=== PATIENT | female | born 1960 | race Caucasian/White ===

== ENCOUNTER 2023-02-28 18:31 | Outpatient (RCR) | payer BC, MEDICARE, SELFPAY | END 2023-03-24 23:59 | disposition home or self-care (01) | LOC: MM 18:31 | PROVIDERS: PCP Internal Medicine; Visit Provider Internal Medicine | DX: Z51.81 Encounter for therapeutic drug level monitoring (principal); Z79.01 Long term (current) use of anticoagulants | CPT/HCPCS: 85610; G0463 ==

== ENCOUNTER 2023-03-29 10:26 | Outpatient (RCR) | payer BC, MEDICARE, SELFPAY | END 2023-04-24 17:12 | disposition home or self-care (01) | LOC: MM 10:26 | PROVIDERS: PCP Internal Medicine; Visit Provider Internal Medicine | DX: Z51.81 Encounter for therapeutic drug level monitoring (principal); Z79.01 Long term (current) use of anticoagulants | CPT/HCPCS: 85610; G0463 ==

== ENCOUNTER 2023-04-25 09:53 | Outpatient (RCR) | payer BC, MEDICARE, SELFPAY | END 2023-05-25 17:45 | disposition home or self-care (01) | LOC: MM 09:53 | PROVIDERS: PCP Internal Medicine; Visit Provider Internal Medicine | DX: Z51.81 Encounter for therapeutic drug level monitoring (principal); Z79.01 Long term (current) use of anticoagulants | CPT/HCPCS: 85610; G0463 ==

== ENCOUNTER 2023-05-26 10:40 | Outpatient (RCR) | payer BC, MEDICARE, SELFPAY | END 2023-06-23 17:05 | disposition home or self-care (01) | LOC: MM 10:40 | PROVIDERS: PCP Internal Medicine; Visit Provider Internal Medicine | DX: Z51.81 Encounter for therapeutic drug level monitoring (principal); Z79.01 Long term (current) use of anticoagulants | CPT/HCPCS: 85610; G0463 ==

== ENCOUNTER 2023-06-16 19:31 | Emergency (ER) | payer BC, MEDICARE, SELFPAY ==
[2023-06-16 19:36] VITALS: BP 139/98; PULSE 91; RESP 16; TEMP 36.4; O2SAT 100; BMI 26.9
--- NOTE | 2023-06-16 19:44 | ED.EPISTAXI1 ---
HPI - Epistaxis General Chief Complaint: Epistaxis Stated Complaint: NOSEBLEED <2 HRS ON BLOOD THINNER Time Seen by Provider: 06/16/23 19:37 Source: patient Mode of arrival: walk-in History of Present Illness HPI Narrative: patient takes coumadin. Past history of nose bleeds. complains of runny nose from allergies and sneezing. Nose started bleeding about 2 hours ago. Started right nostril now coming through both. She has also swallowed blood and then vomited. No abdominal pain or headache Location: Yes right nares Related Data Home Medications Medication Instructions Recorded Confirmed acyclovir 400 mg tablet 400 mg PO .qhs 06/16/23 06/16/23 amitriptyline 100 mg tablet 100 mg PO .qhs 06/16/23 06/16/23 aripiprazole 10 mg tablet 10 mg PO .qhs 06/16/23 06/16/23 atorvastatin 10 mg tablet 10 mg PO QDAY 06/16/23 06/16/23 biotin 10,000 mcg-keratin 100 mg 1 tab PO QDAY 06/16/23 06/16/23 tablet (Biotin Plus Keratin) vuduruybkc-weylljlqefabo-ghxlzioe 1 cap PO Q6H PRN pain 06/16/23 06/16/23 50 mg-300 mg-40 mg capsule cholecalciferol (vitamin D3) 50 50 mcg PO DAILY 06/16/23 06/16/23 mcg (2,000 unit) capsule (Vitamin D3) coenzyme Q10 100 mg capsule (Co 100 mg PO BID 06/16/23 06/16/23 Q-10) cyanocobalamin (vitamin B-12) 1,000 mcg IM .monthly 06/16/23 06/16/23 1,000 mcg/mL injection solution cyclobenzaprine 10 mg tablet 10 mg PO Q12H PRN muscle spasm 06/16/23 06/16/23 fluticasone propionate 220 2 puff inhalation Q12H 06/16/23 06/16/23 mcg/actuation HFA aerosol inhaler (Flovent HFA) folic acid 400 mcg tablet 400 mcg PO DAILY 06/16/23 06/16/23 fremanezumab-vfrm 225 mg/1.5 mL 225 mg subcut .monthly 06/16/23 06/16/23 subcutaneous auto-injector (Ajovy) hydrochlorothiazide 12.5 mg tablet 12.5 mg PO QDAY 06/16/23 06/16/23 hydrocodone 5 mg-acetaminophen 325 1 tab PO Q12H PRN pain 06/16/23 06/16/23 mg tablet hydroxyzine HCl 25 mg tablet 25 mg PO .qhs 06/16/23 06/16/23 levothyroxine 125 mcg tablet 125 mcg PO .every morning 06/16/23 06/16/23 linaclotide 72 mcg capsule 72 mcg PO QDAY 06/16/23 06/16/23 (Linzess) lisinopril 5 mg tablet 5 mg PO QDAY 06/16/23 06/16/23 magnesium 200 mg tablet 400 mg PO DAILY 06/16/23 06/16/23 melatonin 10 mg capsule 10 mg PO DAILY 06/16/23 06/16/23 montelukast 10 mg tablet 10 mg PO QDAY 06/16/23 06/16/23 omeprazole 40 mg capsule,delayed 40 mg PO BID 06/16/23 06/16/23 release phentermine 37.5 mg tablet 37.5 mg PO QDAY 06/16/23 06/16/23 potassium chloride 10 mEq 20 meq PO BID 06/16/23 06/16/23 tablet,extended release(part/cryst) prasterone (dhea) 25 mg capsule 25 mg PO BID 06/16/23 06/16/23 (DHEA) pseudoephedrine HCl 30 mg tablet 30 mg PO QDAY 06/16/23 06/16/23 vilazodone 40 mg tablet 40 mg PO QDAY 06/16/23 06/16/23 vit C 250 mg-vit E 90 mg-zinc 40 1 tab PO BID 06/16/23 06/16/23 mg-copper 1 fr-srfvww-pbctve capsule (PreserVision AREDS-2) warfarin 1 mg tablet 1 mg PO .qtuesday 06/16/23 06/16/23 warfarin 2 mg tablet 2 mg PO QDAY 06/16/23 06/16/23 zinc 50 mg capsule 50 mg PO DAILY 06/16/23 06/16/23 Allergies Allergy/AdvReac Type Severity Reaction Status Date / Time Penicillins AdvReac Severe Anaphylaxis Verified 06/16/23 19:45 acetaminophen [From Percocet] AdvReac Intermediate Vomiting Verified 06/16/23 19:45 cephalexin [From Keflex] AdvReac Intermediate Hives Verified 06/16/23 19:45 doxycycline AdvReac Intermediate Hives Verified 06/16/23 19:45 iodine AdvReac Intermediate Hives Verified 06/16/23 19:45 morphine AdvReac Intermediate Vomiting Verified 06/16/23 19:45 oxycodone [From Percocet] AdvReac Intermediate Vomiting Verified 06/16/23 19:45 ciprofloxacin [From Cipro] AdvReac Mild Hives Verified 06/16/23 19:45 novicane AdvReac Intermediate Migraine Uncoded 06/16/23 19:45 Review of Systems ROS Status of ROS 10 or more systems reviewed and unremarkable except as noted in history and below [facility] PFS Social History Smoking status: Former smoker Exam Constitutional Vital Signs, click to edit/add: Last Vital Signs Temp 97.6 F 06/16/23 19:36 Pulse 88 06/16/23 21:25 Resp 16 06/16/23 21:25 BP 139/78 06/16/23 21:25 Pulse Ox 100 06/16/23 21:25 O2 Del Method Room Air 06/16/23 21:25 Common normals: no apparent distress, average body habitus, oriented x3, no limitations, healthy appearing and alert HENMT Other: nasal pincher in place Eye Common normals: EOMs intact bilaterally and conjunctivae normal Respiratory Common normals: normal respiratory effort, no retractions, no use of accessory muscles and clear to auscultation bilaterally Cardio Common normals: regular rate, regular rhythm, S1 normal heart sound and S2 normal heart sound Extremity Common normals: normal to inspection and full ROM Neuro Common normals: oriented x3, CN's II-XII intact bilaterally, moves all extremities, no focal motor deficits and no sensory deficits noted Psych Appearance: grossly normal Course Vital Signs Vital signs: Vital Signs Temperature 97.6 F 06/16/23 19:36 Pulse Rate 91 H 06/16/23 19:36 Respiratory Rate 16 06/16/23 19:36 Blood Pressure 139/98 H 06/16/23 19:36 Pulse Oximetry 100 06/16/23 19:36 Oxygen Delivery Method Room Air 06/16/23 19:36 Temperature 97.6 F 06/16/23 19:36 Pulse Rate 88 06/16/23 21:25 Respiratory Rate 16 06/16/23 21:25 Blood Pressure 139/78 06/16/23 21:25 Pulse Oximetry 100 06/16/23 21:25 Oxygen Delivery Method Room Air 06/16/23 21:25 MDM - Epistaxis MDM Narrative Medical decision making narrative: patient presents with acute nose bleed. Rhino rocket placed. Bleeding controlled. Labs demonstrated therapeutic INR of 2.36. She was also found to be hyponatremic. She does take HCTZ. Advised to have her sodium level rechecked early next week by her PCP Lab Data Labs: Lab Results 06/16/23 Range/Units 19:55 WBC 7.1 (4.0-11.0) 10^3/uL RBC 3.53 L (4.20-5.40) 10^6/uL Hgb 9.9 L (12.0-16.0) g/dL Hct 31.2 L (36.0-48.0) % MCV 88.4 (81.0-99.0) fL MCH 28.0 (26.7-34.0) pg MCHC 31.7 (29.9-35.2) g/dL RDW 13.4 (11.0-15.0) % Plt Count 378 (150-450) 10^3/uL MPV 8.7 L (9.5-13.5) fL Neut % (Auto) 74.9 (43.0-75.0) % Lymph % (Auto) 12.1 L (20.5-60.0) % [place] % (Auto) 9.2 (1.7-12.0) % Eos % (Auto) 2.1 (0.9-7.0) % Baso % (Auto) 1.3 (0.2-2.0) % Neut # (Auto) 5.3 (1.4-6.5) 10^3/uL Lymph # (Auto) 0.9 L (1.2-3.8) 10^3/uL [place] # (Auto) 0.7 (0.3-0.8) 10^3/uL Eos # (Auto) 0.2 (0.0-0.7) 10^3/uL Baso # (Auto) 0.1 (0.0-0.1) 10^3/uL Abs Immat Gran (auto) 0.03 (0.00-0.03) 10^3/uL Imm/Tot Granulo (auto) 0.4 (0.0-0.5) % PT 23.8 H (9.0-11.6) sec INR 2.36 Sodium 125 L (136-145) mmol/L Potassium 3.3 L (3.5-5.1) mmol/L Chloride 91 L (98-107) mmol/L Carbon Dioxide 29.6 (21.0-32.0) mmol/L Anion Gap 7.7 BUN 9.0 (7.0-18.0) mg/dL Creatinine 0.76 (0.55-1.02) mg/dL Est GFR ( Amer) >60 (>=60) Est GFR (Non-Af Amer) >60 (>=60) BUN/Creatinine Ratio 11.8 Glucose 95 (74-106) mg/dL Calcium 8.4 L (8.5-10.1) mg/dL Discharge Plan Discharge Chief Complaint: Epistaxis Clinical Impression: Epistaxis, Hyponatremia Patient Disposition: Home, Self-Care Prescriptions / Home Meds: No Action warfarin 2 mg tablet 2 mg PO QDAY Rx Instructions: 2mg everyday, 3mg every Monday warfarin 1 mg tablet 1 mg PO .qt Rx Instructions: Pt takes 1mg with 2mg for total of 3mg every Monday acyclovir 400 mg tablet 400 mg PO .qhs amitriptyline 100 mg tablet 100 mg PO .qhs aripiprazole 10 mg tablet 10 mg PO .qhs atorvastatin 10 mg tablet 10 mg PO QDAY uddwqimgwz-wrkaambuoqukj-oulw 50-300-40 mg capsule 1 cap PO Q6H PRN (Reason: pain) cyanocobalamin (vitamin B-12) 1,000 mcg/mL solution 1,000 mcg IM .monthly cyclobenzaprine 10 mg tablet 10 mg PO Q12H PRN (Reason: muscle spasm) fluticasone propionate [Flovent HFA] 220 mcg/actuation HFA aerosol inhaler 2 puff INHALATION Q12H Ajovy Autoinjector 225 mg/1.5 mL auto-injector 225 mg SUBCUT .monthly hydrochlorothiazide 12.5 mg tablet 12.5 mg PO QDAY hydrocodone-acetaminophen 5-325 mg tablet 1 tab PO Q12H PRN (Reason: pain) hydroxyzine HCl 25 mg tablet 25 mg PO .qhs levothyroxine 125 mcg tablet 125 mcg PO .every morning Linzess 72 mcg capsule 72 mcg PO QDAY Patient Comments: on empty stomach before a meal lisinopril 5 mg tablet 5 mg PO QDAY montelukast 10 mg tablet 10 mg PO QDAY omeprazole 40 mg capsule,delayed release(DR/EC) 40 mg PO BID phentermine 37.5 mg tablet 37.5 mg PO QDAY potassium chloride 10 mEq tablet,ER particles/crystals 20 meq PO BID vilazodone 40 mg tablet 40 mg PO QDAY Biotin Plus Keratin 10,000-100 mcg-mg tablet 1 tab PO QDAY Patient Comments: with supper folic acid 400 mcg tablet 400 mcg PO DAILY cholecalciferol (vitamin D3) [Vitamin D3] 50 mcg (2,000 unit) capsule 50 mcg PO DAILY melatonin 10 mg capsule 10 mg PO DAILY magnesium 200 mg tablet 400 mg PO DAILY PreserVision AREDS-2 250-90-40-1 mg capsule 1 tab PO BID coenzyme Q10 [Co Q-10] 100 mg capsule 100 mg PO BID prasterone (dhea) [DHEA] 25 mg capsule 25 mg PO BID zinc 50 mg capsule 50 mg PO DAILY pseudoephedrine HCl 30 mg tablet 30 mg PO QDAY Instructions: Nosebleed (ED), Hyponatremia (ED) Additional Instructions: have packing removed in 2 days. have your sodium level rechecked early next week Stand Alone Forms: Portal Instructions Referrals: Shaikh John MD [Primary Care Provider] - 1 week Procedures ED Procedure Instructions Procedures Procedures: nose bleed. nasal packing with Rhinorocket placed right nostril. Successful on first attempt. Patient monitored in the department for one hour after procedure and bleeding controlled. Discharged home. Advised to have packing removed in a couple of days as she is on coumadin
[2023-06-16 20:05] LABS: Basophils Absolute Auto 0.1 10^3/uL (0.0-0.1); Basophils Percent Auto 1.3 % (0.2-2.0); Eosinophils Absolute Auto 0.2 10^3/uL (0.0-0.7); Eosinophils Percent Auto 2.1 % (0.9-7.0); Hematocrit 31.2 % (36.0-48.0); Hemoglobin 9.9 g/dL (12.0-16.0); Immature Granulocytes Abs Auto 0.03 10^3/uL (0.00-0.03); Immature Granulocytes Pct Auto 0.4 % (0.0-0.5); Lymphocytes Absolute Auto 0.9 10^3/uL (1.2-3.8); Lymphocytes Percent Auto 12.1 % (20.5-60.0); Mean Corpuscular HGB Conc 31.7 g/dL (29.9-35.2); Mean Corpuscular Volume 88.4 fL (81.0-99.0); Mean Platelet Volume 8.7 fL (9.5-13.5); Monocytes Absolute Auto 0.7 10^3/uL (0.3-0.8); Monocytes Percent Auto 9.2 % (1.7-12.0); Neutrophils Absolute Auto 5.3 10^3/uL (1.4-6.5); Neutrophils Percent Auto 74.9 % (43.0-75.0); Platelet Count 378 10^3/uL (150-450); Red Blood Count 3.53 10^6/uL (4.20-5.40); Red Cell Distribution Width 13.4 % (11.0-15.0); White Blood Count 7.1 10^3/uL (4.0-11.0)
[2023-06-16 20:11] LABS: Anion Gap 7.7; BUN Creatinine Ratio 11.8; Calcium 8.4 mg/dL (8.5-10.1); Carbon Dioxide 29.6 mmol/L (21.0-32.0); Chloride 91 mmol/L (98-107); Estimated GFR (African America >60 (>=60); Estimated GFR (Non-African Ame >60 (>=60); Glucose 95 mg/dL (74-106); Potassium 3.3 mmol/L (3.5-5.1); Sodium 125 mmol/L (136-145)
[2023-06-16 21:02] LABS: INR 2.36; Prothrombin Time 23.8 sec (9.0-11.6)
--- NOTE | 2023-06-16 21:22 | PC.NURSE ---
Nose clamp removed and a 5.5 cm anterior Rapid Rhino nasal pack inserted by Dr Michelle. Pt tolerated procedure.
[2023-06-16 21:25] VITALS: BP 139/78; PULSE 88; RESP 16; O2SAT 100
[2023-06-16] MEDS: SULFAMETHOXAZOLE/TRIMETHOPRIM 800-160 MG TABLET 2 TAB PO (22:34)
[2023-06-16] MEDS: SULFAMETHOXAZOLE/TRIMETHOPRIM 800-160 MG TABLET 1 TAB PO (22:34)
== END 2023-06-16 22:36 | disposition home or self-care (01) ==
PROVIDERS: Emergency Provider Internal Medicine; PCP Internal Medicine
DX: R04.0 Epistaxis (principal); E87.1 Hypo-osmolality and hyponatremia; Z79.899 Other long term (current) drug therapy; Z79.01 Long term (current) use of anticoagulants; Z79.890 Hormone replacement therapy; Z87.891 Personal history of nicotine dependence
CPT/HCPCS: 30901; 36415; 80048; 85025; 85610; 99283

== ENCOUNTER 2023-06-18 11:05 | Emergency (ER) | payer BC, MEDICARE, SELFPAY ==
[2023-06-18 11:10] VITALS: BP 129/80; PULSE 127; RESP 16; TEMP 36.4; O2SAT 98; BMI 26.9
--- NOTE | 2023-06-18 11:18 | ED.GENADUL1 ---
HPI - General Adult General Chief complaint: Epistaxis Stated complaint: OTHER Time Seen by Provider: 06/18/23 11:15 Source: patient Mode of arrival: walk-in Limitations: no limitations History of Present Illness HPI narrative: 63-year-old female presented to have her right nasal packing removed. She was here a few days ago for nosebleed and was told to come back today to have it removed. She's had no problems. She does feel pressure but she's had no bleeding. No fever. Related Data Home Medications Medication Instructions Recorded Confirmed acyclovir 400 mg tablet 400 mg PO .qhs 06/16/23 06/16/23 amitriptyline 100 mg tablet 100 mg PO .qhs 06/16/23 06/16/23 aripiprazole 10 mg tablet 10 mg PO .qhs 06/16/23 06/16/23 atorvastatin 10 mg tablet 10 mg PO QDAY 06/16/23 06/16/23 biotin 10,000 mcg-keratin 100 mg 1 tab PO QDAY 06/16/23 06/16/23 tablet (Biotin Plus Keratin) qpjkfsbgmr-kgahlcvdmrvxj-jrqozlxa 1 cap PO Q6H PRN pain 06/16/23 06/16/23 50 mg-300 mg-40 mg capsule cholecalciferol (vitamin D3) 50 50 mcg PO DAILY 06/16/23 06/16/23 mcg (2,000 unit) capsule (Vitamin D3) coenzyme Q10 100 mg capsule (Co 100 mg PO BID 06/16/23 06/16/23 Q-10) cyanocobalamin (vitamin B-12) 1,000 mcg IM .monthly 06/16/23 06/16/23 1,000 mcg/mL injection solution cyclobenzaprine 10 mg tablet 10 mg PO Q12H PRN muscle spasm 06/16/23 06/16/23 fluticasone propionate 220 2 puff inhalation Q12H 06/16/23 06/16/23 mcg/actuation HFA aerosol inhaler (Flovent HFA) folic acid 400 mcg tablet 400 mcg PO DAILY 06/16/23 06/16/23 fremanezumab-vfrm 225 mg/1.5 mL 225 mg subcut .monthly 06/16/23 06/16/23 subcutaneous auto-injector (Ajovy) hydrochlorothiazide 12.5 mg tablet 12.5 mg PO QDAY 06/16/23 06/16/23 hydrocodone 5 mg-acetaminophen 325 1 tab PO Q12H PRN pain 06/16/23 06/16/23 mg tablet hydroxyzine HCl 25 mg tablet 25 mg PO .qhs 06/16/23 06/16/23 levothyroxine 125 mcg tablet 125 mcg PO .every morning 06/16/23 06/16/23 linaclotide 72 mcg capsule 72 mcg PO QDAY 06/16/23 06/16/23 (Linzess) lisinopril 5 mg tablet 5 mg PO QDAY 06/16/23 06/16/23 magnesium 200 mg tablet 400 mg PO DAILY 06/16/23 06/16/23 melatonin 10 mg capsule 10 mg PO DAILY 06/16/23 06/16/23 montelukast 10 mg tablet 10 mg PO QDAY 06/16/23 06/16/23 omeprazole 40 mg capsule,delayed 40 mg PO BID 06/16/23 06/16/23 release phentermine 37.5 mg tablet 37.5 mg PO QDAY 06/16/23 06/16/23 potassium chloride 10 mEq 20 meq PO BID 06/16/23 06/16/23 tablet,extended release(part/cryst) prasterone (dhea) 25 mg capsule 25 mg PO BID 06/16/23 06/16/23 (DHEA) pseudoephedrine HCl 30 mg tablet 30 mg PO QDAY 06/16/23 06/16/23 vilazodone 40 mg tablet 40 mg PO QDAY 06/16/23 06/16/23 vit C 250 mg-vit E 90 mg-zinc 40 1 tab PO BID 06/16/23 06/16/23 mg-copper 1 hu-hgffcs-dojvsk capsule (PreserVision AREDS-2) warfarin 1 mg tablet 1 mg PO .qtuesday 06/16/23 06/16/23 warfarin 2 mg tablet 2 mg PO QDAY 06/16/23 06/16/23 zinc 50 mg capsule 50 mg PO DAILY 06/16/23 06/16/23 Allergies Allergy/AdvReac Type Severity Reaction Status Date / Time Penicillins AdvReac Severe Anaphylaxis Verified 06/16/23 19:45 acetaminophen [From Percocet] AdvReac Intermediate Vomiting Verified 06/16/23 19:45 cephalexin [From Keflex] AdvReac Intermediate Hives Verified 06/16/23 19:45 doxycycline AdvReac Intermediate Hives Verified 06/16/23 19:45 iodine AdvReac Intermediate Hives Verified 06/16/23 19:45 morphine AdvReac Intermediate Vomiting Verified 06/16/23 19:45 oxycodone [From Percocet] AdvReac Intermediate Vomiting Verified 06/16/23 19:45 ciprofloxacin [From Cipro] AdvReac Mild Hives Verified 06/16/23 19:45 novicane AdvReac Intermediate Migraine Uncoded 06/16/23 19:45 Review of Systems ROS Narrative A ten point review of systems is negative except as noted above. PFSH PFSH Social History Smoking status: Former smoker Exam Narrative Exam Narrative: Nurses note and vital signs reviewed and patient is not hypoxic. General: The patient appears well and in no apparent distress. Patient is resting comfortably on cart. Skin: Warm, dry, no pallor noted. There is no rash noted. Head: Normocephalic, atraumatic Eye: Normal conjunctiva, no drainage Ears, Nose, Mouth, and Throat: oral mucosa is moist. inflatable nasal packing present in the right nare Cardiovascular: Regular Rate and Rhythm Respiratory: Patient is in no distress, no accessory muscle use Back: non-tender GI: nontender Musculoskeletal: The patient has no evidence of calf tenderness, no pitting edema, symmetrical pulses noted bilaterally Neurological: A&O, normal speech Psychiatric: Cooperative Constitutional Vital Signs, click to edit/add: Last Vital Signs Temp 97.5 F L 06/18/23 11:10 Pulse 127 H 06/18/23 11:10 Resp 16 06/18/23 11:10 BP 129/80 06/18/23 11:10 Pulse Ox 98 06/18/23 11:10 O2 Del Method Room Air 06/18/23 11:10 Course Vital Signs Vital signs: Vital Signs Temperature 97.5 F L 06/18/23 11:10 Pulse Rate 127 H 06/18/23 11:10 Respiratory Rate 16 06/18/23 11:10 Blood Pressure 129/80 06/18/23 11:10 Pulse Oximetry 98 06/18/23 11:10 Oxygen Delivery Method Room Air 06/18/23 11:10 Temperature 97.5 F L 06/18/23 11:10 Pulse Rate 127 H 09/24/23 11:10 Respiratory Rate 16 06/18/23 11:10 Blood Pressure 129/80 06/18/23 11:10 Pulse Oximetry 98 06/18/23 11:10 Oxygen Delivery Method Room Air 06/18/23 11:10 Medical Decision Making MDM Narrative Medical decision making narrative: I've removed the nasal packing and she's had no further bleeding and is released home. Differential Diagnosis Differential Diagnosis: packing removal Medical Records Medical records reviewed: Yes I reviewed the patient's medical records Discharge Plan Discharge Chief Complaint: Epistaxis Clinical Impression: Encounter for removal of nasal packing Patient Disposition: Home, Self-Care Time of Disposition Decision: :27 Condition: Good Mode of Transportation: Private Vehicle Prescriptions / Home Meds: No Action warfarin 2 mg tablet 2 mg PO QDAY Rx Instructions: 2mg everyday, 3mg every Monday warfarin 1 mg tablet 1 mg PO .qt Rx Instructions: Pt takes 1mg with 2mg for total of 3mg every Monday acyclovir 400 mg tablet 400 mg PO .qhs amitriptyline 100 mg tablet 100 mg PO .qhs aripiprazole 10 mg tablet 10 mg PO .qhs atorvastatin 10 mg tablet 10 mg PO QDAY hofqsgfqmx-wogdydwxifzgk-jlsn 50-300-40 mg capsule 1 cap PO Q6H PRN (Reason: pain) cyanocobalamin (vitamin B-12) 1,000 mcg/mL solution 1,000 mcg IM .monthly cyclobenzaprine 10 mg tablet 10 mg PO Q12H PRN (Reason: muscle spasm) fluticasone propionate [Flovent HFA] 220 mcg/actuation HFA aerosol inhaler 2 puff INHALATION Q12H Ajovy Autoinjector 225 mg/1.5 mL auto-injector 225 mg SUBCUT .monthly hydrochlorothiazide 12.5 mg tablet 12.5 mg PO QDAY hydrocodone-acetaminophen 5-325 mg tablet 1 tab PO Q12H PRN (Reason: pain) hydroxyzine HCl 25 mg tablet 25 mg PO .qhs levothyroxine 125 mcg tablet 125 mcg PO .every morning Linzess 72 mcg capsule 72 mcg PO QDAY Patient Comments: on empty stomach before a meal lisinopril 5 mg tablet 5 mg PO QDAY montelukast 10 mg tablet 10 mg PO QDAY omeprazole 40 mg capsule,delayed release(DR/EC) 40 mg PO BID phentermine 37.5 mg tablet 37.5 mg PO QDAY potassium chloride 10 mEq tablet,ER particles/crystals 20 meq PO BID vilazodone 40 mg tablet 40 mg PO QDAY Biotin Plus Keratin 10,000-100 mcg-mg tablet 1 tab PO QDAY Patient Comments: with supper folic acid 400 mcg tablet 400 mcg PO DAILY cholecalciferol (vitamin D3) [Vitamin D3] 50 mcg (2,000 unit) capsule 50 mcg PO DAILY melatonin 10 mg capsule 10 mg PO DAILY magnesium 200 mg tablet 400 mg PO DAILY PreserVision AREDS-2 250-90-40-1 mg capsule 1 tab PO BID coenzyme Q10 [Co Q-10] 100 mg capsule 100 mg PO BID prasterone (dhea) [DHEA] 25 mg capsule 25 mg PO BID zinc 50 mg capsule 50 mg PO DAILY pseudoephedrine HCl 30 mg tablet 30 mg PO QDAY Instructions: Nosebleed (ED) Stand Alone Forms: Portal Instructions Referrals: Shaikh John MD [Primary Care Provider] - 1 week
[2023-06-18 11:46] VITALS: BP 139/78; PULSE 98; RESP 16; TEMP 36.8; O2SAT 98
== END 2023-06-18 11:47 | disposition home or self-care (01) ==
PROVIDERS: Emergency Provider Emergency Medicine; PCP Internal Medicine
DX: Z46.89 Encounter for fitting and adjustment of other specified devices (principal); Z79.899 Other long term (current) drug therapy; Z79.01 Long term (current) use of anticoagulants; Z87.891 Personal history of nicotine dependence
CPT/HCPCS: 99282

== ENCOUNTER 2023-06-26 03:41 | Outpatient (RCR) | payer BC, MEDICARE, SELFPAY | END 2023-07-25 17:47 | disposition home or self-care (01) | LOC: MM 03:41 | PROVIDERS: PCP Internal Medicine; Visit Provider Internal Medicine | DX: Z51.81 Encounter for therapeutic drug level monitoring (principal); Z79.01 Long term (current) use of anticoagulants | CPT/HCPCS: 85610; G0463 ==

== ENCOUNTER 2023-07-10 12:16 | Outpatient (OUT) | payer BC, MEDICARE, SELFPAY ==
--- NOTE | 2023-07-10 13:30 | PM.CN ---
Consult Note: HPI Data of Consult Patient: known to practice within the last 3 years Consult date: 07/10/23 Requesting Physician: Meet Harp MD Primary Care Provider: [place] DO Consult Narrative Reason for consult: midback pain Narrative: 63yof who presents for assessment. Worsening midback pain that radiates laterally. Previously underwent a thoracic trigger point injection, which provided no relief. No advanced imaging available for review. Continues in chiropractic therapy and provider directed home exercise program for >6 weeks, with limited benefit. Denies adverse med side effects. Utilizes norco and flexeril, with some relief. cc:: CC: Meet Harp MD Review of Systems ROS Status of ROS 10 or more systems reviewed and unremarkable except as noted in history and below PFSH PFSH Social History Smoking status: Former smoker Meds Home Medications and Allergies Home Medications Medication Instructions Recorded Confirmed Type acyclovir 400 mg tablet 400 mg PO .qhs 06/16/23 06/16/23 History amitriptyline 100 mg tablet 100 mg PO .qhs 06/16/23 06/16/23 History aripiprazole 10 mg tablet 10 mg PO .qhs 06/16/23 06/16/23 History atorvastatin 10 mg tablet 10 mg PO QDAY 06/16/23 06/16/23 History biotin 10,000 mcg-keratin 100 mg 1 tab PO QDAY 06/16/23 06/16/23 History tablet (Biotin Plus Keratin) grmhhicmjb-kdaqankwmdefz-dqenpjda 1 cap PO Q6H PRN pain 06/16/23 06/16/23 History 50 mg-300 mg-40 mg capsule cholecalciferol (vitamin D3) 50 50 mcg PO DAILY 06/16/23 06/16/23 History mcg (2,000 unit) capsule (Vitamin D3) coenzyme Q10 100 mg capsule (Co 100 mg PO BID 06/16/23 06/16/23 History Q-10) cyanocobalamin (vitamin B-12) 1,000 mcg IM .monthly 06/16/23 06/16/23 History 1,000 mcg/mL injection solution cyclobenzaprine 10 mg tablet 10 mg PO Q12H PRN muscle spasm 06/16/23 06/16/23 History fluticasone propionate 220 2 puff inhalation Q12H 06/16/23 06/16/23 History mcg/actuation HFA aerosol inhaler (Flovent HFA) folic acid 400 mcg tablet 400 mcg PO DAILY 06/16/23 06/16/23 History fremanezumab-vfrm 225 mg/1.5 mL 225 mg subcut .monthly 06/16/23 06/16/23 History subcutaneous auto-injector (Ajovy) hydrochlorothiazide 12.5 mg tablet 12.5 mg PO QDAY 06/16/23 06/16/23 History hydrocodone 5 mg-acetaminophen 325 1 tab PO Q12H PRN pain 06/16/23 06/16/23 History mg tablet hydroxyzine HCl 25 mg tablet 25 mg PO .qhs 06/16/23 06/16/23 History levothyroxine 125 mcg tablet 125 mcg PO .every morning 06/16/23 06/16/23 History linaclotide 72 mcg capsule 72 mcg PO QDAY 06/16/23 06/16/23 History (Linzess) lisinopril 5 mg tablet 5 mg PO QDAY 06/16/23 06/16/23 History magnesium 200 mg tablet 400 mg PO DAILY 06/16/23 06/16/23 History melatonin 10 mg capsule 10 mg PO DAILY 06/16/23 06/16/23 History montelukast 10 mg tablet 10 mg PO QDAY 06/16/23 06/16/23 History omeprazole 40 mg capsule,delayed 40 mg PO BID 06/16/23 06/16/23 History release phentermine 37.5 mg tablet 37.5 mg PO QDAY 06/16/23 06/16/23 History potassium chloride 10 mEq 20 meq PO BID 06/16/23 06/16/23 History tablet,extended release(part/cryst) prasterone (dhea) 25 mg capsule 25 mg PO BID 06/16/23 06/16/23 History (DHEA) pseudoephedrine HCl 30 mg tablet 30 mg PO QDAY 06/16/23 06/16/23 History vilazodone 40 mg tablet 40 mg PO QDAY 06/16/23 06/16/23 History vit C 250 mg-vit E 90 mg-zinc 40 1 tab PO BID 06/16/23 06/16/23 History mg-copper 1 qd-jlrqbg-cwduei capsule (PreserVision AREDS-2) warfarin 1 mg tablet 1 mg PO .qtuesday 06/16/23 06/16/23 History warfarin 2 mg tablet 2 mg PO QDAY 06/16/23 06/16/23 History zinc 50 mg capsule 50 mg PO DAILY 06/16/23 06/16/23 History Allergies Allergy/AdvReac Type Severity Reaction Status Date / Time Penicillins AdvReac Severe Anaphylaxis Verified 06/16/23 19:45 acetaminophen [From Percocet] AdvReac Intermediate Vomiting Verified 06/16/23 19:45 cephalexin [From Keflex] AdvReac Intermediate Hives Verified 06/16/23 19:45 doxycycline AdvReac Intermediate Hives Verified 06/16/23 19:45 iodine AdvReac Intermediate Hives Verified 06/16/23 19:45 morphine AdvReac Intermediate Vomiting Verified 06/16/23 19:45 oxycodone [From Percocet] AdvReac Intermediate Vomiting Verified 06/16/23 19:45 ciprofloxacin [From Cipro] AdvReac Mild Hives Verified 06/16/23 19:45 novicane AdvReac Intermediate Migraine Uncoded 06/16/23 19:45 Exam Narrative Exam Narrative: Psych-alert and oriented x 3. Attentive and appropriate, constitutionally normal, displays normal mood and affect per situation. There are no obvious deficits in memory, reasoning, or intellect.? Skin-no obvious rashes, bruising, erythema noted to the patient's area of pain.? Extremities- extremities are warm with minimal edema and palpable pulses. Thoracic-tenderness to palpation noted in the thoracic spine and paraspinal musculature. Pain is elicited with flexion, extension, and lateral rotation of the lumbar spine. Range of motion is diminished with these motions. Facet loading maneuvers are positive.? Sensory-no notable sensory deficits to touch or pinprick in all dermatomal distributions with the exception to decreased sensation to the bilateral T5, 6, 7 dermatomal distribution Coordination remains intact.? Gait remains non-antalgic. Assessment and Plan Assessment and Plan (1) Disc displacement, thoracic: (2) Thoracic stenosis: Plan 63yof who presents for assessment. Worsening radiating midback pain. Suspect spinal pathology, given her symptoms and failure to respond to trigger point injection. Given worsening symptoms and failure to respond to >6 weeks of conservative management, will have her undergo thoracic MRI without contrast. She is in agreement. Medications were reviewed, no changes made. Follow up after imaging.
== END 2023-07-10 12:17 | disposition home or self-care (01) ==
LOC: PM 12:16
PROVIDERS: PCP Family Medicine; Visit Provider Anesthesiology
DX: M51.24 Other intervertebral disc displacement, thoracic region (principal); M48.04 Spinal stenosis, thoracic region
CPT/HCPCS: G0463

== ENCOUNTER 2023-07-18 12:25 | Outpatient (OUT) | payer BC, MEDICARE, SELFPAY ==
--- NOTE | 2023-07-18 12:31 | MR_ITS ---
The [place] [id number] Patient Name: MADAN PERRY MRN: [id number] date: 1960 Sex: F Assigned Patient Location: [facility] Current Patient Location: [facility] Accession/Order Number: [id number] Exam Date: 07/18/2023 12:50 Report Date: 07/18/2023 14:24 At the request of: SERAFIN EVERETT Procedure: MR thoracic spine wo con MR thoracic spine wo con, 07/18/2023 12:50 PM EDT INDICATION: Thoracic Disc Displacement, Thoracic Stenosis COMPARISON: There is no appropriate prior study for comparison. TECHNIQUE: Multiplanar, multisequential MRI images of thoracic spine were obtained without contrast. FINDINGS: There is normal physiologic thoracic kyphosis. The vertebral heights are preserved. The conus medullaris is at the level of L1. No signal abnormality within the spinal cord is noted. At the level of T3-T4, T4-T5 and T5-T6 and T6-T7, there is disc bulge. No neuroforaminal narrowing and no canal stenosis. At the level of T10-T11, T11-T12 , there is disc bulge. Mild bilateral neuroforaminal narrowing and no canal stenosis. MR/MR thoracic spine wo con IMPRESSION: Mild degenerative changes of thoracic spine. Electronically authenticated by: LEONARD MARMOLEJO Date: 07/18/2023 14:24
== END 2023-07-18 12:26 | disposition home or self-care (01) ==
LOC: RAD 12:26
PROVIDERS: PCP Family Medicine; Visit Provider Anesthesiology
DX: M51.24 Other intervertebral disc displacement, thoracic region (principal); M48.04 Spinal stenosis, thoracic region
CPT/HCPCS: 72146

== ENCOUNTER 2023-07-24 11:19 | Outpatient (OUT) | payer BC, MEDICARE, SELFPAY ==
--- NOTE | 2023-07-24 12:51 | P.CN_ITS ---
Consult Note: HPI Data of Consult Patient: known to practice within the last 3 years Consult date: 07/24/23 Requesting Physician: Meet Harp MD Primary Care Provider: LAVERNE LAKE, DO Consult Narrative Reason for consult: midback pain Narrative: 63yof who presents for assessment. persistent mid back pain that radiates laterally. mri reviewed, which shows multiple levels of disc bulging and stenosis, worst at t10-11 and t11-12. continues in provider directed home exercise program >6 weeks, with limited benefit. continues norco and flexeril. denies adverse med side effects. cc:: CC: Meet Harp MD Review of Systems ROS Status of ROS 10 or more systems reviewed and unremarkable except as noted in history and below PFSH PFS Medical History Colitis ?K52.9 - Noninfective gastroenteritis and colitis, unspecified (ICD-10) DVT (deep venous thrombosis) ?I82.409 - Acute embolism and thrombosis of unspecified deep veins of unspecified lower extremity (ICD-10) Surgical History Delivery by section H/O colonoscopy ?Z98.890 - Other specified postprocedural states (ICD-10) History of appendectomy ?Z90.49 - Acquired absence of other specified parts of digestive tract (ICD- 10) History of bladder suspension procedure ?Z98.890 - Other specified postprocedural states (ICD-10) ?Z87.448 - Personal history of other diseases of urinary system (ICD-10) History of carpal tunnel release ?Z98.890 - Other specified postprocedural states (ICD-10) History of decompression of ulnar nerve ?Z98.890 - Other specified postprocedural states (ICD-10) History of esophagogastroduodenoscopy (EGD) ?Z98.890 - Other specified postprocedural states (ICD-10) History of hernia repair ?Z98.890 - Other specified postprocedural states (ICD-10) ?Z87.19 - Personal history of other diseases of the digestive system (ICD-10) History of hysterectomy ?Z90.710 - Acquired absence of both cervix and uterus (ICD-10) History of laparoscopy ?Z98.890 - Other specified postprocedural states (ICD-10) Hx of cholecystectomy ?Z90.49 - Acquired absence of other specified parts of digestive tract (ICD-10) Social History Smoking status: Former smoker Meds Home Medications and Allergies Home Medications Medication Instructions Recorded Confirmed Type acyclovir 400 mg tablet 400 mg PO DAILY 06/16/23 07/17/23 History amitriptyline 100 mg tablet 100 mg PO BEDTIME 06/16/23 07/17/23 History aripiprazole 10 mg tablet 10 mg PO BEDTIME 06/16/23 07/17/23 History atorvastatin 10 mg tablet 10 mg PO QDAY 06/16/23 07/17/23 History biotin 10,000 mcg-keratin 100 mg 1 tab PO QDAY 06/16/23 07/17/23 History tablet (Biotin Plus Keratin) vkusjogrdw-tawrdfishcqeh-hbhlfutk 1 cap PO Q6H PRN pain 06/16/23 07/17/23 History 50 mg-300 mg-40 mg capsule cholecalciferol (vitamin D3) 50 50 mcg PO DAILY 06/16/23 07/17/23 History mcg (2,000 unit) capsule (Vitamin D3) coenzyme Q10 100 mg capsule (Co 100 mg PO BID 06/16/23 07/17/23 History Q-10) cyanocobalamin (vitamin B-12) 1,000 mcg IM .monthly 06/16/23 07/17/23 History 1,000 mcg/mL injection solution cyclobenzaprine 10 mg tablet 10 mg PO Q12H PRN muscle spasm 06/16/23 07/17/23 History fluticasone propionate 220 2 puff inhalation Q12H 06/16/23 07/17/23 History mcg/actuation HFA aerosol inhaler (Flovent HFA) folic acid 400 mcg tablet 400 mcg PO DAILY 06/16/23 07/17/23 History fremanezumab-vfrm 225 mg/1.5 mL 225 mg subcut .monthly 06/16/23 07/17/23 History subcutaneous auto-injector (Ajovy) hydrochlorothiazide 12.5 mg tablet 12.5 mg PO QDAY 06/16/23 07/17/23 History hydrocodone 5 mg-acetaminophen 325 1 tab PO Q12H PRN pain 06/16/23 07/17/23 History mg tablet hydroxyzine HCl 25 mg tablet 25 mg PO BEDTIME 06/16/23 07/17/23 History levothyroxine 125 mcg tablet 125 mcg PO .every morning 06/16/23 07/17/23 History linaclotide 72 mcg capsule 72 mcg PO QDAY 06/16/23 07/17/23 History (Linzess) lisinopril 5 mg tablet 5 mg PO QDAY 06/16/23 07/17/23 History magnesium 200 mg tablet 400 mg PO DAILY 06/16/23 07/17/23 History melatonin 10 mg capsule 10 mg PO DAILY 06/16/23 07/17/23 History montelukast 10 mg tablet 10 mg PO QDAY 06/16/23 07/17/23 History omeprazole 40 mg capsule,delayed 40 mg PO BID 06/16/23 07/17/23 History release phentermine 37.5 mg tablet 37.5 mg PO QDAY 06/16/23 07/17/23 History potassium chloride 10 mEq 20 meq PO BID 06/16/23 07/17/23 History tablet,extended release(part/cryst) prasterone (dhea) 25 mg capsule 25 mg PO BID 06/16/23 07/17/23 History (DHEA) pseudoephedrine HCl 30 mg tablet 30 mg PO QDAY 06/16/23 07/17/23 History vilazodone 40 mg tablet 40 mg PO QDAY 06/16/23 07/17/23 History vit C 250 mg-vit E 90 mg-zinc 40 1 tab PO BID 06/16/23 07/17/23 History mg-copper 1 oy-uysiwh-yhwsku capsule (PreserVision AREDS-2) warfarin 1 mg tablet 1 mg PO .qtuesday 06/16/23 07/17/23 History warfarin 2 mg tablet 2 mg PO QDAY 06/16/23 07/17/23 History zinc 50 mg capsule 50 mg PO DAILY 06/16/23 07/17/23 History alprazolam 0.25 mg tablet 0.25 mg PO DAILY PRN anxiety 07/17/23 07/17/23 History aspirin 81 mg tablet,delayed 81 mg PO DAILY 07/17/23 07/17/23 History release (Adult Aspirin Regimen) hydrocortisone 2.5 % topical cream 1 applic topical BID PRN allergic 07/17/23 07/17/23 History reaction meclizine 12.5 mg tablet 12.5 mg PO BID PRN dizziness 07/17/23 07/17/23 History ondansetron HCl 4 mg tablet 4 mg PO Q12H PRN nausea and 07/17/23 07/17/23 History vomiting Allergies Allergy/AdvReac Type Severity Reaction Status Date / Time Penicillins AdvReac Severe Anaphylaxis Verified 06/16/23 19:45 cephalexin [From Keflex] AdvReac Intermediate Hives Verified 06/16/23 19:45 doxycycline AdvReac Intermediate Hives Verified 06/16/23 19:45 iodine AdvReac Intermediate Hives Verified 06/16/23 19:45 morphine AdvReac Intermediate Vomiting Verified 06/16/23 19:45 oxycodone [From Percocet] AdvReac Intermediate Vomiting Verified 06/16/23 19:45 ciprofloxacin [From Cipro] AdvReac Mild Hives Verified 06/16/23 19:45 novicane AdvReac Intermediate Migraine Uncoded 06/16/23 19:45 Exam Narrative Exam Narrative: Psych-alert and oriented x 3.? Attentive and appropriate, constitutionally normal, displays normal mood and affect per situation.? There are no obvious deficits in memory, reasoning, or intellect.? Skin-no obvious rashes, bruising, or erythema noted to the patient's area of pain.? Extremities-upper extremities are warm with minimal edema and palpable pulses. Thoracic - tenderness to palpation noted in the thoracic spine and paraspinal musculature.? Pain is elicited with flexion, extension, and lateral rotation of the cervical spine.? Range of motion is diminished due to pain. Facet loading maneuvers are positi ve.? Strength-unremarkable and within normal limits Sensory-no notable sensory deficits in the bilateral upper extremities to touch or pinprick with the exception to decreased sensation to the bilateral T9, 10, 11 dermatomal distribution.? Coordination remains intact.? Gait remains non-antalgic. Assessment and Plan Assessment and Plan (1) Thoracic stenosis: (2) Disc displacement, thoracic: (3) Thoracic radiculopathy: Plan 63yof who presents for assessment. failed physical and medical modalities, as noted. imaging reviewed, as noted. given symptoms and imaging findings, prudent to attempt bilateral t10-11 tfesi under fluoroscopic guidance. depending on response, may benefit from bilateral t11-12 tfesi. she is in agreement. medications reviewed, no changes. follow up after procedure.
== END 2023-07-24 11:20 | disposition home or self-care (01) ==
LOC: PM 11:20
PROVIDERS: PCP Family Medicine; Visit Provider Anesthesiology
DX: M48.04 Spinal stenosis, thoracic region (principal); M51.14 Intervertebral disc disorders with radiculopathy, thoracic region
CPT/HCPCS: G0463

== ENCOUNTER 2023-07-26 00:32 | Outpatient (RCR) | payer BC, MEDICARE, SELFPAY | END 2023-08-24 16:53 | disposition home or self-care (01) | LOC: MM 00:32 | PROVIDERS: PCP Family Medicine; Visit Provider Internal Medicine | DX: Z51.81 Encounter for therapeutic drug level monitoring (principal); Z79.01 Long term (current) use of anticoagulants | CPT/HCPCS: 85610; G0463 ==

== ENCOUNTER 2023-07-31 09:22 | Day surgery (SDC) | payer BC, MEDICARE, SELFPAY ==
[2023-07-31 10:10] VITALS: BP 111/78; PULSE 97; RESP 16; TEMP 36.6; O2SAT 97
[2023-07-31 10:40] VITALS: BP 124/65; PULSE 88; RESP 18; O2SAT 93
[2023-07-31] MEDS: 0.9 % SODIUM CHLORIDE 10 ML INJ (10:41)
[2023-07-31] MEDS: DEXAMETHASONE SOD PHOS 10 MG/ML VIAL INJ (10:41)
[2023-07-31] MEDS: LIDOCAINE HCL 2% PF 100 MG/5 ML VIAL 3 ML INJ (10:41)
[2023-07-31] MEDS: IOHEXOL 240 MG/ML - 10 ML VIAL 12 MG INJ (10:41)
[2023-07-31] MEDS: BUPIVACAINE HCL 0.25% PF 25 MG/10 ML VIAL INJ (10:41)
--- NOTE | 2023-07-31 10:42 | W.PM.PROCNOT ---
Date of procedure: 07/31/23 Pre-op diagnosis: M54.14 Post-op diagnosis: same as pre-op Procedure: Procedure: Bilateral T10-11 transforaminal epidural steroid injection Medications: Bupivacaine 0.5% 2cc, dexamethasone 10mg The patient was seen and examined in the preoperative holding area.? Informed consent was obtained and placed on the chart.? Patient was brought to the medical procedure unit and placed in the prone position where a timeout was completed verifying the correct patient, procedure site, position, and planned special equipment using sterile aseptic technique.? Under direct fluoroscopic visualization a 25-gauge Quincke tipped spinal needle was advanced at level left T10-11 to the designated neural foramen where contrast dye was injected to show adequate spread.? There was no evidence of vascular or adverse uptake.? Epidural spread was appreciated.? The above-mentioned injectate was then placed in a 1.5 mL aliquot preceded by negative aspiration.? The needle was removed. The same procedure, at the same level, was completed on the opposite side. ? Patient was taken to the postprocedural recovery area and monitored for an appropriate length of time before found suitable for discharge in the accompaniment of a responsible adult. Anesthesia: Local Surgeon: Meet Harp Pathology: none sent Condition: stable Disposition: no change
[2023-07-31 10:43] VITALS: BP 124/65; PULSE 86; RESP 18; O2SAT 94
== END 2023-07-31 10:47 | disposition home or self-care (01) ==
PROVIDERS: PCP Family Medicine; Visit Provider Anesthesiology
DX: M54.14 Radiculopathy, thoracic region (principal)
CPT/HCPCS: 64479; J1100; Q9966

== ENCOUNTER 2023-08-21 06:30 | Day surgery (SDC) | payer BC, MEDICARE, SELFPAY ==
[2023-08-21 06:55] LABS: INR 1.96
[2023-08-21 07:06] VITALS: BP 130/85; PULSE 101; RESP 16; TEMP 36.2; O2SAT 99
[2023-08-21 07:35] VITALS: BP 136/77; PULSE 90; RESP 18; O2SAT 94
--- NOTE | 2023-08-21 07:37 | W.PM.PROCNOT ---
Date of procedure: 08/21/23 Pre-op diagnosis: M54.14 Post-op diagnosis: same as pre-op Procedure: Procedure: Bilateral T11-12 transforaminal epidural steroid injection Medications: Bupivacaine 0.5% 2cc, dexamethasone 10mg The patient was seen and examined in the preoperative holding area.? Informed consent was obtained and placed on the chart.? Patient was brought to the medical procedure unit and placed in the prone position where a timeout was completed verifying the correct patient, procedure site, position, and planned special equipment using sterile aseptic technique.? Under direct fluoroscopic visualization a 25-gauge Quincke tipped spinal needle was advanced at level left T11-12 to the designated neural foramen where contrast dye was injected to show adequate spread.? There was no evidence of vascular or adverse uptake.? Epidural spread was appreciated.? The above-mentioned injectate was then placed in a 1.5 mL aliquot preceded by negative aspiration.? The needle was removed. The same procedure, at the same level, was completed on the opposite side. ? Patient was taken to the postprocedural recovery area and monitored for an appropriate length of time before found suitable for discharge in the accompaniment of a responsible adult. Anesthesia: Local Surgeon: Meet Harp Pathology: none sent Condition: stable Disposition: no change
[2023-08-21 07:39] VITALS: BP 125/75; PULSE 72; RESP 18; O2SAT 94
[2023-08-21] MEDS: 0.9 % SODIUM CHLORIDE 10 ML INJ (07:42)
[2023-08-21] MEDS: DEXAMETHASONE SOD PHOS 10 MG/ML VIAL INJ (07:43)
[2023-08-21] MEDS: BUPIVACAINE HCL 0.25% PF 25 MG/10 ML VIAL INJ (07:43)
[2023-08-21] MEDS: LIDOCAINE HCL 2% PF 100 MG/5 ML VIAL 3 ML INJ (07:43)
[2023-08-21] MEDS: IOHEXOL 240 MG/ML - 10 ML VIAL 72 MG INJ (07:43)
[2023-08-21 08:19] VITALS: BP 92/64; PULSE 79; RESP 16; O2SAT 94
--- NOTE | 2023-08-21 08:19 | PC.NURSE ---
After getting dressed pt sat down on the stretcher and began not responding to verbal commands. Pt was assisted to lying down and vitals were obtained. Pt then began opening her eyes and stating she just didnt feel well. Pt was given water and continued to rest until she felt able to sit in wheelchair. Pt was then observed and given juice and crackers. After 15 minutes pt stated she felt well enough to go home. Pt was taken to her car in a wheelchair
== END 2023-08-21 07:57 | disposition home or self-care (01) ==
PROVIDERS: PCP Family Medicine; Visit Provider Anesthesiology
DX: M54.14 Radiculopathy, thoracic region (principal); Z79.01 Long term (current) use of anticoagulants
CPT/HCPCS: 36415; 64479; 85610; J1100; Q9966

== ENCOUNTER 2023-08-25 09:39 | Outpatient (RCR) | payer BC, MEDICARE, SELFPAY | END 2023-09-22 15:21 | disposition home or self-care (01) | LOC: MM 09:39 | PROVIDERS: PCP Family Medicine; Visit Provider Internal Medicine | DX: Z51.81 Encounter for therapeutic drug level monitoring (principal); Z79.01 Long term (current) use of anticoagulants | CPT/HCPCS: 85610; G0463 ==

== ENCOUNTER 2023-08-31 08:18 | Outpatient (OUT) | payer BC, MEDICARE, SELFPAY ==
--- NOTE | 2023-08-31 08:31 | PM.CN ---
Consult Note: HPI Data of Consult Patient: known to practice within the last 3 years Consult date: 07/24/23 Requesting Physician: Etta Moya NP Primary Care Provider: LAVERNE LAKE, DO Consult Narrative Reason for consult: midback pain Narrative: 63yof who presents for assessment. persistent mid back pain. mri reviewed previously with Dr Harp, which shows multiple levels of disc bulging and stenosis, worst at t10-11 and t11-12. continues in provider directed home exercise program >6 weeks, with limited benefit. continues norco and flexeril. denies adverse med side effects. Recent bilateral T10/11 and T11/12 TFESIs provided >50% relief for a few hours after the procedure, but no sustained relief. Patient would like to discuss alternative options at this point in time. REMEDIOS 42% with moderate to severe pain, pain with ADLs, pain interfering with sleep and social life. cc:: CC: Etta Moya NP Review of Systems ROS Status of ROS 10 or more systems reviewed and unremarkable except as noted in history and below Musculoskeletal Reports: back pain PFSH PFSH Medical History Presence of vena cava filter ?Z95.828 - Presence of other vascular implants and grafts (ICD-10) Hypertension ?I10 - Essential (primary) hypertension (ICD-10) Osteoarthritis ?M19.90 - Unspecified osteoarthritis, unspecified site (ICD-10) Hypothyroid ?E03.9 - Hypothyroidism, unspecified (ICD-10) Stage 3 chronic kidney disease ?N18.30 - Chronic kidney disease, stage 3 unspecified (ICD-10) Colitis ?K52.9 - Noninfective gastroenteritis and colitis, unspecified (ICD-10) DVT (deep venous thrombosis) ?I82.409 - Acute embolism and thrombosis of unspecified deep veins of unspecified lower extremity (ICD-10) Surgical History History of carpal tunnel release ?Z98.890 - Other specified postprocedural states (ICD-10) History of bladder suspension procedure ?Z98.890 - Other specified postprocedural states (ICD-10) ?Z87.448 - Personal history of other diseases of urinary system (ICD-10) History of hernia repair ?Z98.890 - Other specified postprocedural states (ICD-10) ?Z87.19 - Personal history of other diseases of the digestive system (ICD-10) Hx of cholecystectomy ?Z90.49 - Acquired absence of other specified parts of digestive tract (ICD-10) H/O colonoscopy ?Z98.890 - Other specified postprocedural states (ICD-10) History of esophagogastroduodenoscopy (EGD) ?Z98.890 - Other specified postprocedural states (ICD-10) History of decompression of ulnar nerve ?Z98.890 - Other specified postprocedural states (ICD-10) History of appendectomy ?Z90.49 - Acquired absence of other specified parts of digestive tract (ICD-10) History of hysterectomy ?Z90.710 - Acquired absence of both cervix and uterus (ICD-10) Delivery by section History of laparoscopy ?Z98.890 - Other specified postprocedural states (ICD-10) Social History Smoking status: Former smoker Meds Home Medications and Allergies Home Medications Medication Instructions Recorded Confirmed Type acyclovir 400 mg tablet 400 mg PO DAILY 06/16/23 08/21/23 History amitriptyline 100 mg tablet 100 mg PO BEDTIME 06/16/23 08/21/23 History aripiprazole 10 mg tablet 10 mg PO BEDTIME 06/16/23 08/21/23 History atorvastatin 10 mg tablet 10 mg PO QDAY 06/16/23 08/21/23 History biotin 10,000 mcg-keratin 100 mg 1 tab PO QDAY 06/16/23 08/21/23 History tablet (Biotin Plus Keratin) utrqtosaws-ilznioskggzbn-zvjqjcla 1 cap PO Q6H PRN pain 06/16/23 08/21/23 History 50 mg-300 mg-40 mg capsule cholecalciferol (vitamin D3) 50 50 mcg PO DAILY 06/16/23 08/21/23 History mcg (2,000 unit) capsule (Vitamin D3) coenzyme Q10 100 mg capsule (Co 100 mg PO BID 06/16/23 08/21/23 History Q-10) cyanocobalamin (vitamin B-12) 1,000 mcg IM .monthly 06/16/23 08/21/23 History 1,000 mcg/mL injection solution cyclobenzaprine 10 mg tablet 10 mg PO Q12H PRN muscle spasm 06/16/23 08/21/23 History fluticasone propionate 220 2 puff inhalation Q12H 06/16/23 08/21/23 History mcg/actuation HFA aerosol inhaler (Flovent HFA) folic acid 400 mcg tablet 400 mcg PO DAILY 06/16/23 08/21/23 History fremanezumab-vfrm 225 mg/1.5 mL 225 mg subcut .monthly 06/16/23 08/21/23 History subcutaneous auto-injector (Ajovy) hydrochlorothiazide 12.5 mg tablet 12.5 mg PO QDAY 06/16/23 08/21/23 History hydrocodone 5 mg-acetaminophen 325 1 tab PO Q12H PRN pain 06/16/23 08/21/23 History mg tablet hydroxyzine HCl 25 mg tablet 25 mg PO BEDTIME 06/16/23 08/21/23 History levothyroxine 125 mcg tablet 125 mcg PO .every morning 06/16/23 08/21/23 History linaclotide 72 mcg capsule 72 mcg PO QDAY 06/16/23 08/21/23 History (Linzess) lisinopril 5 mg tablet 5 mg PO QDAY 06/16/23 08/21/23 History magnesium 200 mg tablet 400 mg PO DAILY 06/16/23 08/21/23 History melatonin 10 mg capsule 10 mg PO DAILY 06/16/23 08/21/23 History montelukast 10 mg tablet 10 mg PO QDAY 06/16/23 08/21/23 History omeprazole 40 mg capsule,delayed 40 mg PO BID 06/16/23 08/21/23 History release phentermine 37.5 mg tablet 37.5 mg PO QDAY 06/16/23 08/21/23 History potassium chloride 10 mEq 20 meq PO BID 06/16/23 08/21/23 History tablet,extended release(part/cryst) prasterone (dhea) 25 mg capsule 25 mg PO BID 06/16/23 08/21/23 History (DHEA) pseudoephedrine HCl 30 mg tablet 30 mg PO QDAY 06/16/23 08/21/23 History vilazodone 40 mg tablet 40 mg PO QDAY 06/16/23 07/31/23 History vit C 250 mg-vit E 90 mg-zinc 40 1 tab PO BID 06/16/23 08/21/23 History mg-copper 1 xj-hvrewh-rxhqnh capsule (PreserVision AREDS-2) warfarin 1 mg tablet 1 mg PO .qtuesday 06/16/23 08/21/23 History warfarin 2 mg tablet 2 mg PO QDAY 06/16/23 08/21/23 History zinc 50 mg capsule 50 mg PO DAILY 06/16/23 08/21/23 History alprazolam 0.25 mg tablet 0.25 mg PO DAILY PRN anxiety 07/17/23 08/21/23 History aspirin 81 mg tablet,delayed 81 mg PO DAILY 07/17/23 08/21/23 History release (Adult Aspirin Regimen) hydrocortisone 2.5 % topical cream 1 applic topical BID PRN allergic 07/17/23 08/21/23 History reaction meclizine 12.5 mg tablet 12.5 mg PO BID PRN dizziness 07/17/23 08/21/23 History ondansetron HCl 4 mg tablet 4 mg PO Q12H PRN nausea and 07/17/23 08/21/23 History vomiting Allergies Allergy/AdvReac Type Severity Reaction Status Date / Time Penicillins AdvReac Severe Anaphylaxis Verified 08/21/23 06:59 cephalexin [From Keflex] AdvReac Intermediate Hives Verified 08/21/23 06:59 doxycycline AdvReac Intermediate Hives Verified 08/21/23 06:59 iodine AdvReac Intermediate Hives Verified 08/21/23 06:59 morphine AdvReac Intermediate Vomiting Verified 08/21/23 06:59 oxycodone [From Percocet] AdvReac Intermediate Vomiting Verified 08/21/23 06:59 ciprofloxacin [From Cipro] AdvReac Mild Hives Verified 08/21/23 06:59 novicane AdvReac Intermediate Migraine Uncoded 08/21/23 06:59 Exam Narrative Exam Narrative: Psych-alert and oriented x 3.? Attentive and appropriate, constitutionally normal, displays normal mood and affect per situation.? There are no obvious deficits in memory, reasoning, or intellect.? Skin-no obvious rashes, bruising, or erythema noted to the patient's area of pain.? Extremities-upper extremities are warm with minimal edema and palpable pulses. Thoracic - tenderness to palpation noted in the thoracic spine and paraspinal musculature.? Pain is elicited with flexion, extension, and lateral rotation of the cervical spine.? Range of motion is diminished due to pain. Facet loading maneuvers are positive.? Strength-unremarkable and within normal limits Sensory-no notable sensory deficits in the bilateral upper extremities to touch or pinprick Coordination remains intact.? Gait remains non-antalgic. Back & Pelvis Thoracic spine/upper back: ROM limited and pain with ROM Other: positive facet loading, axial upper back pain without radiculopathy Assessment and Plan Assessment and Plan (1) Thoracic spondylosis: (2) Thoracic back pain: (3) Spasm of thoracic back muscle: (4) Warfarin anticoagulation: (5) Chronic, continuous use of opioids: Assessment and Plan: I feel these medications are improving the patient's quality of life and allow them to tolerate activities of daily living as well as participate in recreational activity.? The patient does not report intolerable side effects. The patient is NOT opioid naive and non-pharmacologic and non-opioid treatment has failed to significantly relieve the patient's pain and improve functionality. The patient has a diagnosis that is related to a somatic or visceral pain etiology. ? ?? I reviewed with the patient the potential risks and side effects with the use of? opioid medications including but not limited to respiratory depression,? sedation, and even . I verified the patient has access to naloxone should? these effects occur. I advised the patient to avoid the use of any other? sedation substances including alcohol, THC, and benzodiazepines while? taking opioid medications due to the risk of compounding side effects and? detrimental outcomes. I reviewed the [employer], pain treatment agreement, urine? drug screen, and opioid start talking forms. The patient was advised to let? their family know they had Naloxone in case they would need to administer? the medication.? ?? A drug screen was completed within the last year, and no aberrancies were noted regarding their use of controlled substances. The patient understands they are subject to the terms and conditions of the pain contract that they have signed. ? ?? I have checked an [place] report on this patient today and there are no aberrancies noted in the prescribing history.? Plan bilateral T10-11 T11-12 MBB x2 working towards thermal RFA continue current medications narcan previously discussed and prescribed TENS unit for upper back muscle spasms and pain f/u 1 week after each injection
== END 2023-08-31 08:19 | disposition home or self-care (01) ==
LOC: PM 08:19
PROVIDERS: PCP Family Medicine; Visit Provider Nurse Practitioner
DX: M47.814 Spondylosis without myelopathy or radiculopathy, thoracic region (principal); M54.6 Pain in thoracic spine; M62.830 Muscle spasm of back; Z79.01 Long term (current) use of anticoagulants; Z79.891 Long term (current) use of opiate analgesic
CPT/HCPCS: G0463

== ENCOUNTER 2023-09-12 14:16 | Outpatient (OUT) | payer BC, MEDICARE, SELFPAY ==
--- NOTE | 2023-09-12 14:28 | XR_ITS ---
The [address] [address] Patient Name: MADAN PERRY MRN: [id number] date: 1960 Sex: F Assigned Patient Location: [facility] Current Patient Location: Accession/Order Number: [id number] Exam Date: 09/12/2023 14:30 Report Date: 09/13/2023 08:56 At the request of: ANDRI GIEDRAITIS Procedure: XR lumbar spine 6V w bending PROCEDURE: XR lumbar spine 6V w bending DATE: 09/12/2023 1:30 PM [employer] COMPARISONS: None. CLINICAL INDICATION: 63 years Female Lumbar Spondylosis FINDINGS: There is no evidence of fractures or other acute osseous abnormalities. There is mild to moderate multilevel intervertebral disc space degenerative changes There is moderate diffusely scattered facet degenerative changes especially of the mid and lower lumbar spine. There is 3 to 4 mm of anterior subluxation of L4 on L5 on flexion views. This is not as well-visualized on neutral views and extension views. There may be a small amount of dynamic subluxation at this level. An inferior vena caval filter is identified. XR/XR lumbar spine 6V w bending IMPRESSION: These radiographic views of the lumbar spine show mild to moderate degenerative spondylosis. There may be minimal dynamic subluxation at L4-L5. This is subtle. No definite acute findings. Electronically authenticated by: BERNARDINO SAVAGE Date: 09/13/2023 08:56
== END 2023-09-12 14:17 | disposition home or self-care (01) ==
LOC: RAD 14:18
PROVIDERS: PCP Family Medicine; Visit Provider Anesthesiology
DX: M47.816 Spondylosis without myelopathy or radiculopathy, lumbar region (principal)
CPT/HCPCS: 72114

== ENCOUNTER 2023-09-25 02:38 | Outpatient (RCR) | payer BC, MEDICARE, SELFPAY | END 2023-10-25 17:05 | disposition home or self-care (01) | LOC: MM 02:38 | PROVIDERS: PCP Family Medicine; Visit Provider Internal Medicine | DX: Z51.81 Encounter for therapeutic drug level monitoring (principal); Z79.01 Long term (current) use of anticoagulants | CPT/HCPCS: 85610; G0463 ==

== ENCOUNTER 2023-09-30 23:03 | Emergency (ER) | payer BC, MEDICARE, SELFPAY ==
[2023-09-30 23:10] VITALS: BP 147/76; PULSE 101; RESP 16; TEMP 36.4; O2SAT 97; BMI 29.2
--- OUTSIDE RECORDS SUMMARY | 2023-09-30 23:12 | XMS_ITS | CCD ---
Author Name Unknown Address [address] [place] [address] Organization [facility] Care Team Providers Care Rn Icu Name Role Phone Adilia Mederos Unavailable HannaLilian bernstein Unavailable Yesy Covarrubias OT Unavailable Aliza Aguilar MD Unavailable LAKE, DR TANK Aguillon Primary Care Unavailable LAKE, DR TANK Aguillon Consulting Unavailable LAKE, DR TANK Aguillon Attending Unavailable LAKE, DR TANK Aguillon Admitting Unavailable LAKE, DR TANK Aguillon Primary Care Unavailable LAKE, DR TANK Aguillon Consulting Unavailable LAKE, DR TANK Aguillon Attending Unavailable LAKE, DR TANK Aguillon Admitting Unavailable ZIEBER, DR RODRI Salvador Consulting Unavailable LAKE, DR TANK Aguillon Primary Care Unavailable RAMIREZ ., DR ORLY Bran Admitting Unavailable PANDYA .RAHUL Consulting Unavailable RAMIREZ ., DR ORLY Bran Attending Unavailable LAKE, DR TANK Aguillon Primary Care Unavailable ABBAS, DR RASMUSSEN Admitting Unavailable ABBAS, DR RASMUSSEN Consulting Unavailable ABBAS, DR RASMUSSEN Attending Unavailable NEFCY, PETER Consulting Unavailable LAKE, DR TANK Aguillon Consulting Unavailable LAKE, DR TANK Aguillon Attending Unavailable LAKE, DR TANK Aguillon Admitting Unavailable LAKE, DR TANK Aguillon Primary Care Unavailable FAWWAAbdifatah, DUARTE H Admitting Unavailable LAKE, DR TANK Aguillon Primary Care Unavailable FAWCHERELLE, H Attending Unavailable LAKE, DR TANK Aguillon Attending Unavailable LAKE, DR TANK Aguillon Primary Care Unavailable LAKE, DR TANK Aguillon Admitting Unavailable FAWWAAbdifatah, H Admitting Unavailable FASHAIKH MCGUIRE H Attending Unavailable LAKE, DR TANK Aguillon Primary Care Unavailable FAWCHERELLE, DUARTE H Attending Unavailable LAKE, DR TANK Aguillon Primary Care Unavailable FAWWAD, DUARTE H Admitting Unavailable FAWWAD, DUARTE H Attending Unavailable LAKE, DR TANK Aguillon Primary Care Unavailable FAWWAD, DUARTE H Admitting Unavailable FAWWAD, DUARTE H Attending Unavailable LAKE, DR TANK Aguillon Primary Care Unavailable FAWWAD, DUARTE H Admitting Unavailable FAWWAD, DUARTE H Admitting Unavailable FAWWAD, DUARTE H Attending Unavailable LAKE, DR TANK Aguillon Primary Care Unavailable FAWWAD, DUARTE H Admitting Unavailable FAWWAD, DUARTE H Attending Unavailable LAKE, DR TANK Aguillon Primary Care Unavailable FAWWAD, DUARTE H Attending Unavailable LAKE, DR TANK Aguillon Primary Care Unavailable FAWWAD, DUARTE H Admitting Unavailable FAWWAD, DUARTE H Attending Unavailable LAKE, DR TANK Aguillon Primary Care Unavailable FAWWAD, DUARTE H Admitting Unavailable LAKE, DR TANK Aguillon Attending Unavailable LAKE, DR TANK Aguillon Primary Care Unavailable LAKE, DR TANK Aguillon Admitting Unavailable WEST, DR MARTINEZ Almazan Consulting Unavailable LAKE, DR TANK Aguillon Consulting Unavailable FAWWAD, DUARTE H Admitting Unavailable FAWWAD, DUARTE H Attending Unavailable LAKE, DR TANK Aguillon Primary Care Unavailable LAKE, DR TANK Aguillon Primary Care Unavailable ABBAS, DR RASMUSSEN Admitting Unavailable ABBAS, DR RASMUSSEN Attending Unavailable LAKE, DR TANK Aguillon Primary Care Unavailable ABBAS, DR RASMUSSEN Admitting Unavailable ABBAS, DR RASMUSSEN Consulting Unavailable ABBAS, DR RASMUSSEN Attending Unavailable FAWWAD, DUARTE H Admitting Unavailable FAWWAD, DUARTE H Attending Unavailable LAKE, DR TANK Aguillon Primary Care Unavailable Marci MASON, Yesy Unavailable Aliza Aguilar MD. Unavailable LakeDO Fu A Primary Care Provider Aliza Aguilar Attending Provider Aliza Aguilar Admitting Unavailable Aliza Aguilar Attending Unavailable LakeTank A Primary Care Unavailable PROVIDER, UNKNOWN Admitting Unavailable PROVIDER, UNKNOWN Attending Unavailable PROVIDER, UNKNOWN Attending Unavailable PROVIDER, UNKNOWN Admitting Unavailable ALIZA AGUILAR Referring Unavailable PROVIDER, UNKNOWN Admitting Unavailable PROVIDER, UNKNOWN Attending Unavailable Giedraitis , Meet Shipley Attending Unavailable Giedraitis , Meet Shipley Attending Unavailable Giedraitis , Meet Shipley Attending Unavailable Gieditis , Meet Shipley Attending Unavailable Allergies Allergy Classification Reported Allergen(s) Allergy Type Date of Onset Reaction(s) Facility (3 sources) Acetaminophen / oxyCODONE Drug Allergy stomach upset [employer] [facility] Other (3 sources) Adhesive Tape Propensity to adverse reactions rash [facility] Other (2 sources) Cephalexin Drug Allergy anaphylaxis [facility] Other (9 sources) Erythromycin; Translations: [ERYTHROMYCIN] Drug Allergy 02-01-20 08 [facility] Iodine; Translations: [iodine] Drug Allergy 01-31-20 13 rash [facility] (3 sources) Latex Propensity to adverse reactions rash [facility] Other (3 sources) Penicillin G Benzathine Drug allergy anaphylaxis [facility] Other (3 sources) Procaine Drug Allergy headaches [facility] Other (2 sources) Cephalexin; Translations: [Keflex] Drug Allergy 01-31-20 13 anaphylaxis [facility] (1 source) Novocain Drug allergy Unknown [facility] Other (6 sources) Acetaminophen; Translations: [ACETAMINOPHEN] Drug Allergy 02-01-20 08 Vomiting [facility] (6 sources) Acetaminophen / oxyCODONE; Translations: [OXYCODONE-ACETA MINOPHEN] Drug Allergy 12-22-19 06 Vomiting [facility] (7 sources) Acetaminophen / oxyCODONE; Translations: [Percocet] Drug Allergy 06-09-20 16 Vomiting [facility] (6 sources) Acetaminophen / Propoxyphene; Translations: [BALACET] Drug Allergy 12-22-19 06 Other [facility] Work Phone: (6 sources) acetaminophen / propoxyphene; Translations: [PROPOXYPHENE N-APAP] Drug Allergy 02-01-20 08 Other [facility] (6 sources) Ciprofloxacin; Translations: [CIPROFLOXACIN] Drug Allergy 12-22-19 06 Other, Rash [facility] (6 sources) Doxycycline; Translations: [DOXYCYCLINE] Drug Allergy 01-24-20 Itching [facility] (6 sources) Penicillin G; Translations: [PENICILLIN G POTASSIUM] Drug Allergy 02-01-20 08 Anaphylactic Shock [facility] (6 sources) Penicillins; Translations: [PENICILLINS] Propensity to adverse reactions to drug 09-03-20 13 [facility] ([facility] Quinolones (Antibiotic); Translations: [QUINOLONES] Propensity to adverse reactions to drug 03-31-20 08 Respiratory Problems [facility] Work Phone: (6 sources) Sulfonamides (Antibiotic); Translations: [SULFA ANTIBIOTICS] Propensity to adverse reactions to drug 02-01-20 08 [facility] ([facility]) Bandage Tape; Translations: [BANDAGE TAPE] Propensity to adverse reactions 09-03-20 13 Rash [facility] (6 sources) Erythromycin Base; Translations: [ERYTHROMYCIN BASE] Propensity to adverse reactions to drug 01-24-20 Other [facility] (6 sources) Iodides; Translations: [IODIDES] Propensity to adverse reactions to drug 10-31-19 14 Hives [facility] (6 sources) Other (Review Comments!); Translations: [OTHER (REVIEW COMMENTS!)] Propensity to adverse reactions to drug 07-22-20 19 Agitation [facility] Work Phone: (1 source) Ciprofloxacin Drug Allergy [facility] (1 source) Iodine (And Iodine Containting Drugs) Drug allergy (disorder) 01-31-[address] [facility] (1 source) Latex Drug allergy (disorder) 01-31-[address] [facility] (1 source) Morphine Drug Allergy 06-09-[address] [facility] (1 source) Penicillins Drug allergy (disorder) 01-31-[address] [facility] (1 source) Sulfonamides (Antibiotic) Drug allergy (disorder) 01-31-[address] [facility] (1 source) Darvocet-N 100 Drug allergy (disorder) 01-31-[address] [facility] (1 source) E.E.S. Drug allergy (disorder) 01-31-[address] [facility] Medications Current Medications Medication Drug Class(es) Dates Sig (Normalized) Sig (Original) acetaminophen 300 mg / butalbital 50 mg / caffeine 40 mg oral capsule (11 sources) Barbiturate, Central Nervous System Stimulant, Methylxanthine Sshqexdshh-EITN-Tp ffeine 50-300-40 MG CAPS Take by mouth daily as needed. 0 Active take 1 capsule by mo uth every four hours Wwedtrvuzl-CWJF-Uexsznzq 50-325-40 MG 1 capsule as needed Orally every 4 hrs Not-Taking Fioricet Active acetaminophen 325 mg / HYDROcodone bitartrate 5 mg oral tablet (10 sources) Opioid Agonist take 1 tablet by mouth once hydrocodone-acetaminophen (NORCO) 5-325 mg per tablet Take 1 Tablet by mouth. 0 Active HYDROcodone-Acet aminophen 7.5-300 MG Orally Not-Taking [place] Active acyclovir 400 mg oral tablet (8 sources) Herpesvirus Nucleoside Analog DNA Polymerase Inhibitor, Herpes Simplex Virus Nucleoside Analog DNA Polymerase Inhibitor, Herpes Zoster Virus Nucleoside Analog DNA Polymerase Inhibitor take 1 tablet by mouth once daily acyclovir (ZOVIRAX) 400 MG tablet Take 400 mg by mouth daily. 0 Active take 1 tablet by lisa th every twelve hours Acyclovir 400 MG 1 tablet Orally Twice a day for 10 day(s) Active Aimovig (3 sources) Aimovig Active ALPRAZolam 0.5 mg oral tablet (8 sources) Benzodiazepine take 1 tablet by mouth twice daily as needed ALPRAZolam (XANAX) 0.5 MG tablet Take 0.5 mg by mouth 2 times daily as needed. 0 Active ALPRAZolam Not-T aking Amitriptyline (3 sources) Tricyclic Antidepressant Amitriptyline HCl Active atorvastatin 10 mg oral tablet (4 sources) HMG-CoA Reductase Inhibitor take 1 tablet by mouth once daily atorvastatin (LIPITOR) 10 MG tablet Take 10 mg by mouth daily. 0 Active Calcium (1 source) Phosphate Binder, Calcium Calcium Active Cequa (3 sources) Cequa Active citalopram 20 mg oral tablet (8 sources) Serotonin Reuptake Inhibitor take 1 tablet by mouth once daily citalopram (CELEXA) 20 MG tablet Indications: Brachial neuritis or radiculitis Take 20 mg by mouth daily. 0 Active CeleXA Active cyclobenzaprine (3 sources) Muscle Relaxant Cyclobenzaprine HCl Active Cyclobenzaprine HCl Not-Taking fexofenadine (5 sources) Histamine-1 Receptor Antagonist Fexofenadine HCl (DI ORAL) Take by mouth daily. 0 Active 120 actuat fluticasone propionate 0.044 mg/actuat metered dose inhaler (7 sources) Corticosteroid take 2 puff(s) by mouth twice daily fluticasone (FLOVENT HFA) 44 MCG/ACT inhaler Inhale 2 Puffs by mouth 2 times daily. 0 Active Flovent Diskus A ctive hydroCHLOROthiazide 12.5 mg oral capsule (7 sources) Thiazide Diuretic take 1 capsule by mouth once daily hydrochlorothiazide (MICROZIDE) 12.5 MG capsule Take 12.5 mg by mouth daily. 0 Active take 1 tablet by lisa every twenty-four hours hydroCHLOROthiazide 25 MG 1 tablet Orall y Once a day for 30 day(s) Not-Taking hydrOXYzine (3 sources) Antihistamine hydrOXYzine HCl Active Lactobacillus acidophilus (1 source) Acidophilus Acti ve levocetirizine (1 source) Histamine-1 Receptor Antagonist Xyzal Active levothyroxine sodium 0.1 mg oral tablet (8 sources) l-Thyroxine levothyroxine (S YNTHROID) 100 MCG tablet Indications: Brachial neuritis or radiculitis Take 125 mcg by mouth daily. 0 Active take 1 tablet by mouth once laura y levothyroxine (SYNTHROID) 100 MCG tablet Indications: Brachial neuritis or radiculitis Take 100 mcg by mouth daily. 0 Active Synthroid Active linaclotide 0.072 mg oral capsule (7 sources) Guanylate Cyclase-C Agonist take 1 capsule by mouth once daily linaclotide (Linzess) 72 MCG CAPS capsule Take 72 mcg by mouth daily. 0 Active Linzess Active Lisinopril (6 sources) Angiotensin Converting Enzyme Inhibitor LISINOPRIL ORAL Take by mouth. 0 Active Lisinopril Activ e methylPREDNISolone 4 mg oral tablet (3 sources) Corticosteroid Start: 05-09-2022 methylPREDNISo lone 4 MG as directed Orally Once a day for 6 days Apr, Active Start: 06-22-2021 methylPREDNISo lone 4 MG as directed Orally Once a day for 6 days May, Active montelukast 10 mg oral tablet (8 sources) Leukotriene Receptor Antagonist take 1 tablet by mouth once daily montelukast (SINGULAIR) 10 MG tablet Indications: Brachial neuritis or radiculitis Take 10 mg by mouth daily. 0 Active Montelukast Sodi um Active omeprazole 20 mg delayed release oral capsule (8 sources) Proton Pump Inhibitor take 1 capsule by mouth once daily omeprazole (PRILOSEC) 20 MG capsule Take 20 mg by mouth daily. 0 Active 12 hr orphenadrine citrate 100 mg extended release oral tablet (8 sources) Muscle Relaxant Orphenadrine Cit rate CR 100 MG TB12 Take by mouth 2 times daily. 0 Active take 1 tablet by lisa th every twelve hours at bedtime Orphenadrine Citrate 100 MG 1 tablet at bedtime Orally every 12 hrs Active Phentermine (2 sources) Sympathomimetic Amine Anorectic Phentermine HCl Active Potassium Chloride (8 sources) Potassium Chlori de (KLOR-CON ORAL) Indications: Brachial neuritis or radiculitis Take by mouth 3 times daily. 0 Active Klor-Con M20 Act annamaria topiramate 50 mg oral tablet (7 sources) take 1 tablet by lisa th at bedtime topiramate (TOPAMAX) 50 MG tablet Take 50 mg by mouth at bedtime. 0 Active End: 06-16-2023 Topiramate ER (TROKENDI XR) 100 MG CP24 Take 150 mg by mouth. 0 06/16/2023 Discontinued 1 ml triamcinolone acetonide 40 mg/ml injection (1 source) Corticosteroid Start: 08-25-2023 End: 08-26-2023 triamcinolone acetonide (KENALOG-40) 40 MG/ML injection vilazodone hydrochloride 40 mg oral tablet (7 sources) take 1 tablet by mouth once daily Vilazodone HCl 40 MG TABS Take 40 mg by mouth daily. 0 Active Viibryd Active vitamin b12 1 mg oral tablet (6 sources) Vitamin B12 cyanocobalamin 1 000 MCG tablet Take 1,000 mcg by mouth every 28 days. 0 Active Cyanocobalamin A ctive Vitamin D3 (1 source) Vitamin D3 Activ e Warfarin (8 sources) Vitamin K Antagonist Warfarin So dium (COUMADIN ORAL) Indications: Brachial neuritis or radiculitis Take by mouth daily. Followed in coumadin clinic [place], [place] 0 Active take 1 tablet by mouth two times weekly Warfarin Sodium 3 MG 1 tablet Orally Two times a Week for 30 day(s) Active Completed/Discontinued Medications Medication Drug Class(es) Dates Sig (Normalized) Sig (Original) Di-D 24 Hour (3 sources) Di-D 24 Sukhjinder r Not-Taking eszopiclone 3 mg oral tablet (3 sources) take 1 tablet by mouth every twenty-four hours Lunesta 3 MG 1 tablet immediately before bedtime Orally Once a day Not-Taking HYDROcodone / Ibuprofen (3 sources) Opioid Agonist, Nonsteroidal Anti-inflammatory Drug HYDROcodone-Ibupr ofen Not-Taking Levothyroxine Sodium unknown (3 sources) take 1 tablet by mouth once daily in the morning naloxone hydrochloride 40 mg/ml nasal spray (4 sources) Opioid Antagonist Start: 07-22-2019 End: 06-16-2023 naloxone 4 mg/0.1 mL nasal liquid Instill 1 [place] into one nostril (alternate sides) as needed. 1 spray as a single dose in one nostril. May repeat 1 spray every 2-3min in alternating nostrils until medical assistance is available. 1 Each 3 04/06/2020 06/16/2023 Discontinued nitrofurantoin, macrocrystals 25 mg / nitrofurantoin, monohydrate 75 mg oral capsule (3 sources) Nitrofuran Antibacterial Start: 12-18-2018 take 1 capsule by mouth every twelve hours Macrobid 100 MG 1 capsule with food Orally every 12 hrs for 5 days Nov, Not-Taking phenazopyridine hydrochloride 200 mg oral tablet (3 sources) Start: 12-18-2018 take 1 tablet by mouth every eight hours Pyridium 200 MG 1 tablet after meals Orally Three times a day for 2 day(s) Nov, Not-Taking promethazine hydrochloride 25 mg oral tablet (3 sources) Phenothiazine Phenergan 25mg 25mg as dircted by mouth Not-Taking suvorexant 20 mg oral tablet (2 sources) Orexin Receptor Antagonist End: 06-16-2023 take 1 tablet by mouth at bedtime Suvorexant (BELSOMRA) 20 MG TABS Take by mouth at bedtime. 0 06/16/2023 Discontinued Problems Active Problems Problem Classification Problem Date Documented Da te Episodic/Chronic Osteoarthritis (16 sources) Degenerative joint disease of thumb; Translations: [Primary osteoarthritis, unspecified hand] Onset: 02-01-2008 07-25-2018 Chronic Other aftercare (5 sources) Encounter for therapeutic drug level monitoring; Translations: [ENC THERAPEUTC DRUG LEVL MONITORING] Onset: 01-21-2023 Episodic Other aftercare (1 source) half-way (current) use of anticoagulants; Translations: [PHONE ENGINEER CURRNT USE ANTICOAGULANTS] Onset: 02-22-2023 Episodic Other connective tissue disease (1 source) Other specified soft tissue disorders; Translations: [OTHER SPEC SOFT TISSUE DISORDERS] Onset: 02-11-2023 Episodic Other connective tissue disease (2 sources) Pain of left hand; Translations: [Pain in left hand] 06-16-2023 Episodic Other connective tissue disease (1 source) Pain in left hand; Translations: [Pain in left hand] Onset: 06-16-2023 Episodic Other diseases of veins and lymphatics (1 source) Venous insufficiency (chronic) (peripheral); Translations: [VENOUS INSUFF CHRONIC PERIPHERAL] Onset: 02-11-2023 Episodic Other gastrointestinal disorders (1 source) Incontinence of feces; Translations: [Full incontinence of feces] Episodic Other nervous system disorders (1 source) Other specified mononeuropathies; Translations: [Other specified mononeuropathies] Onset: 07-20-2023 Chronic Other screening for suspected conditions (not mental disorders or infectious disease) (4 sources) Encounter for screening mammogram for malignant neoplasm of breast; Translations: [ENC SCR MAMMO MALIG NEOPLASM BREAST] Onset: 12-19-2022 Episodic Peripheral and visceral atherosclerosis (4 sources) Peripheral vascular disease, unspecified; Translations: [PERIPHERAL VASCULAR DISEASE UNS] Onset: 02-07-2023 Chronic Phlebitis; thrombophlebitis and thromboembolism (1 source) Chronic embolism and thrombosis of unspecified deep veins of unspecified lower extremity; Translations: [CHR EMB THROMB UNS DP VN UNS LW EXT] Onset: 06-27-2022 Chronic Phlebitis; thrombophlebitis and thromboembolism (5 sources) Acute embolism and thrombosis of unspecified deep veins of unspecified lower extremity; Translations: [AC EMBO THROMB UNS DP VN UNS LW EXT] Onset: 12-26-2022 Episodic Residual codes; unclassified (1 source) Asymptomatic menopausal state; Translations: [ASYMPTOMATIC MENOPAUSAL STATE] Onset: 12-21-2022 Episodic Residual codes; unclassified (1 source) Family history of malignant neoplasm of breast; Translations: [FAMILY HX MALIG NEOPLASM OF BREAST] Onset: 12-21-2022 Episodic Residual codes; unclassified (1 source) Family history of malignant neoplasm of trachea, bronchus and lung; Translations: [FAM HX MALIG NEOPLSM TRACH BRON LNG] Onset: 12-21-2022 Episodic Residual codes; unclassified (1 source) Family history of other malignant neoplasms of lymphoid, hematopoietic and related tissues; Translations: [FAM HX OTH MAL JO ANN LYMPH HEMATPOETC] Onset: 12-21-2022 Episodic Residual codes; unclassified (1 source) Family history of malignant neoplasm of ovary; Translations: [FAM HX MALIGNANT NEOPLASM OVARY] Onset: 12-21-2022 Episodic Rheumatoid arthritis and related disease (5 sources) Bilateral rheumatoid arthritis of hands; Translations: [Rheumatoid arthritis, unspecified] Onset: 04-06-2020 04-06-2020 Chronic Thyroid disorders (1 source) Hypothyroidism, unspecified; Translations: [HYPOTHYROIDISM UNSPECIFIED] Onset: 03-24-2022 Chronic Past or Other Problems Problem Classification Problem Date Documented Da te Episodic/Chronic Fluid and electrolyte disorders (4 sources) Hypokalemia; Translations: [HYPOKALEMIA] Onset: 03-22-2022 Episodic Other aftercare (5 sources) Patient encounter status; Translations: [Encounter for other specified aftercare] Onset: 07-27-2018 07-27-2018 Episodic Other connective tissue disease (1 source) Plantar fascial fibromatosis Onset: 05-09-2022 Resolved: 05-09-2022 Episodic Other connective tissue disease (5 sources) Swelling of hand; Translations: [Other specified soft tissue disorders] Onset: 07-27-2018 07-27-2018 Episodic Other connective tissue disease (5 sources) Pain in right hand; Translations: [Pain in right hand] Onset: 07-27-2018 07-27-2018 Episodic Other connective tissue disease (4 sources) Pain in right foot; Translations: [PAIN IN RIGHT FOOT] Onset: 05-04-2022 Episodic Other non-traumatic joint disorders (1 source) Effusion, left elbow; Translations: [Swelling of left elbow M25.422] Onset: 07-21-2021 Resolved: 07-21-2021 Episodic Other non-traumatic joint disorders (4 sources) Pain in left shoulder; Translations: [PAIN IN LEFT SHOULDER] Onset: 06-20-2022 Episodic Other upper respiratory infections (2 sources) Upper respiratory infection; Translations: [Upper respiratory infection] Episodic Poisoning by nonmedicinal substances (1 source) Toxic effect of venom of bees, undetermined, initial encounter; Translations: [Bee sting, undetermined intent, initial encounter T63.444A] Onset: 06-22-2021 Resolved: 06-22-2021 Episodic Spondylosis; intervertebral disc disorders; other back problems (5 sources) Brachial neuritis; Translations: [Radiculopathy, cervical region] Onset: 06-09-2005 07-25-2018 Episodic Results Test Name Value Interpretation Reference Range Facility BASIC MET PANEL W/GFRon 12-0 Calcium [Mass/Vol] 9.2 mg/dL Normal (8.6 - 10.6) [facility] Comment on above: Order Comment: FACIL ITY: [facility] [id number] Performed By: #### C HEM-B #### [facility] [address] [facility], [address] Chloride [Moles/Vol] 99 mmol/L Normal (98 - 107) [facility] Comment on above: Order Comment: FACIL ITY: [facility] [id number] Performed By: #### C HEM-B #### [facility] [address] [facility], [address] CO2 [Moles/Vol] 27 mmol/L Normal (22 - 30) [facility] Comment on above: Order Comment: FACIL ITY: [facility] [id number] Performed By: #### C HEM-B #### [facility] [address] [facility], [address] Creatinine [Mass/Vol] 0.74 mg/dL Normal (0.52 - 1.04) [facility] Comment on above: Order Comment: FACIL ITY: [facility] [id number] Performed By: #### C HEM-B #### [facility] [address] [place], [address] GFR- AMER 95.6 ML/M1.7 Normal (60.0 - 140.1) [facility] above: Order Comment: FACIL ITY: [facility] [id number] Performed By: #### C HEM-B #### [facility] [address] [place], [address] GFR-NON AFRIC-AMER 79.0 ML/M1.7 Normal (60.0 - 115.8) [facility] Comment on above: Order Comment: FACIL ITY: [facility] [id number] Performed By: #### C HEM-B #### [facility] [address] [place], [address] Glucose [Mass/Vol] 100 mg/dL Normal (74 - 106) [facility] Comment on above: Order Comment: FACIL ITY: [facility] [id number] Performed By: #### C HEM-B #### [facility] [address] [place], [address] Potassium [Moles/Vol] 4.6 mmol/L Normal (3.5 - 5.1) [facility] Comment on above: Order Comment: FACIL ITY: [facility] [id number] Performed By: #### C HEM-B #### [facility] [address] [place], [address] Sodium [Moles/Vol] 136 mmol/L Low (137 - 145) [facility] Comment on above: Order Comment: FACIL ITY: [facility] [id number] Performed By: #### C HEM-B #### [facility] [address] [place], [address] Urea nitrogen [Mass/Vol] 11 mg/dL Normal (7 - 17) [facility] Comment on above: Order Comment: FACIL ITY: [facility] [id number] Performed By: #### C HEM-B #### [facility] [address] [place], [address] Progress Noteson 08-25-2023 Distributed Generation Project Manager Authentication Interface Message Text CC: Left hand and wrist pain Follow up after MRI done at [facility]. Normal [employer] Distributed [employer] Project Manager Authentication Interface Message Text Patient Office Note or Post OP Note Name:Madan Perry Date: 08/25/2023 CC: left wrist pain at [facility] area No chief complaint on file. EXAM: cyst present IMAGING: MR and xrays- diffuse arthritis, multiple joint arthritic change, DISI subluxation pattern, Thumb MCP hyperextension, (NA) MDM, PLAN and ORDERS: Self administered therapy and instruction provided by RN. Upper Extremity THERAPY REFERRAL: (NA) FOLLOW-UP :6 weeks Future Imaging Future Injection done cyst ulnar side PLAN/SUMMARY Severe degenerative change, treating with COUMADIN. Less pain, well localized ulnar side of wrist. Resolving all the radiographic and mechanical problem requires more risk than does conservative treatment. Minor injection done, may see ECU rupture or more lunate pressure in the area. Symptoms do not justify wrist fusion arthroplasty or wrist exploration. No resident or teaching care was involved in care of this patient. Aliza Aguilar MD Injection Procedure.[facility] 08/25/2023 [id number] Madan Perry The patient requested an injection of Lidocaine (1%, 2cc) and Kenalog (40mg, 1cc).Total volume was 3 cc. Alternative treatments were explained. The anticipated side effects including local pain, unexpected allergic reaction, interference with hormonal or regulatory mechanism for blood sugar and skin side effects such as skin depigmentation were explained and accepted. Patient consented to the injection. After local cleaning and sterilization of the puncture area, the needle was inserted to the anatomic tissue for injection. Anesthetic effect, pain relief, confirmed the placement of the corticosteroid in the target tissue with the expected effect. No complications were noted in term of reaction to drug or procedure. Skin re-sterilized with alcohol and a dressing applied. Normal [facility] [employer] [facility] MR wrist LT wo conon 023 MR wrist LT wo con [facility] Main [place] [address] [place] [address] MRI Report Signed Patient: Madan Perry MR#: [id number] : 1960 Acct:[id number] Age/Sex: 63 / F ADM Date: 07/20/23 Loc: [facility] Room: Type: [facility] Attending Dr: Aliza Aguilar Copies to: Aliza Aguilar Ordering Provider: Aliza Aguilar Date of Service: 07/20/23 MR/MR hand LT wo con: MEDIAN NERVE COMPRESSION ([id number]) MR/MR wrist LT wo con: MEDIAN NERVE COMPRESSION ([id number]) XR/XR pre/post mri xray: MEDIAN NERVE COMPRESSION MRI left ankle without contrast TECHNIQUE: The left fingertip numbness. The left thumb pain. Assess Left wrist ganglion cyst. There is radial displacement at the right first metacarpal phalangeal articulation. This may correspond with a trapezium resection. Ulnar collateral ligament laxity. No significant bone marrow edema at this level. Flexor hallucis longus tendon intact. The extensor hallucis longus tendon not well seen. First interphalangeal joint space intact. The extensor hoods of the second to fourth digits intact. The flexor tendons of the second to fourth digits intact. Collateral ligaments intact. No acute bone marrow edematous changes. Abutment of the first metacarpal with the scaphoid. This may correspond with failure of the trapezium resection and repair. Correlate with prior imaging and prior surgery. Unremarkable muscle signal. No subcutaneous abnormality. No significant joint effusion. MR/MR hand LT wo con IMPRESSION: No acute bony findings. Radial subluxation of the first metacarpophalangeal region which may correspond with resection changes of the trapezium/ulnar collateral ligament laxity. Abutment of the first metacarpal with scaphoid. This may correspond with the failure of the trapezium resection. Correlate with surgical history and prior imaging. No worrisome tendinopathy. No bony lesion. No ganglion cyst. MRI left wrist without contrast Technique routine HISTORY: Thumb pain in the left. Left wrist ganglion cyst. No carpal tunnel abnormality identified. Flexor tendons are unremarkable. Median nerve unremarkable. The carpal tunnel. No inflammatory changes. Bone marrow changes of the lunate identified. DISI deformity of the lunate noted. Heterogeneous changes of the scaphoid and proximal capitate. The trapezium is absent . Dorsal scapholunate dissociation. Dorsal proximal displacement of the capitate. A tiny fluid is present in the distal radioulnar joint. The disc proper appears intact. Chronic ligamentous disruption of the volar radial ulnar ligament. Intact dorsal ulnar radial ligament. Meniscus homologue unremarkable. Extensor carpi ulnaris in adequate position. Fluid surrounds the extensor carpi ulnaris which may suggest tenosynovitis. Overlying subcutaneous edematous change. No distinct ganglion cyst. IMPRESSION: No definitive ganglion cyst. Lunate DISI deformity which may be chronic. Suspected subtle scapholunate dissociation and proximal displacement of the capitate. Findings may represent TFC tear. Abutment of the first metacarpal with the scaphoid. This may represent failure of the trapezium resection. Correlate with prior imaging and surgical history. 4 views left wrist/hand Resection of the trapezium articulation of the first metacarpal and scaphoid. Degeneration involving the trapezoid and scaphoid. The DISI deformity of the lumen is not demonstrated. Potential partial collapse normal demonstrated. Subtle scapholunate dissociation present. IMPRESSION: Trapezium resection with its articulation. Scaphoid and trapezoid degenerative change. DISI deformity of the lunate with capitate collapse. Impression dictated by: Jose Dial M.D.07/21/2023 7:38 PM Dictation Location: [place] [address] Transcribed By: [facility] 07/21/231937 Dictated By: Jose Dial DO 07/20/23 1525 Signed By: 07/21/231937 [facility] Telephone Encounteron 2022 [employer] Manager Authentication Interface Message Text Spoke with patient and scheduled. Normal [facility] [employer] [facility] Telephone Encounteron 2022 [employer] Project Manager Authentication Interface Message Text Pt called as she states that she was able to schedule an MRI finally and that is set for 07/20/23 currently, and she would like to schedule a f/u appt with the provider after that to discuss the results. The soonest appt that I had with provider was in August and pt states that they want to do the surgery before that, so she would need something sooner. Contact pt @[phone] Normal [facility] [employer] [facility] Addendum Noteon 06-16-2023 [employer] Manager Authentication Interface Message Text Addended by: ALIZA AGUILAR on: 06/16/2023 11:34 AM Modules accepted: Orders Normal [facility] [employer] [facility] Progress Noteson 06-16-2023 [employer] Project Manager Authentication Interface Message Text Patient Office Note or Post OP Note Name:Madan Perry Date: 06/16/2023 CC: left hand pain swelling at volar wrist., loose hyperextended thumb my Chief Complaint Patient presents with Hand/finger symptoms EXAM: mcp hyper extension ; swollen volar tendons, positive tinels median distribution and ulnar distribution, negative tinels at elbow, IMAGING: DISI pattern, (NA) MDM, PLAN and ORDERS: Self administered therapy and instruction provided by RN. Upper Extremity THERAPY REFERRAL: (NA) FOLLOW-UP :6 weeks Future Imaging mr Future Injection n PLAN/SUMMARY Imaging, plan procedure. No resident or teaching care was involved in care of this patient. Aliza Aguilar MD Normal [facility] [employer] [facility] [employer] Project Manager Authentication Interface Message Text CC: Left hand pain Pain Left wrist and hand; tingling to middle and ring fingers. Pt states ganglion which was removed has returned and is painful. CMC joint painful. 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 Normal [facility] XR HAND LEFT 3 VIEWSon 06-16 XR HAND LEFT 3 VIEWS EXAMINATION: XR HAND LEFT 3 VIEWSPRO/LT 06/16/2023 11:02 AM CLINICAL HISTORY: left hand pain ASSOCIATED DIAGNOSIS: Left hand pain ORDERING PROVIDER: ALIZA AGUILAR TECHNOLOGISTS NOTE: C/O hand pain and stiffness. 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 * Mild osteoarthritis of multiple interphalangeal joints. * Abduction of the left 1st metacarpal and extension at the 1st metacarpophalangeal joint. * No left hand fracture or dislocation. * No radiopaque foreign body. I have reviewed this study and interpretation with the resident and agree with the findings. Left hand MACRO: None Normal [facility] XR Hand - left 3 Viewson EXAMINATION: XR HAND LEFT 3 VIEWSPRO/LT 06/16/2023 11:02 AM CLINICAL HISTORY: left hand pain ASSOCIATED DIAGNOSIS: Left hand pain ORDERING PROVIDER: ALIZA AGUILAR TECHNTERESA NOTE: C/O hand pain and stiffness. 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 * Mild osteoarthritis of multiple interphalangeal joints. * Abduction of the left 1st metacarpal and extension at the 1st metacarpophalangeal joint. * No left hand fracture or dislocation. * No radiopaque foreign body. I have reviewed this study and interpretation with the resident and agree with the findings. Left hand MACRO: None RADIOLOGY Alberto Llanes, DO - 06/16/2023 EXAMINATION: XR HAND LEFT 3 VIEWSPRO/LT 06/16/2023 11:02 AM CLINICAL HISTORY: left hand pain ASSOCIATED DIAGNOSIS: Left hand pain ORDERING PROVIDER: ALIZA AGUILAR TECHNTERESA NOTE: C/O hand pain and stiffness. 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 * Mild osteoarthritis of multiple interphalangeal joints. * Abduction of the left 1st metacarpal and extension at the 1st metacarpophalangeal joint. * No left hand fracture or dislocation. * No radiopaque foreign body. I have reviewed this study and interpretation with the resident and agree with the findings. Left hand MACRO: None [facility] Radiology Study observation (narrative) [facility] XR Hand - left 3 ViewsOrdere d By: Alberto Llanes on 06-16-2023 [facility] [place] [employer] [employer] Work Phone: US DARNELL DOP LEG BILon 023 US DARNELL DOP LEG TANIA EXAM: US DARNELL DOP LEG TANIA HISTORY: Peripheral vascular disease (disorder) . Swelling of the lower extremities for the past month. COMPARISON: Venous Doppler on the right 07/21/2021 TECHNIQUE: Multiple sonographic images of the deep veins of both lower extremities were obtained, supplemented with Doppler. FINDINGS: The deep veins of both lower extremities are fairly well-visualized the groin to the mid calf. No filling defect is identified on either side to indicate a thrombus. There is normal compression augmentation of flow bilaterally. IMPRESSION: There is no direct or indirect evidence of deep vein thrombosis in the lower extremities at this time. Similar findings were noted on the right on 07/21/2021. Electronically authenticated by: LOUIS SEWELL Date: 2023-01-27 17:[address] [facility] CBC AUTO DIFFon 01-12-2023 BASO # 0.1 103/ul Normal 0.0-0.1 [facility] Comment on above: Performed By: #### C BC #### [facility] [address] [place] [address] Dr. Rocio Hernandez Basophils/100 WBC (Bld) 1.0 % Normal 0.2-2.0 [facility] Comment on above: Performed By: #### C BC #### [facility] [address] [place] [address] Dr. Rocio Hernandez EO # 0.2 103/ul Normal 0.0-0.7 [facility] Comment on above: Performed By: #### C BC #### [facility] [address] [place] [address] Dr. Rocio Hernandez Eosinophils/100 WBC (Bld) 2.9 % Normal 0.9-7.0 [facility] Comment on above: Performed By: #### C BC #### [facility] [address] [place] [address] Dr. Rocio Hernandez Erythrocyte distribution width (RBC) [Ratio] 14.1 % Normal 11.0-15.0 [facility] Comment on above: Performed By: #### C BC #### [facility] [address] [place] [address] Dr. Rocio Hernandez Hematocrit (Bld) [Volume fraction] 41.2 % Normal 36.0-48.0 [facility] Comment on above: Performed By: #### C BC #### [facility] [address] [place] [address] Dr. Rocio Hernandez Hemoglobin (Bld) [Mass/Vol] 13.6 g/dL Normal 12.0-16.0 [facility] Comment on above: Performed By: #### C BC #### [facility] [address] [place] [address] Dr. Rocio Hernandez IG # 0.01 10e3/ul Normal 0.00-0.03 [facility] Comment on above: Performed By: #### C BC #### [facility] [address] [place] [address] Dr. Rocio Hernandez IG % 0.2 % Normal 0.0-0.5 [facility] Comment on above: Performed By: #### C BC #### [facility] [address] [place] [address] Dr. Rocio Hernandez LYMPH # 1.3 103/ul Normal 1.2-3.8 [facility] Comment on above: Performed By: #### C BC #### [facility] [address] [place] [address] Dr. Rocio Hernandez Lymphocytes/100 WBC (Bld) 21.9 % Normal 20.5-60.0 [facility] Comment on above: Performed By: #### C BC #### [facility] [address] [place] [address] Dr. Rocio Hernandez MANUAL DIFF REQ NO Normal [facility] Comment on above: Performed By: #### C BC #### [facility] [address] [place] [address] Dr. Rocio Hernandez MCH (RBC) [Entitic mass] 28.4 pg Normal 26.7-34.0 [facility] Comment on above: Performed By: #### C BC #### [facility] [address] [place] [address] Dr. Rocio Hernandez MCHC (RBC) [Mass/Vol] 33.0 g/dL Normal 29.9-35.2 [facility] Comment on above: Performed By: #### C BC #### [facility] [address] [place] [address] Dr. Rocio Hernandez MCV (RBC) [Entitic vol] 86.0 fL Normal 81.0-99.0 [facility] Comment on above: Performed By: #### C BC #### [facility] [address] [place] [address] [address] Rocio Hernandez MONO # 0.6 103/ul Normal 0.3-0.8 [facility] Comment on above: Performed By: #### C BC #### [facility] [address] [place] [address] [address] Rocio Hernandez Monocytes/100 WBC (Bld) 10.3 % Normal 1.7-12.0 [facility] Comment on above: Performed By: #### C BC #### [facility] [address] [place] [address] Dr. Rocio Hernandez NEUT # 3.8 103/ul Normal 1.4-6.5 [facility] Comment on above: Performed By: #### C BC #### [facility] [address] [place] [address] Dr. Rocio Hernandez Neutrophils/100 WBC (Bld) 63.7 % Normal 43.0-75.0 [facility] Comment on above: Performed By: #### C BC #### [facility] [address] [place] [address] Dr. Rocio Hernandez Platelet mean volume (Bld) [Entitic vol] 9.0 fL Critically low 9.5-13.5 [facility] Comment on above: Performed By: #### C BC #### [facility] [address] [place] [address] Dr. Rocio Hernandez PLT 360 103/ul Normal 150-[address] [facility] Comment on above: Performed By: #### C BC #### [facility] [address] [place] [address] Dr. Rocio Hernandez RBC 4.79 106/ul Normal 4.20-5.[address] [facility] Comment on above: Performed By: #### C BC #### [facility] [address] [place] [address] Dr. Rocio Hernandez WBC 5.9 103/ul Normal 4.0-11.[address] [facility] Comment on above: Performed By: #### C BC #### [facility] [address] [place] [address] [address] Rocio Hernandez FREE T3on 01-12-2023 FREE T3 2.31 pg/mlL Normal 2.18-3.98 [facility] Comment on above: Performed By: #### T SH, CMP, LIPID, FT3 ####[facility] [address] [place] [address]DrClem Hernandez FREE T4on 01-12-2023 Free T4 [Mass/Vol] 1.21 ng/dL Normal 0.76-1.46 [facility] Comment on above: Performed By: #### B 12FOL, FT4 #### [facility] [address] [place] [address] [address] Rocio Hernandez GLYCOHEMOGLOBIN A1Con 2022 ADA RECOMMENDATION SEE BELOW Normal [facility] Comment on above: Result Comment: ADA RECOMMENDED LIMIT 4.0 - 6.0 ADA THERAPEUTIC TARGET < 7.0 ACTION SUGGESTED > 7.0 Performed By: #### A 1C ####[facility] [address] [place] [address]DrClem Hernandez Glucose [Mass/Vol] 123 mg/dL Normal [facility] Comment on above: Performed By: #### A 1C ####[facility] [address] [place] [address]DrClem Hernandez HbA1c (Bld) [Mass fraction] 5.9 % Normal 4.5-6.2 [facility] Comment on above: Performed By: #### A 1C ####[facility] [address] [place] [address]Dr. Rocio Hernandez LIPID PROFILEon 01-12-2023 CHOL-HDL RATIO NORM SEE BELOW Normal [facility] Comment on above: Result Comment: 3.3 - 4.4 LOW RISK 4.4 - 7.1 AVERAGE RISK 7.1 - 11.0 MODERATE RISK >11.0 HIGH RISK Performed By: #### T SH, CMP, LIPID, FT3 #### [facility] [address] [place] [address] [address] Rocio Hernandez Cholesterol [Mass/Vol] 203 mg/dL Critically high <=[address] [facility] Comment on above: Performed By: #### T SH, CMP, LIPID, FT3 #### [facility] [address] [place] [address] [address] Rocio Hernandez Cholesterol in HDL [Mass/Vol] 89 mg/dL Critically high 40-60 [facility] Comment on above: Performed By: #### T SH, CMP, LIPID, FT3 #### [facility] [address] [place] [address] [address] Rocio Hernandez Cholesterol in LDL [Mass/Vol] 87.8 mg/dL Normal [facility] Comment on above: Performed By: #### T SH, CMP, LIPID, FT3 #### [facility] [address] [place] [address] [address] Rocio Hernandez Cholesterol.total/C holesterol in HDL [Mass ratio] 2.3 {ratio} Normal [facility] Comment on above: Performed By: #### T SH, CMP, LIPID, FT3 #### [facility] [address] [place] [address] [address] Rocio Hernandez HDL NORMAL > or = 60 mg/dl - LO W CARDIOVASCULAR RISK <40 mg/dl - HIGH CARDIOVASCULAR RISK Normal [facility] Comment on above: Performed By: #### T SH, CMP, LIPID, FT3 #### [facility] [address] [place] [address] [address] Rocio Hernandez LDL CALC NORMAL SEE BELOW Normal [facility] Comment on above: Result Comment: <100 mg/dl OPTIMAL 100 - 129 mg/dl NEAR OR ABOVE OPTIMAL 130 - 159 mg/dl BORDERLINE HIGH 160 - 189 mg/dl HIGH >190 mg/dl VERY HIGH Performed By: #### T SH, CMP, LIPID, FT3 #### [facility] [address] [place] [address] [address] Rocio Hernandez Triglyceride [Mass/Vol] 131 mg/dL Normal <=[address] [facility] Comment on above: Performed By: #### T SH, CMP, LIPID, FT3 #### [facility] [address] [place] [address] [address] Rocio Hernandez VLDL CALC 26.2 mg/dL Normal [facility] Comment on above: Performed By: #### T SH, CMP, LIPID, FT3 #### [facility] [address] [place] [address] [address] Rocio Hernandez MICROALB CREAT RATIO RANDOMo n 01-12-2023 mALB <1.3 Normal <=30.0 [facility] Comment on above: Performed By: #### M CRR ####[facility] [address] [place] [id number] Hernandez MALB CR RATIO 13.6 mg/g Normal 0.0-29.[address] [facility] Comment on above: Performed By: #### M CRR ####[facility] [address] [place] [id number]. Rocio Hernandez MALB CR RATIO RANGE SEE BELOW Normal [facility] Comment on above: Result Comment: NO M ICROALBUMINURIA 0-29 MG/G CLINICAL MICROALBUMINURIA 30-300 MG/G MACROALBUMINURIA >300 MG/G Performed By: #### M CRR ####[facility] [address] [place] [id number]. Rocio Hernandez URINE CREAT 95.84 mg/dL Normal 20.00-300.00 [facility] Comment on above: Performed By: #### M CRR ####[facility] [address] [place] [id number]. Rocio Hernandez PROF 14(COMP METB)on 023 Albumin [Mass/Vol] 3.8 g/dL Normal 3.4-5.0 [facility] Comment on above: Performed By: #### T SH, CMP, LIPID, FT3 #### [facility] [address] [place] [address] [address] Rocio Hernandez Albumin/Globulin [Mass ratio] 0.9 {ratio} Normal [facility] Comment on above: Performed By: #### T SH, CMP, LIPID, FT3 #### [facility] [address] [place] [address] [address] Rocio Hernandez ALP [Catalytic activity/Vol] 111 U/L Normal 46-116 [facility] Comment on above: Performed By: #### T SH, CMP, LIPID, FT3 #### [facility] [address] [place] [address] [address] Rocio Hernandez ALT [Catalytic activity/Vol] 42 U/L Normal 14-59 [facility] Comment on above: Performed By: #### T SH, CMP, LIPID, FT3 #### [facility] [address] [place] [address] [address] Rocio Hernandez Anion gap [Moles/Vol] 10.8 mmol/L Normal [facility] Comment on above: Performed By: #### T SH, CMP, LIPID, FT3 #### [facility] [address] [place] [address] Dr. Rocio Hernandez AST [Catalytic activity/Vol] 24 U/L Normal 15-37 [facility] Comment on above: Performed By: #### T SH, CMP, LIPID, FT3 #### [facility] [address] [place] [address] Dr. Rocio Hernandez Bilirubin [Mass/Vol] 0.4 mg/dL Normal 0.2-1.0 [facility] Comment on above: Performed By: #### T SH, CMP, LIPID, FT3 #### [facility] [address] [place] [address] Dr. Rocio Hernandez Calcium [Mass/Vol] 9.6 mg/dL Normal 8.5-10.1 [facility] Comment on above: Performed By: #### T SH, CMP, LIPID, FT3 #### [facility] [address] [place] [address] Dr. Rocio Hernandez Chloride [Moles/Vol] 93 mmol/L Critically low 98-[address] [facility] Comment on above: Performed By: #### T SH, CMP, LIPID, FT3 #### [facility] [address] [place] [address] Dr. Rocio Hernandez CO2 [Moles/Vol] 31.2 mmol/L Normal 21.0-32.0 [facility] Comment on above: Performed By: #### T SH, CMP, LIPID, FT3 #### [facility] [address] [place] [address] [address] Rocio Hernandez Creatinine [Mass/Vol] 1.02 mg/dL Normal 0.55-1.02 [facility] Comment on above: Performed By: #### T SH, CMP, LIPID, FT3 #### [facility] [address] [place] [address] [address] Rocio Hernandez EGFR-AF YEMENI >60 Normal >=60 [facility] Comment on above: Performed By: #### T SH, CMP, LIPID, FT3 #### [facility] [address] [place] [address] [address] Rocio Hernandez EGFR-NON AF YEMENI 55 mL/min/1.73m2 Critically low >=60 [facility] Comment on above: Performed By: #### T SH, CMP, LIPID, FT3 #### [facility] [address] [place] [address] Dr. Rocio Hernandez Globulin (S) [Mass/Vol] 4.4 g/dL Normal [facility] Comment on above: Performed By: #### T SH, CMP, LIPID, FT3 #### [facility] [address] [place] [address] [address] Rocio Hernandez Glucose [Mass/Vol] 102 mg/dL Normal 74-106 [facility] Comment on above: Performed By: #### T SH, CMP, LIPID, FT3 #### [facility] [address] [place] [address] [address] Rocio Hernandez Potassium [Moles/Vol] 4.0 mmol/L Normal 3.5-5.1 [facility] Comment on above: Performed By: #### T SH, CMP, LIPID, FT3 #### [facility] [address] [place] [address] [address] Rocio Hernandez Protein [Mass/Vol] 8.2 g/dL Normal 6.4-8.2 [facility] Comment on above: Performed By: #### T SH, CMP, LIPID, FT3 #### [facility] [address] [place] [address] [address] Rocio Hernandez Sodium [Moles/Vol] 131 mmol/L Critically low 136-145 [facility] Comment on above: Performed By: #### T SH, CMP, LIPID, FT3 #### [facility] [address] [address] [address] Rocio Hernandez Urea nitrogen [Mass/Vol] 6.0 mg/dL Critically low 7.0-18.0 [facility] Comment on above: Performed By: #### T SH, CMP, LIPID, FT3 #### [facility] [address] [address] [address] Rocio Hernandez Urea nitrogen/Creatinine [Mass ratio] 5.9 mg/mg Normal [facility] Comment on above: Performed By: #### T SH, CMP, LIPID, FT3 #### [facility] [address] [place] [address] Dr. Rocio Hernandez TSHon 01-12-2023 TSH 5.647 uIU/mL Critically high 0.358-3.740 [facility] Comment on above: Performed By: #### T SH, CMP, LIPID, FT3 #### [facility] [address] [place] [address] Dr. Rocio Hernandez VIT B12 AND FOLATEon 023 Cobalamin (Vitamin B12) [Mass/Vol] 1189.0 pg/mL Critically high 193.0-986.0 [facility] Comment on above: Performed By: #### B 12FOL, FT4 #### [facility] [address] [place] [address] Dr. Rocio Hernandez FOLATE 27.30 ng/mL Normal 8.60-58.90 [facility] Comment on above: Performed By: #### B 12FOL, FT4 #### [facility] [address] [place] [address] Dr. Rocio Hernandez MG MAMM SCREEN 3D TANIA CADon 12-19-2022 MG MAMM SCREEN 3D TANIA CAD Patient: MADAN PERRY Exam Date: 12/19/2022 : 1960 Gender:F Ordering : DR [place] D.O. Admission #: [id number] Family : Order #: [id number] CLICK HERE TO VIEW EXAM RADIOLOGY REPORT PROCEDURE: MAMMOGRAM SCREENING 3D BILATERAL CAD COMPARISON: MG MAMM SCREEN 3D TANIA CAD, 12/16/2021. MG MAMM SCREEN TANIA W CAD, 11/17/2020. MG MAMM SCREEN TANIA W CAD, 10/08/2019. DIGITIZED_MAMMO, 05/04/2009. INDICATIONS: Screening mammography Calculator Name NCI Breast Cancer Risk Assessment Tool 5 Year Breast Cancer Risk 2.90% Lifetime Breast Cancer Risk 12.10% Personal Breast Cancer No Personal Ovarian Cancer No Treatments None Family Cancers Mother with breast cancer at age 54; Mother with lung cancer at age 72; Brother with non hodgkins lymphoma cancer at age 20; Grandfather-maternal with lymphoma cancer at age 48; Sister with ovarian cancer at age 55. LOCATION: [facility] BREAST COMPOSITION: Scattered areas fibroglandular density. FINDINGS: DIAGNOSTIC CATEGORY 2--BENIGN FINDING: RIGHT BREAST: No significant suspicious finding. Stable, chronic small lymph node within upper inner quadrant. No significant change has occurred. LEFT BREAST: No significant suspicious finding. Stable, chronic small lymph node within the upper inner quadrant. No significant change has occurred. RECOMMENDATIONS: ROUTINE MAMMOGRAM AND CLINICAL EVALUATION IN 12 MONTHS. PLEASE NOTE: A NORMAL MAMMOGRAM DOES NOT EXCLUDE THE POSSIBILITY OF BREAST CANCER. A CLINICALLY SUSPICIOUS PALPABLE LUMP SHOULD BE BIOPSIED. Dictated by: Rodri Flores M.D. on 12/19/2022 at 11:15 Approved by: Rodri Flores M.D. on 12/19/2022 at 11:[address] [facility] XR DEXA BONE DENSITYon 12-19 XR DEXA BONE DENSITY EXAMINATION: XR DEXA BONE DENSITY, 12/19/2022 8:45 AM EDT HISTORY: Menopause present COMPARISON: DEXA bone densitometry 09/11/2020 TECHNIQUE: Dual-energy X-ray absorptiometry (DEXA) bone density study performed for the axial skeleton. FINDINGS: SPINE ANALYSIS: Average bone mineral density is 1.367 g/cm2. T-score (standard deviation relative to young adult mean): 1.6 . +1.1% change since prior study. HIP ANALYSIS: Lowest bone mineral density is within the right femoral neck, 0.898 g/cm2. T-score (standard deviation relative to young adult mean): -1.0 . +1.5% change since prior study IMPRESSION: [employer] Classification: Normal - Low Fracture Risk Electronically authenticated by: RODRI FLORES Date: 2022-12-19 10:01 Normal [facility] FREE T3on 03-22-2022 FREE T3 2.43 pg/mlL Normal 2.18-3.[address] [facility] Comment on above: Performed By: #### B MP, FT3, TSH ####[facility] [address] [address]Dr. Rocio Hernandez FREE T4on 03-22-2022 Free T4 [Mass/Vol] 1.43 ng/dL Normal 0.76-1.46 [facility] Comment on above: Performed By: #### F T4 ####[facility] [address] [place], [place] [address]Dr. Rocio Hernandez PROF CHEM 8 (BAS METB)on Anion gap [Moles/Vol] 10.2 mmol/L Normal [facility] Comment on above: Performed By: #### B MP, FT3, TSH ####[facility] [address] [address]Dr. Rocio Hernandez Calcium [Mass/Vol] 8.8 mg/dL Normal 8.5-10.1 [facility] Comment on above: Performed By: #### B MP, FT3, TSH ####[facility] [address] [address]Dr. Rocio Hernandez Chloride [Moles/Vol] 104 mmol/L Normal 98-[address] [facility] Comment on above: Performed By: #### B MP, FT3, TSH ####[facility] [address] [address]Dr. Rocio Hernandez CO2 [Moles/Vol] 31.7 mmol/L Normal 21.0-32.0 [facility] Comment on above: Performed By: #### B MP, FT3, TSH ####[facility] [address] [address]Dr. Rocio Hernandez Creatinine [Mass/Vol] 0.96 mg/dL Normal 0.55-1.[address] [facility] Comment on above: Performed By: #### B MP, FT3, TSH ####[facility] [address] [address]Dr. Rocio Hernandez EGFR-AF YEMENI >60 Normal >=60 [facility] Comment on above: Performed By: #### B MP, FT3, TSH ####[facility] [address] [address]Dr. Rocio Hernandez EGFR-NON AF YEMENI 59 mL/min/1.73m2 Critically low >=60 [facility] Comment on above: Performed By: #### B MP, FT3, TSH ####[facility] [address] [address]Dr. Rocio Hernandez Glucose [Mass/Vol] 110 mg/dL Critically high 74-106 [facility] Comment on above: Performed By: #### B MP, FT3, TSH ####[facility] [address] [address]Dr. Rocio Hernandez Potassium [Moles/Vol] 2.9 mmol/L Critically low 3.5-5.1 [facility] Comment on above: Result Comment: TEST REPEATED CRITICAL VALUE VERIFIED Performed By: #### B MP, FT3, TSH ####[facility] [address] [place], [place] [address]Dr. Rocio Hernandez Sodium [Moles/Vol] 141 mmol/L Normal 136-145 [facility] Comment on above: Performed By: #### B MP, FT3, TSH ####[facility] [address] [address]Dr. Rocio Hernandez Urea nitrogen [Mass/Vol] 12.0 mg/dL Normal 7.0-18.0 [facility] Comment on above: Performed By: #### B MP, FT3, TSH ####[facility] [address] [place], [place] [address]Dr. Rocio Hernandez Urea nitrogen/Creatinine [Mass ratio] 12.5 mg/mg Normal [facility] Comment on above: Performed By: #### B MP, FT3, TSH ####[facility] [address] [place], [place] [address]Od. Rocio Hernandez TSHon 03-22-2022 TSH 0.137 uIU/mL Critically low 0.358-3.740 [facility] Comment on above: Performed By: #### B MP, FT3, TSH ####[facility] [address] [place], [place] [address]Rh. Rocio Hernandez Patient Letter FTMCon 2020 Patient Letter FT (Inserted Image. Wilda ble to display) May 26, 2021 MADAN PERRY [address] [place] [address] MADAN PERRY 1960 Dear Madan, This is a SECOND ATTEMPT to remind you that you are due for an appointment with [facility]. Please contact our office at [phone] to schedule an appointment at your earliest convenience. Thank you, [facility] Reminderson 05-26-2021 Reminders - From: Jane Onofre To: [facility] - Reminders/Recalls; Sent: 01/18/2021 12:33:31 EDT Show up: 04/25/2021 12:33:00 EDT Subject: Ambulatory Reminder Due Date/Time: 06/09/2021 12:33:00 EDT Reminder/Recall sara peace 5 year colon 06/09/2021 first recall letter second rcall letter Normal [facility] Patient Letter FTon 2020 Patient Letter FT (Inserted Image. Iwlda ble to display) May 05, 2021 MADAN PERRY [address] [place] [address] MADAN PERRY 1960 Dear Madan, This is a reminder that you are due for an appointment with [facility]. Please contact our office at [phone] to schedule an appointment at your earliest convenience. Thank you, [facility] Vital Signs Date Time Vital Sign Value Performing Clinician Facility 05-09-2022 16:35-0400 Body height 161.29 cm Adilia Mederos Other [facility] Other 05-09-2022 16:35-0400 Body mass index (BMI) [Ratio] 25.63 kg/m2 Adilia Mederos Other [facility] Other 05-09-2022 16:35-0400 Body temperature 97.8 [degF] Adilia Mederos Other [facility] Other 05-09-2022 16:35-0400 Body weight 66.68 kg Adilia Mederos Other [facility] Other 05-09-2022 16:35-0400 Diastolic blood pressure 79 mm[Hg] Adilia Mederos Other [facility] Other 05-09-2022 16:35-0400 Respiratory rate 18 /min Adilia Mederos Other [facility] Other 05-09-2022 16:35-0400 SaO2% (BldA) [Mass fraction] 98 % Adilia Mederos Other [facility] Other 05-09-2022 16:35-0400 Systolic blood pressure 136 mm[Hg] Adilia Mederos Other [facility] Other 07-21-2021 16:05-0400 Body height 161.29 cm Lilian Ferreira Other [facility] Other 07-21-2021 16:05-0400 Body mass index (BMI) [Ratio] 26.5 kg/m2 Lilian Ferreira Other [facility] Other 07-21-2021 16:05-0400 Body temperature 96.2 [degF] Lilian Ferreira Other [facility] Other 07-21-2021 16:05-0400 Body weight 68.95 kg Lilian Ferreira Other [facility] Other 07-21-2021 16:05-0400 Diastolic blood pressure 95 mm[Hg] Lilian Ferreira Other [facility] Other 07-21-2021 16:05-0400 Respiratory rate 18 /min Lilian Ferreira Other [facility] Other 07-21-2021 16:05-0400 SaO2% (BldA) [Mass fraction] 99 % Lilian Ferreira Other [facility] Other 07-21-2021 16:05-0400 Systolic blood pressure 132 mm[Hg] Lilian Ferreira Other [facility] Other 06-22-2021 14:20-0400 Body height 161.29 cm Adilia Mederos Other [facility] Other 06-22-2021 14:20-0400 Body mass index (BMI) [Ratio] 25.98 kg/m2 Adilia Cardenasault Other [facility] Other 06-22-2021 14:20-0400 Body temperature 96.4 [degF] Adilia Rosa M Other [facility] Other 06-22-2021 14:20-0400 Body weight 67.59 kg Adilia Rosa M Other [facility] Other 06-22-2021 14:20-0400 Diastolic blood pressure Adilia Mederos Other [facility] Other 06-22-2021 14:20-0400 Respiratory rate 18 /min Adilia Mederos Other [facility] Other 06-22-2021 14:20-0400 SaO2% (BldA) [Mass fraction] 98 % Adilia Mederos Other [facility] Other 06-22-2021 14:20-0400 Systolic blood pressure 111 mm[Hg] Adilia Mederos Other [facility] Other Encounters Encounter Date Encounter Type Care Provider Facility Start: 08-25-2023 End: 08-25-2023 ambulatory ALIZA AGUILAR Facility:[facility] Start: 08-25-2023 End: 08-25-2023 Office outpatient visit 15 minutes Aliza Aguilar MD Work Phone: [address] [facility] Comment on above: Hand arthritis (Prim maurisio Dx) Start: 08-21-2023 End: 08-22-2023 ambulatory [facility] Start: 08-19-2023 Letter encounter Yesy Covarrubias OT Work Phone: [facility] Start: 07-31-2023 End: 08-01-2023 ambulatory [facility] Start: 07-24-2023 End: 07-25-2023 ambulatory [facility] Start: 07-20-2023 End: 07-20-2023 ambulatory Aliza Aguilar Facility:[facility] Start: 07-20-2023 End: 07-20-2023 ambulatory DO [place] Work Phone: [facility] Work Phone: Start: 07-20-2023 End: 07-20-2023 Patient encounter procedure DO [place] Work Phone: [facility] [address] Work Phone: Start: 07-10-2023 End: 07-11-2023 ambulatory Meet Harp MD Facility:[facility] Start: 06-16-2023 End: 06-17-2023 ambulatory UNKNOWN PROVIDER [facility] Start: 06-16-2023 End: 06-16-2023 Office outpatient visit 25 minutes Aliza Aguilar MD Work Phone: [address] [facility] Comment on above: Left hand pain (Prim maurisio Dx) Start: 06-16-2023 End: 06-16-2023 [facility] Work Phone: [address] [facility] Comment on above: Left hand pain Start: 02-07-2023 End: 02-08-[address] [place] Facility:[facility] Start: 01-27-2023 End: 01-28-[address] [place] Facility:[facility] Start: 01-23-2023 End: 02-22-2023 ambulatory SHAIKH Eduardo ROSS Facility:[facility] Start: 01-16-2023 Encounter for genera l adult medical examination without abnormal findings DR [place] [facility] Start: 01-12-2023 End: 01-13-[address] [place] Facility:[facility] Start: 01-12-2023 End: 01-13-2023 Encounter for general adult medical examination without abnormal findings DR [place] Facility:[facility] Start: 12-26-2022 End: 01-20-2023 ambulatory SHAIKH Eduardo ROSS Facility:[facility] Start: 12-19-2022 End: 12-20-[address] [place] Facility:[facility] Start: 11-23-2022 End: 12-23-2022 ambulatory DUARTE H FAWWAD Facility:[facility] Start: 10-26-2022 End: 11-23-2022 ambulatory DUARTE H FAWWAD Facility:[facility] Start: 09-26-2022 End: 10-26-2022 ambulatory DUARTE H FAWWAD Facility:[facility] Start: 08-25-2022 End: 09-25-2022 ambulatory DUARTE H FAWWAD Facility:[facility] Start: 07-26-2022 End: 08-24-2022 ambulatory DUARTE H FAWWAD Facility:[facility] Start: 06-26-2022 End: 07-25-2022 ambulatory DUARTE H FAWWAD Facility:[facility] Start: 06-20-2022 End: 06-21-[address] [place] Facility:[facility] Start: 05-26-2022 End: 06-25-2022 ambulatory DUARTE H FAWWAD Facility:[facility] Start: 05-13-2022 Letter encounter Yesy Covarrubias OT Work Phone: [facility] Start: 05-09-2022 End: 05-09-2022 ambulatory Adilia Mederos Other [facility] Other Start: 05-09-2022 Office outpatient vi sit 15 minutes Adilia Mederos [facility] Start: 05-04-2022 End: 05-05-[address] [place] Facility:[facility] Start: 04-25-2022 End: 05-25-2022 ambulatory DUARTE H FAWWAD Facility:[facility] Start: 03-25-2022 End: 04-22-2022 ambulatory DUARTE H FAWWAD Facility:[facility] Start: 03-23-[address] [place] Fac ility:[facility] Start: 03-22-2022 End: 03-23-[address] [place] Facility:[facility] Start: 07-21-2021 Patient encounter procedure Lilian Hanna [facility] Start: 06-22-2021 Office outpatient vi sit 15 minutes Adilia Mederos [facility] Procedures Date Procedure Procedure Detail Performing Clinician Start: 08-25-2023 Injection 1 tendon sheath/ligament aponeurosis Aliza Aguilar MD Work Phone: Start: 06-16-2023 Radex hand minimum 3 views Aliza Aguilar MD Work Phone: Plan of Treatment Date Care Activity Detail Author Start: 06-04-2028 Tetanus vaccination Tetanus (T d or Tdap) [facility] Start: 01-13-2028 Cholesterol [Mass/volume] in Serum or Plasma [facility]olesterol [facility] Start: 08-25-2023 End: 08-25-2023 Patient encounter procedure 08/25/2023 11:30 AM EST Office Visit [address] [facility] [address] [place], [place] [id number] Aliza Aguilar MD [address] [place] [id number] [facility] Start: 07-20-2023 XR pre/post mri xray XR pre/post mri xray [facility] Start: 07-20-2023 [facility] Start: 07-20-2023 MR Wrist - left WO contrast [facility] Start: 07-20-2023 MRI of left wrist MR wrist LT wo con [facility] Start: 07-20-2023 MR Hand - left WO contrast [facility] Start: 07-20-2023 MRI of left hand MR hand LT wo con [facility] Start: 06-25-2023 Influenza vaccination Influenza Vacc ine (#1) [facility] Start: 06-16-2023 End: 06-16-2024 MR Wrist - left WO contrast MR WRIST LEFT W/O Imaging Routine Left hand pain Expected: 06/16/2023, Expires: 06/16/2024 [facility] [employer] Work Phone: Comment on above: Expected: 06/16/2023 , Expires: 06/16/2024 Start: 05-26-2023 COVID-19 Vaccine () COVID-19 Vaccine () [facility] Start: 05-26-2023 Influenza vaccination Influenza Vacc ine (#1) [facility] Start: 06-25-2022 Influenza vaccination Influenza Vacc ine (#1) [facility] Start: 06-08-2022 COVID-19 Vaccine (4 - Booster for Pfizer series) COVID-19 Vaccine (4 - Booster for Pfizer series) [facility] Start: 2019 RSV vaccine (optiona l 60+ years) RSV vaccine (optional 60+ years) [facility] Start: 09-25-2014 Annual wellness visit Annual W ellness Visit (G0438) [facility] Start: 2009 Measurement of occul t blood in single stool specimen FIT [facility] Start: 2009 Screening for malign ant neoplasm of breast Mammography [facility] Start: 2009 Screening for malign ant neoplasm of colon CRC Screening [facility] Start: 02-11-2004 Cholesterol [Mass/volume] in Serum or Plasma Cholesterol [facility] Start: 02-11-2004 Screening for malign ant neoplasm of colon [facility] Start: 1999 Screening for malign ant neoplasm of breast Mammography [facility] Start: 02-11-1980 Screening for malign ant neoplasm of cervix Pap Smear [facility] Start: 1977 Hepatitis C screening Hepatitis C An tibody [facility] Start: 1974 HIV screening HIV Test [facility] Start: 1959 COVID-19 Vaccine ( formulation) COVID-19 Vaccine ( formulation) [facility] Start: 1960 Screening for malign ant neoplasm of colon Colonoscopy [facility] Immunizations Immunization Date Immunization Notes Care Provider Fa cility 08-11-2023 influenza, injectabl e, quadrivalent, preservative free Aliza Aguilar MD Work Phone: [facility] 08-11-2023 Respiratory syncytia l virus (RSV), vaccine, bivalent, protein subunit RSV prefusion F, diluent reconstituted, 0.5 mL, preservative free (MMZ=117) Aliza Aguilar MD Work Phone: [facility] 06-18-2022 influenza, injectabl e, quadrivalent, preservative free Aliza Aguilar MD Work Phone: [facility] 06-18-2022 influenza virus vacc ine, unspecified formulation Aliza Aguilar MD Work Phone: [facility] 02-05-2022 Pfizer Monovalent (1 2+ yrs) SARS-COV-2 (COVID-19) vaccine, mRNA, spike protein, LNP, pres. free, 30 mcg/0.3mL dose, betito-sucrose (JXA=892) Aliza Aguilar MD Work Phone: [facility] 08-11-2021 influenza, injectabl e, quadrivalent, preservative free Yesy Marci OT Work Phone: [facility] 08-11-2021 influenza virus vacc ine, unspecified formulation Yesy Marci OT Work Phone: [facility] 07-24-2020 zoster vaccine recombinant K athryn Marci OT Work Phone: [facility] 07-11-2020 Influenza, injectabl e, Madin Zakia Canine Kidney, preservative free, quadrivalent Yesy Marci OT Work Phone: [facility] 04-18-2020 zoster vaccine recombinant K athryn Marci OT Work Phone: [facility] 08-28-2019 Influenza, injectabl e, Madin Zakia Canine Kidney, preservative free, quadrivalent Yesy Marci OT Work Phone: [facility] 07-01-2019 influenza, high dose seasonal, preservative-free Yesy Marci OT Work Phone: [facility] 06-25-2019 pneumococcal polysac charide vaccine, 23 valent Yesy Marci OT Work Phone: [facility] 07-06-2018 influenza, injectabl e, quadrivalent, contains preservative Yesy Marci OT Work Phone: [facility] 06-04-2018 tetanus toxoid, redu karen diphtheria toxoid, and acellular pertussis vaccine, adsorbed Yesy Marci OT Work Phone: [facility] 08-19-2017 influenza, injectabl e, quadrivalent, preservative free Yesy Marci OT Work Phone: [facility] 08-09-2017 influenza, injectabl e, quadrivalent, contains preservative Yesy Marci OT Work Phone: [facility] 08-01-2016 influenza, injectabl e, quadrivalent, preservative free Yesy Marci OT Work Phone: [facility] 07-11-2015 influenza, injectabl e, madin zakia canine kidney, preservative free Yesy Marci OT Work Phone: [facility] 07-11-2015 pneumococcal conjuga te vaccine, 13 valent Yesy Marci OT Work Phone: [facility] 08-13-2009 novel influenza-H1N1 -09, preservative-free, injectable Yesy Marci OT Work Phone: [facility] 07-17-2009 influenza virus vacc ine, unspecified formulation Yesy Marci OT Work Phone: [facility] 08-15-2008 influenza virus vacc ine, unspecified formulation Yesy Marci OT Work Phone: [facility] Payers Date Payer Category Payer Self-pay [id number] 2018 Unknown [id number] 2013 Medicare [id number] [id number] [id number] 1960 [facility] [id number] 2.16.840.1.289112.19 1960 Medicare [id number] 2.16.840.1.481800.19 1959 Unknown [id number] 2.16.840.1.044519.3.579.2.593 1960 Unknown [id number] 2.16.840.1.992595.3.579.2.593 1959 Unknown [id number] 2.16.840.1.114458.3.579.2.593 1959 Unknown [id number] 2.16.840.1.870723.3.579.2.593 1959 Unknown [id number] 2.16.840.1.913268.3.579.2.593 1959 Unknown [id number] 2.16.840.1.053765.3.579.2.593 1959 Unknown [id number] 2.16.840.1.497685.3.579.2.59 1959 Unknown [id number] 2.16.840.1.965449.3.579.2.59 1959 Unknown [id number] 2.16.840.1.280661.3.579.2.59 1959 Unknown [id number] 2.16.840.1.135696.3.579.2.59 1959 Unknown [id number] 2.16.840.1.128713.3.579.2.593 1959 Unknown [id number] 2.16.840.1.995754.3.579.2.593 1959 Unknown [id number] 2.16.840.1.833304.3.579.2.593 1959 Unknown [id number] 2.16.840.1.799269.3.579.2.593 1959 Unknown [id number] 2.16.840.1.393139.3.579.2.593 1959 Unknown [id number] 2.16.840.1.382555.3.579.2.593 1959 Unknown [id number] 2.16.840.1.281345.3.579.2.593 1959 Unknown [id number] 2.16.840.1.121586.3.579.2.593 1959 Unknown [id number] 2.16.840.1.924187.3.579.2.593 1959 Unknown [id number] 2.16.840.1.261501.3.579.2.593 1959 Unknown [id number] 2.16.840.1.467099.3.579.2.732 1959 Unknown [id number] 2.16.840.1.969185.3.579.2.732 1959 Unknown [id number] 2.16.840.1.404459.3.579.2.732 1959 Unknown [id number] 2.16.840.1.051677.3.579.2.196 1959 Unknown [id number] 2.16.840.1.832317.3.579.2.196 1959 Unknown [id number] 2.16.840.1.130101.3.579.2.196 1959 Unknown [id number] 2.16.840.1.031536.3.579.2.196 Medicare Medicare Nonpatient [id number] Unknown [id number] 2.16.840.1.412453.3.579.2.531 Social History Date Type Detail Facility Unknown if ever smoked [facility] Other Sex Assigned At [facility] Start: 05-31-2019 Tobacco smoking stat [facility] Ex-smoker [facility] History of tobacco use Current smoker [facility] Start: 05-31-2019 Tobacco use and exposure Smokeless tobacco non-user [facility] Start: 04-07-2020 Alcohol intake Lifetime non-d han (finding) [facility] Start: 07-09-2019 History SDOH Alcohol Frequency 1 [facility] Start: 1960 Sex Assigned At Not on file [facility] Start: 1960 Sex Assigned At Female [facility] Medical Equipment Procedure Code Equipment Code Equipment Origin al Text Equipment Identifier [place] 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 Patient Office Note or Post OP Note Name:Madan Perry Date: 08/25/2023 CC: left wrist pain at [facility] ECU area No chief complaint on file. EXAM: cyst present IMAGING: MR and xrays- diffuse arthritis, multiple joint arthritic change, DISI subluxation pattern, Thumb MCP hyperextension, (NA) MDM, PLAN and ORDERS: Self administered therapy and instruction provided by RN. Upper Extremity THERAPY REFERRAL: (NA) FOLLOW-UP :6 weeks Future Imaging Future Injection done cyst ulnar side PLAN/SUMMARY Severe degenerative change, treating with COUMADIN. Less pain, well localized ulnar side of wrist. Resolving all the radiographic and mechanical problem requires more risk than does conservative treatment. Minor injection done, may see ECU rupture or more lunate pressure in the area. Symptoms do not justify wrist fusion arthroplasty or wrist exploration. No resident or teaching care was involved in care of this patient. Aliza Aguilar MD Injection Procedure.ecu region 08/25/2023 [id number] Madan Menchacadaisy The patient requested an injection of Lidocaine (1%, 2cc) and Kenalog (40mg, 1cc).Total volume was 3 cc. Alternative treatments were explained. The anticipated side effects including local pain, unexpected allergic reaction, interference with hormonal or regulatory mechanism for blood sugar and skin side effects such as skin depigmentation were explained and accepted. Patient consented to the injection. After local cleaning and sterilization of the puncture area, the needle was inserted to the anatomic tissue for injection. Anesthetic effect, pain relief, confirmed the placement of the corticosteroid in the target tissue with the expected effect. No complications were noted in term of reaction to drug or procedure. Skin re-sterilized with alcohol and a dressing applied. documented in this encounter [facility] 06-16-2023 Note Addended by: ALIZA AGUILAR on: 06/16/2023 11:34 AM Modules accepted: Orders [facility] 06-16-2023 Miscellaneous Notes Addended by: ALIZA AGUILAR on: 06/16/2023 11:34 AM Modules accepted: Orders documented in this encounter [facility] 06-16-2023 History of Presen t illness Narrative Patient Office Note or Post OP Note Name:Madan Rodriguezmelitondaisy Date: 06/16/2023 CC: left hand pain swelling at volar wrist., loose hyperextended thumb my Chief Complaint Patient presents with Hand/finger symptoms EXAM: mcp hyper extension ; swollen volar tendons, positive tinels median distribution and ulnar distribution, negative tinels at elbow, IMAGING: DISI pattern, (NA) MDM, PLAN and ORDERS: Self administered therapy and instruction provided by RN. Upper Extremity THERAPY REFERRAL: (NA) FOLLOW-UP :6 weeks Future Imaging mr Future Injection n PLAN/SUMMARY Imaging, plan procedure. No resident or teaching care was involved in care of this patient. Aliza Aguilar MD CC: Left hand pain Pain Left wrist and hand; tingling to middle and ring fingers. Pt states ganglion which was removed has returned and is painful. CMC joint painful. 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 documented in this encounter [facility] 05-09-2022 Evaluation note Encounter Date Diagnosis Assessment Notes Apr, Plantar fasciitis, right (ICD-10 - M72.2) Use RICE therapy as discussed: Rest, Ice Compression, Elevate. Apply ice to affected area 3-4 times daily (Do not place ice source directly on skin, must cover with towel-like material). Take medication as directed. Rest and elevate sore extremity as much as possible. Do not take OTC medication pain relievers if prescription of medication given in office today. Contact office if no improvement of symptoms and we will help you get into a specialist. KTape applied in office and discussed results of Xray that was ordered outpatient by PCP [facility] 08-10-2022 NotePROCEDURE: XR FOOT RT MIN 3 VIEWS COMPARISON: None. HISTORY: Pain in right foot FINDINGS: BONES:No fracture, acute abnormality, or significant arthropathy. Mild enthesopathic spurring of the calcaneus at the Achilles insertion SOFT TISSUES:Negative. No visible soft tissue swelling. EFFUSION:None visible. OTHER: Negative. IMPRESSION: No acute abnormality Electronically authenticated by: MARTINEZ HARVEY Date: 2022-05-04 16:22[facility]10-27-2021 Evaluation note* Encounter Date Diagnosis Assessment Notes Treatment Notes Treatment Clinical Notes Jun, Swelling of left elbow (ICD-10 - M25.422) Jun, Other Patient refe rred to the ER due to swelling, ecchymosis, pain of her left elbow with no known injury. It is felt the patient needs blood work to evaluate [facility] Other 09-28-2021 Evaluation note* Encounter Date Diagnosis Assessment Notes Treatment Notes Treatment Clinical Notes May, Bee sting, undetermined intent, initial encounter (ICD-10 - T63.444A) May continue Xyzal and Benadryl as directed. [facility] Other Evaluation note* Diagnosis Left hand pain- Primary Pain in limb Left hand pain Pain in limb [facility] Left [facility] pain Pain in limb [facility] Work Phone: Evaluation note* Diagnosis Hand arthritis- Primary Unspecified arthropathy, hand [facility] - Reported* Type Description Date Medical History colitis Medical History migraines Medical History blood clots (has trapease implan t) Medical History hernias Surgical History csection Surgical History tubes tied Surgical History appendectomy Surgical History partial hysterectomy Surgical History left elbow ulnar nerve decompre ssion Surgical History both ovaries removed Surgical History cholecystectomy Surgical History bladder suspension Surgical History left hand thumb joint removed Surgical History right hand arthritis cleaned ou t Surgical History right finger 2 and 3 ligaments Surgical History right thumb was done a second t roseann Hospitalization History see above [facility] Other Summary Purpose Family History No Family History Records FoundNo Family History Records FoundNo Family History Records FoundNo Family History Records FoundNo Family History Records FoundNo Family History Records Found Advance Directives No Advanced Directives Records Found Advance Directive Response Recorded Date/ Time Advance Directives No February 15 8 10:24am Reason for Referral Specialty Diagnoses / Procedures Referred By Randi cardona Referred To Contact Radiology Diagnoses Left hand pain Aliza Aguilar MD [address] [place] [address] Referral ID Status Reason Start Date Expiration Date Visits Requested Visits Authorized [id number] Authorized Patient Preference 06/16/2023 06/16/2024 3 3 Comments Near home, [place], [place] Specialty Diagnoses / Procedures Referred By Randi cardona Referred To Contact Radiology Diagnoses Left hand pain Procedures MR WRIST LEFT W/O Aliza Aguilar MD [address] [place] [address] [address] Referral ID Status Reason Start Date Expiration Date V isits Requested Visits Authorized [id number] Authorized 06/16/2023 06/15/2024 1 1 Specialty Diagnoses / Procedures Referred By Contac t Referred To Contact Radiology Diagnoses Left hand pain Procedures XR HAND LEFT 3 VIEWS [facility] [address] [place] [id number] [facility] [address] [place] [id number] Referral ID Status Reason Start Date Expiration Date Visits Re quested Visits Authorized [id number] Closed 06/16/2023 06/15/2024 1 1 Chief Complaint and Reason for Visit Chief Complaint median nerve karel krista Additional Source Comments INFORMATION SOURCE (unrecogn ized section and content) DATE CREATED AUTHOR 05/27/2021 [facility] DATE CREATED AUTHOR AUTHOR'S ORGANIZ ATION 03/03/2023 [facility] DATE CREATED AUTHOR AUTHOR'S ORGANIZ ATION 07/30/[address] [facility] DATE CREATED AUTHOR AUTHOR'S ORGANIZ ATION 08[facility]28/2023 [facility] DATE CREATED AUTHOR AUTHOR'S ORGANIZ ATION 09/03/2023 [facility] DATE CREATED AUTHOR AUTHOR'S ORGANIZ ATION 09/10/2023 [facility] REASON FOR VISIT (unrecogniz ed section and content) Reason Comments Hand/finger symptoms Specialty Diagnoses / Procedures Referred By Contac t Referred To Contact Radiology Diagnoses Left hand pain Procedures XR HAND LEFT 3 VIEWS [facility] [address] [place] [id number] [facility] [address] [place] [address] Referral ID Status Reason Start Date Expiration Date Visits Re quested Visits Authorized [id number] Closed 06/16/2023 06/15/2024 1 1 Reason Comments Hand/finger symptoms Care Teams (unrecognized sec tion and content) Rn Icu Relationship Specialty Start Date End Date Yesy Covarrubias, OT [address] [facility] [address] [place], [place] [id number] Occupational Therapist Occupational Therapy 06/30/20 Aliza Aguilar MD [address] [place], [place] Physician Orthopaedic Hand Service 06/30/20 Rn Icu Relationship Specialty Start Date End Date Yesy Covarrubias, OT [address] [facility] [place] [address] Occupational Therapist Occupational Therapy 06/30/20 Aliza Aguilar MD [address] [place] [address] Physician Orthopaedic Hand Service 06/30/20 Rn Icu Relationship Specialty Start Date End Date Yesy Covarrubias, OT [address] [facility] [place] [address] Occupational Therapist Occupational Therapy 06/30/20 Aliza Aguilar MD [address] [place] [address] Physician Orthopaedic Hand Service 06/30/20 Team Status: Active Member Role Status Dates [place] , DO Primary Care Provider Active Team Status: Inactive Member Role Status Dates [place] , DO Primary Care Provider Active Aliza Aguilar Attending Provider Active Rn Icu Relationship Specialty Start Date End Date Yesy Covarrubias, OT [address] [facility] [place] [place] [address] Occupational Therapist Occupational Therapy 06/30/20 Aliza Aguilar MD [address] [place] [address] Physician Orthopaedic Hand Service 06/30/20 Rn Icu Relationship Specialty Start Date End Date Yesy Covarrubias, OT [address] [facility] [place] [address] Occupational Therapist Occupational Therapy 06/30/20 Aliza Aguilar MD [address] [place] [address] Physician Orthopaedic Hand Service 06/30/20 Goals (unrecognized section and content) Goals may be documented in a n alternate section FOR RECORDS PERTAINING TO PATIENTS WHO ARE OR HAVE BEEN ENROLLED IN A CHEMICAL DEPENDENCY/SUBSTANCEABUSE PROGRAM, SOME INFORMATION MAY BE OMITTED. This clinical summary was aggregated from multiple sources. Caution should be exercised in using it in the provision of clinical care. This summary normalizes information from multiple sources, and as a consequence, information in this document may materially change the coding, format and clinical context of patient data. In addition, data may be omitted in some cases. CLINICAL DECISIONS SHOULD BE BASED ON THE PRIMARY CLINICAL RECORDS. [facility]. provides no warranty or guarantee of the accuracy or completeness of information in this document.
[2023-10-01 00:15] LABS: INR 2.98; Prothrombin Time 29.7 sec (9.0-11.6)
--- NOTE | 2023-10-01 00:42 | ED_ITS ---
HPI - Epistaxis General Chief Complaint: Epistaxis Stated Complaint: nose bleed Time Seen by Provider: 09/30/23 23:04 Source: patient Mode of arrival: walk-in Limitations: no limitations History of Present Illness HPI Narrative: 63-year-old female presents for nosebleed. It was coming from the right side and it started this time tonight. She is on Coumadin. No injury. No other bleeding such as from her gums. Related Data Home Medications Medication Instructions Recorded Confirmed acyclovir 400 mg tablet 400 mg PO DAILY 06/16/23 09/30/23 amitriptyline 100 mg tablet 100 mg PO BEDTIME 06/16/23 09/30/23 aripiprazole 10 mg tablet 10 mg PO BEDTIME 06/16/23 09/30/23 atorvastatin 10 mg tablet 10 mg PO QDAY 06/16/23 09/30/23 biotin 10,000 mcg-keratin 100 mg 1 tab PO QDAY 06/16/23 09/30/23 tablet (Biotin Plus Keratin) hxtoiljmec-iopbhgavnemep-ltulaauu 1 cap PO Q6H PRN pain 06/16/23 09/30/23 50 mg-300 mg-40 mg capsule cholecalciferol (vitamin D3) 50 50 mcg PO DAILY 06/16/23 09/30/23 mcg (2,000 unit) capsule (Vitamin D3) coenzyme Q10 100 mg capsule (Co 100 mg PO BID 06/16/23 09/30/23 Q-10) cyanocobalamin (vitamin B-12) 1,000 mcg IM .monthly 06/16/23 09/30/23 1,000 mcg/mL injection solution cyclobenzaprine 10 mg tablet 10 mg PO Q12H PRN muscle spasm 06/16/23 08/21/23 fluticasone propionate 220 2 puff inhalation Q12H 06/16/23 09/30/23 mcg/actuation HFA aerosol inhaler (Flovent HFA) folic acid 400 mcg tablet 400 mcg PO DAILY 06/16/23 09/30/23 fremanezumab-vfrm 225 mg/1.5 mL 225 mg subcut .monthly 06/16/23 09/30/23 subcutaneous auto-injector (Ajovy) hydrochlorothiazide 12.5 mg tablet 12.5 mg PO QDAY 06/16/23 09/30/23 hydrocodone 5 mg-acetaminophen 325 1 tab PO Q12H PRN pain 06/16/23 09/30/23 mg tablet hydroxyzine HCl 25 mg tablet 25 mg PO BEDTIME 06/16/23 09/30/23 levothyroxine 125 mcg tablet 125 mcg PO .every morning 06/16/23 09/30/23 linaclotide 72 mcg capsule 145 mcg PO QDAY 06/16/23 09/30/23 (Linzess) lisinopril 5 mg tablet 5 mg PO QDAY 06/16/23 09/30/23 magnesium 200 mg tablet 400 mg PO DAILY 06/16/23 09/30/23 melatonin 10 mg capsule 10 mg PO DAILY 06/16/23 09/30/23 montelukast 10 mg tablet 10 mg PO QDAY 06/16/23 09/30/23 omeprazole 40 mg capsule,delayed 40 mg PO BID 06/16/23 09/30/23 release phentermine 37.5 mg tablet 37.5 mg PO QDAY 06/16/23 09/30/23 potassium chloride 10 mEq 20 meq PO BID 06/16/23 09/30/23 tablet,extended release(part/cryst) prasterone (dhea) 25 mg capsule 25 mg PO BID 06/16/23 09/30/23 (DHEA) pseudoephedrine HCl 30 mg tablet 30 mg PO QDAY 06/16/23 08/21/23 vilazodone 40 mg tablet 40 mg PO QDAY 06/16/23 09/30/23 vit C 250 mg-vit E 90 mg-zinc 40 1 tab PO BID 06/16/23 09/30/23 mg-copper 1 nu-tpmaxn-mvzzza capsule (PreserVision AREDS-2) warfarin 1 mg tablet 1 mg PO .qtuesday 06/16/23 09/30/23 warfarin 2 mg tablet 2 mg PO QDAY 06/16/23 08/21/23 zinc 50 mg capsule 50 mg PO DAILY 06/16/23 09/30/23 alprazolam 0.25 mg tablet 0.25 mg PO DAILY PRN anxiety 07/17/23 09/30/23 aspirin 81 mg tablet,delayed 81 mg PO DAILY 07/17/23 09/30/23 release (Adult Aspirin Regimen) hydrocortisone 2.5 % topical cream 1 applic topical BID PRN allergic 07/17/23 09/30/23 reaction meclizine 12.5 mg tablet 12.5 mg PO BID PRN dizziness 07/17/23 09/30/23 ondansetron HCl 4 mg tablet 4 mg PO Q12H PRN nausea and 07/17/23 09/30/23 vomiting baclofen 10 mg tablet 10 mg PO Q12H PRN muscle spasm 09/30/23 09/30/23 pseudoephedrine HCl 30 mg tablet 30 mg PO DAILY 09/30/23 09/30/23 (Sudafed) Previous Rx's Medication Instructions Recorded sulfamethoxazole 800 1 tab PO BID 3 days #6 tabs 10/01/23 mg-trimethoprim 160 mg tablet (Bactrim DS) Allergies Allergy/AdvReac Type Severity Reaction Status Date / Time erythromycin base AdvReac Severe Verified 09/30/23 23:46 Penicillins AdvReac Severe Anaphylaxis Verified 09/30/23 23:15 cephalexin [From Keflex] AdvReac Intermediate Hives Verified 09/30/23 23:15 doxycycline AdvReac Intermediate Hives Verified 09/30/23 23:15 iodine AdvReac Intermediate Hives Verified 09/30/23 23:15 morphine AdvReac Intermediate Vomiting Verified 09/30/23 23:15 oxycodone [From Percocet] AdvReac Intermediate Vomiting Verified 09/30/23 23:15 ciprofloxacin [From Cipro] AdvReac Mild Hives Verified 09/30/23 23:15 novicane AdvReac Intermediate Migraine Uncoded 09/30/23 23:15 Review of Systems ROS Narrative A ten point review of systems is negative except as noted above. [facility] Medical History Presence of vena cava filter ?Z95.828 - Presence of other vascular implants and grafts (ICD-10) Hypertension ?I10 - Essential (primary) hypertension (ICD-10) Osteoarthritis ?M19.90 - Unspecified osteoarthritis, unspecified site (ICD-10) Hypothyroid ?E03.9 - Hypothyroidism, unspecified (ICD-10) Stage 3 chronic kidney disease ?N18.30 - Chronic kidney disease, stage 3 unspecified (ICD-10) Colitis ?K52.9 - Noninfective gastroenteritis and colitis, unspecified (ICD-10) DVT (deep venous thrombosis) ?I82.409 - Acute embolism and thrombosis of unspecified deep veins of unspecified lower extremity (ICD-10) Surgical History History of carpal tunnel release ?Z98.890 - Other specified postprocedural states (ICD-10) History of bladder suspension procedure ?Z98.890 - Other specified postprocedural states (ICD-10) ?Z87.448 - Personal history of other diseases of urinary system (ICD-10) History of hernia repair ?Z98.890 - Other specified postprocedural states (ICD-10) ?Z87.19 - Personal history of other diseases of the digestive system (ICD-10) Hx of cholecystectomy ?Z90.49 - Acquired absence of other specified parts of digestive tract (ICD- 10) H/O colonoscopy ?Z98.890 - Other specified postprocedural states (ICD-10) History of esophagogastroduodenoscopy (EGD) ?Z98.890 - Other specified postprocedural states (ICD-10) History of decompression of ulnar nerve ?Z98.890 - Other specified postprocedural states (ICD-10) History of appendectomy ?Z90.49 - Acquired absence of other specified parts of digestive tract (ICD- 10) History of hysterectomy ?Z90.710 - Acquired absence of both cervix and uterus (ICD-10) Delivery by section History of laparoscopy ?Z98.890 - Other specified postprocedural states (ICD-10) Social History Smoking status: Former smoker Exam Narrative Exam Narrative: Nurses note and vital signs reviewed and patient is not hypoxic. General: The patient appears well and in no apparent distress. Patient is resting comfortably on cart. Skin: Warm, dry, no pallor noted. There is no rash noted. Head: Normocephalic, atraumatic Eye: Normal conjunctiva, no drainage Ears, Nose, Mouth, and Throat: oral mucosa is moist. nasal clamp in place. Cardiovascular: not tachycardic Respiratory: Patient is in no distress, no accessory muscle use, lungs are clear to auscultation, no wheezing, rales or rhonchi Back: non-tender GI: nontender Musculoskeletal: The patient has no evidence of calf tenderness, no pitting edema, symmetrical pulses noted bilaterally Neurological: A&O, normal speech Psychiatric: Cooperative Constitutional Vital Signs, click to edit/add: Last Vital Signs Temp 97.6 F 09/30/23 23:10 Pulse 101 H 09/30/23 23:10 Resp 16 09/30/23 23:10 BP 147/76 H 09/30/23 23:10 Pulse Ox 97 09/30/23 23:10 O2 Del Method Room Air 09/30/23 23:10 Course Vital Signs Vital signs: Vital Signs Temperature 97.6 F 09/30/23 23:10 Pulse Rate 101 H 09/30/23 23:10 Respiratory Rate 16 09/30/23 23:10 Blood Pressure 147/76 H 09/30/23 23:10 Pulse Oximetry 97 09/30/23 23:10 Oxygen Delivery Method Room Air 09/30/23 23:10 Temperature 97.6 F 09/30/23 23:10 Pulse Rate 101 H 09/30/23 23:10 Respiratory Rate 16 09/30/23 23:10 Blood Pressure 147/76 H 09/30/23 23:10 Pulse Oximetry 97 09/30/23 23:10 Oxygen Delivery Method Room Air 09/30/23 23:10 MDM - Epistaxis MDM Narrative Medical decision making narrative: packing to be removed in three days. She is placed on a short course of prophylactic Bactrim. Findings are discussed with the patient and her . she is going to hold her Coumadin next dose and call the Coumadin clinic. Differential Diagnosis Differential diagnosis: Likely anterior epistaxis and posterior epistaxis Lab Data Attestation: I reviewed the patient's lab results. Labs: Lab Results 09/30/23 Range/Units 23:55 PT 29.7 H (9.0-11.6) sec INR 2.98 Discharge Plan Discharge Chief Complaint: Epistaxis Clinical Impression: Epistaxis Patient Disposition: Home, Self-Care Time of Disposition Decision: 00:40 Condition: Good Mode of Transportation: Private Vehicle Prescriptions / Home Meds: New sulfamethoxazole-trimethoprim [Bactrim DS] 800-160 mg tablet 1 tab PO BID 3 Days Qty: 6 0RF No Action warfarin 2 mg tablet 2 mg PO QDAY Rx Instructions: 2mg everyday, 3mg every Monday warfarin 1 mg tablet 1 mg PO .qtuesday Rx Instructions: Pt takes 1mg with 2mg for total of 3mg every Monday acyclovir 400 mg tablet 400 mg PO DAILY amitriptyline 100 mg tablet 100 mg PO BEDTIME aripiprazole 10 mg tablet 10 mg PO BEDTIME atorvastatin 10 mg tablet 10 mg PO QDAY hkxmgjggmh-ywdzvygotbith-uykr 50-300-40 mg capsule 1 cap PO Q6H PRN (Reason: pain) cyanocobalamin (vitamin B-12) 1,000 mcg/mL solution 1,000 mcg IM .monthly cyclobenzaprine 10 mg tablet 10 mg PO Q12H PRN (Reason: muscle spasm) fluticasone propionate [Flovent HFA] 220 mcg/actuation HFA aerosol inhaler 2 puff INHALATION Q12H Ajovy Autoinjector 225 mg/1.5 mL auto-injector 225 mg SUBCUT .monthly hydrochlorothiazide 12.5 mg tablet 12.5 mg PO QDAY hydrocodone-acetaminophen 5-325 mg tablet 1 tab PO Q12H PRN (Reason: pain) hydroxyzine HCl 25 mg tablet 25 mg PO BEDTIME levothyroxine 125 mcg tablet 125 mcg PO .every morning Linzess 72 mcg capsule 145 mcg PO QDAY Patient Comments: on empty stomach before a meal lisinopril 5 mg tablet 5 mg PO QDAY montelukast 10 mg tablet 10 mg PO QDAY omeprazole 40 mg capsule,delayed release(DR/EC) 40 mg PO BID phentermine 37.5 mg tablet 37.5 mg PO QDAY potassium chloride 10 mEq tablet,ER particles/crystals 20 meq PO BID vilazodone 40 mg tablet 40 mg PO QDAY Biotin Plus Keratin 10,000-100 mcg-mg tablet 1 tab PO QDAY Patient Comments: with supper folic acid 400 mcg tablet 400 mcg PO DAILY cholecalciferol (vitamin D3) [Vitamin D3] 50 mcg (2,000 unit) capsule 50 mcg PO DAILY melatonin 10 mg capsule 10 mg PO DAILY magnesium 200 mg tablet 400 mg PO DAILY PreserVision AREDS-2 250-90-40-1 mg capsule 1 tab PO BID coenzyme Q10 [Co Q-10] 100 mg capsule 100 mg PO BID prasterone (dhea) [DHEA] 25 mg capsule 25 mg PO BID zinc 50 mg capsule 50 mg PO DAILY pseudoephedrine HCl 30 mg tablet 30 mg PO QDAY baclofen 10 mg tablet 10 mg PO Q12H PRN (Reason: muscle spasm) pseudoephedrine HCl [Sudafed] 30 mg tablet 30 mg PO DAILY alprazolam 0.25 mg tablet 0.25 mg PO DAILY PRN (Reason: anxiety) aspirin [Adult Aspirin Regimen] 81 mg tablet,delayed release (DR/EC) 81 mg PO DAILY ondansetron HCl 4 mg tablet 4 mg PO Q12H PRN (Reason: nausea and vomiting) meclizine 12.5 mg tablet 12.5 mg PO BID PRN (Reason: dizziness) hydrocortisone 2.5 % cream 1 applic TOPICAL BID PRN (Reason: allergic reaction) Instructions: Nosebleed (ED) Additional Instructions: packing to be removed in three days Stand Alone Forms: Portal Instructions Referrals: [place] DO [Primary Care Provider] - 1 week Procedures ED Procedure Instructions Procedures Procedures: the following procedure was performed by me. 5.5 cm anterior packing applied to the right nares and inflated. Initially she had some further bleeding so it was removed and a new one was placed and she had no further bleeding.
[2023-10-01 00:47] VITALS: BP 144/102; PULSE 98; RESP 18; O2SAT 100
== END 2023-10-01 00:50 | disposition home or self-care (01) ==
PROVIDERS: Emergency Provider Emergency Medicine; PCP Family Medicine
DX: R04.0 Epistaxis (principal); M19.90 Unspecified osteoarthritis, unspecified site; E03.9 Hypothyroidism, unspecified; I12.9 Hypertensive chronic kidney disease with stage 1 through stage 4 chronic kidney disease, or unspecified chronic kidney disease; N18.30 Chronic kidney disease, stage 3 unspecified; Z98.890 Other specified postprocedural states; Z90.49 Acquired absence of other specified parts of digestive tract; Z90.710 Acquired absence of both cervix and uterus; Z87.891 Personal history of nicotine dependence; Z79.01 Long term (current) use of anticoagulants; Z79.899 Other long term (current) drug therapy; Z86.718 Personal history of other venous thrombosis and embolism; Z79.890 Hormone replacement therapy; Z79.82 Long term (current) use of aspirin; Z95.828 Presence of other vascular implants and grafts
CPT/HCPCS: 30901; 36415; 85610; 99283

== ENCOUNTER 2023-10-03 10:40 | Emergency (ER) | payer BC, MEDICARE, SELFPAY ==
[2023-10-03 10:46] VITALS: BP 100/70; PULSE 120; RESP 22; TEMP 36.4; O2SAT 99; BMI 29.3
--- OUTSIDE RECORDS SUMMARY | 2023-10-03 10:54 | XMS_ITS | CCD ---
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 Unavailable [phone] A Primary Care Provider Aliza [...] Acetaminophen / oxyCODONE Drug Allergy stomach upset [employer] [facility] Other (3 sources) Adhesive Tape Propensity to adverse reactions rash [facility] [employer] Other (2 sources) Cephalexin Drug Allergy anaphylaxis [facility] [employer] Other (9 sources) Erythromycin; Translations: [ERYTHROMYCIN] Drug Allergy 02-01-20 08 Other [facility] (4 sources) Iodine; Translations: [iodine] Drug Allergy 01-31-20 13 rash [facility] Repository (3 sources) Latex Propensity to adverse reactions rash [facility] [employer] Other (3 sources) Penicillin G Benzathine Drug allergy anaphylaxis [facility] [employer] Other (3 sources) Procaine Drug Allergy headaches [facility] [employer] Other (2 sources) Cephalexin; Translations: [Keflex] Drug Allergy 01-31-20 13 anaphylaxis [facility] (1 source) Novocain Drug allergy Unknown [facility] [employer] Other (6 sources) Acetaminophen; Translations: [ACETAMINOPHEN] Drug [...] reactions to drug 09-03-20 13 [facility]actic [facility] (6 sources) Quinolones (Antibiotic); Translations: [QUINOLONES] Propensity to adverse reactions to drug 03-31-20 08 Respiratory Problems [facility] Work Phone: (6 sources) Sulfonamides (Antibiotic); Translations: [SULFA ANTIBIOTICS] Propensity to adverse reactions to drug 02-01-20 08 Rash [facility] (6 sources) Bandage Tape; Translations: [...] Phone: (1 source) Ciprofloxacin Drug Allergy [facility] (1 source) Iodine (And Iodine Containting Drugs) Drug allergy (disorder) 01-31-20 13 [facility] (1 source) Latex Drug allergy (disorder) 01-31-20 13 [facility] (1 source) Morphine Drug Allergy 06-09-20 16 [facility] (1 source) Penicillins Drug allergy (disorder) 01-31-20 13 [facility] (1 source) Sulfonamides (Antibiotic) Drug allergy (disorder) 01-31-20 13 [facility] (1 source) Darvocet-N 100 Drug allergy (disorder) 01-31-20 13 [facility] (1 source) E.E.S. Drug allergy (disorder) 01-31-20 13 [facility] Medications Current Medications Medication Drug Class(es) Dates Sig (Normalized) Sig (Original) acetaminophen 300 mg / butalbital 50 mg / caffeine 40 mg oral capsule (11 sources) Barbiturate, Central Nervous System Stimulant, Methylxanthine Qvupqtdwqw-VYXJ-Kw ffeine 50-300-40 MG CAPS Take by mouth daily as needed. 0 Active take 1 capsule by mo uth every four hours Agfhewofuy-XETR-Cywylvwn 50-325-40 MG 1 capsule as needed Orally every 4 hrs Not-Taking Fioricet Active acetaminophen 325 mg / HYDROcodone bitartrate 5 mg oral tablet (10 sources) Opioid Agonist take 1 tablet by mouth once hydrocodone-acetaminophen (NORCO) 5-325 mg per tablet Take 1 Tablet by mouth. 0 Active HYDROcodone-Acet aminophen 7.5-300 MG Orally Not-Taking [place] Active acyclovir 400 mg oral tablet (8 [...] by mouth daily. Followed in coumadin clinic [place], [place] 0 Active take 1 tablet by [...] 4 mg/0.1 mL nasal liquid Instill 1 [place] into one nostril (alternate sides) as needed. 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 [facility], [address] Chloride [Moles/Vol] 99 mmol/L Normal (98 - 107) [facility] Comment on above: Order Comment: FACIL ITY: [facility] [id number] Performed By: #### C HEM-B #### [facility] [address] [facility], [address] CO2 [Moles/Vol] 27 mmol/L Normal (22 - 30) [facility] Comment on above: Order Comment: FACIL ITY: [facility] [id number] Performed By: #### C HEM-B #### [facility] [address] [facility], [address] Creatinine [Mass/Vol] 0.74 mg/dL Normal (0.52 - 1.04) [facility] Comment on above: Order Comment: FACIL ITY: [facility] [id number] Performed By: #### C HEM-B #### [facility] [address] [place], [address] GFR- AMER 95.6 ML/M1.7 Normal (60.0 - 140.1) [facility] Comment on above: Order Comment: FACIL ITY: [facility] [id number] Performed By: #### C HEM-B #### [facility] [address] [place], [address] GFR-NON AFRIC-AMER 79.0 ML/M1.7 Normal (60.0 - 115.8) [facility] Comment on above: Order Comment: FACIL ITY: [facility] [id number] Performed By: #### C HEM-B #### [facility] [address] [place], [address] Glucose [Mass/Vol] 100 mg/dL Normal (74 - 106) [facility] Comment on above: Order Comment: FACIL ITY: [facility] [id number] Performed By: #### C HEM-B #### [facility] [address] [place], [address] Potassium [Moles/Vol] 4.6 mmol/L Normal (3.5 - 5.1) [facility] Comment on above: Order Comment: FACIL ITY: [facility] [id number] Performed By: #### C HEM-B #### [facility] [address] [place], [address] Sodium [Moles/Vol] 136 mmol/L Low (137 - 145) [facility] Comment on above: Order Comment: FACIL ITY: [facility] [id number] Performed By: #### C HEM-B #### [facility] [address] [place], [address] Urea nitrogen [Mass/Vol] 11 mg/dL Normal (7 - 17) [facility] Comment on above: Order Comment: FACIL ITY: [facility] [id number] Performed By: #### C HEM-B #### [facility] [address] 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 Normal [facility] Special Needs Bus Driver Authentication Interface Message Text Patient Office Note or Post OP Note Name:Madan Perry Date: 08/25/2023 CC: left wrist pain at [facility] area No chief complaint on file. EXAM: [...] of this patient. Aliza Aguilar MD Injection Procedure.[facility] 08/25/2023 [id number] Madan Perry The patient requested an injection [...] alcohol and a dressing applied. Normal [facility] MR wrist LT wo conon 023 MR wrist LT wo con [facility] [place] [address] [place] [address] MRI Report Signed Patient: Madan Perry MR#: [id number] : 1960 Acct:[id number] Age/Sex: 63 / F ADM Date: 07/20/23 Loc: [facility] Room: Type: [facility] Attending Dr: Aliza Aguilar Copies to: Aliza Aguilar Ordering Provider: Aliza Aguilar Date of Service: 07/20/23 MR/MR hand LT wo con: MEDIAN NERVE COMPRESSION ([id number]) MR/MR wrist LT wo con: MEDIAN NERVE COMPRESSION ([id number]) XR/XR pre/post mri xray: MEDIAN NERVE COMPRESSION [...] Jose Dial M.D.07/21/2023 7:38 PM Dictation Location: [place] [address] Transcribed By: [facility] 07/21/231937 Dictated By: Jose Dial DO 07/20/23 1525 Signed By: 07/21/231937 [facility] Telephone Encounteron 2022 Special Needs Bus Driver Authentication Interface Message Text Spoke with patient and scheduled. Normal [facility] Telephone Encounteron 2022 Special Needs Bus Driver Authentication Interface Message Text Pt called as [...] she would need something sooner. Contact pt @[phone] Normal [facility] Addendum Noteon 06-16-2023 Special Needs Bus Driver Authentication Interface Message Text Addended by: ALIZA AGUILAR on: 06/16/2023 11:34 AM Modules accepted: Orders Normal [facility] Progress Noteson 06-16-2023 Special Needs Bus Driver Authentication Interface Message Text Patient Office Note [...] this patient. Aliza Aguilar MD Normal [facility] Special Needs Bus Driver Authentication Interface Message Text CC: Left hand pain Pain Left wrist and hand; tingling to middle and ring fingers. Pt states ganglion which was removed has returned and is painful. CMC joint painful. 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 Normal [facility] XR HAND LEFT 3 VIEWSon 06-16 [...] findings. Left hand MACRO: None Normal [facility] XR Hand - left 3 Viewson [...] with the findings. Left hand MACRO: None [facility] Radiology Study observation (narrative) [facility] XR Hand - left 3 ViewsOrdere d By: Alberto Llanes on 06-16-2023 [facility]: US DARNELL DOP LEG BILon [...] [place] Date: 2023-01-27 17:22 Normal [facility] CBC AUTO DIFFon 01-12-2023 BASO # 0.1 103/ul Normal 0.0-0.1 [facility] Comment on above: Performed By: #### C BC #### [facility] [address] [place] [address] Dr. Rocio Hernandez Basophils/100 WBC (Bld) 1.0 % Normal 0.2-2.0 [facility] Comment on above: Performed By: #### C BC #### [facility] [address] [place] [address] Dr. Rocio Hernandez EO # 0.2 103/ul Normal 0.0-0.7 [facility] Comment on above: Performed By: #### C BC #### [facility] [address] [place] [address] Dr. Rocio Hernandez Eosinophils/100 WBC (Bld) 2.9 % Normal 0.9-7.0 [facility] Comment on above: Performed By: #### C BC #### [facility] [address] [place] [address] Dr. Rocio Hernandez Erythrocyte distribution width (RBC) [Ratio] 14.1 % Normal 11.0-15.0 [facility] Comment on above: Performed By: #### C BC #### [facility] [address] [place] [address] Dr. Rocio Hernandez Hematocrit (Bld) [Volume fraction] 41.2 % Normal 36.0-48.0 [facility] Comment on above: Performed By: #### C BC #### [facility] [address] [place] [address] Dr. Rocio Hernandez Hemoglobin (Bld) [Mass/Vol] 13.6 g/dL Normal 12.0-16.0 [facility] Comment on above: Performed By: #### C BC #### [facility] [address] [place] [address] Dr. Rocio Hernandez IG # 0.01 10e3/ul Normal 0.00-0.03 [facility] Comment on above: Performed By: #### C BC #### [facility] [address] [place] [address] Dr. Rocio Hernandez IG % 0.2 % Normal 0.0-0.5 [facility] Comment on above: Performed By: #### C BC #### [facility] [address] [place] [address] Dr. Rocio Hernandez LYMPH # 1.3 103/ul Normal 1.2-3.8 [facility] Comment on above: Performed By: #### C BC #### [facility] [address] [place] [address] Dr. Rocio Hernandez Lymphocytes/100 WBC (Bld) 21.9 % Normal 20.5-60.0 [facility] Comment on above: Performed By: #### C BC #### [facility] [address] [place] [address] Dr. Rocio Hernandez MANUAL DIFF REQ NO Normal [facility] Comment on above: Performed By: #### C BC #### [facility] [address] [place] [address] Dr. Rocio Hernandez MCH (RBC) [Entitic mass] 28.4 pg Normal 26.7-34.0 [facility] Comment on above: Performed By: #### C BC #### [facility] [address] [place] [address] Dr. Rocio Hernandez MCHC (RBC) [Mass/Vol] 33.0 g/dL Normal 29.9-35.2 [facility] Comment on above: Performed By: #### C BC #### [facility] [address] [place] [address] Dr. Rocio Hernandez MCV (RBC) [Entitic vol] 86.0 fL Normal 81.0-99.0 [facility] Comment on above: Performed By: #### C BC #### [facility] [address] [place] [address] [address] Rocio Hernandez MONO # 0.6 103/ul Normal 0.3-0.8 [facility] Comment on above: Performed By: #### C BC #### [facility] [address] [place] [address] [address] Rocio Hernandez Monocytes/100 WBC (Bld) 10.3 % Normal 1.7-12.0 [facility] Comment on above: Performed By: #### C BC #### [facility] [address] [place] [address] Dr. Rocio Hernandez NEUT # 3.8 103/ul Normal 1.4-6.5 [facility] Comment on above: Performed By: #### C BC #### [facility] [address] [place] [address] Dr. Rocio Hernandez Neutrophils/100 WBC (Bld) 63.7 % Normal 43.0-75.0 [facility] Comment on above: Performed By: #### C BC #### [facility] [address] [place] [address] Dr. Rocio Hernandez Platelet mean volume (Bld) [Entitic vol] 9.0 fL Critically low 9.5-13.5 [facility] Comment on above: Performed By: #### C BC #### [facility] [address] [place] [address] Dr. Rocio Hernandez PLT 360 103/ul Normal 150-450 [facility] Comment on above: Performed By: #### C BC #### [facility] [address] [place] [address] Dr. Rocio Hernandez RBC 4.79 106/ul Normal 4.20-5.40 [facility] Comment on above: Performed By: #### C BC #### [facility] [address] [place] [address] Dr. Rocio Hernandez WBC 5.9 103/ul Normal 4.0-11.0 [facility] Comment on above: Performed By: #### C BC #### [facility] [address] [place] [address] [address] Rocio Hernandez FREE T3on 01-12-2023 FREE T3 2.31 pg/mlL Normal 2.18-3.98 [facility] Comment on above: Performed By: #### T SH, CMP, LIPID, FT3 ####[facility] [address] [place] [address]DrClem Hernandez FREE T4on 01-12-2023 Free T4 [Mass/Vol] 1.21 ng/dL Normal 0.76-1.46 [facility] Comment on above: Performed By: #### B 12FOL, FT4 #### [facility] [address] [address] [address] Rocio Hernandez GLYCOHEMOGLOBIN A1Con 2022 ADA RECOMMENDATION SEE BELOW Normal [facility] Comment on above: Result Comment: ADA RECOMMENDED LIMIT 4.0 - 6.0 ADA THERAPEUTIC TARGET < 7.0 ACTION SUGGESTED > 7.0 Performed By: #### A 1C ####[facility] [address] [place] [address]DrClem Hernandez Glucose [Mass/Vol] 123 mg/dL Normal [facility] Comment on above: Performed By: #### A 1C ####[facility] [address] [place] [address]DrClem Hernandez HbA1c (Bld) [Mass fraction] 5.9 % Normal 4.5-6.2 [facility] Comment on above: Performed By: #### A 1C ####[facility] [address] [place] [address]Dr. Rocio Hernandez LIPID PROFILEon 01-12-2023 CHOL-HDL RATIO NORM SEE BELOW Normal [facility] Comment on above: Result Comment: 3.3 - 4.4 LOW RISK 4.4 - 7.1 AVERAGE RISK 7.1 - 11.0 MODERATE RISK >11.0 HIGH RISK Performed By: #### T SH, CMP, LIPID, FT3 #### [facility] [address] [place] [address] [address] Rocio Hernandez Cholesterol [Mass/Vol] 203 mg/dL Critically high <=200 [facility] Comment on above: Performed By: #### T SH, CMP, LIPID, FT3 #### [facility] [address] [place] [address] [address] Rocio Hernandez Cholesterol in HDL [Mass/Vol] 89 mg/dL Critically high 40-60 [facility] Comment on above: Performed By: #### T SH, CMP, LIPID, FT3 #### [facility] [address] [place] [address] [address] Rocio Hernandez Cholesterol in LDL [Mass/Vol] 87.8 mg/dL Normal [facility] Comment on above: Performed By: #### T SH, CMP, LIPID, FT3 #### [facility] [address] [place] [address] [address] Rocio Hernandez Cholesterol.total/C holesterol in HDL [Mass ratio] 2.3 {ratio} Normal [facility] Comment on above: Performed By: #### T SH, CMP, LIPID, FT3 #### [facility] [address] [address] [address] Rocio Hernandez HDL NORMAL > or = 60 mg/dl - LO W CARDIOVASCULAR RISK <40 mg/dl - HIGH CARDIOVASCULAR RISK Normal [facility] Comment on above: Performed By: #### T SH, CMP, LIPID, FT3 #### [facility] [address] [address] [address] Rocio Hernandez LDL CALC NORMAL SEE BELOW Normal [facility] Comment on above: Result Comment: <100 mg/dl OPTIMAL 100 - 129 mg/dl NEAR OR ABOVE OPTIMAL 130 - 159 mg/dl BORDERLINE HIGH 160 - 189 mg/dl HIGH >190 mg/dl VERY HIGH Performed By: #### T SH, CMP, LIPID, FT3 #### [facility] [address] [address] [address] Rocio Hernandez Triglyceride [Mass/Vol] 131 mg/dL Normal <=150 [facility] Comment on above: Performed By: #### T SH, CMP, LIPID, FT3 #### [facility] [address] [address] [address] Rocio Hernandez VLDL CALC 26.2 mg/dL Normal [facility] Comment on above: Performed By: #### T SH, CMP, LIPID, FT3 #### [facility] [address] [address] [address] Rocio Hernandez MICROALB CREAT RATIO RANDOMo n 01-12-2023 mALB <1.3 Normal <=30.0 [facility] Comment on above: Performed By: #### M CRR ####[facility] [address] [place] [id number] Hernandez MALB CR RATIO 13.6 mg/g Normal 0.0-29.9 [facility] Comment on above: Performed By: #### M CRR ####[facility] [address] [place] [id number]. Rocio Hernandez MALB CR RATIO RANGE SEE BELOW Normal [facility] Comment on above: Result Comment: NO M ICROALBUMINURIA 0-29 MG/G CLINICAL MICROALBUMINURIA 30-300 MG/G MACROALBUMINURIA >300 MG/G Performed By: #### M CRR ####[facility] [address] [place] [id number]. Rocio Hernandez URINE CREAT 95.84 mg/dL Normal 20.00-300.00 [facility] Comment on above: Performed By: #### M CRR ####[facility] [address] [place] [id number]. Rocio Hernandez PROF 14(COMP METB)on 023 Albumin [Mass/Vol] 3.8 g/dL Normal 3.4-5.0 [facility] Comment on above: Performed By: #### T SH, CMP, LIPID, FT3 #### [facility] [address] [address] [address] Rocio Hernandez Albumin/Globulin [Mass ratio] 0.9 {ratio} Normal [facility] Comment on above: Performed By: #### T SH, CMP, LIPID, FT3 #### [facility] [address] [address] [address] Rocio Hernandez ALP [Catalytic activity/Vol] 111 U/L Normal 46-116 [facility] Comment on above: Performed By: #### T SH, CMP, LIPID, FT3 #### [facility] [address] [address] [address] Rocio Hernandez ALT [Catalytic activity/Vol] 42 U/L Normal 14-59 [facility] Comment on above: Performed By: #### T SH, CMP, LIPID, FT3 #### [facility] [address] [address] [address] Rocio Hernandez Anion gap [Moles/Vol] 10.8 mmol/L Normal [facility] Comment on above: Performed By: #### T SH, CMP, LIPID, FT3 #### [facility] [address] [place] [address] Dr. Rocio Hernandez AST [Catalytic activity/Vol] 24 U/L Normal 15-37 [facility] Comment on above: Performed By: #### T SH, CMP, LIPID, FT3 #### [facility] [address] [place] [address] Dr. Rocio Hernandez Bilirubin [Mass/Vol] 0.4 mg/dL Normal 0.2-1.0 [facility] Comment on above: Performed By: #### T SH, CMP, LIPID, FT3 #### [facility] [address] [place] [address] Dr. Rocio Hernandez Calcium [Mass/Vol] 9.6 mg/dL Normal 8.5-10.1 [facility] Comment on above: Performed By: #### T SH, CMP, LIPID, FT3 #### [facility] [address] [place] [address] Dr. Rocio Hernandez Chloride [Moles/Vol] 93 mmol/L Critically low 98-107 [facility] Comment on above: Performed By: #### T SH, CMP, LIPID, FT3 #### [facility] [address] [place] [address] Dr. Rocio Hernandez CO2 [Moles/Vol] 31.2 mmol/L Normal 21.0-32.0 [facility] Comment on above: Performed By: #### T SH, CMP, LIPID, FT3 #### [facility] [address] [address] [address] Rocio Hernandez Creatinine [Mass/Vol] 1.02 mg/dL Normal 0.55-1.02 [facility] Comment on above: Performed By: #### T SH, CMP, LIPID, FT3 #### [facility] [address] [address] [address] Rocio Hernandez EGFR-AF IRANIAN >60 Normal >=60 [facility] Comment on above: Performed By: #### T SH, CMP, LIPID, FT3 #### [facility] [address] [address] [address] Rocio Hernandez EGFR-NON AF IRANIAN 55 mL/min/1.73m2 Critically low >=60 [facility] Comment on above: Performed By: #### T SH, CMP, LIPID, FT3 #### [facility] [address] [place] [address] Dr. Rocio Hernandez Globulin (S) [Mass/Vol] 4.4 g/dL Normal [facility] Comment on above: Performed By: #### T SH, CMP, LIPID, FT3 #### [facility] [address] [address] [address] Rocio Hernandez Glucose [Mass/Vol] 102 mg/dL Normal 74-106 [facility] Comment on above: Performed By: #### T SH, CMP, LIPID, FT3 #### [facility] [address] [address] [address] Rocio Hernandez Potassium [Moles/Vol] 4.0 mmol/L Normal 3.5-5.1 [facility] Comment on above: Performed By: #### T SH, CMP, LIPID, FT3 #### [facility] [address] [address] [address] Rocio Hernandez Protein [Mass/Vol] 8.2 g/dL Normal 6.4-8.2 [facility] Comment on above: Performed By: #### T SH, CMP, LIPID, FT3 #### [facility] [address] [address] [address] Rocio Hernandez Sodium [Moles/Vol] 131 mmol/L Critically low 136-145 [facility] Comment on above: Performed By: #### T SH, CMP, LIPID, FT3 #### [facility] [address] [address] [address] Rocio Hernandez Urea nitrogen [Mass/Vol] 6.0 mg/dL Critically low 7.0-18.0 [facility] Comment on above: Performed By: #### T SH, CMP, LIPID, FT3 #### [facility] [address] [address] [address] Rocio Hernandez Urea nitrogen/Creatinine [Mass ratio] 5.9 mg/mg Normal [facility] Comment on above: Performed By: #### T SH, CMP, LIPID, FT3 #### [facility] [address] [place] [address] Dr. Rocio Hernandez TSHon 01-12-2023 TSH 5.647 uIU/mL Critically high 0.358-3.740 [facility] Comment on above: Performed By: #### T SH, CMP, LIPID, FT3 #### [facility] [address] [place] [address] Dr. Rocio Hernandez VIT B12 AND FOLATEon 023 Cobalamin (Vitamin B12) [Mass/Vol] 1189.0 pg/mL Critically high 193.0-986.0 [facility] Comment on above: Performed By: #### B 12FOL, FT4 #### [facility] [address] [place] [address] Dr. Rocio Hernandez FOLATE 27.30 ng/mL Normal 8.60-58.90 [facility] Comment on above: Performed By: #### B 12FOL, FT4 #### [facility] [address] [place] [address] Dr. Rocio Hernandez MG MAMM SCREEN 3D TANIA CADon 12-19-2022 MG MAMM SCREEN 3D TANIA CAD Patient: MADAN PERRY Exam Date: 12/19/2022 : 1960 Gender:F Ordering : DR T[place] D.O. Admission #: [id number] Family : Order #: [id number] CLICK HERE TO VIEW EXAM RADIOLOGY REPORT [...] ovarian cancer at age 54. LOCATION: [facility] BREAST COMPOSITION: Scattered areas fibroglandular density. [...] M.D. on 12/19/2022 at 11:19 Normal [facility] XR DEXA BONE DENSITYon 12-19 XR [...] by: RODRI FLORES Date: 2022-12-19 10:01 Normal [facility] FREE T3on 03-22-2022 FREE T3 2.43 pg/mlL Normal 2.18-3.98 [facility] Comment on above: Performed By: #### B MP, FT3, TSH ####[facility] [address] [address]Dr. Rocio Hernandez FREE T4on 03-22-2022 Free T4 [Mass/Vol] 1.43 ng/dL Normal 0.76-1.46 [facility] Comment on above: Performed By: #### F T4 ####[facility] [address] [place], [place] [address]Dr. Rocio Hernandez PROF CHEM 8 (BAS METB)on Anion gap [Moles/Vol] 10.2 mmol/L Normal [facility] Comment on above: Performed By: #### B MP, FT3, TSH ####[facility] [address] [address]Dr. Rocio Hernandez Calcium [Mass/Vol] 8.8 mg/dL Normal 8.5-10.1 [facility] Comment on above: Performed By: #### B MP, FT3, TSH ####[facility] [address] [address]Dr. Rocio Hernandez Chloride [Moles/Vol] 104 mmol/L Normal 98-107 [facility] Comment on above: Performed By: #### B MP, FT3, TSH ####[facility] [address] [address]Dr. Rocio Hernandez CO2 [Moles/Vol] 31.7 mmol/L Normal 21.0-32.0 [facility] Comment on above: Performed By: #### B MP, FT3, TSH ####[facility] [address] [address]Dr. Rocio Hernandez Creatinine [Mass/Vol] 0.96 mg/dL Normal 0.55-1.02 [facility] Comment on above: Performed By: #### B MP, FT3, TSH ####[facility] [address] [address]Dr. Rocio Hernandez EGFR-AF IRANIAN >60 Normal >=60 [facility] Comment on above: Performed By: #### B MP, FT3, TSH ####[facility] [address] [address]Dr. Rocio Hernandez EGFR-NON AF IRANIAN 59 mL/min/1.73m2 Critically low >=60 [facility] Comment on above: Performed By: #### B MP, FT3, TSH ####[facility] [address] [address]Dr. Rocio Hernandez Glucose [Mass/Vol] 110 mg/dL Critically high 74-106 T [facility] Comment on above: Performed By: #### B MP, FT3, TSH ####[facility] [address] [address]Dr. Rocio Hernandez Potassium [Moles/Vol] 2.9 mmol/L Critically low 3.5-5.1 [facility] Comment on above: Result Comment: TEST REPEATED CRITICAL VALUE VERIFIED Performed By: #### B MP, FT3, TSH ####[facility] [address] [place], [place] [address]Dr. Rocio Hernandez Sodium [Moles/Vol] 141 mmol/L Normal 136-145 [facility] Comment on above: Performed By: #### B MP, FT3, TSH ####[facility] [address] [address]Dr. Rocio Hernandez Urea nitrogen [Mass/Vol] 12.0 mg/dL Normal 7.0-18.0 [facility] Comment on above: Performed By: #### B MP, FT3, TSH ####[facility] [address] [place], [place] [address]Dr. Rocio Hernandez Urea nitrogen/Creatinine [Mass ratio] 12.5 mg/mg Normal [facility] Comment on above: Performed By: #### B MP, FT3, TSH ####[facility] [address] [place], [place] [address]Hd. Rocio Hernandez TSHon 03-22-2022 TSH 0.137 uIU/mL Critically low 0.358-3.740 [facility] Comment on above: Performed By: #### B MP, FT3, TSH ####[facility] [address] [place], [place] [address]Mo. Rocio Hernandez Patient Letter FTMCon 2020 Patient Letter FT (Inserted Image. Wilda ble to display) May 26, 2021 MADAN PERRY [address] [place] [address] MADAN PERRY 1960 Dear Madan, This is a SECOND ATTEMPT to remind you that you are due for an appointment with [facility]. Please contact our office at [phone] to schedule an appointment at your earliest convenience. Thank you, [facility] Reminderson 05-26-2021 Reminders - From: Jane Onofre To: [facility] - Reminders/Recalls; Sent: 01/18/2021 12:33:31 EDT Show up: 04/25/2021 12:33:00 EDT Subject: Ambulatory Reminder Due Date/Time: 06/09/2021 12:33:00 EDT Reminder/Recall sara peace 5 year colon 06/09/2021 first recall letter second rcall letter Normal [facility] Patient Letter FTon 2020 Patient Letter FT (Inserted Image. Wilda ble to display) May 05, 2021 MADAN PERRY [address] [place] [address] MADAN PERRY 1960 Dear Madan, This is a reminder that you are due for an appointment with [facility]. Please contact our office at [phone] to schedule an appointment at your earliest convenience. Thank you, [facility] Vital Signs Date Time Vital Sign Value Performing Clinician Facility 05-09-2022 16:35-0400 Body height 161.29 cm Adilia Mederos Other [facility] Other 05-09-2022 16:35-0400 Body mass index (BMI) [Ratio] 25.63 kg/m2 Adilia Mederos Other [facility] Other 05-09-2022 16:35-0400 Body temperature 97.8 [degF] Adilia Mederos Other [facility] Other 05-09-2022 16:35-0400 Body weight 66.68 kg Adilia Mederos Other [facility] Other 05-09-2022 16:35-0400 Diastolic blood pressure 79 mm[Hg] Adilia Mederos Other [facility] Other 05-09-2022 16:35-0400 Respiratory rate 18 /min Adilia Mederos Other [facility] Other 05-09-2022 16:35-0400 SaO2% (BldA) [Mass fraction] 98 % Adilia Mederos Other [facility] Other 05-09-2022 16:35-0400 Systolic blood pressure 136 mm[Hg] Adilia Mederos Other [facility] Other 07-21-2021 16:05-0400 Body height 161.29 cm Lilian Ferreira Other [facility] Other 07-21-2021 16:05-0400 Body mass index (BMI) [Ratio] 26.5 kg/m2 Lilian Ferreira Other [facility] Other 07-21-2021 16:05-0400 Body temperature 96.2 [degF] Lilian Ferreira Other [facility] Other 07-21-2021 16:05-0400 Body weight 68.95 kg Lilian Ferreira Other [facility] Other 07-21-2021 16:05-0400 Diastolic blood pressure 95 mm[Hg] Lilian Ferreira Other [facility] Other 07-21-2021 16:05-0400 Respiratory rate 18 /min Lilian Ferreira Other [facility] Other 07-21-2021 16:05-0400 SaO2% (BldA) [Mass fraction] 99 % Lilian Ferreira Other [facility] Other 07-21-2021 16:05-0400 Systolic blood pressure 132 mm[Hg] Lilian Ferreira Other [facility] Other 06-22-2021 14:20-0400 Body height 161.29 cm Adilia Mederos Other [facility] Other 06-22-2021 14:20-0400 Body mass index (BMI) [Ratio] 25.98 kg/m2 Adilia Cardenasault Other [facility] Other 06-22-2021 14:20-0400 Body temperature 96.4 [degF] Adilia Rosa M Other [facility] Other 06-22-2021 14:20-0400 Body weight 67.59 kg Adilia Rosa M Other [facility] Other 06-22-2021 14:20-0400 Diastolic blood pressure Adilia Mederos Other [facility] Other 06-22-2021 14:20-0400 Respiratory rate 18 /min Adilia Mederos Other [facility] Other 06-22-2021 14:20-0400 SaO2% (BldA) [Mass fraction] 98 % Adilia Mederos Other [facility] Other 06-22-2021 14:20-0400 Systolic blood pressure 111 mm[Hg] Adilia Mederos Other [facility] Other Encounters Encounter Date Encounter Type Care Provider Facility Start: 08-25-2023 End: 08-25-2023 ambulatory ALIZA AGUILAR Facility:[facility] Start: 08-25-2023 End: 08-25-2023 Office outpatient visit 15 minutes Aliza Aguilar MD Work Phone: [address] [facility] Comment on above: Hand arthritis (Prim maurisio Dx) Start: 08-21-2023 End: 08-22-2023 ambulatory [facility] Start: 08-19-2023 Letter encounter Yesy Covarrubias OT Work Phone: [facility] Start: 07-31-2023 End: 08-01-2023 ambulatory [facility] Start: 07-24-2023 End: 07-25-2023 ambulatory [facility] Start: 07-20-2023 End: 07-20-2023 ambulatory Aliza Aguilar Facility:[facility] Start: 07-20-2023 End: 07-20-2023 ambulatory DO Tank aLke Work Phone: [facility] Work Phone: Start: 07-20-2023 End: 07-20-2023 Patient encounter procedure DO [place] Work Phone: [facility] [address] Work Phone: Start: 07-10-2023 End: 07-11-2023 ambulatory Meet Harp MD Facility:[facility] Start: 06-16-2023 End: 06-17-2023 ambulatory UNKNOWN PROVIDER [facility] Start: 06-16-2023 End: 06-16-2023 Office outpatient visit 25 minutes Aliza Aguilar MD Work Phone: [address] [facility] Comment on above: Left hand pain (Prim maurisio Dx) Start: 06-16-2023 End: 06-16-2023 [facility] 1 Work Phone: [address] [facility] Comment on above: Left hand pain Start: 02-07-2023 End: 02-08-[address] [place] Facility:[facility] Start: 01-27-2023 End: 01-28-[address] [place] Facility:[facility] Start: 01-23-2023 End: 02-22-2023 ambulatory SHAIKH Eduardo ROSS Facility:[facility] Start: 01-16-2023 Encounter for genera l adult medical examination without abnormal findings DR [place] [facility] Start: 01-12-2023 End: 01-13-[address] [...] 05-09-2022 End: 05-09-2022 ambulatory Adilia Mederos Other [facility] Other Start: 05-09-2022 Office outpatient vi sit [...] vaccination Tetanus (T d or Tdap) [facility] Start: 01-13-2028 Cholesterol [Mass/volume] in Serum or Plasma [facility] Start: 08-25-2023 End: 08-25-2023 Patient encounter procedure 08/25/2023 11:30 AM EST Office Visit [address] [facility] [address] [place], [place] [id number] Aliza Aguilar MD [address] [place] [id number] [address] [facility] Start: 07-20-2023 XR pre/post mri xray XR pre/post mri xray [facility] Start: 07-20-2023 [facility] Start: 07-20-2023 MR Wrist - left WO contrast [facility] Start: 07-20-2023 MRI of left wrist MR wrist LT wo con [facility] Start: 07-20-2023 MR Hand - left WO contrast [facility] Start: 07-20-2023 MRI of left hand MR hand LT wo con [facility] Start: 06-25-2023 Influenza vaccination Influenza Vacc ine (#1) [facility] Start: 06-16-2023 End: 06-16-2024 MR Wrist - left WO contrast MR WRIST LEFT W/O Imaging Routine Left hand pain Expected: 06/16/2023, Expires: 06/16/2024 [facility] [employer] Work Phone: Comment on above: Expected: [...] Hepatitis C screening Hepatitis C An tibody [facility] Start: [facility] HIV screening HIV Test [facility] Start: 1960 COVID-19 Vaccine ( formulation) COVID-19 Vaccine ( formulation) [facility] Start: 1960 Screening for malign ant neoplasm of colon Colonoscopy [facility] Immunizations Immunization Date Immunization Notes Care Provider Fa cility 08-11-2023 influenza, injectabl e, quadrivalent, preservative free Aliza Aguilar MD Work Phone: [facility] 08-11-2023 Respiratory syncytia l virus (RSV), vaccine, bivalent, protein subunit RSV prefusion F, diluent reconstituted, 0.5 mL, preservative free (LWU=881) Aliza Aguilar MD Work Phone: [facility] 06-18-2022 influenza, injectabl e, quadrivalent, preservative free Aliza Aguilar MD Work Phone: [facility] 06-18-2022 influenza virus vacc ine, unspecified formulation Aliza Aguilar MD Work Phone: [facility] 02-05-2022 Pfizer Monovalent (1 2+ yrs) SARS-COV-2 (COVID-19) vaccine, mRNA, spike protein, LNP, pres. free, 30 mcg/0.3mL dose, betito-sucrose (WZO=953) Aliza Aguilar MD Work Phone: [facility] 08-11-2021 influenza, injectabl e, quadrivalent, preservative free Yesy Marci OT Work Phone: [facility] 08-11-2021 influenza virus vacc ine, unspecified formulation Yesy Marci OT Work Phone: [facility] 07-24-2020 zoster vaccine recombinant K athryn Marci OT Work Phone: [facility] 07-11-2020 Influenza, injectabl e, Madin Zakia Canine Kidney, preservative free, quadrivalent Yesy Marci OT Work Phone: [facility] 04-18-2020 zoster vaccine recombinant K athryn Marci OT Work Phone: [facility] 08-28-2019 Influenza, injectabl e, Madin Zakia Canine Kidney, preservative free, quadrivalent Yesy Marci OT Work Phone: [facility] 07-01-2019 influenza, high dose seasonal, preservative-free Yesy Marci OT Work Phone: [facility] 06-25-2019 pneumococcal polysac charide vaccine, 23 valent Yesy Marci OT Work Phone: [facility] 07-06-2018 influenza, injectabl e, quadrivalent, contains preservative Yesy Marci OT Work Phone: [facility] 06-04-2018 tetanus toxoid, redu karen diphtheria toxoid, and acellular pertussis vaccine, adsorbed Yesy Marci OT Work Phone: [facility] 08-19-2017 influenza, injectabl e, quadrivalent, preservative free Yesy Marci OT Work Phone: [facility] 08-09-2017 influenza, injectabl e, quadrivalent, contains preservative Yesy Marci OT Work Phone: [facility] 08-01-2016 influenza, injectabl e, quadrivalent, preservative free Yesy Marci OT Work Phone: [facility] 07-11-2015 influenza, injectabl e, madin zakia canine kidney, preservative free Yesy Marci OT Work Phone: [facility] 07-11-2015 pneumococcal conjuga te vaccine, 13 valent Yesy Marci OT Work Phone: [facility] 08-13-2009 novel influenza-H1N1 -09, preservative-free, injectable Yesy Marci OT Work Phone: [facility] 07-17-2009 influenza virus vacc ine, unspecified formulation Yesy Marci OT Work Phone: [facility] 08-15-2008 influenza virus vacc ine, unspecified formulation Yesy Marci OT Work Phone: [facility] Payers Date Payer Category Payer Self-pay [id number] 2018 Unknown [id number] 2013 Medicare [id number] 1.13.56.2.7.3.67 [id number] 1960 [facility] [id number] 2.16.840.1.632002.19 1960 Medicare [id number] 2.16.840.1.322161.19 1959 Unknown [id number] 2.16.840.1.677388.3.579.2.593 1959 Unknown [id number] 2.16.840.1.605605.3.579.2.593 1959 Unknown [id number] 2.16.840.1.379549.3.579.2.593 1959 Unknown [id number] 2.16.840.1.529302.3.579.2.593 1959 Unknown [id number] 2.16.840.1.740690.3.579.2.593 1959 Unknown [id number] 2.16.840.1.473356.3.579.2.593 1959 Unknown [id number] 2.16.840.1.180713.3.579.2.59 1959 Unknown [id number] 2.16.840.1.394450.3.579.2.59 1959 Unknown [id number] 2.16.840.1.408514.3.579.2.59 1959 Unknown [id number] 2.16.840.1.772107.3.579.2.59 1959 Unknown [id number] 2.16.840.1.162727.3.579.2.593 1959 Unknown [id number] 2.16.840.1.414684.3.579.2.593 1959 Unknown [id number] 2.16.840.1.485740.3.579.2.593 1959 Unknown [id number] 2.16.840.1.947004.3.579.2.593 1959 Unknown [id number] 2.16.840.1.018042.3.579.2.593 1959 Unknown [id number] 2.16.840.1.331880.3.579.2.593 1959 Unknown [id number] 2.16.840.1.682282.3.579.2.593 1959 Unknown [id number] 2.16.840.1.822439.3.579.2.593 1959 Unknown [id number] 2.16.840.1.356416.3.579.2.593 1959 Unknown [id number] 2.16.840.1.058435.3.579.2.593 1959 Unknown [id number] 2.16.840.1.094428.3.579.2.732 1959 Unknown [id number] 2.16.840.1.632066.3.579.2.732 1959 Unknown [id number] 2.16.840.1.618414.3.579.2.732 1959 Unknown [id number] 2.16.840.1.978622.3.579.2.196 1959 Unknown [id number] 2.16.840.1.792490.3.579.2.196 1959 Unknown [id number] 2.16.840.1.009158.3.579.2.196 1959 Unknown [id number] 2.16.840.1.093893.3.579.2.196 Medicare Medicare Nonpatient [id number] Unknown [id number] 2.16.840.1.102225.3.579.2.531 Social History Date Type Detail Facility Unknown if ever smoked [facility] Other Sex Assigned At [facility] Other Start: 05-31-2019 Tobacco smoking stat [facility] Ex-smoker [facility] History of tobacco use Current smoker [facility] Start: 05-31-2019 Tobacco use and exposure Smokeless tobacco non-user [facility] Start: 04-07-2020 Alcohol intake Lifetime non-d han (finding) [facility] Start: 07-09-2019 History SDOH Alcohol Frequency 1 [facility] Start: 1960 Sex Assigned At Not on file [facility] Start: 1960 Sex Assigned At Female F [facility] Medical Equipment Procedure Code Equipment Code Equipment Origin al Text Equipment Identifier Dates Gonzales 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 Patient Office Note or Post OP Note Name:Madan Perry Date: 08/25/2023 CC: left wrist pain at [facility] [place] area No chief complaint on file. [...] Aliza Aguilar MD Injection Procedure.ecu region 08/25/2023 [id number] Madan Menchacadaisy The patient requested an injection [...] a dressing applied. documented in this encounter [facility] 06-16-2023 Note Addended by: ALIZA AGUILAR on: 06/16/2023 11:34 AM Modules accepted: Orders [facility] 06-16-2023 Miscellaneous Notes Addended by: ALIZA AGUILAR on: 06/16/2023 11:34 AM Modules accepted: Orders documented in this encounter [facility] 06-16-2023 History of Presen t illness Narrative [...] continues on coumadin. documented in this encounter [facility] 05-09-2022 Evaluation note Encounter Date Diagnosis Assessment [...] Xray that was ordered outpatient by PCP [facility] Other 08-10-2022 NotePROCEDURE: XR FOOT RT MIN 3 VIEWS COMPARISON: None. HISTORY: Pain in right foot FINDINGS: BONES:No fracture, acute abnormality, or significant arthropathy. Mild enthesopathic spurring of the calcaneus at the Achilles insertion SOFT TISSUES:Negative. No visible soft tissue swelling. EFFUSION:None visible. OTHER: Negative. IMPRESSION: No acute abnormality Electronically authenticated by: MARTINEZ HARVEY Date: 2022-05-04 16:22[facility]10-27-2021 Evaluation note* Encounter Date Diagnosis Assessment Notes Treatment Notes Treatment Clinical Notes Jun, Swelling of left elbow (ICD-10 - M25.422) Jun, Other Patient refe rred to the ER due to swelling, ecchymosis, pain of her left elbow with no known injury. It is felt the patient needs blood work to evaluate [facility] Other 09-28-2021 Evaluation note* Encounter Date Diagnosis Assessment Notes Treatment Notes Treatment Clinical Notes May, Bee sting, undetermined intent, initial encounter (ICD-10 - T63.444A) May continue Xyzal and Benadryl as directed. [facility] Other Evaluation note* Diagnosis Left hand pain- Primary Pain in limb Left hand pain Pain in limb [facility] Left [facility] pain Pain in limb [facility]: Evaluation note* Diagnosis [...] second t roseann Hospitalization History see above [facility] Other Summary Purpose Family History No Family [...] Diagnoses Left hand pain Aliza Aguilar MD [address] [place] [address] Referral ID Status Reason Start Date Expiration Date Visits Requested Visits Authorized [id number] Authorized Patient Preference 06/16/2023 06/16/2024 3 3 Comments Near home, [place], [place] Specialty Diagnoses / Procedures Referred By Randi cardona Referred To Contact Radiology Diagnoses Left hand pain Procedures MR WRIST LEFT W/O Aliza Aguilar MD [address] [place] [address] [address] Referral ID Status Reason Start Date Expiration Date V isits Requested Visits Authorized [id number] Authorized 06/16/2023 06/15/2024 1 1 Specialty Diagnoses / Procedures Referred By Contac t Referred To Contact Radiology Diagnoses Left hand pain Procedures XR HAND LEFT 3 VIEWS [facility] [address] [place] [id number] [facility] RADIOLOG[facility] [address] [facility] [address] [place] [id number] Referral ID Status Reason Start Date Expiration Date Visits Re quested Visits Authorized [id number] Closed 06/16/2023 06/15/2024 1 1 Chief Complaint and Reason for Visit Chief Complaint median nerve karel krista Additional Source Comments INFORMATION SOURCE (unrecogn ized section and content) DATE CREATED AUTHOR 05/27/2021 Antonio I AM AT [facility] DATE CREATED AUTHOR AUTHOR'S ORGANIZ ATION 03/03/2023 [facility] DATE CREATED AUTHOR AUTHOR'S ORGANIZ ATION 07/30/2023 [facility] DATE CREATED AUTHOR AUTHOR'S ORGANIZ ATION 08/28/2023 [facility] DATE CREATED AUTHOR AUTHOR'S ORGANIZ ATION 09/03/2023 [facility] DATE CREATED AUTHOR AUTHOR'S ORGANIZ ATION 09/10/2023 [facility] REASON FOR VISIT (unrecogniz ed section and content) Reason Comments Hand/finger symptoms Specialty Diagnoses / Procedures Referred By Contac t Referred To Contact Radiology Diagnoses Left hand pain Procedures XR HAND LEFT 3 VIEWS [facility] [address] [place] [id number] [facility] RADIOLOGY [address] [place] [address] Referral ID Status Reason Start Date Expiration Date Visits Re quested Visits Authorized [id number] Closed 06/16/2023 06/15/2024 1 1 Reason Comments Hand/finger symptoms Care Teams (unrecognized sec tion and content) 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 Start Date End Date Yesy Covarrubias, OT [address] [place], [place] [id number] Occupational Therapist Occupational Therapy 06/30/20 Aliza Aguilar MD [address] [place], [place] Physician Orthopaedic Hand Service 06/30/20 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 Start Date End Date Yesy Covarrubias, OT [address] [place] [address] Occupational Therapist Occupational Therapy 06/30/20 Aliza Aguilar MD [address] [place] [address] Physician Orthopaedic Hand Service 06/30/20 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 Start Date End Date Yesy Covarrubias, OT [address] [place] [address] Occupational Therapist Occupational Therapy 06/30/20 Aliza Aguilar MD [address] [place] [address] Physician Orthopaedic Hand Service 06/30/20 Team Status: Active Member Role Status Dates [place] , DO Primary Care Provider Active Team Status: Inactive Member Role Status Dates [place] , DO Primary Care Provider Active Aliza Aguilar Attending Provider Active 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 Start Date End Date Yesy Covarrubias, OT [address] [facility] [address] Occupational Therapist Occupational Therapy 06/30/20 Aliza Aguilar MD [address] [place] [address] Physician Orthopaedic Hand Service 06/30/20 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 [email or web address]. provides no warranty or guarantee of the accuracy or completeness of information in this document.
--- NOTE | 2023-10-03 11:15 | ED_ITS ---
HPI - General Adult General Chief complaint: Epistaxis Stated complaint: NOSE ISSUE Time Seen by Provider: 10/03/23 10:46 Source: patient Mode of arrival: walk-in History of Present Illness HPI narrative: 63-year-old female presents for nasal packing removal. She was seen here a few nights ago and had packing placed in her right nostril. She's had no problems since. She held her Coumadin the next day and is going to follow up with [facility]. Related Data Home Medications Medication Instructions Recorded Confirmed acyclovir 400 mg tablet 400 mg PO DAILY 06/16/23 09/30/23 amitriptyline 100 mg tablet 100 mg PO BEDTIME 06/16/23 09/30/23 aripiprazole 10 mg tablet 10 mg PO BEDTIME 06/16/23 09/30/23 atorvastatin 10 mg tablet 10 mg PO QDAY 06/16/23 09/30/23 biotin 10,000 mcg-keratin 100 mg 1 tab PO QDAY 06/16/23 09/30/23 tablet (Biotin Plus Keratin) nqhlrcbobn-cterwtqsnmgkd-jnbirzav 1 cap PO Q6H PRN pain 06/16/23 09/30/23 50 mg-300 mg-40 mg capsule cholecalciferol (vitamin D3) 50 50 mcg PO DAILY 06/16/23 09/30/23 mcg (2,000 unit) capsule (Vitamin D3) coenzyme Q10 100 mg capsule (Co 100 mg PO BID 06/16/23 09/30/23 Q-10) cyanocobalamin (vitamin B-12) 1,000 mcg IM .monthly 06/16/23 09/30/23 1,000 mcg/mL injection solution cyclobenzaprine 10 mg tablet 10 mg PO Q12H PRN muscle spasm 06/16/23 08/21/23 fluticasone propionate 220 2 puff inhalation Q12H 06/16/23 09/30/23 mcg/actuation HFA aerosol inhaler (Flovent HFA) folic acid 400 mcg tablet 400 mcg PO DAILY 06/16/23 09/30/23 fremanezumab-vfrm 225 mg/1.5 mL 225 mg subcut .monthly 06/16/23 09/30/23 subcutaneous auto-injector (Ajovy) hydrochlorothiazide 12.5 mg tablet 12.5 mg PO QDAY 06/16/23 09/30/23 hydrocodone 5 mg-acetaminophen 325 1 tab PO Q12H PRN pain 06/16/23 09/30/23 mg tablet hydroxyzine HCl 25 mg tablet 25 mg PO BEDTIME 06/16/23 09/30/23 levothyroxine 125 mcg tablet 125 mcg PO .every morning 06/16/23 09/30/23 linaclotide 72 mcg capsule 145 mcg PO QDAY 06/16/23 09/30/23 (Linzess) lisinopril 5 mg tablet 5 mg PO QDAY 06/16/23 09/30/23 magnesium 200 mg tablet 400 mg PO DAILY 06/16/23 09/30/23 melatonin 10 mg capsule 10 mg PO DAILY 06/16/23 09/30/23 montelukast 10 mg tablet 10 mg PO QDAY 06/16/23 09/30/23 omeprazole 40 mg capsule,delayed 40 mg PO BID 06/16/23 09/30/23 release phentermine 37.5 mg tablet 37.5 mg PO QDAY 06/16/23 09/30/23 potassium chloride 10 mEq 20 meq PO BID 06/16/23 09/30/23 tablet,extended release(part/cryst) prasterone (dhea) 25 mg capsule 25 mg PO BID 06/16/23 09/30/23 (DHEA) pseudoephedrine HCl 30 mg tablet 30 mg PO QDAY 06/16/23 08/21/23 vilazodone 40 mg tablet 40 mg PO QDAY 06/16/23 09/30/23 vit C 250 mg-vit E 90 mg-zinc 40 1 tab PO BID 06/16/23 09/30/23 mg-copper 1 jo-gkufws-jwjtvb capsule (PreserVision AREDS-2) warfarin 1 mg tablet 1 mg PO .qtuesday 06/16/23 09/30/23 warfarin 2 mg tablet 2 mg PO QDAY 06/16/23 08/21/23 zinc 50 mg capsule 50 mg PO DAILY 06/16/23 09/30/23 alprazolam 0.25 mg tablet 0.25 mg PO DAILY PRN anxiety 07/17/23 09/30/23 aspirin 81 mg tablet,delayed 81 mg PO DAILY 07/17/23 09/30/23 release (Adult Aspirin Regimen) hydrocortisone 2.5 % topical cream 1 applic topical BID PRN allergic 07/17/23 09/30/23 reaction meclizine 12.5 mg tablet 12.5 mg PO BID PRN dizziness 07/17/23 09/30/23 ondansetron HCl 4 mg tablet 4 mg PO Q12H PRN nausea and 07/17/23 09/30/23 vomiting baclofen 10 mg tablet 10 mg PO Q12H PRN muscle spasm 09/30/23 09/30/23 pseudoephedrine HCl 30 mg tablet 30 mg PO DAILY 09/30/23 09/30/23 (Sudafed) Previous Rx's Medication Instructions Recorded sulfamethoxazole 800 1 tab PO BID 3 days #6 tabs 10/01/23 mg-trimethoprim 160 mg tablet (Bactrim DS) Allergies Allergy/AdvReac Type Severity Reaction Status Date / Time erythromycin base AdvReac Severe Verified 09/30/23 23:46 Penicillins AdvReac Severe Anaphylaxis Verified 09/30/23 23:15 cephalexin [From Keflex] AdvReac Intermediate Hives Verified 09/30/23 23:15 doxycycline AdvReac Intermediate Hives Verified 09/30/23 23:15 iodine AdvReac Intermediate Hives Verified 09/30/23 23:15 morphine AdvReac Intermediate Vomiting Verified 09/30/23 23:15 oxycodone [From Percocet] AdvReac Intermediate Vomiting Verified 09/30/23 23:15 ciprofloxacin [From Cipro] AdvReac Mild Hives Verified 09/30/23 23:15 novicane AdvReac Intermediate Migraine Uncoded 09/30/23 23:15 Review of Systems ROS Narrative A ten point review of systems is negative except as noted above. [facility] Medical History Presence of vena cava filter ?Z95.828 - Presence of other vascular implants and grafts (ICD-10) Hypertension ?I10 - Essential (primary) hypertension (ICD-10) Osteoarthritis ?M19.90 - Unspecified osteoarthritis, unspecified site (ICD-10) Hypothyroid ?E03.9 - Hypothyroidism, unspecified (ICD-10) Stage 3 chronic kidney disease ?N18.30 - Chronic kidney disease, stage 3 unspecified (ICD-10) Colitis ?K52.9 - Noninfective gastroenteritis and colitis, unspecified (ICD-10) DVT (deep venous thrombosis) ?I82.409 - Acute embolism and thrombosis of unspecified deep veins of unspecified lower extremity (ICD-10) Surgical History History of carpal tunnel release ?Z98.890 - Other specified postprocedural states (ICD-10) History of bladder suspension procedure ?Z98.890 - Other specified postprocedural states (ICD-10) ?Z87.448 - Personal history of other diseases of urinary system (ICD-10) History of hernia repair ?Z98.890 - Other specified postprocedural states (ICD-10) ?Z87.19 - Personal history of other diseases of the digestive system (ICD-10) Hx of cholecystectomy ?Z90.49 - Acquired absence of other specified parts of digestive tract (ICD- 10) H/O colonoscopy ?Z98.890 - Other specified postprocedural states (ICD-10) History of esophagogastroduodenoscopy (EGD) ?Z98.890 - Other specified postprocedural states (ICD-10) History of decompression of ulnar nerve ?Z98.890 - Other specified postprocedural states (ICD-10) History of appendectomy ?Z90.49 - Acquired absence of other specified parts of digestive tract (ICD- 10) History of hysterectomy ?Z90.710 - Acquired absence of both cervix and uterus (ICD-10) Delivery by section History of laparoscopy ?Z98.890 - Other specified postprocedural states (ICD-10) Social History Smoking status: Former smoker Exam Narrative Exam Narrative: Nurses note and vital signs reviewed and patient is not hypoxic. General: The patient appears well and in no apparent distress. Patient is resting comfortably on cart. Skin: Warm, dry, no pallor noted. There is no rash noted. Head: Normocephalic, atraumatic Eye: Normal conjunctiva, no drainage Ears, Nose, Mouth, and Throat: oral mucosa is moist. packing is in place in the right nares. No epistaxis Cardiovascular: Regular Rate and Rhythm Respiratory: Patient is in no distress, no accessory muscle use Back: non-tender GI: soft and nontender Musculoskeletal: The patient has no evidence of calf tenderness, no pitting edema, symmetrical pulses noted bilaterally Neurological: A&O, normal speech Psychiatric: Cooperative Constitutional Vital Signs, click to edit/add: Last Vital Signs Temp 97.5 F L 10/03/23 10:46 Pulse 120 H 10/03/23 10:46 Resp 22 10/03/23 10:46 BP 100/70 10/03/23 10:46 Pulse Ox 99 10/03/23 10:46 O2 Del Method Room Air 10/03/23 10:46 Course Vital Signs Vital signs: Vital Signs Temperature 97.5 F L 10/03/23 10:46 Pulse Rate 120 H 10/03/23 10:46 Respiratory Rate 22 10/03/23 10:46 Blood Pressure 100/70 10/03/23 10:46 Pulse Oximetry 99 10/03/23 10:46 Oxygen Delivery Method Room Air 10/03/23 10:46 Temperature 97.5 F L 10/03/23 10:46 Pulse Rate 120 H 10/03/23 10:46 Respiratory Rate 22 10/03/23 10:46 Blood Pressure 100/70 10/03/23 10:46 Pulse Oximetry 99 10/03/23 10:46 Oxygen Delivery Method Room Air 10/03/23 10:46 Medical Decision Making [facility] Narrative Medical decision making narrative: the packing has been removed and she is discharged. Differential Diagnosis Differential Diagnosis: epistaxis, packing removal Discharge Plan Discharge Chief Complaint: Epistaxis Clinical Impression: Encounter for removal of nasal packing Patient Disposition: Home, Self-Care Time of Disposition Decision: 11:14 Condition: Good Mode of Transportation: Private Vehicle Prescriptions / Home Meds: No Action warfarin 2 mg tablet 2 mg PO QDAY Rx Instructions: 2mg everyday, 3mg every Monday warfarin 1 mg tablet 1 mg PO .qt Rx Instructions: Pt takes 1mg with 2mg for total of 3mg every Monday acyclovir 400 mg tablet 400 mg PO DAILY amitriptyline 100 mg tablet 100 mg PO BEDTIME aripiprazole 10 mg tablet 10 mg PO BEDTIME atorvastatin 10 mg tablet 10 mg PO QDAY lmkrkgtzxx-vkoytrflatmmz-lvza 50-300-40 mg capsule 1 cap PO Q6H PRN (Reason: pain) cyanocobalamin (vitamin B-12) 1,000 mcg/mL solution 1,000 mcg IM .monthly cyclobenzaprine 10 mg tablet 10 mg PO Q12H PRN (Reason: muscle spasm) fluticasone propionate [Flovent HFA] 220 mcg/actuation HFA aerosol inhaler 2 puff INHALATION Q12H Ajovy Autoinjector 225 mg/1.5 mL auto-injector 225 mg SUBCUT .monthly hydrochlorothiazide 12.5 mg tablet 12.5 mg PO QDAY hydrocodone-acetaminophen 5-325 mg tablet 1 tab PO Q12H PRN (Reason: pain) hydroxyzine HCl 25 mg tablet 25 mg PO BEDTIME levothyroxine 125 mcg tablet 125 mcg PO .every morning Linzess 72 mcg capsule 145 mcg PO QDAY Patient Comments: on empty stomach before a meal lisinopril 5 mg tablet 5 mg PO QDAY montelukast 10 mg tablet 10 mg PO QDAY omeprazole 40 mg capsule,delayed release(DR/EC) 40 mg PO BID phentermine 37.5 mg tablet 37.5 mg PO QDAY potassium chloride 10 mEq tablet,ER particles/crystals 20 meq PO BID vilazodone 40 mg tablet 40 mg PO QDAY Biotin Plus Keratin 10,000-100 mcg-mg tablet 1 tab PO QDAY Patient Comments: with supper folic acid 400 mcg tablet 400 mcg PO DAILY cholecalciferol (vitamin D3) [Vitamin D3] 50 mcg (2,000 unit) capsule 50 mcg PO DAILY melatonin 10 mg capsule 10 mg PO DAILY magnesium 200 mg tablet 400 mg PO DAILY PreserVision AREDS-2 250-90-40-1 mg capsule 1 tab PO BID coenzyme Q10 [Co Q-10] 100 mg capsule 100 mg PO BID prasterone (dhea) [DHEA] 25 mg capsule 25 mg PO BID zinc 50 mg capsule 50 mg PO DAILY pseudoephedrine HCl 30 mg tablet 30 mg PO QDAY baclofen 10 mg tablet 10 mg PO Q12H PRN (Reason: muscle spasm) pseudoephedrine HCl [Sudafed] 30 mg tablet 30 mg PO DAILY sulfamethoxazole-trimethoprim [Bactrim DS] 800-160 mg tablet 1 tab PO BID 3 Days Qty: 6 0RF alprazolam 0.25 mg tablet 0.25 mg PO DAILY PRN (Reason: anxiety) aspirin [Adult Aspirin Regimen] 81 mg tablet,delayed release (DR/EC) 81 mg PO DAILY ondansetron HCl 4 mg tablet 4 mg PO Q12H PRN (Reason: nausea and vomiting) meclizine 12.5 mg tablet 12.5 mg PO BID PRN (Reason: dizziness) hydrocortisone 2.5 % cream 1 applic TOPICAL BID PRN (Reason: allergic reaction) Instructions: Nosebleed (ED) Stand Alone Forms: Portal Instructions Referrals: [place] DO [Primary Care Provider] - 1 week Procedures ED Procedure Instructions Procedures Procedures: I've removed her nasal packing and she had no subsequent bleeding.
[2023-10-03 11:19] VITALS: BP 147/77; PULSE 88; RESP 18; O2SAT 99
== END 2023-10-03 11:21 | disposition home or self-care (01) ==
PROVIDERS: Emergency Provider Emergency Medicine; PCP Family Medicine
DX: Z48.00 Encounter for change or removal of nonsurgical wound dressing (principal); Z79.01 Long term (current) use of anticoagulants; Z79.899 Other long term (current) drug therapy; Z79.890 Hormone replacement therapy; Z95.828 Presence of other vascular implants and grafts; I10 Essential (primary) hypertension; M19.90 Unspecified osteoarthritis, unspecified site; E03.9 Hypothyroidism, unspecified; I12.9 Hypertensive chronic kidney disease with stage 1 through stage 4 chronic kidney disease, or unspecified chronic kidney disease; N18.30 Chronic kidney disease, stage 3 unspecified; Z86.718 Personal history of other venous thrombosis and embolism; Z98.890 Other specified postprocedural states; Z90.49 Acquired absence of other specified parts of digestive tract; Z90.710 Acquired absence of both cervix and uterus; Z87.891 Personal history of nicotine dependence
CPT/HCPCS: 99281

== ENCOUNTER 2023-10-09 08:27 | Day surgery (SDC) | payer BC, MEDICARE, SELFPAY ==
--- OUTSIDE RECORDS SUMMARY | 2023-10-09 08:32 | XMS_ITS | CCD ---
Author Name Unknown Address [address] [place] [address] Organization [facility] Care Team Providers Care Supervisor Jewelry Department Name Role Phone Adilia Mederos Unavailable HannaLilian bernstein Unavailable Yesy Covarrubias OT Unavailable Aliza Aguilar MD Unavailable [phone], [address] TANK Aguillon Primary Care [...] MASON, Yesy Unavailable Aliza Aguilar MD. Unavailable [phone] A Primary Care Provider Aliza Aguilar Attending Provider [phone] Aliza Aguilar Admitting Unavailable Aliza Aguilar Attending [...] Acetaminophen / oxyCODONE Drug Allergy stomach upset [facility] Other (3 sources) Adhesive Tape Propensity to adverse reactions rash [facility] Other (2 sources) Cephalexin Drug Allergy anaphylaxis [facility] Other (9 sources) Erythromycin; Translations: [ERYTHROMYCIN] Drug Allergy 02-01-20 08 Other [facility] (4 sources) Iodine; Translations: [iodine] Drug Allergy 01-31-20 13 rash [facility] (3 sources) Latex Propensity to adverse reactions rash [facility] Other (3 sources) Penicillin G Benzathine Drug allergy anaphylaxis [facility] Other (3 sources) Procaine Drug Allergy headaches [facility] Other (2 sources) Cephalexin; Translations: [Keflex] Drug Allergy 01-31-20 13 anaphylaxis [facility] (1 source) Novocain Drug allergy Unknown [facility] Other (6 sources) Acetaminophen; Translations: [ACETAMINOPHEN] Drug [...] reactions to drug 09-03-20 13 [facility] (6 sources) Quinolones (Antibiotic); Translations: [QUINOLONES] Propensity to adverse reactions to drug 03-31-20 08 Respiratory Problems [facility] Work Phone: (6 sources) Sulfonamides (Antibiotic); Translations: [SULFA ANTIBIOTICS] Propensity to adverse reactions to drug 02-01-20 08 Rash [facility] (6 sources) Bandage Tape; Translations: [BANDAGE [...] Phone: (1 source) Ciprofloxacin Drug Allergy [facility] Repository (1 source) Iodine (And Iodine Containting Drugs) Drug allergy (disorder) 01-31-20 13 [facility] Repository (1 source) Latex Drug allergy (disorder) 01-31-20 13 [facility] Rep[facility] (1 source) Morphine Drug Allergy 06-09-20 16 [facility] Rep[facility] (1 source) Penicillins Drug allergy (disorder) 01-31-20 13 [facility] Rep[facility] (1 source) Sulfonamides (Antibiotic) Drug allergy (disorder) 01-31-20 13 [facility] Repository (1 source) Darvocet-N 100 Drug allergy (disorder) 01-31-20 13 [facility] Rep[facility] (1 source) E.E.S. Drug allergy (disorder) 01-31-20 13 [facility] Repository Medications Current Medications Medication Drug Class(es) Dates Sig (Normalized) Sig (Original) acetaminophen 300 mg / butalbital 50 mg / caffeine 40 mg oral capsule (11 sources) Barbiturate, Central Nervous System Stimulant, Methylxanthine Xzukkmzxqo-ONRA-Jm ffeine 50-300-40 MG CAPS Take by mouth daily as needed. 0 Active take 1 capsule by mo uth every four hours Wrthzoqirs-FWVG-Yykhggsd 50-325-40 MG 1 capsule as needed Orally every 4 hrs Not-Taking Fioricet Active acetaminophen 325 mg / HYDROcodone bitartrate 5 mg oral tablet (10 sources) Opioid Agonist take 1 tablet by mouth once hydrocodone-acetaminophen (NORCO) 5-325 mg per tablet Take 1 Tablet by mouth. 0 Active HYDROcodone-Acet aminophen 7.5-300 MG Orally Not-Taking [place] Active acyclovir 400 mg oral tablet (8 [...] by mouth daily. Followed in coumadin clinic [place], [place] 0 Active take 1 tablet by [...] 4 mg/0.1 mL nasal liquid Instill 1 Isom into one nostril (alternate sides) as needed. [...] Onset: 01-21-2023 Episodic Other aftercare (1 source) [facility] (current) use of anticoagulants; Translations: [[facility] CURRNT USE ANTICOAGULANTS] Onset: 02-22-2023 Episodic Other [...] [Mass/Vol] 9.2 mg/dL Normal (8.6 - 10.6) [facility] Comment on above: Order Comment: FACIL ITY: [facility] [id number] Performed By: #### C HEM-B #### [facility] [address] [facility], [address] Chloride [Moles/Vol] 99 mmol/L Normal (98 - 107) [facility] Comment on above: Order Comment: FACIL ITY: [facility] [id number] Performed By: #### C HEM-B #### [facility] [address] [facility], [address] CO2 [Moles/Vol] 27 mmol/L Normal (22 - 30) [facility] Comment on above: Order Comment: FACIL ITY: [facility] [id number] Performed By: #### C HEM-B #### [facility] [address] [facility], [address] Creatinine [Mass/Vol] 0.74 mg/dL Normal (0.52 - 1.04) [facility] Comment on above: Order Comment: FACIL ITY: [facility] [id number] Performed By: #### C HEM-B #### [facility] [address] [place], [address] GFR- AMER 95.6 ML/M1.7 Normal (60.0 - 140.1) [facility] Comment on above: Order Comment: FACIL ITY: [facility] [id number] Performed By: #### C HEM-B #### [facility] [address] [place], [address] GFR-NON AFRIC-AMER 79.0 ML/M1.7 Normal (60.0 - 115.8) [facility] Comment on above: Order Comment: FACIL ITY: [facility] [id number] Performed By: #### C HEM-B #### [facility] [address] [place], [address] Glucose [Mass/Vol] 100 mg/dL Normal (74 - 106) [facility] Comment on above: Order Comment: FACIL ITY: [facility] [id number] Performed By: #### C HEM-B #### [facility] [address] [place], [address] Potassium [Moles/Vol] 4.6 mmol/L Normal (3.5 - 5.1) [facility] Comment on above: Order Comment: FACIL ITY: [facility] [id number] Performed By: #### C HEM-B #### [facility] [address] [place], [address] Sodium [Moles/Vol] 136 mmol/L Low (137 - 145) [facility] Comment on above: Order Comment: FACIL ITY: [facility] [id number] Performed By: #### C HEM-B #### [facility] [address] [place], [address] Urea nitrogen [Mass/Vol] 11 mg/dL Normal (7 - 17) [facility] Comment on above: Order Comment: FACIL ITY: [facility] [id number] Performed By: #### C HEM-B #### [facility] [address] [place], [address] Progress Noteson 08-25-2023 [employer] Authentication Interface Message Text CC: Left hand and wrist pain Follow up after MRI done at [facility]. Normal [facility] [employer] Authentication Interface Message Text Patient Office Note or Post OP Note Name:Madan Perry Date: 08/25/2023 CC: left wrist pain at [facility] area No chief complaint on file. EXAM: [...] of this patient. Aliza Aguilar MD Injection Procedure.[facility] 08/25/2023 [id number] Madan Perry The patient requested an injection [...] alcohol and a dressing applied. Normal [facility] MR wrist LT wo conon 023 MR wrist LT wo con [facility] Main [place] [address] [place] [address] MRI Report Signed Patient: Madan Perry MR#: [id number] : 1960 Acct:[id number] Age/Sex: 63 / F ADM Date: 07/20/23 [facility] Room: Type: [facility] Attending Dr: Aliza Aguilar Copies to: Aliza Aguilar Ordering Provider: Aliza Aguilar Date of Service: 07/20/23 MR/MR hand LT wo con: MEDIAN NERVE COMPRESSION ([id number]) MR/MR wrist LT wo con: MEDIAN NERVE COMPRESSION ([id number]) XR/XR pre/post mri xray: MEDIAN NERVE COMPRESSION [...] Jose Dial M.D.07/21/2023 7:38 PM Dictation Location: [place] [address] Transcribed By: [facility] 07/21/231937 Dictated By: Jose Dial DO 07/20/23 1525 Signed By: 07/21/231937 [facility] Telephone Encounteron 2022 [employer] Authentication Interface Message Text Spoke with patient and scheduled. Normal [facility] Telephone Encounteron 2022 [employer] Authentication Interface Message Text Pt called as [...] she would need something sooner. Contact pt @[phone] Normal [facility] Addendum Noteon 06-16-2023 [employer] Authentication Interface Message Text Addended by: ALIZA AGUILAR on: 06/16/2023 11:34 AM Modules accepted: Orders Normal [facility] Progress Noteson 06-16-2023 [employer] Authentication Interface Message Text Patient Office Note [...] this patient. Aliza Aguilar MD Normal [facility] [employer] Authentication Interface Message Text CC: Left hand pain Pain Left wrist and hand; tingling to middle and ring fingers. Pt states ganglion which was removed has returned and is painful. CMC joint painful. 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 Normal [facility] XR HAND LEFT 3 VIEWSon 06-16 [...] findings. Left hand MACRO: None Normal [facility] XR Hand - left 3 Viewson [...] findings. Left hand MACRO: None [facility] Radiology Study observation (narrative) [facility] XR Hand - left 3 ViewsOrdere d By: Alberto Llanes on 06-16-2023 [facility] Work Phone: US DARNELL DOP LEG BILon [...] [place] Date: 2023-01-27 17:22 Normal [facility] CBC AUTO DIFFon 01-12-2023 BASO # 0.1 103/ul Normal 0.0-0.1 [facility] Comment on above: Performed By: #### C BC #### [facility] [address] [place] [address] Dr. Rocio Hernandez Basophils/100 WBC (Bld) 1.0 % Normal 0.2-2.0 [facility] Comment on above: Performed By: #### C BC #### [facility] [address] [place] [address] Dr. Rocio Hernandez EO # 0.2 103/ul Normal 0.0-0.7 [facility] Comment on above: Performed By: #### C BC #### [facility] [address] [place] [address] Dr. Rocio Hernandez Eosinophils/100 WBC (Bld) 2.9 % Normal 0.9-7.0 [facility] Comment on above: Performed By: #### C BC #### [facility] [address] [place] [address] Dr. Rocio Hernandez Erythrocyte distribution width (RBC) [Ratio] 14.1 % Normal 11.0-15.0 [facility] Comment on above: Performed By: #### C BC #### [facility] [address] [place] [address] Dr. Rocio Hernandez Hematocrit (Bld) [Volume fraction] 41.2 % Normal 36.0-48.0 [facility] Comment on above: Performed By: #### C BC #### [facility] [address] [place] [address] Dr. Rocio Hernandez Hemoglobin (Bld) [Mass/Vol] 13.6 g/dL Normal 12.0-16.0 [facility] Comment on above: Performed By: #### C BC #### [facility] [address] [place] [address] Dr. Rocio Hernandez IG # 0.01 10e3/ul Normal 0.00-0.03 [facility] Comment on above: Performed By: #### C BC #### [facility] [address] [place] [address] Dr. Rocio Hernandez IG % 0.2 % Normal 0.0-0.5 [facility] Comment on above: Performed By: #### C BC #### [facility] [address] [place] [address] Dr. Rocio Hernandez LYMPH # 1.3 103/ul Normal 1.2-3.8 [facility] Comment on above: Performed By: #### C BC #### [facility] [address] [place] [address] Dr. Rocio Hernandez Lymphocytes/100 WBC (Bld) 21.9 % Normal 20.5-60.0 [facility] Comment on above: Performed By: #### C BC #### [facility] [address] [place] [address] Dr. Rocio Hernandez MANUAL DIFF REQ NO Normal [facility] Comment on above: Performed By: #### C BC #### [facility] [address] [place] [address] Dr. Rocio Hernandez MCH (RBC) [Entitic mass] 28.4 pg Normal 26.7-34.0 [facility] Comment on above: Performed By: #### C BC #### [facility] [address] [place] [address] Dr. Rocio Hernandez MCHC (RBC) [Mass/Vol] 33.0 g/dL Normal 29.9-35.2 [facility] Comment on above: Performed By: #### C BC #### [facility] [address] [place] [address] Dr. Rocio Hernandez MCV (RBC) [Entitic vol] 86.0 fL Normal 81.0-99.0 [facility] Comment on above: Performed By: #### C BC #### [facility] [address] [place] [address] [address] Rocio Hernandez MONO # 0.6 103/ul Normal 0.3-0.8 [facility] Comment on above: Performed By: #### C BC #### [facility] [address] [place] [address] [address] Rocio Hernandez Monocytes/100 WBC (Bld) 10.3 % Normal 1.7-12.0 [facility] Comment on above: Performed By: #### C BC #### [facility] [address] [place] [address] Dr. Rocio Hernandez NEUT # 3.8 103/ul Normal 1.4-6.5 [facility] Comment on above: Performed By: #### C BC #### [facility] [address] [place] [address] Dr. Rocio Hernandez Neutrophils/100 WBC (Bld) 63.7 % Normal 43.0-75.0 [facility] Comment on above: Performed By: #### C BC #### [facility] [address] [place] [address] Dr. Rocio Hernandez Platelet mean volume (Bld) [Entitic vol] 9.0 fL Critically low 9.5-13.5 [facility] Comment on above: Performed By: #### C BC #### [facility] [address] [place] [address] Dr. Rocio Hernandez PLT 360 103/ul Normal 150-450 [facility] Comment on above: Performed By: #### C BC #### [facility] [address] [place] [address] Dr. Rocio Hernandez RBC 4.79 106/ul Normal 4.20-5.40 [facility] Comment on above: Performed By: #### C BC #### [facility] [address] [place] [address] Dr. Rocio Hernandez WBC 5.9 103/ul Normal 4.0-11.0 [facility] Comment on above: Performed By: #### C BC #### [facility] [address] [place] [address] [address] Rocio Hernandez FREE T3on 01-12-2023 FREE T3 2.31 pg/mlL Normal 2.18-3.98 [facility] Comment on above: Performed By: #### T SH, CMP, LIPID, FT3 ####[facility] [id number] [place] [address]DrClem Hernandez FREE T4on 01-12-2023 Free T4 [Mass/Vol] 1.21 ng/dL Normal 0.76-1.46 [facility] Comment on above: Performed By: #### B 12FOL, FT4 #### [facility] [address] [place] [address] [address] Rocio Hernandez GLYCOHEMOGLOBIN A1Con 2022 ADA RECOMMENDATION SEE BELOW Normal The [facility] Comment on above: Result Comment: ADA RECOMMENDED LIMIT 4.0 - 6.0 ADA THERAPEUTIC TARGET < 7.0 ACTION SUGGESTED > 7.0 Performed By: #### A 1C ####[facility] [address] [place] [address]DrClem Hernandez Glucose [Mass/Vol] 123 mg/dL Normal [facility] Comment on above: Performed By: #### A 1C ####[facility] [address] [place] [address]DrClem Hernandez HbA1c (Bld) [Mass fraction] 5.9 % Normal 4.5-6.2 [facility] Comment on above: Performed By: #### A 1C ####[facility] [address] [place] [address]Dr. Rocio Hernandez LIPID PROFILEon 01-12-2023 CHOL-HDL RATIO NORM SEE BELOW Normal [facility] Comment on above: Result Comment: 3.3 - 4.4 LOW RISK 4.4 - 7.1 AVERAGE RISK 7.1 - 11.0 MODERATE RISK >11.0 HIGH RISK Performed By: #### T SH, CMP, LIPID, FT3 #### [facility] [address] [place] [address] [address] Rocio Hernandez Cholesterol [Mass/Vol] 203 mg/dL Critically high <=200 [facility] Comment on above: Performed By: #### T SH, CMP, LIPID, FT3 #### [facility] [address] [place] [address] [address] Rocio Hernandez Cholesterol in HDL [Mass/Vol] 89 mg/dL Critically high 40-60 [facility] Comment on above: Performed By: #### T SH, CMP, LIPID, FT3 #### [facility] [address] [place] [address] [address] Rocio Hernandez Cholesterol in LDL [Mass/Vol] 87.8 mg/dL Normal [facility] Comment on above: Performed By: #### T SH, CMP, LIPID, FT3 #### [facility] [address] [place] [address] [address] Rocio Hernandez Cholesterol.total/C holesterol in HDL [Mass ratio] 2.3 {ratio} Normal [facility] Comment on above: Performed By: #### T SH, CMP, LIPID, FT3 #### [facility] [address] [place] [address] [address] Rocio Hernandez HDL NORMAL > or = 60 mg/dl - LO W CARDIOVASCULAR RISK <40 mg/dl - HIGH CARDIOVASCULAR RISK Normal [facility] Comment on above: Performed By: #### T SH, CMP, LIPID, FT3 #### [facility] [address] [place] [address] [address] Rocio Hernandez LDL CALC NORMAL SEE BELOW Normal [facility] Comment on above: Result Comment: <100 mg/dl OPTIMAL 100 - 129 mg/dl NEAR OR ABOVE OPTIMAL 130 - 159 mg/dl BORDERLINE HIGH 160 - 189 mg/dl HIGH >190 mg/dl VERY HIGH Performed By: #### T SH, CMP, LIPID, FT3 #### [facility] [address] [place] [address] [address] Rocio Hernandez Triglyceride [Mass/Vol] 131 mg/dL Normal <=150 [facility] Comment on above: Performed By: #### T SH, CMP, LIPID, FT3 #### [facility] [address] [place] [address] [address] Rocio Hernandez VLDL CALC 26.2 mg/dL Normal [facility] Comment on above: Performed By: #### T SH, CMP, LIPID, FT3 #### [facility] [address] [place] [address] [address] Rocio Hernandez MICROALB CREAT RATIO RANDOMo n 01-12-2023 mALB <1.3 Normal <=30.0 [facility] Comment on above: Performed By: #### M CRR ####[facility] [address] [place] [id number] Hernandez MALB CR RATIO 13.6 mg/g Normal 0.0-29.9 [facility] Comment on above: Performed By: #### M CRR ####[facility] [address] [place] [id number]. Rocio Hernandez MALB CR RATIO RANGE SEE BELOW Normal [facility] Comment on above: Result Comment: NO M ICROALBUMINURIA 0-29 MG/G CLINICAL MICROALBUMINURIA 30-300 MG/G MACROALBUMINURIA >300 MG/G Performed By: #### M CRR ####[facility] [address] [place] [id number]. Rocio Hernandez URINE CREAT 95.84 mg/dL Normal 20.00-300.00 [facility] Comment on above: Performed By: #### M CRR ####[facility] [address] [place] [id number]. Rocio Hernandez PROF 14(COMP METB)on 023 Albumin [Mass/Vol] 3.8 g/dL Normal 3.4-5.0 [facility] Comment on above: Performed By: #### T SH, CMP, LIPID, FT3 #### [facility] [address] [place] [address] [address] Rocio Hernandez Albumin/Globulin [Mass ratio] 0.9 {ratio} Normal [facility] Comment on above: Performed By: #### T SH, CMP, LIPID, FT3 #### [facility] [address] [address] [address] Rocio Hernandez ALP [Catalytic activity/Vol] 111 U/L Normal 46-116 [facility] Comment on above: Performed By: #### T SH, CMP, LIPID, FT3 #### [facility] [address] [place] [address] [address] Rocio Hernandez ALT [Catalytic activity/Vol] 42 U/L Normal 14-59 [facility] Comment on above: Performed By: #### T SH, CMP, LIPID, FT3 #### [facility] [address] [place] [address] [address] Rocio Hernandez Anion gap [Moles/Vol] 10.8 mmol/L Normal [facility] Comment on above: Performed By: #### T SH, CMP, LIPID, FT3 #### [facility] [address] [place] [address] Dr. Rocio Hernandez AST [Catalytic activity/Vol] 24 U/L Normal 15-37 [facility] Comment on above: Performed By: #### T SH, CMP, LIPID, FT3 #### [facility] [address] [place] [address] Dr. Rocio Hernandez Bilirubin [Mass/Vol] 0.4 mg/dL Normal 0.2-1.0 [facility] Comment on above: Performed By: #### T SH, CMP, LIPID, FT3 #### [facility] [address] [place] [address] Dr. Rocio Hernandez Calcium [Mass/Vol] 9.6 mg/dL Normal 8.5-10.1 [facility] Comment on above: Performed By: #### T SH, CMP, LIPID, FT3 #### [facility] [address] [place] [address] Dr. Rocio Hernandez Chloride [Moles/Vol] 93 mmol/L Critically low 98-107 [facility] Comment on above: Performed By: #### T SH, CMP, LIPID, FT3 #### [facility] [address] [place] [address] Dr. Rocio Hernandez CO2 [Moles/Vol] 31.2 mmol/L Normal 21.0-32.0 [facility] Comment on above: Performed By: #### T SH, CMP, LIPID, FT3 #### [facility] [address] [address] [address] Rocio Hernandez Creatinine [Mass/Vol] 1.02 mg/dL Normal 0.55-1.02 [facility] Comment on above: Performed By: #### T SH, CMP, LIPID, FT3 #### [facility] [address] [address] [address] Rocio Hernandez EGFR-AF TURKMEN >60 Normal >=60 [facility] Comment on above: Performed By: #### T SH, CMP, LIPID, FT3 #### [facility] [address] [address] [address] Rocio Hernandez EGFR-NON AF TURKMEN 55 mL/min/1.73m2 Critically low >=60 [facility] Comment on above: Performed By: #### T SH, CMP, LIPID, FT3 #### [facility] [address] [place] [address] Dr. Rocio Hernandez Globulin (S) [Mass/Vol] 4.4 g/dL Normal [facility] Comment on above: Performed By: #### T SH, CMP, LIPID, FT3 #### [facility] [address] [address] [address] Rocio Hernandez Glucose [Mass/Vol] 102 mg/dL Normal 74-106 [facility] Comment on above: Performed By: #### T SH, CMP, LIPID, FT3 #### [facility] [address] [address] [address] Rocio Hernandez Potassium [Moles/Vol] 4.0 mmol/L Normal 3.5-5.1 [facility] Comment on above: Performed By: #### T SH, CMP, LIPID, FT3 #### [facility] [address] [address] [address] Rocio Hernandez Protein [Mass/Vol] 8.2 g/dL Normal 6.4-8.[address] [facility] Comment on above: Performed By: #### T SH, CMP, LIPID, FT3 #### [facility] [address] [address] [address] Rocio Hernandez Sodium [Moles/Vol] 131 mmol/L Critically low 136-[address] [facility] Comment on above: Performed By: #### T SH, CMP, LIPID, FT3 #### [facility] [address] [address] [address] Rocio Hernandez Urea nitrogen [Mass/Vol] 6.0 mg/dL Critically low 7.0-18.0 [facility] Comment on above: Performed By: #### T SH, CMP, LIPID, FT3 #### [facility] [address] [address] [address] Rocio Hernandez Urea nitrogen/Creatinine [Mass ratio] 5.9 mg/mg Normal [facility] Comment on above: Performed By: #### T SH, CMP, LIPID, FT3 #### [facility] [address] [place] [address] Dr. Rocio Hernandez TSHon 01-12-2023 TSH 5.647 uIU/mL Critically high 0.358-3.740 [facility] Comment on above: Performed By: #### T SH, CMP, LIPID, FT3 #### [facility] [address] [place] [address] Dr. Rocio Hernandez VIT B12 AND FOLATEon 023 Cobalamin (Vitamin B12) [Mass/Vol] 1189.0 pg/mL Critically high 193.0-986.0 [facility] Comment on above: Performed By: #### B 12FOL, FT4 #### [facility] [address] [place] [address] Dr. Rocio Hernandez FOLATE 27.30 ng/mL Normal 8.60-58.90 [facility] Comment on above: Performed By: #### B 12FOL, FT4 #### [facility] [address] [place] [address] Dr. Rocio Hernandez MG MAMM SCREEN 3D TANIA CADon 12-19-2022 MG MAMM SCREEN 3D TANIA CAD Patient: MADAN PERRY Exam Date: 12/19/2022 : 1960 Gender:F Ordering : DR [place] D.O. Admission #: [id number] Family : Order #: [id number] CLICK HERE TO VIEW EXAM RADIOLOGY REPORT [...] ovarian cancer at age 54. LOCATION: [facility] BREAST COMPOSITION: Scattered areas fibroglandular density. [...] M.D. on 12/19/2022 at 11:19 Normal [facility] XR DEXA BONE DENSITYon 12-19 XR [...] by: RODRI FLORES Date: 2022-12-19 10:01 Normal [facility] FREE T3on 03-22-2022 FREE T3 2.43 pg/mlL Normal 2.18-3.98 [facility] Comment on above: Performed By: #### B MP, FT3, TSH ####[facility] [address] [address]Dr. Rocio Hernandez FREE T4on 03-22-2022 Free T4 [Mass/Vol] 1.43 ng/dL Normal 0.76-1.[address] [facility] Comment on above: Performed By: #### F T4 ####[facility] [address] [place], [place] [address]Dr. Rocio Hernandez PROF CHEM 8 (BAS METB)on Anion gap [Moles/Vol] 10.2 mmol/L Normal [facility] Comment on above: Performed By: #### B MP, FT3, TSH ####[facility] [address] [address]Dr. Rocio Hernandez Calcium [Mass/Vol] 8.8 mg/dL Normal 8.5-10.[address] [facility] Comment on above: Performed By: #### B MP, FT3, TSH ####[facility] [address] [address]Dr. Rocio Hernandez Chloride [Moles/Vol] 104 mmol/L Normal 98-107 [facility] Comment on above: Performed By: #### B MP, FT3, TSH ####[facility] [address] [address]Dr. Rocio Hernandez CO2 [Moles/Vol] 31.7 mmol/L Normal 21.0-32.0 [facility] Comment on above: Performed By: #### B MP, FT3, TSH ####[facility] [address] [address]Dr. Rocio Hernandez Creatinine [Mass/Vol] 0.96 mg/dL Normal 0.55-1.02 [facility] Comment on above: Performed By: #### B MP, FT3, TSH ####[facility] [address] [address]Dr. Rocio Hernandez EGFR-AF TURKMEN >60 Normal >=60 [facility] Comment on above: Performed By: #### B MP, FT3, TSH ####[facility] [address] [address]Dr. Rocio Hernandez EGFR-NON AF TURKMEN 59 mL/min/1.73m2 Critically low >=60 [facility] Comment on above: Performed By: #### B MP, FT3, TSH ####[facility] [address] [address]Dr. Rocio Hernandez Glucose [Mass/Vol] 110 mg/dL Critically high 74-106 [facility] Comment on above: Performed By: #### B MP, FT3, TSH ####[facility] [address] [address]Dr. Rocio Hernandez Potassium [Moles/Vol] 2.9 mmol/L Critically low 3.5-5.1 [facility] Comment on above: Result Comment: TEST REPEATED CRITICAL VALUE VERIFIED Performed By: #### B MP, FT3, TSH ####[facility] [address] [place], [place] [address]Dr. Rocio Hernandez Sodium [Moles/Vol] 141 mmol/L Normal 136-145 [facility] Comment on above: Performed By: #### B MP, FT3, TSH ####[facility] [address] [address]Dr. Rocio Hernandez Urea nitrogen [Mass/Vol] 12.0 mg/dL Normal 7.0-18.0 [facility] Comment on above: Performed By: #### B MP, FT3, TSH ####[facility] [address] [place], [place] [address]Dr. Rocio Hernandez Urea nitrogen/Creatinine [Mass ratio] 12.5 mg/mg Normal [facility] Comment on above: Performed By: #### B MP, FT3, TSH ####[facility] [address] [place], [place] [address]Pi. Rocio Hernandez TSHon 03-22-2022 TSH 0.137 uIU/mL Critically low 0.358-3.740 [facility] Comment on above: Performed By: #### B MP, FT3, TSH ####[facility] [address] [place], [place] [address]Fp. Rocio Hernandez Patient Letter FTMCon 2020 Patient Letter FT (Inserted Image. Wilda ble to display) May 26, 2021 MADAN PERRY [address] [place] [address] MADAN PERRY 1960 Dear Madan, This is a SECOND ATTEMPT to remind you that you are due for an appointment with [facility]. Please contact our office at [phone] to schedule an appointment at your earliest convenience. Thank you, [facility] Reminderson 05-26-2021 Reminders - From: Jane Onofre To: [facility] - Reminders/Recalls; Sent: 01/18/2021 12:33:31 EDT Show up: 04/25/2021 12:33:00 EDT Subject: Ambulatory Reminder Due Date/Time: 06/09/2021 12:33:00 EDT Reminder/Recall sara peace 5 year colon 06/09/2021 first recall letter second rcall letter Normal [facility] Patient Letter FTon 2020 Patient Letter FT (Inserted Image. Wilda ble to display) May 05, 2021 MADAN PERRY [address] [place] [address] MADAN PERRY 1960 Dear Madan, This is a reminder that you are due for an appointment with [facility]. Please contact our office at [phone] to schedule an appointment at your earliest convenience. Thank you, [facility] Vital Signs Date Time Vital Sign Value Performing Clinician Facility 05-09-2022 16:35-0400 Body height 161.29 cm Adilia Mederos Other [email or web address] Other 05-09-2022 16:35-0400 Body mass index (BMI) [Ratio] 25.63 kg/m2 Adilia Mederos Other [email or web address] Other 05-09-2022 16:35-0400 Body temperature 97.8 [degF] Adilia Mederos Other [email or web address] Other 05-09-2022 16:35-0400 Body weight 66.68 kg Adilia Mederos Other [email or web address] Other 05-09-2022 16:35-0400 Diastolic blood pressure 79 mm[Hg] Adilia Mederos Other [email or web address] Other 05-09-2022 16:35-0400 Respiratory rate 18 /min Adilia Mederos Other [email or web address] Other 05-09-2022 16:35-0400 SaO2% (BldA) [Mass fraction] 98 % Adilia Mederos Other [email or web address] Other 05-09-2022 16:35-0400 Systolic blood pressure 136 mm[Hg] Adilia Mederos Other [email or web address] Other 07-21-2021 16:05-0400 Body height 161.29 cm Lilian Ferreira Other [email or web address] Other 07-21-2021 16:05-0400 Body mass index (BMI) [Ratio] 26.5 kg/m2 Lilian Ferreira Other [email or web address] Other 07-21-2021 16:05-0400 Body temperature 96.2 [degF] Lilian Ferreira Other [email or web address] Other 07-21-2021 16:05-0400 Body weight 68.95 kg Lilian Ferreira Other [email or web address] Other 07-21-2021 16:05-0400 Diastolic blood pressure 95 mm[Hg] Lilian Ferreira Other [email or web address] Other 07-21-2021 16:05-0400 Respiratory rate 18 /min Lilian Ferreira Other [email or web address] Other 07-21-2021 16:05-0400 SaO2% (BldA) [Mass fraction] 99 % Lilian Ferreira Other [email or web address] Other 07-21-2021 16:05-0400 Systolic blood pressure 132 mm[Hg] Lilian Ferreira Other [email or web address] Other 06-22-2021 14:20-0400 Body height 161.29 cm Adilia Mederos Other [email or web address] Other 06-22-2021 14:20-0400 Body mass index (BMI) [Ratio] 25.98 kg/m2 Adilia Cardenasault Other [email or web address] Other 06-22-2021 14:20-0400 Body temperature 96.4 [degF] Adilia Rosa M Other [email or web address] Other 06-22-2021 14:20-0400 Body weight 67.59 kg Adilia Rosa M Other [email or web address] Other 06-22-2021 14:20-0400 Diastolic blood pressure Adilia Mederos Other [email or web address] Other 06-22-2021 14:20-0400 Respiratory rate 18 /min Adilia Mederos Other [email or web address] Other 06-22-2021 14:20-0400 SaO2% (BldA) [Mass fraction] 98 % Adilia Mederos Other [email or web address] Other 06-22-2021 14:20-0400 Systolic blood pressure 111 mm[Hg] Adilia Mederos Other [email or web address] Other Encounters Encounter Date Encounter Type Care Provider Facility Start: 08-25-2023 End: 08-25-2023 ambulatory ALIZA AGUILAR Facility:[facility] Start: 08-25-2023 End: 08-25-2023 Office outpatient visit 15 minutes Aliza Aguilar MD Work Phone: [address] [facility] Comment on above: Hand arthritis (Prim maurisio Dx) Start: 08-21-2023 End: 08-22-2023 [facility]ulatory [facility] Start: 08-19-2023 Letter encounter Yesy Covarrubias OT Work Phone: [facility] Start: 07-31-2023 End: 08-01-2023 [facility]ulatory [facility] Start: 07-24-2023 End: 07-25-2023 ambulatory [facility] Start: 07-20-2023 End: 07-20-2023 ambulatory Aliza Aguilar Facility:[facility] Start: 07-20-2023 End: 07-20-2023 ambulatory DO [place] Work Phone: [facility] Work Phone: Start: 07-20-2023 End: 07-20-2023 Patient encounter procedure DO [place] Work Phone: [facility] [address] Work Phone: Start: 07-10-2023 End: 07-11-2023 ambulatory Meet Harp MD Facility:[facility] Start: 06-16-2023 End: 06-17-2023 ambulatory UNKNOWN PROVIDER [facility] Start: 06-16-2023 End: 06-16-2023 Office outpatient visit 25 minutes Aliza Aguilar MD Work Phone: [address] [facility] Comment on above: Left hand pain (Prim maurisio Dx) Start: 06-16-2023 End: 06-16-2023 [facility] Work Phone: [address] [facility] Comment on above: Left hand pain Start: 02-07-2023 End: 02-08-[address] [place] Facility:[facility] Start: 01-27-2023 End: 01-28-[address] [place] Facility:[facility] Start: 01-23-2023 End: 02-22-2023 ambulatory SHAIKH Eduardo ROSS Facility:[facility] Start: 01-16-2023 Encounter for genera l adult medical examination without abnormal findings DR [place] [facility] Start: 01-12-2023 End: 01-13-[address] [...] 05-09-2022 End: 05-09-2022 ambulatory Adilia Mederos Other [email or web address] Other Start: 05-09-2022 Office outpatient vi sit [...] vaccination Tetanus (T d or Tdap) [facility] Start: 01-13-2028 Cholesterol [Mass/volume] in Serum or Plasma Cholesterol [facility] Start: 08-25-2023 End: 08-25-2023 Patient encounter procedure 08/25/2023 11:30 AM EST Office Visit [address] [facility] [address] [place], [place] [id number] Aliza Aguilar MD [address] [place] [id number] [facility] Start: 07-20-2023 XR pre/post mri xray XR pre/post mri xray [facility] Start: 07-20-2023 [facility] Start: 07-20-2023 MR Wrist - left WO contrast [facility] Start: 07-20-2023 MRI of left wrist MR wrist LT wo con [facility] Start: 07-20-2023 MR Hand - left WO contrast [facility] Start: 07-20-2023 MRI of left hand MR hand LT wo con [facility] Start: 06-25-2023 Influenza vaccination Influenza Vacc ine (#1) [facility] Start: 06-16-2023 End: 06-16-2024 MR Wrist - left WO contrast MR WRIST LEFT W/O Imaging Routine Left hand pain Expected: 06/16/2023, Expires: 06/16/2024 [facility] [employer] Work Phone: Comment on above: Expected: [...] Hepatitis C screening Hepatitis C An tibody [facility] Start: 1974 HIV screening HIV Test [facility] Start: 1960 COVID-19 Vaccine ( formulation) COVID-19 Vaccine ( formulation) [facility] Start: 1960 Screening for malign ant neoplasm of colon Colonoscopy [facility] Immunizations Immunization Date Immunization Notes Care Provider Fa cility 08-11-2023 influenza, injectabl e, quadrivalent, preservative free Aliza Aguilar MD Work Phone: [facility] 08-11-2023 Respiratory syncytia l virus (RSV), vaccine, bivalent, protein subunit RSV prefusion F, diluent reconstituted, 0.5 mL, preservative free (PFD=797) Aliza Aguilar MD Work Phone: [facility] 06-18-2022 influenza, injectabl e, quadrivalent, preservative free Aliza Aguilar MD Work Phone: [facility] 06-18-2022 influenza virus vacc ine, unspecified formulation Aliza Aguilar MD Work Phone: [facility] 02-05-2022 Pfizer Monovalent (1 2+ yrs) SARS-COV-2 (COVID-19) vaccine, mRNA, spike protein, LNP, pres. free, 30 mcg/0.3mL dose, betito-sucrose (RKR=534) Aliza Aguilar MD Work Phone: [facility] 08-11-2021 influenza, injectabl e, quadrivalent, preservative free Yesy Marci OT Work Phone: [facility] 08-11-2021 influenza virus vacc ine, unspecified formulation Yesy Marci OT Work Phone: [facility] 07-24-2020 zoster vaccine recombinant K athryn Marci OT Work Phone: [facility] 07-11-2020 Influenza, injectabl e, Madin [place] Canine Kidney, preservative free, quadrivalent Yesy Marci OT Work Phone: [facility] 04-18-2020 zoster vaccine recombinant K athryn Marci OT Work Phone: [facility] 08-28-2019 Influenza, injectabl e, Madin [place] Canine Kidney, preservative free, quadrivalent Yesy Marci OT Work Phone: [facility] 07-01-2019 influenza, high dose seasonal, preservative-free Yesy Marci OT Work Phone: [facility] 06-25-2019 pneumococcal polysac charide vaccine, 23 valent Yesy Marci OT Work Phone: [facility] 07-06-2018 influenza, injectabl e, quadrivalent, contains preservative Yesy Marci OT Work Phone: [facility] 06-04-2018 tetanus toxoid, redu karen diphtheria toxoid, and acellular pertussis vaccine, adsorbed Yesy Marci OT Work Phone: [facility] 08-19-2017 influenza, injectabl e, quadrivalent, preservative free Yesy Marci OT Work Phone: [facility] 08-09-2017 influenza, injectabl e, quadrivalent, contains preservative Yesy Marci OT Work Phone: [facility] 08-01-2016 influenza, injectabl e, quadrivalent, preservative free Yesy Marci OT Work Phone: [facility] 07-11-2015 influenza, injectabl e, madin zakia canine kidney, preservative free Yesy Marci OT Work Phone: [facility] 07-11-2015 pneumococcal conjuga te vaccine, 13 valent Yesy Marci OT Work Phone: [facility] 08-13-2009 novel influenza-H1N1 -09, preservative-free, injectable Yesy Marci OT Work Phone: [facility] 07-17-2009 influenza virus vacc ine, unspecified formulation Yesy Marci OT Work Phone: [facility] 08-15-2008 influenza virus vacc ine, unspecified formulation Yesy Marci OT Work Phone: [facility] Payers Date Payer Category Payer Self-pay [id number] 2018 Unknown [id number] 2013 Medicare [id number] [id number] [id number] 1960 [facility] [id number] 2.16.840.1.288255.19 1960 Medicare [id number] 2.16.840.1.358963.19 1959 Unknown [id number] 2.16.840.1.978032.3.579.2.593 1959 Unknown [id number] 2.16.840.1.133559.3.579.2.593 1959 Unknown [id number] 2.16.840.1.716106.3.579.2.593 1959 Unknown [id number] 2.16.840.1.267970.3.579.2.593 1959 Unknown [id number] 2.16.840.1.334257.3.579.2.593 1959 Unknown [id number] 2.16.840.1.970011.3.579.2.593 1959 Unknown [id number] 2.16.840.1.289012.3.579.2.59 1959 Unknown [id number] 2.16.840.1.713292.3.579.2.59 1959 Unknown [id number] 2.16.840.1.723498.3.579.2.59 1959 Unknown [id number] 2.16.840.1.807719.3.579.2.59 1959 Unknown [id number] 2.16.840.1.412126.3.579.2.593 1959 Unknown [id number] 2.16.840.1.486659.3.579.2.593 1959 Unknown [id number] 2.16.840.1.480902.3.579.2.593 1959 Unknown [id number] 2.16.840.1.433303.3.579.2.593 1959 Unknown [id number] 2.16.840.1.851600.3.579.2.593 1959 Unknown [id number] 2.16.840.1.872958.3.579.2.593 1959 Unknown [id number] 2.16.840.1.861230.3.579.2.593 1959 Unknown [id number] 2.16.840.1.338355.3.579.2.593 1959 Unknown [id number] 2.16.840.1.383347.3.579.2.593 1959 Unknown [id number] 2.16.840.1.242500.3.579.2.593 1959 Unknown [id number] 2.16.840.1.663128.3.579.2.732 1959 Unknown [id number] 2.16.840.1.309147.3.579.2.732 1959 Unknown [id number] 2.16.840.1.464707.3.579.2.732 1959 Unknown [id number] 2.16.840.1.303582.3.579.2.196 1959 Unknown [id number] 2.16.840.1.806379.3.579.2.196 1959 Unknown [id number] 2.16.840.1.957524.3.579.2.196 1959 Unknown [id number] 2.16.840.1.874781.3.579.2.196 Medicare Medicare Nonpatient [id number] Unknown [id number] 2.16.840.1.760289.3.579.2.531 Social History Date Type Detail Facility Unknown if ever smoked [email or web address] Other Sex Assigned At [email or web address] Other Start: 05-31-2019 Tobacco smoking stat [facility] Ex-smoker [facility] History of tobacco use Current smoker [facility] Start: 05-31-2019 Tobacco use and exposure Smokeless tobacco non-user [facility] Start: 04-07-2020 Alcohol intake Lifetime non-d han (finding) [facility] Start: 07-09-2019 History SDOH Alcohol Frequency 1 [facility] Start: 1960 Sex Assigned At Not on file [facility] Start: 1960 Sex Assigned At Female F [facility] Medical Equipment Procedure Code Equipment Code Equipment Origin al Text Equipment Identifier Dates [place] 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 Patient Office Note or Post OP Note Name:Madan Perry Date: 08/25/2023 CC: left wrist pain at [facility] area No chief complaint on [...] Aliza Aguilar MD Injection Procedure.ecu region 08/25/2023 [id number] Madan Menchacadaisy The patient requested an injection [...] applied. documented in this encounter [facility] 06-16-2023 Note Addended by: ALIZA AGUILAR on: 06/16/2023 11:34 AM Modules accepted: Orders [facility] 06-16-2023 Miscellaneous Notes Addended by: ALIZA AGUILAR on: 06/16/2023 11:34 AM Modules accepted: Orders documented in this encounter [facility] 06-16-2023 History of Presen t illness [...] coumadin. documented in this encounter [facility] 05-09-2022 Evaluation note Encounter Date Diagnosis [...] Xray that was ordered outpatient by PCP [email or web address] Other 08-10-2022 NotePROCEDURE: XR FOOT RT MIN 3 VIEWS COMPARISON: None. HISTORY: Pain in right foot FINDINGS: BONES:No fracture, acute abnormality, or significant arthropathy. Mild enthesopathic spurring of the calcaneus at the Achilles insertion SOFT TISSUES:Negative. No visible soft tissue swelling. EFFUSION:None visible. OTHER: Negative. IMPRESSION: No acute abnormality Electronically authenticated by: MARTINEZ HARVEY Date: 2022-05-04 16:22[facility]10-27-2021 Evaluation note* Encounter Date Diagnosis Assessment Notes Treatment Notes Treatment Clinical Notes Jun, Swelling of left elbow (ICD-10 - M25.422) Jun, Other Patient refe rred to the ER due to swelling, ecchymosis, pain of her left elbow with no known injury. It is felt the patient needs blood work to evaluate [email or web address] Other 09-28-2021 Evaluation note* Encounter Date Diagnosis Assessment Notes Treatment Notes Treatment Clinical Notes May, Bee sting, undetermined intent, initial encounter (ICD-10 - T63.444A) May continue Xyzal and Benadryl as directed. [email or web address] Other Evaluation note* Diagnosis Left hand pain- Primary Pain in limb Left hand pain Pain in limb [facility] Left [facility] pain Pain in limb [facility] Work Phone: Evaluation note* Diagnosis Hand [...] second t roseann Hospitalization History see above [email or web address] Other Summary Purpose Family History No Family [...] Diagnoses Left hand pain Aliza Aguilar MD [address] [place] [address] Referral ID Status Reason Start Date Expiration Date Visits Requested Visits Authorized [id number] Authorized Patient Preference 06/16/2023 06/16/2024 3 3 Comments [place] home, [place], [place] Specialty Diagnoses / Procedures Referred By Randi cardona Referred To Contact Radiology Diagnoses Left hand pain Procedures MR WRIST LEFT W/O Aliza Aguilar MD [address] [place] [address] [address] Referral ID Status Reason Start Date Expiration Date V isits Requested Visits Authorized [id number] Authorized 06/16/2023 06/15/2024 1 1 Specialty Diagnoses / Procedures Referred By Contac t Referred To Contact Radiology Diagnoses Left hand pain Procedures XR HAND LEFT 3 VIEWS [facility] [address] [place] [address] [facility] [address] [place] [id number] Referral ID Status Reason Start Date Expiration Date Visits Re quested Visits Authorized [id number] Closed 06/16/2023 06/15/2024 1 1 Chief Complaint and Reason for Visit Chief Complaint median nerve karel krista Additional Source Comments INFORMATION SOURCE (unrecogn ized section and content) DATE CREATED AUTHOR 05/27/2021 Antonio [employer] [facility] [facility] DATE CREATED AUTHOR AUTHOR'S ORGANIZ ATION 03/03/2023 [facility] DATE CREATED AUTHOR AUTHOR'S ORGANIZ ATION 07/30/2023 [facility] DATE CREATED AUTHOR AUTHOR'S ORGANIZ ATION [facility]/28/2023 [facility] DATE CREATED AUTHOR AUTHOR'S ORGANIZ ATION 09/03/2023 [facility] DATE CREATED AUTHOR AUTHOR'S ORGANIZ ATION 09/10/2023 [facility] REASON FOR VISIT (unrecogniz ed section and content) Reason Comments Hand/finger symptoms Specialty Diagnoses / Procedures Referred By Contac t Referred To Contact Radiology Diagnoses Left hand pain Procedures XR HAND LEFT 3 VIEWS [facility] [address] [place] [id number] [facility] DIAGNOSTIC RADIOLOGY [address] [place] [address] Referral ID Status Reason Start Date Expiration Date Visits Re quested Visits Authorized [id number] Closed 06/16/2023 06/15/2024 1 1 Reason Comments Hand/finger symptoms Care Teams (unrecognized sec tion and content) Supervisor Jewelry Department Relationship Specialty Start Date End Date Yesy Covarrubias, OT [address] [place], [place] [id number] Occupational Therapist Occupational Therapy 06/30/20 Aliza Aguilar MD [address] [place], [place] Physician Orthopaedic Hand Service 06/30/20 Supervisor Jewelry Department Relationship Specialty Start Date End Date Yesy Covarrubias, OT [address] [facility] [place] [address] Occupational Therapist Occupational Therapy 06/30/20 Aliza Aguilar MD [address] [place] [address] Physician Orthopaedic Hand Service 06/30/20 Supervisor Jewelry Department Relationship Specialty Start Date End Date Yesy Covarrubias, OT [address] [facility] [place] [address] Occupational Therapist Occupational Therapy 06/30/20 Aliza Aguilar MD [address] [place] [address] Physician Orthopaedic Hand Service 06/30/20 Team Status: Active Member Role Status Dates [place] , DO Primary Care Provider Active Team Status: Inactive Member Role Status Dates [place] , DO Primary Care Provider Active Aliza Aguilar Attending Provider Active Supervisor Jewelry Department Relationship Specialty Start Date End Date Yesy Covarrubias, OT [address] [facility] [place] [address] Occupational Therapist Occupational Therapy 06/30/20 Aliza Aguilar MD [address] [place] [address] Physician Orthopaedic Hand Service 06/30/20 Supervisor Jewelry Department Relationship Specialty Start Date End Date Yesy Covarrubias, OT [address] [facility] [place] [address] Occupational Therapist Occupational Therapy 06/30/20 Aliza Aguilar MD [address] [place] [address] Physician Orthopaedic Hand Service 06/30/20 Goals (unrecognized [...] BE BASED ON THE PRIMARY CLINICAL RECORDS. [facility]. provides no warranty or guarantee of the accuracy or completeness of information in this document.
[2023-10-09 09:00] LABS: INR 1.62; Prothrombin Time 16.7 sec (9.0-11.6)
[2023-10-09 09:13] VITALS: BP 122/79; PULSE 105; RESP 16; TEMP 36.3; O2SAT 98
[2023-10-09 10:15] VITALS: BP 124/73; BP 134/76; PULSE 94; PULSE 95; RESP 18; O2SAT 100
--- NOTE | 2023-10-09 10:15 | W.PM.PROCNOT ---
Date of procedure: 10/09/23 Pre-op diagnosis: Lumbar spondylosis Post-op diagnosis: same as pre-op Procedure: Procedure: Bilateral L1-2, L2-3 medial branch block Medications: Bupivacaine 0.25% 6cc The patient was seen and examined in the preoperative holding area.? An informed consent was obtained and placed on the chart.? The patient was brought to the medical procedure unit and placed in the prone position.? A timeout was completed verifying correct patient, procedure site, positioning, plan, and special equipment.? Using aseptic technique, the needle was placed at left L1. Under direct fluoroscopic visualization a Quincke-tipped spinal needle was advanced to the junction of the superior articulating process with the transverse process at the designated medial branch segment.? Preceded by negative aspiration, the above-mentioned injectate was placed in 1 mL aliquots.? The procedure was repeated at left L2, 3.? The needle was removed and insertion site was covered. The same procedure, at the same levels, was completed on the right side. The patient was taken to the postprocedural recovery area and monitored for an appropriate length of time before found suitable for discharge in the company of a responsible adult. Anesthesia: Local Surgeon: Meet Harp Pathology: none sent Condition: stable Disposition: no change
[2023-10-09] MEDS: BUPIVACAINE HCL 0.25% PF 25 MG/10 ML VIAL 8 ML INJ (10:16)
[2023-10-09] MEDS: LIDOCAINE HCL 2% PF 100 MG/5 ML VIAL 1 ML INJ (10:16)
== END 2023-10-09 10:18 | disposition home or self-care (01) ==
PROVIDERS: PCP Family Medicine; Visit Provider Anesthesiology
DX: M47.816 Spondylosis without myelopathy or radiculopathy, lumbar region (principal)
CPT/HCPCS: 36415; 64493; 64494; 85610; J0665

== ENCOUNTER 2023-10-19 13:18 | Outpatient (OUT) | payer BC, MEDICARE, SELFPAY ==
--- OUTSIDE RECORDS SUMMARY | 2023-10-19 13:22 | XMS_ITS | CCD ---
Author Name Unknown Address [address] [place] [address] Organization [facility] Care Team Providers Care Defensive Fire Control Systems Operator Name Role Phone Adilia Mederos Unavailable HannaLilian Unavailable Yesy Covarrubias OT Unavailable Aliza Aguilar [...] LAKE, DR TANK Aguillon Primary Care Unavailable CLWSHAIKH Eduardo VILLARREAL Admitting Unavailable LAKE, DR TANK Aguillon Primary Care Unavailable SHAIKH Eduardo ROSS Attending Unavailable LAKE, DR TANK Aguillon Attending Unavailable LAKE, DR TANK Aguillon Primary Care Unavailable LAKE, DR TANK Aguillon Admitting Unavailable SHAIKH Eduardo ROSS Admitting Unavailable SHAIKH Eduardo ROSS Attending Unavailable LAKE, DR TANK Aguillon Primary [...] DR TANK Aguillon Primary Care Unavailable Marci CUEVAS, Yesy Unavailable Aliza Aguilar MD. Unavailable [phone] DO [place] Primary Care Provider Aliza Aguilar Attending Provider Aliza Aguilar Admitting Unavailable Aliza Aguilar Attending Unavailable [place] [facility] Unavailable PROVIDER, UNKNOWN Admitting Unavailable PROVIDER, UNKNOWN Attending Unavailable PROVIDER, UNKNOWN Attending Unavailable PROVIDER, UNKNOWN Admitting Unavailable ALIZA AGUILAR Referring Unavailable PROVIDER, UNKNOWN Admitting Unavailable PROVIDER, UNKNOWN Attending Unavailable Giedraitis , Andsilvana Shipley Attending Unavailable Giedraitis MD, Andrius Shipley Attending Unavailable Giedraitis MD, Andrius Quinten Attending Unavailable Giedraitis MD, Andrius Quinten Attending Unavailable Giedraitis MD, Andrius Quinten Attending Unavailable Allergies Allergy Classification Reported Allergen(s) Allergy Type Date of Onset Reaction(s) Facility (3 sources) Acetaminophen / oxyCODONE Drug Allergy stomach upset [facility] Other (3 sources) Adhesive Tape Propensity to adverse reactions rash [facility] Other (2 sources) Cephalexin Drug Allergy anaphylaxis [facility] Other (9 sources) Erythromycin; Translations: [ERYTHROMYCIN] Drug Allergy 02-01-20 08 Other [facility] (4 sources) Iodine; Translations: [iodine] Drug Allergy 01-31-20 13 rash [facility] (3 sources) Latex Propensity to adverse reactions rash [facility] [employer] Other (3 sources) Penicillin G Benzathine Drug allergy anaphylaxis [facility] Other (3 sources) Procaine Drug Allergy headaches [facility] Other (2 sources) Cephalexin; Translations: [Keflex] Drug Allergy 01-31-[address] [facility] Repository (1 source) Novocain Drug allergy Unknown [facility] [employer] Other (6 sources) Acetaminophen; Translations: [ACETAMINOPHEN] Drug [...] [CIPROFLOXACIN] Drug Allergy 12-22-19 06 Other, Rash [facility] (6 sources) Doxycycline; Translations: [DOXYCYCLINE] Drug Allergy 01-24-20 Itching [facility] (6 sources) Penicillin G; Translations: [PENICILLIN G POTASSIUM] Drug Allergy 02-01-20 08 Anaphylactic Shock [facility] (6 sources) Penicillins; Translations: [PENICILLINS] Propensity to adverse reactions to drug 09-03-20 13 Anaphylactic Shock [facility] (6 sources) Quinolones (Antibiotic); Translations: [QUINOLONES] Propensity to adverse reactions to drug 03-31-20 08 Respiratory Problems [facility] Work Phone: (6 sources) Sulfonamides (Antibiotic); Translations: [SULFA ANTIBIOTICS] Propensity to adverse reactions to drug 02-01-20 08 Rash [facility] (6 sources) Bandage Tape; Translations: [BANDAGE TAPE] Propensity to adverse reactions 09-03-20 13 Rash [facility] (6 sources) Erythromycin Base; Translations: [ERYTHROMYCIN BASE] Propensity to adverse reactions to drug 01-24-20 20 Other [facility] (6 sources) Iodides; Translations: [IODIDES] Propensity to adverse reactions to drug 10-31-19 14 Hives [facility] (6 sources) Other (Review Comments!); Translations: [OTHER [...] sources) Barbiturate, Central Nervous System Stimulant, Methylxanthine Owskivbdis-WHAI-Bh ffeine 50-300-40 MG CAPS Take by mouth daily as needed. 0 Active take 1 capsule by mo uth every four hours Oidkmdtnul-SQAY-Uqwhtojk 50-325-40 MG 1 capsule as needed Orally every 4 hrs Not-Taking Fioricet Active acetaminophen 325 mg / HYDROcodone bitartrate 5 mg oral tablet (10 sources) Opioid Agonist take 1 tablet by mouth once hydrocodone-acetaminophen (NORCO) 5-325 mg per tablet Take 1 Tablet by mouth. 0 Active HYDROcodone-Acet aminophen 7.5-300 MG Orally Not-Taking [place] Active acyclovir 400 mg oral tablet (8 sources) Herpesvirus Nucleoside Analog DNA Polymerase Inhibitor, Herpes Simplex Virus Nucleoside Analog DNA Polymerase Inhibitor, Herpes Zoster Virus Nucleoside Analog DNA Polymerase Inhibitor take 1 tablet by mouth once daily acyclovir (ZOVIRAX) 400 MG tablet Take 400 mg by mouth daily. 0 Active take 1 tablet by lisa every twelve hours Acyclovir 400 MG 1 [...] by mouth daily. Followed in coumadin clinic [place], [place] 0 Active take 1 tablet by [...] 4 mg/0.1 mL nasal liquid Instill 1 [place] into one nostril (alternate sides) as needed. 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 [facility], [address] Chloride [Moles/Vol] 99 mmol/L Normal (98 - 107) [facility] Comment on above: Order Comment: FACIL ITY: [facility] [id number] Performed By: #### C HEM-B #### [facility] [address] [facility], [address] CO2 [Moles/Vol] 27 mmol/L Normal (22 - 30) [facility] Comment on above: Order Comment: FACIL ITY: [facility] [id number] Performed By: #### C HEM-B #### [facility] [address] [facility], [address] Creatinine [Mass/Vol] 0.74 mg/dL Normal (0.52 - 1.04) [facility] Comment on above: Order Comment: FACIL ITY: [facility] [id number] Performed By: #### C HEM-B #### [facility] [address] [place], [address] GFR- AMER 95.6 ML/M1.7 Normal (60.0 - 140.1) [facility] Comment on above: Order Comment: FACIL ITY: [facility] [id number] Performed By: #### C HEM-B #### [facility] [address] [place], [address] GFR-NON AFRIC-AMER 79.0 ML/M1.7 Normal (60.0 - 115.8) [facility] Comment on above: Order Comment: FACIL ITY: [facility] [id number] Performed By: #### C HEM-B #### [facility] [address] [place], [address] Glucose [Mass/Vol] 100 mg/dL Normal (74 - 106) [facility] Comment on above: Order Comment: FACIL ITY: [facility] [id number] Performed By: #### C HEM-B #### [facility] [address] [place], [address] Potassium [Moles/Vol] 4.6 mmol/L Normal (3.5 - 5.1) [facility] Comment on above: Order Comment: FACIL ITY: [facility] [id number] Performed By: #### C HEM-B #### [facility] [address] [place], [address] Sodium [Moles/Vol] 136 mmol/L Low (137 - 145) [facility] Comment on above: Order Comment: FACIL ITY: [facility] [id number] Performed By: #### C HEM-B #### [facility] [address] [facility], [address] Urea nitrogen [Mass/Vol] 11 mg/dL Normal (7 - 17) [facility] Comment on above: Order Comment: FACIL ITY: [facility] [id number] Performed By: #### C HEM-B #### [facility] [address] [facility], [address] Progress Noteson 08-25-2023 Pretzel Cooker Authentication Interface Message Text CC: Left hand and wrist pain Follow up after MRI done at [facility]. Normal [facility] Pretzel Cooker Authentication Interface Message Text Patient Office Note or Post OP Note Name:Madan Perry Date: 08/25/2023 CC: left wrist pain at [facility] area No chief complaint on file. [...] this patient. Aliza Aguilar MD Injection Procedure.[facility] 08/25/2023 [id number] Madan Stanley Michaelmelitondaisy The patient requested an injection of Lidocaine [...] alcohol and a dressing applied. Normal [facility] MR wrist LT wo conon 023 MR wrist LT wo con [facility] Main [address] [address] MRI Report Signed Patient: Madan Perry MR#: [id number] : 1960 Acct:[id number] Age/Sex: 63 / F ADM Date: 07/20/23 Loc: [facility] Room: Type: [facility] CLI Attending Dr: Aliza Aguilar Copies to: Aliza Aguilar Ordering Provider: Aliza Aguilar Date of Service: 07/20/23 MR/MR hand LT wo con: MEDIAN NERVE COMPRESSION ([id number]) MR/MR wrist LT wo con: MEDIAN NERVE COMPRESSION ([id number]) XR/XR pre/post mri xray: MEDIAN NERVE COMPRESSION [...] Jose Dial M.D.07/21/2023 7:38 PM Dictation Location: [place] [address] Transcribed By: [facility] 07/21/231937 Dictated By: Jose Dial DO 07/20/23 1525 Signed By: 07/21/231937 [facility] Telephone Encounteron 2022 Pretzel [employer]er Authentication Interface Message Text Spoke with patient and scheduled. Normal [facility] Telephone Encounteron 2022 Pretzel [employer]er Authentication Interface Message Text Pt called as [...] she would need something sooner. Contact pt @[phone] Normal [facility] Addendum Noteon 06-16-2023 Pretzel Cooker Authentication Interface Message Text Addended by: ALIZA AGUILAR on: 06/16/2023 11:34 AM Modules accepted: Orders Normal [facility] Progress Noteson 06-16-2023 Pretzel Cooker Authentication Interface Message Text Patient Office Note [...] this patient. Aliza Aguilar MD Normal [facility] Pretzel Cooker Authentication Interface Message Text CC: Left hand pain Pain Left wrist and hand; tingling to middle and ring fingers. Pt states ganglion which was removed has returned and is painful. CMC joint painful. 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 Normal [facility] XR HAND LEFT 3 VIEWSon 06-16 [...] findings. Left hand MACRO: None Normal [facility] XR Hand - left 3 Viewson [...] with the findings. Left hand MACRO: None [facility] Radiology Study observation (narrative) [facility] Hand - left 3 ViewsOrdere d By: Alberto Llanes on 06-16-2023 [facility] Work Phone: US DARNELL DOP LEG BILon [...] 01-12-2023 BASO # 0.1 103/ul Normal 0.0-0.[address] [facility] Comment on above: Performed By: #### C BC #### [facility] [address] [place] [address] Dr. Rocio Hernandez Basophils/100 WBC (Bld) 1.0 % Normal 0.2-2.[address] [facility] Comment on above: Performed By: #### C BC #### [facility] [address] [place] [address] Dr. Rocio Hernandez EO # 0.2 103/ul Normal 0.0-0.[address] [facility] Comment on above: Performed By: #### C BC #### [facility] [address] [place] [address] Dr. Rocio Hernandez Eosinophils/100 WBC (Bld) 2.9 % Normal 0.9-7.[address] [facility] Comment on above: Performed By: #### C BC #### [facility] [address] [place] [address] Dr. Rocio Hernandez Erythrocyte distribution width (RBC) [Ratio] 14.1 % Normal 11.0-15.[address] [facility] Comment on above: Performed By: #### C BC #### [facility] [address] [place] [address] Dr. Rocio Hernandez Hematocrit (Bld) [Volume fraction] 41.2 % Normal 36.0-48.0 [facility] Comment on above: Performed By: #### C BC #### [facility] [address] [place] [address] Dr. Rocio Hernandez Hemoglobin (Bld) [Mass/Vol] 13.6 g/dL Normal 12.0-16.[address] [facility] Comment on above: Performed By: #### C BC #### [facility] [address] [place] [address] Dr. Rocio Hernandez IG # 0.01 10e3/ul Normal 0.00-0.[address] [facility] Comment on above: Performed By: #### C BC #### [facility] [address] [place] [address] Dr. Rocio Hernandez IG % 0.2 % Normal 0.0-0.5 [facility] Comment on above: Performed By: #### C BC #### [facility] [address] [place] [address] Dr. Rocio Hernandez LYMPH # 1.3 103/ul Normal 1.2-3.[address] [facility] Comment on above: Performed By: #### C BC #### [facility] [address] [place] [address] Dr. Rocio Hernandez Lymphocytes/100 WBC (Bld) 21.9 % Normal 20.5-60.[address] [facility] Comment on above: Performed By: #### C BC #### [facility] [address] [place] [address] Dr. Rocio Hernandez MANUAL DIFF REQ NO Normal [facility] Comment on above: Performed By: #### C BC #### [facility] [address] [place] [address] Dr. Rocio Hernandez MCH (RBC) [Entitic mass] 28.4 pg Normal 26.7-34.[address] [facility] Comment on above: Performed By: #### C BC #### [facility] [address] [place] [address] Dr. Rocio Hernandez MCHC (RBC) [Mass/Vol] 33.0 g/dL Normal 29.9-35.[address] [facility] Comment on above: Performed By: #### C BC #### [facility] [address] [place] [address] Dr. Rocio Hernandez MCV (RBC) [Entitic vol] 86.0 fL Normal 81.0-99.[address] [facility] Comment on above: Performed By: #### C BC #### [facility] [address] [place] [address] Dr. Rocio Hernandez MONO # 0.6 103/ul Normal 0.3-0.[address] [facility] Comment on above: Performed By: #### C BC #### [facility] [address] [place] [address] Dr. Rocio Hernandez Monocytes/100 WBC (Bld) 10.3 % Normal 1.7-12.[address] [facility] Comment on above: Performed By: #### C BC #### [facility] [address] [place] [address] Dr. Rocio Hernandez NEUT # 3.8 103/ul Normal 1.4-6.5 [facility] Comment on above: Performed By: #### C BC #### [facility] [address] [place] [address] Dr. Rocio Hernandez Neutrophils/100 WBC (Bld) 63.7 % Normal 43.0-75.[address] [facility] Comment on above: Performed By: #### C BC #### [facility] [address] [place] [address] Dr. Rocio Hernandez Platelet mean volume (Bld) [Entitic vol] 9.0 fL Critically low 9.5-13.[address] [facility] Comment on above: Performed By: #### C BC #### [facility] [address] [place] [address] Dr. Rocio Hernandez PLT 360 103/ul Normal 150-[address] [facility] Comment on above: Performed By: #### C BC #### [facility] [address] [place] [address] Dr. Rocio Hernandez RBC 4.79 106/ul Normal 4.20-5.[address] [facility] Comment on above: Performed By: #### C BC #### [facility] [address] [place] [address] Dr. Rocio Hernandez WBC 5.9 103/ul Normal 4.0-11.0 [facility] Comment on above: Performed By: #### C BC #### [facility] [address] [place] [address] [address] Rocio Hernandez FREE T3on 01-12-2023 FREE T3 2.31 pg/mlL Normal 2.18-3.98 [facility] Comment on above: Performed By: #### T SH, CMP, LIPID, FT3 ####[facility] [id number] [place] [address]DrClem Hernandez FREE T4on 01-12-2023 Free T4 [Mass/Vol] 1.21 ng/dL Normal 0.76-1.46 [facility] Comment on above: Performed By: #### B 12FOL, FT4 #### [facility] [address] [place] [address] [address] Rocio Hernandez GLYCOHEMOGLOBIN A1Con 2022 ADA RECOMMENDATION SEE BELOW Normal [facility] Comment on above: Result Comment: ADA RECOMMENDED LIMIT 4.0 - 6.0 ADA THERAPEUTIC TARGET < 7.0 ACTION SUGGESTED > 7.0 Performed By: #### A 1C ####[facility] [address] [place] [address]DrClem Hernandez Glucose [Mass/Vol] 123 mg/dL Normal [facility] Comment on above: Performed By: #### A 1C ####[facility] [id number] [place] [id number] Hernandez HbA1c (Bld) [Mass fraction] 5.9 % Normal 4.5-6.2 [facility] Comment on above: Performed By: #### A 1C ####[facility] [address] [place] [address]DrClem Hernandez LIPID PROFILEon 01-12-2023 CHOL-HDL RATIO NORM SEE BELOW Normal [facility] Comment on above: Result Comment: 3.3 - 4.4 LOW RISK 4.4 - 7.1 AVERAGE RISK 7.1 - 11.0 MODERATE RISK >11.0 HIGH RISK Performed By: #### T SH, CMP, LIPID, FT3 #### [facility] [address] [place] [address] [address] Rocio Hernandez Cholesterol [Mass/Vol] 203 mg/dL Critically high <=200 [facility] Comment on above: Performed By: #### T SH, CMP, LIPID, FT3 #### [facility] [address] [place] [address] [address] Rocio Hernandez Cholesterol in HDL [Mass/Vol] 89 mg/dL Critically high 40-[address] [facility] Comment on above: Performed By: #### T SH, CMP, LIPID, FT3 #### [facility] [address] [place] [address] [address] Rocio Hernandez Cholesterol in LDL [Mass/Vol] 87.8 mg/dL Normal [facility] Comment on above: Performed By: #### T SH, CMP, LIPID, FT3 #### [facility] [address] [place] [address] [address] Rocio Hernandez Cholesterol.total/C holesterol in HDL [Mass ratio] 2.3 {ratio} Normal [facility] Comment on above: Performed By: #### T SH, CMP, LIPID, FT3 #### [facility] [address] [place] [address] Dr. Rocio Hernandez HDL NORMAL > or = 60 mg/dl - LO W CARDIOVASCULAR RISK <40 mg/dl - HIGH CARDIOVASCULAR RISK Normal [facility] Comment on above: Performed By: #### T SH, CMP, LIPID, FT3 #### [facility] [address] [place] [address] [address] Rocio Hernandez LDL CALC NORMAL SEE BELOW Normal [facility] Comment on above: Result Comment: <100 mg/dl OPTIMAL 100 - 129 mg/dl NEAR OR ABOVE OPTIMAL 130 - 159 mg/dl BORDERLINE HIGH 160 - 189 mg/dl HIGH >190 mg/dl VERY HIGH Performed By: #### T SH, CMP, LIPID, FT3 #### [facility] [address] [place] [address] [address] Rocio Hernandez Triglyceride [Mass/Vol] 131 mg/dL Normal <=[address] [facility] Comment on above: Performed By: #### T SH, CMP, LIPID, FT3 #### [facility] [address] [place] [address] [address] Rocio Hernandez VLDL CALC 26.2 mg/dL Normal [facility] Comment on above: Performed By: #### T SH, CMP, LIPID, FT3 #### [facility] [address] [place] [address] [address] Rocio Hernandez MICROALB CREAT RATIO RANDOMo n 01-12-2023 mALB <1.3 Normal <=30.0 [facility] Comment on above: Performed By: #### M CRR ####[facility] [address] [place] [id number]. Rocio Hernandez MALB CR RATIO 13.6 mg/g Normal 0.0-29.9 [facility] Comment on above: Performed By: #### M CRR ####[facility] [id number] [place] [address]Dr. Rocio Hernandez MALB CR RATIO RANGE SEE BELOW Normal [facility] Comment on above: Result Comment: NO M ICROALBUMINURIA 0-29 MG/G CLINICAL MICROALBUMINURIA 30-300 MG/G MACROALBUMINURIA >300 MG/G Performed By: #### M CRR ####[facility] [address] [place] [id number]. Rocio Hernandez URINE CREAT 95.84 mg/dL Normal 20.00-300.00 [facility] Comment on above: Performed By: #### M CRR ####[facility] [id number] [place] [id number]. Rocio Hernandez PROF 14(COMP METB)on 023 Albumin [Mass/Vol] 3.8 g/dL Normal 3.4-5.0 [facility] Comment on above: Performed By: #### T SH, CMP, LIPID, FT3 #### [facility] [address] [place] [address] [address] Rocio Hernandez Albumin/Globulin [Mass ratio] 0.9 {ratio} Normal [facility] Comment on above: Performed By: #### T SH, CMP, LIPID, FT3 #### [facility] [address] [place] [address] [address] Rocio Hernandez ALP [Catalytic activity/Vol] 111 U/L Normal 46-116 [facility] Comment on above: Performed By: #### T SH, CMP, LIPID, FT3 #### [facility] [address] [place] [address] [address] Rocio Hernandez ALT [Catalytic activity/Vol] 42 U/L Normal 14-59 [facility] Comment on above: Performed By: #### T SH, CMP, LIPID, FT3 #### [facility] [address] [place] [address] [address] Rocio Hernandez Anion gap [Moles/Vol] 10.8 mmol/L Normal [facility] Comment on above: Performed By: #### T SH, CMP, LIPID, FT3 #### [facility] [address] [place] [address] Dr. Rocio Hernandez AST [Catalytic activity/Vol] 24 U/L Normal 15-37 [facility] Comment on above: Performed By: #### T SH, CMP, LIPID, FT3 #### [facility] [address] [place] [address] Dr. Rocio Hernandez Bilirubin [Mass/Vol] 0.4 mg/dL Normal 0.2-1.0 [facility] Comment on above: Performed By: #### T SH, CMP, LIPID, FT3 #### [facility] [address] [place] [address] [address] Rocio Hernandez Calcium [Mass/Vol] 9.6 mg/dL Normal 8.5-10.1 [facility] Comment on above: Performed By: #### T SH, CMP, LIPID, FT3 #### [facility] [address] [place] [address] [address] Rocio Hernandez Chloride [Moles/Vol] 93 mmol/L Critically low 98-107 [facility] Comment on above: Performed By: #### T SH, CMP, LIPID, FT3 #### [facility] [address] [place] [address] [address] Rocio Hernandez CO2 [Moles/Vol] 31.2 mmol/L Normal 21.0-32.0 [facility] Comment on above: Performed By: #### T SH, CMP, LIPID, FT3 #### [facility] [address] [place] [address] [address] Rocio Hernandez Creatinine [Mass/Vol] 1.02 mg/dL Normal 0.55-1.02 [facility] Comment on above: Performed By: #### T SH, CMP, LIPID, FT3 #### [facility] [address] [place] [address] Dr. Rocio Hernandez EGFR-AF TRISTANIAN >60 Normal >=60 [facility] Comment on above: Performed By: #### T SH, CMP, LIPID, FT3 #### [facility] [address] [place] [address] Dr. Rocio Hernandez EGFR-NON AF TRISTANIAN 55 mL/min/1.73m2 Critically low >=[address] [facility] Comment on above: Performed By: #### T SH, CMP, LIPID, FT3 #### [facility] [address] [place] [address] Dr. Rocio Hernandez Globulin (S) [Mass/Vol] 4.4 g/dL Normal [facility] Comment on above: Performed By: #### T SH, CMP, LIPID, FT3 #### [facility] [address] [place] [address] Dr. Rocio Hernandez Glucose [Mass/Vol] 102 mg/dL Normal 74-106 [facility] Comment on above: Performed By: #### T SH, CMP, LIPID, FT3 #### [facility] [address] [place] [address] Dr. Rocio Hernnadez Potassium [Moles/Vol] 4.0 mmol/L Normal 3.5-5.[address] [facility] Comment on above: Performed By: #### T SH, CMP, LIPID, FT3 #### [facility] [address] [place] [address] Dr. Rocio Hernnadez Protein [Mass/Vol] 8.2 g/dL Normal 6.4-8.2 The [facility] Comment on above: Performed By: #### T SH, CMP, LIPID, FT3 #### [facility] [address] [address] [address] Rocio Hernandez Sodium [Moles/Vol] 131 mmol/L Critically low 136-145 [facility] Comment on above: Performed By: #### T SH, CMP, LIPID, FT3 #### [facility] [address] [place] [address] Dr. Rocio Hernandez Urea nitrogen [Mass/Vol] 6.0 mg/dL Critically low 7.0-18.0 [facility] Comment on above: Performed By: #### T SH, CMP, LIPID, FT3 #### [facility] [address] [address] [address] Rocio Hernandez Urea nitrogen/Creatinine [Mass ratio] 5.9 mg/mg Normal [facility] Comment on above: Performed By: #### T SH, CMP, LIPID, FT3 #### [facility] [address] [place] [address] Dr. Rocio Hernandez TSHon 01-12-2023 TSH 5.647 uIU/mL Critically high 0.358-3.740 [facility] Comment on above: Performed By: #### T SH, CMP, LIPID, FT3 #### [facility] [address] [place] [address] Dr. Rocio Hernandez VIT B12 AND FOLATEon 023 Cobalamin (Vitamin B12) [Mass/Vol] 1189.0 pg/mL Critically high 193.0-986.0 [facility] Comment on above: Performed By: #### B 12FOL, FT4 #### [facility] [address] [place] [address] Dr. Rocio Hernandez FOLATE 27.30 ng/mL Normal 8.60-58.90 [facility] Comment on above: Performed By: #### B 12FOL, FT4 #### [facility] [address] [place] [address] Dr. Rocio Hernandez MG MAMM SCREEN 3D TANIA CADon 12-19-2022 MG MAMM SCREEN 3D TANIA CAD Patient: MADAN PERRY Exam Date: 12/19/2022 : 1960 Gender:F Ordering : DR [place] D.O. Admission #: [id number] Family : Order #: [id number] CLICK HERE TO VIEW EXAM RADIOLOGY REPORT [...] by: RODRI FLORES Date: 2022-12-19 10:01 Normal [facility] FREE T3on 03-22-2022 FREE T3 2.43 pg/mlL Normal 2.18-3.[address] [facility] Comment on above: Performed By: #### B MP, FT3, TSH ####[facility] [address] [address]Dr. Rocio Hernandez FREE T4on 03-22-2022 Free T4 [Mass/Vol] 1.43 ng/dL Normal 0.76-1.46 [facility] Comment on above: Performed By: #### F T4 ####[facility] [address] [address]Dr. Rocio Hernandez PROF CHEM 8 (BAS METB)on Anion gap [Moles/Vol] 10.2 mmol/L Normal [facility] Comment on above: Performed By: #### B MP, FT3, TSH ####[facility] [address] [address]Dr. Rocio Hernandez Calcium [Mass/Vol] 8.8 mg/dL Normal 8.5-10.1 [facility] Comment on above: Performed By: #### B MP, FT3, TSH ####[facility] [address] [address]Dr. Rocio Hernandez Chloride [Moles/Vol] 104 mmol/L Normal 98-[address] [facility] Comment on above: Performed By: #### B MP, FT3, TSH ####[facility] [address] [address]Dr. Rocio Hernandez CO2 [Moles/Vol] 31.7 mmol/L Normal 21.0-32.0 The [facility] Comment on above: Performed By: #### B MP, FT3, TSH ####[facility] [address] [address]Dr. Rocio Hernandez Creatinine [Mass/Vol] 0.96 mg/dL Normal 0.55-1.02 [facility] Comment on above: Performed By: #### B MP, FT3, TSH ####[facility] [address] [address]Dr. Kerendereck Hernandez EGFR-AF TRISTANIAN >60 Normal >=60 The [facility] Comment on above: Performed By: #### B MP, FT3, TSH ####[facility] [address] [address]Dr. Kerendereck David EGFR-NON AF TRISTANIAN 59 mL/min/1.73m2 Critically low >=60 [facility] Comment on above: Performed By: #### B MP, FT3, TSH ####[facility] [address] [address]Dr. Rocio Hernandez Glucose [Mass/Vol] 110 mg/dL Critically high 74-106 T [facility] Comment on above: Performed By: #### B MP, FT3, TSH ####[facility] [address] [address]Dr. Rocio Hernandez Potassium [Moles/Vol] 2.9 mmol/L Critically low 3.5-5.1 [facility] Comment on above: Result Comment: TEST REPEATED CRITICAL VALUE VERIFIED Performed By: #### B MP, FT3, TSH ####[facility] [address] [address]Dr. Rocio Hernandez Sodium [Moles/Vol] 141 mmol/L Normal 136-145 [facility] Comment on above: Performed By: #### B MP, FT3, TSH ####[facility] [address] [address]Dr. Rocio Hernandez Urea nitrogen [Mass/Vol] 12.0 mg/dL Normal 7.0-18.0 [facility] Comment on above: Performed By: #### B MP, FT3, TSH ####[facility] [address] [address]Dr. Rocio Hernandez Urea nitrogen/Creatinine [Mass ratio] 12.5 mg/mg Normal [facility] Comment on above: Performed By: #### B MP, FT3, TSH ####[facility] [address] [place], [place] [address]Sd. Rocio Hernandez TSHon 03-22-2022 TSH 0.137 uIU/mL Critically low 0.358-3.740 [facility] Comment on above: Performed By: #### B MP, FT3, TSH ####[facility] [address] [place], [place] [address]Xv. Rocio Hernandez Patient Letter FTMCon 2020 Patient Letter FT (Inserted Image. Wilda ble to display) May 26, 2021 MADAN PERRY [address] [facility] [address] [place] [address] MADAN PERRY 1960 Dear Madan, This is a SECOND ATTEMPT to remind you that you are due for an appointment with [facility]. Please contact our office at [phone] to schedule an appointment at your earliest convenience. Thank you, [facility] Reminderson 05-26-2021 Reminders - From: Jane Onofre To: GINA - Reminders/Recalls; Sent: 01/18/2021 12:33:31 EDT Show up: 04/25/2021 12:33:00 EDT Subject: Ambulatory Reminder Due Date/Time: 06/09/2021 12:33:00 EDT Reminder/Recall sara peace 5 year colon 06/09/2021 first recall letter second rcall letter [facility] Patient Letter FTMCon 2020 Patient Letter FT (Inserted Image. Wilda ble to display) May 05, 2021 MADAN PERRY [address] [facility] [address] [place] [address] MADAN PERRY 1960 Dear Madan, This is a reminder that you are due for an appointment with [facility]. Please contact our office at [phone] to schedule an appointment at your earliest convenience. Thank you, [facility] Vital Signs Date Time Vital Sign Value Performing Clinician Facility 05-09-2022 16:35-0400 Body height 161.29 cm Adilia Mederos Other [facility] Other 05-09-2022 16:35-0400 Body mass index (BMI) [Ratio] 25.63 kg/m2 Adilia Mederos Other [facility] Other 05-09-2022 16:35-0400 Body temperature 97.8 [degF] Adilia Mederos Other [facility] Other 05-09-2022 16:35-0400 Body weight 66.68 kg Adilia Mederos Other [facility] Other 05-09-2022 16:35-0400 Diastolic blood pressure 79 mm[Hg] Adilia Cardenasault Other [facility] Other 05-09-2022 16:35-0400 Respiratory rate 18 /min Adilia Mederos Other [facility] Other 05-09-2022 16:35-0400 SaO2% (BldA) [Mass fraction] 98 % Adilia Mederos Other [facility] Other 05-09-2022 16:35-0400 Systolic blood pressure 136 mm[Hg] Adilia Cardenasault Other [facility] Other 07-21-2021 16:05-0400 Body height 161.29 cm Lilian Ferreira Other [facility] Other 07-21-2021 16:05-0400 Body mass index (BMI) [Ratio] 26.5 kg/m2 Lilian Ferreira Other [facility] Other 07-21-2021 16:05-0400 Body temperature 96.2 [degF] Lilian Ferreira Other [facility] Other 07-21-2021 16:05-0400 Body weight 68.95 kg Lilian Ferreira Other [facility] Other 07-21-2021 16:05-0400 Diastolic blood pressure 95 mm[Hg] Lilian Ferreira Other [facility] Other 07-21-2021 16:05-0400 Respiratory rate 18 /min Lilian Ferreira Other [facility] Other 07-21-2021 16:05-0400 SaO2% (BldA) [Mass fraction] 99 % Lilian Ferreira Other [facility] Other 07-21-2021 16:05-0400 Systolic blood pressure 132 mm[Hg] Lilian Ferreira Other [facility] Other 06-22-2021 14:20-0400 Body height 161.29 cm Adilia Cardenasault Other [facility] Other 06-22-2021 14:20-0400 Body mass index (BMI) [Ratio] 25.98 kg/m2 Adilia Rosa M Other [facility] Other 06-22-2021 14:20-0400 Body temperature 96.4 [degF] Adilia Rosa M Other [facility] Other 06-22-2021 14:20-0400 Body weight 67.59 kg Adilia Mederos Other [facility] Other 06-22-2021 14:20-0400 Diastolic blood pressure Adilia Mederos Other [facility] Other 06-22-2021 14:20-0400 Respiratory rate 18 /min Adilia Mederos Other [facility] Other 06-22-2021 14:20-0400 SaO2% (BldA) [Mass fraction] 98 % Adilia Mederos Other [facility] Other 06-22-2021 14:20-0400 Systolic blood pressure 111 mm[Hg] Adilia Mederos Other [facility] Other Encounters Encounter Date Encounter Type Care Provider Facility Start: 10-09-2023 End: 10-10-2023 ambulatory Meet Harp MD Facility: [facility] Start: 08-25-2023 End: 08-25-2023 ambulatory ALIZA AGUILAR Facility:[facility] Start: 08-25-2023 End: 08-25-2023 Office outpatient visit 15 minutes Aliza Aguilar MD Work Phone: [address] [facility] Comment on above: Hand arthritis (Prim maurisio Dx) Start: 08-21-2023 End: 08-22-2023 ambulatory Meet Harp MD Facility: [facility] Start: 08-19-2023 Letter encounter Yesy Covarrubias OT Work Phone: [facility] Start: 07-31-2023 End: 08-01-2023 ambulatory Meet Harp MD Facility: [facility] Start: 07-24-2023 End: 07-25-2023 ambulatory Meet Harp MD Facility: [facility] Start: 07-20-2023 End: 07-20-2023 ambulatory Aliza Aguilar Facility:[facility] Start: 07-20-2023 End: 07-20-2023 ambulatory DO [place] Work Phone: [facility] Work Phone: Start: 07-20-2023 End: 07-20-2023 Patient encounter procedure DO [place] Work Phone: [facility] [address] Work Phone: Start: 07-10-2023 End: 07-11-2023 ambulatory Meet Harp MD [place] Start: 06-16-2023 End: 06-17-2023 ambulatory [facility]ER [facility] Start: 06-16-2023 End: 06-16-2023 Office outpatient visit 25 minutes Aliza Aguilar MD Work Phone: [address] [facility] Comment on above: Left hand pain (Prim maurisio Dx) Start: 06-16-2023 End: 06-16-2023 Subsequent hospital visit by physician [facility]150[facility] Op Op X-Ray 1 Work Phone: [address] [facility] Comment on above: Left hand pain Start: 02-07-2023 End: 02-08-[address] [place] Facility:[facility] Start: 01-27-2023 End: 01-28-[address] [place] Facility:[facility] Start: 01-23-2023 End: 02-22-2023 ambulatory SHAIKH Eduardo ROSS Facility:[facility] Start: 01-16-2023 Encounter for genera l adult medical examination without abnormal findings DR [place] [facility] Start: 01-12-2023 End: 01-13-[address] [place] Facility:[facility] Start: 01-12-2023 End: 01-13-2023 Encounter for general adult medical examination without abnormal findings DR [place] Facility:[facility] Start: 12-26-2022 End: 01-20-2023 ambulatory DUARTE H FAWWAD Facility:[facility] Start: 12-19-2022 End: 12-20-[address] [...] 05-09-2022 End: 05-09-2022 ambulatory Adilia Mederos Other [facility] Other Start: 05-09-2022 Office outpatient vi sit 15 minutes Adilia Mederos [facility] Start: 05-04-2022 End: 05-05-[address] [place] Facility:[facility] Start: 04-25-2022 End: 05-25-2022 ambulatory DUARTE H FADavidWAAbdifatah Facility:[facility] Start: 03-25-2022 End: 04-22-2022 ambulatory DUARTE H FAWWAD Facility:[facility] Start: 03-23-[address] [place] Fac ility:[facility] Start: 03-22-2022 End: 03-23-[address] [place] Facility:[facility] Start: 07-21-2021 Patient encounter procedure Lilian Ferreira [facility] Start: 06-22-2021 Office outpatient vi sit 15 minutes Adilialeonid Mederos [facility] Procedures Date Procedure Procedure Detail Performing Clinician Start: 08-25-2023 Injection 1 tendon sheath/ligament aponeurosis Aliza Aguilar MD Work Phone: Start: 06-16-2023 Radex hand minimum 3 views Aliza Aguilar MD Work Phone: Plan of Treatment Date Care Activity Detail Author Start: 06-04-2028 Tetanus vaccination Tetanus (T d or Tdap) Booster [facility] Start: 01-13-2028 Cholesterol [Mass/volume] in Serum or Plasma Cholesterol [facility] Start: 08-25-2023 End: 08-25-2023 Patient encounter procedure 08/25/2023 11:30 AM EST Office Visit [address] [facility] [address] [place] [address] Aliza Aguilar MD [address] [place] [phone] [facility] Start: 07-20-2023 XR pre/post mri xray XR pre/post mri xray [facility] Start: 07-20-2023 [facility] Start: 07-20-2023 MR Wrist - left WO contrast [facility] Start: 07-20-2023 MRI of left wrist MR wrist LT wo con [facility] Start: 07-20-2023 MR Hand - left WO contrast [facility] Start: 07-20-2023 MRI of left hand MR hand LT wo con [facility] Start: 06-25-2023 Influenza vaccination Influenza Vacc ine (#1) [facility] Start: 06-16-2023 End: 06-16-2024 MR Wrist - left WO contrast MR WRIST LEFT W/O Imaging Routine Left hand pain Expected: 06/16/2023, Expires: 06/16/2024 [employer] Work Phone: Comment on above: Expected: 06/16/2023 , Expires: 06/16/2024 Start: 05-26-2023 COVID-19 Vaccine ( season) COVID-19 Vaccine ( season) [facility] Start: 05-26-2023 Influenza vaccination Influenza Vacc ine (#1) [facility] Start: 06-25-2022 Influenza vaccination Influenza Vacc ine (#1) [facility] Start: 06-08-2022 COVID-19 Vaccine (4 - Booster for Pfizer series) COVID-19 Vaccine (4 - Booster for Pfizer series) [facility] Start: 2019 RSV vaccine (optiona l 60+ years) RSV vaccine (optional 60+ years) [facility] Start: 09-25-2014 Annual wellness visit Annual [facility] Start: 2009 Measurement of occul t blood in single stool specimen FIT [facility] Start: 2009 Screening for malign ant neoplasm of breast Mammography [facility] Start: 2009 Screening for malign ant neoplasm of colon CRC Screening [facility] Start: 02-11-2004 Cholesterol [Mass/volume] in Serum or Plasma [facility]olesterol [facility] Start: 02-11-2004 Screening for malign ant neoplasm of colon [facility] Start: 1999 Screening for malign ant neoplasm of breast Mammography [facility] Start: 02-11-1980 Screening for malign ant neoplasm of cervix Pap Smear [facility] Start: 1977 Hepatitis C screening Hepatitis C An tibody [facility] Start: 1974 HIV screening HIV Test [facility] Start: 1959 COVID-19 Vaccine ( formulation) COVID-19 Vaccine ( formulation) [facility] Start: 1960 Screening for malign ant neoplasm of colon Colonoscopy [facility] Immunizations Immunization Date Immunization Notes Care Provider Fa [facility] 08-11-2023 influenza, injectabl e, quadrivalent, preservative free Aliza Aguilar MD Work Phone: [facility] 08-11-2023 Respiratory syncytia l virus (RSV), vaccine, bivalent, protein subunit RSV prefusion F, diluent reconstituted, 0.5 mL, preservative free (FLI=577) Aliza Aguilar MD Work Phone: [facility] 06-18-2022 influenza, injectabl e, quadrivalent, preservative free Aliza Aguilar MD Work Phone: [facility] 06-18-2022 influenza virus vacc ine, unspecified formulation Aliza Aguilar MD Work Phone: [facility] 02-05-2022 Pfizer Monovalent (1 2+ yrs) SARS-COV-2 (COVID-19) vaccine, mRNA, spike protein, LNP, pres. free, 30 mcg/0.3mL dose, betito-sucrose (BTC=167) Aliza Aguilar MD Work Phone: [facility] 08-11-2021 influenza, injectabl e, quadrivalent, preservative free Yesy Marci OT Work Phone: [facility] 08-11-2021 influenza virus vacc ine, unspecified formulation Yesy Marci OT Work Phone: [facility] 07-24-2020 zoster vaccine recombinant K athryn Marci OT Work Phone: [facility] 07-11-2020 Influenza, injectabl e, Madin Crawford Canine Kidney, preservative free, quadrivalent Yesy Marci OT Work Phone: [facility] 04-18-2020 zoster vaccine recombinant K athryn Marci OT Work Phone: [facility] 08-28-2019 Influenza, injectabl e, Madin Zakia Canine Kidney, preservative free, quadrivalent Yesy Marci OT Work Phone: [facility] 07-01-2019 influenza, high dose seasonal, preservative-free Yesy Marci OT Work Phone: [facility] 06-25-2019 pneumococcal polysac charide vaccine, 23 valent Yesy Marci OT Work Phone: [facility] 07-06-2018 influenza, injectabl e, quadrivalent, contains preservative Yesy Marci OT Work Phone: [facility] 06-04-2018 tetanus toxoid, redu karen diphtheria toxoid, and acellular pertussis vaccine, adsorbed Yesy Marci OT Work Phone: [facility] 08-19-2017 influenza, injectabl e, quadrivalent, preservative free Yesy Marci OT Work Phone: [facility] 08-09-2017 influenza, injectabl e, quadrivalent, contains preservative Yesy Marci OT Work Phone: [facility] 08-01-2016 influenza, injectabl e, quadrivalent, preservative free Yesy Marci OT Work Phone: [facility] 07-11-2015 influenza, injectabl e, madin zakia canine kidney, preservative free Yesy Marci OT Work Phone: [facility] 07-11-2015 pneumococcal conjuga te vaccine, 13 valent Yesy Marci OT Work Phone: [facility] 08-13-2009 novel influenza-H1N1 -09, preservative-free, injectable Yesy Marci OT Work Phone: [facility] 07-17-2009 influenza virus vacc ine, unspecified formulation Yesy Marci OT Work Phone: [facility] 08-15-2008 influenza virus vacc ine, unspecified formulation Yesy Marci OT Work Phone: [facility] Payers Date Payer Category Payer Self-pay [id number] 2018 Unknown [id number] 2013 Medicare [id number] [id number] [id number] 1959 [facility] [id number] [id number] 1959 Medicare [id number] 2.16.840.1.376471.19 1959 Unknown [id number] 2.16.840.1.550404.3.579.2.593 1959 Unknown [id number] 2.16.840.1.431373.3.579.2.593 1959 Unknown [id number] 2.16.840.1.041869.3.579.2.593 1959 Unknown [id number] 2.16.840.1.759221.3.579.2.593 1959 Unknown [id number] 2.16.840.1.801757.3.579.2.59 1959 Unknown [id number] 2.16.840.1.704899.3.579.2.59 1959 Unknown [id number] 2.16.840.1.082188.3.579.2.59 1959 Unknown [id number] 2.16.840.1.211188.3.579.2.593 1959 Unknown [id number] 2.16.840.1.012685.3.579.2.593 1959 Unknown [id number] 2.16.840.1.450144.3.579.2.593 1959 Unknown [id number] 2.16.840.1.807735.3.579.2.593 1959 Unknown [id number] 2.16.840.1.502192.3.579.2.593 1959 Unknown [id number] 2.16.840.1.921655.3.579.2.593 1959 Unknown [id number] 2.16.840.1.291137.3.579.2.593 1959 Unknown [id number] 2.16.840.1.163354.3.579.2.593 1959 Unknown [id number] 2.16.840.1.411987.3.579.2.593 1959 Unknown [id number] 2.16.840.1.092109.3.579.2.593 1959 Unknown [id number] 2.16.840.1.162695.3.579.2.593 1959 Unknown [id number] 2.16.840.1.283585.3.579.2.593 1959 Unknown [id number] 2.16.840.1.393366.3.579.2.593 1959 Unknown [id number] 2.16.840.1.748620.3.579.2.732 1959 Unknown [id number] 2.16840.1.481563.3.579.2.732 1959 Unknown [id number] 2.16840.1.588081.3.579.2.732 1959 Unknown [id number] 2.840.1.506059.3.579.2.196 1959 Unknown [id number] 2.16840.1.645195.3.579.2.196 1959 Unknown [id number] 2.16840.1.911910.3.579.2.196 1959 Unknown [id number] 2.16840.1.144203.3.579.2.196 1959 Unknown [id number] 2.16840.1.987848.3.579.2.196 Medicare Medicare Nonpatient [id number] Unknown [id number] 2.16.840.1.532201.3.579.2.531 Social History Date Type Detail Facility Unknown if ever smoked [facility] [employer] Other Sex Assigned At [facility] [employer] Other Start: 05-31-2019 Tobacco smoking stat [facility]oker [facility] use [facility] Start: 05-31-2019 Tobacco use and exposure Smokeless tobacco non-user [facility] Start: 04-07-2020 Alcohol intake Lifetime non-d han (finding) [facility] Start: 07-09-2019 History SDOH Alcohol Frequency 1 [facility] Start: 1960 Sex Assigned At Not on file [facility] Start: 1960 Sex Assigned At Female [facility] Medical Equipment Procedure Code Equipment Code Equipment Origin al Text Equipment Identifier Dates [place] Suture Mi [employer] Ea1 [id number] - [id number] Start: 07-22-2019 Clinical Notes 06-22-2021 to 08-25-2023 Milady Carrasco RN - 08/25/2023 11:33 AM Aliza Mendoza MD - 08/25/2023 11:28 AM ESTAddendum Note - Aliza Aguilar MD - 06/16/2023 11:34 AM EDTAliza Aguilar MD - 06/16/2023 11:20 AM EDT Note Date & Type Note Facility 08-25-2023 History of Presen t illness Narrative CC: Left hand and wrist pain Follow up after MRI done at [facility]. Patient Office Note or Post OP Note Name:Madan Perry Date: 08/25/2023 CC: left wrist pain at [facility] area No chief complaint on file. [...] this patient. Aliza Aguilar MD Injection Procedure.[facility] 08/25/2023 [id number] Madan Perry The patient requested an injection [...] a dressing applied. documented in this encounter [facility] 06-16-2023 Note Addended by: ALIZA AGUILAR on: 06/16/2023 11:34 AM Modules accepted: Orders [facility] 06-16-2023 Miscellaneous Notes Addended by: ALIZA AGUILAR on: 06/16/2023 11:34 AM Modules accepted: Orders documented in this encounter [facility] 06-16-2023 History of Presen t illness Narrative [...] continues on coumadin. documented in this encounter [facility] 05-09-2022 Evaluation note Encounter Date Diagnosis Assessment [...] Xray that was ordered outpatient by PCP [facility] [facility] Other 08-10-2022 NotePROCEDURE: XR FOOT RT MIN 3 VIEWS COMPARISON: None. HISTORY: Pain in right foot FINDINGS: BONES:No fracture, acute abnormality, or significant arthropathy. Mild enthesopathic spurring of the calcaneus at the Achilles insertion SOFT TISSUES:Negative. No visible soft tissue swelling. EFFUSION:None visible. OTHER: Negative. IMPRESSION: No acute abnormality Electronically authenticated by: MARTINEZ HARVEY Date: 2022-05-04 16:22[facility]10-27-2021 Evaluation note* Encounter Date Diagnosis Assessment Notes Treatment Notes Treatment Clinical Notes Jun, Swelling of left elbow (ICD-10 - M25.422) Jun, Other Patient refe rred to the ER due to swelling, ecchymosis, pain of her left elbow with no known injury. It is felt the patient needs blood work to evaluate [employer] [facility] Other 09-28-2021 Evaluation note* Encounter Date Diagnosis Assessment Notes Treatment Notes Treatment Clinical Notes May, Bee sting, undetermined intent, initial encounter (ICD-10 - T63.444A) May continue Xyzal and Benadryl as directed. [employer] [facility] Other Evaluation note* Diagnosis Left hand pain- Primary Pain in limb Left hand pain Pain in limb [facility] Left [facility] pain Pain in limb [facility] Work [facility]: Evaluation note* Diagnosis Hand arthritis- [...] second t roseann Hospitalization History see above [employer] Other Summary Purpose Family History No Family [...] Diagnoses Left hand pain Aliza Aguilar MD [facility] [address] [place] [address] Referral ID Status Reason Start Date Expiration Date Visits Requested Visits Authorized [id number] Authorized Patient Preference 06/16/2023 06/16/2024 3 3 Comments Near home, [place], [place] Specialty Diagnoses / Procedures Referred By Contac t Referred To Contact Radiology Diagnoses Left hand pain Procedures MR WRIST LEFT W/O Aliza Aguilar MD [address], [place] [facility] MRI [address] [place] [address] Referral ID Status Reason Start Date Expiration Date V isits Requested Visits Authorized [id number] Authorized 06/16/2023 06/15/2024 1 1 Specialty Diagnoses / Procedures Referred By Contac t Referred To Contact Radiology Diagnoses Left hand pain Procedures XR HAND LEFT 3 VIEWS [facility] [address] [place], [place] [id number] [facility] DIAGNOSTIC RADIOLOGY [address] [place] [address] [place] [address] Referral ID Status Reason Start Date Expiration Date Visits Re quested Visits Authorized [id number] Closed 06/16/2023 06/15/2024 1 1 Chief Complaint and Reason for Visit Chief Complaint median nerve karel krista Additional Source Comments INFORMATION SOURCE (unrecogn ized section and content) DATE CREATED AUTHOR 05/27/2021 [facility] DATE CREATED AUTHOR AUTHOR'S ORGANIZ ATION 03/03/2023 [facility] DATE CREATED AUTHOR AUTHOR'S ORGANIZ ATION 07/30/2023 [facility] DATE CREATED AUTHOR AUTHOR'S ORGANIZ ATION 08/28/2023 [facility] DATE CREATED AUTHOR AUTHOR'S ORGANIZ ATION 09/03/2023 [facility] DATE CREATED AUTHOR AUTHOR'S ORGANIZ ATION 10/18/2023 [facility] REASON FOR VISIT (unrecogniz ed section and content) Reason Comments Hand/finger symptoms Specialty Diagnoses / Procedures Referred By Contac t Referred To Contact Radiology Diagnoses Left hand pain Procedures XR HAND LEFT 3 VIEWS [facility] [address] [place], [place] [id number] [facility] DIAGNOSTIC RADIOLOGY [address] [facility] [place] [address] Referral ID Status Reason Start Date Expiration Date Visits Re quested Visits Authorized [id number] Closed 06/16/2023 06/15/2024 1 1 Reason Comments Hand/finger symptoms Care Teams (unrecognized sec tion and content) [employer] Operator Relationship Specialty Start Date End Date Yesy Covarrubias OT [address] [facility] [place] [address] Occupational Therapist Occupational Therapy 06/30/20 Aliza Aguilar MD [address] [place] [address] Physician Orthopaedic Hand Service 06/30/20 [employer] Operator Relationship Specialty Start Date End Date Yesy Covarrubias OT [address] [facility] [place] [address] Occupational Therapist Occupational Therapy 06/30/20 Aliza Aguilar MD [address] [place] [address] Physician Orthopaedic Hand Service 06/30/20 [employer]ensive [employer] Control Systems Operator Relationship Specialty Start Date End Date Yesy Covarrubias OT [address] [place] [address] Occupational Therapist Occupational Therapy 06/30/20 Aliza Aguilar MD [address] [place] [address] Physician Orthopaedic Hand Service 06/30/20 Team Status: Active Member Role Status Dates [place] DO Primary Care Provider Active Team Status: Inactive Member Role Status Dates [place] DO Primary Care Provider Active Aliza Aguilar Attending Provider Active [employer] Operator Relationship Specialty Start Date End Date Yesy Covarrubias OT [address] [facility] [place] [address] Occupational Therapist Occupational Therapy 06/30/20 Aliza Aguilar MD [address] [place] [address] Physician Orthopaedic Hand Service 06/30/20 [employer] Operator Relationship Specialty Start Date End Date Yesy Covarrubias OT [address] [place] [address] Occupational Therapist Occupational Therapy 06/30/20 Aliza Aguilar MD [address] [facility] [place] [address] Physician Orthopaedic Hand Service 06/30/20 Goals (unrecognized [...] BE BASED ON THE PRIMARY CLINICAL RECORDS. [employer] provides no warranty or guarantee of the accuracy or completeness of information in this document.
--- NOTE | 2023-10-19 13:51 | P.CN_ITS ---
Consult Note: HPI Data of Consult Patient: known to practice within the last 3 years Consult date: 07/24/23 Requesting Physician: Etta Moya NP Primary Care Provider: [place], DO Consult Narrative Reason for consult: midback pain Narrative: 63yof who presents for assessment. persistent mid back pain. mri reviewed previously with Dr Harp, which shows multiple levels of disc bulging and stenosis, worst at t10-11 and t11-12. continues in provider directed home exercise program >6 weeks, with limited benefit. continues norco and flexeril. denies adverse med side effects. Recent bilateral T10/11 and T11/12 TFESIs provided >50% relief for a few hours after the procedure, but no sustained relief. Recently underwent bilateral L1-2 L2-3 facet medial branch block #1 with 80% improvement in pain for 1-2 hours after procedure. REMEDIOS 44% with moderate to severe pain, pain with ADLs, pain interfering with sleep and social life. cc:: CC: Etta Moya NP Review of Systems ROS Narrative A ten point review of systems is negative except as noted above. Status of ROS 10 or more systems reviewed and unremark able except as noted in history and below Musculoskeletal Reports: back pain PFSH PFSH Medical History Presence of vena cava filter ?Z95.828 - Presence of other vascular implants and grafts (ICD-10) Hypertension ?I10 - Essential (primary) hypertension (ICD-10) Osteoarthritis ?M19.90 - Unspecified osteoarthritis, unspecified site (ICD-10) Hypothyroid ?E03.9 - Hypothyroidism, unspecified (ICD-10) Stage 3 chronic kidney disease ?N18.30 - Chronic kidney disease, stage 3 unspecified (ICD-10) Colitis ?K52.9 - Noninfective gastroenteritis and colitis, unspecified (ICD-10) DVT (deep venous thrombosis) ?I82.409 - Acute embolism and thrombosis of unspecified deep veins of unspecified lower extremity (ICD-10) Surgical History History of carpal tunnel release ?Z98.890 - Other specified postprocedural states (ICD-10) History of bladder suspension procedure ?Z98.890 - Other specified postprocedural states (ICD-10) ?Z87.448 - Personal history of other diseases of urinary system (ICD-10) History of hernia repair ?Z98.890 - Other specified postprocedural states (ICD-10) ?Z87.19 - Personal history of other diseases of the digestive system (ICD-10) Hx of cholecystectomy ?Z90.49 - Acquired absence of other specified parts of digestive tract (ICD- 10) H/O colonoscopy ?Z98.890 - Other specified postprocedural states (ICD-10) History of esophagogastroduodenoscopy (EGD) ?Z98.890 - Other specified postprocedural states (ICD-10) History of decompression of ulnar nerve ?Z98.890 - Other specified postprocedural states (ICD-10) History of appendectomy ?Z90.49 - Acquired absence of other specified parts of digestive tract (ICD- 10) History of hysterectomy ?Z90.710 - Acquired absence of both cervix and uterus (ICD-10) Delivery by section History of laparoscopy ?Z98.890 - Other specified postprocedural states (ICD-10) Social History Smoking status: Former smoker Meds Home Medications and Allergies Home Medications Medication Instructions Recorded Confirmed Type acyclovir 400 mg tablet 400 mg PO DAILY 06/16/23 10/09/23 History amitriptyline 100 mg tablet 100 mg PO BEDTIME 06/16/23 10/09/23 History aripiprazole 10 mg tablet 10 mg PO BEDTIME 06/16/23 10/09/23 History atorvastatin 10 mg tablet 10 mg PO QDAY 06/16/23 10/09/23 History biotin 10,000 mcg-keratin 100 mg 1 tab PO QDAY 06/16/23 10/09/23 History tablet (Biotin Plus Keratin) ivhiehnptf-rdaazchdqxnvw-ucxiksvm 1 cap PO Q6H PRN pain 06/16/23 10/09/23 History 50 mg-300 mg-40 mg capsule cholecalciferol (vitamin D3) 50 50 mcg PO DAILY 06/16/23 10/09/23 History mcg (2,000 unit) capsule (Vitamin D3) coenzyme Q10 100 mg capsule (Co 100 mg PO BID 09/22/23 01/15/24 History Q-10) cyanocobalamin (vitamin B-12) 1,000 mcg IM .monthly 06/16/23 10/09/23 History 1,000 mcg/mL injection solution cyclobenzaprine 10 mg tablet 10 mg PO Q12H PRN muscle spasm 06/16/23 10/09/23 History fluticasone propionate 220 2 puff inhalation Q12H 06/16/23 10/09/23 History mcg/actuation HFA aerosol inhaler (Flovent HFA) folic acid 400 mcg tablet 400 mcg PO DAILY 06/16/23 10/09/23 History fremanezumab-vfrm 225 mg/1.5 mL 225 mg subcut .monthly 06/16/23 10/09/23 History subcutaneous auto-injector (Ajovy) hydrochlorothiazide 12.5 mg tablet 12.5 mg PO QDAY 06/16/23 10/09/23 History hydrocodone 5 mg-acetaminophen 325 1 tab PO Q12H PRN pain 06/16/23 10/09/23 History mg tablet hydroxyzine HCl 25 mg tablet 25 mg PO BEDTIME 06/16/23 10/09/23 History levothyroxine 125 mcg tablet 125 mcg PO .every morning 06/16/23 10/09/23 History linaclotide 72 mcg capsule 145 mcg PO QDAY 06/16/23 10/09/23 History (Linzess) lisinopril 5 mg tablet 5 mg PO QDAY 06/16/23 10/09/23 History magnesium 200 mg tablet 400 mg PO DAILY 06/16/23 10/09/23 History melatonin 10 mg capsule 10 mg PO DAILY 06/16/23 10/09/23 History montelukast 10 mg tablet 10 mg PO QDAY 06/16/23 10/09/23 History omeprazole 40 mg capsule,delayed 40 mg PO BID 06/16/23 10/09/23 History release phentermine 37.5 mg tablet 37.5 mg PO QDAY 06/16/23 10/09/23 History potassium chloride 10 mEq 20 meq PO BID 06/16/23 10/09/23 History tablet,extended release(part/cryst) prasterone (dhea) 25 mg capsule 25 mg PO BID 06/16/23 10/09/23 History (DHEA) pseudoephedrine HCl 30 mg tablet 30 mg PO QDAY 06/16/23 10/09/23 History vilazodone 40 mg tablet 40 mg PO QDAY 06/16/23 10/09/23 History vit C 250 mg-vit E 90 mg-zinc 40 1 tab PO BID 06/16/23 10/09/23 History mg-copper 1 pw-xsstwo-bcnhwp capsule (PreserVision AREDS-2) warfarin 1 mg tablet 1 mg PO .qtuesday 06/16/23 10/09/23 History warfarin 2 mg tablet 2 mg PO QDAY 06/16/23 10/09/23 History zinc 50 mg capsule 50 mg PO DAILY 06/16/23 10/09/23 History alprazolam 0.25 mg tablet 0.25 mg PO DAILY PRN anxiety 07/17/23 10/09/23 History aspirin 81 mg tablet,delayed 81 mg PO DAILY 07/17/23 10/09/23 History release (Adult Aspirin Regimen) hydrocortisone 2.5 % topical cream 1 applic topical BID PRN allergic 07/17/23 10/09/23 History reaction meclizine 12.5 mg tablet 12.5 mg PO BID PRN dizziness 07/17/23 10/09/23 History ondansetron HCl 4 mg tablet 4 mg PO Q12H PRN nausea and 07/17/23 10/09/23 History vomiting baclofen 10 mg tablet 10 mg PO Q12H PRN muscle spasm 09/30/23 10/09/23 History pseudoephedrine HCl 30 mg tablet 30 mg PO DAILY 09/30/23 09/30/23 History (Sudafed) Allergies Allergy/AdvReac Type Severity Reaction Status Date / Time erythromycin base AdvReac Severe Verified 10/09/23 09:10 Penicillins AdvReac Severe Anaphylaxis Verified 10/09/23 09:10 cephalexin [From Keflex] AdvReac Intermediate Hives Verified 10/09/23 09:10 doxycycline AdvReac Intermediate Hives Verified 10/09/23 09:10 iodine AdvReac Intermediate Hives Verified 10/09/23 09:10 morphine AdvReac Intermediate Vomiting Verified 10/09/23 09:10 oxycodone [From Percocet] AdvReac Intermediate Vomiting Verified 10/09/23 09:10 ciprofloxacin [From Cipro] AdvReac Mild Hives Verified 10/09/23 09:10 novicane AdvReac Intermediate Migraine Uncoded 10/09/23 09:10 Exam Narrative Exam Narrative: Psych-alert and oriented x 3.? Attentive and appropriate, constitutionally normal, displays normal mood and affect per situation.? There are no obvious deficits in memory, reasoning, or intellect.? Skin-no obvious rashes, bruising, or erythema noted to the patient's area of pain.? Extremities-upper extremities are warm with minimal edema and palpable pulses. Thoracic - tenderness to palpation noted in the thoracic spine and paraspinal musculature.? Pain is elicited with flexion, extension, and lateral rotation of the cervical spine.? Range of motion is diminished due to pain. Facet loading maneuvers are positive.? Strength-unremarkable and within normal limits Sensory-no notable sensory deficits in the bilateral upper extremities to touch or pinprick Coordination remains intact.? Gait remains non-antalgic. Constitutional Documenting provider has reviewed patient's vital signs: yes Common normals: no apparent distress, oriented x3, healthy appearing, alert and well nourished General appearance: cooperative HENMT Common normals: normocephalic, hearing grossly normal bilaterally and moist oral mucous membranes Head and scalp: normocephalic Eye Common normals: PERRL Pupil: PERRL Neck & C-Spine Common normals: full ROM General: normal visual inspection Chest Common normals: inspection of chest normal Respiratory Common normals: normal respiratory effort, no retractions and no use of accessory muscles Back & Pelvis Thoracic spine/upper back: ROM limited and pain with ROM Lumbar spine/lower back: ROM limited, pain with ROM and straight leg raise negative bilaterally Other: positive facet loading, axial upper back and lower back pain without radiculopathy Extremity Common normals: normal to inspection and full ROM Neuro Common normals: oriented x3, CN's II-XII intact bilaterally, moves all extremities, no focal motor deficits, no sensory deficits noted, deep tendon reflexes 2+ bilaterally and gait normal Sensorium/orientation: alert Motor exam: strength 5/5 throughout and no movement abnormalities noted Psych Common normals: mental status grossly normal, thought process normal, cooperative, affect normal, speech normal and activity/motor behavior normal Speech: normal speech Thought process: normal thought process Results Additional Findings Additional findings: I have checked an OARRS report on this patient today and there are no aberra ncies noted in the prescribing history.?? A drug screen was completed and reviewed within the last year, and if there has not been a drug screen completed we ordered one today to monitor higher risk, state monitored pain medication use. As part of providing excellent, safe, comprehensive care, the following was completed at our patient's visit: 1. A medication reconciliation and review to ensure accurate knowledge of current/active medications, including asking our patients to inform us about any hhjk-rnh-vfecumv medications or herbal remedies/nutritional supplements/alternative remedies. 2. A review to specifically ensure our patients have had annual screening for: elevated body mass index (BMI), tobacco use, screening for depression, and screening for unhealthy alcohol use. When screening is concerning, patients are provided with education and the specific recommendation to discuss the concerning health issue and treatment options with their primary care provider. Assessment and Plan Assessment and Plan (1) Lumbar spondylosis: (2) Thoracic back pain: (3) Thoracic spondylosis: (4) Thoracic stenosis: (5) Disc displacement, thoracic: Plan proceed with bilateral L1-2 L2-3 facet medial branch block # 2 under fluoroscopy working towards thermal RFA continue current medication regimen, tolerating well without side effects continue TENS continue HEP as tolerated f/u 1 week after
== END 2023-10-19 13:19 | disposition home or self-care (01) ==
LOC: PM 13:19
PROVIDERS: PCP Family Medicine; Visit Provider Nurse Practitioner
DX: M47.816 Spondylosis without myelopathy or radiculopathy, lumbar region (principal); M47.814 Spondylosis without myelopathy or radiculopathy, thoracic region; M51.24 Other intervertebral disc displacement, thoracic region; M48.04 Spinal stenosis, thoracic region
CPT/HCPCS: G0463

== ENCOUNTER 2023-10-26 00:52 | Outpatient (RCR) | payer BC, MEDICARE, SELFPAY | END 2023-11-23 17:37 | disposition home or self-care (01) | LOC: MM 00:52 | PROVIDERS: PCP Family Medicine; Visit Provider Internal Medicine | DX: Z51.81 Encounter for therapeutic drug level monitoring (principal); Z79.01 Long term (current) use of anticoagulants; I82.409 Acute embolism and thrombosis of unspecified deep veins of unspecified lower extremity | CPT/HCPCS: 85610; G0463 ==

== ENCOUNTER 2023-11-06 06:47 | Day surgery (SDC) | payer BC, MEDICARE, SELFPAY ==
--- OUTSIDE RECORDS SUMMARY | 2023-11-06 06:50 | XMS_ITS | CCD ---
Author Name Unknown Address [address] [place] [address] Organization [facility] Care Team Providers Care Section Laborer Name Role Phone Adilia Mederos Unavailable HannaLilian [...] TANK Aguillon Primary Care Unavailable LAKE, DR ATNK Aguillon Primary Care Unavailable ABBAS, DR RASMUSSEN Admitting Unavailable ABBAS, DR RASMUSSEN Attending Unavailable LAKE, DR TANK Aguillon Primary Care Unavailable ABBAS, DR RASMUSSEN Admitting Unavailable ABBAS, DR RASMUSSEN Consulting Unavailable ABBAS, DR RASMUSSEN Attending Unavailable FAWWAD, DUARTE H Admitting Unavailable FAWWAD, DUARTE H Attending Unavailable LAKE, DR TANK Aguillon Primary Care Unavailable Marci CUEVAS, Yesy Unavailable Aliza Aguilar MD. Unavailable [phone] DO [place] Primary Care Provider [phone] Aliza Aguilar Attending Provider [phone] Aliza Aguilar Admitting Unavailable Aliza Aguilar [...] Acetaminophen / oxyCODONE Drug Allergy stomach upset [facility] Other (3 sources) Adhesive Tape Propensity to adverse reactions rash [facility] Other (2 sources) Cephalexin Drug Allergy anaphylaxis [facility] Other (9 sources) Erythromycin; Translations: [ERYTHROMYCIN] Drug Allergy 02-01-20 08 Other [facility] (4 sources) Iodine; Translations: [iodine] Drug Allergy 01-31-20 13 rash [facility] (3 sources) Latex Propensity to adverse reactions rash [facility] Other (3 sources) Penicillin G Benzathine Drug allergy anaphylaxis [facility] Other (3 sources) Procaine Drug Allergy headaches [facility] Other (2 sources) Cephalexin; Translations: [Keflex] Drug Allergy 01-31-20 [address] [facility] Repository (1 source) Novocain Drug allergy Unknown [facility] Other (6 sources) Acetaminophen; Translations: [ACETAMINOPHEN] Drug [...] [CIPROFLOXACIN] Drug Allergy 12-22-19 06 Other, Rash [facility] (6 sources) Doxycycline; Translations: [DOXYCYCLINE] Drug Allergy 01-24-20 Itching [facility] (6 sources) Penicillin G; Translations: [PENICILLIN G POTASSIUM] Drug Allergy 02-01-20 08 Anaphylactic Shock [facility] (6 sources) Penicillins; Translations: [PENICILLINS] Propensity to adverse reactions to drug 09-03-20 13 Anaphylactic Shock [facility] (6 sources) Quinolones (Antibiotic); Translations: [QUINOLONES] Propensity to adverse reactions to drug 03-31-20 08 Respiratory Problems [facility] Work Phone: (6 sources) Sulfonamides (Antibiotic); Translations: [SULFA ANTIBIOTICS] Propensity to adverse reactions to drug 02-01-20 08 Rash [facility] (6 sources) Bandage Tape; Translations: [BANDAGE TAPE] Propensity to adverse reactions 09-03-20 13 Rash [facility] (6 sources) Erythromycin Base; Translations: [ERYTHROMYCIN BASE] Propensity to adverse reactions to drug 01-24-20 20 Other [facility] (6 sources) Iodides; Translations: [IODIDES] Propensity to adverse reactions to drug 10-31-19 14 Hives [facility] (6 sources) Other (Review Comments!); Translations: [OTHER (REVIEW COMMENTS!)] Propensity to adverse reactions to drug 07-22-20 19 Agitation [facility] Work Phone: (1 source) Ciprofloxacin Drug Allergy [facility] Repository (1 source) Iodine (And Iodine Containting Drugs) Drug allergy (disorder) 01-31-[address] [facility] Repository (1 source) Latex Drug allergy (disorder) 01-31-[address] [facility] Repository (1 source) Morphine Drug Allergy 06-09-[address] [facility] Repository (1 source) Penicillins Drug allergy (disorder) 01-31-[address] [facility] Repository (1 source) Sulfonamides (Antibiotic) Drug allergy (disorder) 01-31-[address] [facility] Repository (1 source) Darvocet-N 100 Drug allergy (disorder) 01-31-[address] [facility] Rep[facility] (1 source) E.E.S. Drug allergy (disorder) 01-31-[address] [facility] Repository Medications Current Medications Medication Drug Class(es) Dates Sig (Normalized) Sig (Original) acetaminophen 300 mg / butalbital 50 mg / caffeine 40 mg oral capsule (11 sources) Barbiturate, Central Nervous System Stimulant, Methylxanthine Lhplmnjdcs-SIOS-Ej ffeine 50-300-40 MG CAPS Take by mouth daily as needed. 0 Active take 1 capsule by mo uth every four hours Behtmyttmc-PAZM-Qmworvem 50-325-40 MG 1 capsule as needed Orally every 4 hrs Not-Taking Fioricet Active acetaminophen 325 mg / HYDROcodone bitartrate 5 mg oral tablet (10 sources) Opioid Agonist take 1 tablet by mouth once hydrocodone-acetaminophen (NORCO) 5-325 mg per tablet Take 1 Tablet by mouth. 0 Active HYDROcodone-Acet aminophen 7.5-300 MG Orally Not-Taking [place] Active acyclovir 400 mg oral tablet (8 [...] by mouth daily. Followed in coumadin clinic [place], [place] 0 Active take 1 tablet by [...] 4 mg/0.1 mL nasal liquid Instill 1 [place] into one nostril (alternate sides) as needed. [...] Onset: 01-21-2023 Episodic Other aftercare (1 source) long-term (current) use of anticoagulants; Translations: [M[employer]SEM[employer]ER CURRNT USE ANTICOAGULANTS] Onset: 02-22-2023 Episodic Other [...] 9.2 mg/dL Normal (8.6 - 10.6) [facility] Comment on above: Order Comment: FACIL ITY: [facility] [id number] Performed By: #### C HEM-B #### [facility] [address] [facility], [address] Chloride [Moles/Vol] 99 mmol/L Normal (98 - 107) [facility] Comment on above: Order Comment: FACIL ITY: [facility] [id number] Performed By: #### C HEM-B #### [facility] [address] [facility], [address] CO2 [Moles/Vol] 27 mmol/L Normal (22 - 30) [facility] Comment on above: Order Comment: FACIL ITY: [facility] [id number] Performed By: #### C HEM-B #### [facility] [address] [facility], [address] Creatinine [Mass/Vol] 0.74 mg/dL Normal (0.52 - 1.04) [facility] Comment on above: Order Comment: FACIL ITY: [facility] [id number] Performed By: #### C HEM-B #### [facility] [address] [place], [address] GFR- AMER 95.6 ML/M1.7 Normal (60.0 - 140.1) [facility] Comment on above: Order Comment: FACIL ITY: [facility] [id number] Performed By: #### C HEM-B #### [facility] [address] [place], [address] GFR-NON AFRIC-AMER 79.0 ML/M1.7 Normal (60.0 - 115.8) [facility] Comment on above: Order Comment: FACIL ITY: [facility] [id number] Performed By: #### C HEM-B #### [facility] [address] [place], [address] Glucose [Mass/Vol] 100 mg/dL Normal (74 - 106) [facility] Comment on above: Order Comment: FACIL ITY: [facility] [id number] Performed By: #### C HEM-B #### [facility] [address] [place], [address] Potassium [Moles/Vol] 4.6 mmol/L Normal (3.5 - 5.1) [facility] Comment on above: Order Comment: FACIL ITY: [facility] [id number] Performed By: #### C HEM-B #### [facility] [address] [place], [address] Sodium [Moles/Vol] 136 mmol/L Low (137 - 145) [facility] Comment on above: Order Comment: FACIL ITY: [facility] [id number] Performed By: #### C HEM-B #### [facility] [address] [facility], [address] Urea nitrogen [Mass/Vol] 11 mg/dL Normal (7 - 17) [facility] Comment on above: Order Comment: FACIL ITY: [facility] [id number] Performed By: #### C HEM-B #### [facility] [address] [facility], [address] Progress Noteson 08-25-2023 [employer] Authentication Interface Message Text CC: Left hand and wrist pain Follow up after MRI done at [facility]. Normal [facility] [employer] Authentication Interface Message Text Patient Office Note or Post OP Note Name:Madan Perry Date: 08/25/2023 CC: [facility] area No chief complaint on file. [...] of this patient. Aliza Aguilar MD Injection Procedure.[facility] 08/25/2023 [id number] Madan Stanley Michaelmelitondaisy The patient requested an [...] alcohol and a dressing applied. Normal [facility] MR wrist LT wo conon 023 MR wrist LT wo con [facility] Main [address] [address] MRI Report Signed Patient: Madan Perry MR#: [id number] : 1960 Acct:[id number] Age/Sex: 63 / F ADM Date: 07/20/23 Loc: [facility] Room: Type: [facility] CLI Attending Dr: Aliza Aguilar Copies to: Aliza Aguilar Ordering Provider: Aliza Aguilar Date of Service: 07/20/23 MR/MR hand LT wo con: MEDIAN NERVE COMPRESSION ([id number]) MR/MR wrist LT wo con: MEDIAN NERVE COMPRESSION ([id number]) XR/XR pre/post mri xray: MEDIAN NERVE COMPRESSION [...] Jose Dial M.D.07/21/2023 7:38 PM Dictation Location: [place] [address] Transcribed By: [facility] 07/21/231937 Dictated By: Jose Dial DO 07/20/23 1525 Signed By: 07/21/231937 [facility] Telephone Encounteron 2022 [employer] Authentication Interface Message Text Spoke with patient and scheduled. Normal [facility] Telephone Encounteron 2022 [employer] Authentication Interface Message Text Pt called [...] she would need something sooner. Contact pt @[phone] Normal [facility] Addendum Noteon 06-16-2023 [employer] Authentication Interface Message Text Addended by: ALIZA AGUILAR on: 06/16/2023 11:34 AM Modules accepted: Orders Normal [facility] Progress Noteson 06-16-2023 [employer] Authentication Interface Message Text Patient Office [...] this patient. Aliza Aguilar MD Normal [facility] [employer] Authentication Interface Message Text CC: Left hand pain Pain Left wrist and hand; tingling to middle and ring fingers. Pt states ganglion which was removed has returned and is painful. CMC joint painful. 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 Normal [facility] XR HAND LEFT 3 VIEWSon 06-16 [...] findings. Left hand MACRO: None Normal [facility] XR Hand - left 3 Viewson [...] with the findings. Left hand MACRO: None [facility] Radiology Study observation (narrative) [facility] XR Hand - left 3 ViewsOrdere d By: Alberto Llanes on 06-16-2023 [facility] Work Phone: US DARNELL DOP LEG BILon [...] [place] Date: 2023-01-27 17:22 Normal [address] [facility] CBC AUTO DIFFon 01-12-2023 BASO # 0.1 103/ul Normal 0.0-0.[address] [facility] Comment on above: Performed By: #### C BC #### [facility] [address] [place] [address] Dr. Rocio Hernandez Basophils/100 WBC (Bld) 1.0 % Normal 0.2-2.[address] [facility] Comment on above: Performed By: #### C BC #### [facility] [address] [place] [address] Dr. Rocio Hernandez EO # 0.2 103/ul Normal 0.0-0.[address] [facility] Comment on above: Performed By: #### C BC #### [facility] [address] [place] [address] Dr. Rocio Hernandez Eosinophils/100 WBC (Bld) 2.9 % Normal 0.9-7.[address] [facility] Comment on above: Performed By: #### C BC #### [facility] [address] [place] [address] Dr. Rocio Hernandez Erythrocyte distribution width (RBC) [Ratio] 14.1 % Normal 11.0-15.[address] [facility] Comment on above: Performed By: #### C BC #### [facility] [address] [place] [address] Dr. Rocio Hernandez Hematocrit (Bld) [Volume fraction] 41.2 % Normal 36.0-48.0 [facility] Comment on above: Performed By: #### C BC #### [facility] [address] [place] [address] Dr. Rocio Hernandez Hemoglobin (Bld) [Mass/Vol] 13.6 g/dL Normal 12.0-16.[address] [facility] Comment on above: Performed By: #### C BC #### [facility] [address] [place] [address] Dr. Rocio Hernandez IG # 0.01 10e3/ul Normal 0.00-0.[address] [facility] Comment on above: Performed By: #### C BC #### [facility] [address] [place] [address] Dr. Rocio Hernandez IG % 0.2 % Normal 0.0-0.5 [facility] Comment on above: Performed By: #### C BC #### [facility] [address] [place] [address] Dr. Rocio Hernandez LYMPH # 1.3 103/ul Normal 1.2-3.[address] [facility] Comment on above: Performed By: #### C BC #### [facility] [address] [place] [address] Dr. Rocio Hernandez Lymphocytes/100 WBC (Bld) 21.9 % Normal 20.5-60.[address] [facility] Comment on above: Performed By: #### C BC #### [facility] [address] [place] [address] Dr. Rocio Hernandez MANUAL DIFF REQ NO Normal The [facility] Comment on above: Performed By: #### C BC #### [facility] [address] [place] [address] Dr. Rocio Hernandez MCH (RBC) [Entitic mass] 28.4 pg Normal 26.7-34.[address] [facility] Comment on above: Performed By: #### C BC #### [facility] [address] [place] [address] Dr. Rocio Hernandez MCHC (RBC) [Mass/Vol] 33.0 g/dL Normal 29.9-35.[address] [facility] Comment on above: Performed By: #### C BC #### [facility] [address] [place] [address] Dr. Rocio Hernandez MCV (RBC) [Entitic vol] 86.0 fL Normal 81.0-99.[address] [facility] Comment on above: Performed By: #### C BC #### [facility] [address] [place] [address] Dr. Rocio Hernandez MONO # 0.6 103/ul Normal 0.3-0.[address] [facility] Comment on above: Performed By: #### C BC #### [facility] [address] [place] [address] Dr. Rocio Hernandez Monocytes/100 WBC (Bld) 10.3 % Normal 1.7-12.[address] [facility] Comment on above: Performed By: #### C BC #### [facility] [address] [place] [address] Dr. Rocio Hernandez NEUT # 3.8 103/ul Normal 1.4-6.5 [facility] Comment on above: Performed By: #### C BC #### [facility] [address] [place] [address] Dr. Rocio Hernandez Neutrophils/100 WBC (Bld) 63.7 % Normal 43.0-75.[address] [facility] Comment on above: Performed By: #### C BC #### [facility] [address] [place] [address] Dr. Rocio Hernandez Platelet mean volume (Bld) [Entitic vol] 9.0 fL Critically low 9.5-13.[address] [facility] Comment on above: Performed By: #### C BC #### [facility] [address] [place] [address] Dr. Rocio Hernandez PLT 360 103/ul Normal 150-[address] [facility] Comment on above: Performed By: #### C BC #### [facility] [address] [place] [address] Dr. Rocio Hernandez RBC 4.79 106/ul Normal 4.20-5.[address] [facility] Comment on above: Performed By: #### C BC #### [facility] [address] [place] [address] Dr. Rocio Hernandez WBC 5.9 103/ul Normal 4.0-11.0 [facility] Comment on above: Performed By: #### C BC #### [facility] [address] [place] [address] [address] Rocio Hernandez FREE T3on 01-12-2023 FREE T3 2.31 pg/mlL Normal 2.18-3.98 [facility] Comment on above: Performed By: #### T SH, CMP, LIPID, FT3 ####[facility] [id number] [place] [address]DrClem Hernandez FREE T4on 01-12-2023 Free T4 [Mass/Vol] 1.21 ng/dL Normal 0.76-1.46 [facility] Comment on above: Performed By: #### B 12FOL, FT4 #### [facility] [address] [place] [address] [address] Rocio Hernandez GLYCOHEMOGLOBIN A1Con 2022 ADA RECOMMENDATION SEE BELOW Normal The [facility] Comment on above: Result Comment: ADA RECOMMENDED LIMIT 4.0 - 6.0 ADA THERAPEUTIC TARGET < 7.0 ACTION SUGGESTED > 7.0 Performed By: #### A 1C ####[facility] [id number] [place] [address]DrClem Hernandez Glucose [Mass/Vol] 123 mg/dL Normal [facility] Comment on above: Performed By: #### A 1C ####[facility] [address] [place] [id number] Hernandez HbA1c (Bld) [Mass fraction] 5.9 % Normal 4.5-6.2 [facility] Comment on above: Performed By: #### A 1C ####[facility] [address] [place] [address]DrClem Hernandez LIPID PROFILEon 01-12-2023 CHOL-HDL RATIO NORM SEE BELOW Normal The [facility] Comment on above: Result Comment: 3.3 - 4.4 LOW RISK 4.4 - 7.1 AVERAGE RISK 7.1 - 11.0 MODERATE RISK >11.0 HIGH RISK Performed By: #### T SH, CMP, LIPID, FT3 #### [facility] [address] [place] [address] [address] Rocio Hernandez Cholesterol [Mass/Vol] 203 mg/dL Critically high <=200 [facility] Comment on above: Performed By: #### T SH, CMP, LIPID, FT3 #### [facility] [address] [place] [address] [address] Rocio Hernandez Cholesterol in HDL [Mass/Vol] 89 mg/dL Critically high 40-[address] [facility] Comment on above: Performed By: #### T SH, CMP, LIPID, FT3 #### [facility] [address] [place] [address] [address] Rocio Hernandez Cholesterol in LDL [Mass/Vol] 87.8 mg/dL Normal [facility] Comment on above: Performed By: #### T SH, CMP, LIPID, FT3 #### [facility] [address] [place] [address] [address] Rocio Hernandez Cholesterol.total/C holesterol in HDL [Mass ratio] 2.3 {ratio} Normal [facility] Comment on above: Performed By: #### T SH, CMP, LIPID, FT3 #### [facility] [address] [place] [address] Dr. Rocio Hernandez HDL NORMAL > or = 60 mg/dl - LO W CARDIOVASCULAR RISK <40 mg/dl - HIGH CARDIOVASCULAR RISK Normal [facility] Comment on above: Performed By: #### T SH, CMP, LIPID, FT3 #### [facility] [address] [place] [address] [address] Rocio Hernandez LDL CALC NORMAL SEE BELOW Normal [facility] Comment on above: Result Comment: <100 mg/dl OPTIMAL 100 - 129 mg/dl NEAR OR ABOVE OPTIMAL 130 - 159 mg/dl BORDERLINE HIGH 160 - 189 mg/dl HIGH >190 mg/dl VERY HIGH Performed By: #### T SH, CMP, LIPID, FT3 #### [facility] [address] [place] [address] [address] Rocio Hernandez Triglyceride [Mass/Vol] 131 mg/dL Normal <=[address] [facility] Comment on above: Performed By: #### T SH, CMP, LIPID, FT3 #### [facility] [address] [place] [address] [address] Rocio Hernandez VLDL CALC 26.2 mg/dL Normal [facility] Comment on above: Performed By: #### T SH, CMP, LIPID, FT3 #### [facility] [address] [place] [address] [address] Rocio Hernandez MICROALB CREAT RATIO RANDOMo n 01-12-2023 mALB <1.3 Normal <=30.0 [facility] Comment on above: Performed By: #### M CRR ####[facility] [address] [place] [id number]. Rocio Hernandez MALB CR RATIO 13.6 mg/g Normal 0.0-29.9 [facility] Comment on above: Performed By: #### M CRR ####[facility] [address] [place] [address]Dr. Rocio Hernandez MALB CR RATIO RANGE SEE BELOW Normal [facility] Comment on above: Result Comment: NO M ICROALBUMINURIA 0-29 MG/G CLINICAL MICROALBUMINURIA 30-300 MG/G MACROALBUMINURIA >300 MG/G Performed By: #### M CRR ####[facility] [id number] [place] [id number]. Rocio Hernandez URINE CREAT 95.84 mg/dL Normal 20.00-300.00 [facility] Comment on above: Performed By: #### M CRR ####[facility] [address] [place] [id number]. Rocio Hernandez PROF 14(COMP METB)on 023 Albumin [Mass/Vol] 3.8 g/dL Normal 3.4-5.0 [facility] Comment on above: Performed By: #### T SH, CMP, LIPID, FT3 #### [facility] [address] [place] [address] [address] Rocio Hernandez Albumin/Globulin [Mass ratio] 0.9 {ratio} Normal [facility] Comment on above: Performed By: #### T SH, CMP, LIPID, FT3 #### [facility] [address] [place] [address] [address] Rocio Hernandez ALP [Catalytic activity/Vol] 111 U/L Normal 46-116 [facility] Comment on above: Performed By: #### T SH, CMP, LIPID, FT3 #### [facility] [address] [place] [address] [address] Rocio Hernandez ALT [Catalytic activity/Vol] 42 U/L Normal 14-59 [facility] Comment on above: Performed By: #### T SH, CMP, LIPID, FT3 #### [facility] [address] [place] [address] [address] Rocio Hernandez Anion gap [Moles/Vol] 10.8 mmol/L Normal [facility] Comment on above: Performed By: #### T SH, CMP, LIPID, FT3 #### [facility] [address] [place] [address] Dr. Rocio Hernandez AST [Catalytic activity/Vol] 24 U/L Normal 15-37 [facility] Comment on above: Performed By: #### T SH, CMP, LIPID, FT3 #### [facility] [address] [place] [address] Dr. Rocio Hernandez Bilirubin [Mass/Vol] 0.4 mg/dL Normal 0.2-1.0 [facility] Comment on above: Performed By: #### T SH, CMP, LIPID, FT3 #### [facility] [address] [place] [address] [address] Rocio Hernandez Calcium [Mass/Vol] 9.6 mg/dL Normal 8.5-10.1 [facility] Comment on above: Performed By: #### T SH, CMP, LIPID, FT3 #### [facility] [address] [place] [address] [address] Rocio Hernandez Chloride [Moles/Vol] 93 mmol/L Critically low 98-107 [facility] Comment on above: Performed By: #### T SH, CMP, LIPID, FT3 #### [facility] [address] [address] [address] Rocio Hernandez CO2 [Moles/Vol] 31.2 mmol/L Normal 21.0-32.0 [facility] Comment on above: Performed By: #### T SH, CMP, LIPID, FT3 #### [facility] [address] [address] [address] Rocio Hernandez Creatinine [Mass/Vol] 1.02 mg/dL Normal 0.55-1.02 [facility] Comment on above: Performed By: #### T SH, CMP, LIPID, FT3 #### [facility] [address] [place] [address] Dr. Rocio Hernandez EGFR-AF SWAZI >60 Normal >=60 [facility] Comment on above: Performed By: #### T SH, CMP, LIPID, FT3 #### [facility] [address] [place] [address] Dr. Rocio Hernandez EGFR-NON AF SWAZI 55 mL/min/1.73m2 Critically low >=[address] [facility] Comment on above: Performed By: #### T SH, CMP, LIPID, FT3 #### [facility] [address] [place] [address] Dr. Rocio Hernandez Globulin (S) [Mass/Vol] 4.4 g/dL Normal [facility] Comment on above: Performed By: #### T SH, CMP, LIPID, FT3 #### [facility] [address] [place] [address] Dr. Rocio Hernandez Glucose [Mass/Vol] 102 mg/dL Normal 74-106 [facility] Comment on above: Performed By: #### T SH, CMP, LIPID, FT3 #### [facility] [address] [place] [address] Dr. Rocio Hernandez Potassium [Moles/Vol] 4.0 mmol/L Normal 3.5-5.[address] [facility] Comment on above: Performed By: #### T SH, CMP, LIPID, FT3 #### [facility] [address] [place] [address] Dr. Rocio Hernandez Protein [Mass/Vol] 8.2 g/dL Normal 6.4-8.2 [facility] Comment on above: Performed By: #### T SH, CMP, LIPID, FT3 #### [facility] [address] [address] [address] Rocio Hernandez Sodium [Moles/Vol] 131 mmol/L Critically low 136-145 [facility] Comment on above: Performed By: #### T SH, CMP, LIPID, FT3 #### [facility] [address] [place] [address] Dr. Rocio Hernandez Urea nitrogen [Mass/Vol] 6.0 mg/dL Critically low 7.0-18.0 [facility] Comment on above: Performed By: #### T SH, CMP, LIPID, FT3 #### [facility] [address] [address] [address] Rocio Hernandez Urea nitrogen/Creatinine [Mass ratio] 5.9 mg/mg Normal [facility] Comment on above: Performed By: #### T SH, CMP, LIPID, FT3 #### [facility] [address] [place] [address] Dr. Rocio Hernandez TSHon 01-12-2023 TSH 5.647 uIU/mL Critically high 0.358-3.740 [facility] Comment on above: Performed By: #### T SH, CMP, LIPID, FT3 #### [facility] [address] [place] [address] Dr. Rocio Hernandez VIT B12 AND FOLATEon 023 Cobalamin (Vitamin B12) [Mass/Vol] 1189.0 pg/mL Critically high 193.0-986.0 [facility] Comment on above: Performed By: #### B 12FOL, FT4 #### [facility] [address] [place] [address] Dr. Rocio Hernandez FOLATE 27.30 ng/mL Normal 8.60-58.90 [facility] Comment on above: Performed By: #### B 12FOL, FT4 #### [facility] [address] [place] [address] Dr. Rocio Hernandez MG MAMM SCREEN 3D TANIA CADon 12-19-2022 MG MAMM SCREEN 3D TANIA CAD Patient: MADAN PERRY Exam Date: 12/19/2022 : 1960 Gender:F Ordering : DR [place] D.O. Admission #: [id number] Family : Order #: [id number] CLICK HERE TO VIEW EXAM RADIOLOGY REPORT [...] ovarian cancer at age 54. LOCATION: The [facility] BREAST COMPOSITION: Scattered areas fibroglandular density. [...] M.D. on 12/19/2022 at 11:19 Normal [address] [facility] XR DEXA BONE DENSITYon 12-19 XR [...] by: RODRI FLORES Date: 2022-12-19 10:01 Normal [facility] FREE T3on 03-22-2022 FREE T3 2.43 pg/mlL Normal 2.18-3.[address] [facility] Comment on above: Performed By: #### B MP, FT3, TSH ####[facility] [address] [address]Dr. Rocio Hernandez FREE T4on 03-22-2022 Free T4 [Mass/Vol] 1.43 ng/dL Normal 0.76-1.46 [facility] Comment on above: Performed By: #### F T4 ####[facility] [address] [address]Dr. Rocio Hernandez PROF CHEM 8 (BAS METB)on Anion gap [Moles/Vol] 10.2 mmol/L Normal [facility] Comment on above: Performed By: #### B MP, FT3, TSH ####[facility] [address] [address]Dr. Rocio Hernandez Calcium [Mass/Vol] 8.8 mg/dL Normal 8.5-10.1 [facility] Comment on above: Performed By: #### B MP, FT3, TSH ####[facility] [address] [address]Dr. Rocio Hernandez Chloride [Moles/Vol] 104 mmol/L Normal 98-[address] [facility] Comment on above: Performed By: #### B MP, FT3, TSH ####[facility] [address] [address]Dr. Rocio Hernandez CO2 [Moles/Vol] 31.7 mmol/L Normal 21.0-32.0 [facility] Comment on above: Performed By: #### B MP, FT3, TSH ####[facility] [address] [address]Dr. Rocio Hernandez Creatinine [Mass/Vol] 0.96 mg/dL Normal 0.55-1.02 [facility] Comment on above: Performed By: #### B MP, FT3, TSH ####[facility] [address] [address]Dr. Kerendereck Hernandez EGFR-AF SWAZI >60 Normal >=60 [facility] Comment on above: Performed By: #### B MP, FT3, TSH ####[facility] [address] [address]Dr. Kerendereck David EGFR-NON AF SWAZI 59 mL/min/1.73m2 Critically low >=60 [facility] Comment on above: Performed By: #### B MP, FT3, TSH ####[facility] [address] [address]Dr. Rocio Hernandez Glucose [Mass/Vol] 110 mg/dL Critically high 74-106 T [facility] Comment on above: Performed By: #### B MP, FT3, TSH ####[facility] [address] [address]Dr. Rocio Hernandez Potassium [Moles/Vol] 2.9 mmol/L Critically low 3.5-5.1 [facility] Comment on above: Result Comment: TEST REPEATED CRITICAL VALUE VERIFIED Performed By: #### B MP, FT3, TSH ####[facility] [address] [address]Dr. Rocio Hernandez Sodium [Moles/Vol] 141 mmol/L Normal 136-145 [facility] Comment on above: Performed By: #### B MP, FT3, TSH ####[facility] [address] [address]Dr. Rocio Hernandez Urea nitrogen [Mass/Vol] 12.0 mg/dL Normal 7.0-18.0 [facility] Comment on above: Performed By: #### B MP, FT3, TSH ####[facility] [address] [address]Dr. Rocio Hernandez Urea nitrogen/Creatinine [Mass ratio] 12.5 mg/mg Normal [facility] Comment on above: Performed By: #### B MP, FT3, TSH ####[facility] [address] [place], [place] [address]Ij. Rocio Hernandez TSHon 03-22-2022 TSH 0.137 uIU/mL Critically low 0.358-3.740 [facility] Comment on above: Performed By: #### B MP, FT3, TSH ####[facility] [address] [place], [place] [address]Ec. Rocio Hernandez Patient Letter FTMCon 2020 Patient Letter FT (Inserted Image. Wilda ble to display) May 26, [address] [facility] [address] [place] [address] MADAN PERRY 1960 Dear Madan, This is a SECOND ATTEMPT to remind you that you are due for an appointment with [facility]. Please contact our office at [phone] to schedule an appointment at your earliest convenience. Thank you, [facility] Reminderson 05-26-2021 Reminders - From: Jane Onofre To: GINA - Reminders/Recalls; Sent: 01/18/2021 12:33:31 EDT Show up: 04/25/2021 12:33:00 EDT Subject: Ambulatory Reminder Due Date/Time: 06/09/2021 12:33:00 EDT Reminder/Recall sara peace 5 year colon 06/09/2021 first recall letter second rcall letter [facility] Patient Letter FTMCon 2020 Patient Letter FT (Inserted Image. Wilda ble to display) May 05, [address] [facility] [address] [place] [address] MADAN PERRY 1960 Dear Madan, This is a reminder that you are due for an appointment with [facility]. Please contact our office at [phone] to schedule an appointment at your earliest convenience. Thank you, [facility] Vital Signs Date Time Vital Sign Value Performing Clinician Facility 05-09-2022 16:35-0400 Body height 161.29 cm Adilia Mederos Other [facility] Other 05-09-2022 16:35-0400 Body mass index (BMI) [Ratio] 25.63 kg/m2 Adilia Mederos Other [facility] Other 05-09-2022 16:35-0400 Body temperature 97.8 [degF] Adilia Mederos Other [facility] Other 05-09-2022 16:35-0400 Body weight 66.68 kg Adilia Mederos Other [facility] Other 05-09-2022 16:35-0400 Diastolic blood pressure 79 mm[Hg] Adilia Cardenasault Other [facility] Other 05-09-2022 16:35-0400 Respiratory rate 18 /min Adilia Mederos Other [facility] Other 05-09-2022 16:35-0400 SaO2% (BldA) [Mass fraction] 98 % Adilia Mederos Other [facility] Other 05-09-2022 16:35-0400 Systolic blood pressure 136 mm[Hg] Adilia Cardenasault Other [facility] Other 07-21-2021 16:05-0400 Body height 161.29 cm Lilian Ferreria Other [facility] Other 07-21-2021 16:05-0400 Body mass index (BMI) [Ratio] 26.5 kg/m2 Lilian Ferreira Other [facility] Other 07-21-2021 16:05-0400 Body temperature 96.2 [degF] Lilian Ferreira Other [facility] Other 07-21-2021 16:05-0400 Body weight 68.95 kg Lilian Ferreira Other [facility] Other 07-21-2021 16:05-0400 Diastolic blood pressure 95 mm[Hg] Lilian Ferreira Other [facility] Other 07-21-2021 16:05-0400 Respiratory rate 18 /min Lilian Ferreira Other [facility] Other 07-21-2021 16:05-0400 SaO2% (BldA) [Mass fraction] 99 % Lilian Ferreira Other [facility] Other 07-21-2021 16:05-0400 Systolic blood pressure 132 mm[Hg] Lilian Ferreira Other [facility] Other 06-22-2021 14:20-0400 Body height 161.29 cm Adilia Cardenasault Other [facility] Other 06-22-2021 14:20-0400 Body mass index (BMI) [Ratio] 25.98 kg/m2 Adilia Rosa M Other [facility] Other 06-22-2021 14:20-0400 Body temperature 96.4 [degF] Adilia Rosa M Other [facility] Other 06-22-2021 14:20-0400 Body weight 67.59 kg Adilia Mederos Other [facility] Other 06-22-2021 14:20-0400 Diastolic blood pressure Adilia Mederos Other [facility] Other 06-22-2021 14:20-0400 Respiratory rate 18 /min Adilia Mederos Other [facility] Other 06-22-2021 14:20-0400 SaO2% (BldA) [Mass fraction] 98 % Adilia Mederos Other [facility] Other 06-22-2021 14:20-0400 Systolic blood pressure 111 mm[Hg] Adilia Mederos Other [facility] Other Encounters Encounter Date Encounter Type Care Provider Facility Start: 10-09-2023 End: 10-10-2023 ambulatory Meet Harp MD Facility: [facility] Start: 08-25-2023 End: 08-25-2023 ambulatory ALIZA AGUILAR Facility:[facility] Start: 08-25-2023 End: 08-25-2023 Office outpatient visit 15 minutes Aliza Aguilar MD Work Phone: [address] [facility] Comment on above: Hand arthritis (Prim maurisio Dx) Start: 08-21-2023 End: 08-22-2023 ambulatory Meet Harp MD Facility: [facility] Start: 08-19-2023 Letter encounter Yesy Covarrubias OT Work Phone: [facility] Start: 07-31-2023 End: 08-01-2023 ambulatory Meet Harp MD Facility: [facility] Start: 07-24-2023 End: 07-25-2023 ambulatory Meet Harp MD Facility: [facility] Start: 07-20-2023 End: 07-20-2023 ambulatory Aliza Aguilar Facility:[facility] Start: 07-20-2023 End: 07-20-2023 ambulatory DO [place] Work Phone: [facility] Work Phone: Start: 07-20-2023 End: 07-20-2023 Patient encounter procedure DO [place] Work Phone: [facility] [address] Work Phone: Start: 07-10-2023 End: 07-11-2023 ambulatory [facility] Start: 06-16-2023 End: 06-17-2023 ambulatory UNKNOWN PROVIDER [facility] Start: 06-16-2023 End: 06-16-2023 Office outpatient visit 25 minutes Aliza Aguilar MD Work Phone: [address] [facility] Comment on above: Left hand pain (Prim maurisio Dx) Start: 06-16-2023 End: 06-16-2023 Subsequent hospital visit by physician W150th Op Op X-Ray 1 Work Phone: [address] [facility] Comment on above: Left hand pain Start: 02-07-2023 End: 02-08-[address] [place] Facility:[facility] Start: 01-27-2023 End: 01-28-[address] [place] Facility:[facility] Start: 01-23-2023 End: 02-22-2023 ambulatory SHAIKH Eduardo ROSS Facility:[facility] Start: 01-16-2023 Encounter for genera l adult medical examination without abnormal findings DR [place] [facility] Start: 01-12-2023 End: 01-13-[address] [...] 05-09-2022 End: 05-09-2022 ambulatory Adilia Mederos Other [facility] Other Start: 05-09-2022 Office outpatient vi sit [...] vaccination Tetanus (T d or Tdap) Booster [facility] Start: 01-13-2028 Cholesterol [Mass/volume] in Serum or Plasma Cholesterol [facility] Start: 08-25-2023 End: 08-25-2023 Patient encounter procedure 08/25/2023 11:30 AM EST Office Visit [address] [facility] [address] [place] [address] Aliza Aguilar MD [address] [place] [id number] [facility] Start: 07-20-2023 XR pre/post mri xray XR pre/post mri xray [facility] Start: 07-20-2023 [facility] Start: 07-20-2023 MR Wrist - left WO contrast [facility] Start: 07-20-2023 MRI of left wrist MR wrist LT wo con [facility] Start: 07-20-2023 MR Hand - left WO contrast [facility] Start: 07-20-2023 MRI of left hand MR hand LT wo con [facility] Start: 06-25-2023 Influenza vaccination Influenza Vacc ine (#1) [facility] Start: 06-16-2023 End: 06-16-2024 MR Wrist - left WO contrast MR WRIST LEFT W/O Imaging Routine Left hand pain Expected: 06/16/2023, Expires: 06/16/2024 [facility] [employer] [facility] Work Phone: Comment on above: Expected: [...] wellness visit Annual W ellness Visit ([id number]) [facility] Start: 2009 Measurement of occul t blood in single stool specimen FIT [facility] Start: 2009 Screening for malign ant neoplasm of breast Mammography [facility] Start: 2009 Screening for malign ant neoplasm of colon CRC Screening [facility] Start: 02-11-2004 Cholesterol [Mass/volume] in Serum or Plasma Cholesterol [facility] Start: 02-11-2004 Screening for malign ant neoplasm of colon [facility] Start: 1999 Screening for malign ant neoplasm of breast Mammography [facility] Start: 02-11-1980 Screening for malign ant neoplasm of cervix Pap Smear [facility] Start: 1977 Hepatitis C screening Hepatitis C An tibody [facility] Start: 1974 HIV screening HIV Test [facility] Start: 1960 COVID-19 Vaccine ( formulation) COVID-19 [facility] ( [facility] Start: 1960 Screening for malign ant neoplasm of colon Colonoscopy [facility] Immunizations Immunization Date Immunization Notes Care Provider Fa [facility] 08-11-2023 influenza, injectabl e, quadrivalent, preservative free Aliza Aguilar MD Work Phone: [facility] 08-11-2023 Respiratory syncytia l virus (RSV), vaccine, bivalent, protein subunit RSV prefusion F, diluent reconstituted, 0.5 mL, preservative free (XPM=477) Aliza Aguilar MD Work Phone: [facility] 06-18-2022 influenza, injectabl e, quadrivalent, preservative free Aliza Aguilar MD Work Phone: [facility] 06-18-2022 influenza virus vacc ine, unspecified formulation Aliza Aguilar MD Work Phone: [facility] 02-05-2022 Pfizer Monovalent (1 2+ yrs) SARS-COV-2 (COVID-19) vaccine, mRNA, spike protein, LNP, pres. free, 30 mcg/0.3mL dose, betito-sucrose (KOJ=817) Aliza Aguilar MD Work Phone: [facility] 08-11-2021 influenza, injectabl e, quadrivalent, preservative free Yesy Marci OT Work Phone: [facility] 08-11-2021 influenza virus vacc ine, unspecified formulation Yesy Marci OT Work Phone: [facility] 07-24-2020 zoster vaccine recombinant K athryn Marci OT Work Phone: [facility] 07-11-2020 Influenza, injectabl e, Madin Zakia Canine Kidney, preservative free, quadrivalent Yesy Marci OT Work Phone: [facility] 04-18-2020 zoster vaccine recombinant K athryn Marci OT Work Phone: [facility] 08-28-2019 Influenza, injectabl e, Madin Alma Canine Kidney, preservative free, quadrivalent Yesy Marci OT Work Phone: [facility] 07-01-2019 influenza, high dose seasonal, preservative-free Yesy Marci OT Work Phone: [facility] 06-25-2019 pneumococcal polysac charide vaccine, 23 valent Yesy Marci OT Work Phone: [facility] 07-06-2018 influenza, injectabl e, quadrivalent, contains preservative Yesy Marci OT Work Phone: [facility] 06-04-2018 tetanus toxoid, redu karen diphtheria toxoid, and acellular pertussis vaccine, adsorbed Yesy Marci OT Work Phone: [facility] 08-19-2017 influenza, injectabl e, quadrivalent, preservative free Yesy Marci OT Work Phone: [facility] 08-09-2017 influenza, injectabl e, quadrivalent, contains preservative Yesy Marci OT Work Phone: [facility] 08-01-2016 influenza, injectabl e, quadrivalent, preservative free Yesy Marci OT Work Phone: [facility] 07-11-2015 influenza, injectabl e, madin zakia canine kidney, preservative free Yesy Marci OT Work Phone: [facility] 07-11-2015 pneumococcal conjuga te vaccine, 13 valent Yesy Marci OT Work Phone: [facility] 08-13-2009 novel influenza-H1N1 -09, preservative-free, injectable Yesy Marci OT Work Phone: [facility] 07-17-2009 influenza virus vacc ine, unspecified formulation Yesy Marci OT Work Phone: [facility] 08-15-2008 influenza virus vacc ine, unspecified formulation Yesy Marci OT Work Phone: [facility] Payers Date Payer Category Payer Self-pay [id number] 2018 Unknown [id number] 2013 Medicare [id number] [id number] [id number] 1960 [facility] [id number] [id number] 1960 Medicare [id number] 2.16.840.1.290135.19 1959 Unknown [id number] 2.16.840.1.422600.3.579.2.593 1959 Unknown [id number] 2.16.840.1.981280.3.579.2.593 1959 Unknown [id number] 2.16.840.1.430395.3.579.2.593 1959 Unknown [id number] 2.16.840.1.021338.3.579.2.593 1959 Unknown [id number] 2.16.840.1.932711.3.579.2.59 1959 Unknown [id number] 2.16.840.1.344301.3.579.2.59 1959 Unknown [id number] 2.16.840.1.360040.3.579.2.59 1959 Unknown [id number] 2.16.840.1.905943.3.579.2.593 1959 Unknown [id number] 2.16.840.1.653988.3.579.2.593 1959 Unknown [id number] 2.16.840.1.887188.3.579.2.593 1959 Unknown [id number] 2.16.840.1.993114.3.579.2.593 1959 Unknown [id number] 2.16.840.1.845526.3.579.2.593 1959 Unknown [id number] 2.16.840.1.176686.3.579.2.593 1959 Unknown [id number] 2.16.840.1.912107.3.579.2.593 1959 Unknown [id number] 2.16.840.1.517043.3.579.2.593 1959 Unknown [id number] 2.16.840.1.926612.3.579.2.593 1959 Unknown [id number] 2.16.840.1.439149.3.579.2.593 1959 Unknown [id number] 2.16.840.1.929850.3.579.2.593 1959 Unknown [id number] 2.16.840.1.321302.3.579.2.593 1959 Unknown [id number] 2.16.840.1.534624.3.579.2.593 1959 Unknown [id number] 2.16.840.1.069177.3.579.2.732 1959 Unknown [id number] 2.16840.1.570736.3.579.2.732 1959 Unknown [id number] 2.16840.1.947813.3.579.2.732 1959 Unknown [id number] 2.840.1.825305.3.579.2.196 1959 Unknown [id number] 2.16840.1.940745.3.579.2.196 1959 Unknown [id number] 2.16840.1.891924.3.579.2.196 1959 Unknown [id number] 2.16840.1.317149.3.579.2.196 1959 Unknown [id number] 2.16840.1.741090.3.579.2.196 Medicare Medicare Nonpatient [id number] Unknown [id number] 2.16.840.1.355897.3.579.2.531 Social History Date Type Detail Facility Unknown if ever smoked [facility] Other Sex Assigned At [facility] Other Start: 05-31-2019 Tobacco smoking stat [facility] Ex-smoker [facility] History of tobacco use Current smoker [facility] Start: 05-31-2019 Tobacco use and exposure Smokeless tobacco non-user [facility] Start: 04-07-2020 Alcohol intake Lifetime non-d han (finding) [facility] Start: 07-09-2019 History SDOH Alcohol Frequency 1 [facility] Start: 1960 Sex [facility]igned At Not [facility] file [facility] Start: 1960 Sex Assigned At Female [facility] Medical Equipment Procedure Code Equipment Code Equipment Origin al Text Equipment Identifier 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 Patient Office Note or Post OP Note Name:Madan Perry Date: 08/25/2023 CC: [facility] No chief complaint on file. [...] of this patient. Aliza Aguilar MD Injection Procedure.[facility] 08/25/2023 [id number] Madan Perry The patient requested an injection [...] a dressing applied. documented in this encounter [facility] 06-16-2023 Note Addended by: ALIZA AGUILAR on: 06/16/2023 11:34 AM Modules accepted: Orders [facility] 06-16-2023 Miscellaneous Notes Addended by: ALIZA AGUILAR on: 06/16/2023 11:34 AM Modules accepted: Orders documented in this encounter [facility] 06-16-2023 History of Presen t illness [...] continues on coumadin. documented in this encounter [facility] 05-09-2022 Evaluation note Encounter Date Diagnosis [...] Xray that was ordered outpatient by PCP [facility] Other 08-10-2022 NotePROCEDURE: XR FOOT RT MIN 3 VIEWS COMPARISON: None. HISTORY: Pain in right foot FINDINGS: BONES:No fracture, acute abnormality, or significant arthropathy. Mild enthesopathic spurring of the calcaneus at the Achilles insertion SOFT TISSUES:Negative. No visible soft tissue swelling. EFFUSION:None visible. OTHER: Negative. IMPRESSION: No acute abnormality Electronically authenticated by: MARTINEZ HARVEY Date: 2022-05-04 16:22[facility]10-27-2021 Evaluation note* Encounter Date Diagnosis Assessment Notes Treatment Notes Treatment Clinical Notes Jun, Swelling of left elbow (ICD-10 - M25.422) Jun, Other Patient refe rred to the ER due to swelling, ecchymosis, pain of her left elbow with no known injury. It is felt the patient needs blood work to evaluate [facility] Other 09-28-2021 Evaluation note* Encounter Date Diagnosis Assessment Notes Treatment Notes Treatment Clinical Notes May, Bee sting, undetermined intent, initial encounter (ICD-10 - T63.444A) May continue Xyzal and Benadryl as directed. [facility] Other Evaluation note* Diagnosis Left hand pain- Primary Pain in limb Left hand pain Pain in limb [facility] Diagnosis Left hand pain Pain in limb [facility] Phone: Evaluation note* Diagnosis Hand [...] second t roseann Hospitalization History see above [facility] Other Summary Purpose Family History No Family [...] Diagnoses Left hand pain Aliza Aguilar MD [facility] [place] [address] Referral ID Status Reason Start Date Expiration Date Visits Requested Visits Authorized [id number] Authorized Patient Preference 06/16/2023 06/16/2024 3 3 Comments Near home, [place], [place] Specialty Diagnoses / Procedures Referred By Contac t Referred To Contact Radiology Diagnoses Left hand pain Procedures MR WRIST LEFT W/O Aliza Aguilar MD [address] [place], [place] [facility] MRI [address] [place] [address] Referral ID Status Reason Start Date Expiration Date V isits Requested Visits Authorized [id number] Authorized 06/16/2023 06/15/2024 1 1 Specialty Diagnoses / Procedures Referred By Contac t Referred To Contact Radiology Diagnoses Left hand pain Procedures XR HAND LEFT 3 VIEWS [facility] [address] [place], [place] [id number] [facility] DIAGNOSTIC RADIOLOGY [address] [place] [address] [place] [address] Referral ID Status Reason Start Date Expiration Date Visits Re quested Visits Authorized [id number] Closed 06/16/2023 06/15/2024 1 1 Chief Complaint and Reason for Visit Chief Complaint median nerve karel krista Additional Source Comments INFORMATION SOURCE (unrecogn ized section and content) DATE CREATED AUTHOR 05/27/2021 [facility] DATE CREATED AUTHOR AUTHOR'S ORGANIZ ATION 03/03/2023 [facility] DATE CREATED AUTHOR AUTHOR'S ORGANIZ ATION 07/30/2023 [facility] DATE CREATED AUTHOR AUTHOR'S ORGANIZ ATION 08/28/2023 [facility] [employer] [facility] DATE CREATED AUTHOR AUTHOR'S ORGANIZ ATION 09/03/2023 [facility] DATE CREATED AUTHOR AUTHOR'S ORGANIZ ATION 10/18/2023 [facility] REASON FOR VISIT (unrecogniz ed section and content) Reason Comments Hand/finger symptoms Specialty Diagnoses / Procedures Referred By Contac t Referred To Contact Radiology Diagnoses Left hand pain Procedures XR HAND LEFT 3 VIEWS [facility] [address] [place], [place] [id number] [facility] DIAGNOSTIC RADIOLOGY [address] [address] Referral ID Status Reason Start Date Expiration Date Visits Re quested Visits Authorized [id number] Closed 06/16/2023 06/15/2024 1 1 Reason Comments Hand/finger symptoms Care Teams (unrecognized sec tion and content) Section 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 Start Date End Date Yesy Covarrubias OT [address] [place] [place] [address] Occupational Therapist Occupational Therapy 06/30/20 Aliza Aguilar MD [address] [place] [address] Physician Orthopaedic Hand Service 06/30/20 Section 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 Start Date End Date Yesy Covarrubias OT [address] [place] [address] Occupational Therapist Occupational Therapy 06/30/20 Aliza Aguilar MD [address] [place] [address] Physician Orthopaedic Hand Service 06/30/20 Section 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 Start Date End Date Yesy Covarrubias OT [address] [place] [address] Occupational Therapist Occupational Therapy 06/30/20 Aliza Aguilar MD [address] [place] [address] Physician Orthopaedic Hand Service 06/30/20 Team Status: Active Member Role Status Dates [place] DO Primary Care Provider Active Team Status: Inactive Member Role Status Dates [place] DO Primary Care Provider Active Aliza Aguilar Attending Provider Active Section 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 Start Date End Date Yesy Covarrubias OT [address] [place] [address] Occupational Therapist Occupational Therapy 06/30/20 Aliza Aguilar MD [address] [place] [address] Physician Orthopaedic Hand Service 06/30/20 Section 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 Start Date End Date Yesy Covarrubias OT [address] [facility] [place] [address] Occupational Therapist Occupational Therapy 06/30/20 Aliza Aguilar MD [address] [place] [address] Physician Orthopaedic Hand Service 06/30/20 Goals (unrecognized [...] BE BASED ON THE PRIMARY CLINICAL RECORDS. [employer] provides no warranty or guarantee of the accuracy or completeness of information in this document.
[2023-11-06 07:13] LABS: INR 2.31; Prothrombin Time 23.4 sec (9.0-11.6)
[2023-11-06 07:21] VITALS: BP 112/71; PULSE 96; RESP 18; TEMP 36.6; O2SAT 100
[2023-11-06] MEDS: BUPIVACAINE HCL 0.25% PF 25 MG/10 ML VIAL INJ (07:59)
[2023-11-06 08:00] VITALS: BP 126/65; PULSE 99; RESP 18; O2SAT 95
[2023-11-06] MEDS: LIDOCAINE HCL 2% PF 100 MG/5 ML VIAL INJ (08:00)
[2023-11-06 08:02] VITALS: BP 126/63; PULSE 100; RESP 18; O2SAT 95
--- NOTE | 2023-11-06 08:02 | W.PM.PROCNOT ---
Date of procedure: 11/06/23 Pre-op diagnosis: Lumbar spondylosis Post-op diagnosis: same as pre-op Procedure: Procedure: Bilateral L1-2, L2-3 medial branch block Medications: Bupivacaine 0.25% 6cc The patient was seen and examined in the preoperative holding area.? An informed consent was obtained and placed on the chart.? The patient was brought to the medical procedure unit and placed in the prone position.? A timeout was completed verifying correct patient, procedure site, positioning, plan, and special equipment.? Using aseptic technique, the needle was placed at left L1. Under direct fluoroscopic visualization a Quincke-tipped spinal needle was advanced to the junction of the superior articulating process with the transverse process at the designated medial branch segment.? Preceded by negative aspiration, the above-mentioned injectate was placed in 1 mL aliquots.? The procedure was repeated at left L2, 3.? The needle was removed and insertion site was covered. The same procedure, at the same levels, was completed on the right side. The patient was taken to the postprocedural recovery area and monitored for an appropriate length of time before found suitable for discharge in the company of a responsible adult. Anesthesia: Local Surgeon: Meet Harp Pathology: none sent Condition: stable Disposition: no change
== END 2023-11-06 08:07 | disposition home or self-care (01) ==
PROVIDERS: PCP Family Medicine; Visit Provider Anesthesiology
DX: M47.816 Spondylosis without myelopathy or radiculopathy, lumbar region (principal)
CPT/HCPCS: 36415; 64493; 64494; 85610; J0665

== ENCOUNTER 2023-11-16 10:45 | Outpatient (OUT) | payer BC, MEDICARE, SELFPAY ==
--- OUTSIDE RECORDS SUMMARY | 2023-11-16 10:49 | XMS_ITS | CCD ---
Author Name Unknown Address [address] [place] [address] Organization [facility] Care Team Providers Care Upper Cutter Machine Name Role Phone Adilia Mederos Unavailable HannaLilian Unavailable Yesy Covarrubias OT Unavailable Aliza Aguilar MD Unavailable [phone], [address] [place] [facility] [...] CUEVAS, Yesy Unavailable Aliza Aguilar MD. Unavailable DO [place] [facility] Provider Aliza Aguilar Attending Provider Aliza Aguilar Admitting Unavailable Aliza Aguilar Attending Unavailable [place] [facility] Unavailable PROVIDER, UNKNOWN Admitting Unavailable PROVIDER, UNKNOWN Attending Unavailable PROVIDER, UNKNOWN Attending Unavailable PROVIDER, UNKNOWN Admitting Unavailable ALIZA AGUILAR Referring Unavailable PROVIDER, UNKNOWN Admitting Unavailable PROVIDER, UNKNOWN Attending Unavailable Giedraitis MD, Andrius Shipley Attending Unavailable Giedraitis MD, Andrius Quinten Attending Unavailable Giedraitis MD, Andrius Norahytbrianna Attending Unavailable Giedraitis MD, Andrius Quinten Attending Unavailable Giedraitis MD, Andrius Vytautjoanne Attending Unavailable Giedraitis MD, Andrius Vytautas Attending Unavailable Allergies Allergy Classification Reported Allergen(s) Allergy Type Date of Onset Reaction(s) Facility (3 sources) Acetaminophen / oxyCODONE Drug Allergy stomach upset [facility] Other (3 sources) Adhesive Tape Propensity to adverse reactions rash [facility] Other (2 sources) Cephalexin Drug Allergy anaphylaxis [facility] Other (9 sources) Erythromycin; Translations: [ERYTHROMYCIN] Drug Allergy 02-01-20 08 Other [facility] (4 sources) Iodine; Translations: [iodine] Drug Allergy 01-31-20 13 rash [facility] (3 sources) Latex Propensity to adverse reactions rash [facility] Other (3 sources) Penicillin G Benzathine Drug allergy anaphylaxis [facility] Other (3 sources) Procaine Drug Allergy headaches [facility] Other (2 sources) Cephalexin; Translations: [Keflex] Drug Allergy 01-31-20 13 anaphylaxis [facility] (1 source) Novocain Drug allergy Unknown [facility] Other (6 sources) Acetaminophen; Translations: [ACETAMINOPHEN] Drug [...] reactions to drug 09-03-20 13 [facility]actic Shock [facility] (6 sources) Quinolones (Antibiotic); Translations: [QUINOLONES] Propensity to adverse reactions to drug 03-31-20 08 Respiratory Problems [facility] Work Phone: (6 sources) Sulfonamides (Antibiotic); Translations: [SULFA ANTIBIOTICS] Propensity to adverse reactions to drug 02-01-20 08 Rash [facility] (6 sources) Bandage Tape; Translations: [BANDAGE TAPE] Propensity to adverse reactions 09-03-20 13 Rash [facility] (6 sources) Erythromycin Base; Translations: [ERYTHROMYCIN BASE] Propensity to adverse reactions to drug 01-24-20 Other [facility] ([facility] sources) Iodides; Translations: [IODIDES] [...] sources) Barbiturate, Central Nervous System Stimulant, Methylxanthine Kwefhujfor-ERLF-Jp ffeine 50-300-40 MG CAPS Take by mouth daily as needed. 0 Active take 1 capsule by mo [facility] every four hours Fxdhhdjqwl-YSCI-Yykncagb 50-325-40 MG 1 capsule as needed Orally every 4 hrs Not-Taking Fioricet Active acetaminophen 325 mg / HYDROcodone bitartrate 5 mg oral tablet (10 sources) Opioid Agonist take 1 tablet by mouth once hydrocodone-acetaminophen (NORCO) 5-325 mg per tablet Take 1 Tablet by mouth. 0 Active HYDROcodone-Acet aminophen 7.5-300 MG Orally Not-Taking Bridgeton Active acyclovir 400 mg oral tablet (8 [...] take 1 tablet by lisa th every twenty-four hours hydroCHLOROthiazide 25 MG 1 [...] by mouth daily. Followed in coumadin clinic [place], [place] 0 Active take 1 tablet by [...] 4 mg/0.1 mL nasal liquid Instill 1 [place] into one nostril (alternate sides) as needed. 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 [facility], [address] Chloride [Moles/Vol] 99 mmol/L Normal (98 - 107) [facility] Comment on above: Order Comment: FACIL ITY: [facility] [id number] Performed By: #### C HEM-B #### [facility] [address] [facility], [address] CO2 [Moles/Vol] 27 mmol/L Normal (22 - 30) [facility] Comment on above: Order Comment: FACIL ITY: [facility] [id number] Performed By: #### C HEM-B #### [facility] [address] [place], [address] Creatinine [Mass/Vol] 0.74 mg/dL Normal (0.52 - 1.04) [facility] Comment on above: Order Comment: FACIL ITY: [facility] [id number] Performed By: #### C HEM-B #### [facility] [address] [place], [address] GFR- AMER 95.6 ML/M1.7 Normal (60.0 - 140.1) [facility] Comment on above: Order Comment: FACIL ITY: [facility] [id number] Performed By: #### C HEM-B #### [facility] [address] [place], [address] GFR-NON AFRIC-AMER 79.0 ML/M1.7 Normal (60.0 - 115.8) [facility] Comment on above: Order Comment: [facility] [id number] Performed By: #### C HEM-B #### [facility] [address] [facility], [address] Glucose [Mass/Vol] 100 mg/dL Normal (74 - 106) [facility] Comment on above: Order Comment: FACIL ITY: [facility] [id number] Performed By: #### C HEM-B #### [facility] [address] [place], [address] Potassium [Moles/Vol] 4.6 mmol/L Normal (3.5 - 5.1) [facility] Comment on above: Order Comment: FACIL ITY: [facility] [id number] Performed By: #### C HEM-B #### [facility] [address] [place], [address] Sodium [Moles/Vol] 136 mmol/L Low (137 - 145) [facility] Comment on above: Order Comment: FACIL ITY: [facility] [id number] Performed By: #### C HEM-B #### [facility] [address] [facility], [address] Urea nitrogen [Mass/Vol] 11 mg/dL Normal (7 - 17) [facility] Comment on above: Order Comment: FACIL ITY: [facility] [id number] Performed By: #### C HEM-B #### [facility] [address] [facility], [address] Progress Noteson 08-25-2023 Crystalizer Operator Authentication Interface Message Text CC: Left hand and wrist pain Follow up after MRI done at [facility]. Normal [facility] [employer] Crystalizer Operator Authentication Interface Message Text Patient Office Note or Post OP Note Name:Madan Perry Date: 08/25/2023 CC: left wrist pain at [facility] area No chief complaint on file. [...] of this patient. Aliza Aguilar MD Injection Procedure.[facility] 08/25/2023 [id number] Madan Stanley Dionna The patient requested an injection of Lidocaine [...] alcohol and a dressing applied. Normal [facility] MR wrist LT wo conon 023 MR wrist LT wo con [facility] Main Mission [address] [place] [id number] MRI Report Signed Patient: Madan Perry MR#: [id number] : 1960 Acct:[id number] Age/Sex: 63 / F ADM Date: 07/20/23 Loc: [facility] Room: Type: [facility] Attending Dr: Aliza Aguilar Copies to: Aliza Aguilar Ordering Provider: Aliza Aguilar Date of Service: 07/20/23 MR/MR hand LT wo con: MEDIAN NERVE COMPRESSION ([id number]) MR/MR wrist LT wo con: MEDIAN NERVE COMPRESSION ([id number]) XR/XR pre/post mri xray: MEDIAN NERVE COMPRESSION [...] Jose Dial M.D.07/21/2023 7:38 PM Dictation Location: [place] [address] Transcribed By: [facility] 07/21/231937 Dictated By: Jose Dial DO 07/20/23 1525 Signed By: 07/21/231937 [facility] Telephone Encounteron 2022 Crystalizer Operator Authentication Interface Message Text Spoke with patient and scheduled. Normal [facility] [employer] [facility] [employer] [facility] Telephone Encounteron 2022 Crystalizer Operator Authentication Interface Message Text Pt called as [...] she would need something sooner. Contact pt @[phone] Normal [facility] [employer] [facility] [employer] [facility] Addendum Noteon 06-16-2023 Crystalizer Operator Authentication Interface Message Text Addended by: ALIZA AGUILAR on: 06/16/2023 11:34 AM Modules accepted: Orders Normal [facility] Progress Noteson 06-16-2023 Crystalizer Operator Authentication Interface Message Text Patient Office Note [...] this patient. Aliza Aguilar MD Normal [facility] [employer] [facility] Crystalizer Operator Authentication Interface Message Text CC: Left hand pain Pain Left wrist and hand; tingling to middle and ring fingers. Pt states ganglion which was removed has returned and is painful. CMC joint painful. 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 Normal [facility] [employer] [facility] XR HAND LEFT 3 VIEWSon 06-16 [...] findings. Left hand MACRO: None Normal [facility] X[facility] Hand - left 3 Viewson [...] with the findings. Left hand MACRO: None [facility] Radiology Study observation (narrative) [facility] XR Hand - left 3 ViewsOrdere d By: Alberto Llanes on 06-16-2023 [facility] Work Phone: US DARNELL DOP LEG BILon [...] BASO # 0.1 103/ul Normal 0.0-0.1 [facility] Comment on above: Performed By: #### C BC #### [facility] [address] [place] [address] Dr. Rocio Hernandez Basophils/100 WBC (Bld) 1.0 % Normal 0.2-2.0 [facility] Comment on above: Performed By: #### C BC #### [facility] [address] [place] [address] Dr. Rocio Hernandez EO # 0.2 103/ul Normal 0.0-0.7 [facility] Comment on above: Performed By: #### C BC #### [facility] [address] [place] [address] Dr. Rocio Hernandez Eosinophils/100 WBC (Bld) 2.9 % Normal 0.9-7.0 [facility] Comment on above: Performed By: #### C BC #### [facility] [address] [place] [address] Dr. Rocio Hernandez Erythrocyte distribution width (RBC) [Ratio] 14.1 % Normal 11.0-15.0 [facility] Comment on above: Performed By: #### C BC #### [facility] [address] [place] [address] Dr. Rocio Hernandez Hematocrit (Bld) [Volume fraction] 41.2 % Normal 36.0-48.0 [facility] Comment on above: Performed By: #### C BC #### [facility] [address] [place] [address] Dr. Rocio Hernandez Hemoglobin (Bld) [Mass/Vol] 13.6 g/dL Normal 12.0-16.0 [facility] Comment on above: Performed By: #### C BC #### [facility] [address] [place] [address] Dr. Rocio Hernandez IG # 0.01 10e3/ul Normal 0.00-0.03 [facility] Comment on above: Performed By: #### C BC #### [facility] [address] [place] [address] Dr. Rocio Hernandez IG % 0.2 % Normal 0.0-0.5 [facility] Comment on above: Performed By: #### C BC #### [facility] [address] [place] [address] Dr. Rocio Hernandez LYMPH # 1.3 103/ul Normal 1.2-3.8 [facility] Comment on above: Performed By: #### C BC #### [facility] [address] [place] [address] Dr. Rocio Hernandez Lymphocytes/100 WBC (Bld) 21.9 % Normal 20.5-60.0 [facility] Comment on above: Performed By: #### C BC #### [facility] [address] [place] [address] Dr. Rocio Hernandez MANUAL DIFF REQ NO Normal [facility] Comment on above: Performed By: #### C BC #### [facility] [address] [place] [address] Dr. Rocio Hernandez MCH (RBC) [Entitic mass] 28.4 pg Normal 26.7-34.0 [facility] Comment on above: Performed By: #### C BC #### [facility] [address] [place] [address] Dr. Rocio Hernandez MCHC (RBC) [Mass/Vol] 33.0 g/dL Normal 29.9-35.2 [facility] Comment on above: Performed By: #### C BC #### [facility] [address] [place] [address] Dr. Rocio Hernandez MCV (RBC) [Entitic vol] 86.0 fL Normal 81.0-99.0 [facility] Comment on above: Performed By: #### C BC #### [facility] [address] [place] [address] Dr. Rocio Hernandez MONO # 0.6 103/ul Normal 0.3-0.8 [facility] Comment on above: Performed By: #### C BC #### [facility] [address] [place] [address] Dr. Rocio Hernandez Monocytes/100 WBC (Bld) 10.3 % Normal 1.7-12.0 [facility] Comment on above: Performed By: #### C BC #### [facility] [address] [place] [address] Dr. Rocio Hernandez NEUT # 3.8 103/ul Normal 1.4-6.5 [facility] Comment on above: Performed By: #### C BC #### [facility] [address] [place] [address] Dr. Rocio Hernandez Neutrophils/100 WBC (Bld) 63.7 % Normal 43.0-75.0 [facility] Comment on above: Performed By: #### C BC #### [facility] [address] [place] [address] Dr. Rocio Hernandez Platelet mean volume (Bld) [Entitic vol] 9.0 fL Critically low 9.5-13.5 [facility] Comment on above: Performed By: #### C BC #### [facility] [address] [place] [address] Dr. Rocio Hernandez PLT 360 103/ul Normal 150-450 [facility] Comment on above: Performed By: #### C BC #### [facility] [address] [place] [address] Dr. Rocio Hernandez RBC 4.79 106/ul Normal 4.20-5.40 [facility] Comment on above: Performed By: #### C BC #### [facility] [address] [place] [address] Dr. Rocio Hernandez WBC 5.9 103/ul Normal 4.0-11.0 [facility] Comment on above: Performed By: #### C BC #### [facility] [address] [place] [address] [address] Rocio Hernandez FREE T3on 01-12-2023 FREE T3 2.31 pg/mlL Normal 2.18-3.98 [facility] Comment on above: Performed By: #### T SH, CMP, LIPID, FT3 ####[facility] [address] [place] [address]Dr. Rocio Hernandez FREE T4on 01-12-2023 Free T4 [Mass/Vol] 1.21 ng/dL Normal 0.76-1.46 [facility] Comment on above: Performed By: #### B 12FOL, FT4 #### [facility] [address] [place] [address] [address] Rocio Hernandez GLYCOHEMOGLOBIN A1Con 2022 ADA RECOMMENDATION SEE BELOW Normal [facility] Comment on above: Result Comment: ADA RECOMMENDED LIMIT 4.0 - 6.0 ADA THERAPEUTIC TARGET < 7.0 ACTION SUGGESTED > 7.0 Performed By: #### A 1C ####[facility] [address] [place] [address]Dr. Rocio Hernandez Glucose [Mass/Vol] 123 mg/dL Normal [facility] Comment on above: Performed By: #### A 1C ####[facility] [address] [place] [id number] Hernandez HbA1c (Bld) [Mass fraction] 5.9 % Normal 4.5-6.2 [facility] Comment on above: Performed By: #### A 1C ####[facility] [address] [place] [address]Dr. Rocio Hernandez LIPID PROFILEon 01-12-2023 CHOL-HDL RATIO NORM SEE BELOW Normal [facility] Comment on above: Result Comment: 3.3 - 4.4 LOW RISK 4.4 - 7.1 AVERAGE RISK 7.1 - 11.0 MODERATE RISK >11.0 HIGH RISK Performed By: #### T SH, CMP, LIPID, FT3 #### [facility] [address] [place] [address] [address] Rocio Hernandez Cholesterol [Mass/Vol] 203 mg/dL Critically high <=200 [facility] Comment on above: Performed By: #### T SH, CMP, LIPID, FT3 #### [facility] [address] [place] [address] [address] Rocio Hernandez Cholesterol in HDL [Mass/Vol] 89 mg/dL Critically high 40-60 [facility] Comment on above: Performed By: #### T SH, CMP, LIPID, FT3 #### [facility] [address] [place] [address] [address] Rocio Hernandez Cholesterol in LDL [Mass/Vol] 87.8 mg/dL Normal [facility] Comment on above: Performed By: #### T SH, CMP, LIPID, FT3 #### [facility] [address] [place] [address] [address] Rocio Hernandez Cholesterol.total/C holesterol in HDL [Mass ratio] 2.3 {ratio} Normal [facility] Comment on above: Performed By: #### T SH, CMP, LIPID, FT3 #### [facility] [address] [place] [address] [address] Rocio Hernandez HDL NORMAL > or = 60 mg/dl - LO W CARDIOVASCULAR RISK <40 mg/dl - HIGH CARDIOVASCULAR RISK Normal [facility] Comment on above: Performed By: #### T SH, CMP, LIPID, FT3 #### [facility] [address] [place] [address] [address] Rocio Hernandez LDL CALC NORMAL SEE BELOW Normal [facility] Comment on above: Result Comment: <100 mg/dl OPTIMAL 100 - 129 mg/dl NEAR OR ABOVE OPTIMAL 130 - 159 mg/dl BORDERLINE HIGH 160 - 189 mg/dl HIGH >190 mg/dl VERY HIGH Performed By: #### T SH, CMP, LIPID, FT3 #### [facility] [address] [place] [address] [address] Rocio Hernandez Triglyceride [Mass/Vol] 131 mg/dL Normal <=150 [facility] Comment on above: Performed By: #### T SH, CMP, LIPID, FT3 #### [facility] [address] [place] [address] [address] Rocio Hernandez VLDL CALC 26.2 mg/dL Normal [facility] Comment on above: Performed By: #### T SH, CMP, LIPID, FT3 #### [facility] [address] [place] [address] [address] Rocio Hernandez MICROALB CREAT RATIO RANDOMo n 01-12-2023 mALB <1.3 Normal <=30.0 [facility] Comment on above: Performed By: #### M CRR ####[facility] [address] [place] [id number] Hernandez MALB CR RATIO 13.6 mg/g Normal 0.0-29.9 [facility] Comment on above: Performed By: #### M CRR ####[facility] [address] [place] [id number]. Rocio Hernandez MALB CR RATIO RANGE SEE BELOW Normal [facility] Comment on above: Result Comment: NO M ICROALBUMINURIA 0-29 MG/G CLINICAL MICROALBUMINURIA 30-300 MG/G MACROALBUMINURIA >300 MG/G Performed By: #### M CRR ####[facility] [address] [place] [id number]. Rocio Hernandez URINE CREAT 95.84 mg/dL Normal 20.00-300.00 [facility] Comment on above: Performed By: #### M CRR ####[facility] [address] [place] [id number]. Rocio Hernandez PROF 14(COMP METB)on 023 Albumin [Mass/Vol] 3.8 g/dL Normal 3.4-5.0 [facility] Comment on above: Performed By: #### T SH, CMP, LIPID, FT3 #### [facility] [address] [place] [address] [address] Rocio Hernandez Albumin/Globulin [Mass ratio] 0.9 {ratio} Normal [facility] Comment on above: Performed By: #### T SH, CMP, LIPID, FT3 #### [facility] [address] [place] [address] [address] Rocio Hernandez ALP [Catalytic activity/Vol] 111 U/L Normal 46-116 [facility] Comment on above: Performed By: #### T SH, CMP, LIPID, FT3 #### [facility] [address] [place] [address] [address] Rocio Hernandez ALT [Catalytic activity/Vol] 42 U/L Normal 14-59 [facility] Comment on above: Performed By: #### T SH, CMP, LIPID, FT3 #### [facility] [address] [place] [address] [address] Rocio Hernandez Anion gap [Moles/Vol] 10.8 mmol/L Normal [facility] Comment on above: Performed By: #### T SH, CMP, LIPID, FT3 #### [facility] [address] [place] [address] Dr. Rocio Hernandez AST [Catalytic activity/Vol] 24 U/L Normal 15-37 [facility] Comment on above: Performed By: #### T SH, CMP, LIPID, FT3 #### [facility] [address] [place] [address] [address] Rocio Hernandez Bilirubin [Mass/Vol] 0.4 mg/dL Normal 0.2-1.0 [facility] Comment on above: Performed By: #### T SH, CMP, LIPID, FT3 #### [facility] [address] [place] [address] [address] Rocio Hernandez Calcium [Mass/Vol] 9.6 mg/dL Normal 8.5-10.1 [facility] Comment on above: Performed By: #### T SH, CMP, LIPID, FT3 #### [facility] [address] [place] [address] [address] Rocio Hernandez Chloride [Moles/Vol] 93 mmol/L Critically low 98-107 [facility] Comment on above: Performed By: #### T SH, CMP, LIPID, FT3 #### [facility] [address] [place] [address] [address] Rocio Hernandez CO2 [Moles/Vol] 31.2 mmol/L Normal 21.0-32.0 [facility] Comment on above: Performed By: #### T SH, CMP, LIPID, FT3 #### [facility] [address] [place] [address] Dr. Rocio Hernandez Creatinine [Mass/Vol] 1.02 mg/dL Normal 0.55-1.02 [facility] Comment on above: Performed By: #### T SH, CMP, LIPID, FT3 #### [facility] [address] [place] [address] Dr. Rocio Hernandez EGFR-AF IRAQI >60 Normal >=60 [facility] Comment on above: Performed By: #### T SH, CMP, LIPID, FT3 #### [facility] [address] [place] [address] Dr. Rocio Hernandez EGFR-NON AF IRAQI 55 mL/min/1.73m2 Critically low >=60 [facility] Comment on above: Performed By: #### T SH, CMP, LIPID, FT3 #### [facility] [address] [place] [address] Dr. Rocio Hernandez Globulin (S) [Mass/Vol] 4.4 g/dL Normal [facility] Comment on above: Performed By: #### T SH, CMP, LIPID, FT3 #### [facility] [address] [place] [address] Dr. Rocio Hernandez Glucose [Mass/Vol] 102 mg/dL Normal 74-106 [facility] Comment on above: Performed By: #### T SH, CMP, LIPID, FT3 #### [facility] [address] [place] [address] Dr. Rocio Hernandez Potassium [Moles/Vol] 4.0 mmol/L Normal 3.5-5.1 The [facility] Comment on above: Performed By: #### T SH, CMP, LIPID, FT3 #### [facility] [address] [place] [address] Dr. Rocio Hernandez Protein [Mass/Vol] 8.2 g/dL Normal 6.4-8.2 [facility] Comment on above: Performed By: #### T SH, CMP, LIPID, FT3 #### [facility] [address] [place] [address] Dr. Rocio Hernandez Sodium [Moles/Vol] 131 mmol/L Critically low 136-145 [facility] Comment on above: Performed By: #### T SH, CMP, LIPID, FT3 #### [facility] [address] [place] [address] Dr. Rocio Hernandez Urea nitrogen [Mass/Vol] 6.0 mg/dL Critically low 7.0-18.0 [facility] Comment on above: Performed By: #### T SH, CMP, LIPID, FT3 #### [facility] [address] [place] [address] Dr. Rocio Hernandez Urea nitrogen/Creatinine [Mass ratio] 5.9 mg/mg Normal [facility] Comment on above: Performed By: #### T SH, CMP, LIPID, FT3 #### [facility] [address] [place] [address] Dr. Rocio Hernandez TSHon 01-12-2023 TSH 5.647 uIU/mL Critically high 0.358-3.740 [facility] Comment on above: Performed By: #### T SH, CMP, LIPID, FT3 #### [facility] [address] [place] [address] Dr. Rocio Hernandez VIT B12 AND FOLATEon 023 Cobalamin (Vitamin B12) [Mass/Vol] 1189.0 pg/mL Critically high 193.0-986.0 [facility] Comment on above: Performed By: #### B 12FOL, FT4 #### [facility] [address] [place] [address] Dr. Rocio Hernandez FOLATE 27.30 ng/mL Normal 8.60-58.90 [facility] Comment on above: Performed By: #### B 12FOL, FT4 #### [facility] [address] [place] [address] Dr. Rocio Hernandez MG MAMM SCREEN 3D TANIA CADon 12-19-2022 MG MAMM SCREEN 3D TANIA CAD Patient: MADAN PERRY Exam Date: 12/19/2022 : 1960 Gender:F Ordering : DR [place] D.O. Admission #: [id number] Family : Order #: [id number] CLICK HERE TO VIEW EXAM RADIOLOGY REPORT [...] by: RODRI FLORES Date: 2022-12-19 10:01 Normal [facility] FREE T3on 03-22-2022 FREE T3 2.43 pg/mlL Normal 2.18-3.98 [facility] Comment on above: Performed By: #### B MP, FT3, TSH ####[facility] [address] [place] [address]Dr. Rocio Hernandez FREE T4on 03-22-2022 Free T4 [Mass/Vol] 1.43 ng/dL Normal 0.76-1.46 [facility] Comment on above: Performed By: #### F T4 ####[facility] [address] [place] [address]Dr. Rocio Hernandez PROF CHEM 8 (BAS METB)on Anion gap [Moles/Vol] 10.2 mmol/L Normal [facility] Comment on above: Performed By: #### B MP, FT3, TSH ####[facility] [address] [place] [address]Dr. Rocio Hernandez Calcium [Mass/Vol] 8.8 mg/dL Normal 8.5-10.1 [facility] Comment on above: Performed By: #### B MP, FT3, TSH ####[facility] [address] [place] [address]Dr. Rocio Hernandez Chloride [Moles/Vol] 104 mmol/L Normal 98-107 [facility] Comment on above: Performed By: #### B MP, FT3, TSH ####[facility] [address] [place] [address]Dr. Rocio Hernandez CO2 [Moles/Vol] 31.7 mmol/L Normal 21.0-32.0 [facility] Comment on above: Performed By: #### B MP, FT3, TSH ####[facility] [address] [place] [address]Dr. Rocio Hernandez Creatinine [Mass/Vol] 0.96 mg/dL Normal 0.55-1.02 [facility] Comment on above: Performed By: #### B MP, FT3, TSH ####[facility] [address] [place] [address]Dr. Rocio Hernandez EGFR-AF IRAQI >60 Normal >=60 [facility] Comment on above: Performed By: #### B MP, FT3, TSH ####[facility] [address] [place] [address]Dr. Rocio Hernandez EGFR-NON AF IRAQI 59 mL/min/1.73m2 Critically low >=60 [facility] Comment on above: Performed By: #### B MP, FT3, TSH ####[facility] [address] [place] [address]Dr. Rocio Hernandez Glucose [Mass/Vol] 110 mg/dL Critically high 74-106 [facility] Comment on above: Performed By: #### B MP, FT3, TSH ####[facility] [address] [place] [address]Dr. Rocio Hernandez Potassium [Moles/Vol] 2.9 mmol/L Critically low 3.5-5.1 [facility] Comment on above: Result Comment: TEST REPEATED CRITICAL VALUE VERIFIED Performed By: #### B MP, FT3, TSH ####[facility] [address] [place] [address]Dr. Rocio Hernandez Sodium [Moles/Vol] 141 mmol/L Normal 136-145 [facility] Comment on above: Performed By: #### B MP, FT3, TSH ####[facility] [address] [place] [address]Dr. Rocio Hernandez Urea nitrogen [Mass/Vol] 12.0 mg/dL Normal 7.0-18.0 [facility] Comment on above: Performed By: #### B MP, FT3, TSH ####[facility] [address] [place] [address]Dr. Rocio Hernandez Urea nitrogen/Creatinine [Mass ratio] 12.5 mg/mg Normal [facility] Comment on above: Performed By: #### B MP, FT3, TSH ####[facility] [address] [place], [place] [address]Hm. Rocio Hernandez TSHon 03-22-2022 TSH 0.137 uIU/mL Critically low 0.358-3.740 [facility] Comment on above: Performed By: #### B MP, FT3, TSH ####[facility] [address] [place], [place] [address]Lb. Rocio Hernandez Patient Letter FTMCon 2020 Patient Letter FT (Inserted Image. Wilda ble to display) May 26, 2021 MADAN PERRY [id number] [place] [address] MADAN PERRY 1960 Dear Madan, This is a SECOND ATTEMPT to remind you that you are due for an appointment with [facility]. Please contact our office at [phone] to schedule an appointment at your earliest convenience. Thank you, [facility] Reminderson 05-26-2021 Reminders - From: Jane Onofre To: GINA - Reminders/Recalls; Sent: 01/18/2021 12:33:31 EDT Show up: 04/25/2021 12:33:00 EDT Subject: Ambulatory Reminder Due Date/Time: 06/09/2021 12:33:00 EDT Reminder/Recall sara peace 5 year colon 06/09/2021 first recall letter second rcall letter Normal [facility] Patient Letter FTMCon 2020 Patient Letter FT (Inserted Image. Wilda ble to display) May 05, 2021 MADAN PERRY [id number] [place] [address] MADAN PERRY 1960 Dear Madan, This is a reminder that you are due for an appointment with [facility]. Please contact our office at [phone] to schedule an appointment at your earliest convenience. Thank you, [facility] Vital Signs Date Time Vital Sign Value Performing Clinician Facility 05-09-2022 16:35-0400 Body height 161.29 cm Adilia Cardenasault Other [facility] Other 05-09-2022 16:35-0400 Body mass index (BMI) [Ratio] 25.63 kg/m2 Adilia Rosa M Other [facility] Other 05-09-2022 16:35-0400 Body temperature 97.8 [degF] Adilia Rosa M Other [facility] Other 05-09-2022 16:35-0400 Body weight 66.68 kg Adilia Rosa M Other [facility] Other 05-09-2022 16:35-0400 Diastolic blood pressure 79 mm[Hg] Adilia Rosa M Other [facility] Other 05-09-2022 16:35-0400 Respiratory rate 18 /min Adilia Rosa M Other [facility] Other 05-09-2022 16:35-0400 SaO2% (BldA) [Mass fraction] 98 % Adilia Rosa M Other [facility] Other 05-09-2022 16:35-0400 Systolic blood pressure 136 mm[Hg] Adilia Rosa M Other [facility] Other 07-21-2021 16:05-0400 Body height 161.29 cm Lilian Ferreira Other [facility] Other 07-21-2021 16:05-0400 Body mass index (BMI) [Ratio] 26.5 kg/m2 Lilian Ferreira Other [facility] Other 07-21-2021 16:05-0400 Body temperature 96.2 [degF] Lilian Ferreira Other [facility] Other 07-21-2021 16:05-0400 Body weight 68.95 kg Lilian Ferreira Other [facility] Other 07-21-2021 16:05-0400 Diastolic blood pressure 95 mm[Hg] Lilian Ferreira Other [facility] Other 07-21-2021 16:05-0400 Respiratory rate 18 /min Lilian Ferreira Other [facility] Other 07-21-2021 16:05-0400 SaO2% (BldA) [Mass fraction] 99 % Lilian Ferreira Other [facility] Other 07-21-2021 16:05-0400 Systolic blood pressure 132 mm[Hg] Lilian Ferreira Other [facility] Other 06-22-2021 14:20-0400 Body height 161.29 cm Adilia Cardenasault Other [facility] Other 06-22-2021 14:20-0400 Body mass index (BMI) [Ratio] 25.98 kg/m2 Adilia Rosa M Other [facility] Other 06-22-2021 14:20-0400 Body temperature 96.4 [degF] Adilia Rosa M Other [facility] Other 06-22-2021 14:20-0400 Body weight 67.59 kg Adilia Mederos Other [facility] Other 06-22-2021 14:20-0400 Diastolic blood pressure Adilia Mederos Other [facility] Other 06-22-2021 14:20-0400 Respiratory rate 18 /min Adilia Mederos Other [facility] Other 06-22-2021 14:20-0400 SaO2% (BldA) [Mass fraction] 98 % Adilia Mederos Other [facility] Other 06-22-2021 14:20-0400 Systolic blood pressure 111 mm[Hg] Adilia Mederos Other [facility] Other Encounters Encounter Date Encounter Type Care Provider Facility Start: 11-06-2023 End: 11-07-2023 ambulatory [facility] Start: 10-09-2023 End: 10-10-2023 ambulatory Meet [facility] MD [facility] Start: 08-25-2023 End: 08-25-2023 ambulatory ALIZA AGUILAR Facility:[facility] Start: 08-25-2023 End: 08-25-2023 Office outpatient visit 15 minutes Aliza Aguilar MD Work Phone: [facility] Comment on above: Hand arthritis (Prim maurisio Dx) Start: 08-21-2023 End: 08-22-2023 [facility] Start: 08-19-2023 Letter encounter Yesy Covarrubias OT Work Phone: [facility] Start: 07-31-2023 End: 08-01-2023 ambulatory [facility] MD [facility] Start: 07-24-2023 End: 07-25-2023 ambulatory Meet Harp MD Facility:[facility] Start: 07-20-2023 End: 07-20-2023 ambulatory Aliza Aguilar Facility:[facility] Start: 07-20-2023 End: 07-20-2023 ambulatory DO [place] Work Phone: [facility] Work Phone: Start: 07-20-2023 End: 07-20-2023 Patient encounter procedure DO [place] Work Phone: [facility] [address] Work Phone: Start: 07-10-2023 End: 07-11-2023 ambulatory Meet Harp MD Facility:[facility] Start: 06-16-2023 End: 06-17-2023 ambulatory UNKNOWN PROVIDER Facility:[facility] Start: 06-16-2023 End: 06-16-2023 Office outpatient visit 25 minutes Aliza Aguilar MD Work Phone: [address] [facility] Comment on above: Left hand pain (Prim maurisio Dx) Start: 06-16-2023 End: 06-16-2023 Subsequent hospital visit by physician [address] Op Op X-Ray 1 Work Phone: [address] [facility] Comment on above: Left hand pain Start: 02-07-2023 End: 02-08-[address] [place] Facility:[facility] Start: 01-27-2023 End: 01-28-[address] [place] Facility:[facility] Start: 01-23-2023 End: 02-22-2023 ambulatory SHAIKH Eduardo ROSS Facility:[facility] Start: 01-16-2023 Encounter for genera l adult medical examination without abnormal findings DR [place] [facility] Start: 01-12-2023 End: 01-13-2023 ambulatory [...] 05-09-2022 End: 05-09-2022 ambulatory Adilia Mederos Other [facility] Other Start: 05-09-2022 Office outpatient vi sit [...] encounter procedure Lilian Ferreira [facility] Start: 06-22-2021 Office outpatient vi sit 15 minutes Adilia Rosa M [facility] Procedures Date Procedure Procedure Detail Performing Clinician Start: 08-25-2023 Injection 1 tendon sheath/ligament aponeurosis Aliza Aguilar MD Work Phone: Start: 06-16-2023 Radex hand minimum 3 views Aliza Aguilar MD Work Phone: Plan of Treatment Date Care Activity Detail Author Start: 06-04-2028 Tetanus vaccination Tetanus (T d or Tdap) Booster [facility] Start: 01-13-2028 Cholesterol [Mass/volume] in Serum or Plasma [facility] Start: 08-25-2023 End: 08-25-2023 Patient encounter procedure 08/25/2023 11:30 AM EST Office Visit [address] [facility] [address] [place] [address] Aliza Aguilar MD [address] [place], [place] [id number] [facility] Start: 07-20-2023 XR pre/post mri xray XR pre/post mri xray [facility] Start: 07-20-2023 [facility] Start: 07-20-2023 MR Wrist - left WO contrast [facility] Start: 07-20-2023 MRI of left wrist MR wrist LT wo con [facility] Start: 07-20-2023 MR Hand - left WO contrast [facility] Start: 07-20-2023 MRI of left hand MR hand LT wo con [facility] Start: 06-25-2023 Influenza vaccination Influenza Vacc ine (#1) [facility] Start: 06-16-2023 End: 09-22-2024 MR Wrist - left WO contrast MR WRIST LEFT W/O Imaging Routine Left hand pain Expected: 06/16/2023, Expires: 06/16/2024 THE [employer] Work Phone: Comment on above: Expected: 06/16/2023 , Expires: 06/16/2024 Start: 05-26-2023 COVID-19 Vaccine ( season) COVID-19 Vaccine () [facility] Start: 05-26-2023 Influenza [...] [facility] Start: 1974 HIV screening HIV Test [facility] Start: 1960 COVID-19 Vaccine ( formulation) [facility] Start: 1960 Screening for malign ant neoplasm of colon Colonoscopy [facility] Immunizations Immunization Date Immunization Notes Care Provider Fa cility 08-11-2023 influenza, injectabl e, quadrivalent, preservative free Aliza Aguilar MD Work Phone: [facility] 08-11-2023 Respiratory syncytia l virus (RSV), vaccine, bivalent, protein subunit RSV prefusion F, diluent reconstituted, 0.5 mL, preservative free (FPB=016) Aliza Aguilar MD Work Phone: [facility] 06-18-2022 influenza, injectabl e, quadrivalent, preservative free Aliza Aguilar MD Work Phone: [facility] 06-18-2022 influenza virus vacc ine, unspecified formulation Aliza Aguilar MD Work Phone: [facility] 02-05-2022 Pfizer Monovalent (1 2+ yrs) SARS-COV-2 (COVID-19) vaccine, mRNA, spike protein, LNP, pres. free, 30 mcg/0.3mL dose, betito-sucrose (ZJK=209) Aliza Aguilar MD Work Phone: [facility] 08-11-2021 influenza, injectabl e, quadrivalent, preservative free Yesy Covarrubias OT Work Phone: [facility] 08-11-2021 influenza virus vacc ine, unspecified formulation Yesy Marci OT Work Phone: [facility] 07-24-2020 zoster vaccine recombinant K dengryn Marci OT Work Phone: [facility] 07-11-2020 Influenza, injectabl e, Madin Zakia Canine Kidney, preservative free, quadrivalent Yesy Marci OT Work Phone: [facility] 04-18-2020 zoster vaccine recombinant K athryn Marci OT Work Phone: [facility] 08-28-2019 Influenza, injectabl e, Madin Nodaway Canine Kidney, preservative free, quadrivalent Yesy Marci OT Work Phone: [facility] 07-01-2019 influenza, high dose seasonal, preservative-free Yesy Marci OT Work Phone: [facility] 06-25-2019 pneumococcal polysac charide vaccine, 23 valent Yesy Marci OT Work Phone: [facility] 07-06-2018 influenza, injectabl e, quadrivalent, contains preservative Yesy Marci OT Work Phone: [facility] 06-04-2018 tetanus toxoid, redu karen diphtheria toxoid, and acellular pertussis vaccine, adsorbed Yesy Marci OT Work Phone: [facility] 08-19-2017 influenza, injectabl e, quadrivalent, preservative free Yesy Marci OT Work Phone: [facility] 08-09-2017 influenza, injectabl e, quadrivalent, contains preservative Yesy Marci OT Work Phone: [facility] 08-01-2016 influenza, injectabl e, quadrivalent, preservative free Yesy Marci OT Work Phone: [facility] 07-11-2015 influenza, injectabl e, madin zakia canine kidney, preservative free Yesy Marci OT Work Phone: [facility] 07-11-2015 pneumococcal conjuga te vaccine, 13 valent Yesy Marci OT Work Phone: [facility] 08-13-2009 novel influenza-H1N1 -09, preservative-free, injectable Yesy Marci OT Work Phone: [facility] 07-17-2009 influenza virus vacc ine, unspecified formulation Yesy Marci OT Work Phone: [facility] 08-15-2008 influenza virus vacc ine, unspecified formulation Yesy Marci OT Work Phone: [facility] Payers Date Payer Category Payer Self-pay [id number] 2018 Unknown [id number] 2013 Medicare [id number] 1.13.56.2.7.3.67 [id number] 1959 Blue Cross Blue Shield [id number] 2.16.840.1.540576.19 1960 Medicare [id number] 2.16.840.1.105871.19 1959 Unknown [id number] 2.16.840.1.128169.3.579.2.593 1959 Unknown [id number] 2.16.840.1.182182.3.579.2.593 1959 Unknown [id number] 2.16.840.1.291433.3.579.2.593 1959 Unknown [id number] 2.16.840.1.219963.3.579.2.593 1959 Unknown [id number] 2.16.840.1.158641.3.579.2.593 1959 Unknown [id number] 2.16.840.1.200685.3.579.2.593 1959 Unknown [id number] 2.16.840.1.367760.3.579.2.593 1959 Unknown [id number] 2.16.840.1.599378.3.579.2.593 1959 Unknown [id number] 2.16.840.1.065390.3.579.2.593 1959 Unknown [id number] 2.16.840.1.240431.3.579.2.593 1959 Unknown [id number] 2.16.840.1.135311.3.579.2.593 1959 Unknown [id number] 2.16.840.1.681318.3.579.2.593 1959 Unknown [id number] 2.16.840.1.546182.3.579.2.593 1959 Unknown [id number] 2.16.840.1.115787.3.579.2.593 1959 Unknown [id number] 2.16.840.1.246683.3.579.2.593 1959 Unknown [id number] 2.16.840.1.725087.3.579.2.593 1959 Unknown [id number] 2.16.840.1.121987.3.579.2.593 1959 Unknown [id number] 2.16.840.1.071448.3.579.2.593 1959 Unknown [id number] 2.16.840.1.108744.3.579.2.593 1959 Unknown [id number] 2.16.840.1.339629.3.579.2.593 1959 Unknown [id number] 2.16.840.1.907330.3.579.2.732 1959 Unknown [id number] 2.16.840.1.750872.3.579.2.732 1959 Unknown [id number] 2.16.840.1.059062.3.579.2.732 1959 Unknown [id number] 2.16.840.1.360176.3.579.2.196 1959 Unknown [id number] 2.16.840.1.157923.3.579.2.196 1959 Unknown [id number] 2.16.840.1.382239.3.579.2.196 1959 Unknown [id number] 2.16.840.1.380450.3.579.2.196 1959 Unknown [id number] 2.16.840.1.145321.3.579.2.196 1959 Unknown [id number] 2.16.840.1.721740.3.579.2.196 Medicare Medicare Nonpatient [id number] Unknown [id number] 2.16.840.1.080627.3.579.2.531 Social History Date Type Detail Facility Unknown if ever smoked [facility] Other Sex Assigned At [facility] Other Start: 05-31-2019 Tobacco smoking stat 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 Patient Office Note or Post OP Note Name:Madan M Dionna Date: 08/25/2023 CC: left wrist pain at [facility] area No chief complaint on [...] of this patient. Aliza Aguilar MD Injection Procedure.[facility] 08/25/2023 [id number] Madan Perry The patient requested an injection [...] a dressing applied. documented in this encounter [facility] 06-16-2023 Note Addended by: ALIZA AGUILAR on: 06/16/2023 11:34 AM Modules accepted: Orders [facility] 06-16-2023 Miscellaneous Notes Addended by: ALIZA AGUILAR on: 06/16/2023 11:34 AM Modules accepted: Orders documented in this encounter [facility] 06-16-2023 History of Presen t illness [...] involved in care of this patient. Aliza Aguliar MD CC: Left hand pain Pain Left wrist and hand; tingling to middle and ring fingers. Pt states ganglion which was removed has returned and is painful. CMC joint painful. 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 documented in this encounter [facility] 05-09-2022 Evaluation note Encounter Date Diagnosis [...] Xray that was ordered outpatient by PCP [facility] Other 08-10-2022 NotePROCEDURE: XR FOOT RT MIN 3 VIEWS COMPARISON: None. HISTORY: Pain in right foot FINDINGS: BONES:No fracture, acute abnormality, or significant arthropathy. Mild enthesopathic spurring of the calcaneus at the Achilles insertion SOFT TISSUES:Negative. No visible soft tissue swelling. EFFUSION:None visible. OTHER: Negative. IMPRESSION: No acute abnormality Electronically authenticated by: MARTINEZ HARVEY Date: 2022-05-04 16:22[facility]10-27-2021 Evaluation note* Encounter Date Diagnosis Assessment Notes Treatment Notes Treatment Clinical Notes Jun, Swelling of left elbow (ICD-10 - M25.422) Jun, Other Patient refe rred to the ER due to swelling, ecchymosis, pain of her left elbow with no known injury. It is felt the patient needs blood work to evaluate [facility] Other 09-28-2021 Evaluation note* Encounter Date Diagnosis Assessment Notes Treatment Notes Treatment Clinical Notes May, Bee sting, undetermined intent, initial encounter (ICD-10 - T63.444A) May continue Xyzal and Benadryl as directed. [facility] Other Evaluation note* Diagnosis Left hand pain- Primary Pain in limb Left hand pain Pain in limb [facility] Diagnosis Left hand pain Pain in limb [facility]: Evaluation note* Diagnosis [...] second t roseann Hospitalization History see above [facility] Other Summary Purpose Family History No Family History Records FoundNo Family History Records FoundNo Family History Records FoundNo Family History Records FoundNo Family History Records FoundNo Family History Records Found Advance Directives No Advanced Directives Records Found Advance Directive Response Recorded Date/ Time Advance Directives No May 24th, 201 8 10:24am Reason for Referral Specialty Diagnoses / Procedures Referred By Contac t Referred To Contact Radiology Diagnoses Left hand pain Aliza Aguilar MD [address] [place] [address] Referral ID Status Reason Start Date Expiration Date Visits Requested Visits Authorized [id number] Authorized Patient Preference 06/16/2023 06/16/2024 3 3 Comments [place] home, [place], [place] Specialty Diagnoses / Procedures Referred By Contac t Referred To Contact Radiology Diagnoses Left hand pain Procedures MR WRIST LEFT W/O Aliza Aguilar MD [address] [place] [address] [address] [place] [address] Referral ID Status Reason Start Date Expiration Date V isits Requested Visits Authorized [id number] Authorized 06/16/2023 06/15/2024 1 1 Specialty Diagnoses / Procedures Referred By Contac t Referred To Contact Radiology Diagnoses Left hand pain Procedures XR HAND LEFT 3 VIEWS [facility] [address] [address] [facility] [address] [place] [address] Referral ID Status Reason Start Date Expiration Date Visits Re quested Visits Authorized [id number] Closed 06/16/2023 06/15/2024 1 1 Chief Complaint and Reason for Visit Chief Complaint median nerve karel krista Additional Source Comments INFORMATION SOURCE (unrecogn ized section and content) DATE CREATED AUTHOR 05/27/[address] [facility] DATE CREATED AUTHOR AUTHOR'S ORGANIZ ATION 03/03/2023 [facility] DATE CREATED AUTHOR AUTHOR'S ORGANIZ ATION 07/30/2023 [facility] DATE CREATED AUTHOR AUTHOR'S ORGANIZ ATION 08/28/2023 [facility] DATE CREATED AUTHOR AUTHOR'S ORGANIZ ATION 09/03/2023 [facility] DATE CREATED AUTHOR AUTHOR'S ORGANIZ ATION 11/12/2023 [facility] REASON FOR VISIT (unrecogniz ed section and content) Reason Comments Hand/finger symptoms Specialty Diagnoses / Procedures Referred By Contac t Referred To Contact Radiology Diagnoses Left hand pain Procedures XR HAND LEFT 3 VIEWS [facility] [address] [place] [address] [facility] [address] [place] [address] [place] [address] Referral ID Status Reason Start Date Expiration Date Visits Re quested Visits Authorized [id number] Closed 06/16/2023 06/15/2024 1 1 Reason Comments Hand/finger symptoms Care Teams (unrecognized sec tion and content) Upper Cutter Machine Relationship Specialty Start Date End Date Yesy Covarrubias, OT [address] [place] [address] [place] [address] Occupational Therapist Occupational Therapy 06/30/20 Aliza Aguilar MD [address] [place] [address] Physician Orthopaedic Hand Service 06/30/20 Upper Cutter Machine Relationship Specialty Start Date End Date Yesy Covarrubias OT [address] [place] [address] [place] [address] Occupational Therapist Occupational Therapy 06/30/20 Aliza Aguilar MD [address] [place] [address] Physician Orthopaedic Hand Service 06/30/20 Upper Cutter Machine Relationship Specialty Start Date End Date Yesy Covarrubias OT [address] [place] [address] Occupational Therapist Occupational Therapy 06/30/20 Aliza Aguilar MD [address] [place] [place] [address] Physician Orthopaedic Hand Service 06/30/20 Team Status: Active Member Role Status Dates [place] , DO Primary Care Provider Active Team Status: Inactive Member Role Status Dates [place] , DO Primary Care Provider Active Aliza Aguilar Attending Provider Active Upper Cutter Machine Relationship Specialty Start Date End Date Yesy Covarrubias OT [address] [place] [address] [place] [address] Occupational Therapist Occupational Therapy 06/30/20 Aliza Aguilar MD [address] [place], [place] Physician Orthopaedic Hand Service 06/30/20 Upper Cutter Machine Relationship Specialty Start Date End Date Yesy Covarrubias, OT [address] [place] [address] Occupational Therapist Occupational Therapy 06/30/20 Aliza Aguilar MD [address] [place], [place] Physician Orthopaedic Hand Service 06/30/20 Goals (unrecognized [...] BE BASED ON THE PRIMARY CLINICAL RECORDS. [facility] [employer] [facility]. provides no warranty or guarantee of the accuracy or completeness of information in this document.
--- NOTE | 2023-11-16 11:20 | P.CN_ITS ---
Consult Note: HPI Data of Consult Patient: known to practice within the last 3 years Consult date: 07/24/23 Requesting Physician: Etta Moya NP Primary Care Provider: [place], DO Consult Narrative Reason for consult: midback pain Narrative: 63yof who presents for assessment. persistent mid and low back pain. mri reviewed previously with Dr Harp, which shows multiple levels of disc bulging and stenosis, worst at t10-11 and t11-12. continues in provider directed home exercise program >6 weeks, with limited benefit. continues norco and flexeril. denies adverse med side effects. Recently underwent bilateral L1-2 L2- 3 facet medial branch block #2 with 80% improvement in pain for 1-2 hours after procedure. REMEDIOS 40% with moderate to severe pain, pain with ADLs, pain interfering with sleep and social life. Pain today 10/10 sharp aching pain without numbness tingling or weakness of BLE cc:: CC: Etta Moya NP Review of Systems ROS Narrative A ten point review of systems is negative except as noted above. Status of ROS 10 or more systems reviewed and unremark able except as noted in history and below Musculoskeletal Reports: back pain PFSH PFSH Medical History Presence of vena cava filter ?Z95.828 - Presence of other vascular implants and grafts (ICD-10) Hypertension ?I10 - Essential (primary) hypertension (ICD-10) Osteoarthritis ?M19.90 - Unspecified osteoarthritis, unspecified site (ICD-10) Hypothyroid ?E03.9 - Hypothyroidism, unspecified (ICD-10) Stage 3 chronic kidney disease ?N18.30 - Chronic kidney disease, stage 3 unspecified (ICD-10) Colitis ?K52.9 - Noninfective gastroenteritis and colitis, unspecified (ICD-10) DVT (deep venous thrombosis) ?I82.409 - Acute embolism and thrombosis of unspecified deep veins of unspecified lower extremity (ICD-10) Surgical History History of carpal tunnel release ?Z98.890 - Other specified postprocedural states (ICD-10) History of bladder suspension procedure ?Z98.890 - Other specified postprocedural states (ICD-10) ?Z87.448 - Personal history of other diseases of urinary system (ICD-10) History of hernia repair ?Z98.890 - Other specified postprocedural states (ICD-10) ?Z87.19 - Personal history of other diseases of the digestive system (ICD-10) Hx of cholecystectomy ?Z90.49 - Acquired absence of other specified parts of digestive tract (ICD- 10) H/O colonoscopy ?Z98.890 - Other specified postprocedural states (ICD-10) History of esophagogastroduodenoscopy (EGD) ?Z98.890 - Other specified postprocedural states (ICD-10) History of decompression of ulnar nerve ?Z98.890 - Other specified postprocedural states (ICD-10) History of appendectomy ?Z90.49 - Acquired absence of other specified parts of digestive tract (ICD- 10) History of hysterectomy ?Z90.710 - Acquired absence of both cervix and uterus (ICD-10) Delivery by section History of laparoscopy ?Z98.890 - Other specified postprocedural states (ICD-10) Social History Smoking status: Former smoker Meds Home Medications and Allergies Home Medications Medication Instructions Recorded Confirmed Type acyclovir 400 mg tablet 400 mg PO DAILY 06/16/23 11/06/23 History amitriptyline 100 mg tablet 100 mg PO BEDTIME 06/16/23 11/06/23 History aripiprazole 10 mg tablet 10 mg PO BEDTIME 06/16/23 11/06/23 History atorvastatin 10 mg tablet 10 mg PO QDAY 06/16/23 11/06/23 History biotin 10,000 mcg-keratin 100 mg 1 tab PO QDAY 06/16/23 11/06/23 History tablet (Biotin Plus Keratin) xhqhietsaj-kidogmhsgevsi-pcafshur 1 cap PO Q6H PRN pain 06/16/23 11/06/23 History 50 mg-300 mg-40 mg capsule cholecalciferol (vitamin D3) 50 50 mcg PO DAILY 06/16/23 11/06/23 History mcg (2,000 unit) capsule (Vitamin D3) coenzyme Q10 100 mg capsule (Co 100 mg PO BID 06/16/23 11/06/23 History Q-10) cyanocobalamin (vitamin B-12) 1,000 mcg IM .monthly 06/16/23 10/09/23 History 1,000 mcg/mL injection solution cyclobenzaprine 10 mg tablet 10 mg PO Q12H PRN muscle spasm 06/16/23 11/06/23 History fluticasone propionate 220 2 puff inhalation Q12H 06/16/23 11/06/23 History mcg/actuation HFA aerosol inhaler (Flovent HFA) folic acid 400 mcg tablet 400 mcg PO DAILY 06/16/23 11/06/23 History fremanezumab-vfrm 225 mg/1.5 mL 225 mg subcut .monthly 06/16/23 11/06/23 History subcutaneous auto-injector (Ajovy) hydrochlorothiazide 12.5 mg tablet 12.5 mg PO QDAY 06/16/23 11/06/23 History hydrocodone 5 mg-acetaminophen 325 1 tab PO Q12H PRN pain 06/16/23 11/06/23 History mg tablet hydroxyzine HCl 25 mg tablet 25 mg PO BEDTIME 06/16/23 11/06/23 History levothyroxine 125 mcg tablet 125 mcg PO .every morning 06/16/23 11/06/23 History linaclotide 72 mcg capsule 145 mcg PO QDAY 06/16/23 11/06/23 History (Linzess) lisinopril 5 mg tablet 5 mg PO QDAY 06/16/23 11/06/23 History magnesium 200 mg tablet 400 mg PO DAILY 06/16/23 11/06/23 History melatonin 10 mg capsule 10 mg PO DAILY 06/16/23 11/06/23 History montelukast 10 mg tablet 10 mg PO QDAY 06/16/23 11/06/23 History omeprazole 40 mg capsule,delayed 40 mg PO BID 06/16/23 11/06/23 History release potassium chloride 10 mEq 20 meq PO BID 06/16/23 11/06/23 History tablet,extended release(part/cryst) prasterone (dhea) 25 mg capsule 25 mg PO BID 06/16/23 11/06/23 History (DHEA) vilazodone 40 mg tablet 40 mg PO QDAY 06/16/23 11/06/23 History vit C 250 mg-vit E 90 mg-zinc 40 1 tab PO BID 06/16/23 11/06/23 History mg-copper 1 qx-hqfpox-zhvmwg capsule (PreserVision AREDS-2) warfarin 1 mg tablet 1 mg PO .qtuesday 06/16/23 11/06/23 History warfarin 2 mg tablet 2 mg PO QDAY 06/16/23 11/06/23 History zinc 50 mg capsule 50 mg PO DAILY 06/16/23 11/06/23 History alprazolam 0.25 mg tablet 0.25 mg PO DAILY PRN anxiety 07/17/23 11/06/23 History aspirin 81 mg tablet,delayed 81 mg PO DAILY 07/17/23 11/06/23 History release (Adult Aspirin Regimen) hydrocortisone 2.5 % topical cream 1 applic topical BID PRN allergic 07/17/23 11/06/23 History reaction meclizine 12.5 mg tablet 12.5 mg PO BID PRN dizziness 07/17/23 11/06/23 History ondansetron HCl 4 mg tablet 4 mg PO Q12H PRN nausea and 07/17/23 11/06/23 History vomiting baclofen 10 mg tablet 10 mg PO Q12H PRN muscle spasm 09/30/23 11/06/23 History pseudoephedrine HCl 30 mg tablet 30 mg PO DAILY 09/30/23 11/06/23 History (Sudafed) Allergies Allergy/AdvReac Type Severity Reaction Status Date / Time erythromycin base AdvReac Severe Verified 11/06/23 07:14 Penicillins AdvReac Severe Anaphylaxis Verified 11/06/23 07:14 cephalexin [From Keflex] AdvReac Intermediate Hives Verified 11/06/23 07:14 doxycycline AdvReac Intermediate Hives Verified 11/06/23 07:14 iodine AdvReac Intermediate Hives Verified 11/06/23 07:14 morphine AdvReac Intermediate Vomiting Verified 11/06/23 07:14 oxycodone [From Percocet] AdvReac Intermediate Vomiting Verified 11/06/23 07:14 ciprofloxacin [From Cipro] AdvReac Mild Hives Verified 11/06/23 07:14 novicane AdvReac Intermediate Migraine Uncoded 11/06/23 07:14 Exam Narrative Exam Narrative: Psych-alert and oriented x 3.? Attentive and appropriate, constitutionally normal, displays normal mood and affect per situation.? There are no obvious deficits in memory, reasoning, or intellect.? Skin-no obvious rashes, bruising, or erythema noted to the patient's area of pain.? Extremities-upper extremities are warm with minimal edema and palpable pulses. Thoracic - tenderness to palpation noted in the thoracic spine and paraspinal musculature.? Pain is elicited with flexion, extension, and lateral rotation of the cervical spine.? Range of motion is diminished due to pain. Facet loading maneuvers are positive.? Strength-unremarkable and within normal limits Sensory-no notable sensory deficits in the bilateral upper extremities to touch or pinprick Coordination remains intact.? Gait remains non-antalgic. Constitutional Documenting provider has reviewed patient's vital signs: yes Common normals: no apparent distress, oriented x3, healthy appearing, alert and well nourished General appearance: cooperative HENMT Common normals: normocephalic, hearing grossly normal bilaterally and moist oral mucous membranes Head and scalp: normocephalic Eye Common normals: PERRL Pupil: PERRL Neck & C-Spine Common normals: full ROM General: normal visual inspection Chest Common normals: inspection of chest normal Respiratory Common normals: normal respiratory effort, no retractions and no use of accesso ry muscles Back & Pelvis Thoracic spine/upper back: ROM limited and pain with ROM Lumbar spine/lower back: ROM limited, pain with ROM and straight leg raise negative bilaterally Other: positive facet loading, axial upper back and lower back pain without radiculopathy Extremity Common normals: normal to inspection and full ROM Neuro Common normals: oriented x3, CN's II-XII intact bilaterally, moves all extremities, no focal motor deficits, no sensory deficits noted and deep tendon reflexes 2+ bilaterally Sensorium/orientation: alert Motor exam: strength 5/5 throughout and no movement abnormalities noted Psych Common normals: mental status grossly normal, thought process normal, cooperative, affect normal, speech normal and activity/motor behavior normal Speech: normal speech Thought process: normal thought process Results Additional Findings Additional findings: I have checked an [facility]AR[facility] report on this patient today and there are no kelsie rrancies noted in the prescribing history.?? A drug screen was completed and reviewed within the last year, and if there has not been a drug screen completed we ordered one today to monitor higher risk, state monitored pain medication use. As part of providing excellent, safe, comprehensive care, the following was completed at our patient's visit: 1. A medication reconciliation and review to ensure accurate knowledge of current/active medications, including asking our patients to inform us about any sqyk-uft-mjvtduc medications or herbal remedies/nutritional supplements/alternative remedies. 2. A review to specifically ensure our patients have had annual screening for: elevated body mass index (BMI), tobacco use, screening for depression, and screening for unhealthy alcohol use. When screening is concerning, patients are provided with education and the specific recommendation to discuss the concerning health issue and treatment options with their primary care provider. Assessment and Plan Assessment and Plan (1) Lumbar spondylosis: (2) Thoracic back pain: (3) Thoracic spondylosis: (4) Thoracic stenosis: (5) Disc displacement, thoracic: Plan proceed with bilateral L1-2 L2-3 facet medial branch thermal RFA under fluoroscopy , risks vs benefits discussed continue current medication regimen, tolerating well without side effects continue TENS continue HEP as tolerated f/u 1 month after
== END 2023-11-16 10:46 | disposition home or self-care (01) ==
LOC: PM 10:45
PROVIDERS: PCP Family Medicine; Visit Provider Nurse Practitioner
DX: M47.816 Spondylosis without myelopathy or radiculopathy, lumbar region (principal); M54.6 Pain in thoracic spine; M47.814 Spondylosis without myelopathy or radiculopathy, thoracic region; M48.04 Spinal stenosis, thoracic region; M51.24 Other intervertebral disc displacement, thoracic region
CPT/HCPCS: G0463

== ENCOUNTER 2023-11-24 03:43 | Outpatient (RCR) | payer BC, MEDICARE, SELFPAY | END 2023-12-22 14:19 | disposition home or self-care (01) | LOC: MM 03:43 | PROVIDERS: PCP Family Medicine; Visit Provider Internal Medicine | DX: Z51.81 Encounter for therapeutic drug level monitoring (principal); Z79.01 Long term (current) use of anticoagulants | CPT/HCPCS: 85610; G0463 ==

== ENCOUNTER 2023-12-04 07:39 | Day surgery (SDC) | payer BC, MEDICARE, SELFPAY ==
--- OUTSIDE RECORDS SUMMARY | 2023-12-04 07:43 | XMS_ITS | CCD ---
Author Name Unknown Address [address] [place] [address] Organization [facility] Care Team Providers Care Piece Hand Name Role Phone Adilia Mederos Unavailable HannaLilian [...] CUEVAS, Yesy Unavailable Aliza Aguilar MD. Unavailable [phone] DO [place] Primary Care Provider [phone] Aliza Aguilar Attending Provider [phone] Aliza Aguilar Admitting Unavailable Aliza Aguilar [...] Acetaminophen / oxyCODONE Drug Allergy stomach upset [facility] [place] Other (3 sources) Adhesive Tape Propensity to adverse reactions rash [facility] [place] Other (2 sources) Cephalexin Drug Allergy anaphylaxis [facility] [place] Other (9 sources) Erythromycin; Translations: [ERYTHROMYCIN] Drug Allergy 02-01-20 08 Other [facility] (4 sources) Iodine; Translations: [iodine] Drug Allergy 01-31-20 13 rash [facility] (3 sources) Latex Propensity to adverse reactions rash [facility] [place] Other (3 sources) Penicillin G Benzathine Drug allergy anaphylaxis [facility] [place] Other (3 sources) Procaine Drug Allergy headaches [facility] [place] Other (2 sources) Cephalexin; Translations: [Keflex] Drug Allergy 01-31-20 13 anaphylaxis [facility] (1 source) Novocain Drug allergy Unknown [facility] [place] Other (6 sources) Acetaminophen; Translations: [ACETAMINOPHEN] Drug [...] reactions to drug 09-03-20 13 [facility]actic Shock [facility] (6 sources) Quinolones (Antibiotic); Translations: [QUINOLONES] Propensity to adverse reactions to drug 03-31-20 08 Respiratory Problems [facility] Work Phone: (6 sources) Sulfonamides (Antibiotic); Translations: [SULFA ANTIBIOTICS] Propensity to adverse reactions to drug 02-01-20 08 Rash [facility] (6 sources) Bandage Tape; Translations: [BANDAGE TAPE] Propensity to adverse reactions 09-03-20 13 Rash [facility] (6 sources) Erythromycin Base; Translations: [ERYTHROMYCIN BASE] Propensity to adverse reactions to drug 01-24-20 Other [facility] (6 sources) Iodides; Translations: [IODIDES] Propensity to adverse reactions to drug 10-31-19 14 Hives [facility] (6 sources) Other (Review Comments!); Translations: [OTHER (REVIEW COMMENTS!)] Propensity to adverse reactions to drug 07-22-20 19 Agitation [facility] Work Phone: (1 source) Ciprofloxacin Drug Allergy [facility] (1 source) Iodine (And Iodine Containting Drugs) Drug allergy (disorder) 01-31-20 13 [facility] (1 source) Latex Drug allergy (disorder) 01-31-20 13 [facility] (1 source) Morphine Drug Allergy 06-09-20 16 [facility] (1 source) Penicillins Drug allergy (disorder) 01-31-20 13 [facility] (1 source) Sulfonamides (Antibiotic) Drug allergy (disorder) 01-31-20 13 [facility] (1 source) Darvocet-N 100 Drug allergy (disorder) 01-31-20 13 [facility] (1 source) E.E.S. Drug allergy (disorder) 01-31-20 13 [facility] Medications Current Medications Medication Drug Class(es) Dates Sig (Normalized) Sig (Original) acetaminophen 300 mg / butalbital 50 mg / caffeine 40 mg oral capsule (11 sources) Barbiturate, Central Nervous System Stimulant, Methylxanthine Qaopdfiovm-LUYB-Lo ffeine 50-300-40 MG CAPS Take by mouth daily as needed. 0 Active take 1 capsule by mo [facility] every four hours Ijjpvbdyas-BJDU-Jejfygkh 50-325-40 MG 1 capsule as needed Orally every 4 hrs Not-Taking Fioricet Active acetaminophen 325 mg / HYDROcodone bitartrate 5 mg oral tablet (10 sources) Opioid Agonist take 1 tablet by mouth once hydrocodone-acetaminophen (NORCO) 5-325 mg per tablet Take 1 Tablet by mouth. 0 Active HYDROcodone-Acet aminophen 7.5-300 MG Orally Not-Taking Belle Active acyclovir 400 mg oral tablet (8 [...] by mouth daily. Followed in coumadin clinic [place], [place] 0 Active take 1 tablet by [...] 4 mg/0.1 mL nasal liquid Instill 1 [place] into one nostril (alternate sides) as needed. 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 [id number] Performed By: #### C HEM-B #### [facility] [address] [facility], [address] Chloride [Moles/Vol] 99 mmol/L Normal (98 - 107) [facility] Comment on above: Order Comment: FACIL ITY: [facility] [id number] Performed By: #### C HEM-B #### [facility] [address] [facility], [address] CO2 [Moles/Vol] 27 mmol/L Normal (22 - 30) [facility] Comment on above: Order Comment: FACIL ITY: [facility] [id number] Performed By: #### C HEM-B #### [facility] [address] [place], [address] Creatinine [Mass/Vol] 0.74 mg/dL Normal (0.52 - 1.04) [facility] on above: Order Comment: FACIL ITY: [facility] [id number] Performed By: #### C HEM-B #### [facility] [address] [place], [address] GFR- AMER 95.6 ML/M1.7 Normal (60.0 - 140.1) [facility] Comment on above: Order Comment: FACIL ITY: [facility] [id number] Performed By: #### C HEM-B #### [facility] [address] [place], [address] GFR-NON AFRIC-AMER 79.0 ML/M1.7 Normal (60.0 - 115.8) [facility] Comment on above: Order Comment: [facility] [id number] Performed By: #### C HEM-B #### [facility] [address] [facility], [address] Glucose [Mass/Vol] 100 mg/dL Normal (74 - 106) [facility] Comment on above: Order Comment: FACIL ITY: [facility] [id number] Performed By: #### C HEM-B #### [facility] [address] [place], [address] Potassium [Moles/Vol] 4.6 mmol/L Normal (3.5 - 5.1) [facility] Comment on above: Order Comment: FACIL ITY: [facility] [id number] Performed By: #### C HEM-B #### [facility] [address] [place], [address] Sodium [Moles/Vol] 136 mmol/L Low (137 - 145) [facility] Comment on above: Order Comment: FACIL ITY: [facility] [id number] Performed By: #### C HEM-B #### [facility] [address] [facility], [address] Urea nitrogen [Mass/Vol] 11 mg/dL Normal (7 - 17) [facility] Comment on above: Order Comment: FACIL ITY: [facility] [id number] Performed By: #### C HEM-B #### [facility] [address] [facility], [address] Progress Noteson 08-25-2023 [employer] Authentication Interface Message Text CC: Left hand and wrist pain Follow up after MRI done at [facility]. Normal [facility] [employer] Authentication Interface Message Text Patient Office Note or Post OP Note Name:Madan Perry Date: 08/25/2023 CC: left wrist pain at [facility] area No chief complaint on file. EXAM: [...] MD Injection Procedure.[facility] 08/25/2023 [id number] Madan Stanley Dionna The patient requested an [...] conon 023 MR wrist LT wo con [facility] Main [place] [address] [place] [id number] MRI Report Signed Patient: Madan Perry MR#: [id number] : 1960 Acct:[id number] Age/Sex: 63 / F ADM Date: 07/20/23 Loc: [facility] Room: Type: [facility] Attending Dr: Aliza Aguilar Copies to: Aliza Aguilar Ordering Provider: Aliza Aguilar Date of Service: 07/20/23 MR/MR hand LT wo con: MEDIAN NERVE COMPRESSION ([id number]) MR/MR wrist LT wo con: MEDIAN NERVE COMPRESSION ([id number]) XR/XR pre/post mri xray: MEDIAN NERVE COMPRESSION [...] Jose Dial M.D.07/21/2023 7:38 PM Dictation Location: [place] [address] Transcribed By: [facility] 07/21/231937 Dictated By: Jose Dial DO 07/20/23 1525 Signed By: 07/21/231937 [facility] Telephone Encounteron 2022 [employer] Authentication Interface Message Text Spoke with patient and scheduled. Normal [facility] Telephone Encounteron 2022 [employer] Principal Authentication Interface Message Text Pt called as [...] she would need something sooner. Contact pt @[phone] Normal [facility] Addendum Noteon 06-16-2023 [employer] Principal Authentication Interface Message Text Addended by: ALIZA AGUILAR on: 06/16/2023 11:34 AM Modules accepted: Orders Normal [facility] Progress Noteson 06-16-2023 [employer] Principal Authentication Interface Message Text Patient Office Note [...] this patient. Aliza Aguilar MD Normal [facility] [employer] Authentication Interface Message Text CC: Left hand pain Pain Left wrist and hand; tingling to middle and ring fingers. Pt states ganglion which was removed has returned and is painful. CMC joint painful. 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 Normal [facility] XR HAND LEFT 3 VIEWSon 06-16 [...] findings. Left hand MACRO: None Normal [facility] XR Hand - left 3 [...] with the findings. Left hand MACRO: None [facility] Radiology Study observation (narrative) [facility] XR Hand - left 3 ViewsOrdere d By: Alberto Llanes on 06-16-2023 [facility] Work [facility]: US DARNELL DOP LEG BILon [...] Date: 2023-01-27 17:22 Normal [facility] CBC AUTO DIFFon 01-12-2023 BASO # 0.1 103/ul Normal 0.0-0.1 [facility] Comment on above: Performed By: #### C BC #### [facility] [address] [place] [address] Dr. Rocio Hernandez Basophils/100 WBC (Bld) 1.0 % Normal 0.2-2.0 [facility] Comment on above: Performed By: #### C BC #### [facility] [address] [place] [address] Dr. Rocio Hernandez EO # 0.2 103/ul Normal 0.0-0.7 [facility] Comment on above: Performed By: #### C BC #### [facility] [address] [place] [address] Dr. Rocio Hernandez Eosinophils/100 WBC (Bld) 2.9 % Normal 0.9-7.0 [facility] Comment on above: Performed By: #### C BC #### [facility] [address] [place] [address] Dr. Rocio Hernandez Erythrocyte distribution width (RBC) [Ratio] 14.1 % Normal 11.0-15.0 [facility] Comment on above: Performed By: #### C BC #### [facility] [address] [place] [address] Dr. Rocio Hernandez Hematocrit (Bld) [Volume fraction] 41.2 % Normal 36.0-48.0 [facility] Comment on above: Performed By: #### C BC #### [facility] [address] [place] [address] Dr. Rocio Hernandez Hemoglobin (Bld) [Mass/Vol] 13.6 g/dL Normal 12.0-16.0 [facility] Comment on above: Performed By: #### C BC #### [facility] [address] [place] [address] Dr. Rocio Hernandez IG # 0.01 10e3/ul Normal 0.00-0.03 [facility] Comment on above: Performed By: #### C BC #### [facility] [address] [place] [address] Dr. Rocio Hernandez IG % 0.2 % Normal 0.0-0.5 [facility] Comment on above: Performed By: #### C BC #### [facility] [address] [place] [address] Dr. Rocio Hernandez LYMPH # 1.3 103/ul Normal 1.2-3.8 [facility] Comment on above: Performed By: #### C BC #### [facility] [address] [place] [address] Dr. Rocio Hernandez Lymphocytes/100 WBC (Bld) 21.9 % Normal 20.5-60.0 [facility] Comment on above: Performed By: #### C BC #### [facility] [address] [place] [address] Dr. Rocio Hernandez MANUAL DIFF REQ NO Normal [facility] Comment on above: Performed By: #### C BC #### [facility] [address] [place] [address] Dr. Rocio Hernandez MCH (RBC) [Entitic mass] 28.4 pg Normal 26.7-34.0 [facility] Comment on above: Performed By: #### C BC #### [facility] [address] [place] [address] Dr. Rocio Hernandez MCHC (RBC) [Mass/Vol] 33.0 g/dL Normal 29.9-35.2 [facility] Comment on above: Performed By: #### C BC #### [facility] [address] [place] [address] Dr. Rocio Hernandez MCV (RBC) [Entitic vol] 86.0 fL Normal 81.0-99.0 [facility] Comment on above: Performed By: #### C BC #### [facility] [address] [place] [address] Dr. Rocio Hernandez MONO # 0.6 103/ul Normal 0.3-0.8 [facility] Comment on above: Performed By: #### C BC #### [facility] [address] [place] [address] Dr. Rocio Hernandez Monocytes/100 WBC (Bld) 10.3 % Normal 1.7-12.0 [facility] Comment on above: Performed By: #### C BC #### [facility] [address] [place] [address] Dr. Rocio Hernandez NEUT # 3.8 103/ul Normal 1.4-6.5 [facility] Comment on above: Performed By: #### C BC #### [facility] [address] [place] [address] Dr. Rocio Hernandez Neutrophils/100 WBC (Bld) 63.7 % Normal 43.0-75.0 [facility] Comment on above: Performed By: #### C BC #### [facility] [address] [place] [address] Dr. Rocio Hernandez Platelet mean volume (Bld) [Entitic vol] 9.0 fL Critically low 9.5-13.5 [facility] Comment on above: Performed By: #### C BC #### [facility] [address] [place] [address] Dr. Rocio Hernandez PLT 360 103/ul Normal 150-450 [facility] Comment on above: Performed By: #### C BC #### [facility] [address] [place] [address] Dr. Rocio Hernandez RBC 4.79 106/ul Normal 4.20-5.40 [facility] Comment on above: Performed By: #### C BC #### [facility] [address] [place] [address] Dr. Rocio Hernandez WBC 5.9 103/ul Normal 4.0-11.0 [facility] Comment on above: Performed By: #### C BC #### [facility] [address] [place] [address] [address] Rocio Hernandez FREE T3on 01-12-2023 FREE T3 2.31 pg/mlL Normal 2.18-3.98 [facility] Comment on above: Performed By: #### T SH, CMP, LIPID, FT3 ####[facility] [address] [place] [address]Dr. Rocio Hernandez FREE T4on 01-12-2023 Free T4 [Mass/Vol] 1.21 ng/dL Normal 0.76-1.46 [facility] Comment on above: Performed By: #### B 12FOL, FT4 #### [facility] [address] [place] [address] [address] Rocio Hernandez GLYCOHEMOGLOBIN A1Con 2022 ADA RECOMMENDATION SEE BELOW Normal [facility] Comment on above: Result Comment: ADA RECOMMENDED LIMIT 4.0 - 6.0 ADA THERAPEUTIC TARGET < 7.0 ACTION SUGGESTED > 7.0 Performed By: #### A 1C ####[facility] [address] [place] [address]Dr. Rocio Hernandez Glucose [Mass/Vol] 123 mg/dL Normal [facility] Comment on above: Performed By: #### A 1C ####[facility] [address] [place] [id number] Hernandez HbA1c (Bld) [Mass fraction] 5.9 % Normal 4.5-6.2 [facility] Comment on above: Performed By: #### A 1C ####[facility] [address] [place] [address]Dr. Rocio Hernandez LIPID PROFILEon 01-12-2023 CHOL-HDL RATIO NORM SEE BELOW Normal [facility] Comment on above: Result Comment: 3.3 - 4.4 LOW RISK 4.4 - 7.1 AVERAGE RISK 7.1 - 11.0 MODERATE RISK >11.0 HIGH RISK Performed By: #### T SH, CMP, LIPID, FT3 #### [facility] [address] [place] [address] [address] Rocio Hernandez Cholesterol [Mass/Vol] 203 mg/dL Critically high <=200 [facility] Comment on above: Performed By: #### T SH, CMP, LIPID, FT3 #### [facility] [address] [place] [address] [address] Rocio Hernandez Cholesterol in HDL [Mass/Vol] 89 mg/dL Critically high 40-60 [facility] Comment on above: Performed By: #### T SH, CMP, LIPID, FT3 #### [facility] [address] [place] [address] [address] Rocio Hernandez Cholesterol in LDL [Mass/Vol] 87.8 mg/dL Normal [facility] Comment on above: Performed By: #### T SH, CMP, LIPID, FT3 #### [facility] [address] [place] [address] [address] Rocio Hernandez Cholesterol.total/C holesterol in HDL [Mass ratio] 2.3 {ratio} Normal [facility] Comment on above: Performed By: #### T SH, CMP, LIPID, FT3 #### [facility] [address] [place] [address] [address] Rocio Hernandez HDL NORMAL > or = 60 mg/dl - LO W CARDIOVASCULAR RISK <40 mg/dl - HIGH CARDIOVASCULAR RISK Normal [facility] Comment on above: Performed By: #### T SH, CMP, LIPID, FT3 #### [facility] [address] [place] [address] [address] Rocio Hernandez LDL CALC NORMAL SEE BELOW Normal [facility] Comment on above: Result Comment: <100 mg/dl OPTIMAL 100 - 129 mg/dl NEAR OR ABOVE OPTIMAL 130 - 159 mg/dl BORDERLINE HIGH 160 - 189 mg/dl HIGH >190 mg/dl VERY HIGH Performed By: #### T SH, CMP, LIPID, FT3 #### [facility] [address] [place] [address] [address] Rocio Hernandez Triglyceride [Mass/Vol] 131 mg/dL Normal <=150 [facility] Comment on above: Performed By: #### T SH, CMP, LIPID, FT3 #### [facility] [address] [place] [address] [address] Rocio Hernandez VLDL CALC 26.2 mg/dL Normal [facility] Comment on above: Performed By: #### T SH, CMP, LIPID, FT3 #### [facility] [address] [place] [address] [address] Rocio Hernandez MICROALB CREAT RATIO RANDOMo n 01-12-2023 mALB <1.3 Normal <=30.0 [facility] Comment on above: Performed By: #### M CRR ####[facility] [address] [place] [id number] Hernandez MALB CR RATIO 13.6 mg/g Normal 0.0-29.9 [facility] Comment on above: Performed By: #### M CRR ####[facility] [address] [place] [id number]. Rocio Hernandez MALB CR RATIO RANGE SEE BELOW Normal [facility] Comment on above: Result Comment: NO M ICROALBUMINURIA 0-29 MG/G CLINICAL MICROALBUMINURIA 30-300 MG/G MACROALBUMINURIA >300 MG/G Performed By: #### M CRR ####[facility] [address] [place] [id number]. Rocio Hernandez URINE CREAT 95.84 mg/dL Normal 20.00-300.00 [facility] Comment on above: Performed By: #### M CRR ####[facility] [address] [place] [id number]. Rocio Hernandez PROF 14(COMP METB)on 023 Albumin [Mass/Vol] 3.8 g/dL Normal 3.4-5.0 [facility] Comment on above: Performed By: #### T SH, CMP, LIPID, FT3 #### [facility] [address] [place] [address] [address] Rocio Hernandez Albumin/Globulin [Mass ratio] 0.9 {ratio} Normal [facility] Comment on above: Performed By: #### T SH, CMP, LIPID, FT3 #### [facility] [address] [place] [address] [address] Rocio Hernandez ALP [Catalytic activity/Vol] 111 U/L Normal 46-116 [facility] Comment on above: Performed By: #### T SH, CMP, LIPID, FT3 #### [facility] [address] [place] [address] [address] Rocio Hernandez ALT [Catalytic activity/Vol] 42 U/L Normal 14-59 [facility] Comment on above: Performed By: #### T SH, CMP, LIPID, FT3 #### [facility] [address] [place] [address] [address] Rocio Hernandez Anion gap [Moles/Vol] 10.8 mmol/L Normal [facility] Comment on above: Performed By: #### T SH, CMP, LIPID, FT3 #### [facility] [address] [place] [address] Dr. Rocio Hernandez AST [Catalytic activity/Vol] 24 U/L Normal 15-37 [facility] Comment on above: Performed By: #### T SH, CMP, LIPID, FT3 #### [facility] [address] [place] [address] [address] Rocio Hernandez Bilirubin [Mass/Vol] 0.4 mg/dL Normal 0.2-1.0 [facility] Comment on above: Performed By: #### T SH, CMP, LIPID, FT3 #### [facility] [address] [address] [address] Rocio Hernandez Calcium [Mass/Vol] 9.6 mg/dL Normal 8.5-10.1 [facility] Comment on above: Performed By: #### T SH, CMP, LIPID, FT3 #### [facility] [address] [address] [address] Rocio Hernandez Chloride [Moles/Vol] 93 mmol/L Critically low 98-107 [facility] Comment on above: Performed By: #### T SH, CMP, LIPID, FT3 #### [facility] [address] [place] [address] [address] Rocio Hernandez CO2 [Moles/Vol] 31.2 mmol/L Normal 21.0-32.0 [facility] Comment on above: Performed By: #### T SH, CMP, LIPID, FT3 #### [facility] [address] [place] [address] Dr. Rocio Hernandez Creatinine [Mass/Vol] 1.02 mg/dL Normal 0.55-1.02 [facility] Comment on above: Performed By: #### T SH, CMP, LIPID, FT3 #### [facility] [address] [place] [address] Dr. Rocio Hernandez EGFR-AF ARGENTINE >60 Normal >=60 [facility] Comment on above: Performed By: #### T SH, CMP, LIPID, FT3 #### [facility] [address] [place] [address] Dr. Rocio Hernandez EGFR-NON AF ARGENTINE 55 mL/min/1.73m2 Critically low >=60 [facility] Comment on above: Performed By: #### T SH, CMP, LIPID, FT3 #### [facility] [address] [place] [address] Dr. Rocio Hernandez Globulin (S) [Mass/Vol] 4.4 g/dL Normal [facility] Comment on above: Performed By: #### T SH, CMP, LIPID, FT3 #### [facility] [address] [place] [address] Dr. Rocio Hernandez Glucose [Mass/Vol] 102 mg/dL Normal 74-106 [facility] Comment on above: Performed By: #### T SH, CMP, LIPID, FT3 #### [facility] [address] [place] [address] Dr. Rocio Hernandez Potassium [Moles/Vol] 4.0 mmol/L Normal 3.5-5.1 [facility] Comment on above: Performed By: #### T SH, CMP, LIPID, FT3 #### [facility] [address] [place] [address] Dr. Rocio Hernandez Protein [Mass/Vol] 8.2 g/dL Normal 6.4-8.2 [facility] Comment on above: Performed By: #### T SH, CMP, LIPID, FT3 #### [facility] [address] [place] [address] Dr. Rocio Hernandez Sodium [Moles/Vol] 131 mmol/L Critically low 136-145 [facility] Comment on above: Performed By: #### T SH, CMP, LIPID, FT3 #### [facility] [address] [place] [address] Dr. Rocio Hernandez Urea nitrogen [Mass/Vol] 6.0 mg/dL Critically low 7.0-18.0 [facility] Comment on above: Performed By: #### T SH, CMP, LIPID, FT3 #### [facility] [address] [place] [address] Dr. Rocio Hernandez Urea nitrogen/Creatinine [Mass ratio] 5.9 mg/mg Normal [facility] Comment on above: Performed By: #### T SH, CMP, LIPID, FT3 #### [facility] [address] [place] [address] Dr. Rocio Hernandez TSHon 01-12-2023 TSH 5.647 uIU/mL Critically high 0.358-3.740 [facility] Comment on above: Performed By: #### T SH, CMP, LIPID, FT3 #### [facility] [address] [place] [address] Dr. Rocio Hernandez VIT B12 AND FOLATEon 023 Cobalamin (Vitamin B12) [Mass/Vol] 1189.0 pg/mL Critically high 193.0-986.0 [facility] Comment on above: Performed By: #### B 12FOL, FT4 #### [facility] [address] [place] [address] Dr. Rocio Hernandez FOLATE 27.30 ng/mL Normal 8.60-58.90 [facility] Comment on above: Performed By: #### B 12FOL, FT4 #### [facility] [address] [place] [address] Dr. Rocio Hernandez MG MAMM SCREEN 3D TANIA CADon 12-19-2022 MG MAMM SCREEN 3D TANIA CAD Patient: MADAN PERRY Exam Date: 12/19/2022 : 1960 Gender:F Ordering : DR [place] D.O. Admission #: [id number] Family : Order #: [id number] CLICK HERE TO VIEW EXAM RADIOLOGY REPORT [...] at age 54. LOCATION: [facility] BREAST COMPOSITION: Scattered areas fibroglandular density. [...] 12/19/2022 at 11:19 Normal [facility] XR DEXA BONE DENSITYon 12-19 XR [...] by: RODRI FLORES Date: 2022-12-19 10:01 Normal [facility] FREE T3on 03-22-2022 FREE T3 2.43 pg/mlL Normal 2.18-3.98 [facility] Comment on above: Performed By: #### B MP, FT3, TSH ####[facility] [address] [place] [address]Dr. Rocio Hernandez FREE T4on 03-22-2022 Free T4 [Mass/Vol] 1.43 ng/dL Normal 0.76-1.46 [facility] Comment on above: Performed By: #### F T4 ####[facility] [address] [place] [address]Dr. Rocio Hernandez PROF CHEM 8 (BAS METB)on Anion gap [Moles/Vol] 10.2 mmol/L Normal [facility] Comment on above: Performed By: #### B MP, FT3, TSH ####[facility] [address] [place] [address]Dr. Rocio Hernandez Calcium [Mass/Vol] 8.8 mg/dL Normal 8.5-10.1 [facility] Comment on above: Performed By: #### B MP, FT3, TSH ####[facility] [address] [place] [address]Dr. Rocio Hernandez Chloride [Moles/Vol] 104 mmol/L Normal 98-107 [facility] Comment on above: Performed By: #### B MP, FT3, TSH ####[facility] [address] [place] [address]Dr. Rocio Hernandez CO2 [Moles/Vol] 31.7 mmol/L Normal 21.0-32.0 [facility] Comment on above: Performed By: #### B MP, FT3, TSH ####[facility] [address] [place] [address]Dr. Rcoio Hernandez Creatinine [Mass/Vol] 0.96 mg/dL Normal 0.55-1.02 [facility] Comment on above: Performed By: #### B MP, FT3, TSH ####[facility] [address] [place] [address]Dr. Rocio Hernandez EGFR-AF ARGENTINE >60 Normal >=60 [facility] Comment on above: Performed By: #### B MP, FT3, TSH ####[facility] [address] [place] [address]Dr. Rocio Hernandez EGFR-NON AF ARGENTINE 59 mL/min/1.73m2 Critically low >=60 [facility] Comment on above: Performed By: #### B MP, FT3, TSH ####[facility] [address] [place] [address]Dr. Rocio Hernandez Glucose [Mass/Vol] 110 mg/dL Critically high 74-106 [facility] Comment on above: Performed By: #### B MP, FT3, TSH ####[facility] [address] [place] [address]Dr. Rocio Hernandez Potassium [Moles/Vol] 2.9 mmol/L Critically low 3.5-5.1 [facility] Comment on above: Result Comment: TEST REPEATED CRITICAL VALUE VERIFIED Performed By: #### B MP, FT3, TSH ####[facility] [address] [place] [address]Dr. Rocio Hernandez Sodium [Moles/Vol] 141 mmol/L Normal 136-145 [facility] Comment on above: Performed By: #### B MP, FT3, TSH ####[facility] [address] [place] [address]Dr. Rocio Hernandez Urea nitrogen [Mass/Vol] 12.0 mg/dL Normal 7.0-18.0 [facility] Comment on above: Performed By: #### B MP, FT3, TSH ####[facility] [address] [place] [address]Dr. Rocio Hernandez Urea nitrogen/Creatinine [Mass ratio] 12.5 mg/mg Normal [facility] Comment on above: Performed By: #### B MP, FT3, TSH ####[facility] [address] [place], [place] [address]Io. Rocio Hernandez TSHon 03-22-2022 TSH 0.137 uIU/mL Critically low 0.358-3.[address] [facility] Comment on above: Performed By: #### B MP, FT3, TSH ####[facility] [address] [place], [place] [address]No. Rocio Hernandez Patient Letter FTMCon 2020 Patient Letter FT (Inserted Image. Wilda ble to display) May 26, 2021 MADAN PERYR [address] [place] [address] MADAN PERRY 1960 Dear Madan, This is a SECOND ATTEMPT to remind you that you are due for an appointment with [facility]. Please contact our office at [phone] to schedule an appointment at your earliest convenience. Thank you, [facility] Reminderson 05-26-2021 Reminders - From: Jane Onofre To: GINA - Reminders/Recalls; Sent: 01/18/2021 12:33:31 EDT Show up: 04/25/2021 12:33:00 EDT Subject: Ambulatory Reminder Due Date/Time: 06/09/2021 12:33:00 EDT Reminder/Recall sara peace 5 year colon 06/09/2021 first recall letter second rcall letter Normal [facility] Patient Letter FTMCon 2020 Patient Letter FT (Inserted Image. Widla ble to display) May 05, 2021 MADAN PERRY [address] [place] [address] MADAN PERRY 1960 Dear Madan, This is a reminder that you are due for an appointment with [facility]. Please contact our office at [phone] to schedule an appointment at your earliest convenience. Thank you, [facility] Vital Signs Date Time Vital Sign Value Performing Clinician Facility 05-09-2022 16:35-0400 Body height 161.29 cm Adilia Cardenasault Other [facility] Other 05-09-2022 16:35-0400 Body mass index (BMI) [Ratio] 25.63 kg/m2 Adilia Rosa M Other [facility] Other 05-09-2022 16:35-0400 Body temperature 97.8 [degF] Adilia Rosa M Other [facility] Other 05-09-2022 16:35-0400 Body weight 66.68 kg Adilia Rosa M Other [facility] Other 05-09-2022 16:35-0400 Diastolic blood pressure 79 mm[Hg] Adilia Rosa M Other [facility] Other 05-09-2022 16:35-0400 Respiratory rate 18 /min Adilia Rosa M Other [facility] Other 05-09-2022 16:35-0400 SaO2% (BldA) [Mass fraction] 98 % Adilia Rosa M Other [facility] Other 05-09-2022 16:35-0400 Systolic blood pressure 136 mm[Hg] Adilia Rosa M Other [facility] Other 07-21-2021 16:05-0400 Body height 161.29 cm Lilian Ferreira Other [facility] Other 07-21-2021 16:05-0400 Body mass index (BMI) [Ratio] 26.5 kg/m2 Lilian Ferreira Other [facility] Other 07-21-2021 16:05-0400 Body temperature 96.2 [degF] Lilian Ferreira Other [facility] Other 07-21-2021 16:05-0400 Body weight 68.95 kg Lilian Ferreira Other [facility] Other 07-21-2021 16:05-0400 Diastolic blood pressure 95 mm[Hg] Lilian Ferreira Other [facility] Other 07-21-2021 16:05-0400 Respiratory rate 18 /min Lilian Ferreira Other [facility] Other 07-21-2021 16:05-0400 SaO2% (BldA) [Mass fraction] 99 % Lilian Ferreira Other [facility] Other 07-21-2021 16:05-0400 Systolic blood pressure 132 mm[Hg] Lilian Ferreira Other [facility] Other 06-22-2021 14:20-0400 Body height 161.29 cm Adilia Cardenasault Other [facility] Other 06-22-2021 14:20-0400 Body mass index (BMI) [Ratio] 25.98 kg/m2 Adilia Rosa M Other [facility] Other 06-22-2021 14:20-0400 Body temperature 96.4 [degF] Adilia Rosa M Other [facility] Other 06-22-2021 14:20-0400 Body weight 67.59 kg Adilia Mederos Other [facility] Other 06-22-2021 14:20-0400 Diastolic blood pressure Adilia Mederos Other [facility] Other 06-22-2021 14:20-0400 Respiratory rate 18 /min Adilia Mederos Other [facility] Other 06-22-2021 14:20-0400 SaO2% (BldA) [Mass fraction] 98 % Adilia Mederos Other [facility] Other 06-22-2021 14:20-0400 Systolic blood pressure 111 mm[Hg] Adilia Mederos Other [facility] Other Encounters Encounter Date Encounter Type Care Provider Facility Start: 11-06-2023 End: 11-07-2023 ambulatory Meet Harp MD Facility:[facility] Start: 10-09-2023 End: 10-10-2023 ambulatory Meet Harp MD Facility:[facility] Start: 08-25-2023 End: 08-25-2023 ambulatory ALIZA AGUILAR Facility:[facility] Start: 08-25-2023 End: 08-25-2023 Office outpatient visit 15 minutes Aliza Aguilar MD Work Phone: [facility] Comment on above: Hand arthritis (Prim maurisio Dx) Start: 08-21-2023 End: 08-22-2023 ambulatory [facility] Start: 08-19-2023 Letter encounter Yesy Covarrubias OT Work Phone: [facility] Start: 07-31-2023 End: 08-01-2023 ambulatory Meet Harp MD Facility:[facility] Start: 07-24-2023 End: 07-25-2023 ambulatory Meet Harp MD Facility:[facility] Start: 07-20-2023 End: 07-20-2023 ambulatory Aliza Aguilar Facility:[facility] Start: 07-20-2023 End: 07-20-2023 ambulatory DO [place] Work Phone: [facility] Work Phone: Start: 07-20-2023 End: 07-20-2023 Patient encounter procedure DO [place] Work Phone: [facility] [address] Work Phone: Start: 07-10-2023 End: 07-11-2023 ambulatory Meet Harp MD Facility:[facility] Start: 06-16-2023 End: 06-17-2023 ambulatory UNKNOWN PROVIDER Facility:[facility] Start: 06-16-2023 End: 06-16-2023 Office outpatient visit 25 minutes Aliza Aguilar MD Work Phone: [address] [facility] Comment on above: Left hand pain (Prim amurisio Dx) Start: 06-16-2023 End: 06-16-2023 Subsequent hospital visit by physician [facility] Op X-Ray 1 Work Phone: [address] [facility] Comment on above: Left hand pain Start: 02-07-2023 End: 02-08-[address] [place] Facility:[facility] Start: 01-27-2023 End: 01-28-[address] [place] Facility:[facility] Start: 01-23-2023 End: 02-22-2023 ambulatory SHAIKH Eduardo ROSS Facility:[facility] Start: 01-16-2023 Encounter for genera l adult medical examination without abnormal findings DR [place] [facility] Start: 01-12-2023 End: 01-13-[address] [...] 05-09-2022 End: 05-09-2022 ambulatory Adilia Mederos Other [facility] Other Start: 05-09-2022 Office outpatient vi sit [...] vaccination Tetanus (T d or Tdap) Booster [facility] Start: 01-13-2028 Cholesterol [Mass/volume] in Serum or Plasma [facility] Start: 08-25-2023 End: 08-25-2023 Patient encounter procedure 08/25/2023 11:30 AM EST Office Visit [address] [facility] [address] [place] [address] Aliza Aguilar MD [address] [place], [place] [id number] [facility] Start: 07-20-2023 XR pre/post mri xray XR pre/post mri xray [facility] Start: 07-20-2023 [facility] Start: 07-20-2023 MR Wrist - left WO contrast [facility] Start: 07-20-2023 MRI of left wrist MR wrist LT wo con [facility] Start: 07-20-2023 MR Hand - left WO contrast [facility] Start: 07-20-2023 MRI of left hand MR hand LT wo con F [facility] Start: 06-25-2023 Influenza vaccination Influenza Vacc ine (#1) [facility] Start: 06-16-2023 End: 09-22-2024 MR Wrist - left WO contrast MR WRIST LEFT W/O Imaging Routine Left hand pain Expected: 06/16/2023, Expires: 06/16/2024 [employer] Work Phone: Comment on above: Expected: [...] [facility] Start: 1974 HIV screening HIV Test [facility] Start: 1960 COVID-19 Vaccine ( formulation) COVID-[facility] ( [facility] Start: 1960 Screening for malign ant neoplasm of colon Colonoscopy [facility] Immunizations Immunization Date Immunization Notes Care Provider Fa cility 08-11-2023 influenza, injectabl e, quadrivalent, preservative free Aliza Aguilar MD Work Phone: [facility] 08-11-2023 Respiratory syncytia l virus (RSV), vaccine, bivalent, protein subunit RSV prefusion F, diluent reconstituted, 0.5 mL, preservative free (VMU=349) Aliza Aguilar MD Work Phone: [facility] 06-18-2022 influenza, injectabl e, quadrivalent, preservative free Aliza Aguilar MD Work Phone: [facility] 06-18-2022 influenza virus vacc ine, unspecified formulation Aliza Aguilar MD Work Phone: [facility] 02-05-2022 Pfizer Monovalent (1 2+ yrs) SARS-COV-2 (COVID-19) vaccine, mRNA, spike protein, LNP, pres. free, 30 mcg/0.3mL dose, betito-sucrose (GML=720) Aliza Aguilar MD Work Phone: [facility] 08-11-2021 influenza, injectabl e, quadrivalent, preservative free Yesy Covarrubias OT Work Phone: [facility] 08-11-2021 influenza virus vacc ine, unspecified formulation Yesy Marci OT Work Phone: [facility] 07-24-2020 zoster vaccine recombinant K dengryn Marci OT Work Phone: [facility] 07-11-2020 Influenza, injectabl e, Madin Martin Canine Kidney, preservative free, quadrivalent Yesy Marci OT Work Phone: [facility] 04-18-2020 zoster vaccine recombinant K athryn Marci OT Work Phone: [facility] 08-28-2019 Influenza, injectabl e, Madin Zakia Canine Kidney, preservative free, quadrivalent Yesy Marci OT Work Phone: [facility] 07-01-2019 influenza, high dose seasonal, preservative-free Yesy Marci OT Work Phone: [facility] 06-25-2019 pneumococcal polysac charide vaccine, 23 valent Yesy Marci OT Work Phone: [facility] 07-06-2018 influenza, injectabl e, quadrivalent, contains preservative Yesy Marci OT Work Phone: [facility] 06-04-2018 tetanus toxoid, redu karen diphtheria toxoid, and acellular pertussis vaccine, adsorbed Yesy Marci OT Work Phone: [facility] 08-19-2017 influenza, injectabl e, quadrivalent, preservative free Yesy Marci OT Work Phone: [facility] 08-09-2017 influenza, injectabl e, quadrivalent, contains preservative Yesy Marci OT Work Phone: [facility] 08-01-2016 influenza, injectabl e, quadrivalent, preservative free Yesy Marci OT Work Phone: [facility] 07-11-2015 influenza, injectabl e, madin zakia canine kidney, preservative free Yesy Marci OT Work Phone: [facility] 07-11-2015 pneumococcal conjuga te vaccine, 13 valent Yesy Marci OT Work Phone: [facility] 08-13-2009 novel influenza-H1N1 -09, preservative-free, injectable Yesy Marci OT Work Phone: [facility] 07-17-2009 influenza virus vacc ine, unspecified formulation Yesy Marci OT Work Phone: [facility] 08-15-2008 influenza virus vacc ine, unspecified formulation Yesy Marci OT Work Phone: [facility] Payers Date Payer Category Payer Self-pay [id number] 2018 Unknown [id number] 2013 Medicare [id number] 1.13.56.2.7.3.67 [id number] 1959 Blue Cross Blue Shield [id number] 2.16.840.1.908200.19 1960 Medicare [id number] 2.16.840.1.711702.19 1959 Unknown [id number] 2.16.840.1.356009.3.579.2.593 1959 Unknown [id number] 2.16.840.1.505841.3.579.2.593 1959 Unknown [id number] 2.16.840.1.560903.3.579.2.593 1959 Unknown [id number] 2.16.840.1.709160.3.579.2.593 1959 Unknown [id number] 2.16.840.1.232357.3.579.2.593 1959 Unknown [id number] 2.16.840.1.004973.3.579.2.593 1959 Unknown [id number] 2.16.840.1.874612.3.579.2.593 1959 Unknown [id number] 2.16.840.1.449838.3.579.2.593 1959 Unknown [id number] 2.16.840.1.046213.3.579.2.593 1959 Unknown [id number] 2.16.840.1.980221.3.579.2.593 1959 Unknown [id number] 2.16.840.1.326943.3.579.2.593 1959 Unknown [id number] 2.16.840.1.907397.3.579.2.593 1959 Unknown [id number] 2.16.840.1.918264.3.579.2.593 1959 Unknown [id number] 2.16.840.1.276008.3.579.2.593 1959 Unknown [id number] 2.16.840.1.565316.3.579.2.593 1959 Unknown [id number] 2.16.840.1.612621.3.579.2.593 1959 Unknown [id number] 2.16.840.1.823179.3.579.2.593 1959 Unknown [id number] 2.16.840.1.322808.3.579.2.593 1959 Unknown [id number] 2.16.840.1.966457.3.579.2.593 1959 Unknown [id number] 2.16.840.1.366290.3.579.2.593 1959 Unknown [id number] 2.16.840.1.645139.3.579.2.732 1959 Unknown [id number] 2.16.840.1.243497.3.579.2.732 1959 Unknown [id number] 2.16.840.1.409942.3.579.2.732 1959 Unknown [id number] 2.16.840.1.638356.3.579.2.196 1959 Unknown [id number] 2.16.840.1.643576.3.579.2.196 1959 Unknown [id number] 2.16.840.1.396434.3.579.2.196 1959 Unknown [id number] 2.16.840.1.387609.3.579.2.196 1959 Unknown [id number] 2.16.840.1.628909.3.579.2.196 1959 Unknown [id number] 2.16.840.1.036773.3.579.2.196 Medicare Medicare Nonpatient [id number] Unknown [id number] 2.16.840.1.496750.3.579.2.531 Social History Date Type Detail Facility Unknown if ever smoked [facility] Other Sex Assigned At [facility] Other Start: 05-31-2019 Tobacco smoking stat [facility] Ex-smoker [facility] History of tobacco use [facility] Start: 05-31-2019 Tobacco use and exposure Smokeless tobacco non-user [facility] Start: 04-07-2020 Alcohol intake Lifetime non-d han (finding) [facility] Start: 07-09-2019 History SDOH Alcohol Frequency 1 [facility] Start: 1960 Sex Assigned At Not on file [facility] Start: 1960 Sex Assigned At Female F 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 documented in this encounter [facility] 06-16-2023 Note Addended by: ALIZA AGUILAR on: 06/16/2023 11:34 AM Modules accepted: Orders [facility] 06-16-2023 Miscellaneous Notes Addended by: ALIZA AGUILAR on: 06/16/2023 11:34 AM Modules accepted: Orders documented in this encounter [facility] 06-16-2023 History of Presen t illness [...] continues on coumadin. documented in this encounter [facility] 05-09-2022 Evaluation note Encounter Date Diagnosis [...] Xray that was ordered outpatient by PCP [facility] Other 08-10-2022 NotePROCEDURE: XR FOOT RT MIN 3 VIEWS COMPARISON: None. HISTORY: Pain in right foot FINDINGS: BONES:No fracture, acute abnormality, or significant arthropathy. Mild enthesopathic spurring of the calcaneus at the Achilles insertion SOFT TISSUES:Negative. No visible soft tissue swelling. EFFUSION:None visible. OTHER: Negative. IMPRESSION: No acute abnormality Electronically authenticated by: MARTINEZ HARVEY Date: 2022-05-04 16:22[facility]10-27-2021 Evaluation note* Encounter Date Diagnosis Assessment Notes Treatment Notes Treatment Clinical Notes Jun, Swelling of left elbow (ICD-10 - M25.422) Jun, Other Patient refe rred to the ER due to swelling, ecchymosis, pain of her left elbow with no known injury. It is felt the patient needs blood work to evaluate [facility] Other 09-28-2021 Evaluation note* Encounter Date Diagnosis Assessment Notes Treatment Notes Treatment Clinical Notes May, Bee sting, undetermined intent, initial encounter (ICD-10 - T63.444A) May continue Xyzal and Benadryl as directed. [facility] Other Evaluation note* Diagnosis Left hand pain- Primary Pain in limb Left hand pain Pain in limb [facility] Diagnosis Left hand pain Pain in limb [facility]: Evaluation note* Diagnosis [...] second t roseann Hospitalization History see above [facility] Other Summary Purpose Family History No Family [...] Diagnoses Left hand pain Aliza Aguilar MD [address] [place] [address] Referral ID Status Reason Start Date Expiration Date Visits Requested Visits Authorized [id number] Authorized Patient Preference 06/16/2023 06/16/2024 3 3 Comments Near home, [place], [place] Specialty Diagnoses / Procedures Referred By Contac t Referred To Contact Radiology Diagnoses Left hand pain Procedures MR WRIST LEFT W/O Aliza Aguilar MD [address] [place] [address] [address] MRI [address] [place] [address] Referral ID Status Reason Start Date Expiration Date V isits Requested Visits Authorized [id number] Authorized 06/16/2023 06/15/2024 1 1 Specialty Diagnoses / Procedures Referred By Contac t Referred To Contact Radiology Diagnoses Left hand pain Procedures XR HAND LEFT 3 VIEWS [facility] [address] [address] [facility] RADIOLOG[facility] [address] [place] [address] Referral ID Status Reason Start Date Expiration Date Visits Re quested Visits Authorized [id number] Closed 06/16/2023 06/15/2024 1 1 Chief Complaint and Reason for Visit Chief Complaint median nerve karel krista Additional Source Comments INFORMATION SOURCE (unrecogn ized section and content) DATE CREATED AUTHOR 05/27/2021 Antonio Jose [facility] DATE CREATED AUTHOR AUTHOR'S ORGANIZ ATION 03/03/[address] [facility] DATE CREATED AUTHOR AUTHOR'S ORGANIZ ATION 07/30/2023 [facility] DATE CREATED AUTHOR AUTHOR'S ORGANIZ ATION 08/28/2023 [facility] DATE CREATED AUTHOR AUTHOR'S ORGANIZ ATION 09/03/2023 [facility] DATE CREATED AUTHOR AUTHOR'S ORGANIZ ATION 11/30/2023 [facility] REASON FOR VISIT (unrecogniz ed section and content) Reason Comments Hand/finger symptoms Specialty Diagnoses / Procedures Referred By Contac t Referred To Contact Radiology Diagnoses Left hand pain Procedures XR HAND LEFT 3 VIEWS [facility] [address] [place] [address] [facility] DI[facility]STIC RADIOLOGY [address] [place] [address] [place] [address] Referral ID Status Reason Start Date Expiration Date Visits Re quested Visits Authorized [id number] Closed 06/16/2023 06/15/2024 1 1 Reason Comments Hand/finger symptoms Care Teams (unrecognized sec tion and content) Piece Hand Relationship Specialty Start Date End Date Yesy Covarrubias, OT [address] [place] [address] [place] [address] Occupational Therapist Occupational Therapy 06/30/20 Aliza Aguilar MD [address] [place] [address] Physician Orthopaedic Hand Service 06/30/20 Piece Hand Relationship Specialty Start Date End Date Yesy Covarrubias OT [address] [place] [address] [place] [address] Occupational Therapist Occupational Therapy 06/30/20 Aliza Aguilar MD [address] [place] [address] Physician Orthopaedic Hand Service 06/30/20 Piece Hand Relationship Specialty Start Date End Date Yesy Covarrubias OT [address] [place] [address] [place], [place] Occupational Therapist Occupational Therapy 06/30/20 Aliza Aguilar MD [address] [place] [address] Physician Orthopaedic Hand Service 06/30/20 Team Status: Active Member Role Status Dates [place] , DO Primary Care Provider Active Team Status: Inactive Member Role Status Dates [place] , DO Primary Care Provider Active Aliza Aguilar Attending Provider Active Piece Hand Relationship Specialty Start Date End Date Yesy Covarrubias OT 55 [place] [address] [place] [address] Occupational Therapist Occupational Therapy 06/30/20 Aliza Aguilar MD [address] [place], [place] Physician Orthopaedic Hand Service 06/30/20 Piece Hand Relationship Specialty Start Date End Date Yesy Covarrubias, [address] [place] [address] Occupational Therapist Occupational Therapy 06/30/20 Aliza Aguilar MD [address], [place] Physician Orthopaedic Hand Service 06/30/20 Goals [...] BE BASED ON THE PRIMARY CLINICAL RECORDS. [facility] [employer] [facility]. provides no warranty or guarantee of the accuracy or completeness of information in this document.
[2023-12-04 08:02] LABS: INR 1.67; Prothrombin Time 17.2 sec (9.0-11.6)
[2023-12-04 08:11] VITALS: BP 108/71; PULSE 91; RESP 16; TEMP 36.2; O2SAT 99
[2023-12-04 08:59] VITALS: BP 126/59; PULSE 93; RESP 18; O2SAT 97
[2023-12-04] MEDS: BUPIVACAINE HCL 0.25% PF 25 MG/10 ML VIAL INJ (09:08)
[2023-12-04] MEDS: LIDOCAINE HCL 2% 400 MG/20 ML MDV 15 ML INJ (09:08)
[2023-12-04] MEDS: TRIAMCINOLONE ACETONIDE 40 MG/ML VIAL INJ (09:09)
[2023-12-04 09:11] VITALS: BP 83/49; PULSE 72; RESP 18; O2SAT 92
--- NOTE | 2023-12-04 09:14 | P.ON_ITS ---
Date of procedure: 12/04/23 Pre-op diagnosis: Lumbar spondylosis Post-op diagnosis: same as pre-op Procedure: Procedure: Bilateral L1-2, L2-3 radiofrequency ablation Medications: Bupivacaine 0.25% 6cc, lidocaine 2% 5cc, kenalog 80mg The patient was seen and examined in the preoperative holding area.? The site was marked.? Written informed consent was obtained and placed on the chart.? The patient was brought to the medical procedure unit and placed in the prone position.? A timeout was completed verifying correct patient, procedure, positioning, and special requirements.? The skin overlying the target points, the designated medial branch, were prepped and draped in the usual sterile fashion.? The target point was achieved with a 20-gauge 15 cm with a 10 mm curved active tip radiofrequency cannula under direct fluoroscopic visualization.? The needle was inserted at level L4 on the right side. Needle tip position was confirmed with lateral fluoroscopic position.? Motor stimulation was carried out at 2 Hz up to 5 volts with the absence of extremity activity.? This was repeated at level L5, S1 on right side.?? Sensory stimulation was carried out.? Concordant pain was realized at the above- mentioned sites.? Then radiofrequency lesioning was carried out times 90 seconds at 80 degrees times 2 lesions at each level.? The radiofrequency probe was removed prior to cannula removal.? The above-mentioned injectate was placed in 1 mL increments.? The needle was removed. The same procedure, with the same steps, was then completed on the left side at the same levels. Insertion sites were covered.? The patient was taken to the postoperative recovery area and monitored for an appropriate length of time before being found suitable for discharge in the company of a responsible adult. Surgeon: Meet Harp Pathology: none sent Condition: stable Disposition: no change
--- NOTE | 2023-12-04 09:19 | PC.NURSE ---
105/69 BP recheck in postop due to hypotensive in room. Pt reports dizziness is resolving.
== END 2023-12-04 09:20 | disposition home or self-care (01) ==
PROVIDERS: PCP Family Medicine; Visit Provider Anesthesiology
DX: M47.816 Spondylosis without myelopathy or radiculopathy, lumbar region (principal); Z79.01 Long term (current) use of anticoagulants
CPT/HCPCS: 36415; 64635; 64636; 85610

== ENCOUNTER 2023-12-25 03:29 | Outpatient (RCR) | payer BC, MEDICARE, SELFPAY | END 2024-01-23 18:16 | disposition home or self-care (01) | LOC: MM 03:29 | PROVIDERS: PCP Family Medicine; Visit Provider Internal Medicine | DX: Z51.81 Encounter for therapeutic drug level monitoring (principal); Z79.01 Long term (current) use of anticoagulants | CPT/HCPCS: 85610; G0463 ==

== ENCOUNTER 2023-12-27 10:00 | Outpatient (OUT) | payer BC, MEDICARE, SELFPAY ==
--- NOTE | 2023-12-27 10:09 | P.CN_ITS ---
Consult Note: HPI Data of Consult Patient: known to practice within the last 3 years Consult date: 07/24/23 Requesting Physician: Etta Moya NP Primary Care Provider: [place], Consult Narrative Reason for consult: midback pain Narrative: 63yof who presents for assessment. persistent mid and low back pain. mri reviewed previously with Dr Harp, which shows multiple levels of disc bulging and stenosis, worst at t10-11 and t11-12. continues in provider directed home exercise program >6 weeks, with limited benefit. continues norco and flexeril. denies adverse med side effects. Recently underwent bilateral L1-2 L2- 3 facet RFA with significant improvement on right side, no improvement on left side. Failed to benefit from thoracic TFESIs in the past. Pain today 10/10 sharp aching pain without numbness tingling or weakness of BLE. cc:: CC: tEta Moya NP Review of Systems ROS Narrative A ten point review of systems is negative except as noted above. Status of ROS 10 or more systems reviewed and unremark able except as noted in history and below Musculoskeletal Reports: back pain PFSH PFSH Medical History Presence of vena cava filter ?Z95.828 - Presence of other vascular implants and grafts (ICD-10) Hypertension ?I10 - Essential (primary) hypertension (ICD-10) Osteoarthritis ?M19.90 - Unspecified osteoarthritis, unspecified site (ICD-10) Hypothyroid ?E03.9 - Hypothyroidism, unspecified (ICD-10) Stage 3 chronic kidney disease ?N18.30 - Chronic kidney disease, stage 3 unspecified (ICD-10) Colitis ?K52.9 - Noninfective gastroenteritis and colitis, unspecified (ICD-10) DVT (deep venous thrombosis) ?I82.409 - Acute embolism and thrombosis of unspecified deep veins of un specified lower extremity (ICD-10) Surgical History History of carpal tunnel release ?Z98.890 - Other specified postprocedural states (ICD-10) History of bladder suspension procedure ?Z98.890 - Other specified postprocedural states (ICD-10) ?Z87.448 - Personal history of other diseases of urinary system (ICD-10) History of hernia repair ?Z98.890 - Other specified postprocedural states (ICD-10) ?Z87.19 - Personal history of other diseases of the digestive system (ICD-10) Hx of cholecystectomy ?Z90.49 - Acquired absence of other specified parts of digestive tract (ICD- 10) H/O colonoscopy ?Z98.890 - Other specified postprocedural states (ICD-10) History of esophagogastroduodenoscopy (EGD) ?Z98.890 - Other specified postprocedural states (ICD-10) History of decompression of ulnar nerve ?Z98.890 - Other specified postprocedural states (ICD-10) History of appendectomy ?Z90.49 - Acquired absence of other specified parts of digestive tract (ICD- 10) History of hysterectomy ?Z90.710 - Acquired absence of both cervix and uterus (ICD-10) Delivery by section History of laparoscopy ?Z98.890 - Other specified postprocedural states (ICD-10) Social History Smoking status: Former smoker Meds Home Medications and Allergies Home Medications ?Medication ?Instructions ?Recorded ?Confirmed ?Type acyclovir 400 mg tablet 400 mg PO DAILY 06/16/23 12/04/23 History amitriptyline 100 mg tablet 100 mg PO BEDTIME 06/16/23 12/04/23 History aripiprazole 10 mg tablet 10 mg PO BEDTIME 06/16/23 12/04/23 History atorvastatin 10 mg tablet 10 mg PO QDAY 06/16/23 12/04/23 History biotin 10,000 mcg-keratin 100 mg 1 tab PO QDAY 06/16/23 12/04/23 History tablet (Biotin Plus Keratin) zwmjxcushm-fybmchwvlzpjh-pyqyqgjt 1 cap PO Q6H PRN pain 06/16/23 12/04/23 History 50 mg-300 mg-40 mg capsule cholecalciferol (vitamin D3) 50 50 mcg PO DAILY 06/16/23 12/04/23 History mcg (2,000 unit) capsule (Vitamin D3) coenzyme Q10 100 mg capsule (Co 100 mg PO BID 06/16/23 12/04/23 History Q-10) cyanocobalamin (vitamin B-12) 1,000 mcg IM .monthly 06/16/23 12/04/23 History 1,000 mcg/mL injection solution cyclobenzaprine 10 mg tablet 10 mg PO Q12H PRN muscle spasm 06/16/23 12/04/23 History fluticasone propionate 220 2 puff inhalation Q12H 06/16/23 12/04/23 History mcg/actuation HFA aerosol inhaler (Flovent HFA) folic acid 400 mcg tablet 400 mcg PO DAILY 06/16/23 12/04/23 History fremanezumab-vfrm 225 mg/1.5 mL 225 mg subcut .monthly 06/16/23 12/04/23 History subcutaneous auto-injector (Ajovy) hydrochlorothiazide 12.5 mg tablet 12.5 mg PO QDAY 06/16/23 12/04/23 History hydrocodone 5 mg-acetaminophen 325 1 tab PO Q12H PRN pain 06/16/23 12/04/23 History mg tablet hydroxyzine HCl 25 mg tablet 25 mg PO BEDTIME 06/16/23 12/04/23 History levothyroxine 125 mcg tablet 125 mcg PO .every morning 06/16/23 12/04/23 History linaclotide 72 mcg capsule 145 mcg PO QDAY 06/16/23 12/04/23 History (Linzess) lisinopril 5 mg tablet 5 mg PO QDAY 06/16/23 12/04/23 History magnesium 200 mg tablet 400 mg PO DAILY 06/16/23 12/04/23 History melatonin 10 mg capsule 10 mg PO DAILY 06/16/23 12/04/23 History montelukast 10 mg tablet 10 mg PO QDAY 06/16/23 12/04/23 History omeprazole 40 mg capsule,delayed 40 mg PO BID 06/16/23 12/04/23 History release potassium chloride 10 mEq 20 meq PO BID 06/16/23 12/04/23 History tablet,extended release(part/cryst) prasterone (dhea) 25 mg capsule 25 mg PO BID 06/16/23 12/04/23 History (DHEA) vilazodone 40 mg tablet 40 mg PO QDAY 06/16/23 12/04/23 History vit C 250 mg-vit E 90 mg-zinc 40 1 tab PO BID 06/16/23 12/04/23 History mg-copper 1 dx-yghzrv-rptepd capsule (PreserVision AREDS-2) warfarin 1 mg tablet 1 mg PO .qtuesday 06/16/23 12/04/23 History warfarin 2 mg tablet 2 mg PO QDAY 06/16/23 12/04/23 History zinc 50 mg capsule 50 mg PO DAILY 06/16/23 12/04/23 History aspirin 81 mg tablet,delayed 81 mg PO DAILY 07/17/23 12/04/23 History release (Adult Aspirin Regimen) hydrocortisone 2.5 % topical cream 1 applic topical BID PRN allergic 07/17/23 12/04/23 History reaction meclizine 12.5 mg tablet 12.5 mg PO BID PRN dizziness 07/17/23 12/04/23 History ondansetron HCl 4 mg tablet 4 mg PO Q12H PRN nausea and 07/17/23 12/04/23 History vomiting pseudoephedrine HCl 30 mg tablet 30 mg PO DAILY 09/30/23 12/04/23 History (Sudafed) Allergies Allergy/AdvReac Type Severity Reaction Status Date / Time erythromycin base AdvReac Severe Verified 12/04/23 08:15 Penicillins AdvReac Severe Anaphylaxis Verified 12/04/23 08:15 cephalexin [From Keflex] AdvReac Intermediate Hives Verified 12/04/23 08:15 doxycycline AdvReac Intermediate Hives Verified 12/04/23 08:15 iodine AdvReac Intermediate Hives Verified 12/04/23 08:15 morphine AdvReac Intermediate Vomiting Verified 12/04/23 08:15 oxycodone [From Percocet] AdvReac Intermediate Vomiting Verified 12/04/23 08:15 ciprofloxacin [From Cipro] AdvReac Mild Hives Verified 12/04/23 08:15 novicane AdvReac Intermediate Migraine Uncoded 12/04/23 08:15 Exam Narrative Exam Narrative: Psych-alert and oriented x 3.? Attentive and appropriate, constitutionally normal, displays normal mood and affect per situation.? There are no obvious deficits in memory, reasoning, or intellect.? Skin-no obvious rashes, bruising, or erythema noted to the patient's area of pain.? Extremities-upper extremities are warm with minimal edema and palpable pulses. Thoracic - tenderness to palpation noted in the thoracic spine and paraspinal musculature.?left greater than right Pain is elicited with flexion, extension, and lateral rotation of the cervical spine.? Range of motion is diminished due to pain. Facet loading maneuvers are positive.? Strength-unremarkable and within normal limits Sensory-no notable sensory deficits in the bilateral upper extremities to touch or pinprick Coordination remains intact.? Gait remains non-antalgic. Constitutional Documenting provider has reviewed patient's vital signs: yes Common normals: no apparent distress, oriented x3, healthy appearing, alert and well nourished General appearance: cooperative HENMT Common normals: normocephalic, hearing grossly normal bilaterally and moist oral mucous membranes Head and scalp: normocephalic Eye Common normals: PERRL Pupil: PERRL Neck & C-Spine Common normals: full ROM General: normal visual inspection Chest Common normals: inspection of chest normal Respiratory Common normals: normal respiratory effort, no retractions and no use of accessory muscles Back & Pelvis Thoracic spine/upper back: ROM limited, pain with ROM, paraspinal muscle tenderness and paraspinal muscle spasm Lumbar spine/lower back: ROM limited, pain with ROM, paraspinal muscle tenderness, paraspinal muscle spasm and straight leg raise negative bilaterally Extremity Common normals: normal to inspection and full ROM Neuro Common normals: oriented x3, CN's II-XII intact bilaterally, moves all extremities, no focal motor deficits, no sensory deficits noted and deep tendon reflexes 2+ bilaterally Sensorium/orientation: alert Motor exam: strength 5/5 throughout and no movement abnormalities noted Psych Common normals: mental status grossly normal, thought process normal, cooperative, affect normal, speech normal and activity/motor behavior normal Speech: normal speech Thought process: normal thought process Results Additional Findings Additional findings: If on a controlled substance or opioids, I have checked an [place] report on this patient and there are no aberrancies noted in the prescribing history.??If on a controlled substance or opioid a drug screen was completed and reviewed within the last year, and if there has not been a drug screen completed we ordered one today to monitor higher risk, state monitored pain medication use. As part of providing excellent, safe, comprehensive care, the following was completed at our patient's visit: 1. A medication reconciliation and review to ensure accurate knowledge of current/active medications, including asking our patients to inform us about any [id number] medications or herbal remedies/nutritional supplements/alternative remedies. 2. A review to specifically ensure our patients have had annual screening for screening for depression, screening for tobacco use, and screening for unhealthy alcohol use. For concerning screenings had a discussion with the patient, provided patient education, and recommended follow-up with primary care provider when appropriate. If patient noted with a risk of falling, they received education on strength, gait, and balance training to prevent future risk of falling. Assessment and Plan Assessment and Plan (1) Lumbar spondylosis: (2) Thoracic back pain: (3) Thoracic spondylosis: (4) Thoracic stenosis: (5) Disc displacement, thoracic: Plan left paralumbar/parathoracic TPI injections x3 [address] Harp education provided on spinal cord stimulator trial, unfortunately with combined thoracic and lumbar pain with mixed etiology and insurance not covering thoracic facet blocks/RFAs and pts previous unresponsiveness to thoracic TFESIs I believe this is the next best recommendation. Patient would like to think about this. continue current medication regimen, tolerating well without side effects continue lidocaine patches continue TENS continue HEP as tolerated f/u with Dr Harp
--- OUTSIDE RECORDS SUMMARY | 2023-12-27 10:19 | XMS_ITS | CCD ---
Author Organization [facility] Care Team Providers Care Real Estate Valuer Name Role Phone Adilia Mederos Unavailable Lilian Ferreira Unavailable Yesy Covarurbias OT Unavailable Aliza Aguilar MD Unavailable [phone] [place], DR TANK Aguillon Primary Care Unavailable [...] Unavailable ABBAS, DR RASMUSSEN Attending Unavailable NEFCY, LOUIS Consulting Unavailable LAKE, DR TANK Aguillon Consulting Unavailable LAKE, DR TANK Aguillon Attending Unavailable LAKE, DR TANK Aguillon Admitting Unavailable LAKE, DR TANK Aguillon Primary Care Unavailable FAWWAD, DUARTE H Admitting Unavailable LAKE, DR TANK Aguillon Primary Care Unavailable FAWWAD, DUARTE H Attending Unavailable LAKE, DR TANK Aguillon Attending Unavailable LAKE, DR TANK Aguillon Primary Care Unavailable LAKE, DR TANK Aguillon Admitting Unavailable FAWWAD, DUARTE H Admitting Unavailable [...] DR TANK Aguillon Primary Care Unavailable Marci OT, Yesy Unavailable Aliza Aguilar MD. Unavailable DO [place] Primary Care Provider [phone] Aliza Aguilar Attending Provider Aliza Aguilar Admitting Unavailable Aliza Aguilar Attending Unavailable [place] [facility] Unavailable PROVIDER, UNKNOWN Admitting Unavailable PROVIDER, UNKNOWN Attending Unavailable PROVIDER, UNKNOWN Attending Unavailable PROVIDER, UNKNOWN Admitting Unavailable ALIZA AGUILAR Referring Unavailable PROVIDER, UNKNOWN Admitting Unavailable PROVIDER, UNKNOWN Attending Unavailable Giedraitis , Andsilvana Shipley Attending Unavailable Giedraitis MD, Andsilvana Shipley Attending Unavailable Giedraitis MD, Andrius Shipley Attending Unavailable Giedraitis MD, Andrius Shipley Attending Unavailable Giedraitis MD, Andrius Shipley Attending Unavailable Giedraitis MD, Andrius Shipley Attending Unavailable Giedraitis , Andrius Shipley Attending Unavailable Allergies Allergy Classification Reported Allergen(s) Allergy Type Date of Onset Reaction(s) Facility (3 sources) Acetaminophen / oxyCODONE Drug Allergy stomach upset [facility] Other (3 sources) Adhesive Tape Propensity to adverse reactions rash [facility] Other (2 sources) Cephalexin Drug Allergy anaphylaxis [facility] Other (9 sources) Erythromycin; Translations: [ERYTHROMYCIN] Drug Allergy 02-01-20 08 Other [facility] (4 sources) Iodine; Translations: [iodine] Drug Allergy 01-31-20 13 rash [facility] (3 sources) Latex Propensity to adverse reactions rash [facility] Other (3 sources) Penicillin G Benzathine Drug allergy anaphylaxis [facility] Other (3 sources) Procaine Drug Allergy headaches [facility] Other (2 sources) Cephalexin; Translations: [Keflex] Drug Allergy 01-31-20 13 anaphylaxis [facility] (1 source) Novocain Drug allergy Unknown [facility] Other (6 sources) Acetaminophen; Translations: [ACETAMINOPHEN] Drug [...] [CIPROFLOXACIN] Drug Allergy 12-22-19 06 Other, Rash [facility] (6 sources) Doxycycline; Translations: [DOXYCYCLINE] Drug Allergy 01-24-20 Itching [facility] (6 sources) Penicillin G; Translations: [PENICILLIN G POTASSIUM] Drug Allergy 02-01-20 08 Anaphylactic Shock [facility] (6 sources) Penicillins; Translations: [PENICILLINS] Propensity to adverse reactions to drug 09-03-20 13 [facility] Quinolones (Antibiotic); Translations: [QUINOLONES] Propensity to adverse reactions to drug 03-31-20 08 Respiratory Problems [facility] Work Phone: (6 sources) Sulfonamides (Antibiotic); Translations: [SULFA ANTIBIOTICS] Propensity to adverse reactions to drug 02-01-20 08 Rash [facility] ([facility] sources) Bandage Tape; Translations: [BANDAGE TAPE] Propensity to adverse reactions 09-03-20 13 Rash [facility] ([facility] sources) Erythromycin Base; Translations: [ERYTHROMYCIN BASE] Propensity to adverse reactions to drug 01-24-20 20 Other [facility] (6 sources) Iodides; Translations: [IODIDES] Propensity to adverse reactions to drug 10-31-19 14 Hives [facility] (6 sources) Other (Review Comments!); Translations: [OTHER (REVIEW COMMENTS!)] Propensity to adverse reactions to drug 07-22-20 19 Agitation [facility] Work Phone: (1 source) Ciprofloxacin Drug Allergy [facility] (1 source) Iodine (And Iodine Containting Drugs) Drug allergy (disorder) 01-31-20 13 [facility] (1 source) Latex Drug allergy (disorder) 01-31-20 13 [facility] (1 source) Morphine Drug Allergy 06-09-20 16 [facility] (1 source) Penicillins Drug allergy (disorder) 01-31-20 13 [facility] (1 source) Sulfonamides (Antibiotic) Drug allergy (disorder) 01-31-20 13 [facility] (1 source) Darvocet-N 100 Drug allergy (disorder) 01-31-20 13 [facility] (1 source) E.E.S. Drug allergy (disorder) 01-31-20 13 [facility] Medications Current Medications Medication Drug Class(es) Dates Sig (Normalized) Sig (Original) acetaminophen 300 mg / butalbital 50 mg / caffeine 40 mg oral capsule (11 sources) Barbiturate, Central Nervous System Stimulant, Methylxanthine Cweabqyogu-HHKH-Kz ffeine 50-300-40 MG CAPS Take by mouth daily as needed. 0 Active take 1 capsule by mo [facility] every four hours Hfhxxtrqws-RWPP-Degjtptl 50-325-40 MG 1 capsule as needed Orally every 4 hrs Not-Taking Fioricet Active acetaminophen 325 mg / HYDROcodone bitartrate 5 mg oral tablet (10 sources) Opioid Agonist take 1 tablet by mouth once hydrocodone-acetaminophen (NORCO) 5-325 mg per tablet Take 1 Tablet by mouth. 0 Active HYDROcodone-Acet aminophen 7.5-300 MG Orally Not-Taking [place] Active acyclovir 400 mg oral tablet (8 [...] by mouth daily. Followed in coumadin clinic [place], [place] 0 Active take 1 tablet by [...] 4 mg/0.1 mL nasal liquid Instill 1 [place] into one nostril (alternate sides) as needed. 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 - .) [facility] Comment on above: Order Comment: MS CC FACILITY: [facility] [id number] Result Comment: HUA N CATCH MID-STREAM URINE > 10,000 BUT < 100,000 CFU/ML RESEMBLES A CONTAMINATED URINE COLLECTION Performed By: #### C -UR #### [facility] [address] [facility], [address] BASIC MET PANEL W/GFRon 12-0 Calcium [Mass/Vol] 9.2 mg/dL Normal (8.6 - 10.6) [facility] Comment on above: Order Comment: FACIL ITY: [facility] [id number] Performed By: #### C HEM-B #### [facility] [address] [facility], [address] Chloride [Moles/Vol] 99 mmol/L Normal (98 - 107) [facility] Comment on above: Order Comment: FACIL ITY: [facility] [id number] Performed By: #### C HEM-B #### [facility] [address] [place], [address] CO2 [Moles/Vol] 27 mmol/L Normal (22 - 30) [facility] Comment on above: Order Comment: FACIL ITY: [facility] [id number] Performed By: #### C HEM-B #### [facility] [address] [place], [address] Creatinine [Mass/Vol] 0.74 mg/dL Normal (0.52 - 1.04) [facility] Comment on above: Order Comment: FACIL ITY: [facility] [id number] Performed By: #### C HEM-B #### [facility] [address] [place], [address] GFR- AMER 95.6 ML/M1.7 Normal (60.0 - 140.1) [facility] Comment on above: Order Comment: FACIL ITY: [facility] [id number] Performed By: #### C HEM-B #### [facility] [address] [place], [address] GFR-NON AFRIC-AMER 79.0 ML/M1.7 Normal (60.0 - 115.8) [facility] Comment on above: Order Comment: FACIL ITY: [facility] [id number] Performed By: #### C HEM-B #### [facility] [address] [place], [address] Glucose [Mass/Vol] 100 mg/dL Normal (74 - 106) [facility] Comment on above: Order Comment: FACIL ITY: [facility] [id number] Performed By: #### C HEM-B #### [facility] [address] [place], [address] Potassium [Moles/Vol] 4.6 mmol/L Normal (3.5 - 5.1) [facility] Comment on above: Order Comment: FACIL ITY: [facility] [id number] Performed By: #### C HEM-B #### [facility] [address] [facility], [address] Sodium [Moles/Vol] 136 mmol/L Low (137 - 145) [facility] Comment on above: Order Comment: FACIL ITY: [facility] [id number] Performed By: #### C HEM-B #### [facility] [address] [facility], [address] Urea nitrogen [Mass/Vol] 11 mg/dL Normal (7 - 17) [facility] Comment on above: Order Comment: FACIL ITY: [facility] [id number] Performed By: #### C HEM-B #### [facility] [address] [facility], [address] Progress Noteson 08-25-2023 Finishing Department Supervisor Authentication Interface Message Text CC: Left hand and wrist pain [facility] Normal [facility] Finishing Department Supervisor Authentication Interface Message Text Patient Office Note or Post OP Note Name:Madan Perry Date: 08/25/2023 CC: left wrist pain at [facility] area No chief complaint on [...] of this patient. Aliza Aguilar MD Injection Procedure.[facility] 08/25/2023 [id number] Madan Perry The patient requested an injection [...] alcohol and a dressing applied. Normal [facility] MR wrist LT wo conon 023 MR wrist LT wo con [facility] [place] [address] MRI Report Signed Patient: Madan Perry MR#: [id number] : 1960 Acct:[id number] Age/Sex: 63 / F ADM Date: 07/20/23 Loc: [facility] Room: Type: [facility] Attending Dr: Aliza Aguilar Copies to: Aliza Aguilar Ordering Provider: Aliza Aguilar Date of Service: 07/20/23 MR/MR hand LT wo con: MEDIAN NERVE COMPRESSION ([id number]) MR/MR wrist LT wo con: MEDIAN NERVE COMPRESSION ([id number]) XR/XR pre/post mri xray: MEDIAN NERVE COMPRESSION [...] Jose Dial M.D.07/21/2023 7:38 PM Dictation Location: [place] [address] Transcribed By: [facility] 07/21/231937 Dictated By: Jose Dial DO 07/20/23 1525 Signed By: 07/21/23 1938 Normal [facility] Telephone Encounteron 2022 Finishing Department Supervisor Authentication Interface Message Text Spoke with patient and scheduled. Normal [facility] Telephone Encounteron 2022 Finishing Department Supervisor Authentication Interface Message Text Pt called as [...] she would need something sooner. Contact pt [phone] Normal [facility] Addendum Noteon 06-16-2023 Finishing Department Supervisor Authentication Interface Message Text Addended by: ALIZA AGUILRA on: 06/16/2023 11:34 AM Modules accepted: Orders Normal [facility] Progress Noteson 06-16-2023 Finishing Department Supervisor Authentication Interface Message Text Patient Office Note [...] this patient. Aliza Aguilar MD Normal [facility] Finishing Department Supervisor Authentication Interface Message Text CC: Left hand pain Pain Left wrist and hand; tingling to middle and ring fingers. Pt states ganglion which was removed has returned and is painful. CMC joint painful. 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 Normal [facility] XR HAND LEFT 3 VIEWSon 06-16 [...] findings. Left hand MACRO: None Normal [facility] XR Hand - left 3 Viewson [...] with the findings. Left hand MACRO: None [facility] Radiology Study observation (narrative) [facility] X[facility] Hand - left 3 ViewsOrdere d By: Alberto Llanes on 06-16-2023 [facility] Work Phone: US DARNELL DOP LEG BILon [...] L[place]IS SEWELL Date: 2023-01-27 17:22 Normal [facility] CBC AUTO DIFFon 01-12-2023 BASO # 0.1 103/ul Normal 0.0-0.1 [facility] Comment on above: Performed By: #### C BC #### [facility] [address] [place] [address] Dr. Rocio Hernandez Basophils/100 WBC (Bld) 1.0 % Normal 0.2-2.0 [facility] Comment on above: Performed By: #### C BC #### [facility] [address] [place] [address] Dr. Rocio Hernandez EO # 0.2 103/ul Normal 0.0-0.7 [facility] Comment on above: Performed By: #### C BC #### [facility] [address] [place] [address] Dr. Rocio Hernandez Eosinophils/100 WBC (Bld) 2.9 % Normal 0.9-7.0 [facility] Comment on above: Performed By: #### C BC #### [facility] [address] [place] [address] Dr. Rocio Hernandez Erythrocyte distribution width (RBC) [Ratio] 14.1 % Normal 11.0-15.0 [facility] Comment on above: Performed By: #### C BC #### [facility] [address] [place] [address] Dr. Rocio Hernandez Hematocrit (Bld) [Volume fraction] 41.2 % Normal 36.0-48.0 [facility] Comment on above: Performed By: #### C BC #### [facility] [address] [place] [address] Dr. Rocio Hernandez Hemoglobin (Bld) [Mass/Vol] 13.6 g/dL Normal 12.0-16.0 [facility] Comment on above: Performed By: #### C BC #### [facility] [address] [place] [address] Dr. Rocio Hernandez IG # 0.01 10e3/ul Normal 0.00-0.03 [facility] Comment on above: Performed By: #### C BC #### [facility] [address] [place] [address] Dr. Rocio Hernandez IG % 0.2 % Normal 0.0-0.5 [facility] Comment on above: Performed By: #### C BC #### [facility] [address] [place] [address] Dr. Rocio Hernandez LYMPH # 1.3 103/ul Normal 1.2-3.8 [facility] Comment on above: Performed By: #### C BC #### [facility] [address] [place] [address] Dr. Rocio Hernandez Lymphocytes/100 WBC (Bld) 21.9 % Normal 20.5-60.0 [facility] Comment on above: Performed By: #### C BC #### [facility] [address] [place] [address] Dr. Rocio Hernandez MANUAL DIFF REQ NO Normal [facility] Comment on above: Performed By: #### C BC #### [facility] [address] [place] [address] Dr. Rocio Hernandez MCH (RBC) [Entitic mass] 28.4 pg Normal 26.7-34.0 [facility] Comment on above: Performed By: #### C BC #### [facility] [address] [place] [address] Dr. Rocio Hernandez MCHC (RBC) [Mass/Vol] 33.0 g/dL Normal 29.9-35.2 [facility] Comment on above: Performed By: #### C BC #### [facility] [address] [place] [address] Dr. Rocio Hernandez MCV (RBC) [Entitic vol] 86.0 fL Normal 81.0-99.0 [facility] Comment on above: Performed By: #### C BC #### [facility] [address] [place] [address] Dr. Rocio Hernandez MONO # 0.6 103/ul Normal 0.3-0.8 [facility] Comment on above: Performed By: #### C BC #### [facility] [address] [place] [address] Dr. Rocio Hernandez Monocytes/100 WBC (Bld) 10.3 % Normal 1.7-12.0 [facility] Comment on above: Performed By: #### C BC #### [facility] [address] [place] [address] Dr. Rocio Hernandez NEUT # 3.8 103/ul Normal 1.4-6.5 [facility] Comment on above: Performed By: #### C BC #### [facility] [address] [place] [address] Dr. Rocio Hernandez Neutrophils/100 WBC (Bld) 63.7 % Normal 43.0-75.0 [facility] Comment on above: Performed By: #### C BC #### [facility] [address] [place] [address] Dr. Rocio Hernandez Platelet mean volume (Bld) [Entitic vol] 9.0 fL Critically low 9.5-13.5 [facility] Comment on above: Performed By: #### C BC #### [facility] [address] [place] [address] Dr. Rocio Hernandez PLT 360 103/ul Normal 150-450 [facility] Comment on above: Performed By: #### C BC #### [facility] [address] [address] [address] Rocio Hernandez RBC 4.79 106/ul Normal 4.20-5.40 [facility] Comment on above: Performed By: #### C BC #### [facility] [address] [address] [address] Rocio Hernandez WBC 5.9 103/ul Normal 4.0-11.0 [facility] Comment on above: Performed By: #### C BC #### [facility] [address] [address] [address] Rocio Hernandez FREE T3on 01-12-2023 FREE T3 2.31 pg/mlL Normal 2.18-3.98 [facility] Comment on above: Performed By: #### T SH, CMP, LIPID, FT3 ####[facility] [id number] [place] [address]Dr. Rocio Hernandez FREE T4on 01-12-2023 Free T4 [Mass/Vol] 1.21 ng/dL Normal 0.76-1.46 [facility] Comment on above: Performed By: #### B 12FOL, FT4 #### [facility] [address] [address] [address] Rocio Hernandez GLYCOHEMOGLOBIN A1Con 2022 ADA RECOMMENDATION SEE BELOW Normal [facility] Comment on above: Result Comment: ADA RECOMMENDED LIMIT 4.0 - 6.0 ADA THERAPEUTIC TARGET < 7.0 ACTION SUGGESTED > 7.0 Performed By: #### A 1C ####[facility] [address] [place] [address]Dr. Rocio Hernandez Glucose [Mass/Vol] 123 mg/dL Normal [facility] Comment on above: Performed By: #### A 1C ####[facility] [address] [place] [address]DrClem Hernandez HbA1c (Bld) [Mass fraction] 5.9 % Normal 4.5-6.2 [facility] Comment on above: Performed By: #### A 1C ####[facility] [address] [place], [place] [address]CyDr. Rocio Hernandez LIPID PROFILEon 01-12-2023 CHOL-HDL RATIO NORM SEE BELOW Normal [facility] Comment on above: Result Comment: 3.3 - 4.4 LOW RISK 4.4 - 7.1 AVERAGE RISK 7.1 - 11.0 MODERATE RISK >11.0 HIGH RISK Performed By: #### T SH, CMP, LIPID, FT3 #### [facility] [address] [address] [address] Rocio Hernandez Cholesterol [Mass/Vol] 203 mg/dL Critically high <=200 [facility] Comment on above: Performed By: #### T SH, CMP, LIPID, FT3 #### [facility] [address] [address] [address] Rocio Hernandez Cholesterol in HDL [Mass/Vol] 89 mg/dL Critically high 40-60 [facility] Comment on above: Performed By: #### T SH, CMP, LIPID, FT3 #### [facility] [address] [address] [address] Rocio Hernandez Cholesterol in LDL [Mass/Vol] 87.8 mg/dL Normal [facility] Comment on above: Performed By: #### T SH, CMP, LIPID, FT3 #### [facility] [address] [address] [address] Rocio Hernandez Cholesterol.total/C holesterol in HDL [Mass ratio] 2.3 {ratio} Normal [facility] Comment on above: Performed By: #### T SH, CMP, LIPID, FT3 #### [facility] [address] [address] [address] Rocio Hernandez HDL NORMAL > or = 60 mg/dl - LO W CARDIOVASCULAR RISK <40 mg/dl - HIGH CARDIOVASCULAR RISK Normal [facility] Comment on above: Performed By: #### T SH, CMP, LIPID, FT3 #### [facility] [address] [address] [address] Rocio Hernandez LDL CALC NORMAL SEE BELOW Normal [facility] Comment on above: Result Comment: <100 mg/dl OPTIMAL 100 - 129 mg/dl NEAR OR ABOVE OPTIMAL 130 - 159 mg/dl BORDERLINE HIGH 160 - 189 mg/dl HIGH >190 mg/dl VERY HIGH Performed By: #### T SH, CMP, LIPID, FT3 #### [facility] [address] [address] [address] Rocio Hernandez Triglyceride [Mass/Vol] 131 mg/dL Normal <=150 [facility] Comment on above: Performed By: #### T SH, CMP, LIPID, FT3 #### [facility] [address] [address] [address] Rocio Hernandez VLDL CALC 26.2 mg/dL Normal [facility] Comment on above: Performed By: #### T SH, CMP, LIPID, FT3 #### [facility] [address] [address] [address] Rocio Hernandez MICROALB CREAT RATIO RANDOMo n 01-12-2023 mALB <1.3 Normal <=30.0 [facility] Comment on above: Performed By: #### M CRR ####[facility] [address] [place], [place] [address]DjClem Hernandez MALB CR RATIO 13.6 mg/g Normal 0.0-29.9 [facility] Comment on above: Performed By: #### M CRR ####[facility] [address] [place], [place] [address]UpClem Hernandez MALB CR RATIO RANGE SEE BELOW Normal [facility] Comment on above: Result Comment: NO M ICROALBUMINURIA 0-29 MG/G CLINICAL MICROALBUMINURIA 30-300 MG/G MACROALBUMINURIA >300 MG/G Performed By: #### M CRR ####[facility] [address] [place], [place] [address]YzDr. Rocio Hernandez URINE CREAT 95.84 mg/dL Normal 20.00-300.00 [facility] Comment on above: Performed By: #### M CRR ####[facility] [address] [place], [place] [address]GvClem Hernandez PROF 14(COMP METB)on 023 Albumin [Mass/Vol] 3.8 g/dL Normal 3.4-5.0 [facility] Comment on above: Performed By: #### T SH, CMP, LIPID, FT3 #### [facility] [address] [place] [address] Dr. Rocio Hernandez Albumin/Globulin [Mass ratio] 0.9 {ratio} Normal [facility] Comment on above: Performed By: #### T SH, CMP, LIPID, FT3 #### [facility] [address] [place] [address] Dr. Rocio Hernandez ALP [Catalytic activity/Vol] 111 U/L Normal 46-116 [facility] Comment on above: Performed By: #### T SH, CMP, LIPID, FT3 #### [facility] [address] [place] [address] Dr. Rocio Hernandez ALT [Catalytic activity/Vol] 42 U/L Normal 14-59 [facility] Comment on above: Performed By: #### T SH, CMP, LIPID, FT3 #### [facility] [address] [place] [address] Dr. Rocio Hernandez Anion gap [Moles/Vol] 10.8 mmol/L Normal [facility] Comment on above: Performed By: #### T SH, CMP, LIPID, FT3 #### [facility] [address] [place] [address] Dr. Rocio Hernandez AST [Catalytic activity/Vol] 24 U/L Normal 15-37 [facility] Comment on above: Performed By: #### T SH, CMP, LIPID, FT3 #### [facility] [address] [place] [address] Dr. Rocio Hernandez Bilirubin [Mass/Vol] 0.4 mg/dL Normal 0.2-1.0 [facility] Comment on above: Performed By: #### T SH, CMP, LIPID, FT3 #### [facility] [address] [place] [address] Dr. Rocio Hernandez Calcium [Mass/Vol] 9.6 mg/dL Normal 8.5-10.1 [facility] Comment on above: Performed By: #### T SH, CMP, LIPID, FT3 #### [facility] [address] [address] [address] Rocio Hernandez Chloride [Moles/Vol] 93 mmol/L Critically low 98-107 [facility] Comment on above: Performed By: #### T SH, CMP, LIPID, FT3 #### [facility] [address] [address] [address] Rocio Hernandez CO2 [Moles/Vol] 31.2 mmol/L Normal 21.0-32.0 [facility] Comment on above: Performed By: #### T SH, CMP, LIPID, FT3 #### [facility] [address] [address] [address] Rocio Hernandez Creatinine [Mass/Vol] 1.02 mg/dL Normal 0.55-1.02 [facility] Comment on above: Performed By: #### T SH, CMP, LIPID, FT3 #### [facility] [address] [place] [address] Dr. Rocio Hernandez EGFR-AF CROATIAN >60 Normal >=60 [facility] Comment on above: Performed By: #### T SH, CMP, LIPID, FT3 #### [facility] [address] [address] [address] Rocio Hrenandez EGFR-NON AF CROATIAN 55 mL/min/1.73m2 Critically low >=60 [facility] Comment on above: Performed By: #### T SH, CMP, LIPID, FT3 #### [facility] [address] [place] [address] Dr. Rocio Hernandez Globulin (S) [Mass/Vol] 4.4 g/dL Normal [facility] Comment on above: Performed By: #### T SH, CMP, LIPID, FT3 #### [facility] [address] [place] [address] Dr. Rocio Hernandez Glucose [Mass/Vol] 102 mg/dL Normal 74-106 [facility] Comment on above: Performed By: #### T SH, CMP, LIPID, FT3 #### [facility] [address] [address] [address] Rocio Hernandez Potassium [Moles/Vol] 4.0 mmol/L Normal 3.5-5.1 [facility] Comment on above: Performed By: #### T SH, CMP, LIPID, FT3 #### [facility] [address] [place] [address] Dr. Rocio Hernandez Protein [Mass/Vol] 8.2 g/dL Normal 6.4-8.2 [facility] Comment on above: Performed By: #### T SH, CMP, LIPID, FT3 #### [facility] [address] [place] [address] Dr. Rocio Hernandez Sodium [Moles/Vol] 131 mmol/L Critically low 136-145 [facility] Comment on above: Performed By: #### T SH, CMP, LIPID, FT3 #### [facility] [address] [place] [address] Dr. Rocio Hernandez Urea nitrogen [Mass/Vol] 6.0 mg/dL Critically low 7.0-18.0 [facility] Comment on above: Performed By: #### T SH, CMP, LIPID, FT3 #### [facility] [address] [place] [address] Dr. Rocio Hernandez Urea nitrogen/Creatinine [Mass ratio] 5.9 mg/mg Normal [facility] Comment on above: Performed By: #### T SH, CMP, LIPID, FT3 #### [facility] [address] [place] [address] Dr. Rocio Hernandez TSHon 01-12-2023 TSH 5.647 uIU/mL Critically high 0.358-3.740 [facility] Comment on above: Performed By: #### T SH, CMP, LIPID, FT3 #### [facility] [address] [place] [address] Dr. Rocio Hernandez VIT B12 AND FOLATEon 023 Cobalamin (Vitamin B12) [Mass/Vol] 1189.0 pg/mL Critically high 193.0-986.0 [facility] Comment on above: Performed By: #### B 12FOL, FT4 #### [facility] [address] [place] [address] Dr. Rocio Hernandez FOLATE 27.30 ng/mL Normal 8.60-58.90 [facility] Comment on above: Performed By: #### B 12FOL, FT4 #### [facility] [address] [address] [address] Rocio Hernandez MG MAMM SCREEN 3D TANIA CADon 12-19-2022 MG MAMM SCREEN 3D TANIA CAD Patient: MADAN PERRY Exam Date: 12/19/2022 : 1960 Gender:F Ordering : DR [place] D.O. Admission #: [id number] Family : Order #: [id number] CLICK HERE TO VIEW EXAM RADIOLOGY REPORT [...] ovarian cancer at age 54. LOCATION: [facility] BREAST COMPOSITION: Scattered areas fibroglandular density. [...] M.D. on 12/19/2022 at 11:19 Normal [facility] XR DEXA BONE DENSITYon 03-27 -2023 XR DEXA BONE DENSITY EXAMINATION: XR DEXA [...] by: RODRI FLORES Date: 2022-12-19 10:01 Normal [facility] FREE T3on 03-22-2022 FREE T3 2.43 pg/mlL Normal 2.18-3.98 [facility] Comment on above: Performed By: #### B MP, FT3, TSH ####[facility] [address] [address]Dr. Rocio Hernandez FREE T4on 03-22-2022 Free T4 [Mass/Vol] 1.43 ng/dL Normal 0.76-1.46 [facility] Comment on above: Performed By: #### F T4 ####[facility] [address] [address]Dr. Rocio Hernandez PROF CHEM 8 (BAS METB)on Anion gap [Moles/Vol] 10.2 mmol/L Normal [facility] Comment on above: Performed By: #### B MP, FT3, TSH ####[facility] [address] [address]Dr. Rocio Hernandez Calcium [Mass/Vol] 8.8 mg/dL Normal 8.5-10.1 [facility] Comment on above: Performed By: #### B MP, FT3, TSH ####[facility] [address] [address]Dr. Rocio Hernandez Chloride [Moles/Vol] 104 mmol/L Normal 98-107 [facility] Comment on above: Performed By: #### B MP, FT3, TSH ####[facility] [address] [address]Dr. Rocio Hernandez CO2 [Moles/Vol] 31.7 mmol/L Normal 21.0-32.0 [facility] Comment on above: Performed By: #### B MP, FT3, TSH ####[facility] [address] [place], [place] [address]Dr. Rocio Hernandez Creatinine [Mass/Vol] 0.96 mg/dL Normal 0.55-1.02 [facility] Comment on above: Performed By: #### B MP, FT3, TSH ####[facility] [address] [address]Dr. Rocio Hernandez EGFR-AF CROATIAN >60 Normal >=60 [facility] Comment on above: Performed By: #### B MP, FT3, TSH ####[facility] [address] [place], [place] [address]Dr. Rocio Hernandez EGFR-NON AF CROATIAN 59 mL/min/1.73m2 Critically low >=60 [facility] Comment on above: Performed By: #### B MP, FT3, TSH ####[facility] [address] [address]Dr. Rocio Hernandez Glucose [Mass/Vol] 110 mg/dL Critically high 74-106 [facility] Comment on above: Performed By: #### B MP, FT3, TSH ####[facility] [address] [address]Dr. Rocio Hernandez Potassium [Moles/Vol] 2.9 mmol/L Critically low 3.5-5.1 [facility] Comment on above: Result Comment: TEST REPEATED CRITICAL VALUE VERIFIED Performed By: #### B MP, FT3, TSH ####[facility] [address] [address]Dr. Kerendereck Hernandez Sodium [Moles/Vol] 141 mmol/L Normal 136-145 [facility] Comment on above: Performed By: #### B MP, FT3, TSH ####[facility] [address] [place], [place] [address]Os. Rocio Hernandez Urea nitrogen [Mass/Vol] 12.0 mg/dL Normal 7.0-18.0 [facility] Comment on above: Performed By: #### B MP, FT3, TSH ####[facility] [address] [place], [place] [address]Bn. Rocio Hernandez Urea nitrogen/Creatinine [Mass ratio] 12.5 mg/mg Normal [facility] Comment on above: Performed By: #### B MP, FT3, TSH ####[facility] [address] [place], [place] [address]Gl. Rocio Hernandez TSHon 03-22-2022 TSH 0.137 uIU/mL Critically low 0.358-3.740 [facility] [place] [facility] Comment on above: Performed By: #### B MP, FT3, TSH ####[facility] [address] [id number]. Rocio Hernandez Patient Letter FTon 2020 Patient Letter [facility] (Inserted Image. Wilda ble to display) May 26, 2021 MADAN PERRY [address] [place] [address] MADAN PERRY 1960 Dear Madan, This is a SECOND ATTEMPT to remind you that you are due for an appointment with [facility]. Please contact our office at [phone] to schedule an appointment at your earliest convenience. Thank you, [facility] Normal [facility] Reminderson 05-26-2021 Reminders - From: Jane Onofre To: [facility] - Reminders/Recalls; Sent: 01/18/2021 12:33:31 EDT Show up: 04/25/2021 12:33:00 EDT Subject: Ambulatory Reminder Due Date/Time: 06/09/2021 12:33:00 EDT Reminder/Recall sara peace 5 year colon 06/09/2021 first recall letter second rcall letter Normal [facility] Patient Letter FTon 2020 Patient Letter [facility] (Inserted Image. Wilda ble to display) May 05, 2021 MADAN PERRY [address] [place] [address] MADAN PERRY 1960 Dear Madan, This is a reminder that you are due for an appointment with [facility]. Please contact our office at [phone] to schedule an appointment at your earliest convenience. Thank you, [facility] Normal [facility] Vital Signs Date Time Vital Sign Value Performing Clinician Facility 05-09-2022 16:35-0400 Body height 161.29 cm Adilia Rosa M Other [facility] Other 05-09-2022 16:35-0400 Body mass index (BMI) [Ratio] 25.63 kg/m2 Adilia Mederos Other [facility] Other 05-09-2022 16:35-0400 Body temperature 97.8 [degF] Adilia Rosa M Other [facility] Other 05-09-2022 16:35-0400 Body weight 66.68 kg Adilia Rosa M Other [facility] Other 05-09-2022 16:35-0400 Diastolic blood pressure 79 mm[Hg] Adilia Mederos Other [facility] Other 05-09-2022 16:35-0400 Respiratory rate 18 /min Adilia Mederos Other [facility] Other 05-09-2022 16:35-0400 SaO2% (BldA) [Mass fraction] 98 % Adilia Mederos Other [facility] Other 05-09-2022 16:35-0400 Systolic blood pressure 136 mm[Hg] Adilia Rosa M Other [facility] Other 07-21-2021 16:05-0400 Body height 161.29 cm Lilian Ferreira Other [facility] Other 07-21-2021 16:05-0400 Body mass index (BMI) [Ratio] 26.5 kg/m2 Lilian Ferreira Other [facility] Other 07-21-2021 16:05-0400 Body temperature 96.2 [degF] Lilian Ferreira Other [facility] Other 07-21-2021 16:05-0400 Body weight 68.95 kg Lilian Ferreira Other [facility] Other 07-21-2021 16:05-0400 Diastolic blood pressure 95 mm[Hg] Lilian Ferreira Other [facility] Other 07-21-2021 16:05-0400 Respiratory rate 18 /min Lilian Ferreira Other [facility] Other 07-21-2021 16:05-0400 SaO2% (BldA) [Mass fraction] 99 % Lilian Ferreira Other [facility] Other 07-21-2021 16:05-0400 Systolic blood pressure 132 mm[Hg] Lilian Clarkmond Other [facility] Other 06-22-2021 14:20-0400 Body height 161.29 cm Adilia Rosa M Other [facility] Other 06-22-2021 14:20-0400 Body mass index (BMI) [Ratio] 25.98 kg/m2 Adilia Mederos Other [facility] Other 06-22-2021 14:20-0400 Body temperature 96.4 [degF] Adilia Mederos Other [facility] Other 06-22-2021 14:20-0400 Body weight 67.59 kg Adilia Mederos Other [facility] Other 06-22-2021 14:20-0400 Diastolic blood pressure Adilia Mederos Other [facility] Other 06-22-2021 14:20-0400 Respiratory rate 18 /min Adilia Mederos Other [facility] Other 06-22-2021 14:20-0400 SaO2% (BldA) [Mass fraction] 98 % Adilia Mederos Other [facility] Other 06-22-2021 14:20-0400 Systolic blood pressure 111 mm[Hg] Adilia Mederos Other [facility] Other Encounters Encounter Date Encounter Type Care Provider Facility Start: 12-04-2023 End: 12-05-2023 ambulatory Meet Harp MD Facility: [facility] Start: 11-06-2023 End: 11-07-2023 ambulatory Meet Harp MD Facility: [facility] Start: 10-09-2023 End: 10-10-2023 ambulatory Meet Harp MD Facility: [facility] Start: 08-25-2023 End: 08-25-2023 ambulatory ALIZA AGUILAR Facility:[facility] Start: 08-25-2023 End: 08-25-2023 Office outpatient visit 15 minutes Aliza Aguilar MD Work Phone: [address] [facility] Comment on above: Hand arthritis (Prim maurisio Dx) Start: 08-21-2023 End: 08-22-2023 ambulatory Meet Harp MD Facility:[facility] Start: 08-19-2023 Letter encounter Yesy Covarrubias OT Work Phone: [facility] Start: 07-31-2023 End: 08-01-2023 ambulatory Meet Harp MD Facility:[facility] Start: 07-24-2023 End: 07-25-2023 ambulatory Meet Harp MD Facility:[facility] Start: 07-20-2023 End: 07-20-2023 ambulatory Aliza Aguilar Facility:[facility] Start: 07-20-2023 End: 07-20-2023 ambulatory DO [place] Work Phone: [facility] Work Phone: Start: 07-20-2023 End: 07-20-2023 Patient encounter procedure DO [place] Work Phone: [facility] [address] Work Phone: Start: 07-10-2023 End: 07-11-2023 ambulatory [facility] Start: 06-16-2023 End: 06-17-2023 ambulatory UNKNOWN PROVIDER Facility:[facility] Start: 06-16-2023 End: 06-16-2023 Office outpatient visit 25 minutes Aliza Aguilar MD Work Phone: [address] [facility] Comment on above: Left hand pain (Prim maurisio Dx) Start: 06-16-2023 End: 06-16-2023 [facility] 1 Work Phone: [address] [facility] Comment on above: Left hand pain Start: 02-07-2023 End: 02-08-[address] [place] Facility:[facility] Start: 01-27-2023 End: 01-28-[address] [place] Facility:[facility] Start: 01-23-2023 End: 02-22-2023 ambulatory DUARTE H FAWWAD Facility:[facility] Start: 01-16-2023 Encounter for genera l adult medical examination without abnormal findings DR [place] [facility] Start: 01-12-2023 End: 01-13-[address] [...] Letter encounter Yesy Covarrubias OT Work Phone: [facility] Start: 05-09-2022 End: 05-09-2022 ambulatory Adilia Mederos Other [place] [facility] Other Start: 05-09-2022 Office outpatient vi sit 15 minutes Adilia Mederos [facility] Start: 05-04-2022 End: 05-05-[address] [place] Facility:[facility] Start: 04-25-2022 End: 05-25-2022 ambulatory SHAIKH Eduardo ROSS Facility:[facility] Start: 03-25-2022 End: 04-22-2022 ambulatory SHAIKH Eduardo ROSS Facility:[facility] Start: 03-23-[address] [place] Fac ility:[facility] Start: 03-22-2022 End: 03-23-[address] [place] Facility:[facility] Start: 07-21-2021 Patient encounter procedure Lilian Ferreira [facility] Start: 06-22-2021 Office outpatient vi sit 15 minutes Adilia Mederos [facility] Procedures Date Procedure Procedure Detail Performing Clinician Start: 08-25-2023 Injection 1 tendon sheath/ligament aponeurosis Aliza Aguilar MD Work Phone: Start: 06-16-2023 Radex hand minimum 3 views Aliza Aguilar MD Work Phone: Plan of Treatment Date Care Activity Detail Author Start: 06-04-2028 Tetanus vaccination Tetanus (T d or Tdap) Booster [facility] Start: 01-13-2028 Cholesterol [Mass/volume] in Serum or Plasma Cholesterol [facility] Start: 08-25-2023 End: 08-25-2023 Patient encounter procedure 08/25/2023 11:30 AM EST Office Visit [facility] [address] [facility] [address] [place] [address] Aliza Aguilar MD [address] [place] [address] [facility] [address] [facility] Start: 07-20-2023 XR pre/post mri xray XR pre/post mri xray [facility] Start: 07-20-2023 [facility] Start: 07-20-2023 MR Wrist - left WO contrast [facility] Start: 07-20-2023 MRI of left wrist MR wrist LT wo con [facility] Start: 07-20-2023 MR Hand - left WO contrast [facility] Start: 07-20-2023 MRI of left hand MR hand LT wo con F [facility] Start: 06-25-2023 Influenza vaccination Influenza Vacc ine (#1) [facility] Start: 06-16-2023 End: 06-16-2024 MR Wrist - left WO contrast MR WRIST LEFT W/O Imaging Routine Left hand pain Expected: 06/16/2023, Expires: 06/16/[address] [facility] Work Phone: Comment on above: Expected: [...] malign ant neoplasm of cervix Pap Smear [facility] Start: 1977 Hepatitis C screening Hepatitis C An tibody [facility] Start: 1974 HIV screening HIV Test [facility] Start: 1960 COVID-19 Vaccine ( formulation) COVID-19 Vaccine ( formulation) [facility] Start: 1960 Screening for malign ant neoplasm of colon Colonoscopy [facility] Immunizations Immunization Date Immunization Notes Care Provider Fa [facility] 08-11-2023 influenza, injectabl e, quadrivalent, preservative free Aliza Aguilar MD Work Phone: [facility] 08-11-2023 Respiratory syncytia l virus (RSV), vaccine, bivalent, protein subunit RSV prefusion F, diluent reconstituted, 0.5 mL, preservative free (ESL=333) Aliza Aguilar MD Work Phone: [facility] 06-18-2022 influenza, injectabl e, quadrivalent, preservative free Aliza Aguilar MD Work Phone: [facility] 06-18-2022 influenza virus vacc ine, unspecified formulation Aliza Aguilar MD Work Phone: [facility] 02-05-2022 Pfizer Monovalent (1 2+ yrs) SARS-COV-2 (COVID-19) vaccine, mRNA, spike protein, LNP, pres. free, 30 mcg/0.3mL dose, betito-sucrose (NFR=756) Aliza Aguilar MD Work Phone: [facility] 08-11-2021 influenza, injectabl e, quadrivalent, preservative free Yesy Covarrubias OT Work Phone: [facility] 08-11-2021 influenza virus vacc ine, unspecified formulation Yesy Covarrubias OT Work Phone: [facility] 07-24-2020 zoster vaccine recombinant K camacho Covarrubias OT Work Phone: [facility] 07-11-2020 Influenza, injectabl e, Madin Zakia Canine Kidney, preservative free, quadrivalent Yesy Covarrubias OT Work Phone: [facility] 04-18-2020 zoster vaccine recombinant K sakshin Marci OT Work Phone: [facility] 08-28-2019 Influenza, injectabl e, Madin [place] Canine Kidney, preservative free, quadrivalent Yesy Marci OT Work Phone: [facility] 07-01-2019 influenza, high dose seasonal, preservative-free Yesy Marci OT Work Phone: [facility] 06-25-2019 pneumococcal polysac charide vaccine, 23 valent Yesy Marci OT Work Phone: [facility] 07-06-2018 influenza, injectabl e, quadrivalent, contains preservative Yesy Marci OT Work Phone: [facility] 06-04-2018 tetanus toxoid, redu karen diphtheria toxoid, and acellular pertussis vaccine, adsorbed Yesy Marci OT Work Phone: [facility] 08-19-2017 influenza, injectabl e, quadrivalent, preservative free Yesy Marci OT Work Phone: [facility] 08-09-2017 influenza, injectabl e, quadrivalent, contains preservative Yesy Marci OT Work Phone: [facility] 08-01-2016 influenza, injectabl e, quadrivalent, preservative free Yesy Marci OT Work Phone: [facility] 07-11-2015 influenza, injectabl e, madin zakia canine kidney, preservative free Yesy Marci OT Work Phone: [facility] 07-11-2015 pneumococcal conjuga te vaccine, 13 valent Yesy Marci OT Work Phone: [facility] 08-13-2009 novel influenza-H1N1 -09, preservative-free, injectable Yesy Marci OT Work Phone: [facility] 07-17-2009 influenza virus vacc ine, unspecified formulation Yesy Marci OT Work Phone: [facility] 08-15-2008 influenza virus vacc ine, unspecified formulation Yesy Covarrubias OT Work Phone: [facility] Payers Date Payer Category Payer Self-pay [id number] 2018 Unknown [id number] 2013 Medicare [id number] [id number] [id number] 1959 [facility] Blue [facility] [id number] [id number] 1960 Medicare [id number] 2.16.840.1.709077.19 1959 Unknown [id number] 2.16.840.1.586820.3.579.2.593 1959 Unknown [id number] 2.16.840.1.950674.3.579.2.59 1959 Unknown [id number] 2.16.840.1.032340.3.579.2.593 1959 Unknown [id number] 2.16.840.1.045101.3.579.2.593 1959 Unknown [id number] 2.16.840.1.185747.3.579.2.593 1959 Unknown [id number] 2.16.840.1.067695.3.579.2.593 1959 Unknown [id number] 2.16.840.1.224322.3.579.2.593 1959 Unknown [id number] 2.16.840.1.092564.3.579.2.593 1959 Unknown [id number] 2.16.840.1.834779.3.579.2.593 1959 Unknown [id number] 2.16.840.1.151989.3.579.2.593 1959 Unknown [id number] 2.16.840.1.789312.3.579.2.593 1959 Unknown [id number] 2.16.840.1.233622.3.579.2.593 1959 Unknown [id number] 2.16.840.1.878779.3.579.2.593 1959 Unknown [id number] 2.16.840.1.640107.3.579.2.593 1959 Unknown [id number] 2.16.840.1.082671.3.579.2.593 1959 Unknown [id number] 2.16.840.1.601872.3.579.2.593 1959 Unknown [id number] 2.16.840.1.914438.3.579.2.593 1959 Unknown [id number] 2.16.840.1.076749.3.579.2.593 1959 Unknown [id number] 2.16.840.1.337453.3.579.2.593 1959 Unknown [id number] 2.16.840.1.635147.3.579.2.593 1959 Unknown [id number] 2.16.840.1.214084.3.579.2.732 1959 Unknown [id number] 2.16.840.1.663240.3.579.2.732 1959 Unknown [id number] 2.16.840.1.913593.3.579.2.732 1959 Unknown [id number] 2.16.840.1.236006.3.579.2.196 1959 Unknown [id number] 2.16.840.1.231870.3.579.2.196 1959 Unknown [id number] 2.16.840.1.614126.3.579.2.196 1959 Unknown [id number] 2.16.840.1.912281.3.579.2.196 1959 Unknown [id number] 2.16.840.1.739748.3.579.2.196 1959 Unknown [id number] 2.16.840.1.193350.3.579.2.196 1959 Unknown [id number] 2.16.840.1.406843.3.579.2.196 Medicare Medicare Nonpatient [id number] Unknown [id number] 2.16.840.1.214980.3.579.2.531 Social History Date Type Detail Facility Unknown if ever smoked [facility] Other Sex Assigned At [facility] Other Start: 05-31-2019 Tobacco smoking stat [facility] Ex-smoker [facility] tobacco use 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 Patient Office Note or Post OP Note Name:Madan Perry Date: 08/25/2023 CC: left wrist pain at [facility] area No chief complaint on [...] of this patient. Aliza Aguilar MD Injection Procedure.[facility] 08/25/2023 [id number] Madan M Dionna The patient requested an injection of [...] a dressing applied. documented in this encounter [facility] 06-16-2023 Note Addended by: ALIZA AGUILAR on: 06/16/2023 11:34 AM Modules accepted: Orders [facility] 06-16-2023 Miscellaneous Notes Addended by: ALIZA AGUILAR on: 06/16/2023 11:34 AM Modules accepted: Orders documented in this encounter [facility] 06-16-2023 History of Presen t illness [...] continues on coumadin. documented in this encounter [facility] 05-09-2022 Evaluation note Encounter Date Diagnosis [...] Xray that was ordered outpatient by PCP [facility] Other 08-10-2022 NotePROCEDURE: XR FOOT RT MIN 3 VIEWS COMPARISON: None. HISTORY: Pain in right foot FINDINGS: BONES:No fracture, acute abnormality, or significant arthropathy. Mild enthesopathic spurring of the calcaneus at the Achilles insertion SOFT TISSUES:Negative. No visible soft tissue swelling. EFFUSION:None visible. OTHER: Negative. IMPRESSION: No acute abnormality Electronically authenticated by: MARTINEZ HARVEY Date: 2022-05-04 16:22[facility]10-27-2021 Evaluation note* Encounter Date Diagnosis Assessment Notes Treatment Notes Treatment Clinical Notes Jun, Swelling of left elbow (ICD-10 - M25.422) Jun, Other Patient refe rred to the ER due to swelling, ecchymosis, pain of her left elbow with no known injury. It is felt the patient needs blood work to evaluate [facility] Other 09-28-2021 Evaluation note* Encounter Date Diagnosis Assessment Notes Treatment Notes Treatment Clinical Notes May, Bee sting, undetermined intent, initial encounter (ICD-10 - T63.444A) May continue Xyzal and Benadryl as directed. [facility] Other Evaluation note* Diagnosis Left hand pain- Primary Pain in limb Left hand pain Pain in limb [facility] Left [facility] pain Pain in limb [facility]: Evaluation note* Diagnosis Hand [...] second t roseann Hospitalization History see above [facility] Other Summary Purpose Family History No Family History Records FoundNo Family History Records FoundNo Family History Records FoundNo Family History Records FoundNo Family History Records FoundNo Family History Records Found Advance Directives No Advanced Directives Records Found Advance Directive Response Recorded Date/ Time Advance Directives No February 15 10:24am Reason for Referral Specialty Diagnoses / Procedures Referred By Randi cardona Referred To Contact Radiology Diagnoses Left hand pain Aliza Aguilar MD [address] [place] [address] Referral ID Status Reason Start Date Expiration Date Visits Requested Visits Authorized [id number] Authorized Patient Preference 06/16/2023 06/16/2024 3 3 Comments Near home, [place], [place] Specialty Diagnoses / Procedures Referred By Randi cardona Referred To Contact Radiology Diagnoses Left hand pain Procedures MR WRIST LEFT W/O Aliza Aguilar MD [address] [place] [address] [facility] [address] [place] [address] Referral ID Status Reason Start Date Expiration Date V isits Requested Visits Authorized [id number] Authorized 06/16/2023 06/15/2024 1 1 Specialty Diagnoses / Procedures Referred By Randi cardona Referred To Contact Radiology Diagnoses Left hand pain Procedures XR HAND LEFT 3 VIEWS [facility] [address] [place] [address] [facility] DIAGNOSTIC RADIOLOGY [address] [place] [address] Referral ID Status Reason Start Date Expiration Date Visits Re quested Visits Authorized [id number] Closed 06/16/2023 06/15/2024 1 1 Chief Complaint and Reason for Visit Chief Complaint median nerve karel krista Additional Source Comments INFORMATION SOURCE (unrecogn ized section and content) DATE CREATED AUTHOR 05/27/2021 Paco Garcia [facility] DATE CREATED AUTHOR AUTHOR'S ORGANIZ ATION 03/03/2023 [facility] DATE CREATED AUTHOR AUTHOR'S ORGANIZ ATION 07/30/2023 [facility] DATE CREATED AUTHOR AUTHOR'S ORGANIZ ATION 08/28/2023 [facility] DATE CREATED AUTHOR AUTHOR'S ORGANIZ ATION 12/12/2023 [facility] DATE CREATED AUTHOR AUTHOR'S ORGANIZ ATION 12/23/2023 [facility] REASON FOR VISIT (unrecogniz ed section and content) Reason Comments Hand/finger symptoms Specialty Diagnoses / Procedures Referred By Randi cardona Referred To Contact Radiology Diagnoses Left hand pain Procedures XR HAND LEFT 3 VIEWS [facility] [address] [place], [place] [id number] [facility]IOLOG[facility] [address] [place] [address] [place] [address] Referral ID Status Reason Start Date Expiration Date Visits Re quested Visits Authorized [id number] Closed 06/16/2023 06/15/2024 1 1 Reason Comments Hand/finger symptoms Care Teams (unrecognized sec tion and content) 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 Estate 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 Relationship Specialty Start Date End Date Yesy Covarrubias OT [address] [place] [address] [place] [address] Occupational Therapist Occupational Therapy 06/30/20 Aliza Aguilar MD [address] [place] [address] Physician Orthopaedic Hand Service 06/30/20 Real Estate Valuer Relationship Specialty Start Date End Date Yesy Covarrubias OT [address] [facility] [place] [address] Occupational Therapist Occupational Therapy 06/30/20 Aliza Aguilar MD [address] [place] [address] Physician Orthopaedic Hand Service 06/30/20 Real Estate Valuer Relationship Specialty Start Date End Date Yesy Covarrubias OT [address] [facility] [place] [address] Occupational Therapist Occupational Therapy 06/30/20 Aliza Aguilar MD [address] [place] [address] Physician Orthopaedic Hand Service 06/30/20 Team Status: Active Member Role Status Dates [place] , DO Primary Care Provider Active Team Status: Inactive Member Role Status Dates [place] , DO Primary Care Provider Active Aliza Aguilar Attending Provider Active Real Estate Valuer Relationship Specialty Start Date End Date Yesy Covarrubias, OT [address] [facility] [address] [place] Occupational Therapist Occupational Therapy 06/30/20 Aliza Aguilar MD [address] [place] [address] Physician Orthopaedic Hand Service 06/30/20 Real Estate Valuer Relationship Specialty Start Date End Date Yesy Covarrubias, OT [address] [place] [address] Occupational Therapist Occupational Therapy 06/30/20 Aliza Aguilar MD [address] [place] [address] Physician Orthopaedic Hand Service 06/30/20 Goals (unrecognized [...] BE BASED ON THE PRIMARY CLINICAL RECORDS. [employer] [facility]. provides no warranty or guarantee of the accuracy or completeness of information in this document.
== END 2023-12-27 10:01 | disposition home or self-care (01) ==
LOC: PM 10:00
PROVIDERS: PCP Family Medicine; Visit Provider Nurse Practitioner
DX: M47.816 Spondylosis without myelopathy or radiculopathy, lumbar region (principal); M47.814 Spondylosis without myelopathy or radiculopathy, thoracic region; M48.04 Spinal stenosis, thoracic region; M51.24 Other intervertebral disc displacement, thoracic region
CPT/HCPCS: G0463

== ENCOUNTER 2024-01-15 12:51 | Outpatient (OUT) | payer BC, MEDICARE, SELFPAY ==
--- NOTE | 2024-01-15 13:23 | P.CN_ITS ---
Consult Note: HPI Data of Consult Patient: known to practice within the last 3 years Consult date: 01/15/24 Requesting Physician: Meet Harp MD Primary Care Provider: LAVERNE LAKE, DO Consult Narrative Reason for consult: thoracic back pain, left Narrative: 63yof who presents for in office injection. Notes persistence of left sided midback pain. Notes frequent muscle spasms in this area. Would like to proceed with trigger point injections of left thoracic region. cc:: CC: Meet Harp MD Review of Systems ROS Status of ROS 10 or more systems reviewed and unremark able except as noted in history and below PFSH PFSH Medical History Presence of vena cava filter ?Z95.828 - Presence of other vascular implants and grafts (ICD-10) Hypertension ?I10 - Essential (primary) hypertension (ICD-10) Osteoarthritis ?M19.90 - Unspecified osteoarthritis, unspecified site (ICD-10) Hypothyroid ?E03.9 - Hypothyroidism, unspecified (ICD-10) Stage 3 chronic kidney disease ?N18.30 - Chronic kidney disease, stage 3 unspecified (ICD-10) Colitis ?K52.9 - Noninfective gastroenteritis and colitis, unspecified (ICD-10) DVT (deep venous thrombosis) ?I82.409 - Acute embolism and thrombosis of unspecified deep veins of unspecified lower extremity (ICD-10) Surgical History History of carpal tunnel release ?Z98.890 - Other specified postprocedural states (ICD-10) History of bladder suspension procedure ?Z98.890 - Other specified postprocedural states (ICD-10) ?Z87.448 - Personal history of other diseases of urinary system (ICD-10) History of hernia repair ?Z98.890 - Other specified postprocedural states (ICD-10) ?Z87.19 - Personal history of other diseases of the digestive system (ICD-10) Hx of cholecystectomy ?Z90.49 - Acquired absence of other specified parts of digestive tract (ICD- 10) H/O colonoscopy ?Z98.890 - Other specified postprocedural states (ICD-10) History of esophagogastroduodenoscopy (EGD) ?Z98.890 - Other specified postprocedural states (ICD-10) History of decompression of ulnar nerve ?Z98.890 - Other specified postprocedural states (ICD-10) History of appendectomy ?Z90.49 - Acquired absence of other specified parts of digestive tract (ICD- 10) History of hysterectomy ?Z90.710 - Acquired absence of both cervix and uterus (ICD-10) Delivery by section History of laparoscopy ?Z98.890 - Other specified postprocedural states (ICD-10) Social History Smoking status: Former smoker Meds Home Medications and Allergies Home Medications ?Medication ?Instructions ?Recorded ?Confirmed ?Type acyclovir 400 mg tablet 400 mg PO DAILY 06/16/23 12/04/23 History amitriptyline 100 mg tablet 100 mg PO BEDTIME 06/16/23 12/04/23 History aripiprazole 10 mg tablet 10 mg PO BEDTIME 06/16/23 12/04/23 History atorvastatin 10 mg tablet 10 mg PO QDAY 06/16/23 12/04/23 History biotin 10,000 mcg-keratin 100 mg 1 tab PO QDAY 06/16/23 12/04/23 History tablet (Biotin Plus Keratin) smgzowrhkf-cfvrprjagastb-bigmizoa 1 cap PO Q6H PRN pain 06/16/23 12/04/23 History 50 mg-300 mg-40 mg capsule cholecalciferol (vitamin D3) 50 50 mcg PO DAILY 06/16/23 12/04/23 History mcg (2,000 unit) capsule (Vitamin D3) coenzyme Q10 100 mg capsule (Co 100 mg PO BID 06/16/23 12/04/23 History Q-10) cyanocobalamin (vitamin B-12) 1,000 mcg IM .monthly 06/16/23 12/04/23 History 1,000 mcg/mL injection solution cyclobenzaprine 10 mg tablet 10 mg PO Q12H PRN muscle spasm 06/16/23 12/04/23 History fluticasone propionate 220 2 puff inhalation Q12H 06/16/23 12/04/23 History mcg/actuation HFA aerosol inhaler (Flovent HFA) folic acid 400 mcg tablet 400 mcg PO DAILY 06/16/23 12/04/23 History fremanezumab-vfrm 225 mg/1.5 mL 225 mg subcut .monthly 06/16/23 12/04/23 History subcutaneous auto-injector (Ajovy) hydrochlorothiazide 12.5 mg tablet 12.5 mg PO QDAY 06/16/23 12/04/23 History hydrocodone 5 mg-acetaminophen 325 1 tab PO Q12H PRN pain 06/16/23 12/04/23 History mg tablet hydroxyzine HCl 25 mg tablet 25 mg PO BEDTIME 06/16/23 12/04/23 History levothyroxine 125 mcg tablet 125 mcg PO .every morning 06/16/23 12/04/23 History linaclotide 72 mcg capsule 145 mcg PO QDAY 06/16/23 12/04/23 History (Linzess) lisinopril 5 mg tablet 5 mg PO QDAY 06/16/23 12/04/23 History magnesium 200 mg tablet 400 mg PO DAILY 06/16/23 12/04/23 History melatonin 10 mg capsule 10 mg PO DAILY 06/16/23 12/04/23 History montelukast 10 mg tablet 10 mg PO QDAY 06/16/23 12/04/23 History omeprazole 40 mg capsule,delayed 40 mg PO BID 06/16/23 12/04/23 History release potassium chloride 10 mEq 20 meq PO BID 06/16/23 12/04/23 History tablet,extended release(part/cryst) prasterone (dhea) 25 mg capsule 25 mg PO BID 06/16/23 12/04/23 History (DHEA) vilazodone 40 mg tablet 40 mg PO QDAY 06/16/23 12/04/23 History vit C 250 mg-vit E 90 mg-zinc 40 1 tab PO BID 06/16/23 12/04/23 History mg-copper 1 bs-zhourz-mojfov capsule (PreserVision AREDS-2) warfarin 1 mg tablet 1 mg PO .qtuesday 06/16/23 12/04/23 History warfarin 2 mg tablet 2 mg PO QDAY 06/16/23 12/04/23 History zinc 50 mg capsule 50 mg PO DAILY 06/16/23 12/04/23 History aspirin 81 mg tablet,delayed 81 mg PO DAILY 07/17/23 12/04/23 History release (Adult Aspirin Regimen) hydrocortisone 2.5 % topical cream 1 applic topical BID PRN allergic 07/17/23 12/04/23 History reaction meclizine 12.5 mg tablet 12.5 mg PO BID PRN dizziness 07/17/23 12/04/23 History ondansetron HCl 4 mg tablet 4 mg PO Q12H PRN nausea and 07/17/23 12/04/23 History vomiting pseudoephedrine HCl 30 mg tablet 30 mg PO DAILY 09/30/23 12/04/23 History (Sudafed) Allergies Allergy/AdvReac Type Severity Reaction Status Date / Time erythromycin base AdvReac Severe Verified 12/04/23 08:15 Penicillins AdvReac Severe Anaphylaxis Verified 12/04/23 08:15 cephalexin [From Keflex] AdvReac Intermediate Hives Verified 12/04/23 08:15 doxycycline AdvReac Intermediate Hives Verified 12/04/23 08:15 iodine AdvReac Intermediate Hives Verified 12/04/23 08:15 morphine AdvReac Intermediate Vomiting Verified 12/04/23 08:15 oxycodone [From Percocet] AdvReac Intermediate Vomiting Verified 12/04/23 08:15 ciprofloxacin [From Cipro] AdvReac Mild Hives Verified 12/04/23 08:15 novicane AdvReac Intermediate Migraine Uncoded 12/04/23 08:15 Exam Narrative Exam Narrative: Psych-alert and oriented x 3. Attentive and appropriate, constitutionally normal, displays normal mood and affect per situation.? There are no obvious deficits in memory, reasoning, or intellect.? Skin-no obvious rashes, bruising, erythema noted to the patient's area of pain. Extremities- extremities are warm with minimal edema and palpable pulses. Thoracic - tenderness to palpation noted in the left thoracic spine and paraspinal musculature.?Multiple trigger points expressed on palpation. Range of motion is slightly diminished with these motions due to pain. Coordination remains intact.? Gait remains non-antalgic. Assessment and Plan Assessment and Plan (1) Thoracic back pain: Qualifiers: Chronicity: chronic Back pain laterality: left Qualified Code(s): M54.6 - Pain in thoracic spine; G89.29 - Other chronic pain (2) Spasm of thoracic back muscle: (3) Thoracic spondylosis: (4) Thoracic radiculopathy: (5) Disc displacement, thoracic: Plan 63yof who presents for in office injection. Continues to have left sided midback pain. Would like to proceed with previously discussed trigger point injections. Procedure: Left paraspinal trigger point injection - latissimus dorsi, serratus anterior, rhomboid major Medications: Bupivacaine 0.25% 4cc, kenalog 40mg Diagnosis: Thoracic myofascial pain syndrome I explained the details of the procedure to the patient including the risks, benefits, and alternatives.? We had an informed discussion.? The patient verbalized understanding and signed the consent form.? All questions were answered appropriately.? A time-out was performed.? After obtaining a comfortable seated position, the skin overlying the area of pain was prepped with alcohol 3 times. The needle was inserted in a sterile manner through the subcutaneous tissue at the areas of the trigger points. 1cc of the above medication was gently injected without any resistance after negative aspiration for blood or other bodily fluids.? This was completed in five total sites. The needle was removed and pressure was applied at the injection site to decrease the incidence of ecchymosis and hematoma formation.? A sterile bandage was applied.
== END 2024-01-15 12:52 | disposition home or self-care (01) ==
LOC: PM 12:51
PROVIDERS: PCP Family Medicine; Visit Provider Anesthesiology
DX: G89.29 Other chronic pain (principal); M62.838 Other muscle spasm; M47.814 Spondylosis without myelopathy or radiculopathy, thoracic region; M54.14 Radiculopathy, thoracic region; M51.24 Other intervertebral disc displacement, thoracic region
CPT/HCPCS: 20553

== ENCOUNTER 2024-01-24 04:44 | Outpatient (RCR) | payer BC, MEDICARE, SELFPAY | END 2024-02-23 12:07 | disposition home or self-care (01) | LOC: MM 04:44 | PROVIDERS: PCP Family Medicine; Visit Provider Internal Medicine | DX: Z51.81 Encounter for therapeutic drug level monitoring (principal); Z79.01 Long term (current) use of anticoagulants | CPT/HCPCS: 85610; G0463 ==

== ENCOUNTER 2024-01-29 12:34 | Outpatient (OUT) | payer BC, MEDICARE, SELFPAY ==
--- NOTE | 2024-01-29 12:37 | MM_ITS ---
Patient Name: MADAN PERRY MR#: [id number] : 1960 Exam Date: 01/29/2024 Ordering Doctor: DR LAVERNE LAKE D.O. RADIOLOGY REPORT PROCEDURE: MM TOMOSYNTHESIS SCREENING BI COMPARISON: MG MAMM SCREEN 3D TANIA CAD, 12/16/2021. MG MAMM SCREEN 3D TANIA CAD, 12/19/2022. INDICATIONS: screening Calculator Name NCI Breast Cancer Risk Assessment Tool 5 Year Breast Cancer Risk 3.00% Lifetime Breast Cancer Risk 11.80% Personal Breast Cancer No Personal Ovarian Cancer No Treatments None Family Cancers Mother with breast cancer at age 54; Mother with lung cancer at age 72; Brother with non hodgkins lymphoma cancer at age 20; Grandfather-maternal with lymphoma cancer at age ~48; Sister with ovarian cancer at age 55. LOCATION: The [facility] BREAST COMPOSITION: There are scattered areas of fibroglandular density. FINDINGS: DIAGNOSTIC CATEGORY 2--BENIGN FINDING. NO CHANGE FROM COMPARISON. Scattered benign-appearing calcifications are present. Scattered benign-appearing lymph nodes are present. RIGHT BREAST: No significant suspicious finding. LEFT BREAST: No significant suspicious finding. RECOMMENDATIONS: ROUTINE MAMMOGRAM AND CLINICAL EVALUATION IN 12 MONTHS. PLEASE NOTE: A NORMAL MAMMOGRAM DOES NOT EXCLUDE THE POSSIBILITY OF BREAST CANCER. A CLINICALLY SUSPICIOUS PALPABLE LUMP SHOULD BE BIOPSIED. Dictated by: Mu Robertson MD on 01/29/2024 at 13:59 Approved by: Mu Robertson MD on 01/29/2024 at 14:04
== END 2024-01-29 12:35 | disposition home or self-care (01) ==
LOC: MAMMO 12:34
PROVIDERS: PCP Family Medicine; Visit Provider Family Medicine
DX: Z12.31 Encounter for screening mammogram for malignant neoplasm of breast (principal); Z80.3 Family history of malignant neoplasm of breast; Z80.1 Family history of malignant neoplasm of trachea, bronchus and lung; Z80.7 Family history of other malignant neoplasms of lymphoid, hematopoietic and related tissues; Z80.41 Family history of malignant neoplasm of ovary
CPT/HCPCS: 77063; 77067

== ENCOUNTER 2024-01-31 13:51 | Outpatient (OUT) | payer BC, MEDICARE, SELFPAY ==
--- NOTE | 2024-01-31 14:11 | P.CN_ITS ---
Consult Note: HPI Data of Consult Patient: known to practice within the last 3 years Consult date: 07/24/23 Requesting Physician: Etta Moya NP Primary Care Provider: [place], DO Consult Narrative Reason for consult: midback pain Narrative: 63yof who presents for assessment. persistent mid and low back pain. mri reviewed previously with Dr Harp, which shows multiple levels of disc bulging and stenosis, worst at t10-11 and t11-12. continues in provider directed home exercise program >6 weeks, with limited benefit. continues norco and flexeril. denies adverse med side effects. Continues to have moderate to severe left thoracic pain, sharp increasing with all activity and improved with lying down. Denies radicular pain. Noted moderate relief for 3 days after prior TPI, would like to discuss repeating. cc:: CC: Etta Moya NP Review of Systems ROS Status of ROS 10 or more systems reviewed and unremark able except as noted in history and below Musculoskeletal Reports: back pain PFSH PFSH Medical History Presence of vena cava filter ?Z95.828 - Presence of other vascular implants and grafts (ICD-10) Hypertension ?I10 - Essential (primary) hypertension (ICD-10) Osteoarthritis ?M19.90 - Unspecified osteoarthritis, unspecified site (ICD-10) Hypothyroid ?E03.9 - Hypothyroidism, unspecified (ICD-10) Stage 3 chronic kidney disease ?N18.30 - Chronic kidney disease, stage 3 unspecified (ICD-10) Colitis ?K52.9 - Noninfective gastroenteritis and colitis, unspecified (ICD-10) DVT (deep venous thrombosis) ?I82.409 - Acute embolism and thrombosis of unspecified deep veins of unspecified lower extremity (ICD-10) Surgical History History of carpal tunnel release ?Z98.890 - Other specified postprocedural states (ICD-10) History of bladder suspension procedure ?Z98.890 - Other specified postprocedural states (ICD-10) ?Z87.448 - Personal history of other diseases of urinary system (ICD-10) History of hernia repair ?Z98.890 - Other specified postprocedural states (ICD-10) ?Z87.19 - Personal history of other diseases of the digestive system (ICD-10) Hx of cholecystectomy ?Z90.49 - Acquired absence of other specified parts of digestive tract (ICD- 10) H/O colonoscopy ?Z98.890 - Other specified postprocedural states (ICD-10) History of esophagogastroduodenoscopy (EGD) ?Z98.890 - Other specified postprocedural states (ICD-10) History of decompression of ulnar nerve ?Z98.890 - Other specified postprocedural states (ICD-10) History of appendectomy ?Z90.49 - Acquired absence of other specified parts of digestive tract (ICD- 10) History of hysterectomy ?Z90.710 - Acquired absence of both cervix and uterus (ICD-10) Delivery by section History of laparoscopy ?Z98.890 - Other specified postprocedural states (ICD-10) Social History Smoking status: Former smoker Meds Home Medications and Allergies Home Medications ?Medication ?Instructions ?Recorded ?Confirmed ?Type acyclovir 400 mg tablet 400 mg PO DAILY 06/16/23 12/04/23 History amitriptyline 100 mg tablet 100 mg PO BEDTIME 06/16/23 12/04/23 History aripiprazole 10 mg tablet 10 mg PO BEDTIME 06/16/23 12/04/23 History atorvastatin 10 mg tablet 10 mg PO QDAY 06/16/23 12/04/23 History biotin 10,000 mcg-keratin 100 mg 1 tab PO QDAY 06/16/23 12/04/23 History tablet (Biotin Plus Keratin) sznhoaanol-zyyeedkgiqtli-jgrulfwr 1 cap PO Q6H PRN pain 06/16/23 12/04/23 History 50 mg-300 mg-40 mg capsule cholecalciferol (vitamin D3) 50 50 mcg PO DAILY 06/16/23 12/04/23 History mcg (2,000 unit) capsule (Vitamin D3) coenzyme Q10 100 mg capsule (Co 100 mg PO BID 06/16/23 12/04/23 History Q-10) cyanocobalamin (vitamin B-12) 1,000 mcg IM .monthly 06/16/23 12/04/23 History 1,000 mcg/mL injection solution cyclobenzaprine 10 mg tablet 10 mg PO Q12H PRN muscle spasm 06/16/23 12/04/23 History fluticasone propionate 220 2 puff inhalation Q12H 06/16/23 12/04/23 History mcg/actuation HFA aerosol inhaler (Flovent HFA) folic acid 400 mcg tablet 400 mcg PO DAILY 06/16/23 12/04/23 History fremanezumab-vfrm 225 mg/1.5 mL 225 mg subcut .monthly 06/16/23 12/04/23 History subcutaneous auto-injector (Ajovy) hydrochlorothiazide 12.5 mg tablet 12.5 mg PO QDAY 06/16/23 12/04/23 History hydrocodone 5 mg-acetaminophen 325 1 tab PO Q12H PRN pain 06/16/23 12/04/23 History mg tablet hydroxyzine HCl 25 mg tablet 25 mg PO BEDTIME 06/16/23 12/04/23 History levothyroxine 125 mcg tablet 125 mcg PO .every morning 06/16/23 12/04/23 History linaclotide 72 mcg capsule 145 mcg PO QDAY 06/16/23 12/04/23 History (Linzess) lisinopril 5 mg tablet 5 mg PO QDAY 06/16/23 12/04/23 History magnesium 200 mg tablet 400 mg PO DAILY 06/16/23 12/04/23 History melatonin 10 mg capsule 10 mg PO DAILY 06/16/23 12/04/23 History montelukast 10 mg tablet 10 mg PO QDAY 06/16/23 12/04/23 History omeprazole 40 mg capsule,delayed 40 mg PO BID 06/16/23 12/04/23 History release potassium chloride 10 mEq 20 meq PO BID 06/16/23 12/04/23 History tablet,extended release(part/cryst) prasterone (dhea) 25 mg capsule 25 mg PO BID 06/16/23 12/04/23 History (DHEA) vilazodone 40 mg tablet 40 mg PO QDAY 06/16/23 12/04/23 History vit C 250 mg-vit E 90 mg-zinc 40 1 tab PO BID 06/16/23 12/04/23 History mg-copper 1 no-grxxfo-fxsbfq capsule (PreserVision AREDS-2) warfarin 1 mg tablet 1 mg PO .qtuesday 06/16/23 12/04/23 History warfarin 2 mg tablet 2 mg PO QDAY 06/16/23 12/04/23 History zinc 50 mg capsule 50 mg PO DAILY 06/16/23 12/04/23 History aspirin 81 mg tablet,delayed 81 mg PO DAILY 07/17/23 12/04/23 History release (Adult Aspirin Regimen) hydrocortisone 2.5 % topical cream 1 applic topical BID PRN allergic 07/17/23 12/04/23 History reaction meclizine 12.5 mg tablet 12.5 mg PO BID PRN dizziness 07/17/23 12/04/23 History ondansetron HCl 4 mg tablet 4 mg PO Q12H PRN nausea and 07/17/23 12/04/23 History vomiting pseudoephedrine HCl 30 mg tablet 30 mg PO DAILY 09/30/23 12/04/23 History (Sudafed) Allergies Allergy/AdvReac Type Severity Reaction Status Date / Time erythromycin base AdvReac Severe Verified 12/04/23 08:15 Penicillins AdvReac Severe Anaphylaxis Verified 12/04/23 08:15 cephalexin [From Keflex] AdvReac Intermediate Hives Verified 12/04/23 08:15 doxycycline AdvReac Intermediate Hives Verified 12/04/23 08:15 iodine AdvReac Intermediate Hives Verified 12/04/23 08:15 morphine AdvReac Intermediate Vomiting Verified 12/04/23 08:15 oxycodone [From Percocet] AdvReac Intermediate Vomiting Verified 12/04/23 08:15 ciprofloxacin [From Cipro] AdvReac Mild Hives Verified 12/04/23 08:15 novicane AdvReac Intermediate Migraine Uncoded 12/04/23 08:15 Exam Narrative Exam Narrative: Psych-alert and oriented x 3. Attentive and appropriate, constitutionally normal, displays normal mood and affect per situation.? There are no obvious deficits in memory, reasoning, or intellect.? Skin-no obvious rashes, bruising, erythema noted to the patient's area of pain. Extremities- extremities are warm with minimal edema and palpable pulses. Thoracic - tenderness to palpation noted in the left thoracic spine and paraspinal musculature.?Multiple trigger points expressed on palpation. Range of motion is slightly diminished with these motions due to pain. Coordination remains intact.? Gait remains non-antalgic. Constitutional Documenting provider has reviewed patient's vital signs: yes Common normals: no apparent distress, oriented x3, healthy appearing, alert and well nourished General appearance: cooperative HENMT Common normals: normocephalic, hearing grossly normal bilaterally and moist oral mucous membranes Head and scalp: normocephalic Eye Common normals: PERRL Pupil: PERRL Neck & C-Spine Common normals: full ROM General: normal visual inspection Chest Common normals: inspection of chest normal Respiratory Common normals: normal respiratory effort, no retractions and no use of accessory muscles Neuro Common normals: oriented x3, CN's II-XII intact bilaterally, moves all extremities, no focal motor deficits, no sensory deficits noted and deep tendon reflexes 2+ bilaterally Sensorium/orientation: alert Motor exam: strength 5/5 throughout and no movement abnormalities noted Psych Common normals: mental status grossly normal, thought process normal, cooperative, affect normal, speech normal and activity/motor behavior normal Speech: normal speech Thought process: normal thought process Results Additional Findings Additional findings: If on a controlled substance or opioids, I have checked an [place] report on this patient and there are no aberrancies noted in the prescribing history.??If on a controlled substance or opioid a drug screen was completed and reviewed within the last year, and if there has not been a drug screen completed we ordered one today to monitor higher risk, state monitored pain medication use. As part of providing excellent, safe, comprehensive care, the following was completed at our patient's visit: 1. A medication reconciliation and review to ensure accurate knowledge of current/active medications, including asking our patients to inform us about any [id number] medications or herbal remedies/nutritional supplements/alternative remedies. 2. A review to specifically ensure our patients have had annual screening for screening for depression, screening for tobacco use, and screening for unhealthy alcohol use. For concerning screenings had a discussion with the patient, provided patient education, and recommended follow-up with primary care provider when appropriate. If patient noted with a risk of falling, they received education on strength, gait, and balance training to prevent future risk of falling. Assessment and Plan Assessment and Plan (1) Thoracic back pain: Qualifiers: Chronicity: chronic Back pain laterality: left Qualified Code(s): M54.6 - Pain in thoracic spine; G89.29 - Other chronic pain (2) Thoracic spondylosis: (3) Thoracic stenosis: (4) Disc displacement, thoracic: (5) Myofascial pain syndrome: Plan Procedure: Left parathoracic trigger point injection - latissimus dorsi, serratus anterior, rhomboid major Medications: Bupivacaine 0.25% 4cc, kenalog 40mg Diagnosis: Thoracic myofascial pain syndrome I explained the details of the procedure to the patient including the risks, benefits, and alternatives.? We had an informed discussion.? The patient verbalized understanding and signed the consent form.? All questions were answered appropriately.? A time-out was performed.? After obtaining a comfortable seated position, the skin overlying the area of pain was prepped with alcohol 3 times. The needle was inserted in a sterile manner through the subcutaneous tissue at the areas of the trigger points. 1cc of the above medication was gently injected without any resistance after negative aspiration for blood or other bodily fluids.? This was completed in three total sites. The needle was removed and pressure was applied at the injection site to decrease the incidence of ecchymosis and hematoma formation.? A sterile bandage was applied. Patient noted significant immediate improvement without complications referral to Dr Weber sports medicine for evaluation of chronic thoracic pain, with significant improvement with TPIs I would like his opinion on further management. Prior thoracic MRI appears non surgical, patient had mild benefit to thoracic ESIs and thoracic facet blocks were denied by insurance company. consider spinal cord stimulator trial in the future continue medications through PCP f/u after vacation if TPI needed
== END 2024-01-31 13:52 | disposition home or self-care (01) ==
LOC: PM 13:51
PROVIDERS: PCP Family Medicine; Visit Provider Nurse Practitioner
DX: G89.29 Other chronic pain (principal); M47.814 Spondylosis without myelopathy or radiculopathy, thoracic region; M48.04 Spinal stenosis, thoracic region; M51.24 Other intervertebral disc displacement, thoracic region; M79.18 Myalgia, other site
CPT/HCPCS: 20552

== ENCOUNTER 2024-02-26 03:14 | Outpatient (RCR) | payer BC, MEDICARE, SELFPAY | END 2024-03-22 10:31 | disposition home or self-care (01) | LOC: MM 03:14 | PROVIDERS: PCP Family Medicine; Visit Provider Internal Medicine | DX: Z51.81 Encounter for therapeutic drug level monitoring (principal); Z79.01 Long term (current) use of anticoagulants | CPT/HCPCS: 85610; G0463 ==

== ENCOUNTER 2024-02-26 07:12 | Outpatient (OUT) | payer BC, MEDICARE, SELFPAY ==
--- OUTSIDE RECORDS SUMMARY | 2024-02-26 07:14 | XMS_ITS | CCD ---
Author Organization [facility] Care Team Providers Care Director Global Sales Name Role Phone Adilia Mederos Unavailable Lilian Ferreira Unavailable Yesy Covarrubias OT Unavailable Aliza Aguilar MD Unavailable [phone] [place], DR TANK Aguillon Primary Care [...] DR TANK Aguillon Admitting Unavailable LAKE, DR ATNK Agulilon Primary Care Unavailable FAWWAD, DUARTE H Admitting Unavailable LAKE, DR TANK Aguillon Primary Care Unavailable FAWWAAbdifatah, DUARTE H Attending Unavailable LAKE, DR TANK Aguillon Attending Unavailable LAKE, DR TANK Aguillon Primary Care Unavailable LAKE, DR TANK Aguillon Admitting Unavailable FAWWAD, DUARTE H Admitting Unavailable FAWWAAbdifatah, DUARTE H Attending Unavailable LAKE, DR TANK Aguillon Primary Care Unavailable FAWWAAbdifatah, H Attending Unavailable LAKE, DR TANK Aguillon [...] OT, Yesy Unavailable Aliza Aguilar MD. Unavailable [phone] Lake[place] Fu A Primary Care Provider Aliza Aguilar Attending Provider Aliza Aguilar Admitting Unavailable Aliza Aguilar Attending Unavailable Lake[facility] Primary Care Unavailable PROVIDER, UNKNOWN Admitting Unavailable PROVIDER, UNKNOWN Attending Unavailable PROVIDER, UNKNOWN Attending Unavailable PROVIDER, UNKNOWN Admitting Unavailable ALIZA AGUILAR Referring Unavailable PROVIDER, UNKNOWN Admitting Unavailable PROVIDER, UNKNOWN Attending Unavailable Giedraitis MD, Andrius Quinten Attending Unavailable Giedraitis MD, Andrius Vytautas Attending Unavailable Giedraitis MD, Andrius Vytautas Attending Unavailable Giedraitis MD, Andrius Vytautas Attending Unavailable Giedraitis MD, Andrius Vytautas Attending Unavailable Giedraitis MD, Andrius Vytautas Attending Unavailable Giedraitis MD, Andrius Vytautas Attending Unavailable Giedraitis MD, Andrius Vytautas Attending Unavailable EBONIE SIMPSON Attending Unavailable TANK [place] Referring Unavailable TANK [place] Primary Care Unavailable Allergies Allergy Classification Reported Allergen(s) Allergy Type Date of Onset Reaction(s) Facility (3 sources) Acetaminophen / oxyCODONE Drug Allergy stomach upset [facility] Other (3 sources) Adhesive Tape Propensity to adverse reactions rash [facility] Other (3 sources) Cephalexin; Translations: [CEPHALEXIN] Drug Allergy 12-22-19 06 anaphylaxis [facility] (10 sources) Erythromycin; Translations: [ERYTHROMYCIN] Drug Allergy 12-22-19 06 [facility] Iodine; Translations: [iodine] Drug Allergy 01-31-20 13 rash [facility] Repository (4 sources) Latex; Translations: [LATEX] Propensity to adverse reactions 12-22-19 06 rash [facility] (3 sources) Penicillin G Benzathine Drug allergy anaphylaxis [facility] Other (3 sources) Procaine Drug Allergy headaches [facility] Other (2 sources) Cephalexin; Translations: [Keflex] Drug Allergy 01-31-20 13 anaphylaxis [facility] Repository (1 source) Novocain Drug allergy Unknown [facility] [facility] Other (6 sources) Acetaminophen; Translations: [ACETAMINOPHEN] Drug Allergy 02-01-20 08 Vomiting [facility] (7 sources) Acetaminophen / oxyCODONE; Translations: [OXYCODONE-ACETA MINOPHEN] [...] Drug Allergy 12-22-19 06 Other, Rash [facility] (7 sources) Doxycycline; Translations: [DOXYCYCLINE] Drug Allergy 01-24-20 Itching [facility] (6 sources) Penicillin G; Translations: [PENICILLIN G POTASSIUM] Drug Allergy 02-01-20 [facility] (7 sources) Penicillins; Translations: [PENICILLINS] Propensity to adverse reactions to drug 12-22-19 [facility] (7 sources) Quinolones (Antibiotic); Translations: [QUINOLONES] Propensity to adverse reactions to drug 12-22-19 06 Respiratory Problems [facility] Work Phone: (6 sources) Sulfonamides (Antibiotic); Translations: [SULFA ANTIBIOTICS] Propensity to adverse reactions to drug 02-01-20 08 Rash [facility] (6 sources) Bandage Tape; Translations: [BANDAGE TAPE] Propensity to adverse reactions 09-03-20 13 Rash [facility] (7 sources) Erythromycin Base; Translations: [ERYTHROMYCIN BASE] Propensity to adverse reactions to drug 01-24-20 Other [facility] (7 sources) Iodides; Translations: [IODIDES] Propensity to adverse reactions to drug 10-31-19 14 Hives [facility] (6 sources) Other (Review Comments!); Translations: [OTHER (REVIEW COMMENTS!)] Propensity to adverse reactions to drug 07-22-20 19 Agitation [facility] Work Phone: (1 source) Ciprofloxacin Drug Allergy [facility] Repository (1 source) Iodine (And Iodine Containting Drugs) Drug allergy (disorder) 01-31-20 13 [facility] (1 source) Latex Drug allergy (disorder) 01-31-20 13 [facility] (2 sources) Morphine; Translations: [MORPHINE] Drug Allergy 10-21-19 14 [facility] (1 source) Penicillins Drug allergy (disorder) 01-31-20 13 [facility] (1 source) Sulfonamides (Antibiotic) Drug allergy (disorder) 01-31-20 13 [facility] (1 source) Darvocet-N 100 Drug allergy (disorder) 01-31-20 13 [facility] (1 source) E.E.S. Drug allergy (disorder) 01-31-20 13 [facility] (1 source) Adhesive agent; Translations: [ADHESIVE] Propensity to adverse reactions to drug (disorder) 09-03-20 13 [facility] (1 source) Sulfonamides (Antibiotic); Translations: [SULFA (SULFONAMIDE ANTIBIOTICS)] Propensity to adverse reactions to drug (disorder) 12-22-19 06 [facility] (1 source) IODINATED CONTRAST MEDIA; Translations: [IODINATED CONTRAST MEDIA] Propensity to adverse reactions to drug (disorder) 12-22-19 06 [facility] (1 source) ADHESIVE TAPE-SILICONES; Translations: [ADHESIVE TAPE-SILICONES] Propensity to adverse reactions to drug (disorder) 09-03-20 13 [facility] Rep[facility] Medications Current Medications Medication Drug Class(es) Dates Sig (Normalized) Sig (Original) acetaminophen 300 mg / butalbital 50 mg / caffeine 40 mg oral capsule (11 sources) Barbiturate, Central Nervous System Stimulant, Methylxanthine Owxwlwnrfc-EFPO-Wr ffeine 50-300-40 MG CAPS Take by mouth daily as needed. 0 Active take [address] [facility] every four hours Pqccyptaee-SCQZ-Xaqpbbdz 50-325-40 MG 1 capsule as needed Orally every 4 hrs Not-Taking Fioricet Active acetaminophen 325 mg / HYDROcodone bitartrate 5 mg oral tablet (10 sources) Opioid Agonist take 1 tablet by mouth once hydrocodone-acetaminophen (NORCO) 5-325 mg per tablet Take 1 Tablet by mouth. 0 Active HYDROcodone-Acet aminophen 7.5-300 MG Orally Not-Taking Unity Active acyclovir 400 mg oral tablet (8 [...] 1 tablet by lisa every twelve hours at bedtime Orphenadrine Citrate [...] by mouth daily. Followed in coumadin clinic [place], [place] 0 Active take 1 tablet by [...] 4 mg/0.1 mL nasal liquid Instill 1 [place] into one nostril (alternate sides) as needed. 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 - .) [facility] Comment on above: Order Comment: MS CC FACILITY: [facility] [id number] Result Comment: HUA N CATCH MID-STREAM URINE > 10,000 BUT < 100,000 CFU/ML RESEMBLES A CONTAMINATED URINE COLLECTION Performed By: #### C -UR #### [facility] [address] [facility], [address] BASIC MET PANEL W/GFRon 12-0 -2022 Calcium [Mass/Vol] 9.2 mg/dL Normal (8.6 - 10.6) [facility] Comment on above: Order Comment: FACIL ITY: [facility] [id number] Performed By: #### C HEM-B #### [facility] [address] [facility], [address] Chloride [Moles/Vol] 99 mmol/L Normal (98 - 107) [facility] Comment on above: Order Comment: FACIL ITY: [facility] [id number] Performed By: #### C HEM-B #### [facility] [address] [facility], [address] CO2 [Moles/Vol] 27 mmol/L Normal (22 - 30) [facility] Comment on above: Order Comment: FACIL ITY: [facility] [id number] Performed By: #### C HEM-B #### [facility] [address] [facility], [address] Creatinine [Mass/Vol] 0.74 mg/dL Normal (0.52 - 1.04) [facility] Comment on above: Order Comment: FACIL ITY: [facility] [id number] Performed By: #### C HEM-B #### [facility] [address] [facility], [address] GFR- AMER 95.6 ML/M1.7 Normal (60.0 - 140.1) [facility] Comment on above: Order Comment: FACIL ITY: [facility] [id number] Performed By: #### C HEM-B #### [facility] [address] [place], [address] GFR-NON AFRIC-AMER 79.0 ML/M1.7 Normal (60.0 - 115.8) [facility] Comment on above: Order Comment: FACIL ITY: [facility] [id number] Performed By: #### C HEM-B #### [facility] [address] [place], [address] Glucose [Mass/Vol] 100 mg/dL Normal (74 - 106) [facility] Comment on above: Order Comment: FACIL ITY: [facility] [id number] Performed By: #### C HEM-B #### [facility] [address] [place], [address] Potassium [Moles/Vol] 4.6 mmol/L Normal (3.5 - 5.1) [facility] Comment on above: Order Comment: FACIL ITY: [facility] [id number] Performed By: #### C HEM-B #### [facility] [address] [place], [address] Sodium [Moles/Vol] 136 mmol/L Low (137 - 145) [facility] on above: Order Comment: FACIL ITY: [facility] [id number] Performed By: #### C HEM-B #### [facility] [address] [place], [address] Urea nitrogen [Mass/Vol] 11 mg/dL Normal (7 - 17) [facility] Comment on above: Order Comment: FACIL ITY: [facility] [id number] Performed By: #### C HEM-B #### [facility] [address] [place], [address] Progress Noteson 08-25-2023 Cable Operator Authentication Interface Message Text CC: Left hand and wrist pain Follow up after MRI done at [facility]. Normal [facility] Cable Operator Authentication Interface Message Text Patient Office Note or Post OP Note Name:Madan Perry Date: 08/25/2023 CC: left wrist pain at [facility] area No chief complaint on file. EXAM: [...] of this patient. Aliza Aguilar MD Injection Procedure.formerly [facility] 08/25/2023 [id number] Madan Perry The patient requested an injection [...] alcohol and a dressing applied. Normal [facility] MR wrist LT wo holly 023 MR wrist LT wo con [facility] Main [address] [address] MRI Report Signed Patient: Madan Perry MR#: [id number] : 1960 Acct:[id number] Age/Sex: 63 / F ADM Date: 07/20/23 [facility] Type: [facility] Attending Dr: Aliza Aguilar Copies to: Aliza Aguilar Ordering Provider: Aliza Aguilar Date of Service: 07/20/23 MR/MR hand LT wo con: MEDIAN NERVE COMPRESSION ([id number]) MR/MR wrist LT wo con: MEDIAN NERVE COMPRESSION ([id number]) XR/XR pre/post mri xray: MEDIAN NERVE COMPRESSION [...] Jose Dial M.D.07/21/2023 7:38 PM Dictation Location: [facility] Transcribed By: [facility] 07/21/231937 Dictated By: Jose Dial DO 07/20/23 1525 Signed By: 07/21/231937 Normal [facility] Telephone Encounteron 2022 Cable Operator Authentication Interface Message Text Spoke with patient and scheduled. Normal [facility] Telephone Encounteron 2022 Cable Operator Authentication Interface Message Text Pt called [...] she would need something sooner. Contact pt @[phone] Normal [facility] Addendum Noteon 06-16-2023 Cable Operator Authentication Interface Message Text Addended by: ALIZA AGUILAR on: 06/16/2023 11:34 AM Modules accepted: Orders Normal [facility] Progress Noteson 06-16-2023 Cable Operator Authentication Interface Message Text Patient Office [...] this patient. Aliza Aguilar MD Normal [facility] Cable Operator Authentication Interface Message Text CC: Left hand pain Pain Left wrist and hand; tingling to middle and ring fingers. Pt states ganglion which was removed has returned and is painful. CMC joint painful. 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 Normal [facility] XR HAND LEFT 3 VIEWSon 06-16 XR HAND LEFT 3 VIEWS EXAMINATION: XR HAND LEFT 3 VIEWSPRO/LT 06/16/2023 11:02 AM CLINICAL HISTORY: left hand pain ASSOCIATED DIAGNOSIS: Left hand pain ORDERING PROVIDER: ALIZA MOCTEZUMA NOTE: C/O hand pain and stiffness. COMPARISON: [...] findings. Left hand MACRO: None Normal [facility] XR Hand - left 3 Viewson EXAMINATION: XR HAND LEFT 3 VIEWSPRO/LT 06/16/2023 11:02 AM CLINICAL HISTORY: left hand pain ASSOCIATED DIAGNOSIS: Left hand pain ORDERING PROVIDER: ALIZA MOCTEZUMA NOTE: C/O hand pain and stiffness. COMPARISON: [...] with the findings. Left hand MACRO: None [facility] Radiology Study observation (narrative) [facility] XR Hand - left 3 ViewsOrdere d By: Alberto Llanes on 06-16-2023 [facility] Work Phone: US DARNELL DOP LEG [...] by: LOUIS SEWELL Date: 2023-01-27 17:22 Normal [facility] CBC AUTO DIFFon 01-12-2023 BASO # 0.1 103/ul Normal 0.0-0.1 [facility] Comment on above: Performed By: #### C BC #### [facility] [address] [place] [address] Dr. Rocio Hernandez Basophils/100 WBC (Bld) 1.0 % Normal 0.2-2.0 [facility] Comment on above: Performed By: #### C BC #### [facility] [address] [place] [address] Dr. Rocio Hernandez EO # 0.2 103/ul Normal 0.0-0.7 [facility] Comment on above: Performed By: #### C BC #### [facility] [address] [place] [address] Dr. Rocio Hernandez Eosinophils/100 WBC (Bld) 2.9 % Normal 0.9-7.0 [facility] Comment on above: Performed By: #### C BC #### [facility] [address] [place] [address] Dr. Rocio Hernandez Erythrocyte distribution width (RBC) [Ratio] 14.1 % Normal 11.0-15.0 [facility] Comment on above: Performed By: #### C BC #### [facility] [address] [place] [address] Dr. Rocio Hernandez Hematocrit (Bld) [Volume fraction] 41.2 % Normal 36.0-48.0 [facility] Comment on above: Performed By: #### C BC #### [facility] [address] [place] [address] Dr. Rocio Hernandez Hemoglobin (Bld) [Mass/Vol] 13.6 g/dL Normal 12.0-16.0 [facility] Comment on above: Performed By: #### C BC #### [facility] [address] [place] [address] Dr. Rocio Hernandez IG # 0.01 10e3/ul Normal 0.00-0.03 [facility] Comment on above: Performed By: #### C BC #### [facility] [address] [place] [address] Dr. Rocio Hernandez IG % 0.2 % Normal 0.0-0.5 [facility] Comment on above: Performed By: #### C BC #### [facility] [address] [place] [address] Dr. Rocio Hernandez LYMPH # 1.3 103/ul Normal 1.2-3.8 [facility] Comment on above: Performed By: #### C BC #### [facility] [address] [place] [address] Dr. Rocio Hernandez Lymphocytes/100 WBC (Bld) 21.9 % Normal 20.5-60.0 [facility] Comment on above: Performed By: #### C BC #### [facility] [address] [place] [address] Dr. Rocio Hernandez MANUAL DIFF REQ NO Normal [facility] Comment on above: Performed By: #### C BC #### [facility] [address] [place] [address] Dr. Rocio Hernandez MCH (RBC) [Entitic mass] 28.4 pg Normal 26.7-34.0 [facility] Comment on above: Performed By: #### C BC #### [facility] [address] [place] [address] Dr. Rocio Hernandez MCHC (RBC) [Mass/Vol] 33.0 g/dL Normal 29.9-35.2 [facility] Comment on above: Performed By: #### C BC #### [facility] [address] [place] [address] Dr. Rocio Hernandez MCV (RBC) [Entitic vol] 86.0 fL Normal 81.0-99.0 [facility] Comment on above: Performed By: #### C BC #### [facility] [address] [place] [address] Dr. Rocio Hernandez MONO # 0.6 103/ul Normal 0.3-0.8 [facility] Comment on above: Performed By: #### C BC #### [facility] [address] [place] [address] Dr. Rocio Hernandez Monocytes/100 WBC (Bld) 10.3 % Normal 1.7-12.0 [facility] Comment on above: Performed By: #### C BC #### [facility] [address] [address] [address] Rocio Hernandez NEUT # 3.8 103/ul Normal 1.4-6.5 [facility] Comment on above: Performed By: #### C BC #### [facility] [address] [address] [address] Rocio Hernandez Neutrophils/100 WBC (Bld) 63.7 % Normal 43.0-75.0 [facility] Comment on above: Performed By: #### C BC #### [facility] [address] [place] [address] Dr. Rocio Hernandez Platelet mean volume (Bld) [Entitic vol] 9.0 fL Critically low 9.5-13.5 [facility] Comment on above: Performed By: #### C BC #### [facility] [address] [place] [address] Dr. Rocio Hernandez PLT 360 103/ul Normal 150-450 [facility] Comment on above: Performed By: #### C BC #### [facility] [address] [place] [address] Dr. Rocio Hernandez RBC 4.79 106/ul Normal 4.20-5.40 [facility] Comment on above: Performed By: #### C BC #### [facility] [address] [place] [address] Dr. Rocio Hernandez WBC 5.9 103/ul Normal 4.0-11.0 [facility] Comment on above: Performed By: #### C BC #### [facility] [address] [address] [address] Rocio Hernandez FREE T3on 01-12-2023 FREE T3 2.31 pg/mlL Normal 2.18-3.98 [facility] Comment on above: Performed By: #### T SH, CMP, LIPID, FT3 ####[facility] [address] [address]Dr[address] Rocio Hernandez FREE T4on 01-12-2023 Free T4 [Mass/Vol] 1.21 ng/dL Normal 0.76-1.46 [facility] Comment on above: Performed By: #### B 12FOL, FT4 #### [facility] [address] [address] [address] Rocio Hernandez GLYCOHEMOGLOBIN A1Con 2022 ADA RECOMMENDATION SEE BELOW Normal [facility] Comment on above: Result Comment: ADA RECOMMENDED LIMIT 4.0 - 6.0 ADA THERAPEUTIC TARGET < 7.0 ACTION SUGGESTED > 7.0 Performed By: #### A 1C ####[facility] [address] [address]Dr. Rocio Hernandez Glucose [Mass/Vol] 123 mg/dL Normal [facility] Comment on above: Performed By: #### A 1C ####[facility] [address] [address]DrClem Hernandez HbA1c (Bld) [Mass fraction] 5.9 % Normal 4.5-6.2 [facility] Comment on above: Performed By: #### A 1C ####[facility] [address] [address]Dr. Rocio Hernandez LIPID PROFILEon 01-12-2023 CHOL-HDL RATIO NORM SEE BELOW Normal [facility] [place] Comment on above: Result Comment: 3.3 - 4.4 LOW RISK 4.4 - 7.1 AVERAGE RISK 7.1 - 11.0 MODERATE RISK >11.0 HIGH RISK Performed By: #### T SH, CMP, LIPID, FT3 #### [facility] [address] [address] [address] Rocio Hernandez Cholesterol [Mass/Vol] 203 mg/dL Critically high <=200 [facility] Comment on above: Performed By: #### T SH, CMP, LIPID, FT3 #### [facility] [address] [address] [address] oRcio Hernandez Cholesterol in HDL [Mass/Vol] 89 mg/dL Critically high 40-60 [facility] Comment on above: Performed By: #### T SH, CMP, LIPID, FT3 #### [facility] [address] [address] [address] Rocio Hernandez Cholesterol in LDL [Mass/Vol] 87.8 mg/dL Normal [facility] Comment on above: Performed By: #### T SH, CMP, LIPID, FT3 #### [facility] [address] [address] [address] Rocio Hernandez Cholesterol.total/C holesterol in HDL [Mass ratio] 2.3 {ratio} Normal [facility] Comment on above: Performed By: #### T SH, CMP, LIPID, FT3 #### [facility] [address] [address] [address] Rocio Hernandez HDL NORMAL > or = 60 mg/dl - LO W CARDIOVASCULAR RISK <40 mg/dl - HIGH CARDIOVASCULAR RISK Normal [facility] Comment on above: Performed By: #### T SH, CMP, LIPID, FT3 #### [facility] [address] [address] [address] Rocio Hernandez LDL CALC NORMAL SEE BELOW Normal [facility] Comment on above: Result Comment: <100 mg/dl OPTIMAL 100 - 129 mg/dl NEAR OR ABOVE OPTIMAL 130 - 159 mg/dl BORDERLINE HIGH 160 - 189 mg/dl HIGH >190 mg/dl VERY HIGH Performed By: #### T SH, CMP, LIPID, FT3 #### [facility] [address] [address] [address] Rocio Hernandez Triglyceride [Mass/Vol] 131 mg/dL Normal <=150 [facility] Comment on above: Performed By: #### T SH, CMP, LIPID, FT3 #### [facility] [address] [address] [address] Rocio Hernandez VLDL CALC 26.2 mg/dL Normal [facility] Comment on above: Performed By: #### T SH, CMP, LIPID, FT3 #### [facility] [address] [address] [address] Rocio Hernandez MICROALB CREAT RATIO RANDOMo n 01-12-2023 mALB <1.3 Normal <=30.0 [facility] Comment on above: Performed By: #### M CRR ####[facility] [address] [place], [place] [address]Cw. Rocio Hernandez MALB CR RATIO 13.6 mg/g Normal 0.0-29.9 [facility] Comment on above: Performed By: #### M CRR ####[facility] [address] [place], [place] [address]Ea. Rocio Hernandez MALB CR RATIO RANGE SEE BELOW Normal [facility] Comment on above: Result Comment: NO M ICROALBUMINURIA 0-29 MG/G CLINICAL MICROALBUMINURIA 30-300 MG/G MACROALBUMINURIA >300 MG/G Performed By: #### M CRR ####[facility] [address] [id number] Hernandez URINE CREAT 95.84 mg/dL Normal 20.00-300.00 [facility] Comment on above: Performed By: #### M CRR ####[facility] [address] [id number] Hernandez PROF 14(COMP METB)on 023 Albumin [Mass/Vol] 3.8 g/dL Normal 3.4-5.0 [facility] Comment on above: Performed By: #### T SH, CMP, LIPID, FT3 #### [facility] [facility] [address] [address] [address] Rocio Hernandez Albumin/Globulin [Mass ratio] 0.9 {ratio} Normal [facility] Comment on above: Performed By: #### T SH, CMP, LIPID, FT3 #### [facility] [address] [address] [address] Rocio Hernandez ALP [Catalytic activity/Vol] 111 U/L Normal 46-116 [facility] Comment on above: Performed By: #### T SH, CMP, LIPID, FT3 #### [facility] [address] [address] [address] Rocio Hernandez ALT [Catalytic activity/Vol] 42 U/L Normal 14-59 [facility] Comment on above: Performed By: #### T SH, CMP, LIPID, FT3 #### [facility] [address] [address] [address] Rocio Hernandez Anion gap [Moles/Vol] 10.8 mmol/L Normal [facility] Comment on above: Performed By: #### T SH, CMP, LIPID, FT3 #### [facility] [address] [address] [address] Rocio Hernandez AST [Catalytic activity/Vol] 24 U/L Normal 15-37 [facility] Comment on above: Performed By: #### T SH, CMP, LIPID, FT3 #### [facility] [address] [address] [address] Rocio Hernandez Bilirubin [Mass/Vol] 0.4 mg/dL Normal 0.2-1.0 [facility] Comment on above: Performed By: #### T SH, CMP, LIPID, FT3 #### [facility] [address] [address] [address] Rocio Hernandez Calcium [Mass/Vol] 9.6 mg/dL Normal 8.5-10.1 [facility] Comment on above: Performed By: #### T SH, CMP, LIPID, FT3 #### [facility] [address] [address] [address] Rocio Hernandez Chloride [Moles/Vol] 93 mmol/L Critically low 98-107 [facility] Comment on above: Performed By: #### T SH, CMP, LIPID, FT3 #### [facility] [address] [address] [address] Rocio Hernandez CO2 [Moles/Vol] 31.2 mmol/L Normal 21.0-32.0 [facility] Comment on above: Performed By: #### T SH, CMP, LIPID, FT3 #### [facility] [address] [address] [address] Rocio Hernandez Creatinine [Mass/Vol] 1.02 mg/dL Normal 0.55-1.02 [facility] Comment on above: Performed By: #### T SH, CMP, LIPID, FT3 #### [facility] [address] [address] [address] Rocio Hernandez EGFR-AF TUVALUAN >60 Normal >=60 [facility] Comment on above: Performed By: #### T SH, CMP, LIPID, FT3 #### [facility] [address] [address] [address] Rocio Hernandez EGFR-NON AF TUVALUAN 55 mL/min/1.73m2 Critically low >=60 [facility] Comment on above: Performed By: #### T SH, CMP, LIPID, FT3 #### [facility] [address] [place] [address] Dr. Rocio Hernandez Globulin (S) [Mass/Vol] 4.4 g/dL Normal [facility] Comment on above: Performed By: #### T SH, CMP, LIPID, FT3 #### [facility] [address] [place] [address] Dr. Rocio Hernandez Glucose [Mass/Vol] 102 mg/dL Normal 74-106 [facility] Comment on above: Performed By: #### T SH, CMP, LIPID, FT3 #### [facility] [address] [place] [address] Dr. Rocio Hernandez Potassium [Moles/Vol] 4.0 mmol/L Normal 3.5-5.1 [facility] Comment on above: Performed By: #### T SH, CMP, LIPID, FT3 #### [facility] [address] [place] [address] Dr. Rocio Hernandez Protein [Mass/Vol] 8.2 g/dL Normal 6.4-8.2 [facility] Comment on above: Performed By: #### T SH, CMP, LIPID, FT3 #### [facility] [address] [place] [address] Dr. Rocio Hernandez Sodium [Moles/Vol] 131 mmol/L Critically low 136-145 [facility] Comment on above: Performed By: #### T SH, CMP, LIPID, FT3 #### [facility] [address] [place] [address] Dr. Rocio Hernandez Urea nitrogen [Mass/Vol] 6.0 mg/dL Critically low 7.0-18.0 [facility] Comment on above: Performed By: #### T SH, CMP, LIPID, FT3 #### [facility] [address] [address] [address] Rocio Hernandez Urea nitrogen/Creatinine [Mass ratio] 5.9 mg/mg Normal [facility] Comment on above: Performed By: #### T SH, CMP, LIPID, FT3 #### [facility] [address] [address] [address] Rocio Hernandez TSHon 01-12-2023 TSH 5.647 uIU/mL Critically high 0.358-3.740 [facility] Comment on above: Performed By: #### T SH, CMP, LIPID, FT3 #### [facility] [address] [address] [address] Rocio Hernandez VIT B12 AND FOLATEon 023 Cobalamin (Vitamin B12) [Mass/Vol] 1189.0 pg/mL Critically high 193.0-986.0 [facility] Comment on above: Performed By: #### B 12FOL, FT4 #### [facility] [address] [place] [address] Dr. Rocio Hernandez FOLATE 27.30 ng/mL Normal 8.60-58.90 [facility] Comment on above: Performed By: #### B 12FOL, FT4 #### [facility] [address] [place] [address] Dr. Rocio Hernandez MG MAMM SCREEN 3D TANIA CADon 12-19-2022 MG MAMM SCREEN 3D TANIA CAD Patient: MADAN PERRY Exam Date: 12/19/2022 : 1960 Gender:F Ordering : DR [place] D.O. Admission #: [id number] Family : Order #: [id number] CLICK HERE TO VIEW EXAM RADIOLOGY REPORT [...] ovarian cancer at age 54. LOCATION: [facility] BREAST COMPOSITION: Scattered areas fibroglandular density. [...] Flores M.D. on 12/19/2022 at 11:19 Normal [facility] XR DEXA BONE DENSITYon 12-19 XR [...] by: RODRI FLORES Date: 2022-12-19 10:01 Normal [facility] FREE T3on 03-22-2022 FREE T3 2.43 pg/mlL Normal 2.18-3.98 [facility] Comment on above: Performed By: #### B MP, FT3, TSH ####[facility] [address] [address] Rocio Hernandez FREE T4on 03-22-2022 Free T4 [Mass/Vol] 1.43 ng/dL Normal 0.76-1.46 [facility] Comment on above: Performed By: #### F T4 ####[facility] [address] [address]. Rocio Hernandez PROF CHEM 8 (BAS METB)on Anion gap [Moles/Vol] 10.2 mmol/L Normal [facility] Comment on above: Performed By: #### B MP, FT3, TSH ####[facility] [address] [address]Dr. Rocio Hernandez Calcium [Mass/Vol] 8.8 mg/dL Normal 8.5-10.1 [facility] Comment on above: Performed By: #### B MP, FT3, TSH ####[facility] [address] [place], [place] [address]Dr. Rocio Hernandez Chloride [Moles/Vol] 104 mmol/L Normal 98-107 [facility] Comment on above: Performed By: #### B MP, FT3, TSH ####[facility] [address] [place], [place] [address]Dr. Rocio Hernandez CO2 [Moles/Vol] 31.7 mmol/L Normal 21.0-32.0 [facility] Comment on above: Performed By: #### B MP, FT3, TSH ####[facility] [address] [place], [place] [address]Dr. Rocio Hernandez Creatinine [Mass/Vol] 0.96 mg/dL Normal 0.55-1.02 [facility] Comment on above: Performed By: #### B MP, FT3, TSH ####[facility] [address] [place], [place] [address]Dr. Rocio Hernandez EGFR-AF TUVALUAN >60 Normal >=60 [facility] Comment on above: Performed By: #### B MP, FT3, TSH ####[facility] [address] [place], [place] [address]Dr. Rocio Hernandez EGFR-NON AF TUVALUAN 59 mL/min/1.73m2 Critically low >=60 [facility] Comment on above: Performed By: #### B MP, FT3, TSH ####[facility] [address] [address]. Rocio Hernandez Glucose [Mass/Vol] 110 mg/dL Critically high 74-106 T [facility] Comment on above: Performed By: #### B MP, FT3, TSH ####[facility] [address] [address]. Rocio Hernandez Potassium [Moles/Vol] 2.9 mmol/L Critically low 3.5-5.1 [facility] Comment on above: Result Comment: TEST REPEATED CRITICAL VALUE VERIFIED Performed By: #### B MP, FT3, TSH ####[facility] [address] [address]. Rocio Hernandez Sodium [Moles/Vol] 141 mmol/L Normal 136-145 [facility] Comment on above: Performed By: #### B MP, FT3, TSH ####[facility] [address] [address]. Rocio Hernnadez Urea nitrogen [Mass/Vol] 12.0 mg/dL Normal 7.0-18.0 [facility] Comment on above: Performed By: #### B MP, FT3, TSH ####[facility] [address] [address]. Rocio Hernandez Urea nitrogen/Creatinine [Mass ratio] 12.5 mg/mg Normal [facility] Comment on above: Performed By: #### B MP, FT3, TSH ####[facility] [address] [address]. Rocio Hernandez TSHon 03-22-2022 TSH 0.137 uIU/mL Critically low 0.358-3.740 [facility] Comment on above: Performed By: #### B MP, FT3, TSH ####[facility] [address] [address] Rocio Hernandez Patient Letter FTMCon 2020 [place] [facility] [place]Inserted Image. Wilda ble to display) May 26, 2021 MADAN PERRY [address] [place] [address] MADAN PERRY 1960 Dear Madna, This is a SECOND ATTEMPT to remind you that you are due for an appointment with [facility]. Please contact our office at [phone] to schedule an appointment at your earliest convenience. Thank you, [facility] Reminderson 05-26-2021 Reminders - From: Jane Onofre To: GINA - Reminders/Recalls; Sent: 01/18/2021 12:33:31 EDT Show up: 04/25/2021 12:33:00 EDT Subject: Ambulatory Reminder Due Date/Time: 06/09/2021 12:33:00 EDT Reminder/Recall sara peace 5 year colon 06/09/2021 first recall letter second rcall letter [place] [facility] [place] [facility] [place] (Inserted Image. Wilda ble to display) May 05, 2021 MADAN PERRY [address] [place] [address] MADAN PERRY 1960 Dear Madan, This is a reminder that you are due for an appointment with [facility]. Please contact our office at [phone] to schedule an appointment at your earliest convenience. Thank you, [facility] Vital Signs Date Time Vital Sign Value Performing Clinician Facility 05-09-2022 16:35-0400 Body height 161.29 cm Adilia Mederos Other [facility] Other 05-09-2022 16:35-0400 Body mass index (BMI) [Ratio] 25.63 kg/m2 Adilia Mederos Other [facility] Other 05-09-2022 16:35-0400 Body temperature 97.8 [degF] Adilia Mederos Other [facility] Other 05-09-2022 16:35-0400 Body weight 66.68 kg Adilia Mederos Other [facility] Other 05-09-2022 16:35-0400 Diastolic blood pressure 79 mm[Hg] Adilia Mederos Other [facility] Other 05-09-2022 16:35-0400 Respiratory rate 18 /min Adilia Mederos Other [facility] Other 05-09-2022 16:35-0400 SaO2% (BldA) [Mass fraction] 98 % Adilia Mederos Other [facility] Other 05-09-2022 16:35-0400 Systolic blood pressure 136 mm[Hg] Adilia Mederos Other [facility] Other 07-21-2021 16:05-0400 Body height 161.29 cm Lilian Clarkmond Other [facility] Other 07-21-2021 16:05-0400 Body mass index (BMI) [Ratio] 26.5 kg/m2 Lilian Hanna Other [facility] Other 07-21-2021 16:05-0400 Body temperature 96.2 [degF] Lilian Hanna Other [facility] Other 07-21-2021 16:05-0400 Body weight 68.95 kg Lilian Hanna Other [facility] Other 07-21-2021 16:05-0400 Diastolic blood pressure 95 mm[Hg] Lilian Ferreira Other [facility] Other 07-21-2021 16:05-0400 Respiratory rate 18 /min Lilian Ferreira Other [facility] Other 07-21-2021 16:05-0400 SaO2% (BldA) [Mass fraction] 99 % Lilian Ferreira Other [facility] Other 07-21-2021 16:05-0400 Systolic blood pressure 132 mm[Hg] Lilian Ferreira Other [facility] Other 06-22-2021 14:20-0400 Body height 161.29 cm Adilia Cardenasault Other [facility] Other 06-22-2021 14:20-0400 Body mass index (BMI) [Ratio] 25.98 kg/m2 Adilia Cardenasault Other [facility] Other 06-22-2021 14:20-0400 Body temperature 96.4 [degF] Adilia Cardenasault Other [facility] Other 06-22-2021 14:20-0400 Body weight 67.59 kg Adilia Cardenasault Other [facility] Other 06-22-2021 14:20-0400 Diastolic blood pressure Adilia Cardenasault Other [facility] Other 06-22-2021 14:20-0400 Respiratory rate 18 /min Adilia Rosa M Other [facility] Other 06-22-2021 14:20-0400 SaO2% (BldA) [Mass fraction] 98 % Adilia Mederos Other [facility] Other 06-22-2021 14:20-0400 Systolic blood pressure 111 mm[Hg] Adilia Mederos Other [facility] Other Encounters Encounter Date Encounter Type Care Provider Facility Start: 02-20-2024 End: 02-20-2024 ambulatory [facility] Start: 01-15-2024 End: 01-16-2024 [facility] Start: 12-04-2023 End: 12-05-2023 [facility] Start: 11-06-2023 End: 11-07-2023 ambulatory Meet Harp MD Facility: [facility] Start: 10-09-2023 End: 10-10-2023 [facility]ulatory [facility] Start: 08-25-2023 End: 08-25-2023 ambulatory ALIZA AGUILAR Facility:[facility] Start: 08-25-2023 End: 08-25-2023 Office outpatient visit 15 minutes Aliza Aguilar MD Work Phone: [facility] Comment on above: Hand arthritis (Prim maurisio Dx) Start: 08-21-2023 End: 08-22-2023 ambulatory Meet Harp MD Facility: [facility] Start: 08-19-2023 Letter encounter Yesy Covarrubias OT Work Phone: [facility] Start: 07-31-2023 End: 08-01-2023 ambulatory Meet Harp MD Facility: [facility] Start: 07-24-2023 End: 07-25-2023 ambulatory Meet Harp MD Facility: [facility] Start: 07-20-2023 End: 07-20-2023 ambulatory Aliza Aguilar Facility:[facility] Start: 07-20-2023 End: 07-20-2023 ambulatory DO [place] Work Phone: [facility] Work Phone: Start: 07-20-2023 End: 07-20-2023 Patient encounter procedure DO [place] Work Phone: [facility] [address] Work Phone: Start: 07-10-2023 End: 07-11-2023 ambulatory Meet Harp MD Facility:[facility] Start: 06-16-2023 End: 06-17-2023 ambulatory UNKNOWN PROVIDER [facility] Start: 06-16-2023 End: 06-16-2023 Office outpatient visit 25 minutes Aliza Aguilar MD Work Phone: [address] [facility] Comment on above: Left hand pain (Prim maurisio Dx) Start: 06-16-2023 End: 06-16-2023 Subsequent hospital visit by physician [address] Op Op X-Ray 1 Work Phone: [facility] Comment on above: Left hand pain Start: 02-07-2023 End: 02-08-[address] [place] Facility:[facility] Start: 01-27-2023 End: 01-28-[address] [place] Facility:[facility] Start: 01-23-2023 End: 02-22-2023 ambulatory SHAIKH Eduardo ROSS Facility:[facility] Start: 01-16-2023 Encounter for genera l adult medical examination without abnormal findings DR [place] [facility] Start: 01-12-2023 End: 01-13-[address] [...] Letter encounter Yesy Covarrubias OT [facility] Start: 05-09-2022 End: 05-09-2022 ambulatory Adilia Mederos Other [facility] Other Start: 05-09-2022 Office outpatient vi sit 15 minutes Adilia Mederos [facility] Start: 05-04-2022 End: 05-05-[address] [place] Facility:[facility] Start: 04-25-2022 End: 05-25-2022 ambulatory DUARTE H FAWWAAbdifatah Facility:[facility] Start: 03-25-2022 End: 04-22-2022 ambulatory DUARTE H FAWWAD Facility:[facility] Start: 03-23-[address] [place] Fac ility:[facility] Start: 03-22-2022 End: 03-23-[address] [place] Facility: Start: 07-21-2021 Patient encounter procedure Lilian Ferreira [facility] Start: 06-22-2021 Office outpatient vi sit 15 minutes Adilialeonid Mederos [facility] Procedures Date Procedure Procedure Detail Performing Clinician Start: 08-25-2023 Injection 1 tendon sheath/ligament aponeurosis Aliza Aguilar MD Work Phone: Start: 06-16-2023 Radex hand minimum 3 views Aliza Aguilar MD Work Phone: Plan of Treatment Date Care Activity Detail Author Start: 06-04-2028 Tetanus vaccination Tetanus (T d or Tdap) Booster [facility] Start: 01-13-2028 Cholesterol [Mass/volume] in Serum or Plasma [facility] Start: 08-25-2023 End: 08-25-2023 Patient encounter procedure 08/25/2023 11:30 AM EST Office Visit [address] [facility] [address] [place] [address] Aliza Aguilar MD [address] [place] [id number] [facility] Start: 07-20-2023 XR pre/post mri xray XR pre/post mri xray [facility] Start: 07-20-2023 [facility] Start: 07-20-2023 MR Wrist - left WO contrast [facility] Start: 07-20-2023 MRI of left wrist MR wrist LT wo con [facility] Start: 07-20-2023 MR Hand - left WO contrast [facility] Start: 07-20-2023 MRI of left hand MR hand LT wo con [facility] Start: 06-25-2023 Influenza vaccination Influenza Vacc ine (#1) [facility] Start: 06-16-2023 End: 06-16-2024 MR Wrist - left WO contrast MR WRIST LEFT W/O Imaging Routine Left hand pain Expected: 06/16/2023, Expires: 06/16/2024 [facility] [employer] Work Phone: Comment on above: Expected: [...] wellness visit Annual W ellness Visit (G0438) [facility] Start: 2009 Measurement of occul t [...] for malign ant neoplasm of breast [facility]ammography [facility] Start: 02-11-1980 Screening for malign ant neoplasm of cervix Pap Smear [facility] Start: 1977 Hepatitis C screening [facility]atitis C [facility] Start: 1974 HIV screening HIV Test [facility] Start: 1960 COVID-19 Vaccine ( formulation) COVID-19 Vaccine ( formulation) [facility] Start: 1960 Screening for malign ant neoplasm of colon Colonoscopy [facility] Immunizations Immunization Date Immunization Notes Care Provider Fa cili 08-11-2023 influenza, injectabl e, quadrivalent, preservative free Aliza Aguilar MD Work Phone: [facility] 08-11-2023 Respiratory syncytia l virus (RSV), vaccine, bivalent, protein subunit RSV prefusion F, diluent reconstituted, 0.5 mL, preservative free (PBP=065) Aliza Aguilar MD Work Phone: [facility] 06-18-2022 influenza, injectabl e, quadrivalent, preservative free Aliza Aguilar MD Work Phone: [facility] 06-18-2022 influenza virus vacc ine, unspecified formulation Aliza Aguilar MD Work Phone: [facility] 02-05-2022 Pfizer Monovalent (1 2+ yrs) SARS-COV-2 (COVID-19) vaccine, mRNA, spike protein, LNP, pres. free, 30 mcg/0.3mL dose, betito-sucrose (WKO=797) Aliza Aguilar MD Work Phone: [facility] 08-11-2021 influenza, injectabl e, quadrivalent, preservative free Yesy Marci OT Work Phone: [facility] 08-11-2021 influenza virus vacc ine, unspecified formulation Yesy Marci OT Work Phone: [facility] 07-24-2020 zoster vaccine recombinant K athryn Marci OT Work Phone: [facility] 07-11-2020 Influenza, injectabl e, Madin Zakia Canine Kidney, preservative free, quadrivalent Yesy Marci OT Work Phone: [facility] 04-18-2020 zoster vaccine recombinant K athryn Marci OT Work Phone: [facility] 08-28-2019 Influenza, injectabl e, Madin Charlotte Canine Kidney, preservative free, quadrivalent Yesy Marci OT Work Phone: [facility] 07-01-2019 influenza, high dose seasonal, preservative-free Yesy Marci OT Work Phone: [facility] 06-25-2019 pneumococcal polysac charide vaccine, 23 valent Yesy Marci OT Work Phone: [facility] 07-06-2018 influenza, injectabl e, quadrivalent, contains preservative Yesy Marci OT Work Phone: [facility] 06-04-2018 tetanus toxoid, redu karen diphtheria toxoid, and acellular pertussis vaccine, adsorbed Yesy Marci OT Work Phone: [facility] 08-19-2017 influenza, injectabl e, quadrivalent, preservative free Yesy Marci OT Work Phone: [facility] 08-09-2017 influenza, injectabl e, quadrivalent, contains preservative Yesy Marci OT Work Phone: [facility] 08-01-2016 influenza, injectabl e, quadrivalent, preservative free Yesy Marci OT Work Phone: [facility] 07-11-2015 influenza, injectabl e, madin zakia canine kidney, preservative free Yesy Marci OT Work Phone: [facility] 07-11-2015 pneumococcal conjuga te vaccine, 13 valent Yesy Marci OT Work Phone: [facility] 08-13-2009 novel influenza-H1N1 -09, preservative-free, injectable Yesy Marci OT Work Phone: [facility] 07-17-2009 influenza virus vacc ine, unspecified formulation Yesy Marci OT Work Phone: [facility] 08-15-2008 influenza virus vacc ine, unspecified formulation Yesy Marci OT Work Phone: [facility] Payers Date Payer Category Payer Self-pay [id number] 2018 Unknown [id number] 2013 Medicare [id number] [id number] 1960 [facility] [id number] 2.16.840.1.480272.19 1960 Medicare [id number] 2.16.840.1.382239.19 1959 Unknown [id number] 2.16.840.1.125887.3.579.2.593 1959 Unknown [id number] 2.16.840.1.619782.3.579.2.593 1959 Unknown [id number] 2.16.840.1.642941.3.579.2.593 1959 Unknown [id number] 2.16.840.1.447525.3.579.2.593 1959 Unknown [id number] 2.16.840.1.362265.3.579.2.593 1959 Unknown [id number] 2.16.840.1.854027.3.579.2.59 1959 Unknown [id number] 2.16.840.1.767990.3.579.2.593 1959 Unknown [id number] 2.16.840.1.684611.3.579.2.593 1959 Unknown [id number] 2.16.840.1.608166.3.579.2.593 1959 Unknown [id number] 2.16.840.1.158427.3.579.2.59 1959 Unknown [id number] 2.16.840.1.301165.3.579.2.593 1959 Unknown [id number] 2.16.840.1.904481.3.579.2.593 1959 Unknown [id number] 2.16.840.1.126194.3.579.2.593 1959 Unknown [id number] 2.16.840.1.101808.3.579.2.59 1959 Unknown [id number] 2.16.840.1.914793.3.579.2.593 1959 Unknown [id number] 2.16.840.1.523026.3.579.2.593 1959 Unknown [id number] 2.16.840.1.277221.3.579.2.593 1959 Unknown [id number] 2.16.840.1.783718.3.579.2.593 1959 Unknown [id number] 2.16.840.1.727379.3.579.2.593 1959 Unknown [id number] 2.16.840.1.813119.3.579.2.593 1959 Unknown [id number] 2.16.840.1.318244.3.579.2.732 1959 Unknown [id number] 2.16.840.1.801301.3.579.2.732 1959 Unknown [id number] 2.16.840.1.661557.3.579.2.732 1959 Unknown [id number] 2.16.840.1.132747.3.579.2.196 1959 Unknown [id number] 2.16.840.1.884274.3.579.2.196 1959 Unknown [id number] 2.16.840.1.755768.3.579.2.196 1959 Unknown [id number] 2.16.840.1.622328.3.579.2.196 1959 Unknown [id number] 2.16.840.1.730965.3.579.2.196 1959 Unknown [id number] 2.16.840.1.436413.3.579.2.196 1959 Unknown [id number] 2.16.840.1.396904.3.579.2.196 1959 Unknown [id number] 2.16.840.1.435884.3.579.2.196 1959 Unknown [id number] 2.16.840.1.794581.3.579.2.1286 Medicare Medicare Nonpatient [id number] Unknown [id number] 2.16.840.1.607466.3.579.2.531 Social History Date Type Detail Facility Unknown if ever smoked [facility] Other Sex Assigned At [facility] Other Start: 05-31-2019 Tobacco smoking stat [facility] Ex-smoker [facility] History of tobacco use [facility] Start: [facility]2019 Tobacco use and exposure Smokeless tobacco non-user [facility] Start: 04-07-2020 Alcohol intake Lifetime non-d han (finding) [facility] Start: 07-09-2019 History SDOH Alcohol Frequency 1 [facility] Start: 1960 Sex Assigned At Not on file [facility] Start: 1960 Sex Assigned At Female [facility] Medical Equipment Procedure Code Equipment Code Equipment Origin al Text Equipment Identifier Dates [place] Suture Mi crop ranch hand [employer]cre[employer] Ea1 [id number] - [id number] Start: 07-22-2019 Clinical Notes 06-22-2021 to 08-25-2023 Milady Carrasco RN - 08/25/2023 11:33 AM Aliza Mendoza MD - 08/25/2023 11:28 AM ESTAddendum Note - lAiza Aguilar MD - 06/16/2023 11:34 AM Aliza Leavitt MD - 06/16/2023 11:20 AM EDT Note Date & Type Note Facility 08-25-2023 History of Presen t illness Narrative CC: Left hand and wrist pain Follow up after MRI done at [facility]. Patient Office Note or Post OP Note Name:Madan Perry Date: 08/25/2023 [facility] No chief complaint on file. EXAM: [...] of this patient. Aliza Aguilar MD Injection Procedure.formerly [facility] 08/25/2023 [id number] Madan Perry The patient requested an injection [...] a dressing applied. documented in this encounter [facility] 06-16-2023 Note Addended by: ALIZA AGUILAR on: 06/16/2023 11:34 AM Modules accepted: Orders [facility] 06-16-2023 Miscellaneous Notes Addended by: ALIZA AGUILAR on: 06/16/2023 11:34 AM Modules accepted: Orders documented in this encounter [facility] 06-16-2023 History of Presen t illness [...] continues on coumadin. documented in this encounter [facility] 05-09-2022 Evaluation note Encounter Date Diagnosis [...] Xray that was ordered outpatient by PCP [facility] Other 08-10-2022 NotePROCEDURE: XR FOOT RT MIN 3 VIEWS COMPARISON: None. HISTORY: Pain in right foot FINDINGS: BONES:No fracture, acute abnormality, or significant arthropathy. Mild enthesopathic spurring of the calcaneus at the Achilles insertion SOFT TISSUES:Negative. No visible soft tissue swelling. EFFUSION:None visible. OTHER: Negative. IMPRESSION: No acute abnormality Electronically authenticated by: MARTINEZ HARVEY Date: 2022-05-04 16:22[facility]10-27-2021 Evaluation note* Encounter Date Diagnosis Assessment Notes Treatment Notes Treatment Clinical Notes Jun, Swelling of left elbow (ICD-10 - M25.422) Jun, Other Patient refe rred to the ER due to swelling, ecchymosis, pain of her left elbow with no known injury. It is felt the patient needs blood work to evaluate [facility] Other 09-28-2021 Evaluation note* Encounter Date Diagnosis Assessment Notes Treatment Notes Treatment Clinical Notes May, Bee sting, undetermined intent, initial encounter (ICD-10 - T63.444A) May continue Xyzal and Benadryl as directed. [facility] Other Evaluation note* Diagnosis Left hand pain- Primary Pain in limb Left hand pain Pain in limb [facility] Diagnosis Left hand pain Pain in limb [facility] Phone: Evaluation note* Diagnosis [...] second t roseann Hospitalization History see above [facility] Other Summary Purpose Family History No Family [...] Diagnoses Left hand pain Aliza Aguilar MD [address] [place] [address] Referral ID Status Reason Start Date Expiration Date Visits Requested Visits Authorized [id number] Authorized Patient Preference 06/16/2023 06/16/2024 3 3 Comments Near home, [place], [place] Specialty Diagnoses / Procedures Referred By Contac t Referred To Contact Radiology Diagnoses Left hand pain Procedures MR WRIST LEFT W/O Aliza Agiular MD [address] [place] [address] [facility] MRI [address] [place] [address] Referral ID Status Reason Start Date Expiration Date V isits Requested Visits Authorized [id number] Authorized 06/16/2023 06/15/2024 1 1 Specialty Diagnoses / Procedures Referred By Contac t Referred To Contact Radiology Diagnoses Left hand pain Procedures XR HAND LEFT 3 VIEWS [facility] [address] [address] [facility] DIAGNOSTIC RADIOLOGY [address] [place] [address] [place] [address] Referral ID Status Reason Start Date Expiration Date Visits Re quested Visits Authorized [id number] Closed 06/16/2023 06/15/2024 1 1 Chief Complaint and Reason for Visit Chief Complaint median nerve karel krista Additional Source Comments INFORMATION SOURCE (unrecogn ized section and content) DATE CREATED AUTHOR 05/27/2021 [facility] DATE CREATED AUTHOR AUTHOR'S ORGANIZ ATION 03/03/2023 [facility] DATE CREATED AUTHOR AUTHOR'S ORGANIZ ATION 07/30/2023 [facility] DATE CREATED AUTHOR AUTHOR'S ORGANIZ ATION 08/28/2023 [facility] DATE CREATED AUTHOR AUTHOR'S ORGANIZ ATION 12/23/2023 [facility] DATE CREATED AUTHOR AUTHOR'S ORGANIZ ATION 02/01/2024 [facility] DATE CREATED AUTHOR AUTHOR'S ORGANIZ ATION 02/20/2024 [facility] REASON FOR VISIT (unrecogniz ed section and content) Reason Comments Hand/finger symptoms Specialty Diagnoses / Procedures Referred By Contac t Referred To Contact Radiology Diagnoses Left hand pain Procedures XR HAND LEFT 3 VIEWS [facility] [address] [place] [address] [facility] DIAGNOSTIC RADIOLOGY [address] [place] [address] [place] [address] Referral ID Status Reason Start Date Expiration Date Visits Re quested Visits Authorized [id number] Closed 06/16/2023 06/15/2024 1 1 Reason Comments Hand/finger symptoms Care Teams (unrecognized sec tion and content) Director Global Sales Relationship Specialty Start Date End Date Yesy Covarrubias OT [address] [place] [address] [place] [address] Occupational Therapist Occupational Therapy 06/30/20 Aliza Aguilar MD [address] [place] [address] Physician Orthopaedic Hand Service 06/30/20 Director Global Sales Relationship Specialty Start Date End Date Yesy Covarrubias OT [address] [place] [address] [place] [address] Occupational Therapist Occupational Therapy 06/30/20 Aliza Aguilar MD [address] [place] [address] Physician Orthopaedic Hand Service 06/30/20 Director Global Sales Relationship Specialty Start Date End Date Yesy Covarrubias OT [address] [place] [address] [place] Occupational Therapist Occupational Therapy 06/30/20 Aliza Aguilar MD [address] [place] [address] Physician Orthopaedic Hand Service 06/30/20 Team Status: Active Member Role Status Dates [place] , DO Primary Care Provider Active Team Status: Inactive Member Role Status Dates [place] , DO Primary Care Provider Active Aliza Aguilar Attending Provider Active Director Global Sales Relationship Specialty Start Date End Date Yesy Covarrubias, OT [address] [facility] [place] [address] Occupational Therapist Occupational Therapy 06/30/20 Aliza Aguilar MD [address] [place] [address] Physician Orthopaedic Hand Service 06/30/20 Director Global Sales Relationship Specialty Start Date End Date Yesy Covarrubias, OT [address] [facility] [place] [address] Occupational Therapist Occupational Therapy 06/30/20 Aliza Aguilar MD [address] [place] [address] Physician Orthopaedic Hand Service 06/30/20 Goals (unrecognized [...] BE BASED ON THE PRIMARY CLINICAL RECORDS. [facility] [employer] [facility]. provides no warranty or guarantee of the accuracy or completeness of information in this document.
== END 2024-02-26 07:13 | disposition home or self-care (01) ==
LOC: PST 07:12
PROVIDERS: PCP Family Medicine; Visit Provider Surgery
DX: Z01.818 Encounter for other preprocedural examination (principal); R13.10 Dysphagia, unspecified

== ENCOUNTER 2024-02-28 07:18 | Day surgery (SDC) | payer BC, MEDICARE, SELFPAY ==
--- OUTSIDE RECORDS SUMMARY | 2024-02-28 07:21 | XMS_ITS | CCD ---
Author Organization [facility] Care Team Providers Care Vice President Of Software Development Name Role Phone Adilia Mederos Unavailable Lilian Ferreira Unavailable Yesy Covarrubias OT Unavailable Aliza Aguilar MD Unavailable [phone], [address] TANK [facility] Primary [facility] [...] OT, Yesy Unavailable Aliza Aguilar MD. Unavailable LakeDO [...] Acetaminophen / oxyCODONE Drug Allergy stomach upset [facility] Other (3 sources) Adhesive Tape Propensity to adverse reactions rash [facility] Other (3 sources) Cephalexin; Translations: [CEPHALEXIN] Drug Allergy 12-22-19 06 anaphylaxis [facility] Repository (10 sources) Erythromycin; Translations: [ERYTHROMYCIN] Drug Allergy 12-22-19 06 [facility] ([facility] sources) Iodine; Translations: [iodine] Drug Allergy 01-31-[address] [facility] Repository (4 sources) Latex; Translations: [LATEX] Propensity to adverse reactions 12-22-19 06 rash [facility] Repository (3 sources) Penicillin G Benzathine Drug allergy anaphylaxis [facility] Other (3 sources) Procaine Drug Allergy headaches [facility] Other (2 sources) Cephalexin; Translations: [Keflex] Drug Allergy 01-31-20 13 anaphylaxis [facility] Repository (1 source) Novocain Drug allergy Unknown [facility] Other (6 sources) Acetaminophen; Translations: [ACETAMINOPHEN] Drug [...] G POTASSIUM] Drug Allergy 02-01-20 [facility] (7 sources) Penicillins; Translations: [PENICILLINS] Propensity to adverse reactions to drug 12-22-19 [facility] (7 sources) Quinolones (Antibiotic); Translations: [QUINOLONES] Propensity to adverse reactions to drug 12-22-19 06 Respiratory Problems [facility] Work Phone: (6 sources) Sulfonamides (Antibiotic); Translations: [SULFA ANTIBIOTICS] Propensity to adverse reactions to drug 02-01-20 08 Rash [facility] (6 sources) Bandage Tape; Translations: [BANDAGE TAPE] Propensity to adverse reactions 09-03-20 13 Rash [facility] (7 sources) Erythromycin Base; Translations: [ERYTHROMYCIN BASE] Propensity to adverse reactions to drug 01-24-20 Other [facility] (7 sources) Iodides; Translations: [IODIDES] Propensity to adverse reactions to drug 10-31-19 14 Hives [facility] (6 sources) Other (Review Comments!); Translations: [OTHER (REVIEW COMMENTS!)] Propensity to adverse reactions to drug 07-22-20 19 Agitation [facility] Work Phone: (1 source) Ciprofloxacin Drug Allergy [facility] Repository (1 source) Iodine (And Iodine Containting Drugs) Drug allergy (disorder) 01-31-20 13 [facility] Repository (1 source) Latex Drug allergy (disorder) 01-31-20 13 [facility] Repository (2 sources) Morphine; Translations: [MORPHINE] Drug Allergy 10-21-19 14 [facility] Repository (1 source) Penicillins Drug allergy (disorder) 01-31-20 13 [facility] Repository (1 source) Sulfonamides (Antibiotic) Drug allergy (disorder) 01-31-20 13 [facility] Repository (1 source) Darvocet-N 100 Drug allergy (disorder) 01-31-20 13 [facility] Repository (1 source) E.E.S. Drug allergy (disorder) 01-31-20 13 [facility] Repository (1 source) Adhesive agent; Translations: [ADHESIVE] [...] sources) Barbiturate, Central Nervous System Stimulant, Methylxanthine Vapcdfqvbs-MYUU-Mr ffeine 50-300-40 MG CAPS Take by mouth daily as needed. 0 Active take 1 capsule by [facility] every four hours Qwnbxjcfaq-ARKC-Lawlgpjt 50-325-40 MG 1 capsule as needed Orally every 4 hrs Not-Taking Fioricet Active acetaminophen 325 mg / HYDROcodone bitartrate 5 mg oral tablet (10 sources) Opioid Agonist take 1 tablet by mouth once hydrocodone-acetaminophen (NORCO) 5-325 mg per tablet Take 1 Tablet by mouth. 0 Active HYDROcodone-Acet aminophen 7.5-300 MG Orally Not-Taking [place] Active acyclovir 400 mg oral tablet (8 [...] by mouth daily. Followed in coumadin clinic [place], [place] 0 Active take 1 tablet by [...] 4 mg/0.1 mL nasal liquid Instill 1 [place] into one nostril (alternate sides) as needed. 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 [facility], [address] BASIC MET PANEL W/GFRon 12-0 -2022 Calcium [Mass/Vol] 9.2 mg/dL Normal (8.6 - 10.6) [facility] Comment on above: Order Comment: FACIL ITY: [facility] [id number] Performed By: #### C HEM-B #### [facility] [address] [facility], [address] Chloride [Moles/Vol] 99 mmol/L Normal (98 - 107) [facility] Comment on above: Order Comment: FACIL ITY: [facility] [id number] Performed By: #### C HEM-B #### [facility] [address] [facility], [address] CO2 [Moles/Vol] 27 mmol/L Normal (22 - 30) [facility] Comment on above: Order Comment: FACIL ITY: [facility] [id number] Performed By: #### C HEM-B #### [facility] [address] [facility], [address] Creatinine [Mass/Vol] 0.74 mg/dL Normal (0.52 - 1.04) [facility] Comment on above: Order Comment: FACIL ITY: [facility] [id number] Performed By: #### C HEM-B #### [facility] [address] [facility], [address] GFR- AMER 95.6 ML/M1.7 Normal (60.0 - 140.1) [facility] Comment on above: Order Comment: [facility] [id number] Performed By: #### C HEM-B #### [facility] [address] [place], [address] GFR-NON AFRIC-AMER 79.0 ML/M1.7 Normal (60.0 - 115.8) [facility] Comment on above: Order Comment: FACIL ITY: [facility] [id number] Performed By: #### C HEM-B #### [facility] [address] [place], [address] Glucose [Mass/Vol] 100 mg/dL Normal (74 - 106) [facility] Comment on above: Order Comment: FACIL ITY: [facility] [id number] Performed By: #### C HEM-B #### [facility] [address] [place], [address] Potassium [Moles/Vol] 4.6 mmol/L Normal (3.5 - 5.1) [facility] Comment on above: Order Comment: FACIL ITY: [facility] [id number] Performed By: #### C HEM-B #### [facility] [address] [place], [address] Sodium [Moles/Vol] 136 mmol/L Low (137 - 145) [facility] Comment on above: Order Comment: FACIL ITY: [facility] [id number] Performed By: #### C HEM-B #### [facility] [address] [place], [address] Urea nitrogen [Mass/Vol] 11 mg/dL Normal (7 - 17) [facility] Comment on above: Order Comment: FACIL ITY: [facility] [id number] Performed By: #### C HEM-B #### [facility] [address] [place], [address] Progress Noteson 08-25-2023 Numerical Control Operator Authentication Interface Message Text CC: Left hand and wrist pain [facility] Normal [facility] Numerical Control Operator Authentication Interface Message Text Patient Office Note or Post OP Note Name:Madan Perry Date: 08/25/2023 CC: left wrist pain at [facility] area No chief complaint on file. [...] this patient. Aliza Aguilar MD Injection Procedure.formerly [facility] 08/25/2023 [id number] Madan Perry The patient requested an injection [...] alcohol and a dressing applied. Normal [facility] MR wrist LT wo holly 023 MR wrist LT wo con [facility] Main [address] [address] MRI Report Signed Patient: Madan Perry MR#: [id number] : 1960 Acct:[id number] Age/Sex: 63 / F ADM Date: 07/20/23 [facility] Attending Dr: Aliza Aguilar Copies to: Aliza Aguilar Ordering Provider: Aliza Aguilar Date of Service: 07/20/23 MR/MR hand LT wo con: MEDIAN NERVE COMPRESSION ([id number]) MR/MR wrist LT wo con: MEDIAN NERVE COMPRESSION ([id number]) XR/XR pre/post mri xray: MEDIAN NERVE COMPRESSION [...] Jose Dial M.D.07/21/2023 7:38 PM Dictation Location: [facility] Transcribed By: [facility] 07/21/231937 Dictated By: Jose Dial DO 07/20/23 1525 Signed By: 07/21/231937 Normal [facility] Telephone Encounteron 2022 Numerical Control Operator Authentication Interface Message Text Spoke with patient and scheduled. Normal [facility] Telephone Encounteron 2022 Numerical Control Operator Authentication Interface Message Text Pt called [...] she would need something sooner. Contact pt @[phone] Normal [facility] Addendum Noteon 06-16-2023 Numerical Control Operator Authentication Interface Message Text Addended by: ALIZA AGUILAR on: 06/16/2023 11:34 AM Modules accepted: Orders Normal [facility] Progress Noteson 06-16-2023 Numerical Control Operator Authentication Interface Message Text Patient Office [...] this patient. Aliza Aguilar MD Normal [facility] Numerical Control Operator Authentication Interface Message Text CC: Left hand pain Pain Left wrist and hand; tingling to middle and ring fingers. Pt states ganglion which was removed has returned and is painful. CMC joint painful. 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 Normal [facility] XR HAND LEFT 3 VIEWSon 06-16 [...] findings. Left hand MACRO: None Normal [facility] XR Hand - left 3 Viewson [...] with the findings. Left hand MACRO: None [facility] Radiology Study observation (narrative) [facility] XR Hand - left 3 ViewsOrdere d By: Alberto Llanes on 06-16-2023 [facility] Work Phone: US DARNELL DOP LEG BILon [...] by: LOUIS SEWELL Date: 2023-01-27 17:[address] [facility] CBC AUTO DIFFon 01-12-2023 BASO # 0.1 103/ul Normal 0.0-0.1 [facility] Comment on above: Performed By: #### C BC #### [facility] [address] [place] [address] Dr. Rocio Hernandez Basophils/100 WBC (Bld) 1.0 % Normal 0.2-2.0 [facility] Comment on above: Performed By: #### C BC #### [facility] [address] [place] [address] Dr. Rocio Hernandez EO # 0.2 103/ul Normal 0.0-0.7 [facility] Comment on above: Performed By: #### C BC #### [facility] [address] [place] [address] Dr. Rocio Hernandez Eosinophils/100 WBC (Bld) 2.9 % Normal 0.9-7.0 [facility] Comment on above: Performed By: #### C BC #### [facility] [address] [place] [address] Dr. Rocio Hernandez Erythrocyte distribution width (RBC) [Ratio] 14.1 % Normal 11.0-15.0 [facility] Comment on above: Performed By: #### C BC #### [facility] [address] [place] [address] Dr. Rocio Hernandez Hematocrit (Bld) [Volume fraction] 41.2 % Normal 36.0-48.0 [facility] Comment on above: Performed By: #### C BC #### [facility] [address] [place] [address] Dr. Rocio Hernandez Hemoglobin (Bld) [Mass/Vol] 13.6 g/dL Normal 12.0-16.0 [facility] Comment on above: Performed By: #### C BC #### [facility] [address] [place] [address] Dr. Rocio Hernandez IG # 0.01 10e3/ul Normal 0.00-0.03 [facility] Comment on above: Performed By: #### C BC #### [facility] [address] [place] [address] Dr. Rocio Hernandez IG % 0.2 % Normal 0.0-0.5 [facility] Comment on above: Performed By: #### C BC #### [facility] [address] [place] [address] Dr. Rocio Hernandez LYMPH # 1.3 103/ul Normal 1.2-3.8 [facility] Comment on above: Performed By: #### C BC #### [facility] [address] [place] [address] Dr. Rocio Hernandez Lymphocytes/100 WBC (Bld) 21.9 % Normal 20.5-60.0 [facility] Comment on above: Performed By: #### C BC #### [facility] [address] [place] [address] Dr. Rocio Hernandez MANUAL DIFF REQ NO Normal [facility] Comment on above: Performed By: #### C BC #### [facility] [address] [place] [address] Dr. Rocio Hernandez MCH (RBC) [Entitic mass] 28.4 pg Normal 26.7-34.0 [facility] Comment on above: Performed By: #### C BC #### [facility] [address] [place] [address] Dr. Rocio Hernandez MCHC (RBC) [Mass/Vol] 33.0 g/dL Normal 29.9-35.2 [facility] Comment on above: Performed By: #### C BC #### [facility] [address] [place] [address] Dr. Rocio Hernandez MCV (RBC) [Entitic vol] 86.0 fL Normal 81.0-99.0 [facility] Comment on above: Performed By: #### C BC #### [facility] [address] [place] [address] Dr. Rocio Hernandez MONO # 0.6 103/ul Normal 0.3-0.8 [facility] Comment on above: Performed By: #### C BC #### [facility] [address] [place] [address] Dr. Rocio Hernandez Monocytes/100 WBC (Bld) 10.3 % Normal 1.7-12.0 [facility] Comment on above: Performed By: #### C BC #### [facility] [address] [address] [address] Rocio Hernandez NEUT # 3.8 103/ul Normal 1.4-6.5 [facility] Comment on above: Performed By: #### C BC #### [facility] [address] [address] [address] Rocio Hernandez Neutrophils/100 WBC (Bld) 63.7 % Normal 43.0-75.0 [facility] Comment on above: Performed By: #### C BC #### [facility] [address] [place] [address] Dr. Rocio Hernandez Platelet mean volume (Bld) [Entitic vol] 9.0 fL Critically low 9.5-13.5 [facility] Comment on above: Performed By: #### C BC #### [facility] [address] [place] [address] Dr. Rocio Hernandez PLT 360 103/ul Normal 150-450 [facility] Comment on above: Performed By: #### C BC #### [facility] [address] [place] [address] Dr. Rocio Hernandez RBC 4.79 106/ul Normal 4.20-5.40 [facility] Comment on above: Performed By: #### C BC #### [facility] [address] [place] [address] Dr. Rocio Hernandez WBC 5.9 103/ul Normal 4.0-11.0 [facility] Comment on above: Performed By: #### C BC #### [facility] [address] [address] [address] Rocio Hernandez FREE T3on 01-12-2023 FREE T3 2.31 pg/mlL Normal 2.18-3.98 [facility] Comment on above: Performed By: #### T SH, CMP, LIPID, FT3 ####[facility] [id number] [address]Dr. Rocio Hernandez FREE T4on 01-12-2023 Free T4 [Mass/Vol] 1.21 ng/dL Normal 0.76-1.46 [facility] Comment on above: Performed By: #### B 12FOL, FT4 #### [facility] [address] [address] [address] Rocio Hernandez GLYCOHEMOGLOBIN A1Con 2022 ADA RECOMMENDATION SEE BELOW Normal [facility] Comment on above: Result Comment: ADA RECOMMENDED LIMIT 4.0 - 6.0 ADA THERAPEUTIC TARGET < 7.0 ACTION SUGGESTED > 7.0 Performed By: #### A 1C ####[facility] [address] [address]Dr. Rocio Hernandez Glucose [Mass/Vol] 123 mg/dL Normal [facility] Comment on above: Performed By: #### A 1C ####[facility] [address] [address]DrClem Hernandez HbA1c (Bld) [Mass fraction] 5.9 % Normal 4.5-6.2 [facility] Comment on above: Performed By: #### A 1C ####[facility] [address] [address]Dr. Rocio Hernandez LIPID PROFILEon 01-12-2023 CHOL-HDL RATIO NORM SEE BELOW Normal [facility] Comment on above: Result Comment: 3.3 - 4.4 LOW RISK 4.4 - 7.1 AVERAGE RISK 7.1 - 11.0 MODERATE RISK >11.0 HIGH RISK Performed By: #### T SH, CMP, LIPID, FT3 #### [facility] [address] [address] [address] Rocio Hernandez Cholesterol [Mass/Vol] 203 mg/dL Critically high <=200 [facility] Comment on above: Performed By: #### T SH, CMP, LIPID, FT3 #### [facility] [address] [address] [address] Rocio Hernandez Cholesterol in HDL [Mass/Vol] 89 mg/dL Critically high 40-60 [facility] Comment on above: Performed By: #### T SH, CMP, LIPID, FT3 #### [facility] [address] [address] [address] Rocio Hernandez Cholesterol in LDL [Mass/Vol] 87.8 mg/dL Normal [facility] Comment on above: Performed By: #### T SH, CMP, LIPID, FT3 #### [facility] [address] [address] [address] Rocio Hernandez Cholesterol.total/C holesterol in HDL [Mass ratio] 2.3 {ratio} Normal [facility] Comment on above: Performed By: #### T SH, CMP, LIPID, FT3 #### [facility] [address] [address] [address] Rocio Hernandez HDL NORMAL > or = 60 mg/dl - LO W CARDIOVASCULAR RISK <40 mg/dl - HIGH CARDIOVASCULAR RISK Normal [facility] Comment on above: Performed By: #### T SH, CMP, LIPID, FT3 #### [facility] [address] [address] [address] Rocio Hernandez LDL CALC NORMAL SEE BELOW Normal [facility] Comment on above: Result Comment: <100 mg/dl OPTIMAL 100 - 129 mg/dl NEAR OR ABOVE OPTIMAL 130 - 159 mg/dl BORDERLINE HIGH 160 - 189 mg/dl HIGH >190 mg/dl VERY HIGH Performed By: #### T SH, CMP, LIPID, FT3 #### [facility] [address] [address] [address] Rocio Hernandez Triglyceride [Mass/Vol] 131 mg/dL Normal <=150 [facility] Comment on above: Performed By: #### T SH, CMP, LIPID, FT3 #### [facility] [address] [address] [address] Rocio Hernandez VLDL CALC 26.2 mg/dL Normal [facility] Comment on above: Performed By: #### T SH, CMP, LIPID, FT3 #### [facility] [address] [address] [address] Rocio Hernandez MICROALB CREAT RATIO RANDOMo n 01-12-2023 mALB <1.3 Normal <=30.0 [facility] Comment on above: Performed By: #### M CRR ####[facility] [address] [place], [place] [address]Zb. Rocio Hernandez MALB CR RATIO 13.6 mg/g Normal 0.0-29.9 [facility] Comment on above: Performed By: #### M CRR ####[facility] [address] [place], [place] [address]Hv. Rocio Hernandez MALB CR RATIO RANGE SEE BELOW Normal [facility] Comment on above: Result Comment: NO M ICROALBUMINURIA 0-29 MG/G CLINICAL MICROALBUMINURIA 30-300 MG/G MACROALBUMINURIA >300 MG/G Performed By: #### M CRR ####[facility] [address] [address]DrClem Hernandez URINE CREAT 95.84 mg/dL Normal 20.00-300.00 [facility] Comment on above: Performed By: #### M CRR ####[facility] [address] [address]DrClem Hernandez PROF 14(COMP METB)on 023 Albumin [Mass/Vol] 3.8 g/dL Normal 3.4-5.0 [facility] Comment on above: Performed By: #### T SH, CMP, LIPID, FT3 #### [facility] [address] [address] [address] Rocio Hernandez Albumin/Globulin [Mass ratio] 0.9 {ratio} Normal [facility] Comment on above: Performed By: #### T SH, CMP, LIPID, FT3 #### [facility] [address] [address] [address] Rocio Hernandez ALP [Catalytic activity/Vol] 111 U/L Normal 46-116 [facility] Comment on above: Performed By: #### T SH, CMP, LIPID, FT3 #### [facility] [address] [address] [address] Rocio Hernandez ALT [Catalytic activity/Vol] 42 U/L Normal 14-59 [facility] Comment on above: Performed By: #### T SH, CMP, LIPID, FT3 #### [facility] [address] [address] [address] Rocio Hernandez Anion gap [Moles/Vol] 10.8 mmol/L Normal [facility] Comment on above: Performed By: #### T SH, CMP, LIPID, FT3 #### [facility] [address] [address] [address] Rocio Hernandez AST [Catalytic activity/Vol] 24 U/L Normal 15-37 [facility] Comment on above: Performed By: #### T SH, CMP, LIPID, FT3 #### [facility] [address] [address] [address] Rocio Hernandez Bilirubin [Mass/Vol] 0.4 mg/dL Normal 0.2-1.0 [facility] Comment on above: Performed By: #### T SH, CMP, LIPID, FT3 #### [facility] [address] [address] [address] Rocio Hernandez Calcium [Mass/Vol] 9.6 mg/dL Normal 8.5-10.1 [facility] Comment on above: Performed By: #### T SH, CMP, LIPID, FT3 #### [facility] [address] [address] [address] Rocio Hernandez Chloride [Moles/Vol] 93 mmol/L Critically low 98-107 [facility] Comment on above: Performed By: #### T SH, CMP, LIPID, FT3 #### [facility] [address] [address] [address] Rocio Hernandez CO2 [Moles/Vol] 31.2 mmol/L Normal 21.0-32.0 [facility] Comment on above: Performed By: #### T SH, CMP, LIPID, FT3 #### [facility] [address] [address] [address] Rocio Hernandez Creatinine [Mass/Vol] 1.02 mg/dL Normal 0.55-1.02 [facility] Comment on above: Performed By: #### T SH, CMP, LIPID, FT3 #### [facility] [address] [address] [address] Rocio Hernandez EGFR-AF LAO >60 Normal >=60 [facility] Comment on above: Performed By: #### T SH, CMP, LIPID, FT3 #### [facility] [address] [address] [address] Rocio Hernandez EGFR-NON AF LAO 55 mL/min/1.73m2 Critically low >=60 [facility] Comment on above: Performed By: #### T SH, CMP, LIPID, FT3 #### [facility] [address] [place] [address] Dr. Rocio Hernandez Globulin (S) [Mass/Vol] 4.4 g/dL Normal [facility] Comment on above: Performed By: #### T SH, CMP, LIPID, FT3 #### [facility] [address] [place] [address] Dr. Rocio Hernandez Glucose [Mass/Vol] 102 mg/dL Normal 74-106 [facility] Comment on above: Performed By: #### T SH, CMP, LIPID, FT3 #### [facility] [address] [place] [address] Dr. Rocio Hernandez Potassium [Moles/Vol] 4.0 mmol/L Normal 3.5-5.1 [facility] Comment on above: Performed By: #### T SH, CMP, LIPID, FT3 #### [facility] [address] [place] [address] Dr. Rocio Hernandez Protein [Mass/Vol] 8.2 g/dL Normal 6.4-8.2 [facility] Comment on above: Performed By: #### T SH, CMP, LIPID, FT3 #### [facility] [address] [place] [address] Dr. Rocio Hernandez Sodium [Moles/Vol] 131 mmol/L Critically low 136-145 Th [facility] Comment on above: Performed By: #### T SH, CMP, LIPID, FT3 #### [facility] [address] [place] [address] Dr. Rocio Hernandez Urea nitrogen [Mass/Vol] 6.0 mg/dL Critically low 7.0-18.0 [facility] Comment on above: Performed By: #### T SH, CMP, LIPID, FT3 #### [facility] [address] [address] [address] Rocio Hernandez Urea nitrogen/Creatinine [Mass ratio] 5.9 mg/mg Normal [facility] Comment on above: Performed By: #### T SH, CMP, LIPID, FT3 #### [facility] [address] [address] [address] Rocio Hernandez TSHon 01-12-2023 TSH 5.647 uIU/mL Critically high 0.358-3.740 [facility] Comment on above: Performed By: #### T SH, CMP, LIPID, FT3 #### [facility] [address] [address] [address] Rocio Hernandez VIT B12 AND FOLATEon 023 Cobalamin (Vitamin B12) [Mass/Vol] 1189.0 pg/mL Critically high 193.0-986.0 [facility] Comment on above: Performed By: #### B 12FOL, FT4 #### [facility] [address] [place] [address] Dr. Rocio Hernandez FOLATE 27.30 ng/mL Normal 8.60-58.90 [facility] Comment on above: Performed By: #### B 12FOL, FT4 #### [facility] [address] [place] [address] Dr. Rocio Hernandez MG MAMM SCREEN 3D TANIA CADon 12-19-2022 MG MAMM SCREEN 3D TANIA CAD Patient: MADAN PERRY Exam Date: 12/19/2022 : 1960 Gender:F Ordering : DR [place] D.O. Admission #: [id number] Family : Order #: [id number] CLICK HERE TO VIEW EXAM RADIOLOGY REPORT [...] ovarian cancer at age 54. LOCATION: [facility] BREAST COMPOSITION: Scattered areas fibroglandular density. FINDINGS: [...] Flores M.D. on 12/19/2022 at 11:[address] [facility] XR DEXA BONE DENSITYon 12-19 XR [...] by: RODRI FLORES Date: 2022-12-19 10:[address] [facility] FREE T3on 03-22-2022 FREE T3 2.43 pg/mlL Normal 2.18-3.98 [facility] Comment on above: Performed By: #### B MP, FT3, TSH ####[facility] [address] [address]Dr. Rocio Hernandez FREE T4on 03-22-2022 Free T4 [Mass/Vol] 1.43 ng/dL Normal 0.76-1.46 [facility] Comment on above: Performed By: #### F T4 ####[facility] [address] [address]Dr. Rocio Hernandez PROF CHEM 8 (BAS METB)on Anion gap [Moles/Vol] 10.2 mmol/L Normal [facility] Comment on above: Performed By: #### B MP, FT3, TSH ####[facility] [address] [address]Dr. Rocio Hernandez Calcium [Mass/Vol] 8.8 mg/dL Normal 8.5-10.1 [facility] Comment on above: Performed By: #### B MP, FT3, TSH ####[facility] [address] [place], [place] [address]Dr. Rocio Hernandez Chloride [Moles/Vol] 104 mmol/L Normal 98-107 [facility] Comment on above: Performed By: #### B MP, FT3, TSH ####[facility] [address] [place], [place] [address]Dr. Rocio Hernandez CO2 [Moles/Vol] 31.7 mmol/L Normal 21.0-32.0 [facility] Comment on above: Performed By: #### B MP, FT3, TSH ####[facility] [address] [place], [place] [address]Dr. Rocio Hernandez Creatinine [Mass/Vol] 0.96 mg/dL Normal 0.55-1.02 [facility] Comment on above: Performed By: #### B MP, FT3, TSH ####[facility] [address] [place], [place] [address]Dr. Rocio Hernandez EGFR-AF LAO >60 Normal >=60 [facility] Comment on above: Performed By: #### B MP, FT3, TSH ####[facility] [address] [place], [place] [address]Dr. Rocio Hernandez EGFR-NON AF LAO 59 mL/min/1.73m2 Critically low >=60 [facility] Comment on above: Performed By: #### B MP, FT3, TSH ####[facility] [address] [address]. Rocio Hernandez Glucose [Mass/Vol] 110 mg/dL Critically high 74-106 T [facility] Comment on above: Performed By: #### B MP, FT3, TSH ####[facility] [address] [address]Dr. Rocio Hernandez Potassium [Moles/Vol] 2.9 mmol/L Critically low 3.5-5.1 [facility] Comment on above: Result Comment: TEST REPEATED CRITICAL VALUE VERIFIED Performed By: #### B MP, FT3, TSH ####[facility] [address] [address]Dr. Rocio Hernandez Sodium [Moles/Vol] 141 mmol/L Normal 136-145 [facility] Comment on above: Performed By: #### B MP, FT3, TSH ####[facility] [address] [address]Dr. Rocio Hernandez Urea nitrogen [Mass/Vol] 12.0 mg/dL Normal 7.0-18.0 [facility] Comment on above: Performed By: #### B MP, FT3, TSH ####[facility] [address] [address]Dr. Rocio Hernandez Urea nitrogen/Creatinine [Mass ratio] 12.5 mg/mg Normal [facility] Comment on above: Performed By: #### B MP, FT3, TSH ####[facility] [address] [address]Dr. Rocio Hernandez TSHon 03-22-2022 TSH 0.137 uIU/mL Critically low 0.358-3.740 [facility] Comment on above: Performed By: #### B MP, FT3, TSH ####[facility] [address] [address]Dr. Rocio Hernandez Patient Letter FTMCon 2020 Patient Letter [facility] (Inserted Image. Wilda ble to display) May 26, 2021 MADAN PERRY [address] [place] [address] MADAN PERRY 1960 Dear Madan, This is a SECOND ATTEMPT to remind you that you are due for an appointment with [facility]. Please contact our office at [phone] to schedule an appointment at your earliest convenience. Thank you, [facility] Reminderson 05-26-2021 Reminders - From: Jane Onofre To: GINA - Reminders/Recalls; Sent: 01/18/2021 12:33:31 EDT Show up: 04/25/2021 12:33:00 EDT Subject: Ambulatory Reminder Due Date/Time: 06/09/2021 12:33:00 EDT Reminder/Recall sara peace 5 year colon 06/09/2021 first recall letter second rcall letter [facility] [place] [facility] (Inserted Image. Wilda ble to display) May 05, 2021 MADAN PERRY [address] [place] [address] MADAN PERRY 1960 Dear Madan, This is a reminder that you are due for an appointment with [facility]. Please contact our office at [phone] to schedule an appointment at your earliest convenience. Thank you, [facility] Vital Signs Date Time Vital Sign Value Performing Clinician Facility 05-09-2022 16:35-0400 Body height 161.29 cm Adilia Mederos Other [facility] Other 05-09-2022 16:35-0400 Body mass index (BMI) [Ratio] 25.63 kg/m2 Adilia Mederos Other [facility] Other 05-09-2022 16:35-0400 Body temperature 97.8 [degF] Adilia Mederos Other [facility] Other 05-09-2022 16:35-0400 Body weight 66.68 kg Adilia Mederos Other [facility] Other 05-09-2022 16:35-0400 Diastolic blood pressure 79 mm[Hg] Adilia Mederos Other [facility] Other 05-09-2022 16:35-0400 Respiratory rate 18 /min Adilia Mederos Other [facility] Other 05-09-2022 16:35-0400 SaO2% (BldA) [Mass fraction] 98 % dAilia Mederos Other [facility] Other 05-09-2022 16:35-0400 Systolic blood pressure 136 mm[Hg] Adilia Mederos Other [facility] Other 07-21-2021 16:05-0400 Body height 161.29 cm Lilian Clarkmond Other [facility] Other 07-21-2021 16:05-0400 Body mass index (BMI) [Ratio] 26.5 kg/m2 Lilian Hanna Other [facility] Other 07-21-2021 16:05-0400 Body temperature 96.2 [degF] Lliian Hanna Other [facility] Other 07-21-2021 16:05-0400 Body weight 68.95 kg Lilian Hanna Other [facility] Other 07-21-2021 16:05-0400 Diastolic blood pressure 95 mm[Hg] Lilian Ferreira Other [facility] Other 07-21-2021 16:05-0400 Respiratory rate 18 /min Lilian Ferreira Other [facility] Other 07-21-2021 16:05-0400 SaO2% (BldA) [Mass fraction] 99 % Lilian Ferreira Other [facility] Other 07-21-2021 16:05-0400 Systolic blood pressure 132 mm[Hg] Lilian Ferreira Other [facility] Other 06-22-2021 14:20-0400 Body height 161.29 cm Adilia Cardenasault Other [facility] Other 06-22-2021 14:20-0400 Body mass index (BMI) [Ratio] 25.98 kg/m2 Adilia Cardenasault Other [facility] Other 06-22-2021 14:20-0400 Body temperature 96.4 [degF] Adilia Cardenasault Other [facility] Other 06-22-2021 14:20-0400 Body weight 67.59 kg Adilia Cardenasault Other [facility] Other 06-22-2021 14:20-0400 Diastolic blood pressure Adilia Cardenasault Other [facility] Other 06-22-2021 14:20-0400 Respiratory rate 18 /min Adilia Rosa M Other [facility] Other 06-22-2021 14:20-0400 SaO2% (BldA) [Mass fraction] 98 % Adilia Mederos Other [facility] Other 06-22-2021 14:20-0400 Systolic blood pressure 111 mm[Hg] Adilia Mederos Other [facility] Other Encounters Encounter Date Encounter Type Care Provider Facility Start: 02-20-2024 End: 02-20-2024 ambulatory [facility] Start: 01-15-2024 End: 01-16-2024 ambulatory [facility] Harp [facility] Start: 12-04-2023 End: 12-05-2023 [facility] Start: 11-06-2023 End: 11-07-2023 ambulatory Meet Harp MD Facility: [facility] Start: 10-09-2023 End: 10-10-2023 [facility]ulatory [facility] Start: 08-25-2023 End: 08-25-2023 ambulatory ALIZA AGUILAR Facility:[facility] Start: 08-25-2023 End: 08-25-2023 Office outpatient visit 15 minutes Aliza Aguilar MD Work Phone: [facility] Comment on above: Hand arthritis (Prim maurisio Dx) Start: 08-21-2023 End: 08-22-2023 ambulatory Meet Harp MD Facility: [facility] Start: 08-19-2023 Letter encounter Yesy Covarrubias OT Work Phone: [facility] Start: 07-31-2023 End: 08-01-2023 ambulatory Meet Harp MD Facility: [facility] Start: 07-24-2023 End: 07-25-2023 ambulatory Meet Harp MD Facility: [facility] Start: 07-20-2023 End: 07-20-2023 ambulatory Aliza Aguilar Facility:[facility] Start: 07-20-2023 End: 07-20-2023 ambulatory DO [place] Work Phone: [facility] Work Phone: Start: 07-20-2023 End: 07-20-2023 Patient encounter procedure DO [place] Work Phone: [facility] [address] Work Phone: Start: 07-10-2023 End: 07-11-2023 ambulatory Meet Harp MD Facility:[facility] Start: 06-16-2023 End: 06-17-2023 ambulatory UNKNOWN PROVIDER [facility] Start: 06-16-2023 End: 06-16-2023 Office outpatient visit 25 minutes Aliza Aguilar MD Work Phone: [address] [facility] Comment on above: Left hand pain (Prim maurisio Dx) Start: 06-16-2023 End: 06-16-2023 Subsequent hospital visit by physician [id number] Op Op X-Ray 1 Work Phone: [facility] Comment on above: Left hand pain Start: 02-07-2023 End: 02-08-[address] [place] Facility:[facility] Start: 01-27-2023 End: 01-28-[address] [place] Facility:[facility] Start: 01-23-2023 End: 02-22-2023 ambulatory SHAIKH Eduardo ROSS Facility:[facility] Start: 01-16-2023 Encounter for genera l adult medical examination without abnormal findings DR [place] [facility] Start: 01-12-2023 End: 01-13-[address] TANK [...] Letter encounter Yesy Covarrubias OT [facility] Start: 05-09-2022 End: 05-09-2022 ambulatory Adilia Mederos Other [facility] Other Start: 05-09-2022 Office outpatient vi sit [...] outpatient vi sit 15 minutes Adilialeonid Mederos [facility] Procedures Date Procedure Procedure Detail Performing Clinician Start: 08-25-2023 Injection 1 tendon sheath/ligament aponeurosis Aliza Aguilar MD Work Phone: Start: 06-16-2023 Radex hand minimum 3 views Aliza Aguilar MD Work Phone: Plan of Treatment Date Care Activity Detail Author Start: 06-04-2028 Tetanus vaccination Tetanus (T d or Tdap) Booster [facility] Start: 01-13-2028 Cholesterol [Mass/volume] in Serum or Plasma [facility] Start: 08-25-2023 End: 08-25-2023 Patient encounter procedure 08/25/2023 11:30 AM EST Office Visit [address] [facility] [address] [place] [address] Aliza Aguilar MD [address] [place] [phone] [facility] Start: 07-20-2023 XR pre/post mri xray XR pre/post mri xray [facility] Start: 07-20-2023 [facility] Start: 07-20-2023 MR Wrist - left WO contrast [facility] Start: 07-20-2023 MRI of left wrist MR wrist LT wo con [facility] Start: 07-20-2023 MR Hand - left WO contrast [facility] Start: 07-20-2023 MRI of left hand MR hand LT wo con F [facility] Start: 06-25-2023 Influenza vaccination Influenza Vacc ine (#1) [facility] Start: 06-16-2023 End: 06-16-2024 MR Wrist - left WO contrast MR WRIST LEFT W/O Imaging Routine Left hand pain Expected: 06/16/2023, Expires: 06/16/2024 [employer] Work Phone: Comment on above: Expected: [...] wellness visit Annual W ellness Visit ([id number]) [facility] Start: 2009 Measurement of occul t [...] for malign ant neoplasm of breast Mammography [facility] Start: 02-11-1980 Screening for malign ant neoplasm of cervix Pap Smear [facility] Start: 1977 Hepatitis C screening [facility] Start: 1974 HIV screening HIV Test [facility] Start: 1960 COVID-19 Vaccine ( formulation) COVID-19 Vaccine ( formulation) [facility] Start: 1960 Screening for malign ant neoplasm of colon Colonoscopy [facility] Immunizations Immunization Date Immunization Notes Care Provider Fa cili 08-11-2023 influenza, injectabl e, quadrivalent, preservative free Aliza Aguilar MD Work Phone: [facility] 08-11-2023 Respiratory syncytia l virus (RSV), vaccine, bivalent, protein subunit RSV prefusion F, diluent reconstituted, 0.5 mL, preservative free (LRJ=832) Aliza Aguilar MD Work Phone: [facility] 06-18-2022 influenza, injectabl e, quadrivalent, preservative free Aliza Aguilar MD Work Phone: [facility] 06-18-2022 influenza virus vacc ine, unspecified formulation Aliza Aguilar MD Work Phone: [facility] 02-05-2022 Pfizer Monovalent (1 2+ yrs) SARS-COV-2 (COVID-19) vaccine, mRNA, spike protein, LNP, pres. free, 30 mcg/0.3mL dose, betito-sucrose (WUU=851) Aliza Aguilar MD Work Phone: [facility] 08-11-2021 influenza, injectabl e, quadrivalent, preservative free Yesy Marci OT Work Phone: [facility] 08-11-2021 influenza virus vacc ine, unspecified formulation Yesy Marci OT Work Phone: [facility] 07-24-2020 zoster vaccine recombinant K athryn Marci OT Work Phone: [facility] 07-11-2020 Influenza, injectabl e, Madin Zakia Canine Kidney, preservative free, quadrivalent Yesy Marci OT Work Phone: [facility] 04-18-2020 zoster vaccine recombinant K athryn Marci OT Work Phone: [facility] 08-28-2019 Influenza, injectabl e, Madin Harlan Canine Kidney, preservative free, quadrivalent Yesy Marci OT Work Phone: [facility] 07-01-2019 influenza, high dose seasonal, preservative-free Yesy Marci OT Work Phone: [facility] 06-25-2019 pneumococcal polysac charide vaccine, 23 valent Yesy Marci OT Work Phone: [facility] 07-06-2018 influenza, injectabl e, quadrivalent, contains preservative Yesy Marci OT Work Phone: [facility] 06-04-2018 tetanus toxoid, redu karen diphtheria toxoid, and acellular pertussis vaccine, adsorbed Yesy Marci OT Work Phone: [facility] 08-19-2017 influenza, injectabl e, quadrivalent, preservative free Yesy Marci OT Work Phone: [facility] 08-09-2017 influenza, injectabl e, quadrivalent, contains preservative Yesy Marci OT Work Phone: [facility] 08-01-2016 influenza, injectabl e, quadrivalent, preservative free Yesy Marci OT Work Phone: [facility] 07-11-2015 influenza, injectabl e, madin zakia canine kidney, preservative free Yesy Marci OT Work Phone: [facility] 07-11-2015 pneumococcal conjuga te vaccine, 13 valent Yesy Marci OT Work Phone: [facility] 08-13-2009 novel influenza-H1N1 -09, preservative-free, injectable Yesy Marci OT Work Phone: [facility] 07-17-2009 influenza virus vacc ine, unspecified formulation Yesy Marci OT Work Phone: [facility] 08-15-2008 influenza virus vacc ine, unspecified formulation Yesy Marci OT Work Phone: [facility] Payers Date Payer Category Payer Self-pay [id number] 2018 Unknown [id number] 2013 Medicare [id number] [id number] [id number] 1959 [facility] [id number] 2.16.840.1.634758.19 1960 Medicare [id number] 2.16.840.1.966382.19 1959 Unknown [id number] 2.16.840.1.437120.3.579.2.593 1959 Unknown [id number] 2.16.840.1.780007.3.579.2.593 1959 Unknown [id number] 2.16.840.1.993563.3.579.2.593 1959 Unknown [id number] 2.16.840.1.680838.3.579.2.593 1959 Unknown [id number] 2.16.840.1.224789.3.579.2.593 1959 Unknown [id number] 2.16.840.1.486471.3.579.2.59 1959 Unknown [id number] 2.16.840.1.689851.3.579.2.593 1959 Unknown [id number] 2.16.840.1.330323.3.579.2.593 1959 Unknown [id number] 2.16.840.1.622250.3.579.2.593 1959 Unknown [id number] 2.16.840.1.657674.3.579.2.59 1959 Unknown [id number] 2.16.840.1.952196.3.579.2.593 1959 Unknown [id number] 2.16.840.1.264203.3.579.2.593 1959 Unknown [id number] 2.16.840.1.152851.3.579.2.593 1959 Unknown [id number] 2.16.840.1.858880.3.579.2.59 1959 Unknown [id number] 2.16.840.1.760481.3.579.2.593 1959 Unknown [id number] 2.16.840.1.417002.3.579.2.593 1959 Unknown [id number] 2.16.840.1.129171.3.579.2.593 1959 Unknown [id number] 2.16.840.1.110708.3.579.2.593 1959 Unknown [id number] 2.16.840.1.053648.3.579.2.593 1959 Unknown [id number] 2.16.840.1.592602.3.579.2.593 1959 Unknown [id number] 2.16.840.1.145001.3.579.2.732 1959 Unknown [id number] 2.16.840.1.838694.3.579.2.732 1959 Unknown [id number] 2.16.840.1.069128.3.579.2.732 1959 Unknown [id number] 2.16.840.1.008717.3.579.2.196 1959 Unknown [id number] 2.16.840.1.392441.3.579.2.196 1959 Unknown [id number] 2.16.840.1.067033.3.579.2.196 1959 Unknown [id number] 2.16.840.1.277897.3.579.2.196 1959 Unknown [id number] 2.16.840.1.633002.3.579.2.196 1959 Unknown [id number] 2.16.840.1.500815.3.579.2.196 1959 Unknown [id number] 2.16.840.1.902403.3.579.2.196 1959 Unknown [id number] 2.16.840.1.830881.3.579.2.196 1959 Unknown [id number] 2.16.840.1.128246.3.579.2.1286 Medicare Medicare Nonpatient [id number] Unknown [id number] 2.16.840.1.502606.3.579.2.531 Social History Date Type Detail Facility Unknown if ever smoked [facility] Other Sex Assigned At [facility] Other Start: 05-31-2019 Tobacco smoking stat [facility] Ex-smoker [facility] History of tobacco use [facility] Start: 05-31-2019 Tobacco use and exposure Smokeless tobacco non-user [facility] Start: 04-07-2020 Alcohol intake Lifetime non-d han (finding) [facility] Start: 07-09-2019 History SDOH Alcohol Frequency 1 [facility] Start: 1960 Sex Assigned At Not on file [facility] Start: 1960 Sex Assigned At Female F [facility] Medical Equipment Procedure Code Equipment Code Equipment Origin al Text Equipment Identifier 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 EXAM: [...] this patient. Aliza Aguilar MD Injection Procedure.formerly [facility] 08/25/2023 [id number] Madan Perry The patient requested an injection [...] a dressing applied. documented in this encounter [facility] 06-16-2023 Note Addended by: ALIZA AGUILAR on: 06/16/2023 11:34 AM Modules accepted: Orders [facility] 06-16-2023 Miscellaneous Notes Addended by: ALIZA AGUILAR on: 06/16/2023 11:34 AM Modules accepted: Orders documented in this encounter [facility] 06-16-2023 History of Presen t illness Narrative [...] continues on coumadin. documented in this encounter [facility] 05-09-2022 Evaluation note Encounter Date Diagnosis Assessment [...] Xray that was ordered outpatient by PCP [facility] Other 08-10-2022 NotePROCEDURE: XR FOOT RT MIN 3 VIEWS COMPARISON: None. HISTORY: Pain in right foot FINDINGS: BONES:No fracture, acute abnormality, or significant arthropathy. Mild enthesopathic spurring of the calcaneus at the Achilles insertion SOFT TISSUES:Negative. No visible soft tissue swelling. EFFUSION:None visible. OTHER: Negative. IMPRESSION: No acute abnormality Electronically authenticated by: MARTINEZ HARVEY Date: 2022-05-04 16:22[facility]10-27-2021 Evaluation note* Encounter Date Diagnosis Assessment Notes Treatment Notes Treatment Clinical Notes Jun, Swelling of left elbow (ICD-10 - M25.422) Jun, Other Patient refe rred to the ER due to swelling, ecchymosis, pain of her left elbow with no known injury. It is felt the patient needs blood work to evaluate [facility] Other 09-28-2021 Evaluation note* Encounter Date Diagnosis Assessment Notes Treatment Notes Treatment Clinical Notes May, Bee sting, undetermined intent, initial encounter (ICD-10 - T63.444A) May continue Xyzal and Benadryl as directed. [email or web address] Other Evaluation note* Diagnosis Left hand pain- Primary Pain in limb Left hand pain Pain in limb [facility] Diagnosis Left hand pain Pain in limb documented in this [facility] Phone: Evaluation note* Diagnosis Hand [...] second t roseann Hospitalization History see above [facility] [email or web address] Other Summary Purpose Family History No Family [...] Diagnoses Left hand pain Aliza Aguilar MD [address] [place] [address] Referral ID Status Reason Start Date Expiration Date Visits Requested Visits Authorized [id number] Authorized Patient Preference 06/16/2023 06/16/2024 3 3 Comments Near home, [place], [place] Specialty Diagnoses / Procedures Referred By Contac t Referred To Contact Radiology Diagnoses Left hand pain Procedures MR WRIST LEFT W/O Aliza Aguilar MD [address] [place] [address] [facility] MRI [address] [place] [address] Referral ID Status Reason Start Date Expiration Date V isits Requested Visits Authorized [id number] Authorized 06/16/2023 06/15/2024 1 1 Specialty Diagnoses / Procedures Referred By Contac t Referred To Contact Radiology Diagnoses Left hand pain Procedures XR HAND LEFT 3 VIEWS [facility] [address] [facility] DIAGNOSTIC RADIOLOGY [address] [place] [address] [place] [address] Referral ID Status Reason Start Date Expiration Date Visits Re quested Visits Authorized [id number] Closed 06/16/2023 06/15/2024 1 1 Chief Complaint and Reason for Visit Chief Complaint median nerve karel krista Additional Source Comments INFORMATION SOURCE (unrecogn ized section and content) DATE CREATED AUTHOR 05/27/2021 Paco Jose [facility] DATE CREATED AUTHOR AUTHOR'S ORGANIZ ATION 03/03/2023 [facility] DATE CREATED AUTHOR AUTHOR'S ORGANIZ ATION 07/30/[address] [facility] DATE CREATED AUTHOR AUTHOR'S ORGANIZ ATION 08/28/2023 [facility] DATE CREATED AUTHOR AUTHOR'S ORGANIZ ATION 12/23/2023 [facility] DATE CREATED AUTHOR AUTHOR'S ORGANIZ ATION 02/01/2024 [facility] DATE CREATED AUTHOR AUTHOR'S ORGANIZ ATION 02/20/2024 [facility] REASON FOR VISIT (unrecogniz ed section and content) Reason Comments Hand/finger symptoms Specialty Diagnoses / Procedures Referred By Contac t Referred To Contact Radiology Diagnoses Left hand pain Procedures XR HAND LEFT 3 VIEWS [facility] [address] [place] [address] 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 Development Relationship Specialty Start Date End Date Yesy Covarrubias OT [address] [place] [address] [place] [address] Occupational Therapist Occupational Therapy 06/30/20 Aliza Aguilar MD [address] [place] [address] Physician Orthopaedic Hand Service 06/30/20 Vice President Of Software Development Relationship Specialty Start Date End Date Yesy Covarrubias OT [address] [place] [address] [place] [address] Occupational Therapist Occupational Therapy 06/30/20 Aliza Aguilar MD [address] [place] [address] Physician Orthopaedic Hand Service 06/30/20 Vice President Of Software Development Relationship Specialty Start Date End Date Yesy Covarrubias OT [address] [place] [address] [address] [place] Occupational Therapist Occupational Therapy 06/30/20 Aliza Aguilar MD [address] [place] [address] Physician Orthopaedic Hand Service 06/30/20 Team Status: Active Member Role Status Dates [place] , DO Primary Care Provider Active Team Status: Inactive Member Role Status Dates [place] , DO Primary Care Provider Active Aliza Aguilar Attending Provider Active Vice President Of Software Development Relationship Specialty Start Date End Date Yesy Covarrubias, OT [address] [place] [address] Occupational Therapist Occupational Therapy 06/30/20 Aliza Aguilar MD [address] [place] [address] Physician Orthopaedic Hand Service 06/30/20 Vice President Of Software Development Relationship Specialty Start Date End Date Yesy Covarrubias, OT [address] [place] [address] Occupational Therapist Occupational Therapy 06/30/20 Aliza Aguilar MD [address] [place] [address] Physician Orthopaedic Hand Service 06/30/20 Goals (unrecognized [...] BE BASED ON THE PRIMARY CLINICAL RECORDS. [facility]. provides no warranty or guarantee of the accuracy or completeness of information in this document.
[2024-02-28 07:44] VITALS: BP 133/84; PULSE 88; TEMP 35.5; O2SAT 95; BMI 27.1
[2024-02-28] MEDS: LACTATED RINGER'S SOLUTION 1,000 ML 50 ML IV (07:58)
--- NOTE | 2024-02-28 09:33 | P.GSPRC_ITS ---
Date of procedure: 02/28/24 Indications for Procedure: History of Heimlich Procedure 2 weeks ago with piece of steak Pre-op diagnosis: History of Heimlich procedure 2 weeks ago with a piece of steak Post-op diagnosis: other (Multiple fundic gland polyps/esophagitis cervical esop hagus) Procedure: EGD with biopsy antrum, fundic gland polyp, distal esophagus and cervical esophagus Findings: Fundic gland polyps, cervical esophagitis Anesthesia: MAC Surgeon: Canelo Spencer Procedure Summary: Patient was taken to the endoscopy suite placed in the left lateral recumbent position and given sedation by the wire fence erector. The Olympus EGD scope was advanced under direct visualization into the posterior pharynx esophagus into the stomach through the pylorus into the first second third and fourth portions of the duodenum which were normal. There were no ulcers tumors seen. The scope was withdrawn into the stomach where she has multiple fundic gland polyps seen 1 of those was biopsied and submitted for pathology. And a random antral biopsy was taken to rule out gastritis. The scope was then withdrawn to the distal esophagus and a biopsy was taken there as well. No unusual pathology was seen. But upon withdrawing the scope and the upper cervical esophagus she had an broad area of denuding of the epithelium and a biopsy was taken and hemostasis was maintained. The scope was withdrawn from the mouth. I will await biopsies but in the meantime I will place her on sucralfate 1 p.o. before meals and at bedtime #120 for 1 month and await biopsies. Estimated blood loss (mL): 0 Specimens: Antral, distal and cervical esophageal biopsies and fundic gland polyp biopsy Complications: No Condition: stable Disposition: PACU
[2024-02-28 09:38] VITALS: BP 154/79; PULSE 91; O2SAT 94
[2024-02-28 09:52] VITALS: BP 152/87; PULSE 84; O2SAT 95
[2024-02-28 10:13] VITALS: BP 165/98; PULSE 82; O2SAT 97
== END 2024-02-28 10:13 | disposition home or self-care (01) ==
PROVIDERS: PCP Family Medicine; Visit Provider Surgery
PROC: (CPT 731; principal; 2024-02-28 08:50)
DX: R13.10 Dysphagia, unspecified (principal); K20.90 Esophagitis, unspecified without bleeding; K29.50 Unspecified chronic gastritis without bleeding; K31.7 Polyp of stomach and duodenum; Z79.01 Long term (current) use of anticoagulants; Z87.891 Personal history of nicotine dependence; Z90.49 Acquired absence of other specified parts of digestive tract; Z90.710 Acquired absence of both cervix and uterus; N18.30 Chronic kidney disease, stage 3 unspecified; I12.9 Hypertensive chronic kidney disease with stage 1 through stage 4 chronic kidney disease, or unspecified chronic kidney disease; E03.9 Hypothyroidism, unspecified
CPT/HCPCS: 43239; 88305; J2704

== ENCOUNTER 2024-02-29 11:03 | Outpatient (OUT) | payer BC, MEDICARE, SELFPAY ==
--- NOTE | 2024-02-29 11:16 | P.CN_ITS ---
Consult Note: HPI Data of Consult Patient: known to practice within the last 3 years Consult date: 07/24/23 Requesting Physician: Etta Moya NP Primary Care Provider: [place], Consult Narrative Reason for consult: midback pain Narrative: 63yof who presents for assessment. persistent mid and low back pain. mri reviewed previously with Dr Harp, which shows multiple levels of disc bulging, arthropathy, and stenosis, worst at t10-11 and t11-12. continues in provider directed home exercise program >6 weeks, with limited benefit. continues norco and flexeril. denies adverse med side effects. Continues to have moderate to severe left thoracic pain, sharp increasing with all activity and improved with lying down. Denies radicular pain. Patient has failed to benefit from TPIs. Previously anthem denied all thoracic interventions. Patient rating pain today 9/10. Since last visit, patient has continued to utilize zanaflex 4mg TID PRN norco 5-325mg TID PRN with mild relief, pain never less than 5/10 per patient. Patients was prescribed patches after an ER visit and patient utilized one with significant benefit, pt unsure of type. cc:: CC: Etta Moya NP Review of Systems ROS Status of ROS 10 or more systems reviewed and unremark able except as noted in history and below Musculoskeletal Reports: back pain PFSH [facility] Medical History (Updated 02/23/24 @ 14:20 by Keisha Jones NP) Anemia ?D64.9 - Anemia, unspecified (ICD-10) History of blood transfusion (1997) ?Z92.89 - Personal history of other medical treatment (ICD-10) Panic attacks ?F41.0 - Panic disorder [episodic paroxysmal anxiety] (ICD-10) Depression ?F32.A - Depression, unspecified (ICD-10) Anxiety ?F41.9 - Anxiety disorder, unspecified (ICD-10) COVID-19 ?U07.1 - COVID-19 (ICD-10) Chronic obstructive pulmonary disease ?J44.9 - Chronic obstructive pulmonary disease, unspecified (ICD-10) Migraine ?G43.909 - Migraine, unspecified, not intractable, without status migrainosus (ICD-10) Urinary tract infection ?N39.0 - Urinary tract infection, site not specified (ICD-10) Presence of vena cava filter ?Z95.828 - Presence of other vascular implants and grafts (ICD-10) Hypertension ?I10 - Essential (primary) hypertension (ICD-10) Osteoarthritis ?M19.90 - Unspecified osteoarthritis, unspecified site (ICD-10) Hypothyroid ?E03.9 - Hypothyroidism, unspecified (ICD-10) Stage 3 chronic kidney disease ?N18.30 - Chronic kidney disease, stage 3 unspecified (ICD-10) Colitis ?K52.9 - Noninfective gastroenteritis and colitis, unspecified (ICD-10) DVT (deep venous thrombosis) ?I82.409 - Acute embolism and thrombosis of unspecified deep veins of unspecified lower extremity (ICD-10) Surgical History S/P epidural steroid injection ?Z92.241 - Personal history of systemic steroid therapy (ICD-10) H/O hand surgery ?Z98.890 - Other specified postprocedural states (ICD-10) History of carpal tunnel release ?Z98.890 - Other specified postprocedural states (ICD-10) History of bladder suspension procedure ?Z98.890 - Other specified postprocedural states (ICD-10) ?Z87.448 - Personal history of other diseases of urinary system (ICD-10) History of hernia repair ?Z98.890 - Other specified postprocedural states (ICD-10) ?Z87.19 - Personal history of other diseases of the digestive system (ICD-10) Hx of cholecystectomy ?Z90.49 - Acquired absence of other specified parts of digestive tract (ICD- 10) H/O colonoscopy ?Z98.890 - Other specified postprocedural states (ICD-10) History of esophagogastroduodenoscopy (EGD) ?Z98.890 - Other specified postprocedural states (ICD-10) History of decompression of ulnar nerve ?Z98.890 - Other specified postprocedural states (ICD-10) History of appendectomy ?Z90.49 - Acquired absence of other specified parts of digestive tract (ICD- 10) History of hysterectomy ?Z90.710 - Acquired absence of both cervix and uterus (ICD-10) Delivery by section History of laparoscopy ?Z98.890 - Other specified postprocedural states (ICD-10) Family History Other Cancer Family history of aneurysm Family history of diabetes mellitus Family history of heart disease Family history of hypertension Social History Within the past year, how often did you have a drink containing alcohol: never Score interpretation: A score less than 3 is consistent with normal alcohol consumption. Smoking status: Former smoker Non-prescribed substance use: denies use Highest level of school completed/degree received: some college, no degree Meds Home Medications and Allergies Home Medications ?Medication ?Instructions ?Recorded ?Confirmed ?Type acyclovir 400 mg tablet 400 mg PO DAILY 06/16/23 02/28/24 History amitriptyline 100 mg tablet 100 mg PO BEDTIME 06/16/23 02/28/24 History aripiprazole 10 mg tablet 10 mg PO BEDTIME 06/16/23 02/28/24 History atorvastatin 10 mg tablet 10 mg PO QDAY 06/16/23 02/28/24 History biotin 10,000 mcg-keratin 100 mg 1 tab PO QDAY 06/16/23 02/28/24 History tablet (Biotin Plus Keratin) ntbtejjvgv-xauifdcfrdcpl-fxmhjsbm 1 cap PO Q6H PRN pain 06/16/23 02/28/24 History 50 mg-300 mg-40 mg capsule cholecalciferol (vitamin D3) 50 50 mcg PO DAILY 06/16/23 02/28/24 History mcg (2,000 unit) capsule (Vitamin D3) cyanocobalamin (vitamin B-12) 1,000 mcg IM .monthly 06/16/23 02/28/24 History 1,000 mcg/mL injection solution fremanezumab-vfrm 225 mg/1.5 mL 225 mg subcut .monthly 06/16/23 02/28/24 History subcutaneous auto-injector (Ajovy) hydrochlorothiazide 12.5 mg tablet 12.5 mg PO QDAY 06/16/23 02/28/24 History hydrocodone 5 mg-acetaminophen 325 1 tab PO Q12H PRN pain 06/16/23 02/28/24 History mg tablet hydroxyzine HCl 25 mg tablet 25 mg PO BEDTIME 06/16/23 02/28/24 History levothyroxine 125 mcg tablet 125 mcg PO .every morning 06/16/23 02/28/24 History linaclotide 72 mcg capsule 145 mcg PO QDAY 06/16/23 02/28/24 History (Linzess) lisinopril 5 mg tablet 5 mg PO QDAY 06/16/23 02/28/24 History melatonin 10 mg capsule 10 mg PO DAILY 06/16/23 02/28/24 History montelukast 10 mg tablet 10 mg PO QDAY 06/16/23 02/28/24 History omeprazole 40 mg capsule,delayed 40 mg PO BID 06/16/23 02/28/24 History release potassium chloride 10 mEq 20 meq PO BID 06/16/23 02/28/24 History tablet,extended release(part/cryst) vilazodone 40 mg tablet 40 mg PO QDAY 06/16/23 02/28/24 History vit C 250 mg-vit E 90 mg-zinc 40 1 tab PO BID 06/16/23 02/28/24 History mg-copper 1 zu-mixijm-mliwjp capsule (PreserVision AREDS-2) warfarin 1 mg tablet 1 mg PO .qtuesday 06/16/23 02/28/24 History warfarin 2 mg tablet 2 mg PO QDAY 06/16/23 02/28/24 History aspirin 81 mg tablet,delayed 81 mg PO DAILY 07/17/23 02/28/24 History release (Adult Aspirin Regimen) meclizine 12.5 mg tablet 12.5 mg PO BID PRN dizziness 07/17/23 02/28/24 History ondansetron HCl 4 mg tablet 4 mg PO Q12H PRN nausea and 07/17/23 02/28/24 History vomiting pseudoephedrine HCl 30 mg tablet 30 mg PO DAILY 09/30/23 02/28/24 History (Sudafed) fluticasone fur. 200 mcg-umeclid 1 inh inhalation Q24H 02/23/24 02/28/24 History 62.5 mcg-vilant 25 mcg inhalat.powder (Trelegy Ellipta) tizanidine 4 mg tablet 4 mg PO TID 02/23/24 02/28/24 History sucralfate 1 gram tablet 1 g PO Q6H 4 weeks #112 tabs 02/28/24 Rx Allergies Allergy/AdvReac Type Severity Reaction Status Date / Time Iodinated Contrast Media Allergy Verified 02/23/24 14:05 latex Allergy Verified 02/23/24 14:05 erythromycin base AdvReac Severe Verified 12/04/23 08:15 Penicillins AdvReac Severe Anaphylaxis Verified 12/04/23 08:15 cephalexin [From Keflex] AdvReac Intermediate Hives Verified 12/04/23 08:15 doxycycline AdvReac Intermediate Hives Verified 12/04/23 08:15 iodine AdvReac Intermediate Hives Verified 12/04/23 08:15 morphine AdvReac Intermediate Vomiting Verified 12/04/23 08:15 oxycodone [From Percocet] AdvReac Intermediate Vomiting Verified 12/04/23 08:15 procaine [From Novocain] AdvReac Intermediate Migraine Verified 02/23/24 14:07 ciprofloxacin [From Cipro] AdvReac Mild Hives Verified 12/04/23 08:15 Exam Narrative Exam Narrative: Psych-alert and oriented x 3. Attentive and appropriate, constitutionally normal, displays normal mood and affect per situation.? There are no obvious deficits in memory, reasoning, or intellect.? Skin-no obvious rashes, bruising, erythema noted to the patient's area of pain. Extremities- extremities are warm with minimal edema and palpable pulses. Thoracic - tenderness to palpation noted in the left thoracic spine and paraspinal musculature.?Multiple trigger points expressed on palpation. Range of motion is slightly diminished with these motions due to pain. Coordination remains intact.? Gait remains non-antalgic. Constitutional Documenting provider has reviewed patient's vital signs: yes Common normals: no apparent distress, oriented x3, healthy appearing, alert and well nourished General appearance: cooperative [facility] Common normals: normocephalic, hearing grossly normal bilaterally and moist oral mucous membranes Head and scalp: normocephalic Eye Common normals: PERRL Pupil: PERRL Neck & C-Spine Common normals: full ROM General: normal visual inspection Chest Common normals: inspection of chest normal Respiratory Common normals: normal respiratory effort, no retractions and no use of accessory muscles Back & Pelvis Thoracic spine/upper back: pain with ROM, thoracic spinal tenderness, paraspinal muscle tenderness and paraspinal muscle spasm Extremity Common normals: normal to inspection and full ROM Neuro Common normals: oriented x3, CN's II-XII intact bilaterally, moves all extremities, no focal motor deficits, no sensory deficits noted and deep tendon reflexes 2+ bilaterally Sensorium/orientation: alert Motor exam: strength 5/5 throughout and no movement abnormalities noted Psych Common normals: mental status grossly normal, thought process normal, cooperative, affect normal, speech normal and activity/motor behavior normal Speech: normal speech Thought process: normal thought process Results Additional Findings Additional findings: If on a controlled substance or opioids, I have checked an [place] report on this patient and there are no aberrancies noted in the prescribing history.??If on a controlled substance or opioid a drug screen was completed and reviewed within the last year, and if there has not been a drug screen completed we ordered one today to monitor higher risk, state monitored pain medication use. As part of providing excellent, safe, comprehensive care, the following was completed at our patient's visit: 1. A medication reconciliation and review to ensure accurate knowledge of current/active medications, including asking our patients to inform us about any peds-tqf-iuqnzlk medications or herbal remedies/nutritional supplements/alternative remedies. 2. A review to specifically ensure our patients have had annual screening for screening for depression, screening for tobacco use, and screening for unhealthy alcohol use. For concerning screenings had a discussion with the patient, provided patient education, and recommended follow-up with primary care provider when appropriate. If patient noted with a risk of falling, they received education on strength, gait, and balance training to prevent future risk of falling. Assessment and Plan Assessment and Plan (1) Thoracic spondylosis: Assessment and Plan: The patient has had over 3 months of moderate to severe mid back pain with functional impairment and inadequate response to conservative care including NSAIDS (unless there are contraindication such as concurrent blood thinners), multiple oral or topical pain medications, and home exercise program/physical therapy.? Patient has completed >6 weeks of guided home exercise program and/or formal physical therapy program without relief of their symptoms.? We discussed the risks and benefits of the procedure with the patient, and we are NOT planning on using sedation as outlined in the guidelines from Medicare unless there is a documented reason that sedation would be strongly recommended.?? ?The procedure will be completed with fluoroscopic guidance.? 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
== END 2024-02-29 11:04 | disposition home or self-care (01) ==
PROVIDERS: PCP Family Medicine; Visit Provider Nurse Practitioner
DX: M47.814 Spondylosis without myelopathy or radiculopathy, thoracic region (principal); M54.6 Pain in thoracic spine; G89.29 Other chronic pain; M62.838 Other muscle spasm
CPT/HCPCS: G0463

== ENCOUNTER 2024-03-25 00:31 | Outpatient (RCR) | payer BC, MEDICARE, SELFPAY | END 2024-04-24 10:12 | disposition home or self-care (01) | LOC: MM 00:31 | PROVIDERS: PCP Family Medicine; Visit Provider Internal Medicine | DX: Z51.81 Encounter for therapeutic drug level monitoring (principal); Z79.01 Long term (current) use of anticoagulants | CPT/HCPCS: 85610; G0463 ==

== ENCOUNTER 2024-04-25 00:25 | Outpatient (RCR) | payer BC, MEDICARE, SELFPAY | END 2024-05-24 10:02 | disposition home or self-care (01) | LOC: MM 00:25 | PROVIDERS: PCP Family Medicine; Visit Provider Internal Medicine | DX: Z51.81 Encounter for therapeutic drug level monitoring (principal); Z79.01 Long term (current) use of anticoagulants | CPT/HCPCS: 85610; G0463 ==

== ENCOUNTER 2024-05-07 10:30 | Outpatient (OUT) | payer BC, MEDICARE, SELFPAY ==
--- OUTSIDE RECORDS SUMMARY | 2024-05-07 10:43 | XMS_ITS | CCD ---
Author Organization [facility] CliniSyin Care Team Providers Care 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 Name Role Phone Adilia Mederos Unavailable Lilian Ferreira Unavailable Yesy Covarrubias OT Unavailable Aliza Aguilar MD Unavailable [phone] [place], DR TANK Aguillon Primary Care Unavailable LAKE, DR TANK Aguillon Consulting Unavailable LAKE, DR TANK Aguillon Attending Unavailable LAKE, DR TANK Aguillon Admitting Unavailable LAKE, DR TANK Aguillon Primary Care Unavailable LAKE, DR TANK Aguillon Consulting Unavailable LAKE, DR TANK Aguillon Attending Unavailable LAKE, DR TANK Aguillon Admitting Unavailable ZIEBER, DR LIZ Salvador Consulting Unavailable LAKE, DR TANK Aguillon [...] Yesy Unavailable Aliza Aguilar MD. Unavailable LakeDO Tank Primary Care Provider Aliza Aguilar Attending Provider PROVIDER, UNKNOWN Admitting Unavailable PROVIDER, UNKNOWN Attending Unavailable PROVIDER, UNKNOWN Attending Unavailable PROVIDER, UNKNOWN Admitting Unavailable ALIZA AGUILAR. Referring Unavailable PROVIDER, UNKNOWN Admitting Unavailable PROVIDER, UNKNOWN Attending Unavailable Giedraitis , Andrius Quinten Attending Unavailable Giedraitis MD, Andrius Vytautjoanne Attending Unavailable Giedraitis MD, Andrius Vytautjoanne Attending Unavailable Giedraitis MD, Andrius Vytautjoanne Attending Unavailable Giedraitis MD, Andrius Vytautjoanne Attending Unavailable Giedraitis MD, Andrius Vytautjoanne Attending Unavailable Giedraitis MD, Andrius Vytbrianna Attending Unavailable Giedraitis MD, Andrius Vytbrianna Attending Unavailable Lake, DO Tank A Primary Care Provider [phone] DO Aliza Spencer Attending Provider [phone] Aliza Spencer Admitting Unavailable Aliza Spencer Attending Unavailable Lake, Tank Aguillon Primary Care Unavailable Aliza Aguilar Admitting Unavailable SedrickAliza davenport Attending Unavailable Lake, Tank A Primary Care Unavailable EBONIE SIMPSON Attending Unavailable LAKE, TANK A Referring Unavailable LAKE, TANK A Primary Care Unavailable STEVEN WESTON Attending Unavailable LAKE, TANK A Referring Unavailable LAKE, TANK A Primary Care Unavailable Allergies Allergy Classification Reported Allergen(s) Allergy Type Date of Onset Reaction(s) Facility (3 sources) Acetaminophen / oxyCODONE Drug Allergy stomach upset [facility] Other (3 sources) Adhesive Tape Propensity to adverse reactions rash [facility] Other (4 sources) Cephalexin; Translations: [CEPHALEXIN] Drug Allergy 12-22-19 anaphylaxis [facility] (10 sources) Erythromycin; Translations: [ERYTHROMYCIN] Drug Allergy 12-22-19 06 Other [facility] (6 sources) Iodine; Translations: [iodine] Drug Allergy 01-31-[address] [facility] (5 sources) Latex; Translations: [LATEX] Propensity to adverse reactions 12-22-19 06 rash [facility] (5 sources) Penicillin G Benzathine; Translations: [penicillin G benzathine] Drug allergy 12-11-19 23 anaphylaxis [facility] (3 sources) Procaine Drug Allergy headaches [facility] [employer] Other (2 sources) Cephalexin; Translations: [Keflex] Drug Allergy 01-31-20 13 anaphylaxis [facility] (1 source) Novocain Drug allergy Unknown [facility] Other (8 sources) Acetaminophen; Translations: [ACETAMINOPHEN] Drug Allergy 02-01-20 [...] Drug Allergy 12-22-19 06 Other, Rash [facility] (8 sources) Doxycycline; Translations: [DOXYCYCLINE] Drug Allergy 01-24-20 Itching [facility] (6 sources) Penicillin G; Translations: [PENICILLIN G POTASSIUM] Drug Allergy 02-01-20 08 Anaphylactic Shock [facility] (7 sources) Penicillins; Translations: [PENICILLINS] Propensity to adverse reactions to drug 12-22-19 06 [facility] (7 sources) Quinolones (Antibiotic); Translations: [QUINOLONES] Propensity to adverse reactions to drug 12-22-19 06 Respiratory Problems [facility] Work Phone: (6 sources) Sulfonamides (Antibiotic); Translations: [SULFA ANTIBIOTICS] Propensity to adverse reactions to drug 02-01-20 08 Rash [facility] (6 sources) Bandage Tape; Translations: [BANDAGE TAPE] Propensity to adverse reactions 09-03-20 13 Rash [facility] (9 sources) Erythromycin Base; Translations: [ERYTHROMYCIN BASE] Propensity to adverse reactions to drug 01-24-20 Other [facility] (7 sources) Iodides; Translations: [IODIDES] Propensity to adverse reactions to drug 10-31-19 14 Hives [facility] (6 sources) Other (Review Comments!); Translations: [OTHER (REVIEW COMMENTS!)] Propensity to adverse reactions to drug 07-22-20 19 Agitation [facility] Work Phone: (1 source) Ciprofloxacin Drug Allergy [facility] (1 source) Iodine (And Iodine Containting Drugs) Drug allergy (disorder) 01-31-20 13 [facility] (1 source) Latex Drug allergy (disorder) 01-31-20 13 [facility] (3 sources) Morphine; Translations: [MORPHINE] Drug Allergy 10-21-19 14 vomiting [facility] (1 source) Penicillins Drug allergy (disorder) 01-31-20 13 [facility] (1 source) Sulfonamides (Antibiotic) Drug allergy (disorder) 01-31-20 13 [facility] (1 source) Darvocet-N 100 Drug allergy (disorder) 01-31-20 13 [facility] (1 source) E.E.S. Drug allergy (disorder) 01-31-20 13 [facility] (2 sources) Adhesive Tape; Translations: [adhesive tape] Allergy to substance 12-11-19 rash [facility] (2 sources) oxyCODONE; Translations: [oxycodone] Drug Allergy 12-11-19 stomach upset [facility] (2 sources) Procaine; Translations: [procaine] Drug Allergy 12-11-19 headaches [facility] (1 source) Cephalexin Drug Allergy 12-11-19 [facility] (1 source) Doxycycline Drug Allergy 12-11-19 [facility] (1 source) Latex Drug allergy (disorder) 12-11-19 [facility] (1 source) Morphine Drug Allergy 12-11-19 [facility] (1 source) Adhesive agent; Translations: [ADHESIVE] Propensity to adverse reactions to drug (disorder) 09-03-20 13 [facility] (1 source) Sulfonamides (Antibiotic); Translations: [SULFA (SULFONAMIDE ANTIBIOTICS)] Propensity to adverse reactions to drug (disorder) 12-22-19 06 [facility] (1 source) IODINATED CONTRAST MEDIA; Translations: [IODINATED CONTRAST MEDIA] Propensity to adverse reactions to drug (disorder) 12-22-19 [facility] (1 source) ADHESIVE TAPE-SILICONES; Translations: [ADHESIVE TAPE-SILICONES] Propensity to adverse reactions to drug (disorder) 09-03-20 13 [facility] Medications Current Medications Medication Drug Class(es) Dates Sig (Normalized) Sig (Original) acetaminophen 300 mg / butalbital 50 mg / caffeine 40 mg oral capsule (11 sources) Barbiturate, Central Nervous System Stimulant, Methylxanthine Jsbhvaneod-VOZD-Jp ffeine 50-300-40 MG CAPS Take by mouth daily as needed. 0 Active take 1 capsule by mo uth every four hours Uclwactgys-OPAY-Wgtltogy 50-325-40 MG 1 capsule as needed Orally every 4 hrs Not-Taking Fioricet Active acetaminophen 325 mg / HYDROcodone bitartrate 5 mg oral tablet (10 sources) Opioid Agonist take 1 tablet by mouth once hydrocodone-acetaminophen (NORCO) 5-325 mg per tablet Take 1 Tablet by mouth. 0 Active HYDROcodone-Acet aminophen 7.5-300 MG Orally Not-Taking [place] Active acyclovir 400 mg oral tablet (8 [...] daily. 0 Active take 1 tablet by every twenty-four hours hydroCHLOROthiazide 25 MG 1 [...] by mouth daily. Followed in coumadin clinic [place], [place] 0 Active take 1 tablet by [...] 4 mg/0.1 mL nasal liquid Instill 1 [place] into one nostril (alternate sides) as needed. 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] Onset: 02-22-2023 Episodic Other [...] Test Name Value Interpretation Reference Range Facility [facility] 02-28-2024 L Specimen: [id number] Received: 02/28/24 Status: DUDLEY Powell Num: [id number] Spec Type: Surgical Subm Dr: Aliza Spencer DO Tissues: A Stomach - Biopsy/Polyp (ANTRUM BX) B Stomach - Biopsy/Polyp (BX FUNDAL GLAND POLYP) C Esophagus Biopsy (DISTAL ESOPH BX) D Esophagus Biopsy (UPPER ESOPH BX) Procedures: HE/8, Gross/Micro L4/4 Age/ Patient Sex Location Account Attending Physician Madan Perry 64/F LABELL [id number] Aliza Spencer DO SPEC NUM: [id number] RECD: 02/28/24 STATUS: DUDLEY POWELL NUM: [id number] SUNSHINE: 02/28/[address]: Aliza Spencer DO ENTERED: 02/28/[address]: Reece,Lab SPEC TYPE: Surgical DEPT: MADY CRUZ ORDERED: HE/8, Gross/Micro L4/4 ORDERED: HE/8, Gross/Micro L4/4 Pathological Diagnosis A. Gastric Biopsy: Chronic Inactive Gastritis. B. Polyp, stomach, biopsy: Fundic gland polyp. C. Distal esophagus, biopsy: Acute esophagitis. D. Proximal esophagus, biopsy: Mild acute inflammation. Clinical Information Esophagitis, fundal gland polyps. Gross Description Received are 4 formalin filled containers each labeled with the patient's name, date of and specific specimen site. A. Further labeled antrum BX is a 0.3 x 0.2 x 0.2 cm jiménez polypoid tissue fragment, entirely submitted in A1. B. Further labeled fundal gland polyp is a 0.3 x 0.3 x 0.2 cm jiménez polypoid tissue fragment, entirely submitted in B1. Specimen: [id number] Received: 02/28/24 Status: DUDLEY Olivermedhat Num: [id number] Spec Type: Surgical Subm Dr: Aliza Spencer, Tissues: A Stomach - Biopsy/Polyp (ANTRUM BX) B Stomach - Biopsy/Polyp (BX FUNDAL GLAND POLYP) C Esophagus Biopsy (DISTAL ESOPH BX) D Esophagus Biopsy (UPPER ESOPH BX) Procedures: SABAS Gross/Micro L4/4 Patient: aMdan Perry [id number] (Continued) Specimen: [id number] Received: 02/28/24 (Continued) Gross Description (Continued) Signed (signature on file) Steven Ruvalcaba MD 02/29/24 1501 Specimen: [id number] Received: 02/28/24 Status: DUDLEY Powell Num: [id number] Spec Type: Surgical Subm Dr: Aliaz Spencer DO Tissues: A Stomach - Biopsy/Polyp (ANTRUM BX) B Stomach - Biopsy/Polyp (BX FUNDAL GLAND POLYP) C Esophagus Biopsy (DISTAL ESOPH BX) D Esophagus Biopsy (UPPER ESOPH BX) Procedures: Halina OBREGON/Alta L4/4 Patient: Madan Perry [id number] (Continued) Specimen: [id number] Received: 02/28/24 (Continued) Gross Description (Continued) C. Further labeled distal esophagus BX are 2 jiménez mucosal tissue fragments measuring 0.3 x 0.2 x 0.1 cm and 0.2 x 0.2 x 0.1 cm, entirely submitted in C1. D. Further labeled upper esophagus BX are 2 jiménez mucosal tissue fragments each measuring 0.2 x 0.1 x 0.1 cm, entirely submitted in D1. CPT Codes 52969p6 Specimen: [id number] Received: 02/28/24 Status: DUDLEY Powell Num: [id number] Spec Type: Surgical Subm Dr: Aliza Spencer DO Tissues: A Stomach - Biopsy/Polyp (ANTRUM BX) B Stomach - Biopsy/Polyp (BX FUNDAL GLAND POLYP) C Esophagus Biopsy (DISTAL ESOPH BX) D Esophagus Biopsy (UPPER ESOPH BX) Procedures: WILEY/Ratna, Gross/Micro L4/4 Patient: Madan Perry [id number] (Continued) Signed (signature on file) Steven Ruvalcaba MD 02/29/24 1501 Normal [facility] URINE CULTUREon 12-23-2023 Bacteria identified Cx Nom (U) FINAL Normal (. - .) [facility] Comment on above: Order Comment: MS CC FACILITY: [facility] [id number] Result Comment: HUA N CATCH MID-STREAM URINE > 10,000 BUT < 100,000 CFU/ML RESEMBLES A CONTAMINATED URINE COLLECTION Performed By: #### C -UR #### [facility] [address] [facility], [address] BASIC MET PANEL W/GFRon 12-0 Calcium [Mass/Vol] 9.2 mg/dL Normal (8.6 - 10.6) [facility] Comment on above: Order Comment: FACIL ITY: [facility] [id number] Performed By: #### C HEM-B #### [facility] [address] [facility], [address] Chloride [Moles/Vol] 99 mmol/L Normal (98 - 107) [facility] Comment on above: Order Comment: FACIL ITY: [facility] [id number] Performed By: #### C HEM-B #### [facility] [address] [facility], [address] CO2 [Moles/Vol] 27 mmol/L Normal (22 - 30) [facility] Comment on above: Order Comment: FACIL ITY: [facility] [id number] Performed By: #### C HEM-B #### [facility] [address] [place], [address] Creatinine [Mass/Vol] 0.74 mg/dL Normal (0.52 - 1.04) [facility] Comment on above: Order Comment: FACIL ITY: [facility] [id number] Performed By: #### C HEM-B #### [facility] [address] [place], [address] GFR- AMER 95.6 ML/M1.7 Normal (60.0 - 140.1) [facility] Comment on above: Order Comment: FACIL ITY: [facility] [id number] Performed By: #### C HEM-B #### [facility] [address] [place], [address] GFR-NON AFRIC-AMER 79.0 ML/M1.7 Normal (60.0 - 115.8) [facility] Comment on above: Order Comment: FACIL ITY: [facility] [id number] Performed By: #### C HEM-B #### [facility] [address] [place], [address] Glucose [Mass/Vol] 100 mg/dL Normal (74 - 106) [facility] Comment on above: Order Comment: FACIL ITY: [facility] [id number] Performed By: #### C HEM-B #### [facility] [address] [place], [address] Potassium [Moles/Vol] 4.6 mmol/L Normal (3.5 - 5.1) [facility] Comment on above: Order Comment: FACIL ITY: [facility] [id number] Performed By: #### C HEM-B #### [facility] [address] [place], [address] Sodium [Moles/Vol] 136 mmol/L Low (137 - 145) [facility] Comment on above: Order Comment: FACIL ITY: [facility] [id number] Performed By: #### C HEM-B #### [facility] [address] [facility], [address] Urea nitrogen [Mass/Vol] 11 mg/dL Normal (7 - 17) [facility] Comment on above: Order Comment: FACIL ITY: [facility] [id number] Performed By: #### C HEM-B #### [facility] [address] [facility], [address] Progress Noteson 08-25-2023 Manager Sales Authentication Interface Message Text CC: Left hand and wrist pain Follow up after MRI done at [facility]. Normal [facility] Manager Sales Authentication Interface Message Text Patient Office Note or Post OP Note Name:Madan M Dionna Date: 08/25/2023 CC: left wrist pain at [facility] area No chief complaint on file. [...] of this patient. Aliza Aguilar MD Injection Procedure.[facility] 08/25/2023 [id number] Madan Perry The patient requested an injection [...] conon 023 MR wrist LT wo con [facility] [place] [id number] MRI Report Signed Patient: Madan Perry MR#: [id number] : 1960 Acct:[id number] Age/Sex: 63 / F ADM Date: 07/20/23 Loc: [facility] Room: Type: [facility] Attending Dr: Aliza Aguilar Copies to: Aliza Aguilar Ordering Provider: Aliza Aguilar Date of Service: 07/20/23 MR/MR hand LT wo con: MEDIAN NERVE COMPRESSION ([id number]) MR/MR wrist LT wo con: MEDIAN NERVE COMPRESSION ([id number]) XR/XR pre/post mri xray: MEDIAN NERVE COMPRESSION [...] Jose Dial M.D.07/21/2023 7:38 PM Dictation Location: [place] [address] Transcribed By: [facility] 07/21/231937 Dictated By: Jose Dial DO 07/20/23 1525 Signed By: 07/21/231937 Normal [facility] Telephone Encounteron 2022 Manager Sales Authentication Interface Message Text Spoke with patient and scheduled. Normal The [facility] Telephone Encounteron 2022 Manager Sales Authentication Interface Message Text Pt called as [...] she would need something sooner. Contact pt [phone] Normal [facility] Addendum Noteon 06-16-2023 Manager Sales Authentication Interface Message Text Addended by: ALIZA AGUILAR on: 06/16/2023 11:34 AM Modules accepted: Orders Normal [facility] Progress Noteson 06-16-2023 Manager Sales Authentication Interface Message Text Patient Office Note [...] this patient. Aliza Aguilar MD Normal [facility] Manager Sales Authentication Interface Message Text CC: Left hand pain Pain Left wrist and hand; tingling to middle and ring fingers. Pt states ganglion which was removed has returned and is painful. CMC joint painful. 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 Normal [facility] XR HAND LEFT 3 VIEWSon 06-16 [...] findings. Left hand MACRO: None Normal [facility] Hand - left 3 Viewson [...] with the findings. Left hand MACRO: None [facility] Radiology Study observation (narrative) [facility] Hand - left 3 ViewsOrdere d By: Alberto Llanes on 06-16-2023 [employer] [employer] Work Phone: US DARNELL DOP LEG BILon [...] [place] Date: 2023-01-27 17:22 Normal [facility] CBC AUTO DIFFon 01-12-2023 BASO # 0.1 103/ul Normal 0.0-0.1 [facility] Comment on above: Performed By: #### C BC #### [facility] [address] [place] [address] Dr. Rocio Hernandez Basophils/100 WBC (Bld) 1.0 % Normal 0.2-2.0 [facility] Comment on above: Performed By: #### C BC #### [facility] [address] [place] [address] Dr. Rocio Hernandez EO # 0.2 103/ul Normal 0.0-0.7 [facility] Comment on above: Performed By: #### C BC #### [facility] [address] [place] [address] Dr. Rocio Hernandez Eosinophils/100 WBC (Bld) 2.9 % Normal 0.9-7.0 [facility] Comment on above: Performed By: #### C BC #### [facility] [address] [place] [address] Dr. Rocio Hernandez Erythrocyte distribution width (RBC) [Ratio] 14.1 % Normal 11.0-15.0 [facility] Comment on above: Performed By: #### C BC #### [facility] [address] [place] [address] Dr. Rocio Hernandez Hematocrit (Bld) [Volume fraction] 41.2 % Normal 36.0-48.0 [facility] Comment on above: Performed By: #### C BC #### [facility] [address] [place] [address] [address] Rocio Hernandez Hemoglobin (Bld) [Mass/Vol] 13.6 g/dL Normal 12.0-16.0 [facility] Comment on above: Performed By: #### C BC #### [facility] [address] [place] [address] Dr. Rocio Hernandez IG # 0.01 10e3/ul Normal 0.00-0.03 [facility] Comment on above: Performed By: #### C BC #### [facility] [address] [place] [address] Dr. Rocio Hernandez IG % 0.2 % Normal 0.0-0.5 [facility] Comment on above: Performed By: #### C BC #### [facility] [address] [place] [address] Dr. Rocio Hernandez LYMPH # 1.3 103/ul Normal 1.2-3.8 [facility] Comment on above: Performed By: #### C BC #### [facility] [address] [place] [address] Dr. Rocio Hernandez Lymphocytes/100 WBC (Bld) 21.9 % Normal 20.5-60.0 [facility] Comment on above: Performed By: #### C BC #### [facility] [address] [place] [address] Dr. Rocio Hernandez MANUAL DIFF REQ NO Normal [facility] Comment on above: Performed By: #### C BC #### [facility] [address] [place] [address] Dr. Rocio Hernandez MCH (RBC) [Entitic mass] 28.4 pg Normal 26.7-34.0 [facility] Comment on above: Performed By: #### C BC #### [facility] [address] [place] [address] Dr. Rocio Hernandez MCHC (RBC) [Mass/Vol] 33.0 g/dL Normal 29.9-35.2 [facility] Comment on above: Performed By: #### C BC #### [facility] [address] [place] [address] [address] Rocio Hernandez MCV (RBC) [Entitic vol] 86.0 fL Normal 81.0-99.0 [facility] Comment on above: Performed By: #### C BC #### [facility] [address] [place] [address] [address] Rocio Hernandez MONO # 0.6 103/ul Normal 0.3-0.8 [facility] Comment on above: Performed By: #### C BC #### [facility] [address] [place] [address] [address] Rocio Hernandez Monocytes/100 WBC (Bld) 10.3 % Normal 1.7-12.0 [facility] Comment on above: Performed By: #### C BC #### [facility] [address] [place] [address] [address] Rocio Hernandez NEUT # 3.8 103/ul Normal 1.4-6.5 [facility] Comment on above: Performed By: #### C BC #### [facility] [address] [place] [address] [address] Rocio Hernandez Neutrophils/100 WBC (Bld) 63.7 % Normal 43.0-75.0 [facility] Comment on above: Performed By: #### C BC #### [facility] [address] [place] [address] [address] Rocio Hernandez Platelet mean volume (Bld) [Entitic vol] 9.0 fL Critically low 9.5-13.5 [facility] Comment on above: Performed By: #### C BC #### [facility] [address] [place] [address] [address] Rocio Hernandez PLT 360 103/ul Normal 150-450 [facility] Comment on above: Performed By: #### C BC #### [facility] [address] [place] [address] [address] Rocio Hernandez RBC 4.79 106/ul Normal 4.20-5.40 [facility] Comment on above: Performed By: #### C BC #### [facility] [address] [place] [address] [address] Rocio Hernandez WBC 5.9 103/ul Normal 4.0-11.0 [facility] Comment on above: Performed By: #### C BC #### [facility] [address] [place] [address] [address] Rocio Hernandez FREE T3on 01-12-2023 FREE T3 2.31 pg/mlL Normal 2.18-3.98 [facility] Comment on above: Performed By: #### T SH, CMP, LIPID, FT3 ####[facility] [address] [place] [address]Dr. Rocio Hernandez FREE T4on 01-12-2023 Free T4 [Mass/Vol] 1.21 ng/dL Normal 0.76-1.46 [facility] Comment on above: Performed By: #### B 12FOL, FT4 #### [facility] [address] [place] [address] [address] Rocio Hernandez GLYCOHEMOGLOBIN A1Con 2022 ADA RECOMMENDATION SEE BELOW Normal [facility] Comment on above: Result Comment: ADA RECOMMENDED LIMIT 4.0 - 6.0 ADA THERAPEUTIC TARGET < 7.0 ACTION SUGGESTED > 7.0 Performed By: #### A 1C ####[facility] [address] [place] [address]DrClem Hernandez Glucose [Mass/Vol] 123 mg/dL Normal [facility] Comment on above: Performed By: #### A 1C ####[facility] [address] [place] [address]DrClem Hernandez HbA1c (Bld) [Mass fraction] 5.9 % Normal 4.5-6.2 [facility] Comment on above: Performed By: #### A 1C ####[facility] [address] [place] [address]Dr. Rocio Hernandez LIPID PROFILEon 01-12-2023 CHOL-HDL RATIO NORM SEE BELOW Normal [facility] Comment on above: Result Comment: 3.3 - 4.4 LOW RISK 4.4 - 7.1 AVERAGE RISK 7.1 - 11.0 MODERATE RISK >11.0 HIGH RISK Performed By: #### T SH, CMP, LIPID, FT3 #### [facility] [address] [place] [address] [address] Rocio Hernandez Cholesterol [Mass/Vol] 203 mg/dL Critically high <=200 [facility] Comment on above: Performed By: #### T SH, CMP, LIPID, FT3 #### [facility] [address] [place] [address] [address] Rocio Hernandez Cholesterol in HDL [Mass/Vol] 89 mg/dL Critically high 40-60 [facility] Comment on above: Performed By: #### T SH, CMP, LIPID, FT3 #### [facility] [address] [place] [address] [address] Rocio Hernandez Cholesterol in LDL [Mass/Vol] 87.8 mg/dL Normal [facility] Comment on above: Performed By: #### T SH, CMP, LIPID, FT3 #### [facility] [address] [place] [address] Dr. Rocio Hernandez Cholesterol.total/C holesterol in HDL [Mass ratio] 2.3 {ratio} Normal [facility] Comment on above: Performed By: #### T SH, CMP, LIPID, FT3 #### [facility] [address] [address] [address] Rocio Hernandez HDL NORMAL > or = 60 mg/dl - LO W CARDIOVASCULAR RISK <40 mg/dl - HIGH CARDIOVASCULAR RISK Normal [facility] Comment on above: Performed By: #### T SH, CMP, LIPID, FT3 #### [facility] [address] [place] [address] Dr. Rocio Hernandez LDL CALC NORMAL SEE BELOW Normal [facility] Comment on above: Result Comment: <100 mg/dl OPTIMAL 100 - 129 mg/dl NEAR OR ABOVE OPTIMAL 130 - 159 mg/dl BORDERLINE HIGH 160 - 189 mg/dl HIGH >190 mg/dl VERY HIGH Performed By: #### T SH, CMP, LIPID, FT3 #### [facility] [address] [address] [address] Rocio Hernandez Triglyceride [Mass/Vol] 131 mg/dL Normal <=150 [facility] Comment on above: Performed By: #### T SH, CMP, LIPID, FT3 #### [facility] [address] [address] [address] Rocio Hernandez VLDL CALC 26.2 mg/dL Normal [facility] Comment on above: Performed By: #### T SH, CMP, LIPID, FT3 #### [facility] [address] [address] [address] Rocio Hernandez MICROALB CREAT RATIO RANDOMo n 01-12-2023 mALB <1.3 Normal <=30.0 [facility] Comment on above: Performed By: #### M CRR ####[facility] [address] [address]DrClem Hernandez MALB CR RATIO 13.6 mg/g Normal 0.0-29.9 [facility] Comment on above: Performed By: #### M CRR ####[facility] [address] [address]Dr. Rocio Hernandez MALB CR RATIO RANGE SEE BELOW Normal [facility] Comment on above: Result Comment: NO M ICROALBUMINURIA 0-29 MG/G CLINICAL MICROALBUMINURIA 30-300 MG/G MACROALBUMINURIA >300 MG/G Performed By: #### M CRR ####[facility] [address] [id number]. Rocio Hernandez URINE CREAT 95.84 mg/dL Normal 20.00-300.00 [facility] Comment on above: Performed By: #### M CRR ####[facility] [address] [address]Dr. Rocio Hernandez PROF 14(COMP METB)on 023 Albumin [Mass/Vol] 3.8 g/dL Normal 3.4-5.0 [facility] Comment on above: Performed By: #### T SH, CMP, LIPID, FT3 #### [facility] [address] [address] [address] Rocio Hernandez Albumin/Globulin [Mass ratio] 0.9 {ratio} Normal [facility] Comment on above: Performed By: #### T SH, CMP, LIPID, FT3 #### [facility] [address] [address] [address] Rocio Hernandez ALP [Catalytic activity/Vol] 111 U/L Normal 46-116 [facility] Comment on above: Performed By: #### T SH, CMP, LIPID, FT3 #### [facility] [address] [address] [address] Rocio Hernandez ALT [Catalytic activity/Vol] 42 U/L Normal 14-59 [facility] Comment on above: Performed By: #### T SH, CMP, LIPID, FT3 #### [facility] [address] [address] [address] Rocio Hernandez Anion gap [Moles/Vol] 10.8 mmol/L Normal [facility] Comment on above: Performed By: #### T SH, CMP, LIPID, FT3 #### [facility] [address] [place] [address] Dr. Rocio Hernandez AST [Catalytic activity/Vol] 24 U/L Normal 15-37 [facility] Comment on above: Performed By: #### T SH, CMP, LIPID, FT3 #### [facility] [address] [place] [address] Dr. Rocio Hernandez Bilirubin [Mass/Vol] 0.4 mg/dL Normal 0.2-1.0 [facility] Comment on above: Performed By: #### T SH, CMP, LIPID, FT3 #### [facility] [address] [address] [address] Rocio Hernandez Calcium [Mass/Vol] 9.6 mg/dL Normal 8.5-10.1 [facility] Comment on above: Performed By: #### T SH, CMP, LIPID, FT3 #### [facility] [address] [place] [address] Dr. Rocio Hernandez Chloride [Moles/Vol] 93 mmol/L Critically low 98-107 [facility] Comment on above: Performed By: #### T SH, CMP, LIPID, FT3 #### [facility] [address] [place] [address] Dr. Rocio Hernandez CO2 [Moles/Vol] 31.2 mmol/L Normal 21.0-32.0 [facility] Comment on above: Performed By: #### T SH, CMP, LIPID, FT3 #### [facility] [address] [address] [address] Rocio Hernandez Creatinine [Mass/Vol] 1.02 mg/dL Normal 0.55-1.02 [facility] Comment on above: Performed By: #### T SH, CMP, LIPID, FT3 #### [facility] [address] [address] [address] Rocio Hernandez EGFR-AF MARSHALLESE >60 Normal >=60 [facility] Comment on above: Performed By: #### T SH, CMP, LIPID, FT3 #### [facility] [address] [place] [address] Dr. Rocio Hernandez EGFR-NON AF MARSHALLESE 55 mL/min/1.73m2 Critically low >=60 [facility] Comment on above: Performed By: #### T SH, CMP, LIPID, FT3 #### [facility] [address] [address] [address] Rocio Hernandez Globulin (S) [Mass/Vol] 4.4 g/dL Normal [facility] Comment on above: Performed By: #### T SH, CMP, LIPID, FT3 #### [facility] [address] [place] [address] Dr. Rocio Hernandez Glucose [Mass/Vol] 102 mg/dL Normal 74-106 [facility] Comment on above: Performed By: #### T SH, CMP, LIPID, FT3 #### [facility] [address] [address] [address] Rocio Hernandez Potassium [Moles/Vol] 4.0 mmol/L Normal 3.5-5.1 [facility] Comment on above: Performed By: #### T SH, CMP, LIPID, FT3 #### [facility] [address] [address] [address] Rocio Hernandez Protein [Mass/Vol] 8.2 g/dL Normal 6.4-8.2 [facility] Comment on above: Performed By: #### T SH, CMP, LIPID, FT3 #### [facility] [address] [address] [address] Rocio Hernandez Sodium [Moles/Vol] 131 mmol/L Critically low 136-145 [facility] Comment on above: Performed By: #### T SH, CMP, LIPID, FT3 #### [facility] [address] [place] [address] Dr. Rocio Hernandez Urea nitrogen [Mass/Vol] 6.0 mg/dL Critically low 7.0-18.0 [facility] Comment on above: Performed By: #### T SH, CMP, LIPID, FT3 #### [facility] [address] [place] [address] Dr. Rocio Hernandez Urea nitrogen/Creatinine [Mass ratio] 5.9 mg/mg Normal [facility] Comment on above: Performed By: #### T SH, CMP, LIPID, FT3 #### [facility] [address] [place] [address] Dr. Rocio Hernandez TSHon 01-12-2023 TSH 5.647 uIU/mL Critically high 0.358-3.740 [facility] Comment on above: Performed By: #### T SH, CMP, LIPID, FT3 #### [facility] [address] [place] [address] Dr. Rocio Hernandez VIT B12 AND FOLATEon 023 Cobalamin (Vitamin B12) [Mass/Vol] 1189.0 pg/mL Critically high 193.0-986.0 [facility] Comment on above: Performed By: #### B 12FOL, FT4 #### [facility] [address] [place] [address] Dr. Rocio Hernandez FOLATE 27.30 ng/mL Normal 8.60-58.90 [facility] Comment on above: Performed By: #### B 12FOL, FT4 #### [facility] [address] [place] [address] Dr. Rocio Hernandez MG MAMM SCREEN 3D TANIA CADon 12-19-2022 MG MAMM SCREEN 3D TANIA CAD Patient: MADAN PERRY Exam Date: 12/19/2022 : 1960 Gender:F Ordering : DR [place] D.O. Admission #: [id number] Family : Order #: [id number] CLICK HERE TO VIEW EXAM RADIOLOGY REPORT [...] ovarian cancer at age 54. LOCATION: [facility] BREAST COMPOSITION: Scattered areas fibroglandular density. [...] PALPABLE LUMP SHOULD BE BIOPSIED. Dictated by: Liz Flores M.D. on 12/19/2022 at 11:15 Approved by: Liz Flores M.D. on 12/19/2022 at 11:19 Normal [facility] XR DEXA BONE DENSITYon 12-19 XR [...] - Low Fracture Risk Electronically authenticated by: LIZ FLORES Date: 2022-12-19 10:[address] [facility] FREE T3on 03-22-2022 FREE T3 2.43 pg/mlL Normal 2.18-3.98 [facility] Comment on above: Performed By: #### B MP, FT3, TSH ####[facility] [address] [address]Dr. Rocio Hernandez FREE T4on 03-22-2022 Free T4 [Mass/Vol] 1.43 ng/dL Normal 0.76-1.46 [facility] Comment on above: Performed By: #### F T4 ####[facility] [address] [place], [place] [address]Dr. Rocio Hernandez PROF CHEM 8 (BAS METB)on Anion gap [Moles/Vol] 10.2 mmol/L Normal [facility] Comment on above: Performed By: #### B MP, FT3, TSH ####[facility] [address] [address]Dr. Rocio Hernandez Calcium [Mass/Vol] 8.8 mg/dL Normal 8.5-10.1 [facility] Comment on above: Performed By: #### B MP, FT3, TSH ####[facility] [address] [address]Dr. Rocio Hernandez Chloride [Moles/Vol] 104 mmol/L Normal 98-107 [facility] Comment on above: Performed By: #### B MP, FT3, TSH ####[facility] [address] [address]Dr. Rocio Hernandez CO2 [Moles/Vol] 31.7 mmol/L Normal 21.0-32.0 [facility] Comment on above: Performed By: #### B MP, FT3, TSH ####[facility] [address] [address]Dr. Rocio Hernandez Creatinine [Mass/Vol] 0.96 mg/dL Normal 0.55-1.02 [facility] Comment on above: Performed By: #### B MP, FT3, TSH ####[facility] [address] [address]Dr. Rocio Hernandez EGFR-AF MARSHALLESE >60 Normal >=60 [facility] Comment on above: Performed By: #### B MP, FT3, TSH ####[facility] [address] [address]Dr. Rocio Hernandez EGFR-NON AF MARSHALLESE 59 mL/min/1.73m2 Critically low >=60 [facility] Comment on above: Performed By: #### B MP, FT3, TSH ####[facility] [address] [place], [place] [address]Dr. Rocio Hernandez Glucose [Mass/Vol] 110 mg/dL Critically high 74-106 [facility] Comment on above: Performed By: #### B MP, FT3, TSH ####[facility] [address] [place], [place] [address]Dr. Rocio Hernandez Potassium [Moles/Vol] 2.9 mmol/L Critically low 3.5-5.1 [facility] Comment on above: Result Comment: TEST REPEATED CRITICAL VALUE VERIFIED Performed By: #### B MP, FT3, TSH ####[facility] [address] [address]Dr. Rocio Hernandez Sodium [Moles/Vol] 141 mmol/L Normal 136-145 [facility] Comment on above: Performed By: #### B MP, FT3, TSH ####[facility] [address] [place], [place] [address]Dr. Rocio Hernandez Urea nitrogen [Mass/Vol] 12.0 mg/dL Normal 7.0-18.0 [facility] Comment on above: Performed By: #### B MP, FT3, TSH ####[facility] [address] [place], [place] [address]Nl. Rocio Hernandez Urea nitrogen/Creatinine [Mass ratio] 12.5 mg/mg Normal [facility] Comment on above: Performed By: #### B MP, FT3, TSH ####[facility] [address] [place], [place] [address]Je. Rocio Hernandez TSHon 03-22-2022 TSH 0.137 uIU/mL Critically low 0.358-3.740 [facility] Comment on above: Performed By: #### B MP, FT3, TSH ####[facility] [address] [place], [place] [address]Ia. Rocio Hernandez Patient Letter FTMCon 2020 Patient Letter FT (Inserted Image. Wilda ble to display) May 26, 2021 MADAN PERRY [address] [facility] [address] [place] [address] MADAN PERRY 1960 Dear Madan, This is a SECOND ATTEMPT to remind you that you are due for an appointment with [facility]. Please contact our office at [phone] to schedule an appointment at your earliest convenience. Thank you, [facility] Reminderson 05-26-2021 Reminders - From: Jane Onofre To: [facility] - Reminders/Recalls; Sent: 01/18/2021 12:33:31 EDT Show up: 04/25/2021 12:33:00 EDT Subject: Ambulatory Reminder Due Date/Time: 06/09/2021 12:33:00 EDT Reminder/Recall sara peace 5 year colon 06/09/2021 first recall letter second rcall letter Normal [facility] Patient Letter FTMCon 2020 Patient Letter FT (Inserted Image. Wilda ble to display) May 05, 2021 MADAN PERRY [address] [facility] [address] [place] [address] MADAN PERRY 1960 Dear Madan, This is a reminder that you are due for an appointment with [facility]. Please contact our office at [phone] to schedule an appointment at your earliest convenience. Thank you, [facility] Normal [facility] Vital Signs Date Time Vital Sign Value Performing Clinician Facility 05-09-2022 16:35-0400 Body height 161.29 cm Adilia Cardenasault Other [facility] Other 05-09-2022 16:35-0400 Body mass index (BMI) [Ratio] 25.63 kg/m2 Adilia Rosa M Other [facility] Other 05-09-2022 16:35-0400 Body temperature 97.8 [degF] Adilia Rosa M Other [facility] Other 05-09-2022 16:35-0400 Body weight 66.68 kg Adilia Rosa M Other [facility] Other 05-09-2022 16:35-0400 Diastolic blood pressure 79 mm[Hg] Adilia Rosa M Other [facility] Other 05-09-2022 16:35-0400 Respiratory rate 18 /min Adilia Rosa M Other [facility] Other 05-09-2022 16:35-0400 SaO2% (BldA) [Mass fraction] 98 % Adilia Rosa M Other [facility] Other 05-09-2022 16:35-0400 Systolic blood pressure 136 mm[Hg] Adilia Mederos Other [facility] Other 07-21-2021 16:05-0400 Body height 161.29 cm Lilian Ferreira Other [facility] Other 07-21-2021 16:05-0400 Body mass index (BMI) [Ratio] 26.5 kg/m2 Lilian Ferreira Other [facility] Other 07-21-2021 16:05-0400 Body temperature 96.2 [degF] Lilian Ferreira Other [facility] Other 07-21-2021 16:05-0400 Body weight 68.95 kg Lilian Ferreira Other [facility] Other 07-21-2021 16:05-0400 Diastolic blood pressure 95 mm[Hg] Lilian Ferreira Other [facility] Other 07-21-2021 16:05-0400 Respiratory rate 18 /min Lilian Ferreira Other [facility] Other 07-21-2021 16:05-0400 SaO2% (BldA) [Mass fraction] 99 % Lilian Ferreira Other [facility] Other 07-21-2021 16:05-0400 Systolic blood pressure 132 mm[Hg] Lilian Ferreira Other [facility] Other 06-22-2021 14:20-0400 Body height 161.29 cm Adilia Cardenasault Other [facility] Other 06-22-2021 14:20-0400 Body mass index (BMI) [Ratio] 25.98 kg/m2 Adilia Rosa M Other [facility] Other 06-22-2021 14:20-0400 Body temperature 96.4 [degF] Adilia Rosa M Other [facility] Other 06-22-2021 14:20-0400 Body weight 67.59 kg Adilia Mederos Other [facility] Other 06-22-2021 14:20-0400 Diastolic blood pressure Adilia Mederos Other [facility] Other 06-22-2021 14:20-0400 Respiratory rate 18 /min Adilia Mederos Other [facility] Other 06-22-2021 14:20-0400 SaO2% (BldA) [Mass fraction] 98 % Adilia Mederos Other [facility] Other 06-22-2021 14:20-0400 Systolic blood pressure 111 mm[Hg] Adilia Mederos Other [facility] Other Encounters Encounter Date Encounter Type Care Provider Facility Start: 03-14-2024 End: 03-14-2024 ambulatory [facility] Start: 02-28-2024 End: 02-28-2024 ambulatory DO [place] Work Phone: [facility] Work Phone: Start: 02-28-2024 End: 02-28-2024 Departed Referred DO [place] Work Phone: [facility] Start: 02-20-2024 End: 02-20-2024 ambulatory [facility] Start: 01-15-2024 End: 01-16-2024 ambulatory Meet Harp MD Facility:[facility] Start: 12-04-2023 End: 12-05-2023 ambulatory Meet Harp MD Facility: [facility] Start: 11-06-2023 End: 11-07-2023 ambulatory Meet Harp MD Facility:[facility] Start: 10-09-2023 End: 10-10-2023 ambulatory Meet Harp MD Facility:[facility] Start: 08-25-2023 End: 08-25-2023 ambulatory ALIZA AGUILAR Facility:[facility] Start: 08-25-2023 End: 08-25-2023 Office outpatient visit 15 minutes Aliza Aguilar MD Work Phone: [facility] Comment on above: Hand arthritis (Prim maurisio Dx) Start: 08-21-2023 End: 08-22-2023 ambulatory Meet Harp MD Facility:[facility] Start: 08-19-2023 Letter encounter Yesy Covarrubias OT Work Phone: [facility] Start: 07-31-2023 End: 08-01-2023 ambulatory Meet Harp MD Facility:[facility] Start: 07-24-2023 End: 07-25-2023 ambulatory Meet Harp MD Facility:[facility] Start: 07-20-2023 End: 07-20-2023 Patient encounter procedure DO [place] Work Phone: [facility] [address] Work Phone: Start: 07-20-2023 End: 07-20-2023 ambulatory DO [place] Work Phone: [facility] Work Phone: Start: 07-10-2023 End: 07-11-2023 ambulatory [facility] Start: 06-16-2023 End: 06-17-2023 ambulatory [facility]ER [facility] Start: 06-16-2023 End: 06-16-2023 Office outpatient visit 25 minutes Aliza Aguilar MD Work Phone: [facility] Comment on above: Left hand pain (Prim maurisio Dx) Start: 06-16-2023 End: 06-16-2023 Subsequent hospital visit by physician [facility] Op Op X-Ray 1 Work Phone: [facility] Di[facility] Radiology Comment on above: Left hand pain Start: 02-07-2023 End: 02-08-[address] [place] Facility:[facility] Start: 01-27-2023 End: 01-28-[address] [place] Facility:[facility] Start: 01-23-2023 End: 02-22-2023 ambulatory DUARTE H CODY Facility:[facility] Start: 01-16-2023 Encounter for genera l adult medical examination without abnormal findings DR [place] [facility] Start: 01-12-2023 End: 01-13-[address] [place] Facility:[facility] Start: 01-12-2023 End: 01-13-2023 Encounter for general adult medical examination without abnormal findings DR [place] Facility:[facility] Start: 12-26-2022 End: 01-20-2023 ambulatory DUARTE H CODY Facility:[facility] Start: 12-19-2022 End: 12-20-[address] [place] Facility:[facility] Start: 11-23-2022 End: 12-23-2022 ambulatory UDARTE H CLWWAAbdifatah Facility:[facility] Start: 10-26-2022 End: 11-23-2022 ambulatory DUARTE H FAWWAD Facility:[facility] Start: 09-26-2022 End: 10-26-2022 ambulatory DUARTE H FAWWAD Facility:[facility] Start: 08-25-2022 End: 09-25-2022 ambulatory DUARTE H FAWWAD Facility:[facility] Start: 07-26-2022 End: 08-24-2022 ambulatory DUARTE H FAWWAD Facility:[facility] Start: 06-26-2022 End: 07-25-2022 ambulatory DUARTE H FAWWAAbdifatah Facility:[facility] Start: 06-20-2022 End: 06-21-[address] [place] Facility:[facility] Start: 05-26-2022 End: 06-25-2022 ambulatory SHAIKH Eduardo ROSS Facility:[facility] Start: 05-13-2022 Letter encounter Yesy Covarrubias OT Work Phone: [facility] Start: 05-09-2022 End: 05-09-2022 ambulatory Adilia Mederos Other [facility] Other Start: 05-09-2022 Office outpatient vi sit 15 minutes Adilai Mederos [facility] Start: 05-04-2022 [...] 06-22-2021 Office outpatient vi sit 15 minutes Aidliamichi Mederos [facility] Procedures Date Procedure Procedure Detail Performing Clinician Start: 08-25-2023 Injection 1 tendon sheath/ligament aponeurosis Aliza Aguilar MD Work Phone: Start: 06-16-2023 Radex hand minimum 3 views Aliza Aguilar MD Work Phone: Plan of Treatment Date Care Activity Detail Author Start: 06-04-2028 Tetanus vaccination Tetanus (T d or Tdap) Booster [facility] Start: 01-13-2028 Cholesterol [Mass/volume] in Serum or Plasma Cholesterol [facility] Start: 08-25-2023 End: 08-25-2023 Patient encounter procedure 08/25/2023 11:30 AM EST Office Visit [facility] [address] [place] [address] [address] [place] [address] Aliza Aguilar MD [address] [place] [address] [facility] Start: 07-20-2023 XR pre/post mri xray XR pre/post mri xray [facility] Start: 07-20-2023 [facility] Start: 07-20-2023 MR Wrist - left WO contrast [facility] Start: 07-20-2023 MRI of left wrist MR wrist LT wo con [facility] Start: 07-20-2023 MR Hand - left WO contrast [facility] Start: 07-20-2023 MRI of left hand MR hand LT wo con [facility] Start: 06-25-2023 Influenza vaccination [facility] Start: 06-16-2023 End: 06-16-2024 MR Wrist - left WO contrast MR WRIST LEFT W/O Imaging Routine Left hand pain Expected: 06/16/2023, Expires: 06/16/2024 [facility]: Comment on above: Expected: 06/16/2023 , Expires: 06/16/2024 Start: 05-26-2023 COVID-19 Vaccine (2022- season) COVID-19 Vaccine ( season) [facility] Start: 05-26-2023 Influenza vaccination Influenza Vacc ine [...] Screening for malign ant neoplasm of colon [facility] Start: 1999 Screening for malign ant neoplasm of breast Mammography [facility] Start: 02-11-1980 Screening for malign ant neoplasm of cervix Pap Smear [facility] Start: 1977 Hepatitis C screening Hepatitis C An tibody [facility] Start: 1974 HIV screening HIV Test [facility] Start: 1960 COVID-19 Vaccine ( formulation) COVID-19 Vaccine ( formulation) [facility] Start: 1960 Screening for malign ant neoplasm of colon Colonoscopy [facility] Immunizations Immunization Date Immunization Notes Care Provider [facility] 08-11-2023 influenza, injectabl e, quadrivalent, preservative free Aliza Aguilar MD Work Phone: [facility] 08-11-2023 Respiratory syncytia l virus (RSV), vaccine, bivalent, protein subunit RSV prefusion F, diluent reconstituted, 0.5 mL, preservative free (FLE=776) Aliza Aguilar MD Work Phone: [facility] 06-18-2022 influenza, injectabl e, quadrivalent, preservative free Aliza Aguilar MD Work Phone: [facility] 06-18-2022 influenza virus vacc ine, unspecified formulation Aliza Aguilar MD Work Phone: [facility] 02-05-2022 Pfizer Monovalent (1 2+ yrs) SARS-COV-2 (COVID-19) vaccine, mRNA, spike protein, LNP, pres. free, 30 mcg/0.3mL dose, betito-sucrose (GQS=540) Aliza Aguilar MD Work Phone: [facility] 08-11-2021 influenza, injectabl e, quadrivalent, preservative free Yesy Covarrubias OT Work Phone: [facility] 08-11-2021 influenza virus vacc ine, unspecified formulation Yesy Marci OT Work Phone: [facility] 07-24-2020 zoster vaccine recombinant K athryn Marci OT Work Phone: [facility] 07-11-2020 Influenza, injectabl e, Madin Christal Canine Kidney, preservative free, quadrivalent Yesy Marci OT Work Phone: [facility] 04-18-2020 zoster vaccine recombinant K athryn Marci OT Work Phone: [facility] 08-28-2019 Influenza, injectabl e, Madin Christal Canine Kidney, preservative free, quadrivalent Yesy Marci OT Work Phone: [facility] 07-01-2019 influenza, high dose seasonal, preservative-free Yesy Marci OT Work Phone: [facility] 06-25-2019 pneumococcal polysac charide vaccine, 23 valent Yesy Marci OT Work Phone: [facility] 07-06-2018 influenza, injectabl e, quadrivalent, contains preservative Yesy Marci OT Work Phone: [facility] 06-04-2018 tetanus toxoid, redu karen diphtheria toxoid, and acellular pertussis vaccine, adsorbed Yesy Marci OT Work Phone: [facility] 08-19-2017 influenza, injectabl e, quadrivalent, preservative free Yesy Marci OT Work Phone: [facility] 08-09-2017 influenza, injectabl e, quadrivalent, contains preservative Yesy Marci OT Work Phone: [facility] 08-01-2016 influenza, injectabl e, quadrivalent, preservative free Yesy Marci OT Work Phone: [facility] 07-11-2015 influenza, injectabl e, madin christal canine kidney, preservative free Yesy Marci OT Work Phone: [facility] 07-11-2015 pneumococcal conjuga te vaccine, 13 valent Yesy Marci OT Work Phone: [facility] 08-13-2009 novel influenza-H1N1 -09, preservative-free, injectable Yesy Covarrubias OT Work Phone: [facility] 07-17-2009 influenza virus vacc ine, unspecified formulation Yesy Covarrubias OT Work Phone: [facility] 08-15-2008 influenza virus vacc ine, unspecified formulation Yesy Covarrubias OT Work Phone: [facility] Payers Date Payer Category Payer Self-pay [id number] 2018 Unknown [id number] [id number] 2013 Medicare [id number]. 1.13.56.2.7.3.67 [id number] 1959 [facility] Shield [id number] 2.16.840.1.364097.19 1959 Medicare [id number] 2.16.840.1.302615.19 1959 Unknown [id number] 2.16.840.1.007230.3.579.2.593 1959 Unknown [id number] 2.16.840.1.766558.3.579.2.59 1959 Unknown [id number] 2.16.840.1.612929.3.579.2.593 1959 Unknown [id number] 2.16.840.1.336635.3.579.2.59 1959 Unknown [id number] 2.16.840.1.561112.3.579.2.593 1959 Unknown [id number] 2.16.840.1.351209.3.579.2.59 1959 Unknown [id number] 2.16.840.1.515484.3.579.2.593 1959 Unknown [id number] 2.16.840.1.557431.3.579.2.593 1959 Unknown [id number] 2.16.840.1.685517.3.579.2.593 1959 Unknown [id number] 2.16.840.1.304723.3.579.2.593 1959 Unknown [id number] 2.16.840.1.795414.3.579.2.593 1959 Unknown [id number] 2.16.840.1.694836.3.579.2.593 1959 Unknown [id number] 2.16.840.1.283364.3.579.2.593 1959 Unknown [id number] 2.16.840.1.530053.3.579.2.593 1959 Unknown [id number] 2.16.840.1.528196.3.579.2.593 1959 Unknown [id number] 2.16.840.1.694946.3.579.2.593 1959 Unknown [id number] 2.16.840.1.388524.3.579.2.593 1959 Unknown [id number] 2.16.840.1.596261.3.579.2.593 1959 Unknown [id number] 2.16.840.1.238014.3.579.2.593 1959 Unknown [id number] 2.16.840.1.366233.3.579.2.593 1959 Unknown [id number] 2.16.840.1.605116.3.579.2.732 1959 Unknown [id number] 2.16.840.1.892557.3.579.2.732 1959 Unknown [id number] 2.16.840.1.223340.3.579.2.732 1959 Unknown [id number] 2.16.840.1.635087.3.579.2.196 1959 Unknown [id number] 2.16.840.1.572063.3.579.2.196 1959 Unknown [id number] 2.16.840.1.012891.3.579.2.196 1959 Unknown [id number] 2.16.840.1.360509.3.579.2.196 1959 Unknown [id number] 2.16.840.1.687892.3.579.2.196 1959 Unknown [id number] 2.16.840.1.984815.3.579.2.196 1959 Unknown [id number] 2.16.840.1.265432.3.579.2.196 1959 Unknown [id number] 2.16.840.1.667502.3.579.2.196 1959 Unknown [id number] 2.16.840.1.553822.3.579.2.1286 1959 Unknown [id number] 2.16.840.1.650273.3.579.2.1286 Medicare Medicare Nonpatient [id number] [id number] Unknown [id number] 2.16.840.1.623600.3.579.2.531 Unknown [id number] 2.16.840.1.846288.3.579.2.531 Social History Date Type Detail Facility Unknown if ever smoked [facility] Other Sex Assigned At [facility] Other Start: 11-18-2018 End: 05-31-2019 Tobacco smoking status NHIS Ex-smoker [facility] History of tobacco use Current smoker [facility] Start: 05-31-2019 Tobacco use and exposure Smokeless tobacco non-user [facility] Start: 04-07-2020 Alcohol intake Lifetime non-d han (finding) [facility] Start: 07-09-2019 History SDOH Alcohol Frequency 1 [facility] Start: 1960 Sex Assigned At Not on file [facility] Start: 1960 Sex Assigned At Female [facility] Medical Equipment Procedure Code Equipment Code Equipment Origin al Text Equipment Identifier 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 Patient Office Note or Post OP Note Name:Madan Perry Date: 08/25/2023 CC: left wrist pain at [facility] area No chief complaint on file. [...] of this patient. Aliza Aguilar MD Injection Procedure.[facility] 08/25/2023 [id number] Madan Perry The patient requested an injection [...] a dressing applied. documented in this encounter [facility] 06-16-2023 Note Addended by: ALIZA AGUILAR on: 06/16/2023 11:34 AM Modules accepted: Orders [facility] 06-16-2023 Miscellaneous Notes Addended by: ALIZA AGUILAR on: 06/16/2023 11:34 AM Modules accepted: Orders documented in this encounter [facility] 06-16-2023 History of Presen t illness Narrative [...] continues on coumadin. documented in this encounter [facility] 05-09-2022 Evaluation note Encounter Date Diagnosis Assessment [...] Xray that was ordered outpatient by PCP [facility] 08-10-2022 NotePROCEDURE: XR FOOT RT MIN 3 VIEWS COMPARISON: None. HISTORY: Pain in right foot FINDINGS: BONES:No fracture, acute abnormality, or significant arthropathy. Mild enthesopathic spurring of the calcaneus at the Achilles insertion SOFT TISSUES:Negative. No visible soft tissue swelling. EFFUSION:None visible. OTHER: Negative. IMPRESSION: No acute abnormality Electronically authenticated by: MARTINEZ HARVEY Date: 2022-05-04 16:22[facility]10-27-2021 Evaluation note* Encounter Date Diagnosis Assessment Notes Treatment Notes Treatment Clinical Notes Jun, Swelling of left elbow (ICD-10 - M25.422) Jun, Other Patient refe rred to the ER due to swelling, ecchymosis, pain of her left elbow with no known injury. It is felt the patient needs blood work to evaluate [facility] Other 09-28-2021 Evaluation note* Encounter Date Diagnosis Assessment Notes Treatment Notes Treatment Clinical Notes May, Bee sting, undetermined intent, initial encounter (ICD-10 - T63.444A) May continue Xyzal and Benadryl as directed. [facility] Other Evaluation note* Diagnosis Left hand pain- Primary Pain in limb Left hand pain Pain in limb [facility] Left hand pain Pain in limb [facility]: Evaluation note* Diagnosis [...] second t roseann Hospitalization History see above [facility] Other Summary Purpose Family History No Family History Records Found Relationship Condition Age at Onset Recorded Date/T roseann father Unknown Hypertension Unknown Heart disease Unknown Not Specified Heart disease Unknown Unknown Malignant neoplasm Unknown Advance Directives No Advanced Directives Records Found Advance Directive Response Recorded Date/ Time Advance Directives No February 15 8 10:24am Reason for Referral Specialty Diagnoses / Procedures Referred By Randi cardona Referred To Contact Radiology Diagnoses Left hand pain Aliza Aguilar MD [facility] [place] [address] Referral ID Status Reason Start Date Expiration Date Visits Requested Visits Authorized [id number] Authorized Patient Preference 06/16/2023 06/16/2024 3 3 Comments Near home, [place], [place] Specialty Diagnoses / Procedures Referred By Randi cardona Referred To Contact Radiology Diagnoses Left hand pain Procedures MR WRIST LEFT W/O Aliza Aguilar MD [address] [place] [address] [facility] MRI [address] [place] [address] Referral ID Status Reason Start Date Expiration Date V isits Requested Visits Authorized [id number] Authorized 06/16/2023 06/15/2024 1 1 Specialty Diagnoses / Procedures Referred By Randi t Referred To Contact Radiology Diagnoses Left hand pain Procedures XR HAND LEFT 3 VIEWS [facility] [address] [place], [place] [id number] [facility] DIAGNOSTIC RADIOLOGY [address] [place] [address] [place] [address] Referral ID Status Reason Start Date Expiration Date Visits Re quested Visits Authorized [id number] Closed 06/16/2023 06/15/2024 1 1 Chief Complaint and Reason for Visit Chief Complaint median nerve karel krista Chief Complaint Unknown Additional Source Comments INFORMATION SOURCE (unrecogn ized section and content) DATE CREATED AUTHOR 05/27/2021 [facility] DATE CREATED AUTHOR AUTHOR'S ORGANIZ ATION 03/03/2023 [facility] DATE CREATED AUTHOR AUTHOR'S ORGANIZ ATION 08/28/2023 [facility] DATE CREATED AUTHOR AUTHOR'S ORGANIZ ATION 12/23/2023 [facility] DATE CREATED AUTHOR AUTHOR'S ORGANIZ ATION 02/01/2024 [facility] DATE CREATED AUTHOR AUTHOR'S ORGANIZ ATION 02/29/2024 [facility] DATE CREATED AUTHOR AUTHOR'S ORGANIZ ATION 03/16/2024 [facility] REASON FOR VISIT (unrecogniz ed section and content) Reason Comments Hand/finger symptoms Specialty Diagnoses / Procedures Referred By Randi t Referred To Contact Radiology Diagnoses Left hand pain Procedures XR HAND LEFT 3 VIEWS [facility] [address] [place] [address] [facility] DIAGNOSTIC RADIOLOGY [address] [place] [address] [place] [id number] Referral ID Status Reason Start Date Expiration Date Visits Re quested Visits Authorized [id number] Closed 06/16/2023 06/15/2024 1 1 Reason Comments Hand/finger symptoms Care Teams (unrecognized sec tion and content) 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 Specialty Start Date End Date Yesy Covarrubias OT [address] [place] [address] Occupational Therapist Occupational Therapy 06/30/20 Aliza Aguilar MD [address] [place] [phone] Physician Orthopa[facility] 06/30/20 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 Specialty Start Date End Date Yesy Covarrubias OT [address] [place] [address] [place] [address] Occupational Therapist Occupational Therapy 06/30/20 Aliza Aguilar MD [address] [place] [phone] Physician Orthopaedic Hand [facility] 06/30/20 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 Specialty Start Date End Date Yesy Covarrubias OT [address] [place] [address] Occupational Therapist Occupational Therapy 06/30/20 Aliza Aguilar MD [address] [place] [address] Physician Orthopaedic Hand Service 06/30/20 Team Status: Active Member Role Status Dates [place] DO Primary Care Provider Active Team Status: Inactive Member Role Status Dates [place] DO Primary Care Provider Active Aliza Aguilar Attending Provider Active 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 Specialty Start Date End Date Yesy Covarrubias OT [address] [place] [address] Occupational Therapist Occupational Therapy 06/30/20 Aliza Aguilar MD [address] [place] [address] Physician Orthopaedic Hand [facility] 06/30/20 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 Specialty Start Date End Date Yesy Covarrubias OT [address] [facility] [place] [address] Occupational Therapist Occupational Therapy 06/30/20 Aliza Aguilar MD [address] [facility] [place] [address] Physician Orthopaedic Hand Service 06/30/20 Team Status: Inactive Member Role Status Dates [place] DO Primary Care Provider Active Start: February 28, 2024 End: February 28, 2024 Aliza Spencer DO Attending Provider Active Start: February 28, 2024 End: February 28, 2024 Goals (unrecognized section and content) Goals may [...] BE BASED ON THE PRIMARY CLINICAL RECORDS. [employer] provides no warranty or guarantee of the accuracy or completeness of information in this document.
[2024-05-07 12:12] LABS: Estimated Average Glucose 131 mg/dL; Glycohemoglobin A1C 6.2 % (4.5-6.2)
[2024-05-07 12:16] LABS: Percent Iron Saturation 4.2 %
[2024-05-07 12:28] LABS: Alanine Aminotransferase 25 U/L (14-59); Albumin Globulin Ratio 0.8; Albumin Level 3.2 g/dL (3.4-5.0); Alkaline Phosphatase 109 U/L (46-116); Anion Gap 12.9; Aspartate Amino Transferase 25 U/L (15-37); BUN Creatinine Ratio 9.3; Bilirubin Total 0.3 mg/dL (0.2-1.0); Carbon Dioxide 25.9 mmol/L (21.0-32.0); Chloride 91 mmol/L (98-107); Chol HDL Ratio 1.6; Cholesterol 186 mg/dL (<=200); Estimated GFR (African America >60 (>=60); Estimated GFR (Non-African Ame 51 (>=60); Free T3 2.39 pg/mL (2.18-3.98); Glucose 107 mg/dL (74-106); HDL Cholesterol 115 mg/dL (40-60); Magnesium 1.9 mg/dL (1.8-2.4); Sodium 127 mmol/L (136-145); Thyroid Stimulating Hormone 5.207 uIU/mL (0.358-3.740); Total Protein 7.2 g/dL (6.4-8.2); Triglycerides 76 mg/dL (<=150); VLDL CHOLESTEROL 15.2 mg/dL
[2024-05-07 13:04] LABS: Free T4 1.57 ng/dL (0.76-1.46)
[2024-05-07 14:03] LABS: Potassium 2.8 mmol/L (3.5-5.1)
[2024-05-07 16:14] LABS: Microalbum Creatinine Ratio Ur 13.5 mg/g (0.0-29.9); Microalbumin Urine Random <1.3 mg/dL (<=30.0)
[2024-05-08 11:10] LABS: ANA Direct Negative (Negative)
== END 2024-05-07 10:31 | disposition home or self-care (01) ==
LOC: LAB 10:33
PROVIDERS: PCP Family Medicine; Visit Provider Family Medicine
DX: R53.82 Chronic fatigue, unspecified (principal); E78.00 Pure hypercholesterolemia, unspecified; R73.03 Prediabetes; I10 Essential (primary) hypertension; I73.00 Raynaud's syndrome without gangrene
CPT/HCPCS: 36415; 80053; 80061; 82043; 82570; 82607; 82728; 82746; 83036; 83540; 83550; 83735; 84439; 84443; 84481; 86038

== ENCOUNTER 2024-05-13 07:02 | Day surgery (SDC) | payer BC, MEDICARE, SELFPAY ==
--- OUTSIDE RECORDS SUMMARY | 2024-05-13 07:05 | XMS_ITS | CCD ---
Author Organization [facility] CliniSyil Care Team Providers Care Inspector Rag Sorting Name Role Phone Adilia Mederos Unavailable Lilian Ferreira Unavailable Yesy Covarrubias OT Unavailable Aliza Aguilar MD Unavailable [phone], DR TANK Aguillon Primary Care [...] LAKE, DR TANK Aguillon Primary Care Unavailable LAEK, DR TANK Aguillon Admitting Unavailable FAWWAD, DUARTE [...] Lake, DO Tank A Primary Care Provider [phone] DO Aliza Spencer Attending Provider Aliza Spencer Admitting Unavailable Aliza Spencer Attending [...] Acetaminophen / oxyCODONE Drug Allergy stomach upset [employer] Other (3 sources) Adhesive Tape Propensity to adverse reactions rash [employer] [facility] Other (4 sources) Cephalexin; Translations: [CEPHALEXIN] Drug Allergy 12-22-19 anaphylaxis [facility] (10 sources) Erythromycin; Translations: [ERYTHROMYCIN] Drug Allergy 12-22-19 06 Other [facility] Iodine; Translations: [iodine] Drug Allergy 01-31-20 13 rash [facility] (5 sources) Latex; Translations: [LATEX] Propensity to adverse reactions 12-22-19 06 rash [facility] (5 sources) Penicillin G Benzathine; Translations: [penicillin G benzathine] Drug allergy 12-11-19 23 anaphylaxis [facility] (3 sources) Procaine Drug Allergy headaches [employer] [facility] Other (2 sources) Cephalexin; Translations: [Keflex] Drug Allergy 01-31-20 13 anaphylaxis [facility] (1 source) Novocain Drug allergy Unknown [employer] Other (8 sources) Acetaminophen; Translations: [ACETAMINOPHEN] Drug [...] reactions to drug 12-22-19 06 [facility] (7 sources) Quinolones (Antibiotic); Translations: [QUINOLONES] [...] adverse reactions to drug 07-22-20 19 Agitation [facility] Work Phone: (1 source) Ciprofloxacin Drug Allergy [facility] (1 source) Iodine (And Iodine Containting Drugs) Drug allergy (disorder) 01-31-20 13 [facility] (1 source) Latex Drug allergy (disorder) 01-31-20 13 [facility] (3 sources) Morphine; Translations: [MORPHINE] Drug Allergy 10-21-19 14 vomiting [facility] (1 source) Penicillins Drug allergy (disorder) 01-31-20 13 [facility] (1 source) Sulfonamides (Antibiotic) Drug allergy (disorder) 01-31-20 13 [facility] (1 source) Darvocet-N 100 Drug allergy (disorder) 01-31-20 13 [facility] (1 source) E.E.S. Drug allergy (disorder) 01-31-20 13 [facility] (2 sources) Adhesive Tape; Translations: [adhesive tape] Allergy to substance 12-11-19 rash [facility] (2 sources) oxyCODONE; Translations: [oxycodone] Drug Allergy 12-11-19 stomach upset [facility] (2 sources) Procaine; Translations: [procaine] Drug Allergy 12-11-19 headaches [facility] (1 source) Cephalexin Drug Allergy 12-11-19 [facility] (1 source) Doxycycline Drug Allergy 12-11-19 [facility] (1 source) Latex Drug allergy (disorder) 12-11-19 [facility] (1 source) Morphine Drug Allergy 12-11-19 [facility] (1 source) Adhesive agent; Translations: [...] sources) Barbiturate, Central Nervous System Stimulant, Methylxanthine Wuhtekeqie-BTSP-Ee ffeine 50-300-40 MG CAPS Take by mouth daily as needed. 0 Active take 1 capsule by mo uth every four hours Luhycxsvca-KHME-Dcjmcmjz 50-325-40 MG 1 capsule as needed Orally every 4 hrs Not-Taking Fioricet Active acetaminophen 325 mg / HYDROcodone bitartrate 5 mg oral tablet (10 sources) Opioid Agonist take 1 tablet by mouth once hydrocodone-acetaminophen (NORCO) 5-325 mg per tablet Take 1 Tablet by mouth. 0 Active HYDROcodone-Acet aminophen 7.5-300 MG Orally Not-Taking [place] Active acyclovir 400 mg oral tablet (8 [...] by mouth daily. Followed in coumadin clinic [place], [place] 0 Active take 1 tablet by [...] 4 mg/0.1 mL nasal liquid Instill 1 [place] into one nostril (alternate sides) as needed. [...] Onset: 01-21-2023 Episodic Other aftercare (1 source) prison (current) use of anticoagulants; Translations: [NEWSPAPER REPORTER CURRNT USE ANTICOAGULANTS] Onset: 02-22-2023 Episodic Other [...] Test Name Value Interpretation Reference Range Facility [facility] 02-28-2024 L Specimen: [id number] Received: 02/28/24 Status: DUDLEY Powell Num: [id number] Spec Type: Surgical Subm Dr: Aliza Spencer DO Tissues: A Stomach - Biopsy/Polyp (ANTRUM BX) B Stomach - Biopsy/Polyp (BX FUNDAL GLAND POLYP) C Esophagus Biopsy (DISTAL ESOPH BX) D Esophagus Biopsy (UPPER ESOPH BX) Procedures: HE/8, Gross/Micro L4/4 Age/ Patient Sex Location Account Attending Physician Madan Perry 64/F LABELL [id number] Aliza Spencer DO SPEC NUM: [id number] RECD: 02/28/24 STATUS: DUDLEY POWELL NUM: [id number] SUNSHINE: 02/28/[address]: Aliza Spencre DO ENTERED: 02/28/[address]: Reece,Lab SPEC [...] tissue fragment, entirely submitted in B1. Specimen: [id number] Received: 02/28/24 Status: DUDLEY Olivermedhat Num: [id number] Spec Type: Surgical Subm Dr: Aliza Spencer, Tissues: A Stomach - Biopsy/Polyp (ANTRUM BX) B Stomach - Biopsy/Polyp (BX FUNDAL GLAND POLYP) C Esophagus Biopsy (DISTAL ESOPH BX) D Esophagus Biopsy (UPPER ESOPH BX) Procedures: SABAS Gross/Micro L4/4 Patient: Madan Perry [id number] (Continued) Specimen: [id number] Received: 02/28/24 (Continued) Gross Description (Continued) Signed (signature on file) Steven Ruvalcaba MD 02/29/24 1501 Specimen: [id number] Received: 02/28/24 Status: DUDLEY Powell Num: [id number] Spec Type: Surgical Subm Dr: Aliza Spencer DO Tissues: A Stomach - Biopsy/Polyp (ANTRUM BX) B Stomach - Biopsy/Polyp (BX FUNDAL GLAND POLYP) C Esophagus Biopsy (DISTAL ESOPH BX) D Esophagus Biopsy (UPPER ESOPH BX) Procedures: Halina OBREGON/Alta L4/4 Patient: Madan Perry [id number] (Continued) Specimen: [id number] Received: 02/28/24 (Continued) Gross Description (Continued) C. Further labeled distal esophagus BX are 2 jiménez mucosal tissue fragments measuring 0.3 x 0.2 x 0.1 cm and 0.2 x 0.2 x 0.1 cm, entirely submitted in C1. D. Further labeled upper esophagus BX are 2 jiménez mucosal tissue fragments each measuring 0.2 x 0.1 x 0.1 cm, entirely submitted in D1. CPT Codes 42774r2 Specimen: [id number] Received: 02/28/24 Status: DUDLEY Powell Num: [id number] Spec Type: Surgical Subm Dr: Aliza Spencer DO Tissues: A Stomach - Biopsy/Polyp (ANTRUM BX) B Stomach - Biopsy/Polyp (BX FUNDAL GLAND POLYP) C Esophagus Biopsy (DISTAL ESOPH BX) D Esophagus Biopsy (UPPER ESOPH BX) Procedures: WILEY/Ratna, Gross/Micro L4/4 Patient: Madan Perry [id number] (Continued) Signed (signature on file) Steven Ruvalcaba MD 02/29/24 1501 Normal [facility] URINE CULTUREon 12-23-2023 Bacteria identified Cx Nom (U) FINAL Normal (. - .) [facility] Comment on above: Order Comment: MS CC FACILITY: [facility] [id number] Result Comment: HUA N CATCH MID-STREAM URINE > 10,000 BUT < 100,000 CFU/ML RESEMBLES A CONTAMINATED URINE COLLECTION Performed By: #### C -UR #### [facility] [address] [facility], [address] BASIC MET PANEL W/GFRon 12-0 Calcium [Mass/Vol] 9.2 mg/dL Normal (8.6 - 10.6) [facility] Comment on above: Order Comment: FACIL ITY: [facility] [id number] Performed By: #### C HEM-B #### [facility] [address] [facility], [address] Chloride [Moles/Vol] 99 mmol/L Normal (98 - 107) [facility] Comment on above: Order Comment: FACIL ITY: [facility] [id number] Performed By: #### C HEM-B #### [facility] [address] [facility], [address] CO2 [Moles/Vol] 27 mmol/L Normal (22 - 30) [facility] Comment on above: Order Comment: FACIL ITY: [facility] [id number] Performed By: #### C HEM-B #### [facility] [address] [place], [address] Creatinine [Mass/Vol] 0.74 mg/dL Normal (0.52 - 1.04) [facility] Comment on above: Order Comment: FACIL ITY: [facility] [id number] Performed By: #### C HEM-B #### [facility] [address] [place], [address] GFR- AMER 95.6 ML/M1.7 Normal (60.0 - 140.1) [facility] Comment on above: Order Comment: FACIL ITY: [facility] [id number] Performed By: #### C HEM-B #### [facility] [address] [place], [address] GFR-NON AFRIC-AMER 79.0 ML/M1.7 Normal (60.0 - 115.8) [facility] Comment on above: Order Comment: FACIL ITY: [facility] [id number] Performed By: #### C HEM-B #### [facility] [address] [place], [address] Glucose [Mass/Vol] 100 mg/dL Normal (74 - 106) [facility] Comment on above: Order Comment: FACIL ITY: [facility] [id number] Performed By: #### C HEM-B #### [facility] [address] [place], [address] Potassium [Moles/Vol] 4.6 mmol/L Normal (3.5 - 5.1) [facility] Comment on above: Order Comment: FACIL ITY: [facility] [id number] Performed By: #### C HEM-B #### [facility] [address] [place], [address] Sodium [Moles/Vol] 136 mmol/L Low (137 - 145) [facility] Comment on above: Order Comment: FACIL ITY: [facility] [id number] Performed By: #### C HEM-B #### [facility] [address] [facility], [address] Urea nitrogen [Mass/Vol] 11 mg/dL Normal (7 - 17) [facility] Comment on above: Order Comment: FACIL ITY: [facility] [id number] Performed By: #### C HEM-B #### [facility] [address] [facility], [address] Progress Noteson 08-25-2023 Catering Manager Authentication Interface Message Text CC: Left hand and wrist pain Follow up after MRI done at [facility]. Normal [facility] [employer] Catering Manager Authentication Interface Message Text Patient Office [...] of this patient. Aliza Aguilar MD Injection Procedure.[facility] 08/25/2023 [id number] Madan Perry The patient requested an injection [...] conon 023 MR wrist LT wo con [facility] Main [place] [id number] MRI Report Signed Patient: Madan Perry MR#: [id number] : 1960 Acct:[id number] Age/Sex: 63 / F ADM Date: 07/20/23 Loc: [facility] Room: Type: [facility] Attending Dr: Aliza Aguilar Copies to: Aliza Aguilar Ordering Provider: Aliza Aguilar Date of Service: 07/20/23 MR/MR hand LT wo con: MEDIAN NERVE COMPRESSION ([id number]) MR/MR wrist LT wo con: MEDIAN NERVE COMPRESSION ([id number]) XR/XR pre/post mri xray: MEDIAN NERVE COMPRESSION [...] lunate with capitate collapse. Impression dictated by: oJse Dial M.D.07/21/2023 7:38 PM Dictation Location: [place] [address] Transcribed By: [facility] 07/21/231937 Dictated By: Jose Dial DO 07/20/23 1525 Signed By: 07/21/231937 Normal [facility] Telephone Encounteron 2022 Catering Manager Authentication Interface Message Text Spoke with patient and scheduled. Normal The [employer] Telephone Encounteron 2022 Catering Manager Authentication Interface Message Text Pt called [...] she would need something sooner. Contact pt [phone] Normal [facility] [employer] Addendum Noteon 06-16-2023 Catering Manager Authentication Interface Message Text Addended by: ALIZA AGUILAR on: 06/16/2023 11:34 AM Modules accepted: Orders Normal [facility] [employer] Progress Noteson 06-16-2023 Catering Manager Authentication Interface Message Text Patient Office [...] this patient. Aliza Aguilar MD Normal [facility] [employer] Catering Manager Authentication Interface Message Text CC: Left hand pain Pain Left wrist and hand; tingling to middle and ring fingers. Pt states ganglion which was removed has returned and is painful. CMC joint painful. 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 Normal [facility] [employer] XR HAND LEFT 3 VIEWSon 06-16 [...] findings. Left hand MACRO: None Normal [facility] XR Hand - left 3 Viewson [...] with the findings. Left hand MACRO: None [facility] Study observation (narrative) [facility] XR Hand - left 3 ViewsOrdere d By: Alberto Llanes on 06-16-2023 [employer] Work Phone: US DARNELL DOP LEG BILon [...] [place] Date: 2023-01-27 17:22 Normal [facility] CBC AUTO DIFFon 01-12-2023 BASO # 0.1 103/ul Normal 0.0-0.1 [facility] Comment on above: Performed By: #### C BC #### [facility] [address] [place] [address] Dr. Rocio Hernnadez Basophils/100 WBC (Bld) 1.0 % Normal 0.2-2.0 [facility] Comment on above: Performed By: #### C BC #### [facility] [address] [place] [address] Dr. Rocio Hernandez EO # 0.2 103/ul Normal 0.0-0.7 [facility] Comment on above: Performed By: #### C BC #### [facility] [address] [place] [address] Dr. Rocio Hernandez Eosinophils/100 WBC (Bld) 2.9 % Normal 0.9-7.0 [facility] Comment on above: Performed By: #### C BC #### [facility] [address] [place] [address] Dr. Rocio Hernandez Erythrocyte distribution width (RBC) [Ratio] 14.1 % Normal 11.0-15.0 [facility] Comment on above: Performed By: #### C BC #### [facility] [address] [place] [address] Dr. Rocio Hernandez Hematocrit (Bld) [Volume fraction] 41.2 % Normal 36.0-48.0 [facility] Comment on above: Performed By: #### C BC #### [facility] [address] [place] [address] [address] Rocio Hernandez Hemoglobin (Bld) [Mass/Vol] 13.6 g/dL Normal 12.0-16.0 [facility] Comment on above: Performed By: #### C BC #### [facility] [address] [place] [address] Dr. Rocio Hernandez IG # 0.01 10e3/ul Normal 0.00-0.03 [facility] Comment on above: Performed By: #### C BC #### [facility] [address] [place] [address] Dr. Rocio Hernandez IG % 0.2 % Normal 0.0-0.5 [facility] Comment on above: Performed By: #### C BC #### [facility] [address] [place] [address] Dr. Rocio Hernandez LYMPH # 1.3 103/ul Normal 1.2-3.8 [facility] Comment on above: Performed By: #### C BC #### [facility] [address] [place] [address] Dr. Rocio Hernandez Lymphocytes/100 WBC (Bld) 21.9 % Normal 20.5-60.0 [facility] Comment on above: Performed By: #### C BC #### [facility] [address] [place] [address] Dr. Rocio Hernandez MANUAL DIFF REQ NO Normal [facility] Comment on above: Performed By: #### C BC #### [facility] [address] [place] [address] Dr. Rocio Hernandez MCH (RBC) [Entitic mass] 28.4 pg Normal 26.7-34.0 [facility] Comment on above: Performed By: #### C BC #### [facility] [address] [place] [address] Dr. Rocio Hernandez MCHC (RBC) [Mass/Vol] 33.0 g/dL Normal 29.9-35.2 [facility] Comment on above: Performed By: #### C BC #### [facility] [address] [place] [address] [address] Rocio Hernandez MCV (RBC) [Entitic vol] 86.0 fL Normal 81.0-99.0 [facility] Comment on above: Performed By: #### C BC #### [facility] [address] [place] [address] [address] Rocio Hernandez MONO # 0.6 103/ul Normal 0.3-0.8 [facility] Comment on above: Performed By: #### C BC #### [facility] [address] [place] [address] [address] Rocio Hernandez Monocytes/100 WBC (Bld) 10.3 % Normal 1.7-12.0 [facility] Comment on above: Performed By: #### C BC #### [facility] [address] [place] [address] [address] Rocio Hernandez NEUT # 3.8 103/ul Normal 1.4-6.5 [facility] Comment on above: Performed By: #### C BC #### [facility] [address] [place] [address] [address] Rocio Hernandez Neutrophils/100 WBC (Bld) 63.7 % Normal 43.0-75.0 [facility] Comment on above: Performed By: #### C BC #### [facility] [address] [place] [address] [address] Rocio Hernandez Platelet mean volume (Bld) [Entitic vol] 9.0 fL Critically low 9.5-13.5 [facility] Comment on above: Performed By: #### C BC #### [facility] [address] [place] [address] [address] Rocio Hernandez PLT 360 103/ul Normal 150-450 [facility] Comment on above: Performed By: #### C BC #### [facility] [address] [place] [address] [address] Rocio Hernandez RBC 4.79 106/ul Normal 4.20-5.40 [facility] Comment on above: Performed By: #### C BC #### [facility] [address] [place] [address] [address] Rocio Hernandez WBC 5.9 103/ul Normal 4.0-11.0 [facility] Comment on above: Performed By: #### C BC #### [facility] [address] [place] [address] [address] Rocio Hernandez FREE T3on 01-12-2023 FREE T3 2.31 pg/mlL Normal 2.18-3.98 [facility] Comment on above: Performed By: #### T SH, CMP, LIPID, FT3 ####[facility] [address] [place] [address]Dr. Rocio Hernandez FREE T4on 01-12-2023 Free T4 [Mass/Vol] 1.21 ng/dL Normal 0.76-1.46 [facility] Comment on above: Performed By: #### B 12FOL, FT4 #### [facility] [address] [place] [address] [address] Rocio Hernandez GLYCOHEMOGLOBIN A1Con 2022 ADA RECOMMENDATION SEE BELOW Normal [facility] Comment on above: Result Comment: ADA RECOMMENDED LIMIT 4.0 - 6.0 ADA THERAPEUTIC TARGET < 7.0 ACTION SUGGESTED > 7.0 Performed By: #### A 1C ####[facility] [address] [place] [address]DrClem Hernandez Glucose [Mass/Vol] 123 mg/dL Normal [facility] Comment on above: Performed By: #### A 1C ####[facility] [address] [place] [address]DrClem Hernandez HbA1c (Bld) [Mass fraction] 5.9 % Normal 4.5-6.2 [facility] Comment on above: Performed By: #### A 1C ####[facility] [address] [place] [address]Dr. Rocio Hernandez LIPID PROFILEon 01-12-2023 CHOL-HDL RATIO NORM SEE BELOW Normal [facility] Comment on above: Result Comment: 3.3 - 4.4 LOW RISK 4.4 - 7.1 AVERAGE RISK 7.1 - 11.0 MODERATE RISK >11.0 HIGH RISK Performed By: #### T SH, CMP, LIPID, FT3 #### [facility] [address] [place] [address] [address] Rocio Hernandez Cholesterol [Mass/Vol] 203 mg/dL Critically high <=200 [facility] Comment on above: Performed By: #### T SH, CMP, LIPID, FT3 #### [facility] [address] [place] [address] [address] Rocio Hernandez Cholesterol in HDL [Mass/Vol] 89 mg/dL Critically high 40-60 [facility] Comment on above: Performed By: #### T SH, CMP, LIPID, FT3 #### [facility] [address] [place] [address] [address] Rocio Hernandez Cholesterol in LDL [Mass/Vol] 87.8 mg/dL Normal [facility] Comment on above: Performed By: #### T SH, CMP, LIPID, FT3 #### [facility] [address] [place] [address] Dr. Rocio Hernandez Cholesterol.total/C holesterol in HDL [Mass ratio] 2.3 {ratio} Normal [facility] Comment on above: Performed By: #### T SH, CMP, LIPID, FT3 #### [facility] [address] [place] [address] [address] Rocio Hernandez HDL NORMAL > or = 60 mg/dl - LO W CARDIOVASCULAR RISK <40 mg/dl - HIGH CARDIOVASCULAR RISK Normal [facility] Comment on above: Performed By: #### T SH, CMP, LIPID, FT3 #### [facility] [address] [place] [address] Dr. Rocio Hernandez LDL CALC NORMAL SEE BELOW Normal [facility] Comment on above: Result Comment: <100 mg/dl OPTIMAL 100 - 129 mg/dl NEAR OR ABOVE OPTIMAL 130 - 159 mg/dl BORDERLINE HIGH 160 - 189 mg/dl HIGH >190 mg/dl VERY HIGH Performed By: #### T SH, CMP, LIPID, FT3 #### [facility] [address] [place] [address] [address] Rocio Hernandez Triglyceride [Mass/Vol] 131 mg/dL Normal <=150 [facility] Comment on above: Performed By: #### T SH, CMP, LIPID, FT3 #### [facility] [address] [place] [address] [address] Rocio Hernandez VLDL CALC 26.2 mg/dL Normal [facility] Comment on above: Performed By: #### T SH, CMP, LIPID, FT3 #### [facility] [address] [place] [address] [address] Rocio Hernandez MICROALB CREAT RATIO RANDOMo n 01-12-2023 mALB <1.3 Normal <=30.0 [facility] Comment on above: Performed By: #### M CRR ####[facility] [address] [place] [address]DrClem Hernandez MALB CR RATIO 13.6 mg/g Normal 0.0-29.9 [facility] Comment on above: Performed By: #### M CRR ####[facility] [address] [place] [address]Dr. Rocio Hernandez MALB CR RATIO RANGE SEE BELOW Normal [facility] Comment on above: Result Comment: NO M ICROALBUMINURIA 0-29 MG/G CLINICAL MICROALBUMINURIA 30-300 MG/G MACROALBUMINURIA >300 MG/G Performed By: #### M CRR ####[facility] [address] [place] [id number]. Rocio Hernandez URINE CREAT 95.84 mg/dL Normal 20.00-300.[address] [facility] Comment on above: Performed By: #### M CRR ####[facility] [address] [place] [address]Dr. Rocio Hernandez PROF 14(COMP METB)on 023 Albumin [Mass/Vol] 3.8 g/dL Normal 3.4-5.0 [facility] Comment on above: Performed By: #### T SH, CMP, LIPID, FT3 #### [facility] [address] [place] [address] [address] Rocio Hernandez Albumin/Globulin [Mass ratio] 0.9 {ratio} Normal [facility] Comment on above: Performed By: #### T SH, CMP, LIPID, FT3 #### [facility] [address] [place] [address] [address] Rocio Hernandez ALP [Catalytic activity/Vol] 111 U/L Normal 46-116 [facility] Comment on above: Performed By: #### T SH, CMP, LIPID, FT3 #### [facility] [address] [place] [address] [address] Rocio Hernandez ALT [Catalytic activity/Vol] 42 U/L Normal 14-59 [facility] Comment on above: Performed By: #### T SH, CMP, LIPID, FT3 #### [facility] [address] [place] [address] [address] Rocio Hernandez Anion gap [Moles/Vol] 10.8 mmol/L Normal [facility] Comment on above: Performed By: #### T SH, CMP, LIPID, FT3 #### [facility] [address] [place] [address] Dr. Rocio Hernandez AST [Catalytic activity/Vol] 24 U/L Normal 15-37 [facility] Comment on above: Performed By: #### T SH, CMP, LIPID, FT3 #### [facility] [address] [place] [address] Dr. Rocio Hernandez Bilirubin [Mass/Vol] 0.4 mg/dL Normal 0.2-1.0 [facility] Comment on above: Performed By: #### T SH, CMP, LIPID, FT3 #### [facility] [address] [place] [address] [address] Rocio Hernandez Calcium [Mass/Vol] 9.6 mg/dL Normal 8.5-10.1 [facility] Comment on above: Performed By: #### T SH, CMP, LIPID, FT3 #### [facility] [address] [place] [address] Dr. Rocio Hernandez Chloride [Moles/Vol] 93 mmol/L Critically low 98-107 [facility] Comment on above: Performed By: #### T SH, CMP, LIPID, FT3 #### [facility] [address] [place] [address] Dr. Rocio Hernandez CO2 [Moles/Vol] 31.2 mmol/L Normal 21.0-32.0 [facility] Comment on above: Performed By: #### T SH, CMP, LIPID, FT3 #### [facility] [address] [address] [address] Rocio Hernandez Creatinine [Mass/Vol] 1.02 mg/dL Normal 0.55-1.02 [facility] Comment on above: Performed By: #### T SH, CMP, LIPID, FT3 #### [facility] [address] [address] [address] Rocio Hernandez EGFR-AF SOMALI >60 Normal >=60 [facility] Comment on above: Performed By: #### T SH, CMP, LIPID, FT3 #### [facility] [address] [place] [address] Dr. Rocio Hernandez EGFR-NON AF SOMALI 55 mL/min/1.73m2 Critically low >=60 [facility] Comment on above: Performed By: #### T SH, CMP, LIPID, FT3 #### [facility] [address] [address] [address] Rocio Hernandez Globulin (S) [Mass/Vol] 4.4 g/dL Normal [facility] Comment on above: Performed By: #### T SH, CMP, LIPID, FT3 #### [facility] [address] [place] [address] Dr. Rocio Hernandez Glucose [Mass/Vol] 102 mg/dL Normal 74-106 [facility] Comment on above: Performed By: #### T SH, CMP, LIPID, FT3 #### [facility] [address] [address] [address] Rocio Hernandez Potassium [Moles/Vol] 4.0 mmol/L Normal 3.5-5.1 [facility] Comment on above: Performed By: #### T SH, CMP, LIPID, FT3 #### [facility] [address] [address] [address] Rocio Hernandez Protein [Mass/Vol] 8.2 g/dL Normal 6.4-8.2 [facility] Comment on above: Performed By: #### T SH, CMP, LIPID, FT3 #### [facility] [address] [address] [address] Rocio Hernandez Sodium [Moles/Vol] 131 mmol/L Critically low 136-145 [facility] Comment on above: Performed By: #### T SH, CMP, LIPID, FT3 #### [facility] [address] [place] [address] Dr. Rocio Hernandez Urea nitrogen [Mass/Vol] 6.0 mg/dL Critically low 7.0-18.0 [facility] Comment on above: Performed By: #### T SH, CMP, LIPID, FT3 #### [facility] [address] [place] [address] Dr. Rocio Hernandez Urea nitrogen/Creatinine [Mass ratio] 5.9 mg/mg Normal [facility] Comment on above: Performed By: #### T SH, CMP, LIPID, FT3 #### [facility] [address] [place] [address] Dr. Rocio Hernandez TSHon 01-12-2023 TSH 5.647 uIU/mL Critically high 0.358-3.740 [facility] Comment on above: Performed By: #### T SH, CMP, LIPID, FT3 #### [facility] [address] [place] [address] Dr. Rocio Hernandez VIT B12 AND FOLATEon 023 Cobalamin (Vitamin B12) [Mass/Vol] 1189.0 pg/mL Critically high 193.0-986.0 [facility] Comment on above: Performed By: #### B 12FOL, FT4 #### [facility] [address] [place] [address] Dr. Rocio Hernandez FOLATE 27.30 ng/mL Normal 8.60-58.90 [facility] Comment on above: Performed By: #### B 12FOL, FT4 #### [facility] [address] [place] [address] Dr. Rocio Hernandez MG MAMM SCREEN 3D TANIA CADon 12-19-2022 MG MAMM SCREEN 3D TANIA CAD Patient: MADAN PERRY Exam Date: 12/19/2022 : 1960 Gender:F Ordering : DR [place] D.O. Admission #: [id number] Family : Order #: [id number] CLICK HERE TO VIEW EXAM RADIOLOGY REPORT [...] ovarian cancer at age 54. LOCATION: [facility] BREAST COMPOSITION: Scattered areas fibroglandular [...] M.D. on 12/19/2022 at 11:19 Normal [facility] XR DEXA BONE DENSITYon 12-19 XR [...] by: LIZ FLORES Date: 2022-12-19 10:01 Normal [facility] FREE T3on 03-22-2022 FREE T3 2.43 pg/mlL Normal 2.18-3.98 [facility] Comment on above: Performed By: #### B MP, FT3, TSH ####[facility] [address] [address]Dr. Rocio Hernandez FREE T4on 03-22-2022 Free T4 [Mass/Vol] 1.43 ng/dL Normal 0.76-1.46 [facility] Comment on above: Performed By: #### F T4 ####[facility] [address] [place], [place] [address]Dr. Rocio Hernandez PROF CHEM 8 (BAS METB)on Anion gap [Moles/Vol] 10.2 mmol/L Normal [facility] Comment on above: Performed By: #### B MP, FT3, TSH ####[facility] [address] [address]Dr. Rocio Hernandez Calcium [Mass/Vol] 8.8 mg/dL Normal 8.5-10.1 [facility] Comment on above: Performed By: #### B MP, FT3, TSH ####[facility] [address] [address]Dr. Rocio Hernandez Chloride [Moles/Vol] 104 mmol/L Normal 98-107 [facility] Comment on above: Performed By: #### B MP, FT3, TSH ####[facility] [address] [address]Dr. Rocio Hernandez CO2 [Moles/Vol] 31.7 mmol/L Normal 21.0-32.0 [facility] Comment on above: Performed By: #### B MP, FT3, TSH ####[facility] [address] [address]Dr. Rocio Hernandez Creatinine [Mass/Vol] 0.96 mg/dL Normal 0.55-1.02 [facility] Comment on above: Performed By: #### B MP, FT3, TSH ####[facility] [address] [address]Dr. Rocio Hernandez EGFR-AF SOMALI >60 Normal >=60 [facility] Comment on above: Performed By: #### B MP, FT3, TSH ####[facility] [address] [address]Dr. Rocio Hernandez EGFR-NON AF SOMALI 59 mL/min/1.73m2 Critically low >=60 [facility] Comment on above: Performed By: #### B MP, FT3, TSH ####[facility] [address] [place], [place] [address]Dr. Rocio Hernandez Glucose [Mass/Vol] 110 mg/dL Critically high 74-106 [facility] Comment on above: Performed By: #### B MP, FT3, TSH ####[facility] [address] [place], [place] [address]Dr. Rocio Hernandez Potassium [Moles/Vol] 2.9 mmol/L Critically low 3.5-5.1 [facility] Comment on above: Result Comment: TEST REPEATED CRITICAL VALUE VERIFIED Performed By: #### B MP, FT3, TSH ####[facility] [address] [address]Dr. Rocio Hernandez Sodium [Moles/Vol] 141 mmol/L Normal 136-145 [facility] Comment on above: Performed By: #### B MP, FT3, TSH ####[facility] [address] [place], [place] [address]Dr. Rocio Hernandez Urea nitrogen [Mass/Vol] 12.0 mg/dL Normal 7.0-18.0 [facility] Comment on above: Performed By: #### B MP, FT3, TSH ####[facility] [address] [place], [place] [address]He. Rocio Hernandez Urea nitrogen/Creatinine [Mass ratio] 12.5 mg/mg Normal [facility] Comment on above: Performed By: #### B MP, FT3, TSH ####[facility] [address] [place], [place] [address]Ns. Rocio Hernandez TSHon 03-22-2022 TSH 0.137 uIU/mL Critically low 0.358-3.740 [facility] Comment on above: Performed By: #### B MP, FT3, TSH ####[facility] [address] [place], [place] [address]Qd. Rocio Hernandez Patient Letter FTMCon 2020 Patient Letter FT (Inserted Image. Wilda ble to display) May 26, [address] [facility] [address] [place] [address] MADAN PERRY 1960 Dear Madan, This is a SECOND ATTEMPT to remind you that you are due for an appointment with [facility] [facility] Please contact our office at [phone] to schedule an appointment at your earliest convenience. Thank you, [facility] Reminderson 05-26-2021 Reminders - From: Jane Onofre To: [facility] - Reminders/Recalls; Sent: 01/18/2021 12:33:31 EDT Show up: 04/25/2021 12:33:00 EDT Subject: Ambulatory Reminder Due Date/Time: 06/09/2021 12:33:00 EDT Reminder/Recall sara peace 5 year colon 06/09/2021 first recall letter second rcall letter Normal [facility] Patient Letter FTMCon 2020 Patient Letter FT (Inserted Image. Wilda ble to display) May 05, [address] [facility] [address] [place] [address] MADAN PERRY 1960 Dear Madan, This is a reminder that you are due for an appointment with [facility]. Please contact our office at [phone] to schedule an appointment at your earliest convenience. Thank you, [facility] Normal [facility] Vital Signs Date Time Vital Sign Value Performing Clinician Facility 05-09-2022 16:35-0400 Body height 161.29 cm Adilia Cardenasault Other [facility] Other 05-09-2022 16:35-0400 Body mass index (BMI) [Ratio] 25.63 kg/m2 Adilia Rosa M Other [facility] Other 05-09-2022 16:35-0400 Body temperature 97.8 [degF] Adilia Rosa M Other [facility] Other 05-09-2022 16:35-0400 Body weight 66.68 kg Adilia Rosa M Other [facility] Other 05-09-2022 16:35-0400 Diastolic blood pressure 79 mm[Hg] Adilia Rosa M Other [facility] Other 05-09-2022 16:35-0400 Respiratory rate 18 /min Adilia Rosa M Other [facility] Other 05-09-2022 16:35-0400 SaO2% (BldA) [Mass fraction] 98 % Adilia Rosa M Other [facility] Other 05-09-2022 16:35-0400 Systolic blood pressure 136 mm[Hg] Adilia Mederos Other [facility] Other 07-21-2021 16:05-0400 Body height 161.29 cm Lilian Ferreira Other [facility] Other 07-21-2021 16:05-0400 Body mass index (BMI) [Ratio] 26.5 kg/m2 Lilian Ferreira Other [facility] Other 07-21-2021 16:05-0400 Body temperature 96.2 [degF] Lilian Ferreira Other [facility] Other 07-21-2021 16:05-0400 Body weight 68.95 kg Lilian Ferreira Other [facility] Other 07-21-2021 16:05-0400 Diastolic blood pressure 95 mm[Hg] Lilian Ferreira Other [facility] Other 07-21-2021 16:05-0400 Respiratory rate 18 /min Lilian Ferreira Other [facility] Other 07-21-2021 16:05-0400 SaO2% (BldA) [Mass fraction] 99 % Lilian Ferreira Other [facility] Other 07-21-2021 16:05-0400 Systolic blood pressure 132 mm[Hg] Lilian Ferreira Other [facility] Other 06-22-2021 14:20-0400 Body height 161.29 cm Adilia Cardenasault Other [facility] Other 06-22-2021 14:20-0400 Body mass index (BMI) [Ratio] 25.98 kg/m2 Adilia Rosa M Other [facility] Other 06-22-2021 14:20-0400 Body temperature 96.4 [degF] Adilia Rosa M Other [facility] Other 06-22-2021 14:20-0400 Body weight 67.59 kg Adilia Mederos Other [facility] Other 06-22-2021 14:20-0400 Diastolic blood pressure Adilia Mederos Other [facility] Other 06-22-2021 14:20-0400 Respiratory rate 18 /min Adilia Mederos Other [facility] Other 06-22-2021 14:20-0400 SaO2% (BldA) [Mass fraction] 98 % Adilia Mederos Other [facility] Other 06-22-2021 14:20-0400 Systolic blood pressure 111 mm[Hg] Adilia Mederos Other [facility] Other Encounters Encounter Date Encounter Type Care Provider Facility Start: 03-14-2024 End: 03-14-2024 ambulatory [facility] Start: 02-28-2024 End: 02-28-2024 ambulatory DO [place] Work Phone: [facility] Work Phone: Start: 02-28-2024 End: 02-28-2024 Departed Referred DO [place] Work Phone: [facility] Start: 02-20-2024 End: 02-20-2024 ambulatory [facility] Start: 01-15-2024 End: 01-16-2024 ambulatory Meet Harp MD Facility:[facility] Start: 12-04-2023 End: 12-05-2023 ambulatory Meet Harp MD Facility: [facility] Start: 11-06-2023 End: 11-07-2023 ambulatory Meet Harp MD Facility:[facility] Start: 10-09-2023 End: 10-10-2023 ambulatory Meet Harp MD Facility:[facility] Start: 08-25-2023 End: 08-25-2023 ambulatory ALIZA AGUILAR Facility:[facility] Start: 08-25-2023 End: 08-25-2023 Office outpatient visit 15 minutes Aliza Aguilar MD Work Phone: [facility] Comment on above: Hand arthritis (Prim maurisio Dx) Start: 08-21-2023 End: 08-22-2023 ambulatory Meet Harp MD Facility:[facility] Start: 08-19-2023 Letter encounter Yesy Covarrubias OT Work Phone: [facility] Start: 07-31-2023 End: 08-01-2023 ambulatory Meet Harp MD Facility:[facility] Start: 07-24-2023 End: 07-25-2023 ambulatory Meet Harp MD Facility:[facility] Start: 07-20-2023 End: 07-20-2023 Patient encounter procedure DO [place] Work Phone: [facility]-MRI [address] Work Phone: Start: 07-20-2023 End: 07-20-2023 ambulatory DO [place] Work Phone: [facility] Work Phone: Start: 07-10-2023 End: 07-11-2023 ambulatory Meet Harp MD [facility] Start: 06-16-2023 End: 06-17-2023 ambulatory UNKNOWN PROVIDER [facility] Start: 06-16-2023 End: 06-16-2023 Office outpatient visit 25 minutes Aliza Aguilar MD Work Phone: [facility] Comment on above: Left hand pain (Prim maurisio Dx) Start: 06-16-2023 End: 06-16-2023 Subsequent hospital visit by physician [facility] Op Op X-Ray 1 Work Phone: [facility] Diag Radiology Comment on above: Left hand pain Start: 02-07-2023 End: 02-08-[address] [place] Facility:[facility] Start: 01-27-2023 End: 01-28-[address] [place] Facility:[facility] Start: 01-23-2023 End: 02-22-2023 ambulatory DUARTE H CODY Facility:[facility] Start: 01-16-2023 Encounter for genera l adult medical examination without abnormal findings DR [place] [facility] Start: 01-12-2023 End: 01-13-[address] [place] Facility:[facility] Start: 01-12-2023 End: 01-13-2023 Encounter for general adult medical examination without abnormal findings DR [place] Facility:[facility] Start: 12-26-2022 End: 01-20-2023 ambulatory DUARTE H CODY Facility:[facility] Start: 12-19-2022 End: 12-20-[address] [place] Facility:[facility] Start: 11-23-2022 End: 12-23-2022 ambulatory DUARTE H CLWWAAbdifatah Facility:[facility] Start: 10-26-2022 End: 11-23-2022 ambulatory DUARTE H FAWWAD Facility:[facility] Start: 09-26-2022 End: 10-26-2022 ambulatory DUARTE H FAWWAD Facility:[facility] Start: 08-25-2022 End: 09-25-2022 ambulatory DUARTE H FAWWAD Facility:[facility] Start: 07-26-2022 End: 08-24-2022 ambulatory DUARTE H FAWWAD Facility:[facility] Start: 06-26-2022 End: 07-25-2022 ambulatory DAURTE H FAWWAAbdifatah Facility:[facility] Start: 06-20-2022 End: 06-21-[address] [place] Facility:[facility] Start: 05-26-2022 End: 06-25-2022 ambulatory SHAIKH Eduardo ROSS Facility:[facility] Start: 05-13-2022 Letter encounter Yesy Covarrubias OT [facility] Start: 05-09-2022 End: 05-09-2022 ambulatory Adilia Mederos Other [facility] Other Start: 05-09-2022 Office outpatient vi sit [...] 06-22-2021 Office outpatient vi sit 15 minutes Adiliamichi Mederos [facility] Procedures Date Procedure Procedure Detail Performing Clinician Start: 08-25-2023 Injection 1 tendon sheath/ligament aponeurosis Aliza Aguilar MD Work Phone: Start: 06-16-2023 Radex hand minimum 3 views Aliza Aguilar MD Work Phone: Plan of Treatment Date Care Activity Detail Author Start: 06-04-2028 Tetanus vaccination Tetanus (T d or Tdap) Booster [facility] Start: 01-13-2028 Cholesterol [Mass/volume] in Serum or Plasma Cholesterol [facility] Start: 08-25-2023 End: 08-25-2023 Patient encounter procedure 08/25/2023 11:30 AM EST [facility] [address] [place] [address] C[address] Orthoped[address] [place] [address] Aliza Aguilar MD [address] [place] [place] [address] [facility] Start: 07-20-2023 XR pre/post mri xray XR pre/post mri xray [facility] Start: 07-20-2023 [facility] Start: 07-20-2023 MR Wrist - left WO contrast [facility] Start: 07-20-2023 MRI of left wrist MR wrist LT wo con [facility] Start: 07-20-2023 MR Hand - left WO contrast [facility] Start: 07-20-2023 MRI of left hand MR hand LT wo con [facility] Start: 06-25-2023 Influenza vaccination Influ[facility] Vacc ine (#[facility] Start: 06-16-2023 End: 06-16-2024 MR Wrist - left WO contrast MR WRIST LEFT W/O Imaging Routine Left hand pain Expected: 06/16/2023, Expires: 06/16/2024 [facility] Work Phone: Comment on above: Expected: 06/16/2023 , Expires: 06/16/2024 Start: 05-26-2023 COVID-19 Vaccine (2022- season) COVID-19 Vaccine ( season) [facility] Start: 05-26-2023 Influenza vaccination Influenza Vacc ine [...] Screening for malign ant neoplasm of colon [facility] Start: 1999 Screening for malign ant neoplasm of breast Mammography [facility] Start: 02-11-1980 Screening for malign ant neoplasm of cervix Pap Smear [facility] Start: 1977 Hepatitis C screening Hepatitis C An tibody [facility] Start: 1974 HIV screening HIV Test [facility] Start: 1960 COVID-19 Vaccine ( formulation) COVID-19 Vaccine ( formulation) [facility] Start: 1960 Screening for malign ant neoplasm of colon Colonoscopy [facility] Immunizations Immunization Date Immunization Notes Care Provider [facility] 08-11-2023 influenza, injectabl e, quadrivalent, preservative free Aliza Aguilar MD Work Phone: [facility] 08-11-2023 Respiratory syncytia l virus (RSV), vaccine, bivalent, protein subunit RSV prefusion F, diluent reconstituted, 0.5 mL, preservative free (BSS=452) Aliza Aguilar MD Work Phone: [facility] 06-18-2022 influenza, injectabl e, quadrivalent, preservative free Aliza Aguilar MD Work Phone: [facility] 06-18-2022 influenza virus vacc ine, unspecified formulation Aliza Aguilar MD Work Phone: [facility] 02-05-2022 Pfizer Monovalent (1 2+ yrs) SARS-COV-2 (COVID-19) vaccine, mRNA, spike protein, LNP, pres. free, 30 mcg/0.3mL dose, betito-sucrose (OUW=800) Aliza Aguilar MD Work Phone: [facility] 08-11-2021 influenza, injectabl e, quadrivalent, preservative free Yesy Covarrubias OT Work Phone: [facility] 08-11-2021 influenza virus vacc ine, unspecified formulation Yesy Marci OT Work Phone: [facility] 07-24-2020 zoster vaccine recombinant K athryn Marci OT Work Phone: [facility] 07-11-2020 Influenza, injectabl e, Madin Christal Canine Kidney, preservative free, quadrivalent Yesy Marci OT Work Phone: [facility] 04-18-2020 zoster vaccine recombinant K athryn Marci OT Work Phone: [facility] 08-28-2019 Influenza, injectabl e, Madin Christal Canine Kidney, preservative free, quadrivalent Yesy Marci OT Work Phone: [facility] 07-01-2019 influenza, high dose seasonal, preservative-free Yesy Marci OT Work Phone: [facility] 06-25-2019 pneumococcal polysac charide vaccine, 23 valent Yesy Marci OT Work Phone: [facility] 07-06-2018 influenza, injectabl e, quadrivalent, contains preservative Yesy Marci OT Work Phone: [facility] 06-04-2018 tetanus toxoid, redu karen diphtheria toxoid, and acellular pertussis vaccine, adsorbed Yesy Marci OT Work Phone: [facility] 08-19-2017 influenza, injectabl e, quadrivalent, preservative free Yesy Marci OT Work Phone: [facility] 08-09-2017 influenza, injectabl e, quadrivalent, contains preservative Yesy Marci OT Work Phone: [facility] 08-01-2016 influenza, injectabl e, quadrivalent, preservative free Yesy Marci OT Work Phone: [facility] 07-11-2015 influenza, injectabl e, madin christal canine kidney, preservative free Yesy Marci OT Work Phone: [facility] 07-11-2015 pneumococcal conjuga te vaccine, 13 valent Yesy Marci OT Work Phone: [facility] 08-13-2009 novel influenza-H1N1 -09, preservative-free, injectable Yesy Covarrubias OT Work Phone: [facility] 07-17-2009 influenza virus vacc ine, unspecified formulation Yesy Covarrubias OT Work Phone: [facility] 08-15-2008 influenza virus vacc ine, unspecified formulation Yesy Covarrubias OT Work Phone: [facility] Payers Date Payer Category Payer Self-pay [id number] 2018 Unknown [id number] 2013 Medicare [id number] [id number] [id number] 1959 [facility] Shield [id number] [id number] 1960 Medicare [id number] 2.16.840.1.531295.19 1959 Unknown [id number] 2.16.840.1.197184.3.579.2.593 1959 Unknown [id number] 2.16.840.1.634099.3.579.2.59 1959 Unknown [id number] 2.16.840.1.145019.3.579.2.593 1959 Unknown [id number] 2.16.840.1.351476.3.579.2.59 1959 Unknown [id number] 2.16.840.1.353428.3.579.2.593 1959 Unknown [id number] 2.16.840.1.768584.3.579.2.59 1959 Unknown [id number] 2.16.840.1.640459.3.579.2.593 1959 Unknown [id number] 2.16.840.1.133119.3.579.2.593 1959 Unknown [id number] 2.16.840.1.984978.3.579.2.593 1959 Unknown [id number] 2.16.840.1.873377.3.579.2.593 1959 Unknown [id number] 2.16.840.1.270873.3.579.2.593 1959 Unknown [id number] 2.16.840.1.345112.3.579.2.593 1959 Unknown [id number] 2.16.840.1.284698.3.579.2.593 1959 Unknown [id number] 2.16.840.1.706450.3.579.2.593 1959 Unknown [id number] 2.16.840.1.106741.3.579.2.593 1959 Unknown [id number] 2.16.840.1.606640.3.579.2.593 1959 Unknown [id number] 2.16.840.1.545523.3.579.2.593 1959 Unknown [id number] 2.16.840.1.057786.3.579.2.593 1959 Unknown [id number] 2.16.840.1.996949.3.579.2.593 1959 Unknown [id number] 2.16.840.1.174703.3.579.2.593 1959 Unknown [id number] 2.16.840.1.632456.3.579.2.732 1959 Unknown [id number] 2.16.840.1.304493.3.579.2.732 1959 Unknown [id number] 2.16.840.1.977466.3.579.2.732 1959 Unknown [id number] 2.16.840.1.235188.3.579.2.196 1959 Unknown [id number] 2.16.840.1.179426.3.579.2.196 1959 Unknown [id number] 2.16.840.1.733344.3.579.2.196 1959 Unknown [id number] 2.16.840.1.542442.3.579.2.196 1959 Unknown [id number] 2.16.840.1.005180.3.579.2.196 1959 Unknown [id number] 2.16.840.1.909505.3.579.2.196 1959 Unknown [id number] 2.16.840.1.766648.3.579.2.196 1959 Unknown [id number] 2.16.840.1.695995.3.579.2.196 1959 Unknown [id number] 2.16.840.1.178952.3.579.2.1286 1959 Unknown [id number] 2.16.840.1.130320.3.579.2.1286 Medicare Medicare Nonpatient [id number] Unknown [id number] 2.16.840.1.778595.3.579.2.531 Unknown [id number] 2.16.840.1.778685.3.579.2.531 Social History Date Type Detail Facility Unknown if ever smoked [facility] Other Sex Assigned At [facility] Other Start: 11-18-2018 End: 05-31-2019 Tobacco smoking status NHIS [facility] History of tobacco use Current smoker [facility] Start: 05-31-2019 Tobacco use and exposure Smokeless tobacco non-user [facility] Start: 04-07-2020 Alcohol intake Lifetime non-d han (finding) [facility] Start: 07-09-2019 History SDOH Alcohol Frequency 1 [facility] Start: 1960 Sex Assigned At Not on file [facility] Start: 1960 Sex Assigned At Female F [facility] Medical Equipment Procedure Code Equipment Code Equipment Origin al Text Equipment Identifier 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 Patient Office Note or Post OP [...] of this patient. Aliza Aguilar MD Injection Procedure.[facility] 08/25/2023 [id number] Madan Perry The patient requested an injection [...] a dressing applied. documented in this encounter [facility] 06-16-2023 Note Addended by: ALIZA AGUILAR on: 06/16/2023 11:34 AM Modules accepted: Orders [facility] 06-16-2023 Miscellaneous Notes Addended by: ALIZA AGUILAR on: 06/16/2023 11:34 AM Modules accepted: Orders documented in this encounter [facility] 06-16-2023 History of Presen t illness Narrative [...] continues on coumadin. documented in this encounter [facility] 05-09-2022 Evaluation note Encounter Date Diagnosis Assessment [...] Xray that was ordered outpatient by PCP [facility] Other 08-10-2022 NotePROCEDURE: XR FOOT RT MIN 3 VIEWS COMPARISON: None. HISTORY: Pain in right foot FINDINGS: BONES:No fracture, acute abnormality, or significant arthropathy. Mild enthesopathic spurring of the calcaneus at the Achilles insertion SOFT TISSUES:Negative. No visible soft tissue swelling. EFFUSION:None visible. OTHER: Negative. IMPRESSION: No acute abnormality Electronically authenticated by: MARTINEZ HARVEY Date: 2022-05-04 16:22[facility]10-27-2021 Evaluation note* Encounter Date Diagnosis Assessment Notes Treatment Notes Treatment Clinical Notes Jun, Swelling of left elbow (ICD-10 - M25.422) Jun, Other Patient refe rred to the ER due to swelling, ecchymosis, pain of her left elbow with no known injury. It is felt the patient needs blood work to evaluate [facility] Other 09-28-2021 Evaluation note* Encounter Date Diagnosis Assessment Notes Treatment Notes Treatment Clinical Notes May, Bee sting, undetermined intent, initial encounter (ICD-10 - T63.444A) May continue Xyzal and Benadryl as directed. [facility] Other Evaluation note* Diagnosis Left hand pain- Primary Pain in limb Left hand pain Pain in limb [facility] Left [facility] pain Pain in limb [facility] Work Phone: Evaluation note* Diagnosis [...] second t roseann Hospitalization History see above [facility] Other Summary Purpose Family History No Family [...] Diagnoses Left hand pain Aliza Aguilar MD [facility] [place] [address] Referral ID Status Reason Start Date Expiration Date Visits Requested Visits Authorized [id number] Authorized Patient Preference 06/16/2023 06/16/2024 3 3 Comments [place] home, [place], [place] Specialty Diagnoses / Procedures Referred By Randi cardona Referred To Contact Radiology Diagnoses Left hand pain Procedures MR WRIST LEFT W/O Aliza Aguilar MD [address] [place] [address] [facility] [address] [place] [id number] Referral ID Status Reason Start Date Expiration Date V isits Requested Visits Authorized [id number] Authorized 06/16/2023 06/15/2024 1 1 Specialty Diagnoses / Procedures Referred By Randi t Referred To Contact Radiology Diagnoses Left hand pain Procedures XR HAND LEFT 3 VIEWS [facility] [address] [place], [place] [id number] [facility] DI[facility]ST[facility]IOLOG[facility] [address] [place] [address] [place] [address] Referral ID Status Reason Start Date Expiration Date Visits Re quested Visits Authorized [id number] Closed 06/16/2023 06/15/2024 1 1 Chief Complaint and Reason for Visit Chief Complaint median nerve karel krista Chief Complaint Unknown Additional Source Comments INFORMATION SOURCE (unrecogn ized section and content) DATE CREATED AUTHOR 05/27/2021 [facility] DATE CREATED AUTHOR AUTHOR'S ORGANIZ ATION 03/03/2023 [facility] DATE CREATED AUTHOR AUTHOR'S ORGANIZ ATION 08/28/2023 [facility] DATE CREATED AUTHOR AUTHOR'S ORGANIZ ATION 12/23/2023 [facility] DATE CREATED AUTHOR AUTHOR'S ORGANIZ ATION 02/01/2024 [facility] DATE CREATED AUTHOR AUTHOR'S ORGANIZ ATION 02/29/2024 [facility] DATE CREATED AUTHOR AUTHOR'S ORGANIZ ATION 03/16/2024 [facility] REASON FOR VISIT (unrecogniz ed section and content) Reason Comments Hand/finger symptoms Specialty Diagnoses / Procedures Referred By Randi t Referred To Contact Radiology Diagnoses Left hand pain Procedures XR HAND LEFT 3 VIEWS [facility] [address] [place] [address] [facility] [address] [place] [address] [address] [place] [id number] Referral ID Status Reason Start Date Expiration Date Visits Re quested Visits Authorized [id number] Closed 06/16/2023 06/15/2024 1 1 Reason Comments Hand/finger symptoms Care Teams (unrecognized sec tion and content) Inspector Rag Sorting Relationship Specialty Start Date End Date Yesy Covarrubias OT [address] [facility] [address] [place] [address] Occupational Therapist Occupational Therapy 06/30/20 Aliza Aguilar MD [address] [place] [phone] Physician Orthopa[facility] 06/30/20 Inspector Rag Sorting Relationship Specialty Start Date End Date Yesy Covarrubias OT [address] [place] [address] [place] [address] Occupational Therapist Occupational Therapy 06/30/20 Aliza Aguilar MD [address] [place] [phone] Physician Orthopaedic Hand Service 06/30/20 Inspector Rag Sorting Relationship Specialty Start Date End Date Yesy Covarrubias OT [address] [place] [address] Occupational Therapist Occupational Therapy 06/30/20 Aliza Aguilar MD [address] [place] [address] Physician Orthopaedic Hand Service 06/30/20 Team Status: Active Member Role Status Dates [place] DO Primary Care Provider Active Team Status: Inactive Member Role Status Dates [place] DO Primary Care Provider Active Aliza Aguilar Attending Provider Active Inspector Rag Sorting Relationship Specialty Start Date End Date Yesy Covarrubias OT [address] [address] [place] [address] Occupational Therapist Occupational Therapy 06/30/20 Aliza Aguilar MD [address] [place] [address] Physician Orthopaedic Hand Service 06/30/20 Inspector Rag Sorting Relationship Specialty Start Date End Date Yesy Covarrubias OT [address] [facility] [place] [address] Occupational Therapist Occupational Therapy 06/30/20 Aliza Aguilar MD [address] [facility] [address] Physician Orthopaedic Hand Service 06/30/20 Team Status: [...] BE BASED ON THE PRIMARY CLINICAL RECORDS. [email or web address] provides no warranty or guarantee of the accuracy or completeness of information in this document.
[2024-05-13 07:22] LABS: Prothrombin Time 9.8 sec (9.0-11.6)
[2024-05-13 07:35] LABS: INR <0.93
[2024-05-13 07:40] VITALS: BP 121/73; PULSE 100; TEMP 36.2; O2SAT 100
[2024-05-13] MEDS: LIDOCAINE HCL 2% 400 MG/20 ML MDV INJ (08:28)
[2024-05-13] MEDS: TRIAMCINOLONE ACETONIDE 40 MG/ML VIAL 80 MG INJ (08:28)
[2024-05-13] MEDS: BUPIVACAINE HCL 0.25% PF 25 MG/10 ML VIAL 18 ML INJ (08:28)
[2024-05-13 08:29] VITALS: BP 129/70; BP 142/73; PULSE 101; PULSE 98; O2SAT 93; O2SAT 94
--- NOTE | 2024-05-13 08:30 | P.ON_ITS ---
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 A timeout was completed verifying the correct patient, procedure site, position, and special equipment.? The right T11 rib was contacted with the needle tip 1 cm lateral to the costotransverse junction and the needle tip was walked caudally.? The above- mentioned injectate was placed in 1 mL aliquots and the procedure was repeated at right T12 rib. The same procedure was then completed on the opposite side.? The patient tolerated the procedures well and was found suitable for discharge in the accompaniment of a responsible adult. Anesthesia: Local Surgeon: Meet Harp Pathology: none sent Condition: stable Disposition: no change
== END 2024-05-13 08:37 | disposition home or self-care (01) ==
LOC: SURGOUT 07:02
PROVIDERS: PCP Family Medicine; Visit Provider Anesthesiology
DX: G58.8 Other specified mononeuropathies (principal)
CPT/HCPCS: 36415; 64420; 64421; 85610; J0665; J3301

== ENCOUNTER 2024-05-15 10:23 | Outpatient (OUT) | payer BC, MEDICARE, SELFPAY ==
--- OUTSIDE RECORDS SUMMARY | 2024-05-15 10:43 | XMS_ITS | CCD ---
Author Organization [facility] Care Team Providers Care Reception Manager Name Role Phone Adilia Mederos Unavailable Lilian Ferreira Unavailable Yesy Covarrubias OT Unavailable Aliza Aguilar MD Unavailable [phone], [address] TANK Aguillon Primary Care [...] OT, Yesy Unavailable Aliza Aguilar MD. Unavailable [phone] Primary Care Provider Aliza Aguilar Attending Provider [phone] PROVIDER, UNKNOWN Admitting Unavailable PROVIDER, UNKNOWN Attending [...] Lake, DO Tank A Primary Care Provider [phone] DO Aliza Spencer Attending Provider [phone] Aliza Spencer Admitting Unavailable Aliza Spencer Attending [...] Acetaminophen / oxyCODONE Drug Allergy stomach upset cisimple Other (3 sources) Adhesive Tape Propensity to adverse reactions rash [facility] [employer] Other (4 sources) Cephalexin; Translations: [CEPHALEXIN] Drug Allergy 12-22-19 anaphylaxis [facility] (10 sources) Erythromycin; Translations: [ERYTHROMYCIN] Drug Allergy 12-22-19 06 [facility] Iodine; Translations: [iodine] Drug Allergy 01-31-20 13 rash [facility] Repository (5 sources) Latex; Translations: [LATEX] Propensity to adverse reactions 12-22-19 06 rash [facility] (5 sources) Penicillin G Benzathine; Translations: [penicillin G benzathine] Drug allergy 12-11-19 23 anaphylaxis [facility] (3 sources) Procaine Drug Allergy headaches [facility] [facility] [employer] Other (2 sources) Cephalexin; Translations: [Keflex] Drug Allergy 01-31-20 13 anaphylaxis [facility] Repository (1 source) Novocain Drug allergy Unknown cisimple Other (8 sources) Acetaminophen; Translations: [ACETAMINOPHEN] Drug [...] reactions to drug 12-22-19 06 [facility] (7 sources) Quinolones (Antibiotic); Translations: [QUINOLONES] [...] adverse reactions to drug 07-22-20 19 Agitation [facility] Work Phone: (1 source) Ciprofloxacin Drug Allergy [facility] Repository (1 source) Iodine (And Iodine Containting Drugs) Drug allergy (disorder) 01-31-20 13 [facility] Repository (1 source) Latex Drug allergy (disorder) 01-31-20 13 [facility] Rep[facility] (3 sources) Morphine; Translations: [MORPHINE] Drug Allergy 10-21-19 14 vomiting [facility] Repository (1 source) Penicillins Drug allergy (disorder) 01-31-20 13 [facility] Repository (1 source) Sulfonamides (Antibiotic) Drug allergy (disorder) 01-31-20 13 [facility] Repository (1 source) Darvocet-N 100 Drug allergy (disorder) 01-31-20 13 [facility] Repository (1 source) E.E.S. Drug allergy (disorder) 01-31-20 13 [facility] Repository (2 sources) Adhesive Tape; Translations: [adhesive tape] Allergy to substance 12-11-19 rash [facility] (2 sources) oxyCODONE; Translations: [oxycodone] Drug Allergy 12-11-19 stomach upset [facility] (2 sources) Procaine; Translations: [procaine] Drug Allergy 12-11-19 headaches [facility] (1 source) Cephalexin Drug Allergy 12-11-19 [facility] Repository (1 source) Doxycycline Drug Allergy 12-11-19 [facility] Repository (1 source) Latex Drug allergy (disorder) 12-11-19 [facility] Repository (1 source) Morphine Drug Allergy 12-11-19 [facility] Repository (1 source) Adhesive agent; [...] sources) Barbiturate, Central Nervous System Stimulant, Methylxanthine Mqfkquaskv-DSVF-Sd ffeine 50-300-40 MG CAPS Take by mouth daily as needed. 0 Active take 1 capsule by mo uth every four hours Vatqgkjfkn-BNTN-Akjrylrf 50-325-40 MG 1 capsule as needed Orally every 4 hrs Not-Taking Fioricet Active acetaminophen 325 mg / HYDROcodone bitartrate 5 mg oral tablet (10 sources) Opioid Agonist take 1 tablet by mouth once hydrocodone-acetaminophen (NORCO) 5-325 mg per tablet Take 1 Tablet by mouth. 0 Active HYDROcodone-Acet aminophen 7.5-300 MG Orally Not-Taking Milton Active acyclovir 400 mg oral tablet (8 [...] by mouth daily. Followed in coumadin clinic [place], [place] 0 Active take 1 tablet by [...] 4 mg/0.1 mL nasal liquid Instill 1 Sargeant into one nostril (alternate sides) as needed. [...] Onset: 01-21-2023 Episodic Other aftercare (1 source) halfway (current) use of anticoagulants; Translations: [INSTRUCTIONAL AIDE CURRNT USE ANTICOAGULANTS] Onset: 02-22-2023 Episodic Other [...] Test Name Value Interpretation Reference Range Facility [facility] 02-28-2024 L Specimen: [id number] Received: 02/28/24 Status: DUDLEY Powell Num: [id number] Spec Type: Surgical Subm Dr: Aliza Spencer DO Tissues: A Stomach - Biopsy/Polyp (ANTRUM BX) B Stomach - Biopsy/Polyp (BX FUNDAL GLAND POLYP) C Esophagus Biopsy (DISTAL ESOPH BX) D Esophagus Biopsy (UPPER ESOPH BX) Procedures: HE/8, Gross/Micro L4/4 Age/ Patient Sex Location Account Attending Physician Madan Perry 64/F LABELL [id number] Aliza Spencer DO SPEC NUM: [id number] RECD: 02/28/24 STATUS: DUDLEY POWELL NUM: [id number] SUNSHINE: 02/28/[address]: Aliza Spencer DO [...] tissue fragment, entirely submitted in B1. Specimen: [id number] Received: 02/28/24 Status: DUDLEY Olivermedhat Num: [id number] Spec Type: Surgical Subm Dr: Aliza Spencer, Tissues: A Stomach - Biopsy/Polyp (ANTRUM BX) B Stomach - Biopsy/Polyp (BX FUNDAL GLAND POLYP) C Esophagus Biopsy (DISTAL ESOPH BX) D Esophagus Biopsy (UPPER ESOPH BX) Procedures: SABAS Gross/Micro L4/4 Patient: Madan Perry [id number] (Continued) Specimen: [id number] Received: 02/28/24 (Continued) Gross Description (Continued) Signed (signature on file) Steven Ruvalcaba MD 02/29/24 1501 Specimen: [id number] Received: 02/28/24 Status: DUDLEY Powell Num: [id number] Spec Type: Surgical Subm Dr: Aliza Spencer DO Tissues: A Stomach - Biopsy/Polyp (ANTRUM BX) B Stomach - Biopsy/Polyp (BX FUNDAL GLAND POLYP) C Esophagus Biopsy (DISTAL ESOPH BX) D Esophagus Biopsy (UPPER ESOPH BX) Procedures: Halina OBREGON/Alta L4/4 Patient: Madan Perry [id number] (Continued) Specimen: [id number] Received: 02/28/24 (Continued) Gross Description (Continued) C. Further labeled distal esophagus BX are 2 jiménez mucosal tissue fragments measuring 0.3 x 0.2 x 0.1 cm and 0.2 x 0.2 x 0.1 cm, entirely submitted in C1. D. Further labeled upper esophagus BX are 2 jiménez mucosal tissue fragments each measuring 0.2 x 0.1 x 0.1 cm, entirely submitted in D1. CPT Codes 53901x8 Specimen: [id number] Received: 02/28/24 Status: DUDLEY Powell Num: [id number] Spec Type: Surgical Subm Dr: Aliza Spencer DO Tissues: A Stomach - Biopsy/Polyp (ANTRUM BX) B Stomach - Biopsy/Polyp (BX FUNDAL GLAND POLYP) C Esophagus Biopsy (DISTAL ESOPH BX) D Esophagus Biopsy (UPPER ESOPH BX) Procedures: WILEY/Ratna, Gross/Micro L4/4 Patient: Madan Perry [id number] (Continued) Signed (signature on file) Steven Ruvalcaba MD 02/29/24 1501 Normal [facility] URINE CULTUREon 12-23-2023 Bacteria identified Cx Nom (U) FINAL Normal (. - .) [facility] Comment on above: Order Comment: MS CC FACILITY: [facility] [id number] Result Comment: HUA N CATCH MID-STREAM URINE > 10,000 BUT < 100,000 CFU/ML RESEMBLES A CONTAMINATED URINE COLLECTION Performed By: #### C -UR #### [facility] [address] [facility], [address] BASIC MET PANEL W/GFRon 12-0 Calcium [Mass/Vol] 9.2 mg/dL Normal (8.6 - 10.6) [facility] Comment on above: Order Comment: FACIL ITY: [facility] [id number] Performed By: #### C HEM-B #### [facility] [address] [facility], [address] Chloride [Moles/Vol] 99 mmol/L Normal (98 - 107) [facility] Comment on above: Order Comment: FACIL ITY: [facility] [id number] Performed By: #### C HEM-B #### [facility] [address] [facility], [address] CO2 [Moles/Vol] 27 mmol/L Normal (22 - 30) [facility] Comment on above: Order Comment: FACIL ITY: [facility] [id number] Performed By: #### C HEM-B #### [facility] [address] [place], [address] Creatinine [Mass/Vol] 0.74 mg/dL Normal (0.52 - 1.04) [facility] Comment on above: Order Comment: FACIL ITY: [facility] [id number] Performed By: #### C HEM-B #### [facility] [address] [place], [address] GFR- AMER 95.6 ML/M1.7 Normal (60.0 - 140.1) [facility] Comment on above: Order Comment: FACIL ITY: [facility] [id number] Performed By: #### C HEM-B #### [facility] [address] [place], [address] GFR-NON AFRIC-AMER 79.0 ML/M1.7 Normal (60.0 - 115.8) [facility] Comment on above: Order Comment: FACIL ITY: [facility] [id number] Performed By: #### C HEM-B #### [facility] [address] [place], [address] Glucose [Mass/Vol] 100 mg/dL Normal (74 - 106) [facility] Comment on above: Order Comment: FACIL ITY: [facility] [id number] Performed By: #### C HEM-B #### [facility] [address] [place], [address] Potassium [Moles/Vol] 4.6 mmol/L Normal (3.5 - 5.1) [facility] Comment on above: Order Comment: FACIL ITY: [facility] [id number] Performed By: #### C HEM-B #### [facility] [address] [place], [address] Sodium [Moles/Vol] 136 mmol/L Low (137 - 145) [facility] Comment on above: Order Comment: FACIL ITY: [facility] [id number] Performed By: #### C HEM-B #### [facility] [address] [facility], [address] Urea nitrogen [Mass/Vol] 11 mg/dL Normal (7 - 17) [facility] Comment on above: Order Comment: FACIL ITY: [facility] [id number] Performed By: #### C HEM-B #### [facility] [address] [facility], [address] Progress Noteson 08-25-2023 Steward/Stewardess Second Authentication Interface Message Text CC: Left hand and wrist pain Follow up after MRI done at [facility] [address] [facility]. Normal The [employer] Steward/Stewardess Second Authentication Interface Message Text Patient Office Note or Post OP Note Name:Madan M Dionna Date: 08/25/2023 CC: left wrist pain at [facility] area No chief complaint on file. EXAM: [...] of this patient. Aliza Aguilar MD Injection [facility] 08/25/2023 [id number] Madan Perry The patient requested an injection [...] conon 023 MR wrist LT wo con [facility] Main [place] [id number] MRI Report Signed Patient: Madan Perry MR#: [id number] : 1960 Acct:[id number] Age/Sex: 63 / F ADM Date: 07/20/23 Loc: [facility] Room: Type: [facility] Attending Dr: Aliza Aguilar Copies to: Aliza Aguilar Ordering Provider: Aliza Aguilar Date of Service: 07/20/23 MR/MR hand LT wo con: MEDIAN NERVE COMPRESSION ([id number]) MR/MR wrist LT wo con: MEDIAN NERVE COMPRESSION ([id number]) XR/XR pre/post mri xray: MEDIAN NERVE COMPRESSION [...] Jose Dial M.D.07/21/2023 7:38 PM Dictation Location: [place] [address] Transcribed By: [facility] 07/21/231937 Dictated By: Jose Dial DO 07/20/23 1525 Signed By: 07/21/231937 Normal [facility] [address] [facility] Telephone Encounteron 2022 Steward/Stewardess Second Authentication Interface Message Text Spoke with patient and scheduled. Normal The [employer] Telephone Encounteron 2022 Steward/Stewardess Second Authentication Interface Message Text Pt called as [...] she would need something sooner. Contact pt @[phone] Normal [facility] [employer] Addendum Noteon 06-16-2023 Steward/Stewardess Second Authentication Interface Message Text Addended by: ALIZA AGUILAR on: 06/16/2023 11:34 AM Modules accepted: Orders Normal [facility] [employer] Progress Noteson 06-16-2023 Steward/Stewardess Second Authentication Interface Message Text Patient Office Note or Post OP Note Name:Madna Perry Date: 06/16/2023 CC: left hand pain [...] this patient. Aliza Aguilar MD Normal [facility] [employer] Steward/Stewardess Second Authentication Interface Message Text CC: Left hand pain Pain Left wrist and hand; tingling to middle and ring fingers. Pt states ganglion which was removed has returned and is painful. CMC joint painful. 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 Normal [facility] [employer] XR HAND LEFT 3 VIEWSon [...] findings. Left hand MACRO: None Normal [facility] Hand - left 3 Viewson [...] with the findings. Left hand MACRO: None [facility] Radiology Study observation (narrative) [facility] Hand - left 3 ViewsOrdere d By: Alberto Llanes on 06-16-2023 [employer] Work Phone: US DARNELL DOP LEG BILon [...] [place] Date: 2023-01-27 17:22 Normal [facility] CBC AUTO DIFFon 01-12-2023 BASO # 0.1 103/ul Normal 0.0-0.1 [facility] Comment on above: Performed By: #### C BC #### [facility] [address] [place] [address] Dr. Rocio Hernandez Basophils/100 WBC (Bld) 1.0 % Normal 0.2-2.0 [facility] Comment on above: Performed By: #### C BC #### [facility] [address] [place] [address] Dr. Rocio Hernandez EO # 0.2 103/ul Normal 0.0-0.7 [facility] Comment on above: Performed By: #### C BC #### [facility] [address] [place] [address] Dr. Rocio Hernandez Eosinophils/100 WBC (Bld) 2.9 % Normal 0.9-7.0 [facility] Comment on above: Performed By: #### C BC #### [facility] [address] [place] [address] Dr. Rocio Hernandez Erythrocyte distribution width (RBC) [Ratio] 14.1 % Normal 11.0-15.0 [facility] Comment on above: Performed By: #### C BC #### [facility] [address] [place] [address] Dr. Rocio Hernandez Hematocrit (Bld) [Volume fraction] 41.2 % Normal 36.0-48.0 [facility] Comment on above: Performed By: #### C BC #### [facility] [address] [place] [address] [address] Rocio Hernandez Hemoglobin (Bld) [Mass/Vol] 13.6 g/dL Normal 12.0-16.0 [facility] Comment on above: Performed By: #### C BC #### [facility] [address] [place] [address] Dr. Rocio Hernandez IG # 0.01 10e3/ul Normal 0.00-0.03 [facility] Comment on above: Performed By: #### C BC #### [facility] [address] [place] [address] Dr. Rocio Hernandez IG % 0.2 % Normal 0.0-0.5 [facility] Comment on above: Performed By: #### C BC #### [facility] [address] [place] [address] Dr. Rocio Hernandez LYMPH # 1.3 103/ul Normal 1.2-3.8 [facility] Comment on above: Performed By: #### C BC #### [facility] [address] [place] [address] Dr. Rocio Hernandez Lymphocytes/100 WBC (Bld) 21.9 % Normal 20.5-60.0 [facility] Comment on above: Performed By: #### C BC #### [facility] [address] [place] [address] Dr. Rocio Hernandez MANUAL DIFF REQ NO Normal [facility] Comment on above: Performed By: #### C BC #### [facility] [address] [place] [address] Dr. Rocio Hernandez MCH (RBC) [Entitic mass] 28.4 pg Normal 26.7-34.0 [facility] Comment on above: Performed By: #### C BC #### [facility] [address] [place] [address] Dr. Rocio Hernandez MCHC (RBC) [Mass/Vol] 33.0 g/dL Normal 29.9-35.2 [facility] Comment on above: Performed By: #### C BC #### [facility] [address] [place] [address] [address] Rocio Hernandez MCV (RBC) [Entitic vol] 86.0 fL Normal 81.0-99.0 [facility] Comment on above: Performed By: #### C BC #### [facility] [address] [place] [address] [address] Rocio Hernandez MONO # 0.6 103/ul Normal 0.3-0.8 [facility] Comment on above: Performed By: #### C BC #### [facility] [address] [place] [address] [address] Rocio Hernandez Monocytes/100 WBC (Bld) 10.3 % Normal 1.7-12.0 [facility] Comment on above: Performed By: #### C BC #### [facility] [address] [place] [address] [address] Rocio Hernandez NEUT # 3.8 103/ul Normal 1.4-6.5 [facility] Comment on above: Performed By: #### C BC #### [facility] [address] [place] [address] [address] Rocio Hernandez Neutrophils/100 WBC (Bld) 63.7 % Normal 43.0-75.0 [facility] Comment on above: Performed By: #### C BC #### [facility] [address] [place] [address] [address] Rocio Hernandez Platelet mean volume (Bld) [Entitic vol] 9.0 fL Critically low 9.5-13.5 [facility] Comment on above: Performed By: #### C BC #### [facility] [address] [place] [address] [address] Rocio Hernandez PLT 360 103/ul Normal 150-450 [facility] Comment on above: Performed By: #### C BC #### [facility] [address] [place] [address] [address] Rocio Hernandez RBC 4.79 106/ul Normal 4.20-5.40 [facility] Comment on above: Performed By: #### C BC #### [facility] [address] [place] [address] [address] Rocio Hernandez WBC 5.9 103/ul Normal 4.0-11.0 [facility] Comment on above: Performed By: #### C BC #### [facility] [address] [place] [address] [address] Rocio Hernandez FREE T3on 01-12-2023 FREE T3 2.31 pg/mlL Normal 2.18-3.98 [facility] Comment on above: Performed By: #### T SH, CMP, LIPID, FT3 ####[facility] [address] [place] [address]Dr. Rocio Hernandez FREE T4on 01-12-2023 Free T4 [Mass/Vol] 1.21 ng/dL Normal 0.76-1.46 [facility] Comment on above: Performed By: #### B 12FOL, FT4 #### [facility] [address] [place] [address] [address] Rocio Hernandez GLYCOHEMOGLOBIN A1Con 2022 ADA RECOMMENDATION SEE BELOW Normal [facility] Comment on above: Result Comment: ADA RECOMMENDED LIMIT 4.0 - 6.0 ADA THERAPEUTIC TARGET < 7.0 ACTION SUGGESTED > 7.0 Performed By: #### A 1C ####[facility] [address] [place] [address]DrClem Hernandez Glucose [Mass/Vol] 123 mg/dL Normal [facility] Comment on above: Performed By: #### A 1C ####[facility] [address] [place] [id number] Hernandez HbA1c (Bld) [Mass fraction] 5.9 % Normal 4.5-6.2 [facility] Comment on above: Performed By: #### A 1C ####[facility] [address] [place] [address]Dr. Rocio Hernandez LIPID PROFILEon 01-12-2023 CHOL-HDL RATIO NORM SEE BELOW Normal [facility] Comment on above: Result Comment: 3.3 - 4.4 LOW RISK 4.4 - 7.1 AVERAGE RISK 7.1 - 11.0 MODERATE RISK >11.0 HIGH RISK Performed By: #### T SH, CMP, LIPID, FT3 #### [facility] [address] [place] [address] [address] Rocio Hernandez Cholesterol [Mass/Vol] 203 mg/dL Critically high <=200 [facility] Comment on above: Performed By: #### T SH, CMP, LIPID, FT3 #### [facility] [address] [place] [address] [address] Rocio Hernandez Cholesterol in HDL [Mass/Vol] 89 mg/dL Critically high 40-60 [facility] Comment on above: Performed By: #### T SH, CMP, LIPID, FT3 #### [facility] [address] [place] [address] [address] Rocio Hernandez Cholesterol in LDL [Mass/Vol] 87.8 mg/dL Normal [facility] Comment on above: Performed By: #### T SH, CMP, LIPID, FT3 #### [facility] [address] [place] [address] Dr. Rocio Hernandez Cholesterol.total/C holesterol in HDL [Mass ratio] 2.3 {ratio} Normal [facility] Comment on above: Performed By: #### T SH, CMP, LIPID, FT3 #### [facility] [address] [place] [address] [address] Rocio Hernandez HDL NORMAL > or = 60 mg/dl - LO W CARDIOVASCULAR RISK <40 mg/dl - HIGH CARDIOVASCULAR RISK Normal [facility] Comment on above: Performed By: #### T SH, CMP, LIPID, FT3 #### [facility] [address] [place] [address] Dr. Rocio Hernandez LDL CALC NORMAL SEE BELOW Normal [facility] Comment on above: Result Comment: <100 mg/dl OPTIMAL 100 - 129 mg/dl NEAR OR ABOVE OPTIMAL 130 - 159 mg/dl BORDERLINE HIGH 160 - 189 mg/dl HIGH >190 mg/dl VERY HIGH Performed By: #### T SH, CMP, LIPID, FT3 #### [facility] [address] [place] [address] [address] Rocio Hernandez Triglyceride [Mass/Vol] 131 mg/dL Normal <=150 [facility] Comment on above: Performed By: #### T SH, CMP, LIPID, FT3 #### [facility] [address] [place] [address] [address] Rocio Hernandez VLDL CALC 26.2 mg/dL Normal [facility] Comment on above: Performed By: #### T SH, CMP, LIPID, FT3 #### [facility] [address] [place] [address] [address] Rocio Hernandez MICROALB CREAT RATIO RANDOMo n 01-12-2023 mALB <1.3 Normal <=30.0 [facility] Comment on above: Performed By: #### M CRR ####[facility] [address] [place] [address]DrClem Hernandez MALB CR RATIO 13.6 mg/g Normal 0.0-29.[address] [facility] Comment on above: Performed By: #### M CRR ####[facility] [address] [place] [address]Dr. Rocio Hernandez MALB CR RATIO RANGE SEE BELOW Normal [facility] Comment on above: Result Comment: NO M ICROALBUMINURIA 0-29 MG/G CLINICAL MICROALBUMINURIA 30-300 MG/G MACROALBUMINURIA >300 MG/G Performed By: #### M CRR ####[facility] [address] [place] [id number]. Rocio Hernandez URINE CREAT 95.84 mg/dL Normal 20.00-300.00 [facility] Comment on above: Performed By: #### M CRR ####[facility] [address] [place] [address]Dr. Rocio Hernandez PROF 14(COMP METB)on 023 Albumin [Mass/Vol] 3.8 g/dL Normal 3.4-5.0 [facility] Comment on above: Performed By: #### T SH, CMP, LIPID, FT3 #### [facility] [address] [place] [address] [address] Rocio Hernandez Albumin/Globulin [Mass ratio] 0.9 {ratio} Normal [facility] Comment on above: Performed By: #### T SH, CMP, LIPID, FT3 #### [facility] [address] [place] [address] [address] Rocio Hernandez ALP [Catalytic activity/Vol] 111 U/L Normal 46-116 [facility] Comment on above: Performed By: #### T SH, CMP, LIPID, FT3 #### [facility] [address] [place] [address] [address] Rocio Hernandez ALT [Catalytic activity/Vol] 42 U/L Normal 14-59 [facility] Comment on above: Performed By: #### T SH, CMP, LIPID, FT3 #### [facility] [address] [place] [address] [address] Rocio Hernandez Anion gap [Moles/Vol] 10.8 mmol/L Normal [facility] Comment on above: Performed By: #### T SH, CMP, LIPID, FT3 #### [facility] [address] [place] [place] [address] Dr. Rocio Hernandez AST [Catalytic activity/Vol] 24 U/L Normal 15-37 [facility] Comment on above: Performed By: #### T SH, CMP, LIPID, FT3 #### [facility] [address] [place] [address] Dr. Rocio Hernandez Bilirubin [Mass/Vol] 0.4 mg/dL Normal 0.2-1.0 [facility] Comment on above: Performed By: #### T SH, CMP, LIPID, FT3 #### [facility] [address] [address] [address] Rocio Hernandez Calcium [Mass/Vol] 9.6 mg/dL Normal 8.5-10.1 [facility] Comment on above: Performed By: #### T SH, CMP, LIPID, FT3 #### [facility] [address] [place] [address] Dr. Rocio Hernandez Chloride [Moles/Vol] 93 mmol/L Critically low 98-107 [facility] Comment on above: Performed By: #### T SH, CMP, LIPID, FT3 #### [facility] [address] [place] [address] Dr. Rocio Hernandez CO2 [Moles/Vol] 31.2 mmol/L Normal 21.0-32.0 [facility] Comment on above: Performed By: #### T SH, CMP, LIPID, FT3 #### [facility] [address] [address] [address] Rocio Hernandez Creatinine [Mass/Vol] 1.02 mg/dL Normal 0.55-1.02 [facility] Comment on above: Performed By: #### T SH, CMP, LIPID, FT3 #### [facility] [address] [address] [address] Rocio Hernandez EGFR-AF CITIZEN OF [place] >60 Normal >=60 [facility] Comment on above: Performed By: #### T SH, CMP, LIPID, FT3 #### [facility] [address] [place] [address] Dr. Rocio Hernandez EGFR-NON AF CITIZEN OF [place] 55 mL/min/1.73m2 Critically low >=60 [facility] Comment on above: Performed By: #### T SH, CMP, LIPID, FT3 #### [facility] [address] [address] [address] Rocio Hernandez Globulin (S) [Mass/Vol] 4.4 g/dL Normal [facility] Comment on above: Performed By: #### T SH, CMP, LIPID, FT3 #### [facility] [address] [place] [address] Dr. Rocio Hernandez Glucose [Mass/Vol] 102 mg/dL Normal 74-106 [facility] Comment on above: Performed By: #### T SH, CMP, LIPID, FT3 #### [facility] [address] [address] [address] Rocio Hernandez Potassium [Moles/Vol] 4.0 mmol/L Normal 3.5-5.1 [facility] Comment on above: Performed By: #### T SH, CMP, LIPID, FT3 #### [facility] [address] [address] [address] Rocio Hernandez Protein [Mass/Vol] 8.2 g/dL Normal 6.4-8.2 [facility] Comment on above: Performed By: #### T SH, CMP, LIPID, FT3 #### [facility] [address] [address] [address] Rocio Hernandez Sodium [Moles/Vol] 131 mmol/L Critically low 136-[address] [facility] Comment on above: Performed By: #### T SH, CMP, LIPID, FT3 #### [facility] [address] [place] [address] Dr. Rocio Hernandez Urea nitrogen [Mass/Vol] 6.0 mg/dL Critically low 7.0-18.0 [facility] Comment on above: Performed By: #### T SH, CMP, LIPID, FT3 #### [facility] [address] [place] [address] Dr. Rocio Hernandez Urea nitrogen/Creatinine [Mass ratio] 5.9 mg/mg Normal [facility] Comment on above: Performed By: #### T SH, CMP, LIPID, FT3 #### [facility] [address] [place] [address] Dr. Rocio Hernandez TSHon 01-12-2023 TSH 5.647 uIU/mL Critically high 0.358-3.740 [facility] Comment on above: Performed By: #### T SH, CMP, LIPID, FT3 #### [facility] [address] [place] [address] Dr. Rocio Hernandez VIT B12 AND FOLATEon 023 Cobalamin (Vitamin B12) [Mass/Vol] 1189.0 pg/mL Critically high 193.0-986.0 [facility] Comment on above: Performed By: #### B 12FOL, FT4 #### [facility] [address] [place] [address] Dr. Rocio Hernandez FOLATE 27.30 ng/mL Normal 8.60-58.90 [facility] Comment on above: Performed By: #### B 12FOL, FT4 #### [facility] [address] [place] [address] Dr. Rocio Hernandez MG MAMM SCREEN 3D TANIA CADon 12-19-2022 MG MAMM SCREEN 3D TANIA CAD Patient: MADAN PERRY Exam Date: 12/19/2022 : 1960 Gender:F Ordering : DR [place] D.O. Admission #: [id number] Family : Order #: [id number] CLICK HERE TO VIEW EXAM RADIOLOGY REPORT [...] ovarian cancer at age 54. LOCATION: [facility] BREAST COMPOSITION: Scattered areas fibroglandular density. FINDINGS: [...] M.D. on 12/19/2022 at 11:19 Normal [facility] XR DEXA BONE DENSITYon 12-19 XR DEXA [...] by: LIZ FLORES Date: 2022-12-19 10:01 Normal [facility] FREE T3on 03-22-2022 FREE T3 2.43 pg/mlL Normal 2.18-3.98 [facility] Comment on above: Performed By: #### B MP, FT3, TSH ####[facility] [address] [address]. Rocio Hernandez FREE T4on 03-22-2022 Free T4 [Mass/Vol] 1.43 ng/dL Normal 0.76-1.46 [facility] Comment on above: Performed By: #### F T4 ####[facility] [address] [place], [place] [address]Dr. Rocio Hernandez PROF CHEM 8 (BAS METB)on Anion gap [Moles/Vol] 10.2 mmol/L Normal [facility] Comment on above: Performed By: #### B MP, FT3, TSH ####[facility] [address] [address]Dr. Rocio Hernandez Calcium [Mass/Vol] 8.8 mg/dL Normal 8.5-10.1 [facility] Comment on above: Performed By: #### B MP, FT3, TSH ####[facility] [address] [address]Dr. Rocio Hernandez Chloride [Moles/Vol] 104 mmol/L Normal 98-107 [facility] Comment on above: Performed By: #### B MP, FT3, TSH ####[facility] [address] [address]Dr. Rocio Hernandez CO2 [Moles/Vol] 31.7 mmol/L Normal 21.0-32.0 [facility] Comment on above: Performed By: #### B MP, FT3, TSH ####[facility] [address] [address]Dr. Rocio Hernandez Creatinine [Mass/Vol] 0.96 mg/dL Normal 0.55-1.02 [facility] Comment on above: Performed By: #### B MP, FT3, TSH ####[facility] [address] [address]Dr. Rocio Hernandez EGFR-AF CITIZEN OF [place] >60 Normal >=60 [facility] Comment on above: Performed By: #### B MP, FT3, TSH ####[facility] [address] [address]Dr. Rocio Hernandez EGFR-NON AF CITIZEN OF [place] 59 mL/min/1.73m2 Critically low >=60 [facility] Comment on above: Performed By: #### B MP, FT3, TSH ####[facility] [address] [place], [place] [address]Dr. Rocio Hernandez Glucose [Mass/Vol] 110 mg/dL Critically high 74-106 [facility] Comment on above: Performed By: #### B MP, FT3, TSH ####[facility] [address] [place], [place] [address]Dr. Rocio Hernandez Potassium [Moles/Vol] 2.9 mmol/L Critically low 3.5-5.1 [facility] Comment on above: Result Comment: TEST REPEATED CRITICAL VALUE VERIFIED Performed By: #### B MP, FT3, TSH ####[facility] [address] [address]Dr. Rocio Hernandez Sodium [Moles/Vol] 141 mmol/L Normal 136-145 [facility] Comment on above: Performed By: #### B MP, FT3, TSH ####[facility] [address] [place], [place] [address]Dr. Rocio Hernandez Urea nitrogen [Mass/Vol] 12.0 mg/dL Normal 7.0-18.0 [facility] Comment on above: Performed By: #### B MP, FT3, TSH ####[facility] [address] [place], [place] [address]Dq. Rocio Hernandez Urea nitrogen/Creatinine [Mass ratio] 12.5 mg/mg Normal [facility] Comment on above: Performed By: #### B MP, FT3, TSH ####[facility] [address] [place], [place] [address]Tp. Rocio Hernandez TSHon 03-22-2022 TSH 0.137 uIU/mL Critically low 0.358-3.740 [facility] Comment on above: Performed By: #### B MP, FT3, TSH ####[facility] [address] [place], [place] [address]Oh. Rocio Hernandez Patient Letter FTMCon 2020 Patient Letter FT (Inserted Image. Wilda ble to display) May 26, 2021 MADAN PERRY [address] [facility] [address] [place] [address] MADAN PERRY 1960 Dear Madan, This is a SECOND ATTEMPT to remind you that you are due for an appointment with [facility] [employer] [facility]. Please contact our office at [phone] to schedule an appointment at your earliest convenience. Thank you, [facility] Reminderson 05-26-2021 Reminders - From: Jane Onofre To: [facility] - Reminders/Recalls; Sent: 01/18/2021 12:33:31 EDT Show up: 04/25/2021 12:33:00 EDT Subject: Ambulatory Reminder Due Date/Time: 06/09/2021 12:33:00 EDT Reminder/Recall sara peace 5 year colon 06/09/2021 first recall letter second rcall letter [facility] Patient Letter FTMCon 2020 Patient Letter FT (Inserted Image. Wilda ble to display) May 05, 2021 MADAN PERRY [address] [facility] [address] [place] [address] MADAN PERRY 1960 Dear Madan, This is a reminder that you are due for an appointment with [facility]. Please contact our office at [phone] to schedule an appointment at your earliest convenience. Thank you, [facility] Vital Signs Date Time Vital Sign Value Performing Clinician Facility 05-09-2022 16:35-0400 Body height 161.29 cm Adilia Cardenasault Other [facility] Other 05-09-2022 16:35-0400 Body mass index (BMI) [Ratio] 25.63 kg/m2 Adilia Rosa M Other [facility] Other 05-09-2022 16:35-0400 Body temperature 97.8 [degF] Adilia Rosa M Other [facility] Other 05-09-2022 16:35-0400 Body weight 66.68 kg Adilia Rosa M Other [facility] Other 05-09-2022 16:35-0400 Diastolic blood pressure 79 mm[Hg] Adilia Rosa M Other [facility] Other 05-09-2022 16:35-0400 Respiratory rate 18 /min Adilia Rosa M Other [facility] Other 05-09-2022 16:35-0400 SaO2% (BldA) [Mass fraction] 98 % Adilia Rosa M Other [facility] Other 05-09-2022 16:35-0400 Systolic blood pressure 136 mm[Hg] Adilia Mederos Other [facility] Other 07-21-2021 16:05-0400 Body height 161.29 cm Lilian Ferreira Other [facility] Other 07-21-2021 16:05-0400 Body mass index (BMI) [Ratio] 26.5 kg/m2 Lilian Ferreira Other [facility] Other 07-21-2021 16:05-0400 Body temperature 96.2 [degF] Lilian Ferreira Other [facility] Other 07-21-2021 16:05-0400 Body weight 68.95 kg Lilian Ferreira Other [facility] Other 07-21-2021 16:05-0400 Diastolic blood pressure 95 mm[Hg] Lilian Ferreira Other [facility] Other 07-21-2021 16:05-0400 Respiratory rate 18 /min Lilian Ferreira Other [facility] Other 07-21-2021 16:05-0400 SaO2% (BldA) [Mass fraction] 99 % Lilian Ferreira Other [facility] Other 07-21-2021 16:05-0400 Systolic blood pressure 132 mm[Hg] Lilian Ferreira Other [facility] Other 06-22-2021 14:20-0400 Body height 161.29 cm Adilia Cardenasault Other [facility] Other 06-22-2021 14:20-0400 Body mass index (BMI) [Ratio] 25.98 kg/m2 Adilia Rosa M Other [facility] Other 06-22-2021 14:20-0400 Body temperature 96.4 [degF] Adilia Rosa M Other [facility] Other 06-22-2021 14:20-0400 Body weight 67.59 kg Adilia Mederos Other [facility] Other 06-22-2021 14:20-0400 Diastolic blood pressure Adilia Mederos Other [facility] Other 06-22-2021 14:20-0400 Respiratory rate 18 /min Adilia Mederos Other [facility] Other 06-22-2021 14:20-0400 SaO2% (BldA) [Mass fraction] 98 % Adilia Mederos Other [facility] Other 06-22-2021 14:20-0400 Systolic blood pressure 111 mm[Hg] Adilia Mederos Other [facility] Other Encounters Encounter Date Encounter Type Care Provider Facility Start: 03-14-2024 End: 03-14-[address] [facility] Start: 02-28-2024 End: 02-28-2024 ambulatory DO [place] Work Phone: [facility] Work Phone: Start: 02-28-2024 End: 02-28-2024 Departed Referred DO [place] Work Phone: [facility] Start: 02-20-2024 End: 02-20-2024 ambulatory [facility] Start: 01-15-2024 End: 01-16-2024 ambulatory Meet Harp MD Facility:[facility] Start: 12-04-2023 End: 12-05-2023 ambulatory Meet Harp MD Facility: [facility] Start: 11-06-2023 End: 11-07-2023 ambulatory Meet Harp MD Facility:[facility] Start: 10-09-2023 End: 10-10-2023 ambulatory Meet Harp MD Facility:[facility] Start: 08-25-2023 End: 08-25-2023 ambulatory ALIZA AGUILAR Facility:[facility] Start: 08-25-2023 End: 08-25-2023 Office outpatient visit 15 minutes Aliza Aguilar MD Work Phone: [facility] Comment on above: Hand arthritis (Prim maurisio Dx) Start: 08-21-2023 End: 08-22-2023 ambulatory Meet Harp MD Facility:[facility] Start: 08-19-2023 Letter encounter Yesy Covarrubias OT Work Phone: [facility] Start: 07-31-2023 End: 08-01-2023 ambulatory Meet Harp MD Facility:[facility] Start: 07-24-2023 End: 07-25-2023 ambulatory Meet Harp MD Facility:[facility] Start: 07-20-2023 End: 07-20-2023 Patient encounter procedure DO [place] Work Phone: [facility]-MRI [address] Work Phone: Start: 07-20-2023 End: 07-20-2023 ambulatory DO [place] Work Phone: [facility] Work Phone: Start: 07-10-2023 End: 07-11-2023 ambulatory [facility] Start: 06-16-2023 End: 06-17-2023 ambulatory UNKNOWN PROVIDER [facility] Start: 06-16-2023 End: 06-16-2023 Office outpatient visit 25 minutes Aliza Aguilar MD Work Phone: [facility] Comment on above: Left hand pain (Prim maurisio Dx) Start: 06-16-2023 End: 06-16-2023 Subsequent hospital visit by physician [facility] Op Op X-Ray 1 Work Phone: [facility] Diag Radiology Comment on above: Left hand pain Start: 02-07-2023 End: 02-08-[address] [place] Facility:[facility] Start: 01-27-2023 End: 01-28-[address] [place] Facility:[facility] Start: 01-23-2023 End: 02-22-2023 ambulatory DUARTE H CODY Facility:[facility] Start: 01-16-2023 Encounter for genera l adult medical examination without abnormal findings DR [place] [facility] Start: 01-12-2023 End: 01-13-[address] [...] [facility] Start: 05-09-2022 End: 05-09-2022 ambulatory Adilia Mederos Other [facility] [employer] Other Start: 05-09-2022 Office outpatient vi sit [...] Tdap) Booster [facility] Start: 01-13-2028 Cholesterol [Mass/volume] in Serum or Plasma Cholesterol [facility] Start: 08-25-2023 End: 08-25-2023 Patient encounter procedure 08/25/2023 11:30 AM EST [facility] [address] [place] [address] C[address] Orthoped[address] [place] [address] Aliza Aguilar MD [address] [place] [address] [facility] Start: 07-20-2023 XR pre/post mri xray XR pre/post mri xray [facility] Start: 07-20-2023 [facility] Start: 07-20-2023 MR Wrist - left WO contrast [facility] Start: 07-20-2023 MRI of left wrist MR wrist LT wo con [facility] Start: 07-20-2023 MR Hand - left WO contrast [facility] Start: 07-20-2023 MRI of left hand MR hand LT wo con [facility] Start: 06-25-2023 Influenza vaccination [facility] Start: 06-16-2023 End: 06-16-2024 MR Wrist - left WO contrast MR WRIST LEFT W/O Imaging Routine Left hand pain Expected: 06/16/2023, Expires: 06/16/2024 [facility] Work Phone: Comment on above: Expected: 06/16/2023 , Expires: 06/16/2024 Start: 05-26-2023 COVID-19 Vaccine (2022- season) COVID-19 Vaccine ( season) [facility] Start: 05-26-2023 Influenza vaccination Influenza Vacc ine [...] of colon [facility] Start: 1999 Screening for malign ant neoplasm of breast Mammography [facility] Start: 02-11-1980 Screening for malign ant neoplasm of cervix Pap Smear [facility] Start: 1977 Hepatitis C screening Hepatitis C An tibody [facility] Start: 1974 HIV screening HIV Test [facility] Start: 1959 COVID-19 Vaccine ( formulation) COVID-19 Vaccine ( formulation) [facility] Start: 1960 Screening for malign ant neoplasm of colon Colonoscopy [facility] Immunizations Immunization Date Immunization Notes Care Provider [facility] 08-11-2023 influenza, injectabl e, quadrivalent, preservative free Aliza Aguilar MD Work Phone: [facility] 08-11-2023 Respiratory syncytia l virus (RSV), vaccine, bivalent, protein subunit RSV prefusion F, diluent reconstituted, 0.5 mL, preservative free (WIQ=478) Aliza Aguilar MD Work Phone: [facility] 06-18-2022 influenza, injectabl e, quadrivalent, preservative free Aliza Aguilar MD Work Phone: [facility] 06-18-2022 influenza virus vacc ine, unspecified formulation Aliza Aguilar MD Work Phone: [facility] 02-05-2022 Pfizer Monovalent (1 2+ yrs) SARS-COV-2 (COVID-19) vaccine, mRNA, spike protein, LNP, pres. free, 30 mcg/0.3mL dose, betito-sucrose (HJA=800) Aliza Aguilar MD Work Phone: [facility] 08-11-2021 influenza, injectabl e, quadrivalent, preservative free Yesy Covarrubias OT Work Phone: [facility] 08-11-2021 influenza virus vacc ine, unspecified formulation Yesy Marci OT Work Phone: [facility] 07-24-2020 zoster vaccine recombinant K athryn Marci OT Work Phone: [facility] 07-11-2020 Influenza, injectabl e, Madin Christal Canine Kidney, preservative free, quadrivalent Yesy Marci OT Work Phone: [facility] 04-18-2020 zoster vaccine recombinant K athryn Marci OT Work Phone: [facility] 08-28-2019 Influenza, injectabl e, Madin Christal Canine Kidney, preservative free, quadrivalent Yesy Marci OT Work Phone: [facility] 07-01-2019 influenza, high dose seasonal, preservative-free Yesy Marci OT Work Phone: [facility] 06-25-2019 pneumococcal polysac charide vaccine, 23 valent Yesy Marci OT Work Phone: [facility] 07-06-2018 influenza, injectabl e, quadrivalent, contains preservative Yesy Marci OT Work Phone: [facility] 06-04-2018 tetanus toxoid, redu karen diphtheria toxoid, and acellular pertussis vaccine, adsorbed Yesy Marci OT Work Phone: [facility] 08-19-2017 influenza, injectabl e, quadrivalent, preservative free Yesy Marci OT Work Phone: [facility] 08-09-2017 influenza, injectabl e, quadrivalent, contains preservative Yesy Marci OT Work Phone: [facility] 08-01-2016 influenza, injectabl e, quadrivalent, preservative free Yesy Marci OT Work Phone: [facility] 07-11-2015 influenza, injectabl e, madin christal canine kidney, preservative free Yesy Marci OT Work Phone: [facility] 07-11-2015 pneumococcal conjuga te vaccine, 13 valent Yesy Marci OT Work Phone: [facility] 08-13-2009 novel influenza-H1N1 -09, preservative-free, injectable Yesy Covarrubias OT Work Phone: [facility] 07-17-2009 influenza virus vacc ine, unspecified formulation Yesy Covarrubias OT Work Phone: [facility] 08-15-2008 influenza virus vacc ine, unspecified formulation Yesy Covarrubias OT Work Phone: [facility] Payers Date Payer Category Payer Self-pay [id number] 2018 Unknown [id number] 2013 Medicare [id number] [id number] [id number] 1959 [facility] Shield [id number] 2.16.840.1.348098.19 1960 Medicare [id number] 2.16.840.1.662898.19 1959 Unknown [id number] 2.16.840.1.319193.3.579.2.593 1959 Unknown [id number] 2.16.840.1.677083.3.579.2.59 1959 Unknown [id number] 2.16.840.1.821135.3.579.2.593 1959 Unknown [id number] 2.16.840.1.537099.3.579.2.59 1959 Unknown [id number] 2.16.840.1.453180.3.579.2.593 1959 Unknown [id number] 2.16.840.1.486991.3.579.2.59 1959 Unknown [id number] 2.16.840.1.814811.3.579.2.593 1959 Unknown [id number] 2.16.840.1.929931.3.579.2.593 1959 Unknown [id number] 2.16.840.1.734908.3.579.2.593 1959 Unknown [id number] 2.16.840.1.046661.3.579.2.593 1959 Unknown [id number] 2.16.840.1.468500.3.579.2.593 1959 Unknown [id number] 2.16.840.1.690286.3.579.2.593 1959 Unknown [id number] 2.16.840.1.148577.3.579.2.593 1959 Unknown [id number] 2.16.840.1.235976.3.579.2.593 1959 Unknown [id number] 2.16.840.1.685513.3.579.2.593 1959 Unknown [id number] 2.16.840.1.267721.3.579.2.593 1959 Unknown [id number] 2.16.840.1.289024.3.579.2.593 1959 Unknown [id number] 2.16.840.1.875642.3.579.2.593 1959 Unknown [id number] 2.16.840.1.738863.3.579.2.593 1959 Unknown [id number] 2.16.840.1.821968.3.579.2.593 1959 Unknown [id number] 2.16.840.1.394388.3.579.2.732 1959 Unknown [id number] 2.16.840.1.674358.3.579.2.732 1959 Unknown [id number] 2.16.840.1.167576.3.579.2.732 1959 Unknown [id number] 2.16.840.1.339848.3.579.2.196 1959 Unknown [id number] 2.16.840.1.414697.3.579.2.196 1959 Unknown [id number] 2.16.840.1.507543.3.579.2.196 1959 Unknown [id number] 2.16.840.1.494418.3.579.2.196 1959 Unknown [id number] 2.16.840.1.015833.3.579.2.196 1959 Unknown [id number] 2.16.840.1.273964.3.579.2.196 1959 Unknown [id number] 2.16.840.1.672951.3.579.2.196 1959 Unknown [id number] 2.16.840.1.674953.3.579.2.196 1959 Unknown [id number] 2.16.840.1.520899.3.579.2.1286 1959 Unknown [id number] 2.16.840.1.701240.3.579.2.1286 Medicare Medicare Nonpatient [id number] Unknown [id number] 2.16.840.1.057390.3.579.2.531 Unknown [id number] 2.16.840.1.146853.3.579.2.531 Social History Date Type Detail Facility Unknown if ever smoked [facility] Other Sex Assigned At [facility] Other Start: 11-18-2018 End: 05-31-2019 Tobacco smoking status NHIS [facility] History of tobacco use Current smoker [facility] Start: 05-31-2019 Tobacco use and exposure Smokeless tobacco non-user [facility] Start: 04-07-2020 Alcohol intake Lifetime non-d han (finding) [facility] Start: 07-09-2019 History SDOH Alcohol Frequency 1 [facility] Start: 1960 Sex Assigned At Not on file [facility] Start: 1960 Sex Assigned At Female F [facility] Medical Equipment Procedure Code Equipment Code Equipment Origin al Text Equipment Identifier Dates Sherwood 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 Patient Office Note or Post OP Note Name:Madan Perry Date: 08/25/2023 CC: left wrist pain at [facility] area No chief complaint on file. EXAM: [...] of this patient. Aliza Aguilar MD [facility] 08/25/2023 [id number] Madan Perry The patient requested an injection [...] a dressing applied. documented in this encounter [facility] 06-16-2023 Note Addended by: ALIZA AGUILAR on: 06/16/2023 11:34 AM Modules accepted: Orders [facility] 06-16-2023 Miscellaneous Notes Addended by: ALIZA AGUILAR on: 06/16/2023 11:34 AM Modules accepted: Orders documented in this encounter [facility] 06-16-2023 History of Presen t [...] continues on coumadin. documented in this encounter [facility] 05-09-2022 Evaluation note Encounter Date [...] Xray that was ordered outpatient by PCP [facility] Other 08-10-2022 NotePROCEDURE: XR FOOT RT MIN 3 VIEWS COMPARISON: None. HISTORY: Pain in right foot FINDINGS: BONES:No fracture, acute abnormality, or significant arthropathy. Mild enthesopathic spurring of the calcaneus at the Achilles insertion SOFT TISSUES:Negative. No visible soft tissue swelling. EFFUSION:None visible. OTHER: Negative. IMPRESSION: No acute abnormality Electronically authenticated by: MARTINEZ HARVEY Date: 2022-05-04 16:22[facility]10-27-2021 Evaluation note* Encounter Date Diagnosis Assessment Notes Treatment Notes Treatment Clinical Notes Jun, Swelling of left elbow (ICD-10 - M25.422) Jun, Other Patient refe rred to the ER due to swelling, ecchymosis, pain of her left elbow with no known injury. It is felt the patient needs blood work to evaluate [facility] Other 09-28-2021 Evaluation note* Encounter Date Diagnosis Assessment Notes Treatment Notes Treatment Clinical Notes May, Bee sting, undetermined intent, initial encounter (ICD-10 - T63.444A) May continue Xyzal and Benadryl as directed. [facility] Other Evaluation note* Diagnosis Left hand pain- Primary Pain in limb Left hand pain Pain in limb [facility] Left [facility] pain Pain in limb [facility] Phone: Evaluation note* Diagnosis [...] second t roseann Hospitalization History see above [facility] Other Summary Purpose Family History No Family [...] Left hand pain Aliza Aguilar MD [facility] [address] [place] [address] Referral ID Status Reason Start Date Expiration Date Visits Requested Visits Authorized [id number] Authorized Patient Preference 06/16/2023 06/16/2024 3 3 Comments Near home, [place], [place] Specialty Diagnoses / Procedures Referred By Randi carodna Referred To Contact Radiology Diagnoses Left hand pain Procedures MR WRIST LEFT W/O Aliza Aguilar MD [address] [place] [address] [facility] MRI [address] [place] [id number] Referral ID Status Reason Start Date Expiration Date V isits Requested Visits Authorized [id number] Authorized 06/16/2023 06/15/2024 1 1 Specialty Diagnoses / Procedures Referred By Randi t Referred To Contact Radiology Diagnoses Left hand pain Procedures XR HAND LEFT 3 VIEWS [facility] [address] [place], [place] [id number] [facility] [address] [place] [address] [place] [address] Referral ID Status Reason Start Date Expiration Date Visits Re quested Visits Authorized [id number] Closed 06/16/2023 06/15/2024 1 1 Chief Complaint and Reason for Visit Chief Complaint median nerve karel krista Chief Complaint Unknown Additional Source Comments INFORMATION SOURCE (unrecogn ized section and content) DATE CREATED AUTHOR 05/27/2021 [facility] DATE CREATED AUTHOR AUTHOR'S ORGANIZ ATION 03/03/2023 [facility] DATE CREATED AUTHOR AUTHOR'S ORGANIZ ATION 08/28/2023 [facility] DATE CREATED AUTHOR AUTHOR'S ORGANIZ ATION 12/23/2023 [facility] DATE CREATED AUTHOR AUTHOR'S ORGANIZ ATION 02/01/2024 [facility] DATE CREATED AUTHOR AUTHOR'S ORGANIZ ATION 02/29/2024 [facility] DATE CREATED AUTHOR AUTHOR'S ORGANIZ ATION 03/16/2024 [facility] REASON FOR VISIT (unrecogniz ed section and content) Reason Comments Hand/finger symptoms Specialty Diagnoses / Procedures Referred By Randi t Referred To Contact Radiology Diagnoses Left hand pain Procedures XR HAND LEFT 3 VIEWS [facility] [address] [place] [id number] [facility] [address] [place] [address] Dr [place] [phone] Referral ID Status Reason Start Date Expiration Date Visits Re quested Visits Authorized [id number] Closed 06/16/2023 06/15/2024 1 1 Reason Comments Hand/finger symptoms Care Teams (unrecognized sec tion and content) Reception Manager Relationship Specialty Start Date End Date Yesy Covarrubias OT [address] [place] [address] Occupational Therapist Occupational Therapy 06/30/20 Aliza Aguilar MD [address] [place] [phone] Physician [facility] 06/30/20 Reception Manager Relationship Specialty Start Date End Date Yesy Covarrubias OT [address] [place] [address] [place] [address] Occupational Therapist Occupational Therapy 06/30/20 Aliza Aguilar MD [address] [place] [phone] Physician Orthopaedic Hand [facility] 06/30/20 Reception Manager Relationship Specialty Start Date End Date Yesy Covarrubias OT [address] [place] [address] Occupational Therapist Occupational Therapy 06/30/20 Aliza Aguilar MD [address] [place] [address] Physician [facility]opa[facility] 06/30/20 Team Status: Active Member Role Status Dates [place] DO Primary Care Provider Active Team Status: Inactive Member Role Status Dates [place] DO Primary Care Provider Active Aliza Aguilar Attending Provider Active Reception Manager Relationship Specialty Start Date End Date Yesy Covarrubias OT [address] [place] [address] Occupational Therapist Occupational Therapy 06/30/20 Aliza Aguilar MD [address] [place] [address] Physician Orthopaedic Hand [facility] 06/30/20 Reception Manager Relationship Specialty Start Date End Date Yesy Covarrubias OT [address] [place] [address] Occupational Therapist Occupational Therapy 06/30/20 Aliza Aguilar MD [address] [place] [address] Physician Orthopaedic Hand Service 06/30/20 Team Status: [...] BE BASED ON THE PRIMARY CLINICAL RECORDS. [employer] provides no warranty or guarantee of the accuracy or completeness of information in this document.
[2024-05-15 11:39] LABS: Microalbumin Urine Random <1.3 mg/dL (<=30.0)
[2024-05-15 11:52] LABS: Percent Iron Saturation 3.2 %
[2024-05-15 11:53] LABS: Estimated Average Glucose 131 mg/dL; Glycohemoglobin A1C 6.2 % (4.5-6.2)
[2024-05-15 12:02] LABS: Alanine Aminotransferase 24 U/L (14-59); Albumin Globulin Ratio 0.8; Albumin Level 3.3 g/dL (3.4-5.0); Alkaline Phosphatase 98 U/L (46-116); Aspartate Amino Transferase 21 U/L (15-37); BUN Creatinine Ratio 12.1; Bilirubin Total 0.4 mg/dL (0.2-1.0); Calcium 9.2 mg/dL (8.5-10.1); Carbon Dioxide 26.3 mmol/L (21.0-32.0); Chloride 95 mmol/L (98-107); Chol HDL Ratio 1.6; Cholesterol 178 mg/dL (<=200); Estimated GFR (African America >60 (>=60); Estimated GFR (Non-African Ame >60 (>=60); Free T3 2.56 pg/mL (2.18-3.98); Globulin 4.4 g/dL; Glucose 101 mg/dL (74-106); HDL Cholesterol 108 mg/dL (40-60); Magnesium 1.9 mg/dL (1.8-2.4); Potassium 4.3 mmol/L (3.5-5.1); Sodium 129 mmol/L (136-145); Thyroid Stimulating Hormone 1.796 uIU/mL (0.358-3.740); Total Protein 7.7 g/dL (6.4-8.2); Triglycerides 93 mg/dL (<=150); VLDL CHOLESTEROL 18.6 mg/dL
[2024-05-15 12:18] LABS: Free T4 1.54 ng/dL (0.76-1.46)
[2024-05-16 15:10] LABS: ANA Direct Negative (Negative)
== END 2024-05-15 10:24 | disposition home or self-care (01) ==
LOC: LAB 10:25
PROVIDERS: PCP Family Medicine; Visit Provider Family Medicine
DX: R73.03 Prediabetes (principal); E78.00 Pure hypercholesterolemia, unspecified; R53.82 Chronic fatigue, unspecified; I10 Essential (primary) hypertension
CPT/HCPCS: 36415; 80053; 80061; 82043; 82570; 82607; 82728; 82746; 83036; 83540; 83550; 83735; 84439; 84443; 84481; 86038

== ENCOUNTER 2024-05-20 14:38 | Outpatient (OUT) | payer BC, MEDICARE, SELFPAY ==
--- NOTE | 2024-05-20 15:36 | P.CN_ITS ---
Consult Note: HPI Data of Consult Patient: known to practice within the last 3 years Consult date: 05/20/24 Requesting Physician: Etta Moya NP Primary Care Provider: [place], Consult Narrative Reason for consult: mid back pain Narrative: 64yof who presents for assessment. worsening midback pain that radiates laterally. previous imaging was consistent with multiple levels of disc bulging. continues in a series of provider directed home exercises >6 weeks, without benefit. uses norco. denies adverse med side effects. cc:: CC: Etta Moya NP Review of Systems ROS Status of ROS 10 or more systems reviewed and unremark able except as noted in history and below [facility] Medical History (Updated 02/23/24 @ 14:20 by Keisha Jones NP) Anemia ?D64.9 - Anemia, unspecified (ICD-10) History of blood transfusion (1997) ?Z92.89 - Personal history of other medical treatment (ICD-10) Panic attacks ?F41.0 - Panic disorder [episodic paroxysmal anxiety] (ICD-10) Depression ?F32.A - Depression, unspecified (ICD-10) Anxiety ?F41.9 - Anxiety disorder, unspecified (ICD-10) COVID-19 ?U07.1 - COVID-19 (ICD-10) Chronic obstructive pulmonary disease ?J44.9 - Chronic obstructive pulmonary disease, unspecified (ICD-10) Migraine ?G43.909 - Migraine, unspecified, not intractable, without status migrainosus (ICD-10) Urinary tract infection ?N39.0 - Urinary tract infection, site not specified (ICD-10) Presence of vena cava filter ?Z95.828 - Presence of other vascular implants and grafts (ICD-10) Hypertension ?I10 - Essential (primary) hypertension (ICD-10) Osteoarthritis ?M19.90 - Unspecified osteoarthritis, unspecified site (ICD-10) Hypothyroid ?E03.9 - Hypothyroidism, unspecified (ICD-10) Stage 3 chronic kidney disease ?N18.30 - Chronic kidney disease, stage 3 unspecified (ICD-10) Colitis ?K52.9 - Noninfective gastroenteritis and colitis, unspecified (ICD-10) DVT (deep venous thrombosis) ?I82.409 - Acute embolism and thrombosis of unspecified deep veins of unspecified lower extremity (ICD-10) Surgical History S/P epidural steroid injection ?Z92.241 - Personal history of systemic steroid therapy (ICD-10) H/O hand surgery ?Z98.890 - Other specified postprocedural states (ICD-10) History of carpal tunnel release ?Z98.890 - Other specified postprocedural states (ICD-10) History of bladder suspension procedure ?Z98.890 - Other specified postprocedural states (ICD-10) ?Z87.448 - Personal history of other diseases of urinary system (ICD-10) History of hernia repair ?Z98.890 - Other specified postprocedural states (ICD-10) ?Z87.19 - Personal history of other diseases of the digestive system (ICD-10) Hx of cholecystectomy ?Z90.49 - Acquired absence of other specified parts of digestive tract (ICD- 10) H/O colonoscopy ?Z98.890 - Other specified postprocedural states (ICD-10) History of esophagogastroduodenoscopy (EGD) ?Z98.890 - Other specified postprocedural states (ICD-10) History of decompression of ulnar nerve ?Z98.890 - Other specified postprocedural states (ICD-10) History of appendectomy ?Z90.49 - Acquired absence of other specified parts of digestive tract (ICD- 10) History of hysterectomy ?Z90.710 - Acquired absence of both cervix and uterus (ICD-10) Delivery by section History of laparoscopy ?Z98.890 - Other specified postprocedural states (ICD-10) Family History Other Cancer Family history of aneurysm Family history of diabetes mellitus Family history of heart disease Family history of hypertension Social History Within the past year, how often did you have a drink containing alcohol: never Score interpretation: A score less than 3 is consistent with normal alcohol consumption. Smoking status: Former smoker Non-prescribed substance use: denies use Highest level of school completed/degree received: some college, no degree Meds Home Medications and Allergies Home Medications ?Medication ?Instructions ?Recorded ?Confirmed ?Type acyclovir 400 mg tablet 400 mg PO DAILY 06/16/23 05/13/24 History amitriptyline 100 mg tablet 100 mg PO BEDTIME 06/16/23 05/13/24 History aripiprazole 10 mg tablet 10 mg PO BEDTIME 06/16/23 05/13/24 History atorvastatin 10 mg tablet 10 mg PO QDAY 06/16/23 05/13/24 History biotin 10,000 mcg-keratin 100 mg 1 tab PO QDAY 06/16/23 05/13/24 History tablet (Biotin Plus Keratin) pidvvmwbiy-ybyzmynjoizte-chvnetex 1 cap PO Q6H PRN pain 06/16/23 05/13/24 History 50 mg-300 mg-40 mg capsule cholecalciferol (vitamin D3) 50 50 mcg PO DAILY 06/16/23 05/13/24 History mcg (2,000 unit) capsule (Vitamin D3) cyanocobalamin (vitamin B-12) 1,000 mcg IM .monthly 06/16/23 05/13/24 History 1,000 mcg/mL injection solution fremanezumab-vfrm 225 mg/1.5 mL 225 mg subcut .monthly 06/16/23 05/13/24 History subcutaneous auto-injector (Ajovy) hydrochlorothiazide 12.5 mg tablet 12.5 mg PO QDAY 06/16/23 05/13/24 History hydrocodone 5 mg-acetaminophen 325 1 tab PO TID PRN pain 06/16/23 05/02/24 History mg tablet hydroxyzine HCl 25 mg tablet 25 mg PO BEDTIME 06/16/23 05/13/24 History levothyroxine 125 mcg tablet 125 mcg PO .every morning 06/16/23 05/13/24 History linaclotide 72 mcg capsule 145 mcg PO QDAY 06/16/23 05/13/24 History (Linzess) lisinopril 5 mg tablet 5 mg PO QDAY 06/16/23 05/13/24 History melatonin 10 mg capsule 10 mg PO DAILY 06/16/23 05/13/24 History montelukast 10 mg tablet 10 mg PO QDAY 06/16/23 05/13/24 History omeprazole 40 mg capsule,delayed 40 mg PO BID 06/16/23 05/13/24 History release potassium chloride 10 mEq 20 meq PO BID 06/16/23 05/13/24 History tablet,extended release(part/cryst) vilazodone 40 mg tablet 40 mg PO QDAY 06/16/23 05/13/24 History vit C 250 mg-vit E 90 mg-zinc 40 1 tab PO BID 06/16/23 05/13/24 History mg-copper 1 gv-kiytso-sctkyb capsule (PreserVision AREDS-2) warfarin 1 mg tablet 1 mg PO .qtuesday 06/16/23 05/13/24 History warfarin 2 mg tablet 2 mg PO QDAY 06/16/23 05/13/24 History aspirin 81 mg tablet,delayed 81 mg PO DAILY 07/17/23 05/13/24 History release (Adult Aspirin Regimen) meclizine 12.5 mg tablet 12.5 mg PO BID PRN dizziness 07/17/23 05/13/24 History ondansetron HCl 4 mg tablet 4 mg PO Q12H PRN nausea and 07/17/23 05/13/24 History vomiting fluticasone fur. 200 mcg-umeclid 1 inh inhalation Q24H 02/23/24 05/13/24 History 62.5 mcg-vilant 25 mcg inhalat.powder (Trelegy Ellipta) tizanidine 4 mg tablet 4 mg PO TID 02/23/24 05/13/24 History sucralfate 1 gram tablet 1 g PO Q6H 4 weeks #112 tabs 02/28/24 05/13/24 Rx lidocaine 5 % topical patch 1 patch topical Q24H #30 ea 02/29/24 05/13/24 Rx buprenorphine 5 mcg/hour weekly 1 patch transdermal Q7D #4 ea 05/20/24 Rx transdermal patch (Butrans) Allergies Allergy/AdvReac Type Severity Reaction Status Date / Time Iodinated Contrast Media Allergy Unknown Verified 05/13/24 07:48 latex Allergy Unknown Verified 05/13/24 07:48 erythromycin base AdvReac Severe Unknown Verified 05/13/24 07:48 Penicillins AdvReac Severe Anaphylaxis Verified 05/13/24 07:48 cephalexin [From Keflex] AdvReac Intermediate Hives Verified 05/13/24 07:48 doxycycline AdvReac Intermediate Hives Verified 05/13/24 07:48 iodine Adv[facility]ac Intermediate Hives Verified 05/13/24 07:48 morphine AdvReac Intermediate Vomiting Verified 05/13/24 07:48 oxycodone [From Percocet] AdvReac Intermediate Vomiting Verified 05/13/24 07:48 procaine [From Novocain] AdvReac Intermediate Migraine Verified 05/13/24 07:48 ciprofloxacin [From Cipro] AdvReac Mild Hives Verified 05/13/24 07:48 Exam Narrative Exam Narrative: Psych-alert and oriented x 3. Attentive and appropriate, constitutionally normal, displays normal mood and affect per situation. There are no obvious deficits in memory, reasoning, or intellect.? Skin-no obvious rashes, bruising, erythema noted to the patient's area of pain.? Extremities- extremities are warm with minimal edema and palpable pulses. Thoracic -tenderness to palpation noted in the thoracic spine and paraspinal musculature. Pain is not elicited with flexion, extension, and lateral rotation of the thoracic spine. Range of motion is not diminished with these motions. Facet loading maneuvers are negative.? Strength-noted to be unremarkable Sensory-no notable sensory deficits in the bilateral lower extremities to touch or pinprick in all dermatomal distributions with the exception to decreased sensation to the bilateral T5, 6, 7 dermatomal distribution Coordination remains intact.? Gait remains non-antalgic. Assessment and Plan Assessment and Plan (1) Thoracic radiculopathy: (2) Thoracic stenosis: (3) Thoracic spondylosis: Plan 64yof who presents for assessment. notes persistence of pain in midback region that has progressively gotten worse. she has worsening pain with laying. given her worsening pain, i will have her undergo thoracic mri without contrast. she is in agreement. meds reviewed. i will trial butrans patch 5mcg/hr. she expressed understanding. follow up after imaging.
== END 2024-05-20 14:39 | disposition home or self-care (01) ==
PROVIDERS: PCP Family Medicine; Visit Provider Nurse Practitioner
DX: M54.14 Radiculopathy, thoracic region (principal); M48.04 Spinal stenosis, thoracic region; M47.814 Spondylosis without myelopathy or radiculopathy, thoracic region
CPT/HCPCS: G0463

== ENCOUNTER 2024-05-27 01:42 | Outpatient (RCR) | payer BC, MEDICARE, SELFPAY | END 2024-06-24 23:42 | disposition home or self-care (01) | LOC: MM 01:42 | PROVIDERS: PCP Family Medicine; Visit Provider Internal Medicine | DX: Z51.81 Encounter for therapeutic drug level monitoring (principal); Z79.01 Long term (current) use of anticoagulants | CPT/HCPCS: 85610; G0463 ==

== ENCOUNTER 2024-05-30 12:15 | Outpatient (OUT) | payer BC, MEDICARE, SELFPAY ==
--- NOTE | 2024-05-30 | MR_ITS ---
[address] [address] Patient Name: MADAN PERRY MRN: [facility]:[id number] date: 1960 Sex: F Assigned Patient Location: MRI Current Patient Location: MRI Accession/Order Number: [id number] Exam Date: 05/30/2024 12:45 Report Date: 05/30/2024 17:24 At the request of: SERAFIN EVERETT Procedure: MR thoracic spine wo con EXAM: MR thoracic spine wo con HISTORY: thoracic stenosis COMPARISON: 07/18/2023 TECHNIQUE: MRI of the thoracic spine without contrast. Sequences obtained by standard department protocol. FINDINGS: No abnormal signal of the thoracic spinal cord. Vertebral body height is preserved. No spinal canal stenosis. No neural foraminal stenosis. Minimal posterior disc bulges of the thoracic spine. No acute bone marrow edema. Cyst of the right kidney upper pole measuring 1.2 cm (axial T2 image 35). MR/MR thoracic spine wo con IMPRESSION: 1. No spinal canal stenosis or neural foraminal stenosis of the thoracic spine. 2. No abnormal signal of the thoracic spinal cord. 3. Vertebral body height is preserved. No acute fractures. Electronically authenticated by: ANIBAL HIGHTOWER Date: 05/30/2024 17:24
--- OUTSIDE RECORDS SUMMARY | 2024-05-30 12:34 | XMS_ITS | CCD ---
Author Organization [facility] Care Team Providers Care Science Analyst Name Role Phone Adilia Mederos Unavailable Lilian Ferreira Unavailable Yesy Covarrubias OT Unavailable Aliza Aguilar MD Unavailable JAYA, DR TANK Aguillon Primary Care Unavailable LAKE, [...] Care Unavailable FAWWAD, DUARTE H Attending Unavailable ALKE, DR TANK Aguillon Primary Care Unavailable FAWWAD, [...] UNKNOWN Admitting Unavailable PROVIDER, UNKNOWN Attending Unavailable Lake, DO Tank Aguillon Primary Care Provider [phone] DO Aliza Spencer Attending Provider Aliza Spencer Admitting Unavailable Aliza Spencer Attending Unavailable Lake, Tank A Primary Care Unavailable SedrickAliza Admitting Unavailable SedrickAliza davenport Attending Unavailable Lake, Tank A Primary Care Unavailable EBONIE SIMPSON A Attending Unavailable LAKE, TANK A Referring Unavailable LAKE, TANK A Primary Care Unavailable ENRICOSTEVEN PADGETT F Attending Unavailable LAKE, TANK A Referring Unavailable LAKE, TANK A Primary Care Unavailable Giedraitis MD, Andrius Vytautas Attending Unavailable [...] Acetaminophen / oxyCODONE Drug Allergy stomach upset Adynxx Other (3 sources) Adhesive Tape Propensity to adverse reactions rash Adynxx Other (5 sources) Cephalexin; Translations: [CEPHALEXIN] Drug Allergy 12-22-[address] [facility] (10 sources) Erythromycin; Translations: [ERYTHROMYCIN] Drug Allergy 12-22-19 06 Other [facility] (7 sources) Iodine; Translations: [iodine] Drug Allergy 01-31-20 13 rash [facility] (6 sources) Latex; Translations: [LATEX] Propensity to adverse reactions 12-22-19 06 [facility] (6 sources) Penicillin G Benzathine; Translations: [penicillin G benzathine] Drug allergy 12-11-[address] [facility] (3 sources) Procaine Drug Allergy headaches [facility] Other (2 sources) Cephalexin; Translations: [Keflex] Drug Allergy 01-31-20 13 anaphylaxis [facility] (1 source) Novocain Drug allergy Unknown [facility] Other (8 sources) Acetaminophen; Translations: [ACETAMINOPHEN] Drug [...] Drug Allergy 12-22-19 06 Other, Rash [facility] (9 sources) Doxycycline; Translations: [DOXYCYCLINE] Drug Allergy 01-24-20 Itching [facility] (6 sources) Penicillin G; Translations: [PENICILLIN G POTASSIUM] Drug Allergy 02-01-20 08 Anaphylactic Shock [facility] (7 sources) Penicillins; Translations: [PENICILLINS] Propensity to adverse reactions to drug 12-22-19 06 Anaphylactic Shock [facility] (7 sources) Quinolones (Antibiotic); Translations: [QUINOLONES] Propensity to adverse reactions to drug 12-22-19 06 Respiratory Problems [facility] Work Phone: (6 sources) Sulfonamides (Antibiotic); Translations: [SULFA ANTIBIOTICS] Propensity to adverse reactions to drug 02-01-20 08 Rash [facility] (6 sources) Bandage Tape; Translations: [BANDAGE TAPE] Propensity to adverse reactions 09-03-20 13 Rash [facility] (10 sources) Erythromycin Base; Translations: [ERYTHROMYCIN BASE] Propensity to adverse reactions to drug 01-24-20 Other [facility] (7 sources) Iodides; Translations: [IODIDES] Propensity to adverse reactions to drug 10-31-19 14 Hives [facility] (6 sources) Other (Review Comments!); Translations: [OTHER (REVIEW COMMENTS!)] Propensity to adverse reactions to drug 07-22-20 19 Agitation [facility] Work Phone: (1 source) Ciprofloxacin Drug Allergy [facility] (1 source) Iodine (And Iodine Containting Drugs) Drug allergy (disorder) 01-31-20 13 [facility] (1 source) Latex Drug allergy (disorder) 01-31-20 13 [facility] (4 sources) Morphine; Translations: [MORPHINE] Drug Allergy 10-21-19 14 vomiting [facility] (1 source) Penicillins Drug allergy (disorder) 01-31-20 13 [facility] (1 source) Sulfonamides (Antibiotic) Drug allergy (disorder) 01-31-20 13 [facility] (1 source) Darvocet-N 100 Drug allergy (disorder) 01-31-20 13 [facility] (1 source) E.E.S. Drug allergy (disorder) 01-31-20 13 [facility] (3 sources) Adhesive Tape; Translations: [adhesive tape] Allergy to substance 12-11-19 rash [facility] (3 sources) oxyCODONE; Translations: [oxycodone] Drug Allergy 12-11-19 stomach upset [facility] (3 sources) Procaine; Translations: [procaine] Drug Allergy 12-11-19 23 headaches [facility] (1 source) Cephalexin Drug Allergy 12-11-19 23 [facility] (1 source) Doxycycline Drug Allergy 12-11-19 23 [facility] (1 source) Latex Drug allergy (disorder) 12-11-19 [facility] (1 source) Morphine Drug Allergy 12-11-19 [facility] (1 source) Adhesive agent; Translations: [ADHESIVE] Propensity to adverse reactions to drug (disorder) 09-03-20 13 [facility] (1 source) Sulfonamides (Antibiotic); Translations: [SULFA (SULFONAMIDE ANTIBIOTICS)] Propensity to adverse reactions to drug (disorder) 12-22-19 [facility] (1 source) IODINATED CONTRAST MEDIA; Translations: [IODINATED CONTRAST MEDIA] Propensity to adverse reactions to drug (disorder) 12-22-19 [facility] (1 source) ADHESIVE TAPE-SILICONES; Translations: [ADHESIVE TAPE-SILICONES] Propensity to adverse reactions to drug (disorder) 09-03-20 13 [facility] Repository Medications Current Medications Medication Drug Class(es) Dates Sig (Normalized) Sig (Original) acetaminophen 300 mg / butalbital 50 mg / caffeine 40 mg oral capsule (12 sources) Barbiturate, Central Nervous System Stimulant, Methylxanthine Start: 05-28-2024 take 1 capsule by mouth every eight hours Butalbital-Aceta minophen-Caff (Fioricet) 50-300-40 mg capsule Active 1 CAP PO Every 8 hours May 28, 2024 12:00am Butalbital-APAP- Caffeine 50-300-40 MG CAPS Take by mouth daily as needed. 0 Active take 1 capsule by mo gah every four hours Gpdotkyrxs-RXVC-Njqlsnxk 50-325-40 MG 1 capsule as needed Orally every 4 hrs Not-Taking Fioricet Active acetaminophen 325 mg / HYDROcodone bitartrate 5 mg oral tablet (11 sources) Opioid Agonist Start: 05-28-2024 take 1 tablet by mouth every eight hours Hydrocodone-Acetaminophen Active 1 TAB PO Every 8 hours May 28, 2024 12:00am take 1 tablet by mouth once hydr ocodone-acetaminophen (NORCO) 5-325 mg per tablet Take 1 Tablet by mouth. 0 Active HYDROcodone-Acet aminophen 7.5-300 MG Orally Not-Taking [place] Active acyclovir 400 mg oral tablet (9 sources) Herpesvirus Nucleoside Analog DNA Polymerase Inhibitor, Herpes Simplex Virus Nucleoside Analog DNA Polymerase Inhibitor, Herpes Zoster Virus Nucleoside Analog DNA Polymerase Inhibitor Start: 05-28-2024 take 400 mg by mouth once daily Acyclovir Active 400 MG PO Daily May 28, 2024 12:00am take 1 tablet by mouth once laura y acyclovir (ZOVIRAX) 400 MG tablet Take 400 [...] as needed. 0 Active ALPRAZolam Not-T aking amitriptyline hydrochloride 100 mg oral tablet (4 sources) Tricyclic Antidepressant Start: 05-28-2024 take 100 mg by mouth once daily Amitriptyline Active 100 MG PO Daily May 28, 2024 12:00am Amitriptyline HC l Active ARIPiprazole 10 mg oral tablet (1 source) Atypical Antipsychotic Start: 05-28-2024 take 10 mg by mouth once daily Aripiprazole Active 10 MG PO Daily May 28, 2024 12:00am atorvastatin 10 mg oral tablet (5 sources) HMG-CoA Reductase Inhibitor Start: 05-28-2024 take 10 mg by mouth once daily Atorvastatin Active 10 MG PO Daily May 28, 2024 12:00am take 1 tablet by mouth once laura y atorvastatin (LIPITOR) 10 MG tablet Take 10 mg by mouth daily. 0 Active 168 hr buprenorphine 0.005 mg/hr transdermal system (1 source) Partial Opioid Agonist Start: 05-28-2024 Buprenorphine Active TOPICAL May 28, 2024 12:00am Calcium (1 source) Phosphate Binder, Calcium Calcium Active Cequa (3 sources) Cequa Active citalopram 20 mg oral tablet (8 sources) Serotonin Reuptake Inhibitor take 1 tablet by mouth once daily citalopram (CELEXA) 20 MG tablet Indications: Brachial neuritis or radiculitis Take 20 mg by mouth daily. 0 Active CeleXA Active cyclobenzaprine hydrochloride 10 mg oral tablet (4 sources) Muscle Relaxant Start: 05-28-2024 take 10 mg by mouth once daily at bedtime Cyclobenzaprine Active 10 MG PO Daily at bedtime May 28, 2024 12:00am Cyclobenzaprine HCl Active Cyclobenzaprine HCl Not-Taking fexofenadine (5 sources) Histamine-1 Receptor Antagonist Fexofenadine HCl (DI ORAL) Take by mouth daily. 0 Active fluticasone (8 sources) Corticosteroid Start: take 1 puff(s) by inhalation twice daily Fluticasone Propionate Active 1 PUFF INHALATION Twice daily May 28, 2024 12:00am administer with spacer take 2 puff(s) by mouth twice da jaden fluticasone (FLOVENT HFA) 44 MCG/ACT inhaler Inhale 2 Puffs by mouth 2 times daily. 0 Active Flovent Diskus A ctive Dyivlmawswa-Afrddymjl-Rdvqgi er (1 source) Anticholinergic, Corticosteroid, beta2-Adrenergic Agonist Start: 05-28-2024 Dymsifwwipu-Aovmmzvcf-Kkjalm er (Trelegy Ellipta) 100-62.5-25 mcg blister with device Active 1 INH INHALATION Daily May 28, 2024 12:00am 1.5 ml fremanezumab-vfrm 150 mg/ml prefilled syringe (1 source) Start: 05-28-2024 Fremanezumab-Vfrm (Ajovy Autoinjector) 225 mg/1.5 mL auto-injector Active 225 MG SUBCUT every month May 28, 2024 12:00am hydroCHLOROthiazide 12.5 mg oral capsule (7 sources) Thiazide Diuretic t a k e 1 c a p s u l e b y m o u t h o n c e d a i l y hydrochlorothiazide (MICROZIDE) 12.5 MG capsule Take 12.5 mg by mouth daily. 0 Active take 1 tablet by lisa every twenty-four hours hydroCHLOROthiazide 25 MG 1 tablet Orall y Once a day for 30 day(s) Not-Taking hydrOXYzine hydrochloride 25 mg oral tablet (4 sources) Antihistamine Start: 05-28-2024 take 25 mg by mouth once daily at bedtime Hydroxyzine Hcl Active 25 MG PO Daily at bedtime May 28, 2024 12:00am hydrOXYzine HCl Active Lactobacillus acidophilus (1 source) Acidophilus Acti ve levocetirizine dihydrochloride 5 mg oral tablet (2 sources) Histamine-1 Receptor Antagonist Start: 05-28-20 take 1 tablet by mouth once daily Levocetirizine (Xyzal) 5 mg tablet Active 5 MG PO Daily May 28, 2024 12:00am Xyzal Active levothyroxine sodium 0.125 mg oral tablet (9 sources) l-Thyroxine Start: 05-28-2024 Levothyroxine Active MCG PO May 28, 2024 12:00am levothyroxine (S YNTHROID) 100 MCG tablet Indications: Brachial neuritis or radiculitis Take 125 mcg by mouth daily. 0 Active take 1 tablet by mouth once laura y levothyroxine (SYNTHROID) 100 MCG tablet Indications: Brachial neuritis or radiculitis Take 100 mcg by mouth daily. 0 Active Synthroid Active linaclotide 0.072 mg oral capsule (8 sources) Guanylate Cyclase-C Agonist Start: 05-28-2024 take 1 capsule by mouth once daily Linaclotide (Linzess) 72 mcg capsule Active 72 MCG PO Daily May 28, 2024 12:00am take 1 capsule by mouth once glenn ly linaclotide (Linzess) 72 MCG CAPS capsule Take 72 mcg by mouth daily. 0 Active Linzess Active lisinopril 5 mg oral tablet (7 sources) Angiotensin Converting Enzyme Inhibitor Start: 05-28-2024 take 5 mg by mouth once daily Lisinopril Active 5 MG PO Daily May 28, 2024 12:00am LISINOPRIL ORAL Take by mouth. 0 Active Lisinopril Activ e methylPREDNISolone 4 mg oral tablet (3 sources) Corticosteroid Start: 05-09-2022 methylPREDNISo lone 4 MG as directed Orally Once a day for 6 days Apr, Active Start: 06-22-2021 methylPREDNISo lone 4 MG as directed Orally Once a day for 6 days May, Active montelukast 10 mg oral tablet (9 sources) Leukotriene Receptor Antagonist Start: 05-28-2024 take 10 mg by mouth once daily Montelukast Active 10 MG PO Daily May 28, 2024 12:00am take 1 tablet by mouth once laura y montelukast (SINGULAIR) 10 MG tablet Indications: Brachial neuritis or radiculitis Take 10 mg by mouth daily. 0 Active Montelukast Sodi um Active NIFEdipine 10 mg oral capsule (1 source) Dihydropyridine Calcium Channel Ruben Start: 05-28-2024 take 10 mg by mouth twice daily Nifedipine Active 10 MG PO Twice daily May 28, 2024 12:00am omeprazole 40 mg delayed release oral capsule (9 sources) Proton Pump Inhibitor Start: 05-28-2024 take 40 mg by mouth once daily Omeprazole Active 40 MG PO Daily May 28, 2024 12:00am take 1 capsule by mouth once glenn ly omeprazole (PRILOSEC) 20 MG capsule Take 20 mg by mouth daily. 0 Active 12 hr orphenadrine citrate 1 00 mg extended release oral tablet (8 sources) Muscle Relaxant Orphenadrine Cit rate CR 100 MG TB12 Take by mouth 2 times daily. 0 Active take 1 tablet by lisa th every twelve hours at bedtime Orphenadrine Citrate 100 MG 1 tablet at bedtime Orally every 12 hrs Active phentermine hydrochloride 37.5 mg oral capsule (3 sources) Sympathomimetic Amine Anorectic Start: 05-28-2024 take 37.5 mg by mouth once daily 30 minutes after breakfast Phentermine Active 37.5 MG PO Daily May 28, 2024 12:00am must administer 30 minutes before or 1-2 hours after breakfast Phentermine HCl Active potassium chloride 20 meq extended release oral tablet (9 sources) Start: 05-28-2024 take 1 tablet by mouth once daily Potassium Chloride (K-Tab) 20 mEq tablet extended release Active 20 MEQ PO Daily May 28, 2024 12:00am Potassium Chlori de (KLOR-CON ORAL) Indications: Brachial neuritis or radiculitis Take by mouth 3 times daily. 0 Active Klor-Con M20 Act annamaria pseudoephedrine hydrochloride 30 mg oral tablet (1 source) alpha-Adrenergic Agonist Start: 05-28-2024 take 1 tablet by mouth every four to six hours Pseudoephedrine Hcl (Sudafed) 30 mg tablet Active 30 MG PO EVERY 4-6 HOURS May 28, 2024 12:00am DNExceed 4 doses/24h tiZANidine 4 mg oral capsule (1 source) Central alpha-2 Adrenergic Agonist Start: 05-28-2024 take 4 mg by mouth once daily at bedtime Tizanidine Active 4 MG PO Daily at bedtime May 28, 2024 12:00am topiramate 50 mg oral tablet (7 sources) take 1 tablet by mouth at bedtime topiramate (TOPAMAX) 50 MG tablet Take 50 mg by mouth at bedtime. 0 Active End: 06-16-2023 Topiramate ER (TROKENDI XR) 100 MG CP24 Take 150 mg by mouth. 0 06/16/2023 Discontinued 1 ml triamcinolone acetonide 40 mg/ml injection (1 source) Corticosteroid Start: 08-25-2023 End: 12-02-2023 triamcinolone acetonide (KENALOG-40) 40 MG/ML injection vilazodone hydrochloride 40 mg oral tablet (8 sources) Start: 05-28-2024 take 40 mg by mouth once daily at mealtime Vilazodone Active 40 MG PO Daily May 28, 2024 12:00am must administer with a meal/food take 1 tablet by mouth once laura y Vilazodone HCl 40 MG TABS Take 40 mg by mouth daily. 0 Active Viibryd Active vitamin b12 1 mg oral capsule (7 sources) Vitamin B12 Start: 05-28-2024 take 1000 ug by mouth once daily Cyanocobalamin (Vitamin B-12) Active 1000 MCG PO daily May 28, 2024 12:00am cyanocobalamin 1 000 MCG tablet Take 1,000 mcg by mouth every 28 days. 0 Active Cyanocobalamin A ctive Vitamin D3 (1 source) Vitamin D3 Activ e warfarin sodium 1 mg oral tablet (10 sources) Vitamin K Antagonist Start: 05-28-2024 take 1 mg by mouth three times weekly Warfarin Active 1 MG PO 3 Times a week May 28, 2024 12:00am Start: 05-28-2024 Warfarin Activ e 2 MG PO MOWEFR May 28, 2024 12:00am Warfarin Sodium (COUMADIN ORAL) Indications: Brachial neuritis or radiculitis Take by mouth daily. Followed in coumadin clinic [place], [place] 0 Active take 1 tablet by two times weekly Warfarin Sodium 3 MG [...] 4 mg/0.1 mL nasal liquid Instill 1 Belt into one nostril (alternate sides) as needed. [...] Encounter for therapeutic drug level monitoring; Translations: [[facility] THERAPEUTC DRUG LEVL MONITORING] Onset: 01-21-2023 Episodic Other aftercare (1 source) prefitter doors (current) use of anticoagulants; Translations: [RESISTOR TESTER CURRNT USE ANTICOAGULANTS] Onset: 02-22-2023 Episodic Other [...] Test Name Value Interpretation Reference Range Facility [facility] 02-28-2024 L Specimen: [id number] Received: 02/28/24 Status: DUDLEY Powell Num: [id number] Spec Type: Surgical Subm Dr: Aliza Spencer DO Tissues: A Stomach - Biopsy/Polyp (ANTRUM BX) B Stomach - Biopsy/Polyp (BX FUNDAL GLAND POLYP) C Esophagus Biopsy (DISTAL ESOPH BX) D Esophagus Biopsy (UPPER ESOPH BX) Procedures: HE/8, Gross/Micro L4/4 Age/ Patient Sex Location Account Attending Physician DionnaMadan Stanley 64/F LABELL [id number] Aliza Spencer DO SPEC NUM: [id number] RECD: 02/28/24 STATUS: DUDLEY XIAODavid NUM: [id number] SUNSHINE: 02/28/[address]: Aliza Spencer DO ENTERED: 02/28/[address] [facility] [address]: Eben Newell SPEC TYPE: Surgical DEPT: MADY CRUZ ORDERED: [...] tissue fragment, entirely submitted in B1. Specimen: [id number] Received: 02/28/24 Status: SIENARaghu Powell Num: [id number] Spec Type: Surgical Subm Dr: Aliza Spencer DO Tissues: A Stomach - Biopsy/Polyp (ANTRUM BX) B Stomach - Biopsy/Polyp (BX FUNDAL GLAND POLYP) C Esophagus Biopsy (DISTAL ESOPH BX) D Esophagus Biopsy (UPPER ESOPH BX) Procedures: Ratna, Gross/Micro L4/4 Patient: DionnaMadan Lizeth [id number] (Continued) Specimen: [id number] Received: 02/28/24 (Continued) Gross Description (Continued) Signed (signature on file) Steven Ruvalcaba MD 02/29/24 1501 Specimen: [id number] Received: 02/28/24 Status: DUDLEY Powell Num: [id number] Spec Type: Surgical Subm Dr: Aliza Spencer DO Tissues: A Stomach - Biopsy/Polyp (ANTRUM BX) B Stomach - Biopsy/Polyp (BX FUNDAL GLAND POLYP) C Esophagus Biopsy (DISTAL ESOPH BX) D Esophagus Biopsy (UPPER ESOPH BX) Procedures: WILEY/Ratna, Gross/Micro L4/4 Patient: Madan Perry [id number] (Continued) Specimen: [id number] Received: 02/28/24-1256 (Continued) Gross Description (Continued) C. Further labeled distal esophagus BX are 2 jiménez mucosal tissue fragments measuring 0.3 x 0.2 x 0.1 cm and 0.2 x 0.2 x 0.1 cm, entirely submitted in C1. D. Further labeled upper esophagus BX are 2 jiménez mucosal tissue fragments each measuring 0.2 x 0.1 x 0.1 cm, entirely submitted in D1. CPT Codes 46513q6 Specimen: [id number] Received: 02/28/24-1255 Status: DUDLEY Powell Num: [id number] Spec Type: Surgical Subm Dr: Aliza Spencer, Tissues: A Stomach - Biopsy/Polyp (ANTRUM BX) B Stomach - Biopsy/Polyp (BX FUNDAL GLAND POLYP) C Esophagus Biopsy (DISTAL ESOPH BX) D Esophagus Biopsy (UPPER ESOPH BX) Procedures: HE/8, Gross/Micro L4/4 Patient: Madan Perry [id number] (Continued) Signed (signature on file) Steven Ruvalcaba MD 02/29/24 1501 Normal [facility] URINE CULTUREon 12-23-2023 Bacteria identified Cx Nom (U) FINAL Normal (. - .) [facility] Comment on above: Order Comment: MS CC FACILITY: [facility] [id number] Result Comment: HUA Belle CATCH MID-STREAM URINE > 10,000 BUT < 100,000 CFU/ML RESEMBLES A CONTAMINATED URINE COLLECTION Performed By: #### C -UR #### [facility] [address] [facility], [address] BASIC MET PANEL W/GFRon 12-0 -2022 Calcium [Mass/Vol] 9.2 mg/dL Normal (8.6 - 10.6) [facility] Comment on above: Order Comment: FACIL ITY: [facility] [id number] Performed By: #### C HEM-B #### [facility] [address] [place], [address] Chloride [Moles/Vol] 99 mmol/L Normal (98 - 107) [facility] Comment on above: Order Comment: FACIL ITY: [facility] [id number] Performed By: #### C HEM-B #### [facility] [address] [place], [address] CO2 [Moles/Vol] 27 mmol/L Normal (22 - 30) [facility] Comment on above: Order Comment: FACIL ITY: [facility] [id number] Performed By: #### C HEM-B #### [facility] [address] [place], [address] Creatinine [Mass/Vol] 0.74 mg/dL Normal (0.52 - 1.04) [facility] Comment on above: Order Comment: FACIL ITY: [facility] [id number] Performed By: #### C HEM-B #### [facility] [address] [facility], [address] GFR- AMER 95.6 ML/M1.7 Normal (60.0 - 140.1) [facility] Comment on above: Order Comment: FACIL ITY: [facility] [id number] Performed By: #### C HEM-B #### [facility] [address] [place], [address] GFR-NON AFRIC-AMER 79.0 ML/M1.7 Normal (60.0 - 115.8) [facility] Comment on above: Order Comment: FACIL ITY: [facility] [id number] Performed By: #### C HEM-B #### [facility] [address] [place], [address] Glucose [Mass/Vol] 100 mg/dL Normal (74 - 106) [facility] Comment on above: Order Comment: FACIL ITY: [facility] [id number] Performed By: #### C HEM-B #### [facility] [address] [place], [address] Potassium [Moles/Vol] 4.6 mmol/L Normal (3.5 - 5.1) [facility] Comment on above: Order Comment: FACIL ITY: [facility] [id number] Performed By: #### C HEM-B #### [facility] [address] [place], [address] Sodium [Moles/Vol] 136 mmol/L Low (137 - 145) [facility] Comment on above: Order Comment: FACIL ITY: [facility] [id number] Performed By: #### C HEM-B #### [facility] [address] [place], [address] Urea nitrogen [Mass/Vol] 11 mg/dL Normal (7 - 17) [facility] Comment on above: Order Comment: FACIL ITY: [facility] [id number] Performed By: #### C HEM-B #### [facility] [address] [place], [address] Progress Noteson 08-25-2023 Traffic Routing Engineer Authentication Interface Message Text CC: Left hand and wrist pain Follow up after MRI done at [facility]. Normal [facility] [employer] [facility] Traffic Routing Engineer Authentication Interface Message Text Patient Office Note or Post OP Note Name:Madan Perry Date: 08/25/2023 CC: left wrist pain at [facility] area No chief complaint on file. EXAM: [...] patient. Aliza Aguilar MD Injection Procedure.[facility] 08/25/2023 [id number] Madan Perry The patient requested an injection [...] alcohol and a dressing applied. Normal [facility] [employer] [facility] MR wrist LT wo conon 023 MR wrist LT wo con [facility] [place] [address] MRI Report Signed Patient: Madan Perry MR#: [id number] : 1960 Acct:[id number] Age/Sex: 63 / F ADM Date: 07/20/23 Loc: [facility] Room: Type: [facility] Attending Dr: Aliza Aguilar Copies to: Aliza Aguilar Ordering Provider: Aliza Aguilar Date of Service: 07/20/23 MR/MR hand LT wo con: MEDIAN NERVE COMPRESSION ([id number]) MR/MR wrist LT wo con: MEDIAN NERVE COMPRESSION ([id number]) XR/XR pre/post mri xray: MEDIAN NERVE COMPRESSION [...] Jose Dial M.D.07/21/2023 7:38 PM Dictation Location: [facility] Transcribed By: [facility] 07/21/231937 Dictated By: Jose Dial DO 07/20/23 1525 Signed By: 07/21/231937 Normal [facility] Telephone Encounteron 2022 Traffic Routing Engineer Authentication Interface Message Text Spoke with patient and scheduled. Normal [facility] [employer] [facility] Telephone Encounteron 2022 Traffic Routing Engineer Authentication Interface Message Text Pt called as [...] she would need something sooner. Contact pt @[phone] Normal [facility] [employer] [facility] Addendum Noteon 06-16-2023 Traffic Routing Engineer Authentication Interface Message Text Addended by: ALIZA AGUILAR on: 06/16/2023 11:34 AM Modules accepted: Orders Normal [facility] [employer] [facility] Progress Noteson 06-16-2023 Traffic Routing Engineer Authentication Interface Message Text Patient Office Note [...] this patient. Aliza Aguilar MD Normal [facility] [employer] [facility] Traffic Routing Engineer Authentication Interface Message Text CC: Left hand pain Pain Left wrist and hand; tingling to middle and ring fingers. Pt states ganglion which was removed has returned and is painful. CMC joint painful. 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 Normal [facility] XR HAND LEFT 3 VIEWSon 06-16 [...] findings. Left hand MACRO: None Normal [facility] XR Hand - left 3 Viewson [...] with the findings. Left hand MACRO: None [facility] Rad[facility] Study observation (narrative) [facility] - left 3 ViewsOrdere d By: Alberto Llanes on 06-16-2023 [facility] DARNELL DOP LEG BILon [...] SEWELL Date: 2023-01-27 17:22 Normal [facility] CBC AUTO DIFFon 01-12-2023 BASO # 0.1 103/ul Normal 0.0-0.1 [facility] Comment on above: Performed By: #### C BC #### [facility] [address] [address] [address] Rocio Hernandez Basophils/100 WBC (Bld) 1.0 % Normal 0.2-2.0 [facility] Comment on above: Performed By: #### C BC #### [facility] [address] [address] [address] Rocio Hernandez EO # 0.2 103/ul Normal 0.0-0.7 [facility] Comment on above: Performed By: #### C BC #### [facility] [address] [place] [address] Dr. Rocio Hernandez Eosinophils/100 WBC (Bld) 2.9 % Normal 0.9-7.0 [facility] Comment on above: Performed By: #### C BC #### [facility] [address] [place] [address] Dr. Rocio Hernandez Erythrocyte distribution width (RBC) [Ratio] 14.1 % Normal 11.0-15.0 [facility] Comment on above: Performed By: #### C BC #### [facility] [address] [place] [address] Dr. Rocio Hernandez Hematocrit (Bld) [Volume fraction] 41.2 % Normal 36.0-48.0 [facility] Comment on above: Performed By: #### C BC #### [facility] [address] [place] [address] Dr. Rocio Hernandez Hemoglobin (Bld) [Mass/Vol] 13.6 g/dL Normal 12.0-16.0 [facility] Comment on above: Performed By: #### C BC #### [facility] [address] [place] [address] Dr. Rocio Hernandez IG # 0.01 10e3/ul Normal 0.00-0.03 [facility] Comment on above: Performed By: #### C BC #### [facility] [address] [place] [address] Dr. Rocio Hernandez IG % 0.2 % Normal 0.0-0.5 [facility] Comment on above: Performed By: #### C BC #### [facility] [address] [place] [address] Dr. Rocio Hernandez LYMPH # 1.3 103/ul Normal 1.2-3.8 [facility] Comment on above: Performed By: #### C BC #### [facility] [address] [place] [address] Dr. Rocio Hernandez Lymphocytes/100 WBC (Bld) 21.9 % Normal 20.5-60.0 [facility] Comment on above: Performed By: #### C BC #### [facility] [address] [place] [address] Dr. Rocio Hernandez MANUAL DIFF REQ NO Normal [facility] Comment on above: Performed By: #### C BC #### [facility] [address] [place] [address] Dr. Rocio Hernandez MCH (RBC) [Entitic mass] 28.4 pg Normal 26.7-34.0 [facility] Comment on above: Performed By: #### C BC #### [facility] [address] [place] [address] Dr. Rocio Hernandez MCHC (RBC) [Mass/Vol] 33.0 g/dL Normal 29.9-35.2 [facility] Comment on above: Performed By: #### C BC #### [facility] [address] [place] [address] Dr. Rocio Hernandez MCV (RBC) [Entitic vol] 86.0 fL Normal 81.0-99.0 [facility] Comment on above: Performed By: #### C BC #### [facility] [address] [place] [address] Dr. Rocio Hernandez MONO # 0.6 103/ul Normal 0.3-0.8 [facility] Comment on above: Performed By: #### C BC #### [facility] [address] [place] [address] Dr. Rocio Hernandez Monocytes/100 WBC (Bld) 10.3 % Normal 1.7-12.0 [facility] Comment on above: Performed By: #### C BC #### [facility] [address] [place] [address] Dr. Rocio Hernandez NEUT # 3.8 103/ul Normal 1.4-6.5 [facility] Comment on above: Performed By: #### C BC #### [facility] [address] [address] [address] Rocio Hernandez Neutrophils/100 WBC (Bld) 63.7 % Normal 43.0-75.0 [facility] Comment on above: Performed By: #### C BC #### [facility] [address] [address] [address] Rocio Hernandez Platelet mean volume (Bld) [Entitic vol] 9.0 fL Critically low 9.5-13.5 [facility] Comment on above: Performed By: #### C BC #### [facility] [address] [address] [address] Rocio Hernandez PLT 360 103/ul Normal 150-450 [facility] Comment on above: Performed By: #### C BC #### [facility] [address] [address] [address] Rocio Hernandez RBC 4.79 106/ul Normal 4.20-5.40 [facility] Comment on above: Performed By: #### C BC #### [facility] [address] [address] [address] Rocio Hernandez WBC 5.9 103/ul Normal 4.0-11.0 [facility] Comment on above: Performed By: #### C BC #### [facility] [address] [address] [address] Rocio Hernandez FREE T3on 01-12-2023 FREE T3 2.31 pg/mlL Normal 2.18-3.98 [facility] Comment on above: Performed By: #### T SH, CMP, LIPID, FT3 ####[facility] [address] [address]Dr. Rocio Hernandez FREE T4on 01-12-2023 Free T4 [Mass/Vol] 1.21 ng/dL Normal 0.76-1.46 [facility] Comment on above: Performed By: #### B 12FOL, FT4 #### [facility] [address] [address] [address] Rocio Hernandez GLYCOHEMOGLOBIN A1Con 2022 ADA RECOMMENDATION SEE BELOW Normal [facility] Comment on above: Result Comment: ADA RECOMMENDED LIMIT 4.0 - 6.0 ADA THERAPEUTIC TARGET < 7.0 ACTION SUGGESTED > 7.0 Performed By: #### A 1C ####[facility] [address] [address]Dr. Rocio Hernandez Glucose [Mass/Vol] 123 mg/dL Normal [facility] Comment on above: Performed By: #### A 1C ####[facility] [address] [address]Dr. Rocio Hernandez HbA1c (Bld) [Mass fraction] 5.9 % Normal 4.5-6.2 [facility] Comment on above: Performed By: #### A 1C ####[facility] [address] [address]Dr. Rocio Hernandez LIPID PROFILEon 01-12-2023 CHOL-HDL RATIO NORM SEE BELOW Normal [facility] Comment on above: Result Comment: 3.3 - 4.4 LOW RISK 4.4 - 7.1 AVERAGE RISK 7.1 - 11.0 MODERATE RISK >11.0 HIGH RISK Performed By: #### T SH, CMP, LIPID, FT3 #### [facility] [address] [address] [address] Rocio Hernandez Cholesterol [Mass/Vol] 203 mg/dL Critically high <=200 [facility] Comment on above: Performed By: #### T SH, CMP, LIPID, FT3 #### [facility] [address] [address] [address] Rocio Hernandez Cholesterol in HDL [Mass/Vol] 89 mg/dL Critically high 40-60 [facility] Comment on above: Performed By: #### T SH, CMP, LIPID, FT3 #### [facility] [address] [address] [address] Rocio Hernandez Cholesterol in LDL [Mass/Vol] 87.8 mg/dL Normal [facility] Comment on above: Performed By: #### T SH, CMP, LIPID, FT3 #### [facility] [address] [address] [address] Rocio Hernandez Cholesterol.total/C holesterol in HDL [Mass ratio] 2.3 {ratio} Normal [facility] Comment on above: Performed By: #### T SH, CMP, LIPID, FT3 #### [facility] [address] [address] [address] Rocio Hernandez HDL NORMAL > or = 60 mg/dl - LO W CARDIOVASCULAR RISK <40 mg/dl - HIGH CARDIOVASCULAR RISK Normal [facility] Comment on above: Performed By: #### T SH, CMP, LIPID, FT3 #### [facility] [address] [address] [address] Rocio Hernandez LDL CALC NORMAL SEE BELOW Normal [facility] Comment on above: Result Comment: <100 mg/dl OPTIMAL 100 - 129 mg/dl NEAR OR ABOVE OPTIMAL 130 - 159 mg/dl BORDERLINE HIGH 160 - 189 mg/dl HIGH >190 mg/dl VERY HIGH Performed By: #### T SH, CMP, LIPID, FT3 #### [facility] [address] [address] [address] Rocio Hernandez Triglyceride [Mass/Vol] 131 mg/dL Normal <=150 [facility] Comment on above: Performed By: #### T SH, CMP, LIPID, FT3 #### [facility] [address] [address] [address] Rocio Hernandez VLDL CALC 26.2 mg/dL Normal [facility] Comment on above: Performed By: #### T SH, CMP, LIPID, FT3 #### [facility] [address] [address] [address] Rocio Hernandez MICROALB CREAT RATIO RANDOMo n 01-12-2023 mALB <1.3 Normal <=30.0 [facility] Comment on above: Performed By: #### M CRR ####[facility] [address] [id number] Rocio Hernandez MALB CR RATIO 13.6 mg/g Normal 0.0-29.9 [facility] Comment on above: Performed By: #### M CRR ####[facility] [address] [id number] Rocio Hernandez MALB CR RATIO RANGE SEE BELOW Normal [facility] Comment on above: Result Comment: NO M ICROALBUMINURIA 0-29 MG/G CLINICAL MICROALBUMINURIA 30-300 MG/G MACROALBUMINURIA >300 MG/G Performed By: #### M CRR ####[facility] [address] [place], [place] [address]VjDr. Rocio Hernandez URINE CREAT 95.84 mg/dL Normal 20.00-300.00 [facility] Comment on above: Performed By: #### M CRR ####[facility] [address] [place], [place] [address]LfDr. Rocio Hernandez PROF 14(COMP METB)on 023 Albumin [Mass/Vol] 3.8 g/dL Normal 3.4-5.0 [facility] Comment on above: Performed By: #### T SH, CMP, LIPID, FT3 #### [facility] [address] [address] [address] Rocio Hernandez Albumin/Globulin [Mass ratio] 0.9 {ratio} Normal [facility] Comment on above: Performed By: #### T SH, CMP, LIPID, FT3 #### [facility] [address] [address] [address] Rocio Hernandez ALP [Catalytic activity/Vol] 111 U/L Normal 46-116 [facility] Comment on above: Performed By: #### T SH, CMP, LIPID, FT3 #### [facility] [address] [address] [address] Rocio Hernandez ALT [Catalytic activity/Vol] 42 U/L Normal 14-59 [facility] Comment on above: Performed By: #### T SH, CMP, LIPID, FT3 #### [facility] [address] [address] [address] Rocio Hernandez Anion gap [Moles/Vol] 10.8 mmol/L Normal [facility] Comment on above: Performed By: #### T SH, CMP, LIPID, FT3 #### [facility] [address] [address] [address] Rocio Hernandez AST [Catalytic activity/Vol] 24 U/L Normal 15-37 [facility] Comment on above: Performed By: #### T SH, CMP, LIPID, FT3 #### [facility] [address] [address] [address] Rocio Hernandez Bilirubin [Mass/Vol] 0.4 mg/dL Normal 0.2-1.0 [facility] Comment on above: Performed By: #### T SH, CMP, LIPID, FT3 #### [facility] [address] [place] [address] Dr. Rocio Hernandez Calcium [Mass/Vol] 9.6 mg/dL Normal 8.5-10.1 [facility] Comment on above: Performed By: #### T SH, CMP, LIPID, FT3 #### [facility] [address] [place] [address] Dr. Rocio Hernandez Chloride [Moles/Vol] 93 mmol/L Critically low 98-107 [facility] Comment on above: Performed By: #### T SH, CMP, LIPID, FT3 #### [facility] [address] [place] [address] Dr. Rocio Hernandez CO2 [Moles/Vol] 31.2 mmol/L Normal 21.0-32.0 [facility] Comment on above: Performed By: #### T SH, CMP, LIPID, FT3 #### [facility] [address] [place] [address] Dr. Rocio Hernandez Creatinine [Mass/Vol] 1.02 mg/dL Normal 0.55-1.02 [facility] Comment on above: Performed By: #### T SH, CMP, LIPID, FT3 #### [facility] [address] [place] [address] Dr. Rocio Hernandez EGFR-AF SALVADOREAN >60 Normal >=60 [facility] Comment on above: Performed By: #### T SH, CMP, LIPID, FT3 #### [facility] [address] [place] [address] Dr. Rocio Hernandez EGFR-NON AF SALVADOREAN 55 mL/min/1.73m2 Critically low >=60 [facility] Comment on above: Performed By: #### T SH, CMP, LIPID, FT3 #### [facility] [address] [place] [address] Dr. Rocio Hernandez Globulin (S) [Mass/Vol] 4.4 g/dL Normal [facility] Comment on above: Performed By: #### T SH, CMP, LIPID, FT3 #### [facility] [address] [address] [address] Rocio Hernandez Glucose [Mass/Vol] 102 mg/dL Normal 74-106 [facility] Comment on above: Performed By: #### T SH, CMP, LIPID, FT3 #### [facility] [address] [place] [address] Dr. Rocio Hernandez Potassium [Moles/Vol] 4.0 mmol/L Normal 3.5-5.1 [facility] Comment on above: Performed By: #### T SH, CMP, LIPID, FT3 #### [facility] [address] [place] [address] Dr. Rocio Hernandez Protein [Mass/Vol] 8.2 g/dL Normal 6.4-8.2 [facility] Comment on above: Performed By: #### T SH, CMP, LIPID, FT3 #### [facility] [address] [place] [address] Dr. Rocio Hernandez Sodium [Moles/Vol] 131 mmol/L Critically low 136-145 [facility] Comment on above: Performed By: #### T SH, CMP, LIPID, FT3 #### [facility] [address] [place] [address] Dr. Rocio Hernandez Urea nitrogen [Mass/Vol] 6.0 mg/dL Critically low 7.0-18.0 [facility] Comment on above: Performed By: #### T SH, CMP, LIPID, FT3 #### [facility] [address] [place] [address] Dr. Rocio Hernandez Urea nitrogen/Creatinine [Mass ratio] 5.9 mg/mg Normal [facility] Comment on above: Performed By: #### T SH, CMP, LIPID, FT3 #### [facility] [address] [place] [address] Dr. Rocio Hernandez TSHon 01-12-2023 TSH 5.647 uIU/mL Critically high 0.358-3.740 [facility] Comment on above: Performed By: #### T SH, CMP, LIPID, FT3 #### [facility] [address] [place], [place] [address] Dr. Rocio Hernandez VIT B12 AND FOLATEon 023 Cobalamin (Vitamin B12) [Mass/Vol] 1189.0 pg/mL Critically high 193.0-986.0 [facility] Comment on above: Performed By: #### B 12FOL, FT4 #### [facility] [address] [address] [address] Rocio Hernandez FOLATE 27.30 ng/mL Normal 8.60-58.90 [facility] Comment on above: Performed By: #### B 12FOL, FT4 #### [facility] [address] [address] [address] Rocio Hernandez MG MAMM SCREEN 3D TANIA CADon 12-19-2022 MG MAMM SCREEN 3D TANIA CAD Patient: MADAN PERRY Exam Date: 12/19/2022 : 1960 Gender:F Ordering : DR [place] D.O. Admission #: [id number] Family : Order #: [id number] CLICK HERE TO VIEW EXAM RADIOLOGY REPORT [...] cancer at age 54. LOCATION: [facility] BREAST COMPOSITION: Scattered areas fibroglandular density. [...] Flores M.D. on 12/19/2022 at 11:19 Normal [facility] XR DEXA BONE DENSITYon 12-19 XR [...] by: LIZ FLORES Date: 2022-12-19 10:01 Normal [facility] FREE T3on 03-22-2022 FREE T3 2.43 pg/mlL Normal 2.18-3.98 [facility] Comment on above: Performed By: #### B MP, FT3, TSH ####[facility] [address] [place], [place] [address]IxDr. Rocio Hernandez FREE T4on 03-22-2022 Free T4 [Mass/Vol] 1.43 ng/dL Normal 0.76-1.46 [facility] Comment on above: Performed By: #### F T4 ####[facility] [address] [id number]. Rocio Hernandez PROF CHEM 8 (BAS METB)on Anion gap [Moles/Vol] 10.2 mmol/L Normal [facility] Comment on above: Performed By: #### B MP, FT3, TSH ####[facility] [address] [address]Dr. Rocio Hernandez Calcium [Mass/Vol] 8.8 mg/dL Normal 8.5-10.1 [facility] Comment on above: Performed By: #### B MP, FT3, TSH ####[facility] [address] [address]Dr. Rocio Hernandez Chloride [Moles/Vol] 104 mmol/L Normal 98-107 [facility] Comment on above: Performed By: #### B MP, FT3, TSH ####[facility] [address] [address]Dr. Rocio Hernandez CO2 [Moles/Vol] 31.7 mmol/L Normal 21.0-32.0 [facility] Comment on above: Performed By: #### B MP, FT3, TSH ####[facility] [address] [address]Dr. Rocio Hernandez Creatinine [Mass/Vol] 0.96 mg/dL Normal 0.55-1.02 [facility] Comment on above: Performed By: #### B MP, FT3, TSH ####[facility] [address] [address]Dr. Rocio Hernandez EGFR-AF SALVADOREAN >60 Normal >=60 [facility] Comment on above: Performed By: #### B MP, FT3, TSH ####[facility] [address] [address]Dr. Rocio Hernandez EGFR-NON AF SALVADOREAN 59 mL/min/1.73m2 Critically low >=60 [facility] Comment on above: Performed By: #### B MP, FT3, TSH ####[facility] [address] [address]Dr. Rocio Hernandez Glucose [Mass/Vol] 110 mg/dL Critically high 74-106 [facility] [place] [facility] Comment on above: Performed By: #### B MP, FT3, TSH ####[facility] [address] [address]Dr. Rocio Hernandez Potassium [Moles/Vol] 2.9 mmol/L Critically low 3.5-5.1 [facility] Comment on above: Result Comment: TEST REPEATED CRITICAL VALUE VERIFIED Performed By: #### B MP, FT3, TSH ####[facility] [address] [address]Dr. Rocio Hernandez Sodium [Moles/Vol] 141 mmol/L Normal 136-145 [facility] Comment on above: Performed By: #### B MP, FT3, TSH ####[facility] [address] [address]Dr. Rocio Hernandez Urea nitrogen [Mass/Vol] 12.0 mg/dL Normal 7.0-18.0 [facility] Comment on above: Performed By: #### B MP, FT3, TSH ####[facility] [address] [address]Dr. Rocio Hernandez Urea nitrogen/Creatinine [Mass ratio] 12.5 mg/mg Normal [facility] Comment on above: Performed By: #### B MP, FT3, TSH ####[facility] [address] [address]Dr. Rocio Hernandez TSHon 03-22-2022 TSH 0.137 uIU/mL Critically low 0.358-3.740 [facility] Comment on above: Performed By: #### B MP, FT3, TSH ####[facility] [address] [address]Dr. Rocio Hernandez Patient Letter FTon 2020 Patient Letter [facility] (Inserted Image. Wilda ble to display) May 26, 2021 MADAN PERRY [address] [place] [address] MADAN PERRY 1960 Dear Madan, This is a SECOND ATTEMPT to remind you that you are due for an appointment with [facility]. Please contact our office at [phone] to schedule an appointment at your earliest convenience. Thank you, [facility] Normal [facility] Reminderson 05-26-2021 Reminders - From: Jane Onofre To: GINA - Reminders/Recalls; Sent: 01/18/2021 12:33:31 EDT Show up: 04/25/2021 12:33:00 EDT Subject: Ambulatory Reminder Due Date/Time: 06/09/2021 12:33:00 EDT Reminder/Recall sara peace 5 year colon 06/09/2021 first recall letter second rcall letter Normal [facility] Patient Letter FTMCon 2020 Patient Letter [facility] (Inserted Image. Wilda ble to display) May 05, 2021 MADAN PERRY [address] [place] [address] MADAN PERRY 1960 Dear Madan, This is a reminder that you are due for an appointment with [facility]. Please contact our office at [phone] to schedule an appointment at your earliest convenience. Thank you, [facility] Vital Signs Date Time Vital Sign Value Performing Clinician Facility 05-28-2024 13:19-0400 Body height 161.29 cm DO Tank [place] Work Phone: [facility] 05-28-2024 13:19-0400 Body mass index (BMI) [Ratio] 26.5 kg/m2 DO [place] Work Phone: [facility] 05-28-2024 13:19-0400 Body weight 69.11 kg DO [place] Work Phone: [facility] 05-09-2022 16:35-0400 Body height 161.29 cm Adilia Mederos Other [facility] Other 05-09-2022 16:35-0400 Body mass index (BMI) [Ratio] 25.63 kg/m2 Adilia Mederos Other [facility] Other 05-09-2022 16:35-0400 Body temperature 97.8 [degF] Adilia Mederos Other [facility] Other 05-09-2022 16:35-0400 Body weight 66.68 kg Adilia Mederos Other [facility] Other 05-09-2022 16:35-0400 Diastolic blood pressure 79 mm[Hg] Adilia Mederos Other [facility] Other 05-09-2022 16:35-0400 Respiratory rate 18 /min Adilia Mederos Other [facility] Other 05-09-2022 16:35-0400 SaO2% (BldA) [Mass fraction] 98 % Adilia Mederos Other [facility] Other 05-09-2022 16:35-0400 Systolic blood pressure 136 mm[Hg] Adilia Mederos Other [facility] Other 07-21-2021 16:05-0400 Body height 161.29 cm Lilian Ferreira Other [facility] Other 07-21-2021 16:05-0400 Body mass index (BMI) [Ratio] 26.5 kg/m2 Lilian Ferreira Other [facility] Other 07-21-2021 16:05-0400 Body temperature 96.2 [degF] Lilian Ferreira Other [facility] Other 07-21-2021 16:05-0400 Body weight 68.95 kg Lilian Ferreira Other [facility] Other 07-21-2021 16:05-0400 Diastolic blood pressure 95 mm[Hg] Lilian Ferreira Other [facility] Other 07-21-2021 16:05-0400 Respiratory rate 18 /min Lilian Ferreira Other [facility] Other 07-21-2021 16:05-0400 SaO2% (BldA) [Mass fraction] 99 % Lilian Ferreira Other [facility] Other 07-21-2021 16:05-0400 Systolic blood pressure 132 mm[Hg] Lilian Ferreira Other [facility] Other 06-22-2021 14:20-0400 Body height 161.29 cm Adilia Mederos Other [facility] Other 06-22-2021 14:20-0400 Body mass index (BMI) [Ratio] 25.98 kg/m2 Adilia Cardenasault Other [facility] Other 06-22-2021 14:20-0400 Body temperature 96.4 [degF] Adilia Rosa M Other [facility] Other 06-22-2021 14:20-0400 Body weight 67.59 kg Adilia Rosa M Other [facility] Other 06-22-2021 14:20-0400 Diastolic blood pressure Adilia Rosa M Other [facility] Other 06-22-2021 14:20-0400 Respiratory rate 18 /min Adilia Mederos Other [facility] Other 06-22-2021 14:20-0400 SaO2% (BldA) [Mass fraction] 98 % Adilia Mederos Other [facility] Other 06-22-2021 14:20-0400 Systolic blood pressure 111 mm[Hg] Adilia Mederos Other [facility] Other Encounters Encounter Date Encounter Type Care Provider Facility Start: 05-28-2024 End: 05-28-2024 ambulatory DO [place] Work Phone: [facility] Work Phone: Start: 05-28-2024 End: 05-28-2024 Patient encounter procedure DO [place] Work Phone: [facility] Work Phone: Start: 05-20-2024 End: 05-20-2024 ambulatory Andlauraus Quinten Harp MD Facility: [facility] Start: 05-13-2024 End: 05-13-2024 ambulatory [facility] Start: 03-14-2024 End: 03-14-2024 ambulatory [facility] Start: 02-28-2024 End: 02-28-2024 ambulatory DO [place] Work Phone: [facility] Work Phone: Start: 02-28-2024 End: 02-28-2024 Departed Referred DO [place] Work Phone: [facility] Start: 02-20-2024 End: 02-20-2024 ambulatory [facility] Start: 01-15-2024 End: 01-15-2024 ambulatory Meet Harp MD Facility: [facility] Start: 12-04-2023 End: 12-04-2023 ambulatory Meet Harp MD Facility: [facility] Start: 11-06-2023 End: 11-06-2023 ambulatory Meet Harp MD Facility: [facility] Start: 10-09-2023 End: 10-09-2023 ambulatory Meet Harp MD Facility: [facility] Start: 08-25-2023 End: 08-25-2023 ambulatory ALIZA AGUILAR Facility:[facility] Start: 08-25-2023 End: 08-25-2023 Office outpatient visit 15 minutes Aliza Aguilar MD Work Phone: [facility] [address] [place] [address] Ctr Orthopedics Comment on above: Hand arthritis (Prim maurisio Dx) Start: 08-21-2023 End: 08-21-2023 ambulatory Meet Harp MD Facility:[facility] Start: 08-19-2023 Letter encounter Yesy Covarrubias OT Work Phone: [facility] Start: 07-31-2023 End: 07-31-2023 ambulatory [facility] Start: 07-24-2023 End: 07-24-2023 ambulatory Meet Harp MD Facility: [facility] Start: 07-20-2023 End: 07-20-2023 Patient encounter procedure DO [place] Work Phone: [facility] [facility] [address] Work Phone: Start: 07-20-2023 End: 07-20-2023 ambulatory DO [place] Work Phone: [facility] Work Phone: Start: 07-10-2023 End: 07-10-2023 ambulatory Meet Harp MD Facility:[facility] Start: 06-16-2023 End: 06-17-2023 ambulatory UNKNOWN PROVIDER Facility:[facility] Start: 06-16-2023 End: 06-16-2023 Office outpatient visit 25 minutes Aliza Aguilar MD Work Phone: [facility] Comment on above: Left hand pain (Prim maurisio Dx) Start: 06-16-2023 End: 06-16-2023 Subsequent hospital visit by physician [facility] Op Op X-Ray 1 Work Phone: [facility] Diag Radiology Comment on above: Left hand pain Start: 02-07-2023 End: 02-08-[address] [place] Facility:[facility]1 Start: 01-27-2023 End: 01-28-[address] [place] Facility:[facility]1 Start: 01-23-2023 End: 02-22-2023 ambulatory SHAIKH Eduardo ROSS Facility:H1 Start: 01-16-2023 Encounter for genera l adult medical examination without abnormal findings DR [place] [facility] Start: 01-12-2023 End: 01-13-[address] [...] FAWWAD Facility:H1 Start: 06-26-2022 End: 07-25-2022 ambulatory SHAIKH Eduardo CLDavidCHERELLE Facility:H1 Start: 06-20-2022 End: 06-21-[address] [place] Facility:[facility]1 Start: 05-26-2022 End: 06-25-2022 ambulatory SHAIKH Eduardo MARTELLAbdifatah Facility:[facility]1 Start: 05-13-2022 Letter encounter Yesy Covarrubias OT Work Phone: [facility] Start: 05-09-2022 End: 05-09-2022 ambulatory Adilia Mederos Other [facility] Other Start: 05-09-2022 Office outpatient vi sit 15 minutes Adilia Mederos [facility] Start: 05-04-2022 End: 05-05-[address] [place] Facility:[facility]1 Start: 04-25-2022 End: 05-25-2022 ambulatory SHAIKH Eduardo MARTELLAbdifatah Facility:[facility]1 Start: 03-25-2022 End: 04-22-2022 ambulatory SHAIKH Eduardo ROMECHERELLE Facility:[facility]1 Start: 03-23-[address] [place] Fac ility:[facility]1 Start: 03-22-2022 End: 03-23-[address] [place] Facility:[facility]1 Start: 07-21-2021 Patient encounter procedure Lilian Ferreira [facility] Start: 06-22-2021 Office outpatient vi sit 15 minutes Adilia Mederos [facility] Procedures Date Procedure Procedure Detail Performing Clinician Start: 08-25-2023 Injection 1 tendon sheath/ligament aponeurosis Aliza Aguilar MD Work Phone: Start: 06-16-2023 Radex hand minimum 3 views Aliza Aguilar MD Work Phone: Plan of Treatment Date Care Activity Detail Author Start: 06-04-2028 Tetanus vaccination Tetanus (T d or Tdap) Booster [facility] Start: 01-13-2028 Cholesterol [Mass/volume] in Serum or Plasma Cholesterol [facility] Start: 05-28-2024 Patient referral [facility] Work Phone: Start: 08-25-2023 End: 08-25-2023 Patient encounter procedure 08/25/2023 11:30 AM EST Office Visit [address] Surg Ctr Orthopedics [address] [address] Aliza Aguilar MD [address] [place] [id number] [facility] Start: 07-20-2023 XR pre/post mri xray XR pre/post mri xray [facility] Start: 07-20-2023 [facility] Start: 07-20-2023 MR Wrist - left WO contrast [facility] Start: 07-20-2023 MRI of left wrist MR wrist LT wo con [facility] Start: 07-20-2023 MR Hand - left WO contrast [facility] Start: 07-20-2023 MRI of left hand MR hand LT wo con [facility] Start: 06-25-2023 Influenza vaccination Influenza Vacc ine (#1) [facility] Start: 06-16-2023 End: 06-16-2024 MR Wrist - left WO contrast MR WRIST LEFT W/O Imaging Routine Left hand pain Expected: 06/16/2023, Expires: 06/16/2024 [facility] Work Phone: Comment on above: Expected: 06/16/2023 , Expires: 06/16/2024 Start: 05-26-2023 COVID-19 Vaccine ( season) COVID-19 Vaccine ( season) [facility] Start: 05-26-2023 Influenza vaccination Influenza Vacc ine (#1) [facility] Start: 06-25-2022 Influenza vaccination Influenza Vacc ine (#1) [facility] Start: 06-08-2022 COVID-19 Vaccine (4 - Booster for Pfizer series) COVID-19 Vaccine (4 - Booster for Pfizer series) [facility] Start: 2019 RSV vaccine (optiona l 60+ years) RSV vaccine (optional 60+ years) [facility] Start: 09-25-2014 Annual wellness visit Annual W ellness Visit (G0438) [facility] Start: 2009 Measurement of occul t blood [...] for malign ant neoplasm of breast Mammography [facility] Start: 02-11-1980 Screening for malign ant neoplasm of cervix Pap Smear [facility] Start: 1977 Hepatitis C screening Hepatitis C An tibody [facility] Start: 1974 HIV screening HIV Test [facility] Start: 1959 COVID-19 Vaccine ( formulation) COVID-19 Vaccine ( formulation) [facility] Start: 1959 Screening for malign ant neoplasm of colon Colonoscopy [facility] Patient referral [facility] Work Phone: Immunizations Immunization Date Immunization Notes Care Provider [facility] 08-11-2023 influenza, injectabl e, quadrivalent, preservative free Aliza Aguilar MD Work Phone: [facility] 08-11-2023 Respiratory syncytia l virus (RSV), vaccine, bivalent, protein subunit RSV prefusion F, diluent reconstituted, 0.5 mL, preservative free (RWG=336) Aliza Aguilar MD Work Phone: [facility] 06-18-2022 influenza, injectabl e, quadrivalent, preservative free Aliza Aguilar MD Work Phone: [facility] 06-18-2022 influenza virus vacc ine, unspecified formulation Aliza Aguilar MD Work Phone: [facility] 02-05-2022 Pfizer Monovalent (1 2+ yrs) SARS-COV-2 (COVID-19) vaccine, mRNA, spike protein, LNP, pres. free, 30 mcg/0.3mL dose, betito-sucrose (DHU=043) Aliza Aguilar MD Work Phone: [facility] 08-11-2021 influenza, injectabl e, quadrivalent, preservative free Yesy Marci OT Work Phone: [facility] 08-11-2021 influenza virus vacc ine, unspecified formulation Yesy Marci OT Work Phone: [facility] 07-24-2020 zoster vaccine recombinant K athryn Marci OT Work Phone: [facility] 07-11-2020 Influenza, injectabl e, Madin Christal Canine Kidney, preservative free, quadrivalent Yesy Marci OT Work Phone: [facility] 04-18-2020 zoster vaccine recombinant K athryn Marci OT Work Phone: [facility] 08-28-2019 Influenza, injectabl e, Madin [place] Canine Kidney, preservative free, quadrivalent Yesy Marci OT Work Phone: [facility] 07-01-2019 influenza, high dose seasonal, preservative-free Yesy Marci OT Work Phone: [facility] 06-25-2019 pneumococcal polysac charide vaccine, 23 valent Yesy Marci OT Work Phone: [facility] 07-06-2018 influenza, injectabl e, quadrivalent, contains preservative Yesy Marci OT Work Phone: [facility] 06-04-2018 tetanus toxoid, redu karen diphtheria toxoid, and acellular pertussis vaccine, adsorbed Yesy Marci OT Work Phone: [facility] 08-19-2017 influenza, injectabl e, quadrivalent, preservative free Yesy Marci OT Work Phone: [facility] 08-09-2017 influenza, injectabl e, quadrivalent, contains preservative Yesy Marci OT Work Phone: [facility] 08-01-2016 influenza, injectabl e, quadrivalent, preservative free Yesy Marci OT Work Phone: [facility] 07-11-2015 influenza, injectabl e, madin christal canine kidney, preservative free Yesy Marci OT Work Phone: [facility] 07-11-2015 pneumococcal conjuga te vaccine, 13 valent Yesy Marci OT Work Phone: [facility] 08-13-2009 novel influenza-H1N1 -09, preservative-free, injectable Yesy Marci OT Work Phone: [facility] 07-17-2009 influenza virus vacc ine, unspecified formulation Yesy Marci OT Work Phone: [facility] 08-15-2008 influenza virus vacc ine, unspecified formulation Yesy Marci OT Work Phone: [facility] Payers Date Payer Category Payer Self-pay [id number] 2018 Unknown [id number] 2013 Medicare [id number] 1.13.56.2.7.3.67 [id number] 1959 [facility] [id number] 2.16.840.1.774096.19 1959 Medicare [id number] 2.16.840.1.483962.19 1959 Unknown [id number] 2.16.840.1.935570.3.579.2.593 1959 Unknown [id number] 2.16.840.1.578837.3.579.2.593 1959 Unknown [id number] 2.16.840.1.661809.3.579.2.593 1959 Unknown [id number] 2.16.840.1.071093.3.579.2.593 1959 Unknown [id number] 2.16.840.1.017660.3.579.2.593 1959 Unknown [id number] 2.16.840.1.006002.3.579.2.593 1959 Unknown [id number] 2.16.840.1.739739.3.579.2.593 1959 Unknown [id number] 2.16.840.1.984511.3.579.2.593 1959 Unknown [id number] 2.16.840.1.367489.3.579.2.59 1959 Unknown [id number] 2.16.840.1.140828.3.579.2.59 1959 Unknown [id number] 2.16.840.1.568882.3.579.2.593 1959 Unknown [id number] 2.16.840.1.043089.3.579.2.59 1959 Unknown [id number] 2.16.840.1.110072.3.579.2.593 1959 Unknown [id number] 2.16.840.1.845541.3.579.2.59 1959 Unknown [id number] 2.16.840.1.152702.3.579.2.593 1959 Unknown [id number] 2.16.840.1.027450.3.579.2.593 1959 Unknown [id number] 2.16.840.1.104657.3.579.2.593 1959 Unknown [id number] 2.16.840.1.566189.3.579.2.593 1959 Unknown [id number] 2.16.840.1.519917.3.579.2.593 1959 Unknown [id number] 2.16.840.1.377218.3.579.2.593 1959 Unknown [id number] 2.16.840.1.336170.3.579.2.732 1959 Unknown [id number] 2.16.840.1.746756.3.579.2.732 1959 Unknown [id number] 2.16.840.1.359158.3.579.2.732 1959 Unknown [id number] 2.16.840.1.194363.3.579.2.1286 1959 Unknown [id number] 2.16.840.1.384641.3.579.2.1286 1959 Unknown [id number] 2.16.840.1.023423.3.579.2.196 1959 Unknown [id number] 2.16.840.1.513547.3.579.2.196 1959 Unknown [id number] 2.16.840.1.154923.3.579.2. 1959 Unknown [id number] 2.16.840.1.836769.3.579.2.196 1959 Unknown [id number] 2.16.840.1.526059.3.579.2.196 1959 Unknown [id number] 2.16.840.1.143111.3.579.2.196 1959 Unknown [id number] 2.16.840.1.094970.3.579.2. 1959 Unknown [id number] 2.16.840.1.649014.3.579.2. 1959 Unknown [id number] 2.16.840.1.238704.3.579.2.196 1959 Unknown [id number] 2.16.840.1.921439.3.579.2.196 Medicare Medicare Nonpatient [id number] Unknown [id number] 2.16.840.1.404265.3.579.2.531 Unknown [id number] 2.16.840.1.829100.3.579.2.531 Social History Date Type Detail Facility Unknown if ever smoked [facility] Other Sex Assigned At [facility] Other Start: 11-18-2018 End: 05-31-2019 Tobacco smoking status ARIS Ex-smoker [facility] History of tobacco use [facility] sm[facility] Start: 05-31-2019 Tobacco use and exposure Smokeless tobacco non-user [facility] Start: 04-07-2020 Alcohol intake Lifetime non-d han (finding) [facility] Start: 07-09-2019 History SDOH Alcohol Frequency 1 [facility] Start: 1960 Sex Assigned At Not on file [facility] Start: 1960 Sex Assigned At Female [facility] Medical Equipment Procedure Code Equipment Code Equipment Origin al Text Equipment Identifier Dates [place] 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 Patient Office Note or Post OP [...] patient. Aliza Aguilar MD Injection Procedure.[facility] 08/25/2023 [id number] Madan Perry The patient requested an injection [...] a dressing applied. documented in this encounter [facility] 06-16-2023 Note Addended by: ALIZA AGUILAR on: 06/16/2023 11:34 AM Modules accepted: Orders [facility] 06-16-2023 Miscellaneous Notes Addended by: ALIZA AGUILAR on: 06/16/2023 11:34 AM Modules accepted: Orders documented in this encounter [facility] 06-16-2023 History of Presen t illness [...] continues on coumadin. documented in this encounter [facility] 05-09-2022 Evaluation note Encounter Date Diagnosis [...] Xray that was ordered outpatient by PCP [facility] Other 08-10-2022 NotePROCEDURE: XR FOOT RT MIN 3 VIEWS COMPARISON: None. HISTORY: Pain in right foot FINDINGS: BONES:No fracture, acute abnormality, or significant arthropathy. Mild enthesopathic spurring of the calcaneus at the Achilles insertion SOFT TISSUES:Negative. No visible soft tissue swelling. EFFUSION:None visible. OTHER: Negative. IMPRESSION: No acute abnormality Electronically authenticated by: MARTINEZ HARVEY Date: 2022-05-04 16:22[facility]10-27-2021 Evaluation note* Encounter Date Diagnosis Assessment Notes Treatment Notes Treatment Clinical Notes Jun, Swelling of left elbow (ICD-10 - M25.422) Jun, Other Patient refe rred to the ER due to swelling, ecchymosis, pain of her left elbow with no known injury. It is felt the patient needs blood work to evaluate [facility] Other 09-28-2021 Evaluation note* Encounter Date Diagnosis Assessment Notes Treatment Notes Treatment Clinical Notes May, Bee sting, undetermined intent, initial encounter (ICD-10 - T63.444A) May continue Xyzal and Benadryl as directed. [facility] Other Evaluation note* Diagnosis Left hand pain- Primary Pain in limb Left hand pain Pain in limb [facility] Left hand pain Pain in limb [facility] assessment [facility] Work Phone: Evaluation note* [...] second t roseann Hospitalization History see above [facility] Other Hospital Discharge instructionsAmbulatory Orders* Referral to Speech/PT/OT (PT/OT/SP) Location: None Selected [facility] Work Phone: Summary Purpose Family History Relationship Condition Age at Onset Recorded Date/T roseann father Unknown Hypertension Unknown Heart disease Unknown Not Specified Heart disease Unknown Unknown Malignant neoplasm Unknown Relationship Condition Age at Onset Recorded Date/T roseann father Unknown Hypertension Unknown Heart disease Unknown mother Heart disease Unknown Unknown Malignant neoplasm Unknown Advance Directives Advance Directive Response Recorded Date/ Time Advance Directives No February 15, 201 8 10:24am Reason for Referral Specialty Diagnoses / Procedures Referred By Randi cardona Referred To Contact Radiology Diagnoses Left hand pain Aliza Aguilar MD [address] [place] [address] Referral ID Status Reason Start Date Expiration Date Visits Requested Visits Authorized [id number] Authorized Patient Preference 06/16/2023 06/16/2024 3 3 Comments Near home, [place], [place] Specialty Diagnoses / Procedures Referred By Randi t Referred To Contact Radiology Diagnoses Left hand pain Procedures MR WRIST LEFT W/O Aliza Aguilar MD [address] [place] [address] [facility] [address] [place] [address] Referral ID Status Reason Start Date Expiration Date V isits Requested Visits Authorized [id number] Authorized 06/16/2023 06/15/2024 1 1 Specialty Diagnoses / Procedures Referred By Randi t Referred To Contact Radiology Diagnoses Left hand pain Procedures XR HAND LEFT 3 VIEWS [facility] [address] [place] [address] [facility] DI[facility]NOSTIC [facility]IOLOGY [address] [place] [address] Referral ID Status Reason Start Date Expiration Date Visits Re quested Visits Authorized [id number] Closed 06/16/2023 06/15/2024 1 1 Chief Complaint and Reason for Visit Chief Complaint median nerve karel krista Chief Complaint Unknown Chief Complaint Unknown DISC DEGENERATION-THORACIC AREA Additional Source Comments INFORMATION SOURCE (unrecogn ized section and content) DATE CREATED AUTHOR 05/27/2021 [facility] DATE CREATED AUTHOR AUTHOR'S ORGANIZ ATION 03/03/2023 [facility] DATE CREATED AUTHOR AUTHOR'S ORGANIZ ATION 08/28/2023 [facility] DATE CREATED AUTHOR AUTHOR'S ORGANIZ ATION 12/23/2023 [facility] DATE CREATED AUTHOR AUTHOR'S ORGANIZ ATION 02/29/2024 [facility] DATE CREATED AUTHOR AUTHOR'S ORGANIZ ATION 03/16/2024 [facility] DATE CREATED AUTHOR AUTHOR'S ORGANIZ ATION 05/24/2024 [facility] REASON FOR VISIT (unrecogniz ed section and content) Reason Comments Hand/finger symptoms Specialty Diagnoses / Procedures Referred By Randi t Referred To Contact Radiology Diagnoses Left hand pain Procedures XR HAND LEFT 3 VIEWS [facility] [address] [place] [address] [facility] [address] [place] [address] [place] [address] Referral ID Status Reason Start Date Expiration Date Visits Re quested Visits Authorized [id number] Closed 06/16/2023 06/15/2024 1 1 Reason Comments Hand/finger symptoms Care Teams (unrecognized sec tion and content) Science Analyst Relationship Specialty Start Date End Date Yesy Covarrubias OT [address] [place] [address] [place] [address] Occupational Therapist Occupational Therapy 06/30/20 Aliza Aguilar MD [address] [place] [address] Physician Orthopaedic Hand Service 06/30/20 Science Analyst Relationship Specialty Start Date End Date Yesy Covarrubias OT [address] [facility] [place] [address] Occupational Therapist Occupational Therapy 06/30/20 Aliza Aguilar MD [address] [place] [address] Physician Orthopaedic Hand Service 06/30/20 Science Analyst Relationship Specialty Start Date End Date Yesy Covarrubias OT [address] [place] [address] [place] [address] Occupational Therapist Occupational Therapy 06/30/20 Aliza Aguilar MD [address] [place] [address] Physician Orthopaedic Hand Service 06/30/20 Team Status: Active Member Role Status Dates [place] DO Primary Care Provider Active Team Status: Inactive Member Role Status Dates [place] DO Primary Care Provider Active Aliza Aguilar Attending Provider Active Science Analyst Relationship Specialty Start Date End Date Yesy Covarrubias, OT [address] [place] [address] Occupational Therapist Occupational Therapy 06/30/20 Aliza Aguilar MD [address] [place] [address] Physician Orthopaedic Hand Service 06/30/20 Science Analyst Relationship Specialty Start Date End Date Yesy Covarrubias, OT [address] [place] [address] Occupational Therapist Occupational Therapy 06/30/20 Aliza Aguilar MD [address] [place] [address] Physician Orthopaedic Hand Service 06/30/20 Team Status: Inactive Member Role Status Dates [place] DO Primary Care Provider Active Start: February 28, 2024 End: February 28, 2024 Aliza Spencer DO Attending Provider Active Start: February 28, 2024 End: February 28, 2024 Team Status: Inactive Member Role Status Dates [place] DO Primary Care Provider Active Start: May 28, 2024 End: May 28, 2024 Arturo Garland MD Active Start: May End: May 28, 2024 Yissel Fishman APRN Attending Provider Active Start: May 28, 2024 End: May 28, 2024 Goals (unrecognized section and content) [...] BE BASED ON THE PRIMARY CLINICAL RECORDS. [facility]. provides no warranty or guarantee of the accuracy or completeness of information in this document.
== END 2024-05-30 12:16 | disposition home or self-care (01) ==
LOC: MRI 12:15
PROVIDERS: PCP Family Medicine; Visit Provider Anesthesiology
DX: M48.04 Spinal stenosis, thoracic region (principal)
CPT/HCPCS: 72146

== ENCOUNTER 2024-06-03 12:57 | Outpatient (RCR) | payer BC, MEDICARE, SELFPAY | END 2024-08-13 10:11 | disposition home or self-care (01) | LOC: PT 12:57 | PROVIDERS: PCP Family Medicine | DX: D69.2 Other nonthrombocytopenic purpura (principal); M25.50 Pain in unspecified joint; M54.6 Pain in thoracic spine | CPT/HCPCS: 36415; 85007; 85027; 86038; 97010; 97014; 97110; 97112; 97113; 97140; 97163 ==

== ENCOUNTER 2024-06-03 14:32 | Outpatient (OUT) | payer BC, MEDICARE, SELFPAY ==
[2024-06-03 15:00] LABS: Hematocrit 28.1 % (36.0-48.0); Hemoglobin 7.9 g/dL (12.0-16.0); Mean Corpuscular HGB Conc 28.1 g/dL (29.9-35.2); Mean Corpuscular Hemoglobin 17.7 pg (26.7-34.0); Mean Platelet Volume 8.8 fL (9.5-13.5); Platelet Count 617 10^3/uL (150-450); Red Blood Count 4.46 10^6/uL (4.20-5.40); Red Cell Distribution Width 22.2 % (11.0-15.0); White Blood Count 8.3 10^3/uL (4.0-11.0)
[2024-06-03 15:32] LABS: Lymphocytes Absolute Manual 0.66 10^3/uL (1.20-3.80)
[2024-06-03 15:33] LABS: Anisocytosis 1+; Basophilic Stippling 1+; Eosinophils Absolute Manual 0.16 10^3/uL (0.00-0.70); Hypochromasia 1+; Microcytosis 2+; Monocytes Absolute Manual 0.16 10^3/uL (0.30-0.80); Ovalocytes 1+; Poikilocytosis 1+; Polychromasia 1+
[2024-06-04 14:10] LABS: ANA Direct Negative (Negative)
== END 2024-06-03 14:33 | disposition home or self-care (01) ==
LOC: LAB 14:33
PROVIDERS: PCP Family Medicine; Visit Provider Family Medicine
DX: D69.2 Other nonthrombocytopenic purpura (principal); M25.50 Pain in unspecified joint
CPT/HCPCS: 36415; 85007; 85027; 86038

== ENCOUNTER 2024-06-05 12:52 | Outpatient (OUT) | payer BC, MEDICARE, SELFPAY ==
--- NOTE | 2024-06-05 15:46 | PM.CN ---
Consult Note: HPI Data of Consult Patient: known to practice within the last 3 years Consult date: 05/20/24 Requesting Physician: Etta Moya NP Primary Care Provider: [place] DO Consult Narrative Reason for consult: mid back pain Narrative: 63yof who presents for assessment. persistent mid and low back pain. mri reviewed previously with Dr Harp, which shows multiple levels of disc bulging, arthropathy, and stenosis, worst at t10-11 and t11-12. continues in provider directed home exercise program >6 weeks, with limited benefit. Continues to have moderate to severe thoracic pain, sharp increasing with all activity and improved with lying down. Patient has failed to benefit from TPIs. Patient rating pain today 6/10. Since last visit, patient has continued to utilize zanaflex 4mg TID PRN norco 5-325mg TID PRN with mild relief, pain never less than 5/10. Patient was prescribed butrans 5mcg/hr patch q7days by Dr Harp and she continued to utilize xanax and norco. upcoming aquahterapy. cc:: CC: Etta Moya NP Review of Systems ROS Status of ROS 10 or more systems reviewed and unremarkable except as noted in history and below Musculoskeletal Reports: back pain PFSH PFSH Medical History (Updated 02/23/24 @ 14:20 by Keisha Jones NP) Anemia ?D64.9 - Anemia, unspecified (ICD-10) History of blood transfusion (1997) ?Z92.89 - Personal history of other medical treatment (ICD-10) Panic attacks ?F41.0 - Panic disorder [episodic paroxysmal anxiety] (ICD-10) Depression ?F32.A - Depression, unspecified (ICD-10) Anxiety ?F41.9 - Anxiety disorder, unspecified (ICD-10) COVID-19 ?U07.1 - COVID-19 (ICD-10) Chronic obstructive pulmonary disease ?J44.9 - Chronic obstructive pulmonary disease, unspecified (ICD-10) Migraine ?G43.909 - Migraine, unspecified, not intractable, without status migrainosus (ICD-10) Urinary tract infection ?N39.0 - Urinary tract infection, site not specified (ICD-10) Presence of vena cava filter ?Z95.828 - Presence of other vascular implants and grafts (ICD-10) Hypertension ?I10 - Essential (primary) hypertension (ICD-10) Osteoarthritis ?M19.90 - Unspecified osteoarthritis, unspecified site (ICD-10) Hypothyroid ?E03.9 - Hypothyroidism, unspecified (ICD-10) Stage 3 chronic kidney disease ?N18.30 - Chronic kidney disease, stage 3 unspecified (ICD-10) Colitis ?K52.9 - Noninfective gastroenteritis and colitis, unspecified (ICD-10) DVT (deep venous thrombosis) ?I82.409 - Acute embolism and thrombosis of unspecified deep veins of unspecified lower extremity (ICD-10) Surgical History S/P epidural steroid injection ?Z92.241 - Personal history of systemic steroid therapy (ICD-10) H/O hand surgery ?Z98.890 - Other specified postprocedural states (ICD-10) History of carpal tunnel release ?Z98.890 - Other specified postprocedural states (ICD-10) History of bladder suspension procedure ?Z98.890 - Other specified postprocedural states (ICD-10) ?Z87.448 - Personal history of other diseases of urinary system (ICD-10) History of hernia repair ?Z98.890 - Other specified postprocedural states (ICD-10) ?Z87.19 - Personal history of other diseases of the digestive system (ICD-10) Hx of cholecystectomy ?Z90.49 - Acquired absence of other specified parts of digestive tract (ICD-10) H/O colonoscopy ?Z98.890 - Other specified postprocedural states (ICD-10) History of esophagogastroduodenoscopy (EGD) ?Z98.890 - Other specified postprocedural states (ICD-10) History of decompression of ulnar nerve ?Z98.890 - Other specified postprocedural states (ICD-10) History of appendectomy ?Z90.49 - Acquired absence of other specified parts of digestive tract (ICD-10) History of hysterectomy ?Z90.710 - Acquired absence of both cervix and uterus (ICD-10) Delivery by section History of laparoscopy ?Z98.890 - Other specified postprocedural states (ICD-10) Family History Other Cancer Family history of aneurysm Family history of diabetes mellitus Family history of heart disease Family history of hypertension Social History Within the past year, how often did you have a drink containing alcohol: never Score interpretation: A score less than 3 is consistent with normal alcohol consumption. Smoking status: Former smoker Non-prescribed substance use: denies use Highest level of school completed/degree received: some college, no degree Meds Home Medications and Allergies Home Medications ?Medication ?Instructions ?Recorded ?Confirmed ?Type acyclovir 400 mg tablet 400 mg PO DAILY 06/16/23 05/13/24 History amitriptyline 100 mg tablet 100 mg PO BEDTIME 06/16/23 05/13/24 History aripiprazole 10 mg tablet 10 mg PO BEDTIME 06/16/23 05/13/24 History atorvastatin 10 mg tablet 10 mg PO QDAY 06/16/23 05/13/24 History biotin 10,000 mcg-keratin 100 mg 1 tab PO QDAY 06/16/23 05/13/24 History tablet (Biotin Plus Keratin) shsfpvdpwj-nnhpbsilbwqpd-ktefnesu 1 cap PO Q6H PRN pain 06/16/23 05/13/24 History 50 mg-300 mg-40 mg capsule cholecalciferol (vitamin D3) 50 50 mcg PO DAILY 06/16/23 05/13/24 History mcg (2,000 unit) capsule (Vitamin D3) cyanocobalamin (vitamin B-12) 1,000 mcg IM .monthly 06/16/23 05/13/24 History 1,000 mcg/mL injection solution fremanezumab-vfrm 225 mg/1.5 mL 225 mg subcut .monthly 06/16/23 05/13/24 History subcutaneous auto-injector (Ajovy) hydrochlorothiazide 12.5 mg tablet 12.5 mg PO QDAY 06/16/23 05/13/24 History hydrocodone 5 mg-acetaminophen 325 1 tab PO TID PRN pain 06/16/23 05/02/24 History mg tablet hydroxyzine HCl 25 mg tablet 25 mg PO BEDTIME 06/16/23 05/13/24 History levothyroxine 125 mcg tablet 125 mcg PO .every morning 06/16/23 05/13/24 History linaclotide 72 mcg capsule 145 mcg PO QDAY 06/16/23 05/13/24 History (Linzess) lisinopril 5 mg tablet 5 mg PO QDAY 06/16/23 05/13/24 History melatonin 10 mg capsule 10 mg PO DAILY 06/16/23 05/13/24 History montelukast 10 mg tablet 10 mg PO QDAY 06/16/23 05/13/24 History omeprazole 40 mg capsule,delayed 40 mg PO BID 06/16/23 05/13/24 History release potassium chloride 10 mEq 20 meq PO BID 06/16/23 05/13/24 History tablet,extended release(part/cryst) vilazodone 40 mg tablet 40 mg PO QDAY 06/16/23 05/13/24 History vit C 250 mg-vit E 90 mg-zinc 40 1 tab PO BID 06/16/23 05/13/24 History mg-copper 1 vq-eucygz-swhxpj capsule (PreserVision AREDS-2) warfarin 1 mg tablet 1 mg PO .qtuesday 06/16/23 05/13/24 History warfarin 2 mg tablet 2 mg PO QDAY 06/16/23 05/13/24 History aspirin 81 mg tablet,delayed 81 mg PO DAILY 07/17/23 05/13/24 History release (Adult Aspirin Regimen) meclizine 12.5 mg tablet 12.5 mg PO BID PRN dizziness 07/17/23 05/13/24 History ondansetron HCl 4 mg tablet 4 mg PO Q12H PRN nausea and 07/17/23 05/13/24 History vomiting fluticasone fur. 200 mcg-umeclid 1 inh inhalation Q24H 02/23/24 05/13/24 History 62.5 mcg-vilant 25 mcg inhalat.powder (Trelegy Ellipta) tizanidine 4 mg tablet 4 mg PO TID 02/23/24 05/13/24 History sucralfate 1 gram tablet 1 g PO Q6H 4 weeks #112 tabs 02/28/24 05/13/24 Rx lidocaine 5 % topical patch 1 patch topical Q24H #30 ea 02/29/24 05/13/24 Rx buprenorphine 5 mcg/hour weekly 1 patch transdermal Q7D #4 ea 05/20/24 Rx transdermal patch (Butrans) Allergies Allergy/AdvReac Type Severity Reaction Status Date / Time Iodinated Contrast Media Allergy Unknown Verified 05/13/24 07:48 latex Allergy Unknown Verified 05/13/24 07:48 erythromycin base AdvReac Severe Unknown Verified 05/13/24 07:48 Penicillins AdvReac Severe Anaphylaxis Verified 05/13/24 07:48 cephalexin [From Keflex] AdvReac Intermediate Hives Verified 05/13/24 07:48 doxycycline AdvReac Intermediate Hives Verified 05/13/24 07:48 iodine AdvReac Intermediate Hives Verified 05/13/24 07:48 morphine AdvReac Intermediate Vomiting Verified 05/13/24 07:48 oxycodone [From Percocet] AdvReac Intermediate Vomiting Verified 05/13/24 07:48 procaine [From Novocain] AdvReac Intermediate Migraine Verified 05/13/24 07:48 ciprofloxacin [From Cipro] AdvReac Mild Hives Verified 05/13/24 07:48 Exam Narrative Exam Narrative: Psych-alert and oriented x 3. Attentive and appropriate, constitutionally normal, displays normal mood and affect per situation.? There are no obvious deficits in memory, reasoning, or intellect.? Skin-no obvious rashes, bruising, erythema noted to the patient's area of pain. Extremities- extremities are warm with minimal edema and palpable pulses. Thoracic - tenderness to palpation noted in the left thoracic spine and paraspinal musculature.?Multiple trigger points expressed on palpation. Range of motion is slightly diminished with these motions due to pain. Coordination remains intact.? Gait remains non-antalgic. Constitutional Documenting provider has reviewed patient's vital signs: yes Common normals: no apparent distress, oriented x3, healthy appearing, alert and well nourished General appearance: cooperative [facility] Common normals: normocephalic, hearing grossly normal bilaterally and moist oral mucous membranes Head and scalp: normocephalic Eye Common normals: PERRL Pupil: PERRL Neck & C-Spine Common normals: full ROM General: normal visual inspection Chest Common normals: inspection of chest normal Respiratory Common normals: normal respiratory effort, no retractions and no use of accessory muscles Back & Pelvis Thoracic spine/upper back: pain with ROM, thoracic spinal tenderness, paraspinal muscle tenderness and paraspinal muscle spasm Extremity Common normals: normal to inspection and full ROM Neuro Common normals: oriented x3, CN's II-XII intact bilaterally, moves all extremities, no focal motor deficits, no sensory deficits noted and deep tendon reflexes 2+ bilaterally Sensorium/orientation: alert Motor exam: strength 5/5 throughout and no movement abnormalities noted Psych Common normals: mental status grossly normal, thought process normal, cooperative, affect normal, speech normal and activity/motor behavior normal Speech: normal speech Thought process: normal thought process Results Additional Findings Additional findings: If on a controlled substance or opioids, I have checked an [place] report on this patient and there are no aberrancies noted in the prescribing history.??If on a controlled substance or opioid a drug screen was completed and reviewed within the last year, and if there has not been a drug screen completed we ordered one today to monitor higher risk, state monitored pain medication use. As part of providing excellent, safe, comprehensive care, the following was completed at our patient's visit: 1. A medication reconciliation and review to ensure accurate knowledge of current/active medications, including asking our patients to inform us about any lccy-bgl-zsedaxe medications or herbal remedies/nutritional supplements/alternative remedies. 2. A review to specifically ensure our patients have had annual screening for screening for depression, screening for tobacco use, and screening for unhealthy alcohol use. For concerning screenings had a discussion with the patient, provided patient education, and recommended follow-up with primary care provider when appropriate. If patient noted with a risk of falling, they received education on strength, gait, and balance training to prevent future risk of falling. Assessment and Plan Assessment and Plan (1) Myofascial pain syndrome: (2) Chronic, continuous use of opioids: (3) Thoracic back pain: Qualifiers: Chronicity: chronic Back pain laterality: left Qualified Code(s): M54.6 - Pain in thoracic spine; G89.29 - Other chronic pain (4) Thoracic spondylosis: (5) Thoracic radiculopathy: (6) Disc displacement, thoracic: Plan unfortunately due to patients failure to respond to numerous medication options and intervention therapy options we are recommending she seek evaluation at another clinic. the patient may benefit from an intrathecal pain pump or SCS trial.
== END 2024-06-05 12:53 | disposition home or self-care (01) ==
LOC: PM 12:52
PROVIDERS: PCP Family Medicine; Visit Provider Nurse Practitioner
DX: M79.18 Myalgia, other site (principal); Z79.891 Long term (current) use of opiate analgesic; G89.29 Other chronic pain; M47.814 Spondylosis without myelopathy or radiculopathy, thoracic region; M54.14 Radiculopathy, thoracic region; M51.24 Other intervertebral disc displacement, thoracic region
CPT/HCPCS: G0463

== ENCOUNTER 2024-06-18 07:28 | Outpatient (RCR) | payer BC, MEDICARE, SELFPAY ==
--- OUTSIDE RECORDS SUMMARY | 2024-06-18 07:31 | XMS_ITS | CCD ---
Author Organization [facility] Care Team Providers [facility] Admissions Clerk Name Role Phone Adilia Mederos Unavailable Lilian Ferreira Unavailable Yesy Covarrubias OT Unavailable Aliza Aguilar MD Unavailable [phone] [place], DR TANK Aguillon Primary Care Unavailable LAKE, DR TANK Aguillon Consulting Unavailable LAKE, DR TANK Aguillon Attending Unavailable LKAE, DR TANK Aguillon Admitting Unavailable LAKE, DR [...] OT, Yesy Unavailable Aliza Aguilar MD. Unavailable [phone] [address] Tank Primary Care Provider Aliza Aguilar Attending Provider PROVIDER, UNKNOWN Admitting Unavailable PROVIDER, UNKNOWN Attending Unavailable PROVIDER, UNKNOWN Attending Unavailable PROVIDER, UNKNOWN Admitting Unavailable ALIZA AGUILAR. Referring Unavailable PROVIDER, UNKNOWN Admitting Unavailable PROVIDER, UNKNOWN Attending Unavailable Lake, DO Tank Aguillon Primary Care Provider DO Aliza Spencer Attending Provider Aliza Spencer [...] Unavailable Giedraitis MD, Andrius Vytautas Attending Unavailable IVY GOOD Attending Unavailable Allergies Allergy Classification Reported Allergen(s) Allergy Type Date of Onset Reaction(s) Facility (3 sources) Acetaminophen / oxyCODONE Drug Allergy stomach upset [facility] Other (3 sources) Adhesive Tape Propensity to adverse reactions rash [facility] Other (5 sources) Cephalexin; Translations: [CEPHALEXIN] Drug Allergy 12-22-[address] [facility] (10 sources) Erythromycin; Translations: [ERYTHROMYCIN] Drug Allergy 12-22-19 06 Other [facility] (7 sources) Iodine; Translations: [iodine] Drug Allergy 01-31-20 13 rash [facility] Rep[facility] (6 sources) Latex; Translations: [LATEX] Propensity to adverse reactions 12-22-19 [facility] (6 sources) Penicillin G Benzathine; Translations: [penicillin G benzathine] Drug allergy 03-18-20 23 anaphylaxis [facility] (3 sources) Procaine Drug Allergy headaches [employer] [facility] [employer] Other (2 sources) Cephalexin; Translations: [Keflex] Drug Allergy 01-31-20 13 anaphylaxis [facility] Repository (1 source) Novocain Drug allergy Unknown [place] [employer] Other (8 sources) Acetaminophen; Translations: [ACETAMINOPHEN] Drug [...] Propensity to adverse reactions 09-03-20 13 Rash [facility] (10 sources) Erythromycin Base; Translations: [ERYTHROMYCIN BASE] Propensity to adverse reactions to drug 01-24-20 Other [facility] (7 sources) Iodides; Translations: [IODIDES] Propensity to adverse reactions to drug 10-31-19 14 Hives [facility] (6 sources) Other (Review Comments!); Translations: [OTHER (REVIEW COMMENTS!)] Propensity to adverse reactions to drug 07-22-20 19 Agitation [facility] Work Phone: (1 source) Ciprofloxacin Drug Allergy [facility] Repository (1 source) Iodine (And Iodine Containting Drugs) Drug allergy (disorder) 01-31-20 13 [facility] Repository (1 source) Latex Drug allergy (disorder) 01-31-20 13 [facility] Repository (4 sources) Morphine; Translations: [MORPHINE] Drug Allergy 10-21-19 14 vomiting [facility] Repository (1 source) Penicillins Drug allergy (disorder) 01-31-20 13 [facility] Repository (1 source) Sulfonamides (Antibiotic) Drug allergy (disorder) 01-31-20 13 [facility] Repository (1 source) Darvocet-N 100 Drug allergy (disorder) 01-31-20 13 [facility] Repository (1 source) E.E.S. Drug allergy (disorder) 01-31-20 13 [facility] Repository (3 sources) Adhesive Tape; Translations: [adhesive tape] Allergy to substance 12-11-19 rash [facility] (3 sources) oxyCODONE; Translations: [oxycodone] Drug Allergy 12-11-19 stomach upset [facility] (3 sources) Procaine; Translations: [procaine] Drug Allergy 12-11-19 23 headaches [facility] (1 source) Cephalexin Drug Allergy 12-11-19 [facility] Repository (1 source) Doxycycline Drug Allergy 12-11-19 [facility] Repository (1 source) Latex Drug allergy (disorder) 12-11-19 [facility] Repository (1 source) Morphine Drug Allergy 12-11-19 [facility] Repository (1 source) Adhesive agent; Translations: [...] 0 Active take 1 capsule by mo [facility] every four hours Tiayskvzxh-AJBT-Oepdtava 50-325-40 MG 1 capsule as needed Orally [...] Active HYDROcodone-Acet aminophen 7.5-300 MG Orally Not-Taking [place] Active acyclovir 400 mg oral tablet (9 [...] daily. 0 Active Flovent Diskus A ctive Nirtezmnpgz-Shyvzgovh-Rlljcv er (1 source) Anticholinergic, Corticosteroid, beta2-Adrenergic Agonist Start: 05-28-2024 Jruurtcdrfs-Lxtffahxd-Qfsxek er (Trelegy Ellipta) 100-62.5-25 mcg blister with [...] by mouth daily. Followed in coumadin clinic [place], [place] 0 Active take 1 tablet by lisa two times weekly Warfarin Sodium 3 MG [...] 4 mg/0.1 mL nasal liquid Instill 1 [place] into one nostril (alternate sides) as needed. 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] Onset: 02-22-2023 Episodic [...] Test Name Value Interpretation Reference Range Facility [facility] 02-28-2024 L Specimen: [id number] Received: 02/28/24 Status: DUDLEY Powell Num: [id number] Spec Type: Surgical Subm Dr: Aliza Spencer DO Tissues: A Stomach - Biopsy/Polyp (ANTRUM BX) B Stomach - Biopsy/Polyp (BX FUNDAL GLAND POLYP) C Esophagus Biopsy (DISTAL ESOPH BX) D Esophagus Biopsy (UPPER ESOPH BX) Procedures: HE/8, Gross/Micro L4/4 Age/ Patient Sex Location Account Attending Physician DionnaMadan Stanley 64/F LABE[facility] [id number] Aliza Spencer DO SPEC NUM: [id number] RECD: 02/28/24 STATUS: DUDLEY POWELL NUM: [id number] SUNSHINE: 02/28/[address]: Aliza Spencer DO ENTERED: 02/28/[address]: Eben Newell SPEC TYPE: Surgical DEPT: [...] a 0.3 x 0.2 x 0.2 cm jimnéez polypoid tissue fragment, entirely submitted in A1. B. Further labeled fundal gland polyp is a 0.3 x 0.3 x 0.2 cm jiménez polypoid tissue fragment, entirely submitted in B1. Specimen: [id number] Received: 02/28/24 Status: DUDLEY Powell Num: [id number] Spec Type: Surgical Subm Dr: Aliza Spencer DO Tissues: A Stomach - Biopsy/Polyp (ANTRUM BX) B Stomach - Biopsy/Polyp (BX FUNDAL GLAND POLYP) C Esophagus Biopsy (DISTAL ESOPH BX) D Esophagus Biopsy (UPPER ESOPH BX) Procedures: Ratna, Gross/Micro L4/4 Patient: Madan Perry [id number] (Continued) Specimen: [id number] Received: 02/28/24 (Continued) Gross Description (Continued) Signed (signature on file) Steven Ruvalcaba MD 02/29/24 1501 Specimen: [id number] Received: 02/28/24 Status: DUDLEY Powell Num: [id number] Spec Type: Surgical Subm Dr: Aliza Spencer DO Tissues: A Stomach - Biopsy/Polyp (ANTRUM BX) B Stomach - Biopsy/Polyp (BX FUNDAL GLAND POLYP) C Esophagus Biopsy (DISTAL ESOPH BX) D Esophagus Biopsy (UPPER ESOPH BX) Procedures: WILEY/Ratna, Gross/Micro L4/4 Patient: Madan Perry [id number] (Continued) Specimen: [id number] Received: 02/28/24-1256 (Continued) Gross Description (Continued) C. Further labeled distal esophagus BX are 2 jiménez mucosal tissue fragments measuring 0.3 x 0.2 x 0.1 cm and 0.2 x 0.2 x 0.1 cm, entirely submitted in C1. D. Further labeled upper esophagus BX are 2 jiménez mucosal tissue fragments each measuring 0.2 x 0.1 x 0.1 cm, entirely submitted in D1. [facility] Codes [id number] Specimen: [id number] Received: 02/28/24-1256 Status: DUDLEY Powell Num: [id number] Spec Type: Surgical Subm Dr: Aliza Spencer,DO Tissues: A Stomach - Biopsy/Polyp (ANTRUM BX) B Stomach - Biopsy/Polyp (BX FUNDAL GLAND POLYP) C Esophagus Biopsy (DISTAL ESOPH BX) D Esophagus Biopsy (UPPER ESOPH BX) Procedures: /8, Gross/Micro L4/4 Patient: Madan Perry [id number] (Continued) Signed (signature on file) Steven Ruvalcaba MD 02/29/24 1501 Normal [facility] URINE CULTUREon 12-23-2023 Bacteria identified Cx Nom (U) FINAL Normal (. - .) [facility] Comment on above: Order Comment: MS CC FACILITY: [facility] [id number] Result Comment: HUA Belle CATCH MID-STREAM URINE > 10,000 BUT < 100,000 CFU/ML RESEMBLES A CONTAMINATED URINE COLLECTION Performed By: #### C -UR #### [facility] [address] [facility], [address] BASIC MET PANEL W/GFRon 12-0 7-2022 Calcium [Mass/Vol] 9.2 mg/dL Normal (8.6 - 10.6) [facility] Comment on above: Order Comment: FACIL ITY: [facility] [id number] Performed By: #### C HEM-B #### [facility] [address] [facility], [address] Chloride [Moles/Vol] 99 mmol/L Normal (98 - 107) [facility] Comment on above: Order Comment: FACIL ITY: [facility] [id number] Performed By: #### C HEM-B #### [facility] [address] [facility], [address] CO2 [Moles/Vol] 27 mmol/L Normal (22 - 30) [facility] Comment on above: Order Comment: FACIL ITY: [facility] [id number] Performed By: #### C HEM-B #### [facility] [address] [facility], [address] Creatinine [Mass/Vol] 0.74 mg/dL Normal (0.52 - 1.04) [facility] Comment on above: Order Comment: FACIL ITY: [facility] [id number] Performed By: #### C HEM-B #### [facility] [address] [facility], [address] GFR- AMER 95.6 ML/M1.7 Normal (60.0 - 140.1) [facility] Comment on above: Order Comment: FACIL ITY: [facility] [id number] Performed By: #### C HEM-B #### [facility] [address] [facility], [address] GFR-NON AFRIC-AMER 79.0 ML/M1.7 Normal (60.0 - 115.8) [facility] Comment on above: Order Comment: FACIL ITY: [facility] [id number] Performed By: #### C HEM-B #### [facility] [address] [place], [address] Glucose [Mass/Vol] 100 mg/dL Normal (74 - 106) [facility] Comment on above: Order Comment: FACIL ITY: [facility] [id number] Performed By: #### C HEM-B #### [facility] [address] [place], [address] Potassium [Moles/Vol] 4.6 mmol/L Normal (3.5 - 5.1) [facility] Comment on above: Order Comment: FACIL ITY: [facility] [id number] Performed By: #### C HEM-B #### [facility] [address] [place], [address] Sodium [Moles/Vol] 136 mmol/L Low (137 - 145) [facility] Comment on above: Order Comment: FACIL ITY: [facility] [id number] Performed By: #### C HEM-B #### [facility] [address] [place], [address] Urea nitrogen [Mass/Vol] 11 mg/dL Normal (7 - 17) [facility] Comment on above: Order Comment: FACIL ITY: [facility] [id number] Performed By: #### C HEM-B #### [facility] [address] [place], [address] Progress Noteson 08-25-2023 Work Measurement Engineer Authentication Interface Message Text CC: Left hand and wrist pain Follow up after MRI done at [facility]. Normal The [facility] System Work Measurement Engineer Authentication Interface Message Text Patient Office Note or Post OP Note Name:Madan Perry Date: 08/25/2023 CC: left wrist pain at [facility] area No chief complaint on file. [...] patient. Aliza Aguilar MD Injection Procedure.[facility] 08/25/2023 [id number] Madan Perry The patient requested an injection [...] alcohol and a dressing applied. Normal The [employer] MR wrist LT wo conon 07-20- 023 MR wrist LT wo con [facility] [place] [address] MRI Report Signed Patient: Madan Perry MR#: [id number] : 1960 Acct:[id number] Age/Sex: 63 / F ADM Date: 07/20/23 [facility] Attending Dr: Aliza Aguilar Copies to: Aliza Aguilar Ordering Provider: Aliza Aguilar Date of Service: 07/20/23 MR/MR hand LT wo con: MEDIAN NERVE COMPRESSION ([id number]) MR/MR wrist LT wo con: MEDIAN NERVE COMPRESSION ([id number]) XR/XR pre/post mri xray: MEDIAN NERVE COMPRESSION [...] Jose Dial M.D.07/21/2023 7:38 PM Dictation Location: [facility] Transcribed By: [facility] 07/21/231937 Dictated By: Jose Dial DO 07/20/23 1525 Signed By: 07/21/231937 Normal [facility] Telephone Encounteron 2022 Work Measurement Engineer Authentication Interface Message Text Spoke with patient and scheduled. Normal [facility] System Telephone Encounteron 2022 Work Measurement Engineer Authentication Interface Message Text Pt called [...] she would need something sooner. Contact pt [phone] Normal [facility] Addendum Noteon 06-16-2023 Work Measurement Engineer Authentication Interface Message Text Addended by: ALIZA AGUILAR on: 06/16/2023 11:34 AM Modules accepted: Orders Normal [facility] Progress Noteson 06-16-2023 Work Measurement Engineer Authentication Interface Message Text Patient Office [...] this patient. Aliza Aguilar MD Normal [facility] [facility] Work Measurement Engineer Authentication Interface Message Text CC: Left [...] with the findings. Left hand MACRO: None [facility] Radiology Study observation (narrative) [facility] XR Hand - left 3 ViewsOrdere d By: Alberto Llanes on 06-16-2023 U[facility]. Work Phone: US DARNELL DOP LEG BILon [...] [place] Date: 2023-01-27 17:22 Normal [facility] CBC AUTO DIFFon 01-12-2023 BASO # 0.1 103/ul Normal 0.0-0.1 [facility] Comment on above: Performed By: #### C BC #### [facility] [address] [address] [address] Rocio Hernandez Basophils/100 WBC (Bld) 1.0 % Normal 0.2-2.0 [facility] Comment on above: Performed By: #### C BC #### [facility] [address] [place] [address] Dr. Rocio Hernandez EO # 0.2 103/ul Normal 0.0-0.7 [facility] Comment on above: Performed By: #### C BC #### [facility] [address] [place] [address] Dr. Rocio Hernandez Eosinophils/100 WBC (Bld) 2.9 % Normal 0.9-7.0 [facility] Comment on above: Performed By: #### C BC #### [facility] [address] [place] [address] Dr. Rocio Hernandez Erythrocyte distribution width (RBC) [Ratio] 14.1 % Normal 11.0-15.0 [facility] Comment on above: Performed By: #### C BC #### [facility] [address] [place] [address] Dr. Rocio Hernandez Hematocrit (Bld) [Volume fraction] 41.2 % Normal 36.0-48.0 [facility] Comment on above: Performed By: #### C BC #### [facility] [address] [place] [address] Dr. Rocio Hernandez Hemoglobin (Bld) [Mass/Vol] 13.6 g/dL Normal 12.0-16.0 [facility] Comment on above: Performed By: #### C BC #### [facility] [address] [place] [address] Dr. Rocio Hernandez IG # 0.01 10e3/ul Normal 0.00-0.03 [facility] Comment on above: Performed By: #### C BC #### [facility] [address] [place] [address] Dr. Rocio Hernandez IG % 0.2 % Normal 0.0-0.5 [facility] Comment on above: Performed By: #### C BC #### [facility] [address] [place] [address] Dr. Rocio Hernandez LYMPH # 1.3 103/ul Normal 1.2-3.8 [facility] Comment on above: Performed By: #### C BC #### [facility] [address] [place] [address] Dr. Rocio Hernandez Lymphocytes/100 WBC (Bld) 21.9 % Normal 20.5-60.0 [facility] Comment on above: Performed By: #### C BC #### [facility] [address] [place] [address] Dr. Rocio Hernandez MANUAL DIFF REQ NO Normal [facility] Comment on above: Performed By: #### C BC #### [facility] [address] [place] [address] Dr. Rocio Hernandez MCH (RBC) [Entitic mass] 28.4 pg Normal 26.7-34.0 [facility] Comment on above: Performed By: #### C BC #### [facility] [address] [place] [address] Dr. Rocio Hernandez MCHC (RBC) [Mass/Vol] 33.0 g/dL Normal 29.9-35.2 [facility] Comment on above: Performed By: #### C BC #### [facility] [address] [place] [address] Dr. Rocio Hernandez MCV (RBC) [Entitic vol] 86.0 fL Normal 81.0-99.0 [facility] Comment on above: Performed By: #### C BC #### [facility] [address] [place] [address] Dr. Rocio Hernandez MONO # 0.6 103/ul Normal 0.3-0.8 [facility] Comment on above: Performed By: #### C BC #### [facility] [address] [place] [address] Dr. Rocio Hernandez Monocytes/100 WBC (Bld) 10.3 % Normal 1.7-12.0 [facility] Comment on above: Performed By: #### C BC #### [facility] [address] [place] [address] Dr. Rocio Hernandez NEUT # 3.8 103/ul Normal 1.4-6.5 [facility] Comment on above: Performed By: #### C BC #### [facility] [address] [address] [address] Rocio Hernandez Neutrophils/100 WBC (Bld) 63.7 % Normal 43.0-75.0 [facility] Comment on above: Performed By: #### C BC #### [facility] [address] [address] [address] Rocio Hernandez Platelet mean volume (Bld) [Entitic vol] 9.0 fL Critically low 9.5-13.5 [facility] Comment on above: Performed By: #### C BC #### [facility] [address] [address] [address] Rocio Hernandez PLT 360 103/ul Normal 150-450 [facility] Comment on above: Performed By: #### C BC #### [facility] [address] [address] [address] Rocio Hernandez RBC 4.79 106/ul Normal 4.20-5.40 [facility] Comment on above: Performed By: #### C BC #### [facility] [address] [address] [address] Rocio Hernandez WBC 5.9 103/ul Normal 4.0-11.0 [facility] Comment on above: Performed By: #### C BC #### [facility] [address] [address] [address] Rocio Hernandez FREE T3on 01-12-2023 FREE T3 2.31 pg/mlL Normal 2.18-3.98 [facility] Comment on above: Performed By: #### T SH, CMP, LIPID, FT3 ####[facility] [id number] [place], [place] [address]MaDr. Rocio Hernandez FREE T4on 01-12-2023 Free T4 [Mass/Vol] 1.21 ng/dL Normal 0.76-1.46 [facility] Comment on above: Performed By: #### B 12FOL, FT4 #### [facility] [address] [address] [address] Rocio Hernandez GLYCOHEMOGLOBIN A1Con 2022 ADA RECOMMENDATION SEE BELOW Normal [facility] Comment on above: Result Comment: ADA RECOMMENDED LIMIT 4.0 - 6.0 ADA THERAPEUTIC TARGET < 7.0 ACTION SUGGESTED > 7.0 Performed By: #### A 1C ####[facility] [address] [address]Dr[address] Rocio Hernandez Glucose [Mass/Vol] 123 mg/dL Normal [facility] Comment on above: Performed By: #### A 1C ####[facility] [address] [address]Dr. Rocio Hernandez HbA1c (Bld) [Mass fraction] 5.9 % Normal 4.5-6.2 [facility] Comment on above: Performed By: #### A 1C ####[facility] [address] [address]Dr. Rocio Hernandez LIPID PROFILEon 01-12-2023 CHOL-HDL RATIO NORM SEE BELOW Normal [facility] Comment on above: Result Comment: 3.3 - 4.4 LOW RISK 4.4 - 7.1 AVERAGE RISK 7.1 - 11.0 MODERATE RISK >11.0 HIGH RISK Performed By: #### T SH, CMP, LIPID, FT3 #### [facility] [address] [address] [address] Rocio Hernandez Cholesterol [Mass/Vol] 203 mg/dL Critically high <=200 [facility] Comment on above: Performed By: #### T SH, CMP, LIPID, FT3 #### [facility] [address] [address] [address] Rocio Hernandez Cholesterol in HDL [Mass/Vol] 89 mg/dL Critically high 40-60 [facility] Comment on above: Performed By: #### T SH, CMP, LIPID, FT3 #### [facility] [address] [address] [address] Rocio Hernandez Cholesterol in LDL [Mass/Vol] 87.8 mg/dL Normal [facility] Comment on above: Performed By: #### T SH, CMP, LIPID, FT3 #### [facility] [address] [address] [address] Rocio Hernandez Cholesterol.total/C holesterol in HDL [Mass ratio] 2.3 {ratio} Normal [facility] Comment on above: Performed By: #### T SH, CMP, LIPID, FT3 #### [facility] [address] [address] [address] Rocio Hernandez HDL NORMAL > or = 60 mg/dl - LO W CARDIOVASCULAR RISK <40 mg/dl - HIGH CARDIOVASCULAR RISK Normal [facility] Comment on above: Performed By: #### T SH, CMP, LIPID, FT3 #### [facility] [address] [address] [address] Rocio Hernandez LDL CALC NORMAL SEE BELOW Normal [facility] Comment on above: Result Comment: <100 mg/dl OPTIMAL 100 - 129 mg/dl NEAR OR ABOVE OPTIMAL 130 - 159 mg/dl BORDERLINE HIGH 160 - 189 mg/dl HIGH >190 mg/dl VERY HIGH Performed By: #### T SH, CMP, LIPID, FT3 #### [facility] [address] [address] [address] Rocio Hernandez Triglyceride [Mass/Vol] 131 mg/dL Normal <=150 [facility] Comment on above: Performed By: #### T SH, CMP, LIPID, FT3 #### [facility] [address] [address] [address] Rocio Hernandez VLDL CALC 26.2 mg/dL Normal [facility] Comment on above: Performed By: #### T SH, CMP, LIPID, FT3 #### [facility] [address] [address] [address] Rocio Hernandez MICROALB CREAT RATIO RANDOMo n 01-12-2023 mALB <1.3 Normal <=30.0 [facility] Comment on above: Performed By: #### M CRR ####[facility] [address] [address]Dr. Rocio Hernandez MALB CR RATIO 13.6 mg/g Normal 0.0-29.9 [facility] Comment on above: Performed By: #### M CRR ####[facility] [address] [id number]. Rocio Hernandez MALB CR RATIO RANGE SEE BELOW Normal [facility] Comment on above: Result Comment: NO M ICROALBUMINURIA 0-29 MG/G CLINICAL MICROALBUMINURIA 30-300 MG/G MACROALBUMINURIA >300 MG/G Performed By: #### M CRR ####[facility] [address] [place], [place] [address]XoDr. Rocio Hernandez URINE CREAT 95.84 mg/dL Normal 20.00-300.00 [facility] Comment on above: Performed By: #### M CRR ####[facility] [address] [place], [place] [address]VqDr. Rocio Hernandez PROF 14(COMP METB)on 023 Albumin [Mass/Vol] 3.8 g/dL Normal 3.4-5.0 [facility] Comment on above: Performed By: #### T SH, CMP, LIPID, FT3 #### [facility] [address] [address] [address] Rocio Hernandez Albumin/Globulin [Mass ratio] 0.9 {ratio} Normal [facility] Comment on above: Performed By: #### T SH, CMP, LIPID, FT3 #### [facility] [address] [address] [address] Rocio Hernandez ALP [Catalytic activity/Vol] 111 U/L Normal 46-116 [facility] Comment on above: Performed By: #### T SH, CMP, LIPID, FT3 #### [facility] [address] [address] [address] Rocio Hernandez ALT [Catalytic activity/Vol] 42 U/L Normal 14-59 [facility] Comment on above: Performed By: #### T SH, CMP, LIPID, FT3 #### [facility] [address] [address] [address] Rocio Hernandez Anion gap [Moles/Vol] 10.8 mmol/L Normal [facility] Comment on above: Performed By: #### T SH, CMP, LIPID, FT3 #### [facility] [address] [address] [address] Rocio Hernandez AST [Catalytic activity/Vol] 24 U/L Normal 15-37 [facility] Comment on above: Performed By: #### T SH, CMP, LIPID, FT3 #### [facility] [address] [address] [address] Rocio Hernandez Bilirubin [Mass/Vol] 0.4 mg/dL Normal 0.2-1.0 [facility] Comment on above: Performed By: #### T SH, CMP, LIPID, FT3 #### [facility] [address] [place] [address] Dr. Rocio Hernandez Calcium [Mass/Vol] 9.6 mg/dL Normal 8.5-10.1 [facility] Comment on above: Performed By: #### T SH, CMP, LIPID, FT3 #### [facility] [address] [place] [address] Dr. Rocio Hernandez Chloride [Moles/Vol] 93 mmol/L Critically low 98-107 [facility] Comment on above: Performed By: #### T SH, CMP, LIPID, FT3 #### [facility] [address] [place] [address] Dr. Rocio Hernandez CO2 [Moles/Vol] 31.2 mmol/L Normal 21.0-32.0 [facility] Comment on above: Performed By: #### T SH, CMP, LIPID, FT3 #### [facility] [address] [place] [address] Dr. Rocio Hernandez Creatinine [Mass/Vol] 1.02 mg/dL Normal 0.55-1.02 [facility] Comment on above: Performed By: #### T SH, CMP, LIPID, FT3 #### [facility] [address] [place] [address] Dr. Rocio Hernandez EGFR-AF [place]LANDER >60 Normal >=60 [facility] Comment on above: Performed By: #### T SH, CMP, LIPID, FT3 #### [facility] [address] [place] [address] Dr. Rocio Hernandez EGFR-NON AF [place]ER 55 mL/min/1.73m2 Critically low >=60 [facility] Comment on above: Performed By: #### T SH, CMP, LIPID, FT3 #### [facility] [address] [address] [address] Rocio Hernandez Globulin (S) [Mass/Vol] 4.4 g/dL Normal [facility] Comment on above: Performed By: #### T SH, CMP, LIPID, FT3 #### [facility] [address] [address] [address] Rocio Hernandez Glucose [Mass/Vol] 102 mg/dL Normal 74-106 [facility] Comment on above: Performed By: #### T SH, CMP, LIPID, FT3 #### [facility] [address] [place] [address] Dr. Rocio Hernandez Potassium [Moles/Vol] 4.0 mmol/L Normal 3.5-5.1 [facility] Comment on above: Performed By: #### T SH, CMP, LIPID, FT3 #### [facility] [address] [place] [address] Dr. Rocio Hernandez Protein [Mass/Vol] 8.2 g/dL Normal 6.4-8.2 [facility] Comment on above: Performed By: #### T SH, CMP, LIPID, FT3 #### [facility] [address] [place] [address] Dr. Rocio Hernandez Sodium [Moles/Vol] 131 mmol/L Critically low 136-145 [facility] Comment on above: Performed By: #### T SH, CMP, LIPID, FT3 #### [facility] [address] [address] [address] Rocio Hernandez Urea nitrogen [Mass/Vol] 6.0 mg/dL Critically low 7.0-18.0 [facility] Comment on above: Performed By: #### T SH, CMP, LIPID, FT3 #### [facility] [address] [place] [address] Dr. Rocio Hernandez Urea nitrogen/Creatinine [Mass ratio] 5.9 mg/mg Normal [facility] Comment on above: Performed By: #### T SH, CMP, LIPID, FT3 #### [facility] [address] [place] [address] Dr. Rocio Hernandez TSHon 01-12-2023 TSH 5.647 uIU/mL Critically high 0.358-3.740 [facility] Comment on above: Performed By: #### T SH, CMP, LIPID, FT3 #### [facility] [address] [address] [address] Rocio Hernandez VIT B12 AND FOLATEon 023 Cobalamin (Vitamin B12) [Mass/Vol] 1189.0 pg/mL Critically high 193.0-986.0 [facility] Comment on above: Performed By: #### B 12FOL, FT4 #### [facility] [address] [address] [address] Rocio Hernandez FOLATE 27.30 ng/mL Normal 8.60-58.90 [facility] Comment on above: Performed By: #### B 12FOL, FT4 #### [facility] [address] [address] [address] Rocio Hernandez MG MAMM SCREEN 3D TANIA CADon 12-19-2022 MG MAMM SCREEN 3D TANIA CAD Patient: MADAN PERRY Exam Date: 12/19/2022 : 1960 Gender:F Ordering : DR [place] D.O. Admission #: [id number] Family : Order #: [id number] CLICK HERE TO VIEW EXAM RADIOLOGY REPORT [...] ovarian cancer at age 54. LOCATION: [facility] BREAST COMPOSITION: Scattered areas fibroglandular [...] Flores M.D. on 12/19/2022 at 11:19 Normal [facility] XR DEXA BONE DENSITYon 12-19 XR DEXA [...] by: LIZ FLORES Date: 2022-12-19 10:01 Normal [facility] FREE T3on 03-22-2022 FREE T3 2.43 pg/mlL Normal 2.18-3.98 [facility] Comment on above: Performed By: #### B MP, FT3, TSH ####[facility] [address] [place], [place] [address]NqClem Hernandez FREE T4on 03-22-2022 Free T4 [Mass/Vol] 1.43 ng/dL Normal 0.76-1.46 [facility] Comment on above: Performed By: #### F T4 ####[facility] [address] [place], [place] [address]Ui. Rocio Hernandez PROF CHEM 8 (BAS METB)on Anion gap [Moles/Vol] 10.2 mmol/L Normal [facility] Comment on above: Performed By: #### B MP, FT3, TSH ####[facility] [address] [address]Dr. Rocio Hernandez Calcium [Mass/Vol] 8.8 mg/dL Normal 8.5-10.1 [facility] Comment on above: Performed By: #### B MP, FT3, TSH ####[facility] [address] [address]Dr. Rocio Hernandez Chloride [Moles/Vol] 104 mmol/L Normal 98-107 [facility] Comment on above: Performed By: #### B MP, FT3, TSH ####[facility] [address] [address]Dr. Rocio Hernandez CO2 [Moles/Vol] 31.7 mmol/L Normal 21.0-32.0 [facility] Comment on above: Performed By: #### B MP, FT3, TSH ####[facility] [address] [address]Dr. Rocio Hernandez Creatinine [Mass/Vol] 0.96 mg/dL Normal 0.55-1.02 [facility] Comment on above: Performed By: #### B MP, FT3, TSH ####[facility] [address] [address]Dr. Rocio Hernandez EGFR-AF [place] >60 Normal >=60 [facility] Comment on above: Performed By: #### B MP, FT3, TSH ####[facility] [address] [address]Dr. Rocio Hernandez EGFR-NON AF [place] 59 mL/min/1.73m2 Critically low >=60 [facility] Comment on above: Performed By: #### B MP, FT3, TSH ####[facility] [address] [address]Dr. Rocio Hernandez Glucose [Mass/Vol] 110 mg/dL Critically high 74-106 [facility] Comment on above: Performed By: #### B MP, FT3, TSH ####[facility] [address] [address]Dr. Rocio Hernandez Potassium [Moles/Vol] 2.9 mmol/L Critically low 3.5-5.1 [facility] Comment on above: Result Comment: TEST REPEATED CRITICAL VALUE VERIFIED Performed By: #### B MP, FT3, TSH ####[facility] [address] [address]Dr. Rocio Hernandez Sodium [Moles/Vol] 141 mmol/L Normal 136-145 [facility] Comment on above: Performed By: #### B MP, FT3, TSH ####[facility] [address] [address]Dr. Rocio Hernandez Urea nitrogen [Mass/Vol] 12.0 mg/dL Normal 7.0-18.0 [facility] Comment on above: Performed By: #### B MP, FT3, TSH ####[facility] [address] [address]Dr. Rocio Hernandez Urea nitrogen/Creatinine [Mass ratio] 12.5 mg/mg Normal [facility] Comment on above: Performed By: #### B MP, FT3, TSH ####[facility] [address] [address]Dr. Rocio Hernandez TSHon 03-22-2022 TSH 0.137 uIU/mL Critically low 0.358-3.740 [facility] Comment on above: Performed By: #### B MP, FT3, TSH ####[facility] [address] [address]Dr. Rocio Hernandez Patient Letter FTon 2020 Patient Letter FT (Inserted Image. Wilda ble to display) May 26, 2021 MADAN PERRY [address] [place] [address] MADAN PERRY 1960 Dear Madan, This is a SECOND ATTEMPT to remind you that you are due for an appointment with [facility] [employer] [employer] [facility]. Please contact our office at [phone] to schedule an appointment at your earliest convenience. Thank you, [facility] Normal [facility] Reminderson 05-26-2021 Reminders - From: Jane Onofre To: GINA - Reminders/Recalls; Sent: 01/18/2021 12:33:31 EDT Show up: 04/25/2021 12:33:00 EDT Subject: Ambulatory Reminder Due Date/Time: 06/09/2021 12:33:00 EDT Reminder/Recall sara peace 5 year colon 06/09/2021 first recall letter second rcall letter Normal [facility] Patient Letter FTon 2020 Patient Letter FT (Inserted Image. Wilda ble to display) May 05, 2021 MADAN PERRY [address] [place] [address] MADAN PERRY 1960 Dear Madan, This is a reminder that you are due for an appointment with [facility]. Please contact our office at [phone] to schedule an appointment at your earliest convenience. Thank you, [facility] Vital Signs Date Time Vital Sign Value Performing Clinician Facility 05-28-2024 13:19-0400 Body height 161.29 cm DO Tank [employer] Work Phone: [facility] 05-28-2024 13:19-0400 Body mass index (BMI) [Ratio] 26.5 kg/m2 DO [place] Work Phone: [facility] 05-28-2024 13:19-040 Body weight 69.11 kg DO [place] Work Phone: [facility] 05-09-2022 16:35-0400 Body height 161.29 cm Adilia Mederos Other [facility] Other 05-09-2022 16:35-0400 Body mass index (BMI) [Ratio] 25.63 kg/m2 Adilia Mederos Other [facility] Other 05-09-2022 16:35-0400 Body temperature 97.8 [degF] Adilia Mederos Other [facility] Other 05-09-2022 16:35-0400 Body weight 66.68 kg Adilia Mederos Other [facility] Other 05-09-2022 16:35-0400 Diastolic blood pressure 79 mm[Hg] Adilia Mederos Other [facility] Other 05-09-2022 16:35-0400 Respiratory rate 18 /min Adilia Mederos Other [facility] Other 05-09-2022 16:35-0400 SaO2% (BldA) [Mass fraction] 98 % Adilia Mederos Other [facility] Other 05-09-2022 16:35-0400 Systolic blood pressure 136 mm[Hg] Adilia Mederos Other [facility] Other 07-21-2021 16:05-0400 Body height 161.29 cm Lilian Hanna Other [facility] Other 07-21-2021 16:05-0400 Body mass index (BMI) [Ratio] 26.5 kg/m2 Lilian Hanna Other [facility] Other 07-21-2021 16:05-0400 Body temperature 96.2 [degF] Lilian Ferreira Other [facility] Other 07-21-2021 16:05-0400 Body weight 68.95 kg Lilian Ferreira Other [facility] Other 07-21-2021 16:05-0400 Diastolic blood pressure 95 mm[Hg] Lilian Ferreira Other [facility] Other 07-21-2021 16:05-0400 Respiratory rate 18 /min Lilian Ferreira Other [facility] Other 07-21-2021 16:05-0400 SaO2% (BldA) [Mass fraction] 99 % Lilian Ferreira Other [facility] Other 07-21-2021 16:05-0400 Systolic blood pressure 132 mm[Hg] Lilian Ferreira Other [facility] Other 06-22-2021 14:20-0400 Body height 161.29 cm Adilia Mederos Other [facility] Other 06-22-2021 14:20-0400 Body mass index (BMI) [Ratio] 25.98 kg/m2 Adilia Cardenasault Other [facility] Other 06-22-2021 14:20-0400 Body temperature 96.4 [degF] Adilia Rosa M Other [facility] Other 06-22-2021 14:20-0400 Body weight 67.59 kg Adilia Cardenasault Other [facility] Other 06-22-2021 14:20-0400 Diastolic blood pressure Adilia Cardenasault Other [facility] Other 06-22-2021 14:20-0400 Respiratory rate 18 /min Adilia Mederos Other [facility] Other 06-22-2021 14:20-0400 SaO2% (BldA) [Mass fraction] 98 % Adilia Mederos Other [facility] Other 06-22-2021 14:20-0400 Systolic blood pressure 111 mm[Hg] Adilia Mederos Other [facility] Other Encounters Encounter Date Encounter Type Care Provider Facility Start: 06-11-2024 End: 06-11-2024 ambulatory IVY AGUILARMICHELLE Not Available Start: 05-28-2024 End: 05-28-2024 ambulatory DO [place] Work Phone: [facility] Work Phone: Start: 05-28-2024 End: 05-28-2024 Patient encounter procedure DO [place] Work Phone: [facility] Work Phone: Start: 05-20-2024 End: 05-20-2024 ambulatory Meet Harp MD Facility: [place] Start: 05-13-2024 End: 05-13-2024 ambulatory Meet Harp MD Facility: [place] Start: 03-14-2024 End: 03-14-2024 ambulatory [facility] Start: 02-28-2024 End: 02-28-2024 ambulatory DO [place] Work Phone: [facility] Work Phone: Start: 02-28-2024 End: 02-28-2024 Departed Referred DO [place] Work Phone: [facility] Start: 02-20-2024 End: 02-20-2024 ambulatory [facility] Start: 01-15-2024 End: 01-15-2024 ambulatory [facility] Start: 12-04-2023 End: 12-04-2023 ambulatory Meet [facility]p MD [facility] Start: 11-06-2023 End: 11-06-2023 ambulatory [facility] MD [facility] Start: 10-09-2023 End: 10-09-2023 ambulatory Meet Harp MD Facility:[facility] Start: 08-25-2023 End: 08-25-2023 ambulatory ALIZA AGUILAR Facility:[facility] Start: 08-25-2023 End: 08-25-2023 Office outpatient visit 15 minutes Aliza Aguilar MD Work Phone: [address] [facility] Comment on above: Hand arthritis (Prim maurisio Dx) Start: 08-21-2023 End: 08-21-2023 ambulatory Meet Harp MD Facility:[facility] Start: 08-19-2023 Letter encounter Yesy Covarrubias OT Work Phone: [facility] Start: 07-31-2023 End: 07-31-2023 ambulatory Meet Harp MD Facility: [facility] Start: 07-24-2023 End: 07-24-2023 ambulatory [facility] Harp MD [facility] Start: 07-20-2023 End: 07-20-2023 Patient encounter procedure DO [place] Work Phone: [facility] [address] Work Phone: Start: 07-20-2023 End: 07-20-2023 ambulatory DO [place] Work Phone: [facility] Work Phone: Start: 07-10-2023 End: 07-10-2023 ambulatory Meet Harp MD Facility:[facility] Start: 06-16-2023 End: 06-17-2023 ambulatory UNKNOWN PROVIDER Facility:[facility] Start: 06-16-2023 End: 06-16-2023 Office outpatient visit 25 minutes Aliza Aguilar MD Work Phone: [facility] [address] [facility] [facility] Comment on above: Left hand pain (Prim maurisio Dx) Start: 06-16-2023 End: 06-16-2023 Subsequent hospital visit by physician [facility] Op Op X-Ray 1 Work Phone: [facility] [address] [facility] Diag Radiology Comment on above: Left hand pain Start: 02-07-2023 End: 02-08-[address] [place] Facility:[facility] Start: 01-27-2023 End: 01-28-[address] [place] Facility:[facility] Start: 01-23-2023 End: 02-22-2023 ambulatory SHAIKH Eduardo ROSS Facility:[facility] Start: 01-16-2023 Encounter for genera l adult medical examination without abnormal findings DR [place] [facility] Start: 01-12-2023 End: 01-13-[address] [place] Facility:[facility] Start: 01-12-2023 End: 01-13-2023 Encounter for general adult medical examination without abnormal findings DR [place] Facility:[facility] Start: 12-26-2022 End: 01-20-2023 ambulatory SHAIKH Eduardo ROSS Facility:[facility] Start: 12-19-2022 End: 12-20-[address] [place] Facility:[facility] Start: 11-23-2022 End: 12-23-2022 ambulatory SHAIKH Eduardo ROSS Facility:[facility] Start: 10-26-2022 End: 11-23-2022 ambulatory DUARTE H CDOY Facility:[facility] Start: 09-26-2022 End: 10-26-2022 ambulatory SHAIKH Eduardo ROSS Facility:[facility] Start: 08-25-2022 End: 09-25-2022 ambulatory SHAIKH Eduardo ROSS Facility:[facility] Start: 07-26-2022 End: 08-24-2022 ambulatory SHAIKH Eduardo ROSS Facility:[facility] Start: 06-26-2022 End: 07-25-2022 ambulatory SHAIKH Eduardo MARTELLD Facility:[facility] Start: 06-20-2022 End: 06-21-[address] [place] Facility:[facility] Start: 05-26-2022 End: 06-25-2022 ambulatory SHAIKH Eduardo ROSS Facility:[facility] Start: 05-13-2022 Letter encounter Yesy Covarrubias OT Work Phone: [facility] Start: 05-09-2022 End: 05-09-2022 ambulatory Adilia Mederos Other [facility] Other Start: 05-09-2022 Office outpatient vi sit [...] minutes Adilia Mederos [facility] Procedures Date Procedure Procedure Detail Performing Clinician Start: 08-25-2023 Injection 1 tendon sheath/ligament aponeurosis Aliza Aguilar MD Work Phone: Start: 06-16-2023 Radex hand minimum 3 views Aliza Aguilar MD Work Phone: Plan of Treatment Date Care Activity Detail Author Start: 06-04-2028 Tetanus vaccination Tetanus (T d or Tdap) [facility] Start: 01-13-2028 Cholesterol [Mass/volume] in Serum or Plasma [facility]olesterol [facility] Start: 05-28-2024 Patient referral [facility] Work Phone: Start: 08-25-2023 End: 08-25-2023 Patient encounter procedure 08/25/2023 11:30 AM EST Office Visit [address] [facility] [address] [place] [address] Aliza Aguilar MD [address] [place] [address] [facility] Start: 07-20-2023 XR pre/post mri xray XR pre/post mri xray [facility] Start: 07-20-2023 [facility] Start: 07-20-2023 MR Wrist - left WO contrast [facility] Start: 07-20-2023 MRI of left wrist MR wrist LT wo con [facility] Start: 07-20-2023 MR Hand - left WO contrast [facility] Start: 07-20-2023 MRI of left hand MR hand LT wo con [facility] Start: 06-25-2023 Influenza vaccination Influenza Vacc ine (#[facility] Start: 06-16-2023 End: 06-16-2024 MR Wrist - left WO contrast MR WRIST LEFT W/O Imaging Routine Left hand pain Expected: 06/16/2023, Expires: 06/16/[address] [facility] Phone: Comment on above: Expected: 06/16/2023 , Expires: 06/16/2024 Start: 05-26-2023 COVID-19 Vaccine ( season) COVID-19 Vaccine ( season) [facility] Start: 05-26-2023 Influenza vaccination Influenza Vacc ine (#1) [facility] Start: 06-25-2022 Influenza vaccination Influenza Vacc ine (#1) [facility] Start: 06-08-2022 COVID-19 Vaccine (4 - Booster for Pfizer series) COVID-19 Vaccine (4 - Booster for Pfizer series) [facility] Start: 2019 RSV vaccine (optiona l 60+ years) RSV vaccine (optional 60+ years) [facility] Start: 09-25-2014 Annual wellness visit Annual W ellness Visit ([id number]) [facility] Start: 2009 Measurement of occul t [...] for malign ant neoplasm of breast Mammography [facility] Start: 02-11-1980 Screening for malign ant neoplasm of cervix Pap Smear [facility] Start: 1977 Hepatitis C screening Hepatitis C An tibody [facility] Start: 1974 HIV screening HIV Test [facility] Start: 1960 COVID-19 Vaccine ( formulation) COVID-19 Vaccine ( formulation) [facility] Start: 1960 Screening for malign ant neoplasm of colon Colonoscopy [facility] Patient referral [facility] Work Phone: Immunizations Immunization Date Immunization Notes Care Provider [facility] 08-11-2023 influenza, injectabl e, quadrivalent, preservative free Aliza Aguilar MD Work Phone: [facility] 08-11-2023 Respiratory syncytia l virus (RSV), vaccine, bivalent, protein subunit RSV prefusion F, diluent reconstituted, 0.5 mL, preservative free (ETI=[id number]) Aliza Aguilar MD Work Phone: [facility] 06-18-2022 influenza, injectabl e, quadrivalent, preservative free Aliza Aguilar MD Work Phone: [facility] 06-18-2022 influenza virus vacc ine, unspecified formulation Aliza Aguilar MD Work Phone: [facility] 02-05-2022 Pfizer Monovalent (1 2+ yrs) SARS-COV-2 (COVID-19) vaccine, mRNA, spike protein, LNP, pres. free, 30 mcg/0.3mL dose, betito-sucrose (IIS=886) Aliza Aguilar MD Work Phone: [facility] 08-11-2021 influenza, injectabl e, quadrivalent, preservative free Yesy Marci OT Work Phone: [facility] 08-11-2021 influenza virus vacc ine, unspecified formulation Yesy Marci OT Work Phone: [facility] 07-24-2020 zoster vaccine recombinant K sakshin Marci OT Work Phone: [facility] 07-11-2020 Influenza, injectabl e, Madin [place] Canine Kidney, preservative free, quadrivalent Yesy Marci OT Work Phone: [facility] 04-18-2020 zoster vaccine recombinant K dengryn Marci OT Work Phone: [facility] 08-28-2019 Influenza, injectabl e, Madin Troy Canine Kidney, preservative free, quadrivalent Yesy Marci OT Work Phone: [facility] 07-01-2019 influenza, high dose seasonal, preservative-free Yesy Marci OT Work Phone: [facility] 06-25-2019 pneumococcal polysac charide vaccine, 23 valent Yesy Marci OT Work Phone: [facility] 07-06-2018 influenza, injectabl e, quadrivalent, contains preservative Yesy Marci OT Work Phone: [facility] 06-04-2018 tetanus toxoid, redu karen diphtheria toxoid, and acellular pertussis vaccine, adsorbed Yesy Marci OT Work Phone: [facility] 08-19-2017 influenza, injectabl e, quadrivalent, preservative free Yesy Marci OT Work Phone: [facility] 08-09-2017 influenza, injectabl e, quadrivalent, contains preservative Yesy Marci OT Work Phone: [facility] 08-01-2016 influenza, injectabl e, quadrivalent, preservative free Yesy Marci OT Work Phone: [facility] 07-11-2015 influenza, injectabl e, madin zakia canine kidney, preservative free Yesy Marci OT Work Phone: [facility] 07-11-2015 pneumococcal conjuga te vaccine, 13 valent Yesy Marci OT Work Phone: [facility] 08-13-2009 novel influenza-H1N1 -09, preservative-free, injectable Yesy Marci OT Work Phone: [facility] 07-17-2009 influenza virus vacc ine, unspecified formulation Yesy Marci OT Work Phone: [facility] 08-15-2008 influenza virus vacc ine, unspecified formulation Yesy Marci OT Work Phone: [facility] Payers Date Payer Category Payer Self-pay [id number] 2018 Unknown [id number] [id number] 2013 Medicare [id number]. 1.13.56.2.7.3.67 [id number] 1959 [facility] [id number] 2.16.840.1.001588.19 1959 Medicare [id number] 2.16.840.1.053905.19 1959 Unknown [id number] 2.16.840.1.015541.3.579.2.593 1959 Unknown [id number] 2.16.840.1.152285.3.579.2.593 1959 Unknown [id number] 2.16.840.1.130613.3.579.2.593 1959 Unknown [id number] 2.16.840.1.149471.3.579.2.593 1959 Unknown [id number] 2.16.840.1.974157.3.579.2.593 1959 Unknown [id number] 2.16.840.1.175892.3.579.2.593 1959 Unknown [id number] 2.16.840.1.944594.3.579.2.593 1959 Unknown [id number] 2.16.840.1.306444.3.579.2.59 1959 Unknown [id number] 2.16.840.1.281636.3.579.2.59 1959 Unknown [id number] 2.16.840.1.282815.3.579.2.59 1959 Unknown [id number] 2.16.840.1.620958.3.579.2.59 1959 Unknown [id number] 2.16.840.1.013032.3.579.2.593 1959 Unknown [id number] 2.16.840.1.241147.3.579.2.59 1959 Unknown [id number] 2.16.840.1.142429.3.579.2.593 1959 Unknown [id number] 2.16.840.1.121624.3.579.2.59 1959 Unknown [id number] 2.16.840.1.938975.3.579.2.593 1959 Unknown [id number] 2.16.840.1.155306.3.579.2.59 1959 Unknown [id number] 2.16.840.1.762254.3.579.2.593 1959 Unknown [id number] 2.16.840.1.787304.3.579.2.593 1959 Unknown [id number] 2.16.840.1.273336.3.579.2.593 1959 Unknown [id number] 2.16.840.1.990893.3.579.2.732 1959 Unknown [id number] 2.16.840.1.287272.3.579.2.732 1959 Unknown [id number] 2.16.840.1.067108.3.579.2.732 1959 Unknown [id number] 2.16.840.1.758076.3.579.2.1286 1959 Unknown [id number] 2.16.840.1.586787.3.579.2.1286 1959 Unknown [id number] 2.16.840.1.420844.3.579.2.196 1959 Unknown [id number] 2.16.840.1.397546.3.579.2.196 1959 Unknown [id number] 2.16.840.1.184571.3.579.2.196 1959 Unknown [id number] 2.16.840.1.815579.3.579.2.196 1959 Unknown [id number] 2.16.840.1.698812.3.579.2.196 1959 Unknown [id number] 2.16.840.1.051998.3.579.2. 1959 Unknown [id number] 2.16.840.1.234950.3.579.2. 1959 Unknown [id number] 2.16.840.1.359435.3.579.2.196 1959 Unknown [id number] 2.16.840.1.631431.3.579.2.196 1959 Unknown [id number] 2.16.840.1.054872.3.579.2.196 1959 Unknown [id number] 2.16.840.1.771713.3.579.2.1259 Medicare Medicare Nonpatient [id number] Unknown [id number] 2.16.840.1.244846.3.579.2.531 Unknown [id number] 2.16.840.1.738028.3.579.2.531 Social History Date Type Detail Facility Unknown if ever smoked [employer] [facility] [employer] Other Sex Assigned At [facility] Start: 11-18-2018 End: 05-31-2019 Tobacco smoking status [facility] Ex-smoker [facility] tobacco use [facility] Start: 05-31-2019 Tobacco use and exposure Smokeless tobacco non-user [facility] Start: 04-07-2020 Alcohol intake Lifetime non-d han (finding) [facility] Start: 07-09-2019 History SDOH Alcohol Frequency 1 [facility] Start: 1960 Sex Assigned At Not on file [facility] Start: 1960 Sex Assigned At Female [facility] Medical Equipment Procedure Code Equipment Code Equipment Origin al Text Equipment Identifier Dates [facility] [employer] Ea1 [id number] - [id number] Start: 07-22-2019 Clinical Notes 06-22-2021 to [...] pain Follow up after MRI done at [facility]. Patient Office Note or Post OP Note Name:Madan Perry Date: 08/25/2023 CC: left wrist pain at [facility] area No chief complaint on file. [...] patient. Aliza Aguilar MD Injection Procedure.[facility] 08/25/2023 [id number] Madan Perry The patient requested an injection [...] a dressing applied. documented in this encounter [facility] 06-16-2023 Note Addended by: ALIZA AGUILAR on: 06/16/2023 11:34 AM Modules accepted: Orders [facility] 06-16-2023 Miscellaneous Notes Addended by: ALIZA AGUILAR on: 06/16/2023 11:34 AM Modules accepted: Orders documented in this encounter [facility] 06-16-2023 History of Presen t illness [...] continues on coumadin. documented in this encounter [facility] 05-09-2022 Evaluation note Encounter Date Diagnosis [...] Xray that was ordered outpatient by PCP [facility] 08-10-2022 NotePROCEDURE: XR FOOT RT MIN 3 VIEWS COMPARISON: None. HISTORY: Pain in right foot FINDINGS: BONES:No fracture, acute abnormality, or significant arthropathy. Mild enthesopathic spurring of the calcaneus at the Achilles insertion SOFT TISSUES:Negative. No visible soft tissue swelling. EFFUSION:None visible. OTHER: Negative. IMPRESSION: No acute abnormality Electronically authenticated by: MARTINEZ HARVEY Date: 2022-05-04 16:22[facility]10-27-2021 Evaluation note* Encounter Date Diagnosis Assessment Notes Treatment Notes Treatment Clinical Notes Jun, Swelling of left elbow (ICD-10 - M25.422) Jun, Other Patient refe rred to the ER due to swelling, ecchymosis, pain of her left elbow with no known injury. It is felt the patient needs blood work to evaluate [facility] 09-28-2021 Evaluation note* Encounter Date Diagnosis Assessment Notes Treatment Notes Treatment Clinical Notes May, Bee sting, undetermined intent, initial encounter (ICD-10 - T63.444A) May continue Xyzal and Benadryl as directed. [facility] Evaluation note* Diagnosis Left hand pain- Primary Pain in limb Left hand pain Pain in limb [facility] Left [facility] pain Pain in limb [facility] Work Phone: Evaluation note* Diagnosis Hand [...] second t roseann Hospitalization History see above [facility] Hospital Discharge instructionsAmbulatory Orders* Referral to Speech/PT/OT (PT/OT/SP) Location: None [facility] Work Phone: Summary Purpose Family History No Family History [...] Diagnoses Left hand pain Aliza Aguilar MD [address] [place] [address] Referral ID Status Reason Start Date Expiration Date Visits Requested Visits Authorized [id number] Authorized Patient Preference 06/16/2023 06/16/2024 3 3 Comments Near home, [place], [place] Specialty Diagnoses / Procedures Referred By Randi cardona Referred To Contact Radiology Diagnoses Left hand pain Procedures MR WRIST LEFT W/O Aliza Aguilar MD [address] [place] [address] [facility] MRI [address] [place] [address] Referral ID Status Reason Start Date Expiration Date V isits Requested Visits Authorized [id number] Authorized 06/16/2023 06/15/2024 1 1 Specialty Diagnoses / Procedures Referred By Randi cardona Referred To Contact Radiology Diagnoses Left hand pain Procedures XR HAND LEFT 3 VIEWS [facility] [address] [place], [place] [id number] [facility] DIAGNOSTIC RADIOLOGY [address] [place] [address] Referral ID Status Reason Start Date Expiration Date Visits Re quested Visits Authorized [id number] Closed 06/16/2023 06/15/2024 1 1 Chief Complaint and Reason for Visit Chief Complaint median nerve karel krista Chief Complaint Unknown Chief Complaint Unknown DISC DEGENERATION-THORACIC AREA Additional Source Comments INFORMATION SOURCE (unrecogn ized section and content) DATE CREATED AUTHOR 05/27/2021 Paco Garcia [facility] DATE CREATED AUTHOR AUTHOR'S ORGANIZ ATION 03/03/2023 [facility] DATE CREATED AUTHOR AUTHOR'S ORGANIZ ATION 08/28/2023 [facility] DATE CREATED AUTHOR AUTHOR'S ORGANIZ ATION 12/23/2023 [facility] DATE CREATED AUTHOR AUTHOR'S ORGANIZ ATION 02/29/2024 [facility] DATE CREATED AUTHOR AUTHOR'S ORGANIZ ATION 03/16/2024 [facility] DATE CREATED AUTHOR AUTHOR'S ORGANIZ ATION 05/24/2024 [facility] DATE CREATED AUTHOR AUTHOR'S ORGANIZ ATION 06/13/2024 [facility] EPIC REASON FOR VISIT (unrecogniz ed section and content) Reason Comments Hand/finger symptoms Specialty Diagnoses / Procedures Referred By Contcharisma t Referred To Contact Radiology Diagnoses Left hand pain Procedures XR HAND LEFT 3 VIEWS [facility] [address] [address] [facility] [address] [place] [address] [place] [phone] Referral ID Status Reason Start Date Expiration Date Visits Re quested Visits Authorized [id number] Closed 06/16/2023 06/15/2024 1 1 Reason Comments Hand/finger symptoms Care Teams (unrecognized sec tion and content) Hospital Admissions Clerk Relationship Specialty Start Date End Date Yesy Covarrubias, OT [address] [place] [address] [place] [id number] Occupational Therapist Occupational Therapy 06/30/20 Aliza Aguilar MD [address] [place] [phone] Physician Orthopaedic Hand Service 06/30/20 Hospital Admissions Clerk Relationship Specialty Start Date End Date Yesy Covarrubias OT [address] [place] [address] [place] [id number] Occupational Therapist Occupational Therapy 06/30/20 Aliza Aguilar MD [address] [place] [phone] Physician Orthopaedic Hand Service 06/30/20 Hospital Admissions Clerk Relationship Specialty Start Date End Date Yesy Covarrubias, OT [address] [place] [address] Occupational Therapist Occupational Therapy 06/30/20 Aliza Aguilar MD [address] [place] [phone] Physician Orthopaedic Hand Service 06/30/20 Team Status: Active Member Role Status Dates [place] DO Primary Care Provider Active Team Status: Inactive Member Role Status Dates [place] DO Primary Care Provider Active Aliza Aguilar Attending Provider Active Hospital Admissions Clerk Relationship Specialty Start Date End Date Yesy Covarrubias, OT [address] [facility] [place] [address] Occupational Therapist Occupational Therapy 06/30/20 Aliza Aguilar MD [address] [place] [phone] Physician Orthopaedic Hand Service 06/30/20 Hospital Admissions Clerk Relationship Specialty Start Date End Date Yesy Covarrubias, OT [address] [facility] [place] [address] Occupational Therapist Occupational Therapy 06/30/20 Aliza Aguilar MD [address] [place] [address] Physician Orthopaedic Hand Service 06/30/20 Team Status: Inactive Member Role Status Dates [place] DO Primary Care Provider Active Start: February 28, 2024 End: February 28, 2024 Aliza Spencer DO Attending Provider Active Start: February 28, 2024 End: February 28, 2024 Team Status: Inactive Member Role Status Dates [place] A [place] , DO Primary Care Provider Active Start: May [...] BE BASED ON THE PRIMARY CLINICAL RECORDS. [employer] [facility]. provides no warranty or guarantee of the accuracy or completeness of information in this document.
== END 2024-06-24 23:59 | disposition home or self-care (01) ==
LOC: HEMC 07:28
PROVIDERS: PCP Family Medicine; Visit Provider Internal Medicine Hematology & Oncology
DX: D50.9 Iron deficiency anemia, unspecified (principal); D64.9 Anemia, unspecified; K90.9 Intestinal malabsorption, unspecified; Z79.01 Long term (current) use of anticoagulants; K20.90 Esophagitis, unspecified without bleeding; K29.50 Unspecified chronic gastritis without bleeding; R53.1 Weakness; R53.83 Other fatigue
CPT/HCPCS: G0463

== ENCOUNTER 2024-06-21 13:39 | Outpatient (OUT) | payer BC, MEDICARE, SELFPAY ==
--- OUTSIDE RECORDS SUMMARY | 2024-06-21 13:44 | XMS_ITS | CCD ---
Author Organization [facility] Care Team Providers Care Capacity Planning Engineer Name Role Phone Adilia Mederos Unavailable Lilian Ferreira Unavailable Yesy Covarrubias OT Unavailable Aliza Aguilar MD Unavailable [phone], DR TANK Aguillon Primary Care Unavailable [...] Care Unavailable FAWWAD, DUARTE H Admitting Unavailable LAEK, DR TANK Aguillon Primary Care Unavailable FAWWAD, [...] OT, Yesy Unavailable Aliza Aguilar MD. Unavailable [phone] Primary Care Provider Aliza [...] Acetaminophen / oxyCODONE Drug Allergy stomach upset [employer] Other (3 sources) Adhesive Tape Propensity to adverse reactions rash [employer] Other (5 sources) Cephalexin; Translations: [CEPHALEXIN] Drug Allergy 12-22-19 [facility] (10 sources) Erythromycin; Translations: [ERYTHROMYCIN] Drug Allergy 12-22-19 06 Other [facility] (7 sources) Iodine; Translations: [iodine] Drug Allergy 01-31-20 13 rash [facility] Repository (6 sources) Latex; Translations: [LATEX] Propensity to adverse reactions 12-22-19 [facility] (6 sources) Penicillin G Benzathine; Translations: [penicillin G benzathine] Drug allergy 03-18-20 23 anaphylaxis [facility] (3 sources) Procaine Drug Allergy headaches [facility] [employer] Other (2 sources) Cephalexin; Translations: [Keflex] Drug Allergy 01-31-20 13 anaphylaxis [facility] (1 source) Novocain Drug allergy Unknown [employer] Other (8 sources) Acetaminophen; Translations: [ACETAMINOPHEN] Drug [...] Propensity to adverse reactions 09-03-20 13 [facility] (10 sources) Erythromycin Base; Translations: [ERYTHROMYCIN BASE] Propensity to adverse reactions to drug 01-24-20 Other [facility] (7 sources) Iodides; Translations: [IODIDES] Propensity to adverse reactions to drug 10-31-19 14 Hives [facility] (6 sources) Other (Review Comments!); Translations: [OTHER (REVIEW COMMENTS!)] Propensity to adverse reactions to drug 07-22-20 19 Agitation [facility] Work Phone: (1 source) Ciprofloxacin Drug Allergy [facility] (1 source) Iodine (And Iodine Containting Drugs) Drug allergy (disorder) 01-31-20 13 [facility] (1 source) Latex Drug allergy (disorder) 01-31-20 13 [facility] (4 sources) Morphine; Translations: [MORPHINE] Drug Allergy 10-21-19 14 vomiting [facility] (1 source) Penicillins Drug allergy (disorder) 01-31-20 13 [facility] (1 source) Sulfonamides (Antibiotic) Drug allergy (disorder) 01-31-20 13 [facility] (1 source) Darvocet-N 100 Drug allergy (disorder) 01-31-20 13 [facility] (1 source) E.E.S. Drug allergy (disorder) 01-31-20 13 [facility] (3 sources) Adhesive Tape; Translations: [adhesive tape] Allergy to substance 12-11-19 rash [facility] (3 sources) oxyCODONE; Translations: [oxycodone] Drug Allergy 12-11-19 stomach upset [facility] (3 sources) Procaine; Translations: [procaine] Drug Allergy 12-11-19 23 headaches [facility] (1 source) Cephalexin Drug Allergy 12-11-19 [facility] (1 source) Doxycycline Drug Allergy 12-11-19 [facility] (1 source) Latex Drug allergy (disorder) 12-11-19 [facility] (1 source) Morphine Drug Allergy 12-11-19 [facility] (1 source) Adhesive agent; [...] 0 Active take 1 capsule by mo [facility] every four hours Hlipouobik-MDOL-Gitvlvbz 50-325-40 MG 1 capsule as needed Orally [...] Active HYDROcodone-Acet aminophen 7.5-300 MG Orally Not-Taking [place] Active acyclovir 400 mg oral tablet (9 [...] daily. 0 Active Flovent Diskus A ctive Cllngapgqju-Ayhvefolo-Yoptam er (1 source) Anticholinergic, Corticosteroid, beta2-Adrenergic Agonist Start: 05-28-2024 Skvrppjpppm-Hebhblzca-Bzafwx er (Trelegy Ellipta) 100-62.5-25 mcg blister with [...] by mouth daily. Followed in coumadin clinic [place], [place] 0 Active take 1 tablet by [...] 4 mg/0.1 mL nasal liquid Instill 1 [place] into one nostril (alternate sides) as needed. 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 ANTICOAGULANTS] Onset: 02-22-2023 Episodic Other [...] Test Name Value Interpretation Reference Range Facility [facility] 02-28-2024 L Specimen: [id number] Received: 02/28/24 Status: DUDLEY Powell Num: [id number] Spec Type: Surgical Subm Dr: Aliza Spencer DO Tissues: A Stomach - Biopsy/Polyp (ANTRUM BX) B Stomach - Biopsy/Polyp (BX FUNDAL GLAND POLYP) C Esophagus Biopsy (DISTAL ESOPH BX) D Esophagus Biopsy (UPPER ESOPH BX) Procedures: HE/8, Gross/Micro L4/4 Age/ Patient Sex Location Account Attending Physician DionnaMadan Stanley 64/F LABELL [id number] Aliza Spencer DO SPEC NUM: [id number] RECD: 02/28/24 STATUS: DUDLEY POWELL NUM: [id number] SUNSHINE: 02/28/[address]: Aliza Spencer DO [...] tissue fragment, entirely submitted in B1. Specimen: [id number] Received: 02/28/24 Status: DUDLEY Powell Num: [id number] Spec Type: Surgical Subm Dr: Aliza Spencer DO Tissues: A Stomach - Biopsy/Polyp (ANTRUM BX) B Stomach - Biopsy/Polyp (BX FUNDAL GLAND POLYP) C Esophagus Biopsy (DISTAL ESOPH BX) D Esophagus Biopsy (UPPER ESOPH BX) Procedures: Ratna, Gross/Micro L4/4 Patient: Madan Perry [id number] (Continued) Specimen: [id number] Received: 02/28/24 (Continued) Gross Description (Continued) Signed (signature on file) Steven Ruvalcaba MD 02/29/24 1501 Specimen: [id number] Received: 02/28/24 Status: DUDLEY Powell Num: [id number] Spec Type: Surgical Subm Dr: Aliza Spencer DO Tissues: A Stomach - Biopsy/Polyp (ANTRUM BX) B Stomach - Biopsy/Polyp (BX FUNDAL GLAND POLYP) C Esophagus Biopsy (DISTAL ESOPH BX) D Esophagus Biopsy (UPPER ESOPH BX) Procedures: WILEY/Ratna, Gross/Micro L4/4 Patient: Madan Perry [id number] (Continued) Specimen: [id number] Received: 02/28/24-1256 (Continued) Gross Description (Continued) C. Further labeled distal esophagus BX are 2 jiménez mucosal tissue fragments measuring 0.3 x 0.2 x 0.1 cm and 0.2 x 0.2 x 0.1 cm, entirely submitted in C1. D. Further labeled upper esophagus BX are 2 jiménez mucosal tissue fragments each measuring 0.2 x 0.1 x 0.1 cm, entirely submitted in D1. [facility] Codes [id number] Specimen: [id number] Received: 02/28/24-1256 Status: DUDLEY Powell Num: [id number] Spec Type: Surgical Subm Dr: Aliza Spencer,DO Tissues: A Stomach - Biopsy/Polyp (ANTRUM BX) B Stomach - Biopsy/Polyp (BX FUNDAL GLAND POLYP) C Esophagus Biopsy (DISTAL ESOPH BX) D Esophagus Biopsy (UPPER ESOPH BX) Procedures: /8, Gross/Micro L4/4 Patient: Madan Perry [id number] (Continued) Signed (signature on file) Steven Ruvalcaba MD 02/29/24 1501 Normal [facility] URINE CULTUREon 12-23-2023 Bacteria identified Cx Nom (U) FINAL Normal (. - .) [facility] Comment on above: Order Comment: MS CC FACILITY: [facility] [id number] Result Comment: HUA Belle CATCH MID-STREAM URINE > 10,000 BUT < 100,000 CFU/ML RESEMBLES A CONTAMINATED URINE COLLECTION Performed By: #### C -UR #### [facility] [address] [facility], [address] BASIC MET PANEL W/GFRon 12-0 7-2022 Calcium [Mass/Vol] 9.2 mg/dL Normal (8.6 - 10.6) [facility] Comment on above: Order Comment: FACIL ITY: [facility] [id number] Performed By: #### C HEM-B #### [facility] [address] [facility], [address] Chloride [Moles/Vol] 99 mmol/L Normal (98 - 107) [facility] Comment on above: Order Comment: FACIL ITY: [facility] [id number] Performed By: #### C HEM-B #### [facility] [address] [facility], [address] CO2 [Moles/Vol] 27 mmol/L Normal (22 - 30) [facility] Comment on above: Order Comment: FACIL ITY: [facility] [id number] Performed By: #### C HEM-B #### [facility] [address] [facility], [address] Creatinine [Mass/Vol] 0.74 mg/dL Normal (0.52 - 1.04) [facility] Comment on above: Order Comment: FACIL ITY: [facility] [id number] Performed By: #### C HEM-B #### [facility] [address] [facility], [address] GFR- AMER 95.6 ML/M1.7 Normal (60.0 - 140.1) [facility] Comment on above: Order Comment: FACIL ITY: [facility] [id number] Performed By: #### C HEM-B #### [facility] [address] [facility], [address] GFR-NON AFRIC-AMER 79.0 ML/M1.7 Normal (60.0 - 115.8) [facility] Comment on above: Order Comment: FACIL ITY: [facility] [id number] Performed By: #### C HEM-B #### [facility] [address] [place], [address] Glucose [Mass/Vol] 100 mg/dL Normal (74 - 106) [facility] Comment on above: Order Comment: FACIL ITY: [facility] [id number] Performed By: #### C HEM-B #### [facility] [address] [place], [address] Potassium [Moles/Vol] 4.6 mmol/L Normal (3.5 - 5.1) [facility] Comment on above: Order Comment: FACIL ITY: [facility] [id number] Performed By: #### C HEM-B #### [facility] [address] [place], [address] Sodium [Moles/Vol] 136 mmol/L Low (137 - 145) [facility] Comment on above: Order Comment: FACIL ITY: [facility] [id number] Performed By: #### C HEM-B #### [facility] [address] [place], [address] Urea nitrogen [Mass/Vol] 11 mg/dL Normal (7 - 17) [facility] Comment on above: Order Comment: FACIL ITY: [facility] [id number] Performed By: #### C HEM-B #### [facility] [address] [place], [address] Progress Noteson 08-25-2023 Case Management Associate Authentication Interface Message Text CC: Left hand and wrist pain Follow up after MRI done at [facility]. Normal [facility] [employer] [facility] Case Management Associate Authentication Interface Message Text Patient Office Note [...] of this patient. Aliza Aguilar MD Injection Procedure.[facility] 08/25/2023 [id number] Madan Perry The patient requested an injection [...] alcohol and a dressing applied. Normal [facility] [employer] [facility] MR wrist LT wo conon 07-20- 023 MR wrist LT wo con [facility] [place] [address] MRI Report Signed Patient: Madan Perry MR#: [id number] : 1960 Acct:[id number] Age/Sex: 63 / F ADM Date: 07/20/23 [facility] Attending Dr: Aliza Aguilar Copies to: Aliza Aguilar Ordering Provider: Aliza Aguilar Date of Service: 07/20/23 MR/MR hand LT wo con: MEDIAN NERVE COMPRESSION ([id number]) MR/MR wrist LT wo con: MEDIAN NERVE COMPRESSION ([id number]) XR/XR pre/post mri xray: MEDIAN NERVE COMPRESSION [...] Jose Dial M.D.07/21/2023 7:38 PM Dictation Location: [facility]--14 Transcribed By: [facility] 07/21/231937 Dictated By: Jose Dial DO 07/20/23 1525 Signed By: 07/21/231937 Normal [facility] Telephone Encounteron 2022 Case Management Associate Authentication Interface Message Text Spoke with patient and scheduled. Normal [facility] [employer] [facility] Telephone Encounteron 2022 Case Management Associate Authentication Interface Message Text Pt called as [...] she would need something sooner. Contact pt [phone] Normal [facility] [employer] [facility] Addendum Noteon 06-16-2023 Case Management Associate Authentication Interface Message Text Addended by: ALIZA AGUILAR on: 06/16/2023 11:34 AM Modules accepted: Orders Normal [facility] [employer] [facility] Progress Noteson 06-16-2023 Case Management Associate Authentication Interface Message Text Patient Office Note [...] this patient. Aliza Aguilar MD Normal [facility] [employer] [facility] Case Management Associate Authentication Interface Message Text CC: Left hand [...] findings. Left hand MACRO: None [facility] Radiology Study observation (narrative) [facility] XR Hand - left 3 ViewsOrdere d By: Alberto Llanes on 06-16-2023 [employer] Work Phone: US DARNELL DOP LEG BILon [...] [place] Date: 2023-01-27 17:22 Normal [facility] CBC AUTO DIFFon 01-12-2023 BASO # 0.1 103/ul Normal 0.0-0.1 [facility] Comment on above: Performed By: #### C BC #### [facility] [address] [address] [address] Rocio Hernandez Basophils/100 WBC (Bld) 1.0 % Normal 0.2-2.0 [facility] Comment on above: Performed By: #### C BC #### [facility] [address] [place] [address] Dr. Rocio Hernandez EO # 0.2 103/ul Normal 0.0-0.7 [facility] Comment on above: Performed By: #### C BC #### [facility] [address] [place] [address] Dr. Rocio Hernandez Eosinophils/100 WBC (Bld) 2.9 % Normal 0.9-7.0 [facility] Comment on above: Performed By: #### C BC #### [facility] [address] [place] [address] Dr. Rocio Hernandez Erythrocyte distribution width (RBC) [Ratio] 14.1 % Normal 11.0-15.0 [facility] Comment on above: Performed By: #### C BC #### [facility] [address] [place] [address] Dr. Rocio Hernandez Hematocrit (Bld) [Volume fraction] 41.2 % Normal 36.0-48.0 [facility] Comment on above: Performed By: #### C BC #### [facility] [address] [place] [address] Dr. Rocio Hernandez Hemoglobin (Bld) [Mass/Vol] 13.6 g/dL Normal 12.0-16.0 [facility] Comment on above: Performed By: #### C BC #### [facility] [address] [place] [address] Dr. Rocio Hernandez IG # 0.01 10e3/ul Normal 0.00-0.03 [facility] Comment on above: Performed By: #### C BC #### [facility] [address] [place] [address] Dr. Rocio Hernandez IG % 0.2 % Normal 0.0-0.5 [facility] Comment on above: Performed By: #### C BC #### [facility] [address] [place] [address] Dr. Rocio Hernandez LYMPH # 1.3 103/ul Normal 1.2-3.8 [facility] Comment on above: Performed By: #### C BC #### [facility] [address] [place] [address] Dr. Rocio Hernandez Lymphocytes/100 WBC (Bld) 21.9 % Normal 20.5-60.0 [facility] Comment on above: Performed By: #### C BC #### [facility] [address] [place] [address] Dr. Rocio Hernandez MANUAL DIFF REQ NO Normal [facility] Comment on above: Performed By: #### C BC #### [facility] [address] [place] [address] Dr. Rocio Hernandez MCH (RBC) [Entitic mass] 28.4 pg Normal 26.7-34.0 [facility] Comment on above: Performed By: #### C BC #### [facility] [address] [place] [address] Dr. Rocio Hernandez MCHC (RBC) [Mass/Vol] 33.0 g/dL Normal 29.9-35.2 [facility] Comment on above: Performed By: #### C BC #### [facility] [address] [place] [address] Dr. Rocio Hernandez MCV (RBC) [Entitic vol] 86.0 fL Normal 81.0-99.0 [facility] Comment on above: Performed By: #### C BC #### [facility] [address] [place] [address] Dr. Rocio Hernandez MONO # 0.6 103/ul Normal 0.3-0.8 [facility] Comment on above: Performed By: #### C BC #### [facility] [address] [place] [address] Dr. Rocio Hernandez Monocytes/100 WBC (Bld) 10.3 % Normal 1.7-12.0 [facility] Comment on above: Performed By: #### C BC #### [facility] [address] [place] [address] Dr. Rocio Hernandez NEUT # 3.8 103/ul Normal 1.4-6.5 [facility] Comment on above: Performed By: #### C BC #### [facility] [address] [address] [address] Rocio Hernandez Neutrophils/100 WBC (Bld) 63.7 % Normal 43.0-75.0 [facility] Comment on above: Performed By: #### C BC #### [facility] [address] [address] [address] Rocio Hernandez Platelet mean volume (Bld) [Entitic vol] 9.0 fL Critically low 9.5-13.5 [facility] Comment on above: Performed By: #### C BC #### [facility] [address] [address] [address] Rocio Hernandez PLT 360 103/ul Normal 150-450 [facility] Comment on above: Performed By: #### C BC #### [facility] [address] [address] [address] Rocio Hernandez RBC 4.79 106/ul Normal 4.20-5.40 [facility] Comment on above: Performed By: #### C BC #### [facility] [address] [address] [address] Rocio Hernandez WBC 5.9 103/ul Normal 4.0-11.0 [facility] Comment on above: Performed By: #### C BC #### [facility] [address] [address] [address] Rocio Hernandez FREE T3on 01-12-2023 FREE T3 2.31 pg/mlL Normal 2.18-3.98 [facility] Comment on above: Performed By: #### T SH, CMP, LIPID, FT3 ####[facility] [address] [place], [place] [address]BiDr. Rocio Hernandez FREE T4on 01-12-2023 Free T4 [Mass/Vol] 1.21 ng/dL Normal 0.76-1.46 [facility] Comment on above: Performed By: #### B 12FOL, FT4 #### [facility] [address] [address] [address] Rocio Hernandez GLYCOHEMOGLOBIN A1Con 2022 ADA RECOMMENDATION SEE BELOW Normal [facility] Comment on above: Result Comment: ADA RECOMMENDED LIMIT 4.0 - 6.0 ADA THERAPEUTIC TARGET < 7.0 ACTION SUGGESTED > 7.0 Performed By: #### A 1C ####[facility] [address] [address]Dr[address] Rocio Hernandez Glucose [Mass/Vol] 123 mg/dL Normal [facility] Comment on above: Performed By: #### A 1C ####[facility] [address] [address]Dr[address] Rocio Hernandez HbA1c (Bld) [Mass fraction] 5.9 % Normal 4.5-6.2 [facility] Comment on above: Performed By: #### A 1C ####[facility] [address] [address]Dr[address] Rocio Hernandez LIPID PROFILEon 01-12-2023 CHOL-HDL RATIO NORM SEE BELOW Normal [facility] Comment on above: Result Comment: 3.3 - 4.4 LOW RISK 4.4 - 7.1 AVERAGE RISK 7.1 - 11.0 MODERATE RISK >11.0 HIGH RISK Performed By: #### T SH, CMP, LIPID, FT3 #### [facility] [address] [address] [address] Rocio Hernandez Cholesterol [Mass/Vol] 203 mg/dL Critically high <=200 [facility] Comment on above: Performed By: #### T SH, CMP, LIPID, FT3 #### [facility] [address] [address] [address] Rocio Hernandez Cholesterol in HDL [Mass/Vol] 89 mg/dL Critically high 40-60 [facility] Comment on above: Performed By: #### T SH, CMP, LIPID, FT3 #### [facility] [address] [address] [address] Rocio Hernandez Cholesterol in LDL [Mass/Vol] 87.8 mg/dL Normal [facility] Comment on above: Performed By: #### T SH, CMP, LIPID, FT3 #### [facility] [address] [address] [address] Rocio Hernandez Cholesterol.total/C holesterol in HDL [Mass ratio] 2.3 {ratio} Normal [facility] Comment on above: Performed By: #### T SH, CMP, LIPID, FT3 #### [facility] [address] [address] [address] Rocio Hernandez HDL NORMAL > or = 60 mg/dl - LO W CARDIOVASCULAR RISK <40 mg/dl - HIGH CARDIOVASCULAR RISK Normal [facility] Comment on above: Performed By: #### T SH, CMP, LIPID, FT3 #### [facility] [address] [address] [address] Rocio Hernandez LDL CALC NORMAL SEE BELOW Normal [facility] Comment on above: Result Comment: <100 mg/dl OPTIMAL 100 - 129 mg/dl NEAR OR ABOVE OPTIMAL 130 - 159 mg/dl BORDERLINE HIGH 160 - 189 mg/dl HIGH >190 mg/dl VERY HIGH Performed By: #### T SH, CMP, LIPID, FT3 #### [facility] [address] [address] [address] Rocio Hernandez Triglyceride [Mass/Vol] 131 mg/dL Normal <=150 [facility] Comment on above: Performed By: #### T SH, CMP, LIPID, FT3 #### [facility] [address] [address] [address] Rocio Hernandez VLDL CALC 26.2 mg/dL Normal [facility] Comment on above: Performed By: #### T SH, CMP, LIPID, FT3 #### [facility] [address] [address] [address] Rocio Hernandez MICROALB CREAT RATIO RANDOMo n 01-12-2023 mALB <1.3 Normal <=30.0 [facility] Comment on above: Performed By: #### M CRR ####[facility] [address] [address]Dr[address] Rocio Hernandez MALB CR RATIO 13.6 mg/g Normal 0.0-29.9 [facility] Comment on above: Performed By: #### M CRR ####[facility] [address] [id number] Rocio Hernandez MALB CR RATIO RANGE SEE BELOW Normal [facility] Comment on above: Result Comment: NO M ICROALBUMINURIA 0-29 MG/G CLINICAL MICROALBUMINURIA 30-300 MG/G MACROALBUMINURIA >300 MG/G Performed By: #### M CRR ####[facility] [address] [place], [place] [address]GhDr. Rocio Hernandez URINE CREAT 95.84 mg/dL Normal 20.00-300.00 [facility] Comment on above: Performed By: #### M CRR ####[facility] [address] [place], [place] [address]ZfDr. Rocio Hernandez PROF 14(COMP METB)on 023 Albumin [Mass/Vol] 3.8 g/dL Normal 3.4-5.0 [facility] Comment on above: Performed By: #### T SH, CMP, LIPID, FT3 #### [facility] [address] [address] [address] Rocio Hernandez Albumin/Globulin [Mass ratio] 0.9 {ratio} Normal [facility] Comment on above: Performed By: #### T SH, CMP, LIPID, FT3 #### [facility] [address] [address] [address] Rocio Hernandez ALP [Catalytic activity/Vol] 111 U/L Normal 46-116 [facility] Comment on above: Performed By: #### T SH, CMP, LIPID, FT3 #### [facility] [address] [address] [address] Rocio Hernandez ALT [Catalytic activity/Vol] 42 U/L Normal 14-59 [facility] Comment on above: Performed By: #### T SH, CMP, LIPID, FT3 #### [facility] [address] [address] [address] Rocio Hernandez Anion gap [Moles/Vol] 10.8 mmol/L Normal [facility] Comment on above: Performed By: #### T SH, CMP, LIPID, FT3 #### [facility] [address] [address] [address] Rocio Hernandez AST [Catalytic activity/Vol] 24 U/L Normal 15-37 [facility] Comment on above: Performed By: #### T SH, CMP, LIPID, FT3 #### [facility] [address] [address] [address] Rocio Hernandez Bilirubin [Mass/Vol] 0.4 mg/dL Normal 0.2-1.0 [facility] Comment on above: Performed By: #### T SH, CMP, LIPID, FT3 #### [facility] [address] [place] [address] Dr. Rocio Hernandez Calcium [Mass/Vol] 9.6 mg/dL Normal 8.5-10.1 [facility] Comment on above: Performed By: #### T SH, CMP, LIPID, FT3 #### [facility] [address] [place] [address] Dr. Rocio Hernandez Chloride [Moles/Vol] 93 mmol/L Critically low 98-107 [facility] Comment on above: Performed By: #### T SH, CMP, LIPID, FT3 #### [facility] [address] [place] [address] Dr. Rocio Hernandez CO2 [Moles/Vol] 31.2 mmol/L Normal 21.0-32.0 [facility] Comment on above: Performed By: #### T SH, CMP, LIPID, FT3 #### [facility] [address] [place] [address] Dr. Rocio Hernandez Creatinine [Mass/Vol] 1.02 mg/dL Normal 0.55-1.02 [facility] Comment on above: Performed By: #### T SH, CMP, LIPID, FT3 #### [facility] [address] [place] [address] Dr. Rocio Hernandez EGFR-AF ESTONIAN >60 Normal >=60 [facility] Comment on above: Performed By: #### T SH, CMP, LIPID, FT3 #### [facility] [address] [place] [address] Dr. Rocio Hernandez EGFR-NON AF ESTONIAN 55 mL/min/1.73m2 Critically low >=60 [facility] Comment on above: Performed By: #### T SH, CMP, LIPID, FT3 #### [facility] [address] [address] [address] Rocio Hernandez Globulin (S) [Mass/Vol] 4.4 g/dL Normal [facility] Comment on above: Performed By: #### T SH, CMP, LIPID, FT3 #### [facility] [address] [address] [address] Rocio Hernandez Glucose [Mass/Vol] 102 mg/dL Normal 74-106 [facility] Comment on above: Performed By: #### T SH, CMP, LIPID, FT3 #### [facility] [address] [place] [address] Dr. Rocio Hernandez Potassium [Moles/Vol] 4.0 mmol/L Normal 3.5-5.1 [facility] Comment on above: Performed By: #### T SH, CMP, LIPID, FT3 #### [facility] [address] [place] [address] Dr. Rocio Hernandez Protein [Mass/Vol] 8.2 g/dL Normal 6.4-8.2 [facility] Comment on above: Performed By: #### T SH, CMP, LIPID, FT3 #### [facility] [address] [place] [address] Dr. Rocio Hernandez Sodium [Moles/Vol] 131 mmol/L Critically low 136-145 [facility] Comment on above: Performed By: #### T SH, CMP, LIPID, FT3 #### [facility] [address] [address] [address] Rocio Hernandez Urea nitrogen [Mass/Vol] 6.0 mg/dL Critically low 7.0-18.0 [facility] Comment on above: Performed By: #### T SH, CMP, LIPID, FT3 #### [facility] [address] [place] [address] Dr. Rocio Hernandez Urea nitrogen/Creatinine [Mass ratio] 5.9 mg/mg Normal [facility] Comment on above: Performed By: #### T SH, CMP, LIPID, FT3 #### [facility] [address] [place] [address] Dr. Rcoio Hernandez TSHon 01-12-2023 TSH 5.647 uIU/mL Critically high 0.358-3.740 [facility] Comment on above: Performed By: #### T SH, CMP, LIPID, FT3 #### [facility] [address] [address] [address] Rocio Hernandez VIT B12 AND FOLATEon 023 Cobalamin (Vitamin B12) [Mass/Vol] 1189.0 pg/mL Critically high 193.0-986.0 [facility] Comment on above: Performed By: #### B 12FOL, FT4 #### [facility] [address] [address] [address] Rocio Hernandez FOLATE 27.30 ng/mL Normal 8.60-58.90 [facility] Comment on above: Performed By: #### B 12FOL, FT4 #### [facility] [address] [address] [address] Rocio Hernandez MG MAMM SCREEN 3D ATNIA CADon 12-19-2022 MG MAMM SCREEN 3D TANIA CAD Patient: MADAN PERRY Exam Date: 12/19/2022 : 1960 Gender:F Ordering : DR [place] D.O. Admission #: [id number] Family : Order #: [id number] CLICK HERE TO VIEW EXAM RADIOLOGY REPORT [...] ovarian cancer at age 54. LOCATION: [facility] BREAST COMPOSITION: Scattered areas fibroglandular [...] Flores M.D. on 12/19/2022 at 11:19 Normal [facility] XR DEXA BONE DENSITYon 12-19 XR [...] by: LIZ FLORES Date: 2022-12-19 10:01 Normal [facility] FREE T3on 03-22-2022 FREE T3 2.43 pg/mlL Normal 2.18-3.98 [facility] Comment on above: Performed By: #### B MP, FT3, TSH ####[facility] [address] [place], [place] [address]DsClem Hernandez FREE T4on 03-22-2022 Free T4 [Mass/Vol] 1.43 ng/dL Normal 0.76-1.46 [facility] Comment on above: Performed By: #### F T4 ####[facility] [address] [place], [place] [address]Zh. Rocio Hernandez PROF CHEM 8 (BAS METB)on Anion gap [Moles/Vol] 10.2 mmol/L Normal [facility] Comment on above: Performed By: #### B MP, FT3, TSH ####[facility] [address] [address]Dr. Rocio Hernandez Calcium [Mass/Vol] 8.8 mg/dL Normal 8.5-10.1 [facility] Comment on above: Performed By: #### B MP, FT3, TSH ####[facility] [address] [address]Dr. Rocio Hernandez Chloride [Moles/Vol] 104 mmol/L Normal 98-107 [facility] Comment on above: Performed By: #### B MP, FT3, TSH ####[facility] [address] [address]Dr. Rocio Hernandez CO2 [Moles/Vol] 31.7 mmol/L Normal 21.0-32.0 [facility] Comment on above: Performed By: #### B MP, FT3, TSH ####[facility] [address] [address]Dr. Rocio Hernandez Creatinine [Mass/Vol] 0.96 mg/dL Normal 0.55-1.02 [facility] Comment on above: Performed By: #### B MP, FT3, TSH ####[facility] [address] [address]Dr. Rocio Hernandez EGFR-AF ESTONIAN >60 Normal >=60 [facility] Comment on above: Performed By: #### B MP, FT3, TSH ####[facility] [address] [address]Dr. Rocio Hernandez EGFR-NON AF ESTONIAN 59 mL/min/1.73m2 Critically low >=60 [facility] Comment on above: Performed By: #### B MP, FT3, TSH ####[facility] [address] [address]Dr. Rocio Hernandez Glucose [Mass/Vol] 110 mg/dL Critically high 74-106 T [facility] Comment on above: Performed By: #### B MP, FT3, TSH ####[facility] [address] [address]Dr. Rocio Hernandez Potassium [Moles/Vol] 2.9 mmol/L Critically low 3.5-5.1 [facility] Comment on above: Result Comment: TEST REPEATED CRITICAL VALUE VERIFIED Performed By: #### B MP, FT3, TSH ####[facility] [address] [address]. Rocio Hernandez Sodium [Moles/Vol] 141 mmol/L Normal 136-145 [facility] Comment on above: Performed By: #### B MP, FT3, TSH ####[facility] [address] [address]Dr. Rocio Hernandez Urea nitrogen [Mass/Vol] 12.0 mg/dL Normal 7.0-18.0 [facility] Comment on above: Performed By: #### B MP, FT3, TSH ####[facility] [address] [address]Dr. Rocio Hernandez Urea nitrogen/Creatinine [Mass ratio] 12.5 mg/mg Normal [facility] Comment on above: Performed By: #### B MP, FT3, TSH ####[facility] [address] [address]Dr. Rocio Hernandez TSHon 03-22-2022 TSH 0.137 uIU/mL Critically low 0.358-3.740 [facility] Comment on above: Performed By: #### B MP, FT3, TSH ####[facility] [address] [address] Rocio Hernandez Patient Letter FTon 2020 Patient Letter FT (Inserted Image. Wilda ble to display) May 26, 2021 MADAN PERRY [address] [place] [address] MADAN PERRY 1960 Dear Madan, This is a SECOND ATTEMPT to remind you that you are due for an appointment with [facility]. Please contact our office at [phone] to schedule an appointment at your earliest convenience. Thank you, [facility] Normal [facility] Reminderson 05-26-2021 Reminders - From: Jane Onofre To: GINA - Reminders/Recalls; Sent: 01/18/2021 12:33:31 EDT Show up: 04/25/2021 12:33:00 EDT Subject: Ambulatory Reminder Due Date/Time: 06/09/2021 12:33:00 EDT Reminder/Recall sara peace 5 year colon 06/09/2021 first recall letter second rcall letter Normal [facility] Patient Letter FTon 2020 Patient Letter FT (Inserted Image. Wilda ble to display) May 05, 2021 MADAN PERRY [address] [place] [address] MADAN PERRY 1960 Dear Madan, This is a reminder that you are due for an appointment with [facility]. Please contact our office at [phone] to schedule an appointment at your earliest convenience. Thank you, [facility] Vital Signs Date Time Vital Sign Value Performing Clinician Facility 05-28-2024 13:19-0400 Body height 161.29 cm DO [facility] [employer] Work Phone: [facility] 05-28-2024 13:19-0400 Body mass index (BMI) [Ratio] 26.5 kg/m2 DO [place] Work Phone: [facility] 05-28-2024 13:19-040 Body weight 69.11 kg DO [place] Work Phone: [facility] 05-09-2022 16:35-0400 Body height 161.29 cm Adilia Mederos Other [employer] Other 05-09-2022 16:35-0400 Body mass index (BMI) [Ratio] 25.63 kg/m2 Adilia Mederos Other [employer] Other 05-09-2022 16:35-0400 Body temperature 97.8 [degF] Adilia Mederos Other [employer] Other 05-09-2022 16:35-0400 Body weight 66.68 kg Adilia Mederos Other [employer] Other 05-09-2022 16:35-0400 Diastolic blood pressure 79 mm[Hg] Adilia Mederos Other [employer] Other 05-09-2022 16:35-0400 Respiratory rate 18 /min Adilia Mederos Other [employer] Other 05-09-2022 16:35-0400 SaO2% (BldA) [Mass fraction] 98 % Adilia Mederos Other [employer] Other 05-09-2022 16:35-0400 Systolic blood pressure 136 mm[Hg] Adilia Mederos Other [employer] Other 07-21-2021 16:05-0400 Body height 161.29 cm Lilian Hanna Other [employer] Other 07-21-2021 16:05-0400 Body mass index (BMI) [Ratio] 26.5 kg/m2 Lilian Hanna Other [employer] Other 07-21-2021 16:05-0400 Body temperature 96.2 [degF] Lilian Ferreira Other [employer] Other 07-21-2021 16:05-0400 Body weight 68.95 kg Lilian Ferreira Other [employer] Other 07-21-2021 16:05-0400 Diastolic blood pressure 95 mm[Hg] Lilian Ferreira Other [employer] Other 07-21-2021 16:05-0400 Respiratory rate 18 /min Lilian Ferreira Other [employer] Other 07-21-2021 16:05-0400 SaO2% (BldA) [Mass fraction] 99 % Lilian Ferreira Other [employer] Other 07-21-2021 16:05-0400 Systolic blood pressure 132 mm[Hg] Lilian Ferreira Other [employer] Other 06-22-2021 14:20-0400 Body height 161.29 cm Adilia Mederos Other [employer] Other 06-22-2021 14:20-0400 Body mass index (BMI) [Ratio] 25.98 kg/m2 Adilia Cardenasault Other [employer] Other 06-22-2021 14:20-0400 Body temperature 96.4 [degF] Adilia Rosa M Other [employer] Other 06-22-2021 14:20-0400 Body weight 67.59 kg Adilia Cardenasault Other [employer] Other 06-22-2021 14:20-0400 Diastolic blood pressure Adilia Cardenasault Other [employer] Other 06-22-2021 14:20-0400 Respiratory rate 18 /min Adilia Mederos Other [employer] Other 06-22-2021 14:20-0400 SaO2% (BldA) [Mass fraction] 98 % Adilia Mederos Other [employer] Other 06-22-2021 14:20-0400 Systolic blood pressure 111 mm[Hg] Adilia Mederos Other [employer] Other Encounters Encounter Date Encounter Type Care Provider Facility Start: 06-11-2024 End: 06-11-2024 ambulatory IVY AGUILARMICHELLE Not Available Start: 05-28-2024 End: 05-28-2024 ambulatory DO [place] Work Phone: [facility] Work Phone: Start: 05-28-2024 End: 05-28-2024 Patient encounter procedure DO [place] Work Phone: [facility] Work Phone: Start: 05-20-2024 End: 05-20-2024 ambulatory Meet Harp MD Facility: [facility] Start: 05-13-2024 End: 05-13-2024 ambulatory Meet Harp MD Facility: [facility] Start: 03-14-2024 End: 03-14-2024 ambulatory [facility] Start: 02-28-2024 End: 02-28-2024 ambulatory DO [place] Work Phone: [facility] Work Phone: Start: 02-28-2024 End: 02-28-2024 Departed Referred DO [place] Work Phone: [facility] Start: 02-20-2024 End: 02-20-2024 ambulatory [facility] Start: 01-15-2024 End: 01-15-2024 ambulatory Meet [facility] MD [facility] Start: 12-04-2023 End: 12-04-2023 ambulatory Meet Harp MD [facility] Start: 11-06-2023 End: 11-06-2023 ambulatory Meet Harp MD [facility] Start: 10-09-2023 End: 10-09-2023 ambulatory Meet Harp MD Facility:[facility] Start: 08-25-2023 End: 08-25-2023 ambulatory ALIZA AGUILAR Facility:[facility] Start: 08-25-2023 End: 08-25-2023 Office outpatient visit 15 minutes Aliza Aguilar MD Work Phone: [address] [facility] Comment on above: Hand arthritis (Prim maurisio Dx) Start: 08-21-2023 End: 08-21-2023 ambulatory Meet Harp MD Facility:[facility] Start: 08-19-2023 Letter encounter Yesy Covarrubias OT Work Phone: [facility] Start: 07-31-2023 End: 07-31-2023 ambulatory Meet Harp MD Facility: [facility] Start: 07-24-2023 End: 07-24-2023 ambulatory Meet Harp MD [facility] Start: 07-20-2023 End: 07-20-2023 Patient encounter procedure DO [place] Work Phone: [facility] [address] Work Phone: Start: 07-20-2023 End: 07-20-2023 ambulatory DO [place] Work Phone: [facility] Work Phone: Start: 07-10-2023 End: 07-10-2023 ambulatory Meet Harp MD Facility:[facility] Start: 06-16-2023 End: 06-17-2023 ambulatory UNKNOWN PROVIDER Facility:[facility] Start: 06-16-2023 End: 06-16-2023 Office outpatient visit 25 minutes Aliza Aguilar MD Work Phone: [facility] [address] [facility] [facility] Comment on above: Left hand pain (Prim maurisio Dx) Start: 06-16-2023 End: 06-16-2023 Subsequent hospital visit by physician [facility] Op Op X-Ray 1 Work Phone: [facility] [address] [facility] Diag Radiology Comment on above: Left hand pain Start: 02-07-2023 End: 02-08-[address] [place] Facility:[facility] Start: 01-27-2023 End: 01-28-[address] [place] Facility:[facility] Start: 01-23-2023 End: 02-22-2023 ambulatory SHAIKH Eduardo ROSS Facility:[facility] Start: 01-16-2023 Encounter for genera l adult medical examination without abnormal findings DR [place] [facility] Start: 01-12-2023 End: 01-13-[address] [place]ANK [place]EK Facility:[facility] Start: 01-12-2023 End: 01-13-2023 Encounter for general adult medical examination without abnormal findings DR [place] Facility:[facility] Start: 12-26-2022 End: 01-20-2023 ambulatory SHAIKH Eduardo ROSS Facility:[facility] Start: 12-19-2022 End: 12-20-[address] [place] Facility:[facility] Start: 11-23-2022 End: 12-23-2022 ambulatory SHAIKH Eduardo ROSS Facility:[facility] Start: 10-26-2022 End: 11-23-2022 ambulatory DUARTE H CODY Facility:[facility] Start: 09-26-2022 End: 10-26-2022 ambulatory SHAIKH [...] 05-09-2022 End: 05-09-2022 ambulatory Adilia Mederos Other [employer] Other Start: 05-09-2022 Office outpatient vi sit [...] vaccination Tetanus (T d or Tdap) [facility] Start: 01-13-2028 Cholesterol [Mass/volume] in Serum or Plasma [facility]olesterol [facility] Start: 05-28-2024 Patient referral [facility] Work Phone: Start: 08-25-2023 End: 08-25-2023 Patient encounter procedure 08/25/2023 11:30 AM EST Office Visit [address] [facility] [facility] Orthopedics [address] [place] [address] Aliza Aguilar MD [address] [place] [address] [facility] Orthoped[facility] Start: 07-20-2023 XR pre/post mri xray XR pre/post mri xray [facility] Start: 07-20-2023 [facility] Start: 07-20-2023 MR Wrist - left WO contrast [facility] Start: 07-20-2023 MRI of left wrist MR wrist LT wo con [facility] Start: 07-20-2023 MR Hand - left WO contrast [facility] Start: 07-20-2023 MRI of left hand MR hand LT wo [facility] Start: 06-25-2023 Influenza vaccination Influ[facility] Start: 06-16-2023 End: 06-16-2024 MR Wrist - left WO contrast MR WRIST LEFT W/O Imaging Routine Left hand pain Expected: 06/16/2023, Expires: 06/16/2024 [facility]: Comment on above: Expected: 06/16/2023 , Expires: 06/16/2024 Start: 05-26-2023 COVID-19 Vaccine ( season) COVID-19 Vaccine ( season) [facility] Start: 05-26-2023 Influenza vaccination Influenza Vacc ine (#1) [facility] Start: 06-25-2022 Influenza vaccination Influenza Vacc ine (#1) [facility] Start: 06-08-2022 COVID-19 Vaccine (4 - Booster for Pfizer series) COVID-19 Vaccine (4 - Booster for Pfizer series) [facility] Start: 2019 RSV vaccine (optiona l 60+ years) RSV vaccine (optional 60+ years) [facility] Start: 09-25-2014 Annual wellness visit Annual W ellness Visit (G0438) [facility] Start: 2009 Measurement of occul t [...] malign ant neoplasm of breast Mammography [facility] Start: 02-11-1980 Screening for malign ant neoplasm of cervix Pap Smear [facility] Start: 1977 Hepatitis C screening Hepatitis C An tibody [facility] Start: 1974 HIV screening HIV Test [facility] Start: 1960 COVID-19 Vaccine ( formulation) COVID-19 Vaccine ( formulation) [facility] Start: 1960 Screening for malign ant neoplasm of colon Colonoscopy [facility] Patient referral [facility] Work Phone: Immunizations Immunization Date Immunization Notes [facility]-11-2023 influenza, injectabl e, quadrivalent, preservative free Aliza Aguilar MD Work Phone: [facility] 08-11-2023 Respiratory syncytia l virus (RSV), vaccine, bivalent, protein subunit RSV prefusion F, diluent reconstituted, 0.5 mL, preservative free (KBX=580) Aliza Aguilar MD Work Phone: [facility] 06-18-2022 influenza, injectabl e, quadrivalent, preservative free Aliza Aguilar MD Work Phone: [facility] 06-18-2022 influenza virus vacc ine, unspecified formulation Aliza Aguilar MD Work Phone: [facility] 02-05-2022 Pfizer Monovalent (1 2+ yrs) SARS-COV-2 (COVID-19) vaccine, mRNA, spike protein, LNP, pres. free, 30 mcg/0.3mL dose, betito-sucrose (PVB=551) Aliza Aguilar MD Work Phone: [facility] 08-11-2021 influenza, injectabl e, quadrivalent, preservative free Yesy Marci OT Work Phone: [facility] 08-11-2021 influenza virus vacc ine, unspecified formulation Yesy Marci OT Work Phone: [facility] 07-24-2020 zoster vaccine recombinant K sakshin Marci OT Work Phone: [facility] 07-11-2020 Influenza, injectabl e, Madin [place] Canine Kidney, preservative free, quadrivalent Yesy Marci OT Work Phone: [facility] 04-18-2020 zoster vaccine recombinant K dengryn Marci OT Work Phone: [facility] 08-28-2019 Influenza, injectabl e, Madin [place] Canine Kidney, preservative free, quadrivalent Yesy Marci OT Work Phone: [facility] 07-01-2019 influenza, high dose seasonal, preservative-free Yesy Marci OT Work Phone: [facility] 06-25-2019 pneumococcal polysac charide vaccine, 23 valent Yesy Marci OT Work Phone: [facility] 07-06-2018 influenza, injectabl e, quadrivalent, contains preservative Yesy Marci OT Work Phone: [facility] 06-04-2018 tetanus toxoid, redu karen diphtheria toxoid, and acellular pertussis vaccine, adsorbed Yesy Marci OT Work Phone: [facility] 08-19-2017 influenza, injectabl e, quadrivalent, preservative free Yesy Marci OT Work Phone: [facility] 08-09-2017 influenza, injectabl e, quadrivalent, contains preservative Yesy Marci OT Work Phone: [facility] 08-01-2016 influenza, injectabl e, quadrivalent, preservative free Yesy Marci OT Work Phone: [facility] 07-11-2015 influenza, injectabl e, madin zakia canine kidney, preservative free Yesy Marci OT Work Phone: [facility] 07-11-2015 pneumococcal conjuga te vaccine, 13 valent Yesy Marci OT Work Phone: [facility] 08-13-2009 novel influenza-H1N1 -09, preservative-free, injectable Yesy Marci OT Work Phone: [facility] 07-17-2009 influenza virus vacc ine, unspecified formulation Yesy Marci OT Work Phone: [facility] 08-15-2008 influenza virus vacc ine, unspecified formulation Yesy Marci OT Work Phone: [facility] Payers Date Payer Category Payer Self-pay [id number] 2018 Unknown [id number] 2013 Medicare [id number] 1960 [facility] [id number] 1960 Medicare [id number] [id number] 1959 Unknown [id number] 2.16.840.1.703274.3.579.2.593 1959 Unknown [id number] 2.16.840.1.698183.3.579.2.593 1959 Unknown [id number] 2.16.840.1.108942.3.579.2.593 1959 Unknown [id number] 2.16.840.1.133530.3.579.2.593 1959 Unknown [id number] 2.16.840.1.383925.3.579.2.593 1959 Unknown [id number] 2.16.840.1.763743.3.579.2.593 1959 Unknown [id number] 2.16.840.1.581945.3.579.2.593 1959 Unknown [id number] 2.16.840.1.587738.3.579.2.59 1959 Unknown [id number] 2.16.840.1.862256.3.579.2.59 1959 Unknown [id number] 2.16.840.1.881951.3.579.2.59 1959 Unknown [id number] 2.16.840.1.488003.3.579.2.59 1959 Unknown [id number] 2.16.840.1.707887.3.579.2.593 1959 Unknown [id number] 2.16.840.1.381166.3.579.2.59 1959 Unknown [id number] 2.16.840.1.169297.3.579.2.593 1959 Unknown [id number] 2.16.840.1.975816.3.579.2.59 1959 Unknown [id number] 2.16.840.1.700953.3.579.2.593 1959 Unknown [id number] 2.16.840.1.256370.3.579.2.59 1959 Unknown [id number] 2.16.840.1.565395.3.579.2.593 1959 Unknown [id number] 2.16.840.1.714031.3.579.2.593 1959 Unknown [id number] 2.16.840.1.730147.3.579.2.593 1959 Unknown [id number] 2.16.840.1.464990.3.579.2.732 1959 Unknown [id number] 2.16.840.1.008466.3.579.2.732 1959 Unknown [id number] 2.16.840.1.945681.3.579.2.732 1959 Unknown [id number] 2.16.840.1.315159.3.579.2.1286 1959 Unknown [id number] 2.16.840.1.764852.3.579.2.1286 1959 Unknown [id number] 2.16.840.1.871937.3.579.2.196 1959 Unknown [id number] 2.16.840.1.262965.3.579.2.196 1959 Unknown [id number] 2.16.840.1.986626.3.579.2.196 1959 Unknown [id number] 2.16.840.1.965433.3.579.2.196 1959 Unknown [id number] 2.16.840.1.023634.3.579.2.196 1959 Unknown [id number] 2.16.840.1.911515.3.579.2. 1959 Unknown [id number] 2.16.840.1.645904.3.579.2. 1959 Unknown [id number] 2.16.840.1.192426.3.579.2.196 1959 Unknown [id number] 2.16.840.1.747073.3.579.2.196 1959 Unknown [id number] 2.16.840.1.448270.3.579.2.196 1959 Unknown [id number] 2.16.840.1.829961.3.579.2.1259 Medicare Medicare Nonpatient [id number] [id number] Unknown [id number] 2.16.840.1.115423.3.579.2.531 Unknown [id number] 2.16.840.1.070799.3.579.2.531 Social History Date Type Detail Facility Unknown if ever smoked [facility] Other Sex Assigned At [facility] Other Start: 11-18-2018 End: 05-31-2019 Tobacco smoking status [facility] Ex-smoker [facility] tobacco use [facility] Start: 05-31-2019 Tobacco use and exposure Smokeless tobacco non-user [facility] Start: 04-07-2020 Alcohol intake Lifetime non-d han (finding) [facility] Start: 07-09-2019 History SDOH Alcohol Frequency 1 [facility] Start: 1960 Sex Assigned At Not on file [facility] Start: 1960 Sex Assigned At Female [facility] Medical Equipment Procedure Code Equipment Code Equipment Origin al Text Equipment Identifier Dates [facility] [id number] - [id number] Start: 07-22-2019 Clinical Notes 06-22-2021 to [...] pain Follow up after MRI done at [facility]. Patient Office Note or Post OP [...] of this patient. Aliza Aguilar MD Injection Procedure.[facility] 08/25/2023 [id number] Madan Perry The patient requested an injection [...] applied. documented in this encounter [facility] 06-16-2023 Note Addended by: ALIZA AGUILAR on: 06/16/2023 11:34 AM Modules accepted: Orders [facility] 06-16-2023 Miscellaneous Notes Addended by: ALIZA AGUILAR on: 06/16/2023 11:34 AM Modules accepted: Orders documented in this encounter [facility] 06-16-2023 History of Presen t illness [...] coumadin. documented in this encounter [facility] 05-09-2022 Evaluation note Encounter Date Diagnosis [...] Xray that was ordered outpatient by PCP [facility] Other 08-10-2022 NotePROCEDURE: XR FOOT RT MIN 3 VIEWS COMPARISON: None. HISTORY: Pain in right foot FINDINGS: BONES:No fracture, acute abnormality, or significant arthropathy. Mild enthesopathic spurring of the calcaneus at the Achilles insertion SOFT TISSUES:Negative. No visible soft tissue swelling. EFFUSION:None visible. OTHER: Negative. IMPRESSION: No acute abnormality Electronically authenticated by: MARTINEZ HARVEY Date: 2022-05-04 16:22[facility]10-27-2021 Evaluation note* Encounter Date Diagnosis Assessment Notes Treatment Notes Treatment Clinical Notes Jun, Swelling of left elbow (ICD-10 - M25.422) Jun, Other Patient refe rred to the ER due to swelling, ecchymosis, pain of her left elbow with no known injury. It is felt the patient needs blood work to evaluate [facility] Other 09-28-2021 Evaluation note* Encounter Date Diagnosis Assessment Notes Treatment Notes Treatment Clinical Notes May, Bee sting, undetermined intent, initial encounter (ICD-10 - T63.444A) May continue Xyzal and Benadryl as directed. [facility] Other Evaluation note* Diagnosis Left hand pain- Primary Pain in limb Left hand pain Pain in limb [facility] Left [facility] pain Pain in limb [facility]No [facility] Phone: Evaluation note* Diagnosis [...] second t roseann Hospitalization History see above [facility] Other Hospital Discharge instructionsAmbulatory Orders* Referral to Speech/PT/OT (PT/OT/SP) Location: None [facility] Work Phone: Summary Purpose Family History No [...] Diagnoses Left hand pain Aliza Aguilar MD [address] [place] [address] Referral ID Status Reason Start Date Expiration Date Visits Requested Visits Authorized [id number] Authorized Patient Preference 06/16/2023 06/16/2024 3 3 Comments Near home, [place], [place] Specialty Diagnoses / Procedures Referred By Randi cardona Referred To Contact Radiology Diagnoses Left hand pain Procedures MR WRIST LEFT W/O Aliza Aguilar MD [address] [place] [address] [facility] MRI [address] [place] [address] Referral ID Status Reason Start Date Expiration Date V isits Requested Visits Authorized [id number] Authorized 06/16/2023 06/15/2024 1 1 Specialty Diagnoses / Procedures Referred By Randi cardona Referred To Contact Radiology Diagnoses Left hand pain Procedures XR HAND LEFT 3 VIEWS [facility] [address] [place], [place] [id number] [facility] DIAGNOSTIC RADIOLOGY [address] [place] [address] Referral ID Status Reason Start Date Expiration Date Visits Re quested Visits Authorized [id number] Closed 06/16/2023 06/15/2024 1 1 Chief Complaint and Reason for Visit Chief Complaint median nerve karel krista Chief Complaint Unknown Chief Complaint Unknown DISC DEGENERATION-THORACIC AREA Additional Source Comments INFORMATION SOURCE (unrecogn ized section and content) DATE CREATED AUTHOR 05/27/2021 Paco Garcia [facility] DATE CREATED AUTHOR AUTHOR'S ORGANIZ ATION 03/03/2023 [facility] DATE CREATED AUTHOR AUTHOR'S ORGANIZ ATION 08/28/2023 [facility] DATE CREATED AUTHOR AUTHOR'S ORGANIZ ATION 12/23/2023 [facility] DATE CREATED AUTHOR AUTHOR'S ORGANIZ ATION 02/29/2024 [facility] DATE CREATED AUTHOR AUTHOR'S ORGANIZ ATION 03/16/2024 [facility] DATE CREATED AUTHOR AUTHOR'S ORGANIZ ATION 05/24/2024 [facility] DATE CREATED AUTHOR AUTHOR'S ORGANIZ ATION 06/13/[address] [facility] d[facility] Specialists EPIC REASON FOR VISIT (unrecogniz ed section and content) Reason Comments Hand/finger symptoms Specialty Diagnoses / Procedures Referred By Contcharisma t Referred To Contact Radiology Diagnoses Left hand pain Procedures XR HAND LEFT 3 VIEWS [facility] [address] [address] [facility] DIAGNOSTIC RADIOLOGY [address] [place] [address] [place] [phone] Referral ID Status Reason Start Date Expiration Date Visits Re quested Visits Authorized [id number] Closed 06/16/2023 06/15/2024 1 1 Reason Comments Hand/finger symptoms Care Teams (unrecognized sec tion and content) Capacity Planning Engineer Relationship Specialty Start Date End Date Yesy Covarrubias, OT [address] [place] [address] [place] [address] Occupational Therapist Occupational Therapy 06/30/20 Aliza Aguilar MD [address] [place] [phone] Physician Orthopaedic Hand Service 06/30/20 Capacity Planning Engineer Relationship Specialty Start Date End Date Yesy Covarrubias OT [address] [place] [address] [place] [address] Occupational Therapist Occupational Therapy 06/30/20 Aliza Aguilar MD [address] [place] [phone] Physician Orthopaedic Hand Service 06/30/20 Capacity Planning Engineer Relationship Specialty Start Date End Date Yesy Covarrubias, OT [address] [place] [address] Occupational Therapist Occupational Therapy 06/30/20 Aliza Aguilar MD [address] [place] [phone] Physician Orthopaedic Hand Service 06/30/20 Team Status: Active Member Role Status Dates [place] DO Primary Care Provider Active Team Status: Inactive Member Role Status Dates [place] DO Primary Care Provider Active Aliza Aguilar Attending Provider Active Capacity Planning Engineer Relationship Specialty Start Date End Date Yesy Covarrubias, OT [address] [address] Occupational Therapist Occupational Therapy 06/30/20 Aliza Aguilar MD [address] [place] [phone] Physician Orthopaedic Hand Service 06/30/20 Capacity Planning Engineer Relationship Specialty Start Date End Date Yesy Covarrubias, OT [address] [place] [address] Occupational Therapist Occupational Therapy 06/30/20 Aliza Aguilar MD [address] [place] [address] Physician Orthopaedic Hand Service 06/30/20 Team Status: [...] BE BASED ON THE PRIMARY CLINICAL RECORDS. [employer] [facility]. provides no warranty or guarantee of the accuracy or completeness of information in this document.
[2024-06-21 14:02] LABS: Sodium Urine Random 95 mmol/L (30-90)
[2024-06-21 14:50] LABS: Anion Gap 11.8; BUN Creatinine Ratio 7.9; Calcium 8.9 mg/dL (8.5-10.1); Carbon Dioxide 27.3 mmol/L (21.0-32.0); Chloride 92 mmol/L (98-107); Estimated GFR (African America >60 (>=60); Estimated GFR (Non-African Ame >60 (>=60); Glucose 78 mg/dL (74-106); Potassium 3.1 mmol/L (3.5-5.1); Sodium 128 mmol/L (136-145)
== END 2024-06-21 13:40 | disposition home or self-care (01) ==
LOC: LAB 13:40
PROVIDERS: PCP Family Medicine; Visit Provider Family Medicine
DX: E87.1 Hypo-osmolality and hyponatremia (principal); E87.8 Other disorders of electrolyte and fluid balance, not elsewhere classified
CPT/HCPCS: 36415; 80048; 84300

== ENCOUNTER 2024-06-25 02:34 | Outpatient (RCR) | payer BC, MEDICARE, SELFPAY | END 2024-07-25 23:14 | disposition home or self-care (01) | LOC: MM 02:34 | PROVIDERS: PCP Family Medicine; Visit Provider Internal Medicine | DX: Z51.81 Encounter for therapeutic drug level monitoring (principal); Z79.01 Long term (current) use of anticoagulants | CPT/HCPCS: 85610; G0463 ==

== ENCOUNTER 2024-07-15 07:32 | Outpatient (RCR) | payer BC, MEDICARE, SELFPAY ==
--- OUTSIDE RECORDS SUMMARY | 2024-07-02 14:31 | XMS_ITS | CCD ---
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 Name Role Phone Adilia Mederos Unavailable Lilian Ferreira Unavailable Yesy Covarrubias OT Unavailable Aliza Aguilar MD Unavailable [phone] [place], DR TANK Aguillon Primary Care Unavailable LAKE, DR TANK Aguillon Consulting Unavailable LAKE, DR TANK Aguillon Attending Unavailable LAKE, DR TANK Aguillon Admitting Unavailable LAKE, DR TANK Aguillon Primary Care Unavailable LAKE, DR TANK Aguillon Consulting Unavailable LAKE, DR TANK Aguillon Attending Unavailable LAKE, DR TANK Aguillon Admitting Unavailable ZIEBER, DR LZI Salvador Consulting Unavailable LAKE, DR TANK Aguillon [...] FAWWAD, DUARTE H Attending Unavailable LAKE, DR TNAK Aguillon Primary Care Unavailable FAWWAD, DUARTE H [...] MD. Unavailable LakeDO Tank Primary Care Provider [phone] Aliza Aguilar Attending Provider PROVIDER, UNKNOWN Admitting [...] Acetaminophen / oxyCODONE Drug Allergy stomach upset [employer] Other (3 sources) Adhesive Tape Propensity to adverse reactions rash [employer] Other (5 sources) Cephalexin; Translations: [CEPHALEXIN] Drug Allergy 12-22-19 [facility] (10 sources) Erythromycin; Translations: [ERYTHROMYCIN] Drug Allergy 12-22-19 06 Other [facility] (7 sources) Iodine; Translations: [iodine] Drug Allergy 01-31-20 13 rash [facility] Repository (6 sources) Latex; Translations: [LATEX] Propensity to adverse reactions 12-22-19 [facility] (6 sources) Penicillin G Benzathine; Translations: [penicillin G benzathine] Drug allergy 03-18-20 23 anaphylaxis [facility] (3 sources) Procaine Drug Allergy headaches [facility] [email or web address] Other (2 sources) Cephalexin; Translations: [Keflex] Drug Allergy 01-31-20 13 anaphylaxis [facility] (1 source) Novocain Drug allergy Unknown [place] [employer] Other (8 sources) Acetaminophen; Translations: [ACETAMINOPHEN] Drug [...] Propensity to adverse reactions 09-03-20 13 Rash [facility] (10 sources) Erythromycin Base; Translations: [ERYTHROMYCIN BASE] Propensity to adverse reactions to drug 01-24-20 Other [facility] (7 sources) Iodides; Translations: [IODIDES] Propensity to adverse reactions to drug 10-31-19 14 Hives [facility] (6 sources) Other (Review Comments!); Translations: [OTHER (REVIEW COMMENTS!)] Propensity to adverse reactions to drug 07-22-20 19 Agitation [facility] Work Phone: (1 source) Ciprofloxacin Drug Allergy [facility] (1 source) Iodine (And Iodine Containting Drugs) Drug allergy (disorder) 01-31-20 13 [facility] (1 source) Latex Drug allergy (disorder) 01-31-20 13 [facility] Rep[facility] (4 sources) Morphine; Translations: [MORPHINE] Drug Allergy 10-21-19 14 vomiting [facility] Rep[facility] (1 source) Penicillins Drug allergy (disorder) 01-31-20 13 [facility] (1 source) Sulfonamides (Antibiotic) Drug allergy (disorder) 01-31-20 13 [facility] (1 source) Darvocet-N 100 Drug allergy (disorder) 01-31-20 13 [facility] (1 source) E.E.S. Drug allergy (disorder) 01-31-20 13 [facility] (3 sources) Adhesive Tape; Translations: [adhesive tape] Allergy to substance 12-11-19 rash [facility] (3 sources) oxyCODONE; Translations: [oxycodone] Drug Allergy 12-11-19 stomach upset [facility] (3 sources) Procaine; Translations: [procaine] Drug Allergy 12-11-19 23 headaches [facility] (1 source) Cephalexin Drug Allergy 12-11-19 [facility] (1 source) Doxycycline Drug Allergy 12-11-19 [facility] (1 source) Latex Drug allergy (disorder) 12-11-19 [facility] (1 source) Morphine Drug Allergy 12-11-19 [facility] Repository (1 source) Adhesive agent; [...] 0 Active take 1 capsule by mo [facility] every four hours Legamkphjy-XTSK-Txrfjgau 50-325-40 MG 1 capsule as needed Orally [...] Active HYDROcodone-Acet aminophen 7.5-300 MG Orally Not-Taking [place] Active acyclovir 400 mg oral tablet (9 [...] daily. 0 Active Flovent Diskus A ctive Mzmgvzqxyby-Ugpwvgpnj-Hbbrdp er (1 source) Anticholinergic, Corticosteroid, beta2-Adrenergic Agonist Start: 05-28-2024 Amswduoojie-Cuknspsov-Rtjcgk er (Trelegy Ellipta) 100-62.5-25 mcg blister with [...] by mouth daily. Followed in coumadin clinic [place], [place] 0 Active take 1 tablet by [...] 4 mg/0.1 mL nasal liquid Instill 1 [place] into one nostril (alternate sides) as needed. 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; Translations: [FPC CURRNT USE ANTICOAGULANTS] Onset: 02-22-2023 Episodic Other [...] Test Name Value Interpretation Reference Range Facility [facility] 02-28-2024 L Specimen: [id number] Received: 02/28/24 Status: DUDLEY Powell Num: [id number] Spec Type: Surgical Subm Dr: Aliza Spencer DO Tissues: A Stomach - Biopsy/Polyp (ANTRUM BX) B Stomach - Biopsy/Polyp (BX FUNDAL GLAND POLYP) C Esophagus Biopsy (DISTAL ESOPH BX) D Esophagus Biopsy (UPPER ESOPH BX) Procedures: HE/8, Gross/Micro L4/4 Age/ Patient Sex Location Account Attending Physician DionnaMadan Stanley 64/F LABELL [id number] Aliza Spencer DO SPEC NUM: [id number] RECD: 02/28/24 STATUS: DUDLEY POWELL NUM: [id number] SUNSHINE: 02/28/[address]: Aliza Spencer DO [...] tissue fragment, entirely submitted in B1. Specimen: [id number] Received: 02/28/24 Status: DUDLEY Pwoell Num: [id number] Spec Type: Surgical Subm Dr: Aliza Spencer DO Tissues: A Stomach - Biopsy/Polyp (ANTRUM BX) B Stomach - Biopsy/Polyp (BX FUNDAL GLAND POLYP) C Esophagus Biopsy (DISTAL ESOPH BX) D Esophagus Biopsy (UPPER ESOPH BX) Procedures: Ratna, Gross/Micro L4/4 Patient: Madan Perry [id number] (Continued) Specimen: [id number] Received: 02/28/24 (Continued) Gross Description (Continued) Signed (signature on file) Steven Ruvalcaba MD 02/29/24 1501 Specimen: [id number] Received: 02/28/24 Status: DUDLEY Powell Num: [id number] Spec Type: Surgical Subm Dr: Aliza Spencer DO Tissues: A Stomach - Biopsy/Polyp (ANTRUM BX) B Stomach - Biopsy/Polyp (BX FUNDAL GLAND POLYP) C Esophagus Biopsy (DISTAL ESOPH BX) D Esophagus Biopsy (UPPER ESOPH BX) Procedures: WILEY/Ratna, Gross/Micro L4/4 Patient: Madan Perry [id number] (Continued) Specimen: [id number] Received: 02/28/24-1256 (Continued) Gross Description (Continued) C. Further labeled distal esophagus BX are 2 jiménez mucosal tissue fragments measuring 0.3 x 0.2 x 0.1 cm and 0.2 x 0.2 x 0.1 cm, entirely submitted in C1. D. Further labeled upper esophagus BX are 2 jiménez mucosal tissue fragments each measuring 0.2 x 0.1 x 0.1 cm, entirely submitted in D1. [facility] Codes [id number] Specimen: [id number] Received: 02/28/24-1256 Status: DUDLEY Powell Num: [id number] Spec Type: Surgical Subm Dr: Aliza Spencer,DO Tissues: A Stomach - Biopsy/Polyp (ANTRUM BX) B Stomach - Biopsy/Polyp (BX FUNDAL GLAND POLYP) C Esophagus Biopsy (DISTAL ESOPH BX) D Esophagus Biopsy (UPPER ESOPH BX) Procedures: /8, Gross/Micro L4/4 Patient: Madan Perry [id number] (Continued) Signed (signature on file) Steven Ruvalcaba MD 02/29/24 1501 Normal [facility] URINE CULTUREon 12-23-2023 Bacteria identified Cx Nom (U) FINAL Normal (. - .) [facility] Comment on above: Order Comment: MS CC FACILITY: [facility] [id number] Result Comment: HUA Belle CATCH MID-STREAM URINE > 10,000 BUT < 100,000 CFU/ML RESEMBLES A CONTAMINATED URINE COLLECTION Performed By: #### C -UR #### [facility] [address] [facility], [address] BASIC MET PANEL W/GFRon 12-0 7-2022 Calcium [Mass/Vol] 9.2 mg/dL Normal (8.6 - 10.6) [facility] Comment on above: Order Comment: FACIL ITY: [facility] [id number] Performed By: #### C HEM-B #### [facility] [address] [facility], [address] Chloride [Moles/Vol] 99 mmol/L Normal (98 - 107) [facility] Comment on above: Order Comment: FACIL ITY: [facility] [id number] Performed By: #### C HEM-B #### [facility] [address] [facility], [address] CO2 [Moles/Vol] 27 mmol/L Normal (22 - 30) [facility] Comment on above: Order Comment: FACIL ITY: [facility] [id number] Performed By: #### C HEM-B #### [facility] [address] [facility], [address] Creatinine [Mass/Vol] 0.74 mg/dL Normal (0.52 - 1.04) [facility] Comment on above: Order Comment: FACIL ITY: [facility] [id number] Performed By: #### C HEM-B #### [facility] [address] [facility], [address] GFR- AMER 95.6 ML/M1.7 Normal (60.0 - 140.1) [facility] Comment on above: Order Comment: FACIL ITY: [facility] [id number] Performed By: #### C HEM-B #### [facility] [address] [facility], [address] GFR-NON AFRIC-AMER 79.0 ML/M1.7 Normal (60.0 - 115.8) [facility] Comment on above: Order Comment: FACIL ITY: [facility] [id number] Performed By: #### C HEM-B #### [facility] [address] [place], [address] Glucose [Mass/Vol] 100 mg/dL Normal (74 - 106) [facility] Comment on above: Order Comment: FACIL ITY: [facility] [id number] Performed By: #### C HEM-B #### [facility] [address] [place], [address] Potassium [Moles/Vol] 4.6 mmol/L Normal (3.5 - 5.1) [facility] Comment on above: Order Comment: FACIL ITY: [facility] [id number] Performed By: #### C HEM-B #### [facility] [address] [place], [address] Sodium [Moles/Vol] 136 mmol/L Low (137 - 145) [facility] Comment on above: Order Comment: FACIL ITY: [facility] [id number] Performed By: #### C HEM-B #### [facility] [address] [place], [address] Urea nitrogen [Mass/Vol] 11 mg/dL Normal (7 - 17) [facility] Comment on above: Order Comment: FACIL ITY: [facility] [id number] Performed By: #### C HEM-B #### [facility] [address] [place], [address] Progress Noteson 08-25-2023 Insert Operator Authentication Interface Message Text CC: Left hand and wrist pain Follow up after MRI done at [facility]. Normal [facility] Insert Operator Authentication Interface Message Text Patient Office Note or Post OP Note Name:Madan Perry Date: 08/25/2023 CC: left wrist pain at [facility] area No chief complaint on file. EXAM: [...] of this patient. Aliza Aguilar MD Injection Procedure.[facility] 08/25/2023 [id number] Madan Perry The patient requested an injection [...] alcohol and a dressing applied. Normal [facility] MR wrist LT wo conon 07-20- 023 MR wrist LT wo con [facility] [place] [address] MRI Report Signed Patient: Madan Perry MR#: [id number] : 1960 Acct:[id number] Age/Sex: 63 / F ADM Date: 07/20/23 [facility]: Type[facility] Attending Dr: Aliza Aguilar Copies to: Aliza Aguilar Ordering Provider: Aliza Aguilar Date of Service: 07/20/23 MR/MR hand LT wo con: MEDIAN NERVE COMPRESSION ([id number]) MR/MR wrist LT wo con: MEDIAN NERVE COMPRESSION ([id number]) XR/XR pre/post mri xray: MEDIAN NERVE COMPRESSION [...] Jose Dial M.D.07/21/2023 7:38 PM Dictation Location: [facility]--14 Transcribed By: [facility] 07/21/231937 Dictated By: Jose Dial DO 07/20/23 1525 Signed By: 07/21/231937 Normal [facility] Telephone Encounteron 2022 Insert Operator Authentication Interface Message Text Spoke with patient and scheduled. Normal [facility] Telephone Encounteron 2022 Insert Operator Authentication Interface Message Text Pt called [...] she would need something sooner. Contact pt [phone] Normal [facility] Addendum Noteon 06-16-2023 Insert Operator Authentication Interface Message Text Addended by: ALIZA AGUILAR on: 06/16/2023 11:34 AM Modules accepted: Orders Normal [facility] Progress Noteson 06-16-2023 Insert Operator Authentication Interface Message Text Patient Office [...] this patient. Aliza Aguilar MD Normal [facility] Insert Operator Authentication Interface Message Text CC: Left [...] with the findings. Left hand MACRO: None [facility] Radiology Study observation (narrative) [facility] XR Hand - left 3 ViewsOrdere d By: Alberto Llanes on 06-16-2023 [facility] Work Phone: US DARNELL DOP LEG BILon [...] [place] Date: 2023-01-27 17:22 Normal [facility] CBC AUTO DIFFon 01-12-2023 BASO # 0.1 103/ul Normal 0.0-0.1 [facility] Comment on above: Performed By: #### C BC #### [facility] [address] [address] [address] Rocio Hernandez Basophils/100 WBC (Bld) 1.0 % Normal 0.2-2.0 [facility] [place] [facility] Comment on above: Performed By: #### C BC #### [facility] [address] [place] [address] Dr. Rocio Hernandez EO # 0.2 103/ul Normal 0.0-0.7 [facility] [place] [facility] Comment on above: Performed By: #### C BC #### [facility] [address] [place] [address] Dr. Rocio Hernandez Eosinophils/100 WBC (Bld) 2.9 % Normal 0.9-7.0 [facility] [place] [facility] Comment on above: Performed By: #### C BC #### [facility] [address] [place] [address] Dr. Rocio Hernandez Erythrocyte distribution width (RBC) [Ratio] 14.1 % Normal 11.0-15.0 [facility] [place] [facility] Comment on above: Performed By: #### C BC #### [facility] [address] [place] [address] Dr. Rocio Hernandez Hematocrit (Bld) [Volume fraction] 41.2 % Normal 36.0-48.0 [facility] [place] [facility] Comment on above: Performed By: #### C BC #### [facility] [address] [place] [address] Dr. Rocio Hernandez Hemoglobin (Bld) [Mass/Vol] 13.6 g/dL Normal 12.0-16.0 [facility] [place] [facility] Comment on above: Performed By: #### C BC #### [facility] [address] [place] [address] Dr. Rocio Hernandez IG # 0.01 10e3/ul Normal 0.00-0.03 [facility] [place] [facility] Comment on above: Performed By: #### C BC #### [facility] [address] [place] [address] Dr. Rocio Hernandez IG % 0.2 % Normal 0.0-0.5 [facility] Comment on above: Performed By: #### C BC #### [facility] [address] [place] [address] Dr. Rocio Hernandez LYMPH # 1.3 103/ul Normal 1.2-3.8 [facility] Comment on above: Performed By: #### C BC #### [facility] [address] [place] [address] Dr. Rocio Hernandez Lymphocytes/100 WBC (Bld) 21.9 % Normal 20.5-60.0 [facility] [place] [facility] Comment on above: Performed By: #### C BC #### [facility] [address] [place] [address] Dr. Rocio Hernandez MANUAL DIFF REQ NO Normal [facility] Comment on above: Performed By: #### C BC #### [facility] [address] [place] [address] Dr. Rocio Hernandez MCH (RBC) [Entitic mass] 28.4 pg Normal 26.7-34.0 [facility] [place] [facility] Comment on above: Performed By: #### C BC #### [facility] [address] [place] [address] Dr. Rocio Hernandez MCHC (RBC) [Mass/Vol] 33.0 g/dL Normal 29.9-35.2 [facility] [place] [facility] Comment on above: Performed By: #### C BC #### [facility] [address] [place] [address] Dr. Rocio Hernandez MCV (RBC) [Entitic vol] 86.0 fL Normal 81.0-99.0 [facility] [place] [facility] Comment on above: Performed By: #### C BC #### [facility] [address] [place] [address] Dr. Rocio Hernandez MONO # 0.6 103/ul Normal 0.3-0.8 [facility] [place] [facility] Comment on above: Performed By: #### C BC #### [facility] [address] [place] [address] Dr. Rocio Hernandez Monocytes/100 WBC (Bld) 10.3 % Normal 1.7-12.0 [facility] Comment on above: Performed By: #### C BC #### [facility] [address] [place] [address] Dr. Rocio Hernandez NEUT # 3.8 103/ul Normal 1.4-6.5 [facility] Comment on above: Performed By: #### C BC #### [facility] [address] [address] [address] Rocio Hernandez Neutrophils/100 WBC (Bld) 63.7 % Normal 43.0-75.0 [facility] [place] [facility] Comment on above: Performed By: #### C BC #### [facility] [address] [address] [address] Rocio Hernandez Platelet mean volume (Bld) [Entitic vol] 9.0 fL Critically low 9.5-13.5 [facility] [place] [facility] Comment on above: Performed By: #### C BC #### [facility] [address] [address] [address] Rocio Hernandez PLT 360 103/ul Normal 150-450 [facility] [place] [facility] Comment on above: Performed By: #### C BC #### [facility] [address] [address] [address] Rocio Hernandez RBC 4.79 106/ul Normal 4.20-5.40 [facility] [place] [facility] Comment on above: Performed By: #### C BC #### [facility] [address] [address] [address] Rocio Hernandez WBC 5.9 103/ul Normal 4.0-11.0 [facility] [place] [facility] Comment on above: Performed By: #### C BC #### [facility] [address] [address] [address] Rocio Hernandez FREE T3on 01-12-2023 FREE T3 2.31 pg/mlL Normal 2.18-3.98 [facility] [place] [facility] Comment on above: Performed By: #### T SH, CMP, LIPID, FT3 ####[facility] [address] [place], [place] [address]NnDr. Rocio Hernandez FREE T4on 01-12-2023 Free T4 [Mass/Vol] 1.21 ng/dL Normal 0.76-1.46 The [facility] Comment on above: Performed By: #### B 12FOL, FT4 #### [facility] [address] [address] [address] Rocio Hernandez GLYCOHEMOGLOBIN A1Con 2022 ADA RECOMMENDATION SEE BELOW Normal The [facility] Comment on above: Result Comment: ADA RECOMMENDED LIMIT 4.0 - 6.0 ADA THERAPEUTIC TARGET < 7.0 ACTION SUGGESTED > 7.0 Performed By: #### A 1C ####[facility] [address] [address]Dr. Rocio Hernandez Glucose [Mass/Vol] 123 mg/dL Normal [facility] Comment on above: Performed By: #### A 1C ####[facility] [address] [address]Dr. Rocio Hernandez HbA1c (Bld) [Mass fraction] 5.9 % Normal 4.5-6.2 [facility] [place] [facility] Comment on above: Performed By: #### A 1C ####[facility] [address] [address]Dr. Rocio Hernandez LIPID PROFILEon 01-12-2023 CHOL-HDL RATIO NORM SEE BELOW Normal [facility] Comment on above: Result Comment: 3.3 - 4.4 LOW RISK 4.4 - 7.1 AVERAGE RISK 7.1 - 11.0 MODERATE RISK >11.0 HIGH RISK Performed By: #### T SH, CMP, LIPID, FT3 #### [facility] [address] [address] [address] Rocio Hernandez Cholesterol [Mass/Vol] 203 mg/dL Critically high <=200 [facility] [place] [facility] Comment on above: Performed By: #### T SH, CMP, LIPID, FT3 #### [facility] [address] [address] [address] Rocio Hernandez Cholesterol in HDL [Mass/Vol] 89 mg/dL Critically high 40-60 [facility] [place] [facility] Comment on above: Performed By: #### T SH, CMP, LIPID, FT3 #### [facility] [address] [address] [address] Rocio Hernandez Cholesterol in LDL [Mass/Vol] 87.8 mg/dL Normal [facility] [place] [facility] Comment on above: Performed By: #### T SH, CMP, LIPID, FT3 #### [facility] [address] [address] [address] Rocio Hernandez Cholesterol.total/C holesterol in HDL [Mass ratio] 2.3 {ratio} Normal [facility] [place] [facility] Comment on above: Performed By: #### T SH, CMP, LIPID, FT3 #### [facility] [address] [address] [address] Rocio Hernandez HDL NORMAL > or = 60 mg/dl - LO W CARDIOVASCULAR RISK <40 mg/dl - HIGH CARDIOVASCULAR RISK Normal [facility] [place] [facility] Comment on above: Performed By: #### T SH, CMP, LIPID, FT3 #### [facility] [address] [address] [address] Rocio Hernandez LDL CALC NORMAL SEE BELOW Normal [facility] Comment on above: Result Comment: <100 mg/dl OPTIMAL 100 - 129 mg/dl NEAR OR ABOVE OPTIMAL 130 - 159 mg/dl BORDERLINE HIGH 160 - 189 mg/dl HIGH >190 mg/dl VERY HIGH Performed By: #### T SH, CMP, LIPID, FT3 #### [facility] [address] [address] [address] Rocio Hernandez Triglyceride [Mass/Vol] 131 mg/dL Normal <=150 [facility] [place] [facility] Comment on above: Performed By: #### T SH, CMP, LIPID, FT3 #### [facility] [address] [address] [address] Rocio Hernandez VLDL CALC 26.2 mg/dL Normal [facility] Comment on above: Performed By: #### T SH, CMP, LIPID, FT3 #### [facility] [address] [address] [address] Rocio Hernandez MICROALB CREAT RATIO RANDOMo n 01-12-2023 mALB <1.3 Normal <=30.0 [facility] [place] [facility] Comment on above: Performed By: #### M CRR ####[facility] [address] [address]Dr. Rocio Hernandez MALB CR RATIO 13.6 mg/g Normal 0.0-29.9 [facility] Comment on above: Performed By: #### M CRR ####[facility] [address] [id number][address] Rocio Hernandez MALB CR RATIO RANGE SEE BELOW Normal [facility] Comment on above: Result Comment: NO M ICROALBUMINURIA 0-29 MG/G CLINICAL MICROALBUMINURIA 30-300 MG/G MACROALBUMINURIA >300 MG/G Performed By: #### M CRR ####[facility] [address] [place], [place] [address]XtDr. Rocio Hernandez URINE CREAT 95.84 mg/dL Normal 20.00-300.00 [facility] [place] [facility] Comment on above: Performed By: #### M CRR ####[facility] [address] [place], [place] [address]Dr. Rocio Hernandez PROF 14(COMP METB)on 023 Albumin [Mass/Vol] 3.8 g/dL Normal 3.4-5.0 [facility] Comment on above: Performed By: #### T SH, CMP, LIPID, FT3 #### [facility] [address] [address] [address] Rocio Hernandez Albumin/Globulin [Mass ratio] 0.9 {ratio} Normal [facility] [place] [facility] Comment on above: Performed By: #### T SH, CMP, LIPID, FT3 #### [facility] [address] [address] [address] Rocio Hernandez ALP [Catalytic activity/Vol] 111 U/L Normal 46-116 [facility] [place] [facility] Comment on above: Performed By: #### T SH, CMP, LIPID, FT3 #### [facility] [address] [address] [address] Rocio Hernandez ALT [Catalytic activity/Vol] 42 U/L Normal 14-59 [facility] [place] [facility] Comment on above: Performed By: #### T SH, CMP, LIPID, FT3 #### [facility] [address] [address] [address] Rocio Hernandez Anion gap [Moles/Vol] 10.8 mmol/L Normal [facility] [place] [facility] Comment on above: Performed By: #### T SH, CMP, LIPID, FT3 #### [facility] [address] [address] [address] Rocio Hernandez AST [Catalytic activity/Vol] 24 U/L Normal 15-37 [facility] [place] [facility] Comment on above: Performed By: #### T SH, CMP, LIPID, FT3 #### [facility] [address] [address] [address] Rocio Hernandez Bilirubin [Mass/Vol] 0.4 mg/dL Normal 0.2-1.0 [facility] [place] [facility] Comment on above: Performed By: #### T SH, CMP, LIPID, FT3 #### [facility] [address] [place] [address] Dr. Rocio Hernandez Calcium [Mass/Vol] 9.6 mg/dL Normal 8.5-10.1 [facility] Comment on above: Performed By: #### T SH, CMP, LIPID, FT3 #### [facility] [address] [place] [address] Dr. Rocio Hernandez Chloride [Moles/Vol] 93 mmol/L Critically low 98-107 [facility] [place] [facility] Comment on above: Performed By: #### T SH, CMP, LIPID, FT3 #### [facility] [address] [place] [address] Dr. Rocio Hernandez CO2 [Moles/Vol] 31.2 mmol/L Normal 21.0-32.0 [facility] Comment on above: Performed By: #### T SH, CMP, LIPID, FT3 #### [facility] [address] [place] [address] Dr. Rocio Hernandez Creatinine [Mass/Vol] 1.02 mg/dL Normal 0.55-1.02 [facility] Comment on above: Performed By: #### T SH, CMP, LIPID, FT3 #### [facility] [address] [place] [address] Dr. Rocio Hernandez EGFR-AF SRI LANKAN >60 Normal >=60 [facility] Comment on above: Performed By: #### T SH, CMP, LIPID, FT3 #### [facility] [address] [place] [address] Dr. Rocio Hernandez EGFR-NON AF SRI LANKAN 55 mL/min/1.73m2 Critically low >=60 [facility] Comment on above: Performed By: #### T SH, CMP, LIPID, FT3 #### [facility] [address] [address] [address] Rocio Hernandez Globulin (S) [Mass/Vol] 4.4 g/dL Normal [facility] [place] [facility] Comment on above: Performed By: #### T SH, CMP, LIPID, FT3 #### [facility] [address] [address] [address] Rocio Hernandez Glucose [Mass/Vol] 102 mg/dL Normal 74-106 [facility] Comment on above: Performed By: #### T SH, CMP, LIPID, FT3 #### [facility] [address] [place] [address] Dr. Rocio Hernandez Potassium [Moles/Vol] 4.0 mmol/L Normal 3.5-5.1 [facility] [place] [facility] Comment on above: Performed By: #### T SH, CMP, LIPID, FT3 #### [facility] [address] [place] [address] Dr. Rocio Hernandez Protein [Mass/Vol] 8.2 g/dL Normal 6.4-8.2 [facility] Comment on above: Performed By: #### T SH, CMP, LIPID, FT3 #### [facility] [address] [place] [address] Dr. Rocio Hernandez Sodium [Moles/Vol] 131 mmol/L Critically low 136-145 [facility] Comment on above: Performed By: #### T SH, CMP, LIPID, FT3 #### [facility] [address] [address] [address] Rocio Hernandez Urea nitrogen [Mass/Vol] 6.0 mg/dL Critically low 7.0-18.0 [facility] [place] [facility] Comment on above: Performed By: #### T SH, CMP, LIPID, FT3 #### [facility] [address] [place] [address] Dr. Rocio Hernandez Urea nitrogen/Creatinine [Mass ratio] 5.9 mg/mg Normal [facility] [place] [facility] Comment on above: Performed By: #### T SH, CMP, LIPID, FT3 #### [facility] [address] [place] [address] Dr. Rocio Hernandez TSHon 01-12-2023 TSH 5.647 uIU/mL Critically high 0.358-3.740 [facility] Comment on above: Performed By: #### T SH, CMP, LIPID, FT3 #### [facility] [address] [address] [address] Rocio Hernandez VIT B12 AND FOLATEon 023 Cobalamin (Vitamin B12) [Mass/Vol] 1189.0 pg/mL Critically high 193.0-986.0 [facility] [place] [facility] Comment on above: Performed By: #### B 12FOL, FT4 #### [facility] [address] [address] [address] Rocio Hernandez FOLATE 27.30 ng/mL Normal 8.60-58.90 [facility] [place] [facility] Comment on above: Performed By: #### B 12FOL, FT4 #### [facility] [address] [address] [address] Rocio Hernandez MG MAMM SCREEN 3D TANIA CADon 12-19-2022 MG MAMM SCREEN 3D TANIA CAD Patient: MADAN PERRY Exam Date: 12/19/2022 : 1960 Gender:F Ordering : DR [place] D.O. Admission #: [id number] Family : Order #: [id number] CLICK HERE TO VIEW EXAM RADIOLOGY REPORT [...] ovarian cancer at age 54. LOCATION: [facility] BREAST COMPOSITION: Scattered areas fibroglandular density. FINDINGS: [...] Flores M.D. on 12/19/2022 at 11:19 Normal [facility] [place] [facility] XR DEXA BONE DENSITYon 12-19 XR DEXA [...] FLORES Date: 2022-12-19 10:01 Normal [facility] [place] [facility] FREE T3on 03-22-2022 FREE T3 2.43 pg/mlL Normal 2.18-3.98 [facility] [place] [facility] Comment on above: Performed By: #### B MP, FT3, TSH ####[facility] [address] [place], [place] [address]TwClem Hernandez FREE T4on 03-22-2022 Free T4 [Mass/Vol] 1.43 ng/dL Normal 0.76-1.46 [facility] Comment on above: Performed By: #### F T4 ####[facility] [address] [place], [place] [address]Dr. Rocio Hernandez PROF CHEM 8 (BAS METB)on Anion gap [Moles/Vol] 10.2 mmol/L Normal [facility] [place] [facility] Comment on above: Performed By: #### B MP, FT3, TSH ####[facility] [address] [address]Dr. Rocio Hernandez Calcium [Mass/Vol] 8.8 mg/dL Normal 8.5-10.1 [facility] Comment on above: Performed By: #### B MP, FT3, TSH ####[facility] [address] [address]Dr. Rocio Hernandez Chloride [Moles/Vol] 104 mmol/L Normal 98-107 [facility] [place] [facility] Comment on above: Performed By: #### B MP, FT3, TSH ####[facility] [address] [address]Dr. Rocio Hernandez CO2 [Moles/Vol] 31.7 mmol/L Normal 21.0-32.0 [facility] Comment on above: Performed By: #### B MP, FT3, TSH ####[facility] [address] [address]Dr. Rocio Hernandez Creatinine [Mass/Vol] 0.96 mg/dL Normal 0.55-1.02 [facility] [place] [facility] Comment on above: Performed By: #### B MP, FT3, TSH ####[facility] [address] [address]Dr. Rocio Hernandez EGFR-AF SRI LANKAN >60 Normal >=60 [facility] Comment on above: Performed By: #### B MP, FT3, TSH ####[facility] [address] [address]Dr. Rocio Hernandez EGFR-NON AF SRI LANKAN 59 mL/min/1.73m2 Critically low >=60 [facility] [place] [facility] Comment on above: Performed By: #### B MP, FT3, TSH ####[facility] [address] [address]Dr. Rocio Hernandez Glucose [Mass/Vol] 110 mg/dL Critically high 74-106 [facility] Comment on above: Performed By: #### B MP, FT3, TSH ####[facility] [address] [address]Dr. Rocio Hernandez Potassium [Moles/Vol] 2.9 mmol/L Critically low 3.5-5.1 [facility] [place] [facility] Comment on above: Result Comment: TEST REPEATED CRITICAL VALUE VERIFIED Performed By: #### B MP, FT3, TSH ####[facility] [address] [address]Dr. Rocio Hernandez Sodium [Moles/Vol] 141 mmol/L Normal 136-145 [facility] Comment on above: Performed By: #### B MP, FT3, TSH ####[facility] [address] [address]Dr. Rocio Hernandez Urea nitrogen [Mass/Vol] 12.0 mg/dL Normal 7.0-18.0 [facility] [place] [facility] Comment on above: Performed By: #### B MP, FT3, TSH ####[facility] [address] [address]Dr. Rocio Hernandez Urea nitrogen/Creatinine [Mass ratio] 12.5 mg/mg Normal [facility] [place] [facility] Comment on above: Performed By: #### B MP, FT3, TSH ####[facility] [address] [address]Dr. Rocio Hernandez TSHon 03-22-2022 TSH 0.137 uIU/mL Critically low 0.358-3.740 [facility] Comment on above: Performed By: #### B MP, FT3, TSH ####[facility] [address] [address]Dr. Rocio Hernandez Patient Letter FTon 2020 Patient Letter FT (Inserted Image. Wilda ble to display) May 26, 2021 MADAN PERRY [address] [place] [address] MADAN PERRY 1960 Dear Madan, This is a SECOND ATTEMPT to remind you that you are due for an appointment with [employer] [facility]. Please contact our office at [phone] to schedule an appointment at your earliest convenience. Thank you, [facility] Normal [facility] Reminderson 05-26-2021 Reminders - From: Jane Onofre To: GINA - Reminders/Recalls; Sent: 01/18/2021 12:33:31 EDT Show up: 04/25/2021 12:33:00 EDT Subject: Ambulatory Reminder Due Date/Time: 06/09/2021 12:33:00 EDT Reminder/Recall sara peace 5 year colon 06/09/2021 first recall letter second rcall letter Normal [facility] Patient Letter FTon 2020 Patient Letter FT (Inserted Image. Wilda ble to display) May 05, 2021 MADAN PERRY [address] [place] [address] MADAN PERRY 1960 Dear Madan, This is a reminder that you are due for an appointment with [facility]. Please contact our office at [phone] to schedule an appointment at your earliest convenience. Thank you, [facility] Vital Signs Date Time Vital Sign Value Performing Clinician Facility 05-28-2024 13:19-0400 Body height 161.29 cm DO [employer] Work Phone: [facility] 05-28-2024 13:19-0400 Body mass index (BMI) [Ratio] 26.5 kg/m2 DO [place] Work Phone: [facility] 05-28-2024 13:19-040 Body weight 69.11 kg DO [place] Work Phone: [facility] 05-09-2022 16:35-0400 Body height 161.29 cm Adilia Mederos Other [facility] Other 05-09-2022 16:35-0400 Body mass index (BMI) [Ratio] 25.63 kg/m2 Adilia Mederos Other [facility] Other 05-09-2022 16:35-0400 Body temperature 97.8 [degF] Adilia Mederos Other [facility] Other 05-09-2022 16:35-0400 Body weight 66.68 kg Adilia Mederos Other [facility] Other 05-09-2022 16:35-0400 Diastolic blood pressure 79 mm[Hg] Adilia Mederos Other [facility] Other 05-09-2022 16:35-0400 Respiratory rate 18 /min Adilia Mederos Other [facility] Other 05-09-2022 16:35-0400 SaO2% (BldA) [Mass fraction] 98 % Adilia Mederos Other [facility] Other 05-09-2022 16:35-0400 Systolic blood pressure 136 mm[Hg] Adilia Mederos Other [facility] Other 07-21-2021 16:05-0400 Body height 161.29 cm Lilian Hanna Other [facility] Other 07-21-2021 16:05-0400 Body mass index (BMI) [Ratio] 26.5 kg/m2 Lilian Hanna Other [facility] Other 07-21-2021 16:05-0400 Body temperature 96.2 [degF] Lilian Ferreira Other [facility] Other 07-21-2021 16:05-0400 Body weight 68.95 kg Lilian Ferreira Other [facility] Other 07-21-2021 16:05-0400 Diastolic blood pressure 95 mm[Hg] Lilian Ferreira Other [facility] Other 07-21-2021 16:05-0400 Respiratory rate 18 /min Lilian Ferreira Other [facility] Other 07-21-2021 16:05-0400 SaO2% (BldA) [Mass fraction] 99 % Lilian Ferreira Other [facility] Other 07-21-2021 16:05-0400 Systolic blood pressure 132 mm[Hg] Lilian Ferreira Other [facility] Other 06-22-2021 14:20-0400 Body height 161.29 cm Adilia Mederos Other [facility] Other 06-22-2021 14:20-0400 Body mass index (BMI) [Ratio] 25.98 kg/m2 Adilia Cardenasault Other [facility] Other 06-22-2021 14:20-0400 Body temperature 96.4 [degF] Adilia Rosa M Other [facility] Other 06-22-2021 14:20-0400 Body weight 67.59 kg Adilia Cardenasault Other [facility] Other 06-22-2021 14:20-0400 Diastolic blood pressure Adilia Cardenasault Other [facility] Other 06-22-2021 14:20-0400 Respiratory rate 18 /min Adilia Mederos Other [facility] Other 06-22-2021 14:20-0400 SaO2% (BldA) [Mass fraction] 98 % Adilia Mederos Other [facility] Other 06-22-2021 14:20-0400 Systolic blood pressure 111 mm[Hg] Adilia Mederos Other [facility] Other Encounters Encounter Date Encounter Type Care Provider Facility Start: 06-11-2024 End: 06-11-2024 ambulatory IVY AGUILARMICHELLE Not Available Start: 05-28-2024 End: 05-28-2024 ambulatory DO [place] Work Phone: [facility] Work Phone: Start: 05-28-2024 End: 05-28-2024 Patient encounter procedure DO [place] Work Phone: [facility] Work Phone: Start: 05-20-2024 End: 05-20-2024 ambulatory Meet Harp MD Facility: [facility] Start: 05-13-2024 End: 05-13-2024 ambulatory Meet Harp MD Facility: [facility] Start: 03-14-2024 End: 03-14-2024 [facility]ulatory [facility] Start: 02-28-2024 End: 02-28-2024 ambulatory DO [place] Work Phone: [facility] Work Phone: Start: 02-28-2024 End: 02-28-2024 Departed Referred DO [place] Work Phone: [facility] Start: 02-20-2024 End: 02-20-2024 ambulatory [facility] Start: 01-15-2024 End: 01-15-2024 ambulatory Meet Harp MD [facility] Start: 12-04-2023 End: 12-04-2023 ambulatory Meet Harp MD Facility:[facility] Start: 11-06-2023 End: 11-06-2023 ambulatory Meet Harp MD Facility:[facility] Start: 10-09-2023 End: 10-09-2023 ambulatory Meet Harp MD Facility:[facility] Start: 08-25-2023 End: 08-25-2023 ambulatory ALIZA AGUILAR Facility:[facility] Start: 08-25-2023 End: 08-25-2023 Office outpatient visit 15 minutes Aliza Aguilar MD Work Phone: [address] [facility] Comment on above: Hand arthritis (Prim maurisio Dx) Start: 08-21-2023 End: 08-21-2023 ambulatory Meet Harp MD Facility:[facility] Start: 08-19-2023 Letter encounter Yesy Covarrubias OT Work Phone: [facility] Start: 07-31-2023 End: 07-31-2023 ambulatory Meet Harp MD Facility: [facility] Start: 07-24-2023 End: 07-24-2023 ambulatory Meet Harp MD Facility:[facility] Start: 07-20-2023 End: 07-20-2023 Patient encounter procedure DO [place] Work Phone: [facility] [address] Work Phone: Start: 07-20-2023 End: 07-20-2023 ambulatory DO [place] Work Phone: [facility] Work Phone: Start: 07-10-2023 End: 07-10-2023 ambulatory Meet Harp MD Facility:[facility] Start: 06-16-2023 End: 06-17-2023 ambulatory UNKNOWN PROVIDER Facility:[facility] Start: 06-16-2023 End: 06-16-2023 Office outpatient visit 25 minutes Aliza Aguilar MD Work Phone: [facility] [address] [facility] Orth[facility] Comment on above: Left hand pain (Prim maurisio Dx) Start: 06-16-2023 End: 06-16-2023 Subsequent hospital visit by physician [address] Op Op X-Ray 1 Work Phone: [facility] [address] S[facility] Diag Radiology Comment on above: Left hand pain Start: 02-07-2023 End: 02-08-[address] [place] Facility:[facility] Start: 01-27-2023 End: 01-28-[address] [place] Facility:[facility] Start: 01-23-2023 End: 02-22-2023 ambulatory SHAIKH Eduardo ROSS Facility:[facility] Start: 01-16-2023 Encounter for genera l adult medical examination without abnormal findings DR [place] [facility] Start: 01-12-2023 End: 01-13-2023 ambulatory [...] 05-09-2022 End: 05-09-2022 ambulatory Adilia Mederos Other [facility] Other Start: 05-09-2022 Office outpatient vi sit [...] vaccination Tetanus (T d or Tdap) [facility] Start: 01-13-2028 Cholesterol [Mass/volume] in Serum or Plasma Cholesterol [facility] Start: 05-28-2024 Patient referral [facility] Work Phone: Start: 08-25-2023 End: 08-25-2023 Patient encounter procedure 08/25/2023 11:30 AM EST Office Visit [address] S[address] [facility] Orth[facility]ics [address] [place] [address] Aliza Aguilar MD [address] [place] [address] S[facility] Orthopedics Start: 07-20-2023 XR pre/post mri xray XR pre/post mri xray [facility] Start: 07-20-2023 [facility] Start: 07-20-2023 MR Wrist - left WO contrast [facility] Start: 07-20-2023 MRI of left wrist MR wrist LT wo con [facility] Start: 07-20-2023 MR Hand - left WO contrast [facility] Start: 07-20-2023 MRI of left hand MR hand LT wo con [facility] Start: 06-25-2023 Influenza vaccination [facility] Start: 06-16-2023 End: 06-16-2024 MR Wrist - left WO contrast MR WRIST LEFT W/O Imaging Routine Left hand pain Expected: 06/16/2023, Expires: 06/16/2024 [facility] Work Phone: Comment on above: Expected: 06/16/2023 , Expires: 06/16/2024 Start: 05-26-2023 COVID-19 Vaccine ( season) COVID-19 Vaccine ( season) [facility] Start: 05-26-2023 Influenza vaccination Influenza Vacc ine (#1) [facility] Start: 06-25-2022 Influenza vaccination Influenza Vacc ine (#1) [facility] Start: 06-08-2022 COVID-19 Vaccine (4 - Booster for Pfizer series) COVID-19 Vaccine (4 - Booster for Pfizer series) [facility] Start: 2019 RSV vaccine (optiona l 60+ years) RSV vaccine (optional 60+ years) [facility] Start: 09-25-2014 Annual wellness visit Annual W ellness Visit ([id number]) [facility] Start: 2009 Measurement of occul t [...] for malign ant neoplasm of breast Mammography [facility] Start: 02-11-1980 Screening for malign ant neoplasm of cervix Pap Smear [facility] Start: 1977 Hepatitis C screening Hepatitis C An tibody [facility] Start: 1974 HIV screening HIV Test [facility] Start: 1960 COVID-19 Vaccine ( formulation) COVID-19 Vaccine ( formulation) [facility] Start: 1960 Screening for malign ant neoplasm of colon Colonoscopy [facility] Patient referral [facility] Work Phone: Immunizations Immunization Date Immunization Notes Care Provider [facility] 08-11-2023 influenza, injectabl e, quadrivalent, preservative free Aliza Aguilar MD Work Phone: [facility] 08-11-2023 Respiratory syncytia l virus (RSV), vaccine, bivalent, protein subunit RSV prefusion F, diluent reconstituted, 0.5 mL, preservative free (MWB=207) Aliza Aguilar MD Work Phone: [facility] 06-18-2022 influenza, injectabl e, quadrivalent, preservative free Aliza Aguilar MD Work Phone: [facility] 06-18-2022 influenza virus vacc ine, unspecified formulation Aliza Aguilar MD Work Phone: [facility] 02-05-2022 Pfizer Monovalent (1 2+ yrs) SARS-COV-2 (COVID-19) vaccine, mRNA, spike protein, LNP, pres. free, 30 mcg/0.3mL dose, betito-sucrose (AVG=108) Aliza Aguilar MD Work Phone: [facility] 08-11-2021 influenza, injectabl e, quadrivalent, preservative free Yesy Marci OT Work Phone: [facility] 08-11-2021 influenza virus vacc ine, unspecified formulation Yesy Marci OT Work Phone: [facility] 07-24-2020 zoster vaccine recombinant K sakshin Marci OT Work Phone: [facility] 07-11-2020 Influenza, injectabl e, Madin [place] Canine Kidney, preservative free, quadrivalent Yesy Marci OT Work Phone: [facility] 04-18-2020 zoster vaccine recombinant K dengryn Marci OT Work Phone: [facility] 08-28-2019 Influenza, injectabl e, Madin [place] Canine Kidney, preservative free, quadrivalent Yesy Marci OT Work Phone: [facility] 07-01-2019 influenza, high dose seasonal, preservative-free Yesy Macri OT Work Phone: [facility] 06-25-2019 pneumococcal polysac charide vaccine, 23 valent Yesy Marci OT Work Phone: [facility] 07-06-2018 influenza, injectabl e, quadrivalent, contains preservative Yesy Marci OT Work Phone: [facility] 06-04-2018 tetanus toxoid, redu karen diphtheria toxoid, and acellular pertussis vaccine, adsorbed Yesy Marci OT Work Phone: [facility] 08-19-2017 influenza, injectabl e, quadrivalent, preservative free Yesy Marci OT Work Phone: [facility] 08-09-2017 influenza, injectabl e, quadrivalent, contains preservative Yesy Marci OT Work Phone: [facility] 08-01-2016 influenza, injectabl e, quadrivalent, preservative free Yesy Marci OT Work Phone: [facility] 07-11-2015 influenza, injectabl e, madin zakia canine kidney, preservative free Yesy Marci OT Work Phone: [facility] 07-11-2015 pneumococcal conjuga te vaccine, 13 valent Yesy Marci OT Work Phone: [facility] 08-13-2009 novel influenza-H1N1 -09, preservative-free, injectable Yesy Marci OT Work Phone: [facility] 07-17-2009 influenza virus vacc ine, unspecified formulation Yesy Marci OT Work Phone: [facility] 08-15-2008 influenza virus vacc ine, unspecified formulation Yesy Marci OT Work Phone: [facility] Payers Date Payer Category Payer Self-pay [id number] 2018 Unknown [id number] 2013 Medicare [id number] 1960 [facility] [id number] 1960 Medicare [id number] [id number] 1959 Unknown [id number] 2.16.840.1.669463.3.579.2.593 1959 Unknown [id number] 2.16.840.1.586082.3.579.2.593 1959 Unknown [id number] 2.16.840.1.733247.3.579.2.593 1959 Unknown [id number] 2.16.840.1.192973.3.579.2.593 1959 Unknown [id number] 2.16.840.1.236105.3.579.2.593 1959 Unknown [id number] 2.16.840.1.987405.3.579.2.593 1959 Unknown [id number] 2.16.840.1.523729.3.579.2.593 1959 Unknown [id number] 2.16.840.1.268595.3.579.2.59 1959 Unknown [id number] 2.16.840.1.966156.3.579.2.59 1959 Unknown [id number] 2.16.840.1.402579.3.579.2.59 1959 Unknown [id number] 2.16.840.1.813152.3.579.2.59 1959 Unknown [id number] 2.16.840.1.599752.3.579.2.593 1959 Unknown [id number] 2.16.840.1.392877.3.579.2.59 1959 Unknown [id number] 2.16.840.1.530953.3.579.2.593 1959 Unknown [id number] 2.16.840.1.320338.3.579.2.59 1959 Unknown [id number] 2.16.840.1.654935.3.579.2.593 1959 Unknown [id number] 2.16.840.1.121774.3.579.2.59 1959 Unknown [id number] 2.16.840.1.086026.3.579.2.593 1959 Unknown [id number] 2.16.840.1.451724.3.579.2.593 1959 Unknown [id number] 2.16.840.1.936335.3.579.2.593 1959 Unknown [id number] 2.16.840.1.243186.3.579.2.732 1959 Unknown [id number] 2.16.840.1.072560.3.579.2.732 1959 Unknown [id number] 2.16.840.1.697248.3.579.2.732 1959 Unknown [id number] 2.16.840.1.470384.3.579.2.1286 1959 Unknown [id number] 2.16.840.1.110595.3.579.2.1286 1959 Unknown [id number] 2.16.840.1.135792.3.579.2.196 1959 Unknown [id number] 2.16.840.1.201972.3.579.2.196 1959 Unknown [id number] 2.16.840.1.348627.3.579.2.196 1959 Unknown [id number] 2.16.840.1.477834.3.579.2.196 1959 Unknown [id number] 2.16.840.1.395649.3.579.2.196 1959 Unknown [id number] 2.16.840.1.221252.3.579.2. 1959 Unknown [id number] 2.16.840.1.801911.3.579.2. 1959 Unknown [id number] 2.16.840.1.840349.3.579.2.196 1959 Unknown [id number] 2.16.840.1.121609.3.579.2.196 1959 Unknown [id number] 2.16.840.1.144513.3.579.2.196 1959 Unknown [id number] 2.16.840.1.136327.3.579.2.1259 Medicare Medicare Nonpatient [id number] Unknown [id number] 2.16.840.1.372338.3.579.2.531 Unknown [id number] 2.16.840.1.568311.3.579.2.531 Social History Date Type Detail Facility Unknown if ever smoked [email or web address] Other Sex Assigned At [facility] Other Start: 11-18-2018 End: 05-31-2019 Tobacco smoking status [facility] Ex-smoker [facility] History of tobacco use [facility] Start: 05-31-2019 Tobacco use and exposure Smokeless tobacco non-user [facility] Start: 04-07-2020 Alcohol intake Lifetime non-d han (finding) [facility] Start: 07-09-2019 History SDOH Alcohol Frequency 1 [facility] Start: 1960 Sex Assigned At Not on file [facility] Start: 1960 Sex Assigned At [facility] Medical Equipment Procedure Code Equipment Code Equipment Origin al Text Equipment Identifier Dates [facility] [employer] Ea1 [id number] - [id number] Start: 07-22-2019 Clinical Notes 06-22-2021 to [...] up after MRI done at [facility]. Patient Office Note or Post OP Note Name:Madan Perry Date: 08/25/2023 CC: left wrist pain at [facility] area No chief complaint on file. EXAM: [...] of this patient. Aliza Aguilar MD Injection Procedure.[facility] 08/25/2023 [id number] Madan Perry The patient requested an injection [...] a dressing applied. documented in this encounter [facility] 06-16-2023 Note Addended by: ALIZA AGUILAR on: 06/16/2023 11:34 AM Modules accepted: Orders [facility] 06-16-2023 Miscellaneous Notes Addended by: ALIZA AGUILAR on: 06/16/2023 11:34 AM Modules accepted: Orders documented in this encounter [facility] 06-16-2023 History of Presen t illness [...] continues on coumadin. documented in this encounter [facility] 05-09-2022 Evaluation note Encounter Date Diagnosis [...] Xray that was ordered outpatient by PCP [facility] Other 08-10-2022 NotePROCEDURE: XR FOOT RT MIN 3 VIEWS COMPARISON: None. HISTORY: Pain in right foot FINDINGS: BONES:No fracture, acute abnormality, or significant arthropathy. Mild enthesopathic spurring of the calcaneus at the Achilles insertion SOFT TISSUES:Negative. No visible soft tissue swelling. EFFUSION:None visible. OTHER: Negative. IMPRESSION: No acute abnormality Electronically authenticated by: MARTINEZ HARVEY Date: 2022-05-04 16:22[facility]10-27-2021 Evaluation note* Encounter Date Diagnosis Assessment Notes Treatment Notes Treatment Clinical Notes Jun, Swelling of left elbow (ICD-10 - M25.422) Jun, Other Patient refe rred to the ER due to swelling, ecchymosis, pain of her left elbow with no known injury. It is felt the patient needs blood work to evaluate [facility] Other 09-28-2021 Evaluation note* Encounter Date Diagnosis Assessment Notes Treatment Notes Treatment Clinical Notes May, Bee sting, undetermined intent, initial encounter (ICD-10 - T63.444A) May continue Xyzal and Benadryl as directed. [facility] Other Evaluation note* Diagnosis Left hand pain- Primary Pain in limb Left hand pain Pain in limb [facility] Diagnosis Left [facility] pain Pain in limb [facility] Work Phone: Evaluation note* Diagnosis Hand [...] second t roseann Hospitalization History see above [facility] Other Hospital Discharge instructionsAmbulatory Orders* Referral to Speech/PT/OT (PT/OT/SP) Location: None [facility] Work Phone: Summary Purpose Family History No [...] Diagnoses Left hand pain Aliza Aguilar MD [address] [place] [address] Referral ID Status Reason Start Date Expiration Date Visits Requested Visits Authorized [id number] Authorized Patient Preference 06/16/2023 06/16/2024 3 3 Comments Near home, [place], [place] Specialty Diagnoses / Procedures Referred By Randi cardona Referred To Contact Radiology Diagnoses Left hand pain Procedures MR WRIST LEFT W/O Aliza Aguilar MD [address] [place] [address] [facility] MRI [address] [place] [address] Referral ID Status Reason Start Date Expiration Date V isits Requested Visits Authorized [id number] Authorized 06/16/2023 06/15/2024 1 1 Specialty Diagnoses / Procedures Referred By Randi cardona Referred To Contact Radiology Diagnoses Left hand pain Procedures XR HAND LEFT 3 VIEWS [facility] [address] [place], [place] [id number] [facility] [address] [place] [address] Referral ID Status Reason Start Date Expiration Date Visits Re quested Visits Authorized [id number] Closed 06/16/2023 06/15/2024 1 1 Chief Complaint and Reason for Visit Chief Complaint median nerve karel krista Chief Complaint Unknown Chief Complaint Unknown DISC DEGENERATION-THORACIC AREA Additional Source Comments INFORMATION SOURCE (unrecogn ized section and content) DATE CREATED AUTHOR 05/27/[address] [facility] DATE CREATED AUTHOR AUTHOR'S ORGANIZ ATION 03/03/2023 [facility] DATE CREATED AUTHOR AUTHOR'S ORGANIZ ATION 08/28/2023 [facility] DATE CREATED AUTHOR AUTHOR'S ORGANIZ ATION 12/23/2023 [facility] DATE CREATED AUTHOR AUTHOR'S ORGANIZ ATION 02/29/[address] [facility] DATE CREATED AUTHOR AUTHOR'S ORGANIZ ATION 03/16/2024 [facility] DATE CREATED AUTHOR AUTHOR'S ORGANIZ ATION 05/24/[address] [facility] DATE CREATED AUTHOR AUTHOR'S ORGANIZ ATION 06/13/2024 [facility] EPIC REASON FOR VISIT (unrecogniz ed section and content) Reason Comments Hand/finger symptoms Specialty Diagnoses / Procedures Referred By Contcharisma t Referred To Contact Radiology Diagnoses Left hand pain Procedures XR HAND LEFT 3 VIEWS [facility] [address] [address] [facility] [address] [place] [address] Dr [place] [phone] Referral ID Status Reason Start Date Expiration Date Visits Re quested Visits Authorized [id number] Closed 06/16/2023 06/15/2024 1 1 Reason Comments Hand/finger symptoms Care Teams (unrecognized sec tion and content) 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 Specialty Start Date End Date Yesy Covarrubias, OT [address] [place] [address] [place] [address] Occupational Therapist Occupational Therapy 06/30/20 Aliza Aguilar MD [address] [place] [phone] Physician Orthopaedic Hand Service 06/30/20 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 Specialty Start Date End Date Yesy Covarrubias OT [address] [place] [address] [place] [address] Occupational Therapist Occupational Therapy 06/30/20 Aliza Aguilar MD [address] [place] [phone] Physician Orthopaedic Hand Service 06/30/20 [employer]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 Specialty Start Date End Date Yesy Covarrubias, OT [address] [facility] [place] [address] Occupational Therapist Occupational Therapy 06/30/20 Aliza Aguilar MD [address] [place] [phone] Physician Orthopaedic Hand Service 06/30/20 Team Status: Active Member Role Status Dates [place] DO Primary Care Provider Active Team Status: Inactive Member Role Status Dates [place] DO Primary Care Provider Active Aliza Aguilar Attending Provider Active 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 Specialty Start Date End Date Yesy Covarrubias, OT [address] [facility] [place] [address] Occupational Therapist Occupational Therapy 06/30/20 Aliza Aguilar MD [address] [place] [phone] Physician Orthopaedic Hand Service 06/30/20 [employer] Con[employer]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 [facility]. provides no warranty or guarantee of the accuracy or completeness of information in this document.
[2024-07-02 14:39] LABS: Basophils Absolute Auto 0.1 10^3/uL (0.0-0.1); Eosinophils Absolute Auto 0.2 10^3/uL (0.0-0.7); Eosinophils Percent Auto 2.4 % (0.9-7.0); Hematocrit 28.4 % (36.0-48.0); Hemoglobin 7.9 g/dL (12.0-16.0); Immature Granulocytes Abs Auto 0.03 10^3/uL (0.00-0.03); Immature Granulocytes Pct Auto 0.4 % (0.0-0.5); Lymphocytes Absolute Auto 0.9 10^3/uL (1.2-3.8); Lymphocytes Percent Auto 11.1 % (20.5-60.0); Mean Corpuscular Hemoglobin 17.8 pg (26.7-34.0); Mean Platelet Volume 8.2 fL (9.5-13.5); Monocytes Absolute Auto 0.6 10^3/uL (0.3-0.8); Monocytes Percent Auto 7.9 % (1.7-12.0); Neutrophils Absolute Auto 5.9 10^3/uL (1.4-6.5); Neutrophils Percent Auto 77.2 % (43.0-75.0); Platelet Count 625 10^3/uL (150-450); Red Blood Count 4.43 10^6/uL (4.20-5.40); White Blood Count 7.6 10^3/uL (4.0-11.0)
[2024-07-02 15:08] LABS: Red Cell Distribution Width 22.8 % (11.0-15.0)
[2024-07-02 15:09] LABS: Mean Corpuscular HGB Conc 27.8 g/dL (29.9-35.2); Mean Corpuscular Volume 64.1 fL (81.0-99.0)
[2024-07-02 15:26] LABS: Anion Gap 12.7; BUN Creatinine Ratio 8.9; Calcium 8.8 mg/dL (8.5-10.1); Carbon Dioxide 26.9 mmol/L (21.0-32.0); Chloride 93 mmol/L (98-107); Estimated GFR (African America >60 (>=60 mL/min/1.73m^2); Estimated GFR (Non-African Ame >60 (>=60 mL/min/1.73m^2); Glucose 95 mg/dL (74-106); Sodium 130 mmol/L (136-145)
[2024-07-02 15:30] LABS: Potassium 2.6 mmol/L (3.5-5.1)
[2024-07-02 15:36] LABS: Percent Iron Saturation 7.6 %
--- NOTE | 2024-07-02 16:41 | PC.NURSE ---
1435: Critical potassium called to this RN. Dr. Camacho made aware. Requests pt. come in for potassium infusion tomorrow and begin oral potassium. 1640:Pt. called and notified of lab result and requested to come to [facility] for potassium infusion tomorrow. Pt relays understanding. Also informed pt. to seek medical attention if chest pain or palpitations. Pt. relays understanding.
[2024-07-03 07:10] LABS: Vitamin B12 1571 pg/mL (232-1245)
[2024-07-03] MEDS: POTASSIUM CHLORIDE 20 MEQ in 0.9 % SODIUM CHLORIDE 250 ML 130 MEQ IV (13:03)
[2024-07-03 13:04] VITALS: BP 126/74; PULSE 106; TEMP 36.3; O2SAT 98
--- NOTE | 2024-07-03 15:19 | PC.NURSE ---
1505 tolerated infusion well, no s/s of reaction, IV dc's from rt posterior lower arm, catheter intact site clear. cotton ball applied, secured with coban instructed patient to removed coban after 5-10 mins. verbalized understanding. released ambulatory
[2024-07-08] MEDS: FERUMOXYTOL 510 MG in 0.9 % SODIUM CHLORIDE 100 ML 234 MG IV (13:05)
[2024-07-08 14:12] VITALS: BP 135/68; PULSE 81; TEMP 36.4; O2SAT 97
[2024-07-15] MEDS: FERUMOXYTOL 510 MG in 0.9 % SODIUM CHLORIDE 100 ML 234 MG IV (13:05)
== END 2024-07-25 23:59 | disposition home or self-care (01) ==
LOC: INF 07:32
PROVIDERS: PCP Family Medicine; Visit Provider Internal Medicine Hematology & Oncology
DX: D50.9 Iron deficiency anemia, unspecified (principal); K90.9 Intestinal malabsorption, unspecified; D64.9 Anemia, unspecified
CPT/HCPCS: 36415; 80048; 82607; 82728; 82746; 83540; 83550; 85025; 96365; 96366; J3480; Q0138

== ENCOUNTER 2024-07-26 13:18 | Outpatient (RCR) | payer BC, MEDICARE, SELFPAY | END 2024-08-24 23:59 | disposition home or self-care (01) | LOC: MM 13:18 | PROVIDERS: PCP Family Medicine; Visit Provider Internal Medicine | DX: Z51.81 Encounter for therapeutic drug level monitoring (principal); Z79.01 Long term (current) use of anticoagulants; I82.409 Acute embolism and thrombosis of unspecified deep veins of unspecified lower extremity | CPT/HCPCS: 85610; G0463 ==

== ENCOUNTER 2024-08-07 14:31 | Outpatient (OUT) | payer BC, MEDICARE, SELFPAY ==
[2024-08-07 15:07] LABS: Hematocrit 40.4 % (36.0-48.0); Hemoglobin 12.3 g/dL (12.0-16.0); Mean Corpuscular HGB Conc 30.4 g/dL (29.9-35.2); Mean Corpuscular Hemoglobin 25.4 pg (26.7-34.0); Mean Corpuscular Volume 83.3 fL (81.0-99.0); Mean Platelet Volume 9.8 fL (9.5-13.5); Platelet Count 401 10^3/uL (150-450); Red Blood Count 4.85 10^6/uL (4.20-5.40); White Blood Count 9.8 10^3/uL (4.0-11.0)
[2024-08-07 15:21] LABS: Calcium 9.3 mg/dL (8.5-10.1); Carbon Dioxide 27.4 mmol/L (21.0-32.0); Chloride 98 mmol/L (98-107); Estimated GFR (African America >60 (>=60 mL/min/1.73m^2); Estimated GFR (Non-African Ame >60 (>=60 mL/min/1.73m^2); Glucose 100 mg/dL (74-106); Potassium 3.4 mmol/L (3.5-5.1); Sodium 135 mmol/L (136-145)
[2024-08-07 15:34] LABS: Percent Iron Saturation 21.3 %
[2024-08-07 15:59] LABS: Anisocytosis 2+; Band Neutrophils Absolute 0.7 10^3/uL (0.0-0.3); Eosinophils Absolute Manual 0.09 10^3/uL (0.00-0.70); Lymphocytes Absolute Manual 0.68 10^3/uL (1.20-3.80); Monocytes Absolute Manual 0.49 10^3/uL (0.30-0.80); Segmented Neut Absolute Manual 8.52 10^3/uL (1.4-6.5)
[2024-08-07 16:00] LABS: Ovalocytes 2+; Tear Drop Cells 1+
[2024-08-08 04:08] LABS: Vitamin B12 >2000 pg/mL (232-1245)
== END 2024-08-07 14:32 | disposition home or self-care (01) ==
LOC: LAB 14:32
PROVIDERS: PCP Family Medicine; Visit Provider Internal Medicine Hematology & Oncology
DX: D64.9 Anemia, unspecified (principal); D50.9 Iron deficiency anemia, unspecified; K90.9 Intestinal malabsorption, unspecified
CPT/HCPCS: 36415; 80048; 82607; 82728; 82746; 83540; 83550; 85007; 85027

== ENCOUNTER 2024-08-13 07:42 | Outpatient (RCR) | payer BC, MEDICARE, SELFPAY ==
--- OUTSIDE RECORDS SUMMARY | 2024-08-13 07:51 | XMS_ITS | CCD ---
Author Organization [facility] CliniSyfl Care Team Providers Care Medical Operations Supervisor Name Role Phone Adilia Mederos Unavailable Lilian Ferreira Unavailable Yesy Covarrubias OT Unavailable Aliza Aguilar MD Unavailable [phone] MATTIE, DR TANK Aguillon Primary Care Unavailable LAKE, [...] Lake, DO Tank Aguillon Primary Care Provider [phone] DO Aliza Spencer Attending Provider Aliza Spencer Admitting Unavailable Aliza Spencer Attending Unavailable Lake, Tank A Primary Care Unavailable SedrickAliza Admitting Unavailable SedrickAliza Attending Unavailable Lake, Tank A Primary Care Unavailable EBONIE SIMPSON Attending Unavailable LAKE, TANK A Referring Unavailable LAKE, TANK A Primary Care Unavailable STEVEN WESTON F Attending Unavailable LAKE, TANK A Referring [...] Acetaminophen / oxyCODONE Drug Allergy stomach upset [facility] Other (3 sources) Adhesive Tape Propensity to adverse reactions rash [facility] Other (6 sources) Cephalexin; Translations: [CEPHALEXIN] Drug Allergy 12-22-19 06 [facility] (10 sources) Erythromycin; Translations: [ERYTHROMYCIN] Drug Allergy 12-22-19 06 Other [facility] (8 sources) Iodine; Translations: [iodine] Drug Allergy 01-31-20 13 rash [facility] (7 sources) Latex; Translations: [LATEX] Propensity to adverse reactions 12-22-19 06 [facility] (7 sources) Penicillin G Benzathine; Translations: [penicillin G benzathine] Drug allergy 12-11-19 23 [facility] (3 sources) Procaine Drug Allergy headaches [facility] Other (2 sources) Cephalexin; Translations: [Keflex] Drug Allergy 01-31-20 13 anaphylaxis [facility] Rep[facility] (1 source) Novocain Drug allergy Unknown [facility] Other (8 sources) Acetaminophen; Translations: [ACETAMINOPHEN] Drug [...] Drug Allergy 12-22-19 06 Other, Rash [facility] (10 sources) Doxycycline; Translations: [DOXYCYCLINE] Drug Allergy 01-24-20 [...] Propensity to adverse reactions 09-03-20 13 [facility] ([facility] Erythromycin Base; Translations: [ERYTHROMYCIN BASE] Propensity to adverse reactions to drug 01-24-20 Other [facility] (7 sources) Iodides; Translations: [IODIDES] Propensity to adverse reactions to drug 10-31-19 14 Hives [facility] (6 sources) Other (Review Comments!); Translations: [OTHER (REVIEW COMMENTS!)] Propensity to adverse reactions to drug 07-22-20 19 Agitation [facility] Work Phone: (1 source) Ciprofloxacin Drug Allergy [facility] (1 source) Iodine (And Iodine Containting Drugs) Drug allergy (disorder) 01-31-20 13 [facility] (1 source) Latex Drug allergy (disorder) 01-31-20 13 [facility] (5 sources) Morphine; Translations: [MORPHINE] Drug Allergy 10-21-19 14 vomiting [facility] (1 source) Penicillins Drug allergy (disorder) 01-31-20 13 [facility] (1 source) Sulfonamides (Antibiotic) Drug allergy (disorder) 01-31-20 13 [facility] (1 source) Darvocet-N 100 Drug allergy (disorder) 01-31-20 13 [facility] (1 source) E.E.S. Drug allergy (disorder) 01-31-20 13 [facility] (4 sources) Adhesive Tape; Translations: [adhesive tape] Allergy to substance 12-11-19 rash [facility] (4 sources) oxyCODONE; Translations: [oxycodone] Drug Allergy 12-11-19 stomach upset [facility] (4 sources) Procaine; Translations: [procaine] Drug Allergy 12-11-19 headaches [facility] (1 source) Cephalexin Drug Allergy 12-11-19 [facility] (1 source) Doxycycline Drug Allergy 12-11-19 [facility] (1 source) Latex Drug allergy (disorder) 12-11-19 [facility] (1 source) Morphine Drug Allergy 12-11-19 [facility] (1 source) Adhesive agent; Translations: [...] mg / caffeine 40 mg oral capsule (13 sources) Barbiturate, Central Nervous System Stimulant, Methylxanthine Start: 05-28-2024 take 1 capsule by mouth every eight hours Butalbital-Aceta minophen-Caff (Fioricet) 50-300-40 mg capsule Active 1 CAP PO Every 8 hours May 28, 2024 12:00am Butalbital-APAP- Caffeine 50-300-40 MG CAPS Take by mouth daily as needed. 0 Active take 1 capsule by mo akh every four hours Cdxmwtkzra-QZYH-Qbzvfkcp 50-325-40 MG 1 capsule as needed Orally every 4 hrs Not-Taking Fioricet Active acetaminophen 325 mg / HYDROcodone bitartrate 5 mg oral tablet (12 sources) Opioid Agonist Start: 05-28-2024 take 1 tablet by mouth every eight hours Hydrocodone-Acetaminophen Active 1 TAB PO Every 8 hours May 28, 2024 12:00am take 1 tablet by mouth once hydr ocodone-acetaminophen (NORCO) 5-325 mg per tablet Take 1 Tablet by mouth. 0 Active HYDROcodone-Acet aminophen 7.5-300 MG Orally Not-Taking [place] Active acyclovir 400 mg oral tablet (10 sources) Herpesvirus Nucleoside Analog DNA Polymerase Inhibitor, [...] aking amitriptyline hydrochloride 100 mg oral tablet (5 sources) Tricyclic Antidepressant Start: 05-28-2024 take 100 mg by mouth once daily Amitriptyline Active 100 MG PO Daily May 28, 2024 12:00am Amitriptyline HC l Active ARIPiprazole 10 mg oral tablet (2 sources) Atypical Antipsychotic Start: 05-28-2024 take 10 mg by mouth once daily Aripiprazole Active 10 MG PO Daily May 28, 2024 12:00am atorvastatin 10 mg oral tablet (6 sources) HMG-CoA Reductase Inhibitor Start: 05-28-2024 take [...] Active cyclobenzaprine hydrochloride 10 mg oral tablet (5 sources) Muscle Relaxant Start: 05-28-2024 take 10 mg by mouth once daily at bedtime Cyclobenzaprine Active 10 MG PO Daily at bedtime May 28, 2024 12:00am Cyclobenzaprine HCl Active Cyclobenzaprine HCl Not-Taking fexofenadine (5 sources) Histamine-1 Receptor Antagonist Fexofenadine HCl (DI ORAL) Take by mouth daily. 0 Active fluticasone (9 sources) Corticosteroid Start: take 1 puff(s) by inhalation twice daily Fluticasone Propionate Active 1 PUFF INHALATION Twice daily May 28, 2024 12:00am administer with spacer take 2 puff(s) by mouth twice da jaden fluticasone (FLOVENT HFA) 44 MCG/ACT inhaler Inhale 2 Puffs by mouth 2 times daily. 0 Active Flovent Diskus A ctive Whypnjxhdin-Cgaggdekt-Zoleuc er (2 sources) Anticholinergic, Corticosteroid, beta2-Adrenergic Agonist Start: 05-28-2024 Qsfmbcxnnuo-Zhbjojpbw-Jbsain er (Trelegy Ellipta) 100-62.5-25 mcg blister with device Active 1 INH INHALATION Daily May 28, 2024 12:00am 1.5 ml fremanezumab-vfrm 150 mg/ml prefilled syringe (2 sources) Start: 05-28-2024 Fremanezumab-Vfrm (Ajovy Autoinjector) 225 mg/1.5 [...] Not-Taking hydrOXYzine hydrochloride 25 mg oral tablet (5 sources) Antihistamine Start: 05-28-2024 take 25 mg by mouth once daily at bedtime Hydroxyzine Hcl Active 25 MG PO Daily at bedtime May 28, 2024 12:00am hydrOXYzine HCl Active Lactobacillus acidophilus (1 source) Acidophilus Acti ve levocetirizine dihydrochloride 5 mg oral tablet (3 sources) Histamine-1 Receptor Antagonist Start: 05-28-20 take 1 tablet by mouth once daily Levocetirizine (Xyzal) 5 mg tablet Active 5 MG PO Daily May 28, 2024 12:00am Xyzal Active levothyroxine sodium 0.125 mg oral tablet (10 sources) l-Thyroxine Start: 05-28-2024 Levothyroxine Active MCG [...] Synthroid Active linaclotide 0.072 mg oral capsule (9 sources) Guanylate Cyclase-C Agonist Start: 05-28-2024 take 1 capsule by mouth once daily Linaclotide (Linzess) 72 mcg capsule Active 72 MCG PO Daily May 28, 2024 12:00am take 1 capsule by mouth once glenn ly linaclotide (Linzess) 72 MCG CAPS capsule Take 72 mcg by mouth daily. 0 Active Linzess Active lisinopril 5 mg oral tablet (8 sources) Angiotensin Converting Enzyme Inhibitor Start: 05-28-2024 [...] May, Active montelukast 10 mg oral tablet (10 sources) Leukotriene Receptor Antagonist Start: 05-28-2024 take 10 mg by mouth once daily Montelukast Active 10 MG PO Daily May 28, 2024 12:00am take 1 tablet by mouth once laura y montelukast (SINGULAIR) 10 MG tablet Indications: Brachial neuritis or radiculitis Take 10 mg by mouth daily. 0 Active Montelukast Sodi um Active NIFEdipine 10 mg oral capsule (2 sources) Dihydropyridine Calcium Channel Ruben Start: 05-28-2024 take 10 mg by mouth twice daily Nifedipine Active 10 MG PO Twice daily May 28, 2024 12:00am omeprazole 40 mg delayed release oral capsule (10 sources) Proton Pump Inhibitor Start: 05-28-2024 take [...] Active phentermine hydrochloride 37.5 mg oral capsule (4 sources) Sympathomimetic Amine Anorectic Start: 05-28-2024 take 37.5 mg by mouth once daily 30 minutes after breakfast Phentermine Active 37.5 MG PO Daily May 28, 2024 12:00am must administer 30 minutes before or 1-2 hours after breakfast Phentermine HCl Active potassium chloride 20 meq extended release oral tablet (10 sources) Start: 05-28-2024 take 1 tablet by mouth once daily Potassium Chloride (K-Tab) 20 mEq tablet extended release Active 20 MEQ PO Daily May 28, 2024 12:00am Potassium Chlori de (KLOR-CON ORAL) Indications: Brachial neuritis or radiculitis Take by mouth 3 times daily. 0 Active Klor-Con M20 Act annamaria pseudoephedrine hydrochloride 30 mg oral tablet (2 sources) alpha-Adrenergic Agonist Start: 05-28-2024 take 1 tablet by mouth every four to six hours Pseudoephedrine Hcl (Sudafed) 30 mg tablet Active 30 MG PO EVERY 4-6 HOURS May 28, 2024 12:00am DNExceed 4 doses/24h tiZANidine 4 mg oral capsule (2 sources) Central alpha-2 Adrenergic Agonist Start: 05-28-2024 take [...] injection vilazodone hydrochloride 40 mg oral tablet (9 sources) Start: 05-28-2024 take 40 mg by mouth once daily at mealtime Vilazodone Active 40 MG PO Daily May 28, 2024 12:00am must administer with a meal/food take 1 tablet by mouth once laura y Vilazodone HCl 40 MG TABS Take 40 mg by mouth daily. 0 Active Viibryd Active vitamin b12 1 mg oral capsule (8 sources) Vitamin B12 Start: 05-28-2024 take 1000 ug by mouth once daily Cyanocobalamin (Vitamin B-12) Active 1000 MCG PO daily May 28, 2024 12:00am cyanocobalamin 1 000 MCG tablet Take 1,000 mcg by mouth every 28 days. 0 Active Cyanocobalamin A ctive Vitamin D3 (1 source) Vitamin D3 Activ e warfarin sodium 1 mg oral tablet (12 sources) Vitamin K Antagonist Start: 05-28-2024 take 1 mg by mouth three times weekly Warfarin Active 1 MG PO 3 Times a week May 28, 2024 12:00am Start: 05-28-2024 Warfarin Activ e 2 MG PO MOWEFR May 28, 2024 12:00am Warfarin Sodium (COUMADIN ORAL) Indications: Brachial neuritis or radiculitis Take by mouth daily. Followed in coumadin clinic [place], [place] 0 Active take 1 tablet by lisa two times weekly Warfarin Sodium 3 MG 1 tablet Orally Two times a Week for 30 day(s) Active Completed/Discontinued Medications Medication Drug Class(es) Dates Sig (Normalized) Sig (Original) Di-D 24 Hour (3 sources) Di-D 24 Sukhjinder r Not-Taking 168 hr buprenorphine 0.005 mg/hr transdermal system (2 sources) Partial Opioid Agonist Start: 05-28-2024 End: 06-27-2024 Buprenorphine Discontinued TOPICAL May 28, 2024 12:00am June 27, 2024 12:53pm eszopiclone 3 mg oral tablet (3 sources) take 1 tablet by mouth every twenty-four hours Lunesta 3 MG 1 tablet immediately before bedtime Orally Once a day Not-Taking HYDROcodone / Ibuprofen (3 sources) Opioid Agonist, Nonsteroidal Anti-inflammatory Drug HYDROcodone-Ibupro fen Not-Taking Levothyroxine Sodium unknown (3 sources) take 1 tablet by mouth once daily in the morning naloxone hydrochloride 40 mg/ml nasal spray (4 sources) Opioid Antagonist Start: 07-22-2019 End: 06-16-2023 naloxone 4 mg/0.1 mL nasal liquid Instill 1 [place] into one nostril (alternate sides) as needed. [...] Classification Problem Date Documented Da te Episodic/Chronic Deficiency and other anemia (1 source) Iron deficiency anemia; Translations: [Iron deficiency anemia, unspecified] 06-27-2024 Episodic Osteoarthritis (16 sources) Degenerative joint disease of thumb; Translations: [Primary osteoarthritis, unspecified hand] Onset: 02-01-2008 07-25-2018 Chronic Other aftercare (5 sources) Encounter for therapeutic drug level monitoring; Translations: [ENC THERAPEUTC DRUG LEVL MONITORING] Onset: 01-21-2023 Episodic Other aftercare (1 source) shelter (current) use of anticoagulants; Translations: [ASSISTED CURRNT USE ANTICOAGULANTS] Onset: 02-22-2023 Episodic Other [...] [Rheumatoid arthritis, unspecified] Onset: 04-06-2020 04-06-2020 Chronic Spondylosis; intervertebral disc disorders; other back problems (7 sources) Brachial neuritis; Translations: [Radiculopathy, cervical region] Onset: 06-09-2005 07-25-2018 Episodic Thyroid disorders (1 source) Hypothyroidism, unspecified; Translations: [...] encounter T63.444A] Onset: 06-22-2021 Resolved: 06-22-2021 Episodic Results Test Name Value Interpretation Reference Range Facility BASIC MET PANEL W/GFRon 06-26 Calcium [Mass/Vol] 9.5 mg/dL Normal (8.6 - 10.6) [facility] Comment on above: Order Comment: FACIL ITY: [facility] [id number] Performed By: #### C HEM-B, MG #### [facility] [address] [place], [address] Chloride [Moles/Vol] 101 mmol/L Normal (98 - 107) [facility] Comment on above: Order Comment: FACIL ITY: [facility] [id number] Performed By: #### C HEM-B, MG #### [facility] [address] [place], [address] CO2 [Moles/Vol] 26 mmol/L Normal (22 - 30) [facility] Comment on above: Order Comment: FACIL ITY: [facility] [id number] Performed By: #### C HEM-B, MG #### [facility] [address] [place], [address] Creatinine [Mass/Vol] 0.57 mg/dL Normal (0.52 - 1.04) [facility] Comment on above: Order Comment: FACIL ITY: [facility] [id number] Performed By: #### C HEM-B, MG #### [facility] [address] [place], [address] GFR- AMER 128.8 ML/M1.7 Normal (60.0 - 140.1) [facility] Comment on above: Order Comment: FACIL ITY: [facility] [id number] Performed By: #### C HEM-B, MG #### [facility] [address] [place], [address] GFR-NON AFRIC-AMER 106.4 ML/M1.7 Normal (60.0 - 115.8) [facility] Comment on above: Order Comment: FACIL ITY: [facility] [id number] Performed By: #### C HEM-B, MG #### [facility] [address] [place], [address] Glucose [Mass/Vol] 73 mg/dL Low (74 - 106) [facility] Comment on above: Order Comment: FACIL ITY: [facility] [id number] Performed By: #### C HEM-B, MG #### [facility] [address] [place], [address] Potassium [Moles/Vol] 5.4 mmol/L High (3.5 - 5.1) [facility] Comment on above: Order Comment: FACIL ITY: [facility] [id number] Performed By: #### C HEM-B, MG #### [facility] [address] [place], [address] Sodium [Moles/Vol] 131 mmol/L Low (137 - 145) [facility] Comment on above: Order Comment: FACIL ITY: [facility] [id number] Performed By: #### C HEM-B, MG #### [facility] [address] [place], [address] Urea nitrogen [Mass/Vol] 9 mg/dL Normal (4 - 25) [facility] Comment on above: Order Comment: FACIL ITY: [facility] [id number] Performed By: #### C HEM-B, MG #### [facility] [address] [place], [address] MAGNESIUMon 07-17-2024 Magnesium [Mass/Vol] 2.1 mg/dL Normal (1.6 - 2.3) [facility] Comment on above: Performed By: #### C HEM-B, MG #### [facility] [address] [facility], [id number] Venkat 02-28-2024 L Specimen: [id number] Received: 02/28/24 Status: DUDLEY Powell Num: [id number] Spec Type: Surgical Subm Dr: Aliza Spencer DO Tissues: A Stomach - Biopsy/Polyp (ANTRUM BX) B Stomach - Biopsy/Polyp (BX FUNDAL GLAND POLYP) C Esophagus Biopsy (DISTAL ESOPH BX) D Esophagus Biopsy (UPPER ESOPH BX) Procedures: HE/8, Gross/Micro L4/4 Age/ Patient Sex Location Account Attending Physician Madan Perry 64/F LABELL [id number] Aliza Spencer DO SPEC NUM: [id number] RECD: 02/28/24 STATUS: DUDLEY XIAODavid NUM: [id number] SUNSHINE: 02/28/24 [facility] DR: Aliza Spencer DO ENTERED: 02/28/24 [facility] DR: Eben Newell SPEC TYPE: Surgical DEPT: [...] tissue fragment, entirely submitted in B1. Specimen: [id number] Received: 02/28/24 Status: SIENARaghu Powell Num: [id number] Spec Type: Surgical Subm Dr: Aliza Spencer DO Tissues: A Stomach - Biopsy/Polyp (ANTRUM BX) B Stomach - Biopsy/Polyp (BX FUNDAL GLAND POLYP) C Esophagus Biopsy (DISTAL ESOPH BX) D Esophagus Biopsy (UPPER ESOPH BX) Procedures: HE/8, Gross/Micro L4/4 Patient: Madan Perry [id number] (Continued) Specimen: [id number] Received: 02/28/24 (Continued) Gross Description (Continued) Signed (signature on file) Steven Ruvalcaba MD 02/29/24 1501 Specimen: [id number] Received: 02/28/24 Status: DUDLEY Powell Num: [id number] Spec Type: Surgical Subm Dr: Aliza Spencer DO Tissues: A Stomach - Biopsy/Polyp (ANTRUM BX) B Stomach - Biopsy/Polyp (BX FUNDAL GLAND POLYP) C Esophagus Biopsy (DISTAL ESOPH BX) D Esophagus Biopsy (UPPER ESOPH BX) Procedures: Ratna, Gross/Micro L4/4 Patient: Madan Perry [id number] (Continued) Specimen: [id number] Received: 02/28/24 (Continued) Gross Description (Continued) C. Further labeled distal esophagus BX are 2 jiménez mucosal tissue fragments measuring 0.3 x 0.2 x 0.1 cm and 0.2 x 0.2 x 0.1 cm, entirely submitted in C1. D. Further labeled upper esophagus BX are 2 jiménez mucosal tissue fragments each measuring 0.2 x 0.1 x 0.1 cm, entirely submitted in D1. CPT Codes 35484e3 Specimen: [id number] Received: 02/28/24-1256 Status: DUDLEY Powell Num: [id number] Spec Type: Surgical Subm Dr: Aliza Spencer DO Tissues: A Stomach - Biopsy/Polyp (ANTRUM BX) B Stomach - Biopsy/Polyp (BX FUNDAL GLAND POLYP) C Esophagus Biopsy (DISTAL ESOPH BX) D Esophagus Biopsy (UPPER ESOPH BX) Procedures: WILEY/Ratna, Gross/Micro L4/4 Patient: Madan Perry [id number] (Continued) Signed (signature on file) Steven Ruvalcaba MD 02/29/24 1508 Normal [facility] URINE CULTUREon 12-23-2023 Bacteria identified Cx Nom (U) FINAL Normal (. - .) [facility] Comment on above: Order Comment: MS CC FACILITY: [facility] [id number] Result Comment: HUA N CATCH MID-STREAM URINE > 10,000 BUT < 100,000 CFU/ML RESEMBLES A CONTAMINATED URINE COLLECTION Performed By: #### C -UR #### [facility] [address] [place], [address] BASIC MET PANEL W/GFRon 12-0 -2022 Calcium [Mass/Vol] 9.2 mg/dL Normal (8.6 - 10.6) [facility] Comment on above: Order Comment: [facility] [id number] Performed By: #### C HEM-B #### [facility] [address] [place], [address] Chloride [Moles/Vol] 99 mmol/L Normal (98 - 107) [facility] Comment on above: Order Comment: [facility]ACIL ITY[facility] [id number] Performed By: #### C HEM-B #### [facility] [address] [place], [address] CO2 [Moles/Vol] 27 mmol/L Normal (22 - 30) [facility] Comment on above: Order Comment: FACIL ITY[facility] [id number] Performed By: #### C HEM-B #### [facility] [address] [place], [address] Creatinine [Mass/Vol] 0.74 mg/dL Normal (0.52 - 1.04) [facility] Comment on above: Order Comment: FACIL ITY[facility] [id number] Performed By: #### C HEM-B #### [facility] [address] [place], [address] GFR- AMER 95.6 ML/M1.7 Normal (60.0 - 140.1) [facility] Comment on above: Order Comment: FACIL ITY: [facility] [id number] Performed By: #### C HEM-B #### [facility] [address] [place], [address] GFR-NON AFRIC-AMER 79.0 ML/M1.7 Normal (60.0 - 115.8) [facility] Comment on above: Order Comment: FACIL ITY: [facility] [id number] Performed By: #### C HEM-B #### [facility] [address] [place], [address] Glucose [Mass/Vol] 100 mg/dL Normal (74 - 106) [facility] Comment on above: Order Comment: FACIL ITY: [facility] [id number] Performed By: #### C HEM-B #### [facility] [address] [place], [address] Potassium [Moles/Vol] 4.6 mmol/L Normal (3.5 - 5.1) [facility] Comment on above: Order Comment: FACIL ITY: [facility] [id number] Performed By: #### C HEM-B #### [facility] [address] [place], [address] Sodium [Moles/Vol] 136 mmol/L Low (137 - 145) [facility] Comment on above: Order Comment: FACIL ITY: [facility] [id number] Performed By: #### C HEM-B #### [facility] [address] [place], [address] Urea nitrogen [Mass/Vol] 11 mg/dL Normal (7 - 17) [facility] Comment on above: Order Comment: FACIL ITY: [facility] [id number] Performed By: #### C HEM-B #### [facility] [address] [place], [address] Progress Noteson 08-25-2023 Senior Web Services Developer Authentication Interface Message Text CC: Left hand and wrist pain Follow up after MRI done at [facility]. Normal [facility] [employer] Senior Web Services Developer Authentication Interface Message Text Patient Office Note or Post OP Note Name:Madan Perry Date: 08/25/2023 CC: left wrist pain at [facility] area No chief complaint on file. [...] this patient. Aliza Aguilar MD Injection Procedure.formerly [facility] 08/25/2023 [id number] Madan Perry The patient requested an injection [...] alcohol and a dressing applied. Normal The [facility] MR wrist LT wo conon 023 MR wrist LT wo con [facility] Main [place] [id number] MRI Report Signed Patient: Madan Perry MR#: [id number] : 1960 Acct:[id number] Age/Sex: 63 / F ADM Date: 07/20/23 Loc: [facility] Room: Type: [facility] Attending Dr: Aliza Aguilar Copies to: Aliza Aguilar Ordering Provider: Aliza Aguilar Date of Service: 07/20/23 MR/MR hand LT wo con: MEDIAN NERVE COMPRESSION ([id number]) MR/MR wrist LT wo con: MEDIAN NERVE COMPRESSION ([id number]) XR/XR pre/post mri xray: MEDIAN NERVE COMPRESSION [...] Jose Dial M.D.07/21/2023 7:38 PM Dictation Location: [place] [address] Transcribed By: [facility] 07/21/231937 Dictated By: Jose Dial DO 07/20/23 1525 Signed By: 07/21/231937 Normal [facility] Telephone Encounteron 2022 Senior Web Services Developer Authentication Interface Message Text Spoke with patient and scheduled. Normal [facility] [employer] [facility] Telephone Encounteron 2022 Senior Web Services Developer Authentication Interface Message Text Pt called as [...] she would need something sooner. Contact pt @[phone] Normal [facility] [employer] [facility] Addendum Noteon 06-16-2023 Senior Web Services Developer Authentication Interface Message Text Addended by: ALIZA AGUILAR on: 06/16/2023 11:34 AM Modules accepted: Orders Normal [facility] [employer] [facility] Progress Noteson 06-16-2023 Senior Web Services Developer Authentication Interface Message Text Patient Office Note [...] this patient. Aliza Aguilar MD Normal [facility] [employer] [facility] Senior Web Services Developer Authentication Interface Message Text CC: Left hand [...] with the findings. Left hand MACRO: None [facility] Radiology Study observation (narrative) [facility] - [facility] 3 ViewsOrdere d By: Alberto Llanes on 06-16-2023 [employer] Work Phone: US DARNELL DOP LEG BILon [...] L[place]IS [place] Date: 2023-01-27 17:22 Normal [facility] CBC AUTO DIFFon 01-12-2023 BASO # 0.1 103/ul Normal 0.0-0.1 [facility] Comment on above: Performed By: #### C BC #### [facility] [address] [address] [address] Rocio Hernandez Basophils/100 WBC (Bld) 1.0 % Normal 0.2-2.0 [facility] Comment on above: Performed By: #### C BC #### [facility] [address] [address] [address] Rocio Hernandez EO # 0.2 103/ul Normal 0.0-0.7 [facility] Comment on above: Performed By: #### C BC #### [facility] [address] [address] [address] Rocio Hernandez Eosinophils/100 WBC (Bld) 2.9 % Normal 0.9-7.0 [facility] Comment on above: Performed By: #### C BC #### [facility] [address] [place] [address] Dr. Rocio Hernandez Erythrocyte distribution width (RBC) [Ratio] 14.1 % Normal 11.0-15.0 [facility] Comment on above: Performed By: #### C BC #### [facility] [address] [place] [address] Dr. Rocio Hernandez Hematocrit (Bld) [Volume fraction] 41.2 % Normal 36.0-48.0 [facility] Comment on above: Performed By: #### C BC #### [facility] [address] [place] [address] Dr. Rocio Hernandez Hemoglobin (Bld) [Mass/Vol] 13.6 g/dL Normal 12.0-16.0 [facility] Comment on above: Performed By: #### C BC #### [facility] [address] [place] [address] Dr. Rocio Hernandez IG # 0.01 10e3/ul Normal 0.00-0.03 [facility] Comment on above: Performed By: #### C BC #### [facility] [address] [place] [address] Dr. Rocio Hernandez IG % 0.2 % Normal 0.0-0.5 [facility] Comment on above: Performed By: #### C BC #### [facility] [address] [place] [address] Dr. Rocio Hernandez LYMPH # 1.3 103/ul Normal 1.2-3.8 [facility] Comment on above: Performed By: #### C BC #### [facility] [address] [place] [address] Dr. Rocio Hernandez Lymphocytes/100 WBC (Bld) 21.9 % Normal 20.5-60.0 [facility] Comment on above: Performed By: #### C BC #### [facility] [address] [place] [address] Dr. Rocio Hernandez MANUAL DIFF REQ NO Normal [place] Comment on above: Performed By: #### C BC #### [facility] [address] [place] [address] Dr. Rocio Hernandez MCH (RBC) [Entitic mass] 28.4 pg Normal 26.7-34.0 [facility] Comment on above: Performed By: #### C BC #### [facility] [address] [place] [address] Dr. Rocio Hernandez MCHC (RBC) [Mass/Vol] 33.0 g/dL Normal 29.9-35.2 [facility] Comment on above: Performed By: #### C BC #### [facility] [address] [place] [address] Dr. Rocio Hernandez MCV (RBC) [Entitic vol] 86.0 fL Normal 81.0-99.0 [facility] Comment on above: Performed By: #### C BC #### [facility] [address] [place] [address] Dr. Rocio Hernandez MONO # 0.6 103/ul Normal 0.3-0.8 [facility] Comment on above: Performed By: #### C BC #### [facility] [address] [place] [address] Dr. Rocio Hernandez Monocytes/100 WBC (Bld) 10.3 % Normal 1.7-12.0 [facility] Comment on above: Performed By: #### C BC #### [facility] [address] [place] [address] Dr. Rocio Hernandez NEUT # 3.8 103/ul Normal 1.4-6.5 [facility] Comment on above: Performed By: #### C BC #### [facility] [address] [address] [address] Rocio Hernandez Neutrophils/100 WBC (Bld) 63.7 % Normal 43.0-75.0 [facility] Comment on above: Performed By: #### C BC #### [facility] [address] [address] [address] Rocio Hernandez Platelet mean volume (Bld) [Entitic vol] 9.0 fL Critically low 9.5-13.5 [facility] Comment on above: Performed By: #### C BC #### [facility] [address] [place] [address] Dr. Rocio Hernandez PLT 360 103/ul Normal 150-450 [facility] Comment on above: Performed By: #### C BC #### [facility] [address] [address] [address] Rocio Hernandez RBC 4.79 106/ul Normal 4.20-5.40 [facility] Comment on above: Performed By: #### C BC #### [facility] [address] [address] [address] Rocio Hernandez WBC 5.9 103/ul Normal 4.0-11.0 [facility] Comment on above: Performed By: #### C BC #### [facility] [address] [address] [address] Rocio Hernandez FREE T3on 01-12-2023 FREE T3 2.31 pg/mlL Normal 2.18-3.98 [facility] Comment on above: Performed By: #### T SH, CMP, LIPID, FT3 ####[facility] [address] [address]Dr. Rocio Hernandez FREE T4on 01-12-2023 Free T4 [Mass/Vol] 1.21 ng/dL Normal 0.76-1.46 [facility] Comment on above: Performed By: #### B 12FOL, FT4 #### [facility] [address] [address] [address] Rocio Hernandez GLYCOHEMOGLOBIN A1Con 2022 ADA RECOMMENDATION SEE BELOW Normal [facility] Comment on above: Result Comment: ADA RECOMMENDED LIMIT 4.0 - 6.0 ADA THERAPEUTIC TARGET < 7.0 ACTION SUGGESTED > 7.0 Performed By: #### A 1C ####[facility] [address] [address]Dr. Rocio Hernandez Glucose [Mass/Vol] 123 mg/dL Normal [facility] Comment on above: Performed By: #### A 1C ####[facility] [address] [address]Dr. Rocio Hernandez HbA1c (Bld) [Mass fraction] 5.9 % Normal 4.5-6.2 [facility] Comment on above: Performed By: #### A 1C ####[facility] [address] [address]Dr. Rocio Hernandez LIPID PROFILEon 01-12-2023 CHOL-HDL RATIO NORM SEE BELOW Normal [facility] Comment on above: Result Comment: 3.3 - 4.4 LOW RISK 4.4 - 7.1 AVERAGE RISK 7.1 - 11.0 MODERATE RISK >11.0 HIGH RISK Performed By: #### T SH, CMP, LIPID, FT3 #### [facility] [address] [address] [address] Rocio Hernandez Cholesterol [Mass/Vol] 203 mg/dL Critically high <=200 [facility] Comment on above: Performed By: #### T SH, CMP, LIPID, FT3 #### [facility] [address] [address] [address] Rocio Hernandez Cholesterol in HDL [Mass/Vol] 89 mg/dL Critically high 40-60 [facility] Comment on above: Performed By: #### T SH, CMP, LIPID, FT3 #### [facility] [address] [address] [address] Rocio Hernandez Cholesterol in LDL [Mass/Vol] 87.8 mg/dL Normal [facility] Comment on above: Performed By: #### T SH, CMP, LIPID, FT3 #### [facility] [address] [address] [address] Rocio Hernandez Cholesterol.total/C holesterol in HDL [Mass ratio] 2.3 {ratio} Normal [facility] Comment on above: Performed By: #### T SH, CMP, LIPID, FT3 #### [facility] [address] [address] [address] Rocio Hernandez HDL NORMAL > or = 60 mg/dl - LO W CARDIOVASCULAR RISK <40 mg/dl - HIGH CARDIOVASCULAR RISK Normal [facility] Comment on above: Performed By: #### T SH, CMP, LIPID, FT3 #### [facility] [address] [address] [address] Rocio Hernandez LDL CALC NORMAL SEE BELOW Normal [place] Comment on above: Result Comment: <100 mg/dl OPTIMAL 100 - 129 mg/dl NEAR OR ABOVE OPTIMAL 130 - 159 mg/dl BORDERLINE HIGH 160 - 189 mg/dl HIGH >190 mg/dl VERY HIGH Performed By: #### T SH, CMP, LIPID, FT3 #### [facility] [address] [address] [address] Rocio Hernandez Triglyceride [Mass/Vol] 131 mg/dL Normal <=150 [facility] Comment on above: Performed By: #### T SH, CMP, LIPID, FT3 #### [facility] [address] [address] [address] Rocio Hernandez VLDL CALC 26.2 mg/dL Normal [facility] Comment on above: Performed By: #### T SH, CMP, LIPID, FT3 #### [facility] [address] [address] [address] Rocio Hernandez MICROALB CREAT RATIO RANDOMo n 01-12-2023 mALB <1.3 Normal <=30.0 [facility] Comment on above: Performed By: #### M CRR ####[facility] [address] [address]Dr[address] Rocio Hernandez MALB CR RATIO 13.6 mg/g Normal 0.0-29.9 [facility] Comment on above: Performed By: #### M CRR ####[facility] [address] [place], [place] [address]HkClem Hernandez MALB CR RATIO RANGE SEE BELOW Normal [facility] Comment on above: Result Comment: NO M ICROALBUMINURIA 0-29 MG/G CLINICAL MICROALBUMINURIA 30-300 MG/G MACROALBUMINURIA >300 MG/G Performed By: #### M CRR ####[facility] [address] [id number] Hernandez URINE CREAT 95.84 mg/dL Normal 20.00-300.00 [facility] Comment on above: Performed By: #### M CRR ####[facility] [address] [id number] Hernandez PROF 14(COMP METB)on 023 Albumin [Mass/Vol] 3.8 g/dL Normal 3.4-5.0 [facility] Comment on above: Performed By: #### T SH, CMP, LIPID, FT3 #### [facility] [address] [address] [address] Rocio Hernandez Albumin/Globulin [Mass ratio] 0.9 {ratio} Normal [facility] Comment on above: Performed By: #### T SH, CMP, LIPID, FT3 #### [facility] [address] [address] [address] Rocio Hernandez ALP [Catalytic activity/Vol] 111 U/L Normal 46-116 [facility] Comment on above: Performed By: #### T SH, CMP, LIPID, FT3 #### [facility] [address] [address] [address] Rocio Hernandez ALT [Catalytic activity/Vol] 42 U/L Normal 14-59 [facility] Comment on above: Performed By: #### T SH, CMP, LIPID, FT3 #### [facility] [address] [address] [address] Rocio Hernandez Anion gap [Moles/Vol] 10.8 mmol/L Normal [facility] Comment on above: Performed By: #### T SH, CMP, LIPID, FT3 #### [facility] [address] [address] [address] Rocio Hernandez AST [Catalytic activity/Vol] 24 U/L Normal 15-37 [facility] Comment on above: Performed By: #### T SH, CMP, LIPID, FT3 #### [facility] [address] [address] [address] Rocio Hernandez Bilirubin [Mass/Vol] 0.4 mg/dL Normal 0.2-1.0 [facility] Comment on above: Performed By: #### T SH, CMP, LIPID, FT3 #### [facility] [address] [place] [address] Dr. Rocio Hernandez Calcium [Mass/Vol] 9.6 mg/dL Normal 8.5-10.1 [facility] Comment on above: Performed By: #### T SH, CMP, LIPID, FT3 #### [facility] [address] [place] [address] Dr. Rocio Hernandez Chloride [Moles/Vol] 93 mmol/L Critically low 98-107 [facility] Comment on above: Performed By: #### T SH, CMP, LIPID, FT3 #### [facility] [address] [place] [address] Dr. Rocio Hernandez CO2 [Moles/Vol] 31.2 mmol/L Normal 21.0-32.0 [facility] Comment on above: Performed By: #### T SH, CMP, LIPID, FT3 #### [facility] [address] [place] [address] Dr. Rocio Hernandez Creatinine [Mass/Vol] 1.02 mg/dL Normal 0.55-1.02 [facility] Comment on above: Performed By: #### T SH, CMP, LIPID, FT3 #### [facility] [address] [place] [address] Dr. Rocio Hernandez EGFR-AF BULGARIAN >60 Normal >=60 [facility] Comment on above: Performed By: #### T SH, CMP, LIPID, FT3 #### [facility] [address] [place] [address] Dr. Rocio Hernandez EGFR-NON AF BULGARIAN 55 mL/min/1.73m2 Critically low >=60 [facility] Comment on above: Performed By: #### T SH, CMP, LIPID, FT3 #### [facility] [address] [address] [address] Rocio Hernadnez Globulin (S) [Mass/Vol] 4.4 g/dL Normal [facility] Comment on above: Performed By: #### T SH, CMP, LIPID, FT3 #### [facility] [address] [address] [address] Rocio Hernandez Glucose [Mass/Vol] 102 mg/dL Normal 74-106 [facility] Comment on above: Performed By: #### T SH, CMP, LIPID, FT3 #### [facility] [address] [place] [address] Dr. Rocio Hernandez Potassium [Moles/Vol] 4.0 mmol/L Normal 3.5-5.1 [facility] Comment on above: Performed By: #### T SH, CMP, LIPID, FT3 #### [facility] [address] [place] [address] Dr. Rocio Hernandez Protein [Mass/Vol] 8.2 g/dL Normal 6.4-8.2 [facility] Comment on above: Performed By: #### T SH, CMP, LIPID, FT3 #### [facility] [address] [place] [address] Dr. Rocio Hernandez Sodium [Moles/Vol] 131 mmol/L Critically low 136-145 Th [facility] Comment on above: Performed By: #### T SH, CMP, LIPID, FT3 #### [facility] [address] [place] [address] Dr. Rocio Hernandez Urea nitrogen [Mass/Vol] 6.0 mg/dL Critically low 7.0-18.0 [facility] Comment on above: Performed By: #### T SH, CMP, LIPID, FT3 #### [facility] [address] [place] [address] Dr. Rocio Hernandez Urea nitrogen/Creatinine [Mass ratio] 5.9 mg/mg Normal [facility] Comment on above: Performed By: #### T SH, CMP, LIPID, FT3 #### [facility] [address] [address] [address] Rocio Hernandez TSHon 01-12-2023 TSH 5.647 uIU/mL Critically high 0.358-3.740 [facility] Comment on above: Performed By: #### T SH, CMP, LIPID, FT3 #### [facility] [address] [address] [address] Rocio Hernandez VIT B12 AND FOLATEon 023 Cobalamin (Vitamin B12) [Mass/Vol] 1189.0 pg/mL Critically high 193.0-986.0 [facility] Comment on above: Performed By: #### B 12FOL, FT4 #### [facility] [address] [address] [address] Rocio Hernandez FOLATE 27.30 ng/mL Normal 8.60-58.90 [facility] Comment on above: Performed By: #### B 12FOL, FT4 #### [facility] [address] [address] [address] Rocio Hernandez MG MAMM SCREEN 3D TANIA CADon 12-19-2022 MG MAMM SCREEN 3D TANIA CAD Patient: MADAN PERRY Exam Date: 12/19/2022 : 1960 Gender:F Ordering : DR [place] D.O. Admission #: [id number] Family : Order #: [id number] CLICK HERE TO VIEW EXAM RADIOLOGY REPORT [...] ovarian cancer at age 54. LOCATION: [facility] BREAST COMPOSITION: Scattered areas fibroglandular density. [...] Flores M.D. on 12/19/2022 at 11:19 Normal [facility] XR DEXA BONE DENSITYon 12-19 [...] by: LIZ FLORES Date: 2022-12-19 10:01 Normal [facility] FREE T3on 03-22-2022 FREE T3 2.43 pg/mlL Normal 2.18-3.98 [facility] Comment on above: Performed By: #### B MP, FT3, TSH ####[facility] [address] [place], [place] [address]Fa. Rocio Hernandez FREE T4on 03-22-2022 Free T4 [Mass/Vol] 1.43 ng/dL Normal 0.76-1.46 [facility] Comment on above: Performed By: #### F T4 ####[facility] [address] [address]Dr. Rocio Hernandez PROF CHEM 8 (BAS METB)on Anion gap [Moles/Vol] 10.2 mmol/L Normal [facility] Comment on above: Performed By: #### B MP, FT3, TSH ####[facility] [address] [address]Dr. Rocio Hernandez Calcium [Mass/Vol] 8.8 mg/dL Normal 8.5-10.1 [facility] Comment on above: Performed By: #### B MP, FT3, TSH ####[facility] [address] [place], [place] [address]Dr. Rocio Hernandez Chloride [Moles/Vol] 104 mmol/L Normal 98-107 [facility] Comment on above: Performed By: #### B MP, FT3, TSH ####[facility] [address] [place], [place] [address]Dr. Rocio Hernandez CO2 [Moles/Vol] 31.7 mmol/L Normal 21.0-32.0 [facility] Comment on above: Performed By: #### B MP, FT3, TSH ####[facility] [address] [place], [place] [address]Dr. Rocio Hernandez Creatinine [Mass/Vol] 0.96 mg/dL Normal 0.55-1.02 [facility] Comment on above: Performed By: #### B MP, FT3, TSH ####[facility] [address] [place], [place] [address]Dr. Rocio Hernandez EGFR-AF BULGARIAN >60 Normal >=60 [facility] Comment on above: Performed By: #### B MP, FT3, TSH ####[facility] [address] [place], [place] [address]Dr. Rocio Hernandez EGFR-NON AF BULGARIAN 59 mL/min/1.73m2 Critically low >=60 [facility] Comment on above: Performed By: #### B MP, FT3, TSH ####[facility] [address] [address]Dr. Rocio Hernandez Glucose [Mass/Vol] 110 mg/dL Critically high 74-106 [facility] Comment on above: Performed By: #### B MP, FT3, TSH ####[facility] [address] [address]Dr. Rocio Hernandez Potassium [Moles/Vol] 2.9 mmol/L Critically low 3.5-5.1 [facility] Comment on above: Result Comment: TEST REPEATED CRITICAL VALUE VERIFIED Performed By: #### B MP, FT3, TSH ####[facility] [address] [address]Dr. Rocio Hernandez Sodium [Moles/Vol] 141 mmol/L Normal 136-145 [facility] Comment on above: Performed By: #### B MP, FT3, TSH ####[facility] [address] [address]Dr. Rocio Hernandez Urea nitrogen [Mass/Vol] 12.0 mg/dL Normal 7.0-18.0 [facility] Comment on above: Performed By: #### B MP, FT3, TSH ####[facility] [address] [address]Dr. Rocio Hernandez Urea nitrogen/Creatinine [Mass ratio] 12.5 mg/mg Normal [facility] Comment on above: Performed By: #### B MP, FT3, TSH ####[facility] [address] [address]Dr. Rocio Hernandez TSHon 03-22-2022 TSH 0.137 uIU/mL Critically low 0.358-3.740 [facility] Comment on above: Performed By: #### B MP, FT3, TSH ####[facility] [address] [address]Dr. Rocio Hernandez Patient Letter FTon 2020 Patient Letter FT (Inserted Image. Wilda ble to display) May 26, 2021 MADAN PERRY [address] [place] [address] MADAN PERRY 1960 Dear Madan, This is a SECOND ATTEMPT to remind you that you are due for an appointment with [facility]. Please contact our office at [phone] to schedule an appointment at your earliest convenience. Thank you, [facility] Reminderson 05-26-2021 Reminders - From: Jane Onofre To: GINA - Reminders/Recalls; Sent: 01/18/2021 12:33:31 EDT Show up: 04/25/2021 12:33:00 EDT Subject: Ambulatory Reminder Due Date/Time: 06/09/2021 12:33:00 EDT Reminder/Recall sara peace 5 year colon 06/09/2021 first recall letter second rcall letter Normal [facility] Patient Letter FTMCon 2020 Patient Letter FT (Inserted Image. Wilda ble to display) May 05, 2021 MADAN PERRY [address] [place] [address] MADAN PERRY 1960 Dear Madan, This is a reminder that you are due for an appointment with [facility]. Please contact our office at [phone] to schedule an appointment at your earliest convenience. Thank you, [facility] Vital Signs Date Time Vital Sign Value Performing Clinician Facility 06-27-2024 12:50-0400 Body height 161.29 cm [facility] 06-27-2024 12:50-0400 Body mass index (BMI) [Ratio] 27 kg/m2 [facility] 06-27-2024 12:50-0400 Body weight 70.3 kg [facility] 05-28-2024 13:040 Body height 161.29 cm [place] Work Phone: [facility] 05-28-2024 13:19-040 Body mass index (BMI) [Ratio] 26.5 kg/m2 [place] Work Phone: [facility] 05-28-2024 13:19-0400 Body weight 69.11 kg DO [place] Work Phone: [facility] 05-09-2022 16:35-0400 Body height 161.29 cm Adilia Rosa M Other [facility] Other 05-09-2022 16:35-0400 Body mass index (BMI) [Ratio] 25.63 kg/m2 Adilia Rosa M Other [facility] Other 05-09-2022 16:35-0400 Body temperature 97.8 [degF] Adilia Mederos Other [facility] Other 05-09-2022 16:35-0400 Body weight 66.68 kg Adilia Rosa M Other [facility] Other 05-09-2022 16:35-0400 Diastolic blood pressure 79 mm[Hg] Adilia Rosa M Other [facility] Other 05-09-2022 16:35-0400 Respiratory rate 18 /min Adilia Rosa M Other [facility] Other 05-09-2022 16:35-0400 SaO2% (BldA) [Mass fraction] 98 % Adilia Rosa M Other [facility] Other 05-09-2022 16:35-0400 Systolic blood pressure 136 mm[Hg] Adilia Mederos Other [facility] Other 07-21-2021 16:05-0400 Body height 161.29 cm Lilian Ferreira Other [facility] Other 07-21-2021 16:05-0400 Body mass index (BMI) [Ratio] 26.5 kg/m2 Lilian Ferreira Other [facility] Other 07-21-2021 16:05-0400 Body temperature 96.2 [degF] Lilian Ferreira Other [facility] Other 07-21-2021 16:05-0400 Body weight 68.95 kg Lilian Ferreira Other [facility] Other 07-21-2021 16:05-0400 Diastolic blood pressure 95 mm[Hg] Lilian Ferreira Other [facility] Other 07-21-2021 16:05-0400 Respiratory rate 18 /min Lilian Ferreira Other [facility] Other 07-21-2021 16:05-0400 SaO2% (BldA) [Mass fraction] 99 % Lilian Ferreira Other [facility] Other 07-21-2021 16:05-0400 Systolic blood pressure 132 mm[Hg] Lilian Ferreira Other [facility] Other 06-22-2021 14:20-0400 Body height 161.29 cm Adilia Mederos Other [facility] Other 06-22-2021 14:20-0400 Body mass index (BMI) [Ratio] 25.98 kg/m2 Adilia Rosa M Other [facility] Other 06-22-2021 14:20-0400 Body temperature 96.4 [degF] Adilia Rosa M Other [facility] Other 06-22-2021 14:20-0400 Body weight 67.59 kg Adilia Mederos Other [facility] Other 06-22-2021 14:20-0400 Diastolic blood pressure Adilia Mederos Other [facility] Other 06-22-2021 14:20-0400 Respiratory rate 18 /min Adilia Mederos Other [facility] Other 06-22-2021 14:20-0400 SaO2% (BldA) [Mass fraction] 98 % Adilia Mederos Other [facility] Other 06-22-2021 14:20-0400 Systolic blood pressure 111 mm[Hg] Adilia Mederos Other [facility] Other Encounters Encounter Date Encounter Type Care Provider Facility Start: 06-27-2024 End: 06-27-2024 ambulatory [facility] Work Phone: Start: 06-27-2024 End: 06-27-2024 Patient encounter procedure [facility] Work Phone: Start: 06-11-2024 End: 06-11-2024 ambulatory IVY Pal FLORENTINO Not Available Start: 05-28-2024 End: 05-28-2024 ambulatory [place] Work Phone: [facility] Work Phone: Start: 05-28-2024 End: 05-28-2024 Patient encounter procedure DO [place] Work Phone: [facility] Work Phone: Start: 05-20-2024 End: 05-20-2024 ambulatory Meet Harp MD Facility: [facility] Start: 05-13-2024 End: 05-13-2024 ambulatory Meet Harp MD Facility: [facility] Start: 03-14-2024 End: 03-14-2024 ambulatory [facility] Start: 02-28-2024 End: 02-28-2024 ambulatory DO Tank Pal Mattie Work Phone: [facility] Work Phone: Start: 02-28-2024 End: 02-28-2024 Departed Referred DO Tank Lopezring Work Phone: [facility]-LAB [facility] Start: 02-20-2024 End: 02-20-2024 ambulatory [facility] Start: 01-15-2024 End: 01-15-2024 ambulatory Meet Harp MD Facility: [facility] Start: 12-04-2023 End: 12-04-2023 [facility] Start: 11-06-2023 End: 11-06-2023 ambulatory Meet Harp MD Facility: [facility] Start: 10-09-2023 End: 10-09-2023 [facility]ulatory [facility] Start: 08-25-2023 End: 08-25-2023 ambulatory ALIZA AGUILAR Facility:[facility] Start: 08-25-2023 End: 08-25-2023 Office outpatient visit 15 minutes Aliza Aguilar MD Work Phone: [facility] [address] [place] [address] Ctr Orthopedics Comment on above: Hand arthritis (Prim maurisio Dx) Start: 08-21-2023 End: 08-21-2023 ambulatory Andsilvana Harp MD [facility] Start: 08-19-2023 Letter encounter Yesy Covarrubias OT Work Phone: [facility] Start: 07-31-2023 End: 07-31-2023 ambulatory Meet Harp MD Facility:[facility] Start: 07-24-2023 End: 07-24-2023 ambulatory Meet Harp MD Facility:[facility] Start: 07-20-2023 End: 07-20-2023 Patient encounter procedure DO Tank Lake Work Phone: [facility]-MRI [address] Work Phone: Start: 07-20-2023 End: 07-20-2023 ambulatory DO Tank Lake Work Phone: [facility] Work Phone: Start: 07-10-2023 End: 07-10-2023 ambulatory Meet Harp MD Facility:[facility] Start: 06-16-2023 End: 06-17-2023 ambulatory UNKNOWN PROVIDER Facility:[facility] Start: 06-16-2023 End: 06-16-2023 Office outpatient visit 25 minutes Aliza Aguilar MD Work Phone: [address] Surg Ctr Orthopedics Comment on above: Left hand pain (Prim maurisio Dx) Start: 06-16-2023 End: 06-16-2023 Subsequent hospital visit by physician [facility] Op Op X-Ray 1 Work Phone: [address] Ctr Diag Radiology Comment on above: Left hand pain Start: 02-07-2023 End: 02-08-[address] [place] Facility:[facility] Start: 01-27-2023 End: 01-28-[address] [place] Facility:[facility] Start: 01-23-2023 End: 02-22-2023 ambulatory SHAIKH Eduardo ROSS Facility:[facility] Start: 01-16-2023 Encounter for genera l adult medical examination without abnormal findings DR [place] [facility] Start: 01-12-2023 End: 01-13-2023 ambulatory [...] 05-09-2022 End: 05-09-2022 ambulatory Adilia Mederos Other [place] [facility] Other Start: 05-09-2022 Office outpatient vi sit [...] Office outpatient vi sit 15 minutes Adilia Cardenasault [facility] Procedures Date Procedure Procedure [...] Plasma Cholesterol [facility] Start: 05-28-2024 Patient referral [facility] Work Phone: Start: 08-25-2023 End: 08-25-2023 Patient encounter procedure 08/25/2023 11:30 AM EST Office Visit [address] Ctr Orthopedics [address] [place] [address] Aliza Aguilar MD [address] [place] [phone] Surg Ctr Orthopedics Start: 07-20-2023 XR pre/post mri xray XR pre/post mri xray [facility] Start: 07-20-2023 [facility] Start: 07-20-2023 MR Wrist - left WO contrast [facility] Start: 07-20-2023 MRI of left wrist MR wrist LT wo con [facility] Start: 07-20-2023 MR Hand - left WO contrast [facility] Start: 07-20-2023 MRI of left hand MR hand LT wo con F [facility] Start: 06-25-2023 Influenza vaccination Influenza Vacc ine (#1) [facility] Start: 06-16-2023 End: 06-16-2024 MR Wrist - left WO contrast MR WRIST LEFT W/O Imaging Routine Left hand pain Expected: 06/16/2023, Expires: 06/16/2024 [facility] Work [facility]: Comment on above: Expected: [...] wellness visit Annual W ellness [facility] ([id number]) [facility] Start: 2009 Measurement of occul [...] [facility] Start: 1974 HIV screening HIV Test [facility] Start: 1960 COVID-19 Vaccine ( formulation) [facility] Start: 1960 Screening for malign ant neoplasm of colon Colonoscopy [facility] Patient referral [facility] Work Phone: Immunizations Immunization Date Immunization Notes Care Provider [facility] 08-11-2023 influenza, injectabl e, quadrivalent, preservative free Aliza Aguilar MD Work Phone: [facility] 08-11-2023 Respiratory syncytia l virus (RSV), vaccine, bivalent, protein subunit RSV prefusion F, diluent reconstituted, 0.5 mL, preservative free (VCN=878) Aliza Aguilar MD Work Phone: [facility] 06-18-2022 influenza, injectabl e, quadrivalent, preservative free Aliza Aguilar MD Work Phone: [facility] 06-18-2022 influenza virus vacc ine, unspecified formulation Aliza Aguilar MD Work Phone: [facility] 02-05-2022 Pfizer Monovalent (1 2+ yrs) SARS-COV-2 (COVID-19) vaccine, mRNA, spike protein, LNP, pres. free, 30 mcg/0.3mL dose, betito-sucrose (ZEF=936) Aliza Aguilar MD Work Phone: [facility] 08-11-2021 influenza, injectabl e, quadrivalent, preservative free Yesy Covarrubias OT Work Phone: [facility] 08-11-2021 influenza virus vacc ine, unspecified formulation Yesy Marci OT Work Phone: [facility] 07-24-2020 zoster vaccine recombinant K dengryn Marci OT Work Phone: [facility] 07-11-2020 Influenza, injectabl e, Madin Success Canine Kidney, preservative free, quadrivalent Yesy Marci OT Work Phone: [facility] 04-18-2020 zoster vaccine recombinant K athryn Marci OT Work Phone: [facility] 08-28-2019 Influenza, injectabl e, Madin Success Canine Kidney, preservative free, quadrivalent Yesy Marci OT Work Phone: [facility] 07-01-2019 influenza, high dose seasonal, preservative-free Yesy Marci OT Work Phone: [facility] 06-25-2019 pneumococcal polysac charide vaccine, 23 valent Yesy Marci OT Work Phone: [facility] 07-06-2018 influenza, injectabl e, quadrivalent, contains preservative Yesy Marci OT Work Phone: [facility] 06-04-2018 tetanus toxoid, redu karen diphtheria toxoid, and acellular pertussis vaccine, adsorbed Yesy Marci OT Work Phone: [facility] 08-19-2017 influenza, injectabl e, quadrivalent, preservative free Yesy Marci OT Work Phone: [facility] 08-09-2017 influenza, injectabl e, quadrivalent, contains preservative Yesy Marci OT Work Phone: [facility] 08-01-2016 influenza, injectabl e, quadrivalent, preservative free Yesy Marci OT Work Phone: [facility] 07-11-2015 influenza, injectabl e, madin zakia canine kidney, preservative free Yesy Marci OT Work Phone: [facility] 07-11-2015 pneumococcal conjuga te vaccine, 13 valent Yesy Marci OT Work Phone: [facility] 08-13-2009 novel influenza-H1N1 -09, preservative-free, injectable Yesy Marci OT Work Phone: [facility] 07-17-2009 influenza virus vacc ine, unspecified formulation Yesy Marci OT Work Phone: [facility] 08-15-2008 influenza virus vacc ine, unspecified formulation Yesy Marci OT Work Phone: [facility] Payers Date Payer Category Payer Self-pay [id number] 2018 Unknown [id number] 2013 Medicare [id number] 1.13.56.2.7.3.67 [id number] 1959 Blue Cross Blue Shield [id number] 2.16.840.1.374191.19 1959 Medicare [id number] 2.16.840.1.943456.19 1959 Unknown [id number] 2.16.840.1.994451.3.579.2.593 1959 Unknown [id number] 2.16.840.1.701557.3.579.2.593 1959 Unknown [id number] 2.16.840.1.344598.3.579.2.593 1959 Unknown [id number] 2.16.840.1.084357.3.579.2.593 1959 Unknown [id number] 2.16.840.1.218344.3.579.2.593 1959 Unknown [id number] 2.16.840.1.604351.3.579.2.593 1959 Unknown [id number] 2.16.840.1.209567.3.579.2.593 1959 Unknown [id number] 2.16.840.1.478216.3.579.2.593 1959 Unknown [id number] 2.16.840.1.917945.3.579.2.593 1959 Unknown [id number] 2.16.840.1.575030.3.579.2.593 1959 Unknown [id number] 2.16.840.1.629973.3.579.2.593 1959 Unknown [id number] 2.16.840.1.865032.3.579.2.593 1959 Unknown [id number] 2.16.840.1.722621.3.579.2.593 1959 Unknown [id number] 2.16.840.1.832573.3.579.2.593 1959 Unknown [id number] 2.16.840.1.382816.3.579.2.593 1959 Unknown [id number] 2.16.840.1.710800.3.579.2.593 1959 Unknown [id number] 2.16.840.1.335746.3.579.2.593 1959 Unknown [id number] 2.16.840.1.700992.3.579.2.593 1959 Unknown [id number] 2.16.840.1.638497.3.579.2.593 1959 Unknown [id number] 2.16.840.1.545895.3.579.2.593 1959 Unknown [id number] 2.16.840.1.918375.3.579.2.732 1959 Unknown [id number] 2.16.840.1.137393.3.579.2.732 1959 Unknown [id number] 2.16.840.1.276692.3.579.2.732 1959 Unknown [id number] 2.16.840.1.255652.3.579.2.1286 1959 Unknown [id number] 2.16.840.1.571870.3.579.2.1286 1959 Unknown [id number] 2.16.840.1.065010.3.579.2.196 1959 Unknown [id number] 2.16.840.1.626982.3.579.2.196 1959 Unknown [id number] 2.16.840.1.567171.3.579.2.196 1959 Unknown [id number] 2.16.840.1.428753.3.579.2.196 1959 Unknown [id number] 2.16.840.1.101911.3.579.2. 1959 Unknown [id number] 2.16.840.1.139933.3.579.2. 1959 Unknown [id number] 2.16.840.1.758409.3.579.2. 1959 Unknown [id number] 2.16.840.1.747744.3.579.2. 1959 Unknown [id number] 2.16.840.1.068046.3.579.2. 1959 Unknown [id number] 2.16.840.1.776130.3.579.2. 1959 Unknown [id number] 2.16.840.1.130181.3.579.2.1259 Medicare Medicare Nonpatient [id number] Unknown [id number] 2.16.840.1.532225.3.579.2.531 Unknown [id number] 2.16840.1.263081.3.579.2.531 Social History Date Type Detail Facility Unknown if ever smoked [facility] Other Sex Assigned At [facility] Other Start: 05-31-2019 End: 06-27-2024 Tobacco smoking status NEIS Ex-smoker [facility] tobacco use [facility] Start: 05-31-2019 Tobacco use and exposure Smokeless tobacco non-user [facility] Start: 04-07-2020 Alcohol intake Lifetime non-d han (finding) [facility] Start: 07-09-2019 History SDOH Alcohol Frequency 1 [facility] Start: 1960 Sex Assigned At Not on file [facility] Start: 1960 Sex Assigned At Female F [facility] Medical Equipment Procedure Code Equipment Code Equipment Origin al Text Equipment Identifier Dates [place] Suture Mi karen Corkscrew [id number] - [id number] Start: 07-22-2019 Clinical Notes 06-22-2021 to [...] pain Follow up after MRI done at [facility]. Patient Office Note or Post OP Note Name:Madan M Dionna Date: 08/25/2023 CC: left wrist pain at [facility] area No chief complaint on [...] this patient. Aliza Aguilar MD Injection Procedure.formerly [facility] 08/25/2023 [id number] Madan Perry The patient requested an injection [...] a dressing applied. documented in this encounter [facility] 06-16-2023 Note Addended by: ALIZA AGUILAR on: 06/16/2023 11:34 AM Modules accepted: Orders [facility] 06-16-2023 Miscellaneous Notes Addended by: ALIZA AGUILAR on: 06/16/2023 11:34 AM Modules accepted: Orders documented in this encounter [facility] 06-16-2023 History of Presen t illness [...] continues on coumadin. documented in this encounter [facility] 05-09-2022 Evaluation note Encounter Date Diagnosis [...] Xray that was ordered outpatient by PCP [facility] Other 08-10-2022 NotePROCEDURE: XR FOOT RT MIN 3 VIEWS COMPARISON: None. HISTORY: Pain in right foot FINDINGS: BONES:No fracture, acute abnormality, or significant arthropathy. Mild enthesopathic spurring of the calcaneus at the Achilles insertion SOFT TISSUES:Negative. No visible soft tissue swelling. EFFUSION:None visible. OTHER: Negative. IMPRESSION: No acute abnormality Electronically authenticated by: MARTINEZ HARVEY Date: 2022-05-04 16:22[facility]10-27-2021 Evaluation note* Encounter Date Diagnosis Assessment Notes Treatment Notes Treatment Clinical Notes Jun, Swelling of left elbow (ICD-10 - M25.422) Jun, Other Patient refe rred to the ER due to swelling, ecchymosis, pain of her left elbow with no known injury. It is felt the patient needs blood work to evaluate [facility] Other 09-28-2021 Evaluation note* Encounter Date Diagnosis Assessment Notes Treatment Notes Treatment Clinical Notes May, Bee sting, undetermined intent, initial encounter (ICD-10 - T63.444A) May continue Xyzal and Benadryl as directed. [facility] Other Evaluation note* Diagnosis Left hand pain- Primary Pain in limb Left hand pain Pain in limb [facility] Diagnosis Left hand pain Pain in limb [facility] Work Phone: Evaluation note* Diagnosis Hand arthritis- Primary Unspecified arthropathy, hand [facility]* Diagnosis Onset Date Resolution Status Thoracic back pain acute [facility] Work Phone: History general Narrative - Reported* Type Description Date [...] second t roseann Hospitalization History see above [facility] X[facility] Nutrition Other Hospital Discharge instructionsAmbulatory Orders* Referral to Speech/PT/OT (PT/OT/SP) Location: None Selected [facility] Work Phone: Summary Purpose Family History [...] Diagnoses Left hand pain Aliza Aguilar MD [facility] [email or web address] [address] Referral ID Status Reason Start Date Expiration Date Visits Requested Visits Authorized [id number] Authorized Patient Preference 06/16/2023 06/16/2024 3 3 Comments Near home, [place], [place] Specialty Diagnoses / Procedures Referred By Contac t Referred To Contact Radiology Diagnoses Left hand pain Procedures MR WRIST LEFT W/O Aliza Aguilar MD [address] [place] [address] [facility] [address] [place] [id number] Referral ID Status Reason Start Date Expiration Date V isits Requested Visits Authorized [id number] Authorized 06/16/2023 06/15/2024 1 1 Specialty Diagnoses / Procedures Referred By Contac t Referred To Contact Radiology Diagnoses Left hand pain Procedures XR HAND LEFT 3 VIEWS [facility] [address] [place] [address] [facility] [address] [place] [id number] Referral ID Status Reason Start Date Expiration Date Visits Re quested Visits Authorized [id number] Closed 06/16/2023 06/15/2024 1 1 Chief Complaint and Reason for Visit Chief Complaint median nerve karel krista Chief Complaint Unknown Chief Complaint Unknown DISC DEGENERATION-THORACIC AREA Chief Complaint DISC DEGENERATION-TH ORACIC AREA review MRI, F/u after PT Reason for Visit Thoracic back pain Additional Source Comments INFORMATION SOURCE (unrecogn ized section and content) DATE CREATED AUTHOR 05/27/2021 [facility] DATE CREATED AUTHOR AUTHOR'S ORGANIZ ATION 03/03/2023 [facility] DATE CREATED AUTHOR AUTHOR'S ORGANIZ ATION 08/28/2023 [facility] DATE CREATED AUTHOR AUTHOR'S ORGANIZ ATION 02/29/2024 [facility] DATE CREATED AUTHOR AUTHOR'S ORGANIZ ATION 03/16/2024 [facility] DATE CREATED AUTHOR AUTHOR'S ORGANIZ ATION 05/24/2024 [facility] DATE CREATED AUTHOR AUTHOR'S ORGANIZ ATION 06/13/2024 [facility] EPIC DATE CREATED AUTHOR AUTHOR'S ORGANIZ ATION 07/19/2024 [facility] REASON FOR VISIT (unrecogniz ed section and content) Reason Comments Hand/finger symptoms Specialty Diagnoses / Procedures Referred By Contac t Referred To Contact Radiology Diagnoses Left hand pain Procedures XR HAND LEFT 3 VIEWS [facility] [address] [place] [address] [facility] [address] [place] [address] [place] [address] Referral ID Status Reason Start Date Expiration Date Visits Re quested Visits Authorized [id number] Closed 06/16/2023 06/15/2024 1 1 Reason Comments Hand/finger symptoms Care Teams (unrecognized sec tion and content) Medical Operations Supervisor Relationship Specialty Start Date End Date Yesy Covarrubias, OT [address] [place] [address] [place] [address] Occupational Therapist Occupational Therapy 06/30/20 Aliza Aguilar MD [address] [place] [address] Physician Orthopaedic Hand Service 06/30/20 Medical Operations Supervisor Relationship Specialty Start Date End Date Yesy Covarrubias OT [address] [place] [address] [place] [address] Occupational Therapist Occupational Therapy 06/30/20 Aliza Aguilar MD [address] [place] [address] Physician Orthopaedic Hand Service 06/30/20 Medical Operations Supervisor Relationship Specialty Start Date End Date Yesy Covarrubias OT [address] [facility] [place] [address] Occupational Therapist Occupational Therapy 06/30/20 Aliza Aguilar MD [address] [place] [address] Physician Orthopaedic Hand Service 06/30/20 Team Status: Active Member Role Status Dates [place] DO Primary Care Provider Active Team Status: Inactive Member Role Status Dates [place] DO Primary Care Provider Active Aliza Aguilar Attending Provider Active Medical Operations Supervisor Relationship Specialty Start Date End Date Yesy Covarrubias OT [address] [place] [address] [place] [address] Occupational Therapist Occupational Therapy 06/30/20 Aliza Aguilar MD [address] [place] [address] Physician Orthopaedic Hand Service 06/30/20 Medical Operations Supervisor Relationship Specialty Start Date End Date Yesy Covarrubias, OT [address] [place] [address] Occupational Therapist Occupational Therapy 06/30/20 Aliza Aguilar MD [address] [place], [place] Physician Orthopaedic Hand Service 06/30/20 Team Status: [...] May 28, 2024 End: May 28, 2024 Team Status: Inactive Member Role Status Dates [place] DO Primary Care Provider Active Start: June 27, 2024 End: June 27, 2024 Yissel Fishman APRN Attending Provider Active Start: June 27, 2024 End: June 27, 2024 Goals (unrecognized section and content) Goals [...] BE BASED ON THE PRIMARY CLINICAL RECORDS. [facility]. provides no warranty or guarantee of the accuracy or completeness of information in this document.
== END 2024-08-15 09:27 | disposition home or self-care (01) ==
LOC: HEMC 07:42
PROVIDERS: PCP Family Medicine; Visit Provider Internal Medicine Hematology & Oncology
DX: D64.9 Anemia, unspecified (principal); D50.9 Iron deficiency anemia, unspecified; K90.9 Intestinal malabsorption, unspecified; Z87.891 Personal history of nicotine dependence; R53.1 Weakness; R53.83 Other fatigue; Z79.01 Long term (current) use of anticoagulants
CPT/HCPCS: G0463

== ENCOUNTER 2024-08-26 06:00 | Outpatient (RCR) | payer BC, MEDICARE, SELFPAY | END 2024-09-24 09:10 | disposition home or self-care (01) | LOC: MM 06:00 | PROVIDERS: PCP Family Medicine; Visit Provider Internal Medicine | DX: Z51.81 Encounter for therapeutic drug level monitoring (principal); Z79.01 Long term (current) use of anticoagulants | CPT/HCPCS: 85610; G0463 ==

== ENCOUNTER 2024-08-29 15:52 | Outpatient (OUT) | payer BC, MEDICARE, SELFPAY ==
--- NOTE | 2024-08-29 16:02 | XR_ITS ---
The [place] [id number] Patient Name: MADAN PERRY MRN: [id number] date: 1960 Sex: F Assigned Patient Location: [facility] Current Patient Location: Accession/Order Number: [id number] Exam Date: 08/29/2024 16:05 Report Date: 08/30/2024 06:26 At the request of: [place] Procedure: XR foot LT min 3V PROCEDURE: XR foot LT min 3V HISTORY: pain in left foot M79.672 COMPARISON: None. FINDINGS: BONES:Degenerative disease of height at Achilles tendon insertion into the calcaneus. No appreciable calcaneal plantar spur. No fracture, dislocation, or significant degenerative joint disease. SOFT TISSUES:No visible soft tissue swelling. EFFUSION:None visible. OTHER: Negative. XR/XR foot LT min 3V IMPRESSION: 1. No acute bone abnormality or significant degenerative changes. 2. Achilles tendon degenerative enthesophyte. Electronically authenticated by: LIZ HAAS Date: 08/30/2024 06:26
== END 2024-08-29 15:53 | disposition home or self-care (01) ==
LOC: RAD 15:54
PROVIDERS: PCP Family Medicine; Visit Provider Family Medicine
DX: M79.672 Pain in left foot (principal); M76.62 Achilles tendinitis, left leg
CPT/HCPCS: 73630

== ENCOUNTER 2024-09-21 11:09 | Outpatient (OUT) | payer BC, MEDICARE, SELFPAY ==
--- NOTE | 2024-09-21 | XR_ITS ---
The [address] [address] Patient Name: MADAN PRERY MRN: [id number] date: 1960 Sex: F Assigned Patient Location: [facility] Current Patient Location: Accession/Order Number: [id number] Exam Date: 09/21/2024 11:32 Report Date: 09/23/2024 15:15 At the request of: [place] Procedure: XR hand LT 2V EXAMINATION: XR hand LT 2V, , 09/21/2024 11:32 AM EST INDICATION: Pain in left hand M79.642 HISTORY: Ordering Provider Reason for Exam: Pain in left hand M79.642 Technologist Note: Additional: COMPARISON: None. TECHNIQUE: Left hand x-ray: 3 view(s). FINDINGS: No acute fracture. Joint alignment is anatomic. Joint spaces are preserved. Soft tissues are within normal limits. XR/XR hand LT 2V IMPRESSION: No acute fracture or traumatic malalignment. Electronically authenticated by: KATHERINE ARELLANO Date: 09/23/2024 15:15
--- OUTSIDE RECORDS SUMMARY | 2024-09-21 11:13 | XMS_ITS | CCD ---
Author Organization [facility] Care Team Providers Care Sales Enablement Consultant Name Role Phone Adilia Mederos Unavailable Lilian Ferreira Unavailable Yesy Covarrubias OT Unavailable Aliza Aguilar MD Unavailable [phone] JAYA, DR TANK Aguillon Primary Care Unavailable [...] ., DR ORLY Bran Admitting Unavailable PANDYA .RAUHL Consulting Unavailable RAMIREZ ., DR ORLY Bran [...] OT, Yesy Unavailable Aliza Aguilar MD. Unavailable [phone] LakeDO Tank Primary Care Provider [phone] Aliza Aguilar Attending Provider PROVIDER, UNKNOWN Admitting Unavailable PROVIDER, UNKNOWN Attending Unavailable PROVIDER, UNKNOWN Attending Unavailable PROVIDER, UNKNOWN Admitting Unavailable ALIZA AGUILAR. Referring Unavailable PROVIDER, UNKNOWN Admitting Unavailable PROVIDER, UNKNOWN Attending Unavailable Lake, DO Tank Aguillon Primary Care Provider DO Aliza Spencer Attending Provider [phone] Aliza Spencer Admitting Unavailable Aliza Spencer Attending Unavailable Lake, Tank A Primary Care Unavailable SedrickAliza W Admitting Unavailable SedrickAliza Attending Unavailable Lake, Tank A Primary Care Unavailable EBONIE SIMPSON Attending Unavailable LAKE, TNAK A Referring Unavailable LAKE, TANK A Primary [...] Giedraitis MD, Andrius Vytautas Attending Unavailable IVY SAEZ Attending Unavailable Unavailable Primary Care Provider Unavailabl e Allergies Allergy Classification Reported Allergen(s) Allergy Type Date of Onset Reaction(s) Facility (3 sources) Acetaminophen / oxyCODONE Drug Allergy stomach upset [employer] Other (3 sources) Adhesive Tape Propensity to adverse reactions rash [employer] Other (9 sources) Cephalexin; Translations: [CEPHALEXIN] Drug Allergy 12-22-19 06 anaphylaxis, Unknown [facility] (13 sources) Erythromycin; Translations: [ERYTHROMYCIN] Drug Allergy 12-22-19 Other, Unknown [facility] (8 sources) Iodine; Translations: [iodine] Drug Allergy 01-31-20 13 rash [facility] (7 sources) Latex; Translations: [LATEX] Propensity to adverse reactions 12-22-19 [facility] (7 sources) Penicillin G Benzathine; Translations: [penicillin G benzathine] Drug allergy 12-11-19 23 anaphylaxis [facility] (3 sources) Procaine Drug Allergy headaches [facility] Other (2 sources) Cephalexin; Translations: [Keflex] Drug Allergy 01-31-20 13 anaphylaxis [facility] (1 source) Novocain Drug allergy Unknown [facility] Other (11 sources) Acetaminophen; Translations: [ACETAMINOPHEN] Drug Allergy 02-01-20 08 Vomiting, GI intolerance [facility] (10 sources) Acetaminophen / oxyCODONE; Translations: [OXYCODONE-ACETA MINOPHEN] Drug Allergy 12-22-19 06 Vomiting, Nausea And Vomiting, GI intolerance [facility] (7 sources) Acetaminophen / oxyCODONE; Translations: [Percocet] Drug Allergy 06-09-20 16 Vomiting [facility] (6 sources) Acetaminophen / Propoxyphene; Translations: [BALACET] Drug Allergy 12-22-19 06 Other [facility] Work Phone: (6 sources) acetaminophen / propoxyphene; Translations: [PROPOXYPHENE N-APAP] Drug Allergy 02-01-20 08 Other [facility] (9 sources) Ciprofloxacin; Translations: [CIPROFLOXACIN] Drug Allergy 12-22-19 06 Other, Rash, Unknown [facility] (13 sources) Doxycycline; Translations: [DOXYCYCLINE] Drug Allergy 01-24-20 Itching [facility] (6 sources) Penicillin G; Translations: [PENICILLIN G POTASSIUM] Drug Allergy 02-01-20 08 Anaphylactic Shock [facility] (10 sources) Penicillins; Translations: [PENICILLINS] Propensity to adverse reactions to drug 12-22-19 06 Anaphylactic Shock, Anaphylaxis, Unknown [facility] (10 sources) Quinolones (Antibiotic); Translations: [QUINOLONES] Propensity to adverse reactions to drug 12-22-19 06 Respiratory Problems, Other, Rash, Unknown [facility] Work Phone: (6 sources) Sulfonamides (Antibiotic); Translations: [SULFA ANTIBIOTICS] Propensity to adverse reactions to drug 02-01-20 08 Rash [facility] (6 sources) Bandage Tape; Translations: [BANDAGE TAPE] Propensity to adverse reactions 09-03-20 13 Rash [facility] (14 sources) Erythromycin Base; Translations: [ERYTHROMYCIN BASE] Propensity to adverse reactions to drug 01-24-20 20 Other [facility] (10 sources) Iodides; Translations: [IODIDES] Propensity to adverse reactions to drug 10-31-19 14 Hives [facility] (6 sources) Other (Review Comments!); Translations: [OTHER (REVIEW COMMENTS!)] Propensity to adverse reactions to drug 07-22-20 19 Agitation [facility] Work Phone: (1 source) Ciprofloxacin Drug Allergy [facility] (1 source) Iodine (And Iodine Containting Drugs) Drug allergy (disorder) 01-31-20 13 [facility] (1 source) Latex Drug allergy (disorder) 01-31-20 13 [facility] (5 sources) Morphine; Translations: [MORPHINE] Drug Allergy 10-21-19 14 vomiting [facility] (1 source) Penicillins Drug allergy (disorder) 01-31-20 13 [facility] (1 source) Sulfonamides (Antibiotic) Drug allergy (disorder) 01-31-20 13 [facility] (1 source) Darvocet-N 100 Drug allergy (disorder) 01-31-20 13 [facility] (1 source) E.E.S. Drug allergy (disorder) 01-31-20 13 [facility] (4 sources) Adhesive Tape; Translations: [adhesive tape] Allergy to substance 12-11-19 rash [facility] (7 sources) oxyCODONE; Translations: [oxycodone] Drug Allergy 12-11-19 Unknown [facility] (4 sources) Procaine; Translations: [procaine] Drug Allergy 12-11-19 23 headaches [facility] (1 source) Cephalexin Drug Allergy 12-11-19 [facility] (1 source) Doxycycline Drug Allergy 12-11-19 [facility] (1 source) Latex Drug allergy (disorder) 12-11-19 23 [facility] (1 source) Morphine Drug Allergy 12-11-19 [facility] (1 source) Adhesive agent; Translations: [ADHESIVE] Propensity to adverse reactions to drug (disorder) 09-03-20 13 [facility] (1 source) Sulfonamides (Antibiotic); Translations: [SULFA (SULFONAMIDE ANTIBIOTICS)] Propensity to adverse reactions to drug (disorder) 12-22-19 06 [facility] (4 sources) IODINATED CONTRAST MEDIA; Translations: [IODINATED CONTRAST MEDIA] Propensity to adverse reactions to drug (disorder) 12-22-19 06 [facility] (1 source) ADHESIVE TAPE-SILICONES; Translations: [ADHESIVE TAPE-SILICONES] Propensity to adverse reactions to drug (disorder) 09-03-20 13 [facility] (3 sources) Latex Propensity to adverse reactions 12-22-19 Other, Rash, Unknown [facility] (3 sources) Morphine Drug Allergy 10-21-19 14 Nausea And Vomiting, GI intolerance [facility] (3 sources) Propoxyphene Drug Allergy 12-22-19 Other, Unknown [facility] (3 sources) Other Propensity to adverse reactions 12-22-19 Other, Unknown [facility] (3 sources) Wound Dressing Adhesive Drug Intolerance 09-03-20 13 Rash [facility] Medications Current Medications Medication Drug Class(es) Dates [...] needed. 0 Active take 1 capsule by [facility] every four hours Dohclpsudw-VJHU-Drpqckcn 50-325-40 MG 1 capsule as needed Orally [...] HYDROcodone-Acet aminophen 7.5-300 MG Orally Not-Taking [place] Active acyclovir 400 mg oral tablet (10 [...] daily. 0 Active Flovent Diskus A ctive Xwhczbyqphu-Lttyddkcj-Htzrxn er (2 sources) Anticholinergic, Corticosteroid, beta2-Adrenergic Agonist Start: 05-28-2024 Bdpipyjwlcq-Eiuekcsdb-Glpjmz er (Trelegy Ellipta) 100-62.5-25 mcg blister with [...] Once a day for 30 day(s) Not-Taking hydrocortisone acetate 25 mg/ml topical cream (3 sources) Corticosteroid Start: 05-22-2023 Hydrocortisone Acetate 2.5 % cream Indications: Lentigines Apply thin layer to affected areas twice a day as needed for flares 30 g 11 05/22/2023 Active hydrOXYzine hydrochloride 25 mg oral tablet (5 sources) Antihistamine Start: 09-03-2024 take 25 mg by mouth once daily [...] by mouth daily. Followed in coumadin clinic [place], [place] 0 Active take 1 tablet by lisa th two times weekly Warfarin Sodium 3 MG [...] 4 mg/0.1 mL nasal liquid Instill 1 [place] into one nostril (alternate sides) as needed. [...] Active Problems Problem Classification Problem Date Documented Date Episodic/Chronic Coagulation and hemorrhagic disorders (2 sources) Non-thrombocytopenic purpura; Translations: [Other nonthrombocytopenic purpura] 06-11-2024 Episodic Deficiency and other anemia (1 source) Iron deficiency anemia; Translations: [Iron deficiency anemia, unspecified] 06-27-2024 Episodic Osteoarthritis (16 sources) Degenerative joint disease of thumb; Translations: [Primary osteoarthritis, unspecified hand] Onset: 8 07-25-2018 Chronic Other aftercare (5 sources) Encounter for therapeutic drug level monitoring; Translations: [ENC THERAPEUTC DRUG LEVL MONITORING] Onset: 3 Episodic Other aftercare (1 source) 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; Translations: [QUANTITATIVE ANALYST MARKETING CURRNT USE ANTICOAGULANTS] Onset: 3 Episodic Other and unspecified benign neoplasm (2 sources) Dermatofibroma; Translations: [Other benign neoplasm of skin, unspecified] 06-11-2024 Episodic Other and unspecified benign neoplasm (2 sources) Skin lesion; Translations: [Hemangioma of skin and subcutaneous tissue] 06-11-2024 Episodic Other and unspecified benign neoplasm (2 sources) Senile angioma; Translations: [Hemangioma of skin and subcutaneous tissue] 06-11-2024 Episodic Other connective tissue disease (1 source) Other specified soft tissue disorders; Translations: [OTHER SPEC SOFT TISSUE DISORDERS] Onset: 3 Episodic Other connective tissue disease (2 sources) Pain of left hand; Translations: [Pain in left hand] 06-16-2023 Episodic Other connective tissue disease (1 source) Pain in left hand; Translations: [Pain in left hand] Onset: 3 Episodic Other diseases of veins and lymphatics (1 source) Venous insufficiency (chronic) (peripheral); Translations: [VENOUS INSUFF CHRONIC PERIPHERAL] Onset: 3 Episodic Other gastrointestinal disorders (1 source) Incontinence of feces; Translations: [Full incontinence of feces] Episodic Other gastrointestinal disorders (1 source) Dysphagia, unspecified; Translations: [Dysphagia, unspecified] Onset: 4 Episodic Other nervous system disorders (1 source) Other specified mononeuropathies; Translations: [Other specified mononeuropathies] Onset: 3 Chronic Other screening for suspected conditions (not mental disorders or infectious disease) (4 sources) Encounter for screening mammogram for malignant neoplasm of breast; Translations: [ENC SCR MAMMO MALIG NEOPLASM BREAST] Onset: 3 Episodic Other skin disorders (2 sources) Lentiginosis; Translations: [Other melanin hyperpigmentation] 06-11-2024 Episodic Peripheral and visceral atherosclerosis (4 sources) Peripheral vascular disease, unspecified; Translations: [PERIPHERAL VASCULAR DISEASE UNS] Onset: 3 Chronic Phlebitis; thrombophlebitis and thromboembolism (1 source) Chronic embolism and thrombosis of unspecified deep veins of unspecified lower extremity; Translations: [CHR EMB THROMB UNS DP VN UNS LW EXT] Onset: 2 Chronic Phlebitis; thrombophlebitis and thromboembolism (5 sources) Acute embolism and thrombosis of unspecified deep veins of unspecified lower extremity; Translations: [AC EMBO THROMB UNS DP VN UNS LW EXT] Onset: 3 Episodic Residual codes; unclassified (1 source) Asymptomatic menopausal state; Translations: [ASYMPTOMATIC MENOPAUSAL STATE] Onset: 3 Episodic Residual codes; unclassified (1 source) Family history of malignant neoplasm of breast; Translations: [FAMILY HX MALIG NEOPLASM OF BREAST] Onset: 3 Episodic Residual codes; unclassified (1 source) Family history of malignant neoplasm of trachea, bronchus and lung; Translations: [FAM HX MALIG NEOPLSM TRACH BRON LNG] Onset: 3 Episodic Residual codes; unclassified (1 source) Family history of other malignant neoplasms of lymphoid, hematopoietic and related tissues; Translations: [FAM HX OTH MAL JO ANN LYMPH HEMATPOETC] Onset: 3 Episodic Residual codes; unclassified (1 source) Family history of malignant neoplasm of ovary; Translations: [FAM HX MALIGNANT NEOPLASM OVARY] Onset: 3 Episodic Rheumatoid arthritis and related disease (5 sources) Bilateral rheumatoid arthritis of hands; Translations: [Rheumatoid arthritis, unspecified] Onset: 0 04-06-2020 Chronic Spondylosis; intervertebral disc disorders; other back problems (7 sources) Brachial neuritis; Translations: [Radiculopathy, cervical region] Onset: 5 07-25-2018 Episodic Thyroid disorders (1 source) Hypothyroidism, unspecified; Translations: [HYPOTHYROIDISM UNSPECIFIED] Onset: 2 Chronic Unclassified (1 source) Other Onset: 4 Past or Other Problems Problem Classification Problem [...] [Mass/Vol] 9.5 mg/dL Normal (8.6 - 10.6) [facility] Comment on above: Order Comment: FACIL ITY: [facility] [id number] Performed By: #### C HEM-B, MG #### [facility] [address] [place], [address] Chloride [Moles/Vol] 101 mmol/L Normal (98 - 107) [facility] Comment on above: Order Comment: FACIL ITY: [facility] [id number] Performed By: #### C HEM-B, MG #### [facility] [address] [place], [address] CO2 [Moles/Vol] 26 mmol/L Normal (22 - 30) [facility] Comment on above: Order Comment: FACIL ITY: [facility] [id number] Performed By: #### C HEM-B, MG #### [facility] [address] [facility], [address] Creatinine [Mass/Vol] 0.57 mg/dL Normal (0.52 - 1.04) [facility] Comment on above: Order Comment: FACIL ITY: [facility] [id number] Performed By: #### C HEM-B, MG #### [facility] [address] [facility], [address] GFR- AMER 128.8 ML/M1.7 Normal (60.0 - 140.1) [facility] Comment on above: Order Comment: FACIL ITY: [facility] [id number] Performed By: #### C HEM-B, MG #### [facility] [address] [place], [address] GFR-NON AFRIC-AMER 106.4 ML/M1.7 Normal (60.0 - 115.8) [facility] Comment on above: Order Comment: FACIL ITY: [facility] [id number] Performed By: #### C HEM-B, MG #### [facility] [address] [place], [address] Glucose [Mass/Vol] 73 mg/dL Low (74 - 106) [facility] Comment on above: Order Comment: FACIL ITY: [facility] [id number] Performed By: #### C HEM-B, MG #### [facility] [address] [facility], [address] Potassium [Moles/Vol] 5.4 mmol/L High (3.5 - 5.1) [facility] Comment on above: Order Comment: FACIL ITY: [facility] [id number] Performed By: #### C HEM-B, MG #### [facility] [address] [facility], [address] Sodium [Moles/Vol] 131 mmol/L Low (137 - 145) [facility] Comment on above: Order Comment: FACIL ITY: [facility] [id number] Performed By: #### C HEM-B, MG #### [facility] [address] [facility], [address] Urea nitrogen [Mass/Vol] 9 mg/dL Normal (4 - 25) [facility] Comment on above: Order Comment: FACIL ITY: [facility] [id number] Performed By: #### C HEM-B, MG #### [facility] [address] [facility], [address] MAGNESIUMon 07-17-2024 Magnesium [Mass/Vol] 2.1 mg/dL Normal (1.6 - 2.3) [facility] Comment on above: Performed By: #### C HEM-B, MG #### [facility] [address] [facility], [address] Venkat 02-28-2024 L Specimen: [id number] Received: 02/28/24 Status: SIENARaghu Sherry Num: [id number] Spec Type: Surgical Subm Dr: Aliza Spencer DO Tissues: A Stomach - Biopsy/Polyp (ANTRUM BX) B Stomach - Biopsy/Polyp (BX FUNDAL GLAND POLYP) C Esophagus Biopsy (DISTAL ESOPH BX) D Esophagus Biopsy (UPPER ESOPH BX) Procedures: HE/8, Gross/Micro L4/4 Age/ Patient Sex Location Account Attending Physician DionnaMadan 64/F LABE[facility] [id number] Aliza Spencer DO SPEC NUM: [id number] RECD: 02/28/24 STATUS: DUDLEY POWELL NUM: [id number] SUNSHINE: 02/28/[address] [facility] [address]: Aliza Spencer DO ENTERED: 02/28/24 [facility] DR: Eben Newell SPEC TYPE: Surgical DEPT: [...] tissue fragment, entirely submitted in B1. Specimen: [id number] Received: 02/28/24 Status: DUDLEY Sherry Num: [id number] Spec Type: Surgical Subm Dr: Aliza Spencer DO Tissues: A Stomach - Biopsy/Polyp (ANTRUM BX) B Stomach - Biopsy/Polyp (BX FUNDAL GLAND POLYP) C Esophagus Biopsy (DISTAL ESOPH BX) D Esophagus Biopsy (UPPER ESOPH BX) Procedures: HE/8, Gross/Micro L4/4 Patient: Madan Perry [id number] (Continued) Specimen: [id number] Received: 02/28/24 (Continued) Gross Description (Continued) Signed (signature on file) Steven Ruvalcaba MD 02/29/24 1501 Specimen: [id number] Received: 02/28/24 Status: DUDLEY Powell Num: [id number] Spec Type: Surgical Subm Dr: Aliza Spencer DO Tissues: A Stomach - Biopsy/Polyp (ANTRUM BX) B Stomach - Biopsy/Polyp (BX FUNDAL GLAND POLYP) C Esophagus Biopsy (DISTAL ESOPH BX) D Esophagus Biopsy (UPPER ESOPH BX) Procedures: WILEY/Ratna, Gross/Micro L4/4 Patient: Madan Perry [id number] (Continued) Specimen: [id number] Received: 02/28/24 (Continued) Gross Description (Continued) C. Further labeled distal esophagus BX are 2 jiménez mucosal tissue fragments measuring 0.3 x 0.2 x 0.1 cm and 0.2 x 0.2 x 0.1 cm, entirely submitted in C1. D. Further labeled upper esophagus BX are 2 jiménez mucosal tissue fragments each measuring 0.2 x 0.1 x 0.1 cm, entirely submitted in D1. CPT Codes 51732t8 Specimen: [id number] Received: 02/28/24 Status: DUDLEY Powell Num: [id number] Spec Type: Surgical Subm Dr: Aliza Spencer,DO Tissues: A Stomach - Biopsy/Polyp (ANTRUM BX) B Stomach - Biopsy/Polyp (BX FUNDAL GLAND POLYP) C Esophagus Biopsy (DISTAL ESOPH BX) D Esophagus Biopsy (UPPER ESOPH BX) Procedures: HE/8, Gross/Micro L4/4 Patient: Madan Perry Lizeth [id number] (Continued) Signed (signature on file) Steven Ruvalcaba MD 02/29/24 1501 Normal [facility] URINE CULTUREon 12-23-2023 Bacteria identified Cx Nom (U) FINAL Normal (. - .) [facility] Comment on above: Order Comment: MS CC FACILITY: [facility] [id number] Result Comment: HUA N CATCH MID-STREAM URINE > 10,000 BUT < 100,000 CFU/ML RESEMBLES A CONTAMINATED URINE COLLECTION Performed By: #### C -UR #### [facility] [address] [facility], [address] BASIC MET PANEL W/GFRon 12-0 Calcium [Mass/Vol] 9.2 mg/dL Normal (8.6 - 10.6) [facility] Comment on above: Order Comment: FACIL ITY: [facility] [id number] Performed By: #### C HEM-B #### [facility] [address] [facility], [address] Chloride [Moles/Vol] 99 mmol/L Normal (98 - 107) [facility] Comment on above: Order Comment: FACIL ITY: [facility] [id number] Performed By: #### C HEM-B #### [facility] [address] [place], [address] CO2 [Moles/Vol] 27 mmol/L Normal (22 - 30) [facility] Comment on above: Order Comment: FACIL ITY: [facility] [id number] Performed By: #### C HEM-B #### [facility] [address] [facility], [address] Creatinine [Mass/Vol] 0.74 mg/dL Normal (0.52 - 1.04) [facility] Comment on above: Order Comment: FACIL ITY: [facility] [id number] Performed By: #### C HEM-B #### [facility] [address] [facility], [address] GFR- AMER 95.6 ML/M1.7 Normal (60.0 - 140.1) [facility] Comment on above: Order Comment: FACIL ITY: [facility] [id number] Performed By: #### C HEM-B #### [facility] [address] [place], [address] GFR-NON AFRIC-AMER 79.0 ML/M1.7 Normal (60.0 - 115.8) [facility] Comment on above: Order Comment: FACIL ITY: [facility] [id number] Performed By: #### C HEM-B #### [facility] [address] [place], [address] Glucose [Mass/Vol] 100 mg/dL Normal (74 - 106) [facility] Comment on above: Order Comment: FACIL ITY: [facility] [id number] Performed By: #### C HEM-B #### [facility] [address] [place], [address] Potassium [Moles/Vol] 4.6 mmol/L Normal (3.5 - 5.1) [facility] Comment on above: Order Comment: FACIL ITY: [facility] [id number] Performed By: #### C HEM-B #### [facility] [address] [place], [address] Sodium [Moles/Vol] 136 mmol/L Low (137 - 145) [facility] Comment on above: Order Comment: FACIL ITY: [facility] [id number] Performed By: #### C HEM-B #### [facility] [address] [place], [address] Urea nitrogen [Mass/Vol] 11 mg/dL Normal (7 - 17) [facility] Comment on above: Order Comment: [facility] [id number] Performed By: #### C HEM-B #### [facility] [address] [place], [address] Progress Noteson 08-25-2023 Floor Hand Authentication Interface Message Text CC: Left hand and wrist pain Follow up after MRI done at [facility]. Normal [facility] Floor Hand Authentication Interface Message Text Patient Office Note or Post OP Note Name:Madan Perry Date: 08/25/2023 CC: left wrist pain at [facility] area No chief complaint on [...] patient. Aliza Aguilar MD Injection Procedure.[facility] 08/25/2023 [id number] Madan Perry The patient requested an injection [...] alcohol and a dressing applied. Normal [facility] MR wrist LT wo conon 023 MR wrist LT wo con [facility] [address] MRI Report Signed Patient: Madan Perry MR#: [id number] : 1960 Acct:[id number] Age/Sex: 63 / F ADM Date: 07/20/23 Loc: [facility] Room: Type: [facility] Attending Dr: Aliza Aguilar Copies to: Aliza Aguilar Ordering Provider: Aliza Aguilar Date of Service: 07/20/23 MR/MR hand LT wo con: MEDIAN NERVE COMPRESSION ([id number]) MR/MR wrist LT wo con: MEDIAN NERVE COMPRESSION ([id number]) XR/XR pre/post mri xray: MEDIAN NERVE COMPRESSION [...] Jose Dial M.D.07/21/2023 7:38 PM Dictation Location: [facility] Transcribed By: [facility] 07/21/231937 Dictated By: Jose Dial DO 07/20/23 1525 Signed By: 07/21/231937 Normal [facility] Telephone Encounteron 2022 Floor Hand Authentication Interface Message Text Spoke with patient and scheduled. Normal [facility] Telephone Encounteron 2022 Floor Hand Authentication Interface Message Text Pt called as [...] she would need something sooner. Contact pt [phone] Normal [facility] Addendum Noteon 06-16-2023 Floor Hand Authentication Interface Message Text Addended by: ALIZA AGUILAR on: 06/16/2023 11:34 AM Modules accepted: Orders Normal [facility] Progress Noteson 06-16-2023 Floor Hand Authentication Interface Message Text Patient Office Note [...] this patient. Aliza Aguilar MD Normal [facility] Floor Hand Authentication Interface Message Text CC: Left hand pain Pain Left wrist and hand; tingling to middle and ring fingers. Pt states ganglion which was removed has returned and is painful. CMC joint painful. 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 Normal [facility] XR HAND LEFT 3 VIEWSon 06-16 [...] with the findings. Left hand MACRO: [facility] (narrative[facility] XR Hand - left 3 ViewsOrdere d By: Alberto Llanes on 06-16-2023 [employer] Work Phone: [place] DARNELL DOP LEG BILon [...] L[place]IS SEWELL Date: 2023-01-27 17:22 Normal [facility] CBC AUTO DIFFon 01-12-2023 BASO # 0.1 103/ul Normal 0.0-0.1 [facility] Comment on above: Performed By: #### C BC #### [facility] [address] [address] [address] Rocio Hernandez Basophils/100 WBC (Bld) 1.0 % Normal 0.2-2.0 [facility] Comment on above: Performed By: #### C BC #### [facility] [address] [address] [address] Rocio Hernandez EO # 0.2 103/ul Normal 0.0-0.7 [facility] Comment on above: Performed By: #### C BC #### [facility] [address] [address] [address] Rocio Hernandez Eosinophils/100 WBC (Bld) 2.9 % Normal 0.9-7.0 [facility] Comment on above: Performed By: #### C BC #### [facility] [address] [place] [address] Dr. Rocio Hernandez Erythrocyte distribution width (RBC) [Ratio] 14.1 % Normal 11.0-15.0 [facility] Comment on above: Performed By: #### C BC #### [facility] [address] [place] [address] Dr. Rocio Hernandez Hematocrit (Bld) [Volume fraction] 41.2 % Normal 36.0-48.0 [facility] Comment on above: Performed By: #### C BC #### [facility] [address] [place] [address] Dr. Rocio Hernandez Hemoglobin (Bld) [Mass/Vol] 13.6 g/dL Normal 12.0-16.0 [facility] Comment on above: Performed By: #### C BC #### [facility] [address] [place] [address] Dr. Rocio Hernandez IG # 0.01 10e3/ul Normal 0.00-0.03 [facility] Comment on above: Performed By: #### C BC #### [facility] [address] [place] [address] Dr. Rocio Hernandez IG % 0.2 % Normal 0.0-0.5 [facility] Comment on above: Performed By: #### C BC #### [facility] [address] [place] [address] Dr. Rocio Hernandez LYMPH # 1.3 103/ul Normal 1.2-3.8 [facility] Comment on above: Performed By: #### C BC #### [facility] [address] [place] [address] Dr. Rocio Hernandez Lymphocytes/100 WBC (Bld) 21.9 % Normal 20.5-60.0 [facility] Comment on above: Performed By: #### C BC #### [facility] [address] [place] [address] Dr. Rocio Hernandez MANUAL DIFF REQ NO Normal [facility] Comment on above: Performed By: #### C BC #### [facility] [address] [place] [address] Dr. Rocio Hernandez MCH (RBC) [Entitic mass] 28.4 pg Normal 26.7-34.0 [facility] Comment on above: Performed By: #### C BC #### [facility] [address] [place] [address] Dr. Rocio Hernandez MCHC (RBC) [Mass/Vol] 33.0 g/dL Normal 29.9-35.2 [facility] Comment on above: Performed By: #### C BC #### [facility] [address] [place] [address] Dr. Rocio Hernandez MCV (RBC) [Entitic vol] 86.0 fL Normal 81.0-99.0 [facility] Comment on above: Performed By: #### C BC #### [facility] [address] [place] [address] Dr. Rocio Hernandez MONO # 0.6 103/ul Normal 0.3-0.8 [facility] Comment on above: Performed By: #### C BC #### [facility] [address] [place] [address] Dr. Rocio Hernandez Monocytes/100 WBC (Bld) 10.3 % Normal 1.7-12.0 [facility] Comment on above: Performed By: #### C BC #### [facility] [address] [place] [address] Dr. Rocio Hernandez NEUT # 3.8 103/ul Normal 1.4-6.5 [facility] Comment on above: Performed By: #### C BC #### [facility] [address] [place] [address] Dr. Rocio Hernandez Neutrophils/100 WBC (Bld) 63.7 % Normal 43.0-75.0 [facility] Comment on above: Performed By: #### C BC #### [facility] [address] [place] [address] Dr. Rocio Hernandez Platelet mean volume (Bld) [Entitic vol] 9.0 fL Critically low 9.5-13.5 [facility] Comment on above: Performed By: #### C BC #### [facility] [address] [address] [address] Rocio Hernandez PLT 360 103/ul Normal 150-450 [facility] Comment on above: Performed By: #### C BC #### [facility] [address] [address] [address] Rocio Hernandez RBC 4.79 106/ul Normal 4.20-5.40 [facility] Comment on above: Performed By: #### C BC #### [facility] [address] [address] [address] Rocio Hernandez WBC 5.9 103/ul Normal 4.0-11.0 [facility] Comment on above: Performed By: #### C BC #### [facility] [address] [place] [address] Dr. Rocio Hernandez FREE T3on 01-12-2023 FREE T3 2.31 pg/mlL Normal 2.18-3.98 [facility] Comment on above: Performed By: #### T SH, CMP, LIPID, FT3 ####[facility] [address] [address]Dr. Rocio Hernandez FREE T4on 01-12-2023 Free T4 [Mass/Vol] 1.21 ng/dL Normal 0.76-1.[address] [facility] Comment on above: Performed By: #### B 12FOL, FT4 #### [facility] [address] [address] [address] Rocio Hernandez GLYCOHEMOGLOBIN A1Con 2022 ADA RECOMMENDATION SEE BELOW Normal [facility] Comment on above: Result Comment: ADA RECOMMENDED LIMIT 4.0 - 6.0 ADA THERAPEUTIC TARGET < 7.0 ACTION SUGGESTED > 7.0 Performed By: #### A 1C ####[facility] [address] [address]Dr. Rocio Hernandez Glucose [Mass/Vol] 123 mg/dL Normal [facility] Comment on above: Performed By: #### A 1C ####[facility] [address] [address]Dr. Rocio Hernandez HbA1c (Bld) [Mass fraction] 5.9 % Normal 4.5-6.2 [facility] Comment on above: Performed By: #### A 1C ####[facility] [address] [address]Dr. Rocio Hernandez LIPID PROFILEon 01-12-2023 CHOL-HDL RATIO NORM SEE BELOW Normal [facility] Comment on above: Result Comment: 3.3 - 4.4 LOW RISK 4.4 - 7.1 AVERAGE RISK 7.1 - 11.0 MODERATE RISK >11.0 HIGH RISK Performed By: #### T SH, CMP, LIPID, FT3 #### [facility] [address] [address] [address] Rocio Hernandez Cholesterol [Mass/Vol] 203 mg/dL Critically high <=200 [facility] Comment on above: Performed By: #### T SH, CMP, LIPID, FT3 #### [facility] [address] [address] [address] Rocio Hernandez Cholesterol in HDL [Mass/Vol] 89 mg/dL Critically high 40-60 [facility] Comment on above: Performed By: #### T SH, CMP, LIPID, FT3 #### [facility] [address] [address] [address] Rocio Hernandez Cholesterol in LDL [Mass/Vol] 87.8 mg/dL Normal [facility] Comment on above: Performed By: #### T SH, CMP, LIPID, FT3 #### [facility] [address] [address] [address] Rocio Hernandez Cholesterol.total/C holesterol in HDL [Mass ratio] 2.3 {ratio} Normal [facility] Comment on above: Performed By: #### T SH, CMP, LIPID, FT3 #### [facility] [address] [address] [address] Rocio Hernandez HDL NORMAL > or = 60 mg/dl - LO W CARDIOVASCULAR RISK <40 mg/dl - HIGH CARDIOVASCULAR RISK Normal [facility] Comment on above: Performed By: #### T SH, CMP, LIPID, FT3 #### [facility] [address] [address] [address] Rocio Hernandez LDL CALC NORMAL SEE BELOW Normal [facility] Comment on above: Result Comment: <100 mg/dl OPTIMAL 100 - 129 mg/dl NEAR OR ABOVE OPTIMAL 130 - 159 mg/dl BORDERLINE HIGH 160 - 189 mg/dl HIGH >190 mg/dl VERY HIGH Performed By: #### T SH, CMP, LIPID, FT3 #### [facility] [address] [address] [address] Rocio Hernandez Triglyceride [Mass/Vol] 131 mg/dL Normal <=150 [facility] Comment on above: Performed By: #### T SH, CMP, LIPID, FT3 #### [facility] [address] [address] [address] Rocio Hernandez VLDL CALC 26.2 mg/dL Normal [facility] Comment on above: Performed By: #### T SH, CMP, LIPID, FT3 #### [facility] [address] [address] [address] Rocio Hernandez MICROALB CREAT RATIO RANDOMo n 01-12-2023 mALB <1.3 Normal <=30.0 [facility] Comment on above: Performed By: #### M CRR ####[facility] [address] [place], [place] [address]SeClem Hernandez MALB CR RATIO 13.6 mg/g Normal 0.0-29.9 [facility] Comment on above: Performed By: #### M CRR ####[facility] [address] [place], [place] [address]Xf. Rocio Hernandez MALB CR RATIO RANGE SEE BELOW Normal [facility] Comment on above: Result Comment: NO M ICROALBUMINURIA 0-29 MG/G CLINICAL MICROALBUMINURIA 30-300 MG/G MACROALBUMINURIA >300 MG/G Performed By: #### M CRR ####[facility] [address] [place], [place] [address]OrClem Hernandez URINE CREAT 95.84 mg/dL Normal 20.00-300.00 [facility] Comment on above: Performed By: #### M CRR ####[facility] [address] [address]Dr. Rocio Hernandez PROF 14(COMP METB)on 023 Albumin [Mass/Vol] 3.8 g/dL Normal 3.4-5.0 [facility] Comment on above: Performed By: #### T SH, CMP, LIPID, FT3 #### [facility] [address] [address] [address] Rocio Hernandez Albumin/Globulin [Mass ratio] 0.9 {ratio} Normal [facility] Comment on above: Performed By: #### T SH, CMP, LIPID, FT3 #### [facility] [address] [address] [address] Rocio Hernandez ALP [Catalytic activity/Vol] 111 U/L Normal 46-116 [facility] Comment on above: Performed By: #### T SH, CMP, LIPID, FT3 #### [facility] [address] [place] [address] Dr. Rocio Hernandez ALT [Catalytic activity/Vol] 42 U/L Normal 14-59 [facility] Comment on above: Performed By: #### T SH, CMP, LIPID, FT3 #### [facility] [address] [address] [address] Rocio Hernandez Anion gap [Moles/Vol] 10.8 mmol/L Normal [facility] Comment on above: Performed By: #### T SH, CMP, LIPID, FT3 #### [facility] [address] [address] [address] Rocio Hernandez AST [Catalytic activity/Vol] 24 U/L Normal 15-37 [facility] Comment on above: Performed By: #### T SH, CMP, LIPID, FT3 #### [facility] [address] [place] [address] Dr. Rocio Hernandez Bilirubin [Mass/Vol] 0.4 mg/dL Normal 0.2-1.0 [facility] Comment on above: Performed By: #### T SH, CMP, LIPID, FT3 #### [facility] [address] [address] [address] Rocio Hernandez Calcium [Mass/Vol] 9.6 mg/dL Normal 8.5-10.1 [facility] Comment on above: Performed By: #### T SH, CMP, LIPID, FT3 #### [facility] [address] [address] [address] Rocio Hernandez Chloride [Moles/Vol] 93 mmol/L Critically low 98-107 [facility] Comment on above: Performed By: #### T SH, CMP, LIPID, FT3 #### [facility] [address] [address] [address] Rocio Hernandez CO2 [Moles/Vol] 31.2 mmol/L Normal 21.0-32.0 [facility] Comment on above: Performed By: #### T SH, CMP, LIPID, FT3 #### [facility] [address] [place] [address] Dr. Rocio Hernandez Creatinine [Mass/Vol] 1.02 mg/dL Normal 0.55-1.02 [facility] Comment on above: Performed By: #### T SH, CMP, LIPID, FT3 #### [facility] [address] [place] [address] Dr. Rocio Hernandez EGFR-AF URUGUAYAN >60 Normal >=60 [facility] Comment on above: Performed By: #### T SH, CMP, LIPID, FT3 #### [facility] [address] [address] [address] Rocio Hernandez EGFR-NON AF URUGUAYAN 55 mL/min/1.73m2 Critically low >=60 [facility] Comment on above: Performed By: #### T SH, CMP, LIPID, FT3 #### [facility] [address] [address] [address] Rocio Hernandez Globulin (S) [Mass/Vol] 4.4 g/dL Normal [facility] Comment on above: Performed By: #### T SH, CMP, LIPID, FT3 #### [facility] [address] [address] [address] Rocio Hernandez Glucose [Mass/Vol] 102 mg/dL Normal 74-106 [facility] Comment on above: Performed By: #### T SH, CMP, LIPID, FT3 #### [facility] [address] [place] [address] Dr. Rocio Hernandez Potassium [Moles/Vol] 4.0 mmol/L Normal 3.5-5.1 [facility] Comment on above: Performed By: #### T SH, CMP, LIPID, FT3 #### [facility] [address] [address] [address] Rocio Hernandez Protein [Mass/Vol] 8.2 g/dL Normal 6.4-8.[address] [facility] Comment on above: Performed By: #### T SH, CMP, LIPID, FT3 #### [facility] [address] [place] [address] Dr. Rocio Hernandez Sodium [Moles/Vol] 131 mmol/L Critically low 136-145 [facility] Comment on above: Performed By: #### T SH, CMP, LIPID, FT3 #### [facility] [address] [place] [address] Dr. Rocio eHrnandez Urea nitrogen [Mass/Vol] 6.0 mg/dL Critically low 7.0-18.0 [facility] Comment on above: Performed By: #### T SH, CMP, LIPID, FT3 #### [facility] [address] [place] [address] Dr. Rocio Hernandez Urea nitrogen/Creatinine [Mass ratio] 5.9 mg/mg Normal [facility] Comment on above: Performed By: #### T SH, CMP, LIPID, FT3 #### [facility] [address] [place] [address] Dr. Rocio Hernandez TSHon 01-12-2023 TSH 5.647 uIU/mL Critically high 0.358-3.740 [facility] Comment on above: Performed By: #### T SH, CMP, LIPID, FT3 #### [facility] [address] [place] [address] Dr. Rocio Hernandez VIT B12 AND FOLATEon 023 Cobalamin (Vitamin B12) [Mass/Vol] 1189.0 pg/mL Critically high 193.0-986.0 [facility] Comment on above: Performed By: #### B 12FOL, FT4 #### [facility] [address] [address] [address] Rocio Hernandez FOLATE 27.30 ng/mL Normal 8.60-58.90 [facility] Comment on above: Performed By: #### B 12FOL, FT4 #### [facility] [address] [address] [address] Rocio Hernandez MG MAMM SCREEN 3D TAINA CADon 12-19-2022 MG MAMM SCREEN 3D TANIA CAD Patient: MADAN PERRY Exam Date: 12/19/2022 : 1960 Gender:F Ordering : DR [place] D.O. Admission #: [id number] Family : Order #: [id number] CLICK HERE TO VIEW EXAM RADIOLOGY REPORT [...] ovarian cancer at age 54. LOCATION: [facility] BREAST COMPOSITION: Scattered areas fibroglandular [...] LIZ FLORES Date: 2022-12-19 10:[address] [facility] FREE T3on 03-22-2022 FREE T3 2.43 pg/mlL Normal 2.18-3.98 [facility] Comment on above: Performed By: #### B MP, FT3, TSH ####[facility] [address] [address]DrClem Hernandez FREE T4on 03-22-2022 Free T4 [Mass/Vol] 1.43 ng/dL Normal 0.76-1.46 [facility] Comment on above: Performed By: #### F T4 ####[facility] [address] [address]DrClem Hernandez PROF CHEM 8 (BAS METB)on Anion gap [Moles/Vol] 10.2 mmol/L [facility] Comment on above: Performed By: #### B MP, FT3, TSH ####[facility] [address] [id number] Hernandez Calcium [Mass/Vol] 8.8 mg/dL Normal 8.5-10.1 [facility] Comment on above: Performed By: #### B MP, FT3, TSH ####[facility] [address] [address]Dr. Rocio Hernadnez Chloride [Moles/Vol] 104 mmol/L Normal 98-107 [facility] Comment on above: Performed By: #### B MP, FT3, TSH ####[facility] [address] [address]Dr. Rocio Hernandez CO2 [Moles/Vol] 31.7 mmol/L Normal 21.0-32.0 [facility] Comment on above: Performed By: #### B MP, FT3, TSH ####[facility] [address] [address]Dr. Rocio Hernandez Creatinine [Mass/Vol] 0.96 mg/dL Normal 0.55-1.02 [facility] Comment on above: Performed By: #### B MP, FT3, TSH ####[facility] [address] [address]Dr. Rocio Hernandez EGFR-AF URUGUAYAN >60 Normal >=60 [facility] Comment on above: Performed By: #### B MP, FT3, TSH ####[facility] [address] [address]Dr. Kerendereck Hernandez EGFR-NON AF URUGUAYAN 59 mL/min/1.73m2 Critically low >=60 [facility] Comment on above: Performed By: #### B MP, FT3, TSH ####[facility] [address] [address]Dr. Kerendereck Hernandez Glucose [Mass/Vol] 110 mg/dL Critically high 74-106 [facility] Comment on above: Performed By: #### B MP, FT3, TSH ####[facility] [address] [address]Dr. Rocio Hernandez Potassium [Moles/Vol] 2.9 mmol/L Critically low 3.5-5.1 [facility] Comment on above: Result Comment: TEST REPEATED CRITICAL VALUE VERIFIED Performed By: #### B MP, FT3, TSH ####[facility] [address] [place], [place] [address]Mg. Rocio Hernandez Sodium [Moles/Vol] 141 mmol/L Normal 136-145 [facility] Comment on above: Performed By: #### B MP, FT3, TSH ####[facility] [address] [id number]. Rocio Hernandez Urea nitrogen [Mass/Vol] 12.0 mg/dL Normal 7.0-18.0 [facility] Comment on above: Performed By: #### B MP, FT3, TSH ####[facility] [address] [id number]. Rocio Hernandez Urea nitrogen/Creatinine [Mass ratio] 12.5 mg/mg Normal [facility] Comment on above: Performed By: #### B MP, FT3, TSH ####[facility] [address] [id number]. Rocio Hernandez TSHon 03-22-2022 TSH 0.137 uIU/mL Critically low 0.358-3.740 [facility] Comment on above: Performed By: #### B MP, FT3, TSH ####[facility] [address] [id number]. Rocio Hernandez Patient Letter FTon 2020 Patient Letter FT (Inserted Image. Wilda ble to display) May 26, 2021 MADAN PERRY [address] [place] [address] MADAN PERRY 1960 Dear Madan, This is a SECOND ATTEMPT to remind you that you are due for an appointment with [facility]. Please contact our office at [phone] to schedule an appointment at your earliest convenience. Thank you, [facility] Normal [facility] Reminderson 05-26-2021 Reminders - From: Jane Onofre To: [facility] - Reminders/Recalls; Sent: 01/18/2021 12:33:31 EDT Show up: 04/25/2021 12:33:00 EDT Subject: Ambulatory Reminder Due Date/Time: 06/09/2021 12:33:00 EDT Reminder/Recall sara peace 5 year colon 06/09/2021 first recall letter second rcall letter Normal [facility] Patient Letter FTon 2020 Patient Letter FT (Inserted Image. Wilda ble to display) May 05, 2021 MADAN PERRY [address] [place] [address] DIONNA MADAN M 1960 Dear Madan, This is a reminder that you are due for an appointment with [facility]. Please contact our office at [phone] to schedule an appointment at your earliest convenience. Thank you, [facility] Vital Signs Date Time Vital Sign Value Performing Clinician Facility 06-27-2024 12:50-0400 Body height 161.29 cm [facility] 06-27-2024 12:50-0400 Body mass index (BMI) [Ratio] 27 kg/m2 [facility] 06-27-2024 12:50-0400 Body weight 70.3 kg [facility] 05-28-2024 13:19-0400 Body height 161.29 cm [place] Work Phone: [facility] 05-28-2024 13:19-0400 Body mass index (BMI) [Ratio] 26.5 kg/m2 DO [place] Work Phone: [facility] 05-28-2024 13:19-0400 Body weight 69.11 kg DO [place] Work Phone: [facility] 05-09-2022 16:35-0400 Body height 161.29 cm Adilia Mederos Other [employer] Other 05-09-2022 16:35-0400 Body mass index (BMI) [Ratio] 25.63 kg/m2 Adilia Mederos Other [employer] Other 05-09-2022 16:35-0400 Body temperature 97.8 [degF] Adilia Mederos Other [employer] Other 05-09-2022 16:35-0400 Body weight 66.68 kg Adilia Mederos Other [employer] Other 05-09-2022 16:35-0400 Diastolic blood pressure 79 mm[Hg] Adilia Mederos Other [employer] Other 05-09-2022 16:35-0400 Respiratory rate 18 /min Adilia Mederos Other [employer] Other 05-09-2022 16:35-0400 SaO2% (BldA) [Mass fraction] 98 % Adilia Mederos Other [employer] Other 05-09-2022 16:35-0400 Systolic blood pressure 136 mm[Hg] Adilia Mederos Other [employer] Other 07-21-2021 16:05-0400 Body height 161.29 cm Lilian Hanna Other [employer] Other 07-21-2021 16:05-0400 Body mass index (BMI) [Ratio] 26.5 kg/m2 Lilian Hanna Other [employer] Other 07-21-2021 16:05-0400 Body temperature 96.2 [degF] Lilian Hanna Other [employer] Other 07-21-2021 16:05-0400 Body weight 68.95 kg Lilian Hanna Other [employer] Other 07-21-2021 16:05-0400 Diastolic blood pressure 95 mm[Hg] Lilian Ferreira Other [employer] Other 07-21-2021 16:05-0400 Respiratory rate 18 /min Lilian Ferreira Other [employer] Other 07-21-2021 16:05-0400 SaO2% (BldA) [Mass fraction] 99 % Lilian Ferreira Other [employer] Other 07-21-2021 16:05-0400 Systolic blood pressure 132 mm[Hg] Lilian Ferreira Other [employer] Other 06-22-2021 14:20-0400 Body height 161.29 cm Adilia Cardenasault Other [employer] Other 06-22-2021 14:20-0400 Body mass index (BMI) [Ratio] 25.98 kg/m2 Adilia Rosa M Other [employer] Other 06-22-2021 14:20-0400 Body temperature 96.4 [degF] Adilia Rosa M Other [employer] Other 06-22-2021 14:20-0400 Body weight 67.59 kg Adilia Rosa M Other [employer] Other 06-22-2021 14:20-0400 Diastolic blood pressure Adilia Rosa M Other [employer] Other 06-22-2021 14:20-0400 Respiratory rate 18 /min Adilia Mederos Other [employer] Other 06-22-2021 14:20-0400 SaO2% (BldA) [Mass fraction] 98 % Adilia Mederos Other [employer] Other 06-22-2021 14:20-0400 Systolic blood pressure 111 mm[Hg] Adilia Mederos Other [employer] Other Encounters Encounter Date Encounter Type Care Provider Facility Start: 06-27-2024 End: 06-27-2024 ambulatory [facility] Work Phone: Start: 06-27-2024 End: 06-27-2024 Patient encounter procedure [facility] Work Phone: Start: 06-11-2024 End: 06-11-2024 Bamboo flowsheet Ivy A Felter STUDENT TEACHING COORDINATOR-[employer]AVEL JOURNALIST Work Phone: [facility] Start: 06-11-2024 End: 06-11-2024 Bamboo flowsheet Ivy A Felter STUDENT TEACHING COORDINATOR-[employer]AVEL JOURNALIST Work Phone: [facility] Start: 06-11-2024 End: 06-11-2024 Office outpatient visit 15 minutes Ivy A Felter STUDENT TEACHING COORDINATOR-[employer]AVEL JOURNALIST Work Phone: [facility] Comment on above: Dermatofibroma (Prim maurisio Dx); Angioma of skin; Lentigines; Garcia angioma; Other nonthrombocytopenic purpura (CMS/HCC) Start: 06-11-2024 End: 06-11-2024 ambulatory IVY A FELTER Not Available Start: 05-28-2024 End: 05-28-2024 ambulatory DO [place] Work Phone: [facility] Work Phone: Start: 05-28-2024 End: 05-28-2024 Patient encounter procedure DO [place] Work Phone: [facility] Work Phone: Start: 05-20-2024 End: 05-20-2024 ambulatory Meet Harp MD Facility:[facility] Start: 05-13-2024 End: 05-13-2024 ambulatory Meet Harp MD Facility:[facility] Start: 03-14-2024 End: 03-14-2024 ambulatory [facility] [facility] Start: 02-28-2024 End: 02-28-2024 ambulatory DO [place] Work Phone: [facility] Work Phone: Start: 02-28-2024 End: 02-28-2024 Departed Referred DO [place] Work Phone: [facility] Start: 02-20-2024 End: 02-20-2024 ambulatory [facility] Start: 01-15-2024 End: 01-15-2024 ambulatory Meet Harp MD Facility: [facility] Start: 12-04-2023 End: 12-04-2023 ambulatory Meet Harp MD Facility: [facility] Start: 11-06-2023 End: 11-06-2023 ambulatory Meet Harp MD Facility: [facility] Start: 10-09-2023 End: 10-09-2023 ambulatory Meet Harp MD Facility: [facility] Start: 08-25-2023 End: 08-25-2023 ambulatory ALIZA AGUILAR Facility:[facility] Start: 08-25-2023 End: 08-25-2023 Office outpatient visit 15 minutes Aliza Aguilar MD Work Phone: [facility] [address] [place] [address] Ctr Orthopedics Comment on above: Hand arthritis (Prim maurisio Dx) Start: 08-21-2023 End: 08-21-2023 ambulatory [facility] Start: 08-19-2023 Letter encounter Yesy Marci OT Work Phone: [facility] Start: 07-31-2023 End: 07-31-2023 ambulatory Meet Harp MD Facility:[facility] Start: 07-24-2023 End: 07-24-2023 ambulatory Meet Harp MD Facility:[facility] Start: 07-20-2023 End: 07-20-2023 Patient encounter procedure DO [place] Work Phone: [facility] [address] Work Phone: Start: 07-20-2023 End: 07-20-2023 ambulatory DO [place] Work Phone: [facility] Work Phone: Start: 07-10-2023 End: 07-10-2023 ambulatory Meet Harp MD Facility:[facility] Start: 06-16-2023 End: 06-17-2023 ambulatory UNKNOWN PROVIDER Facility:[facility] Start: 06-16-2023 End: 06-16-2023 Office outpatient visit 25 minutes Aliza Aguilar MD Work Phone: [facility] Orthoped[facility] Comment on above: Left hand pain (Prim maurisio Dx) Start: 06-16-2023 End: 06-16-2023 Subsequent hospital visit by physician [facility] Op Op X-Ray 1 Work Phone: [facility] Surg Ctr Diag Radiology Comment on above: Left hand pain Start: 02-07-2023 End: 02-08-[address] [place] Facility:[facility] Start: 01-27-2023 End: 01-28-[address] [place] Facility:[facility] Start: 01-23-2023 End: 02-22-2023 ambulatory SHAIKH Eduardo ROSS Facility:[facility] Start: 01-16-2023 Encounter for genera l adult medical examination without abnormal findings DR [facility] Start: 01-12-2023 End: 01-13-[address] [...] 05-09-2022 End: 05-09-2022 ambulatory Adilia Mederos Other [employer] Other Start: 05-09-2022 Office outpatient vi sit 15 minutes Adilia Mederos [facility] Start: 05-04-2022 End: 05-05-[address] [place] Facility:[facility] Start: 04-25-2022 End: 05-25-2022 ambulatory DUARTE H FAWWAD Facility:[facility] Start: 03-25-2022 End: 04-22-2022 ambulatory DUARTE Eduardo ROMEMILLICENTAbdifatah Facility:[facility] Start: 03-23-[address] [place] Fac ility:[facility] Start: 03-22-2022 End: 03-23-[address] [place] Facility:[facility] Start: 07-21-2021 Patient encounter procedure Lilian ramírez [facility] Start: 06-22-2021 Office [...] in Serum or Plasma Cholesterol [facility] Start: 06-12-2025 End: 06-12-2025 Patient encounter procedure 06/12/2025 1:05 PM EDT Office Visit [facility] [address] [place] [address] Ivy Saez, STUDENT TEACHING COORDINATOR-TRAVEL JOURNALIST [address] [place] [address] [facility] Start: 06-26-2024 Pneumococcal Vaccine : 65+ Years (3 of 3 - PPSV23 or PCV20) Pneumococcal Vaccine: 65+ Years (3 of 3 - PPSV23 or PCV20) [facility] Start: 06-11-2024 End: 06-11-2024 Patient encounter procedure 06/11/2024 1:05 PM EDT Office Visit [facility] [address] [place] [address] Ivy Saez, STUDENT TEACHING COORDINATOR-TRAVEL JOURNALIST [address] [place] [address] Arrived [facility] Comment on above: Arrived Start: 05-28-2024 Patient referral [facility] Work Phone: Start: 05-26-2024 Influenza vaccination Influenza Vacc ine (#1) [facility] Start: 08-25-2023 End: 08-25-2023 Patient encounter procedure 08/25/2023 11:30 AM EST Office Visit [address] Surg Ctr Orthopedics [address] [id number] Aliza Aguilar MD [address] [place] [address] [address] Surg Ctr Orthopedics Start: 07-20-2023 XR pre/post mri xray XR pre/post mri xray [facility] Start: 07-20-2023 [facility] Start: 07-20-2023 MR Wrist - left WO contrast [facility] Start: 07-20-2023 MRI of left wrist MR wrist LT wo con [facility] Start: 07-20-2023 MR Hand - left WO contrast [facility] Start: 07-20-2023 MRI of left hand MR hand LT wo con [facility] Start: 06-25-2023 Influenza vaccination Influenza Vacc ine (#1) [facility] Start: 06-16-2023 End: 06-16-2024 MR Wrist - left WO contrast MR WRIST LEFT W/O Imaging Routine Left hand pain Expected: 06/16/2023, Expires: 06/16/2024 [facility] Work Phone: Comment on above: Expected: 06/16/2023 , Expires: 06/16/2024 Start: 05-26-2023 COVID-19 Vaccine ( season) COVID-19 Vaccine ( season) [facility] Start: 05-26-2023 Influenza vaccination Influenza Vacc ine (#1) [facility] Start: 06-25-2022 Influenza vaccination Influenza Vacc ine (#1) [facility] Start: 06-08-2022 COVID-19 Vaccine (4 - Booster for Pfizer series) COVID-19 Vaccine (4 - Booster for Pfizer series) [facility] Start: 2019 RSV vaccine (optiona l 60+ years) RSV vaccine (optional 60+ years) [facility] Start: 09-25-2014 Annual wellness visit Annual W ellness Visit ([id number]) [facility] Start: 2009 Measurement of occul t blood in single stool specimen FIT [facility] Start: 2009 Screening for malign ant neoplasm of breast Mammography [facility] Start: 2009 Screening for malign ant neoplasm of colon CRC Screening [facility] Start: 02-11-2004 Cholesterol [Mass/volume] in Serum or Plasma Cholesterol [facility] Start: 02-11-2004 Screening for malign ant neoplasm of colon [facility] Start: 1999 [facility] for malign ant [facility]oplasm [facility] Start: 1989 Screening for malign ant neoplasm of cervix [facility] Start: 02-11-1980 Screening for malign ant neoplasm of cervix Pap Smear [facility] Start: 1977 Hepatitis C screening Hepatitis C An tibody [facility] Start: 1974 HIV screening HIV Test [facility] Start: 1959 COVID-19 Vaccine ( formulation) COVID-19 Vaccine ( formulation) [facility] Start: 1959 Screening for malign ant neoplasm of colon [facility] Patient referral [facility] Work Phone: Immunizations Immunization Date Immunization Notes Care Provider [facility] 08-11-2023 influenza, injectabl e, quadrivalent, preservative free Aliza Aguilar MD Work Phone: [facility] 08-11-2023 Respiratory syncytia l virus (RSV), vaccine, bivalent, protein subunit RSV prefusion F, diluent reconstituted, 0.5 mL, preservative free (FDZ=137) Aliza Aguilar MD Work Phone: [facility] 08-11-2023 influenza virus vacc ine, unspecified formulation Ivy Saez STUDENT TEACHING COORDINATOR-TRAVEL JOURNALIST Work Phone: [facility] 06-18-2022 influenza, injectabl e, quadrivalent, preservative free Aliza Aguilar MD Work Phone: [facility] 06-18-2022 influenza virus vacc ine, unspecified formulation Aliza Aguilar MD Work Phone: [facility] 02-05-2022 Pfizer Monovalent (1 2+ yrs) SARS-COV-2 (COVID-19) vaccine, mRNA, spike protein, LNP, pres. free, 30 mcg/0.3mL dose, betito-sucrose (KZN=872) Aliza Aguilar MD Work Phone: [facility] 08-11-2021 influenza, injectabl e, quadrivalent, preservative free Yesy Marci OT Work Phone: [facility] 08-11-2021 influenza virus vacc ine, unspecified formulation Yesy Marci OT Work Phone: [facility] 07-24-2020 zoster vaccine recombinant K dengryn Marci OT Work Phone: [facility] 07-11-2020 Influenza, injectabl e, Madin Christal Canine Kidney, preservative free, quadrivalent Yesy Marci OT Work Phone: [facility] 04-18-2020 zoster vaccine recombinant K athryn Marci OT Work Phone: [facility] 08-28-2019 Influenza, injectabl e, Madin Christal Canine Kidney, preservative free, quadrivalent Yesy Marci OT Work Phone: [facility] 07-01-2019 influenza, high dose seasonal, preservative-free Yesy Marci OT Work Phone: [facility] 06-25-2019 pneumococcal polysaccharide vaccine, 23 valent Yesy Marci OT Work Phone: [facility] 07-06-2018 influenza, injectabl e, quadrivalent, contains preservative Yesy Marci OT Work Phone: [facility] 06-04-2018 tetanus toxoid, redu karen diphtheria toxoid, and acellular pertussis vaccine, adsorbed Yesy Marci OT Work Phone: [facility] 08-19-2017 influenza, injectabl e, quadrivalent, preservative free Yesy Marci OT Work Phone: [facility] 08-09-2017 influenza, injectabl e, quadrivalent, contains preservative Yesy Marci OT Work Phone: [facility] 08-01-2016 influenza, injectabl e, quadrivalent, preservative free Yesy Marci OT Work Phone: [facility] 07-11-2015 influenza, injectabl e, madin christal canine kidney, preservative free Yesy Marci OT Work Phone: [facility] 07-11-2015 pneumococcal conjuga te vaccine, 13 valent Yesy Marci OT Work Phone: [facility] 08-13-2009 novel influenza-H1N1 -09, preservative-free, injectable Yesy Marci OT Work Phone: [facility] 07-17-2009 influenza virus vacc ine, unspecified formulation Yesy Marci OT Work Phone: [facility] 08-15-2008 influenza virus vacc ine, unspecified formulation Yesy Marci OT Work Phone: [facility] Payers Date Payer Category Payer Self-pay [id number] 2018 Unknown [id number] 2013 Medicare [id number] 1.13.56.2.7.3.67 [id number] 1959 [facility] [id number] 2.16.840.1.714876.19 1959 Medicare [id number] .16.840.1.313821.19 1959 Unknown [id number] 2.16.840.1.742331.3.579.2.593 1959 Unknown [id number] 2.16.840.1.015085.3.579.2.593 1959 Unknown [id number] 2.16.840.1.323438.3.579.2.593 1959 Unknown [id number] 2.16.840.1.785720.3.579.2.593 1959 Unknown [id number] 2.16.840.1.691232.3.579.2.593 1959 Unknown [id number] 2.16.840.1.000537.3.579.2.59 1959 Unknown [id number] 2.16.840.1.357998.3.579.2.593 1959 Unknown [id number] 2.16.840.1.480340.3.579.2.593 1959 Unknown [id number] 2.16.840.1.834158.3.579.2.593 1959 Unknown [id number] 2.16.840.1.658300.3.579.2.593 1959 Unknown [id number] 2.16.840.1.981842.3.579.2.593 1959 Unknown [id number] 2.16.840.1.652660.3.579.2.593 1959 Unknown [id number] 2.16.840.1.206612.3.579.2.593 1959 Unknown [id number] 2.16.840.1.937669.3.579.2.593 1959 Unknown [id number] 2.16.840.1.135656.3.579.2.593 1959 Unknown [id number] 2.16.840.1.340945.3.579.2.593 1959 Unknown [id number] 2.16.840.1.233911.3.579.2.593 1959 Unknown [id number] 2.16.840.1.320994.3.579.2.593 1959 Unknown [id number] 2.16.840.1.963109.3.579.2.593 1959 Unknown [id number] 2.16.840.1.245842.3.579.2.593 1959 Unknown [id number] 2.16.840.1.110260.3.579.2.732 1959 Unknown [id number] 2.16.840.1.603815.3.579.2.732 1959 Unknown [id number] 2.16.840.1.175006.3.579.2.732 1959 Unknown [id number] 2.16.840.1.302157.3.579.2.1286 1959 Unknown [id number] 2.16.840.1.527799.3.579.2.1286 1959 Unknown [id number] 2.16.840.1.033965.3.579.2.196 1959 Unknown [id number] 2.16.840.1.138026.3.579.2.196 1959 Unknown [id number] 2.16.840.1.492865.3.579.2.196 1959 Unknown [id number] 2.16.840.1.588560.3.579.2.196 1959 Unknown [id number] 2.16.840.1.119952.3.579.2.196 1959 Unknown [id number] 2.16.840.1.372009.3.579.2.196 1959 Unknown [id number] 2.16.840.1.084687.3.579.2.196 1959 Unknown [id number] 2.16.840.1.132202.3.579.2.196 1959 Unknown [id number] 2.16.840.1.014752.3.579.2.196 1959 Unknown [id number] 2.16.840.1.292227.3.579.2.196 1959 Unknown [id number] 2.16.840.1.500938.3.579.2.1259 Medicare Medicare Nonpatient [id number] Unknown [id number] 2.16.840.1.390801.3.579.2.531 Unknown [id number] 2.16.840.1.628105.3.579.2.531 Social History Date Type Detail Facility Unknown if ever smoked [employer] Other Start: 05-22-2023 End: 06-11-2024 Sex Assigned At [place] Other Start: 05-31-2019 End: 06-27-2024 Tobacco smoking status [facility] Ex-smoker [facility] History of tobacco use [facility] Start: 05-31-2019 End: 05-22-2023 Tobacco use and exposure Smokeless tobacco non-user [facility] Start: 04-07-2020 Alcohol intake Lifetime non-d han (finding) [facility] Start: 07-09-2019 History SDOH Alcohol Frequency 1 [facility] Start: 1960 Sex [facility]igned At Not on file [facility] Start: 1960 Sex Assigned At Female [facility] Start: 05-22-2023 Tobacco smoking stat us NYIS Never smoked tobacco [facility] Start: 05-22-2023 End: 06-11-2024 History of Social function [facility] Medical Equipment Procedure Code Equipment Code Equipment Origin al Text Equipment Identifier Dates [employer] 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 Skin Check Location: Patient requests a skin examination from the waist up Dermatologic history: no history of skin cancer, no family history of melanoma Last visit: 1 year ago Established patient Lesions: Location:arms Duration: month Quality: denies pain, denies itch, denies bleeding Modifying factors: none Associated symptoms: red spots Treatments: Patient reported PCP has assessed lesions on arms, patient reported PCP is confused. Patient reports she takes coumadin and WNL. Patient reports she gets coumadin levels tomorrow. All pertinent medical history, medications, and allergies were reviewed. General Exam: alert , oriented to person, place, and time , normal affect, well appearing Unaccompanied A complete skin exam was offered, pt declined. Areas not examined despite medical recommendation: From the waist down Scalp, Examined Head, Face Examined Neck Examined Chest Examined Back Examined Abdomen Examined Right arm Examined Left arm Examined Hands Examined Digits,nails: Examined Lymphatics: 1. Dermatofibroma right upper back Firm brown papule that dimples with lateral pressure. Discussed that these are benign scars on the skin. If lesion is changing/symptomatic, return to office to have lesion re-evaluated 2. Angioma of skin generalized Scattered garcia-red papule(s). The patient was informed that angiomas are benign growths on the the skin. No treatment is necessary. 3. Lentigines Scattered jiménez macules in sun-exposed areas. The patient was informed that lentigines are benign pigmented lesions that occur on sun-exposed and sun-damaged skin. No treatment is necessary. Recommended regular use of broad spectrum sunscreen SPF 30 or higher Related Medications Hydrocortisone Acetate 2.5 % cream Apply thin layer to affected areas twice a day as needed for flares 4. Garcia angioma Scattered garcia-red papule(s). The patient was informed that angiomas are benign growths on the the skin. No treatment is necessary. 5. Other nonthrombocytopenic purpura (CMS/HCC) (2) Left Forearm - Anterior, Right Forearm - Anterior Purplish colored macules Discussed condition with patient, purpura can be caused by thinning of the skin and trauma to the skin. Avoid trauma to the skin. Recommended applying ice to affected area, placing a barrier between the skin and the ice. No signs of infection. Notify office if any worsening despite treatment. Next Visit: 1 year skin exam documented in this encounter [facility] 08-25-2023 History of Presen t illness Narrative CC: Left hand and wrist pain Follow up after MRI done at [facility]. Patient Office Note or Post OP Note Name:Madan Perry Date: 08/25/2023 CC: left wrist pain at [facility] area No chief complaint on [...] patient. Aliza Aguilar MD Injection Procedure.[facility] 08/25/2023 [id number] Madan Perry The patient requested an injection [...] a dressing applied. documented in this encounter [facility] 06-16-2023 Note Addended by: ALIZA AGUILAR on: 06/16/2023 11:34 AM Modules accepted: Orders [facility] 06-16-2023 Miscellaneous Notes Addended by: ALIZA AGUILAR on: 06/16/2023 11:34 AM Modules accepted: Orders documented in this encounter [facility] 06-16-2023 History of Presen t illness Narrative [...] continues on coumadin. documented in this encounter [facility] 05-09-2022 Evaluation note Encounter Date Diagnosis Assessment [...] Xray that was ordered outpatient by PCP [facility] Other 08-10-2022 NotePROCEDURE: XR FOOT RT MIN [...] the patient needs blood work to evaluate [employer] Other 09-28-2021 Evaluation note* Encounter Date Diagnosis Assessment Notes Treatment Notes Treatment Clinical Notes May, Bee sting, undetermined intent, initial encounter (ICD-10 - T63.444A) May continue Xyzal and Benadryl as directed. [employer] Other Evaluation note* Diagnosis Left hand pain- Primary Pain in limb Left hand pain Pain in limb [facility] Diagnosis Left hand pain Pain in limb [facility]* Diagnosis Hand arthritis- Primary Unspecified arthropathy, hand [facility]* Diagnosis Onset Date Resolution Status Thoracic back pain acute [facility] Work Phone: Evaluation note* Diagnosis Dermatofibroma- Primary Benign neoplasm of skin, site unspecified Angioma of skin Lentigines Garcia angioma Other nonthrombocytopenic purpura (CMS/HCC) [facility] - Reported* Type Description Date [...] second t roseann Hospitalization History see above [facility] [facility] [employer] Other Hospital Discharge instructionsAmbulatory Orders* Referral to Speech/PT/OT (PT/OT/SP) Location: None Selected [facility] Work Phone: Summary Purpose Family History Relationship [...] Diagnoses Left hand pain Aliza Aguilar MD [address] [place], [place] [address] Referral ID Status Reason Start Date Expiration Date Visits Requested Visits Authorized [id number] Authorized Patient Preference 06/16/2023 06/16/2024 3 3 Comments Near home, [place], [place] Specialty Diagnoses / Procedures Referred By Contac t Referred To Contact Radiology Diagnoses Left hand pain Procedures MR WRIST LEFT W/O Aliza Aguilar MD [address] [place], [place] [facility] MRI [address] [place] [address] Referral ID Status Reason Start Date Expiration Date V isits Requested Visits Authorized [id number] Authorized 06/16/2023 06/15/2024 1 1 Specialty Diagnoses / Procedures Referred By Contac t Referred To Contact Radiology Diagnoses Left hand pain Procedures XR HAND LEFT 3 VIEWS [facility] [address] [address] [facility] DIAGNOSTIC RADIOLOGY [address] [place] [id number] Referral ID Status Reason Start Date Expiration Date Visits Re quested Visits Authorized [id number] Closed 06/16/2023 06/15/2024 1 1 Chief Complaint and Reason for Visit Chief Complaint median nerve karel krista Chief Complaint Unknown Chief Complaint Unknown DISC DEGENERATION-THORACIC AREA Chief Complaint DISC DEGENERATION-TH ORACIC AREA review MRI, F/u after PT Reason for Visit Thoracic back pain Additional Source Comments INFORMATION SOURCE (unrecogn ized section and content) DATE CREATED AUTHOR 05/27/2021 [facility] DATE CREATED AUTHOR AUTHOR'S ORGANIZ ATION 03/03/2023 [facility] DATE CREATED AUTHOR AUTHOR'S ORGANIZ ATION 08/28/2023 [facility] DATE CREATED AUTHOR AUTHOR'S ORGANIZ ATION 02/29/2024 [facility] DATE CREATED AUTHOR AUTHOR'S ORGANIZ ATION 03/16/2024 [facility] DATE CREATED AUTHOR AUTHOR'S ORGANIZ ATION 05/24/2024 [facility] DATE CREATED AUTHOR AUTHOR'S ORGANIZ ATION 06/13/2024 [facility] Special[facility] EPIC DATE CREATED AUTHOR AUTHOR'S ORGANIZ ATION 07/19/2024 [facility] REASON FOR VISIT (unrecogniz ed section and content) Reason Comments Hand/finger symptoms Specialty Diagnoses / Procedures Referred By Randi t Referred To Contact Radiology Diagnoses Left hand pain Procedures XR HAND LEFT 3 VIEWS [facility] [address] [place] [address] [facility] DIAGNOSTIC RADIOLOGY [address] [place] [address] [place] [address] Referral ID Status Reason Start Date Expiration Date Visits Re quested Visits Authorized [id number] Closed 06/16/2023 06/15/2024 1 1 Reason Comments Hand/finger symptoms Reason Comments Skin Check Suspicious Skin Lesion Care Teams (unrecognized sec tion and content) Sales Enablement Consultant Relationship Specialty Start Date End Date Yesy Covarrubias, OT [address] [facility] [place] [address] Occupational Therapist Occupational Therapy 06/30/20 Aliza Aguilar MD [address] [place] [address] Physician Orthopaedic Hand Service 06/30/20 Sales Enablement Consultant Relationship Specialty Start Date End Date Yesy Covarrubias OT [address] [place] [address] [place] [address] Occupational Therapist Occupational Therapy 06/30/20 Aliza Aguilar MD [address] [place] [address] Physician Orthopaedic Hand Service 06/30/20 Sales Enablement Consultant Relationship Specialty Start Date End Date Yesy Covarrubias OT [address] [facility] [place] [address] Occupational Therapist Occupational Therapy 06/30/20 Aliza Aguilar MD [address] [place] [address] Physician Orthopaedic Hand Service 06/30/20 Team Status: Active Member Role Status Dates [place] DO Primary Care Provider Active Team Status: Inactive Member Role Status Dates [place] DO Primary Care Provider Active Aliza Aguilar Attending Provider Active Sales Enablement Consultant Relationship Specialty Start Date End Date Marci Yesy, OT [address] [facility] [place] [address] Occupational Therapist Occupational Therapy 06/30/20 Aliza Aguilar MD [address] [place] [address] Physician Orthopaedic Hand Service 06/30/20 Sales Enablement Consultant Relationship Specialty Start Date End Date Marci Yesy, OT [address] [facility] [place] [address] Occupational Therapist Occupational Therapy 06/30/20 Aliza Aguilar MD [address] [place] [address] Physician Orthopaedic Hand Service 06/30/20 Team Status: [...] BE BASED ON THE PRIMARY CLINICAL RECORDS. [facility]. provides no warranty or guarantee of the accuracy or completeness of information in this document.
== END 2024-09-21 11:10 | disposition home or self-care (01) ==
PROVIDERS: PCP Family Medicine; Visit Provider Family Medicine
DX: M79.642 Pain in left hand (principal)
CPT/HCPCS: 73120

== ENCOUNTER 2024-09-26 01:49 | Outpatient (RCR) | payer BC, MEDICARE, SELFPAY | END 2024-10-25 14:31 | disposition home or self-care (01) | LOC: MM 01:49 | PROVIDERS: PCP Family Medicine; Visit Provider Internal Medicine | DX: Z51.81 Encounter for therapeutic drug level monitoring (principal); Z79.01 Long term (current) use of anticoagulants | CPT/HCPCS: 85610; G0463 ==

== ENCOUNTER 2024-10-07 21:01 | Emergency (ER) | payer BC, MEDICARE, SELFPAY ==
--- OUTSIDE RECORDS SUMMARY | 2024-10-07 21:16 | XMS_ITS | CCD ---
Author Organization [facility] CliniSyms Care Team Providers Care Fourchette Sewer Name Role Phone Adilia Mederos Unavailable Lilian Ferreira Unavailable Yesy Covarrubias OT Unavailable Aliza Aguilar MD Unavailable [phone], [address] TANK Aguillon Primary Care [...] OT, Yesy Unavailable Aliza Aguilar MD. Unavailable AlkeDO Tank Primary Care Provider Aliza Aguilar Attending Provider [phone] PROVIDER, UNKNOWN Admitting Unavailable PROVIDER, UNKNOWN Attending Unavailable PROVIDER, UNKNOWN Attending Unavailable PROVIDER, UNKNOWN Admitting Unavailable ALIZA AGUILAR. Referring Unavailable PROVIDER, UNKNOWN Admitting Unavailable PROVIDER, UNKNOWN Attending Unavailable Lake, Tank A Primary Care Provider DO Aliza Spencer Attending Provider [phone] Aliza Spencer Admitting Unavailable Aliza Spencer Attending Unavailable [place], Tank A Primary Care Unavailable Aliza Aguilar Admitting Unavailable JeffAliza Attending Unavailable [place], Tank A Primary Care [...] Acetaminophen / oxyCODONE Drug Allergy stomach upset [employer] Other (3 sources) Adhesive Tape Propensity to adverse reactions rash [employer] Other (9 sources) Cephalexin; Translations: [CEPHALEXIN] Drug Allergy 12-22-19 06 anaphylaxis, Unknown [facility] (13 sources) Erythromycin; Translations: [ERYTHROMYCIN] Drug Allergy 12-22-19 06 Other, Unknown [facility] (8 sources) Iodine; Translations: [iodine] Drug Allergy 01-31-20 13 rash [facility] Repository (7 sources) Latex; Translations: [LATEX] Propensity to adverse reactions 12-22-19 06 [facility] (7 sources) Penicillin G Benzathine; Translations: [penicillin G benzathine] Drug allergy 12-11-19 23 anaphylaxis [facility] (3 sources) Procaine Drug Allergy headaches [facility] [employer] Other (2 sources) Cephalexin; Translations: [Keflex] Drug Allergy 01-31-20 13 anaphylaxis [facility] Repository (1 source) Novocain Drug allergy Unknown [facility] [employer] Other (11 sources) Acetaminophen; Translations: [ACETAMINOPHEN] Drug [...] sources) Doxycycline; Translations: [DOXYCYCLINE] Drug Allergy 01-24-20 20 Itching [facility] (6 sources) Penicillin G; Translations: [...] Propensity to adverse reactions 09-03-20 13 Rash [facility] (14 sources) Erythromycin Base; Translations: [ERYTHROMYCIN BASE] Propensity to adverse reactions to drug 01-24-20 Other [facility] (10 sources) Iodides; Translations: [IODIDES] Propensity to adverse reactions to drug 10-31-19 14 Hives [facility] (6 sources) Other (Review Comments!); Translations: [OTHER (REVIEW COMMENTS!)] Propensity to adverse reactions to drug 07-22-20 19 [facility] Work Phone: (1 source) Ciprofloxacin Drug Allergy [facility] Repository (1 source) Iodine (And Iodine Containting Drugs) Drug allergy (disorder) 01-31-20 13 [facility] Repository (1 source) Latex Drug allergy (disorder) 01-31-20 13 [facility] Repository (5 sources) Morphine; Translations: [MORPHINE] Drug Allergy 10-21-19 14 vomiting [facility] Repository (1 source) Penicillins Drug allergy (disorder) 01-31-20 13 [facility] Repository (1 source) Sulfonamides (Antibiotic) Drug allergy (disorder) 01-31-20 13 [facility] Repository (1 source) Darvocet-N 100 Drug allergy (disorder) 01-31-20 13 [facility] Repository (1 source) E.E.S. Drug allergy (disorder) 01-31-20 13 [facility] Repository (4 sources) Adhesive Tape; Translations: [adhesive tape] Allergy to substance 12-11-19 rash [facility] (7 sources) oxyCODONE; Translations: [oxycodone] Drug Allergy 12-11-19 Unknown [facility] (4 sources) Procaine; Translations: [procaine] Drug Allergy 12-11-19 headaches [facility] (1 source) Cephalexin Drug Allergy 12-11-19 [facility] Repository (1 source) Doxycycline Drug Allergy 12-11-19 [facility] Repository (1 source) Latex Drug allergy (disorder) 12-11-19 [facility] Repository (1 source) Morphine Drug Allergy 12-11-19 [facility] Repository (1 source) Adhesive agent; Translations: [...] 0 Active take 1 capsule by mo [facility] every four hours Cdsvbrgcwu-GEAW-Fpcugdgq 50-325-40 MG 1 capsule as needed Orally [...] Active HYDROcodone-Acet aminophen 7.5-300 MG Orally Not-Taking [facility] Active acyclovir 400 mg oral tablet (10 [...] daily. 0 Active Flovent Diskus A ctive Baymlecwqrx-Nkbmtjqze-Fdqury er (2 sources) Anticholinergic, Corticosteroid, beta2-Adrenergic Agonist Start: 05-28-2024 Xsczwbeshfa-Krgkblwlj-Qyhgkd er (Trelegy Ellipta) 100-62.5-25 mcg blister with [...] by mouth daily. Followed [place] coumad[place] 0 Active take 1 tablet by [...] 4 mg/0.1 mL nasal liquid Instill 1 Inlet into one nostril (alternate sides) as needed. 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 [id number] Performed By: #### C BC/D3, ESRCRP, RHF, URCA #### [facility] [address] [place], [address] ABS BASOPHIL 0.06 x10^3ul Normal (0.00 - 0.16) [facility] Comment on above: Order Comment: FACIL ITY: [facility] [id number] Performed By: #### C BC/D3, ESRCRP, RHF, URCA #### [facility] [address] [place], [address] ABS BLAST 0.00 x10^3ul Normal (0.00 - 0.01) [facility] Comment on above: Order Comment: FACIL ITY: [facility] [id number] Performed By: #### C BC/D3, ESRCRP, RHF, URCA #### [facility] [address] [place], [address] ABS EOSINOPHIL 0.40 x10^3ul Normal (0.00 - 0.40) [place] [facility] Comment on above: Order Comment: FACIL ITY: [facility] [id number] Performed By: #### C BC/D3, ESRCRP, RHF, URCA #### [facility] [address] [place], [address] ABS IMMATURE GRANS 0.00 x10^3ul Normal (0.00 - 0.11) T [facility] Comment on above: Order Comment: FACIL ITY: [facility] [id number] Performed By: #### C BC/D3, ESRCRP, RHF, URCA #### [facility] [address] [place], [address] ABS LYMPHOCYTE 1.37 x10^3ul Normal (0.96 - 5.40) [place] [facility] Comment on above: Order Comment: FACIL ITY: [facility] [id number] Performed By: #### C BC/D3, ESRCRP, RHF, URCA #### [facility] [address] [place], [address] ABS METAMYELOCYTE 0.00 x10^3ul Normal (0.00 - 0.01) To [facility] Comment on above: Order Comment: [facility]IL ITY[facility] [id number] Performed By: #### C BC/D3, ESRCRP, RHF, URCA #### [facility] [address] [place], [address] ABS MONOCYTE 0.28 x10^3ul Normal (0.10 - 1.00) [facility] above: Order Comment: FACIL ITY: [facility] [id number] Performed By: #### C BC/D3, ESRCRP, RHF, URCA #### [facility] [address] [facility], [address] ABS MYELOYCYTE 0.00 x10^3ul Normal (0.00 - 0.01) [facility] above: Order Comment: FACIL ITY: [facility] [id number] Performed By: #### C BC/D3, ESRCRP, RHF, URCA #### [facility] [address] [place], [address] ABS NEUTROPHIL 3.47 x10^3ul Normal (1.50 - 7.00) [facility] above: Order Comment: FACIL ITY: [facility] [id number] Performed By: #### C BC/D3, ESRCRP, RHF, URCA #### [facility] [address] [place], [address] ABS PROMYELOCYTE 0.00 x10^3ul Normal (0.00 - 0.01) Zi [facility] Comment on above: Order Comment: FACIL ITY: [facility] [id number] Performed By: #### C BC/D3, ESRCRP, RHF, URCA #### [facility] [address] [place], [address] ABS REAC LYMPH 0.00 x10^3ul Normal (0.00 - 0.01) [place] [facility] Comment on above: Order Comment: FACIL ITY: [facility] [id number] Performed By: #### C BC/D3, ESRCRP, RHF, URCA #### [facility] [address] [place], [address] ANISOCYTOSIS SL High (NONE) [facility] Comment on above: Order Comment: FACIL ITY: [facility] [id number] Performed By: #### C BC/D3, ESRCRP, RHF, URCA #### [facility] [address] [place], [address] BANDS 2 % Normal () [facility] Comment on above: Order Comment: FACIL ITY: [facility] [id number] Performed By: #### C BC/D3, ESRCRP, RHF, URCA #### [facility] [address] [place], [address] BASOS 1 % Normal () [facility] Comment on above: Order Comment: FACIL ITY: [facility] [id number] Performed By: #### C BC/D3, ESRCRP, RHF, URCA #### [facility] [address] [place], [address] BLASTS 0 % Normal () [facility] Comment on above: Order Comment: FACIL ITY: [facility] [id number] Performed By: #### C BC/D3, ESRCRP, RHF, URCA #### [facility] [address] [place], [address] EOSINOPHIL 7 % Normal () [facility] Comment on above: Order Comment: FACIL ITY: [facility] [id number] Performed By: #### C BC/D3, ESRCRP, RHF, URCA #### [facility] [address] [place], [address] HYPOCHROMASIA NONE Normal (NONE) [facility] Comment on above: Order Comment: FACIL ITY: [facility] [id number] Performed By: #### C BC/D3, ESRCRP, RHF, URCA #### [facility] [address] [place], [address] IMMATURE GRANS (IG) 0 % Normal () [place] [facility] Comment on above: Order Comment: FACIL ITY: [facility] [id number] Performed By: #### C BC/D3, ESRCRP, RHF, URCA #### [facility] [address] [place], [address] LYMPS 24 % Normal () [facility] Comment on above: Order Comment: FACIL ITY: [facility] [id number] Performed By: #### C BC/D3, ESRCRP, RHF, URCA #### [facility] [address] [place], [address] MACROCYTES NONE Normal (NONE) [facility] Comment on above: Order Comment: FACIL ITY: [facility] [id number] Performed By: #### C BC/D3, ESRCRP, RHF, URCA #### [facility] [address] [place], [address] MCH 27.8 PG Normal (27.0 - 33.0) [facility] Comment on above: Order Comment: FACIL ITY: [facility] [id number] Performed By: #### C BC/D3, ESRCRP, RHF, URCA #### [facility] [address] [place], [address] MCHC 31.2 G/DL Normal (30.0 - 37.0) [facility] Comment on above: Order Comment: FACIL ITY: [facility] [id number] Performed By: #### C BC/D3, ESRCRP, RHF, URCA #### [facility] [address] [place], [address] MCV 88.9 fl Normal (81.0 - 99.0) [facility] Comment on above: Order Comment: FACIL ITY: [facility] [id number] Performed By: #### C BC/D3, ESRCRP, RHF, URCA #### [facility] [address] [place], [address] META 0 % Normal () [facility] Comment on above: Order Comment: FACIL ITY: [facility] [id number] Performed By: #### C BC/D3, ESRCRP, RHF, URCA #### [facility] [address] [place], [address] MICROCYTES NONE Normal (NONE) [facility] Comment on above: Order Comment: FACIL ITY: [facility] [id number] Performed By: #### C BC/D3, ESRCRP, RHF, URCA #### [facility] [address] [place], [address] MONOS 5 % Normal () [facility] Comment on above: Order Comment: FACIL ITY: [facility] [id number] Performed By: #### C BC/D3, ESRCRP, RHF, URCA #### [facility] [address] [place], [address] MYELO 0 % Normal () [facility] Comment on above: Order Comment: FACIL ITY: [facility] [id number] Performed By: #### C BC/D3, ESRCRP, RHF, URCA #### [facility] [address] [place], [address] NRBC/100 WBC 0 Normal (0 - 0) [facility] Comment on above: Order Comment: FACIL ITY: [facility] [id number] Performed By: #### C BC/D3, ESRCRP, RHF, URCA #### [facility] [address] [place], [address] OVALOCYTES NONE Normal (NONE) [facility] Comment on above: Order Comment: FACIL ITY: [facility] [id number] Performed By: #### C BC/D3, ESRCRP, RHF, URCA #### [facility] [address] [place], [address] PLT 361 x10^3ul Normal (130 - 400) [facility] Comment on above: Order Comment: FACIL ITY: [facility] [id number] Performed By: #### C BC/D3, ESRCRP, RHF, URCA #### [facility] [address] [place], [address] POIKILOCYTOSIS SL High (NONE) [facility] Comment on above: Order Comment: FACIL ITY: [facility] [id number] Performed By: #### C BC/D3, ESRCRP, RHF, URCA #### [facility] [address] [place], [address] POLYCHROMASIA SL High (NONE) [facility] Comment on above: Order Comment: FACIL ITY: [facility] [id number] Performed By: #### C BC/D3, ESRCRP, RHF, URCA #### [facility] [address] [place], [address] PROMYELOCYTES 0 % Normal () [facility] Comment on above: Order Comment: FACIL ITY: [facility] [id number] Performed By: #### C BC/D3, ESRCRP, RHF, URCA #### [facility] [address] [place], [address] RBC 4.97 x10^6ul Normal (4.20 - 5.40) [facility] Comment on above: Order Comment: FACIL ITY: [facility] [id number] Performed By: #### C BC/D3, ESRCRP, RHF, URCA #### [facility] [address] [place], [address] RDW-SD 48.4 fl Normal (37.0 - 49.0) [facility] Comment on above: Order Comment: FACIL ITY: [facility] [id number] Performed By: #### C BC/D3, ESRCRP, RHF, URCA #### [facility] [address] [place], [address] REACTIVE LYMPH 0 % Normal () [facility] Comment on above: Order Comment: FACIL ITY: [facility] [id number] Performed By: #### C BC/D3, ESRCRP, RHF, URCA #### [facility] [address] [place], [address] SCHISTOCYTES NONE Normal (NONE) [facility] Comment on above: Order Comment: FACIL ITY: [facility] [id number] Performed By: #### C BC/D3, ESRCRP, RHF, URCA #### [facility] [address] [place], [address] SEGS 61 % Normal () [facility] Comment on above: Order Comment: FACIL ITY: [facility] [id number] Performed By: #### C BC/D3, ESRCRP, RHF, URCA #### [facility] [address] [place], [address] TARGET CELLS NONE Normal (NONE) [facility] Comment on above: Order Comment: FACIL ITY: [facility] [id number] Performed By: #### C BC/D3, ESRCRP, RHF, URCA #### [facility] [address] [place], [address] WBC 5.69 x10^3ul Normal (3.80 - 10.60) [facility] Comment on above: Order Comment: FACIL ITY: [facility] [id number] Performed By: #### C BC/D3, ESRCRP, RHF, URCA #### [facility] [address] [place], [address] RF FACTORon 09-26-2024 RF FACTOR <9 Normal (0 - 12) [facility] Comment on above: Result Comment: RF F ACTOR = LESS THAN 9 IU/ML RF FACTOR MIN. DETECTION = 9 IU/ML. Performed By: #### C BC/D3, ESRCRP, RHF, URCA #### [facility] [address] [place], [address] SED RATE - CRPon 09-26-2024 CRP EXTENDED RANGE 8.02 MG/L High (0.00 - 5.00) Zi [facility] Comment on above: Performed By: #### C BC/D3, ESRCRP, RHF, URCA #### [facility] [address] [place], [address] SED RATE WEST. 18 MM/HR Normal (0 - 25) [facility] Comment on above: Performed By: #### C BC/D3, ESRCRP, RHF, URCA #### [facility] [address] [place], [address] URIC ACIDon 09-26-2024 Urate [Mass/Vol] 6.1 mg/dL Normal (2.5 - 6.2) [facility] Comment on above: Performed By: #### C BC/D3, ESRCRP, RHF, URCA #### [facility] [address] [place], [address] BASIC MET PANEL W/GFRon - Calcium [Mass/Vol] 9.5 mg/dL Normal (8.6 - 10.6) [facility]: Order Comment: FACIL ITY: [facility] [id number] Performed By: #### C HEM-B, MG #### [facility] [address] [place], [address] Chloride [Moles/Vol] 101 mmol/L Normal (98 - 107) [facility] Comment on above: Order Comment: FACIL ITY: [facility] [id number] Performed By: #### C HEM-B, MG #### [facility] [address] [place], [address] CO2 [Moles/Vol] 26 mmol/L Normal (22 - 30) [facility] Comment on above: Order Comment: FACIL ITY: [facility] [id number] Performed By: #### C HEM-B, MG #### [facility] [address] [place], [address] Creatinine [Mass/Vol] 0.57 mg/dL Normal (0.52 - 1.04) [facility] Comment on above: Order Comment: FACIL ITY: [facility] [id number] Performed By: #### C HEM-B, MG #### [facility] [address] [place], [address] GFR- AMER 128.8 ML/M1.7 Normal (60.0 - 140.1) [facility] Comment on above: Order Comment: FACIL ITY: [facility] [id number] Performed By: #### C HEM-B, MG #### [facility] [address] [place], [address] GFR-NON AFRIC-AMER 106.4 ML/M1.7 Normal (60.0 - 115.8) [facility] Comment on above: Order Comment: FACIL ITY: [facility] [id number] Performed By: #### C HEM-B, MG #### [facility] [address] [facility], [address] Glucose [Mass/Vol] 73 mg/dL Low (74 - 106) [facility] Comment on above: Order Comment: FACIL ITY: [facility] [id number] Performed By: #### C HEM-B, MG #### [facility] [address] [place], [address] Potassium [Moles/Vol] 5.4 mmol/L High (3.5 - 5.1) [facility] Comment on above[facility] Order Comment: FACIL ITY: [facility] [id number] Performed By: #### C HEM-B, MG #### [facility] [address] [place], [address] Sodium [Moles/Vol] 131 mmol/L Low (137 - 145) [facility] Comment on above: Order Comment: FACIL ITY: [facility] [id number] Performed By: #### C HEM-B, MG #### [facility] [address] [place], [address] Urea nitrogen [Mass/Vol] 9 mg/dL Normal (4 - 25) [facility] Comment on above: Order Comment: FACIL ITY: [facility] [id number] Performed By: #### C HEM-B, MG #### [facility] [address] [place], [address] MAGNESIUMon 07-17-2024 Magnesium [Mass/Vol] 2.1 mg/dL Normal (1.6 - 2.3) [facility] Comment on above: Performed By: #### C HEM-B, MG #### [facility] [address] [facility], [address] Venkat 02-28-2024 L Specimen: [id number] Received: 02/28/24 Status: DUDLEY Powell Num: [id number] Spec Type: Surgical Subm Dr: Aliza Spencer DO Tissues: A Stomach - Biopsy/Polyp (ANTRUM BX) B Stomach - Biopsy/Polyp (BX FUNDAL GLAND POLYP) C Esophagus Biopsy (DISTAL ESOPH BX) D Esophagus Biopsy (UPPER ESOPH BX) Procedures: HE/8, Gross/Micro L4/4 Age/ Patient Sex Location Account Attending Physician Madan Perry 64/F LABELL [id number] Aliza Spencer DO SPEC NUM: [id number] RECD: 02/28/24 STATUS: DUDLEY XIAODavid NUM: [id number] SUNSHINE: 02/28/[address]: Aliza Spencer DO ENTERED: 02/28/24 [facility] DR: Eben Newell SPEC TYPE: Surgical DEPT: [...] tissue fragment, entirely submitted in B1. Specimen: [id number] Received: 02/28/24 Status: DUDLEY Powell Num: [id number] Spec Type: Surgical Subm Dr: Aliza Spencer DO Tissues: A Stomach - Biopsy/Polyp (ANTRUM BX) B Stomach - Biopsy/Polyp (BX FUNDAL GLAND POLYP) C Esophagus Biopsy (DISTAL ESOPH BX) D Esophagus Biopsy (UPPER ESOPH BX) Procedures: HE/8, Gross/Micro L4/4 Patient: Madan Perry [id number] (Continued) Specimen: [id number] Received: 02/28/24 (Continued) Gross Description (Continued) Signed (signature on file) Steven Ruvalcaba MD 02/29/24 1501 Specimen: [id number] Received: 02/28/24 Status: DUDLEY Powell Num: [id number] Spec Type: Surgical Subm Dr: Aliza Spencer DO Tissues: A Stomach - Biopsy/Polyp (ANTRUM BX) B Stomach - Biopsy/Polyp (BX FUNDAL GLAND POLYP) C Esophagus Biopsy (DISTAL ESOPH BX) D Esophagus Biopsy (UPPER ESOPH BX) Procedures: Ratna, Gross/Micro L4/4 Patient: Madan Perry [id number] (Continued) Specimen: [id number] Received: 02/28/24 (Continued) Gross Description (Continued) C. Further labeled distal esophagus BX are 2 jiménez mucosal tissue fragments measuring 0.3 x 0.2 x 0.1 cm and 0.2 x 0.2 x 0.1 cm, entirely submitted in C1. D. Further labeled upper esophagus BX are 2 jiménez mucosal tissue fragments each measuring 0.2 x 0.1 x 0.1 cm, entirely submitted in D1. CPT Codes 91737v0 Specimen: [id number] Received: 02/28/24-1256 Status: DUDLEY Powell Num: [id number] Spec Type: Surgical Subm Dr: Aliza Spencer DO Tissues: A Stomach - Biopsy/Polyp (ANTRUM BX) B Stomach - Biopsy/Polyp (BX FUNDAL GLAND POLYP) C Esophagus Biopsy (DISTAL ESOPH BX) D Esophagus Biopsy (UPPER ESOPH BX) Procedures: Halina OBREGON/Alta L4/4 Patient: Madan Perry [id number] (Continued) Signed (signature on file) Steven Ruvalcaba MD 02/29/24 1509 Normal [facility] URINE CULTUREon 12-23-2023 Bacteria identified Cx Nom (U) FINAL Normal (. - .) [facility] Comment on above: Order Comment: MS CC FACILITY: [facility] [id number] Result Comment: HUA N CATCH MID-STREAM URINE > 10,000 BUT < 100,000 CFU/ML RESEMBLES A CONTAMINATED URINE COLLECTION Performed By: #### C -UR #### [facility] [address] [facility], [address] Progress Noteson 08-25-2023 Slag Worker Authentication Interface Message Text CC: Left hand and wrist pain Follow up after MRI done at [facility]. Normal [facility] Slag Worker Authentication Interface Message Text Patient Office Note or Post OP Note Name:Madan Perry Date: 08/25/2023 CC: [facility] wrist [facility] area No chief complaint on file. EXAM: [...] this patient. Aliza Aguilar MD Injection Procedure.[facility] 08/25/2023 [id number] Madan Perry The patient requested an injection [...] [facility] MR wrist LT wo holly 10-26-2 023 MR wrist LT wo con [facility] Main [place] [id number] MRI Report Signed Patient: Madan Perry MR#: [id number] : 1960 Acct:[id number] Age/Sex: 63 / F ADM Date: 07/20/23 Loc: [facility] Room: Type: [facility] Attending Dr: Aliza Aguilar Copies to: Aliza Aguilar Ordering Provider: Aliza Aguilar Date of Service: 07/20/23 MR/MR hand LT wo con: MEDIAN NERVE COMPRESSION ([id number]) MR/MR wrist LT wo con: MEDIAN NERVE COMPRESSION ([id number]) XR/XR pre/post mri xray: MEDIAN NERVE COMPRESSION [...] Jose Dial M.D.07/21/2023 7:38 PM Dictation Location: [place] [address] Transcribed By: [facility] 07/21/231937 Dictated By: Jose Dial DO 07/20/23 1525 Signed By: 07/21/231937 Normal [facility] Group Telephone Encounteron 2022 Slag Worker Authentication Interface Message Text Spoke with patient and scheduled. Normal [facility] Telephone Encounteron 2022 Slag Worker Authentication Interface Message Text Pt called as [...] she would need something sooner. Contact pt @[phone] Normal [facility] Addendum Noteon 06-16-2023 Slag Worker Authentication Interface Message Text Addended by: ALIZA AGUILAR on: 06/16/2023 11:34 AM Modules accepted: Orders Normal [facility] Progress Noteson 06-16-2023 Slag Worker Authentication Interface Message Text Patient Office Note [...] this patient. Aliza Aguilar MD Normal [facility] Slag Worker Authentication Interface Message Text CC: Left hand pain Pain Left wrist and hand; tingling to middle and ring fingers. Pt states ganglion which was removed has returned and is painful. CMC joint painful. 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 Normal [facility] XR HAND LEFT 3 VIEWSon 06-16 [...] findings. Left hand MACRO: None Normal [facility] XR Hand - left 3 Viewson EXAMINATION: XR HAND LEFT 3 VIEWSPRO/LT 06/16/2023 11:02 AM CLINICAL HISTORY: left hand pain ASSOCIATED DIAGNOSIS: Left hand pain ORDERING PROVIDER: ALIZA JEFF TECHNOLOGISTS NOTE: C/O hand pain and stiffness. [...] ViewsOrdere d By: Alberto Llanes on 06-16-2023 [facility] Work Phone: US DARNELL DOP LEG BILon [...] [place] Date: 2023-01-27 17:22 Normal [facility] CBC AUTO DIFFon 01-12-2023 BASO # 0.1 103/ul Normal 0.0-0.1 [facility] Comment on above: Performed By: #### C BC #### [facility] [address] [place] [address] Dr. Rocio Hernandez Basophils/100 WBC (Bld) 1.0 % Normal 0.2-2.0 [facility] Comment on above: Performed By: #### C BC #### [facility] [address] [place] [address] Dr. Rocio Hernandez EO # 0.2 103/ul Normal 0.0-0.7 [facility] Comment on above: Performed By: #### C BC #### [facility] [address] [place] [address] Dr. Rocio Hernandez Eosinophils/100 WBC (Bld) 2.9 % Normal 0.9-7.0 [facility] Comment on above: Performed By: #### C BC #### [facility] [address] [place] [address] Dr. Rocio Hernandez Erythrocyte distribution width (RBC) [Ratio] 14.1 % Normal 11.0-15.0 [facility] Comment on above: Performed By: #### C BC #### [facility] [address] [place] [address] Dr. Rocio Hernandez Hematocrit (Bld) [Volume fraction] 41.2 % Normal 36.0-48.0 [facility] Comment on above: Performed By: #### C BC #### [facility] [address] [place] [address] Dr. Rocio Hernandez Hemoglobin (Bld) [Mass/Vol] 13.6 g/dL Normal 12.0-16.0 [facility] Comment on above: Performed By: #### C BC #### [facility] [address] [place] [address] Dr. Rocio Hernandez IG # 0.01 10e3/ul Normal 0.00-0.03 [facility] Comment on above: Performed By: #### C BC #### [facility] [address] [place] [address] Dr. Rocio Hernandez IG % 0.2 % Normal 0.0-0.5 [facility] Comment on above: Performed By: #### C BC #### [facility] [address] [place] [address] Dr. Rocio Hernandez LYMPH # 1.3 103/ul Normal 1.2-3.8 [facility] Comment on above: Performed By: #### C BC #### [facility] [address] [place] [address] Dr. Rocio Hernandez Lymphocytes/100 WBC (Bld) 21.9 % Normal 20.5-60.0 [facility] Comment on above: Performed By: #### C BC #### [facility] [address] [place] [address] Dr. Rocio Hernandez MANUAL DIFF REQ NO Normal [facility] Comment on above: Performed By: #### C BC #### [facility] [address] [place] [address] Dr. Rocio Hernandez MCH (RBC) [Entitic mass] 28.4 pg Normal 26.7-34.0 [facility] Comment on above: Performed By: #### C BC #### [facility] [address] [place] [address] Dr. Rocio Hernandez MCHC (RBC) [Mass/Vol] 33.0 g/dL Normal 29.9-35.2 [facility] Comment on above: Performed By: #### C BC #### [facility] [address] [place] [address] Dr. Rocio Hernandez MCV (RBC) [Entitic vol] 86.0 fL Normal 81.0-99.0 [facility] Comment on above: Performed By: #### C BC #### [facility] [address] [place] [address] Dr. Rocio Hernandez MONO # 0.6 103/ul Normal 0.3-0.8 [facility] Comment on above: Performed By: #### C BC #### [facility] [address] [place] [address] Dr. Rocio Hernandez Monocytes/100 WBC (Bld) 10.3 % Normal 1.7-12.0 [facility] Comment on above: Performed By: #### C BC #### [facility] [address] [place] [address] Dr. Rocio Hernandez NEUT # 3.8 103/ul Normal 1.4-6.5 [facility] Comment on above: Performed By: #### C BC #### [facility] [address] [place] [address] Dr. Rocio Hernandez Neutrophils/100 WBC (Bld) 63.7 % Normal 43.0-75.0 [facility] Comment on above: Performed By: #### C BC #### [facility] [address] [place] [address] Dr. Rocio Hernandez Platelet mean volume (Bld) [Entitic vol] 9.0 fL Critically low 9.5-13.5 [facility] Comment on above: Performed By: #### C BC #### [facility] [address] [place] [address] Dr. Rocio Hernandez PLT 360 103/ul Normal 150-450 [facility] Comment on above: Performed By: #### C BC #### [facility] [address] [place] [address] Dr. Rocio Hernandez RBC 4.79 106/ul Normal 4.20-5.40 [facility] Comment on above: Performed By: #### C BC #### [facility] [address] [place] [address] Dr. Rocio Hernandez WBC 5.9 103/ul Normal 4.0-11.0 [facility] Comment on above: Performed By: #### C BC #### [facility] [address] [place] [address] Dr. Rocio Hernandez FREE T3on 01-12-2023 FREE T3 2.31 pg/mlL Normal 2.18-3.98 [facility] Comment on above: Performed By: #### T SH, CMP, LIPID, FT3 ####[facility] [address] [place] [address]Dr. Rocio Hernandez FREE T4on 01-12-2023 Free T4 [Mass/Vol] 1.21 ng/dL Normal 0.76-1.46 [facility] Comment on above: Performed By: #### B 12FOL, FT4 #### [facility] [address] [address] [address] Rocio Hernandez GLYCOHEMOGLOBIN A1Con 2022 ADA RECOMMENDATION SEE BELOW Normal [facility] Comment on above: Result Comment: ADA RECOMMENDED LIMIT 4.0 - 6.0 ADA THERAPEUTIC TARGET < 7.0 ACTION SUGGESTED > 7.0 Performed By: #### A 1C ####[facility] [address] [place] [address]DrClem Hernandez Glucose [Mass/Vol] 123 mg/dL Normal [facility] Comment on above: Performed By: #### A 1C ####[facility] [address] [place] [address]Dr. Rocio Hernandez HbA1c (Bld) [Mass fraction] 5.9 % Normal 4.5-6.2 [facility] Comment on above: Performed By: #### A 1C ####[facility] [address] [place] [address]Dr. Rocio Hernandez LIPID PROFILEon 01-12-2023 CHOL-HDL RATIO NORM SEE BELOW Normal [facility] Comment on above: Result Comment: 3.3 - 4.4 LOW RISK 4.4 - 7.1 AVERAGE RISK 7.1 - 11.0 MODERATE RISK >11.0 HIGH RISK Performed By: #### T SH, CMP, LIPID, FT3 #### [facility] [address] [address] [address] Rocio Hernandez Cholesterol [Mass/Vol] 203 mg/dL Critically high <=200 [facility] Comment on above: Performed By: #### T SH, CMP, LIPID, FT3 #### [facility] [address] [address] [address] Rocio Hernandez Cholesterol in HDL [Mass/Vol] 89 mg/dL Critically high 40-60 [facility] Comment on above: Performed By: #### T SH, CMP, LIPID, FT3 #### [facility] [address] [address] [address] Rocio Hernandez Cholesterol in LDL [Mass/Vol] 87.8 mg/dL Normal [facility] Comment on above: Performed By: #### T SH, CMP, LIPID, FT3 #### [facility] [address] [address] [address] Rocio Hernandez Cholesterol.total/C holesterol in HDL [Mass ratio] 2.3 {ratio} Normal [facility] Comment on above: Performed By: #### T SH, CMP, LIPID, FT3 #### [facility] [address] [address] [address] Rocio Hernandez HDL NORMAL > or = 60 mg/dl - LO W CARDIOVASCULAR RISK <40 mg/dl - HIGH CARDIOVASCULAR RISK Normal [facility] Comment on above: Performed By: #### T SH, CMP, LIPID, FT3 #### [facility] [address] [address] [address] Rocio Hernandez LDL CALC NORMAL SEE BELOW Normal [facility] Comment on above: Result Comment: <100 mg/dl OPTIMAL 100 - 129 mg/dl NEAR OR ABOVE OPTIMAL 130 - 159 mg/dl BORDERLINE HIGH 160 - 189 mg/dl HIGH >190 mg/dl VERY HIGH Performed By: #### T SH, CMP, LIPID, FT3 #### [facility] [address] [address] [address] Rocio Hernandez Triglyceride [Mass/Vol] 131 mg/dL Normal <=150 [facility] Comment on above: Performed By: #### T SH, CMP, LIPID, FT3 #### [facility] [address] [address] [address] Rocio Hernandez VLDL CALC 26.2 mg/dL Normal [facility] Comment on above: Performed By: #### T SH, CMP, LIPID, FT3 #### [facility] [address] [address] [address] Rocio Hernandez MICROALB CREAT RATIO RANDOMo n 01-12-2023 mALB <1.3 Normal <=30.0 [facility] Comment on above: Performed By: #### M CRR ####[facility] [address] [place], [place] [address]VrDr. Rocio Hernandez MALB CR RATIO 13.6 mg/g Normal 0.0-29.9 [facility] Comment on above: Performed By: #### M CRR ####[facility] [address] [place] [id number] Hernandez MALB CR RATIO RANGE SEE BELOW Normal [facility] Comment on above: Result Comment: NO M ICROALBUMINURIA 0-29 MG/G CLINICAL MICROALBUMINURIA 30-300 MG/G MACROALBUMINURIA >300 MG/G Performed By: #### M CRR ####[facility] [address] [place] [id number]. Rocio Hernandez URINE CREAT 95.84 mg/dL Normal 20.00-300.00 [facility] Comment on above: Performed By: #### M CRR ####[facility] [address] [place] [id number]. Rocio Hernandez PROF 14(COMP METB)on 023 Albumin [Mass/Vol] 3.8 g/dL Normal 3.4-5.0 [facility] Comment on above: Performed By: #### T SH, CMP, LIPID, FT3 #### [facility] [address] [address] [address] Rocio Hernandez Albumin/Globulin [Mass ratio] 0.9 {ratio} Normal [facility] Comment on above: Performed By: #### T SH, CMP, LIPID, FT3 #### [facility] [address] [address] [address] Rocio Hernandez ALP [Catalytic activity/Vol] 111 U/L Normal 46-116 [facility] Comment on above: Performed By: #### T SH, CMP, LIPID, FT3 #### [facility] [address] [address] [address] Rocio Hernandez ALT [Catalytic activity/Vol] 42 U/L Normal 14-59 [facility] Comment on above: Performed By: #### T SH, CMP, LIPID, FT3 #### [facility] [address] [address] [address] Rocio Hernandez Anion gap [Moles/Vol] 10.8 mmol/L Normal [facility] Comment on above: Performed By: #### T SH, CMP, LIPID, FT3 #### [facility] [address] [address] [address] Rocio Hernandez AST [Catalytic activity/Vol] 24 U/L Normal 15-37 [facility] Comment on above: Performed By: #### T SH, CMP, LIPID, FT3 #### [facility] [address] [place] [address] Dr. Rocio Hernandez Bilirubin [Mass/Vol] 0.4 mg/dL Normal 0.2-1.0 [facility] Comment on above: Performed By: #### T SH, CMP, LIPID, FT3 #### [facility] [address] [place] [address] Dr. Rocio Hernandez Calcium [Mass/Vol] 9.6 mg/dL Normal 8.5-10.1 [facility] Comment on above: Performed By: #### T SH, CMP, LIPID, FT3 #### [facility] [address] [place] [address] Dr. Rocio Hernandez Chloride [Moles/Vol] 93 mmol/L Critically low 98-107 [facility] Comment on above: Performed By: #### T SH, CMP, LIPID, FT3 #### [facility] [address] [place] [address] Dr. Rocio Hernandez CO2 [Moles/Vol] 31.2 mmol/L Normal 21.0-32.0 [facility] Comment on above: Performed By: #### T SH, CMP, LIPID, FT3 #### [facility] [address] [place] [address] Dr. oRcio Hernandez Creatinine [Mass/Vol] 1.02 mg/dL Normal 0.55-1.02 [facility] Comment on above: Performed By: #### T SH, CMP, LIPID, FT3 #### [facility] [address] [address] [address] Rocio Hernandez EGFR-AF [place] >60 Normal >=60 [facility] Comment on above: Performed By: #### T SH, CMP, LIPID, FT3 #### [facility] [address] [place] [address] Dr. Rocio Hernandez EGFR-NON AF [place] 55 mL/min/1.73m2 Critically low >=60 [facility] Comment on above: Performed By: #### T SH, CMP, LIPID, FT3 #### [facility] [address] [place] [address] Dr. Rocio Hernandez Globulin (S) [Mass/Vol] 4.4 g/dL Normal [facility] Comment on above: Performed By: #### T SH, CMP, LIPID, FT3 #### [facility] [address] [place] [address] Dr. Rocio Hernandez Glucose [Mass/Vol] 102 mg/dL Normal 74-106 [facility] Comment on above: Performed By: #### T SH, CMP, LIPID, FT3 #### [facility] [address] [place] [address] Dr. Rocio Hernandez Potassium [Moles/Vol] 4.0 mmol/L Normal 3.5-5.1 [facility] Comment on above: Performed By: #### T SH, CMP, LIPID, FT3 #### [facility] [address] [place] [address] Dr. Rocio Hernandez Protein [Mass/Vol] 8.2 g/dL Normal 6.4-8.[address] [facility] Comment on above: Performed By: #### T SH, CMP, LIPID, FT3 #### [facility] [address] [place] [address] Dr. Rocio Hernandez Sodium [Moles/Vol] 131 mmol/L Critically low 136-145 [facility] Comment on above: Performed By: #### T SH, CMP, LIPID, FT3 #### [facility] [address] [address] [address] Rocio Hernandez Urea nitrogen [Mass/Vol] 6.0 mg/dL Critically low 7.0-18.0 [facility] Comment on above: Performed By: #### T SH, CMP, LIPID, FT3 #### [facility] [address] [address] [address] Rocio Hernandez Urea nitrogen/Creatinine [Mass ratio] 5.9 mg/mg Normal [facility] Comment on above: Performed By: #### T SH, CMP, LIPID, FT3 #### [facility] [address] [address] [address] Rocio Hernandez TSHon 01-12-2023 TSH 5.647 uIU/mL Critically high 0.358-3.740 [facility] Comment on above: Performed By: #### T SH, CMP, LIPID, FT3 #### [facility] [address] [place] [address] Dr. Rocio Hernandez VIT B12 AND FOLATEon 023 Cobalamin (Vitamin B12) [Mass/Vol] 1189.0 pg/mL Critically high 193.0-986.0 [facility] Comment on above: Performed By: #### B 12FOL, FT4 #### [facility] [address] [place] [address] Dr. Rocio Hernandez FOLATE 27.30 ng/mL Normal 8.60-58.90 [facility] Comment on above: Performed By: #### B 12FOL, FT4 #### [facility] [address] [place] [address] Dr. Rocio Hernandez MG MAMM SCREEN 3D TANIA CADon 12-19-2022 MG MAMM SCREEN 3D TANIA CAD Patient: MADAN PERRY Exam Date: 12/19/2022 : 1960 Gender:F Ordering : DR [place] D.O. Admission #: [id number] Family : Order #: [id number] CLICK HERE TO VIEW EXAM RADIOLOGY REPORT [...] ovarian cancer at age 54. LOCATION: [facility] BREAST COMPOSITION: Scattered areas fibroglandular density. [...] Flores M.D. on 12/19/2022 at 11:19 Normal [facility] XR DEXA BONE DENSITYon 12-19 [...] by: LIZ FLORES Date: 2022-12-19 10:01 Normal [facility] FREE T3on 03-22-2022 FREE T3 2.43 pg/mlL Normal 2.18-3.98 [facility] Comment on above: Performed By: #### B MP, FT3, TSH ####[facility] [address] [place] [address]Dr. Rocio Hernandez FREE T4on 03-22-2022 Free T4 [Mass/Vol] 1.43 ng/dL Normal 0.76-1.[address] [facility] Comment on above: Performed By: #### F T4 ####[facility] [address] [place] [address]Dr. Rocio Hernandez PROF CHEM 8 (BAS METB)on Anion gap [Moles/Vol] 10.2 mmol/L Normal [facility] Comment on above: Performed By: #### B MP, FT3, TSH ####[facility] [address] [place], [place] [address]Dr. Rocio Hernandez Calcium [Mass/Vol] 8.8 mg/dL Normal 8.5-10.[address] [facility] Comment on above: Performed By: #### B MP, FT3, TSH ####[facility] [address] [place], [place] [address]Dr. Rocio Hernandez Chloride [Moles/Vol] 104 mmol/L Normal 98-107 [facility] Comment on above: Performed By: #### B MP, FT3, TSH ####[facility] [address] [place], [place] [address]Dr. Rocio Hernandez CO2 [Moles/Vol] 31.7 mmol/L Normal 21.0-32.0 [facility] Comment on above: Performed By: #### B MP, FT3, TSH ####[facility] [address] [place], [place] [address]Dr. Rocio Hernandez Creatinine [Mass/Vol] 0.96 mg/dL Normal 0.55-1.02 [facility] Comment on above: Performed By: #### B MP, FT3, TSH ####[facility] [address] [place], [place] [address]Dr. Rocio Hernandez EGFR-AF [place] >60 Normal >=60 [facility] Comment on above: Performed By: #### B MP, FT3, TSH ####[facility] [address] [address]Dr. Rocio Hernandez EGFR-NON AF [place] 59 mL/min/1.73m2 Critically low >=60 [facility] Comment on above: Performed By: #### B MP, FT3, TSH ####[facility] [address] [place] [address]Dr. Rocio Hernandez Glucose [Mass/Vol] 110 mg/dL Critically high 74-[address] [facility] Comment on above: Performed By: #### B MP, FT3, TSH ####[facility] [address] [place] [address]Dr. Rocio Hernandez Potassium [Moles/Vol] 2.9 mmol/L Critically low 3.5-5.1 [facility] Comment on above: Result Comment: TEST REPEATED CRITICAL VALUE VERIFIED Performed By: #### B MP, FT3, TSH ####[facility] [address] [place] [address]Dr. Rocio Hernandez Sodium [Moles/Vol] 141 mmol/L Normal 136-145 [facility] Comment on above: Performed By: #### B MP, FT3, TSH ####[facility] [address] [place] [address]Dr. Rocio Hernandez Urea nitrogen [Mass/Vol] 12.0 mg/dL Normal 7.0-18.0 [facility] Comment on above: Performed By: #### B MP, FT3, TSH ####[facility] [address] [place] [address]Dr. Kerendereck Hernandez Urea nitrogen/Creatinine [Mass ratio] 12.5 mg/mg Normal [facility] Comment on above: Performed By: #### B MP, FT3, TSH ####[facility] [address] [address]Dr. Kerendereck Hernandez TSHon 03-22-2022 TSH 0.137 uIU/mL Critically low 0.358-3.740 [facility] Comment on above: Performed By: #### B MP, FT3, TSH ####[facility] [address] [place], [place] [address]QbClem Hernandez Patient Letter FTMCon 2020 Patient Letter FT (Inserted Image. Wilda ble to display) May 26, 2021 MADAN PERRY [address] [place] [address] MADAN PERRY 1960 Dear Madan, This is a SECOND ATTEMPT to remind you that you are due for an appointment with [facility]. Please contact our office at [phone] to schedule an appointment at your earliest convenience. Thank you, [facility] Reminderson 05-26-2021 Reminders - From: Jane Onofre To: [facility] - Reminders/Recalls; Sent: 01/18/2021 12:33:31 EDT Show up: 04/25/2021 12:33:00 EDT Subject: Ambulatory Reminder Due Date/Time: 06/09/2021 12:33:00 EDT Reminder/Recall sara peace 5 year colon 06/09/2021 first recall letter second rcall letter Normal [facility] Patient Letter FTon 2020 Patient Letter FT (Inserted Image. Wilda ble to display) May 05, 2021 MADAN PERRY [address] [facility] [place] [address] MADAN PERRY 1960 Dear Madan, This is a reminder that you are due for an appointment with [facility]. Please contact our office at [phone] to schedule an appointment at your earliest convenience. Thank you, [facility] Vital Signs Date Time Vital Sign Value Performing Clinician Facility 06-27-2024 12:50-0400 Body height 161.29 cm [facility] 06-27-2024 12:50-0400 Body mass index (BMI) [Ratio] 27 kg/m2 [facility] 06-27-2024 12:50-0400 Body weight 70.3 kg [facility] 05-28-2024 13:19-0400 Body height 161.29 cm [place] Work Phone: [facility] 05-28-2024 13:19-0400 Body mass index (BMI) [Ratio] 26.5 kg/m2 [place] Work Phone: [facility] 05-28-2024 13:19-0400 Body weight 69.11 kg DO [place] Work Phone: [facility] 05-09-2022 16:35-0400 Body height 161.29 cm Adilia Mederos Other [facility] Other 05-09-2022 16:35-0400 Body mass index (BMI) [Ratio] 25.63 kg/m2 Adilia Mederos Other [facility] Other 05-09-2022 16:35-0400 Body temperature 97.8 [degF] Adilia Mederos Other [facility] Other 05-09-2022 16:35-0400 Body weight 66.68 kg Adilia Mederos Other [facility] Other 05-09-2022 16:35-0400 Diastolic blood pressure 79 mm[Hg] Adilia Mederos Other [facility] Other 05-09-2022 16:35-0400 Respiratory rate 18 /min Adilia Mederos Other [facility] Other 05-09-2022 16:35-0400 SaO2% (BldA) [Mass fraction] 98 % Adilia Mederos Other [employer] Other 05-09-2022 16:35-0400 Systolic blood pressure 136 mm[Hg] Adilia Rosa M Other [employer] Other 07-21-2021 16:05-0400 Body height 161.29 cm Lilian Ferreira Other [employer] Other 07-21-2021 16:05-0400 Body mass index (BMI) [Ratio] 26.5 kg/m2 Lilian Ferreira Other [employer] Other 07-21-2021 16:05-0400 Body temperature 96.2 [degF] Lilian Ferreira Other [employer] Other 07-21-2021 16:05-0400 Body weight 68.95 kg Lilian Ferreira Other [employer] Other 07-21-2021 16:05-0400 Diastolic blood pressure 95 mm[Hg] Lilian Clarkmond Other [employer] Other 07-21-2021 16:05-0400 Respiratory rate 18 /min Lilian Hanna Other [employer] Other 07-21-2021 16:05-0400 SaO2% (BldA) [Mass fraction] 99 % Lilian Hanna Other [employer] Other 07-21-2021 16:05-0400 Systolic blood pressure 132 mm[Hg] Lilian Hanna Other [employer] Other 06-22-2021 14:20-0400 Body height 161.29 cm Adilia Rosa M Other [employer] Other 06-22-2021 14:20-0400 Body mass index (BMI) [Ratio] 25.98 kg/m2 Adilia Mederos Other [employer] Other 06-22-2021 14:20-0400 Body temperature 96.4 [degF] Adilia Mederos Other [employer] Other 06-22-2021 14:20-0400 Body weight 67.59 kg Adilia Mederos Other [employer] Other 06-22-2021 14:20-0400 Diastolic blood pressure Adilia Mederos Other [employer] Other 06-22-2021 14:20-0400 Respiratory rate 18 /min Adilia Mederos Other [employer] Other 06-22-2021 14:20-0400 SaO2% (BldA) [Mass fraction] 98 % Adilia Mederos Other [employer] Other 06-22-2021 14:20-0400 Systolic blood pressure 111 mm[Hg] Adilia Mederos Other [employer] Other Encounters Encounter Date Encounter Type Care Provider Facility Start: 06-27-2024 End: 06-27-2024 ambulatory [facility] Work Phone: Start: 06-27-2024 End: 06-27-2024 Patient encounter procedure [facility] Work Phone: Start: 06-11-2024 End: 06-11-2024 Yanivboo daren Saez CHAIR SPRING ASSEMBLER-ONCOLOGY ADMIN Work Phone: [facility] Start: 06-11-2024 End: 06-11-2024 Bamboo flowsheet Ivy Elliotter CHAIR SPRING ASSEMBLER-ONCOLOGY ADMIN Work Phone: [facility] Start: 06-11-2024 End: 06-11-2024 Office outpatient visit 15 minutes Ivy Elliotter CHAIR SPRING ASSEMBLER-ONCOLOGY ADMIN Work Phone: [facility] Comment on above: Dermatofibroma (Prim maurisio Dx); Angioma of skin; Lentigines; Garcia angioma; Other nonthrombocytopenic purpura ([facility]) Start: 06-11-2024 End: 06-11-2024 ambulatory IVY ELLIOTTER Not Available Start: 05-28-2024 End: 05-28-2024 ambulatory DO [place] Work Phone: [facility] Work Phone: Start: 05-28-2024 End: 05-28-2024 Patient encounter procedure DO [place] Work Phone: [facility] Work Phone: Start: 05-20-2024 End: 05-20-2024 ambulatory Meet Harp [facility] Start: 05-13-2024 End: 05-13-2024 ambulatory Meet Harp MD [facility] Start: 03-14-2024 End: 03-14-2024 ambulatory [facility] Start: 02-28-2024 End: 02-28-2024 ambulatory DO [place] Work Phone: [facility] Work Phone: Start: 02-28-2024 End: 02-28-2024 Departed Referred DO [place] Work Phone: [facility] Start: 02-20-2024 End: 02-20-2024 ambulatory [facility] Start: 01-15-2024 End: 01-15-2024 ambulatory Meet Harp MD Facility: [place] Start: 12-04-2023 End: 12-04-2023 ambulatory Meet Harp MD [facility] Start: 11-06-2023 End: 11-06-2023 ambulatory Meet Harp MD Facility:[facility] Start: 10-09-2023 End: 10-09-2023 ambulatory Meet Harp MD Facility:[facility] Start: 08-25-2023 End: 08-25-2023 ambulatory ALIZA AGUILAR Facility:[facility] Start: 08-25-2023 End: 08-25-2023 Office outpatient visit 15 minutes Aliza Aguilar MD Work Phone: [facility] [address] [place] [address] Ctr Orthopedics Comment on above: Hand arthritis (Prim maurisio Dx) Start: 08-21-2023 End: 08-21-2023 ambulatory Meet Harp MD Facility:[facility] Start: 08-19-2023 Letter encounter Yesy Covarrubias OT Work Phone: [facility] Start: 07-31-2023 End: 07-31-2023 ambulatory Meet Harp MD Facility:[facility] Start: 07-24-2023 End: 07-24-2023 ambulatory Meet Harp MD Facility:[facility] Start: 07-20-2023 End: 07-20-2023 Patient encounter procedure DO [place] Work Phone: [facility]-MRI [address] Work Phone: Start: 07-20-2023 End: 07-20-2023 ambulatory DO [place] Work Phone: [facility] Work Phone: Start: 07-10-2023 End: 07-10-2023 ambulatory Meet Harp MD Facility:[facility] Start: 06-16-2023 End: 06-17-2023 ambulatory UNKNOWN PROVIDER Facility:[facility] Start: 06-16-2023 End: 06-16-2023 Office outpatient visit 25 minutes Aliza Aguilar MD Work Phone: [facility] Ctr Orthopedics Comment on above: Left hand pain (Prim maurisio Dx) Start: 06-16-2023 End: 06-16-2023 Subsequent hospital visit by physician [facility] Op Op X-Ray 1 Work Phone: [facility] Diag Radiology Comment on above: Left hand pain Start: 02-07-2023 End: 02-08-[address] [place] Facility:[facility] Start: 01-27-2023 End: 01-28-[address] [place] Facility:[facility] Start: 01-23-2023 End: 02-22-2023 ambulatory SHAIKH Eduardo ROSS Facility:[facility] Start: 01-16-2023 Encounter for genera l adult medical examination without abnormal findings DR [place] [facility] Start: 01-12-2023 End: 01-13-[address] [place] Facility:[facility] Start: 01-12-2023 End: 01-13-2023 Encounter for general adult medical examination without abnormal findings DR [place] Facility:[facility] Start: 12-26-2022 End: 01-20-2023 ambulatory SHAIKH Eduardo ROSS Facility:[facility] Start: 12-19-2022 End: 12-20-[address] [place] Facility:[facility] Start: 11-23-2022 End: 12-23-2022 ambulatory SHAIKH Eduardo SMALLWOODWCHERELLE Facility:[facility]1 Start: 10-26-2022 End: 11-23-2022 ambulatory DUARTE H FAWWAD Facility:[facility] Start: 09-26-2022 End: 10-26-2022 ambulatory DUARTE H FAWWAD Facility:[facility]1 Start: 08-25-2022 End: 09-25-2022 ambulatory DUARTE H FAWMILLICENTD Facility:[facility]1 Start: 07-26-2022 End: 08-24-2022 ambulatory SHAIKH Eduardo ROSS Facility:[facility] Start: 06-26-2022 End: 07-25-2022 ambulatory SHAIKH Eduardo CLDavidCHERELLE Facility:[facility] Start: 06-20-2022 End: 06-21-[address] [place] Facility:[facility] Start: 05-26-2022 End: 06-25-2022 ambulatory SHAIKH Eduardo MARTELLAbdifatah Facility:[facility] Start: 05-13-2022 Letter encounter Yesy Covarrubias OT Work Phone: [facility] Start: 05-09-2022 End: 05-09-2022 ambulatory Adilia Mederos Other [employer] Other Start: 05-09-2022 Office outpatient vi sit 15 minutes Adilia Mederos [facility] Start: 05-04-2022 End: 05-05-[address] [place] Facility:[facility] Start: 04-25-2022 End: 05-25-2022 ambulatory SHAIKH Eduarod MARTELLAbdifatah Facility:[facility] Start: 03-25-2022 End: 04-22-2022 ambulatory DUARTE H CLDavidCHERELLE Facility:[facility] Start: 03-23-[address] [place] Fac ility:[facility] Start: 03-22-2022 End: 03-23-[address] [place] Facility:[facility] Start: 07-21-2021 Patient encounter procedure Lilian ramírez [facility] Start: 06-22-2021 Office outpatient vi sit 15 minutes Adiliamichi Mederos [facility] Procedures Date Procedure Procedure Detail Performing Clinician Start: 09-26-2024 Blood count hemoglobin Comment on above: Order Comment: FACIL ITY: [facility] - SECOR [id number] Performed By: #### C BC/D3, ESRCRP, RHF, URCA #### [facility] [address] [place], [address] Start: 08-25-2023 Injection 1 tendon sheath/ligament aponeurosis Aliza Aguilar MD Work Phone: Start: 06-16-2023 Radex hand minimum 3 views Aliza Aguilar MD Work Phone: Plan of Treatment Date Care Activity Detail Author Start: 06-04-2028 Tetanus vaccination Tetanus (T d or Tdap) Booster [facility] Start: 01-13-2028 Cholesterol [Mass/volume] in Serum or Plasma Cholesterol [facility] Start: 06-12-2025 End: 06-12-2025 Patient encounter procedure 06/12/2025 1:05 PM EDT Office [facility] [address] [place] [address] Ivy Saez, CHAIR SPRING ASSEMBLER-ONCOLOGY ADMIN [address] [place] [address] [facility] Start: 06-26-2024 Pneumococcal Vaccine : 65+ Years (3 of 3 - PPSV23 or PCV20) Pneumococcal Vaccine: 65+ Years (3 of 3 - PPSV23 or PCV20) [facility] Start: 06-11-2024 End: 06-11-2024 Patient encounter procedure 06/11/2024 1:05 PM EDT Office Visit [facility] [address] [place] [address] Ivy Saez, CHAIR SPRING ASSEMBLER-ONCOLOGY ADMIN [address] [place] [address] Arrived [facility] Comment on above: Arrived Start: 05-28-2024 Patient referral [facility] Work Phone: Start: 05-26-2024 Influenza vaccination Influenza Vacc ine (#1) [facility] Start: 08-25-2023 End: 08-25-2023 Patient encounter procedure 08/25/2023 11:30 AM EST Office Visit [facility] [address] [place] [address] Aliza Aguilar MD [address] [place] [id number] [facility] Start: 07-20-2023 XR pre/post mri xray XR pre/post mri xray [facility] Start: 07-20-2023 [facility] Start: 07-20-2023 MR Wrist - left WO contrast [facility] Start: 07-20-2023 MRI of left wrist MR wrist LT wo con [facility] Start: 07-20-2023 MR Hand - left WO contrast [facility] Start: 07-20-2023 MRI of left hand MR hand LT wo con F [facility] Start: 06-25-2023 Influenza vaccination Influenza Vacc ine (#1) [facility] Start: 06-16-2023 End: 06-16-2024 MR Wrist - left WO contrast MR WRIST LEFT W/O Imaging Routine Left hand pain Expected: 06/16/2023, Expires: 06/16/2024 [facility] Work Phone: Comment on above: Expected: [...] Screening for malign ant neoplasm of breast [facility] Start: 1989 Screening for malign ant neoplasm of cervix [facility] Start: 02-11-1980 Screening for malign ant neoplasm of cervix Pap Smear [facility] Start: 1977 Hepatitis C screening Hepatitis C [facility] Start: 1974 HIV screening HIV Test [facility] Start: 1959 COVID-19 Vaccine ( formulation) COVID-19 Vaccine ( formulation) [facility] Start: 1960 Screening for malign ant neoplasm of colon [facility] Patient referral [facility] Work Phone: Immunizations Immunization Date Immunization Notes Care Provider [facility] 08-11-2023 influenza, injectabl e, quadrivalent, preservative free Aliza Aguilar MD Work Phone: [facility] 08-11-2023 Respiratory syncytia l virus (RSV), vaccine, bivalent, protein subunit RSV prefusion F, diluent reconstituted, 0.5 mL, preservative free (CGB=967) Aliza Aguilar MD Work Phone: [facility] 08-11-2023 influenza virus vacc ine, unspecified formulation Ivy Saez 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 free, 30 mcg/0.3mL dose, betito-sucrose (XSH=274) Aliza Aguilar MD Work Phone: [facility] 08-11-2021 influenza, injectabl e, quadrivalent, preservative free Yesy Marci OT Work Phone: [facility] 08-11-2021 influenza virus vacc ine, unspecified formulation Yesy Marci OT Work Phone: [facility] 07-24-2020 zoster vaccine recombinant K athryn Marci OT Work Phone: [facility] 07-11-2020 Influenza, injectabl e, Madin Christal Canine Kidney, preservative free, quadrivalent Yesy Marci OT Work Phone: [facility] 04-18-2020 zoster vaccine recombinant K dengryn Marci OT Work Phone: [facility] 08-28-2019 Influenza, injectabl e, Madin Christal Canine Kidney, preservative free, quadrivalent Yesy Marci OT Work Phone: [facility] 07-01-2019 influenza, high dose seasonal, preservative-free Yesy Marci OT Work Phone: [facility] 06-25-2019 pneumococcal polysaccharide vaccine, 23 valent Yesy [...] for Rehabilitation 07-11-2015 influenza, injectabl e, madin christal canine kidney, preservative free Yesy Marci OT Work Phone: [facility] 07-11-2015 pneumococcal conjuga te vaccine, 13 valent Yesy Covarrubias OT Work Phone: [facility] 08-13-2009 novel influenza-H1N1 -09, preservative-free, injectable Yesy Covarrubias OT Work Phone: [facility] 07-17-2009 influenza virus vacc ine, unspecified formulation Yesy Covarrubias OT Work Phone: [facility] 08-15-2008 influenza virus vacc ine, unspecified formulation Yesy Covarrubias OT Work Phone: [facility] Payers Date Payer Category Payer Self-pay [id number] 2018 Unknown [id number] 2013 Medicare [id number] 1.13.56.2.7.3.67 [id number] 1959 Blue Cross Blue Shield [id number] 2.16.840.1.471590.19 1959 Medicare [id number] 2.16.840.1.107534.19 1959 Unknown [id number] 2.16.840.1.100261.3.579.2.59 1959 Unknown [id number] 2.16.840.1.298021.3.579.2.593 1959 Unknown [id number] 2.16.840.1.283130.3.579.2.59 1959 Unknown [id number] 2.16.840.1.316276.3.579.2.593 1959 Unknown [id number] 2.16.840.1.186679.3.579.2.59 1959 Unknown [id number] 2.16.840.1.560304.3.579.2.593 1959 Unknown [id number] 2.16.840.1.811794.3.579.2.593 1959 Unknown [id number] 2.16.840.1.716946.3.579.2.593 1959 Unknown [id number] 2.16.840.1.191935.3.579.2.593 1959 Unknown [id number] 2.16.840.1.997344.3.579.2.593 1959 Unknown [id number] 2.16.840.1.611390.3.579.2.593 1959 Unknown [id number] 2.16.840.1.103742.3.579.2.593 1959 Unknown [id number] 2.16.840.1.909328.3.579.2.59 1959 Unknown [id number] 2.16.840.1.018370.3.579.2.593 1959 Unknown [id number] 2.16.840.1.865726.3.579.2.593 1959 Unknown [id number] 2.16.840.1.197897.3.579.2.593 1959 Unknown [id number] 2.16.840.1.594912.3.579.2.593 1959 Unknown [id number] 2.16.840.1.367305.3.579.2.593 1959 Unknown [id number] 2.16.840.1.354442.3.579.2.593 1959 Unknown [id number] 2.16.840.1.528212.3.579.2.593 1959 Unknown [id number] 2.16.840.1.585066.3.579.2.732 1959 Unknown [id number] 2.16.840.1.145727.3.579.2.732 1959 Unknown [id number] 2.16.840.1.720805.3.579.2.732 1959 Unknown [id number] 2.16.840.1.932729.3.579.2.1286 1959 Unknown [id number] 2.16.840.1.382128.3.579.2.1286 1959 Unknown [id number] 2.16.840.1.652408.3.579.2. 1959 Unknown [id number] 2.16.840.1.291657.3.579.2. 1959 Unknown [id number] 2.16.840.1.752683.3.579.2.196 1959 Unknown [id number] 2.16.840.1.592534.3.579.2. 1959 Unknown [id number] 2.16.840.1.399919.3.579.2.196 1959 Unknown [id number] 2.16.840.1.130608.3.579.2. 1959 Unknown [id number] 2.16.840.1.835390.3.579.2.196 1959 Unknown [id number] 2.16.840.1.773600.3.579.2. 1959 Unknown [id number] 2.16.840.1.324721.3.579.2. 1959 Unknown [id number] 2.16.840.1.549804.3.579.2. 1959 Unknown [id number] 2.16.840.1.994609.3.579.2.1259 Medicare Medicare Nonpatient [id number] Unknown [id number] 2.16.840.1.686720.3.579.2.531 Unknown [id number] 2.16.840.1.797894.3.579.2.531 Social History Date Type Detail Facility Unknown if ever smoked [facility] [employer] Other Start: 05-22-2023 End: 06-11-2024 Sex Assigned At [facility] [employer] Other Start: 05-31-2019 End: 06-27-2024 Tobacco smoking status NHIS Ex-smoker [facility] History of tobacco use [facility] sm[facility] Start: 05-31-2019 End: 05-22-2023 Tobacco use and exposure Smokeless tobacco non-user [facility] Start: 04-07-2020 Alcohol intake Lifetime non-d han (finding) [facility] Start: 07-09-2019 History SDOH Alcohol Frequency 1 [facility] Start: 1960 Sex Assigned At Not on file [facility] Start: 1960 Sex Assigned At Female F [facility] Start: 05-22-2023 Tobacco smoking stat us [facility] Never smoked tobacco [facility] Start: 05-22-2023 End: 06-11-2024 History of Social function [facility] Medical Equipment Procedure Code Equipment Code Equipment Origin al Text Equipment Identifier Dates Minneola 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 Patient Office Note or Post OP Note Name:Madan Perry Date: 08/25/2023 CC: [facility] wrist [facility] area No chief complaint on file. EXAM: [...] this patient. Aliza Aguilar MD Injection Procedure.[facility] 08/25/2023 [id number] Madan Perry The patient requested an injection [...] Xray that was ordered outpatient by PCP [employer] Other 08-10-2022 NotePROCEDURE: XR FOOT RT MIN 3 VIEWS COMPARISON: None. HISTORY: Pain in right foot FINDINGS: BONES:No fracture, acute abnormality, or significant arthropathy. Mild enthesopathic spurring of the calcaneus at the Achilles insertion SOFT TISSUES:Negative. No visible soft tissue swelling. EFFUSION:None visible. OTHER: Negative. IMPRESSION: No acute abnormality Electronically authenticated by: MARTINEZ HARVEY Date: 2022-05-04 16:22[facility]10-27-2021 Evaluation note* Encounter Date Diagnosis Assessment Notes Treatment Notes Treatment Clinical Notes Jun, Swelling of left elbow (ICD-10 - M25.422) Jun, Other Patient refe rred to the ER due to swelling, ecchymosis, pain of her left elbow with no known injury. It is felt the patient needs blood work to evaluate [employer] Other 09-28-2021 Evaluation note* Encounter Date Diagnosis Assessment Notes Treatment Notes Treatment Clinical Notes May, Bee sting, undetermined intent, initial encounter (ICD-10 - T63.444A) May continue Xyzal and Benadryl as directed. [employer] Other Evaluation note* Diagnosis Left hand pain- Primary Pain in limb Left hand pain Pain in [facility] Diagnosis Left hand pain Pain in limb [facility]* Diagnosis Hand arthritis- Primary Unspecified arthropathy, hand [facility] Diagnosis Onset Date Resolution Status Thoracic back pain acute [facility] Work Phone: Evaluation note* Diagnosis Dermatofibroma- [...] second t roseann Hospitalization History see above [employer] Other Hospital Discharge instructionsAmbulatory Orders* Referral to Speech/PT/OT (PT/OT/SP) Location: None [facility] Work Phone: Summary Purpose Family History [...] Diagnoses Left hand pain Aliza Aguilar MD [address] [place] [address] Referral ID Status Reason Start Date Expiration Date Visits Requested Visits Authorized [id number] Authorized Patient Preference 06/16/2023 06/16/2024 3 3 Comments Near home, [employer], [place] Specialty Diagnoses / Procedures Referred By Randi cardona Referred To Contact Radiology Diagnoses Left hand pain Procedures MR WRIST LEFT W/O Aliza Aguilar MD [address] [place] [address] S MRI [address] [place] [address] Referral ID Status Reason Start Date Expiration Date V isits Requested Visits Authorized [id number] Authorized 06/16/2023 06/15/2024 1 1 Specialty Diagnoses / Procedures Referred By Contac t Referred To Contact Radiology Diagnoses Left hand pain Procedures XR HAND LEFT 3 VIEWS [facility] [address] [place], [place] [id number] [facility]OLOGY [address] [place] [address] Referral ID Status Reason Start Date Expiration Date Visits Re quested Visits Authorized [id number] Closed 06/16/2023 06/15/2024 1 1 Chief Complaint and Reason for Visit Chief Complaint median nerve karel krista Chief Complaint Unknown Chief Complaint Unknown DISC DEGENERATION-THORACIC AREA Chief Complaint DISC DEGENERATION-TH ORACIC AREA review MRI, F/u after PT Reason for Visit Thoracic back pain Additional Source Comments INFORMATION SOURCE (unrecogn ized section and content) DATE CREATED AUTHOR 05/27/2021 [facility] DATE CREATED AUTHOR AUTHOR'S ORGANIZ ATION 03/03/2023 [facility] DATE CREATED AUTHOR AUTHOR'S ORGANIZ ATION 08/28/2023 [facility] DATE CREATED AUTHOR AUTHOR'S ORGANIZ ATION 02/29/2024 [facility] DATE CREATED AUTHOR AUTHOR'S ORGANIZ ATION 03/16/2024 [facility] DATE CREATED AUTHOR AUTHOR'S ORGANIZ ATION 05/24/2024 [facility] DATE CREATED AUTHOR AUTHOR'S ORGANIZ ATION 06/13/2024 [facility] Special[facility] EPIC DATE CREATED AUTHOR AUTHOR'S ORGANIZ ATION 10/03/2024 [facility] REASON FOR VISIT (unrecogniz ed section and content) Reason Comments Hand/finger symptoms Specialty Diagnoses / Procedures Referred By Contac t Referred To Contact Radiology Diagnoses Left hand pain Procedures XR HAND LEFT 3 VIEWS [facility] [address] [place], [place] [id number] [facility] [address] [facility] [address] [place] [id number] Referral ID Status Reason Start Date Expiration Date Visits Re quested Visits Authorized [id number] Closed 06/16/2023 06/15/2024 1 1 Reason Comments Hand/finger symptoms Reason Comments Skin Check Suspicious Skin Lesion Care Teams (unrecognized sec tion and content) 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 Start Date End Date Yesy Covarrubias, OT [address] [place] [address] Occupational Therapist Occupational Therapy 06/30/20 Aliza Aguilar MD [address] [place] [address] Physician Orthopaedic Hand Service 06/30/20 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 Specialty Start Date End Date Yesy Covarrubias, OT [address] [place] [address] [place] [address] Occupational Therapist Occupational Therapy 06/30/20 Aliza Aguilar MD [address] [place] [address] Physician Orthopaedic Hand Service 06/30/20 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 Specialty Start Date End Date Yesy Covarrubias OT [address] [place] [address] [place] [address] Occupational Therapist Occupational Therapy 06/30/20 Aliza Aguilar MD [address] [place] [address] Physician Orthopaedic Hand Service 06/30/20 Team Status: Active Member Role Status Dates [place] , DO Primary Care Provider Active Team Status: Inactive Member Role Status Dates [place] , DO Primary Care Provider Active Aliza Aguilar Attending Provider Active 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 [facility] [facility]. provides no warranty or guarantee of the accuracy or completeness of information in this document.
[2024-10-07 21:41] VITALS: BP 160/93; PULSE 97; TEMP 36.8; O2SAT 95; BMI 27.3
--- NOTE | 2024-10-07 22:26 | CT_ITS ---
The [address] [address] Patient Name: MADAN PERRY MRN: [id number] date: 1960 Sex: F Assigned Patient Location: ER Current Patient Location: ER Accession/Order Number: [id number] Exam Date: 10/07/2024 22:55 Report Date: 10/07/2024 23:39 At the request of: ABEBA MARKER Procedure: CT head/brain wo con INDICATION: 64 years old; Female. Closed head trauma status post fall. Patient taking Coumadin. TECHNIQUE: CT Head (ax/cor/sag reformats). Ionizing radiation dose reduced via iterative reconstruction/FBP blend and body size kV/mA adjustment. Comparison: None FINDINGS: POSTOPERATIVE CHANGES: None. BRAIN PARENCHYMA: No intraparenchymal or extra-axial hemorrhage. No mass effect. No midline shift or herniation. Normal dietz/white differentiation. VENTRICLES/EXTRA-AXIAL SPACES: Normal for patient's age. SINUSES/MASTOIDS: Please see the facial bone portion of this report for evaluation the paranasal sinuses. The mastoids and middle ears are clear. MSK: No displaced or depressed calvarial fracture. There is supraorbital soft tissue swelling present bilaterally, projecting greater to the left than the right. OTHER: No hyperdense intraluminal thrombus. Vascular calcification is present. TECHNIQUE: CT of the facial bones was performed. IV contrast: None. Axial, coronal, sagittal reformats were created and reviewed. Dose reduction techniques were achieved by using automated exposure control and/or adjustment of mA and/or kV according to patient size and/or use of iterative reconstruction technique. COMPARISON: None FINDINGS: FRONTAL BONES: SUPRAORBITAL SOFT TISSUES: Supraorbital soft tissue swelling bilaterally projecting greater to the left than the right. ORBITS: Globes: Normal without proptosis or evidence of disruption or intraocular foreign body. Retrobulbar fat: normal without mass or hematoma. Extraocular Muscles: Normal and symmetric without prolapse or evidence of entrapment. Optic Nerves: Normal without mass-effect or evidence of disruption. Preseptal Soft Tissues: Mild preseptal soft tissue swelling on the left. Ibarra: No orbital wall fracture or bony dehiscence is present. MAXILLA AND MANDIBLE: Maxillary and buccal soft tissues: Normal without swelling, laceration or foreign body. Maxillary bones: The patient is edentulous in the maxilla. No maxillary fracture is present. Mandible: There are artifacts from dental work. Several missing teeth. No alveolar ridge fracture. No mandibular body or neck fracture. Degenerative change in the TMJ, worse on the left than the right. Nasal bones and septum: No displaced nasal fracture. Nasal septum position of the midline. The maxillary spine is intact. PARANASAL SINUSES: Frontal: Clear. Ethmoid: Clear. Maxillary: Clear. Sphenoid: Clear. Zygomatic arch: Intact bilaterally. Pterygoid plates: Intact bilaterally. TECHNIQUE: CT imaging of the cervical spine was performed. IV contrast: None. Dose reduction techniques were achieved by using automated exposure control and/or adjustment of mA and/or kV according to patient size and/or use of iterative reconstruction technique. COMPARISON: None available. FINDINGS: POSTOPERATIVE CHANGES: None. ALIGNMENT: Nonspecific straightening of the normal cervical curve. Mild torticollis concave to the right. COMPRESSION FRACTURES: Generalized bony demineralization. No fracture or vertebral body collapse. No bone displacement. No asymmetric widening of the facets. PREVERTEBRAL SOFT TISSUES: Normal. CRANIOCERVICAL JUNCTION: There is a normal relationship of the occipital condyles, lateral masses of C1, and articular surfaces of C2. The base of the dens and body of C2 are intact. Is narrowing of the predental space with spurring arising from the anterior arch of C1. POSTERIOR FOSSA: The cerebellar tonsils are above the foramen magnum. Disc levels: C2-C3: Facet degeneration on the left. No disc herniation. Central canal patent. Neural foramina patent. C3-C4: Disc space narrowing. No disc herniation. Facet degeneration on the left. Central canal patent. Neural foramina patent. C4-C5: Disc space narrowing. Vertebral endplate degeneration. Endplate osteophyte formation. Anterior osteophytes. Uncovertebral joint degeneration and facet degeneration. Central canal patent. Mild right-sided foraminal stenosis. C5-C6: Narrowing. Broad-based central and left-sided disc osteophyte complex with mild central canal stenosis. Bulky bridging anterior osteophytes. Uncovertebral joint degeneration worse on the left than the right. Mild to moderate left-sided foraminal stenosis. C6-C7: Re: Artifacts. Facet degeneration the left. Central canal patent. Neural foramina patent. C7-T1: Beam hardening artifacts. Central canal patent. Neural foramina patent. UPPER THORACIC SPINE: At T1-T2, Beam hardening artifacts. Posterior ligament is calcification. Central canal patent. Neural foramina patent. OTHER: Emphysematous changes and chronic scarring in the visualized portion of the lung apices, worse on the left. Left-sided pleural thickening is present. The study is not optimized for complete region of the chest. Esophageal wall thickening. CT/CT head/brain wo con IMPRESSION: 1. No acute intracranial abnormality. No hemorrhage or mass effect. 2. Extracranial soft tissue swelling. No acute facial fracture. 3. Multilevel cervical spondylosis. No acute fracture. 4. Emphysematous changes and chronic scarring with pleural thickening in the visualized portion lung apices, worse on the left. 5. Esophageal wall thickening. Electronically authenticated by: ALIZA CLAROS Date: 10/07/2024 23:39
--- NOTE | 2024-10-07 22:26 | CT_ITS ---
The [address] [address] Patient Name: MADAN PERRY MRN: [id number] date: 1960 Sex: F Assigned Patient Location: ER Current Patient Location: Accession/Order Number: [id number] Exam Date: 10/07/2024 22:55 Report Date: 10/07/2024 23:39 At the request of: ABEBA MARKER Procedure: CT facial bones wo con INDICATION: 64 years old; Female. Closed head trauma status post fall. Patient taking Coumadin. TECHNIQUE: CT Head (ax/cor/sag reformats). Ionizing radiation dose reduced via iterative reconstruction/FBP blend and body size kV/mA adjustment. Comparison: None FINDINGS: POSTOPERATIVE CHANGES: None. BRAIN PARENCHYMA: No intraparenchymal or extra-axial hemorrhage. No mass effect. No midline shift or herniation. Normal dietz/white differentiation. VENTRICLES/EXTRA-AXIAL SPACES: Normal for patient's age. SINUSES/MASTOIDS: Please see the facial bone portion of this report for evaluation the paranasal sinuses. The mastoids and middle ears are clear. MSK: No displaced or depressed calvarial fracture. There is supraorbital soft tissue swelling present bilaterally, projecting greater to the left than the right. OTHER: No hyperdense intraluminal thrombus. Vascular calcification is present. TECHNIQUE: CT of the facial bones was performed. IV contrast: None. Axial, coronal, sagittal reformats were created and reviewed. Dose reduction techniques were achieved by using automated exposure control and/or adjustment of mA and/or kV according to patient size and/or use of iterative reconstruction technique. COMPARISON: None FINDINGS: FRONTAL BONES: SUPRAORBITAL SOFT TISSUES: Supraorbital soft tissue swelling bilaterally projecting greater to the left than the right. ORBITS: Globes: Normal without proptosis or evidence of disruption or intraocular foreign body. Retrobulbar fat: normal without mass or hematoma. Extraocular Muscles: Normal and symmetric without prolapse or evidence of entrapment. Optic Nerves: Normal without mass-effect or evidence of disruption. Preseptal Soft Tissues: Mild preseptal soft tissue swelling on the left. Ibarra: No orbital wall fracture or bony dehiscence is present. MAXILLA AND MANDIBLE: Maxillary and buccal soft tissues: Normal without swelling, laceration or foreign body. Maxillary bones: The patient is edentulous in the maxilla. No maxillary fracture is present. Mandible: There are artifacts from dental work. Several missing teeth. No alveolar ridge fracture. No mandibular body or neck fracture. Degenerative change in the TMJ, worse on the left than the right. Nasal bones and septum: No displaced nasal fracture. Nasal septum position of the midline. The maxillary spine is intact. PARANASAL SINUSES: Frontal: Clear. Ethmoid: Clear. Maxillary: Clear. Sphenoid: Clear. Zygomatic arch: Intact bilaterally. Pterygoid plates: Intact bilaterally. TECHNIQUE: CT imaging of the cervical spine was performed. IV contrast: None. Dose reduction techniques were achieved by using automated exposure control and/or adjustment of mA and/or kV according to patient size and/or use of iterative reconstruction technique. COMPARISON: None available. FINDINGS: POSTOPERATIVE CHANGES: None. ALIGNMENT: Nonspecific straightening of the normal cervical curve. Mild torticollis concave to the right. COMPRESSION FRACTURES: Generalized bony demineralization. No fracture or vertebral body collapse. No bone displacement. No asymmetric widening of the facets. PREVERTEBRAL SOFT TISSUES: Normal. CRANIOCERVICAL JUNCTION: There is a normal relationship of the occipital condyles, lateral masses of C1, and articular surfaces of C2. The base of the dens and body of C2 are intact. Is narrowing of the predental space with spurring arising from the anterior arch of C1. POSTERIOR FOSSA: The cerebellar tonsils are above the foramen magnum. Disc levels: C2-C3: Facet degeneration on the left. No disc herniation. Central canal patent. Neural foramina patent. C3-C4: Disc space narrowing. No disc herniation. Facet degeneration on the left. Central canal patent. Neural foramina patent. C4-C5: Disc space narrowing. Vertebral endplate degeneration. Endplate osteophyte formation. Anterior osteophytes. Uncovertebral joint degeneration and facet degeneration. Central canal patent. Mild right-sided foraminal stenosis. C5-C6: Narrowing. Broad-based central and left-sided disc osteophyte complex with mild central canal stenosis. Bulky bridging anterior osteophytes. Uncovertebral joint degeneration worse on the left than the right. Mild to moderate left-sided foraminal stenosis. C6-C7: Re: Artifacts. Facet degeneration the left. Central canal patent. Neural foramina patent. C7-T1: Beam hardening artifacts. Central canal patent. Neural foramina patent. UPPER THORACIC SPINE: At T1-T2, Beam hardening artifacts. Posterior ligament is calcification. Central canal patent. Neural foramina patent. OTHER: Emphysematous changes and chronic scarring in the visualized portion of the lung apices, worse on the left. Left-sided pleural thickening is present. The study is not optimized for complete region of the chest. Esophageal wall thickening. CT/CT facial bones wo con IMPRESSION: 1. No acute intracranial abnormality. No hemorrhage or mass effect. 2. Extracranial soft tissue swelling. No acute facial fracture. 3. Multilevel cervical spondylosis. No acute fracture. 4. Emphysematous changes and chronic scarring with pleural thickening in the visualized portion lung apices, worse on the left. 5. Esophageal wall thickening. Electronically authenticated by: ALIZA CLAROS Date: 10/07/2024 23:39
--- NOTE | 2024-10-07 22:27 | CT_ITS ---
The [address] [address] Patient Name: MADAN PERRY MRN: [id number] date: 1960 Sex: F Assigned Patient Location: ER Current Patient Location: Accession/Order Number: [id number] Exam Date: 10/07/2024 22:55 Report Date: 10/07/2024 23:39 At the request of: ABEBA MARKER Procedure: CT cervical spine wo con INDICATION: 64 years old; Female. Closed head trauma status post fall. Patient taking Coumadin. TECHNIQUE: CT Head (ax/cor/sag reformats). Ionizing radiation dose reduced via iterative reconstruction/FBP blend and body size kV/mA adjustment. Comparison: None FINDINGS: POSTOPERATIVE CHANGES: None. BRAIN PARENCHYMA: No intraparenchymal or extra-axial hemorrhage. No mass effect. No midline shift or herniation. Normal dietz/white differentiation. VENTRICLES/EXTRA-AXIAL SPACES: Normal for patient's age. SINUSES/MASTOIDS: Please see the facial bone portion of this report for evaluation the paranasal sinuses. The mastoids and middle ears are clear. MSK: No displaced or depressed calvarial fracture. There is supraorbital soft tissue swelling present bilaterally, projecting greater to the left than the right. OTHER: No hyperdense intraluminal thrombus. Vascular calcification is present. TECHNIQUE: CT of the facial bones was performed. IV contrast: None. Axial, coronal, sagittal reformats were created and reviewed. Dose reduction techniques were achieved by using automated exposure control and/or adjustment of mA and/or kV according to patient size and/or use of iterative reconstruction technique. COMPARISON: None FINDINGS: FRONTAL BONES: SUPRAORBITAL SOFT TISSUES: Supraorbital soft tissue swelling bilaterally projecting greater to the left than the right. ORBITS: Globes: Normal without proptosis or evidence of disruption or intraocular foreign body. Retrobulbar fat: normal without mass or hematoma. Extraocular Muscles: Normal and symmetric without prolapse or evidence of entrapment. Optic Nerves: Normal without mass-effect or evidence of disruption. Preseptal Soft Tissues: Mild preseptal soft tissue swelling on the left. Ibarra: No orbital wall fracture or bony dehiscence is present. MAXILLA AND MANDIBLE: Maxillary and buccal soft tissues: Normal without swelling, laceration or foreign body. Maxillary bones: The patient is edentulous in the maxilla. No maxillary fracture is present. Mandible: There are artifacts from dental work. Several missing teeth. No alveolar ridge fracture. No mandibular body or neck fracture. Degenerative change in the TMJ, worse on the left than the right. Nasal bones and septum: No displaced nasal fracture. Nasal septum position of the midline. The maxillary spine is intact. PARANASAL SINUSES: Frontal: Clear. Ethmoid: Clear. Maxillary: Clear. Sphenoid: Clear. Zygomatic arch: Intact bilaterally. Pterygoid plates: Intact bilaterally. TECHNIQUE: CT imaging of the cervical spine was performed. IV contrast: None. Dose reduction techniques were achieved by using automated exposure control and/or adjustment of mA and/or kV according to patient size and/or use of iterative reconstruction technique. COMPARISON: None available. FINDINGS: POSTOPERATIVE CHANGES: None. ALIGNMENT: Nonspecific straightening of the normal cervical curve. Mild torticollis concave to the right. COMPRESSION FRACTURES: Generalized bony demineralization. No fracture or vertebral body collapse. No bone displacement. No asymmetric widening of the facets. PREVERTEBRAL SOFT TISSUES: Normal. CRANIOCERVICAL JUNCTION: There is a normal relationship of the occipital condyles, lateral masses of C1, and articular surfaces of C2. The base of the dens and body of C2 are intact. Is narrowing of the predental space with spurring arising from the anterior arch of C1. POSTERIOR FOSSA: The cerebellar tonsils are above the foramen magnum. Disc levels: C2-C3: Facet degeneration on the left. No disc herniation. Central canal patent. Neural foramina patent. C3-C4: Disc space narrowing. No disc herniation. Facet degeneration on the left. Central canal patent. Neural foramina patent. C4-C5: Disc space narrowing. Vertebral endplate degeneration. Endplate osteophyte formation. Anterior osteophytes. Uncovertebral joint degeneration and facet degeneration. Central canal patent. Mild right-sided foraminal stenosis. C5-C6: Narrowing. Broad-based central and left-sided disc osteophyte complex with mild central canal stenosis. Bulky bridging anterior osteophytes. Uncovertebral joint degeneration worse on the left than the right. Mild to moderate left-sided foraminal stenosis. C6-C7: Re: Artifacts. Facet degeneration the left. Central canal patent. Neural foramina patent. C7-T1: Beam hardening artifacts. Central canal patent. Neural foramina patent. UPPER THORACIC SPINE: At T1-T2, Beam hardening artifacts. Posterior ligament is calcification. Central canal patent. Neural foramina patent. OTHER: Emphysematous changes and chronic scarring in the visualized portion of the lung apices, worse on the left. Left-sided pleural thickening is present. The study is not optimized for complete region of the chest. Esophageal wall thickening. CT/CT cervical spine wo con IMPRESSION: 1. No acute intracranial abnormality. No hemorrhage or mass effect. 2. Extracranial soft tissue swelling. No acute facial fracture. 3. Multilevel cervical spondylosis. No acute fracture. 4. Emphysematous changes and chronic scarring with pleural thickening in the visualized portion lung apices, worse on the left. 5. Esophageal wall thickening. Electronically authenticated by: ALIZA CLAROS Date: 10/07/2024 23:39
--- NOTE | 2024-10-07 22:48 | ED_ITS ---
HPI HPI - General Adult General Chief complaint: Wound/Laceration Stated complaint: FELL Time Seen by Provider: 10/07/24 21:44 History of Present Illness HPI narrative: This 64-year-old female who is on Coumadin due to her history of blood clots is brought to the emergency department by her . The patient states she lost her footing at home and face planted on the floor. She has a laceration at the bridge of her nose with nasal swelling and a 1.5 cm laceration over the left eyebrow with some contusions to the lateral aspect of her left lower lip. She also complains of some neck pain. There was no loss of consciousness. She states that she did not take her Coumadin today because she was busy with her granddaughter and forgot. She denies any chest pain or shortness of breath. She had moderate bleeding from her nose prior to arrival which has since subsided but there is still breathing from the laceration over the bridge of her nose. She has no focal neurologic weakness numbness or tingling. She does take [place] for pain. She does not know the date of her last tetanus shot Related Data Home Medications ?Medication ?Instructions ?Recorded ?Confirmed acyclovir 400 mg tablet 400 mg PO DAILY 06/16/23 05/13/24 amitriptyline 100 mg tablet 100 mg PO BEDTIME 06/16/23 05/13/24 aripiprazole 10 mg tablet 10 mg PO BEDTIME 06/16/23 05/13/24 atorvastatin 10 mg tablet 10 mg PO QDAY 06/16/23 05/13/24 biotin 10,000 mcg-keratin 100 mg 1 tab PO QDAY 06/16/23 05/13/24 tablet (Biotin Plus Keratin) mqgsaqifoy-vhzqxamvikjvf-fzxvnrmx 1 cap PO Q6H PRN pain 06/16/23 05/13/24 50 mg-300 mg-40 mg capsule cholecalciferol (vitamin D3) 50 50 mcg PO DAILY 06/16/23 05/13/24 mcg (2,000 unit) capsule (Vitamin D3) cyanocobalamin (vitamin B-12) 1,000 mcg IM .monthly 06/16/23 05/13/24 1,000 mcg/mL injection solution fremanezumab-vfrm 225 mg/1.5 mL 225 mg subcut .monthly 06/16/23 05/13/24 subcutaneous auto-injector (Ajovy) hydrochlorothiazide 12.5 mg tablet 12.5 mg PO QDAY 06/16/23 05/13/24 hydrocodone 5 mg-acetaminophen 325 1 tab PO TID PRN pain 06/16/23 05/02/24 mg tablet hydroxyzine HCl 25 mg tablet 25 mg PO BEDTIME 06/16/23 05/13/24 levothyroxine 125 mcg tablet 125 mcg PO .every morning 06/16/23 05/13/24 linaclotide 72 mcg capsule 145 mcg PO QDAY 06/16/23 05/13/24 (Linzess) lisinopril 5 mg tablet 5 mg PO QDAY 06/16/23 05/13/24 melatonin 10 mg capsule 10 mg PO DAILY 06/16/23 05/13/24 montelukast 10 mg tablet 10 mg PO QDAY 06/16/23 05/13/24 omeprazole 40 mg capsule,delayed 40 mg PO BID 06/16/23 05/13/24 release potassium chloride 10 mEq 20 meq PO BID 06/16/23 05/13/24 tablet,extended release(part/cryst) vilazodone 40 mg tablet 40 mg PO QDAY 06/16/23 05/13/24 vit C 250 mg-vit E 90 mg-zinc 40 1 tab PO BID 06/16/23 05/13/24 mg-copper 1 am-qdxhwk-axblen capsule (PreserVision AREDS-2) warfarin 1 mg tablet 1 mg PO .qtuesday 06/16/23 05/13/24 warfarin 2 mg tablet 2 mg PO QDAY 06/16/23 05/13/24 aspirin 81 mg tablet,delayed 81 mg PO DAILY 07/17/23 05/13/24 release (Adult Aspirin Regimen) meclizine 12.5 mg tablet 12.5 mg PO BID PRN dizziness 07/17/23 05/13/24 ondansetron HCl 4 mg tablet 4 mg PO Q12H PRN nausea and 07/17/23 05/13/24 vomiting fluticasone fur. 200 mcg-umeclid 1 inh inhalation Q24H 02/23/24 05/13/24 62.5 mcg-vilant 25 mcg inhalat.powder (Trelegy Ellipta) tizanidine 4 mg tablet 4 mg PO TID 02/23/24 05/13/24 Previous Rx's ?Medication ?Instructions ?Recorded sucralfate 1 gram tablet 1 g PO Q6H 4 weeks #112 tabs 02/28/24 lidocaine 5 % topical patch 1 patch topical Q24H #30 ea 02/29/24 buprenorphine 5 mcg/hour weekly 1 patch transdermal Q7D #4 ea 05/20/24 transdermal patch (Butrans) Allergies Allergy/AdvReac Type Severity Reaction Status Date / Time Iodinated Contrast Media Allergy Unknown Verified 05/13/24 07:48 latex Allergy Unknown Verified 05/13/24 07:48 erythromycin base AdvReac Severe Unknown Verified 05/13/24 07:48 Penicillins AdvReac Severe Anaphylaxis Verified 05/13/24 07:48 cephalexin (From Keflex) AdvReac Intermediate Hives Verified 05/13/24 07:48 doxycycline AdvReac Intermediate Hives Verified 05/13/24 07:48 iodine AdvReac Intermediate Hives Verified 05/13/24 07:48 morphine AdvReac Intermediate Vomiting Verified 05/13/24 07:48 oxycodone (From Percocet) AdvReac Intermediate Vomiting Verified 05/13/24 07:48 procaine (From Novocain) AdvReac Intermediate Migraine Verified 05/13/24 07:48 ciprofloxacin (From Cipro) AdvReac Mild Hives Verified 05/13/24 07:48 Opioid HPI Opioid Management Most Recent Opioid Data: Last Pain Scale 10 05/13/24 07:40 05/13/24 Review of Systems ROS Status of ROS 10 or more systems reviewed and unremark able except as noted in history and below [facility] Medical History (Updated 10/08/24 @ 00:15 by Lulu Krishnamurthy MD) Anemia ?D64.9 - Anemia, unspecified (ICD-10) History of blood transfusion (1997) ?Z92.89 - Personal history of other medical treatment (ICD-10) Panic attacks ?F41.0 - Panic disorder [episodic paroxysmal anxiety] (ICD-10) Depression ?F32.A - Depression, unspecified (ICD-10) Anxiety ?F41.9 - Anxiety disorder, unspecified (ICD-10) COVID-19 ?U07.1 - COVID-19 (ICD-10) Chronic obstructive pulmonary disease ?J44.9 - Chronic obstructive pulmonary disease, unspecified (ICD-10) Migraine ?G43.909 - Migraine, unspecified, not intractable, without status migrainosus (ICD-10) Urinary tract infection ?N39.0 - Urinary tract infection, site not specified (ICD-10) Presence of vena cava filter ?Z95.828 - Presence of other vascular implants and grafts (ICD-10) Hypertension ?I10 - Essential (primary) hypertension (ICD-10) Osteoarthritis ?M19.90 - Unspecified osteoarthritis, unspecified site (ICD-10) Hypothyroid ?E03.9 - Hypothyroidism, unspecified (ICD-10) Stage 3 chronic kidney disease ?N18.30 - Chronic kidney disease, stage 3 unspecified (ICD-10) Colitis ?K52.9 - Noninfective gastroenteritis and colitis, unspecified (ICD-10) DVT (deep venous thrombosis) ?I82.409 - Acute embolism and thrombosis of unspecified deep veins of unspecified lower extremity (ICD-10) Surgical History S/P epidural steroid injection ?Z92.241 - Personal history of systemic steroid therapy (ICD-10) H/O hand surgery ?Z98.890 - Other specified postprocedural states (ICD-10) History of carpal tunnel release ?Z98.890 - Other specified postprocedural states (ICD-10) History of bladder suspension procedure ?Z98.890 - Other specified postprocedural states (ICD-10) ?Z87.448 - Personal history of other diseases of urinary system (ICD-10) History of hernia repair ?Z98.890 - Other specified postprocedural states (ICD-10) ?Z87.19 - Personal history of other diseases of the digestive system (ICD-10) Hx of cholecystectomy ?Z90.49 - Acquired absence of other specified parts of digestive tract (ICD- 10) H/O colonoscopy ?Z98.890 - Other specified postprocedural states (ICD-10) History of esophagogastroduodenoscopy (EGD) ?Z98.890 - Other specified postprocedural states (ICD-10) History of decompression of ulnar nerve ?Z98.890 - Other specified postprocedural states (ICD-10) History of appendectomy ?Z90.49 - Acquired absence of other specified parts of digestive tract (ICD- 10) History of hysterectomy ?Z90.710 - Acquired absence of both cervix and uterus (ICD-10) Delivery by section History of laparoscopy ?Z98.890 - Other specified postprocedural states (ICD-10) Family History Other Cancer Family history of aneurysm Family history of diabetes mellitus Family history of heart disease Family history of hypertension Social History Within the past year, how often did you have a drink containing alcohol: never Score interpretation: A score less than 3 is consistent with normal alcohol consumption. Smoking status: Former smoker Non-prescribed substance use: denies use Highest level of school completed/degree received: some college, no degree Exam Narrative Exam Narrative: Vital signs and Nursing Notes reviewed: Patient is afebrile with a normal pulse, blood pressure is elevated at 160/93, she is not hypoxic with pulse ox of 95% on room air General: Awake, alert, oriented, uncomfortable appearing female with bleeding from the bridge of her nose, GCS 15 HEENT: Normocephalic, there is a 2.0 cm laceration over the bridge of the nose with mild active bleeding, just distal to this is an area of denuded skin. Small amount of dried blood is noted in the left nostril with no active bleeding or septal hematoma. There is also a 1.5 cm laceration over the left eyebrow with mild tenderness but no active bleeding. There is a small amount of bleeding from the lateral aspect of her left lower lip without any notable laceration, superfical abrasion is noted on the left side of the chin without mandibular tenderness, malocclusion or other notable abnormality. No oral bleeding is noted. No dental injury is noted. Patient is edentulous in the mandible and has dentures in the maxilla Neck: Supple, mild tenderness to palpation Chest: Lungs are clear to auscultation with good air entry, there is no wheezing rhonchi or rales appreciated no accessory muscle use, patient is speaking in complete sentences-no chest wall tenderness to palpation CVS: Regular rate and rhythm S1-S2, no murmurs rubs or gallops, pulses are brisk and equal bilaterally ABD: Soft, nondistended, nontender, no rebound guarding or rigidity, bowel sounds are normal, no pulsatile masses appreciated Extremities: Moving all extremities, 6 x 4 cm area of tenderness and ecchymosis to the right proximal to mid humerus-no bony deformity, no sign of shoulder dislocation Skin: Normal in appearance with scattered areas of ecchymosis Neuro: No focal deficits, speech is clear, 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, no facial droop, upper and lower extremity strength and sensation is intact Constitutional Vital Signs, click to edit/add: Last Vital Signs Temp 98.2 F 10/07/24 21:41 Pulse 97 H 10/07/24 21:41 Resp 18 10/07/24 21:41 BP 160/93 H 10/07/24 21:41 Pulse Ox 95 10/07/24 21:41 O2 Del Method Room Air 10/07/24 21:41 Course Vital Signs Vital signs: Vital Signs Temperature 98.2 F 10/07/24 21:41 Pulse Rate 97 H 10/07/24 21:41 Respiratory Rate 18 10/07/24 21:41 Blood Pressure 160/93 H 10/07/24 21:41 Pulse Oximetry 95 10/07/24 21:41 Oxygen Delivery Method Room Air 10/07/24 21:41 Temperature 98.2 F 10/07/24 21:41 Pulse Rate 97 H 10/07/24 21:41 Respiratory Rate 18 10/07/24 21:41 Blood Pressure 160/93 H 10/07/24 21:41 Pulse Oximetry 95 10/07/24 21:41 Oxygen Delivery Method Room Air 10/07/24 21:41 Medical Decision Making MDM Narrative Medical decision making narrative: This 64-year-old female presents for evaluation after she lost her footing at home and fell striking her right humerus and face on the ground. She sustained a 2 cm laceration over her nose. She was wearing her glasses at that time which were broken. She also has a 1.5 cm laceration over her left eyebrow. She denies any loss of consciousness. She also complained of some neck pain. She is on Coumadin due to a history of blood clots. Her GCS is 15. She does not have any chest pain or shortness of breath and denies chest pain or dizziness resulting in her fall. CT scan of the head, facial bones and cervical spine was ordered and is included in the body of this report. It does not show any intracranial bleeding or cervical fracture or nasal bone or facial fracture. The patient's tetanus was updated. Her lacerations were closed at the bedside by myself with good wound edge approximation and control of bleeding. The patient requested to have her INR drawn so that she could decide whether or not she should be taking her Coumadin tonight or tomorrow. X-ray of the right humerus was also ordered and does not show any sign of fracture or dislocation. Her INR is 2.74. Medical Records Medical records narrative: [place] [address] CT Scan Report Signed Patient: MADAN PERRY MR#: [id number] : 1960 Acct:[id number] Age/Sex: 64 / F ADM Date: 10/07/24 Loc: ER Attending Dr: Ordering Physician: Lulu Krishnamurthy Date of Service: 10/07/24 Procedure(s): CT cervical spine wo con Accession Number(s): [id number] cc: [facility] D.O.~ [facility] [place] [id number] Patient Name: MADAN PERRY MRN: [id number] date: 1960 Sex: F Assigned Patient Location: ER Current Patient Location: ER Accession/Order Number: [id number] Exam Date: 10/07/2024 22:55 Report Date: 10/07/2024 23:39 At the request of: LULU KRISHNAMURTHY Procedure: CT cervical spine wo con INDICATION: 64 years old; Female. Closed head trauma status post fall. Patient taking Coumadin. TECHNIQUE: CT Head (ax/cor/sag reformats). Ionizing radiation dose reduced via iterative reconstruction/FBP blend and body size kV/mA adjustment. Comparison: None FINDINGS: POSTOPERATIVE CHANGES: None. BRAIN PARENCHYMA: No intraparenchymal or extra-axial hemorrhage. No mass effect. No midline shift or herniation. Normal dietz/white differentiation. VENTRICLES/EXTRA-AXIAL SPACES: Normal for patient's age. SINUSES/MASTOIDS: Please see the facial bone portion of this report for evaluation the paranasal sinuses. The mastoids and middle ears are clear. MSK: No displaced or depressed calvarial fracture. There is supraorbital soft tissue swelling present bilaterally, projecting greater to the left than the right. OTHER: No hyperdense intraluminal thrombus. Vascular calcification is present. TECHNIQUE: CT of the facial bones was performed. IV contrast: None. Axial, coronal, sagittal reformats were created and reviewed. Dose reduction techniques were achieved by using automated exposure control and/or adjustment of mA and/or kV according to patient size and/or use of iterative reconstruction technique. COMPARISON: None FINDINGS: FRONTAL BONES: SUPRAORBITAL SOFT TISSUES: Supraorbital soft tissue swelling bilaterally projecting greater to the left than the right. ORBITS: Globes: Normal without proptosis or evidence of disruption or intraocular foreign body. Retrobulbar fat: normal without mass or hematoma. Extraocular Muscles: Normal and symmetric without prolapse or evidence of entrapment. Optic Nerves: Normal without mass-effect or evidence of disruption. Preseptal Soft Tissues: Mild preseptal soft tissue swelling on the left. Ibarra: No orbital wall fracture or bony dehiscence is present. MAXILLA AND MANDIBLE: Maxillary and buccal soft tissues: Normal without swelling, laceration or foreign body. Maxillary bones: The patient is edentulous in the maxilla. No maxillary fracture is present. Mandible: There are artifacts from dental work. Several missing teeth. No alveolar ridge fracture. No mandibular body or neck fracture. Degenerative change in the TMJ, worse on the left than the right. Nasal bones and septum: No displaced nasal fracture. Nasal septum position of the midline. The maxillary spine is intact. PARANASAL SINUSES: Frontal: Clear. Ethmoid: Clear. Maxillary: Clear. Sphenoid: Clear. Zygomatic arch: Intact bilaterally. Pterygoid plates: Intact bilaterally. TECHNIQUE: CT imaging of the cervical spine was performed. IV contrast: None. Dose reduction techniques were achieved by using automated exposure control and/or adjustment of mA and/or kV according to patient size and/or use of iterative reconstruction technique. COMPARISON: None available. FINDINGS: POSTOPERATIVE CHANGES: None. ALIGNMENT: Nonspecific straightening of the normal cervical curve. Mild torticollis concave to the right. COMPRESSION FRACTURES: Generalized bony demineralization. No fracture or vertebral body collapse. No bone displacement. No asymmetric widening of the facets. PREVERTEBRAL SOFT TISSUES: Normal. CRANIOCERVICAL JUNCTION: There is a normal relationship of the occipital condyles, lateral masses of C1, and articular surfaces of C2. The base of the dens and body of C2 are intact. Is narrowing of the predental space with spurring arising from the anterior arch of C1. POSTERIOR FOSSA: The cerebellar tonsils are above the foramen magnum. Disc levels: C2-C3: Facet degeneration on the left. No disc herniation. Central canal patent. Neural foramina patent. C3-C4: Disc space narrowing. No disc herniation. Facet degeneration on the left. Central canal patent. Neural foramina patent. C4-C5: Disc space narrowing. Vertebral endplate degeneration. Endplate osteophyte formation. Anterior osteophytes. Uncovertebral joint degeneration and facet degeneration. Central canal patent. Mild right-sided foraminal stenosis. C5-C6: Narrowing. Broad-based central and left-sided disc osteophyte complex with mild central canal stenosis. Bulky bridging anterior osteophytes. Uncovertebral joint degeneration worse on the left than the right. Mild to moderate left-sided foraminal stenosis. C6-C7: Re: Artifacts. Facet degeneration the left. Central canal patent. Neural foramina patent. C7-T1: Beam hardening artifacts. Central canal patent. Neural foramina patent. UPPER THORACIC SPINE: At T1-T2, Beam hardening artifacts. Posterior ligament is calcification. Central canal patent. Neural foramina patent. OTHER: Emphysematous changes and chronic scarring in the visualized portion of the lung apices, worse on the left. Left-sided pleural thickening is present. The study is not optimized for complete region of the chest. Esophageal wall thickening. CT/CT cervical spine wo con IMPRESSION: 1. No acute intracranial abnormality. No hemorrhage or mass effect. 2. Extracranial soft tissue swelling. No acute facial fracture. 3. Multilevel cervical spondylosis. No acute fracture. 4. Emphysematous changes and chronic scarring with pleural thickening in the visualized portion lung apices, worse on the left. 5. Esophageal wall thickening. Electronically authenticated by: ALIZA CLAROS Date: 10/07/2024 23:39 Lab Data Labs: Lab Results 10/08/24 Range/Units 00:13 PT 26.3 H (9.0-11.6) sec INR 2.74 Discharge Plan Discharge Chief Complaint: Wound/Laceration Clinical Impression: Fall from standing, Facial laceration, Contusion of right upper arm, initial encounter, Laceration Patient Disposition: Home, Self-Care Condition: Good Prescriptions / Home Meds: No Action warfarin 2 mg tablet 2 mg PO QDAY Rx Instructions: 2mg everyday, 3mg every Monday warfarin 1 mg tablet 1 mg PO .qt Rx Instructions: Pt takes 1mg with 2mg for total of 3mg every Monday acyclovir 400 mg tablet 400 mg PO DAILY amitriptyline 100 mg tablet 100 mg PO BEDTIME aripiprazole 10 mg tablet 10 mg PO BEDTIME atorvastatin 10 mg tablet 10 mg PO QDAY acsxwbplbm-iwczckevnpwym-jalf 50-300-40 mg capsule 1 cap PO Q6H PRN (Reason: pain) cyanocobalamin (vitamin B-12) 1,000 mcg/mL solution 1,000 mcg IM .monthly Ajovy Autoinjector 225 mg/1.5 mL auto-injector 225 mg SUBCUT .monthly hydrochlorothiazide 12.5 mg tablet 12.5 mg PO QDAY hydrocodone-acetaminophen 5-325 mg tablet 1 tab PO TID PRN (Reason: pain) hydroxyzine HCl 25 mg tablet 25 mg PO BEDTIME levothyroxine 125 mcg tablet 125 mcg PO .every morning Linzess 72 mcg capsule 145 mcg PO QDAY Patient Comments: on empty stomach before a meal lisinopril 5 mg tablet 5 mg PO QDAY montelukast 10 mg tablet 10 mg PO QDAY omeprazole 40 mg capsule,delayed release(DR/EC) 40 mg PO BID potassium chloride 10 mEq tablet,ER particles/crystals 20 meq PO BID vilazodone 40 mg tablet 40 mg PO QDAY Biotin Plus Keratin 10,000-100 mcg-mg tablet 1 tab PO QDAY Patient Comments: with supper cholecalciferol (vitamin D3) [Vitamin D3] 50 mcg (2,000 unit) capsule 50 mcg PO DAILY melatonin 10 mg capsule 10 mg PO DAILY PreserVision AREDS-2 250-90-40-1 mg capsule 1 tab PO BID Trelegy Ellipta 200-62.5-25 mcg blister with device 1 inh INHALATION Q24H tizanidine 4 mg tablet 4 mg PO TID sucralfate 1 gram tablet 1 g PO Q6H 28 Days Qty: 112 0RF aspirin [Adult Aspirin Regimen] 81 mg tablet,delayed release (DR/EC) 81 mg PO DAILY ondansetron HCl 4 mg tablet 4 mg PO Q12H PRN (Reason: nausea and vomiting) meclizine 12.5 mg tablet 12.5 mg PO BID PRN (Reason: dizziness) lidocaine 5 % adhesive patch,medicated 1 patch topical Q24H Qty: 30 2RF Rx Instructions: leave on most painful area for up to 12 hrs daily buprenorphine [Butrans] 5 mcg/hour patch weekly 1 patch transdermal Q7D Qty: 4 0RF Print Language: [place] Citizen Instructions: Care For Your Stitches (ED), Laceration (ED), Contusion in Adults (ED), Fall Prevention (ED) Referrals: [facility] DO [Primary Care Provider] - 1 week Procedures ED Procedure Instructions Procedures Procedures: Procedure note: Facial laceration repair; forehead laceration was irrigated with normal saline and infiltrated with 1% lidocaine, when anesthesia was obtained 5, 4-0 Ethilon sutures were placed into the laceration with good wound edge approximation Facial laceration repair; nasal laceration, the laceration was irrigated with normal saline and the wound edges were infiltrated with 1% lidocaine, 8, 4-0 Ethilon sutures were placed into the laceration with good wound edge approximation and control of bleeding
[2024-10-07] MEDS: LIDOCAINE HCL 1% 100 MG/10 ML MDV INJ (23:13)
[2024-10-07] MEDS: MORPHINE SULFATE 4 MG/ML VIAL IM (23:13)
[2024-10-07] MEDS: ADACEL DIPH,PERTUSS(ACELL),TET VAC/PF 0.5 ML ADULT SYRINGE IM (23:14)
[2024-10-07] MEDS: ONDANSETRON 4 MG RAPDIS TABLET SL (23:14)
--- NOTE | 2024-10-07 23:57 | XR_ITS ---
The [address] [address] Patient Name: MADAN PERRY MRN: [id number] date: 1960 Sex: F Assigned Patient Location: ER Current Patient Location: Accession/Order Number: [id number] Exam Date: 10/07/2024 23:59 Report Date: 10/08/2024 00:45 At the request of: ABEBA MARKER Procedure: XR humerus RT EXAM: XR humerus RT HISTORY: fall, upper arm pain, swelling COMPARISON: None. TECHNIQUE: 2 views of the right humerus were obtained. FINDINGS: No acute fracture or dislocation is seen. The right humeral head is well-seated on the glenoid. There are mild degenerative changes of the right acromioclavicular joint. The coracoclavicular distance is preserved. The imaged right lung is clear. XR/XR humerus RT IMPRESSION: 1. No acute fracture or dislocation of the right humerus is seen. If pain persists, repeat radiographs are recommended in 7-10 days. Electronically authenticated by: Chun HAMEED Date: 10/08/2024 00:45
[2024-10-08 00:40] LABS: INR 2.74; Prothrombin Time 26.3 sec (9.0-11.6)
== END 2024-10-08 01:05 | disposition home or self-care (01) ==
PROVIDERS: Emergency Provider Emergency Medicine; PCP Family Medicine
DX: S01.21XA Laceration without foreign body of nose, initial encounter (principal); S01.112A Laceration without foreign body of left eyelid and periocular area, initial encounter; Z79.01 Long term (current) use of anticoagulants; M47.812 Spondylosis without myelopathy or radiculopathy, cervical region; S00.531A Contusion of lip, initial encounter; S40.021A Contusion of right upper arm, initial encounter; Z86.718 Personal history of other venous thrombosis and embolism; Z90.49 Acquired absence of other specified parts of digestive tract; Z90.710 Acquired absence of both cervix and uterus; Z87.891 Personal history of nicotine dependence; Z23 Encounter for immunization; W18.39XA Other fall on same level, initial encounter
CPT/HCPCS: 12013; 36415; 70450; 70486; 72125; 73060; 85610; 90471; 90715; 96372; 99285; J2270; Q0162

== ENCOUNTER 2024-10-28 02:23 | Outpatient (RCR) | payer BC, MEDICARE, SELFPAY | END 2024-11-22 13:41 | disposition home or self-care (01) | LOC: MM 02:23 | PROVIDERS: PCP Family Medicine; Visit Provider Internal Medicine | DX: Z51.81 Encounter for therapeutic drug level monitoring (principal); Z79.01 Long term (current) use of anticoagulants | CPT/HCPCS: 85610; G0463 ==

== ENCOUNTER 2024-10-30 00:40 | Emergency (ER) | payer BC, MEDICARE, SELFPAY ==
[2024-10-30 00:47] VITALS: BP 160/85; PULSE 89; O2SAT 97; BMI 26.9
--- OUTSIDE RECORDS SUMMARY | 2024-10-30 00:58 | XMS_ITS | CCD ---
Author Organization [facility] CliniSyri Care Team Providers Care Construction Accountant Name Role Phone Adilia Mederos Unavailable Lilian Ferreira Unavailable Yesy Covarrubias OT Unavailable Aliza Aguilar MD Unavailable [phone], [address] TANK [facility] Primary Care [...] Unavailable [place], [place] A Primary Care Provider [phone] DO Aliza Spencer Attending Provider Aliza Spencer [...] Acetaminophen / oxyCODONE Drug Allergy stomach upset [employer] Other (3 sources) Adhesive Tape Propensity to adverse reactions rash [employer] Other (9 sources) Cephalexin; Translations: [CEPHALEXIN] Drug Allergy 12-22-19 06 anaphylaxis, Unknown [facility] (13 sources) Erythromycin; Translations: [ERYTHROMYCIN] Drug Allergy 12-22-19 06 Other, Unknown [facility] (8 sources) Iodine; Translations: [iodine] Drug Allergy 01-31-20 13 rash [facility] Repository (7 sources) Latex; Translations: [LATEX] Propensity to adverse reactions 12-22-19 06 [place] (7 sources) Penicillin G Benzathine; Translations: [penicillin G benzathine] Drug allergy 12-11-19 23 anaphylaxis [facility] (3 sources) Procaine Drug Allergy headaches [facility] [employer] Other (2 sources) Cephalexin; Translations: [Keflex] Drug Allergy 01-31-20 13 anaphylaxis [facility] Repository (1 source) Novocain Drug allergy Unknown [facility] [employer] Other (11 sources) Acetaminophen; Translations: [ACETAMINOPHEN] Drug [...] Propensity to adverse reactions 09-03-[address] [facility] (14 sources) Erythromycin Base; Translations: [ERYTHROMYCIN BASE] Propensity to adverse reactions to drug 01-24-[address] [facility] (10 sources) Iodides; Translations: [IODIDES] Propensity to adverse reactions to drug 10-31-[address] [facility] (6 sources) Other (Review Comments!); Translations: [OTHER (REVIEW COMMENTS!)] Propensity to adverse reactions to drug 07-22-20 19 [facility]: (1 source) Ciprofloxacin Drug Allergy [facility] Repository (1 source) Iodine (And Iodine Containting Drugs) Drug allergy (disorder) 01-31-20 13 [facility] Repository (1 source) Latex Drug allergy (disorder) 01-31-20 13 [facility] Rep[facility] (5 sources) Morphine; Translations: [MORPHINE] Drug Allergy 10-21-19 14 vomiting [facility] Repository (1 source) Penicillins Drug allergy (disorder) 01-31-20 13 [facility] Repository (1 source) Sulfonamides (Antibiotic) Drug allergy (disorder) 01-31-20 13 [facility] Repository (1 source) Darvocet-N 100 Drug allergy (disorder) 01-31-20 13 [facility] Repository (1 source) E.E.S. Drug allergy (disorder) 01-31-20 13 [facility] Repository (4 sources) Adhesive Tape; Translations: [adhesive tape] Allergy to substance 12-11-19 rash [facility] (7 sources) oxyCODONE; Translations: [oxycodone] Drug Allergy 12-11-19 Unknown [facility] (4 sources) Procaine; Translations: [procaine] Drug Allergy 12-11-19 headaches [facility] (1 source) Cephalexin Drug Allergy 12-11-19 [facility] Repository (1 source) Doxycycline Drug Allergy 12-11-19 [facility] Repository (1 source) Latex Drug allergy (disorder) 12-11-19 [facility] Repository (1 source) Morphine Drug Allergy 12-11-19 [facility] Repository (1 source) Adhesive agent; Translations: [...] 0 Active take 1 capsule by mo [facility] every four hours Yrtnztcjgh-MMAR-Hvthgvxn 50-325-40 MG 1 capsule as needed Orally [...] Active HYDROcodone-Acet aminophen 7.5-300 MG Orally Not-Taking [place] Active acyclovir 400 mg oral tablet (10 [...] daily. 0 Active Flovent Diskus A ctive Ewwyohaxhqi-Nvxhnhjmb-Gpofvk er (2 sources) Anticholinergic, Corticosteroid, beta2-Adrenergic Agonist Start: 05-28-2024 Rqomulxozdh-Jpqvubnpg-Xgzwxb er (Trelegy Ellipta) 100-62.5-25 mcg blister with [...] by mouth daily. Followed in coumadin clinic [place], [place] 0 Active take 1 tablet by [...] 4 mg/0.1 mL nasal liquid Instill 1 [place] into one nostril (alternate sides) as needed. 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, [address] ABS BASOPHIL 0.06 x10^3ul Normal (0.00 - 0.16) [facility] Comment on above: Order Comment: FACIL ITY: [facility] [id number] Performed By: #### C BC/D3, ESRCRP, RHF, URCA #### [facility] [address] [place], [address] ABS BLAST 0.00 x10^3ul Normal (0.00 - 0.01) [facility] Comment on above: Order Comment: FACIL ITY: [facility] [id number] Performed By: #### C BC/D3, ESRCRP, RHF, URCA #### [facility] [address] [place], [address] ABS EOSINOPHIL 0.40 x10^3ul Normal (0.00 - 0.40) [facility] Comment on above: Order Comment: FACIL ITY: [facility] [id number] Performed By: #### C BC/D3, ESRCRP, RHF, URCA #### [facility] [address] [place], [address] ABS IMMATURE GRANS 0.00 x10^3ul Normal (0.00 - 0.11) T [facility] Comment on above: Order Comment: FACIL ITY: [facility] [id number] Performed By: #### C BC/D3, ESRCRP, RHF, URCA #### [facility] [address] [place], [address] ABS LYMPHOCYTE 1.37 x10^3ul Normal (0.96 - 5.40) [facility] Comment on above: Order Comment: FACIL ITY: [facility] [id number] Performed By: #### C BC/D3, ESRCRP, RHF, URCA #### [facility] [address] [place], [address] ABS METAMYELOCYTE 0.00 x10^3ul Normal (0.00 - 0.01) To [facility] Comment on above: Order Comment: FACIL ITY[facility] [id number] Performed By: #### C BC/D3, ESRCRP, RHF, URCA #### [facility] [address] [place], [address] ABS MONOCYTE 0.28 x10^3ul Normal (0.10 - 1.00) [facility] above: Order Comment: FACIL ITY: [facility] [id number] Performed By: #### C BC/D3, ESRCRP, RHF, URCA #### [facility] [address] [facility], [address] ABS MYELOYCYTE 0.00 x10^3ul Normal (0.00 - 0.01) [facility]: Order Comment: FACIL ITY: [facility] [id number] Performed By: #### C BC/D3, ESRCRP, RHF, URCA #### [facility] [address] [place], [address] ABS NEUTROPHIL 3.47 x10^3ul Normal (1.50 - 7.00) [facility] Comment on above: Order Comment: FACIL ITY[facility] [id number] Performed By: #### C BC/D3, ESRCRP, RHF, URCA #### [facility] [address] [place], [address] ABS PROMYELOCYTE 0.00 x10^3ul Normal (0.00 - 0.01) [facility] Comment on above: Order Comment: FACIL ITY: [facility] [id number] Performed By: #### C BC/D3, ESRCRP, RHF, URCA #### [facility] [address] [place], [address] ABS REAC LYMPH 0.00 x10^3ul Normal (0.00 - 0.01) [facility] Comment on above: Order Comment: FACIL ITY: [facility] [id number] Performed By: #### C BC/D3, ESRCRP, RHF, URCA #### [facility] [address] [place], [address] ANISOCYTOSIS SL High (NONE) [facility] Comment on above: Order Comment: FACIL ITY: [facility] [id number] Performed By: #### C BC/D3, ESRCRP, RHF, URCA #### [facility] [address] [place], [address] BANDS 2 % Normal () [facility] Comment on above: Order Comment: FACIL ITY: [facility] [id number] Performed By: #### C BC/D3, ESRCRP, RHF, URCA #### [facility] [address] [place], [address] BASOS 1 % Normal () [facility] [facility] Comment on above: Order Comment: FACIL ITY: [facility] [id number] Performed By: #### C BC/D3, ESRCRP, RHF, URCA #### [facility] [address] [place], [address] BLASTS 0 % Normal () [facility] Comment on above: Order Comment: FACIL ITY: [facility] [id number] Performed By: #### C BC/D3, ESRCRP, RHF, URCA #### [facility] [address] [place], [address] EOSINOPHIL 7 % Normal () [facility] Comment on above: Order Comment: FACIL ITY: [facility] [id number] Performed By: #### C BC/D3, ESRCRP, RHF, URCA #### [facility] [address] [place], [address] HYPOCHROMASIA NONE Normal (NONE) [facility] Comment on above: Order Comment: FACIL ITY: [facility] [id number] Performed By: #### C BC/D3, ESRCRP, RHF, URCA #### [facility] [address] [place], [address] IMMATURE GRANS (IG) 0 % Normal () [facility] Comment on above: Order Comment: FACIL ITY: [facility] [id number] Performed By: #### C BC/D3, ESRCRP, RHF, URCA #### [facility] [address] [place], [address] LYMPS 24 % Normal () [facility] Comment on above: Order Comment: FACIL ITY: [facility] [id number] Performed By: #### C BC/D3, ESRCRP, RHF, URCA #### [facility] [address] [place], [address] MACROCYTES NONE Normal (NONE) [facility] Comment on above: Order Comment: FACIL ITY: [facility] [id number] Performed By: #### C BC/D3, ESRCRP, RHF, URCA #### [facility] [address] [place], [address] MCH 27.8 PG Normal (27.0 - 33.0) [facility] Comment on above: Order Comment: FACIL ITY: [facility] [id number] Performed By: #### C BC/D3, ESRCRP, RHF, URCA #### [facility] [address] [place], [address] MCHC 31.2 G/DL Normal (30.0 - 37.0) [facility] Comment on above: Order Comment: FACIL ITY: [facility] [id number] Performed By: #### C BC/D3, ESRCRP, RHF, URCA #### [facility] [address] [place], [address] MCV 88.9 fl Normal (81.0 - 99.0) [facility] Comment on above: Order Comment: FACIL ITY: [facility] [id number] Performed By: #### C BC/D3, ESRCRP, RHF, URCA #### [facility] [address] [place], [address] META 0 % Normal () [facility] Comment on above: Order Comment: FACIL ITY: [facility] [id number] Performed By: #### C BC/D3, ESRCRP, RHF, URCA #### [facility] [address] [place], [address] MICROCYTES NONE Normal (NONE) [facility] Comment on above: Order Comment: FACIL ITY: [facility] [id number] Performed By: #### C BC/D3, ESRCRP, RHF, URCA #### [facility] [address] [place], [address] MONOS 5 % Normal () [facility] Comment on above: Order Comment: FACIL ITY: [facility] [id number] Performed By: #### C BC/D3, ESRCRP, RHF, URCA #### [facility] [address] [place], [address] MYELO 0 % Normal () [facility] Comment on above: Order Comment: FACIL ITY: [facility] [id number] Performed By: #### C BC/D3, ESRCRP, RHF, URCA #### [facility] [address] [place], [address] NRBC/100 WBC 0 Normal (0 - 0) [facility] Comment on above: Order Comment: FACIL ITY: [facility] [id number] Performed By: #### C BC/D3, ESRCRP, RHF, URCA #### [facility] [address] [place], [address] OVALOCYTES NONE Normal (NONE) [facility] Comment on above: Order Comment: FACIL ITY: [facility] [id number] Performed By: #### C BC/D3, ESRCRP, RHF, URCA #### [facility] [address] [place], [address] PLT 361 x10^3ul Normal (130 - 400) [facility] Comment on above: Order Comment: FACIL ITY: [facility] [id number] Performed By: #### C BC/D3, ESRCRP, RHF, URCA #### [facility] [address] [place], [address] POIKILOCYTOSIS SL High (NONE) [facility] Comment on above: Order Comment: FACIL ITY: [facility] [id number] Performed By: #### C BC/D3, ESRCRP, RHF, URCA #### [facility] [address] [place], [address] POLYCHROMASIA SL High (NONE) [facility] Comment on above: Order Comment: FACIL ITY: [facility] [id number] Performed By: #### C BC/D3, ESRCRP, RHF, URCA #### [facility] [address] [place], [address] PROMYELOCYTES 0 % Normal () [facility] Comment on above: Order Comment: FACIL ITY: [facility] [id number] Performed By: #### C BC/D3, ESRCRP, RHF, URCA #### [facility] [address] [place], [address] RBC 4.97 x10^6ul Normal (4.20 - 5.40) [facility] Comment on above: Order Comment: FACIL ITY: [facility] [id number] Performed By: #### C BC/D3, ESRCRP, RHF, URCA #### [facility] [address] [place], [address] RDW-SD 48.4 fl Normal (37.0 - 49.0) [facility] Comment on above: Order Comment: FACIL ITY: [facility] [id number] Performed By: #### C BC/D3, ESRCRP, RHF, URCA #### [facility] [address] [place], [address] REACTIVE LYMPH 0 % Normal () [facility] Comment on above: Order Comment: FACIL ITY: [facility] [id number] Performed By: #### C BC/D3, ESRCRP, RHF, URCA #### [facility] [address] [place], [address] SCHISTOCYTES NONE Normal (NONE) [facility] Comment on above: Order Comment: FACIL ITY: [facility] [id number] Performed By: #### C BC/D3, ESRCRP, RHF, URCA #### [facility] [address] [place], [address] SEGS 61 % Normal () [facility] Comment on above: Order Comment: FACIL ITY: [facility] [id number] Performed By: #### C BC/D3, ESRCRP, RHF, URCA #### [facility] [address] [place], [address] TARGET CELLS NONE Normal (NONE) [facility] Comment on above: Order Comment: FACIL ITY: [facility] [id number] Performed By: #### C BC/D3, ESRCRP, RHF, URCA #### [facility] [address] [place], [address] WBC 5.69 x10^3ul Normal (3.80 - 10.60) [facility] Comment on above: Order Comment: FACIL ITY: [facility] [id number] Performed By: #### C BC/D3, ESRCRP, RHF, URCA #### [facility] [address] [place], [address] RF FACTORon 09-26-2024 RF FACTOR <9 Normal (0 - 12) [facility] Comment on above: Result Comment: RF F ACTOR = LESS THAN 9 IU/ML RF FACTOR MIN. DETECTION = 9 IU/ML. Performed By: #### C BC/D3, ESRCRP, RHF, URCA #### [facility] [address] [place], [address] SED RATE - CRPon 09-26-2024 CRP EXTENDED RANGE 8.02 MG/L High (0.00 - 5.00) [facility] Comment on above: Performed By: #### C BC/D3, ESRCRP, RHF, URCA #### [facility] [address] [place], [address] SED RATE WEST. 18 MM/HR Normal (0 - 25) [facility] Comment on above: Performed By: #### C BC/D3, ESRCRP, RHF, URCA #### [facility] [address] [place], [address] URIC ACIDon 09-26-2024 Urate [Mass/Vol] 6.1 mg/dL Normal (2.5 - 6.2) [facility] Comment on above: Performed By: #### C BC/D3, ESRCRP, RHF, URCA #### [facility] [address] [place], [address] BASIC MET PANEL W/GFRon - Calcium [Mass/Vol] 9.5 mg/dL Normal (8.6 - 10.6) [facility] Comment on above: Order Comment: FACIL ITY: [facility] [id number] Performed By: #### C HEM-B, MG #### [facility] [address] [place], [address] Chloride [Moles/Vol] 101 mmol/L Normal (98 - 107) [facility] Comment on above: Order Comment: FACIL ITY: [facility] [id number] Performed By: #### C HEM-B, MG #### [facility] [address] [place], [address] CO2 [Moles/Vol] 26 mmol/L Normal (22 - 30) [facility] Comment on above: Order Comment: FACIL ITY: [facility] [id number] Performed By: #### C HEM-B, MG #### [facility] [address] [place], [address] Creatinine [Mass/Vol] 0.57 mg/dL Normal (0.52 - 1.04) [facility] Comment on above: Order Comment: FACIL ITY: [facility] [id number] Performed By: #### C HEM-B, MG #### [facility] [address] [place], [address] GFR- AMER 128.8 ML/M1.7 Normal (60.0 - 140.1) [facility] Comment on above: Order Comment: FACIL ITY: [facility] [id number] Performed By: #### C HEM-B, MG #### [facility] [address] [place], [address] GFR-NON AFRIC-AMER 106.4 ML/M1.7 Normal (60.0 - 115.8) [facility] Comment on above: Order Comment: FACIL ITY: [facility] [id number] Performed By: #### C HEM-B, MG #### [facility] [address] [facility], [address] Glucose [Mass/Vol] 73 mg/dL Low (74 - 106) [facility] Comment on above: Order Comment: FACIL ITY: [facility] [id number] Performed By: #### C HEM-B, MG #### [facility] [address] [place], [address] Potassium [Moles/Vol] 5.4 mmol/L High (3.5 - 5.1) [facility] Comment on above: Order Comment: FACIL ITY: [facility] [id number] Performed By: #### C HEM-B, MG #### [facility] [address] [place], [address] Sodium [Moles/Vol] 131 mmol/L Low (137 - 145) [facility] Comment on above: Order Comment: FACIL ITY: [facility] [id number] Performed By: #### C HEM-B, MG #### [facility] [address] [place], [address] Urea nitrogen [Mass/Vol] 9 mg/dL Normal (4 - 25) [facility] Comment on above: Order Comment: FACIL ITY: [facility] [id number] Performed By: #### C HEM-B, MG #### [facility] [address] [place], [address] MAGNESIUMon 07-17-2024 Magnesium [Mass/Vol] 2.1 mg/dL Normal (1.6 - 2.3) [facility] Comment on above: Performed By: #### C HEM-B, MG #### [facility] [address] [facility], [address] Venkat 02-28-2024 L Specimen: [id number] Received: 02/28/24 Status: DUDLEY Powell Num: [id number] Spec Type: Surgical Subm Dr: Aliza Spencer DO Tissues: A Stomach - Biopsy/Polyp (ANTRUM BX) B Stomach - Biopsy/Polyp (BX FUNDAL GLAND POLYP) C Esophagus Biopsy (DISTAL ESOPH BX) D Esophagus Biopsy (UPPER ESOPH BX) Procedures: HE/8, Gross/Micro L4/4 Age/ Patient Sex Location Account Attending Physician Madan Perry 64/F LABELL [id number] Aliza Spencer DO SPEC NUM: [id number] RECD: 02/28/24 STATUS: DUDLEY XIAODavid NUM: [id number] SUNSHINE: 02/28/[address]: Aliza Spencer DO ENTERED: 02/28/24 [facility] DR: Eben Newell SPEC TYPE: [...] tissue fragment, entirely submitted in B1. Specimen: [id number] Received: 02/28/24 Status: DUDLEY Powell Num: [id number] Spec Type: Surgical Subm Dr: Aliza Spencer DO Tissues: A Stomach - Biopsy/Polyp (ANTRUM BX) B Stomach - Biopsy/Polyp (BX FUNDAL GLAND POLYP) C Esophagus Biopsy (DISTAL ESOPH BX) D Esophagus Biopsy (UPPER ESOPH BX) Procedures: HE/8, Gross/Micro L4/4 Patient: Madan Perry [id number] (Continued) Specimen: [id number] Received: 02/28/24 (Continued) Gross Description (Continued) Signed (signature on file) Steven Ruvalcaba MD 02/29/24 1501 Specimen: [id number] Received: 02/28/24 Status: DUDLEY Powell Num: [id number] Spec Type: Surgical Subm Dr: Aliza Spencer DO Tissues: A Stomach - Biopsy/Polyp (ANTRUM BX) B Stomach - Biopsy/Polyp (BX FUNDAL GLAND POLYP) C Esophagus Biopsy (DISTAL ESOPH BX) D Esophagus Biopsy (UPPER ESOPH BX) Procedures: Ratna, Gross/Micro L4/4 Patient: Madan Perry [id number] (Continued) Specimen: [id number] Received: 02/28/24 (Continued) Gross Description (Continued) C. Further labeled distal esophagus BX are 2 jiménez mucosal tissue fragments measuring 0.3 x 0.2 x 0.1 cm and 0.2 x 0.2 x 0.1 cm, entirely submitted in C1. D. Further labeled upper esophagus BX are 2 jiménez mucosal tissue fragments each measuring 0.2 x 0.1 x 0.1 cm, entirely submitted in D1. CPT Codes 63122r7 Specimen: [id number] Received: 02/28/24-1256 Status: DUDLEY Powell Num: [id number] Spec Type: Surgical Subm Dr: Aliza Spencer DO Tissues: A Stomach - Biopsy/Polyp (ANTRUM BX) B Stomach - Biopsy/Polyp (BX FUNDAL GLAND POLYP) C Esophagus Biopsy (DISTAL ESOPH BX) D Esophagus Biopsy (UPPER ESOPH BX) Procedures: Halina OBREGON/Alta L4/4 Patient: Madan Perry [id number] (Continued) Signed (signature on file) Steven Ruvalcaba MD 02/29/24 1503 Normal [facility] URINE CULTUREon 12-23-2023 Bacteria identified Cx Nom (U) FINAL Normal (. - .) [facility] Comment on above: Order Comment: MS CC FACILITY: [facility] [id number] Result Comment: HUA N CATCH MID-STREAM URINE > 10,000 BUT < 100,000 CFU/ML RESEMBLES A CONTAMINATED URINE COLLECTION Performed By: #### C -UR #### [facility] [address] [facility], [address] Progress Noteson 08-25-2023 Cyanide Pot Hardener Authentication Interface Message Text CC: Left hand and wrist pain Follow up after MRI done at [facility]. Normal [facility] Cyanide Pot Hardener Authentication Interface Message Text Patient Office Note [...] MD Injection Procedure.[facility] 08/25/2023 [id number] Madan Perry The patient requested an injection [...] 10-26-2 023 MR wrist LT wo con [facility] Main [place] [id number] MRI Report Signed Patient: Madan Perry MR#: [id number] : 1960 Acct:[id number] Age/Sex: 63 / F ADM Date: 07/20/23 Loc: [facility] Room: [facility] Attending Dr: Aliza Aguilar Copies to: Aliza Aguilar Ordering Provider: Aliza Aguilar Date of Service: 07/20/23 MR/MR hand LT wo con: MEDIAN NERVE COMPRESSION ([id number]) MR/MR wrist LT wo con: MEDIAN NERVE COMPRESSION ([id number]) XR/XR pre/post mri xray: MEDIAN NERVE COMPRESSION [...] Jose Dial M.D.07/21/2023 7:38 PM Dictation Location: [place] [address] Transcribed By: [facility] 07/21/231937 Dictated By: Jose Dial DO 07/20/23 1525 Signed By: 07/21/231937 Normal [facility] Telephone Encounteron 2022 Cyanide Pot Hardener Authentication Interface Message Text Spoke with patient and scheduled. Normal [facility] Telephone Encounteron 2022 Cyanide Pot Hardener Authentication Interface Message Text Pt called as [...] she would need something sooner. Contact pt [phone] Normal [facility] Addendum Noteon 06-16-2023 Cyanide Pot Hardener Authentication Interface Message Text Addended by: ALIZA AGUILAR on: 06/16/2023 11:34 AM Modules accepted: Orders Normal [facility] Progress Noteson 06-16-2023 Cyanide Pot Hardener Authentication Interface Message Text Patient Office Note [...] this patient. Aliza Aguilar MD Normal [facility] Cyanide Pot Hardener Authentication Interface Message Text CC: Left hand pain Pain Left wrist and hand; tingling to middle and ring fingers. Pt states ganglion which was removed has returned and is painful. CMC joint painful. 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 Normal [facility] XR HAND LEFT 3 VIEWSon 06-16 [...] findings. Left hand MACRO: None Normal [facility] XR Hand - left 3 Viewson [...] with the findings. Left hand MACRO: None [facility] Radiology Study observation (narrative) [facility] XR Hand - left 3 ViewsOrdere d By: Alberto Llanes on 06-16-[address] [facility] Work Phone: US DARNELL DOP LEG [...] [place] Date: 2023-01-27 17:22 Normal [facility] CBC AUTO DIFFon 01-12-2023 BASO # 0.1 103/ul Normal 0.0-0.1 [facility] Comment on above: Performed By: #### C BC #### [facility] [address] [place] [address] Dr. Rocio Hernandez Basophils/100 WBC (Bld) 1.0 % Normal 0.2-2.0 [facility] Comment on above: Performed By: #### C BC #### [facility] [address] [place] [address] Dr. Rocio Hernandez EO # 0.2 103/ul Normal 0.0-0.7 [facility] Comment on above: Performed By: #### C BC #### [facility] [address] [place] [address] Dr. Rocio Hernandez Eosinophils/100 WBC (Bld) 2.9 % Normal 0.9-7.0 [facility] Comment on above: Performed By: #### C BC #### [facility] [address] [place] [address] Dr. Rocio Hernandez Erythrocyte distribution width (RBC) [Ratio] 14.1 % Normal 11.0-15.0 [facility] Comment on above: Performed By: #### C BC #### [facility] [address] [place] [address] Dr. Rocio Hernandez Hematocrit (Bld) [Volume fraction] 41.2 % Normal 36.0-48.0 [facility] Comment on above: Performed By: #### C BC #### [facility] [address] [place] [address] Dr. Rocio Hernandez Hemoglobin (Bld) [Mass/Vol] 13.6 g/dL Normal 12.0-16.0 [facility] Comment on above: Performed By: #### C BC #### [facility] [address] [place] [address] Dr. Rocio Hernandez IG # 0.01 10e3/ul Normal 0.00-0.03 [facility] Comment on above: Performed By: #### C BC #### [facility] [address] [place] [address] Dr. Rocio Hernandez IG % 0.2 % Normal 0.0-0.5 [facility] Comment on above: Performed By: #### C BC #### [facility] [address] [place] [address] Dr. Rocio Hernandez LYMPH # 1.3 103/ul Normal 1.2-3.8 [facility] Comment on above: Performed By: #### C BC #### [facility] [address] [place] [address] Dr. Rocio Hernandez Lymphocytes/100 WBC (Bld) 21.9 % Normal 20.5-60.0 [facility] Comment on above: Performed By: #### C BC #### [facility] [address] [place] [address] Dr. Rocio Hernandez MANUAL DIFF REQ NO Normal [facility] Comment on above: Performed By: #### C BC #### [facility] [address] [place] [address] Dr. Rocio Hernandez MCH (RBC) [Entitic mass] 28.4 pg Normal 26.7-34.0 [facility] Comment on above: Performed By: #### C BC #### [facility] [address] [place] [address] Dr. Rocio Hernandez MCHC (RBC) [Mass/Vol] 33.0 g/dL Normal 29.9-35.2 [facility] Comment on above: Performed By: #### C BC #### [facility] [address] [place] [address] Dr. Rocio Hernandez MCV (RBC) [Entitic vol] 86.0 fL Normal 81.0-99.0 [facility] Comment on above: Performed By: #### C BC #### [facility] [address] [place] [address] Dr. Rocio Hernandez MONO # 0.6 103/ul Normal 0.3-0.8 [facility] Comment on above: Performed By: #### C BC #### [facility] [address] [place] [address] Dr. Rocio Hernandez Monocytes/100 WBC (Bld) 10.3 % Normal 1.7-12.0 [facility] Comment on above: Performed By: #### C BC #### [facility] [address] [place] [address] Dr. Rocio Hernandez NEUT # 3.8 103/ul Normal 1.4-6.5 [facility] Comment on above: Performed By: #### C BC #### [facility] [address] [place] [address] Dr. Rocio Hernandez Neutrophils/100 WBC (Bld) 63.7 % Normal 43.0-75.0 [facility] Comment on above: Performed By: #### C BC #### [facility] [address] [place] [address] Dr. Rocio Hernandez Platelet mean volume (Bld) [Entitic vol] 9.0 fL Critically low 9.5-13.5 [facility] Comment on above: Performed By: #### C BC #### [facility] [address] [place] [address] Dr. Rocio Hernandez PLT 360 103/ul Normal 150-450 [facility] Comment on above: Performed By: #### C BC #### [facility] [address] [place] [address] Dr. Rocio Hernandez RBC 4.79 106/ul Normal 4.20-5.40 [facility] Comment on above: Performed By: #### C BC #### [facility] [address] [place] [address] Dr. Rocio Hernandez WBC 5.9 103/ul Normal 4.0-11.0 [facility] Comment on above: Performed By: #### C BC #### [facility] [address] [place] [address] Dr. Rocio Hernandez FREE T3on 01-12-2023 FREE T3 2.31 pg/mlL Normal 2.18-3.98 [facility] Comment on above: Performed By: #### T SH, CMP, LIPID, FT3 ####[facility] [address] [place] [address]Dr. Rocio Hernandez FREE T4on 01-12-2023 Free T4 [Mass/Vol] 1.21 ng/dL Normal 0.76-1.46 [facility] Comment on above: Performed By: #### B 12FOL, FT4 #### [facility] [address] [address] [address] Rocio Hernandez GLYCOHEMOGLOBIN A1Con 2022 ADA RECOMMENDATION SEE BELOW Normal [facility] Comment on above: Result Comment: ADA RECOMMENDED LIMIT 4.0 - 6.0 ADA THERAPEUTIC TARGET < 7.0 ACTION SUGGESTED > 7.0 Performed By: #### A 1C ####[facility] [address] [address]DrClem Hernandez Glucose [Mass/Vol] 123 mg/dL Normal [facility] Comment on above: Performed By: #### A 1C ####[facility] [address] [place] [address]Dr. Rocio Hernandez HbA1c (Bld) [Mass fraction] 5.9 % Normal 4.5-6.2 [facility] Comment on above: Performed By: #### A 1C ####[facility] [address] [address]Dr. Rocio Hernandez LIPID PROFILEon 01-12-2023 CHOL-HDL RATIO NORM SEE BELOW Normal [facility] Comment on above: Result Comment: 3.3 - 4.4 LOW RISK 4.4 - 7.1 AVERAGE RISK 7.1 - 11.0 MODERATE RISK >11.0 HIGH RISK Performed By: #### T SH, CMP, LIPID, FT3 #### [facility] [address] [address] [address] Rocio Hernandez Cholesterol [Mass/Vol] 203 mg/dL Critically high <=200 [facility] Comment on above: Performed By: #### T SH, CMP, LIPID, FT3 #### [facility] [address] [address] [address] Rocio Hernandez Cholesterol in HDL [Mass/Vol] 89 mg/dL Critically high 40-60 [facility] Comment on above: Performed By: #### T SH, CMP, LIPID, FT3 #### [facility] [address] [address] [address] Rocio Hernandez Cholesterol in LDL [Mass/Vol] 87.8 mg/dL Normal [facility] Comment on above: Performed By: #### T SH, CMP, LIPID, FT3 #### [facility] [address] [address] [address] Rocio Hernandez Cholesterol.total/C holesterol in HDL [Mass ratio] 2.3 {ratio} Normal [facility] Comment on above: Performed By: #### T SH, CMP, LIPID, FT3 #### [facility] [address] [address] [address] Rocio Hernandez HDL NORMAL > or = 60 mg/dl - LO W CARDIOVASCULAR RISK <40 mg/dl - HIGH CARDIOVASCULAR RISK Normal [facility] Comment on above: Performed By: #### T SH, CMP, LIPID, FT3 #### [facility] [address] [address] [address] Rocio Hernandez LDL CALC NORMAL SEE BELOW Normal [facility] Comment on above: Result Comment: <100 mg/dl OPTIMAL 100 - 129 mg/dl NEAR OR ABOVE OPTIMAL 130 - 159 mg/dl BORDERLINE HIGH 160 - 189 mg/dl HIGH >190 mg/dl VERY HIGH Performed By: #### T SH, CMP, LIPID, FT3 #### [facility] [address] [address] [address] Rocio Hernandez Triglyceride [Mass/Vol] 131 mg/dL Normal <=150 [facility] Comment on above: Performed By: #### T SH, CMP, LIPID, FT3 #### [facility] [address] [address] [address] Rocio Hernandez VLDL CALC 26.2 mg/dL Normal [facility] Comment on above: Performed By: #### T SH, CMP, LIPID, FT3 #### [facility] [address] [address] [address] Rocio Hernandez MICROALB CREAT RATIO RANDOMo n 01-12-2023 mALB <1.3 Normal <=30.0 [facility] Comment on above: Performed By: #### M CRR ####[facility] [address] [place], [place] [address]EkDr. Rocio Hernandez MALB CR RATIO 13.6 mg/g Normal 0.0-29.9 [facility] Comment on above: Performed By: #### M CRR ####[facility] [address] [place] [id number] Hernandez MALB CR RATIO RANGE SEE BELOW Normal [facility] Comment on above: Result Comment: NO M ICROALBUMINURIA 0-29 MG/G CLINICAL MICROALBUMINURIA 30-300 MG/G MACROALBUMINURIA >300 MG/G Performed By: #### M CRR ####[facility] [address] [place] [id number]. Rocio Hernandez URINE CREAT 95.84 mg/dL Normal 20.00-300.00 [facility] Comment on above: Performed By: #### M CRR ####[facility] [address] [place] [id number]. Rocio Hernandez PROF 14(COMP METB)on 023 Albumin [Mass/Vol] 3.8 g/dL Normal 3.4-5.0 [facility] Comment on above: Performed By: #### T SH, CMP, LIPID, FT3 #### [facility] [address] [address] [address] Rocio Hernandez Albumin/Globulin [Mass ratio] 0.9 {ratio} Normal [facility] Comment on above: Performed By: #### T SH, CMP, LIPID, FT3 #### [facility] [address] [address] [address] Rocio Hernandez ALP [Catalytic activity/Vol] 111 U/L Normal 46-116 [facility] Comment on above: Performed By: #### T SH, CMP, LIPID, FT3 #### [facility] [address] [address] [address] Rocio Hernandez ALT [Catalytic activity/Vol] 42 U/L Normal 14-59 [facility] Comment on above: Performed By: #### T SH, CMP, LIPID, FT3 #### [facility] [address] [address] [address] Rocio Hernandez Anion gap [Moles/Vol] 10.8 mmol/L Normal [facility] Comment on above: Performed By: #### T SH, CMP, LIPID, FT3 #### [facility] [address] [address] [address] Rocio Hernandez AST [Catalytic activity/Vol] 24 U/L Normal 15-37 [facility] Comment on above: Performed By: #### T SH, CMP, LIPID, FT3 #### [facility] [address] [place] [address] Dr. Rocio Hernandez Bilirubin [Mass/Vol] 0.4 mg/dL Normal 0.2-1.0 [facility] Comment on above: Performed By: #### T SH, CMP, LIPID, FT3 #### [facility] [address] [place] [address] Dr. Rocio Hernandez Calcium [Mass/Vol] 9.6 mg/dL Normal 8.5-10.1 [facility] Comment on above: Performed By: #### T SH, CMP, LIPID, FT3 #### [facility] [address] [place] [address] Dr. Rocio Hernandez Chloride [Moles/Vol] 93 mmol/L Critically low 98-107 [facility] Comment on above: Performed By: #### T SH, CMP, LIPID, FT3 #### [facility] [address] [place] [address] Dr. Rocio Hernandez CO2 [Moles/Vol] 31.2 mmol/L Normal 21.0-32.0 [facility] Comment on above: Performed By: #### T SH, CMP, LIPID, FT3 #### [facility] [address] [place] [address] Dr. Rocio Hernandez Creatinine [Mass/Vol] 1.02 mg/dL Normal 0.55-1.02 [facility] Comment on above: Performed By: #### T SH, CMP, LIPID, FT3 #### [facility] [address] [address] [address] Rocio Hernandez EGFR-AF COMORAN >60 Normal >=60 [facility] Comment on above: Performed By: #### T SH, CMP, LIPID, FT3 #### [facility] [address] [place] [address] Dr. Rocio Hernandez EGFR-NON AF COMORAN 55 mL/min/1.73m2 Critically low >=60 [facility] Comment on above: Performed By: #### T SH, CMP, LIPID, FT3 #### [facility] [address] [place] [address] Dr. Rocio Hernandez Globulin (S) [Mass/Vol] 4.4 g/dL Normal [facility] Comment on above: Performed By: #### T SH, CMP, LIPID, FT3 #### [facility] [address] [place] [address] Dr. Rocio Hernandez Glucose [Mass/Vol] 102 mg/dL Normal 74-106 [facility] Comment on above: Performed By: #### T SH, CMP, LIPID, FT3 #### [facility] [address] [place] [address] Dr. Rocio Hernandez Potassium [Moles/Vol] 4.0 mmol/L Normal 3.5-5.1 [facility] Comment on above: Performed By: #### T SH, CMP, LIPID, FT3 #### [facility] [address] [place] [address] Dr. Rocio Hernandez Protein [Mass/Vol] 8.2 g/dL Normal 6.4-8.2 [facility] Comment on above: Performed By: #### T SH, CMP, LIPID, FT3 #### [facility] [address] [place] [address] Dr. Rocio Hernandez Sodium [Moles/Vol] 131 mmol/L Critically low 136-145 [facility] Comment on above: Performed By: #### T SH, CMP, LIPID, FT3 #### [facility] [address] [address] [address] Rocio Hernandez Urea nitrogen [Mass/Vol] 6.0 mg/dL Critically low 7.0-18.0 [facility] Comment on above: Performed By: #### T SH, CMP, LIPID, FT3 #### [facility] [address] [address] [address] Rocio Hernandez Urea nitrogen/Creatinine [Mass ratio] 5.9 mg/mg Normal [facility] Comment on above: Performed By: #### T SH, CMP, LIPID, FT3 #### [facility] [address] [address] [address] Rocio Hernandez TSHon 01-12-2023 TSH 5.647 uIU/mL Critically high 0.358-3.740 [facility] Comment on above: Performed By: #### T SH, CMP, LIPID, FT3 #### [facility] [address] [place] [address] Dr. Rocio Hernandez VIT B12 AND FOLATEon 023 Cobalamin (Vitamin B12) [Mass/Vol] 1189.0 pg/mL Critically high 193.0-986.0 [facility] Comment on above: Performed By: #### B 12FOL, FT4 #### [facility] [address] [place] [address] Dr. Rocio Hernandez FOLATE 27.30 ng/mL Normal 8.60-58.90 [facility] Comment on above: Performed By: #### B 12FOL, FT4 #### [facility] [address] [place] [address] Dr. Rocio Hernandez MG MAMM SCREEN 3D TANIA CADon 12-19-2022 MG MAMM SCREEN 3D TANIA CAD Patient: MADAN PERRY Exam Date: 12/19/2022 : 1960 Gender:F Ordering : DR [place] D.O. Admission #: [id number] Family : Order #: [id number] CLICK HERE TO VIEW EXAM RADIOLOGY REPORT [...] ovarian cancer at age 54. LOCATION: [facility] BREAST COMPOSITION: Scattered areas fibroglandular density. [...] Flores M.D. on 12/19/2022 at 11:19 Normal [facility] XR DEXA BONE DENSITYon 12-19 XR [...] by: LIZ FLORES Date: 2022-12-19 10:01 Normal [facility] FREE T3on 03-22-2022 FREE T3 2.43 pg/mlL Normal 2.18-3.98 [facility] Comment on above: Performed By: #### B MP, FT3, TSH ####[facility] [address] [address]Dr. Rocio Hernandez FREE T4on 03-22-2022 Free T4 [Mass/Vol] 1.43 ng/dL Normal 0.76-1.46 [facility] Comment on above: Performed By: #### F T4 ####[facility] [address] [address]Dr. Rocio Hernandez PROF CHEM 8 (BAS METB)on Anion gap [Moles/Vol] 10.2 mmol/L Normal [facility] Comment on above: Performed By: #### B MP, FT3, TSH ####[facility] [address] [place], [place] [address]Dr. Rocio Hernandez Calcium [Mass/Vol] 8.8 mg/dL Normal 8.5-10.1 [facility] Comment on above: Performed By: #### B MP, FT3, TSH ####[facility] [address] [place], [place] [address]Dr. Rocio Hernandez Chloride [Moles/Vol] 104 mmol/L Normal 98-107 [facility] Comment on above: Performed By: #### B MP, FT3, TSH ####[facility] [address] [place], [place] [address]Dr. Rocio Hernandez CO2 [Moles/Vol] 31.7 mmol/L Normal 21.0-32.0 [facility] Comment on above: Performed By: #### B MP, FT3, TSH ####[facility] [address] [place], [place] [address]Dr. Rocio Hernandez Creatinine [Mass/Vol] 0.96 mg/dL Normal 0.55-1.02 [facility] Comment on above: Performed By: #### B MP, FT3, TSH ####[facility] [address] [place], [place] [address]Dr. Rocio Hernandez EGFR-AF COMORAN >60 Normal >=60 [facility] Comment on above: Performed By: #### B MP, FT3, TSH ####[facility] [address] [address]Dr. Rocio Hernandez EGFR-NON AF COMORAN 59 mL/min/1.73m2 Critically low >=60 [facility] Comment on above: Performed By: #### B MP, FT3, TSH ####[facility] [address] [address]Dr. Rocio Hernandez Glucose [Mass/Vol] 110 mg/dL Critically high 74-[address] [facility] Comment on above: Performed By: #### B MP, FT3, TSH ####[facility] [address] [address]Dr. Rocio Hernandez Potassium [Moles/Vol] 2.9 mmol/L Critically low 3.5-5.1 [facility] Comment on above: Result Comment: TEST REPEATED CRITICAL VALUE VERIFIED Performed By: #### B MP, FT3, TSH ####[facility] [address] [address]Dr. Rocio Hernandez Sodium [Moles/Vol] 141 mmol/L Normal 136-145 [facility] Comment on above: Performed By: #### B MP, FT3, TSH ####[facility] [address] [address]Dr. Rocio Hernandez Urea nitrogen [Mass/Vol] 12.0 mg/dL Normal 7.0-18.0 [facility] Comment on above: Performed By: #### B MP, FT3, TSH ####[facility] [address] [address]Dr. Kerendereck Hernandez Urea nitrogen/Creatinine [Mass ratio] 12.5 mg/mg Normal [facility] Comment on above: Performed By: #### B MP, FT3, TSH ####[facility] [address] [address]Dr. Kerendereck Hernandez TSHon 03-22-2022 TSH 0.137 uIU/mL Critically low 0.358-3.740 [facility] Comment on above: Performed By: #### B MP, FT3, TSH ####[facility] [address] [place], [place] [address]XbClem Hernandez Patient Letter FTMCon 2020 Patient Letter FT (Inserted Image. Wilda ble to display) May 26, 2021 MADAN PERRY [address] [place] [address] MADAN PERRY 1960 Dear Madan, This is a SECOND ATTEMPT to remind you that you are due for an appointment with [facility]. Please contact our office at [phone] to schedule an appointment at your earliest convenience. Thank you, [facility] Reminderson 05-26-2021 Reminders - From: Jane Onofre To: [facility] - Reminders/Recalls; Sent: 01/18/2021 12:33:31 EDT Show up: 04/25/2021 12:33:00 EDT Subject: Ambulatory Reminder Due Date/Time: 06/09/2021 12:33:00 EDT Reminder/Recall sara peace 5 year colon 06/09/2021 first recall letter second rcall letter Normal [facility] Patient Letter FTon 2020 Patient Letter FT (Inserted Image. Wilda ble to display) May 05, 2021 MADAN PERRY [address] [facility] [address] [place] [address] MADAN PERRY 1960 Dear Madan, This is a reminder that you are due for an appointment with [facility]. Please contact our office at [phone] to schedule an appointment at your earliest convenience. Thank you, [facility] Vital Signs Date Time Vital Sign Value Performing Clinician Facility 06-27-2024 12:50-0400 Body height 161.29 cm [facility] 06-27-2024 12:50-0400 Body mass index (BMI) [Ratio] 27 kg/m2 [facility] 06-27-2024 12:50-0400 Body weight 70.3 kg [facility] 05-28-2024 13:19-0400 Body height 161.29 cm DO [place] Work Phone: [facility] 05-28-2024 13:19-0400 Body mass index (BMI) [Ratio] 26.5 kg/m2 DO [place] Work Phone: [facility] 05-28-2024 13:19-0400 Body weight 69.11 kg DO [place] Work Phone: [facility] 05-09-2022 16:35-0400 Body height 161.29 cm Adilia Mederos Other [facility] 05-09-2022 16:35-0400 Body mass index (BMI) [Ratio] 25.63 kg/m2 Adilia Mederos Other [facility] 05-09-2022 16:35-0400 Body temperature 97.8 [degF] Adilia Mederos Other [facility] Other 05-09-2022 16:35-0400 Body weight 66.68 kg Adilia Mederos Other [facility] Other 05-09-2022 16:35-0400 Diastolic blood pressure 79 mm[Hg] Adilia Mederos Other [facility] 05-09-2022 16:35-0400 Respiratory rate 18 /min Adilia Mederos Other [facility] 05-09-2022 16:35-0400 SaO2% (BldA) [Mass fraction] 98 % Adilia Mederos Other [facility] Other 05-09-2022 16:35-0400 Systolic blood pressure 136 mm[Hg] Adilia Rosa M Other [facility] Other 07-21-2021 16:05-0400 Body height 161.29 cm Lilian Ferreira Other [facility] Other 07-21-2021 16:05-0400 Body mass index (BMI) [Ratio] 26.5 kg/m2 Lilian Ferreira Other [facility] Other 07-21-2021 16:05-0400 Body temperature 96.2 [degF] Lilian Ferreira Other [facility] Other 07-21-2021 16:05-0400 Body weight 68.95 kg Lilian Ferreira Other [facility] Other 07-21-2021 16:05-0400 Diastolic blood pressure 95 mm[Hg] Lilian Clarkmond Other [facility] Other 07-21-2021 16:05-0400 Respiratory rate 18 /min Lilian Hanna Other [facility] Other 07-21-2021 16:05-0400 SaO2% (BldA) [Mass fraction] 99 % Lilian Hanna Other [facility] Other 07-21-2021 16:05-0400 Systolic blood pressure 132 mm[Hg] Lilian Hanna Other [facility] Other 06-22-2021 14:20-0400 Body height 161.29 cm Adilia Rosa M Other [facility] Other 06-22-2021 14:20-0400 Body mass index (BMI) [Ratio] 25.98 kg/m2 Adilia Mederos Other [facility] Other 06-22-2021 14:20-0400 Body temperature 96.4 [degF] Adilia Mederos Other [facility] Other 06-22-2021 14:20-0400 Body weight 67.59 kg Adilia Mederos Other [facility] Other 06-22-2021 14:20-0400 Diastolic blood pressure Adilia Mederos Other [facility] Other 06-22-2021 14:20-0400 Respiratory rate 18 /min Adilia Mederos Other [facility] Other 06-22-2021 14:20-0400 SaO2% (BldA) [Mass fraction] 98 % Adilia Mederos Other [facility] Other 06-22-2021 14:20-0400 Systolic blood pressure 111 mm[Hg] Adilia Mederos Other [facility] Other Encounters Encounter Date Encounter Type Care Provider Facility Start: 06-27-2024 End: 06-27-2024 ambulatory [facility] Work Phone: Start: 06-27-2024 End: 06-27-2024 Patient encounter procedure [facility] Work Phone: Start: 06-11-2024 End: 06-11-2024 Yanivboo daren Saez [employer]IOR BUSINESS [employer]OKER Work Phone: [facility] Start: 06-11-2024 End: 06-11-2024 Bamboo flowsheet Ivy Elliotter [employer]ER Work Phone: [facility] Start: 06-11-2024 End: 06-11-2024 Office outpatient visit 15 minutes Ivy Elliotter [employer] BUSINESS BROKER Work Phone: [facility] Comment on above: Dermatofibroma (Prim maurisio Dx); Angioma of skin; Lentigines; Garcia angioma; Other nonthrombocytopenic purpura ([facility]) Start: 06-11-2024 End: 06-11-2024 ambulatory IVY ELLIOTTER Not Available Start: 05-28-2024 End: 05-28-2024 ambulatory DO [place] Work Phone: [facility] Work Phone: Start: 05-28-2024 End: 05-28-2024 Patient encounter procedure DO [place] Work Phone: [facility] Neurosurgery Work Phone: Start: 05-20-2024 End: 05-20-2024 ambulatory Meet Harp [facility] Start: 05-13-2024 End: 05-13-2024 ambulatory Meet Harp MD [facility] Start: 03-14-2024 End: 03-14-2024 ambulatory [facility] Start: 02-28-2024 End: 02-28-2024 ambulatory DO [place] Work Phone: [facility] Work Phone: Start: 02-28-2024 End: 02-28-2024 Departed Referred DO [place] Work Phone: [facility] Start: 02-20-2024 End: 02-20-2024 ambulatory [facility] Start: 01-15-2024 End: 01-15-2024 ambulatory Meet Harp MD Facility: [facility] Start: 12-04-2023 End: 12-04-2023 ambulatory Meet aHrp MD Facility[facility] Start: 11-06-2023 End: 11-06-2023 ambulatory Meet Harp MD Facility[facility] Start: 10-09-2023 End: 10-09-2023 ambulatory Meet Harp MD Facility:[facility] Start: 08-25-2023 End: 08-25-2023 ambulatory ALIZA AGUILAR Facility:[facility] Start: 08-25-2023 End: 08-25-2023 Office outpatient visit 15 minutes Aliza Aguilar MD Work Phone: [facility] [address] [place] [address] Ctr Orthopedics Comment on above: Hand arthritis (Prim maurisio Dx) Start: 08-21-2023 End: 08-21-2023 ambulatory Meet Harp MD Facility:[facility] Start: 08-19-2023 Letter encounter Yesy Covarrubias OT Work Phone: [facility] Start: 07-31-2023 End: 07-31-2023 ambulatory Meet Harp MD Facility:[facility] Start: 07-24-2023 End: 07-24-2023 ambulatory Meet Harp MD Facility:[facility] Start: 07-20-2023 End: 07-20-2023 Patient encounter procedure DO [place] Work Phone: [facility] [address] Work Phone: Start: 07-20-2023 End: 07-20-2023 ambulatory DO [place] Work Phone: [facility] Work Phone: Start: 07-10-2023 End: 07-10-2023 ambulatory Meet Harp MD Facility:[facility] Start: 06-16-2023 End: 06-17-2023 ambulatory UNKNOWN PROVIDER Facility:[facility] Start: 06-16-2023 End: 06-16-2023 Office outpatient visit 25 minutes Aliza Aguilar MD Work Phone: [facility] Surg Ctr Orthopedics Comment on above: Left hand pain (Prim maurisio Dx) Start: 06-16-2023 End: 06-16-2023 Subsequent hospital visit by physician [facility] Op Op X-Ray 1 Work Phone: [facility] Surg Ctr Diag Radiology Comment on above: Left hand pain Start: 02-07-2023 End: 02-08-[address] [place] Facility:[facility] Start: 01-27-2023 End: 01-28-[address] [place] Facility:[facility] Start: 01-23-2023 End: 02-22-2023 ambulatory SHAIKH Eduardo ROSS Facility:[facility] Start: 01-16-2023 Encounter for genera l adult medical examination without abnormal findings DR [place] [facility] Start: 01-12-2023 End: 01-13-[address] [place] Facility:[facility] Start: 01-12-2023 End: 01-13-2023 Encounter for general adult medical examination without abnormal findings DR ATNK LAKE Facility:[facility] Start: 12-26-2022 End: 01-20-2023 ambulatory [...] Letter encounter Yesy Covarrubias OT Work Phone: [facility] Start: 05-09-2022 End: 05-09-2022 ambulatory Adilia Mederos Other [facility] Other Start: 05-09-2022 Office outpatient vi sit [...] above: Order Comment: FACIL ITY: [facility] - SECOR [id number] Performed By: #### C BC/D3, ESRCRP, RHF, URCA #### [facility] [address] [place], [address] Start: 08-25-2023 Injection 1 tendon sheath/ligament aponeurosis Aliza Aguilar MD Work Phone: Start: 06-16-2023 Radex hand minimum 3 views Aliza Aguilar MD Work Phone: Plan of Treatment Date Care Activity Detail Author Start: 06-04-2028 Tetanus vaccination Tetanus (T d or Tdap) Booster [facility] Start: 01-13-2028 Cholesterol [Mass/volume] in Serum or Plasma Cholesterol [facility] Start: 06-12-2025 End: 06-12-2025 Patient encounter procedure 06/12/2025 1:05 PM EDT Office Visit [facility] [address] [place] [address] Ivy Saez, THREAD W[employer]ER[employer]IOR BUSINESS BROKER [address] [place] [address] [facility] Start: 06-26-2024 Pneumococcal Vaccine : 65+ Years (3 of 3 - PPSV23 or PCV20) Pneumococcal Vaccine: 65+ Years (3 of 3 - PPSV23 or PCV20) [facility] Start: 06-11-2024 End: 06-11-2024 Patient encounter procedure 06/11/2024 1:05 PM EDT Office Visit [facility] [address] [place] [address] Ivy Saez, [employer]IOR [employer] BROKER [address] [place] [address] Arrived [facility] Comment on above: Arrived Start: 05-28-2024 Patient referral [facility] Work Phone: Start: 05-26-2024 Influenza vaccination Influenza Vacc ine (#1) [facility] Start: 08-25-2023 End: 08-25-2023 Patient encounter procedure 08/25/2023 11:30 AM EST Office Visit [facility] Surg Ctr Orthopedics [address] [place] [address] Aliza Aguilar MD [address] [facility] [place] [id number] [facility] S[facility] Orthopedics Start: 07-20-2023 XR pre/post mri xray XR pre/post mri xray [facility] Start: 07-20-2023 [facility] Start: 07-20-2023 MR Wrist - left WO contrast [facility] Start: 07-20-2023 MRI of left wrist MR wrist LT wo con [facility] Start: 07-20-2023 MR Hand - left WO contrast [facility] Start: 07-20-2023 MRI of left hand MR hand LT wo con [facility] Start: 06-25-2023 Influenza vaccination Influenza Vacc ine (#1) [facility] Start: 06-16-2023 End: 06-16-2024 MR Wrist - left WO contrast MR WRIST LEFT W/O Imaging Routine Left hand pain Expected: 06/16/2023, Expires: 06/16/2024 [facility] Work Phone: Comment on above: Expected: [...] Screening for malign ant neoplasm of cervix [facility] Start: 02-11-1980 Screening for malign ant neoplasm of cervix Pap Smear [facility] Start: 1977 Hepatitis C screening Hepatitis C [facility] Start: 1974 HIV screening HIV Test [facility] Start: 1959 COVID-19 Vaccine ( formulation) COVID-19 Vaccine ( formulation) [facility] Start: 1959 Screening for malign ant neoplasm of colon [facility] Patient referral [facility] Work Phone: Immunizations Immunization Date Immunization Notes Care Provider [facility] 08-11-2023 influenza, injectabl e, quadrivalent, preservative free Aliza Aguilar MD Work Phone: [facility] 08-11-2023 Respiratory syncytia l virus (RSV), vaccine, bivalent, protein subunit RSV prefusion F, diluent reconstituted, 0.5 mL, preservative free (NCF=432) Aliza Aguilar MD Work Phone: [facility] 08-11-2023 influenza virus vacc ine, unspecified formulation Ivy Saez [employer]ER Work Phone: [facility] 06-18-2022 influenza, injectabl e, quadrivalent, preservative free Aliza Aguilar MD Work Phone: [facility] 06-18-2022 influenza virus vacc ine, unspecified formulation Aliza Aguilar MD Work Phone: [facility] 02-05-2022 Pfizer Monovalent (1 2+ yrs) SARS-COV-2 (COVID-19) vaccine, mRNA, spike protein, LNP, pres. free, 30 mcg/0.3mL dose, betito-sucrose (YJF=779) Aliza Aguilar MD Work Phone: [facility] 08-11-2021 influenza, injectabl e, quadrivalent, preservative free Yesy Marci OT Work Phone: [facility] 08-11-2021 influenza virus vacc ine, unspecified formulation Yesy Marci OT Work Phone: [facility] 07-24-2020 zoster vaccine recombinant K athryn Marci OT Work Phone: [facility] 07-11-2020 Influenza, injectabl e, Madin Christal Canine Kidney, preservative free, quadrivalent Yesy Marci OT Work Phone: [facility] 04-18-2020 zoster vaccine recombinant K dengryn Marci OT Work Phone: [facility] 08-28-2019 Influenza, injectabl e, Madin Christal Canine Kidney, preservative free, quadrivalent Yesy Marci OT Work Phone: [facility] 07-01-2019 influenza, high dose seasonal, preservative-free Yesy Marci OT Work Phone: [facility] 06-25-2019 pneumococcal polysaccharide vaccine, 23 valent Yesy Marci OT Work Phone: [facility] 07-06-2018 influenza, injectabl e, quadrivalent, contains preservative Yesy Marci OT Work Phone: [facility] 06-04-2018 tetanus toxoid, redu karen diphtheria toxoid, and acellular pertussis vaccine, adsorbed Yesy Marci OT Work Phone: [facility] 08-19-2017 influenza, injectabl e, quadrivalent, preservative free Yesy Marci OT Work Phone: [facility] 08-09-2017 influenza, injectabl e, quadrivalent, contains preservative Yesy Marci OT Work Phone: [facility] 08-01-2016 influenza, injectabl e, quadrivalent, preservative free Yesy Marci OT Work Phone: [facility] 07-11-2015 influenza, injectabl e, madin christal canine kidney, preservative free Yesy Marci OT Work Phone: [facility] 07-11-2015 pneumococcal conjuga te vaccine, 13 valent Yesy Covarrubias OT Work Phone: [facility] 08-13-2009 novel influenza-H1N1 -09, preservative-free, injectable Yesy Covarrubias OT Work Phone: [facility] 07-17-2009 influenza virus vacc ine, unspecified formulation Yesy Covarrubias OT Work Phone: [facility] 08-15-2008 influenza virus vacc ine, unspecified formulation Yesy Covarrubias OT Work Phone: [facility] Payers Date Payer Category Payer Self-pay [id number] 2018 Unknown [id number] [id number] 2013 Medicare [id number]. 1.13.56.2.7.3.67 [id number] 1959 Blue Cross Blue Shield [id number] 2.16.840.1.632799.19 1959 Medicare [id number] 2.16.840.1.262661.19 1959 Unknown [id number] 2.16.840.1.295310.3.579.2.59 1959 Unknown [id number] 2.16.840.1.106288.3.579.2.593 1959 Unknown [id number] 2.16.840.1.227690.3.579.2.59 1959 Unknown [id number] 2.16.840.1.138312.3.579.2.593 1959 Unknown [id number] 2.16.840.1.576746.3.579.2.59 1959 Unknown [id number] 2.16.840.1.433964.3.579.2.593 1959 Unknown [id number] 2.16.840.1.670195.3.579.2.593 1959 Unknown [id number] 2.16.840.1.739822.3.579.2.593 1959 Unknown [id number] 2.16.840.1.447339.3.579.2.593 1959 Unknown [id number] 2.16.840.1.493861.3.579.2.593 1959 Unknown [id number] 2.16.840.1.646367.3.579.2.593 1959 Unknown [id number] 2.16.840.1.974845.3.579.2.593 1959 Unknown [id number] 2.16.840.1.563300.3.579.2.59 1959 Unknown [id number] 2.16.840.1.569594.3.579.2.593 1959 Unknown [id number] 2.16.840.1.259731.3.579.2.593 1959 Unknown [id number] 2.16.840.1.941916.3.579.2.593 1959 Unknown [id number] 2.16.840.1.519670.3.579.2.593 1959 Unknown [id number] 2.16.840.1.992440.3.579.2.593 1959 Unknown [id number] 2.16.840.1.000852.3.579.2.593 1959 Unknown [id number] 2.16.840.1.736471.3.579.2.593 1959 Unknown [id number] 2.16.840.1.209525.3.579.2.732 1959 Unknown [id number] 2.16.840.1.602736.3.579.2.732 1959 Unknown [id number] 2.16.840.1.079672.3.579.2.732 1959 Unknown [id number] 2.16.840.1.518755.3.579.2.1286 1959 Unknown [id number] 2.16.840.1.378010.3.579.2.1286 1959 Unknown [id number] 2.16.840.1.525248.3.579.2. 1959 Unknown [id number] 2.16.840.1.075498.3.579.2. 1959 Unknown [id number] 2.16.840.1.139996.3.579.2.196 1959 Unknown [id number] 2.16.840.1.459080.3.579.2. 1959 Unknown [id number] 2.16.840.1.910088.3.579.2.196 1959 Unknown [id number] 2.16.840.1.330610.3.579.2. 1959 Unknown [id number] 2.16.840.1.259606.3.579.2.196 1959 Unknown [id number] 2.16.840.1.890212.3.579.2. 1959 Unknown [id number] 2.16.840.1.605495.3.579.2. 1959 Unknown [id number] 2.16.840.1.453998.3.579.2. 1959 Unknown [id number] 2.16.840.1.026493.3.579.2.1259 Medicare Medicare Nonpatient [id number] Unknown [id number] 2.16.840.1.496236.3.579.2.531 Unknown [id number] 2.16.840.1.678305.3.579.2.531 Social History Date Type Detail Facility Unknown if ever smoked [facility] [employer] Other Start: 05-22-2023 End: 06-11-2024 Sex Assigned At [facility] [employer] Other Start: 05-31-2019 End: 06-27-2024 Tobacco smoking [...] Start: 1960 Sex Assigned At Female F [facility] Start: 05-22-2023 Tobacco smoking stat us [facility] Never smoked tobacco [facility] Start: 05-22-2023 End: 06-11-2024 History of Social function [facility] Medical Equipment Procedure Code Equipment Code Equipment Origin al Text Equipment Identifier 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 Patient Office Note or Post OP [...] MD Injection Procedure.[facility] 08/25/2023 [id number] Madan Perry The patient requested an injection [...] a dressing applied. documented in this encounter [facility] 06-16-2023 Note Addended by: ALIZA AGUILAR on: 06/16/2023 11:34 AM Modules accepted: Orders [facility] 06-16-2023 Miscellaneous Notes Addended by: ALIZA AGUILAR on: 06/16/2023 11:34 AM Modules accepted: Orders documented in this encounter [facility] 06-16-2023 History of Presen t illness [...] continues on coumadin. documented in this encounter [facility] 05-09-2022 Evaluation note Encounter Date Diagnosis [...] Xray that was ordered outpatient by PCP [facility] 08-10-2022 NotePROCEDURE: XR FOOT RT MIN 3 VIEWS COMPARISON: None. HISTORY: Pain in right foot FINDINGS: BONES:No fracture, acute abnormality, or significant arthropathy. Mild enthesopathic spurring of the calcaneus at the Achilles insertion SOFT TISSUES:Negative. No visible soft tissue swelling. EFFUSION:None visible. OTHER: Negative. IMPRESSION: No acute abnormality Electronically authenticated by: MARTINEZ HARVEY Date: 2022-05-04 16:22[facility]10-27-2021 Evaluation note* Encounter Date Diagnosis Assessment Notes Treatment Notes Treatment Clinical Notes Jun, Swelling of left elbow (ICD-10 - M25.422) Jun, Other Patient refe rred to the ER due to swelling, ecchymosis, pain of her left elbow with no known injury. It is felt the patient needs blood work to evaluate [facility] 09-28-2021 Evaluation note* Encounter Date Diagnosis Assessment Notes Treatment Notes Treatment Clinical Notes May, Bee sting, undetermined intent, initial encounter (ICD-10 - T63.444A) May continue Xyzal and Benadryl as directed. [facility] Evaluation note* Diagnosis Left hand pain- Primary Pain in limb Left hand pain Pain in [facility] Left hand pain Pain in limb [facility] Work Phone: Evaluation note* Diagnosis Hand arthritis- Primary Unspecified arthropathy, hand [facility] Diagnosis Onset Date Resolution Status Thoracic back pain acute [facility] Work Phone: Evaluation note* Diagnosis Dermatofibroma- Primary [...] second t roseann Hospitalization History see above [facility] Hospital Discharge instructionsAmbulatory Orders* Referral to Speech/PT/OT (PT/OT/SP) Location: None [facility] Work Phone: Summary Purpose Family History [...] Left hand pain Aliza Aguilar MD [address] [place] [address] Referral ID Status Reason Start Date Expiration Date Visits Requested Visits Authorized [id number] Authorized Patient Preference 06/16/2023 06/16/2024 3 3 Comments [place] home, [place], [place] Specialty Diagnoses / Procedures Referred By Randi cardona Referred To Contact Radiology Diagnoses Left hand pain Procedures MR WRIST LEFT W/O Aliza Aguilar MD [address] [place] [address] [address] [place] [address] Referral ID Status Reason Start Date Expiration Date V isits Requested Visits Authorized [id number] Authorized 06/16/2023 06/15/2024 1 1 Specialty Diagnoses / Procedures Referred By Contac t Referred To Contact Radiology Diagnoses Left hand pain Procedures XR HAND LEFT 3 VIEWS [facility] [address] [place], [place] [phone] [facility] DI[facility]IC RADIOLOGY [address] [facility] [place] [address] Referral ID Status Reason Start Date Expiration Date Visits Re quested Visits Authorized [id number] Closed 06/16/2023 06/15/2024 1 1 Chief Complaint and Reason for Visit Chief Complaint median nerve karel krista Chief Complaint Unknown Chief Complaint Unknown DISC DEGENERATION-THORACIC AREA Chief Complaint DISC DEGENERATION-TH ORACIC AREA review MRI, F/u after PT Reason for Visit Thoracic back pain Additional Source Comments INFORMATION SOURCE (unrecogn ized section and content) DATE CREATED AUTHOR 05/27/2021 [facility] DATE CREATED AUTHOR AUTHOR'S ORGANIZ ATION 03/03/2023 [facility] DATE CREATED AUTHOR AUTHOR'S ORGANIZ ATION 08/28/2023 [facility] DATE CREATED AUTHOR AUTHOR'S ORGANIZ ATION 02/29/2024 [facility] DATE CREATED AUTHOR AUTHOR'S ORGANIZ ATION 03/16/2024 [facility] DATE CREATED AUTHOR AUTHOR'S ORGANIZ ATION 05/24/2024 [facility] DATE CREATED AUTHOR AUTHOR'S ORGANIZ ATION 06/13/2024 [facility] EPIC DATE CREATED AUTHOR AUTHOR'S ORGANIZ ATION 10/03/2024 [facility] REASON FOR VISIT (unrecogniz ed section and content) Reason Comments Hand/finger symptoms Specialty Diagnoses / Procedures Referred By Contac t Referred To Contact Radiology Diagnoses Left hand pain Procedures XR HAND LEFT 3 VIEWS [facility] [address] [place], [place] [phone] [facility] DI[facility]IC RADIOLOGY [address] [facility] [address] [place] [id number] Referral ID Status Reason Start Date Expiration Date Visits Re quested Visits Authorized [id number] Closed 06/16/2023 06/15/2024 1 1 Reason Comments Hand/finger symptoms Reason Comments Skin Check Suspicious Skin Lesion Care Teams (unrecognized sec tion and content) 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 Start Date End Date Yesy Covarrubias, OT [address] [facility] [address] Occupational Therapist Occupational Therapy 06/30/20 Aliza Aguilar MD [address] [place] [address] Physician Orthopaedic Hand Service 06/30/20 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 Start Date End Date Yesy Covarrubias, OT [address] [place] [address] [place] [address] Occupational Therapist Occupational Therapy 06/30/20 Aliza Aguilar MD [address] [place] [address] Physician Orthopaedic Hand Service 06/30/20 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 Start Date End Date Yesy Covarrubias OT [address] [place] [address] [place] [address] Occupational Therapist Occupational Therapy 06/30/20 Aliza Aguilar MD [address] [place] [address] Physician Orthopaedic Hand Service 06/30/20 Team Status: Active Member Role Status Dates [place] , DO Primary Care Provider Active Team Status: Inactive Member Role Status Dates [place] , DO Primary Care Provider Active Aliza Aguilar Attending Provider Active 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 [facility]. provides no warranty or guarantee of the accuracy or completeness of information in this document.
--- NOTE | 2024-10-30 01:13 | ED_ITS ---
HPI - Epistaxis General Chief Complaint: Epistaxis Stated Complaint: NOSEBLEED Time Seen by Provider: 10/30/24 00:49 Source: patient Mode of arrival: walk-in Limitations: no limitations History of Present Illness HPI Narrative: This 64-year-old female who is on Coumadin presents for evaluation of a nosebleed. Symptoms started earlier this evening. She has had nosebleeds in the past and applied a clamp to her nose but has continually had bleeding from the right side of her nose. She states that she has recently had an upper respiratory tract infection. She states she had her Coumadin level checked recently and it was over 7 but it was rechecked and it was 3.6. She denies any chest pain or shortness of breath. She denies any dizziness or syncope. Related Data Home Medications ?Medication ?Instructions ?Recorded ?Confirmed acyclovir 400 mg tablet 400 mg PO DAILY 06/16/23 05/13/24 amitriptyline 100 mg tablet 100 mg PO BEDTIME 06/16/23 05/13/24 aripiprazole 10 mg tablet 10 mg PO BEDTIME 06/16/23 05/13/24 atorvastatin 10 mg tablet 10 mg PO QDAY 06/16/23 05/13/24 biotin 10,000 mcg-keratin 100 mg 1 tab PO QDAY 06/16/23 05/13/24 tablet (Biotin Plus Keratin) rorkptqfqi-ermuwhtbbulid-dunmswsj 1 cap PO Q6H PRN pain 06/16/23 05/13/24 50 mg-300 mg-40 mg capsule cholecalciferol (vitamin D3) 50 50 mcg PO DAILY 06/16/23 05/13/24 mcg (2,000 unit) capsule (Vitamin D3) cyanocobalamin (vitamin B-12) 1,000 mcg IM .monthly 06/16/23 05/13/24 1,000 mcg/mL injection solution fremanezumab-vfrm 225 mg/1.5 mL 225 mg subcut .monthly 06/16/23 05/13/24 subcutaneous auto-injector (Ajovy) hydrochlorothiazide 12.5 mg tablet 12.5 mg PO QDAY 06/16/23 05/13/24 hydrocodone 5 mg-acetaminophen 325 1 tab PO TID PRN pain 06/16/23 05/02/24 mg tablet hydroxyzine HCl 25 mg tablet 25 mg PO BEDTIME 06/16/23 05/13/24 levothyroxine 125 mcg tablet 125 mcg PO .every morning 06/16/23 05/13/24 linaclotide 72 mcg capsule 145 mcg PO QDAY 06/16/23 05/13/24 (Linzess) lisinopril 5 mg tablet 5 mg PO QDAY 06/16/23 05/13/24 melatonin 10 mg capsule 10 mg PO DAILY 06/16/23 05/13/24 montelukast 10 mg tablet 10 mg PO QDAY 06/16/23 05/13/24 omeprazole 40 mg capsule,delayed 40 mg PO BID 06/16/23 05/13/24 release potassium chloride 10 mEq 20 meq PO BID 06/16/23 05/13/24 tablet,extended release(part/cryst) vilazodone 40 mg tablet 40 mg PO QDAY 06/16/23 05/13/24 vit C 250 mg-vit E 90 mg-zinc 40 1 tab PO BID 06/16/23 05/13/24 mg-copper 1 jj-eruqdu-uyrkgn capsule (PreserVision AREDS-2) warfarin 1 mg tablet 1 mg PO .qtuesday 06/16/23 05/13/24 warfarin 2 mg tablet 2 mg PO QDAY 06/16/23 05/13/24 aspirin 81 mg tablet,delayed 81 mg PO DAILY 07/17/23 05/13/24 release (Adult Aspirin Regimen) meclizine 12.5 mg tablet 12.5 mg PO BID PRN dizziness 07/17/23 05/13/24 ondansetron HCl 4 mg tablet 4 mg PO Q12H PRN nausea and 07/17/23 05/13/24 vomiting fluticasone fur. 200 mcg-umeclid 1 inh inhalation Q24H 02/23/24 05/13/24 62.5 mcg-vilant 25 mcg inhalat.powder (Trelegy Ellipta) tizanidine 4 mg tablet 4 mg PO TID 02/23/24 05/13/24 Previous Rx's ?Medication ?Instructions ?Recorded sucralfate 1 gram tablet 1 g PO Q6H 4 weeks #112 tabs 02/28/24 lidocaine 5 % topical patch 1 patch topical Q24H #30 ea 02/29/24 buprenorphine 5 mcg/hour weekly 1 patch transdermal Q7D #4 ea 05/20/24 transdermal patch (Butrans) Allergies Allergy/AdvReac Type Severity Reaction Status Date / Time Iodinated Contrast Media Allergy Unknown Verified 05/13/24 07:48 latex Allergy Unknown Verified 05/13/24 07:48 erythromycin base AdvReac Severe Unknown Verified 05/13/24 07:48 Penicillins AdvReac Severe Anaphylaxis Verified 05/13/24 07:48 cephalexin (From Keflex) AdvReac Intermediate Hives Verified 05/13/24 07:48 doxycycline AdvReac Intermediate Hives Verified 05/13/24 07:48 iodine AdvReac Intermediate Hives Verified 05/13/24 07:48 morphine AdvReac Intermediate Vomiting Verified 05/13/24 07:48 oxycodone (From Percocet) AdvReac Intermediate Vomiting Verified 05/13/24 07:48 procaine (From Novocain) AdvReac Intermediate Migraine Verified 05/13/24 07:48 ciprofloxacin (From Cipro) AdvReac Mild Hives Verified 05/13/24 07:48 Review of Systems ROS Status of ROS 10 or more systems reviewed and unremark able except as noted in history and below [facility] Medical History (Updated 10/30/24 @ 02:08 by Lulu Krishnamurthy MD) Anemia ?D64.9 - Anemia, unspecified (ICD-10) History of blood transfusion (1997) ?Z92.89 - Personal history of other medical treatment (ICD-10) Panic attacks ?F41.0 - Panic disorder [episodic paroxysmal anxiety] (ICD-10) Depression ?F32.A - Depression, unspecified (ICD-10) Anxiety ?F41.9 - Anxiety disorder, unspecified (ICD-10) COVID-19 ?U07.1 - COVID-19 (ICD-10) Chronic obstructive pulmonary disease ?J44.9 - Chronic obstructive pulmonary disease, unspecified (ICD-10) Migraine ?G43.909 - Migraine, unspecified, not intractable, without status migrainosus (ICD-10) Urinary tract infection ?N39.0 - Urinary tract infection, site not specified (ICD-10) Presence of vena cava filter ?Z95.828 - Presence of other vascular implants and grafts (ICD-10) Hypertension ?I10 - Essential (primary) hypertension (ICD-10) Osteoarthritis ?M19.90 - Unspecified osteoarthritis, unspecified site (ICD-10) Hypothyroid ?E03.9 - Hypothyroidism, unspecified (ICD-10) Stage 3 chronic kidney disease ?N18.30 - Chronic kidney disease, stage 3 unspecified (ICD-10) Colitis ?K52.9 - Noninfective gastroenteritis and colitis, unspecified (ICD-10) DVT (deep venous thrombosis) ?I82.409 - Acute embolism and thrombosis of unspecified deep veins of unspecified lower extremity (ICD-10) Surgical History S/P epidural steroid injection ?Z92.241 - Personal history of systemic steroid therapy (ICD-10) H/O hand surgery ?Z98.890 - Other specified postprocedural states (ICD-10) History of carpal tunnel release ?Z98.890 - Other specified postprocedural states (ICD-10) History of bladder suspension procedure ?Z98.890 - Other specified postprocedural states (ICD-10) ?Z87.448 - Personal history of other diseases of urinary system (ICD-10) History of hernia repair ?Z98.890 - Other specified postprocedural states (ICD-10) ?Z87.19 - Personal history of other diseases of the digestive system (ICD-10) Hx of cholecystectomy ?Z90.49 - Acquired absence of other specified parts of digestive tract (ICD- 10) H/O colonoscopy ?Z98.890 - Other specified postprocedural states (ICD-10) History of esophagogastroduodenoscopy (EGD) ?Z98.890 - Other specified postprocedural states (ICD-10) History of decompression of ulnar nerve ?Z98.890 - Other specified postprocedural states (ICD-10) History of appendectomy ?Z90.49 - Acquired absence of other specified parts of digestive tract (ICD- 10) History of hysterectomy ?Z90.710 - Acquired absence of both cervix and uterus (ICD-10) Delivery by section History of laparoscopy ?Z98.890 - Other specified postprocedural states (ICD-10) Family History Other Cancer Family history of aneurysm Family history of diabetes mellitus Family history of heart disease Family history of hypertension Social History Within the past year, how often did you have a drink containing alcohol: never Score interpretation: A score less than 3 is consistent with normal alcohol consumption. Smoking status: Former smoker Non-prescribed substance use: denies use Highest level of school completed/degree received: some college, no degree Little interest or pleasure in doing things: not at all Feeling down, depressed, or hopeless: not at all Exam Narrative Exam Narrative: Vital signs and Nursing Notes reviewed: Patient has a normal pulse, elevated blood pressure at 160/85, she has not hypoxic with pulse ox of 97% on room air General: Awake, alert, oriented, anxious adult female, no respiratory distress HEENT: Normocephalic atraumatic, mucous membranes are moist and pink, eyes are clear, normal conjunctiva, vision is grossly intact, there is active bleeding coming from the right side of the nose with a large occlusive clot in the right nasopharynx. The left side does not appear to have any active bleeding Neck: Supple, no meningeal signs, no anterior or posterior cervical lymphadenopathy Chest: Lungs are clear to auscultation with good air entry, there is no wheezing rhonchi or rales appreciated no accessory muscle use, patient is speaking in complete sentences-no chest wall tenderness to palpation CVS: Regular rate and rhythm S1-S2, no murmurs rubs or gallops, pulses are brisk and equal bilaterally ABD: Soft, nondistended, nontender, no rebound guarding or rigidity, bowel sounds are normal, no pulsatile masses appreciated Extremities: Moving all extremities, no lower extremity tenderness or swelling noted, negative Homans' sign, pulses are brisk and equal bilaterally Skin: Normal in appearance without rash,pallor, petechiae or purpura Neuro: No focal deficits Constitutional Vital Signs, click to edit/add: Last Vital Signs Pulse 89 10/30/24 00:47 Resp 20 10/30/24 00:47 BP 160/85 H 10/30/24 00:47 Pulse Ox 97 10/30/24 00:47 O2 Del Method Room Air 10/30/24 00:47 Course Vital Signs Vital signs: Vital Signs Pulse Rate 89 10/30/24 00:47 Respiratory Rate 20 10/30/24 00:47 Blood Pressure 160/85 H 10/30/24 00:47 Pulse Oximetry 97 10/30/24 00:47 Oxygen Delivery Method Room Air 10/30/24 00:47 Pulse Rate 89 10/30/24 00:47 Respiratory Rate 20 10/30/24 00:47 Blood Pressure 160/85 H 10/30/24 00:47 Pulse Oximetry 97 10/30/24 00:47 Oxygen Delivery Method Room Air 10/30/24 00:47 MDM - Epistaxis MDM Narrative Medical decision making narrative: This 64-year-old female who is on Coumadin for history of blood clots who is INR was recently greater than 7 presents for evaluation of a nosebleed that started earlier in the evening. She states that she has been having upper respiratory symptoms recently. She had a very large clot in her right nostril that was gently removed. She was then packed with Merocel and her bleeding stopped. Her hemoglobin is stable and INR is 2.96. She feels comfortable being discharged home with the packing in place in her right nostril. She will also be given the Afrin to keep the packing moist. I instructed her to use the Afrin on the packing in 24 to 36 hours then gently remove the packing if she feels comfortable doing so. Lab Data Labs: Lab Results 10/30/24 Range/Units 01:10 WBC 5.6 (4.0-11.0) 10^3/uL RBC 4.08 L (4.20-5.40) 10^6/uL Hgb 11.9 L (12.0-16.0) g/dL Hct 35.8 L (36.0-48.0) % MCV 87.7 (81.0-99.0) fL MCH 29.2 (26.7-34.0) pg MCHC 33.2 (29.9-35.2) g/dL RDW 13.8 (11.0-15.0) % Plt Count 385 (150-450) 10^3/uL MPV 9.0 L (9.5-13.5) fL Neut % (Auto) 66.1 (43.0-75.0) % Lymph % (Auto) 19.1 L (20.5-60.0) % Kingfisher % (Auto) 9.8 (1.7-12.0) % Eos % (Auto) 3.7 (0.9-7.0) % Baso % (Auto) 1.1 (0.2-2.0) % Neut # (Auto) 3.7 (1.4-6.5) 10^3/uL Lymph # (Auto) 1.1 L (1.2-3.8) 10^3/uL Kingfisher # (Auto) 0.6 (0.3-0.8) 10^3/uL Eos # (Auto) 0.2 (0.0-0.7) 10^3/uL Baso # (Auto) 0.1 (0.0-0.1) 10^3/uL Abs Immat Gran (auto) 0.01 (0.00-0.03) 10^3/uL Imm/Tot Granulo (auto) 0.2 (0.0-0.5) % PT 28.2 H (9.0-11.6) sec INR 2.96 Discharge Plan Discharge Chief Complaint: Epistaxis Clinical Impression: Epistaxis, Warfarin anticoagulation Prescriptions / Home Meds: No Action warfarin 2 mg tablet 2 mg PO QDAY Rx Instructions: 2mg everyday, 3mg every Monday warfarin 1 mg tablet 1 mg PO .qtday Rx Instructions: Pt takes 1mg with 2mg for total of 3mg every Monday acyclovir 400 mg tablet 400 mg PO DAILY amitriptyline 100 mg tablet 100 mg PO BEDTIME aripiprazole 10 mg tablet 10 mg PO BEDTIME atorvastatin 10 mg tablet 10 mg PO QDAY iywkembeyv-hhxangpsqowkc-fkne 50-300-40 mg capsule 1 cap PO Q6H PRN (Reason: pain) cyanocobalamin (vitamin B-12) 1,000 mcg/mL solution 1,000 mcg IM .monthly Ajovy Autoinjector 225 mg/1.5 mL auto-injector 225 mg SUBCUT .monthly hydrochlorothiazide 12.5 mg tablet 12.5 mg PO QDAY hydrocodone-acetaminophen 5-325 mg tablet 1 tab PO TID PRN (Reason: pain) hydroxyzine HCl 25 mg tablet 25 mg PO BEDTIME levothyroxine 125 mcg tablet 125 mcg PO .every morning Linzess 72 mcg capsule 145 mcg PO QDAY Patient Comments: on empty stomach before a meal lisinopril 5 mg tablet 5 mg PO QDAY montelukast 10 mg tablet 10 mg PO QDAY omeprazole 40 mg capsule,delayed release(DR/EC) 40 mg PO BID potassium chloride 10 mEq tablet,ER particles/crystals 20 meq PO BID vilazodone 40 mg tablet 40 mg PO QDAY Biotin Plus Keratin 10,000-100 mcg-mg tablet 1 tab PO QDAY Patient Comments: with supper cholecalciferol (vitamin D3) [Vitamin D3] 50 mcg (2,000 unit) capsule 50 mcg PO DAILY melatonin 10 mg capsule 10 mg PO DAILY PreserVision AREDS-2 250-90-40-1 mg capsule 1 tab PO BID Trelegy Ellipta 200-62.5-25 mcg blister with device 1 inh INHALATION Q24H tizanidine 4 mg tablet 4 mg PO TID sucralfate 1 gram tablet 1 g PO Q6H 28 Days Qty: 112 0RF aspirin [Adult Aspirin Regimen] 81 mg tablet,delayed release (DR/EC) 81 mg PO DAILY ondansetron HCl 4 mg tablet 4 mg PO Q12H PRN (Reason: nausea and vomiting) meclizine 12.5 mg tablet 12.5 mg PO BID PRN (Reason: dizziness) lidocaine 5 % adhesive patch,medicated 1 patch topical Q24H Qty: 30 2RF Rx Instructions: leave on most painful area for up to 12 hrs daily buprenorphine [Butrans] 5 mcg/hour patch weekly 1 patch transdermal Q7D Qty: 4 0RF Print Language: Persian Referrals: [place] DO [Primary Care Provider] - 1 week Procedures ED Procedure Instructions Procedures Procedures: Procedure note: Epistaxis treatment; patient was instructed to gently blow her nose to remove the large clot in the right nostril. After this was removed Afrin was instilled into both nostrils and the patient was asked to gently blow her nose again. A Merisel packing was then placed into the right nostril and Afrin was used to inflate the Merocel. Patient tolerated procedure well. On reevaluation the bleeding has stopped.
[2024-10-30] MEDS: BACITRACIN 0.9 GM PACKET 1 PACKET TOPICAL (01:14)
[2024-10-30] MEDS: OXYMETAZOLINE HCL 0.05% NASAL SPRAY 2 SPRAY NS (01:15)
[2024-10-30 01:23] LABS: Basophils Absolute Auto 0.1 10^3/uL (0.0-0.1); Basophils Percent Auto 1.1 % (0.2-2.0); Eosinophils Absolute Auto 0.2 10^3/uL (0.0-0.7); Eosinophils Percent Auto 3.7 % (0.9-7.0); Hematocrit 35.8 % (36.0-48.0); Hemoglobin 11.9 g/dL (12.0-16.0); Immature Granulocytes Abs Auto 0.01 10^3/uL (0.00-0.03); Immature Granulocytes Pct Auto 0.2 % (0.0-0.5); Lymphocytes Absolute Auto 1.1 10^3/uL (1.2-3.8); Lymphocytes Percent Auto 19.1 % (20.5-60.0); Mean Corpuscular HGB Conc 33.2 g/dL (29.9-35.2); Mean Corpuscular Hemoglobin 29.2 pg (26.7-34.0); Mean Corpuscular Volume 87.7 fL (81.0-99.0); Monocytes Absolute Auto 0.6 10^3/uL (0.3-0.8); Monocytes Percent Auto 9.8 % (1.7-12.0); Neutrophils Absolute Auto 3.7 10^3/uL (1.4-6.5); Neutrophils Percent Auto 66.1 % (43.0-75.0); Platelet Count 385 10^3/uL (150-450); Red Blood Count 4.08 10^6/uL (4.20-5.40); Red Cell Distribution Width 13.8 % (11.0-15.0); White Blood Count 5.6 10^3/uL (4.0-11.0)
[2024-10-30 01:37] LABS: INR 2.96; Prothrombin Time 28.2 sec (9.0-11.6)
== END 2024-10-30 02:12 | disposition home or self-care (01) ==
LOC: ER 00:56
PROVIDERS: Emergency Provider Emergency Medicine; PCP Family Medicine
DX: R04.0 Epistaxis (principal); Z79.01 Long term (current) use of anticoagulants; Z90.49 Acquired absence of other specified parts of digestive tract; Z90.710 Acquired absence of both cervix and uterus; Z87.891 Personal history of nicotine dependence
CPT/HCPCS: 30901; 36415; 85025; 85610; 99283

== ENCOUNTER 2024-11-13 12:55 | Outpatient (RCR) | payer BC, MEDICARE, SELFPAY | END 2025-01-23 09:38 | disposition home or self-care (01) | LOC: PT 12:55 | PROVIDERS: PCP Family Medicine; Visit Provider Family Medicine | DX: M51.34 Other intervertebral disc degeneration, thoracic region (principal) | CPT/HCPCS: 97110; 97112; 97140; 97163; 97530 ==

== ENCOUNTER 2024-11-23 12:38 | Outpatient (RCR) | payer BC, MEDICARE, SELFPAY | END 2024-12-20 12:39 | disposition home or self-care (01) | LOC: MM 12:38 | PROVIDERS: PCP Family Medicine; Visit Provider Internal Medicine | DX: Z51.81 Encounter for therapeutic drug level monitoring (principal); Z79.01 Long term (current) use of anticoagulants; I82.409 Acute embolism and thrombosis of unspecified deep veins of unspecified lower extremity | CPT/HCPCS: 85610; G0463 ==

== ENCOUNTER 2024-12-18 13:10 | Outpatient (OUT) | payer BC, MEDICARE, SELFPAY ==
[2024-12-18 14:10] LABS: Anion Gap 8.9; BUN Creatinine Ratio 9.9; Carbon Dioxide 32.5 mmol/L (21.0-32.0); Chloride 90 mmol/L (98-107); Estimated GFR (African America >60 (>=60 mL/min/1.73m^2); Estimated GFR (Non-African Ame >60 (>=60 mL/min/1.73m^2); Glucose 104 mg/dL (74-106); Sodium 129 mmol/L (136-145)
[2024-12-18 14:13] LABS: Basophils Absolute Auto 0.1 10^3/uL (0.0-0.1); Basophils Percent Auto 0.8 % (0.2-2.0); Eosinophils Absolute Auto 0.1 10^3/uL (0.0-0.7); Eosinophils Percent Auto 1.3 % (0.9-7.0); Hematocrit 40.9 % (36.0-48.0); Hemoglobin 13.6 g/dL (12.0-16.0); Immature Granulocytes Abs Auto 0.02 10^3/uL (0.00-0.03); Immature Granulocytes Pct Auto 0.3 % (0.0-0.5); Lymphocytes Absolute Auto 0.8 10^3/uL (1.2-3.8); Lymphocytes Percent Auto 13.5 % (20.5-60.0); Mean Corpuscular HGB Conc 33.3 g/dL (29.9-35.2); Mean Corpuscular Hemoglobin 29.5 pg (26.7-34.0); Mean Corpuscular Volume 88.7 fL (81.0-99.0); Mean Platelet Volume 9.3 fL (9.5-13.5); Monocytes Absolute Auto 0.7 10^3/uL (0.3-0.8); Monocytes Percent Auto 10.4 % (1.7-12.0); Neutrophils Absolute Auto 4.6 10^3/uL (1.4-6.5); Neutrophils Percent Auto 73.7 % (43.0-75.0); Platelet Count 401 10^3/uL (150-450); Red Blood Count 4.61 10^6/uL (4.20-5.40); Red Cell Distribution Width 13.6 % (11.0-15.0); White Blood Count 6.2 10^3/uL (4.0-11.0)
[2024-12-18 14:15] LABS: Potassium 2.4 mmol/L (3.5-5.1)
[2024-12-18 14:36] LABS: Percent Iron Saturation 18.3 %
[2024-12-19 03:11] LABS: Vitamin B12 1326 pg/mL (232-1245)
== END 2024-12-18 13:11 | disposition home or self-care (01) ==
LOC: LAB 13:12
PROVIDERS: PCP Family Medicine; Visit Provider Internal Medicine Hematology & Oncology
DX: D64.9 Anemia, unspecified (principal); D50.9 Iron deficiency anemia, unspecified; K90.9 Intestinal malabsorption, unspecified
CPT/HCPCS: 36415; 80048; 82306; 82607; 82728; 82746; 83540; 83550; 85025

== ENCOUNTER 2024-12-19 01:10 | Emergency (ER) | payer BC, MEDICARE, SELFPAY ==
[2024-12-19 01:18] VITALS: BP 135/82; PULSE 80; TEMP 36.3; O2SAT 99
--- OUTSIDE RECORDS SUMMARY | 2024-12-19 01:21 | XMS_ITS | CCD ---
Author Organization [facility]iniSyaz Care Team Providers Care Cloud Operations Engineer Name Role Phone Adilia Mederos Unavailable Lilian Ferreira Unavailable Yesy Covarrubias OT Unavailable Aliza Aguilar MD Unavailable [phone], DR TANK Aguillon Primary Care [...] DUARTE H Admitting Unavailable LAKE, DR TANK Aguillno Primary Care Unavailable [id number], DUARTE H Attending [...] A Primary Care Unavailable SedrickAliza Admitting Unavailable Sedrick, Aliza Hernandez Attending Unavailable Lake, Tank A Primary Care Unavailable AMITA SIMPSON Attending Unavailable LAKE, TANK A Referring Unavailable LAKE, TANK A Primary Care Unavailable STEEVN TAVERA F Attending Unavailable LAKE, TANK A Referring [...] SAEZ Attending Unavailable Unavailable Primary Care Provider Unavailluisana e [place] DOel Pal Primary Care Provider Allergies Allergy Classification Reported Allergen(s) Allergy Type Date of Onset Reaction(s) Facility (9 sources) Acetaminophen / oxyCODONE Drug Allergy 12-22-19 06 Nausea And Vomiting, Vomiting [facility] Other (3 sources) Adhesive Tape Propensity to adverse reactions rash [facility] Other (15 sources) Cephalexin; Translations: [CEPHALEXIN] Drug Allergy 12-22-19 06 anaphylaxis, Unknown, Other (See Comments) [facility] (20 sources) Erythromycin; Translations: [ERYTHROMYCIN] Drug Allergy 12-22-19 06 Other, Unknown, Other (See Comments) [facility] (8 sources) Iodine; Translations: [iodine] Drug Allergy 01-31-20 13 rash [facility] (13 sources) Latex; Translations: [LATEX] Propensity to adverse reactions 12-22-19 06 rash, Other (See Comments) [facility] (7 sources) Penicillin G Benzathine; Translations: [penicillin G benzathine] Drug allergy 12-11-19 23 anaphylaxis [facility] (3 sources) Procaine Drug Allergy headaches [facility] [employer] Other (2 sources) Cephalexin; Translations: [Keflex] Drug Allergy 01-31-20 13 anaphylaxis [facility] (1 source) Novocain Drug allergy Unknown [facility] [employer] Other (11 sources) Acetaminophen; Translations: [ACETAMINOPHEN] Drug [...] Allergy 12-22-19 06 Other, Rash, Unknown [facility] (18 sources) Doxycycline; Translations: [DOXYCYCLINE] Drug Allergy 01-24-20 [...] Problems, Other, Rash, Unknown [facility] Work Phone: (12 sources) Sulfonamides (Antibiotic); Translations: [SULFA ANTIBIOTICS] Propensity to adverse reactions to drug 12-22-19 06 Rash [facility] (6 sources) Bandage Tape; Translations: [BANDAGE TAPE] Propensity to adverse reactions 09-03-20 13 Rash [facility] (14 sources) Erythromycin Base; Translations: [ERYTHROMYCIN BASE] Propensity to adverse reactions to drug 01-24-20 20 [facility] Iodides; Translations: [IODIDES] Propensity to adverse reactions to drug 10-31-19 14 Hives [facility] (6 sources) Other (Review Comments!); Translations: [OTHER (REVIEW COMMENTS!)] Propensity to adverse reactions to drug 07-22-20 19 Agitation [facility] Work [facility]: (1 source) Ciprofloxacin Drug Allergy [facility] (1 source) Iodine (And Iodine Containting Drugs) Drug allergy (disorder) 01-31-20 13 [facility] (1 source) Latex Drug allergy (disorder) 01-31-20 13 [facility] (5 sources) Morphine; Translations: [MORPHINE] Drug Allergy 10-21-19 14 vomiting [facility] (1 source) Penicillins Drug allergy (disorder) 01-31-20 13 [facility] (1 source) Sulfonamides (Antibiotic) Drug allergy (disorder) 01-31-20 13 [facility] (1 source) Darvocet-N 100 Drug allergy (disorder) 01-31-20 13 [facility] (1 source) E.E.S. Drug allergy (disorder) 01-31-20 13 [facility] (4 sources) Adhesive Tape; Translations: [adhesive tape] Allergy to substance 12-11-19 [facility] (7 sources) oxyCODONE; Translations: [oxycodone] Drug Allergy 12-11-19 Unknown [facility] (4 sources) Procaine; Translations: [procaine] Drug Allergy 12-11-19 headaches [facility] (1 source) Cephalexin Drug Allergy 12-11-19 [facility] (1 source) Doxycycline Drug Allergy 12-11-19 [facility] (1 source) Latex Drug allergy (disorder) 12-11-19 [facility] (1 source) Morphine Drug Allergy 12-11-19 [facility] (7 sources) Adhesive agent; Translations: [ADHESIVE] Propensity to adverse reactions to drug (disorder) 09-03-20 13 Rash [facility] (1 source) Sulfonamides (Antibiotic); Translations: [SULFA (SULFONAMIDE ANTIBIOTICS)] Propensity to adverse reactions to drug (disorder) 12-22-19 [facility] (10 sources) IODINATED CONTRAST MEDIA; Translations: [IODINATED CONTRAST MEDIA] Propensity to adverse reactions to drug (disorder) 12-22-19 [facility] (7 sources) ADHESIVE TAPE-SILICONES; Translations: [ADHESIVE TAPE-SILICONES] Propensity to adverse reactions to drug (disorder) 09-03-20 13 Rash [facility] (3 sources) Latex Propensity to adverse reactions 12-22-19 Other, Rash, Unknown [facility] (9 sources) Morphine Drug Allergy 10-21-19 14 Nausea And Vomiting, GI intolerance [facility] (3 sources) Propoxyphene Drug Allergy 12-22-19 Other, Unknown [facility] (3 sources) Other Propensity to adverse reactions 12-22-19 Other, Unknown [facility] (3 sources) Wound Dressing Adhesive Drug Intolerance 09-03-20 13 Rash [facility] (6 sources) Penicillins Propensity to adverse reactions to drug 12-22-19 Anaphylaxis [facility] (6 sources) Quinolones Propensity to adverse reactions to drug 12-22-19 Other (See Comments), Rash [facility] Medications Current Medications Medication Drug Class(es) Dates Sig (Normalized) Sig (Original) acetaminophen 300 mg / butalbital 50 mg / caffeine 40 mg oral capsule (19 sources) Barbiturate, Central Nervous System Stimulant, Methylxanthine Start: 05-28-2024 take 1 capsule by mouth every eight hours Butalbital-Aceta minophen-Caff (Fioricet) 50-300-40 mg capsule Active 1 CAP PO Every 8 hours May 28, 2024 12:00am Start: 03-18-2020 take 1 capsule by [facility] once as needed wqibeokuwh-rvoejhiywjjfc-kmok (FIORICET, ESGIC) 50-300-40 mg per capsule Take 1 capsule by mouth as needed. 03/18/2020 Active Start: 03-18-2020 take 1 capsule by mo uth three times daily as needed zqlqbprulb-eaqejdpwxnnvx-lcos (FIORICET, ESGIC) 50-300-40 mg per capsule Take 1 capsule by mouth 3 (three) times a day as needed. 03/18/2020 Active Butalbital-APAP- Caffeine 50-300-40 MG CAPS Take by mouth daily as needed. 0 Active take 1 capsule by mo uth every four hours Inxdahalfj-UWLO-Nqoyinfv 50-325-40 MG 1 capsule as needed Orally every 4 hrs Not-Taking Fioricet Active acetaminophen 325 mg / HYDROcodone bitartrate 5 mg oral tablet (18 sources) Opioid Agonist Start: 05-28-2024 take 1 tablet by mouth every eight hours Hydrocodone-Acetaminophen Active 1 TAB PO Every 8 hours May 28, 2024 12:00am Start: 04-06-2020 HYDROcodone-ac etaminophen (NORCO) 5-325 mg per tablet as needed. 04/06/2020 Active HYDROcodone-Acet aminophen 7.5-300 MG Orally Not-Taking [place] Active acyclovir 400 mg oral tablet (16 sources) Herpesvirus Nucleoside Analog DNA Polymerase Inhibitor, Herpes Simplex Virus Nucleoside Analog DNA Polymerase Inhibitor, Herpes Zoster Virus Nucleoside Analog DNA Polymerase Inhibitor Start: 05-28-2024 take 400 mg by mouth once daily Acyclovir Active 400 MG PO Daily May 28, 2024 12:00am Start: 02-27-2020 take 1 tablet by lisa th twice daily as needed acyclovir (ZOVIRAX) 400 mg tablet Take 1 tablet (400 mg total) by mouth 2 (two) times a day as needed. 02/27/2020 Active take 1 tablet by lisa th once daily acyclovir (ZOVIRAX) 400 MG tablet Take 400 mg by mouth daily. 0 Active Aimovig (3 sources) Aimovig Active [id number] 200 actuat albuterol 0.09 mg/actuat metered dose inhaler (5 sources) beta2-Adrenergic Agonist take 2 puff(s) by inhalation every six hours as needed for wheezing albuterol (PROVENTIL HFA;VENTOLIN HFA) 90 mcg/actuation inhaler Inhale 2 puffs every 6 (six) hours as needed for wheezing or shortness of breath. Active ALPRAZolam 0.5 mg oral tablet (8 sources) Benzodiazepine take 1 tablet by mouth twice daily as needed ALPRAZolam (XANAX) 0.5 MG tablet Take 0.5 mg by mouth 2 times daily as needed. 0 Active ALPRAZolam Not-T aking amitriptyline hydrochloride 100 mg oral tablet (11 sources) Tricyclic Antidepressant Start: 05-28-2024 take 100 mg by mouth once daily Amitriptyline Active 100 MG PO Daily May 28, 2024 12:00am Start: 12-22-2022 take 1 tablet by lisa th once daily at bedtime amitriptyline (ELAVIL) 100 mg tablet Take 1 tablet (100 mg total) by mouth once daily at bedtime. 12/22/2022 Active Amitriptyline HC l Active ARIPiprazole 10 mg oral tablet (7 sources) Atypical Antipsychotic Start: 05-28-2024 take 10 mg by mouth once daily Aripiprazole Active 10 MG PO Daily May 28, 2024 12:00am take 1 tablet by mouth in the mo rning ARIPiprazole (ABILIFY) 10 mg tablet Take 1 tablet (10 mg total) by mouth in the morning. Active atorvastatin 10 mg oral tablet (12 sources) HMG-CoA Reductase Inhibitor Start: 05-28-2024 take 10 mg by mouth once daily Atorvastatin Active 10 MG PO Daily May 28, 2024 12:00am Start: 01-02-2023 take 1 tablet by lisa th in the morning atorvastatin (LIPITOR) 10 mg tablet Take 1 tablet (10 mg total) by mouth in the morning. 01/02/2023 Active Calcium (1 source) Phosphate Binder, Calcium Calcium Active Cequa (3 sources) Cequa Active cholecalciferol 0.05 mg oral tablet (5 sources) Vitamin D take 1 tablet by mouth in the morning cholecalciferol, vitamin D3, 2,000 units tablet Take 1 tablet (2,000 Units total) by mouth in the morning. Active cyclobenzaprine hydrochloride 10 mg oral tablet (11 sources) Muscle Relaxant Start: 05-28-20 take 10 mg by mouth once daily at bedtime Cyclobenzaprine Active 10 MG PO Daily at bedtime May 28, 2024 12:00am Start: 01-29-2020 take 1 tablet by lisa th three times daily as needed cyclobenzaprine (FLEXERIL) 10 mg tablet Take 1 tablet (10 mg total) by mouth 3 (three) times a day as needed. 01/29/2020 Active Cyclobenzaprine HCl Active Cyclobenzaprine HCl Not-Taking fexofenadine [...] daily. 0 Active Flovent Diskus A ctive Nalyaxffdmn-Vbwpdijip-Sdpqbv er (2 sources) Anticholinergic, Corticosteroid, beta2-Adrenergic Agonist Start: 05-28-2024 Rknkouvbydr-Cvmzsomdb-Mfpydp er (Trelegy Ellipta) 100-62.5-25 mcg blister with device Active 1 INH INHALATION Daily May 28, 2024 12:00am oexrisbhvfy-noclgbsne-rcayvr er (TRELEGY ELLIPTA) 200-62.5-25 mcg blister with device (5 sources) t a k e 1 p u f f ( s ) b y i n h a l a t i o n o n c e d a i l y rqefjylhfyq-piriywdbb-vfwhxloh (TRELEGY ELLIPTA) 200-62.5-25 mcg blister with device Inhale 1 puff once daily. Active 1.5 ml fremanezumab-vfrm 150 mg/ml prefilled syringe (7 sources) Start: 05-28-2024 Fremanezumab-Vfrm (Ajovy Autoinjector) 225 mg/1.5 mL auto-injector Active 225 MG SUBCUT every month May 28, 2024 12:00am fremanezumab-vfr m (AJOVY AUTOINJECTOR) 225 mg/1.5 mL Inject 1.5 mL (225 mg total) under the skin. Active hydrocortisone acetate 25 mg/ml topical cream (3 sources) Corticosteroid Start: 05-22-2023 Hydrocortisone Acetate 2.5 % cream Indications: Lentigines Apply thin layer to affected areas twice a day as needed for flares 30 g 11 05/22/2023 Active hydrOXYzine hydrochloride 25 mg oral tablet (12 sources) Antihistamine Start: 05-28-2024 take 25 mg by mouth once daily at bedtime Hydroxyzine Hcl Active 25 MG PO Daily at bedtime May 28, 2024 12:00am take 1 tablet by lisa th three times daily as needed hydrOXYzine (ATARAX) 25 mg tablet Take 1 tablet (25 mg total) by mouth 3 (three) times a day as needed for itching. Active End: 02-20-2024 take 1 tablet by mouth in the morning, then take 1 tablet by mouth at bedtime hydrOXYzine (ATARAX) 10 mg tablet Take 1 tablet (10 mg total) by mouth in the morning and 1 tablet (10 mg total) before bedtime. 02/20/2024 Discontinued (Alternate therapy) hydrOXYzine HCl Active Lactobacillus acidophilus (1 source) Acidophilus Acti ve levocetirizine dihydrochloride 5 mg oral tablet (8 sources) Histamine-1 Receptor Antagonist Start: 05-28-20 take 1 tablet by mouth once daily Levocetirizine (Xyzal) 5 mg tablet Active 5 MG PO Daily May 28, 2024 12:00am take 1 tablet by lisa th once daily in the evening levocetirizine (XYZAL) 5 mg tablet Take 1 tablet (5 mg total) by mouth every evening. Active Xyzal Active levothyroxine sodium 0.125 mg oral tablet (17 sources) l-Thyroxine Start: 05-28-2024 Levothyroxine Active MCG PO May 28, 2024 12:00am Start: 03-27-2020 End: 02-20-2024 take 1 tablet by mouth in the morning SYNTHROID 100 mcg tablet Take 1 tablet (100 mcg total) by mouth in the morning. 03/27/2020 02/20/2024 Discontinued (Alternate therapy) take 1 tablet by lisa th in the morning levothyroxine (SYNTHROID, LEVOTHROID) 125 MCG tablet Take 1 tablet (125 mcg total) by mouth in the morning. Active levothyroxine (S YNTHROID) 100 MCG tablet Indications: Brachial neuritis or radiculitis Take 125 mcg by mouth daily. 0 Active Synthroid Active linaclotide 0.072 mg oral capsule (14 sources) Guanylate Cyclase-C Agonist Start: 05-28-2024 take 1 capsule by mouth once daily Linaclotide (Linzess) 72 mcg capsule Active 72 MCG PO Daily May 28, 2024 12:00am take 1 capsule by mo uth once daily before breakfast linaCLOtide (LINZESS) 72 mcg capsule Solo e 1 capsule (72 mcg total) by mouth every morning before breakfast. Active Linzess Active lisinopril 5 mg oral tablet (14 sources) Angiotensin Converting Enzyme Inhibitor Start: 05-28-2024 take 5 mg by mouth once daily Lisinopril Active 5 MG PO Daily May 28, 2024 12:00am Start: 12-22-2022 take 1 tablet by lisa th in the morning lisinopriL (PRINIVIL,ZESTRIL) 5 mg tablet Take 1 tablet (5 mg total) by mouth in the morning. 12/22/2022 Active LISINOPRIL ORAL Take by mouth. 0 Active Lisinopril Activ e magnesium oxide 400 mg oral tablet (5 sources) take 1 tablet by mouth once daily magnesium oxide 400 mg magnesium tablet Take 400 mg by mouth once daily. Active melatonin 10 mg oral tablet (5 sources) take 1 tablet by mouth once daily melatonin 10 mg tablet Take 10 mg by mouth nightly. Active methylPREDNISolone 4 mg oral tablet (3 sources) Corticosteroid Start: methylPREDNISolone 4 MG as directed Orally Once a day for 6 days Apr, Active Start: 06-22-2021 methylPREDNISo lone 4 MG as directed Orally Once a day for 6 days May, Active montelukast 10 mg oral tablet (16 sources) Leukotriene Receptor Antagonist Start: 05-28-2024 take 10 mg by mouth once daily Montelukast Active 10 MG PO Daily May 28, 2024 12:00am Start: 04-02-2020 take 1 tablet by lisa th in the morning montelukast (SINGULAIR) 10 mg tablet Take 1 tablet (10 mg total) by mouth in the morning. 04/02/2020 Active Montelukast Sodi um Active NIFEdipine 10 mg oral capsule (7 sources) Dihydropyridine Calcium Channel Ruben Start: 05-28-2024 take 10 mg by mouth twice daily Nifedipine Active 10 MG PO Twice daily May 28, 2024 12:00am take 1 capsule by mouth once glenn ly NIFEdipine (PROCARDIA) 10 mg capsule Take 1 capsule (10 mg total) by mouth once daily. Active omeprazole 40 mg delayed release oral capsule (16 sources) Proton Pump Inhibitor Start: 05-28-2024 take 40 mg by mouth once daily Omeprazole Active 40 MG PO Daily May 28, 2024 12:00am take 2 capsules by mouth in the morning omeprazole (PriLOSEC) 20 mg capsule Take 2 capsules (40 mg total) by mouth in the morning. Active take 1 capsule by mouth in the m orning omeprazole (PriLOSEC) 20 mg capsule Take 1 capsule (20 mg total) by mouth in the morning. Active phentermine hydrochloride 37.5 mg oral capsule (4 sources) Sympathomimetic Amine Anorectic Start: 05-28-2024 take 37.5 mg by mouth once daily 30 minutes after breakfast Phentermine Active 37.5 MG PO Daily May 28, 2024 12:00am must administer 30 minutes before or 1-2 hours after breakfast Phentermine HCl Active potassium chloride 20 meq extended release oral tablet (16 sources) Start: 05-28-2024 take 1 tablet by mouth once daily Potassium Chloride (K-Tab) 20 mEq tablet extended release Active 20 MEQ PO Daily May 28, 2024 12:00am Start: 04-02-2020 take 1 tablet by lisa th in the morning potassium chloride (KLOR-CON M) 20 MEQ CR tablet Take 1 tablet (20 mEq total) by mouth in the morning and 1 tablet (20 mEq total) before bedtime. 04/02/2020 Active Potassium Chlori de (KLOR-CON ORAL) Indications: Brachial [...] 4 doses/24h tiZANidine 4 mg oral capsule (7 sources) Central alpha-2 Adrenergic Agonist Start: 05-28-2024 take 4 mg by mouth once daily at bedtime Tizanidine Active 4 MG PO Daily at bedtime May 28, 2024 12:00am take 1 tablet by lisa th every six hours as needed tiZANidine (ZANAFLEX) 4 mg tablet Take 1 tablet (4 mg total) by mouth every 6 (six) hours as needed for muscle spasms. Active topiramate 50 mg oral tablet (7 sources) [...] injection vilazodone hydrochloride 40 mg oral tablet (15 sources) Start: 05-28-2024 take 40 mg by mouth once daily at mealtime Vilazodone Active 40 MG PO Daily May 28, 2024 12:00am must administer with a meal/food Start: 12-16-2022 take 1 tablet by lisa th once daily at breakfast VIIBRYD 40 mg tablet Take 1 tablet (40 mg total) by mouth daily with breakfast. 12/16/2022 Active Viibryd Active vit A/vit C/vit E/zinc/copper (PRESERVISION AREDS ORAL) (5 sources) vit A/vit C/vit E/zinc/copper (PRESERVISION AREDS ORAL) Take by mouth daily. Active vitamin b12 1 mg oral capsule (14 sources) Vitamin B12 Start: 05-28-2024 take 1000 ug by mouth once daily Cyanocobalamin (Vitamin B-12) Active 1000 MCG PO daily May 28, 2024 12:00am Start: 03-29-2020 cyanocobalamin (VITAMIN B-12) 1,000 mcg/mL injection 03/29/2020 Active Start: 03-29-2020 cyanocobalamin (VITAMIN B-12) 1,000 mcg/mL injection INJECT ONE ML INTRAMUSCULARLY ONCE EVERY 4 WEEKS 03/29/2020 Active cyanocobalamin 1 000 MCG tablet Take 1,000 mcg by mouth every 28 days. 0 Active Cyanocobalamin A ctive Vitamin D3 (1 source) Vitamin D3 Activ e warfarin sodium 1 mg oral tablet (18 sources) Vitamin K Antagonist Start: 05-28-2024 take 1 mg by mouth three times weekly Warfarin Active 1 MG PO 3 Times a week May 28, 2024 12:00am Start: 05-28-2024 Warfarin Activ e 2 MG PO MOWEFR May 28, 2024 12:00am Start: 03-25-2020 warfarin (COUM AKIRA) 2 mg tablet Take 1 tablet (2 mg total) by mouth. 03/25/2020 Active Warfarin Sodium (COUMADIN ORAL) Indications: Brachial neuritis or radiculitis Take by mouth daily. Followed in coumadin clinic [place], [place] 0 Active take 1 tablet by lisa th two times weekly Warfarin Sodium 3 MG 1 tablet Orally Two times a Week for 30 day(s) Active zinc gluconate 50 mg oral tablet (5 sources) take 1 tablet by lisa th in the morning zinc gluconate 50 mg tablet Take 1 tablet (50 mg total) by mouth in the morning. Active Completed/Discontinued Medications Medication Drug Class(es) Dates Sig (Normalized) Sig (Original) Di-D 24 Hour (3 sources) Di-D 24 Sukhjinder r Not-Taking 168 hr buprenorphine 0.005 mg/hr transdermal system (2 sources) Partial Opioid Agonist Start: 05-28-2024 End: 06-27-2024 Buprenorphine Discontinued TOPICAL May 28, 2024 12:00am June 27, 2024 12:53pm citalopram 40 mg oral tablet (10 sources) Serotonin Reuptake Inhibitor Start: 04-03-2020 End: 02-20-2024 take 1 tablet by mouth in the morning citalopram (CeleXA) 40 mg tablet Take 1 tablet (40 mg total) by mouth in the morning. 04/03/2020 02/20/2024 Discontinued (Therapy completed) take 1 tablet by mouth once laura y citalopram (CELEXA) 20 MG tablet Indications: Brachial neuritis or radiculitis Take 20 mg by mouth daily. 0 Active CeleXA Active eszopiclone 3 mg oral tablet (3 sources) take 1 tablet by mouth every twenty-four hours Lunesta 3 MG 1 tablet immediately before bedtime Orally Once a day Not-Taking hydroCHLOROthiazide 12.5 mg oral tablet (9 sources) Thiazide Diuretic Start: 2022 End: 2023 take 1 tablet by mouth once daily hydroCHLOROthiazide (HYDRODIURIL) 12.5 mg tablet Take 1 tablet (12.5 mg total) by mouth daily. 01/02/2023 02/20/2024 Discontinued (Therapy completed) take 1 capsule by mouth once glenn ly hydrochlorothiazide (MICROZIDE) 12.5 MG capsule Take 12.5 mg by mouth daily. 0 Active take 1 tablet by lisa th every twenty-four hours hydroCHLOROthiazide 25 MG 1 tablet Orall y Once a day for 30 day(s) Not-Taking HYDROcodone / Ibuprofen (3 sources) Opioid Agonist, Nonsteroidal Anti-inflammatory Drug HYDROcodone-Ibupr ofen Not-Taking Levothyroxine Sodium unknown (3 sources) take 1 tablet by mouth once daily in the morning magnesium sulfate 0.0277 meq/ml / potassium sulfate 0.0374 meq/ml / sodium sulfate 0.257 meq/ml oral solution (2 sources) Start : 04-22 End: 02-19 sodium,potassium,mag sulfates (SUPREP BOWEL PREP KIT) 17.5-3.13-1.6 gram recon soln 177 ml,actual weight, 2 times daily, Oral 1 kit 04/22/2020 02/20/2024 Discontinued (Therapy completed) naloxone hydrochloride 40 mg/ml nasal spray (4 sources) Opioid Antagonist Start : 07-22 End: 06-16 naloxone 4 mg/0.1 mL nasal liquid Instill 1 [place] into one nostril (alternate sides) as needed. 1 spray as a single dose in one nostril. May repeat 1 spray every 2-3min in alternating nostrils until medical assistance is available. 1 Each 3 04/06/2020 06/16/2023 Discontinued nitrofurantoin, macrocrystals 25 mg / nitrofurantoin, monohydrate 75 mg oral capsule (3 sources) Nitrofuran Antibacterial Start : 12-18 take 1 capsule by mouth every twelve hours Macrobid 100 MG 1 capsule with food Orally every 12 hrs for 5 days Nov, Not-Taking 12 hr orphenadrine citrate 100 mg extended release oral tablet (10 sources) Muscle Relaxant Start : 03-23 End: 02-19 take 1 tablet by mouth in the morning, then take 1 tablet by mouth every twelve hours at bedtime orphenadrine (NORFLEX) 100 mg 12 hr tablet Take 1 tablet (100 mg total) by mouth in the morning and 1 tablet (100 mg total) before bedtime. 03/23/2020 02/20/2024 Discontinued (Therapy completed) take 1 tablet by lisa th every twelve hours at bedtime Orphenadrine Citrate 100 MG 1 tablet at bedtime Orally every 12 hrs Active phenazopyridine hydrochloride 200 mg oral tablet (3 [...] Encounter for therapeutic drug level monitoring; Translations: [[facility] THERAPEUTC DRUG LEVL MONITORING] Onset: 3 Episodic Other aftercare (1 source) terminal carman (current) use of anticoagulants; Translations: [RESIDENTIAL CURRNT USE ANTICOAGULANTS] Onset: 3 Episodic Other [...] IN RIGHT FOOT] Onset: 05-04-2022 Episodic Other gastrointestinal disorders (2 sources) Dysphagia; Translations: [Dysphagia, unspecified] 02-29-2024 Episodic Other non-traumatic joint disorders (1 source) [...] Translations: [Bee sting, undetermined intent, initial encounter T63.144A] Onset: 06-22-2021 Resolved: 06-22-2021 Episodic Varicose veins of lower extremity (2 sources) Varicose veins of lower limb co-occurrent with edema; Translations: [Varicose veins of bilateral lower extremities with other complications] Onset: 03-14-2024 03-14-2024 Episodic Results Test Name Value Interpretation Reference Range Facility CBC W MANUAL DIFF AND MORPHo n 09-26-2024 ABS BANDS 0.11 x10^3ul Normal (0.00 - 0.30) [facility] Comment on above: Order Comment: FACIL ITY: [facility] [id number] Performed By: #### C BC/D3, ESRCRP, RHF, URCA #### [facility] [address] [facility] [place], [address] ABS BASOPHIL 0.06 x10^3ul Normal (0.00 - 0.16) [facility] Comment on above: Order Comment: FACIL ITY: [facility] [id number] Performed By: #### C BC/D3, ESRCRP, RHF, URCA #### [facility] [address] [facility], [id number] ABS BLAST 0.00 x10^3ul Normal (0.00 - 0.01) [facility] Comment on above: Order Comment: FACIL ITY: [facility]I [facility] [id number] Performed By: #### C BC/D3, ESRCRP, RHF, URCA #### [facility] [address] [facility], [address] ABS EOSINOPHIL 0.40 x10^3ul Normal (0.00 - 0.40) [place] [facility] Comment on above: Order Comment: FACIL ITY[facility] [id number] Performed By: #### C BC/D3, ESRCRP, RHF, URCA #### [facility] [address] [facility], [address] ABS IMMATURE GRANS 0.00 x10^3ul Normal (0.00 - 0.11) T [facility] Comment on above: Order Comment: FACIL ITY: [facility] [id number] Performed By: #### C BC/D3, ESRCRP, RHF, URCA #### [facility] [address] [facility], [address] ABS LYMPHOCYTE 1.37 x10^3ul Normal (0.96 - 5.40) [place] [facility] Comment on above: Order Comment: FACIL ITY[facility] [id number] Performed By: #### C BC/D3, ESRCRP, RHF, URCA #### [facility] [address] [facility], [address] ABS METAMYELOCYTE 0.00 x10^3ul Normal (0.00 - 0.01) To [facility] Comment on above: Order Comment: FACIL ITY: [facility]I [facility] [id number] Performed By: #### C BC/D3, ESRCRP, RHF, URCA #### [facility] [address] [facility], [address] ABS MONOCYTE 0.28 x10^3ul Normal (0.10 - 1.00) [facility] above: Order Comment: FACIL ITY: [facility] [id number] Performed By: #### C BC/D3, ESRCRP, RHF, URCA #### [facility] [address] [place], [address] ABS MYELOYCYTE 0.00 x10^3ul Normal (0.00 - 0.01) [facility] [facility] Comment on above: Order Comment: FACIL ITY[facility] [id number] Performed By: #### C BC/D3, ESRCRP, RHF, URCA #### [facility] [address] [place], [address] ABS NEUTROPHIL 3.47 x10^3ul Normal (1.50 - 7.00) [facility] [facility] Comment on above: Order Comment: FACIL ITY: [facility] [id number] Performed By: #### C BC/D3, ESRCRP, RHF, URCA #### [facility] [address] [place], [address] ABS PROMYELOCYTE 0.00 x10^3ul Normal (0.00 - 0.01) [facility] Comment on above: Order Comment: FACIL ITY[facility] [id number] Performed By: #### C BC/D3, ESRCRP, RHF, URCA #### [facility] [address] [place], [address] ABS REAC LYMPH 0.00 x10^3ul Normal (0.00 - 0.01) [place] [facility] Comment on above: Order Comment: FACIL ITY: [facility] [id number] Performed By: #### C BC/D3, ESRCRP, RHF, URCA #### [facility] [address] [place], [address] ANISOCYTOSIS SL High (NONE) [facility] Comment on above: Order Comment: FACIL ITY: [facility] [id number] Performed By: #### C BC/D3, ESRCRP, RHF, URCA #### [facility] [address] [place], [address] BANDS 2 % Normal () [facility] Comment on above: Order Comment: FACIL ITY: [facility] [id number] Performed By: #### C BC/D3, ESRCRP, RHF, URCA #### [facility] [address] [place], [address] BASOS 1 % Normal () [facility] Comment on above: Order Comment: FACIL ITY: [facility] [id number] Performed By: #### C BC/D3, ESRCRP, RHF, URCA #### [facility] [address] [place], [address] BLASTS 0 % Normal () [facility] Comment on above: Order Comment: FACIL ITY: [facility] [id number] Performed By: #### C BC/D3, ESRCRP, RHF, URCA #### [facility] [address] [place], [address] EOSINOPHIL 7 % Normal () [facility] Comment on above: Order Comment: FACIL ITY: [facility] [id number] Performed By: #### C BC/D3, ESRCRP, RHF, URCA #### [facility] [address] [place], [address] HYPOCHROMASIA NONE Normal (NONE) [facility] Comment on above: Order Comment: FACIL ITY: [facility] [id number] Performed By: #### C BC/D3, ESRCRP, RHF, URCA #### [facility] [address] [place], [address] IMMATURE GRANS (IG) 0 % Normal () [place] [facility] Comment on above: Order Comment: FACIL ITY: [facility] [id number] Performed By: #### C BC/D3, ESRCRP, RHF, URCA #### [facility] [address] [place], [address] LYMPS 24 % Normal () [facility] [facility] Comment on above: Order Comment: FACIL ITY: [facility] [id number] Performed By: #### C BC/D3, ESRCRP, RHF, URCA #### [facility] [address] [place], [address] MACROCYTES NONE Normal (NONE) [facility] Comment on above: Order Comment: FACIL ITY: [facility]KARI [facility] - [facility] [id number] Performed By: #### C BC/D3, ESRCRP, RHF, URCA #### [facility] [address] [place], [address] MCH 27.8 PG Normal (27.0 - 33.0) [facility] Comment on above: Order Comment: FACIL ITY: [facility]I [facility] [id number] Performed By: #### C BC/D3, ESRCRP, RHF, URCA #### [facility] [address] [place], [address] MCHC 31.2 G/DL Normal (30.0 - 37.0) [facility] Comment on above: Order Comment: FACIL ITY: [facility] [id number] Performed By: #### C BC/D3, ESRCRP, RHF, URCA #### [facility] [address] [place], [address] MCV 88.9 fl Normal (81.0 - 99.0) [facility] Comment on above: Order Comment: FACIL ITY: [facility] [id number] Performed By: #### C BC/D3, ESRCRP, RHF, URCA #### [facility] [address] [place], [address] META 0 % Normal () [facility] Comment on above: Order Comment: FACIL ITY: [facility] [id number] Performed By: #### C BC/D3, ESRCRP, RHF, URCA #### [facility] [address] [place], [address] MICROCYTES NONE Normal (NONE) [facility] Comment on above: Order Comment: FACIL ITY: [facility] [id number] Performed By: #### C BC/D3, ESRCRP, RHF, URCA #### [facility] [address] [place], [address] MONOS 5 % Normal () [facility] Comment on above: Order Comment: FACIL ITY: [facility] [id number] Performed By: #### C BC/D3, ESRCRP, RHF, URCA #### [facility] [address] [place], [address] MYELO 0 % Normal () [facility] Comment on above: Order Comment: FACIL ITY: [facility] [id number] Performed By: #### C BC/D3, ESRCRP, RHF, URCA #### [facility] [address] [place], [address] NRBC/100 WBC 0 Normal (0 - 0) [facility] Comment on above: Order Comment: FACIL ITY: [facility] [id number] Performed By: #### C BC/D3, ESRCRP, RHF, URCA #### [facility] [address] [place], [address] OVALOCYTES NONE Normal (NONE) [facility] Comment on above: Order Comment: FACIL ITY: [facility] [id number] Performed By: #### C BC/D3, ESRCRP, RHF, URCA #### [facility] [address] [place], [address] PLT 361 x10^3ul Normal (130 - 400) [facility] Comment on above: Order Comment: FACIL ITY: [facility] [id number] Performed By: #### C BC/D3, ESRCRP, RHF, URCA #### [facility] [address] [place], [address] POIKILOCYTOSIS SL High (NONE) [facility] Comment on above: Order Comment: FACIL ITY: [facility] [id number] Performed By: #### C BC/D3, ESRCRP, RHF, URCA #### [facility] [address] [place], [address] POLYCHROMASIA SL High (NONE) [facility] Comment on above: Order Comment: FACIL ITY: [facility] [id number] Performed By: #### C BC/D3, ESRCRP, RHF, URCA #### [facility] [address] [place], [address] PROMYELOCYTES 0 % Normal () [facility] Comment on above: Order Comment: FACIL ITY: [facility] [id number] Performed By: #### C BC/D3, ESRCRP, RHF, URCA #### [facility] [address] [place], [address] RBC 4.97 x10^6ul Normal (4.20 - 5.40) [facility] Comment on above: Order Comment: FACIL ITY: [facility] [id number] Performed By: #### C BC/D3, ESRCRP, RHF, URCA #### [facility] [address] [place], [address] RDW-SD 48.4 fl Normal (37.0 - 49.0) [facility] Comment on above: Order Comment: FACIL ITY: [facility] [id number] Performed By: #### C BC/D3, ESRCRP, RHF, URCA #### [facility] [address] [place], [address] REACTIVE LYMPH 0 % Normal () [facility] Comment on above: Order Comment: FACIL ITY: [facility] [id number] Performed By: #### C BC/D3, ESRCRP, RHF, URCA #### [facility] [address] [place], [address] SCHISTOCYTES NONE Normal (NONE) [facility] Comment on above: Order Comment: FACIL ITY: [facility] [id number] Performed By: #### C BC/D3, ESRCRP, RHF, URCA #### [facility] [address] [place], [address] SEGS 61 % Normal () [facility] Comment on above: Order Comment: FACIL ITY: [facility] [id number] Performed By: #### C BC/D3, ESRCRP, RHF, URCA #### [facility] [address] [place], [address] TARGET CELLS NONE Normal (NONE) [facility] Comment on above: Order Comment: FACIL ITY: [facility] [id number] Performed By: #### C BC/D3, ESRCRP, RHF, URCA #### [facility] [address] [place], [address] WBC 5.69 x10^3ul Normal (3.80 - 10.60) [facility] Comment on above: Order Comment: FACIL ITY: [facility] [id number] Performed By: #### C BC/D3, ESRCRP, RHF, URCA #### [facility] [address] [place], [address] RF FACTORon 09-26-2024 RF FACTOR <9 Normal (0 - 12) [facility] Comment on above: Result Comment: RF F ACTOR = LESS THAN 9 IU/ML RF FACTOR MIN. DETECTION = 9 IU/ML. Performed By: #### C BC/D3, ESRCRP, RHF, URCA #### [facility] [address] [place], [address] SED RATE - CRPon 09-26-2024 CRP EXTENDED RANGE 8.02 MG/L High (0.00 - 5.00) [facility] Comment on above: Performed By: #### C BC/D3, ESRCRP, RHF, URCA #### [facility] [address] [place], [address] SED RATE WEST. 18 MM/HR Normal (0 - 25) [facility] Comment on above: Performed By: #### C BC/D3, ESRCRP, RHF, URCA #### [facility] [address] [place], [address] URIC ACIDon 09-26-2024 Urate [Mass/Vol] 6.1 mg/dL Normal (2.5 - 6.2) [facility] Comment on above: Performed By: #### C BC/D3, ESRCRP, RHF, URCA #### [facility] [address] [place], [address] BASIC MET PANEL W/GFRon 06-26 Calcium [Mass/Vol] 9.5 mg/dL Normal (8.6 - 10.6) [facility] Comment on above: Order Comment: FACIL ITY: [facility] [id number] Performed By: #### C HEM-B, MG #### [facility] [address] [place], [address] Chloride [Moles/Vol] 101 mmol/L Normal (98 - 107) [facility] Comment on above: Order Comment: FACIL ITY: [facility] [id number] Performed By: #### C HEM-B, MG #### [facility] [address] [place], [address] CO2 [Moles/Vol] 26 mmol/L Normal (22 - 30) [facility] Comment on above: Order Comment: FACIL ITY: [facility] [id number] Performed By: #### C HEM-B, MG #### [facility] [address] [place], [address] Creatinine [Mass/Vol] 0.57 mg/dL Normal (0.52 - 1.04) [facility] Comment on above: Order Comment: FACIL ITY: [facility] [id number] Performed By: #### C HEM-B, MG #### [facility] [address] [place], [address] GFR- AMER 128.8 ML/M1.7 Normal (60.0 - 140.1) [facility] Comment on above: Order Comment: FACIL ITY: [facility] [id number] Performed By: #### C HEM-B, MG #### [facility] [address] [place], [address] GFR-NON AFRIC-AMER 106.4 ML/M1.7 Normal (60.0 - 115.8) [facility] Comment on above: Order Comment: FACIL ITY: [facility] [id number] Performed By: #### C HEM-B, MG #### [facility] [address] [place], [address] Glucose [Mass/Vol] 73 mg/dL Low (74 - 106) [facility] Comment on above: Order Comment: FACIL ITY: [facility] [id number] Performed By: #### C HEM-B, MG #### [facility] [address] [place], [address] Potassium [Moles/Vol] 5.4 mmol/L High (3.5 - 5.1) [facility] Comment on above: Order Comment: FACIL ITY: [facility] [id number] Performed By: #### C HEM-B, MG #### [facility] [address] [place], [address] Sodium [Moles/Vol] 131 mmol/L Low (137 - 145) [facility] Comment on above: Order Comment: FACIL ITY: [facility] [id number] Performed By: #### C HEM-B, MG #### [facility] [address] [place], [address] Urea nitrogen [Mass/Vol] 9 mg/dL Normal (4 - 25) [facility] Comment on above: Order Comment: FACIL ITY: [facility] [id number] Performed By: #### C HEM-B, MG #### [facility] [address] [place], [address] MAGNESIUMon 07-17-2024 Magnesium [Mass/Vol] 2.1 mg/dL Normal (1.6 - 2.3) [facility] Comment on above: Performed By: #### C HEM-B, MG #### [facility] [address] [place], [address] EGDon 02-28-2024 [facility] Venkat 02-28-2024 L Specimen: [id number] Received: 02/28/24 Status: DUDLEY Powell Num: [id number] Spec Type: Surgical Subm Dr: Aliza Spencer DO Tissues: A Stomach - Biopsy/Polyp (ANTRUM BX) B Stomach - Biopsy/Polyp (BX FUNDAL GLAND POLYP) C Esophagus Biopsy (DISTAL ESOPH BX) D Esophagus Biopsy (UPPER ESOPH BX) Procedures: HE/8, Gross/Micro L4/4 Age/ Patient Sex Location Account Attending Physician Madan Perry 64/F LABELL [id number] Aliza Spencer DO SPEC NUM: [id number] RECD: 02/28/24 STATUS: DUDLEY POWELL NUM: [id number] SUNSHINE: 02/28/[address]: Aliza Spencer DO ENTERED: 02/28/[address] [facility] [address]: Reece,Lab SPEC TYPE: Surgical DEPT: MADY [...] tissue fragment, entirely submitted in B1. Specimen: [id number] Received: 02/28/24 Status: DUDLEY Sherry Num: [id number] Spec Type: Surgical Subm Dr: Aliza Spencer DO Tissues: A Stomach - Biopsy/Polyp (ANTRUM BX) B Stomach - Biopsy/Polyp (BX FUNDAL GLAND POLYP) C Esophagus Biopsy (DISTAL ESOPH BX) D Esophagus Biopsy (UPPER ESOPH BX) Procedures: HE/8, Gross/Micro L4/4 Patient: Madan Perry [id number] (Continued) Specimen: [id number] Received: 02/28/24 (Continued) Gross Description (Continued) Signed (signature on file) Steven Ruvalcaba MD 02/29/24 1501 Specimen: [id number] Received: 02/28/24 Status: DUDLEY Powell Num: [id number] Spec Type: Surgical Subm Dr: Aliza Spencer DO Tissues: A Stomach - Biopsy/Polyp (ANTRUM BX) B Stomach - Biopsy/Polyp (BX FUNDAL GLAND POLYP) C Esophagus Biopsy (DISTAL ESOPH BX) D Esophagus Biopsy (UPPER ESOPH BX) Procedures: WILEY/Ratna, Gross/Micro L4/4 Patient: Madan Perry [id number] (Continued) Specimen: [id number] Received: 02/28/24 (Continued) Gross Description (Continued) C. Further labeled distal esophagus BX are 2 jiménez mucosal tissue fragments measuring 0.3 x 0.2 x 0.1 cm and 0.2 x 0.2 x 0.1 cm, entirely submitted in C1. D. Further labeled upper esophagus BX are 2 jiménez mucosal tissue fragments each measuring 0.2 x 0.1 x 0.1 cm, entirely submitted in D1. CPT Codes 65855g1 Specimen: [id number] Received: 02/28/24 Status: DUDLEY Powell Num: [id number] Spec Type: Surgical Subm Dr: Aliza Spencer, Tissues: A Stomach - Biopsy/Polyp (ANTRUM BX) B Stomach - Biopsy/Polyp (BX FUNDAL GLAND POLYP) C Esophagus Biopsy (DISTAL ESOPH BX) D Esophagus Biopsy (UPPER ESOPH BX) Procedures: HE/8, Gross/Micro L4/4 Patient: Madan Perry [id number] (Continued) Signed (signature on file) Steven Ruvalcaba MD 02/29/24 1501 Normal [facility] Surgical Pathologyon 024 [facility] URINE CULTUREon 12-23-2023 Bacteria identified Cx Nom (U) FINAL Normal (. - .) [facility] Comment on above: Order Comment: MS CC FACILITY: [facility] [id number] Result Comment: HUA N CATCH MID-STREAM URINE > 10,000 BUT < 100,000 CFU/ML RESEMBLES A CONTAMINATED URINE COLLECTION Performed By: #### C -UR #### [facility] [address] [facility], [address] Progress Noteson 08-25-2023 Treasury Representative Authentication Interface Message Text CC: Left hand and wrist pain Follow up after MRI done at [facility]. Normal [facility] [employer] Representative Authentication Interface Message Text Patient Office Note or Post OP Note Name:Madan Perry Date: 08/25/2023 CC: left wrist pain at [facility] area No chief complaint on file. [...] this patient. Aliza Aguilar MD Injection Procedure.formerly [facility], [facility] 08/25/2023 [id number] Madan Perry The patient requested an injection [...] alcohol and a dressing applied. Normal [facility] [employer] MR wrist LT wo conon 07-20-2 023 MR wrist LT wo con [place] [address] MRI Report Signed Patient: Madan Perry MR#: [id number] : 1960 Acct:[id number] Age/Sex: 63 / F ADM Date: 07/20/23 Loc: [facility] Room: Type: [facility] Attending Dr: Aliza Aguilar Copies to: Aliza Aguilar Ordering Provider: Aliza Aguilar Date of Service: 07/20/23 MR/MR hand LT wo con: MEDIAN NERVE COMPRESSION ([id number]) MR/MR wrist LT wo con: MEDIAN NERVE COMPRESSION ([id number]) XR/XR pre/post mri xray: MEDIAN NERVE COMPRESSION [...] Jose Dial M.D.07/21/2023 7:38 PM Dictation Location: [id number]-14 Transcribed By: [facility] 07/21/231937 Dictated By: Jose Dial DO 07/20/23 1525 Signed By: 07/21/231937 Normal [facility] Telephone Encounteron 2022 Treasury Representative Authentication Interface Message Text Spoke with patient and scheduled. Normal [facility] [employer] [facility] Telephone Encounteron 2022 Treasury Representative Authentication Interface Message Text Pt called as [...] she would need something sooner. Contact pt @[phone] Normal [facility] [employer] [facility] Addendum Noteon 06-16-2023 Treasury Representative Authentication Interface Message Text Addended by: ALIZA AGUILAR on: 06/16/2023 11:34 AM Modules accepted: Orders Normal [facility] [employer] [facility] Progress Noteson 06-16-2023 Treasury Representative Authentication Interface Message Text Patient Office Note [...] this patient. Aliza Aguilar MD Normal [facility] [employer] Treasury Representative Authentication Interface Message Text CC: Left hand pain Pain Left wrist and hand; tingling to middle and ring fingers. Pt states ganglion which was removed has returned and is painful. CMC joint painful. 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 Normal [facility] XR HAND LEFT 3 VIEWSon 06-16 [...] findings. Left hand MACRO: None Normal [facility] XR Hand - left 3 Viewson [...] with the findings. Left hand MACRO: None [facility]narrative[facility] - [facility] 3 ViewsOrdere d By: Alberto Llanes on 06-16-2023 [employer] Work Phone: US DARNELL DOP LEG BILon [...] [place] Date: 2023-01-27 17:22 Normal [facility] CBC AUTO DIFFon 01-12-2023 BASO # 0.1 103/ul Normal 0.0-0.1 [facility] Comment on above: Performed By: #### C BC #### [facility] [address] [address] [address] Rocio Hernandez Basophils/100 WBC (Bld) 1.0 % Normal 0.2-2.0 [facility] Comment on above: Performed By: #### C BC #### [facility] [address] [place] [address] Dr. Rocio Hernandez EO # 0.2 103/ul Normal 0.0-0.7 [facility] Comment on above: Performed By: #### C BC #### [facility] [address] [place] [address] Dr. Rocio Hernandez Eosinophils/100 WBC (Bld) 2.9 % Normal 0.9-7.0 [facility] Comment on above: Performed By: #### C BC #### [facility] [address] [place] [address] Dr. Rocio Hernandez Erythrocyte distribution width (RBC) [Ratio] 14.1 % Normal 11.0-15.0 [facility] Comment on above: Performed By: #### C BC #### [facility] [address] [place] [address] Dr. Rocio Hernandez Hematocrit (Bld) [Volume fraction] 41.2 % Normal 36.0-48.0 [facility] Comment on above: Performed By: #### C BC #### [facility] [address] [place] [address] Dr. Rocio Hernandez Hemoglobin (Bld) [Mass/Vol] 13.6 g/dL Normal 12.0-16.0 [facility] Comment on above: Performed By: #### C BC #### [facility] [address] [place] [address] Dr. Rocio Hernandez IG # 0.01 10e3/ul Normal 0.00-0.03 [facility] Comment on above: Performed By: #### C BC #### [facility] [address] [place] [address] Dr. Rocio Hernandez IG % 0.2 % Normal 0.0-0.5 [facility] Comment on above: Performed By: #### C BC #### [facility] [address] [place] [address] Dr. Rocio Hernandez LYMPH # 1.3 103/ul Normal 1.2-3.8 [facility] Comment on above: Performed By: #### C BC #### [facility] [address] [place] [address] Dr. Rocio Hernandez Lymphocytes/100 WBC (Bld) 21.9 % Normal 20.5-60.0 [facility] Comment on above: Performed By: #### C BC #### [facility] [address] [place] [address] Dr. Rocio Hernandez MANUAL DIFF REQ NO Normal [facility] Comment on above: Performed By: #### C BC #### [facility] [address] [place] [address] Dr. Rocio Hernandez MCH (RBC) [Entitic mass] 28.4 pg Normal 26.7-34.0 [facility] Comment on above: Performed By: #### C BC #### [facility] [address] [place] [address] Dr. Rocio Hernandez MCHC (RBC) [Mass/Vol] 33.0 g/dL Normal 29.9-35.2 [facility] Comment on above: Performed By: #### C BC #### [facility] [address] [place] [address] Dr. Rocio Hernandez MCV (RBC) [Entitic vol] 86.0 fL Normal 81.0-99.0 [facility] Comment on above: Performed By: #### C BC #### [facility] [address] [place] [address] Dr. Rocio Hernandez MONO # 0.6 103/ul Normal 0.3-0.8 [facility] Comment on above: Performed By: #### C BC #### [facility] [address] [place] [address] Dr. Rocio Hernandez Monocytes/100 WBC (Bld) 10.3 % Normal 1.7-12.0 [facility] Comment on above: Performed By: #### C BC #### [facility] [address] [place] [address] Dr. Rocio Hernandez NEUT # 3.8 103/ul Normal 1.4-6.5 [facility] Comment on above: Performed By: #### C BC #### [facility] [address] [address] [address] Rocio Hernandez Neutrophils/100 WBC (Bld) 63.7 % Normal 43.0-75.0 [facility] Comment on above: Performed By: #### C BC #### [facility] [address] [address] [address] Rocio Hernandez Platelet mean volume (Bld) [Entitic vol] 9.0 fL Critically low 9.5-13.5 [facility] Comment on above: Performed By: #### C BC #### [facility] [address] [address] [address] Rocio Hernandez PLT 360 103/ul Normal 150-450 [facility] Comment on above: Performed By: #### C BC #### [facility] [address] [address] [address] Rocio Hernandez RBC 4.79 106/ul Normal 4.20-5.40 [facility] Comment on above: Performed By: #### C BC #### [facility] [address] [address] [address] Rocio Hernandez WBC 5.9 103/ul Normal 4.0-11.0 [facility] Comment on above: Performed By: #### C BC #### [facility] [address] [address] [address] Rocio Hernandez FREE T3on 01-12-2023 FREE T3 2.31 pg/mlL Normal 2.18-3.98 [facility] Comment on above: Performed By: #### T SH, CMP, LIPID, FT3 ####[facility] [address] [place], [place] [address]TgDr. Rocio Hernandez FREE T4on 01-12-2023 Free T4 [Mass/Vol] 1.21 ng/dL Normal 0.76-1.46 [facility] Comment on above: Performed By: #### B 12FOL, FT4 #### [facility] [address] [address] [address] Rocio Hernandez GLYCOHEMOGLOBIN A1Con 2022 ADA RECOMMENDATION SEE BELOW Normal [facility] Comment on above: Result Comment: ADA RECOMMENDED LIMIT 4.0 - 6.0 ADA THERAPEUTIC TARGET < 7.0 ACTION SUGGESTED > 7.0 Performed By: #### A 1C ####[facility] [address] [place], [place] [address]TyDr. Rocio Hernandez Glucose [Mass/Vol] 123 mg/dL Normal [facility] Comment on above: Performed By: #### A 1C ####[facility] [address] [place] [address]Dr. Rocio Hernandez HbA1c (Bld) [Mass fraction] 5.9 % Normal 4.5-6.2 [facility] Comment on above: Performed By: #### A 1C ####[facility] [address] [address]Dr. Rocio Hernandez LIPID PROFILEon 01-12-2023 CHOL-HDL RATIO NORM SEE BELOW Normal [facility] Comment on above: Result Comment: 3.3 - 4.4 LOW RISK 4.4 - 7.1 AVERAGE RISK 7.1 - 11.0 MODERATE RISK >11.0 HIGH RISK Performed By: #### T SH, CMP, LIPID, FT3 #### [facility] [address] [address] [address] Rocio Hernandez Cholesterol [Mass/Vol] 203 mg/dL Critically high <=200 [facility] Comment on above: Performed By: #### T SH, CMP, LIPID, FT3 #### [facility] [address] [address] [address] Rocio Hernandez Cholesterol in HDL [Mass/Vol] 89 mg/dL Critically high 40-60 [facility] Comment on above: Performed By: #### T SH, CMP, LIPID, FT3 #### [facility] [address] [address] [address] Rocio Hernandez Cholesterol in LDL [Mass/Vol] 87.8 mg/dL Normal [facility] Comment on above: Performed By: #### T SH, CMP, LIPID, FT3 #### [facility] [address] [address] [address] Rocio Hernandez Cholesterol.total/C holesterol in HDL [Mass ratio] 2.3 {ratio} Normal [facility] Comment on above: Performed By: #### T SH, CMP, LIPID, FT3 #### [facility] [address] [address] [address] Rocio Hernandez HDL NORMAL > or = 60 mg/dl - LO W CARDIOVASCULAR RISK <40 mg/dl - HIGH CARDIOVASCULAR RISK Normal [facility] Comment on above: Performed By: #### T SH, CMP, LIPID, FT3 #### [facility] [address] [address] [address] Rocio Hernandez LDL CALC NORMAL SEE BELOW Normal [facility] Comment on above: Result Comment: <100 mg/dl OPTIMAL 100 - 129 mg/dl NEAR OR ABOVE OPTIMAL 130 - 159 mg/dl BORDERLINE HIGH 160 - 189 mg/dl HIGH >190 mg/dl VERY HIGH Performed By: #### T SH, CMP, LIPID, FT3 #### [facility] [address] [address] [address] Rocio Hernandez Triglyceride [Mass/Vol] 131 mg/dL Normal <=150 [facility] Comment on above: Performed By: #### T SH, CMP, LIPID, FT3 #### [facility] [address] [address] [address] Rocio Hernandez VLDL CALC 26.2 mg/dL Normal [facility] Comment on above: Performed By: #### T SH, CMP, LIPID, FT3 #### [facility] [address] [address] [address] Rocio Hernandez MICROALB CREAT RATIO RANDOMo n 01-12-2023 mALB <1.3 Normal <=30.0 [facility] Comment on above: Performed By: #### M CRR ####[facility] [address] [address]Dr. Rocio Hernandez MALB CR RATIO 13.6 mg/g Normal 0.0-29.9 [facility] Comment on above: Performed By: #### M CRR ####[facility] [address] [id number]. Rocio Hernandez MALB CR RATIO RANGE SEE BELOW Normal [facility] Comment on above: Result Comment: NO M ICROALBUMINURIA 0-29 MG/G CLINICAL MICROALBUMINURIA 30-300 MG/G MACROALBUMINURIA >300 MG/G Performed By: #### M CRR ####[facility] [address] [place], [place] [address]LoDr. Rocio Hernandez URINE CREAT 95.84 mg/dL Normal 20.00-300.00 [facility] Comment on above: Performed By: #### M CRR ####[facility] [address] [place], [place] [address]QlDr. Rocio Hernandez PROF 14(COMP METB)on 023 Albumin [Mass/Vol] 3.8 g/dL Normal 3.4-5.0 [facility] Comment on above: Performed By: #### T SH, CMP, LIPID, FT3 #### [facility] [address] [address] [address] Rocio Hernandez Albumin/Globulin [Mass ratio] 0.9 {ratio} Normal [facility] Comment on above: Performed By: #### T SH, CMP, LIPID, FT3 #### [facility] [address] [address] [address] Rocio Hernandez ALP [Catalytic activity/Vol] 111 U/L Normal 46-116 [facility] Comment on above: Performed By: #### T SH, CMP, LIPID, FT3 #### [facility] [address] [address] [address] Rocio Hernandez ALT [Catalytic activity/Vol] 42 U/L Normal 14-59 [facility] Comment on above: Performed By: #### T SH, CMP, LIPID, FT3 #### [facility] [address] [address] [address] Rocio Hernandez Anion gap [Moles/Vol] 10.8 mmol/L Normal [facility] Comment on above: Performed By: #### T SH, CMP, LIPID, FT3 #### [facility] [address] [address] [address] Rocio Hernandez AST [Catalytic activity/Vol] 24 U/L Normal 15-37 [facility] Comment on above: Performed By: #### T SH, CMP, LIPID, FT3 #### [facility] [address] [address] [address] Rocio Hernandez Bilirubin [Mass/Vol] 0.4 mg/dL Normal 0.2-1.0 [facility] Comment on above: Performed By: #### T SH, CMP, LIPID, FT3 #### [facility] [address] [place] [address] Dr. Rocio Hernandez Calcium [Mass/Vol] 9.6 mg/dL Normal 8.5-10.1 [facility] Comment on above: Performed By: #### T SH, CMP, LIPID, FT3 #### [facility] [address] [place] [address] Dr. Rocio Hernandez Chloride [Moles/Vol] 93 mmol/L Critically low 98-107 [facility] Comment on above: Performed By: #### T SH, CMP, LIPID, FT3 #### [facility] [address] [place] [address] Dr. Rocio Hernandez CO2 [Moles/Vol] 31.2 mmol/L Normal 21.0-32.0 [facility] Comment on above: Performed By: #### T SH, CMP, LIPID, FT3 #### [facility] [address] [place] [address] Dr. Rocio Hernandez Creatinine [Mass/Vol] 1.02 mg/dL Normal 0.55-1.02 [facility] Comment on above: Performed By: #### T SH, CMP, LIPID, FT3 #### [facility] [address] [place] [address] Dr. Rocio Hernandez EGFR-AF AFGHAN >60 Normal >=60 [facility] Comment on above: Performed By: #### T SH, CMP, LIPID, FT3 #### [facility] [address] [place] [address] Dr. Rocio Hernandez EGFR-NON AF AFGHAN 55 mL/min/1.73m2 Critically low >=60 [facility] Comment on above: Performed By: #### T SH, CMP, LIPID, FT3 #### [facility] [address] [address] [address] Rocio Hernandez Globulin (S) [Mass/Vol] 4.4 g/dL Normal [facility] Comment on above: Performed By: #### T SH, CMP, LIPID, FT3 #### [facility] [address] [place] [address] Dr. Rocio Hernandez Glucose [Mass/Vol] 102 mg/dL Normal 74-106 [facility] Comment on above: Performed By: #### T SH, CMP, LIPID, FT3 #### [facility] [address] [address] [address] Rocio Hernandez Potassium [Moles/Vol] 4.0 mmol/L Normal 3.5-5.1 [facility] Comment on above: Performed By: #### T SH, CMP, LIPID, FT3 #### [facility] [address] [place] [address] Dr. Rocio Hernandez Protein [Mass/Vol] 8.2 g/dL Normal 6.4-8.2 [facility] Comment on above: Performed By: #### T SH, CMP, LIPID, FT3 #### [facility] [address] [place] [address] Dr. Rocio Hernandez Sodium [Moles/Vol] 131 mmol/L Critically low 136-145 [facility] Comment on above: Performed By: #### T SH, CMP, LIPID, FT3 #### [facility] [address] [place] [address] Dr. Rocio Hernandez Urea nitrogen [Mass/Vol] 6.0 mg/dL Critically low 7.0-18.0 [facility] Comment on above: Performed By: #### T SH, CMP, LIPID, FT3 #### [facility] [address] [place] [address] Dr. Rocio Hernandez Urea nitrogen/Creatinine [Mass ratio] 5.9 mg/mg Normal [facility] Comment on above: Performed By: #### T SH, CMP, LIPID, FT3 #### [facility] [address] [address] [address] Rocio Hernandez TSHon 01-12-2023 TSH 5.647 uIU/mL Critically high 0.358-3.740 [facility] Comment on above: Performed By: #### T SH, CMP, LIPID, FT3 #### [facility] [address] [address] [address] Rocio Hernandez VIT B12 AND FOLATEon 023 Cobalamin (Vitamin B12) [Mass/Vol] 1189.0 pg/mL Critically high 193.0-986.0 [facility] Comment on above: Performed By: #### B 12FOL, FT4 #### [facility] [address] [address] [address] Rocio Hernandez FOLATE 27.30 ng/mL Normal 8.60-58.90 [facility] Comment on above: Performed By: #### B 12FOL, FT4 #### [facility] [address] [place] [address] Dr. Rocio Hernandez MG MAMM SCREEN 3D TANIA CADon 12-19-2022 MG MAMM SCREEN 3D TANIA CAD Patient: MADAN PERRY Exam Date: 12/19/2022 : 1960 Gender:F Ordering : DR ATNK LAKE D.O. Admission #: [id number] Family : Order #: [id number] CLICK HERE TO VIEW EXAM RADIOLOGY REPORT [...] ovarian cancer at age 54. LOCATION: [facility] BREAST COMPOSITION: Scattered areas fibroglandular density. FINDINGS: [...] M.D. on 12/19/2022 at 11:19 Normal [facility] XR DEXA BONE DENSITYon 12-19 XR [...] by: LIZ FLORES Date: 2022-12-19 10:01 Normal [facility] FREE T3on 03-22-2022 FREE T3 2.43 pg/mlL Normal 2.18-3.98 [facility] Comment on above: Performed By: #### B MP, FT3, TSH ####[facility] [address] [place], [place] [address]QlClem Hernandez FREE T4on 03-22-2022 Free T4 [Mass/Vol] 1.43 ng/dL Normal 0.76-1.46 [facility] Comment on above: Performed By: #### F T4 ####[facility] [id number] [address]Dr. Rocio Hernandez PROF CHEM 8 (BAS METB)on Anion gap [Moles/Vol] 10.2 mmol/L Normal [facility] Comment on above: Performed By: #### B MP, FT3, TSH ####[facility] [address] [address]Dr. Rocio Hernandez Calcium [Mass/Vol] 8.8 mg/dL Normal 8.5-10.1 [facility] Comment on above: Performed By: #### B MP, FT3, TSH ####[facility] [address] [address]Dr. Rocio Hernandez Chloride [Moles/Vol] 104 mmol/L Normal 98-107 [facility] Comment on above: Performed By: #### B MP, FT3, TSH ####[facility] [address] [place], [place] [address]Dr. Rocio Hernandez CO2 [Moles/Vol] 31.7 mmol/L Normal 21.0-32.0 [facility] Comment on above: Performed By: #### B MP, FT3, TSH ####[facility] [address] [place], [place] [address]Dr. Rocio Hernandez Creatinine [Mass/Vol] 0.96 mg/dL Normal 0.55-1.02 [facility] Comment on above: Performed By: #### B MP, FT3, TSH ####[facility] [address] [address]Dr. Rocio Hernandez EGFR-AF AFGHAN >60 Normal >=60 [facility] Comment on above: Performed By: #### B MP, FT3, TSH ####[facility] [address] [address]Dr. Rocio Hernandez EGFR-NON AF AFGHAN 59 mL/min/1.73m2 Critically low >=60 [facility] Comment on above: Performed By: #### B MP, FT3, TSH ####[facility] [address] [address]Dr. Rocio Hernandez Glucose [Mass/Vol] 110 mg/dL Critically high 74-106 [facility] Comment on above: Performed By: #### B MP, FT3, TSH ####[facility] [address] [address]Dr. Rocio Hernandez Potassium [Moles/Vol] 2.9 mmol/L Critically low 3.5-5.1 [facility] Comment on above: Result Comment: TEST REPEATED CRITICAL VALUE VERIFIED Performed By: #### B MP, FT3, TSH ####[facility] [address] [address]Dr. Rocio Hernandez Sodium [Moles/Vol] 141 mmol/L Normal 136-145 [facility] Comment on above: Performed By: #### B MP, FT3, TSH ####[facility] [address] [address]Dr. Rocio Hernandez Urea nitrogen [Mass/Vol] 12.0 mg/dL Normal 7.0-18.0 [facility] Comment on above: Performed By: #### B MP, FT3, TSH ####[facility] [address] [address]Dr. Rocio Hernandez Urea nitrogen/Creatinine [Mass ratio] 12.5 mg/mg Normal [facility] Comment on above: Performed By: #### B MP, FT3, TSH ####[facility] [address] [address]Dr. Rocio Hernandez TSHon 03-22-2022 TSH 0.137 uIU/mL Critically low 0.358-3.740 [facility] Comment on above: Performed By: #### B MP, FT3, TSH ####[facility] [address] [address]Dr. Rocio Hernandez Patient Letter FTon 2020 Patient Letter FT (Inserted Image. Wilda ble to display) May 26, 2021 MADAN PERRY [address] [place] [address] MADAN PERRY 1960 Dear Madan, This is a SECOND ATTEMPT to remind you that you are due for an appointment with [facility]. Please contact our office at [phone] to schedule an appointment at your earliest convenience. Thank you, [facility] Normal [facility] Reminderson 05-26-2021 Reminders - From: Jane Onofre To: [facility] - Reminders/Recalls; Sent: 01/18/2021 12:33:31 EDT Show up: 04/25/2021 12:33:00 EDT Subject: Ambulatory Reminder Due Date/Time: 06/09/2021 12:33:00 EDT Reminder/Recall sara peace 5 year colon 06/09/2021 first recall letter second rcall letter Normal [facility] Patient Letter FTon 2020 Patient Letter FT (Inserted Image. Wilda ble to display) May 05, 2021 MADAN PERRY [address] [place] [address] MADAN PERRY 1960 Dear Madan, This is a reminder that you are due for an appointment with [facility]. Please contact our office at [phone] to schedule an appointment at your earliest convenience. Thank you, [facility] Vital Signs Date Time Vital Sign Value Performing Clinician Facility 06-27-2024 12:50-0400 Body height 161.29 cm [facility] 06-27-2024 12:50-0400 Body mass index (BMI) [Ratio] 27 kg/m2 [facility] 06-27-2024 12:50-0400 Body weight 70.3 kg [facility] 05-28-2024 13:040 Body height 161.29 cm DO [place] Work Phone: [facility] 05-28-2024 13:19-040 Body mass index (BMI) [Ratio] 26.5 kg/m2 DO [place] Work Phone: [facility] 05-28-2024 [id number] Body weight 69.11 kg DO [place] Work Phone: [facility] 03-14-2024 11:15-0400 Diastolic blood pressure 69 mm[Hg] Steven Tavera MD Work Phone: [facility] 03-14-2024 11:15-0400 Heart rate 109 /min Steven Tavera MD Work Phone: [facility] 03-14-2024 11:15-0400 Systolic blood pressure 108 mm[Hg] Steven Tavera MD Work Phone: [facility] 03-14-2024 11:12-0400 Body height 162.6 cm Steven Tavear MD Work Phone: [facility] 03-14-2024 11:12-0400 Body mass index (BMI) [Ratio] 25.92 kg/m2 Steven Tavera MD Work Phone: [facility] 03-14-2024 11:12-0400 Body weight 68.49 kg Steven Tavera MD Work Phone: [facility] 02-20-2024 10:27-0400 Body height 162.6 cm Amita Simpson [employer]PECT[employer]-FLIGHT OPERATION COORDINATOR Work Phone: [facility] 02-20-2024 10:27-0400 Body mass index (BMI) [Ratio] 26.88 kg/m2 Amita Simpson [employer] INSPECTOR-FLIGHT OPERATION COORDINATOR Work Phone: [facility] 02-20-2024 10:27-0400 Body weight 71.03 kg Amita Simpson [employer] INSPECTOR-FLIGHT OPERATION COORDINATOR Work Phone: [facility] 02-20-2024 10:27-0400 Diastolic blood pressure 70 mm[Hg] Amita Simpson [employer] INSPECTOR-FLIGHT OPERATION COORDINATOR Work Phone: [facility] 02-20-2024 10:27-0400 Heart rate 97 /min Amita Simpson [employer] INSPECTOR-FLIGHT OPERATION COORDINATOR Work Phone: [facility] 02-20-2024 10:27-0400 Systolic blood pressure 141 mm[Hg] Amita Simpson [employer] INSPECTOR-FLIGHT OPERATION COORDINATOR Work Phone: [employer] [facility] 05-09-2022 16:35-0400 Body height 161.29 cm Adilai Cardenasault Other [facility] Other 05-09-2022 16:35-0400 Body mass index (BMI) [Ratio] 25.63 kg/m2 Adilia Rosa M Other [facility] Other 05-09-2022 16:35-0400 Body temperature 97.8 [degF] Adilia Cardenasault Other [facility] Other 05-09-2022 16:35-0400 Body weight 66.68 kg Adilia Cardenasault Other [facility] Other 05-09-2022 16:35-0400 Diastolic blood pressure 79 mm[Hg] Adilia Cardenasault Other [facility] Other 05-09-2022 16:35-0400 Respiratory rate 18 /min Adilia Cardenasault Other [facility] Other 05-09-2022 16:35-0400 SaO2% (BldA) [Mass fraction] 98 % Adliia Rosa M Other [facility] Other 05-09-2022 16:35-0400 Systolic blood pressure 136 mm[Hg] Adilia Rosa M Other [facility] Other 07-21-2021 16:05-0400 Body height 161.29 cm Lilian Ferreira Other [facility] Other 07-21-2021 16:05-0400 Body mass index (BMI) [Ratio] 26.5 kg/m2 Lilian Ferreira Other [facility] Other 07-21-2021 16:05-0400 Body temperature 96.2 [degF] Lilian Ferreira Other [facility] Other 07-21-2021 16:05-0400 Body weight 68.95 kg Lilian Ferreira Other [facility] Other 07-21-2021 16:05-0400 Diastolic blood pressure 95 mm[Hg] Lilian Ferreira Other [facility] Other 07-21-2021 16:05-0400 Respiratory rate 18 /min Lilian Ferreira Other [facility] Other 07-21-2021 16:05-0400 SaO2% (BldA) [Mass fraction] 99 % Lilian Ferreira Other [facility] Other 07-21-2021 16:05-0400 Systolic blood pressure 132 mm[Hg] Lilian Ferreira Other [facility] Other 06-22-2021 14:20-0400 Body height 161.29 cm Adilia Rosa M Other [facility] Other 06-22-2021 14:20-0400 Body mass index (BMI) [Ratio] 25.98 kg/m2 Adilia Rosa M Other [facility] Other 06-22-2021 14:20-0400 Body temperature 96.4 [degF] Adilia Rosa M Other [facility] Other 06-22-2021 14:20-0400 Body weight 67.59 kg Adilia Mederos Other [facility] Other 06-22-2021 14:20-0400 Diastolic blood pressure Adilia Mederos Other [facility] Other 06-22-2021 14:20-0400 Respiratory rate 18 /min Adilia Mederos Other [facility] Other 06-22-2021 14:20-0400 SaO2% (BldA) [Mass fraction] 98 % Adilia Mederos Other [facility] Other 06-22-2021 14:20-0400 Systolic blood pressure 111 mm[Hg] Adilia Mederos Other [facility] Other Encounters Encounter Date Encounter Type Care Provider Facility Start: 06-27-2024 End: 06-27-2024 ambulatory [facility] Work Phone: Start: 06-27-2024 End: 06-27-2024 Patient encounter procedure [facility] Work Phone: Start: 06-11-2024 End: 06-11-2024 Bamboo flowsheet Ivy Aguillon Felter [employer] INSPECTOR-FLIGHT OPERATION COORDINATOR Work Phone: [facility] Start: 06-11-2024 End: 06-11-2024 Bamboo flowsheet Ivy A Felter [employer] INSPECTOR-FLIGHT OPERATION COORDINATOR Work Phone: [facility] Start: 06-11-2024 End: 06-11-2024 Office outpatient visit 15 minutes Ivy Aguillon Felter [employer] INSPECTOR-FLIGHT OPERATION COORDINATOR Work Phone: [facility] Comment on above: Dermatofibroma (Prim maurisio Dx); Angioma of skin; Lentigines; Garcia angioma; Other nonthrombocytopenic purpura (CMS/HCC) Start: 06-11-2024 End: 06-11-2024 ambulatory IVY SAEZ Not Available Start: 05-28-2024 End: 05-28-2024 ambulatory [place] Work Phone: [facility] Work Phone: Start: 05-28-2024 End: 05-28-2024 Patient encounter procedure DO [place] Work Phone: [facility] Work Phone: Start: 05-20-2024 End: 05-20-2024 ambulatory Meet Harp MD Facility: [place] Start: 05-13-2024 End: 05-13-2024 ambulatory Meet Harp MD Facility:[facility] Start: 03-14-2024 End: 03-14-2024 Office outpatient visit 10 minutes Steven Tavera MD Work Phone: [facility] [place] [facility] Comment on above: Varicose veins of doyle th legs with edema (Primary Dx) Start: 03-14-2024 End: 03-14-2024 ambulatory STEVEN TAVERA [facility] Start: 03-04-2024 End: 03-04-2024 Telephone encounter [facility] Start: 03-01-2024 End: 03-01-2024 Orders Only Not In System Ref Prov [facility] Start: 02-29-2024 End: 02-29-2024 Orders Only Bev Carlton A [facility] Comment on above: Dysphagia, unspecifi ed type Start: 02-28-2024 End: 02-28-2024 ambulatory DO [place] Work Phone: [facility] Work Phone: Start: 02-28-2024 End: 02-28-2024 Departed Referred DO [place] Work Phone: [facility] Start: 02-20-2024 End: 02-20-2024 Office outpatient new 30 minutes Amita Simpson [employer] INSPECTOR-FLIGHT OPERATION COORDINATOR Work Phone: [facility] [place] [facility] Comment on above: Dysphagia, unspecifi ed type (Primary Dx) Start: 02-20-2024 End: 02-20-2024 ambulatory [facility] Start: 02-06-2024 End: 02-06-2024 Telephone encounter Amita Simpson [employer] INSPECTOR-FLIGHT OPERATION COORDINATOR Work Phone: [facility] Start: 01-15-2024 End: 01-15-2024 ambulatory [facility] Start: 12-04-2023 End: 12-04-2023 ambulatory Andsilvana Kellyitis Facility:[facility] Start: 11-06-2023 End: 11-06-2023 ambulatory Andsilvana Harp MD Facility:[facility] Start: 10-09-2023 End: 10-09-2023 ambulatory Andsilvana Harp MD Facility:[facility] Start: 08-25-2023 End: 08-25-2023 ambulatory ALIZA AGUILAR Facility:[facility] Start: 08-25-2023 End: 08-25-2023 Office outpatient visit 15 minutes Aliza Aguilar MD Work Phone: [address] [facility] Comment on above: Hand arthritis (Prim maurisio Dx) Start: 08-21-2023 End: 08-21-2023 ambulatory Jjus Quinten Kellyitis Facility:[facility] Start: 08-19-2023 Letter encounter Yesy Covarrubias OT Work Phone: [facility] Start: 07-31-2023 End: 07-31-2023 ambulatory Andsilvana Harp MD Facility: [facility] Start: 07-24-2023 End: 07-24-2023 ambulatory Andrius Norahytautjoanne Harp MD Facility:[facility] Start: 07-20-2023 End: 07-20-2023 Patient encounter procedure DO [place] Work Phone: [facility] [address] Work Phone: Start: 07-20-2023 End: 07-20-2023 ambulatory DO [place] Work Phone: [facility] Work Phone: Start: 07-10-2023 End: 07-10-2023 ambulatory Meet Harp MD Facility:[facility] Start: 06-16-2023 End: 06-17-2023 ambulatory UNKNOWN PROVIDER Facility:[facility] Start: 06-16-2023 End: 06-16-2023 Office outpatient visit 25 minutes Aliza Aguilar MD Work Phone: [address] [facility] Comment on above: Left hand pain (Prim maurisio Dx) Start: 06-16-2023 End: 06-16-2023 Subsequent hospital visit by physician [id number] Op Op X-Ray 1 Work Phone: [address] S[facility] Radiology Comment on above: Left hand pain Start: 02-07-2023 End: 02-08-[address] [place] Facility:[facility]1 Start: 01-27-2023 End: 01-28-[address] [place] Facility:[facility] Start: 01-23-2023 End: 02-22-2023 ambulatory SHAIKH Eduardo ROSS Facility:[facility]1 Start: 01-16-2023 Encounter for genera l adult medical examination without abnormal findings DR [place] [facility] Start: 01-12-2023 End: 01-13-[address] [...] 05-09-2022 End: 05-09-2022 ambulatory Adilia Mederos Other [facility] Other Start: 05-09-2022 Office outpatient vi sit 15 minutes Adilia Mederos [facility] Start: 05-04-2022 End: 05-05-[address] [place] Facility:[facility] Start: 04-25-2022 End: 05-25-2022 ambulatory DUARTE H FAWWAAbdifatah Facility:[facility]1 Start: 03-25-2022 End: 04-22-2022 ambulatory DUARTE H [id number] Facility:[facility]1 Start: 03-23-[address] [place] Fac ility:[facility]1 Start: 03-22-2022 End: 03-23-[address] [place] Facility:[facility] Start: 07-21-2021 Patient encounter procedure Lilian ramírez [facility] Start: 06-22-2021 Office outpatient vi sit 15 minutes Adilia Mederos [facility] Procedures Date Procedure Procedure Detail Performing Clinician Start: 09-26-2024 Blood count hemoglobin Comment on above: Order Comment: FACILITY: [facility] [id number] Performed By: #### C BC/D3, ESRCRP, RHF, URCA #### [facility] [address] [place], [address] Start: 02-28-2024 Esophagogastroduodenoscopy Amita Aguillon Car roll [employer] INSPECTOR-FLIGHT OPERATION COORDINATOR Work Phone: Start: 02-28-2024 Level i surg pathology gross examination only Not In System Ref Prov Start: 08-25-2023 Injection 1 tendon sheath/ligament aponeurosis Aliza Aguilar MD Work Phone: Start: 06-16-2023 Radex hand minimum 3 views Aliza davenport MD Work Phone: Plan of Treatment Date Care Activity Detail Author Start: 06-04-2028 DTaP,Tdap and Td Vaccines (2 - Td or Tdap) DTaP,Tdap and Td Vaccines (2 - Td or Tdap) [facility] Start: 06-04-2028 Tetanus vaccination Tetanus (Td or Tdap) [facility] Start: 01-13-2028 Cholesterol [Mass/volume] in Serum or Plasma Cholesterol [facility] Start: 06-12-2025 End: 06-12-2025 Patient encounter procedure 06/12/2025 1:05 PM EDT Office Visit [facility] [address] [place] [address] Ivy Saez [employer] INSPECTOR-FLIGHT OPERATION COORDINATOR [address] [place] [address] [facility] Start: 02-19-2025 Adult BMI Screening Adult BMI Screening [facility] Start: 02-19-2025 Tobacco Screening Tobacco Screening [facility] Start: 06-26-2024 Pneumococcal Vaccine: 65+ Years (3 of 3 - PPSV23 or PCV20) Pneumococcal Vaccine: 65+ Years (3 of 3 - PPSV23 or PCV20) [facility] Start: 06-11-2024 End: 06-11-2024 Patient encounter procedure 06/11/2024 1:05 PM EDT Office Visit [facility] [address] [place] [address] Ivy Saez APRN-FLIGHT OPERATION COORDINATOR [address] [place] [address] Arrived [facility] Comment on above: Arrived Start: 05-28-2024 Patient referral [facility] Work Phone: Start: 05-26-2024 Influenza vaccination [facility] Start: 03-14-2024 End: 03-14-2024 Patient encounter procedure 03/14/2024 11:20 AM EDT Office Visit [facility] [address] [place] [address] Steven Tavera MD [address], [facility] [address] [place] [address] [facility] Start: 03-07-2024 End: 03-07-2024 Patient encounter procedure 03/07/2024 9:00 AM EDT Office Visit [facility] [address] [place] [address] Steven Tavera MD [address], [facility] [address] [place] [address] [facility] Start: 03-03-2024 Adult BMI Screening Adult BMI Screening [facility] Start: 03-03-2024 Tobacco Screening Tobacco Screening [facility] Start: 02-20-2024 End: 02-20-2024 Patient encounter procedure 02/20/2024 10:30 AM EDT Office Visit [facility] [place] [address] Amita Simpson, [employer] INSPECTOR-FLIGHT OPERATION COORDINATOR [address] [place] [address] [facility] Start: 02-11-2024 Fall Risk Screening Fall Risk Screening [facility] Start: 12-17-2023 COVID-19 Vaccine ( season) COVID-19 Vaccine () [facility] Start: 08-25-2023 End: 08-25-2023 Patient encounter procedure 08/25/2023 11:30 AM EST Office Visit [address] [facility] [address] [address] Aliza Aguilar MD [address] [place] [address] [facility] Start: 07-20-2023 XR pre/post mri xray XR pre/post mri xray [facility] Start: 07-20-2023 [facility] Start: 07-20-2023 MR Wrist - left WO contrast [facility] Start: 07-20-2023 MRI of left wrist MR wrist LT wo con [facility] Start: 07-20-2023 MR Hand - left WO contrast [facility] Start: 07-20-2023 MRI of left hand MR hand LT wo con [facility] Start: 06-25-2023 Influenza vaccination Influenza Vaccine (#1) [facility] Start: 06-16-2023 End: 06-16-2024 MR Wrist - left WO contrast MR WRIST LEFT W/O Imaging Routine Left hand pain Expected: 06/16/2023, Expires: 06/16/2024 [facility]: Comment on above: Expected: 06/16/2023, Expires: Start: 05-26-2023 COVID-19 Vaccine () COVID-19 Vaccine () [facility] Start: 05-26-2023 Influenza vaccination Influenza Vaccine (#1) [facility] Start: 06-25-2022 Influenza vaccination Influenza Vaccine (#1) [facility] Start: 06-08-2022 COVID-19 Vaccine (4 - Booster for Pfizer series) COVID-19 Vaccine (4 - Booster for Pfizer series) [facility] Start: 2019 RSV vaccine (optional 60+ years) RSV vaccine (optional 60+ years) [facility] Start: 09-25-2014 Annual wellness visit Annual Wellness Visit (G0438) [facility] Start: 2009 Measurement of occult blood in single stool specimen FIT [facility] Start: 2009 Screening for malignant neoplasm of breast Mammography [facility] Start: 2009 Screening for malignant neoplasm of colon CRC Screening [facility] Start: 02-11-2004 Cholesterol [Mass/volume] in Serum or Plasma Cholesterol [facility] Start: 02-11-2004 Screening for malignant neoplasm of colon [facility] Start: 1999 Screening for malignant neoplasm of breast [facility] Start: 1989 Screening for malignant neoplasm of cervix [facility] Start: 02-11-1980 Screening for malignant neoplasm of cervix Pap Smear [facility] Start: 1977 Adult BMI Follow Up Plan Adult BMI Follow Up Plan [facility] Start: 1977 Hepatitis C screening Hepatitis C Antibody [facility] Start: 1974 [facility] screening [facility] Start: 1971 Depression Screening Depression Screening [facility] Start: 1959 COVID-19 Vaccine ( formulation) COVID-19 [facility]ine ( formulation) [facility] Start: 1959 Screening for malignant neoplasm of colon [facility] End: 02-19-2025 Esophagogastroduodenoscopy EGD GI Routine Dysphagia, unspecified type 1 Occurrences starting 02/20/2024 until 02/19/2025 [facility] Work Phone: Comment on above: 1 Occurrences starting 02/20/2024 until 02/19/2025 Patient referral [facility] Work Phone: Immunizations Immunization Date Immunization Notes Care Provider Fa cilitonya 08-11-2023 influenza, injectabl e, quadrivalent, preservative free Aliza Aguilar MD Work Phone: [facility] 08-11-2023 Respiratory syncytia l virus (RSV), vaccine, bivalent, protein subunit RSV prefusion F, diluent reconstituted, 0.5 mL, preservative free (DXB=759) Aliza Aguilar MD Work Phone: [facility] 08-11-2023 influenza virus vacc ine, unspecified formulation Amita Simpson [employer] Work Phone: [facility] 06-18-2022 influenza, injectabl e, quadrivalent, preservative free Aliza Aguilar MD Work Phone: [facility] 06-18-2022 influenza virus vacc ine, unspecified formulation Aliza Aguilar MD Work Phone: [facility] 02-05-2022 Pfizer Monovalent (1 2+ yrs) SARS-COV-2 (COVID-19) vaccine, mRNA, spike protein, LNP, pres. free, 30 mcg/0.3mL dose, betito-sucrose (SGB=837) Aliza Aguilra MD Work Phone: [facility] 08-11-2021 influenza, injectabl e, quadrivalent, preservative free Yesy Marci OT Work Phone: [facility] 08-11-2021 influenza virus vacc ine, unspecified formulation Yesy Marci OT Work Phone: [facility] 07-24-2020 zoster vaccine recombinant Yesy Marci OT Work Phone: [facility] 07-11-2020 Influenza, injectabl e, Madin Christal Canine Kidney, preservative free, quadrivalent Yesy Marci OT Work Phone: [facility] 04-18-2020 zoster vaccine recombinant Yesy Marci OT Work Phone: [facility] 08-28-2019 Influenza, injectabl e, Madin Christal Canine Kidney, preservative free, quadrivalent Ysey Marci OT Work Phone: [facility] 07-01-2019 influenza, high dose seasonal, preservative-free Yesy Marci OT Work Phone: [facility] 06-25-2019 pneumococcal polysaccharide vaccine, 23 valent Yesy Marci OT Work Phone: [facility] 07-06-2018 influenza, injectabl e, quadrivalent, contains preservative Yesy Marci OT Work Phone: [facility] 06-04-2018 tetanus toxoid, redu karen diphtheria toxoid, and acellular pertussis vaccine, adsorbed Yesy Marci OT Work Phone: [facility] 08-19-2017 influenza, injectabl e, quadrivalent, preservative free Yesy Marci OT Work Phone: [facility] 08-09-2017 influenza, injectabl e, quadrivalent, contains preservative Yesy Marci OT Work Phone: [facility] 08-01-2016 influenza, injectabl e, quadrivalent, preservative free Yesy Marci OT Work Phone: [facility] 07-11-2015 influenza, injectabl e, madin christal canine kidney, preservative free Yesy Marci OT Work Phone: [facility] 07-11-2015 pneumococcal conjuga te vaccine, 13 valent Yesy Marci OT Work Phone: [facility] 08-13-2009 novel influenza-H1N1 -09, preservative-free, injectable Yesy Marci OT Work Phone: [facility] 07-17-2009 influenza virus vacc ine, unspecified formulation Yesy Marci OT Work Phone: [facility] 08-15-2008 influenza virus vacc ine, unspecified formulation Yesy Marci OT Work Phone: [facility] Payers Date Payer Category Payer Self-pay [id number] 2018 Unknown [id number] 2010 Medicare [id number] [id number] [id number] 1959 Blue Cross Blue Shield [id number] 2.16.840.1.247703.19 1959 Medicare [id number] 2.16.840.1.185887.19 1959 Unknown [id number] 2.16.840.1.257786.3.579.2.593 1959 Unknown [id number] 2.16.840.1.978722.3.579.2.593 1959 Unknown [id number] 2.16.840.1.268563.3.579.2.593 1959 Unknown [id number] 2.16.840.1.071544.3.579.2.593 1959 Unknown [id number] 2.16.840.1.722498.3.579.2.593 1959 Unknown [id number] 2.16.840.1.456396.3.579.2.593 1959 Unknown [id number] 2.16.840.1.328258.3.579.2.593 1959 Unknown [id number] 2.16.840.1.522585.3.579.2.593 1959 Unknown [id number] 2.16.840.1.566301.3.579.2.593 1959 Unknown [id number] 2.16.840.1.410676.3.579.2.593 1959 Unknown [id number] 2.16.840.1.908456.3.579.2.593 1959 Unknown [id number] 2.16.840.1.190811.3.579.2.593 1959 Unknown [id number] 2.16.840.1.135632.3.579.2.593 1959 Unknown [id number] 2.16.840.1.352555.3.579.2.593 1959 Unknown [id number] 2.16.840.1.819086.3.579.2.593 1959 Unknown [id number] 2.16.840.1.407563.3.579.2.593 1959 Unknown [id number] 2.16.840.1.103951.3.579.2.593 1959 Unknown [id number] 2.16.840.1.125149.3.579.2.593 1959 Unknown [id number] 2.16.840.1.952573.3.579.2.593 1959 Unknown [id number] 2.16.840.1.025027.3.579.2.593 1959 Unknown [id number] 2.16.840.1.103661.3.579.2.732 1959 Unknown [id number] 2.16.840.1.123076.3.579.2.732 1959 Unknown [id number] 2.16.840.1.179416.3.579.2.732 1959 Unknown [id number] 2.16.840.1.313340.3.579.2.1286 1959 Unknown [id number] 2.16.840.1.338971.3.579.2.1286 1959 Unknown [id number] 2.16.840.1.534427.3.579.2.196 1959 Unknown [id number] 2.16.840.1.259169.3.579.2.196 1959 Unknown [id number] 2.16.840.1.040364.3.579.2.196 1959 Unknown [id number] 2.16.840.1.206153.3.579.2.196 1959 Unknown [id number] 2.16.840.1.033155.3.579.2. 1959 Unknown [id number] 2.16.840.1.650871.3.579.2. 1959 Unknown [id number] 2.16.840.1.638759.3.579.2. 1959 Unknown [id number] 2.16.840.1.962150.3.579.2. 1959 Unknown [id number] 2.16.840.1.337749.3.579.2. 1959 Unknown [id number] 2.16.840.1.222296.3.579.2.196 1959 Unknown [id number] 2.16.840.1.043679.3.579.2.1259 Medicare Medicare Nonpatient [id number] [id number] Unknown [id number] 2.16.840.1.128453.3.579.2.531 Unknown [id number] 2.16.840.1.705934.3.579.2.531 Social History Date Type Detail Facility Unknown if ever smoked [facility] Other Start: 11-05-2020 End: 06-11-2024 Sex Assigned At [employer] Other Start: 05-31-2019 End: 02-20-2024 Tobacco smoking status [facility] Ex-smoker [facility] History of tobacco use Current smoker [facility] Start: 05-31-2019 End: 02-20-2024 Tobacco use and exposure Smokeless tobacco non-user [facility] Start: 04-07-2020 Alcohol intake Lifetime non-d han (finding) [facility] Start: 07-09-2019 History SDOH Alcohol Frequency 1 [facility] Start: 1960 Sex [facility]igned At [facility] on [facility] Start: 1960 Sex Assigned At Female F [facility] Start: 05-22-2023 [facility] Start: 11-05-2020 End: 06-11-2024 History of Social function [facility] History of tobacco use Cigarette Smoker [facility] Start: 02-20-2024 End: 03-14-2024 Alcoholic beverage intake Ex-drinker (finding) [facility] Childcare Unknown [facility] Medical Equipment Procedure Code Equipment Code Equipment Origin al Text Equipment Identifier Dates Leola 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 - 06/11/2024 1:05 PM EDTAssessment & Plan Note - Steven Tavera MD - 03/14/2024 11:25 AM EDTAssessment & Plan Note - Steven Tavera MD - 03/14/2024 11:25 AM EDT Note Date & Type Note Facility 06-11-2024 History of Present illness Narrative Images from the original note [...] No treatment is necessary. 3. Lentigines Scattered jiémnez macules in sun-exposed areas. The patient was [...] skin exam documented in this encounter [facility] 03-14-2024 Evaluation + Plan note Associated Problem(s): Varicose veins of both legs with edema Compression stockings leg elevation exercise. [facility] 03-14-2024 Miscellaneous Notes Associated Problem(s): Varicose veins of both legs with edema Compression stockings leg elevation exercise. [facility] History of Present illness Narrative Images from the original note were not included. To: [place] DO HPI: Madan Perry is a 64 y.o. female with Bilateral lower extremity varicose veins and swelling. Use compression stockings. She is doing well. The swelling is controlled. She does not have significant pain there. She have thoracic spine issues and is being followed by pain management. She does not smoke and she has no arterial occlusive disease in her lower extremities.. Review of Systems: Review of Systems Constitutional: Negative. HENT: Negative. Respiratory: Negative. Cardiovascular: Negative. Gastrointestinal: Negative. Endocrine: Negative. Genitourinary: Negative. Musculoskeletal: Negative. Skin: Negative. Neurological: Negative. Hematological: Negative. Medications: Current Outpatient Medications on File Prior to Visit Medication Sig Dispense Refill acyclovir (ZOVIRAX) 400 mg tablet Take 1 tablet (400 mg total) by mouth 2 (two) times a day as needed. albuterol (PROVENTIL HFA;VENTOLIN HFA) 90 mcg/actuation inhaler Inhale 2 puffs every 6 (six) hours as needed for wheezing or shortness of breath. amitriptyline (ELAVIL) 100 mg tablet Take 1 tablet (100 mg total) by mouth once daily at bedtime. ARIPiprazole (ABILIFY) 10 mg tablet Take 1 tablet (10 mg total) by mouth in the morning. atorvastatin (LIPITOR) 10 mg tablet Take 1 tablet (10 mg total) by mouth in the morning. vvxvnkqape-miuzzdiznbcxn-nvck (FIORICET, ESGIC) 50-300-40 mg per capsule Take 1 capsule by mouth as needed. cholecalciferol, vitamin D3, 2,000 units tablet Take 1 tablet (2,000 Units total) by mouth in the morning. cyanocobalamin (VITAMIN B-12) 1,000 mcg/mL injection cyclobenzaprine (FLEXERIL) 10 mg tablet Take 1 tablet (10 mg total) by mouth 3 (three) times a day as needed. joleemlasnb-wijhpxqlx-uxjqpkzg (TRELEGY ELLIPTA) 200-62.5-25 mcg blister with device Inhale 1 puff once daily. fremanezumab-vfrm ([employer] AUTOINJECTOR) 225 mg/1.5 mL Inject 1.5 mL (225 mg total) under the skin. HYDROcodone-acetaminophen (NORCO) 5-325 mg per tablet as needed. hydrOXYzine (ATARAX) 25 mg tablet Take 1 tablet (25 mg total) by mouth 3 (three) times a day as needed for itching. levocetirizine (XYZAL) 5 mg tablet Take 1 tablet (5 mg total) by mouth every evening. levothyroxine (SYNTHROID, LEVOTHROID) 125 MCG tablet Take 1 tablet (125 mcg total) by mouth in the morning. linaCLOtide (LINZESS) 72 mcg capsule Take 1 capsule (72 mcg total) by mouth every morning before breakfast. lisinopriL (PRINIVIL,ZESTRIL) 5 mg tablet Take 1 tablet (5 mg total) by mouth in the morning. magnesium oxide 400 mg magnesium tablet Take 400 mg by mouth once daily. melatonin 10 mg tablet Take 10 mg by mouth nightly. montelukast (SINGULAIR) 10 mg tablet Take 1 tablet (10 mg total) by mouth in the morning. NIFEdipine (PROCARDIA) 10 mg capsule Take 1 capsule (10 mg total) by mouth once daily. omeprazole (PriLOSEC) 20 mg capsule Take 2 capsules (40 mg total) by mouth in the morning. potassium chloride (KLOR-CON M) 20 MEQ CR tablet Take 1 tablet (20 mEq total) by mouth in the morning and 1 tablet (20 mEq total) before bedtime. tiZANidine (ZANAFLEX) 4 mg tablet Take 1 tablet (4 mg total) by mouth every 6 (six) hours as needed for muscle spasms. VIIBRYD 40 mg tablet Take 1 tablet (40 mg total) by mouth daily with breakfast. vit A/vit C/vit E/zinc/copper (PRESERVISION AREDS ORAL) Take by mouth daily. warfarin (COUMADIN) 2 mg tablet Take 1 tablet (2 mg total) by mouth. zinc gluconate 50 mg tablet Take 1 tablet (50 mg total) by mouth in the morning. No current facility-administered medications on file prior to visit. Past Medical History: Past Medical History: Diagnosis Date CKD (chronic kidney disease) [place] [place] [place] Depression Diabetes mellitus [place] [place] GERD (gastroesophageal reflux disease) History of DVT (deep vein thrombosis) 2005;2007 HSV infection Hypertension Hypokalemia Hypothyroidism Insomnia Irritable bowel syndrome with constipation Migraines Osteopenia PAD [place]peripheral artery disease) [place] [place] P[place]peripheral vascular disease[place] [place] Past Surgical History: Past Surgical History: Procedure Laterality Date APPENDECTOMY 1988 BLADDER SUSPENSION 2005 SECTION 1984 COLONOSCOPY 1998 COLONOSCOPY 2002 ELBOW SURGERY 1991; 1999 Left elbow ulnar nerve decompression ESOPHAGOGASTRODUODENOSCOPY 1998 ESOPHAGOGASTRODUODENOSCOPY/COLONO SCOPY 2008 ESOPHAGOGASTRODUODENOSCOPY/COLONO SCOPY 03/2010 ESOPHAGOGASTRODUODENOSCOPY/COLONO SCOPY 2013 ESOPHAGOGASTRODUODENOSCOPY/COLONO SCOPY 2015 HAND SURGERY 03/2008 HAND SURGERY 2008 HERNIA REPAIR Right 03/09/2010 double HYSTERECTOMY 1988 partial INGUINAL HERNIA REPAIR Left 2006 LAPAROSCOPIC CHOLECYSTECTOMY 2003 OOPHORECTOMY Right 1997 TUBAL LIGATION 1985 UMBILICAL HERNIA REPAIR 2004 Social and Family History: Social History Socioeconomic History Marital status: Spouse name: Not on file Number of children: Not on file Years of education: Not on file Highest education level: Not on file Occupational History Not on file Tobacco Use Smoking status: Former Types: Cigarettes Smokeless tobacco: Never Vaping Use Vaping status: Never Used Substance and Sexual Activity Alcohol use: Not Currently Drug use: Not Currently Sexual activity: Defer Other Topics Concern Not on file Social History Narrative Not on file Social Determinants of Health Financial Resource Strain: Not on file Food Insecurity: No Food Insecurity (03/14/2024) Hunger Screening Food Insecurity - Worry: Never True Food Insecurity - Inability: Never True Transportation Needs: Not on file Physical Activity: Not on file Stress: Not on file Social Connections: Not on file Interpersonal Safety: Not on file Housing Instability: Not on file Family History Problem Relation Age of Onset Diabetes Mother Heart disease Mother Cancer Mother Breast cancer Mother Lung cancer Mother Pancreatic cancer Mother Hypertension Father Alcohol abuse Father Cerebral aneurysm Father Recent Labs: Recent and relative labs were reviewed and interpreted and contributed to the assessment and plan below. Vitals: BP 108/69 (BP Site: Left Arm, BP Postition: Standing, BP CUFF SIZE: M (9-13 inches)) Pulse 109 Ht 162.6 cm (5' 4 ) Wt 68.5 kg (151 lb) BMI 25.92 kg/m Body mass index is 25.92 kg/m . Physical Exam: Physical Exam Constitutional: Appearance: Normal appearance. HENT: Head: Normocephalic and atraumatic. Mouth/Throat: Mouth: Mucous membranes are moist. Eyes: Extraocular Movements: Extraocular movements intact. Pupils: Pupils are equal, round, and reactive to light. Cardiovascular: Rate and Rhythm: Normal rate and regular rhythm. Pulmonary: Effort: Pulmonary effort is normal. Breath sounds: Normal breath sounds. Abdominal: General: Abdomen is flat. Bowel sounds are normal. Palpations: Abdomen is soft. Musculoskeletal: General: Normal range of motion. Cervical back: Normal range of motion. Skin: General: Skin is warm and dry. Neurological: General: No focal deficit present. Mental Status: She is alert and oriented to person, place, and time. Mental status is at baseline. Psychiatric: Mood and Affect: Mood normal. Behavior: Behavior normal. Thought Content: Thought content normal. Judgment: Judgment normal. Recent testing: Assessment and Plan: Problem List Varicose veins of both legs with edema - Primary Current Assessment & Plan Compression stockings leg elevation exercise. Madan was seen today for pain and swelling of lower extremity, unspecified laterality and thorascic back pain. Diagnoses and all orders for this visit: Varicose veins of both legs with edema Steven Tavera MD, BOB, RPVI, FSVS, FACS [facility] This note was created with the assistance of a speech recognition program. While intending to generate a timely document that accurately reflects the content of the visit, no guarantee can be provided that every grammatical or spelling mistake has been or will be identified or corrected. Thank you for your understanding. documented in this encounter [facility] 03-04-2024 Miscellaneous Notes ----- Message from Aliza Spencer DO sent at 03/02/2024 11:23 AM EDT ----- Please let patient know that she has gastritis and esophagitis and she was already taking a proton pump inhibitor twice daily and I believe I added sucralfate 1 g p.o. a.c. and HS to her regimen as prescribed at the [facility]. Make sure that is true. Otherwise she may follow up p.r.n.. ThanksDr. Rasheed Verified patient is taking PPI and Sucralfate. Patient asked if we received the pathology results for the polyp that was biopsied in patient's stomach. Informed patient that I would clarify with Dr. Spencer and give her a call back. Images from the original note were not included. Message Received: Today DO Sylwia Belcher CMA Fundic gland polyp which is benign and very common. It is nothing to worry about. Dr. Rasheed Spoke with patient regarding polyp. Patient verbally understood with no further questions. documented in this encounter [employer] 03-04-2024 Telephone encounter Note ----- Message from Aliza Spencer DO sent at 03/02/2024 11:23 AM EDT ----- Please let patient know that she has gastritis and esophagitis and she was already taking a proton pump inhibitor twice daily and I believe I added sucralfate 1 g p.o. a.c. and HS to her regimen as prescribed at the [facility]. Make sure that is true. Otherwise she may follow up p.r.n.. ThanksDr. Rasheed [facility]24 Telephone encounter Note Verified patient is taking PPI and Sucralfate. Patient asked if we received the pathology results for the polyp that was biopsied in patient's stomach. Informed patient that I would clarify with Dr. Spencer and give her a call back. [facility] 03-04-2024 Telephone encounter Note Images from the original note were not included. Message Received: Today Aliza Spencer, DO Sylwia Lopez CMA Fundic gland polyp which is benign and very common. It is nothing to worry about. Dr. Rasheed [facility] 03-04-2024 Telephone encounter Note Spoke with patient regarding polyp. Patient verbally understood with no further questions. [facility] 02-20-2024 History of Present illness Narrative Images from the original note were not included. Chief Complaint: Dysphagia History of Present Illness Madan Perry is a 64 y.o. female who presents to the office for dysphagia. She states a few weeks ago she choked on a small piece of steak. Her had to performed the Heimlich on her. She ended up getting the steak out with her fingers. She states she also has trouble swallowing pills. She feels as if they get stuck in the back of her throat and sit there. She denies any difficulty swallowing liquids. She denies nausea and vomiting. She denies any abdominal pain or bloody stools. She denies heartburn, she is on omeprazole to control this. Her last EGD was 05/13/2020 significant for chronic gastritis and chronic inflammation of the lower esophagus. She is on coumadin daily for history of blood clots. Review of Systems Constitutional: Negative for fever and unexpected weight change. HENT: Positive for trouble swallowing. Respiratory: Negative for shortness of breath. Cardiovascular: Negative for chest pain. Gastrointestinal: Negative for nausea, vomiting, abdominal pain, diarrhea, constipation and blood in stool. Genitourinary: Negative for dysuria and difficulty urinating. Musculoskeletal: Negative for gait problem. Skin: Negative for rash and wound. Neurological: Negative for dizziness, weakness and light-headedness. Hematological: Does not bruise/bleed easily. Psychiatric/Behavioral: Negative for confusion. Past Medical History: Diagnosis Date CKD (chronic kidney disease) [place] [place] [place] Depression Diabetes [place] [place] GERD (gastroesophageal reflux disease) History of DVT (deep vein thrombosis) 2005;2007 HSV infection Hypertension Hypokalemia Hypothyroidism Insomnia Irritable bowel syndrome with constipation Migraines Osteopenia PAD [place]peripheral artery disease[place] [place] P[place]ipheral [place] [place] Past Surgical History: Procedure Laterality Date APPENDECTOMY 1988 BLADDER SUSPENSION 2005 SECTION 1984 COLONOSCOPY 1998 COLONOSCOPY 2002 ELBOW SURGERY 1991; 1999 Left elbow ulnar nerve decompression ESOPHAGOGASTRODUODENOSCOPY 1998 ESOPHAGOGASTRODUODENOSCOPY/COLONO SCOPY 2008 ESOPHAGOGASTRODUODENOSCOPY/COLONO SCOPY 03/2010 ESOPHAGOGASTRODUODENOSCOPY/COLONO SCOPY 2013 ESOPHAGOGASTRODUODENOSCOPY/COLONO SCOPY 2015 HAND SURGERY 03/2008 HAND SURGERY 2008 HERNIA REPAIR Right 03/09/2010 double HYSTERECTOMY 1989 partial INGUINAL HERNIA REPAIR Left 2006 LAPAROSCOPIC CHOLECYSTECTOMY 2004 OOPHORECTOMY Right 1997 TUBAL LIGATION 1985 UMBILICAL HERNIA REPAIR 2004 Allergies Allergen Reactions Penicillins Anaphylaxis Unknown reaction, so long ago Unknown reaction, so long ago Doxycycline Itching Oxycodone-Acetaminophen Nausea And Vomiting and Vomiting Erythromycin Other (See Comments) Rash to tongue Iodinated Contrast Media Sulfa (Sulfonamide Antibiotics) Adhesive Rash Adhesive Tape-Silicones Rash Cephalexin Other (See Comments) Unknown Reaction Erythromycin Base Other (See Comments) Iodides Hives Latex Other (See Comments) and Rash Morphine Nausea And Vomiting Quinolones Other (See Comments) and Rash Other reaction(s): Respiratory Problems IV form caused a red line up arm. IV form caused a red line up arm. Current Outpatient Medications: acyclovir (ZOVIRAX) 400 mg tablet, Take 1 tablet (400 mg total) by mouth 2 (two) times a day as needed., Disp: , Rfl: albuterol (PROVENTIL HFA;VENTOLIN HFA) 90 mcg/actuation inhaler, Inhale 2 puffs every 6 (six) hours as needed for wheezing or shortness of breath., Disp: , Rfl: amitriptyline (ELAVIL) 100 mg tablet, Take 1 tablet (100 mg total) by mouth once daily at bedtime., Disp: , Rfl: ARIPiprazole (ABILIFY) 10 mg tablet, Take 1 tablet (10 mg total) by mouth in the morning., Disp: , Rfl: atorvastatin (LIPITOR) 10 mg tablet, Take 1 tablet (10 mg total) by mouth in the morning., Disp: , Rfl: txjqakmevo-esrdzzuleakkp-lwdd (FIORICET, ESGIC) 50-300-40 mg per capsule, Take 1 capsule by mouth as needed., Disp: , Rfl: cholecalciferol, vitamin D3, 2,000 units tablet, Take 1 tablet (2,000 Units total) by mouth in the morning., Disp: , Rfl: cyanocobalamin (VITAMIN B-12) 1,000 mcg/mL injection, , Disp: , Rfl: cyclobenzaprine (FLEXERIL) 10 mg tablet, Take 1 tablet (10 mg total) by mouth 3 (three) times a day as needed., Disp: , Rfl: sjtwxugkbfm-zzwfqgfki-iaomejec (TRELEGY ELLIPTA) 200-62.5-25 mcg blister with device, Inhale 1 puff once daily., Disp: , Rfl: fremanezumab-vfrm (AJOVY AUTOINJECTOR) 225 mg/1.5 mL, Inject 1.5 mL (225 mg total) under the skin., Disp: , Rfl: HYDROcodone-acetaminophen (NORCO) 5-325 mg per tablet, as needed., Disp: , Rfl: hydrOXYzine (ATARAX) 25 mg tablet, Take 1 tablet (25 mg total) by mouth 3 (three) times a day as needed for itching., Disp: , Rfl: levocetirizine (XYZAL) 5 mg tablet, Take 1 tablet (5 mg total) by mouth every evening., Disp: , Rfl: levothyroxine (SYNTHROID, LEVOTHROID) 125 MCG tablet, Take 1 tablet (125 mcg total) by mouth in the morning., Disp: , Rfl: linaCLOtide (LINZESS) 72 mcg capsule, Take 1 capsule (72 mcg total) by mouth every morning before breakfast., Disp: , Rfl: lisinopriL (PRINIVIL,ZESTRIL) 5 mg tablet, Take 1 tablet (5 mg total) by mouth in the morning., Disp: , Rfl: magnesium oxide 400 mg magnesium tablet, Take 400 mg by mouth once daily., Disp: , Rfl: melatonin 10 mg tablet, Take 10 mg by mouth nightly., Disp: , Rfl: montelukast (SINGULAIR) 10 mg tablet, Take 1 tablet (10 mg total) by mouth in the morning., Disp: , Rfl: NIFEdipine (PROCARDIA) 10 mg capsule, Take 1 capsule (10 mg total) by mouth once daily., Disp: , Rfl: omeprazole (PriLOSEC) 20 mg capsule, Take 2 capsules (40 mg total) by mouth in the morning., Disp: , Rfl: potassium chloride (KLOR-CON M) 20 MEQ CR tablet, Take 1 tablet (20 mEq total) by mouth in the morning and 1 tablet (20 mEq total) before bedtime., Disp: , Rfl: tiZANidine (ZANAFLEX) 4 mg tablet, Take 1 tablet (4 mg total) by mouth every 6 (six) hours as needed for muscle spasms., Disp: , Rfl: VIIBRYD 40 mg tablet, Take 1 tablet (40 mg total) by mouth daily with breakfast., Disp: , Rfl: vit A/vit C/vit E/zinc/copper (PRESERVISION AREDS ORAL), Take by mouth daily., Disp: , Rfl: warfarin (COUMADIN) 2 mg tablet, Take 1 tablet (2 mg total) by mouth., Disp: , Rfl: zinc gluconate 50 mg tablet, Take 1 tablet (50 mg total) by mouth in the morning., Disp: , Rfl: Social History Socioeconomic History Marital status: Spouse name: Not on file Number of children: Not on file Years of education: Not on file Highest education level: Not on file Occupational History Not on file Tobacco Use Smoking status: Former Types: Cigarettes Smokeless tobacco: Never Vaping Use Vaping status: Never Used Substance and Sexual Activity Alcohol use: Not Currently Drug use: Not Currently Sexual activity: Defer Other Topics Concern Not on file Social History Narrative Not on file Social Determinants of Health Financial Resource Strain: Not on file Food Insecurity: Not on file Transportation Needs: Not on file Physical Activity: Not on file Stress: Not on file Social Connections: Not on file Interpersonal Safety: Not on file Housing Instability: Not on file Family History Problem Relation Age of Onset Diabetes Mother Heart disease Mother Cancer Mother Breast cancer Mother Lung cancer Mother Pancreatic cancer Mother Hypertension Father Alcohol abuse Father Cerebral aneurysm Father Objective Physical Exam Constitutional: General: She is not in acute distress. Appearance: Normal appearance. She is not ill-appearing. HENT: Head: Normocephalic and atraumatic. Mouth/Throat: Mouth: Mucous membranes are moist. Eyes: Pupils: Pupils are equal, round, and reactive to light. Cardiovascular: Rate and Rhythm: Normal rate and regular rhythm. Pulmonary: Effort: Pulmonary effort is normal. No respiratory distress. Abdominal: General: Bowel sounds are normal. There is no distension. Palpations: Abdomen is soft. Musculoskeletal: General: Normal range of motion. Skin: General: Skin is warm and dry. Neurological: Mental Status: She is alert and oriented to person, place, and time. Mental status is at baseline. Vital Signs: Blood pressure 141/70, pulse 97, height 162.6 cm (5' 4 ), weight 71 kg (156 lb 9.6 oz). Respiratory Source: No data recorded Admission Weight: Weight: 71 kg (156 lb 9.6 oz) Labs No results found for: WBC , HGB , HCT , MCV , PLT No results found for: GLU , CALCIUM , NA , K , CO2 , CL , BUN , CREATININE No results found for: AMYLASE No results found for: LIPASE No results found for: ALT , AST , GGT , ALKPHOS , LABBILI No results found for: INR , PROTIME Assessment Madan Perry is a 64 y.o.female with dysphagia. Plan EGD with possible biopsy. Risks, benefits, and alternatives discussed with patient. Patient verbalizes understanding and wishes to proceed. Evaluation included: Preparing to see the patient (e.g., review of tests) Obtaining and/or reviewing separately obtained history Performing a medically appropriate examination and/or evaluation Counseling and educating the patient/family/caregiver Referring and communicating with other health child daycare worker Dysphagia, unspecified type [R13.10] AMITA SIMPSON, FIRE APPARATUS SPRINKLER INSPECTOR-FLIGHT OPERATION COORDINATOR [facility] [place] This note was created with the assistance of a speech recognition program. While intending to generate a timely document that accurately reflects the content of the visit, no guarantee can be provided that every grammatical or spelling mistake has been or will be identified or corrected. Thank you for your understanding. SHASTA Taylor 02/20/24 1058 documented in this encounter [facility] 02-06-2024 Miscellaneous Notes Called Newton regarding the dysphagia referral that our office received from Dr. Lake, I left a message on her voicemail to call the office back to schedule an appointment. Newton called the office back and we scheduled her an appointment on 02/20/2024. documented in this encounter [facility] 02-06-2024 Telephone encounter Note Called Newton regarding the dysphagia referral that our office received from Dr. Lake, I left a message on her voicemail to call the office back to schedule an appointment. [facility] 02-06-2024 Telephone encounter Note Newton called the office back and we scheduled her an appointment on 02/20/2024. [facility] 08-25-2023 History of Present illness Narrative CC: Left hand and wrist pain Follow up after MRI done at [facility]. Patient Office Note or Post OP Note Name:Madan Perry Date: 08/25/2023 CC: left wrist pain at [facility] area No chief complaint on file. [...] this patient. Aliza Aguilar MD Injection Procedure.formerly [facility], [facility] 08/25/2023 [id number] Madan M Dionna The patient requested an [...] a dressing applied. documented in this encounter [facility] 06-16-2023 Note Addended by: ALIZA AGUILAR on: 06/16/2023 11:34 AM Modules accepted: Orders [facility] 06-16-2023 Miscellaneous Notes Addended by: ALIZA AGUILAR on: 06/16/2023 11:34 AM Modules accepted: Orders documented in this encounter [facility] 06-16-2023 History of Present illness Narrative Patient Office Note or Post [...] continues on coumadin. documented in this encounter [facility] 05-09-2022 Evaluation note Encounter Date Diagnosis [...] Xray that was ordered outpatient by PCP [facility] Other 08-10-2022 NotePROCEDURE: XR FOOT RT MIN 3 VIEWS COMPARISON: None. HISTORY: Pain in right foot FINDINGS: BONES:No fracture, acute abnormality, or significant arthropathy. Mild enthesopathic spurring of the calcaneus at the Achilles insertion SOFT TISSUES:Negative. No visible soft tissue swelling. EFFUSION:None visible. OTHER: Negative. IMPRESSION: No acute abnormality Electronically authenticated by: MARTINEZ HARVEY Date: 2022-05-04 16:22[facility]10-27-2021 Evaluation note* Encounter Date Diagnosis Assessment Notes Treatment Notes Treatment Clinical Notes Jun, Swelling of left elbow (ICD-10 - M25.422) Jun, Other Patient refe rred to the ER due to swelling, ecchymosis, pain of her left elbow with no known injury. It is felt the patient needs blood work to evaluate [facility] Other 09-28-2021 Evaluation note* Encounter Date Diagnosis Assessment Notes Treatment Notes Treatment Clinical Notes May, Bee sting, undetermined intent, initial encounter (ICD-10 - T63.444A) May continue Xyzal and Benadryl as directed. [facility] Other Evaluation note* Diagnosis Left hand pain- Primary Pain in limb Left hand pain Pain in limb [facility] Left hand pain Pain in limb [facility] Work Phone[facility]* Diagnosis Hand arthritis- Primary Unspecified arthropathy, hand [facility]* Diagnosis Onset Date Resolution Status Thoracic back pain acute [facility] Work Phone: evaluation note* Diagnosis Dermatofibroma- Primary Benign neoplasm of skin, site unspecified Angioma of skin Lentigines Garcia angioma Other nonthrombocytopenic purpura (CMS/HCC) documented in this encounter [facility]* Diagnosis Dysphagia, unspecified type [facility] Diagnosis Dysphagia, unspecified type- Primary [facility] Diagnosis Varicose veins of both legs with edema- Primary [facility] N[facility] - Reported* Type Description Date [...] second t roseann Hospitalization History see above [facility] Other Hospital Discharge instructionsAmbulatory Orders* Referral to Speech/PT/OT (PT/OT/SP) Location: None [facility] Work Phone: InstructionsNot on filedocumented in this encounter [facility] filedocumented in this encounter [facility] filedocumented in this encounter [facility] on filedocumented in this encounter [facility] filedocumented in this encounter [facility] filedocumented in this [facility] Summary Purpose Family History Relationship Condition Age [...] Diagnoses Left hand pain Aliza Aguilar MD [address] [place] [address] Referral ID Status Reason Start Date Expiration Date Visits Requested Visits Authorized [id number] Authorized Patient Preference 06/16/2023 06/16/2024 3 3 Comments Near home, [place], [place] Specialty Diagnoses / Procedures Referred By Randi cardona Referred To Contact Radiology Diagnoses Left hand pain Procedures MR WRIST LEFT W/O Aliza Aguilar MD [address] [place] [address] [facility] MRI [address] [place] [address] Referral ID Status Reason Start Date Expiration Date V isits Requested Visits Authorized [id number] Authorized 06/16/2023 06/15/2024 1 1 Specialty Diagnoses / Procedures Referred By Randi t Referred To Contact Radiology Diagnoses Left hand pain Procedures XR HAND LEFT [address] [facility] [address] [place], [place] [id number] [facility] DIAGNOSTIC RADIOLOGY [address] [place] [id number] Referral ID Status Reason Start Date Expiration Date Visits Re quested Visits Authorized [id number] Closed 06/16/2023 06/15/2024 1 1 Chief Complaint and Reason for Visit Chief Complaint median nerve karel krista Chief Complaint Unknown Chief Complaint Unknown DISC DEGENERATION-THORACIC AREA Chief Complaint DISC DEGENERATION-TH ORACIC AREA review MRI, F/u after PT Reason for Visit Thoracic back pain Additional Source Comments INFORMATION SOURCE (unrecogn ized section and content) DATE CREATED AUTHOR 05/27/2021 [facility] DATE CREATED AUTHOR AUTHOR'S ORGANIZ ATION 03/03/2023 [facility] DATE CREATED AUTHOR AUTHOR'S ORGANIZ ATION 08/28/2023 [facility] DATE CREATED AUTHOR AUTHOR'S ORGANIZ ATION 02/29/2024 [facility] DATE CREATED AUTHOR AUTHOR'S ORGANIZ ATION 03/16/2024 [facility] DATE CREATED AUTHOR AUTHOR'S ORGANIZ ATION 05/24/2024 [facility] DATE CREATED AUTHOR AUTHOR'S ORGANIZ ATION 06/13/2024 [facility] DATE CREATED AUTHOR AUTHOR'S ORGANIZ ATION 10/03/2024 [facility] REASON FOR VISIT (unrecogniz ed section and content) Reason Comments Hand/finger symptoms Specialty Diagnoses / Procedures Referred By Avelac t Referred To Contact Radiology Diagnoses Left hand pain Procedures XR HAND LEFT 3 VIEWS [facility] [address] [place], [place] [phone] [facility] DI[facility]IC [facility]IOLOGY [address] [place] [address] Referral ID Status Reason Start Date Expiration Date Visits Re quested Visits Authorized [id number] Closed 06/16/2023 06/15/2024 1 1 Reason Comments Hand/finger symptoms Reason Comments Skin Check Suspicious Skin Lesion Reason Comments Other Dysphagia, referred by Dr. Lake Reason Comments Pain and swelling of lower extremity, un specified laterality 1 year follow up thorascic Back Pain Care Teams (unrecognized sec tion and content) Cloud Operations Engineer Relationship Specialty Start Date End Date Yesy Covarrubias OT [address] [place] [address] [place] [address] Occupational Therapist Occupational Therapy 06/30/20 Aliza Aguilar MD [address] [place] [address] Physician Orthopaedic Hand Service 06/30/20 Cloud Operations Engineer Relationship Specialty Start Date End Date Yesy Covarrubias OT [address] [address] Occupational Therapist Occupational Therapy 06/30/20 Aliza Aguilar MD [address] [place] [address] Physician Orthopaedic Hand Service 06/30/20 Cloud Operations Engineer Relationship Specialty Start Date End Date Yesy Covarrubias OT [address] [place] [address] Occupational Therapist Occupational Therapy 06/30/20 Aliza Aguilar MD [address] [place] [address] Physician Orthopaedic Hand Service 06/30/20 Team Status: Active Member Role Status Dates Tank Lake DO Primary Care Provider Active Team Status: Inactive Member Role Status Dates Tank Lake DO Primary Care Provider Active Aliza Aguilar Attending Provider Active Cloud Operations Engineer Relationship Specialty Start Date End Date Yesy Covarrubias OT [address] [place] [address] Occupational Therapist Occupational Therapy 06/30/20 Aliza Aguilar MD [address] [place] [address] Physician Orthopaedic Hand Service 06/30/20 Cloud Operations Engineer Relationship Specialty Start Date End Date Yesy Covarrubias OT [address] [place] [place] [address] Occupational Therapist Occupational Therapy 06/30/20 Aliza Aguilar MD [address] [place] [phone] Physician Orthopaedic Hand Service 06/30/20 Team Status: [...] June 27, 2024 End: June 27, 2024 Cloud Operations Engineer Relationship Specialty Start Date End Date Tank Lake DO [address] [place] [address] PCP - General Family Medicine 03/30/20 Cloud Operations Engineer Relationship Specialty Start Date End Date Tank Lake DO [address] [place] [address] PCP - General Family Medicine 03/30/20 Cloud Operations Engineer Relationship Specialty Start Date End Date Tank Lake DO [address] [place] [address] PCP - General Family Medicine 03/30/20 Cloud Operations Engineer Relationship Specialty Start Date End Date Tank Lake DO [address] [place] [address] PCP - General Family Medicine 03/30/20 Cloud Operations Engineer Relationship Specialty Start Date End Date Tank Lake DO [address] [place] [address] PCP - General Family Medicine 03/30/20 Cloud Operations Engineer Relationship Specialty Start Date End Date Tank Lake DO [address] [place] [address] PCP - General Family Medicine 03/30/20 Goals (unrecognized section and content) Goals may [...] BE BASED ON THE PRIMARY CLINICAL RECORDS. [employer] provides no warranty or guarantee of the accuracy or completeness of information in this document.
--- NOTE | 2024-12-19 01:22 | PC.NURSE ---
this patient complains of a nose bleed(right) onset 2 hours ago. this patient had a coughing episode when this nose bleed started
--- NOTE | 2024-12-19 01:24 | ED_ITS ---
HPI - Epistaxis General Chief Complaint: Epistaxis Stated Complaint: NOSEBLEED Time Seen by Provider: 12/19/24 01:21 Source: patient Mode of arrival: walk-in Limitations: no limitations History of Present Illness HPI Narrative: This 64-year-old female who is on Coumadin due to her history of blood clots presents for evaluation of a nosebleed. The patient states her nose has been very dry recently and she had a coughing spell tonight and started bleeding from the right nostril. She was seen earlier today and her INR was 3.5. She states her potassium was 2.7 at that time and she is scheduled for potassium infusion later today. She denies any headache, she denies any shortness of breath. She has no chest pain or dizziness. Related Data Home Medications ?Medication ?Instructions ?Recorded ?Confirmed acyclovir 400 mg tablet 400 mg PO DAILY 06/16/23 05/13/24 amitriptyline 100 mg tablet 100 mg PO BEDTIME 06/16/23 05/13/24 aripiprazole 10 mg tablet 10 mg PO BEDTIME 06/16/23 05/13/24 atorvastatin 10 mg tablet 10 mg PO QDAY 06/16/23 05/13/24 biotin 10,000 mcg-keratin 100 mg 1 tab PO QDAY 06/16/23 05/13/24 tablet (Biotin Plus Keratin) drqvjmxzds-dnvlxgehasxlu-cdmbrdga 1 cap PO Q6H PRN pain 06/16/23 05/13/24 50 mg-300 mg-40 mg capsule cholecalciferol (vitamin D3) 50 50 mcg PO DAILY 06/16/23 05/13/24 mcg (2,000 unit) capsule (Vitamin D3) cyanocobalamin (vitamin B-12) 1,000 mcg IM .monthly 06/16/23 05/13/24 1,000 mcg/mL injection solution fremanezumab-vfrm 225 mg/1.5 mL 225 mg subcut .monthly 06/16/23 05/13/24 subcutaneous auto-injector (Ajovy) hydrochlorothiazide 12.5 mg tablet 12.5 mg PO QDAY 06/16/23 05/13/24 hydrocodone 5 mg-acetaminophen 325 1 tab PO TID PRN pain 06/16/23 05/02/24 mg tablet hydroxyzine HCl 25 mg tablet 25 mg PO BEDTIME 06/16/23 05/13/24 levothyroxine 125 mcg tablet 125 mcg PO .every morning 06/16/23 05/13/24 linaclotide 72 mcg capsule 145 mcg PO QDAY 06/16/23 05/13/24 (Linzess) lisinopril 5 mg tablet 5 mg PO QDAY 06/16/23 05/13/24 melatonin 10 mg capsule 10 mg PO DAILY 06/16/23 05/13/24 montelukast 10 mg tablet 10 mg PO QDAY 06/16/23 05/13/24 omeprazole 40 mg capsule,delayed 40 mg PO BID 06/16/23 05/13/24 release potassium chloride 10 mEq 20 meq PO BID 06/16/23 05/13/24 tablet,extended release(part/cryst) vilazodone 40 mg tablet 40 mg PO QDAY 06/16/23 05/13/24 vit C 250 mg-vit E 90 mg-zinc 40 1 tab PO BID 06/16/23 05/13/24 mg-copper 1 fg-vuyoyd-fqdhyr capsule (PreserVision AREDS-2) warfarin 1 mg tablet 1 mg PO .qtuesday 06/16/23 05/13/24 warfarin 2 mg tablet 2 mg PO QDAY 06/16/23 05/13/24 aspirin 81 mg tablet,delayed 81 mg PO DAILY 07/17/23 05/13/24 release (Adult Aspirin Regimen) meclizine 12.5 mg tablet 12.5 mg PO BID PRN dizziness 07/17/23 05/13/24 ondansetron HCl 4 mg tablet 4 mg PO Q12H PRN nausea and 07/17/23 05/13/24 vomiting fluticasone fur. 200 mcg-umeclid 1 inh inhalation Q24H 02/23/24 05/13/24 62.5 mcg-vilant 25 mcg inhalat.powder (Trelegy Ellipta) tizanidine 4 mg tablet 4 mg PO TID 02/23/24 05/13/24 Previous Rx's ?Medication ?Instructions ?Recorded sucralfate 1 gram tablet 1 g PO Q6H 4 weeks #112 tabs 02/28/24 lidocaine 5 % topical patch 1 patch topical Q24H #30 ea 02/29/24 buprenorphine 5 mcg/hour weekly 1 patch transdermal Q7D #4 ea 05/20/24 transdermal patch (Butrans) Allergies Allergy/AdvReac Type Severity Reaction Status Date / Time Iodinated Contrast Media Allergy Unknown Verified 12/19/24 01:20 latex Allergy Unknown Verified 12/19/24 01:20 erythromycin base AdvReac Severe Unknown Verified 12/19/24 01:20 Penicillins AdvReac Severe Anaphylaxis Verified 12/19/24 01:20 cephalexin (From Keflex) AdvReac Intermediate Hives Verified 12/19/24 01:20 doxycycline AdvReac Intermediate Hives Verified 12/19/24 01:20 iodine AdvReac Intermediate Hives Verified 12/19/24 01:20 morphine AdvReac Intermediate Vomiting Verified 12/19/24 01:20 oxycodone (From Percocet) AdvReac Intermediate Vomiting Verified 12/19/24 01:20 procaine (From Novocain) AdvReac Intermediate Migraine Verified 12/19/24 01:20 ciprofloxacin (From Cipro) AdvReac Mild Hives Verified 12/19/24 01:20 Review of Systems ROS Status of ROS 10 or more systems reviewed and unremark able except as noted in history and below [facility] Medical History (Updated 12/19/24 @ 02:11 by Lulu Krishnamurthy MD) Anemia ?D64.9 - Anemia, unspecified (ICD-10) History of blood transfusion (1997) ?Z92.89 - Personal history of other medical treatment (ICD-10) Panic attacks ?F41.0 - Panic disorder [episodic paroxysmal anxiety] (ICD-10) Depression ?F32.A - Depression, unspecified (ICD-10) Anxiety ?F41.9 - Anxiety disorder, unspecified (ICD-10) COVID-19 ?U07.1 - COVID-19 (ICD-10) Chronic obstructive pulmonary disease ?J44.9 - Chronic obstructive pulmonary disease, unspecified (ICD-10) Migraine ?G43.909 - Migraine, unspecified, not intractable, without status migrainosus (ICD-10) Urinary tract infection ?N39.0 - Urinary tract infection, site not specified (ICD-10) Presence of vena cava filter ?Z95.828 - Presence of other vascular implants and grafts (ICD-10) Hypertension ?I10 - Essential (primary) hypertension (ICD-10) Osteoarthritis ?M19.90 - Unspecified osteoarthritis, unspecified site (ICD-10) Hypothyroid ?E03.9 - Hypothyroidism, unspecified (ICD-10) Stage 3 chronic kidney disease ?N18.30 - Chronic kidney disease, stage 3 unspecified (ICD-10) Colitis ?K52.9 - Noninfective gastroenteritis and colitis, unspecified (ICD-10) DVT (deep venous thrombosis) ?I82.409 - Acute embolism and thrombosis of unspecified deep veins of unspecified lower extremity (ICD-10) Surgical History S/P epidural steroid injection ?Z92.241 - Personal history of systemic steroid therapy (ICD-10) H/O hand surgery ?Z98.890 - Other specified postprocedural states (ICD-10) History of carpal tunnel release ?Z98.890 - Other specified postprocedural states (ICD-10) History of bladder suspension procedure ?Z98.890 - Other specified postprocedural states (ICD-10) ?Z87.448 - Personal history of other diseases of urinary system (ICD-10) History of hernia repair ?Z98.890 - Other specified postprocedural states (ICD-10) ?Z87.19 - Personal history of other diseases of the digestive system (ICD-10) Hx of cholecystectomy ?Z90.49 - Acquired absence of other specified parts of digestive tract (ICD- 10) H/O colonoscopy ?Z98.890 - Other specified postprocedural states (ICD-10) History of esophagogastroduodenoscopy (EGD) ?Z98.890 - Other specified postprocedural states (ICD-10) History of decompression of ulnar nerve ?Z98.890 - Other specified postprocedural states (ICD-10) History of appendectomy ?Z90.49 - Acquired absence of other specified parts of digestive tract (ICD- 10) History of hysterectomy ?Z90.710 - Acquired absence of both cervix and uterus (ICD-10) Delivery by section History of laparoscopy ?Z98.890 - Other specified postprocedural states (ICD-10) Family History Other Cancer Family history of aneurysm Family history of diabetes mellitus Family history of heart disease Family history of hypertension Social History Within the past year, how often did you have a drink containing alcohol: never Score interpretation: A score less than 3 is consistent with normal alcohol consumption. Smoking status: Former smoker Non-prescribed substance use: denies use Highest level of school completed/degree received: some college, no degree Little interest or pleasure in doing things: not at all Feeling down, depressed, or hopeless: not at all Exam Narrative Exam Narrative: Vital signs and Nursing Notes reviewed: Patient is afebrile with a normal pulse, normal blood pressure, she is not hypoxic with pulse ox of 99% on room air General: Awake, alert, oriented, no acute distress, lying comfortably on the stretcher HEENT: Normocephalic atraumatic, mucous membranes are moist and pink, eyes are clear, normal conjunctiva, vision is grossly intact, there is a small amount of venous bleeding in the right nostril with a clot that the patient was able to dislodge with gentle blowing. There is some mild venous bleeding at the anterior nasal plexus Chest: Lungs are clear to auscultation with good air entry, there is no wheezing rhonchi or rales appreciated no accessory muscle use, patient is speaking in complete sentences-no chest wall tenderness to palpation CVS: Regular rate and rhythm S1-S2, no murmurs rubs or gallops, pulses are brisk and equal bilaterally ABD: Soft, nondistended, nontender, no rebound guarding or rigidity, bowel sounds are normal, no pulsatile masses appreciated Extremities: Moving all extremities, no lower extremity tenderness or swelling noted, negative Homans' sign, pulses are brisk and equal bilaterally Skin: Normal in appearance without rash,pallor, petechiae or purpura Neuro: No focal deficits Constitutional Vital Signs, click to edit/add: Last Vital Signs Temp 97.3 F L 12/19/24 01:18 Pulse 80 12/19/24 01:18 Resp 16 12/19/24 01:18 BP 135/82 12/19/24 01:18 Pulse Ox 99 12/19/24 01:18 O2 Del Method Room Air 12/19/24 01:18 Course Vital Signs Vital signs: Vital Signs Temperature 97.3 F L 12/19/24 01:18 Pulse Rate 80 12/19/24 01:18 Respiratory Rate 16 12/19/24 01:18 Blood Pressure 135/82 12/19/24 01:18 Pulse Oximetry 99 12/19/24 01:18 Oxygen Delivery Method Room Air 12/19/24 01:18 Temperature 97.3 F L 12/19/24 01:18 Pulse Rate 80 12/19/24 01:18 Respiratory Rate 16 12/19/24 01:18 Blood Pressure 135/82 12/19/24 01:18 Pulse Oximetry 99 12/19/24 01:18 Oxygen Delivery Method Room Air 12/19/24 01:18 Discharge Plan Discharge Chief Complaint: Epistaxis Clinical Impression: Epistaxis Patient Disposition: Home, Self-Care Time of Disposition Decision: 02:10 Condition: Good Prescriptions / Home Meds: No Action warfarin 2 mg tablet 2 mg PO QDAY Rx Instructions: 2mg everyday, 3mg every Monday warfarin 1 mg tablet 1 mg PO .qt Rx Instructions: Pt takes 1mg with 2mg for total of 3mg every Monday acyclovir 400 mg tablet 400 mg PO DAILY amitriptyline 100 mg tablet 100 mg PO BEDTIME aripiprazole 10 mg tablet 10 mg PO BEDTIME atorvastatin 10 mg tablet 10 mg PO QDAY ywerqwwhwp-zyhnbwtwggpzj-dmhu 50-300-40 mg capsule 1 cap PO Q6H PRN (Reason: pain) cyanocobalamin (vitamin B-12) 1,000 mcg/mL solution 1,000 mcg IM .monthly Ajovy Autoinjector 225 mg/1.5 mL auto-injector 225 mg SUBCUT .monthly hydrochlorothiazide 12.5 mg tablet 12.5 mg PO QDAY hydrocodone-acetaminophen 5-325 mg tablet 1 tab PO TID PRN (Reason: pain) hydroxyzine HCl 25 mg tablet 25 mg PO BEDTIME levothyroxine 125 mcg tablet 125 mcg PO .every morning Linzess 72 mcg capsule 145 mcg PO QDAY Patient Comments: on empty stomach before a meal lisinopril 5 mg tablet 5 mg PO QDAY montelukast 10 mg tablet 10 mg PO QDAY omeprazole 40 mg capsule,delayed release(DR/EC) 40 mg PO BID potassium chloride 10 mEq tablet,ER particles/crystals 20 meq PO BID vilazodone 40 mg tablet 40 mg PO QDAY Biotin Plus Keratin 10,000-100 mcg-mg tablet 1 tab PO QDAY Patient Comments: with supper cholecalciferol (vitamin D3) [Vitamin D3] 50 mcg (2,000 unit) capsule 50 mcg PO DAILY melatonin 10 mg capsule 10 mg PO DAILY PreserVision AREDS-2 250-90-40-1 mg capsule 1 tab PO BID Trelegy Ellipta 200-62.5-25 mcg blister with device 1 inh INHALATION Q24H tizanidine 4 mg tablet 4 mg PO TID sucralfate 1 gram tablet 1 g PO Q6H 28 Days Qty: 112 0RF aspirin [Adult Aspirin Regimen] 81 mg tablet,delayed release (DR/EC) 81 mg PO DAILY ondansetron HCl 4 mg tablet 4 mg PO Q12H PRN (Reason: nausea and vomiting) meclizine 12.5 mg tablet 12.5 mg PO BID PRN (Reason: dizziness) lidocaine 5 % adhesive patch,medicated 1 patch topical Q24H Qty: 30 2RF Rx Instructions: leave on most painful area for up to 12 hrs daily buprenorphine [Butrans] 5 mcg/hour patch weekly 1 patch transdermal Q7D Qty: 4 0RF Print Language: Slovak Instructions: Nosebleed (ED) Additional Instructions: Leave nasal packing in place for 24 hours. Use Afrin to keep the packing moist. Gently remove the nasal packing after 24 hours. Use nasal clip as needed for recurrent bleeding. Return to the emergency department as needed. I would recommend holding your Coumadin dose tomorrow. Referrals: [place] DO [Primary Care Provider] - 1 week Procedures ED Procedure Instructions Procedures Procedures: Epistaxis management; Afrin was instilled into the right nostril and the patient was encouraged to gently blow her nose to clear any clots. After the clots had been cleared a Merocel dressing was cut down to size and inserted into her right nostril. Patient will Afrin was instilled into the Merocel to expand it. Initially there was bleeding around the packing but after period of time and additional instillations of Afrin the bleeding ceased.
[2024-12-19] MEDS: OXYMETAZOLINE HCL 0.05% NASAL SPRAY 2 SPRAY NS (01:37)
--- NOTE | 2024-12-19 02:15 | PC.NURSE ---
i gave this patient verbal and written discharge orders and this patient voices yes to understanding these. at time of discharge this patient voices no concerns and shows no signs of distress
== END 2024-12-19 02:16 | disposition home or self-care (01) ==
PROVIDERS: Emergency Provider Emergency Medicine; PCP Family Medicine
DX: R04.0 Epistaxis (principal); Z79.01 Long term (current) use of anticoagulants; Z90.49 Acquired absence of other specified parts of digestive tract; Z90.710 Acquired absence of both cervix and uterus; Z87.891 Personal history of nicotine dependence; D50.9 Iron deficiency anemia, unspecified; K90.9 Intestinal malabsorption, unspecified; D64.9 Anemia, unspecified
CPT/HCPCS: 30901; 96365; 96366; 99282; J3480

== ENCOUNTER 2024-12-19 07:41 | Outpatient (RCR) | payer BC, MEDICARE, SELFPAY ==
[2024-12-19 10:58] VITALS: BP 135/84; PULSE 106; TEMP 36.2; O2SAT 95
[2024-12-19] MEDS: POTASSIUM CHLORIDE 40 MEQ in 0.9 % SODIUM CHLORIDE 500 ML 130 MEQ IV (11:11)
--- NOTE | 2024-12-19 14:13 | PC.NURSE ---
Pt. awake reading a book. IV KCL cont. to infuse without c/o. IV site remains clear. Denies needs.
== END 2024-12-20 08:03 | disposition home or self-care (01) ==
LOC: HEMC 07:41
PROVIDERS: PCP Family Medicine; Visit Provider Internal Medicine Hematology & Oncology
DX: D50.9 Iron deficiency anemia, unspecified (principal); K90.9 Intestinal malabsorption, unspecified; D64.9 Anemia, unspecified
CPT/HCPCS: 96365; 96366; J3480

== ENCOUNTER 2024-12-24 02:19 | Outpatient (RCR) | payer BC, MEDICARE, SELFPAY | END 2025-01-22 14:28 | disposition home or self-care (01) | LOC: MM 02:19 | PROVIDERS: PCP Family Medicine; Visit Provider Internal Medicine | DX: Z51.81 Encounter for therapeutic drug level monitoring (principal); Z79.01 Long term (current) use of anticoagulants | CPT/HCPCS: 85610; G0463 ==

== ENCOUNTER 2024-12-24 07:37 | Outpatient (RCR) | payer BC, MEDICARE, SELFPAY ==
--- OUTSIDE RECORDS SUMMARY | 2024-12-24 07:41 | XMS_ITS | CCD ---
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 Unavailable [phone] Tank Primary Care Provider Aliza [...] LAKE, TANK A Primary Care Unavailable STEVEN TAVERA F Attending Unavailable LAKE, TANK A [...] Allergy 12-22-19 06 Nausea And Vomiting, Vomiting Polyplus-transfection Other (3 sources) Adhesive Tape Propensity to adverse reactions rash Polyplus-transfection Other (15 sources) Cephalexin; Translations: [CEPHALEXIN] Drug Allergy 12-22-19 06 anaphylaxis, Unknown, Other (See Comments) [facility] (20 sources) Erythromycin; Translations: [ERYTHROMYCIN] Drug Allergy 12-22-19 06 Other, Unknown, Other (See Comments) [facility] (8 sources) Iodine; Translations: [iodine] Drug Allergy 01-31-20 13 rash [facility] (13 sources) Latex; Translations: [LATEX] Propensity to adverse reactions 12-22-19 06 rash, Other (See Comments) [facility] (7 sources) Penicillin G Benzathine; Translations: [penicillin G benzathine] Drug allergy 12-11-19 23 anaphylaxis [facility] (3 sources) Procaine Drug Allergy headaches [facility] [employer] Other (2 sources) Cephalexin; Translations: [Keflex] Drug Allergy 01-31-20 13 anaphylaxis [facility] (1 source) Novocain Drug allergy Unknown [facility] [employer] Other (11 sources) Acetaminophen; Translations: [ACETAMINOPHEN] Drug [...] adverse reactions to drug 12-22-19 06 Rash [facility] (6 sources) Bandage Tape; Translations: [BANDAGE TAPE] Propensity to adverse reactions 09-03-20 13 Rash [facility] (14 sources) Erythromycin Base; Translations: [ERYTHROMYCIN BASE] Propensity to adverse reactions to drug 01-24-20 20 Other [facility] (16 [facility]) Iodides; Translations: [IODIDES] Propensity to adverse reactions to drug 10-31-19 14 Hives [facility] (6 sources) Other (Review Comments!); Translations: [OTHER (REVIEW COMMENTS!)] Propensity to adverse reactions to drug 07-22-20 19 Agitation [facility] Work Phone: (1 source) Ciprofloxacin Drug Allergy [facility] (1 source) Iodine (And Iodine Containting Drugs) Drug allergy (disorder) 01-31-20 13 [facility] (1 source) Latex Drug allergy (disorder) 01-31-20 13 [facility] (5 sources) Morphine; Translations: [MORPHINE] Drug Allergy 10-21-19 14 vomiting [facility] (1 source) Penicillins Drug allergy (disorder) 01-31-20 13 [facility] (1 source) Sulfonamides (Antibiotic) Drug allergy (disorder) 01-31-20 13 [facility] (1 source) Darvocet-N 100 Drug allergy (disorder) 01-31-20 13 [facility] (1 source) E.E.S. Drug allergy (disorder) 01-31-20 13 [facility] (4 sources) Adhesive Tape; Translations: [adhesive tape] Allergy to substance 12-11-19 [facility] (7 sources) oxyCODONE; Translations: [oxycodone] Drug Allergy 12-11-19 Unknown [facility] (4 sources) Procaine; Translations: [procaine] Drug Allergy 12-11-19 headaches [facility] (1 source) Cephalexin Drug Allergy 12-11-19 [facility] (1 source) Doxycycline Drug Allergy 12-11-19 [facility] (1 source) Latex Drug allergy (disorder) 12-11-19 [facility] (1 source) Morphine Drug Allergy 12-11-19 [facility] (7 sources) Adhesive agent; Translations: [ADHESIVE] [...] Dressing Adhesive Drug Intolerance 09-03-20 13 Rash [facility] (6 sources) Penicillins Propensity to [...] 12:00am Start: 03-18-2020 take 1 capsule by [facility] once as needed enlkmhixbq-cuhhkkxyhurqk-nllx (FIORICET, ESGIC) 50-300-40 mg per capsule Take 1 capsule by mouth as needed. 03/18/2020 Active Start: 03-18-2020 take 1 capsule by mo uth three times daily as needed rmvazvlcdd-oqzfeqsppfcgp-qnoy (FIORICET, ESGIC) 50-300-40 mg per capsule Take 1 capsule by mouth 3 (three) times a day as needed. 03/18/2020 Active Butalbital-APAP- Caffeine 50-300-40 MG CAPS Take by mouth daily as needed. 0 Active take 1 capsule by mo uth every four hours Lfiaggrsnp-NVTY-Ywxtlkfe 50-325-40 MG 1 capsule as needed Orally [...] Active HYDROcodone-Acet aminophen 7.5-300 MG Orally Not-Taking [place] Active acyclovir 400 mg oral tablet (16 [...] 0 Active Aimovig (3 sources) Aimovig Active [id number] 200 actuat albuterol 0.09 mg/actuat metered dose [...] daily. 0 Active Flovent Diskus A ctive Xjhvfdeqjcl-Plnayfsuz-Mmlscq er (2 sources) Anticholinergic, Corticosteroid, beta2-Adrenergic Agonist Start: 05-28-2024 Ksouooestta-Fyacwafiw-Fsfcfo er (Trelegy Ellipta) 100-62.5-25 mcg blister with device Active 1 INH INHALATION Daily May 28, 2024 12:00am jfzqmdwrrhb-jlecehrgy-smhyjd er (TRELEGY ELLIPTA) 200-62.5-25 mcg blister with device (5 sources) t a k e 1 p u f f ( s ) b y i n h a l a t i o n o n c e d a i l y ymzrblejdtu-gskianhhg-pfgkvkwt (TRELEGY ELLIPTA) 200-62.5-25 mcg blister with device [...] by mouth daily. Followed in coumadin clinic [place], [place] 0 Active take 1 tablet by [...] 4 mg/0.1 mL nasal liquid Instill 1 [place] into one nostril (alternate sides) as needed. [...] Encounter for therapeutic drug level monitoring; Translations: [[facility] THERAPEUTC DRUG LEVL MONITORING] Onset: 3 Episodic Other aftercare (1 source) [facility] (current) use of anticoagulants; Translations: [[facility] CURRNT USE ANTICOAGULANTS] Onset: 3 Episodic Other [...] Translations: [Bee sting, undetermined intent, initial encounter T63.364A] Onset: 06-22-2021 Resolved: 06-22-2021 Episodic Varicose veins [...] on above: Order Comment: FACIL ITY: [facility] - [facility] [id number] Performed By: #### C BC/D3, ESRCRP, RHF, URCA #### [facility] [address] [facility], [address] ABS BASOPHIL 0.06 x10^3ul Normal (0.00 - 0.16) [facility] Comment on above: Order Comment: FACIL ITY: [facility] - [facility] [id number] Performed By: #### C BC/D3, ESRCRP, RHF, URCA #### [facility] [address] [facility], [id number] ABS BLAST 0.00 x10^3ul Normal (0.00 - 0.01) [facility] Comment on above: Order Comment: FACIL ITY: [facility] [id number] Performed By: #### C BC/D3, ESRCRP, RHF, URCA #### [facility] [address] [facility], [address] ABS EOSINOPHIL 0.40 x10^3ul Normal (0.00 - 0.40) [place] [facility] Comment on above: Order Comment: [facility] [id number] Performed By: #### C BC/D3, ESRCRP, RHF, URCA #### [facility] [address] [facility], [address] ABS IMMATURE GRANS 0.00 x10^3ul Normal (0.00 - 0.11) [facility] Comment on above: Order Comment: FACIL ITY: [facility] - [facility] [id number] Performed By: #### C BC/D3, ESRCRP, RHF, URCA #### [facility] [address] [facility], [address] ABS LYMPHOCYTE 1.37 x10^3ul Normal (0.96 - 5.40) [facility] Comment on above: Order Comment: FACIL ITY[facility] [id number] Performed By: #### C BC/D3, ESRCRP, RHF, URCA #### [facility] [address] [facility], [address] ABS METAMYELOCYTE 0.00 x10^3ul Normal (0.00 - 0.01) [facility] Comment on above: Order Comment: FACIL ITY: [facility] [id number] Performed By: #### C BC/D3, ESRCRP, RHF, URCA #### [facility] [address] [facility], [address] ABS MONOCYTE 0.28 x10^3ul Normal (0.10 - 1.00) [facility] Comment on above: Order Comment: FACIL ITY: [facility] [id number] Performed By: #### C BC/D3, ESRCRP, RHF, URCA #### [facility] [address] [place], [address] ABS MYELOYCYTE 0.00 x10^3ul Normal (0.00 - 0.01) [facility] Comment on above: Order Comment: [facility]IL ITY[facility] [id number] Performed By: #### C BC/D3, ESRCRP, RHF, URCA #### [facility] [address] [place], [address] ABS NEUTROPHIL 3.47 x10^3ul Normal (1.50 - 7.00) [facility] Comment on above: Order Comment: FACIL ITY: [facility] [id number] Performed By: #### C BC/D3, ESRCRP, RHF, URCA #### [facility] [address] [place], [address] ABS PROMYELOCYTE 0.00 x10^3ul Normal (0.00 - 0.01) [facility] Comment on above: Order Comment: [facility]ACIL ITY[facility] [id number] Performed By: #### C BC/D3, ESRCRP, RHF, URCA #### [facility] [address] [place], [address] ABS REAC LYMPH 0.00 x10^3ul Normal (0.00 - 0.01) [facility] [facility] Comment on above: Order Comment: FACIL ITY[facility] [id number] Performed By: #### C BC/D3, ESRCRP, RHF, URCA #### [facility] [address] [place], [address] ANISOCYTOSIS SL High (NONE) [facility] Comment on above: Order Comment: FACIL ITY[facility] [id number] Performed By: #### C BC/D3, ESRCRP, RHF, URCA #### [facility] [address] [place], [address] BANDS 2 % Normal () [facility] Comment on above: Order Comment: FACIL ITY: [facility] [id number] Performed By: #### C BC/D3, ESRCRP, RHF, URCA #### [facility] [address] [place], [address] BASOS 1 % Normal () [facility] Comment on above: Order Comment: FACIL ITY: [facility] [id number] Performed By: #### C BC/D3, ESRCRP, RHF, URCA #### [facility] [address] [place], [address] BLASTS 0 % Normal () [facility] Comment on above: Order Comment: FACIL ITY: [facility] [id number] Performed By: #### C BC/D3, ESRCRP, RHF, URCA #### [facility] [address] [place], [address] EOSINOPHIL 7 % Normal () [facility] Comment on above: Order Comment: FACIL ITY: [facility] [id number] Performed By: #### C BC/D3, ESRCRP, RHF, URCA #### [facility] [address] [place], [address] HYPOCHROMASIA NONE Normal (NONE) [facility] Comment on above: Order Comment: FACIL ITY: [facility] [id number] Performed By: #### C BC/D3, ESRCRP, RHF, URCA #### [facility] [address] [place], [address] IMMATURE GRANS (IG) 0 % Normal () [facility] Comment on above: Order Comment: FACIL ITY: [facility] [id number] Performed By: #### C BC/D3, ESRCRP, RHF, URCA #### [facility] [address] [place], [address] LYMPS 24 % Normal () [facility] Comment on above: Order Comment: FACIL ITY[facility] [id number] Performed By: #### C BC/D3, ESRCRP, RHF, URCA #### [facility] [address] [place], [address] MACROCYTES NONE Normal (NONE) [facility] Comment on above: Order Comment: FACIL ITY: [facility] [id number] Performed By: #### C BC/D3, ESRCRP, RHF, URCA #### [facility] [address] [place], [address] MCH 27.8 PG Normal (27.0 - 33.0) [facility] Comment on above: Order Comment: FACIL ITY: [facility] [id number] Performed By: #### C BC/D3, ESRCRP, RHF, URCA #### [facility] [address] [place], [address] MCHC 31.2 G/DL Normal (30.0 - 37.0) [facility] Comment on above: Order Comment: FACIL ITY: [facility] [id number] Performed By: #### C BC/D3, ESRCRP, RHF, URCA #### [facility] [address] [place], [address] MCV 88.9 fl Normal (81.0 - 99.0) [facility] Comment on above: Order Comment: FACIL ITY: [facility] [id number] Performed By: #### C BC/D3, ESRCRP, RHF, URCA #### [facility] [address] [place], [address] META 0 % Normal () [facility] Comment on above: Order Comment: FACIL ITY: [facility] [id number] Performed By: #### C BC/D3, ESRCRP, RHF, URCA #### [facility] [address] [place], [address] MICROCYTES NONE Normal (NONE) [facility] Comment on above: Order Comment: FACIL ITY: [facility] [id number] Performed By: #### C BC/D3, ESRCRP, RHF, URCA #### [facility] [address] [place], [address] MONOS 5 % Normal () [facility] Comment on above: Order Comment: FACIL ITY: [facility] [id number] Performed By: #### C BC/D3, ESRCRP, RHF, URCA #### [facility] [address] [place], [address] MYELO 0 % Normal () [facility] Comment on above: Order Comment: FACIL ITY: [facility] [id number] Performed By: #### C BC/D3, ESRCRP, RHF, URCA #### [facility] [address] [place], [address] NRBC/100 WBC 0 Normal (0 - 0) [facility] Comment on above: Order Comment: FACIL ITY: [facility] [id number] Performed By: #### C BC/D3, ESRCRP, RHF, URCA #### [facility] [address] [place], [address] OVALOCYTES NONE Normal (NONE) [facility] Comment on above: Order Comment: FACIL ITY: [facility] [id number] Performed By: #### C BC/D3, ESRCRP, RHF, URCA #### [facility] [address] [place], [address] PLT 361 x10^3ul Normal (130 - 400) [facility] Comment on above: Order Comment: FACIL ITY: [facility] [id number] Performed By: #### C BC/D3, ESRCRP, RHF, URCA #### [facility] [address] [place], [address] POIKILOCYTOSIS SL High (NONE) [facility] Comment on above: Order Comment: FACIL ITY: [facility] [id number] Performed By: #### C BC/D3, ESRCRP, RHF, URCA #### [facility] [address] [place], [address] POLYCHROMASIA SL High (NONE) [facility] Comment on above: Order Comment: FACIL ITY: [facility] [id number] Performed By: #### C BC/D3, ESRCRP, RHF, URCA #### [facility] [address] [place], [address] PROMYELOCYTES 0 % Normal () [facility] Comment on above: Order Comment: FACIL ITY: [facility] [id number] Performed By: #### C BC/D3, ESRCRP, RHF, URCA #### [facility] [address] [place], [address] RBC 4.97 x10^6ul Normal (4.20 - 5.40) [facility] Comment on above: Order Comment: FACIL ITY: [facility] [id number] Performed By: #### C BC/D3, ESRCRP, RHF, URCA #### [facility] [address] [place], [address] RDW-SD 48.4 fl Normal (37.0 - 49.0) [facility] Comment on above: Order Comment: FACIL ITY: [facility] [id number] Performed By: #### C BC/D3, ESRCRP, RHF, URCA #### [facility] [address] [place], [address] REACTIVE LYMPH 0 % Normal () [facility] Comment on above: Order Comment: FACIL ITY: [facility] [id number] Performed By: #### C BC/D3, ESRCRP, RHF, URCA #### [facility] [address] [place], [address] SCHISTOCYTES NONE Normal (NONE) [facility] Comment on above: Order Comment: FACIL ITY: [facility] [id number] Performed By: #### C BC/D3, ESRCRP, RHF, URCA #### [facility] [address] [place], [address] SEGS 61 % Normal () [facility] Comment on above: Order Comment: FACIL ITY: [facility] [id number] Performed By: #### C BC/D3, ESRCRP, RHF, URCA #### [facility] [address] [place], [address] TARGET CELLS NONE Normal (NONE) [facility] Comment on above: Order Comment: FACIL ITY: [facility] [id number] Performed By: #### C BC/D3, ESRCRP, RHF, URCA #### [facility] [address] [place], [address] WBC 5.69 x10^3ul Normal (3.80 - 10.60) [facility] Comment on above: Order Comment: FACIL ITY: [facility] [id number] Performed By: #### C BC/D3, ESRCRP, RHF, URCA #### [facility] [address] [place], [address] RF FACTORon 09-26-2024 RF FACTOR <9 Normal (0 - 12) [facility] Comment on above: Result Comment: RF F ACTOR = LESS THAN 9 IU/ML RF FACTOR MIN. DETECTION = 9 IU/ML. Performed By: #### C BC/D3, ESRCRP, RHF, URCA #### [facility] [address] [place], [address] SED RATE - CRPon 09-26-2024 CRP EXTENDED RANGE 8.02 MG/L High (0.00 - 5.00) [facility] Comment on above: Performed By: #### C BC/D3, ESRCRP, RHF, URCA #### [facility] [address] [place], [address] SED RATE WEST. 18 MM/HR Normal (0 - 25) [facility] Comment on above: Performed By: #### C BC/D3, ESRCRP, RHF, URCA #### [facility] [address] [place], [address] URIC ACIDon 09-26-2024 Urate [Mass/Vol] 6.1 mg/dL Normal (2.5 - 6.2) [facility] Comment on above: Performed By: #### C BC/D3, ESRCRP, RHF, URCA #### [facility] [address] [place], [address] BASIC MET PANEL W/GFRon 06-26 Calcium [Mass/Vol] 9.5 mg/dL Normal (8.6 - 10.6) [facility] on above: Order Comment: FACIL ITY: [facility] - [facility] [id number] Performed By: #### C HEM-B, MG #### [facility] [address] [place], [address] Chloride [Moles/Vol] 101 mmol/L Normal (98 - 107) [facility] Comment on above: Order Comment: FACIL ITY: [facility] [id number] Performed By: #### C HEM-B, MG #### [facility] [address] [place], [address] CO2 [Moles/Vol] 26 mmol/L Normal (22 - 30) [facility] Comment on above: Order Comment: FACIL ITY: [facility] [id number] Performed By: #### C HEM-B, MG #### [facility] [address] [place], [address] Creatinine [Mass/Vol] 0.57 mg/dL Normal (0.52 - 1.04) [facility] Comment on above: Order Comment: FACIL ITY: [facility] [id number] Performed By: #### C HEM-B, MG #### [facility] [address] [place], [address] GFR- AMER 128.8 ML/M1.7 Normal (60.0 - 140.1) [facility] Comment on above: Order Comment: FACIL ITY: [facility] [id number] Performed By: #### C HEM-B, MG #### [facility] [address] [place], [address] GFR-NON AFRIC-AMER 106.4 ML/M1.7 Normal (60.0 - 115.8) [facility] Comment on above: Order Comment: FACIL ITY: [facility] [id number] Performed By: #### C HEM-B, MG #### [facility] [address] [place], [address] Glucose [Mass/Vol] 73 mg/dL Low (74 - 106) [facility] Comment on above: Order Comment: FACIL ITY: [facility] [id number] Performed By: #### C HEM-B, MG #### [facility] [address] [place], [address] Potassium [Moles/Vol] 5.4 mmol/L High (3.5 - 5.1) [facility] Comment on above: Order Comment: FACIL ITY: [facility] [id number] Performed By: #### C HEM-B, MG #### [facility] [address] [place], [address] Sodium [Moles/Vol] 131 mmol/L Low (137 - 145) [facility] Comment on above: Order Comment: FACIL ITY: [facility] [id number] Performed By: #### C HEM-B, MG #### [facility] [address] [place], [address] Urea nitrogen [Mass/Vol] 9 mg/dL Normal (4 - 25) [facility] Comment on above: Order Comment: FACIL ITY: [facility] [id number] Performed By: #### C HEM-B, MG #### [facility] [address] [place], [address] MAGNESIUMon 07-17-2024 Magnesium [Mass/Vol] 2.1 mg/dL Normal (1.6 - 2.3) [facility] Comment on above: Performed By: #### C HEM-B, MG #### [facility] [address] [place], [address] EGDon 02-28-2024 [facility] Venkat 02-28-2024 L Specimen: [id number] Received: 02/28/24 Status: DUDLEY Powell Num: [id number] Spec Type: Surgical Subm Dr: Aliza Spencer DO Tissues: A Stomach - Biopsy/Polyp (ANTRUM BX) B Stomach - Biopsy/Polyp (BX FUNDAL GLAND POLYP) C Esophagus Biopsy (DISTAL ESOPH BX) D Esophagus Biopsy (UPPER ESOPH BX) Procedures: HE/8, Gross/Micro L4/4 Age/ Patient Sex Location Account Attending Physician Madan Perry 64/F LABELL [id number] Aliza Spencer DO SPEC NUM: [id number] RECD: 02/28/24 STATUS: DUDLEY POWELL NUM: [id number] SUNSHINE: 02/28/[address]: Aliza Spencer DO ENTERED: 02/28/24 [facility] DR: Reece,Lab SPEC TYPE: Surgical DEPT: [...] tissue fragment, entirely submitted in B1. Specimen: [id number] Received: 02/28/24 Status: DUDLEY Sherry Num: [id number] Spec Type: Surgical Subm Dr: Aliza Spencer DO Tissues: A Stomach - Biopsy/Polyp (ANTRUM BX) B Stomach - Biopsy/Polyp (BX FUNDAL GLAND POLYP) C Esophagus Biopsy (DISTAL ESOPH BX) D Esophagus Biopsy (UPPER ESOPH BX) Procedures: HE/8, Gross/Micro L4/4 Patient: Madan Perry [id number] (Continued) Specimen: [id number] Received: 02/28/24 (Continued) Gross Description (Continued) Signed (signature on file) Steven Ruvalcaba MD 02/29/24 1501 Specimen: [id number] Received: 02/28/24 Status: DUDLEY Powell Num: [id number] Spec Type: Surgical Subm Dr: Aliza Spencer DO Tissues: A Stomach - Biopsy/Polyp (ANTRUM BX) B Stomach - Biopsy/Polyp (BX FUNDAL GLAND POLYP) C Esophagus Biopsy (DISTAL ESOPH BX) D Esophagus Biopsy (UPPER ESOPH BX) Procedures: WILEY/Ratna, Gross/Micro L4/4 Patient: Madan Perry [id number] (Continued) Specimen: [id number] Received: 02/28/24 (Continued) Gross Description (Continued) C. Further labeled distal esophagus BX are 2 jiménez mucosal tissue fragments measuring 0.3 x 0.2 x 0.1 cm and 0.2 x 0.2 x 0.1 cm, entirely submitted in C1. D. Further labeled upper esophagus BX are 2 jiménez mucosal tissue fragments each measuring 0.2 x 0.1 x 0.1 cm, entirely submitted in D1. CPT Codes 69174b7 Specimen: [id number] Received: 02/28/24 Status: DUDLEY Powell Num: [id number] Spec Type: Surgical Subm Dr: Aliza Spencer, Tissues: A Stomach - Biopsy/Polyp (ANTRUM BX) B Stomach - Biopsy/Polyp (BX FUNDAL GLAND POLYP) C Esophagus Biopsy (DISTAL ESOPH BX) D Esophagus Biopsy (UPPER ESOPH BX) Procedures: HE/8, Gross/Micro L4/4 Patient: Madan Perry [id number] (Continued) Signed (signature on file) Steven Ruvalcaba MD 02/29/24 1501 Normal [facility] Surgical Pathologyon 024 [facility] URINE CULTUREon 12-23-2023 Bacteria identified Cx Nom (U) FINAL Normal (. - .) [facility] Comment on above: Order Comment: MS CC FACILITY: [facility] [id number] Result Comment: HUA N CATCH MID-STREAM URINE > 10,000 BUT < 100,000 CFU/ML RESEMBLES A CONTAMINATED URINE COLLECTION Performed By: #### C -UR #### [facility] [address] [facility], [address] Progress Noteson 08-25-2023 Wet Chemistry Analyst Authentication Interface Message Text CC: Left hand and wrist pain Follow up after MRI done at [facility]. Normal The [employer] Wet Chemistry Analyst Authentication Interface Message Text Patient Office Note or Post OP Note Name:Madan Perry Date: 08/25/2023 CC: left wrist pain at [facility] area No chief complaint on [...] Injection Procedure.formerly [facility] 08/25/2023 [id number] Madan Perry The patient requested an injection [...] alcohol and a dressing applied. Normal [facility] MR wrist LT wo conon 07-20-2 023 MR wrist LT wo con [facility] [place] [address] MRI Report Signed Patient: Madan Perry MR#: [id number] : 1960 Acct:[id number] Age/Sex: 63 / F ADM Date: 07/20/23 Loc: [facility] Room: Type: [facility] Attending Dr: Aliza Aguilar Copies to: Aliza Aguilar Ordering Provider: Aliza Aguilar Date of Service: 07/20/23 MR/MR hand LT wo con: MEDIAN NERVE COMPRESSION ([id number]) MR/MR wrist LT wo con: MEDIAN NERVE COMPRESSION ([id number]) XR/XR pre/post mri xray: MEDIAN NERVE COMPRESSION [...] 7:38 PM Dictation Location: RADIO-PC-14 Transcribed By: [facility] 07/21/231937 Dictated By: Jose Dial DO 07/20/23 1525 Signed By: 07/21/231937 Normal [facility] Telephone Encounteron 2022 Wet Chemistry Analyst Authentication Interface Message Text Spoke with patient and scheduled. Normal [facility] Telephone Encounteron 2022 Wet Chemistry Analyst Authentication Interface Message Text Pt called as [...] she would need something sooner. Contact pt @[phone] Normal [facility] Addendum Noteon 06-16-2023 Wet Chemistry Analyst Authentication Interface Message Text Addended by: ALIZA AGUILAR on: 06/16/2023 11:34 AM Modules accepted: Orders Normal [facility] Progress Noteson 06-16-2023 Wet Chemistry Analyst Authentication Interface Message Text Patient Office Note [...] this patient. Aliza Aguilar MD Normal [facility] Wet Chemistry Analyst Authentication Interface Message Text CC: Left hand pain Pain Left wrist and hand; tingling to middle and ring fingers. Pt states ganglion which was removed has returned and is painful. CMC joint painful. 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 Normal [facility] XR HAND LEFT 3 VIEWSon 06-16 [...] findings. Left hand MACRO: None Normal [facility] XR Hand - left 3 Viewson [...] findings. Left hand MACRO: None [facility] Radiology Study observation (narrative) [facility] - [facility] 3 ViewsOrdere d By: Alberto Llanes on 06-16-2023 [facility] Work Phone: US DARNELL DOP LEG BILon [...] Date: 2023-01-27 17:22 Normal The [facility] CBC AUTO DIFFon 01-12-2023 BASO # 0.1 103/ul Normal 0.0-0.1 [facility] Comment on above: Performed By: #### C BC #### [facility] [address] [address] [address] Rocio Hernandez Basophils/100 WBC (Bld) 1.0 % Normal 0.2-2.0 [facility] Comment on above: Performed By: #### C BC #### [facility] [address] [place] [address] Dr. Rocio Hernandez EO # 0.2 103/ul Normal 0.0-0.7 [facility] Comment on above: Performed By: #### C BC #### [facility] [address] [place] [address] Dr. Rocio Hernandez Eosinophils/100 WBC (Bld) 2.9 % Normal 0.9-7.0 [facility] Comment on above: Performed By: #### C BC #### [facility] [address] [place] [address] Dr. Rocio Hernandez Erythrocyte distribution width (RBC) [Ratio] 14.1 % Normal 11.0-15.0 [facility] Comment on above: Performed By: #### C BC #### [facility] [address] [place] [address] Dr. Rocio Hernandez Hematocrit (Bld) [Volume fraction] 41.2 % Normal 36.0-48.0 [facility] Comment on above: Performed By: #### C BC #### [facility] [address] [place] [address] Dr. Rocio Hernandez Hemoglobin (Bld) [Mass/Vol] 13.6 g/dL Normal 12.0-16.0 [facility] Comment on above: Performed By: #### C BC #### [facility] [address] [place] [address] Dr. Rcoio Hernandez IG # 0.01 10e3/ul Normal 0.00-0.03 [facility] Comment on above: Performed By: #### C BC #### [facility] [address] [place] [address] Dr. Rocio Hernandez IG % 0.2 % Normal 0.0-0.5 [facility] Comment on above: Performed By: #### C BC #### [facility] [address] [place] [address] Dr. Rocio Hernandez LYMPH # 1.3 103/ul Normal 1.2-3.8 [facility] Comment on above: Performed By: #### C BC #### [facility] [address] [place] [address] Dr. Rocio Hernandez Lymphocytes/100 WBC (Bld) 21.9 % Normal 20.5-60.0 [facility] Comment on above: Performed By: #### C BC #### [facility] [address] [place] [address] Dr. Rocio Hernandez MANUAL DIFF REQ NO Normal [facility] Comment on above: Performed By: #### C BC #### [facility] [address] [place] [address] Dr. Rocio Hernandez MCH (RBC) [Entitic mass] 28.4 pg Normal 26.7-34.0 [facility] Comment on above: Performed By: #### C BC #### [facility] [address] [place] [address] Dr. Rocio Hernandez MCHC (RBC) [Mass/Vol] 33.0 g/dL Normal 29.9-35.2 [facility] Comment on above: Performed By: #### C BC #### [facility] [address] [place] [address] Dr. Rocio Hernandez MCV (RBC) [Entitic vol] 86.0 fL Normal 81.0-99.0 [facility] Comment on above: Performed By: #### C BC #### [facility] [address] [place] [address] Dr. Rocio Hernandez MONO # 0.6 103/ul Normal 0.3-0.8 [facility] Comment on above: Performed By: #### C BC #### [facility] [address] [place] [address] Dr. Rocio Hernandez Monocytes/100 WBC (Bld) 10.3 % Normal 1.7-12.0 [facility] Comment on above: Performed By: #### C BC #### [facility] [address] [place] [address] Dr. Rocio Hernandez NEUT # 3.8 103/ul Normal 1.4-6.5 [facility] Comment on above: Performed By: #### C BC #### [facility] [address] [address] [address] Rocio Hernandez Neutrophils/100 WBC (Bld) 63.7 % Normal 43.0-75.0 [facility] Comment on above: Performed By: #### C BC #### [facility] [address] [address] [address] Rocio Hernandez Platelet mean volume (Bld) [Entitic vol] 9.0 fL Critically low 9.5-13.5 [facility] Comment on above: Performed By: #### C BC #### [facility] [address] [address] [address] Rocio Hernandez PLT 360 103/ul Normal 150-450 [facility] Comment on above: Performed By: #### C BC #### [facility] [address] [address] [address] Rocio Hernandez RBC 4.79 106/ul Normal 4.20-5.40 [facility] Comment on above: Performed By: #### C BC #### [facility] [address] [address] [address] Rocio Hernandez WBC 5.9 103/ul Normal 4.0-11.0 [facility] Comment on above: Performed By: #### C BC #### [facility] [address] [address] [address] Rocio Hernandez FREE T3on 01-12-2023 FREE T3 2.31 pg/mlL Normal 2.18-3.98 [facility] Comment on above: Performed By: #### T SH, CMP, LIPID, FT3 ####[facility] [address] [place], [place] [address]XyDr. Rocio Hernandez FREE T4on 01-12-2023 Free T4 [Mass/Vol] 1.21 ng/dL Normal 0.76-1.46 [facility] Comment on above: Performed By: #### B 12FOL, FT4 #### [facility] [address] [address] [address] Rocio Hernandez GLYCOHEMOGLOBIN A1Con 2022 ADA RECOMMENDATION SEE BELOW Normal [facility] Comment on above: Result Comment: ADA RECOMMENDED LIMIT 4.0 - 6.0 ADA THERAPEUTIC TARGET < 7.0 ACTION SUGGESTED > 7.0 Performed By: #### A 1C ####[facility] [address] [place], [place] [address]KrDr. Rocio Hernandez Glucose [Mass/Vol] 123 mg/dL Normal [facility] Comment on above: Performed By: #### A 1C ####[facility] [address] [address]Dr. Rocio Hernandez HbA1c (Bld) [Mass fraction] 5.9 % Normal 4.5-6.2 [facility] Comment on above: Performed By: #### A 1C ####[facility] [address] [address]Dr. Rocio Hernandez LIPID PROFILEon 01-12-2023 CHOL-HDL RATIO NORM SEE BELOW Normal [facility] Comment on above: Result Comment: 3.3 - 4.4 LOW RISK 4.4 - 7.1 AVERAGE RISK 7.1 - 11.0 MODERATE RISK >11.0 HIGH RISK Performed By: #### T SH, CMP, LIPID, FT3 #### [facility] [address] [address] [address] Rocio Hernandez Cholesterol [Mass/Vol] 203 mg/dL Critically high <=200 [facility] Comment on above: Performed By: #### T SH, CMP, LIPID, FT3 #### [facility] [address] [address] [address] Rocio Hernandez Cholesterol in HDL [Mass/Vol] 89 mg/dL Critically high 40-60 [facility] Comment on above: Performed By: #### T SH, CMP, LIPID, FT3 #### [facility] [address] [address] [address] Rocio Hernandez Cholesterol in LDL [Mass/Vol] 87.8 mg/dL Normal [facility] Comment on above: Performed By: #### T SH, CMP, LIPID, FT3 #### [facility] [address] [address] [address] Rocio Hernandez Cholesterol.total/C holesterol in HDL [Mass ratio] 2.3 {ratio} Normal [facility] Comment on above: Performed By: #### T SH, CMP, LIPID, FT3 #### [facility] [address] [address] [address] Rocio Hernandez HDL NORMAL > or = 60 mg/dl - LO W CARDIOVASCULAR RISK <40 mg/dl - HIGH CARDIOVASCULAR RISK Normal [facility] Comment on above: Performed By: #### T SH, CMP, LIPID, FT3 #### [facility] [address] [address] [address] Rocio Hernandez LDL CALC NORMAL SEE BELOW Normal [facility] Comment on above: Result Comment: <100 mg/dl OPTIMAL 100 - 129 mg/dl NEAR OR ABOVE OPTIMAL 130 - 159 mg/dl BORDERLINE HIGH 160 - 189 mg/dl HIGH >190 mg/dl VERY HIGH Performed By: #### T SH, CMP, LIPID, FT3 #### [facility] [address] [address] [address] Rocio Hernandez Triglyceride [Mass/Vol] 131 mg/dL Normal <=150 [facility] Comment on above: Performed By: #### T SH, CMP, LIPID, FT3 #### [facility] [address] [address] [address] Rocio Hernandez VLDL CALC 26.2 mg/dL Normal [facility] Comment on above: Performed By: #### T SH, CMP, LIPID, FT3 #### [facility] [address] [address] [address] Rocio Hernandez MICROALB CREAT RATIO RANDOMo n 01-12-2023 mALB <1.3 Normal <=30.0 [facility] Comment on above: Performed By: #### M CRR ####[facility] [address] [address]Dr. Rocio Hernandez MALB CR RATIO 13.6 mg/g Normal 0.0-29.9 [facility] Comment on above: Performed By: #### M CRR ####[facility] [address] [id number] Rocio Hernandez MALB CR RATIO RANGE SEE BELOW Normal [facility] Comment on above: Result Comment: NO M ICROALBUMINURIA 0-29 MG/G CLINICAL MICROALBUMINURIA 30-300 MG/G MACROALBUMINURIA >300 MG/G Performed By: #### M CRR ####[facility] [address] [place], [place] [address]MzDr. oRcio Hernandez URINE CREAT 95.84 mg/dL Normal 20.00-300.00 [facility] Comment on above: Performed By: #### M CRR ####[facility] [address] [place], [place] [address]TjDr. Rocio Hernandez PROF 14(COMP METB)on 023 Albumin [Mass/Vol] 3.8 g/dL Normal 3.4-5.0 [facility] Comment on above: Performed By: #### T SH, CMP, LIPID, FT3 #### [facility] [address] [address] [address] Rocio Hernandez Albumin/Globulin [Mass ratio] 0.9 {ratio} Normal [facility] Comment on above: Performed By: #### T SH, CMP, LIPID, FT3 #### [facility] [address] [address] [address] Rocio Hernandez ALP [Catalytic activity/Vol] 111 U/L Normal 46-116 [facility] Comment on above: Performed By: #### T SH, CMP, LIPID, FT3 #### [facility] [address] [address] [address] Rocio Hernandez ALT [Catalytic activity/Vol] 42 U/L Normal 14-59 [facility] Comment on above: Performed By: #### T SH, CMP, LIPID, FT3 #### [facility] [address] [address] [address] Rocio Hernandez Anion gap [Moles/Vol] 10.8 mmol/L Normal [facility] Comment on above: Performed By: #### T SH, CMP, LIPID, FT3 #### [facility] [address] [address] [address] Rocio Hernandez AST [Catalytic activity/Vol] 24 U/L Normal 15-37 [facility] Comment on above: Performed By: #### T SH, CMP, LIPID, FT3 #### [facility] [address] [address] [address] Rocio Hernandez Bilirubin [Mass/Vol] 0.4 mg/dL Normal 0.2-1.0 [facility] Comment on above: Performed By: #### T SH, CMP, LIPID, FT3 #### [facility] [address] [place] [address] Dr. Rocio Hernandez Calcium [Mass/Vol] 9.6 mg/dL Normal 8.5-10.1 [facility] Comment on above: Performed By: #### T SH, CMP, LIPID, FT3 #### [facility] [address] [place] [address] Dr. Rocio Hernandez Chloride [Moles/Vol] 93 mmol/L Critically low 98-107 [facility] Comment on above: Performed By: #### T SH, CMP, LIPID, FT3 #### [facility] [address] [place] [address] Dr. Rocio Hernandez CO2 [Moles/Vol] 31.2 mmol/L Normal 21.0-32.0 [facility] Comment on above: Performed By: #### T SH, CMP, LIPID, FT3 #### [facility] [address] [place] [address] Dr. Rocio Hernandez Creatinine [Mass/Vol] 1.02 mg/dL Normal 0.55-1.02 [facility] Comment on above: Performed By: #### T SH, CMP, LIPID, FT3 #### [facility] [address] [place] [address] Dr. Rocio Hernandez EGFR-AF JAPANESE >60 Normal >=60 [facility] Comment on above: Performed By: #### T SH, CMP, LIPID, FT3 #### [facility] [address] [place] [address] Dr. Rocio Hernandez EGFR-NON AF JAPANESE 55 mL/min/1.73m2 Critically low >=60 [facility] Comment on above: Performed By: #### T SH, CMP, LIPID, FT3 #### [facility] [address] [address] [address] Rocio Hernandez Globulin (S) [Mass/Vol] 4.4 g/dL Normal [facility] Comment on above: Performed By: #### T SH, CMP, LIPID, FT3 #### [facility] [address] [place] [address] Dr. Rocio Hernandez Glucose [Mass/Vol] 102 mg/dL Normal 74-106 [facility] Comment on above: Performed By: #### T SH, CMP, LIPID, FT3 #### [facility] [address] [address] [address] Rocio Hernandez Potassium [Moles/Vol] 4.0 mmol/L Normal 3.5-5.1 [facility] Comment on above: Performed By: #### T SH, CMP, LIPID, FT3 #### [facility] [address] [place] [address] Dr. Rocio Hernandez Protein [Mass/Vol] 8.2 g/dL Normal 6.4-8.2 [facility] Comment on above: Performed By: #### T SH, CMP, LIPID, FT3 #### [facility] [address] [place] [address] Dr. Rocio Hernandez Sodium [Moles/Vol] 131 mmol/L Critically low 136-145 [facility] Comment on above: Performed By: #### T SH, CMP, LIPID, FT3 #### [facility] [address] [place] [address] Dr. Rocio Hernandez Urea nitrogen [Mass/Vol] 6.0 mg/dL Critically low 7.0-18.0 [facility] Comment on above: Performed By: #### T SH, CMP, LIPID, FT3 #### [facility] [address] [place] [address] Dr. Rocio Hernandez Urea nitrogen/Creatinine [Mass ratio] 5.9 mg/mg Normal [facility] Comment on above: Performed By: #### T SH, CMP, LIPID, FT3 #### [facility] [address] [address] [address] Rocio Hernandez TSHon 01-12-2023 TSH 5.647 uIU/mL Critically high 0.358-3.740 [facility] Comment on above: Performed By: #### T SH, CMP, LIPID, FT3 #### [facility] [address] [address] [address] Rocio Hernandez VIT B12 AND FOLATEon 023 Cobalamin (Vitamin B12) [Mass/Vol] 1189.0 pg/mL Critically high 193.0-986.0 [facility] Comment on above: Performed By: #### B 12FOL, FT4 #### [facility] [address] [address] [address] Rocio Hernandez FOLATE 27.30 ng/mL Normal 8.60-58.90 [facility] Comment on above: Performed By: #### B 12FOL, FT4 #### [facility] [address] [place] [address] Dr. Rocio Hernandez MG MAMM SCREEN 3D TANIA CADon 12-19-2022 MG MAMM SCREEN 3D TANIA CAD Patient: MADAN PERRY Exam Date: 12/19/2022 : 1960 Gender:F Ordering : DR [place] D.O. Admission #: [id number] Family : Order #: [id number] CLICK HERE TO VIEW EXAM RADIOLOGY REPORT [...] at age 54. LOCATION: [facility] BREAST COMPOSITION: Scattered areas fibroglandular [...] on 12/19/2022 at 11:19 Normal [facility] XR DEXA BONE DENSITYon 12-19 XR DEXA [...] LIZ FLORES Date: 2022-12-19 10:01 Normal [facility] FREE T3on 03-22-2022 FREE T3 2.43 pg/mlL Normal 2.18-3.98 [facility] Comment on above: Performed By: #### B MP, FT3, TSH ####[facility] [address] [place], [place] [address]SdClem Hernandez FREE T4on 03-22-2022 Free T4 [Mass/Vol] 1.43 ng/dL Normal 0.76-1.46 [facility] Comment on above: Performed By: #### F T4 ####[facility] [address] [address]Dr. Rocio Hernandez PROF CHEM 8 (BAS METB)on Anion gap [Moles/Vol] 10.2 mmol/L Normal [facility] Comment on above: Performed By: #### B MP, FT3, TSH ####[facility] [address] [address]Dr. Rocio Hernandez Calcium [Mass/Vol] 8.8 mg/dL Normal 8.5-10.1 [facility] Comment on above: Performed By: #### B MP, FT3, TSH ####[facility] [address] [address]Dr. Rocio Hernandez Chloride [Moles/Vol] 104 mmol/L Normal 98-107 [facility] Comment on above: Performed By: #### B MP, FT3, TSH ####[facility] [address] [place], [place] [address]Dr. Rocio Hernandez CO2 [Moles/Vol] 31.7 mmol/L Normal 21.0-32.0 [facility] Comment on above: Performed By: #### B MP, FT3, TSH ####[facility] [address] [place], [place] [address]Dr. Rocio Hernandez Creatinine [Mass/Vol] 0.96 mg/dL Normal 0.55-1.02 [facility] Comment on above: Performed By: #### B MP, FT3, TSH ####[facility] [address] [address]Dr. Rocio Hernandez EGFR-AF JAPANESE >60 Normal >=60 [facility] Comment on above: Performed By: #### B MP, FT3, TSH ####[facility] [address] [address]Dr. Rocio Hernandez EGFR-NON AF JAPANESE 59 mL/min/1.73m2 Critically low >=60 [facility] Comment on above: Performed By: #### B MP, FT3, TSH ####[facility] [address] [address]Dr. Rocio Hernandez Glucose [Mass/Vol] 110 mg/dL Critically high 74-106 [facility] Comment on above: Performed By: #### B MP, FT3, TSH ####[facility] [address] [address]Dr. Rocio Hernandez Potassium [Moles/Vol] 2.9 mmol/L Critically low 3.5-5.1 [facility] Comment on above: Result Comment: TEST REPEATED CRITICAL VALUE VERIFIED Performed By: #### B MP, FT3, TSH ####[facility] [address] [address]Dr. Rocio Hernandez Sodium [Moles/Vol] 141 mmol/L Normal 136-145 [facility] Comment on above: Performed By: #### B MP, FT3, TSH ####[facility] [address] [address]Dr. Rocio Hernandez Urea nitrogen [Mass/Vol] 12.0 mg/dL Normal 7.0-18.0 [facility] Comment on above: Performed By: #### B MP, FT3, TSH ####[facility] [address] [address]Dr. Rocio Hernandez Urea nitrogen/Creatinine [Mass ratio] 12.5 mg/mg Normal [facility] Comment on above: Performed By: #### B MP, FT3, TSH ####[facility] [address] [address]Dr. Rocio Hernandez TSHon 03-22-2022 TSH 0.137 uIU/mL Critically low 0.358-3.740 [facility] Comment on above: Performed By: #### B MP, FT3, TSH ####[facility] [address] [address]Dr. Rocio Hernandez Patient Letter FTon 2020 Patient Letter FT (Inserted Image. Wilda ble to display) May 26, 2021 MADAN PERRY [address] [place] [address] MADAN PERRY 1960 Dear Madan, This is a SECOND ATTEMPT to remind you that you are due for an appointment with [facility]. Please contact our office at [phone] to schedule an appointment at your earliest convenience. Thank you, [facility] Normal [facility] Reminderson 05-26-2021 Reminders - From: Jane Onofre To: [facility] - Reminders/Recalls; Sent: 01/18/2021 12:33:31 EDT Show up: 04/25/2021 12:33:00 EDT Subject: Ambulatory Reminder Due Date/Time: 06/09/2021 12:33:00 EDT Reminder/Recall sara peace 5 year colon 06/09/2021 first recall letter second rcall letter Normal [facility] Patient Letter FTon 2020 Patient Letter FT (Inserted Image. Wilda ble to display) May 05, 2021 MADAN PERRY [address] [place] [address] MADAN PERRY 1960 Dear Mdaan, This is a reminder that you are due for an appointment with [facility]. Please contact our office at [phone] to schedule an appointment at your earliest convenience. Thank you, [facility] Vital Signs Date Time Vital Sign Value Performing Clinician Facility 06-27-2024 12:50-0400 Body height 161.29 cm [facility] 06-27-2024 12:50-0400 Body mass index (BMI) [Ratio] 27 kg/m2 [facility] 06-27-2024 12:50-0400 Body weight 70.3 kg [facility] 05-28-2024 13:040 Body height 161.29 cm DO [place] Work Phone: [facility] 05-28-2024 13:19-040 Body mass index (BMI) [Ratio] 26.5 kg/m2 DO [place] Work Phone: [facility] 05-28-2024 13:19040 Body weight 69.11 kg DO [place] Work Phone: [facility] 03-14-2024 11:15-0400 Diastolic blood pressure 69 mm[Hg] Steven Tavera MD Work Phone: [facility] 03-14-2024 11:15-0400 Heart rate 109 /min Steven Tavera MD Work Phone: [facility] 03-14-2024 11:15-0400 Systolic blood pressure 108 mm[Hg] Steven Tavera MD Work Phone: [facility] 03-14-2024 11:12-0400 Body height 162.6 cm Steven Tavera MD Work Phone: [facility] 03-14-2024 11:12-0400 Body mass index (BMI) [Ratio] 25.92 kg/m2 Steven Tavera MD Work Phone: [facility] 03-14-2024 11:12-0400 Body weight 68.49 kg Steven Tavera MD Work Phone: [facility] 02-20-2024 10:27-0400 Body height 162.6 cm Amita Simpson [employer] Work Phone: [facility] 02-20-2024 10:27-0400 Body mass index (BMI) [Ratio] 26.88 kg/m2 Amita Simpson [employer] Work Phone: [facility] 02-20-2024 10:27-0400 Body weight 71.03 kg Amita Simpson [employer] Work Phone: [facility] 02-20-2024 10:27-0400 Diastolic blood pressure 70 mm[Hg] Amita Simpson [employer] Work Phone: [facility] 02-20-2024 10:27-0400 Heart rate 97 /min Amita Simpson [employer] Work Phone: [facility] 02-20-2024 10:27-0400 Systolic blood pressure 141 mm[Hg] Amita Simpson [employer] Work Phone: [facility] 05-09-2022 16:35-0400 Body height 161.29 cm Adilia Cardenasault Other [facility] Other 05-09-2022 16:35-0400 Body mass index (BMI) [Ratio] 25.63 kg/m2 Adilia Rosa M Other [facility] Other 05-09-2022 16:35-0400 Body temperature 97.8 [degF] Adilia Cardenasault Other [facility] Other 05-09-2022 16:35-0400 Body weight 66.68 kg Adilia Cardenasault Other [facility] Other 05-09-2022 16:35-0400 Diastolic blood pressure 79 mm[Hg] Adilia Cardenasault Other [facility] Other 05-09-2022 16:35-0400 Respiratory rate 18 /min Adilia Cardenasault Other [facility] Other 05-09-2022 16:35-0400 SaO2% (BldA) [Mass fraction] 98 % Adilia Rosa M Other [facility] Other 05-09-2022 16:35-0400 Systolic blood pressure 136 mm[Hg] Adilia Rosa M Other [facility] Other 07-21-2021 16:05-0400 Body height 161.29 cm Lilian Ferreira Other [facility] Other 07-21-2021 16:05-0400 Body mass index (BMI) [Ratio] 26.5 kg/m2 Lilian Ferreira Other [facility] Other 07-21-2021 16:05-0400 Body temperature 96.2 [degF] Lilian Ferreira Other [facility] Other 07-21-2021 16:05-0400 Body weight 68.95 kg Lilian Ferreira Other [facility] Other 07-21-2021 16:05-0400 Diastolic blood pressure 95 mm[Hg] Lilian Ferreira Other [facility] Other 07-21-2021 16:05-0400 Respiratory rate 18 /min Lilian Ferreira Other [facility] Other 07-21-2021 16:05-0400 SaO2% (BldA) [Mass fraction] 99 % Lilian Ferreira Other [facility] Other 07-21-2021 16:05-0400 Systolic blood pressure 132 mm[Hg] Lilian Ferreira Other [facility] Other 06-22-2021 14:20-0400 Body height 161.29 cm Adilia Rosa M Other [facility] Other 06-22-2021 14:20-0400 Body mass index (BMI) [Ratio] 25.98 kg/m2 Adilia Rosa M Other [facility] Other 06-22-2021 14:20-0400 Body temperature 96.4 [degF] Adilia Rosa M Other [facility] Other 06-22-2021 14:20-0400 Body weight 67.59 kg Adilia Mederos Other [facility] Other 06-22-2021 14:20-0400 Diastolic blood pressure Adilia Mederos Other [facility] Other 06-22-2021 14:20-0400 Respiratory rate 18 /min Adilia Mederos Other [facility] Other 06-22-2021 14:20-0400 SaO2% (BldA) [Mass fraction] 98 % Adilia Mederos Other [facility] Other 06-22-2021 14:20-0400 Systolic blood pressure 111 mm[Hg] Adilia Mederos Other [facility] Other Encounters Encounter Date Encounter Type Care Provider Facility Start: 06-27-2024 End: 06-27-2024 ambulatory [facility] Work Phone: Start: 06-27-2024 End: 06-27-2024 Patient encounter procedure [facility] Work Phone: Start: 06-11-2024 End: 06-11-2024 Bamboo flowsheet Ivy Aguillon Felter [employer] Work Phone: [facility] Start: 06-11-2024 End: 06-11-2024 Bamboo flowsheet Ivy A Felter [employer] Work Phone: [facility] Start: 06-11-2024 End: 06-11-2024 Office outpatient visit 15 minutes Ivy Aguillon Felter [employer] Work Phone: [facility] Comment on above: Dermatofibroma (Prim maurisio Dx); Angioma of skin; Lentigines; Garcia angioma; Other nonthrombocytopenic purpura (CMS/HCC) Start: 06-11-2024 End: 06-11-2024 ambulatory IVY SAEZ Not Available Start: 05-28-2024 End: 05-28-2024 ambulatory [place] Work Phone: [facility] Work Phone: Start: 05-28-2024 End: 05-28-2024 Patient encounter procedure DO [place] Work Phone: 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 (Primary Dx) Start: 03-14-2024 End: 03-14-2024 ambulatory STEVEN TAVERA [facility] Start: 03-04-2024 End: 03-04-2024 Telephone encounter [facility] Start: 03-01-2024 End: 03-01-2024 Orders Only Not In System Ref Prov [facility] Start: 02-29-2024 End: 02-29-2024 Orders Only Bev Carlton A [facility] Comment on above: Dysphagia, unspecifi ed type Start: 02-28-2024 End: 02-28-2024 ambulatory DO [place]ake Work Phone: [facility] Work Phone: Start: 02-28-2024 End: 02-28-2024 Departed Referred DO [place] Work Phone: [facility] Start: 02-20-2024 End: 02-20-2024 Office outpatient new 30 minutes Amita Simpson [employer] Work Phone: [facility] Comment on above: Dysphagia, unspecifi ed type (Primary Dx) Start: 02-20-2024 End: 02-20-2024 ambulatory [facility] Start: 02-06-2024 End: 02-06-2024 Telephone encounter Amita Simpson [employer] Work Phone: [facility] General Surgery Start: 01-15-2024 End: 01-15-2024 ambulatory [facility] Start: 12-04-2023 End: 12-04-2023 ambulatory Andsilvana Kellyitis Facility:[facility] Start: 11-06-2023 End: 11-06-2023 ambulatory Andsilvana Harp MD Facility:[facility] Start: 10-09-2023 End: 10-09-2023 ambulatory Andsilvana Harp MD Facility:[facility] Start: 08-25-2023 End: 08-25-2023 ambulatory ALIZA AGUILAR Facility:[facility] Start: 08-25-2023 End: 08-25-2023 Office outpatient visit 15 minutes Aliza Aguilar MD Work Phone: [address] [facility] Orth[facility] Comment on above: Hand arthritis (Prim maurisio Dx) Start: 08-21-2023 End: 08-21-2023 ambulatory Jjus Quinten Kellyitis Facility:[facility] Start: 08-19-2023 Letter encounter Yesy Covarrubias OT Work Phone: [facility] Start: 07-31-2023 End: 07-31-2023 ambulatory Andsilvana Harp MD Facility: [facility] Start: 07-24-2023 End: 07-24-2023 ambulatory Andrius Norahytautjoanne Harp MD Facility:[facility] Start: 07-20-2023 End: 07-20-2023 Patient encounter procedure DO [place] Work Phone: [facility] [address] Work Phone: Start: 07-20-2023 End: 07-20-2023 ambulatory DO [place] Work Phone: [facility] Work Phone: Start: 07-10-2023 End: 07-10-2023 ambulatory Meet Harp MD Facility:[facility] Start: 06-16-2023 End: 06-17-2023 ambulatory UNKNOWN PROVIDER Facility:[facility] Start: 06-16-2023 End: 06-16-2023 Office outpatient visit 25 minutes Aliza Aguilar MD Work Phone: [address] [facility] Orth[facility] Comment on above: Left hand pain (Prim maurisio Dx) Start: 06-16-2023 End: 06-16-2023 Subsequent hospital visit by physician W150th Op Op X-Ray 1 Work Phone: [address] [facility] [facility] Diag Radiology Comment on above: Left hand pain Start: 02-07-2023 End: 02-08-[address] ATNK [place]KE Facility:[facility] Start: 01-27-2023 End: 01-28-[address] [place] Facility:[facility] Start: 01-23-2023 End: 02-22-2023 ambulatory SHAIKH Eduardo ROSS Facility:[facility] Start: 01-16-2023 Encounter for genera l adult medical examination without abnormal findings DR [place] [facility] Start: 01-12-2023 End: 01-13-[address] TANK [...] 05-09-2022 End: 05-09-2022 ambulatory Adilia Mederos Other [facility] Other Start: 05-09-2022 Office outpatient vi sit [...] hemoglobin Comment on above: Order Comment: FACILITY: [facility] [id number] Performed By: #### C BC/D3, ESRCRP, RHF, URCA #### [facility] [address] [place], [address] Start: 02-28-2024 Esophagogastroduodenoscopy Amita Aguillon Car roll [employer] Work Phone: Start: 02-28-2024 Level i surg [...] Td Vaccines (2 - Td or Tdap) [facility] Start: 06-04-2028 Tetanus vaccination Tetanus (Td or Tdap) [facility] Start: 01-13-2028 Cholesterol [Mass/volume] in Serum or Plasma Cholesterol [facility] Start: 06-12-2025 End: 06-12-2025 Patient encounter procedure 06/12/2025 1:05 PM EDT Office Visit [facility] [address] [place] [address] Ivy Saez [employer] [address] [place] [address] [facility] Start: 02-19-2025 Adult BMI Screening Adult BMI Screening [facility] Start: 02-19-2025 Tobacco Screening Tobacco Screening [facility] Start: 06-26-2024 Pneumococcal Vaccine: 65+ Years (3 of 3 - PPSV23 or PCV20) Pneumococcal Vaccine: 65+ Years (3 of 3 - PPSV23 or PCV20) [facility] Start: 06-11-2024 End: 06-11-2024 Patient encounter procedure 06/11/2024 1:05 PM EDT Office Visit [facility] [address] [place] [address] Ivy Saez APRN-[employer] IN[employer] [address] [place] [address] Arrived [facility] Comment on above: Arrived Start: 05-28-2024 Patient referral [facility] Work Phone: Start: 05-26-2024 Influenza vaccination [facility] Start: 03-14-2024 End: 03-14-2024 Patient encounter procedure 03/14/2024 11:20 AM EDT Office Visit [facility] [address] [place] [address] Steven Tavera MD [address] [facility] [address] [place] [address] [facility] Start: 03-07-2024 End: 03-07-2024 Patient encounter procedure 03/07/2024 9:00 AM EDT Office Visit [facility] [address] [place] [address] Steven Tavera MD [address] [facility] [address] [place] [address] [facility] Start: 03-03-2024 Adult BMI Screening Adult BMI Screening [facility] Start: 03-03-2024 Tobacco Screening Tobacco Screening [facility] Start: 02-20-2024 End: 02-20-2024 Patient encounter procedure 02/20/2024 10:30 AM EDT Office Visit [facility] [place] [address] Amita Simpson, [employer] DIRECT[employer] [address] [place] [address] [facility] Start: 02-11-2024 Fall Risk Screening Fall Risk Screening [facility] Start: 12-17-2023 COVID-19 Vaccine ( season) COVID-19 Vaccine () [facility] Start: 08-25-2023 End: 08-25-2023 Patient encounter procedure 08/25/2023 11:30 AM EST Office Visit [address] [facility] [address] [address] Aliza Aguilar MD [address] [place] [address] [facility] Start: 07-20-2023 XR pre/post mri xray XR pre/post mri xray [facility] Start: 07-20-2023 [facility] Start: 07-20-2023 MR Wrist - left WO contrast [facility] Start: 07-20-2023 MRI of left wrist MR wrist LT wo con [facility] Start: 07-20-2023 MR Hand - left WO contrast [facility] Start: 07-20-2023 MRI of left hand MR hand LT wo con [facility] Start: 06-25-2023 Influenza vaccination Influenza Vaccine (#1) [facility] Start: 06-16-2023 End: 06-16-2024 MR Wrist - left WO contrast MR WRIST LEFT W/O Imaging Routine Left hand pain Expected: 06/16/2023, Expires: 06/16/2024 [facility] Work Phone: Comment on above: Expected: 06/16/2023, Expires: Start: 05-26-2023 COVID-19 Vaccine () COVID-19 Vaccine () [facility] Start: 05-26-2023 Influenza vaccination Influenza Vaccine (#1) [facility] Start: 06-25-2022 Influenza vaccination Influenza Vaccine (#1) [facility] Start: 06-08-2022 COVID-19 Vaccine (4 - Booster for Pfizer series) COVID-19 Vaccine (4 - Booster for Pfizer series) [facility] Start: 2019 RSV vaccine (optional 60+ [...] 1989 Screening for malignant neoplasm of cervix [facility] Start: 02-11-1980 Screening for malignant neoplasm of cervix Pap Smear [facility] Start: 1977 Adult BMI Follow Up Plan Adult BMI Follow Up Plan [facility] Start: 1977 Hepatitis C screening Hepatitis C Antibody [facility] Start: 1974 HIV screening [facility] Start: 1971 Depression Screening Depression Screening [facility] Start: 1959 COVID-19 Vaccine ( formulation) COVID-19 Vaccine ( formulation) [facility] Start: 1959 Screening for malignant neoplasm of colon [facility] End: 02-19-2025 Esophagogastroduodenoscopy EGD GI Routine Dysphagia, unspecified type 1 Occurrences starting 02/20/2024 until 02/19/2025 [facility] Work Phone: Comment on above: 1 Occurrences starting 02/20/2024 until 02/19/2025 Patient referral [facility] Work Phone: Immunizations Immunization Date Immunization Notes Care Provider Fa cilitonya 08-11-2023 influenza, injectabl e, quadrivalent, preservative free Aliza Aguilar MD Work Phone: [facility] 08-11-2023 Respiratory syncytia l virus (RSV), vaccine, bivalent, protein subunit RSV prefusion F, diluent reconstituted, 0.5 mL, preservative free (JAS=831) Aliza Aguilar MD Work Phone: [facility] 08-11-2023 influenza virus vacc ine, unspecified formulation [facility]mita Simpson [facility] Work Phone: [facility] 06-18-2022 influenza, injectabl e, quadrivalent, preservative free Aliza Aguilar MD Work Phone: [facility] 06-18-2022 influenza virus vacc ine, unspecified formulation Aliza Aguilar MD Work Phone: [facility] 02-05-2022 Pfizer Monovalent (1 2+ yrs) SARS-COV-2 (COVID-19) vaccine, mRNA, spike protein, LNP, pres. free, 30 mcg/0.3mL dose, betito-sucrose (UEB=565) Aliza Aguilar MD Work Phone: [facility] 08-11-2021 influenza, injectabl e, quadrivalent, preservative free Yesy Marci OT Work Phone: [facility] 08-11-2021 influenza virus vacc ine, unspecified formulation Yesy Marci OT Work Phone: [facility] 07-24-2020 zoster vaccine recombinant Yesy Marci OT Work Phone: [facility] 07-11-2020 Influenza, injectabl e, Madin Christal Canine Kidney, preservative free, quadrivalent Yesy Marci OT Work Phone: [facility] 04-18-2020 zoster vaccine recombinant Yesy Marci OT Work Phone: [facility] 08-28-2019 Influenza, injectabl e, Madin Christal Canine Kidney, preservative free, quadrivalent Yesy Marci OT Work Phone: [facility] 07-01-2019 influenza, high dose seasonal, preservative-free Yesy Marci OT Work Phone: [facility] 06-25-2019 pneumococcal polysaccharide vaccine, 23 valent Yesy Marci OT Work Phone: [facility] 07-06-2018 influenza, injectabl e, quadrivalent, contains preservative Yesy Marci OT Work Phone: [facility] 06-04-2018 tetanus toxoid, redu karen diphtheria toxoid, and acellular pertussis vaccine, adsorbed Yesy Marci OT Work Phone: [facility] 08-19-2017 influenza, injectabl e, quadrivalent, preservative free Yesy Marci OT Work Phone: [facility] 08-09-2017 influenza, injectabl e, quadrivalent, contains preservative Yesy Marci OT Work Phone: [facility] 08-01-2016 influenza, injectabl e, quadrivalent, preservative free Yesy Marci OT Work Phone: [facility] 07-11-2015 influenza, injectabl e, madin christal canine kidney, preservative free Yesy Marci OT Work Phone: [facility] 07-11-2015 pneumococcal conjuga te vaccine, 13 valent Yesy Marci OT Work Phone: [facility] 08-13-2009 novel influenza-H1N1 -09, preservative-free, injectable Yesy Marci OT Work Phone: [facility] 07-17-2009 influenza virus vacc ine, unspecified formulation Yesy Marci OT Work Phone: [facility] 08-15-2008 influenza virus vacc ine, unspecified formulation Yesy Marci OT Work Phone: [facility] Payers Date Payer Category Payer Self-pay [id number] 2018 Unknown [id number] 2010 Medicare [id number] [id number] [id number] 1959 Blue Cross Blue Shield [id number] [id number] 1959 Medicare [id number] 2.16.840.1.606270.19 1959 Unknown [id number] 2.16.840.1.647958.3.579.2.593 1959 Unknown [id number] 2.16.840.1.582102.3.579.2.593 1959 Unknown [id number] 2.16.840.1.606063.3.579.2.593 1959 Unknown [id number] 2.16.840.1.290546.3.579.2.593 1959 Unknown [id number] 2.16.840.1.963510.3.579.2.593 1959 Unknown [id number] 2.16.840.1.294285.3.579.2.593 1959 Unknown [id number] 2.16.840.1.991286.3.579.2.593 1959 Unknown [id number] 2.16.840.1.460939.3.579.2.593 1959 Unknown [id number] 2.16.840.1.566117.3.579.2.593 1959 Unknown [id number] 2.16.840.1.027950.3.579.2.593 1959 Unknown [id number] 2.16.840.1.632383.3.579.2.593 1959 Unknown [id number] 2.16.840.1.102159.3.579.2.593 1959 Unknown [id number] 2.16.840.1.467471.3.579.2.593 1959 Unknown [id number] 2.16.840.1.998935.3.579.2.593 1959 Unknown [id number] 2.16.840.1.803429.3.579.2.593 1959 Unknown [id number] 2.16.840.1.245190.3.579.2.593 1959 Unknown [id number] 2.16.840.1.860470.3.579.2.593 1959 Unknown [id number] 2.16.840.1.632107.3.579.2.593 1959 Unknown [id number] 2.16.840.1.183251.3.579.2.593 1959 Unknown [id number] 2.16.840.1.396213.3.579.2.593 1959 Unknown [id number] 2.16.840.1.628987.3.579.2.732 1959 Unknown [id number] 2.16.840.1.829027.3.579.2.732 1959 Unknown [id number] 2.16.840.1.631100.3.579.2.732 1959 Unknown [id number] 2.16.840.1.481991.3.579.2.1286 1959 Unknown [id number] 2.16.840.1.752518.3.579.2.1286 1959 Unknown [id number] 2.16.840.1.683988.3.579.2.196 1959 Unknown [id number] 2.16.840.1.802348.3.579.2.196 1959 Unknown [id number] 2.16.840.1.931857.3.579.2.196 1959 Unknown [id number] 2.16.840.1.609427.3.579.2.196 1959 Unknown [id number] 2.16.840.1.361933.3.579.2. 1959 Unknown [id number] 2.16.840.1.004170.3.579.2. 1959 Unknown [id number] 2.16.840.1.425649.3.579.2. 1959 Unknown [id number] 2.16.840.1.313847.3.579.2. 1959 Unknown [id number] 2.16.840.1.845249.3.579.2. 1959 Unknown [id number] 2.16.840.1.672997.3.579.2.196 1959 Unknown [id number] 2.16.840.1.393530.3.579.2.1259 Medicare Medicare Nonpatient [id number] Unknown [id number] 2.16.840.1.130949.3.579.2.531 Unknown [id number] 2.16.840.1.396326.3.579.2.531 Social History Date Type Detail Facility Unknown if ever smoked [facility] Other Start: 11-05-2020 End: 06-11-2024 Sex Assigned At [employer] Other Start: 05-31-2019 End: 02-20-2024 Tobacco smoking status [facility] Ex-smoker [facility] History of tobacco use Current smoker [facility] Start: 05-31-2019 End: 02-20-2024 Tobacco use and exposure Smokeless tobacco non-user [facility] Start: 04-07-2020 Alcohol intake Lifetime non-d han (finding) [facility] Start: 07-09-2019 History SDOH Alcohol Frequency 1 [facility] Start: 1960 Sex Assigned At Not on file [facility] Start: 1960 Sex Assigned At Female F [facility] Start: 05-22-2023 [facility] Start: 11-05-2020 End: 06-11-2024 History of Social function [facility] History of tobacco use Cigarette Smoker [facility] Start: 02-20-2024 End: 03-14-2024 Alcoholic beverage intake Ex-drinker (finding) [facility] Childcare Unknown [facility] Medical Equipment Procedure Code Equipment Code Equipment Origin al Text Equipment Identifier Dates Ghent Suture Mi escrow clerk Corkscrew Ea1 [id number] - [id number] Start: 07-22-2019 Clinical Notes 06-22-2021 to 06-11-2024 Ivy Saez APRN-[facility] - 06/11/2024 1:05 PM EDTAssessment & Plan [...] skin exam documented in this encounter [facility] 03-14-2024 Evaluation + Plan note Associated Problem(s): Varicose veins of both legs with edema Compression stockings leg elevation exercise. [facility] 03-14-2024 Miscellaneous Notes Associated Problem(s): Varicose veins of both legs with edema Compression stockings leg elevation exercise. [email or web address] History of Present illness Narrative Images [...] mg total) by mouth in the morning. eapqwrdegl-oytcgohsttote-pqnf (FIORICET, ESGIC) 50-300-40 mg per capsule Take 1 capsule by mouth as needed. cholecalciferol, vitamin D3, 2,000 units tablet Take 1 tablet (2,000 Units total) by mouth in the morning. cyanocobalamin (VITAMIN B-12) 1,000 mcg/mL injection cyclobenzaprine (FLEXERIL) 10 mg tablet Take 1 tablet (10 mg total) by mouth 3 (three) times a day as needed. cpnbklzosdn-wyzffhtht-xkpovdtq (TRELEGY ELLIPTA) 200-62.5-25 mcg blister with device Inhale 1 puff once daily. fremanezumab-vfrm ([employer] AUTOINJECTOR) 225 mg/1.5 mL Inject 1.5 mL [...] kidney disease) COPD (chronic obstructive pulmonary disease) ([facility] [place]) Deep vein thrombosis ([facility] [place]) Depression Diabetes mellitus ([facility] [place]) GERD (gastroesophageal reflux disease) History of DVT (deep vein thrombosis) 2005;2007 HSV infection Hypertension Hypokalemia Hypothyroidism Insomnia Irritable bowel syndrome with constipation Migraines Osteopenia PAD (peripheral artery disease) ([facility] [place]) PVD (peripheral vascular disease) ([facility] [place]) Past Surgical History: Past [...] Steven Tavera MD, BOB, RPVI, FSVS, FACS [facility] [employer] This note was created with the assistance of a speech recognition program. While intending to generate a timely document that accurately reflects the content of the visit, no guarantee can be provided that every grammatical or spelling mistake has been or will be identified or corrected. Thank you for your understanding. documented in this encounter [facility] 03-04-2024 Miscellaneous Notes ----- Message from Aliza Spencer DO sent at 03/02/2024 11:23 AM EDT ----- Please let patient know that she has gastritis and esophagitis and she was already taking a proton pump inhibitor twice daily and I believe I added sucralfate 1 g p.o. a.c. and HS to her regimen as prescribed at the [facility]. Make sure that is true. Otherwise she [...] no further questions. documented in this encounter [email or web address] 03-04-2024 Telephone encounter Note ----- Message from Aliza Spencer DO sent at 03/02/2024 11:23 AM EDT ----- Please let patient know that she has gastritis and esophagitis and she was already taking a proton pump inhibitor twice daily and I believe I added sucralfate 1 g p.o. a.c. and HS to her regimen as prescribed at the [facility]. Make sure that is true. Otherwise she may follow up p.r.n.. ThanksDr. Rasheed [facility] Telephone encounter Note Verified patient is taking PPI and Sucralfate. Patient asked if we received the pathology results for the polyp that was biopsied in patient's stomach. Informed patient that I would clarify with Dr. Spencer and give her a call back. [facility] 03-04-2024 Telephone encounter Note Images from the original note were not included. Message Received: Today Aliza Spencer, DO Sylwia Lopez CMA Fundic gland polyp which is benign and very common. It is nothing to worry about. Dr. Rasheed [facility] 03-04-2024 Telephone encounter Note Spoke with patient regarding polyp. Patient verbally understood with no further questions. [facility] 02-20-2024 History of Present illness Narrative Images [...] kidney disease) COPD (chronic obstructive pulmonary disease) ([facility] [place]) Deep vein thrombosis ([facility] [place]) Depression Diabetes mellitus ([facility] [place]) GERD (gastroesophageal reflux disease) History of DVT (deep vein thrombosis) 2005;2007 HSV infection Hypertension Hypokalemia Hypothyroidism Insomnia Irritable bowel syndrome with constipation Migraines Osteopenia PAD (peripheral artery disease) ([facility] [place] [facility]) PVD (peripheral vascular disease) ([facility] [place]) Past Surgical History: Procedure [...] mouth in the morning., Disp: , Rfl: vcsykduvpr-mdrlfngmlvzcv-lqxr (FIORICET, ESGIC) 50-300-40 mg per capsule, Take [...] a day as needed., Disp: , Rfl: gjzurutvmjt-tpqupufxb-qullktfm (TRELEGY ELLIPTA) 200-62.5-25 mcg blister with device, [...] Referring and communicating with other health child care center administrator Dysphagia, unspecified type [R13.10] AMITA SIMPSON, [place] DIRECTOR-FIRE INVESTIGATION LIEUTENANT [facility] [place] This note was created with the assistance of a speech recognition program. While intending to generate a timely document that accurately reflects the content of the visit, no guarantee can be provided that every grammatical or spelling mistake has been or will be identified or corrected. Thank you for your understanding. SHASTA Taylor 02/20/24 1058 documented in this encounter [facility] 02-06-2024 Miscellaneous Notes Called Newton regarding the dysphagia referral that our office received from Dr. Lake, I left a message on her voicemail to call the office back to schedule an appointment. Newton called the office back and we scheduled her an appointment on 02/20/2024. documented in this encounter [facility] 02-06-2024 Telephone encounter Note Called Newton regarding the dysphagia referral that our office received from Dr. Lake, I left a message on her voicemail to call the office back to schedule an appointment. [facility] 02-06-2024 Telephone encounter Note Newton called the office back and we scheduled her an appointment on 02/20/2024. [facility] 08-25-2023 History of Present illness Narrative CC: Left hand and wrist pain Follow up after MRI done at [facility]. Patient Office Note or Post OP Note Name:Madan Perry Date: 08/25/2023 CC: left wrist pain at [facility] area No chief complaint on [...] Injection Procedure.formerly [facility] 08/25/2023 [id number] Madan M Dionna The patient requested an [...] applied. documented in this encounter [facility] 06-16-2023 Note Addended by: ALIZA AGUILAR on: 06/16/2023 11:34 AM Modules accepted: Orders [facility] 06-16-2023 Miscellaneous Notes Addended by: ALIZA AGUILAR on: 06/16/2023 11:34 AM Modules accepted: Orders documented in this encounter [facility] 06-16-2023 History of Present illness Narrative [...] coumadin. documented in this encounter [facility] 05-09-2022 Evaluation note Encounter Date Diagnosis [...] Xray that was ordered outpatient by PCP [facility] Other 08-10-2022 NotePROCEDURE: XR FOOT RT MIN 3 VIEWS COMPARISON: None. HISTORY: Pain in right foot FINDINGS: BONES:No fracture, acute abnormality, or significant arthropathy. Mild enthesopathic spurring of the calcaneus at the Achilles insertion SOFT TISSUES:Negative. No visible soft tissue swelling. EFFUSION:None visible. OTHER: Negative. IMPRESSION: No acute abnormality Electronically authenticated by: MARTINEZ HARVEY Date: 2022-05-04 16:22[facility]10[facility]27[facility]21 Evaluation note* Encounter Date Diagnosis Assessment Notes Treatment Notes Treatment Clinical Notes Jun, Swelling of left elbow (ICD-10 - M25.422) Jun, Other Patient refe rred to the ER due to swelling, ecchymosis, pain of her left elbow with no known injury. It is felt the patient needs blood work to evaluate [facility] Other 09-28-2021 Evaluation note* Encounter Date Diagnosis Assessment Notes Treatment Notes Treatment Clinical Notes May, Bee sting, undetermined intent, initial encounter (ICD-10 - T63.444A) May continue Xyzal and Benadryl as directed. [facility] Other Evaluation note* Diagnosis Left hand pain- Primary Pain in limb Left hand pain Pain in limb [facility] Left hand pain Pain in limb [facility] Work Phone: evaluation note* Diagnosis Hand arthritis- Primary Unspecified arthropathy, hand [facility]* Diagnosis Onset Date Resolution Status Thoracic back pain acute [facility] Work Phone: evaluation note* Diagnosis Dermatofibroma- Primary Benign neoplasm of skin, site unspecified Angioma of skin Lentigines Garcia angioma Other nonthrombocytopenic purpura (CMS/HCC) documented in this encounter [facility]* Diagnosis Dysphagia, unspecified type [...] second t roseann Hospitalization History see above [facility] Other Hospital Discharge instructionsAmbulatory Orders* Referral to Speech/PT/OT (PT/OT/SP) Location: None [facility] Work Phone: InstructionsNot on filedocumented in this [...] Diagnoses Left hand pain Aliza Aguilar MD [address] [place] [address] Referral ID Status Reason Start Date Expiration Date Visits Requested Visits Authorized [id number] Authorized Patient Preference 06/16/2023 06/16/2024 3 3 Comments Near home, [place], [place] Specialty Diagnoses / Procedures Referred By Randi cardona Referred To Contact Radiology Diagnoses Left hand pain Procedures MR WRIST LEFT W/O Aliza Aguilar MD [address] [place] [address] [facility] MRI [address] [place] [address] Referral ID Status Reason Start Date Expiration Date V isits Requested Visits Authorized [id number] Authorized 06/16/2023 06/15/2024 1 1 Specialty Diagnoses / Procedures Referred By Randi t Referred To Contact Radiology Diagnoses Left hand pain Procedures XR HAND LEFT 3 VIEWS [facility] [address] [place], [place] [id number] [facility] DIAGNOSTIC RADIOLOGY [address] [place] [phone] Referral ID Status Reason Start Date Expiration Date Visits Re quested Visits Authorized [id number] Closed 06/16/2023 06/15/2024 1 1 Chief Complaint and Reason for Visit Chief Complaint median nerve karel krista Chief Complaint Unknown Chief Complaint Unknown DISC DEGENERATION-THORACIC AREA Chief Complaint DISC DEGENERATION-TH ORACIC AREA review MRI, F/u after PT Reason for Visit Thoracic back pain Additional Source Comments INFORMATION SOURCE (unrecogn ized section and content) DATE CREATED AUTHOR 05/27/2021 [facility] DATE CREATED AUTHOR AUTHOR'S ORGANIZ ATION 03/03/2023 [facility] DATE CREATED AUTHOR AUTHOR'S ORGANIZ ATION 08/28/2023 [facility] DATE CREATED AUTHOR AUTHOR'S ORGANIZ ATION 02/29/2024 [facility] DATE CREATED AUTHOR AUTHOR'S ORGANIZ ATION 03/16/2024 [facility] DATE CREATED AUTHOR AUTHOR'S ORGANIZ ATION 05/24/2024 [facility] DATE CREATED AUTHOR AUTHOR'S ORGANIZ ATION 06/13/2024 [facility] DATE CREATED AUTHOR AUTHOR'S ORGANIZ ATION 10/03/2024 [facility] REASON FOR VISIT (unrecogniz ed section and content) Reason Comments Hand/finger symptoms Specialty Diagnoses / Procedures Referred By Avelac t Referred To Contact Radiology Diagnoses Left hand pain Procedures XR HAND LEFT 3 VIEWS [facility] [address] [place], [place] [id number] [facility] DIAGNOSTIC RADIOLOGY [address] [place] [address] Referral ID Status Reason Start Date Expiration Date Visits Re quested Visits Authorized [id number] Closed 06/16/2023 06/15/2024 1 1 Reason Comments Hand/finger symptoms Reason Comments Skin Check Suspicious Skin Lesion Reason Comments Other Dysphagia, referred by Dr. Lake Reason Comments Pain and swelling of lower extremity, un specified laterality 1 year follow up thorascic Back Pain Care Teams (unrecognized sec tion and content) Pickle Water Pump Operator Relationship Specialty Start Date End Date Yesy Covarrubias OT [address] [place] [address] [place] [address] Occupational Therapist Occupational Therapy 06/30/20 Aliza Aguilar MD [address] [place] [address] Physician Orthopaedic Hand Service 06/30/20 Pickle Water Pump Operator Relationship Specialty Start Date End Date Yesy Covarrubias OT [address] [place] [address] Occupational Therapist Occupational Therapy 06/30/20 Aliza Aguilar MD [address] [place] [address] Physician Orthopaedic Hand Service 06/30/20 Pickle Water Pump Operator Relationship Specialty Start Date End Date Yesy Covarrubias OT [address] [place] [address] Occupational Therapist Occupational Therapy 06/30/20 Aliza Aguilar MD [address] [place] [address] Physician Orthopaedic Hand Service 06/30/20 Team Status: Active Member Role Status Dates Tank Lake DO Primary Care Provider Active Team Status: Inactive Member Role Status Dates Tank Lake DO Primary Care Provider Active Aliza Aguilar Attending Provider Active Pickle Water Pump Operator Relationship Specialty Start Date End Date Yesy Covarrubias OT [address] [place] [address] Occupational Therapist Occupational Therapy 06/30/20 Aliza Aguilar MD [address] [place] [address] Physician Orthopaedic Hand Service 06/30/20 Pickle Water Pump Operator Relationship Specialty Start Date End Date Yesy Covarrubias OT [address] [place] [address] Occupational Therapist Occupational Therapy 06/30/20 Aliza Aguilar MD [address] [place] [phone] Physician Orthopaedic Hand Service 06/30/20 Team Status: [...] June 27, 2024 End: June 27, 2024 Pickle Water Pump Operator Relationship Specialty Start Date End Date Tank Lake DO [address] [place] [address] PCP - General Family Medicine 03/30/20 Pickle Water Pump Operator Relationship Specialty Start Date End Date Tank Lake DO [address] [place] [address] PCP - General Family Medicine 03/30/20 Pickle Water Pump Operator Relationship Specialty Start Date End Date Tank Lake DO [address] [place] [address] PCP - General Family Medicine 03/30/20 Pickle Water Pump Operator Relationship Specialty Start Date End Date Tank Lake DO [address] [place] [address] PCP - General Family Medicine 03/30/20 Pickle Water Pump Operator Relationship Specialty Start Date End Date Tank Lake DO [address] [place] [address] PCP - General Family Medicine 03/30/20 Pickle Water Pump Operator Relationship Specialty Start Date End Date Tank Lake DO [address] [place] [address] PCP - General Family Medicine 03/30/20 Goals [...] BE BASED ON THE PRIMARY CLINICAL RECORDS. [employer] provides no warranty or guarantee of the accuracy or completeness of information in this document.
[2024-12-24 11:46] LABS: Basophils Absolute Auto 0.1 10^3/uL (0.0-0.1); Basophils Percent Auto 1.2 % (0.2-2.0); Eosinophils Absolute Auto 0.2 10^3/uL (0.0-0.7); Eosinophils Percent Auto 2.6 % (0.9-7.0); Hematocrit 40.2 % (36.0-48.0); Hemoglobin 13.3 g/dL (12.0-16.0); Immature Granulocytes Abs Auto 0.01 10^3/uL (0.00-0.03); Immature Granulocytes Pct Auto 0.2 % (0.0-0.5); Lymphocytes Absolute Auto 0.9 10^3/uL (1.2-3.8); Lymphocytes Percent Auto 16.2 % (20.5-60.0); Mean Corpuscular HGB Conc 33.1 g/dL (29.9-35.2); Mean Corpuscular Hemoglobin 29.6 pg (26.7-34.0); Mean Corpuscular Volume 89.5 fL (81.0-99.0); Monocytes Absolute Auto 0.6 10^3/uL (0.3-0.8); Monocytes Percent Auto 10.5 % (1.7-12.0); Neutrophils Percent Auto 69.3 % (43.0-75.0); Platelet Count 339 10^3/uL (150-450); Red Blood Count 4.49 10^6/uL (4.20-5.40); Red Cell Distribution Width 13.5 % (11.0-15.0); White Blood Count 5.7 10^3/uL (4.0-11.0)
[2024-12-24 12:05] LABS: Alanine Aminotransferase 33 U/L (14-59); Albumin Globulin Ratio 0.8; Albumin Level 3.3 g/dL (3.4-5.0); Alkaline Phosphatase 109 U/L (46-116); Anion Gap 12.7; Aspartate Amino Transferase 21 U/L (15-37); BUN Creatinine Ratio 9.5; Bilirubin Total 0.3 mg/dL (0.2-1.0); Calcium 9.4 mg/dL (8.5-10.1); Carbon Dioxide 28.2 mmol/L (21.0-32.0); Chloride 91 mmol/L (98-107); Estimated GFR (African America >60 (>=60 mL/min/1.73m^2); Estimated GFR (Non-African Ame 59 (>=60 mL/min/1.73m^2); Glucose 94 mg/dL (74-106); Magnesium 1.8 mg/dL (1.8-2.4); Potassium 3.9 mmol/L (3.5-5.1); Sodium 128 mmol/L (136-145); Total Protein 7.3 g/dL (6.4-8.2)
== END 2024-12-25 08:06 | disposition home or self-care (01) ==
LOC: HEMC 07:37
PROVIDERS: PCP Family Medicine; Visit Provider Internal Medicine Hematology & Oncology
DX: Z51.81 Encounter for therapeutic drug level monitoring (principal); Z79.01 Long term (current) use of anticoagulants; D64.9 Anemia, unspecified; D50.9 Iron deficiency anemia, unspecified; K90.9 Intestinal malabsorption, unspecified; Z90.49 Acquired absence of other specified parts of digestive tract; Z90.710 Acquired absence of both cervix and uterus; Z87.891 Personal history of nicotine dependence; K20.90 Esophagitis, unspecified without bleeding; K29.50 Unspecified chronic gastritis without bleeding; R53.1 Weakness; R53.83 Other fatigue
CPT/HCPCS: 36415; 80053; 83735; 85025; 85610; G0463

== ENCOUNTER 2025-01-23 04:51 | Outpatient (RCR) | payer BC, MEDICARE, SELFPAY | END 2025-02-22 07:12 | disposition home or self-care (01) | LOC: MM 04:51 | PROVIDERS: PCP Family Medicine; Visit Provider Internal Medicine | DX: Z51.81 Encounter for therapeutic drug level monitoring (principal); Z79.01 Long term (current) use of anticoagulants | CPT/HCPCS: 85610; G0463 ==

== ENCOUNTER 2025-02-23 07:41 | Outpatient (RCR) | payer BC, MEDICARE, SELFPAY | END 2025-03-20 14:40 | disposition home or self-care (01) | LOC: MM 07:41 | PROVIDERS: PCP Family Medicine; Visit Provider Internal Medicine | DX: Z51.81 Encounter for therapeutic drug level monitoring (principal); Z79.01 Long term (current) use of anticoagulants | CPT/HCPCS: 85610; G0463 ==

== ENCOUNTER 2025-03-25 02:35 | Outpatient (RCR) | payer BC, MEDICARE, SELFPAY | END 2025-04-24 16:37 | disposition home or self-care (01) | LOC: MM 02:35 | PROVIDERS: PCP Family Medicine; Visit Provider Internal Medicine | DX: Z51.81 Encounter for therapeutic drug level monitoring (principal); Z79.01 Long term (current) use of anticoagulants | CPT/HCPCS: 85610; G0463 ==

== ENCOUNTER 2025-04-25 00:37 | Outpatient (RCR) | payer BC, MEDICARE, SELFPAY | END 2025-05-22 12:55 | disposition home or self-care (01) | LOC: MM 00:37 | PROVIDERS: PCP Family Medicine; Visit Provider Internal Medicine | DX: Z51.81 Encounter for therapeutic drug level monitoring (principal); Z79.01 Long term (current) use of anticoagulants | CPT/HCPCS: 85610; G0463 ==

== ENCOUNTER 2025-04-30 12:03 | Outpatient (OUT) | payer BC, MEDICARE, SELFPAY ==
--- OUTSIDE RECORDS SUMMARY | 2025-03-20 06:18 | XMS_ITS ---
Author Organization [facility] [place] Address [address] [place] [address] Care Team Providers Care Night Shift Supervisor Name Role Phone Robb Phelpsel Primary Care Provider REASON FOR VISIT mammo order and med clairification Encounters Encounter Location Date Provider Diagnosis [facility] [address] [place] [address] 03/20/2025 Tank Phelps Screening mammogram for breast cancer Z12.31 Assessments Encounter Date Diagnosis (ICD Code) Assessment Notes Treatment Notes Treatment Clinical Notes Section Notes 03/20/2025 Screening mammogram for breast cancer (ICD-10 - Z12.31) Plan Of Treatment Pending Test Test Name Order Date MAMM SCREEN BILAT TU 3D GLOBAL* 2024 Next Appt Details Provider Name:Jacqueline Camacho , 05/06/2025 01:00:00 PM, [address] [place], [address], Progress Notes * Amita PERRYDOB:1959 (65 yo F)Acc No.[id number]:03/20/2025 Patient: Amita CHANG :1960 A ge:65 Y S ex:Female Address:[address], [place], [address] Subjective: * Chief Complaints: * M ammo order and med clairification * Medical History: * Surgical History: * Hospitalization/Major Diagno stic Procedure: * Medications: Objective: * Vitals: * Physical Examination: Assessment: * Assessment: 1. S creening mammogram for breast cancer - Z12.31 (Primary) Plan: * Treatment: * Procedure Codes: * true * Date: Generated for Hardy quintero/Ann/Carolynitting on: 0 04/30/2025 12:08 PM EDT
--- OUTSIDE RECORDS SUMMARY | 2025-04-16 04:45 | XMS_ITS ---
Author Organization [facility] [place] Address [address] [place] [address] Care Team Providers Care Railcar Carpenter Name Role Phone Tank Phelps Primary Care Provider [phone] Allergies Allergen (clinical drug ingredient) Drug/Non Drug Allergy documented on EMR Reaction Allergy Type Onset Date Status ciprofloxacin Cipro rash Drug Allergy Act annamaria erythromycin Erythromycin Base oral irritation Drug Allergy Active Iodine hives Drug Allergy Active Keflex other Drug Allergy Active acetaminophen / oxycodone Percocet vomiting Drug Allergy Active doxycycline Doxycycline itching Drug Allergy Act annamaria Latex Latex skin irritation Allergy Acti ve Penicillin anaphylaxis Drug Allergy Acti ve REASON FOR VISIT breast issue/pain Medications Medication SIG (Take, Route, Frequency, Duration) Notes Start Date End Date Status Furosemide 20 MG 1 tablet Orally daily prn edema for 7 days 04/16/2025 Active Magnesium 400 MG 1 tablet Orally qhs Unknown Refresh 1.4-0.6 % as directed Ophthalmic otc Unknown Meclizine HCl 12.5 MG 1 tablet as needed for dizziness Orally every 12 hrs for 30 days prn 02/02/2023 Unknown PreserVision AREDS otc U nknown Warfarin Sodium 2 MG 1 tablet Orally daily as needed 1 or 2mg 02/23/2024 Active Fluconazole 200 MG 1 tablet Orally daily prn for 7 days 02/06/2025 Not-Taking Vitamin D3 otc Active Clotrimazole-Betamethasone 1-0.05 % 1 application Externally Twice a day prn for 30 days 06/13/2022 Unknown hydroCHLOROthiazide 12.5 MG 1 tablet in the morning Orally Once a day Unknown Viibryd 40 MG 1 tablet with food Orally Once a day for 30 days 01/06/2023 Active Topiramate 50 MG 1 tablet Orally Once a day for 90 days 11/22/2024 Active Trelegy Ellipta 200 mcg 200 mcg/62.5 mcg/ 25 mcg 1 puff Inhalation Once a day for 30 days Active Sudafed otc Active tiZANidine HCl 4 MG 1 to 2 tablets Orally tid prn for 30 days 12/28/2023 Active Nystatin 756379 UNIT/GM 1 application Externally Twice a day prn for 30 days 10/02/2024 Active Omeprazole 40 MG 1 capsule 30 minutes before morning meal Orally bid for 30 days 10/12/2023 Active Ozempic (0.25 or 0.5 MG/DOSE) 2 MG/3ML as directed Subcutaneous Active Sodium Chloride 1 GM 1 tablet Orally once daily 06/26/2023 Active Spironolactone 25 MG 1 tablet Orally Once a day for 30 days 03/31/2025 Active Montelukast Sodium 10 MG 1 tablet Orally Once a day for 90 days Active NIFEdipine 10 MG 1 capsule Orally daily for 90 days 11/20/2023 Active Lisinopril 5 MG 2 tablets Orally Once a day Active Melatonin otc 10mg Active Linzess 145 MCG 1 capsule at least 30 minutes before the first meal of the day on an empty stomach Orally Once a day for 30 days 07/14/2023 Active Ketoconazole 2 % 1 application Externally bid prn for 30 days 03/19/2025 Active Levothyroxine Sodium 125 MCG 1 tablet in the morning on an empty stomach Orally Once a day for 90 days Active Klor-Con M10 10 MEQ 2 tablets Orally tid 02/09/2023 Active Levocetirizine Dihydrochloride 5 MG 1 tablet in the evening Orally Once a day Active Lidocaine 5 % 1 patch remove after 12 hours Externally Once a day Active hydrOXYzine HCl 25 MG 1 tablet at bedtim e Orally prn for 30 days Active hydroCHLOROthiazide 25 MG 1 tablet Orall y Once a day 09/02/2024 Active HYDROcodone-Acetaminophen 5-325 MG 1 tablet Orally qid prn 02/21/2025 Active Fluticasone Propionate 50 MCG/ACT 2 sprays each nostril daily for 30 days 01/22/2025 Active Folic Acid 1 MG 1 tablet Orally Once a day for 90 days 06/08/2024 Active Cyanocobalamin 1000 MCG/ML 1 ml Injectio n g8eaual for 30 days Active Cyclobenzaprine HCl 10 MG 1 tablet Orall y tid prn for 30 days 09/02/2024 Active Vvkpgdqfrg-LFLD-Qtpdpwov 50-300-40 MG 1 capsule as needed Orally q6 hours prn for 30 days 03/19/2025 Active Fluconazole 100 MG 1 tablet Orally daily for 7 days 04/16/2025 Active Flovent HFA Active ARIPiprazole 10 MG 1 tablet Orally Once a day 01/12/2023 Active Atorvastatin Calcium 10 MG 1 tablet Oral ly Once a day for 90 days Active ALPRAZolam 0.25 MG 1 tablet Orally daily prn anxiety for 30 days 10/17/2024 Active Amitriptyline HCl 100 MG 1 tablet at bed time Orally Once a day for 90 days Active Biotin Active Acyclovir 400 MG 1 tablet Orally daily for 30 days Active Ajovy 225 MG/1.5ML 225mg Subcutaneous qmonthly 01/20/2023 Active Albuterol Sulfate HFA 108 (90 Base) MCG/ACT 2 puffs Inhalation q6 hours prn for 30 days 10/12/2023 Active Social History Tobacco Use: Social History Observation Description Date Details (start date - stop date) Former Smoker NA - 09/25/2016 Tobacco Use/Smoking Question Answer Notes Patient is a former smoker When did you stop smoking? 09/25/2016 Vital Signs Blood pressure systolic 118 mm Hg 04/16/20 25 Blood pressure diastolic 78 mm Hg 025 Heart Rate 110 /min 04/16/2025 Respiratory Rate 14 /min 04/16/2025 Height 63.5 in 04/16/2025 Weight 142.6 lbs 04/16/2025 BMI 24.86 kg/m2 04/16/2025 Oximetry 97 % 04/16/2025 Encounters Encounter Location Date Provider Diagnosis [address] [address] 04/16/2025 Tank Phelps Localized edema R60. 0 ; Encounter for screening mammogram for malignant neoplasm of breast Z12.31 and Other sites of candidiasis B37.89 Assessments Encounter Date Diagnosis (ICD Code) Assessment Notes Treatment Notes Treatment Clinical Notes Section Notes 04/16/2025 Localized edema (ICD-10 - R60.0) 04/16/2025 Encounter for screening mammogram for malignant neoplasm of breast (ICD-10 - Z12.31) 04/16/2025 Other sites of candidiasis (ICD-10 - B37.89) Plan Of Treatment Medication Medication Name Sig Start Date Stop Date Notes Furosemide 20 MG 1 tablet Orally laura y prn edema for 7 days 04/16/2025 Fluconazole 100 MG 1 tablet Orally daily for 7 days 2024 Pending Test Test Name Order Date MAMM SCREEN BILAT TU 3D GLOBAL* 2024 Next Appt Details Provider Name:Jacqueline Camacho , 05/06/2025 01:00:00 PM, [address] [place], [address], Progress Notes * Amita PERRYDOB:1959 (65 yo F)Acc No.[id number]:04/16/2025 UNLOCKED PROGRESS NOTE Established Patient: Amita CHANG Provider: Abdifatah Phelps DO :1960 A ge:65 Y S ex:Female Date:04/16/2025 Address:[address] [place], [place] [id number] Check In:08:39 AM ESTCheck O ut:09:28 AM EST Subjective: * Chief Complaints: * 1 . Breast issue/pain. * HPI: G eneral: Patient presents today for breast issues/pain.-MV - - - - - - - - - rash under L breast x months waxes and wanes in how bad it gets tried nystop powder on ketoconazole cream - helps a little better than the powder no f/c no nipple discharge - - - - - - uses DANELLE hose for LE edema - still gets on/off - trace to 1+ +b/l LE varicosities aldactone added at last visit for LE edema along with hctz no change in edema no SOB/cough/wheeze INR last week 2.0 occ on/off L lateral breast pain. * ROS: G eneral/Constitutional: Significant change in weight d enies. E xercise Intolerance d enies. N ight sweats d enies. F ever d enies. E yes: Dry eyes D enies. V ision changes d enies. ? E NMT: Sore Throat d enies. N ose Bleeds d enies. D ifficulty hearing d enies. E ar pain d enies. N ose/sinus problems d enies. S noring d enies. B leeding gums d enies. D ry mouth d enies. M outh ulcers denies. O ral abnormalities d enies. T eeth problems d enies. C ardiovascular: Shortness of Breath w/Walking d enies. S hortness of Breath w/lying flat d enies. A rm pain on exertion d enies. C hest pain d enies.?Heart murmur d enies. P alpitations d enies. R espiratory: Coughing up blood d enies. C ough d enies. S hortness of breath d enies. W heezing d enies. G astrointestinal: Change in appetite d enies. V omiting blood d enies. A bdominal pain d enies. C onstipation d enies. D iarrhea d enies. V omiting d enies. G enitourinary: Dysuria/Increased Frequency d enies. H ematuria d enies. I ncontinence d enies. D ifficulty urinating d enies. M usculoskeletal: Swelling in the extremities d enies. A rthralgias/joint pain D enies. B ack pain d enies. W eakness of muscles d enies. M uscle aches d enies. S kin: Jaundice D enies. M ole(s) d enies. R india d enies. N eurologic: Dizziness d enies. L oss of consciousness d enies.?Numbness d enies. W eakness d enies. H eadache d enies. S eizures d enies. P sychiatric: Alcohol abuse d enies. F eeling safe in relationship?denies. D epression d enies. A nxiety d enies. S leep Disturbances d enies. E ndocrine: Fatigue d enies. H ematologic/Lymphatic: Swollen Glands d enies. B ruising d enies. ? A llergy/Immunology: Runny nose d enies. S inus pressure d enies. F requent sneezing d enies. H rebeka d enies. I tching d enies. * Medical History: A llergic rhinitis, Anticoagulation, Migraines, h/o DVT, HTN, Barretts, Colitis, Ckd-3, DM-2, Depression, T DDD, B12 deficiency, Insomnia, GERD, Hypothyroidism, Osteopenia, Hyperlipidemia, Hypokalemia, COPD, Lumbar spondylosis, recurrent genital HSV, IBS-C, PVD/PAD. * Surgical History: E sophagogastroduodenoscopy-Dr Spencer 05/13/2020, Appendectomy , Cholecystectomy , hernia repair with mesh-ventral , carpal tunnel release , hysterctomy with BSO , delivery , Colonoscopy-normal - repeat in 5 years 04/2020, Colonoscopy-repeat in 5 years 05/2016, IVC Filter 2007, Bladder suspension , right hand surgery 04/06/2020. * Family History: F ather: , CVA/HTN. M other: , lung cancer/pancreas cancer/DM. S ister(s): crohns,ovarian cancer. * Social History: T obacco Use: T obacco Use/Smoking P atient is a f ormer smoker W hen did you stop smoking? 0 09/25/2016 * Medications: T aking Acyclovir 400 MG Tablet 1 tablet Orally daily , Taking Ajovy(Fremanezumab- vfrm) 225 MG/1.5ML Solution Auto-injector 225mg Subcutaneous qmonthly , Taking Albuterol Sulfate HFA 108 (90 Base) MCG/ACT Aerosol Solution 2 puffs Inhalation q6 hours prn , Taking ALPRAZolam 0.25 MG Tablet 1 tablet Orally daily prn anxiety , Taking Amitriptyline HCl 100 MG Tablet 1 tablet at bedtime Orally Once a day , Taking ARIPiprazole 10 MG Tablet 1 tablet Orally Once a day , Taking Atorvastatin Calcium 10 MG Tablet 1 tablet Orally Once a day , Taking Biotin , Taking Vtwrwwnvbs-XQHY-Kgjfznri 50-300-40 MG Capsule 1 capsule as needed Orally q6 hours prn , Taking Cyanocobalamin 1000 MCG/ML Solution 1 ml Injection [id number] , Taking Cyclobenzaprine HCl 10 MG Tablet 1 tablet Orally tid prn , Taking Flovent HFA , Taking Fluticasone Propionate 50 MCG/ACT Suspension 2 sprays each nostril daily , Taking Folic Acid 1 MG Tablet 1 tablet Orally Once a day , Taking hydroCHLOROthiazide 25 MG Tablet 1 tablet Orally Once a day , Taking HYDROcodone-Acetaminophen 5-325 MG Tablet 1 tablet Orally qid prn , Taking hydrOXYzine HCl 25 MG Tablet 1 tablet at bedtime Orally prn , Taking Ketoconazole 2 % Cream 1 application Externally bid prn , Taking Klor-Con M10(Potassium Chloride Odalis ER) 10 MEQ Tablet Extended Release 2 tablets Orally tid , Taking Levocetirizine Dihydrochloride 5 MG Tablet 1 tablet in the evening Orally Once a day , Taking Levothyroxine Sodium 125 MCG Tablet 1 tablet in the morning on an empty stomach Orally Once a day , Taking Lidocaine 5 % Patch 1 patch remove after 12 hours Externally Once a day , Taking Linzess(linaCLOtide) 145 MCG Capsule 1 capsule at least 30 minutes before the first meal of the day on an empty stomach Orally Once a day , Taking Lisinopril 5 MG Tablet 2 tablets Orally Once a day , Taking Melatonin , Notes to Pharmacist: otc 10mg, Taking Montelukast Sodium 10 MG Tablet 1 tablet Orally Once a day , Taking NIFEdipine 10 MG Capsule 1 capsule Orally daily , Taking Nystatin 872029 UNIT/GM Powder 1 application Externally Twice a day prn , Taking Omeprazole 40 MG Capsule Delayed Release 1 capsule 30 minutes before morning meal Orally bid , Taking Ozempic (0.25 or 0.5 MG/DOSE)(Semaglutide(0.25 or 0.5MG/DOS)) 2 MG/3ML Solution Pen-injector as directed Subcutaneous , Taking Sodium Chloride 1 GM Tablet 1 tablet Orally once daily , Taking Spironolactone 25 MG Tablet 1 tablet Orally Once a day , Taking Sudafed , Notes to Pharmacist: otc, Taking tiZANidine HCl 4 MG Tablet 1 to 2 tablets Orally tid prn , Taking Topiramate 50 MG Tablet 1 tablet Orally Once a day , Taking Trelegy Ellipta 200 mcg 200 mcg/62.5 mcg/ 25 mcg Aerosol Power Breath Activated 1 puff Inhalation Once a day , Taking Viibryd(Vilazodone HCl) 40 MG Tablet 1 tablet with food Orally Once a day , Taking Vitamin D3 , Notes to Pharmacist: otc, Taking Warfarin Sodium 2 MG Tablet 1 tablet Orally daily as needed , Notes to Pharmacist: 1 or 2mg, Not-Taking/PRN Fluconazole 200 MG Tablet 1 tablet Orally daily prn , Unknown Clotrimazole-Betamethasone 1- 0.05 % Cream 1 application Externally Twice a day prn , Unknown hydroCHLOROthiazide 12.5 MG Tablet 1 tablet in the morning Orally Once a day , Unknown Magnesium 400 MG Tablet 1 tablet Orally qhs , Unknown Meclizine HCl 12.5 MG Tablet 1 tablet as needed for dizziness Orally every 12 hrs , Notes to Pharmacist: prn, Unknown PreserVision AREDS , Notes to Pharmacist: otc, Unknown Refresh(Polyvinyl Alcohol-Povidone PF) 1.4- 0.6 % Solution as directed Ophthalmic , Notes to Pharmacist: otc, Medication List reviewed and reconciled with the patient * Allergies: C ipro: rash, Doxycycline: itching, Erythromycin Base: oral irritation, Iodine: hives, Keflex: other, Latex: skin irritation, Penicillin: anaphylaxis - Criticality High, Percocet: vomiting. Objective: * Vitals: W t:142.6lbs, Ht: 63.5 in, BP:118/78mm Hg, HR:110/min, RR:14/min, BMI:24.86Index, Oxygen sat %:97%, Ht-cm: 161.29 cm, Wt-k.68 kg. * Examination: G eneral Examination: GENERAL APPEARANCE: h ealthy Appearing , well nourished , well developed Level of distress: NAD, a mbulating normally. ENMT: n o lesions on external ear, EACs clear, TMs clear, no hearing loss, no lesions on external ears, nares patent, nasal passages clear, no sinus tenderness, no nasal discharge, no mouth or lip ulcers, no bleeding gums, moist mucous membranes, no erythema, no exudates. HEAD: n ormocephalic, atraumatic. EYES: n on-injected, no discharge, no pallor, PERRLA , EOMI, lens clear, sclera non- icteric, peripheral vision grossly intact, acuity grossly intact. LUNGS: n o dyspnea, breath sounds normal , good air movement, CTA except as noted, no wheezing, no rales/crackles, no rhonchi. CARDIO: n ot displaced, RRR, S1, S2 normal , no murmurs, rubs, gallops , no carotid bruits, normal throughout. ABDOMEN: n ormal bowel sounds , soft, non tender, not distended, no guarding, no rebound tenderness, no masses, no CVA tenderness, liver non tender, no hepatomegaly. BACK: n ormal curvature. MUSCULOSKELETAL: n ormal motor strength, normal tone, normal movement of all extremities, no bony abnormalities, no contractures, no malalignment, no tenderness, no cyanosis, no edema, no varicosities. SKIN: + very mild irritation and erythema under L breast - mostly in fold between her breast and her chest wall, no lesions, no ulcer, no abnormal nevi, no induration, no nodules, good turgor, no jaundice. EXTREMITIES: No edema. NEUROLOGIC: n ormal gait, normal station, cranial nerves grossly intact, sensation grossly intact, DTRs 2+ bilaterally throughout, no tremor. PSYCH: j udgement and insight good, active and alert, normal mood, normal affect. NECK/THYROID: N lisset supple, trachea midline, no masses, FROM, no cervical LAD, no supraclavicular LAD, no axillary LAD, no inguinal LAD, no enlargement, non-tender, no nodules. Assessment: * Assessment: 1. L ocalized edema - R60.0 (Primary) 2 . E ncounter for screening mammogram for malignant neoplasm of breast - Z12.31 3 . O ther sites of candidiasis - B37.89 Plan: * Treatment: 2. E ncounter for screening mammogram for malignant neoplasm of breast I maging: MAMM SCREEN BILAT TU 3D GLOBAL* 3.?Other sites of candidiasis? Start Fluconazole Tablet, 100 MG, 1 tablet, Orally, daily, 7 days, 7 Tablet, Refills 0.?? * * Electronic signature of Robb Phelps DO, [phone] on 04/30/2025 at 12:08 PM EDT Sign off status: Pending Visit Status: Flo CRUZ (Check Out) * Provider: Abdifatah Phelps DO Date: 0 04/16/2025 Generated for Hardy quintero/Ann/Carolynitting on: 0 04/30/2025 12:08 PM EDT History and Physical Notes * Examination Category Sub-Category Detail Notes Category Not es General Examination GENERAL APPEARANCE: healthy Appearing , well nourished , well developed Level of distress: NAD, ambulating normally EYES: non-injected, no dis charge, no pallor, PERRLA , EOMI, lens clear, sclera non-icteric, peripheral vision grossly intact, acuity grossly intact CARDIO: not displaced, RRR, S1, S2 normal , no murmurs, rubs, gallops , no carotid bruits, normal throughout LUNGS: no dyspnea, breath s ounds normal , good air movement, CTA except as noted, no wheezing, no rales/crackles, no rhonchi ABDOMEN: normal bowel sounds , soft, non tender, not distended, no guarding, no rebound tenderness, no masses, no CVA tenderness, liver non tender, no hepatomegaly NEUROLOGIC: normal gait, normal station, cranial nerves grossly intact, sensation grossly intact, DTRs 2+ bilaterally throughout, no tremor SKIN: +very mild irritatio n and erythema under L breast - mostly in fold between her breast and her chest wall, no lesions, no ulcer, no abnormal nevi, no induration, no nodules, good turgor, no jaundice EXTREMITIES: No edema BACK: normal curvature MUSCULOSKELETAL: normal motor strengt h, normal tone, normal movement of all extremities, no bony abnormalities, no contractures, no malalignment, no tenderness, no cyanosis, no edema, no varicosities PSYCH: judgement and insigh t good, active and alert, normal mood, normal affect ENMT: no lesions on supply chain tech al ear, EACs clear, TMs clear, no hearing loss, no lesions on external ears, nares patent, nasal passages clear, no sinus tenderness, no nasal discharge, no mouth or lip ulcers, no bleeding gums, moist mucous membranes, no erythema, no exudates HEAD: normocephalic, atrau matic NECK/THYROID: Neck supple, trachea midline, no masses, FROM, no cervical LAD, no supraclavicular LAD, no axillary LAD, no inguinal LAD, no enlargement, non-tender, no nodules
--- OUTSIDE RECORDS SUMMARY | 2025-04-30 12:09 | XMS_ITS | Clinical Summary ---
Author Organization [facility] Address [address], [address] [place] [address] Care Team Providers Care Channel Supervisor Name Role Phone Tank Phelps MD Primary Care Provider Allergies Active Allergy Reactions Criticality Noted Date Comments Cephalexin 09/03/2013 Unknown Reaction Ciprofloxacin Other (See Comments) 09/03/2013 IV form caused a red line up arm. Propoxyphene N-Acetaminophen Other (See Comments) 09/03/2013 Nose itching Iodides Hives 10/31/2013 Latex Rash Low 09/03/2013 Morphine Nausea And Vomiting Low 10/21/2013 Penicillins 09/03/2013 Unknown reaction, so long ago Oxycodone-Acetaminophen Nausea And Vomiting Low 06/2013 Sulfa Antibiotics 09/03/2013 Unknown reaction Adhesive Tape Rash Low 09/03/2013 Medications orphenadrine (NORFLEX) 100 MG tablet Take 100 mg by mouth 2 times daily. Active levothyroxine (SYNTHROID) 100 MCG tablet Take 100 mcg by mouth Daily. Active DULoxetine (CYMBALTA) 60 MG capsule Take 60 mg by mouth daily. Active DULoxetine (CYMBALTA) 30 MG capsule Take 30 mg by mouth nightly. Active omeprazole (PRILOSEC) 20 MG capsule Take 20 mg by mouth 2 times daily. Active hydrochlorothiaz carlos (HYDRODIURIL) 25 MG tablet Take 25 mg by mouth daily. Active eszopiclone (ESZOPICLONE) 3 MG TABS Take 3 mg by mouth nightly. Active warfarin (COUMADIN) 2.5 MG tablet Take 2.5 mg by mouth Daily. Active acyclovir (ZOVIRAX) 800 MG tablet Take 400 mg by mouth 2 times daily. Active Probiotic Product (PROBIOTIC DAILY PO) Take 1 tablet by mouth nightly. 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 11/14/2013 Migraine Blood clotting disorder Colitis Social History Tobacco Use Types Packs/Day Years Used Date Smoking Tobacco: Every Day Cigarettes Smokeless Tobacco: Never Alcohol Use Standard Drinks/Week Comments Yes 0 (1 standard drink = 0.6 oz pur e alcohol) rarely Comments No Sex and Gender Information Value Date Recorded Sex Assigned at Not on file Legal Sex Female 8:23 PM EST Gender Identity Not on file Sexual Orientation Not on file Last Filed Vital Signs Vital Sign Reading Time Taken Comments Blood Pressure 142/82 11/14/2013 3:38 PM EST Pulse 73 10/31/2013 10:20 AM EST Temperature 37 C (98.6 F) 10/31/2013 9:50 AM EST Respiratory Rate 18 11/14/2013 3:38 PM EST Oxygen Saturation 95% 10/31/2013 9:45 AM EST Inhaled Oxygen Concentration - - Weight 62.6 kg (138 lb) 11/14/2013 3:38 PM EST Height 160 cm (5' 3 ) 10/31/2013 7:12 AM EST Body Mass Index 24.45 10/31/2013 7:12 AM EST Plan of Treatment Not on file Advance Directives * Full Code (Latest Code Status on File) Date Activated Date Inactivated Comments 10/31/2013 7:07 AM 10/31/2013 1:54 PM Care Teams Channel Supervisor Relationship Specialty Start Date End Date Tank Phelps MD [address] [place] [id number] PCP - General 10/23/13
--- OUTSIDE RECORDS SUMMARY | 2025-04-30 12:09 | XMS_ITS | Encounter Summary ---
Author Organization [employer] [facility] Address [id number] [address] [place] [address] Care Team Providers Care Mystery Shopper Name Role Phone Tank Phelps DO Primary Care Provider Encounter Details Date Type Department Care Team (Late st Contact Info) Description 02/09/2023 Orders Only [facility] [address] [place] [address] Ref Prov, [place] [address] Social History Tobacco Use Types Packs/Day Years Used Date Smoking Tobacco: Former Cigarettes Smokeless Tobacco: Never Alcohol Use Standard Drinks/Week Comments Not Currently 0 (1 standard drink = 0.6 oz pur e alcohol) Childcare Answer Date Recorded Childcare Unknown 03/06/2019 Employment Answer Date Recorded Employment Unknown 03/06/2019 Purpose - Life Answer Date Recorded Purpose and direction in life Unknown Comments Unknown Sex and Gender Information Value Date Recorded Sex Assigned at Not on file Legal Sex Female 12:06 PM EDT Gender Identity Not on file Sexual Orientation Not on file documented as of this encounter Plan of Treatment Not on file documented as of this encounter Procedures Procedure Name Priority Date/Time Associated Diagnosis Comments ANKLE BRACHIAL INDEX Routine 02/09/2023 documented in this encounter Results * Ankle Brachial Index (02/09/2023) us Not In System Ref Prov PROCEDURE/MINOR SURGICAL ORDERABLES Final Result MANUALLY TRANSCRIBED RESULTS documented in this encounter Visit Diagnoses Not on filedocumented in this encounter Care Teams Mystery Shopper Relationship Specialty Start Date End Date Tank Phelps DO [address] [place] [address] PCP - General Family Medicine 03/30/20 documented as of this encounter
--- OUTSIDE RECORDS SUMMARY | 2025-04-30 12:09 | XMS_ITS | Encounter Summary ---
Author Organization [facility] Address [address], [address] [place] [address] Care Team Providers Care Airplane Electrical Repairer Name Role Phone Tank Phelps MD Primary Care Provider [phone] Encounter Details Date Type Department Care Team (Late st Contact Info) Description 10/21/2013 PAT Telephone [facility] PRE ADMIT [address] [place] [address] Melia Beltrán, RN Social History Tobacco Use Types Packs/Day Years Used Date Smoking Tobacco: Every Day Cigarettes Alcohol Use Standard Drinks/Week Comments Yes 0 (1 standard drink = 0.6 oz pur e alcohol) rarely Comments No Sex and Gender Information Value Date Recorded Sex Assigned at Not on file Legal Sex Female 8:23 PM EST Gender Identity Not on file Sexual Orientation Not on file documented as of this encounter Last Filed Vital Signs Vital Sign Reading Time Taken Comments Blood Pressure - - Pulse - - Temperature - - Respiratory Rate - - Oxygen Saturation - - Inhaled Oxygen Concentration - - Weight 63.5 kg (140 lb) 10/21/2013 2:01 PM EST Height 160 cm (5' 3 ) 10/21/2013 2:01 PM EST Body Mass Index 24.8 10/21/2013 2:01 PM EST documented in this encounter Plan of Treatment Not on file documented as of this encounter Visit Diagnoses Not on filedocumented in this encounter Care Teams Airplane Electrical Repairer Relationship Specialty Start Date End Date Tank Phelps MD [address] [place], [place] [id number] PCP - General 10/23/13 documented as of this encounter
--- OUTSIDE RECORDS SUMMARY | 2025-04-30 12:09 | XMS_ITS | Clinical Summary ---
Author Organization [employer] s [employer] Address [facility] [id number] [address] [place] [address] Care Team Providers Care Gas Station Supervisor Name Role Phone MattieTank Pal QUINONEZ Primary Care Provider [phone] Allergies Active Allergy Reactions Criticality Noted Date Comments Adhesive Rash Low 09/03/2013 Adhesive Tape-Silicones Rash Low 09/03/2013 Cephalexin Other (See Comments) Low 12/21/2005 Unknown Reaction Doxycycline Itching Medium 01/24/2020 Erythromycin Other (See Comments) 12/21/2005 Rash to tongue Erythromycin Base Other (See Comments) Low 01/24/20 20 Iodides Hives Low 10/31/2013 Iodinated Contrast Media 12/21/2005 Latex Other (See Comments),Rash Low 12/21/2005 Morphine Nausea And Vomiting Low 10/21/2013 Oxycodone-Acetaminophe n Nausea And Vomiting,Vomiting Medium 12/21/2005 Penicillins Anaphylaxis High 12/21/2005 Unknown reaction, so long ago Unknown reaction, so long ago Quinolones Other (See Comments),Rash Low 12/21/2005 Other reaction(s): Respiratory Problems IV form caused a red line up arm. IV form caused a red line up arm. Sulfa (Sulfonamide Antibiotics) 12/21/2005 Medications acyclovir (ZOVIRAX) 400 mg tablet Take 1 tablet (400 mg total) by mouth 2 (two) times a day as needed. 0 Active cyanocobalamin (VITAMIN B-12) 1,000 mcg/mL injection 0 Active cyclobenzaprine (FLEXERIL) 10 mg tablet Take 1 tablet (10 mg total) by mouth 3 (three) times a day as needed. 0 Active butalbital-acet aminophen-caff (FIORICET, ESGIC) 50-300-40 mg per capsule Take 1 capsule by mouth as needed. 0 Active HYDROcodone-radha taminophen (NORCO) 5-325 mg per tablet as needed. 0 Active montelukast (SINGULAIR) 10 mg tablet Take 1 tablet (10 mg total) by mouth in the morning. 0 Active warfarin (COUMADIN) 2 mg tablet Take 1 tablet (2 mg total) by mouth. 0 Active potassium chloride (KLOR-CON M) 20 MEQ CR tablet Take 1 tablet (20 mEq total) by mouth in the morning and 1 tablet (20 mEq total) before bedtime. 0 Active omeprazole (PriLOSEC) 20 mg capsule Take 2 capsules (40 mg total) by mouth in the morning. Active lisinopriL (PRINIVIL,ZESTR IL) 5 mg tablet Take 1 tablet (5 mg total) by mouth in the morning. 3 Active atorvastatin (LIPITOR) 10 mg tablet Take 1 tablet (10 mg total) by mouth in the morning. 3 Active VIIBRYD 40 mg tablet Take 1 tablet (40 mg total) by mouth daily with breakfast. 3 Active amitriptyline (ELAVIL) 100 mg tablet Take 1 tablet (100 mg total) by mouth once daily at bedtime. 3 Active levocetirizine (XYZAL) 5 mg tablet Take 1 tablet (5 mg total) by mouth every evening. Active tiZANidine (ZANAFLEX) 4 mg tablet Take 1 tablet (4 mg total) by mouth every 6 (six) hours as needed for muscle spasms. Active fluticasone-ume clidin-vilanter (TRELEGY ELLIPTA) 200-62.5-25 mcg blister with device Inhale 1 puff once daily. Active NIFEdipine (PROCARDIA) 10 mg capsule Take 1 capsule (10 mg total) by mouth once daily. Active albuterol (PROVENTIL HFA;VENTOLIN HFA) 90 mcg/actuation inhaler Inhale 2 puffs every 6 (six) hours as needed for wheezing or shortness of breath. Active zinc gluconate 50 mg tablet Take 1 tablet (50 mg total) by mouth in the morning. Active melatonin 10 mg tablet Take 10 mg by mouth nightly. Active vit A/vit C/vit E/zinc/copper (PRESERVISION AREDS ORAL) Take by mouth daily. Active magnesium oxide 400 mg magnesium tablet Take 400 mg by mouth once daily. Active cholecalciferol , vitamin D3, 2,000 units tablet Take 1 tablet (2,000 Units total) by mouth in the morning. Active fremanezumab-vf rm (Piccsy AUTOINJECTOR) 225 mg/1.5 mL Inject 1.5 mL (225 mg total) under the skin. Active ARIPiprazole (ABILIFY) 10 mg tablet Take 1 tablet (10 mg total) by mouth in the morning. Active hydrOXYzine (ATARAX) 25 mg tablet Take 1 tablet (25 mg total) by mouth 3 (three) times a day as needed for itching. Active linaCLOtide (LINZESS) 72 mcg capsule Take 1 capsule (72 mcg total) by mouth every morning before breakfast. Active levothyroxine (SYNTHROID, LEVOTHROID) 125 MCG tablet Take 1 tablet (125 mcg total) by mouth in the morning. Active Active Problems Problem Noted Date Diagnosed Date Varicose veins of both legs with edema Assessment & Plan (03/14/2024 11:25 AM EDT): Compression stockings leg elevation exercise. Family History Medical History Relation Name Comments Alcohol abuse Father Cerebral aneurysm Father Hypertension Father Breast cancer Mother Cancer Mother Diabetes Mother Heart disease Mother Lung cancer Mother Pancreatic cancer Mother Relation Name Status Comments Father (Age 60) Mother (Age 76) Social History Tobacco Use Types Packs/Day Years Used Date Smoking Tobacco: Former Cigarettes Smokeless Tobacco: Never Tobacco Cessation:Counseling Given: Not Answered Alcohol Use Standard Drinks/Week Comments Not Currently 0 (1 standard drink = 0.6 oz pur e alcohol) Childcare Answer Date Recorded Childcare Unknown 03/06/2019 Employment Answer Date Recorded Employment Unknown 03/06/2019 Hunger Screening Answer Date Recorded Within the past 12 months we worried whether our food would run out before we got money to buy more. Never True 03/14/2024 Within the past 12 months th e food we bought just didn't last and we didn't have money to get more. Never True 03/14/2024 Purpose - Life Answer Date Recorded Purpose and direction in life Unknown Comments Unknown Sex and Gender Information Value Date Recorded Sex Assigned at Not on file Legal Sex Female 12:06 PM EDT Gender Identity Not on file Sexual Orientation Not on file Last Filed Vital Signs Vital Sign Reading Time Taken Comments Blood Pressure 108/69 03/14/2024 11:15 AM EDT Pulse 109 03/14/2024 11:15 AM EDT Temperature 36.3 C (97.3 F) 05/20/2020 1:12 PM EDT Respiratory Rate - - Oxygen Saturation - - Inhaled Oxygen Concentration - - Weight 68.5 kg (151 lb) 03/14/2024 11:12 AM EDT Height 162.6 cm (5' 4 ) 03/14/2024 11:12 AM EDT Body Mass Index 25.92 03/14/2024 11:12 AM EDT Plan of Treatment Health Maintenance Due Date Last Done Comments Depression Screening 1971 Fall Risk Screening 02/11/2024 COVID-19 Vaccine (2023-2 5 season) 2024 08/18/2023, 06/18/2022, 02/05/2022, Additional history exists Adult BMI Screening 03/14/2025 03/14/2024 Tobacco Screening 03/14/2025 03/14/2024 Influenza Vaccine 05/26/2025 08/11/2023, , 08/11/2021, Additional history exists DTaP,Tdap and Td Vaccines (2 - Td or Tdap) 06/04/2028 06/04/2018 Zoster (Shingles) Vaccine Completed 2019, 04/18/2020, 04/18/2020 Medical Devices Not on file Insurance MEDICARE Care Teams Gas Station Supervisor Relationship Specialty Start Date End Date Tank Phelps DO [address] [place] [address] PCP - General Family Medicine 03/30/20
--- OUTSIDE RECORDS SUMMARY | 2025-04-30 12:09 | XMS_ITS | Clinical Summary ---
Author Organization [facility] Address [address] [place] [address] Care Team Providers Care Lubrication Servicer Name Role Phone Unavailable Primary Care Provider Unavailabl e Allergies Active Allergy Reactions Criticality Noted Date Comments Acetaminophen GI intolerance 02/01/2008 Cephalexin Unknown Low 12/21/2005 Other Reaction(s): other Unknown Reaction Ciprofloxacin Unknown,Rash Low 12/21/2005 IV form caused a red line up arm. IV form caused a red line up arm. Doxycycline Itching Medium 01/24/2020 Erythromycin Unknown 12/21/2005 Rash to tongue Erythromycin Base Other Low 01/24/2020 Other Reaction(s): oral irritation Iodides Hives Low 10/31/2013 Iodinated Contrast Media 12/21/2005 Latex Other,Rash,Unknown Low 12/21/2005 Other Reaction(s): skin irritation Morphine Nausea And Vomiting,GI intolerance Low 10/21/2013 Other Other,Unknown 12/21/2005 Other Reaction(s): Agitation Novacaine- migraine headaches. NO issues with lidocaine Nose itching Oxycodone Unknown 05/22/2023 Oxycodone-Acetaminophe n Nausea And Vomiting,GI intolerance Medium 12/21/2005 Penicillins Anaphylaxis,Unknown High 12/21/2005 Unknown reaction, so long ago Unknown reaction, so long ago Unknown reaction, so long ago Unknown reaction, so long ago Propoxyphene Other,Unknown 12/21/2005 Itching to nose Nose itching Quinolones Other,Rash,Unknown Low 12/21/2005 Other Reaction(s): Respiratory Problems Other reaction(s): Respiratory Problems IV form caused a red line up arm. IV form caused a red line up arm. Wound Dressing Adhesive Rash Low 09/03/2013 Medications Hydrocortisone Acetate 2.5 % creamIndication s:Lentigines Apply thin layer to affected areas twice a day as needed for flares 30 g 11 05/22/2023 Active Active Problems No known active problems Family History Medical History Relation Name Comments Asthma Brother Non-Hodgkin Lymphoma Brother Hypertension Father Stroke Father Cancer Maternal Grandfather Lung/ L ip Breast cancer Mother Diabetes Mother Arthritis Sister Asthma Sister Melanoma Neg Hx Relation Name Status Comments Brother Father Maternal Grandfather Mother Paternal Grandfather Sister Social History Tobacco Use Types Packs/Day Years Used Date Smoking Tobacco: Never Smokeless Tobacco: Never Tobacco Cessation:Counseling Given: Not Answered Comments Unknown Sex and Gender Information Value Date Recorded Sex Assigned at Not on file Legal Sex Female 7:08 PM EDT Gender Identity Not on file Sexual Orientation Not on file Plan of Treatment Upcoming Encounters Date Type Department Care Team (Late st Contact Info) Description 06/12/2025 1:05 PM EDT Office Visit [facility] [address] [place] [address] Trudy Saez, MAJOR LEAGUE BASEBALL PLAYER-LINTER TENDER [address] [place] [address] Health Maintenance Due Date Last Done Comments CT Colonography 1959 Colonoscopy 1959 Colorectal Cancer Screening 1959 FIT-DNA 1959 FIT 1959 FOBT 1959 Sigmoidoscopy 1959 Mammogram 1999 Pneumococcal Vaccine: 65+ Ye ars (3 of 3 - PCV20 or PCV21) 06/26/2024 06/26/2019, 07/11/2015 Influenza Vaccine (#1) 2025 , 06/18/2022, 08/11/2021, Additional history exists Cervical Cancer Screening Discontinued Pap Smear Discontinued 08/19/2008 HPV/Cotest Discontinued Insurance MEDICARE [facility]
--- OUTSIDE RECORDS SUMMARY | 2025-04-30 12:09 | XMS_ITS | Clinical Summary ---
Author Organization [facility] Address [address] [place], [place] [id number] Care Team Providers Care Law Librarian Name Role Phone Josefina Hayes Primary Care Provider Allergies Active Allergy Reactions Criticality Noted Date Comments Ciprofloxacin 12/21/2005 Propoxyphene N-Acetaminophen 006 Erythromycin 12/21/2005 Contrast Dye 12/21/2005 Cephalexin 12/21/2005 Latex 12/21/2005 Penicillin G 12/21/2005 Oxycodone-Acetaminophen 12/21/2005 Sulfa (Sulfonamide Antibiotics) 11/24 Medications ZYRTEC 10 MG TAB Take one(1) tablet daily. 0 6 Active CYMBALTA 30 MG CAP Take one(1) tablet daily. 0 6 Active SYNTHROID 112 MCG TAB Take one(1) tablet daily. 0 6 Active NEXIUM 40 MG CAP Take one(1) tablet daily. 0 6 Active HYDROCHLOROTHIA ZIDE 25 MG TAB Take 1/2 tablet daily 0 6 Active PRINIVIL 20 MG TAB Take one(1) tablet daily. 0 6 Active BELLAMINE 0.6 MG-40 MG-0.2 MG TAB Take one(1) tablet daily. 0 6 Active COUMADIN 2.5 MG TAB Take as directed 0 6 Active FIORICET 325 MG-40 MG-50 MG TAB as necessary 0 6 Active VICODIN ES 7.5 MG-750 MG TAB as necessary 0 6 Active Active Problems Problem Noted Date Diagnosed Date Phlebitis and thrombophlebitis of unspecified si te 12/22/2005 Phlebitis and thrombophlebitis of iliac vein Immunizations Immunization Administration Dates Next Due influenza vaccine, unspecified formulation 07/17,08/15/2008 Social History Tobacco Use Types Packs/Day Years Used Date Smoking Tobacco: Former Cigarettes 0.5 31 1 - 07/12/2005 Alcohol Use Standard Drinks/Week Comments No 0 (1 standard drink = 0.6 oz pur e alcohol) Comments No Sex and Gender Information Value Date Recorded Sex Assigned at Not on file Legal Sex Female 9:32 AM EST Gender Identity Not on file Sexual Orientation Not on file Last Filed Vital Signs Vital Sign Reading Time Taken Comments Blood Pressure 90/60 12/21/2005 2:57 PM EST faint pulse-difficult to hear (from Extended Vitals) Pulse 88 12/21/2005 2:56 PM EST (from Extended Vitals) Temperature 36.7 C (98.1 F) 12/21/2005 2:45 PM EST Respiratory Rate - - Oxygen Saturation - - Inhaled Oxygen Concentration - - Weight 70 kg (154 lb 5.2 oz) 12/21/2005 2:45 PM EST Height 161.3 cm (5' 3.5 ) 12/21/2005 2: 45 PM EST Body Mass Index 26.91 12/21/2005 2:45 PM EST Plan of Treatment Health Maintenance Due Date Last Done Comments Anxiety Screening 1977 Depression Screening 1977 DTaP,Tdap,Td Vaccine (1 - Tdap) [address] Colonography 02/11/2004 Cologuard (FIT-DNA) 02/11/2004 Colonoscopy 02/11/2004 09/13/1999 Colorectal Cancer Screening 02/11/2004 Diabetes Screening 02/11/2004 Fecal Occult Blood 02/11/2004 Lipid Screening 02/11/2004 Sigmoidoscopy 02/11/2004 Pneumococcal Vaccine: 50+ (1 of 1 - PCV) 2009 Shingrix Vaccine (1 of 2) 2009 Bone Density Screening 02/11/2024 Advance Directive Discussion 09/25/2024 Influenza Vaccine (#1) 2025 07/17/2009, 2007 RSV Vaccine (1 - 1-dose 75+ series) 2034 Hepatitis C Screening Completed 08/24/1999, 999 Procedures Procedure Name Priority Date/Time Associated Diagnosis Comments COLONOSCOPY, GI 09/13/1999 12:00 AM EST HEP REMOTE PANEL BL 08/24/1999 5 :15 PM EST from Last 3 Months or Most Recently Relevant to Health Maintenance Results * COLONOSCOPY, GI (09/13/1999 12:00 AM EST) Supervisor Sewer System DATE: [id number] [facility] Supervisor Sewer System ENDOSCOPIST: [facility] Supervisor Sewer System REFERRING PHYSICIAN: [facility] Supervisor Sewer System PATIENT NAME: DARBY ARNOLD [facility] Supervisor Sewer System DATE: 1960 [facility] Supervisor Sewer System HOSPITAL NO: [id number] [facility] Supervisor Sewer System [facility] Supervisor Sewer System [facility]: [facility] Supervisor Sewer System 1. Two small sessile, non-bleeding polyps at the rectum. Removed with hot [facility] Supervisor Sewer System biopsy. 211.3. [facility] Supervisor Sewer System 2. The colonoscopy was otherwise normal. [facility] Supervisor Sewer System [facility] Supervisor Sewer System INTRODUCTION [facility] Supervisor Sewer System 39 year old female patient presents for an elective colonoscopy. The [facility] Supervisor Sewer System indication for the procedure was abdominal pain. [facility] Supervisor Sewer System [facility] Supervisor Sewer System CONSENT: [facility] Supervisor Sewer System The benefits, risks, and alternatives to the procedure were discussed and [facility] Supervisor Sewer System informed consent was obtained from the patient. [facility] Supervisor Sewer System [facility] Supervisor Sewer System MEDICATIONS: [facility] Supervisor Sewer System - Versed 4 mg IV [facility] Supervisor Sewer System - Demerol 100 mg IV [facility] Supervisor Sewer System [facility] Supervisor Sewer System PROCEDURE: [facility] Supervisor Sewer System The endoscope was passed. [facility] Supervisor Sewer System [facility] Supervisor Sewer System FINDINGS: Two small sessile, non-bleeding polyps were seen at the rectum. [facility] Supervisor Sewer System Hot biopsies was obtained. Photos were taken. [facility] Supervisor Sewer System The colonoscopy was otherwise normal. [facility] Supervisor Sewer System [facility] Supervisor Sewer System COMPLICATIONS: [facility] Supervisor Sewer System There were no complications associated with the procedure. [facility] Supervisor Sewer System [facility] 09/13/1999 [facility] - 09/14/1999 8:28 AM EST Ordered by an unspecified provider. Cc Provider SCHEDULED PROCEDURES Final Resul t Performing Organization Address City/[facility]/ZIP Co de Phone Number [facility] [address] [place] [address] * (ABNORMAL) HEP REMOTE PANEL BL (08/24/1999 5:15 PM EST) HBsAg Positive(A) NEG [facility] Comment: Additional testing for Hepatitis B Surface Antigen Confirmation suggested if clinically indicated. Confirmation is recommended upon the initial detection of Hepatitis B Surface Antigen. Testing may be performed on the same sample if requested through Client Services ([phone]) within seven days. Hep B Core Ab Total Negative NEG [facility] Hep B Surf Ab Qual Negative NEG [facility] Comment: A negative Hepatitis B Surface Antibody is indicative of: 1)no prior exposure to HBV, 2)lack of antibody response to an acute or chronic HBV infection, 3)lack of antibody response to HBV vaccination, or, 4)many years (usually >7-10 years) following a previous antibody response to HBV vaccination or infection. A Hepatitis B Surface Antibody result of > or = 10 mIU/mL implies immunity to HBV. For additional information and guidelines see MMWR 1 990,39(RR-2) 1-, November 03, 1989. Anti-Hepatitis C Negative NEG [facility] Interpretation (Hep Remote Pnl) COMMENT [facility] Comment: These results are consistent with acute or chronic hepatitis B virus infection. Additional testing for Hepatitis Be antigen and Hepatitis Delta Antibody suggested if clinically indicated. Testing may be performed on the same sample if requested through Client Services ([phone]) within seven days. 08/24/1999 5:15 PM EST [facility] - 08/26/1999 8:37 AM EST Ordered by an unspecified provider. Ccf Provider LABORATORY Final Result Performing Organization Address City/[facility]/ZIP Co de Phone Number [facility] [address] [place] [address] from Last 3 Months or Most Recently Relevant to Health Maintenance Insurance [employer] CARD PPO OOS Member Subscriber Plan / Payer (Ef fective 2009-Present) Name:MichaelmelitondaisyDarby Relation to Subscriber:Spouse Name:KVNG PERRY Date of :1961 (Home) Address: [address] [place] [address] Payer ID:[id number] (NAIC) Group ID:Not on file Type:PPO Address: [address] [place] [id number] Care Teams Law Librarian Relationship Specialty Start Date End Date Josefina Hayes [address] [place] [address] [place] [address] PCP - General 01/05/01
--- OUTSIDE RECORDS SUMMARY | 2025-04-30 12:09 | XMS_ITS | Patient Health Record ---
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 DETECTION = 9 IU/ML. URIC ACID Reviewed date:03/07/2025 11:58:07 AM Interpretation: Performing Lab:[facility], [address] [place], [address] Notes/Report: FACILITY: [facility] [id number] URIC ACID 6.1 (2.5 - 6.2) MG/DL SED RATE and CRP Reviewed date:03/07/2025 11:58:07 AM Interpretation: Performing Lab:[facility], [address], [place], [address] [phone] Notes/Report: FACILITY: [facility] [id number] SED RATE WEST. 18 (0 - 25) MM/HR CRP EXTENDED RANGE 8.02 (0.00 - 5.00) MG/L XR Foot LT (3 views) * Reviewed date:03/07/2025 11:19:36 AM Interpretation: Performing Lab: Notes/Report: XR Hand LT (2 views) Reviewed date:01/09/2025 03:49:19 PM Interpretation: Performing Lab: Notes/Report: CBC AUTO DIFF (Not yet revie wed by provider) Interpretation: Performing Lab: Notes/Report: [facility] , White Blood Count 7.6 4.0-11.0 10 3/uL Red Blood Count 4.43 4.20-5.40 10 6/uL Hemoglobin 7.9 12.0-16.0 g/dL Hematocrit 28.4 36.0-48.0 % Mean Corpuscular Volume 64.1 81.0-99.0 fL MICR OCYTOSIS 3+ Mean Corpuscular Hemoglobin 17.8 26.7-34.0 pg Mean Corpuscular HGB Conc 27.8 29.9-35.2 g/dL HYPOCHROMASIA 1+ Red Cell Distribution Width 22.8 11.0-15.0 % ANISOCYTOSIS 3+ Platelet Count 625 150-450 10 3/uL Mean Platelet Volume 8.2 9.5-13.5 fL Neutrophils Percent Auto 77.2 43.0-75.0 % Lymphocytes Percent Auto 11.1 20.5-60.0 % Monocytes Percent Auto 7.9 1.7-12.0 % Eosinophils Percent Auto 2.4 0.9-7.0 % Basophils Percent Auto 1.0 0.2-2.0 % Immature Granulocytes Pct Auto 0.4 0.0-0.5 % Neutrophils Absolute Auto 5.9 1.4-6.5 10 3/uL Lymphocytes Absolute Auto 0.9 1.2-3.8 10 3/uL Monocytes Absolute Auto 0.6 0.3-0.8 10 3/uL Eosinophils Absolute Auto 0.2 0.0-0.7 10 3/uL Basophils Absolute Auto 0.1 0.0-0.1 10 3/uL Immature Granulocytes Abs Auto 0.03 0.00-0.03 10 3/uL Performing Lab: see note - [facility] LB FERRITIN (Not yet reviewed b y provider) Interpretation: Performing Lab: Notes/Report: [facility] , Ferritin 21.0 8.0-252.0 ng/mL Performing Lab: see note - [facility] LB FOLATE (Not yet reviewed by provider) Interpretation: Performing Lab: Notes/Report: [facility] , Folate 23.70 8.60-58.90 ng/mL Performing Lab: see note - [facility] CBC AUTO DIFF (Not yet revie wed by provider) Interpretation: Performing Lab: Notes/Report: [facility] , White Blood Count 9.8 4.0-11.0 10 3/uL Red Blood Count 4.85 4.20-5.40 10 6/uL Hemoglobin 12.3 12.0-16.0 g/dL Hematocrit 40.4 36.0-48.0 % Mean Corpuscular Volume 83.3 81.0-99.0 fL Mean Corpuscular Hemoglobin 25.4 26.7-34.0 pg Mean Corpuscular HGB Conc 30.4 29.9-35.2 g/dL Platelet Count 401 150-450 10 3/uL Mean Platelet Volume 9.8 9.5-13.5 fL Performing Lab: see note - [facility] LB Vitamin B12 (Not yet reviewe d by provider) Interpretation: Performing Lab: Notes/Report: [facility] , Vitamin B12 >1999 232-1245 pg/mL Performed at: - [facility] [id number] Publicity Consultant: Jitendra Dickerson PhD, Phone: [phone] Performing Lab: see note - [facility] LB CBC W MANUAL DIFF & MORPH Reviewed date:03/07/2025 12:00:15 PM Interpretation: Performing Lab:[facility], Formerly [facility], [facility], [place], [address] Notes/Report: FACILITY: [facility] [id number] WBC 5.69 (3.80 - 10.60) x10^3ul RBC 4.97 (4.20 - 5.40) x10^6ul HEMOGLOBIN 13.8 (12.0 - 16.0) G/DL HEMATOCRIT 44.2 (37.0 - 47.0) % MCV 88.9 (81.0 - 99.0) fl MCH 27.8 (27.0 - 33.0) PG MCHC 31.2 (30.0 - 37.0) G/DL PLT 361 (130 - 400) x10^3ul SEGS 61 () % BANDS 2 () % LYMPS 24 () % MONOS 5 () % EOSINOPHIL 7 () % BASOS 1 () % META 0 () % MYELO 0 () % PROMYELOCYTES 0 () % BLASTS 0 () % REACTIVE LYMPH 0 () % IMMATURE GRANS (IG) 0 () % NRBC/100 WBC 0 (0 - 0) ABS NEUTROPHIL 3.47 (1.50 - 7.00) x10^3ul ABS BANDS 0.11 (0.00 - 0.30) x10^3ul ABS LYMPHOCYTE 1.37 (0.96 - 5.40) x10^3ul ABS MONOCYTE 0.28 (0.10 - 1.00) x10^3ul ABS EOSINOPHIL 0.40 (0.00 - 0.40) x10^3ul ABS BASOPHIL 0.06 (0.00 - 0.16) x10^3ul ABS METAMYELOCYTE 0.00 (0.00 - 0.01) x10^3ul ABS PROMYELOCYTE 0.00 (0.00 - 0.01) x10^3ul ABS BLAST 0.00 (0.00 - 0.01) x10^3ul ABS REAC LYMPH 0.00 (0.00 - 0.01) x10^3ul ABS IMMATURE GRANS 0.00 (0.00 - 0.11) x10^3ul ANISOCYTOSIS SL (NONE) MACROCYTES NONE (NONE) MICROCYTES NONE (NONE) POLYCHROMASIA SL (NONE) HYPOCHROMASIA NONE (NONE) POIKILOCYTOSIS SL (NONE) OVALOCYTES NONE (NONE) SCHISTOCYTES NONE (NONE) TARGET CELLS NONE (NONE) RDW-SD 48.4 (37.0 - 49.0) fl ABS MYELOYCYTE 0.00 (0.00 - 0.01) x10^3ul CBC AUTO DIFF (Not yet revie wed by provider) Interpretation: Performing Lab: Notes/Report: [facility] , White Blood Count 6.2 4.0-11.0 10 3/uL Red Blood Count 4.61 4.20-5.40 10 6/uL Hemoglobin 13.6 12.0-16.0 g/dL Hematocrit 40.9 36.0-48.0 % Mean Corpuscular Volume 88.7 81.0-99.0 fL Mean Corpuscular Hemoglobin 29.5 26.7-34.0 pg Mean Corpuscular HGB Conc 33.3 29.9-35.2 g/dL Red Cell Distribution Width 13.6 11.0-15.0 % Platelet Count 401 150-450 10 3/uL Mean Platelet Volume 9.3 9.5-13.5 fL Neutrophils Percent Auto 73.7 43.0-75.0 % Lymphocytes Percent Auto 13.5 20.5-60.0 % Monocytes Percent Auto 10.4 1.7-12.0 % Eosinophils Percent Auto 1.3 0.9-7.0 % Basophils Percent Auto 0.8 0.2-2.0 % Immature Granulocytes Pct Auto 0.3 0.0-0.5 % Neutrophils Absolute Auto 4.6 1.4-6.5 10 3/uL Lymphocytes Absolute Auto 0.8 1.2-3.8 10 3/uL Monocytes Absolute Auto 0.7 0.3-0.8 10 3/uL Eosinophils Absolute Auto 0.1 0.0-0.7 10 3/uL Basophils Absolute Auto 0.1 0.0-0.1 10 3/uL Immature Granulocytes Abs Auto 0.02 0.00-0.03 10 3/uL Performing Lab: see note ML - [facility] LB PROF CHEM 8 (BAS METB) (Not yet reviewed by provider) Interpretation: Performing Lab: Notes/Report: [facility] , Sodium 129 136-145 mmol/L Potassium 2.4 3.5-5.1 mmol/L RESULTS RABAGO D TO ABDULAZIZ MOHAMUD RN Chloride 90 98-107 mmol/L Carbon Dioxide 32.5 21.0-32.0 mmol/L Anion Gap 8.9 Glucose 104 74-106 mg/dL Blood Urea Nitrogen 9.0 7.0-18.0 mg/dL Creatinine 0.91 0.55-1.02 mg/dL Estimated GFR ( Amanda >60 >=60 mL/min/1.73m 2 Estimated GFR (Non- Maribell >60 >=60 mL/min/1.73m 2 BUN Creatinine Ratio 9.9 Calcium 9.0 8.5-10.1 mg/dL Performing Lab: see note ML - [facility] LB Vitamin B12 (Not yet reviewe d by provider) Interpretation: Performing Lab: Notes/Report: [facility] , Vitamin B12 [phone] pg/mL Performed at: [facility] [id number] Publicity Consultant: Jitendra Dickerson PhD, Phone: [phone] Performing Lab: see note - [facility] LB VITAMIN D 25 [place] (Not yet rev iewed by provider) Interpretation: Performing Lab: Notes/Report: [facility] , Vitamin D 71.2 <20 ng/mL Vit D deficient 20-<30 ng/mL Vit D insufficient 30-100 ng/mL Vit D sufficient >100 ng/mL Potential Toxicity Performing Lab: see note - [facility] LB IRON AND TIBC (Not yet revie wed by provider) Interpretation: Performing Lab: Notes/Report: [facility] , Iron 53.0 50.0-170.0 ug/dL Total Iron Binding Capacity 289.0 250.0-450.0 u g/dL Percent Iron Saturation 18.3 Performing Lab: see note ML - [facility] LB FOLATE (Not yet reviewed by provider) Interpretation: Performing Lab: Notes/Report: [facility] , Folate 17.40 8.60-58.90 ng/mL Performing Lab: see note - [facility] LB FERRITIN (Not yet reviewed b y provider) Interpretation: Performing Lab: Notes/Report: [facility] , Ferritin 42.0 8.0-252.0 ng/mL Performing Lab: see note - [facility] LB Manual Differential (Not yet reviewed by provider) Interpretation: Performing Lab: Notes/Report: [facility] , Segmented Neutrophils % Manual 87.0 43.0-75.0 Lymphocytes Percent Manual 7.0 20.5-60.0 % Monocytes Percent Manual 5.0 1.7-12.0 % Eosinophils Percent Manual 1.0 0.9-7.0 % Basophils Percent Manual 0.0 0.2-2.0 % Segmented Neut Absolute Manual 8.52 1.4-6.5 10 3/uL Band Neutrophils Absolute 0.7 0.0-0.3 10 3/uL Lymphocytes Absolute Manual 0.68 1.20-3.80 10 3/uL Monocytes Absolute Manual 0.49 0.30-0.80 10 3/ uL Eosinophils Absolute Manual 0.09 0.00-0.70 10 3/uL Basophils Abs Manual 0.00 0.00-0.10 10 3/uL Anisocytosis 2+ Tear Drop Cells 1+ Ovalocytes 2+ Performing Lab: see note ML - [facility] LB PROF CHEM 8 (BAS METB) (Not yet reviewed by provider) Interpretation: Performing Lab: Notes/Report: [facility] , Sodium 135 136-145 mmol/L Potassium 3.4 3.5-5.1 mmol/L Chloride 98 98-107 mmol/L Carbon Dioxide 27.4 21.0-32.0 mmol/L Anion Gap 13.0 Glucose 100 74-106 mg/dL Blood Urea Nitrogen 7.0 7.0-18.0 mg/dL Creatinine 0.88 0.55-1.02 mg/dL Estimated GFR ( Amanda >60 >=60 mL/min/1.73m 2 Estimated GFR (Non- Maribell >60 >=60 mL/min/1.73m 2 BUN Creatinine Ratio 8.0 Calcium 9.3 8.5-10.1 mg/dL Performing Lab: see note ML - [facility] LB IRON AND TIBC (Not yet revie wed by provider) Interpretation: Performing Lab: Notes/Report: [facility] , Iron 55.0 50.0-170.0 ug/dL Total Iron Binding Capacity 258.0 250.0-450.0 u g/dL Percent Iron Saturation 21.3 Performing Lab: see note ML - [facility] LB FOLATE (Not yet reviewed by provider) Interpretation: Performing Lab: Notes/Report: [facility] , Folate 17.80 8.60-58.90 ng/mL Performing Lab: see note ML - [facility] LB FERRITIN (Not yet reviewed b y provider) Interpretation: Performing Lab: Notes/Report: [facility] , Ferritin 281.0 8.0-252.0 ng/mL Performing Lab: see note - [facility] LB Vitamin B12 (Not yet reviewe d by provider) Interpretation: Performing Lab: Notes/Report: [facility] , Vitamin B12 7838 293-2836 pg/mL Performed at: - [facility] [address] [id number] Publicity Consultant: Jitendra Dickerson PhD, Phone: [phone] Performing Lab: see note - [facility] LB PROF CHEM 8 (BAS METB) (Not yet reviewed by provider) Interpretation: Performing Lab: Notes/Report: [facility] , Sodium 130 136-145 mmol/L Potassium 2.6 3.5-5.1 mmol/L RESULTS RABAGO D TO [facility] Chloride 93 98-107 mmol/L Carbon Dioxide 26.9 21.0-32.0 mmol/L Anion Gap 12.7 Glucose 95 74-106 mg/dL Blood Urea Nitrogen 8.0 7.0-18.0 mg/dL Creatinine 0.90 0.55-1.02 mg/dL Estimated GFR ( Amanda >60 >=60 mL/min/1.73m 2 Estimated GFR (Non- Maribell >60 >=60 mL/min/1.73m 2 BUN Creatinine Ratio 8.9 Calcium 8.8 8.5-10.1 mg/dL Performing Lab: see note - [facility] LB IRON AND TIBC (Not yet revie wed by provider) Interpretation: Performing Lab: Notes/Report: [facility] , Iron 30.0 50.0-170.0 ug/dL Total Iron Binding Capacity 397.0 250.0-450.0 u g/dL Percent Iron Saturation 7.6 Performing Lab: see note - [facility] LB BMP (BASIC MET PANEL - W/GFR ) Reviewed date:04/16/2025 09:28:08 AM Interpretation: Performing Lab:[facility], [address], [place], [address] [phone] Notes/Report: FACILITY: [facility] [id number] GLUCOSE 73 (74 - 106) MG/DL BUN 9 (4 - 25) MG/DL CREATININE, BLOOD 0.57 (0.52 - 1.04) MG/DL SODIUM 131 (137 - 145) MMOL/L POTASSIUM 5.4 (3.5 - 5.1) MMOL/L CHLORIDE 101 (98 - 107) MMOL/L CARBON DIOXIDE 26 (22 - 30) MMOL/L CALCIUM 9.5 (8.6 - 10.6) MG/DL GFR-NON AFRIC-AMER 106.4 (60.0 - 115.8) ML/M1.7 GFR- AMER 128.8 (60.0 - 140.1) ML/M1.7 MAGNESIUM Reviewed date:04/16/2025 09:28:08 AM Interpretation: Performing Lab:[facility], [address] [place], [address] [phone] Notes/Report: FACILITY: [facility] [id number] MAGNESIUM 2.1 (1.6 - 2.3) MG/DL CBC AUTO DIFF Reviewed date:02/21/2025 11:25:03 AM Interpretation: Performing Lab: Notes/Report: [facility] , White Blood Count 5.7 4.0-11.0 10 3/uL Red Blood Count 4.49 4.20-5.40 10 6/uL Hemoglobin 13.3 12.0-16.0 g/dL Hematocrit 40.2 36.0-48.0 % Mean Corpuscular Volume 89.5 81.0-99.0 fL Mean Corpuscular Hemoglobin 29.6 26.7-34.0 pg Mean Corpuscular HGB Conc 33.1 29.9-35.2 g/dL Red Cell Distribution Width 13.5 11.0-15.0 % Platelet Count 339 150-450 10 3/uL Mean Platelet Volume 9.0 9.5-13.5 fL Neutrophils Percent Auto 69.3 43.0-75.0 % Lymphocytes Percent Auto 16.2 20.5-60.0 % Monocytes Percent Auto 10.5 1.7-12.0 % Eosinophils Percent Auto 2.6 0.9-7.0 % Basophils Percent Auto 1.2 0.2-2.0 % Immature Granulocytes Pct Auto 0.2 0.0-0.5 % Neutrophils Absolute Auto 4.0 1.4-6.5 10 3/uL Lymphocytes Absolute Auto 0.9 1.2-3.8 10 3/uL Monocytes Absolute Auto 0.6 0.3-0.8 10 3/uL Eosinophils Absolute Auto 0.2 0.0-0.7 10 3/uL Basophils Absolute Auto 0.1 0.0-0.1 10 3/uL Immature Granulocytes Abs Auto 0.01 0.00-0.03 10 3/uL Performing Lab: see note ML - [facility] LB PROF 14(COMP METB) (Not yet reviewed by provider) Interpretation: Performing Lab: Notes/Report: [facility] , Sodium 128 136-145 mmol/L Potassium 3.9 3.5-5.1 mmol/L Chloride 91 98-107 mmol/L Carbon Dioxide 28.2 21.0-32.0 mmol/L Anion Gap 12.7 Glucose 94 74-106 mg/dL Blood Urea Nitrogen 9.0 7.0-18.0 mg/dL Creatinine 0.95 0.55-1.02 mg/dL Estimated GFR ( Amanda >60 >=60 mL/min/1.73m 2 Estimated GFR (Non- Maribell 59 >=60 mL/min/1.73m 2 BUN Creatinine Ratio 9.5 Calcium 9.4 8.5-10.1 mg/dL Bilirubin Total 0.3 0.2-1.0 mg/dL Aspartate Amino Transferase 21 15-37 U/L Alanine Aminotransferase 33 14-59 U/L Alkaline Phosphatase 109 46-116 U/L Total Protein 7.3 6.4-8.2 g/dL Albumin Level 3.3 3.4-5.0 g/dL Globulin 4.0 Albumin Globulin Ratio 0.8 Performing Lab: see note ML - [facility] LB MAGNESIUM (Not yet reviewed by provider) Interpretation: Performing Lab: Notes/Report: [facility] , Magnesium 1.8 1.8-2.4 mg/dL Performing Lab: see note ML - [facility] LB Reason For Referral Reason anemia - abnormal cb c on 06/03/24 Diagnosis 1 Anemia, unspecified (D64.9) Referral Organization [facility] Referring Provider First Name Tank Referring Provider Last Name Mattie Referring Provider Speciality Family [facility] jovita Referred Organization [facility] [place] Referred Provider Jacqueline Camacho Referred Address [address] [address],[place], [place],[address] Referred Provider Specialty Hematology/O ncology General Notes Tank Phelps 11:56:53 AM >please call pt for apptMattie Daniel A 06/05/2024 11:57:28 AM >pt [facility] office Referral Priority Routine Reason eval and tx T DDD Diagnosis 1 Other intervertebral disc degeneration, 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) Referral Organization [facility] Referring Provider First Name Tank Referring Provider Last Name Mattie Referring Provider Speciality Family [facility] jovita Referred Provider Specialty Physical [facility] Notes Tank Phelps 11:19:27 AM >please call pt for appt Referral Priority Routine Medications Medication SIG (Take, Route, Frequency, Duration) Notes Start Date End Date Status Furosemide 20 MG 1 tablet Orally daily prn edema for 7 days 04/16/2025 Active hydrOXYzine HCl 25 MG 1 tablet at bedtim e Orally prn for 30 days Active Warfarin Sodium 2 MG 1 tablet Orally daily as needed 1 or 2mg 02/23/2024 Active Ketoconazole 2 % 1 application Externally bid prn for 30 days 03/19/2025 Active Fluconazole 200 MG 1 tablet Orally daily prn for 7 days 02/06/2025 Not-Taking hydroCHLOROthiazide 25 MG 1 tablet Orall y Once a day 09/02/2024 Active Viibryd 40 MG 1 tablet with food Orally Once a day for 30 days 01/06/2023 Active HYDROcodone-Acetaminophen 5-325 MG 1 tablet Orally qid prn 02/21/2025 Active Vitamin D3 otc Active Levothyroxine Sodium 125 MCG 1 tablet in the morning on an empty stomach Orally Once a day for 90 days Active Klor-Con M10 10 MEQ 2 tablets Orally tid 02/09/2023 Active Clotrimazole-Betamethasone 1-0.05 % 1 application Externally Twice a day prn for 30 days 06/13/2022 Unknown Levocetirizine Dihydrochloride 5 MG 1 tablet in the evening Orally Once a day Active Spironolactone 25 MG 1 tablet Orally Once a day for 30 days 03/31/2025 Active Fluconazole 100 MG 1 tablet Orally daily for 7 days 04/16/2025 Active Fluticasone Propionate 50 MCG/ACT 2 sprays each nostril daily for 30 days 01/22/2025 Active Topiramate 50 MG 1 tablet Orally Once a day for 90 days 11/22/2024 Active Folic Acid 1 MG 1 tablet Orally Once a day for 90 days 06/08/2024 Active Trelegy Ellipta 200 mcg 200 mcg/62.5 mcg/ 25 mcg 1 puff Inhalation Once a day for 30 days Active Sudafed otc Active Flovent HFA Active tiZANidine HCl 4 MG 1 to 2 tablets Orally tid prn for 30 days 12/28/2023 Active Acyclovir 400 MG 1 tablet Orally daily for 30 days Active ARIPiprazole 10 MG 1 tablet Orally Once a day 01/12/2023 Active Nystatin 814995 UNIT/GM 1 application Externally Twice a day prn for 30 days 10/02/2024 Active Atorvastatin Calcium 10 MG 1 tablet Oral ly Once a day for 90 days Active Omeprazole 40 MG 1 capsule 30 minutes before morning meal Orally bid for 30 days 10/12/2023 Active ALPRAZolam 0.25 MG 1 tablet Orally daily prn anxiety for 30 days 10/17/2024 Active Montelukast Sodium 10 MG 1 tablet Orally Once a day for 90 days Active Amitriptyline HCl 100 MG 1 tablet at bed time Orally Once a day for 90 days Active NIFEdipine 10 MG 1 capsule Orally daily for 90 days 11/20/2023 Active Cyanocobalamin 1000 MCG/ML 1 ml Injectio n [id number] for 30 days Active Cyclobenzaprine HCl 10 MG 1 tablet Orall y tid prn for 30 days 09/02/2024 Active Biotin Active Ozempic (0.25 or 0.5 MG/DOSE) 2 MG/3ML as directed Subcutaneous Active Cwcroheuqs-PWWU-Wphbuldy 50-300-40 MG 1 capsule as needed Orally q6 hours prn for 30 days 03/19/2025 Active Sodium Chloride 1 GM 1 tablet Orally once daily 06/26/2023 Active hydroCHLOROthiazide 12.5 MG 1 tablet in the morning Orally Once a day Unknown Magnesium 400 MG 1 tablet Orally qhs Unknown Ajovy 225 MG/1.5ML 225mg Subcutaneous qmonthly 01/20/2023 Active Lisinopril 5 MG 2 tablets Orally Once a day Active Refresh 1.4-0.6 % as directed Ophthalmic otc Unknown Albuterol Sulfate HFA 108 (90 Base) MCG/ACT 2 puffs Inhalation q6 hours prn for 30 days 10/12/2023 Active Melatonin otc 10mg Active Lidocaine 5 % 1 patch remove after 12 hours Externally Once a day Active Meclizine HCl 12.5 MG 1 tablet as needed for dizziness Orally every 12 hrs for 30 days prn 02/02/2023 Unknown Linzess 145 MCG 1 capsule at least 30 minutes before the first meal of the day on an empty stomach Orally Once a day for 30 days 07/14/2023 Active PreserVision AREDS otc U nknown Immunizations Vaccine Route Administration Date Status Comme nts Aldavo Unknown 08/11/2023 Administered Comirnaty Nuvosun Syringe Pre-Filled 30 mcg/0.3 mL Unknown 08/18/2023 Administered Flu, Fluad (97849) 65 yrs and older, single-dose syringe IM Intramuscular 09/02/2024 Administered Flu, Fluzone (90954) 6 mos+, single-dose syringe/vial ([id number]) Unknown 06/18/2022 Administered Flu, Fluzone (45879) 6 mos+, single-dose syringe/vial ([id number]) Unknown 08/11/2023 Administered Flu, unspecified Unknown 08/11/2021 Administered Pneumococcal (Pneumovax 23) Unknown 06/26/2019 Administered Pneumococcal (Prevnar 13) Unknown 07/11/2015 Administer ed SARS-COV-2 (COVID 19 Pfizer 30mcg/0.3mL) Unknown 06/06/2021 Administered SARS-COV-2 (COVID 19 Pfizer 30mcg/0.3mL) Unknown 06/29/2021 Administered SARS-COV-2 (COVID 19 Pfizer 30mcg/0.3mL), betito sucrose Unknown 02/05/2022 Administered SARS-COV-2 (COVID 19 Pfizer Booster 0.3mL) Unknown 02/03/2022 Administered SARS-COV-2 (COVID 19) bivalent 30 mcg/0.3 ml dose Unknown 06/18/2022 Administered Tdap Unknown 06/04/2018 Administered Zoster (Zostavax) Unknown 04/18/2020 Administered Zoster (Zostavax) Unknown 07/24/2020 Administered Social History Tobacco Use: Social History Observation Description Date Details (start date - stop date) Former Smoker NA - 09/25/2016 Tobacco Use/Smoking Question Answer Notes Patient is a former smoker When did you stop smoking? 09/25/2016 Alcohol Screen (Audit-C) Question Answer Notes Did you have a drink containing alcohol in the p ast year? No Points 0 Interpretation Negative Problems Problem Type SNOMED Code ICD Code Onset Dates Problem Status W/U Status Risk Notes Problem 58113768 Essential (prima ry) hypertension (I10) Active confirmed Problem 42618029 Peripheral vascu lar disease, unspecified (I73.9) Active confirmed Problem 81395655 Iron deficiency anemia, unspecified (D50.9) Active confirmed Problem 791093509 Chronic obstruct annamaria pulmonary disease, unspecified (J44.9) Active confirmed Problem 520407972 Overweight (E66.3) Active confirmed Problem 05249483 Generalized anxi ety disorder (F41.1) Active confirmed Problem 3890226 Primary insomnia (F51.01) Active confirmed Problem 82190988 Other chronic pa in (G89.29) Active confirmed Problem 372343164 Chronic pain syn drome (G89.4) Active confirmed Problem 731745548 Raynaud's syndro me without gangrene (I73.00) Active confirmed Problem 677761491 Venous insuffici ency (chronic) (peripheral) (I87.2) Active confirmed Problem 316906766 Other seasonal a llergic rhinitis (J30.2) Active confirmed Problem 33896419 Other allergic r hinitis (J30.89) Active confirmed Problem 15266443 Allergic rhiniti s, unspecified (J30.9) Active confirmed Problem 752712185 Rosacea, unspeci fied (L71.9) Active confirmed Problem 641911289 Spondylosis with out myelopathy or radiculopathy, lumbar region (M47.816) Active confirmed Problem 562064519 Other interverte bral disc displacement, 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) Active confirmed Problem 49591209 Other interverte bral disc degeneration, 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) Active confirmed Problem 445897009 Paresthesia of s kin (R20.2) Active confirmed Problem 500772718 Other abnormalit ies of gait and mobility (R26.89) Active confirmed Problem 05077150 Other amnesia (R41.3) Active confirmed Problem 35118641 Chronic fatigue, unspecified (R53.82) Active confirmed Problem 173679647 care home (curre nt) use of anticoagulants (Z79.01) Active confirmed Problem 05458351 Anxiety (F41.9) Active confirmed Problem 389759008 Gastroesophageal reflux disease without esophagitis (K21.9) Active confirmed Problem 33079143 Migraine without status migrainosus, not intractable, unspecified migraine type (G43.909) Active confirmed Problem 306755378 Intractable migr perry without aura and without status migrainosus (G43.019) Active confirmed Problem 493773589 Acquired hypothy roidism (E03.9) Active confirmed Problem 295548022 Lumbar spondylol ysis (M43.06) Active confirmed Problem 62789248 Auditory halluci nation (R44.0) Active confirmed Problem 92875049 Night terror (F51.4) Active confirmed Problem 529925881 Pure hypercholesterolemia (E78.00) Active confirmed Problem [id number] Irritable bowel syndrome with constipation (K58.1) Active confirmed Problem [id number] Primary hyperten krista (I10) Active confirmed Problem [id number] Current mild epi sode of major depressive disorder without prior episode (F32.0) Active confirmed Problem [id number] 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) Active confirmed Vital Signs Heart Rate 110 /min 04/16/2025 Respiratory Rate 14 /min 04/16/2025 Oximetry 97 % 04/16/2025 Blood pressure diastolic 78 mm Hg 04/16/2025 Height 63.5 in 04/16/2025 Blood pressure systolic 118 mm Hg 04/16/2025 Weight 142.6 lbs 04/16/2025 BMI 24.86 kg/m2 04/16/2025 Encounters Encounter Location Date Provider Diagnosis [facility] [address] [place] [address] 03/17/2025 Tank Phelps Chronic fatigue, unspecified R53.82 [facility] [address] [place] [address] 03/20/2025 Tank Phelps Screening mammogram for breast cancer Z12.31 [facility] [address] [place] [address] 04/21/2025 Tank Phelps [facility] [address] [place] [address] 11/11/2024 Tank Phelps [facility] [address] [place] [address] 11/27/2024 Tank Phelps Intractable migraine without aura and without status migrainosus G43.019 [facility] [address] [place] [address] 11/29/2024 Tank Phelps [facility] [address] [place] [address] 01/20/2025 Tank Phelps Intractable migraine without aura and without status migrainosus G43.019 [facility] [address] [place] [address] 01/24/2025 Tank Phelps Intractable migraine without aura and without status migrainosus G43.019 [facility] [address] [place] [address] 03/17/2025 Tank Phelps Recurrent genital he rpes simplex A60.00 [facility] [address] [place] [address] 09/19/2024 Tank Phelps Pain in left hand M7 9.642 [facility] [address] [place] [address] 09/26/2024 Tank Phelps [facility] [address] [place] [address] 10/02/2024 Tank Phelps Pure hypercholestero lemia E78.00 [facility] [address] [place] [address] 10/09/2024 Tank Phelps [facility] [address] [place] [address] 10/17/2024 Tank Phelps [facility] [address] [place] [address] 11/11/2024 Tank Phelps Gastroesophageal ref lux disease without esophagitis K21.9 [facility] [address] [place] [address] 06/08/2024 Tank Phelps [facility] [address] [place] [address] 07/25/2024 Tank Phelps [facility] [address] [place] [address] 08/26/2024 Tank Phelps Acquired hypothyroid ism E03.9 [facility] [address] [place] [address] 08/28/2024 Tank Phelps Pain in left foot M7 9.672 [facility] [address] [place] [address] 09/09/2024 Tank Phelps Other intervertebral disc degeneration, 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 [facility] [address] [place] [address] 09/16/2024 Tank Phelps Hypotension, unspeci fied I95.9 [facility] [address] [place] [address] 05/08/2024 Tank Lopezring Migraine without sta tus migrainosus, not intractable, unspecified migraine type G43.909 [facility] [address] [place] [address] 05/17/2024 Tank Phelps Migraine without sta tus migrainosus, not intractable, unspecified migraine type G43.909 [facility] [address] [place] [address] 05/22/2024 Tank Lopezring Anxiety F41.9 [facility] [address] [place] [address] 06/01/2024 Tank Lopezring [facility] [address] [place] [address] 06/05/2024 Tank Phelps Other intervertebral disc degeneration, 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 [facility] [address] [place] [address] 06/05/2024 Tank Phelps Anemia, unspecified D64.9 and Pain in thoracic spine M54.6 [facility] [address] [place] [address] 05/08/2024 Tank Lopezring Hypokalemia E87.6 [facility] [address] [place] [address] 11/28/2024 Tank Loepzring Intractable migraine without aura and without status migrainosus G43.019 [facility] [address] [place] [address] 09/02/2024 Tank Phelps Encounter for Medica re annual wellness exam Z00.00 ; Localized edema R60.0 ; Acquired hypothyroidism E03.9 ; Intractable migraine without aura and without status migrainosus G43.019 ; Spondylosis without myelopathy or radiculopathy, lumbar region M47.816 ; Pain in left foot M79.672 ; Overweight E66.3 ; Body mass index [BMI] 28.0-28.9, adult Z68.28 ; Encounter for immunization Z23 ; Current mild episode of major depressive disorder without prior episode F32.0 ; Prediabetes R73.03 ; Hypokalemia E87.6 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 [facility] [address] [place] [address] 01/08/2025 Tank Phelps Other intervertebral disc degeneration, 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 ; Overweight E66.3 ; Body mass index [BMI] 27.0-27.9, adult Z68.27 ; Other abnormalities of gait and mobility R26.89 and Paresthesia of skin R20.[address] [address] 01/22/2025 Tank Lopezring Other seasonal aller gic rhinitis J30.2 ; Intractable migraine without aura and without status migrainosus G43.019 ; Overweight E66.3 ; Body mass index [BMI] 27.0-27.9, adult Z68.27 ; Hypo-osmolality and hyponatremia E87.1 and Hypokalemia E87.6 [facility] [address] [place] [address] 02/21/2025 Tank Phelps Intractable migraine without aura and without status migrainosus G43.019 ; Other intervertebral disc displacement, 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 ; Ingrowing nail L60.0 ; Abnormal coagulation profile R79.1 ; Overweight E66.3 and Body mass index [BMI] 25.0-25.9, adult Z68.[address] [address] 03/05/2025 Tank Lopezring Overweight E66.3 ; B ken mass index [BMI] 25.0-25.9, adult Z68.25 and Ingrowing nail L60.[address] [address] 03/19/2025 Tank Phelps Intractable migraine without aura and without status migrainosus G43.019 ; Other sites of candidiasis B37.89 ; Overweight E66.3 ; Body mass index [BMI] 25.0-25.9, adult Z68.25 ; Localized edema R60.0 and Other intervertebral disc displacement, 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 [address] 04/16/2025 Tank Phelps Localized edema R60. 0 ; Encounter for screening mammogram for malignant neoplasm of breast Z12.31 and Other sites of candidiasis B37.[address] [address] 09/23/2024 Tank Phelps Pain in left hand M7 9.642 ; Abnormal weight gain R63.5 ; Acquired hypothyroidism E03.9 ; Overweight E66.3 ; Body mass index [BMI] 28.0-28.9, adult Z68.28 and Essential (primary) hypertension I10 [address] [address] 10/24/2024 Tank Phelps Other sites of sidra diasis B37.89 ; Other allergic rhinitis J30.89 ; Primary insomnia F51.01 ; Abnormal weight gain R63.5 ; Overweight E66.3 ; Body mass index [BMI] 27.0-27.9, adult Z68.27 and Hemorrhage, not elsewhere classified R58 [address] [address] 10/17/2024 Tank Phelps Other sites of sidra diasis B37.89 ; Generalized anxiety disorder F41.1 ; Lumbar spondylolysis M43.06 ; Other intervertebral disc degeneration, 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 ; Overweight E66.3 ; Body mass index [BMI] 28.0-28.9, adult Z68.28 ; Laceration without foreign body of other part of head, initial encounter S01.81XA ; Laceration without foreign body of nose, initial encounter S01.21XA ; History of falling Z91.81 ; Other injury of unspecified body region, initial encounter T14.8XXA ; Localized swelling, mass and lump, unspecified R22.9 ; Contusion of other part of head, initial encounter S00.83XA and Contusion of right knee, initial encounter S80.01XA [facility] [address] [place] [address] 11/22/2024 Tank Phelps Abnormal weight gain R63.5 ; Intractable migraine without aura and without status migrainosus G43.019 ; Other sites of candidiasis B37.89 ; Overweight E66.3 ; Body mass index [BMI] 28.0-28.9, adult Z68.28 ; Tremor, unspecified R25.1 ; Other seasonal allergic rhinitis J30.2 ; Pain in thoracic spine M54.6 ; Other chronic pain G89.29 and Other abnormalities of gait and mobility R26.89 [facility] [address] [place] [address] 12/20/2024 Tank Phelps Overweight E66.3 ; B ken mass index [BMI] 28.0-28.9, adult Z68.28 ; Abnormal weight gain R63.5 ; Hypokalemia E87.6 ; Hypo-osmolality and hyponatremia E87.1 ; Epistaxis R04.0 and Other intervertebral disc degeneration, 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 [facility] [address] [place] [address] 02/06/2025 Tank Phelps Other sites of sidra diasis B37.89 ; Current mild episode of major depressive disorder without prior episode F32.0 ; Other constipation K59.09 ; Overweight E66.3 ; Body mass index [BMI] 26.0-26.9, adult Z68.26 and Other intervertebral disc degeneration, 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 [facility] [address] [place] [address] 05/20/2024 Tank Phelps Other intervertebral disc degeneration, 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 ; Overweight E66.3 and Body mass index [BMI] 28.0-28.9, adult Z68.[address] [address] 05/31/2024 Tank Phelps 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 ; Current mild episode of major depressive disorder without prior episode F32.0 ; Primary insomnia F51.01 ; Overweight E66.3 ; Body mass index [BMI] 26.0-26.9, adult Z68.26 ; Hypokalemia E87.6 ; Personal history of other venous thrombosis and embolism Z86.718 ; Other specified disorders of nose and nasal sinuses J34.89 and Other intervertebral disc degeneration, 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 [address] 06/07/2024 Tank Phelps Intractable migraine without aura and without status migrainosus G43.019 ; Overweight E66.3 ; Body mass index [BMI] 27.0-27.9, adult Z68.27 ; Anemia, unspecified D64.9 ; Other intervertebral disc degeneration, 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 ; Localized edema R60.0 ; Hypo-osmolality and hyponatremia E87.1 ; Hypokalemia E87.6 ; Deficiency of other specified B group vitamins E53.8 ; Generalized anxiety disorder F41.1 and Chronic pain syndrome G89.[address] [address] 07/03/2024 Tank Phelps Hypokalemia E87.6 ; Intractable migraine without aura and without status migrainosus G43.019 ; Other intervertebral disc displacement, 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 ; Overweight E66.3 ; Body mass index [BMI] 27.0-27.9, adult Z68.27 ; Hypokalemia E87.6 ; Pain in left foot M79.672 and Localized edema R60.0 [facility] [address] [place] [address] 06/18/2024 Jacqueline Camacho [facility] [address] [place] [address] 12/24/2024 Jacqueline Camacho [facility] [address] [place] [address] 08/13/2024 Jacqueline Camacho Assessments Encounter Date Diagnosis (ICD Code) Assessment Notes Treatment Notes Treatment Clinical Notes Section Notes 05/31/2024 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.2) cbc to r/o ITP/TTP we will get results from labs done last month including TIAN to r/o autoimmune causes ?heme 05/31/2024 Current mild episode of major depressive disorder without prior episode (ICD-10 - F32.0) continue meds rec counseling due to chronic pain and her life situation as a result and lack of mobility 06/07/2024 Intractable migraine without aura and without status migrainosus (ICD-10 - G43.019) AREVALO log continue med oarrs ok 06/07/2024 Overweight (ICD-10 - E66.3) diet/exercise 07/03/2024 Hypokalemia (ICD-10 - E87.6) pt to get IV K today f/u heme for repeat bmp then rec K 10 meq 2 po bid and monitor labs diet 07/03/2024 Intractable migraine without aura and without status migrainosus (ICD-10 - G43.019) oarrs ok continue fioricet prn - erx done AREVALO log rec neuro ?aimovig 07/17/2024 Localized edema (ICD -10 - R60.0) labs elevate legs continue DANELLE barnard increase hctz to 12.5 mg 2 po daily and see if this helps bmp today d/w pt that we can change hctz to lasix but I am worried about her K being too low 07/17/2024 Cramp and spasm (ICD -10 - R25.2) labs hydrate 09/02/2024 Encounter for Medica re annual wellness exam (ICD-10 - Z00.00) flu shot today pn vaccine q5 years rec rsv vaccine rtc 1 year diet/exercise eye and dental exams yearly rec dexa in 2024 rec yemi in 2024 labs yearly colonoscopy in 202409/02/2024 Localized edema (ICD -10 - R60.0) continue hctz 12.5 mg daily and do an extra 12.5mg daily prn days that she is on her feet a lot erx hctz 25mg daily so she gets more medication but she will cut in half to use monitor bmp elevate legs low Na diet compression stockings 08/08/2024 Other intervertebral disc degeneration, 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) oars ok f/u pain management continue norco rtc 3 months monitor tox screen 08/08/2024 Overweight (ICD-10 - E66.3) diet/exercise 09/23/2024 Pain in left hand (ICD-10 - M79.642) labs - tx based on this but even if labs normal she still prob needs to see another rheum (not dr long) rec pt take pics if swelling occurs again ?OA vs RA vs gout vs another inflammatory dz 09/23/2024 Abnormal weight gain (ICD-10 - R63.5) oarrs ok diet/execise rtc 1 month 10/17/2024 Other sites of candidiasis (ICD-10 - B37.89) continue nystatin keep area dry and clean rtc prn 10/17/2024 Generalized anxiety disorder (ICD-10 - F41.1) oars ok rtc 3 months monitor tox screen pt understands risks with benzo and opioid 11/22/2024 Abnormal weight gain (ICD-10 - R63.5) diet/exercise rtc 1 month if one if covered no more adipex - not helping 11/22/2024 Intractable migraine without aura and without status migrainosus (ICD-10 - G43.019) rec neuro AREVALO log uncontrolled 10/24/2024 Other sites of candidiasis (ICD-10 - B37.89) continue nystatin 7 more days of diflucan rtc if not better keep area clean and dry 10/24/2024 Other allergic rhini tis (ICD-10 - J30.89) monitor stable on meds 12/20/2024 Overweight (ICD-10 - E66.3) diet/exercise 12/20/2024 Body mass index [BMI ] 28.0-28.9, adult (ICD-10 - Z68.28) 11/28/2024 Intractable migraine without aura and without status migrainosus (ICD-10 - G43.019) 02/06/2025 Other sites of candidiasis (ICD-10 - B37.89) continue nystatin powder keep area dry rtc prn 02/06/2025 Current mild episode of major depressive disorder without prior episode (ICD-10 - F32.0) rec counseling continue abilify for now - ?change to vraylar 01/08/2025 Other intervertebral disc degeneration, 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) oarrs ok monitor tox rtc 3 months stable f/u pain management as directed 01/08/2025 Overweight (ICD-10 - E66.3) diet/exercise 01/22/2025 Other seasonal aller gic rhinitis (ICD-10 - J30.2) rtc prn 01/22/2025 Intractable migraine without aura and without status migrainosus (ICD-10 - G43.019) AREVALO log stable 02/21/2025 Intractable migraine without aura and without status migrainosus (ICD-10 - G43.019) AREVALO log improved monitor for now 02/21/2025 Other intervertebral disc displacement, 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) oarrs ok continue back brace f/u pain management as directed 05/20/2024 Other intervertebral disc degeneration, 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) f/u pain management as directed erx lidoderm patches rec weight loss oarrs ok continue norco prn 05/20/2024 Overweight (ICD-10 - E66.3) diet/exercise 03/05/2025 Overweight (ICD-10 - E66.3) diet/exercise 03/05/2025 Body mass index [BMI ] 25.0-25.9, adult (ICD-10 - Z68.25) 03/19/2025 Intractable migraine without aura and without status migrainosus (ICD-10 - G43.019) AREVALO log stable 03/19/2025 Other sites of candidiasis (ICD-10 - B37.89) continue diflucan 200mg daily do a different antifungal keep area dry rtc prn 05/08/2024 Hypokalemia (ICD-10 - E87.6) 05/08/2024 Migraine without sta tus migrainosus, not intractable, unspecified migraine type (ICD-10 - G43.909) 05/17/2024 Migraine without sta tus migrainosus, not intractable, unspecified migraine type (ICD-10 - G43.909) 05/22/2024 Anxiety (ICD-10 - F41.9) 06/05/2024 Other intervertebral disc degeneration, 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) 06/05/2024 Anemia, unspecified (ICD-10 - D64.9) 06/05/2024 Pain in thoracic spi ne (ICD-10 - M54.6) oars ok pt states she is out of her norco 08/26/2024 Acquired hypothyroid ism (ICD-10 - E03.9) 08/28/2024 Pain in left foot (ICD-10 - M79.672) 09/09/2024 Other intervertebral disc degeneration, 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) 09/16/2024 Hypotension, unspecified (ICD-10 - I95.9) 09/19/2024 Pain in left hand (ICD-10 - M79.642) 10/02/2024 Pure hypercholesterolemia (ICD-10 - E78.00) 11/11/2024 Gastroesophageal ref lux disease without esophagitis (ICD-10 - K21.9) 11/27/2024 Intractable migraine without aura and without status migrainosus (ICD-10 - G43.019) 01/20/2025 Intractable migraine without aura and without status migrainosus (ICD-10 - G43.019) 01/24/2025 Intractable migraine without aura and without status migrainosus (ICD-10 - G43.019) 03/17/2025 Recurrent genital herpes simplex (ICD-10 - A60.00) 03/17/2025 Chronic fatigue, unspecified (ICD-10 - R53.82) 03/20/2025 Screening mammogram for breast cancer (ICD-10 - Z12.31) 04/16/2025 Localized edema (ICD -10 - R60.0) 04/16/2025 Encounter for screen ing mammogram for malignant neoplasm of breast (ICD-10 - Z12.31) 04/16/2025 Other sites of candidiasis (ICD-10 - B37.89) 03/19/2025 Overweight (ICD-10 - E66.3) diet/exercise 03/05/2025 Ingrowing nail (ICD- 10 - L60.0) verbal consent 1% lido without epi used to numb L great toe in H block fashion sterile technique lateral 1/2 of L great toenail removed bandage applied after bleeding stopped rtc prn call if s/s of infection tolerated well 05/20/2024 Body mass index [BMI ] 28.0-28.9, adult (ICD-10 - Z68.28) 02/21/2025 Ingrowing nail (ICD- 10 - L60.0) rtc partial removal of nail but wait until INR 2-3 01/22/2025 Overweight (ICD-10 - E66.3) diet/exercise 01/08/2025 Body mass index [BMI ] 27.0-27.9, adult (ICD-10 - Z68.27) 02/06/2025 Other constipation (ICD-10 - K59.09) diet fiber 12/20/2024 Abnormal weight gain (ICD-10 - R63.5) diet/exercise ozempic starter pack given to do 0.25mg qweek for 4 weeks then 0.5mg qweek for 2 weeks then get semiglutide 0.5mg dose online rtc 6 months monitor bmp 10/24/2024 Primary insomnia (ICD-10 - F51.01) sleep hygeine stable 11/22/2024 Other sites of candidiasis (ICD-10 - B37.89) continue nystatin erx diflucan to use prn flare ups keep area dry 10/17/2024 Lumbar spondylolysis (ICD-10 - M43.06) continue norco heat/massage 09/23/2024 Acquired hypothyroid ism (ICD-10 - E03.9) stable monitor labs 08/08/2024 Body mass index [BMI ] 27.0-27.9, adult (ICD-10 - Z68.27) 09/02/2024 Acquired hypothyroid ism (ICD-10 - E03.9) labs yearly - med change based on this stable 07/17/2024 Overweight (ICD-10 - E66.3) diet/exercise 07/03/2024 Other intervertebral disc displacement, 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) oars ok continue norco prn - erx done continue brace f/u pain management as directed 06/07/2024 Body mass index [BMI ] 27.0-27.9, adult (ICD-10 - Z68.27) 05/31/2024 Primary insomnia (ICD-10 - F51.01) sleep hygeine monitor stable 05/31/2024 Overweight (ICD-10 - E66.3) diet/exercise 06/07/2024 Anemia, unspecified (ICD-10 - D64.9) referred to heme recently for additional testing and tx options ?bone marrow bx needed monitor cbc 07/03/2024 Overweight (ICD-10 - E66.3) diet/exercise 07/17/2024 Body mass index [BMI ] 26.0-26.9, adult (ICD-10 - Z68.26) 09/02/2024 Intractable migraine without aura and without status migrainosus (ICD-10 - G43.019) oars ok rec neuro AREVALO log 08/08/2024 Hypokalemia (ICD-10 - E87.6) labs increase diet in K foods ?change hctz to aldactone 09/23/2024 Overweight (ICD-10 - E66.3) diet/exercise 10/17/2024 Other intervertebral disc degeneration, 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) oarrs ok f/u pain management as directed 11/22/2024 Overweight (ICD-10 - E66.3) diet/exercise 10/24/2024 Abnormal weight gain (ICD-10 - R63.5) oarrs ok pt doing leg exercises at home rtc 1 month diet/exercise 12/20/2024 Hypokalemia (ICD-10 - E87.6) monitor lab - heme to do 02/06/2025 Overweight (ICD-10 - E66.3) diet/exercise 01/08/2025 Other abnormalities of gait and mobility (ICD-10 - R26.89) fall precautions continue PT 01/22/2025 Body mass index [BMI ] 27.0-27.9, adult (ICD-10 - Z68.27) 02/21/2025 Abnormal coagulation profile (ICD-10 - R79.1) f/u clinic as directed goal 2-3 03/19/2025 Body mass index [BMI ] 25.0-25.9, adult (ICD-10 - Z68.25) 03/19/2025 Localized edema (ICD -10 - R60.0) elevate legs diet compression stockings change hctz to just 25mg daily add aldactone monitor bmp and K 02/21/2025 Overweight (ICD-10 - E66.3) diet/exercise continue online semiglutide but d/w pt buderers if she wants it cheaper 01/22/2025 Hypo-osmolality and hyponatremia (ICD-10 - E87.1) diet rec NaCl otc daily ?spot Na urine - ?SIADH 01/08/2025 Paresthesia of skin (ICD-10 - R20.2) d/w pt that we can try lyrica if she wishes 02/06/2025 Body mass index [BMI ] 26.0-26.9, adult (ICD-10 - Z68.26) 12/20/2024 Hypo-osmolality and hyponatremia (ICD-10 - E87.1) diet monitor lab 10/24/2024 Overweight (ICD-10 - E66.3) diet/exercise 11/22/2024 Body mass index [BMI ] 28.0-28.9, adult (ICD-10 - Z68.28) 10/17/2024 Overweight (ICD-10 - E66.3) diet/exercise 09/23/2024 Body mass index [BMI ] 28.0-28.9, adult (ICD-10 - Z68.28) 08/08/2024 Pain in left foot (ICD-10 - M79.672) rec xray - pt to call if wishes rec podiatry - call if wishes rec shoe inserts no nsaids due to coumadin use tylenol prn prob plantar fascitis/heel spur 09/02/2024 Spondylosis without myelopathy or radiculopathy, lumbar region (ICD-10 - M47.816) f/u pain management brace exercises 07/03/2024 Body mass index [BMI ] 26.0-26.9, adult (ICD-10 - Z68.26) 06/07/2024 Other intervertebral disc degeneration, 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) oarrs ok continue norco d/w pt that we can refer to another pain management doctor but pt states that injections havent helped her lately and they werent giving her the norco f/u dr hernandez - neurosurgeon - as directed back brace d/w pt that she will have to deal with chronic pain the rest of her life and hopefully we can make it tolerable with meds/?surgery/PT prn flare ups continue flexeril prn 05/31/2024 Body mass index [BMI ] 26.0-26.9, adult (ICD-10 - Z68.26) 05/31/2024 Hypokalemia (ICD-10 - E87.6) continue for now and get results of labs done at [facility] and adjust based on this diet 06/07/2024 Localized edema (ICD -10 - R60.0) elevate leg rec DANELLE hose ok to do extra hctz prn worse edema d/w pt that we can do L LE venous doppler to r/o DVT - I rec d/w pt that I wouldnt think she has a DVT since she is on coumadin but her INR has been labile lately so she could d/w pt that I still would change from coumadin to eliquis/xarelto pt to hold off on US and changing med call or rtc if worsens 07/03/2024 Iron deficiency anem ia, unspecified (ICD-10 - D50.9) continue otc iron f/u heme for labs and hopefully IV iron infusions monitor 09/02/2024 Pain in left foot (ICD-10 - M79.672) call if wishes PT or podiatry no nsaids due to coumadin use 08/08/2024 Localized edema (ICD -10 - R60.0) continue compression stockings continue hctz for now but ?change to aldactone elevate legs rtc prn due to venous insufficiency 09/23/2024 Essential (primary) hypertension (ICD-10 - I10) bp check daily goal <130/80 diet/exercise monitor bmp and urine microalbumin rtc 3 months uncontrolled here today increase med if not at goal 10/17/2024 Body mass index [BMI ] 28.0-28.9, adult (ICD-10 - Z68.28) 11/22/2024 Tremor, unspecified (ICD-10 - R25.1) ?neuro d/w pt mysoline if wishes 10/24/2024 Body mass index [BMI ] 27.0-27.9, adult (ICD-10 - Z68.27) 12/20/2024 Epistaxis (ICD-10 - R04.0) rec saline NS monitor INR at coumadin clinic - goal 2-3 d/w pt that we can refer to ENT for a better eval and possible cautery packing removed from R nare without difficulty 02/06/2025 Other intervertebral disc degeneration, 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) f/u pain management as directed oarrs ok continue norco continue back brace 01/22/2025 Hypokalemia (ICD-10 - E87.6) stable monitor bmp 02/21/2025 Body mass index [BMI ] 25.0-25.9, adult (ICD-10 - Z68.25) 03/19/2025 Other intervertebral disc displacement, 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) f/u pain management oarrs ok stable but overall progressing downward 12/20/2024 Other intervertebral disc degeneration, 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) continue PT and pain management for injections continue back brace 10/24/2024 Hemorrhage, not elsewhere classified (ICD-10 - R58) monitor for now as they should resolve over the next few weeks to a few months for her R UE rtc if R UE lump continues 11/22/2024 Other seasonal aller gic rhinitis (ICD-10 - J30.2) rec astelin NS and saline NS ?singulair ?ENT 10/17/2024 Laceration without foreign body of other part of head, initial encounter (ICD-10 - S01.81XA) keep clean sutures removed - 5 tolerated well call if s/s of infection 09/02/2024 Overweight (ICD-10 - E66.3) diet/exercise 06/07/2024 Hypo-osmolality and hyponatremia (ICD-10 - E87.1) repeat as well as a spot urine sodium ?due to hctz vs SIADH vs ? 05/31/2024 Personal history of other venous thrombosis and embolism (ICD-10 - Z86.718) continue coumadin and f/u clinic as directed for INR adjustmenet - goal 2-3 d/w pt that I think she should go on xarelto or eliquis as she is just on anticoagulation for DVT history and not anything else d/w pt that changing meds would allow for more consistent protection from DVT/PE's as well as no lab monitoring pt states she is worried about the meds and since she wouldnt have to do labs that she worries about if they would be working or not - I told her that with her labile INR's that she isnt fully protected at times anyway now pt will stick with coumadin 05/31/2024 Other specified disorders of nose and nasal sinuses (ICD-10 - J34.89) rec small bandage over the irritated area and monitoring for now she has already had her glasses adjusted by her eye doctor to help this call if ulcerates 06/07/2024 Hypokalemia (ICD-10 - E87.6) continue K 2 po daily for now monitor lab diet 09/02/2024 Body mass index [BMI ] 28.0-28.9, adult (ICD-10 - Z68.28) 10/17/2024 Laceration without foreign body of nose, initial encounter (ICD-10 - S01.21XA) keep clean sutures removed - 8 tolerated well call if s/s of infection 11/22/2024 Pain in thoracic spi ne (ICD-10 - M54.6) f/u PT and pain mangement and meds stable 11/22/2024 Other chronic pain (ICD-10 - G89.29) 10/17/2024 History of falling (ICD-10 - Z91.81) monitor balance fall precautions we will get copy of xrays and ER note 09/02/2024 Encounter for immunization (ICD-10 - Z23) 06/07/2024 Deficiency of other specified B group vitamins (ICD-10 - E53.8) monitor lab 05/31/2024 Other intervertebral disc degeneration, 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) f/u pain management we will get copy of MRI done recently f/u neurosugeon for options 06/07/2024 Generalized anxiety disorder (ICD-10 - F41.1) oarrs ok continue med stable 09/02/2024 Current mild episode of major depressive disorder without prior episode (ICD-10 - F32.0) rec counseling ?psych uncontrolled continue elavil 10/17/2024 Other injury of unspecified body region, initial encounter (ICD-10 - T14.8XXA) montior and rtc if not resolving in the next 2-3 weeks 11/22/2024 Other abnormalities of gait and mobility (ICD-10 - R26.89) continue PT fall precautions 10/17/2024 Localized swelling, mass and lump, unspecified (ICD-10 - R22.9) monitor lumps on elbow and knee ?hematomas - no bruising noted ice 09/02/2024 Prediabetes (ICD-10 - R73.03) monitor A1c yearly stable diet/exercise eye exam yearly - dilated 06/07/2024 Chronic pain syndrom e (ICD-10 - G89.4) see above rec counseling due to MDD from chronic pain which will be assisted for pt 09/02/2024 Hypokalemia (ICD-10 - E87.6) monitor lab - tx change based on this diet stable 10/17/2024 Contusion of other p art of head, initial encounter (ICD-10 - S00.83XA) monitor for s/s of concussion and call tylenol prn 10/17/2024 Contusion of right knee, initial encounter (ICD-10 - S80.01XA) tylenol prn monitor and call if not better 09/02/2024 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 (ICD-10 - Z79.01) f/u coumadin clinic - goal INR 2-3 09/02/2024 Other no evidence of DM or CKD-3 anymore based on recent labs above Plan Of Treatment Pending Test Test Name Order Date SODIUM (NA), URINE - RANDOM 06/07/2024 CBC WITH DIFF 09/23/2024 CBC WITH DIFF 05/31/2024 BMP (BASIC MET PANEL - W/GFR) 06/07/2024 BMP (BASIC MET PANEL - W/GFR) 05/08/2024 MAMM SCREEN BILAT TU 3D GLOBAL* 2024 MAMM SCREEN BILAT TU 3D GLOBAL* 2024 CBC AUTO DIFF 07/02/2024 CBC AUTO DIFF 08/07/2024 CBC AUTO DIFF 12/18/2024 FERRITIN 12/18/2024 FERRITIN 07/02/2024 FERRITIN 08/07/2024 FOLATE 08/07/2024 FOLATE 07/02/2024 FOLATE 12/18/2024 IRON AND TIBC 08/07/2024 IRON AND TIBC 12/18/2024 IRON AND TIBC 07/02/2024 MAGNESIUM 12/24/2024 PROF 14(COMP METB) 12/24/2024 PROF CHEM 8 (BAS METB) 12/18/2024 PROF CHEM 8 (BAS METB) 08/07/2024 PROF CHEM 8 (BAS METB) 07/02/2024 VITAMIN D 25 [place] 12/18/2024 Manual Differential 08/07/2024 Vitamin B12 08/07/2024 Vitamin B12 07/02/2024 Vitamin B12 12/18/2024 Next Appt Details Provider Name:Jacqueline Camacho , 05/06/2025 01:00:00 PM, [address] [place], [address], Insurance Providers Payer Name Payer Address Payer Phone Subscriber Number Group Number Insured Name Patient Relationship to Insured Coverage Start Date Coverage End Date [employer] PPO PLUS LOCAL PLAN [address] [place] [address] [id number] Sandeep Valente Spouse - patient is the spouse of the insured 9 [place] [address] [place] [address] [id number] Amita Valente Self - patient is the insured 4 Medications Administered Medication Instructions Date of Administration Dosage Notes Cyanocobalamin 09/07/2022 1 mL Kenalog-40 02/05/2024 40 mL Ketorolac Tromethamine 03/08/2024 60 mg Ketorolac Tromethamine 11/28/2024 60 mg Triamcinolone 40 mg/ml 02/03/2023 1 mL Triamcinolone 40 mg/ml 04/27/2023 40 mg Triamcinolone 40 mg/ml 03/08/2024 40 mg Medical (General) History Medical History History ICD Code allergic rhinitis anticoagulation migraines h/o DVT HTN barretts colitis ckd-3 DM-2 depression T DDD B12 deficiency insomnia GERD hypothyroidism osteopenia hyperlipidemia hypokalemia COPD lumbar spondylosis recurrent genital HSV IBS-C PVD/PAD Surgical History Surgery Date(Month/Year) Cholecystectomy Appendectomy Esophagogastroduodenoscopy-Dr Spencer hernia repair with mesh-ventral carpal tunnel release hysterctomy with BSO delivery Colonoscopy-normal - repeat in 5 years 0 04/2020 Colonoscopy-repeat in 5 years 05/2016 IVC Filter 2008 Bladder suspension right hand surgery 04/06/2020
--- OUTSIDE RECORDS SUMMARY | 2025-04-30 12:09 | XMS_ITS | Encounter Summary ---
Author Organization [facility] Address [address], [address] [place] [address] Care Team Providers Care Hand Crown Pouncer Name Role Phone Tank Phelps MD Primary Care Provider [phone] Encounter Details Date Type Department Care Team (Late st Contact Info) Description 10/31/2013 Post-op Telephone [facility] General Surgery [address] [place] [address] Kade Joseph, RN Social History Tobacco Use Types Packs/Day [...] on filedocumented in this encounter Care Teams Hand Crown Pouncer Relationship Specialty Start Date End Date Tank Phelps MD [address] [place] [id number] PCP - General 10/23/13 documented as of this encounter
[2025-04-30 13:18] LABS: Hematocrit 40.6 % (36.0-48.0); Hemoglobin 13.5 g/dL (12.0-16.0); Immature Granulocytes Abs Auto 0.02 10^3/uL (0.00-0.03); Immature Granulocytes Pct Auto 0.4 % (0.0-0.5); Lymphocytes Absolute Auto 0.9 10^3/uL (1.2-3.8); Mean Corpuscular HGB Conc 33.3 g/dL (29.9-35.2); Mean Corpuscular Hemoglobin 29.2 pg (26.7-34.0); Mean Corpuscular Volume 87.9 fL (81.0-99.0); Platelet Count 430 10^3/uL (150-450); Red Blood Count 4.62 10^6/uL (4.20-5.40); White Blood Count 5.7 10^3/uL (4.0-11.0)
[2025-04-30 13:28] LABS: Alanine Aminotransferase 28 U/L (14-59); Albumin Globulin Ratio 0.7; Albumin Level 3.0 g/dL (3.4-5.0); Alkaline Phosphatase 92 U/L (46-116); Anion Gap 9.7; Aspartate Amino Transferase 24 U/L (15-37); Blood Urea Nitrogen 6.0 mg/dL (7.0-18.0); Calcium 9.5 mg/dL (8.5-10.1); Carbon Dioxide 29.3 mmol/L (21.0-32.0); Chloride 98 mmol/L (98-107); Estimated GFR (African America >60 (>=60 mL/min/1.73m^2); Estimated GFR (Non-African Ame >60 (>=60 mL/min/1.73m^2); Globulin 4.2 g/dL; Glucose 92 mg/dL (74-106); Potassium 4.0 mmol/L (3.5-5.1); Sodium 133 mmol/L (136-145); Total Protein 7.2 g/dL (6.4-8.2)
[2025-04-30 13:31] LABS: Iron 79.0 ug/dL (50.0-170.0); Percent Iron Saturation 27.5 %; Total Iron Binding Capacity 287.0 ug/dL (250.0-450.0)
[2025-04-30 14:43] LABS: Ferritin 41.0 ng/mL (8.0-252.0)
[2025-05-01 04:07] LABS: Vitamin B12 774 pg/mL (232-1245)
== END 2025-04-30 12:04 | disposition home or self-care (01) ==
LOC: LAB 12:06
PROVIDERS: PCP Family Medicine; Visit Provider Internal Medicine Hematology & Oncology
DX: D64.9 Anemia, unspecified (principal); D50.9 Iron deficiency anemia, unspecified; K90.9 Intestinal malabsorption, unspecified
CPT/HCPCS: 36415; 80053; 82306; 82607; 82728; 83540; 83550; 85025

== ENCOUNTER 2025-05-06 07:27 | Outpatient (RCR) | payer BC, MEDICARE, SELFPAY | END 2025-05-25 23:59 | disposition home or self-care (01) | LOC: HEMC 07:27 | PROVIDERS: PCP Family Medicine; Visit Provider Internal Medicine Hematology & Oncology | DX: Z12.31 Encounter for screening mammogram for malignant neoplasm of breast (principal); Z80.3 Family history of malignant neoplasm of breast; Z80.1 Family history of malignant neoplasm of trachea, bronchus and lung; Z80.7 Family history of other malignant neoplasms of lymphoid, hematopoietic and related tissues; Z80.41 Family history of malignant neoplasm of ovary; Z87.891 Personal history of nicotine dependence; D64.9 Anemia, unspecified; D50.9 Iron deficiency anemia, unspecified; K90.9 Intestinal malabsorption, unspecified; Z79.01 Long term (current) use of anticoagulants; K21.9 Gastro-esophageal reflux disease without esophagitis | CPT/HCPCS: 77063; 77067; G0463 ==

== ENCOUNTER 2025-05-06 11:37 | Outpatient (OUT) | payer BC, MEDICARE, SELFPAY ==
--- NOTE | 2025-05-06 | MM_ITS ---
Patient Name: MADAN PERRY MR#: [id number] : 1960 Exam Date: 05/06/2025 Ordering Doctor: DR LAVERNE [facility] RADIOLOGY REPORT PROCEDURE: MM TOMOSYNTHESIS SCREENING BI COMPARISON: MM TOMOSYNTHESIS SCREENING BI, 01/29/2024. MG MAMM SCREEN 3D TANIA CAD, 12/19/2022. MG MAMM SCREEN 3D TANIA CAD, 12/16/2021. MG MAMM TANIA SCRN W CAD DIG, 02/11/2013. INDICATIONS: Z12.31 Encounter for screening mammogram Calculator Name NCI Breast Cancer Risk Assessment Tool 5 Year Breast Cancer Risk 3.10% Lifetime Breast Cancer Risk 11.00% Personal Breast Cancer No Personal Ovarian Cancer No Treatments None Family Cancers Mother with breast cancer at age 54; Mother with lung cancer at age 72; Brother with non hodgkins lymphoma cancer at age 20; Grandfather-maternal with lymphoma cancer at age ~48; Sister with ovarian cancer at age 55. LOCATION: [facility] BREAST COMPOSITION: There are scattered areas of fibroglandular density. FINDINGS: DIAGNOSTIC CATEGORY 1--NEGATIVE. RIGHT BREAST: No significant suspicious finding. LEFT BREAST: No significant suspicious finding. RECOMMENDATIONS: ROUTINE MAMMOGRAM AND CLINICAL EVALUATION IN 12 MONTHS. PLEASE NOTE: A NORMAL MAMMOGRAM DOES NOT EXCLUDE THE POSSIBILITY OF BREAST CANCER. A CLINICALLY SUSPICIOUS PALPABLE LUMP SHOULD BE BIOPSIED. Dictated by: Vince Kline DO on 05/06/2025 at 16:11 Approved by: Vince Kline DO on 05/06/2025 at 16:12
== END 2025-05-06 11:38 | disposition home or self-care (01) ==
LOC: MAMMO 11:37
PROVIDERS: PCP Family Medicine; Visit Provider Family Medicine
DX: Z12.31 Encounter for screening mammogram for malignant neoplasm of breast (principal); Z80.3 Family history of malignant neoplasm of breast; Z80.1 Family history of malignant neoplasm of trachea, bronchus and lung; Z80.7 Family history of other malignant neoplasms of lymphoid, hematopoietic and related tissues; Z80.41 Family history of malignant neoplasm of ovary
CPT/HCPCS: 77063; 77067

== ENCOUNTER 2025-05-26 03:05 | Outpatient (RCR) | payer BC, MEDICARE, SELFPAY | END 2025-06-24 15:19 | disposition home or self-care (01) | LOC: MM 03:05 | PROVIDERS: PCP Family Medicine; Visit Provider Internal Medicine | DX: Z51.81 Encounter for therapeutic drug level monitoring (principal); Z79.01 Long term (current) use of anticoagulants | CPT/HCPCS: 85610; G0463 ==

== ENCOUNTER 2025-06-25 05:20 | Outpatient (RCR) | payer BC, MEDICARE, SELFPAY | END 2025-07-25 23:59 | disposition home or self-care (01) | LOC: MM 05:20 | PROVIDERS: PCP Family Medicine; Visit Provider Internal Medicine | DX: Z51.81 Encounter for therapeutic drug level monitoring (principal); Z79.01 Long term (current) use of anticoagulants | CPT/HCPCS: 85610; G0463 ==

== ENCOUNTER 2025-07-29 11:56 | Outpatient (RCR) | payer BC, MEDICARE, SELFPAY | END 2025-08-24 23:59 | disposition home or self-care (01) | LOC: MM 11:56 | PROVIDERS: PCP Family Medicine; Visit Provider Family Medicine | DX: Z51.81 Encounter for therapeutic drug level monitoring (principal); Z79.01 Long term (current) use of anticoagulants; I82.409 Acute embolism and thrombosis of unspecified deep veins of unspecified lower extremity | CPT/HCPCS: 85610; G0463 ==

== ENCOUNTER 2025-08-25 11:57 | Outpatient (RCR) | payer BC, MEDICARE, SELFPAY | END 2025-09-24 12:54 | disposition home or self-care (01) | LOC: MM 11:57 | PROVIDERS: PCP Family Medicine; Visit Provider Internal Medicine | DX: Z51.81 Encounter for therapeutic drug level monitoring (principal); Z79.01 Long term (current) use of anticoagulants; I82.409 Acute embolism and thrombosis of unspecified deep veins of unspecified lower extremity | CPT/HCPCS: 85610; G0463 ==